=== PATIENT | male | born 1965 | race Caucasian/White ===

== ENCOUNTER 2024-06-17 08:25 | Emergency (ER) | payer BC, SELFPAY ==
[2024-06-17 08:47] VITALS: BP 138/74; PULSE 100; RESP 16; TEMP 36.9; O2SAT 96
--- NOTE | 2024-06-17 08:48 | ED.URI ---
HPI - URI/Sore Throat General Chief Complaint: Upper Respiratory Infection Stated Complaint: Chest and Head Cold Source: patient and RN notes reviewed Mode of arrival: ambulatory Limitations: no limitations History of Present Illness HPI Narrative: 59-year-old male presented for complaint of headache, body aches, sinus pressure/congestion, cough, fever/chills. Onset 2 days. Taking Mucinex and Sudafed. Denies sob, wheezing, n/v/d. Patient resides in [place] is traveling to [place] for hunting. elicited complaint: cough Related Data Allergies Allergy/AdvReac Type Severity Reaction Status Date / Time No Known Allergies Allergy Verified 06/17/24 08:49 Review of Systems Review of Systems: CONSTITUTIONAL: Endorses malaise, chills, sweats, fever EYES: Denies visual changes, redness, or discharge ENT: Reports rhinorrhea, congestion, sore throat CARDIOVASCULAR: Denies chest pain, palpitations, edema RESPIRATORY: Reports cough, post nasal drainage. Denies dyspnea GASTROINTESTINAL: Denies abdominal pain, nausea, vomiting, diarrhea MUSCULOSKELETAL: Endorses myalgia Exam Narrative: GENERAL: mildly Ill-appearing, nontoxic no acute distress. HEAD: Normocephalic EYES: PERRLA, conjunctivae clear ENT: Mucous membranes moist. Oropharynx not erythematous without lesions or exudate, no drooling, no hoarseness, no trismus, uvula midline. No tripod positioning, muffled voice, soft palate or pharyngeal wall bulging NECK: Supple. No lymphadenopathy CHEST: Clear to auscultation, breath sounds equal. No wheezing, rhonchi, rales, or stridor. No respiratory distress, speaks in full sentences. HEART: Regular rate and rhythm. No murmur heard. SKIN: Warm, dry, no rash. NEURO: Alert and oriented x3. PSYCH: Normal mood and affect Course Course Emergency Course: Patient is aware of diagnosis, understands and agrees to treatment plan. Anticipatory guidance given. Patient agrees to follow-up as directed and is aware of reasons to seek care at the emergency department. Portions of this record may have been created with voice recognition software Level of Care: Express Care Visit Vital Signs Vital signs: Vital Signs Temperature 98.5 F 06/17/24 08:47 Pulse Rate 100 06/17/24 08:47 Respiratory Rate 16 06/17/24 08:47 Blood Pressure 138/74 06/17/24 08:47 Pulse Oximetry 96 06/17/24 08:47 Temperature 98.5 F 06/17/24 08:47 Pulse Rate 100 06/17/24 08:47 Respiratory Rate 16 06/17/24 08:47 Blood Pressure 138/74 06/17/24 08:47 Pulse Oximetry 96 06/17/24 08:47 reviewed MDM - URI/Sore Throat MDM Narrative Medical decision making narrative: Discussed physical exam findings. POS flu, supportive measures and signs/symptoms to go to the ER. Pt is appropriate for outpt treatment and f/u. Differential Diagnosis Differential diagnosis: Likely upper respiratory infection, sinusitis and viral infection Lab Data Labs: Lab Results 06/17/24 06/17/24 06/17/24 Range/Units 08:50 08:51 08:52 POC Influenza A Ag Positive Positive (Negative) POC Influenza B Ag Negative Negative (Negative) POC SARS CoV-2 Ag Negative (Negative) Discharge Plan Discharge Clinical Impression: Influenza Patient Disposition: Home, Self-Care Condition: Stable Instructions: Influenza (ED) Additional Instructions: Influenza positive You should avoid crowds until you are fever free for 24 hours without the use of fever reducing medications, or the symptoms are improved Rest. Drink plenty of fluids. Tylenol 1000mg every 8 hours as needed for pain/fever Recommend Flonase spray and Zyrtec (or Claritin/Vale) for sinus pressure/congestion over the counter Cough syrup may cause drowsiness; avoid driving or take it at night time. Follow up with your primary care provider as needed in 3 days Go to the ER for worsening symptoms or concerns Patient Language: Bermudian Prescriptions: New prednisone 50 mg tablet 50 mg PO DAILY Qty: 5 0RF Follow-up/Referrals: UNKNOWN,DOCTOR [Primary Care Provider] - Time of Disposition: 09:02
[2024-06-17 08:53] LABS: EDINFLUASCREEN Positive (Negative); EDINFLUBSCREEN Negative (Negative)
[2024-06-17 08:53] LABS: EDINFLUASCREEN Positive (Negative); EDINFLUBSCREEN Negative (Negative)
[2024-06-17 08:54] LABS: EDCOVIDSCREEN Negative (Negative)
--- OUTSIDE RECORDS SUMMARY | 2024-06-24 04:34 | XMS_ITS | Encounter Summary ---
Author Organization [facility] Address [address] [place] [address] Care Team Providers Care Spark Plug Assembler Name Role Phone Juan Haddad MD Unavailable [phone] Trey Jennings MD Unavailable [phone] Txfr Provider Family [facility], Temporary Primary Care Provider Reason for Referral * Test/Procedure/Other (Routine) - Closed Specialty Diagnoses / Procedures Referred By Contac t Referred To Contact Diagnoses Thoracic spine pain Procedures MR THORACIC SPINE WO CONTRAST Andrew Staley PA-C [address] [place] [address] Phone: tel: fax: Group, Mri [address] [place] [address] Phone: tel: fax: Referral ID Status Reason Start Date Expiration Date Visits Re quested Visits Authorized [id number] Closed 01/27/2024 02/26/2024 1 1 * Test/Procedure/Other (Routine) - Closed Specialty Diagnoses / Procedures Referred By Contac t Referred To Contact Radiology Diagnoses Low back pain, unspecified back pain laterality, unspecified chronicity, unspecified whether sciatica present Procedures XR LUMBAR SPINE 2 OR 3 VW Andrew Staley PA-C [address] [place] [address] Phone: tel: fax: Referral ID Status Reason Start Date Expiration Date Visits Re quested Visits Authorized [id number] Closed 11/10/2023 11/09/2024 1 1 * Test/Procedure/Other (Routine) - Closed Specialty Diagnoses / Procedures Referred By Contcarlie t Referred To Contact Radiology Diagnoses Low back pain, unspecified back pain laterality, unspecified chronicity, unspecified whether sciatica present Procedures XR THORACIC SPINE 2 VW Andrew Staley PA-C [address] [place] [address] Phone: tel: fax: Referral ID Status Reason Start Date Expiration Date Visits Re quested Visits Authorized [id number] Closed 11/10/2023 11/09/2024 1 1 Reason for Visit * Reason Comments Back Pain Encounter Details Date Type Department Care Team (Latest Contact Info) Description 11/10/2023 11:30 AM EDT Office Visit [facility] [address] [place] [address] Andrew Staley PA-C [address] [place] [address] Chronic pain syndrome (Primary Dx); Low back pain, unspecified back pain laterality, unspecified chronicity, unspecified whether sciatica present; Thoracic spine pain Discharge Disposition: Home/Self Care Social History Tobacco Use Types Packs/Day Years Used Date Smoking Tobacco: Never Smokeless Tobacco: Current Chew Comments:chewing tobacco 2 c ans/week Alcohol Use Standard Drinks/Week Comments No 0 (1 standard drink = 0.6 oz pur e alcohol) Social Connection and Isolation Panel [NHANES] A nswer Date Recorded Frequency of Communication with Friends and Fami ly Not on file 09/30/2020 Frequency of Social Gatherings with Friends and Family Not on file 09/30/2020 Attends Cheondoism Services Not on file 09/30 Active Member of Clubs or Organizations Not on f ile 09/30/2020 Attends Club or Organization Meetings Not on brianna e 09/30/2020 Are you , , di vorced, , never , or living with a partner? 09/30/2020 AUDIT-C Answer Date Recorded Q1: How often do you have a drink containing alc ohol? Never 03/03/2021 Average Number of Drinks Not on file 021 Q3: How often do you have si x or more drinks on one occasion? Never 03/03/2021 PRAPARE - Transportation Answer Date Re corded In the past 12 months, has l ack of transportation kept you from medical appointments or from getting medications? No 05/20 In the past 12 months, has l ack of transportation kept you from meetings, work, or from getting things needed for daily living? No 06/07/2020 Intimate Partner Violence Answer Date R ecorded Within the last year, have y ou been afraid of your partner, ex-partner or family member? Not on file 10/02/2023 Within the last year, have y ou been humiliated or emotionally abused in other ways by your partner, ex-partner or family member? Not on file 10/02/2023 Within the last year, have y ou been kicked, hit, slapped, or otherwise physically hurt by your partner, ex-partner or family member? Not on file 10/02/2023 Within the last year, have y ou been raped or forced to have any kind of sexual activity by your partner, ex-partner or family member? Not on file 10/02/2023 Depression Answer Date Recorded PHQ-9 Total Score 5 06/07/2020 Sex and Gender Information Value Date Recorded Sex Assigned at Not on file Legal Sex Male 11:25 PM EST Gender Identity Male 11/21/2019 7:11 PM EDT Sexual Orientation Not on file documented as of this encounter Last Filed Vital Signs Vital Sign Reading Time Taken Comments Blood Pressure - - Pulse - - Temperature - - Respiratory Rate - - Oxygen Saturation - - Inhaled Oxygen Concentration - - Weight 92.1 kg (203 lb) 11/10/2023 11:39 AM EDT Height 182.9 cm (6') 11/10/2023 11:39 AM EDT Body Mass Index 27.53 11/10/2023 11:39 AM EDT documented in this encounter Progress Notes * Andrew Staley PA-C - 11/10/2023 11:38 AM EDT Subjective: ?? How long has the patient had pain: Chronic ?? Patient currently working: Yes : ?? Restrictions: Yes ?? Preferred Imaging Location:[facility] Site ?? Most Recent Imaging(Xray,MRI,CT, EMG): Location/Date: MRI T spine 09/22/21 MRI Gr[facility] ?? Urinary Incontinence No ?? Pacemaker Y/N: No ?? Metal Hardware/SCS/Implant/BRAND Y/N: No ?? Physical Therapy Dedicated to Spine: Chiropractic treatment at [facility] [address]i [place] ?? Injections Y/N, location/dates: No ?? NSAIDS: No Current prescriptions, [id number]-gyi-[id number] medications, herbal medications and vitamin/mineral/dietarysupplements have been documented during this encounter. A follow-up plan for the treatment of the patient's pain was documented. Interpretor services required? No HPI 58 year old patient who presents with a history of chronic thoracic back pain with associated bilateral lower ribcage pain and has known thoracic spondylotic disease from an MRI in 2021. The patient has been undergoing regular healthcare analyst at [facility] for over a year without significant relief. The patient denies any thoracic pain management treatments order thoracic spinal surgery. Past Medical History: Diagnosis Date ??? Adenoma of left adrenal gland ??? Asthma ??? Lyme disease ??? SI (sacroiliac) joint inflammation (CMS/HCC) 08/06/2021 Past Surgical History: Procedure Laterality Date ??? ENDOSCOPY, ESOPHAGUS 04/22/2016 ??? HX CARPAL TUNNEL RELEASE Right 03/02/2018 Procedure: DECOMPRESSION NERVE MEDIAN CARPAL TUNNEL RELEASE: Carpal Tunnel Release; Surgeon: Devante Portillo DO; Location: [facility]; Laterality: Right; ??? HX CARPAL TUNNEL RELEASE Left 03/23/2018 Procedure: DECOMPRESSION NERVE MEDIAN CARPAL TUNNEL RELEASE: Carpal Tunnel Release; Surgeon: Devante Portillo DO; Location: [facility]; Laterality: Left; ??? HX COLONOSCOPY 04/22/2016 ??? HX CYST REMOVAL approx 2016 beneath eye-done at MD office w/ local anesthesia ??? HX DECOMPRESSION NERVE CUBITAL TUNNEL RELEASE Left 03/23/2018 Procedure: DECOMPRESSION NERVE CUBITAL TUNNEL RELEASE: Cubital Tunnel Release; Surgeon: Devante Portillo DO; Location: [facility]; Laterality: Left; Family History Problem Relation Age of Onset ??? Cancer Mother 67 colon Review of Systems Constitutional: Negative for chills, diaphoresis and fever. HENT: Positive for tinnitus. Negative for congestion, ear discharge, ear pain, hearing loss, nosebleeds, sinus pain and sore throat. Eyes: Negative for photophobia, pain, discharge and redness. Respiratory: Negative for cough, shortness of breath, wheezing and stridor. Cardiovascular: Negative for chest pain, palpitations and leg swelling. Gastrointestinal: Positive for abdominal pain. Negative for blood in stool, constipation, diarrhea,nausea and vomiting. Genitourinary: Positive for flank pain. Negative for dysuria, frequency, hematuria and urgency. Musculoskeletal: Positive for back pain, myalgias and neck pain. Skin: Negative for rash. Neurological: Negative for dizziness, tremors, seizures, weakness and headaches. Endo/Heme/Allergies: Negative for environmental allergies and polydipsia. Does not bruise/bleed easily. Psychiatric/Behavioral: Negative for hallucinations and suicidal ideas. The patient is not nervous/anxious. Future appointments already scheduled: No future appointments. Objective: Objective Vitals: Visit Vitals Ht 1.829 m (6') Wt 92.1 kg (203 lb) BMI 27.53 kg/m?? Physical Exam Full strength throughout lower extremities bilaterally. Ambulating without any assistive devices. No clonus Diagnostic Data: MRI thoracic spine 09/22/2021: ???There are 12 thoracic segments. The thoracic vertebrae maintain their stature and have a normal T1 and T2 appearance. No compression fractures are seen. There is a mild thoracic scoliosis with the convexity towards the RIGHT. Thereare multilevel degenerative changes more so in the mid to lower dorsal spine. The thoracic cord has a normal T1 and T2 appearance. No cord compression or intrinsic thoracic cordabnormality is present. There are slight annular bulges at T2-T3 and T3-T4 and on the RIGHT side atT6-T7 and minimally at T7-T8. There are prominent annular bulges seen at T8-T9, T9-T10 and T10-T11.I do not see any paraspinal soft tissue masses. IMPRESSION: ?? Multilevel degenerative changes with mild scoliosis. No compression fractures are seen. There are extradural defects seen at multiple levels a little more so at T8-T9 through T10-T11. These representdisc bulges. Assessment & Plan: Will order an x-ray of the patient's thoracic spine and x-ray of the patient's lumbar spine as wellas an MRI of the patient's thoracic spine to further evaluate the patient's symptoms. Patient will follow-up at the next available appointment to review these imaging studies in detail and develop the plan of care. The patient stated understanding and agreement with this treatment plan. Psychometric testing was performed today using Spine Impact CAT in order to assess the contributions of psychogenic factors to the patient's pain complaints so as to guide medication management and other treatment modalities. Psychological factors can compound their pain interference and physical dy sfunction. Approximately 15 minutes was spent for psychometric testing/interpreting results. documented in this encounter Plan of Treatment Scheduled Orders Name Type Priority Associated Diagnoses Orde r Schedule ID PSYL/NRPSYCL TST PHYS/QHP 2+ TST 1ST 30 MIN Procedures Routine Chronic pain syndrome Ordered: 11/10/2023 documented as of this encounter Goals Goal Patient Goal Type Associated Problems Recent Progress Patient-Stated? Author Blood Pressure < 140/90 Blood Pressure 160/96( 024 8:13 AM EDT) Kilo Mora MD documented as of this encounter Results * MR THORACIC SPINE WO CONTRAST (02/15/2024 11:25 AM EDT) Workstation ID Dictating [facility] Anatomical Region Laterality Modality T-Spine Magnetic Resonan ce 02/15/2024 10:3 4 AM EDT Impressions 02/15/2024 1:08 PM EDT Mild dextroscoliosis. Mild endplate degeneration and edema at T8-T9 and T9-T10. Degenerative changes of the thoracic spine with multilevel disc bulging and facet hypertrophy. Several levels of mild spinal canal stenosis. Multilevel neural foraminal narrowing. This is exacerbated by the scoliotic curvature. Overall, findings are mildly progressed since 2021. Narrative 02/15/2024 1:08 PM EDT MRI OF THE THORACIC SPINE HISTORY: 58-year-old with mid thoracic back pain. No injury. COMPARISON: Thoracic radiograph 11/15/2023 MRI 09/22/2021. TECHNIQUE: Multiplanar multisequence MR imaging of the thoracic spine was performed without contrast. CONTRAST: None FINDINGS: There are 12 thoracic segments. Mild dextroscoliosis of the thoracic spine. No significant spondylolisthesis. Vertebral bodies are normal in height and signal intensity. No suspicious marrow lesions. Diffuse intervertebral disc height narrowing signal abnormality, greatest at T8- T9 and T9-T10 with mild endplate degeneration and edema ?? Multilevel degenerative changes of the thoracic spine with small multilevel disc bulges and mild facet hypertrophy. There are a few levels of mild spinal canal narrowing including T2-T3, T7-T8, and T8-T9. Several levels of neural foraminal narrowing, greater on the RIGHT at T2-T3 and T3-T4 and greater on the LEFT from T8-T9 through T10-T11. Overall, findings appear mildly progressed since 2021. Thoracic spinal cord is normal. ?? Procedure Note Juan Couch MD - 02/15/2024 MRI OF THE THORACIC SPINE HISTORY: 58-year-old with mid thoracic back pain. No injury. COMPARISON: Thoracic radiograph 11/15/2023 MRI 09/22/2021. TECHNIQUE: Multiplanar multisequence MR imaging of the thoracic spine wasperformed without contrast. CONTRAST: None FINDINGS: There are 12 thoracic segments. Mild dextroscoliosis of the thoracic spine. No significant spondylolisthesis. Vertebral bodies are normal in height and signal intensity. No suspicious marrow lesions. Diffuse intervertebral disc height narrowing signal abnormality, greatestat T8- T9 and T9-T10 with mild endplate degeneration and edema Multilevel degenerative changes of the thoracic spine with smallmultilevel disc bulges and mild facet hypertrophy. There are a few levelsof mild spinal canal narrowing including T2-T3, T7-T8, and T8-T9. Severallevels of neural foraminal narrowing, greater on the RIGHT at T2-T3 andT3-T4 and greater on the LEFT from T8-T9 through T10-T11. Overall, findings appear mildly progressed since 2021. Thoracic spinal cord is normal. Impression: Mild dextroscoliosis. Mild endplate degeneration and edema at T8-T9 and T9-T10. Degenerative changes of the thoracic spine with multilevel disc bulgingand facet hypertrophy. Several levels of mild spinal canal stenosis.Multilevel neural foraminal narrowing. This is exacerbated by thescoliotic curvature. Overall, findings are mildly progressed since 2021. us Andrew SIDDIQI-Taisha YAO RIS MR ORDERABLES Final Res ult * XR LUMBAR SPINE 2 OR 3 VW (11/15/2023 8:01 AM EDT) Workstation ID Dictating Workstation: [facility] Anatomical Region Laterality Modality L-Spine Computed Radiogr aphy 11/15/2023 7:52 AM EDT Impressions 11/15/2023 12:05 PM EDT Please refer to the report of thoracic spine radiographs 11/15/2023 Narrative Procedure Note Chato Shaw MD - 11/15/2023 Impression: Please refer to the report of thoracic spine radiographs11/15/2023 us Andrew SIDDIQI-Taisha LG RIS DIAG IMAGING ORDERABLES Final Result * XR THORACIC SPINE 2 VW (11/15/2023 8:01 AM EDT) Workstation ID Dictating Workstation: [facility] Anatomical Region Laterality Modality T-Spine Computed Radiogr aphy 11/15/2023 7:52 AM EDT Impressions 11/15/2023 12:04 PM EDT No acute radiographic findings. Degenerative changes throughout the lumbar spine, greatest at L5-S1. Mild to moderate coronal plane thoracolumbar curvature. Narrative 11/15/2023 12:04 PM EDT HISTORY: Back pain with turning/twisting. TECHNIQUE: Erect AP and lateral views of the thoracic and lumbar spine. COMPARISON: MRI thoracic spine 09/22/2021, thoracic spine radiographs 08/05/2021 FINDINGS: There are 12 thoracic and 5 lumbar vertebral segments. ALIGNMENT: Mild to moderate S-shaped coronal plane curvature. No sagittal plane listhesis. VERTEBRAL BODY HEIGHTS: Mild chronic loss of height of the superior endplate of L2. No findings of acute height loss. INTERVERTEBRAL DISC SPACES: Thoracic levels are relatively preserved. Narrowing throughout the lumbar levels which is most advanced at L5-S1, associated with large anterior endplate osteophytes. POSTERIOR ELEMENTS: Mid to lower lumbar facet arthrosis. Grossly intact. OTHER OSSEOUS STRUCTURES: Unremarkable. LUNG SUERO/MEDIASTINUM/ABDOMEN: Atherosclerotic calcifications. Procedure Note Chato Shaw MD - 11/15/2023 HISTORY: Back pain with turning/twisting. TECHNIQUE: Erect AP and lateral views of the thoracic and lumbar spine. COMPARISON: MRI thoracic spine 09/22/2021, thoracic spine radiographs08/05/2021 FINDINGS: There are 12 thoracic and 5 lumbar vertebral segments. ALIGNMENT: Mild to moderate S-shaped coronal plane curvature. No sagittalplane listhesis. VERTEBRAL BODY HEIGHTS: Mild chronic loss of height of the superiorendplate of L2. No findings of acute height loss. INTERVERTEBRAL DISC SPACES: Thoracic levels are relatively preserved.Narrowing throughout the lumbar levels which is most advanced at L5-S1,associated with large anterior endplate osteophytes. POSTERIOR ELEMENTS: Mid to lower lumbar facet arthrosis. Grossly intact. OTHER OSSEOUS STRUCTURES: Unremarkable. LUNG SUERO/MEDIASTINUM/ABDOMEN: Atherosclerotic calcifications. Impression: No acute radiographic findings. Degenerative changes throughout the lumbarspine, greatest at L5-S1. Mild to moderate coronal plane thoracolumbarcurvature. Andrew Staley PA-C RIS DIAG IMAGING ORDERABLES Final Result documented in this encounter Visit Diagnoses Diagnosis Chronic pain syndrome- Primary Low back pain, unspecified back pain laterality, unspecified chronicity, unspecified whether sciatica present Thoracic spine pain Pain in thoracic spine Low back pain, unspecified back pain laterality, unspecified chronicity, unspecified whether sciatica present Thoracic spine pain Pain in thoracic spine documented in this encounter Care Teams Spark Plug Assembler Relationship Specialty Start Date End Date Txfr Provider Family Medicine [place], Temporary [address] [place] [id number] PCP - General Family Practice 07/11/23 12/11/23 Juan Haddad MD [address] [facility] [place] [address] Otolaryngology 09/23/17 Trey Jennings MD [address] [facility] [address] [place] [address] [facility] Specialist Cardiothoracic Surgery 06/27/22 documented as of this encounter
--- OUTSIDE RECORDS SUMMARY | 2024-06-24 04:34 | XMS_ITS | Encounter Summary ---
Author Organization [facility] alth Address [address] [place] [address] Care Team Providers Care School Examiner Name Role Phone Juan Haddad MD Unavailable [phone] Trey Jennings MD Unavailable [phone] Matthew Del Toro MD Primary Care Provider [phone] Reason for Visit * Reason Comments Back Pain Recheck Encounter Details Date Type Department Care Team (Latest Contact Info) Description 03/05/2024 1:40 PM EDT Office Visit [facility] [address] [place] [address] Andrew Staley PA-C [address] [place] [address] Low back pain, unspecified back pain laterality, unspecified chronicity, unspecified whether sciatica present (Primary Dx); Thoracic spine pain Discharge Disposition: Home/Self Care Social History Tobacco Use Types Packs/Day Years Used Date Smoking Tobacco: Never Smokeless Tobacco: Current Chew Tobacco Cessation:Ready to Q uit: Not Asked; Counseling Given: Not Answered Comments:chewing tobacco 2 cans/week Alcohol Use Standard Drinks/Week Comments No 0 (1 standard drink = 0.6 oz pur e alcohol) Social Connection and Isolation Panel [NHANES] A nswer Date Recorded Frequency of Communication with Friends and Fami ly Not on file 09/30/2020 Frequency of Social Gatherings with Friends and Family Not on file 09/30/2020 Attends [employer] Services Not on file 09/30 Active Member [...] - Inhaled Oxygen Concentration - - Weight 91.6 kg (202 lb) 03/05/2024 1:46 PM EDT Height 182.9 cm (6') 03/05/2024 1:46 PM EDT Body Mass Index 27.4 03/05/2024 1:46 PM EDT documented in this encounter Progress Notes * Andrew Staley PA-C - 03/05/2024 1:48 PM EDT Subjective: Subjective HPI 58 year old patient presents for follow up regarding thoracic back pain and low back pain. The patient follows up to review a thoracic MRI from February 07, 2024, thoracic and lumbar x-rays from October of 2023 Patient states that they are thoracic back pain which is chronic with associated bilateral ribcage pain which is worse with certain movements the patient's trunk. The patient has been undergoing regular acute care physician but has not pain management treatments orspinal surgery for his thoracic and lumbar symptoms. The patient denies neurological deficits or symptoms of cervical myelopathy. MRI of the patient's thoracic spine from 02/15/2024 was reviewed with the patient and does not showany severe spinal canal stenosis but does show sclerotic/Mobic endplate changes at T8-9 and T9-10. There are several levels of neural foraminal narrowing greater on the right at T2-3 and T3-4 and greater on the left at T8-T9 through T10-T11. Please see below for the findings reading radiologist. Of note, the oil well service operator image on thoracic MRI did show disc desiccation and disc bulging in the cervicalspine without severe spinal canal stenosis at this point but no dedicated cervical imaging has beenobtained. The patient was advised to monitor for any symptoms of cervical myelopathy and inform ouroffice immediately if these develop. The patient underwent a x-ray of the lumbar spine on 11/07/2023 this showed significant scoliosis lumbar spine as well as advanced degenerative changes throughout the lumbar spine. At this point, the patient states that he is quite physically active and walks several miles at a time in his preparing for a [employer] for [employer] in [place] in the near future. The patient was advised tomodify his activity during this hunting trip.. Past Medical History: Diagnosis Date Adenoma of left adrenal gland Asthma Lyme disease SI (sacroiliac) joint inflammation (CMS/HCC) 08/06/2021 Past Surgical History: Procedure Laterality Date ENDOSCOPY, ESOPHAGUS 04/22/2016 HX CARPAL TUNNEL RELEASE Right 03/02/2018 Procedure: DECOMPRESSION NERVE MEDIAN CARPAL TUNNEL RELEASE: Carpal Tunnel Release; Surgeon: Devante Portillo DO; Location: [facility] OR; Laterality: Right; HX CARPAL TUNNEL RELEASE Left 03/23/2018 Procedure: DECOMPRESSION NERVE MEDIAN CARPAL TUNNEL RELEASE: Carpal Tunnel Release; Surgeon: Devante Portillo DO; Location: [facility] OR; Laterality: Left; HX COLONOSCOPY 04/22/2016 HX CYST REMOVAL approx 2016 beneath eye-done at MD office w/ local anesthesia HX DECOMPRESSION NERVE CUBITAL TUNNEL RELEASE Left 03/23/2018 Procedure: DECOMPRESSION NERVE CUBITAL TUNNEL RELEASE: Cubital Tunnel Release; Surgeon: Devante Portillo DO; Location: [facility] OR; Laterality: Left; Family History Problem Relation Age of Onset Cancer Mother 67 colon ROS Future appointments already scheduled: No future appointments. Objective: Objective Vitals: Visit Vitals Ht 1.829 m (6') Wt 91.6 kg (202 lb) BMI 27.40 kg/m?? Physical Exam Full strength throughout lower extremities bilaterally. Ambulating without any assistive devices. No abnormal gait. No clonus at the ankles. The patient is clear and fluent. Normal affect. Diagnostic Data: X-ray thoracic and lumbar spine 11/07/2023: ??? There are 12 thoracic and 5 lumbar [...] OSSEOUS STRUCTURES: Unremarkable. LUNG SUERO/MEDIASTINUM/ABDOMEN: Atherosclerotic calcifications. MRI thoracic spine without contrast 02/07/2024: ???Mild dextroscoliosis of the thoracic spine. No significant [...] 2021. Thoracic spinal cord is normal. ?? Assessment & Plan: 58 year old patient with advanced thoracic degenerative disc disease and with advanced lumbar spondylotic disease as well as lumbar scoliosis without neurological deficits or symptoms of cervical myelopathy. We discussed pain management modalities such as epidural steroid injections and radiofrequency ablations of the patient will review these options and call our office if he would like to pursue. Patient's plan of care is to be determined and we will see patient back on as needed basis. Patientstated understanding and agreement with this plan of care and was advised to contact our office with any worrisome symptoms or worsening symptoms. * Gautam Gr - 03/05/2024 1:45 PM EDT How long has the patient had pain: Chronic Patient currently working: Yes Restrictions: Yes Preferred Imaging Location:[facility] Site Most Recent Imaging(Xray,MRI,CT, EMG): Location/Date: 02/15/[address] [facility] 11/15/23 t & l xrS [facility] MRI T spine 09/22/21 MRI Grp Urinary Incontinence No Pacemaker Y/N: No Metal Hardware/SCS/Implant/BRAND Y/N: No Physical Therapy Dedicated to Spine: Chiropractic treatment at [facility] over a year Dr Gui Atwood Injections Y/N, location/dates: No NSAIDS: No Current prescriptions, [id number] medications, herbal medications and vitamin/mineral/dietarysupplements have been documented during this encounter. A follow-up plan for the treatment of the patient's pain was documented. Interpretor services required? No documented in this encounter Plan of Treatment Not on file documented as of this encounter Goals Goal Patient Goal Type Associated Problems Recent Progress Patient-Stated? Author Blood Pressure < 140/90 Blood Pressure 160/96( 024 8:13 AM EDT) Kilo Mora MD documented as of this encounter Visit Diagnoses Diagnosis Low back pain, unspecified back pain laterality, unspecified chronicity, unspecified whether sciatica present- Primary Thoracic spine pain Pain in thoracic spine documented in this encounter Care Teams School Examiner Relationship Specialty Start Date End Date Matthew Del Toro MD [address] [facility] [address] [place] [address] PCP - General Family Practice 12/12/23 Juan Haddad MD [address] [facility] [place] [address] Otolaryngology 09/23/17 Trey Jennings MD [address] [facility] [address] [place] [address] [facility] Specialist Cardiothoracic Surgery 06/27/22 documented as of this encounter
--- OUTSIDE RECORDS SUMMARY | 2024-06-24 04:34 | XMS_ITS | Encounter Summary ---
Author Organization [facility] alth Address [address] [place] [address] Care Team Providers Care Associate Business Analyst Name Role Phone Juan Haddad MD Unavailable [phone] Trey Jennings MD Unavailable [phone] Matthew Del Toro MD Primary Care Provider Reason for Referral * New Consult/Second Opinion (Routine) - Closed Specialty Diagnoses / Procedures Referred By Contac t Referred To Contact Plastic Surgery Diagnoses Skin mass Matthew Del Toro MD [address] [facility] [address] [place] [address] Phone: tel: fax: Plastic & Cosmetic Surgery [address] [place] [address] Phone: tel: fax: Referral ID Status Reason Start Date Expiration Date V isits Requested Visits Authorized [id number] Closed Co-managemen t Until Stable 12/12/2023 12/11/2024 1 1 Comments Clinical Question: 2cm cystic mass LEFT forearm Reason for Visit * Reason Comments Derm Problem Lump on L arm about 1.5 months Encounter Details Date Type Department Care Team ([facility] Contact Info) Description 12/12/2023 4:00 PM EDT Office Visit [facility] Line [address] [facility] [address] [place] [address] Matthew Del Toro MD [address] [facility] [address] [place] [address] Skin mass (Primary Dx) Discharge Disposition: Home/Self Care Social History Tobacco [...] and Family Not on file 09/30/2020 Attends [employer] Services Not on file 09/30 Active Member [...] Sign Reading Time Taken Comments Blood Pressure 138/74 12/12/2023 3:59 PM EDT Pulse 78 12/12/2023 3:59 PM EDT Temperature - - Respiratory Rate - - Oxygen Saturation 98% 12/12/2023 3:59 PM EDT Inhaled Oxygen Concentration - - Weight 91.2 kg (201 lb) 12/12/2023 3:59 PM EDT Height - - Body Mass Index 27.26 11/10/2023 11:39 AM EDT documented in this encounter Progress Notes * Matthew Del Toro MD - 12/12/2023 4:09 PM EDT Assessment and Plan 1. Skin mass - AMB REFERRAL TO [facility]LAST[facility] COSMETIC SURGERY I think it is a sebaceous cyst. We will refer to plastic surgery for excision. He would like to do so after his upcoming vacation. . Subjective Person Accompanying : No one Chief Complaint Patient presents with Derm Problem Lump on L arm about 1.5 months He has had least 6 weeks of a mass on his left forearm. No known trauma. Not particularly painful. No drainage. HPI Review of Systems . Social Determinants of Health: Tobacco Use Never Smokeless Tobacco: Current user of smokeless tobacco; Types: Chew. Comments: chewing tobacco 2 cans/week Vaping Use Never used Future appointments already scheduled: Future Appointments Date Time Provider Department Center 01/17/2024 11:40 AM Andrew Staley PA-C [facility] Objective Vitals: 12/12/23 1559 BP: 138/74 Pulse: 78 SpO2: 98% Weight: 91.2 kg (201 lb) Cuff Size: Regular Position: Sitting Body mass index is 27.26 kg/m??. Physical Exam . Subcutaneous mass left forearm, 2.5 cm. Does not appear to be attached to underlying 10 to use ormuscle. Does seem to be attached to the overlying skin.. There may be a small puncta eccentrically placed to the proximal end of the cyst. No warmth or erythema. Chart Review: Chart Sections reviewed by provider: Tobacco Allergies Meds Problems Med Hx Surg Hx Fam Hx documented in this encounter Plan of Treatment Scheduled Referrals Name Type Priority Associated Diagnoses Orde r Schedule AMB REFERRAL TO [facility] PLASTIC [facility] COSMETIC SURGERY Outpatient Referral Routine Skin mass Ordered: 12/12/2023 documented as of this encounter Goals Goal Patient Goal Type Associated Problems Recent Progress Patient-Stated? Author Blood Pressure < 140/90 Blood Pressure 160/96( 024 8:13 AM EDT) Kilo Mora MD documented as of this encounter Visit Diagnoses Diagnosis Skin mass- Primary Localized superficial swelling, mass, or lump documented in this encounter Care Teams Associate Business Analyst Relationship Specialty Start Date End Date Matthew Del Toro MD [address] [facility] [address] [place] [address] PCP - General Family Practice 12/12/23 [place] [address] [place] [address] [place] [address] Otolaryngology 09/23/17 Trey Jennings MD [address] [facility] [address] [place] [address] [facility] Specialist Cardiothoracic Surgery 06/27/22 documented as of this encounter
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
--- OUTSIDE RECORDS SUMMARY | 2024-06-24 04:34 | XMS_ITS | Encounter Summary ---
Author Organization [facility] Address [address] [facility] [address] Care Team Providers Care Library Assistant Name Role Phone Provider, Miki RICHARDS Primary Care Provider Un available Encounter Details Date Type Department Care Team (Latest Contact Info) Description 10/08/2013 7:03 PM EDT Hospital Encounter [facility] [address] [place] [address] Matt Carey MD Provider, MD Miki None Backache, unspecified; Other chest pain Discharge Disposition: Home or Self Care Social History Tobacco Use Types Packs/Day Years Used Date Smoking Tobacco: Never Assessed Sex and Gender Information Value Date Recorded Sex Assigned at Not on file Legal Sex Male 10:24 PM EDT Gender Identity Not on file Sexual Orientation Not on file documented as of this encounter Plan of Treatment Not on file documented as of this encounter Procedures Procedure Name Priority Date/Time Associated Diagnosis Comments XR CHEST 2 VIEWS Routine 10/08/2013 7:56 PM EDT documented in this encounter Results * XR CHEST 2 VIEWS (10/08/2013 7:56 PM EDT) Anatomical Region Laterality Modality Chest Computed Radiogr aphy 10/08/2013 7:56 PM EDT Narrative 10/09/2013 7:44 AM EDT ?? HISTORY: ?? Right lateral chest pain. ? TECHNIQUE: ?? Two views of the chest were obtained. ? COMPARISON: ?? None. ? FINDINGS: ?? The heart is normal in size and configuration. Lungs are clear. I do not see ?? infiltrate or effusion. I do not see congestive heart failure. ? IMPRESSION: ?? No active disease in the chest. ?? Procedure Note Provider, MD Miki / Steven Kinney MD - 10/30/2016 HISTORY: Right lateral chest pain. TECHNIQUE: Two views of the chest were obtained. COMPARISON: None. FINDINGS: The heart is normal in size and configuration. Lungs are clear. I do notsee infiltrate or effusion. I do not see congestive heart failure. IMPRESSION: No active disease in the chest. us Matt Carey MD IMG XR PROCEDURES Final Resu lt documented in this encounter Visit Diagnoses Diagnosis Backache, unspecified Other chest pain documented in this encounter Care Teams Library Assistant Relationship Specialty Start Date End Date Provider, Miki, None PCP - General 10/08/13 10/15/13 documented as of this encounter
--- OUTSIDE RECORDS SUMMARY | 2024-06-24 04:34 | XMS_ITS | Encounter Summary ---
Author Organization [facility] alth Address [address] [place] [address] Care Team Providers Care Healthcare Management Name Role Phone Juan Haddad MD Unavailable [phone] Trey Jennings MD Unavailable [phone] Matthew Del Toro MD Primary Care Provider [phone] Reason for Visit * Reason Comments New Patient Eval mass of left fo rearm * New Consult/Second Opinion (Routine) - Closed Specialty Diagnoses / Procedures Referred By Contac t Referred To Contact Plastic Surgery Diagnoses Skin mass Matthew Del Toro MD [address] [facility] [address] [place] [address] Phone: tel: fax: Plastic & Cosmetic Surgery [address] [place] [address] Phone: tel: fax: Referral ID Status Reason Start Date Expiration Date V isits Requested Visits Authorized [id number] Closed Co-managemen t Until Stable 12/12/2023 12/11/2024 1 1 Encounter Details Date Type Department Care Team ([facility] st Contact Info) Description 12/30/2023 8:30 AM EDT Office Visit Plastic & Cosmetic Surgery [address] [place] [address] Arturo Mark MD [address] [place] [address] Subcutaneous mass of left forearm (Primary Dx) Discharge Disposition: Home/Self Care Social [...] and Family Not on file 09/30/2020 Attends [employer] Services Not on file 09/30 Active Member [...] Sign Reading Time Taken Comments Blood Pressure 160/96 12/30/2023 8:13 AM EDT Pulse 64 12/30/2023 8:13 AM EDT Temperature - - Respiratory Rate - - Oxygen Saturation - - Inhaled Oxygen Concentration - - Weight 94.5 kg (208 lb 6.4 oz) 12/30/2023 8:13 A M EDT Height 182.9 cm (6') 12/30/2023 8:13 AM EDT Body Mass Index 28.26 12/30/2023 8:13 AM EDT documented in this encounter Progress Notes * Arturo Mark MD - 12/30/2023 8:30 AM EDT OFFICE OPERATIVE NOTE Patient's Name: Carter Alexis Jr. Date of Surgery: 12/30/2023 Preoperative diagnosis: Left forearm subfascial mass Operation: Excision of left forearm subfascial mass 1.5 cm x 1.5 cm with intermediate closure 3 cm Postoperative diagnosis: Same Surgeon: Arturo Mark MD, TERESITA, FACS Anesthesia: Local Lidocaine 1% with epinephrine 1:100,000 Estimated Blood Loss: minimal Drains: none Pathology: Pending, Indications for Procedure: The patient has a changing enlarging subcutaneous mass that possibly occurred after a fishing incident. Operative Procedure: The patient was properly identified along with the surgical site. The risks, benefits and alternatives were discussed with the patient. These include but are not limited to infection, bleeding, scarring, need for reoperation or reexcision of surgical margins. The consent was completed scanned chart. The patient was placed supine on the table and the margin for excision was marked and injected with local anesthetic after the skin was cleaned with an alcohol wipe. At this point chlorhexidine was used to clean the surgical site and sterile drapes were placed. 15 blade scalpel was used to make a longitudinal incision overlying the mass. Dissection was undertaken through the skin and subcutaneous tissue down to the mass. It was associated with the fascia and extended below it. We then used electrocautery and tenotomy scissors to remove the mass. We viewedthe underlying muscle with our dissection. We then started rolling it over and at that point a thorn was visible that we then removed. We finished removing the mass and sent the mass to pathology anddisposed of the thorn. We then stopped all bleeding with electrocautery. We then had the underminedslightly and closed the skin in a multilayer fashion with 5 0 Monocryl and 4-0 plain gut. We then placed Dermabond over the skin. The patient tolerated the procedure well, was given wound care instructions, and was discharged from the office in good condition. Arturo Mark MD, TERESITA, FACS * Arturo Mark MD - 12/30/2023 8:30 AM EDT Impression and Plan Impression: Subcutaneous mass that is stuck down not associated with the skin or subcutaneous tissue Plan: We will plan for excision and send it to pathology for evaluation. Talked to him in great detail about the risks benefits alternatives. This includes the fact that we may have to go back and take more if necessary. . Subjective Chief Complaint Patient presents with New Patient Eval mass of left forearm HPI Carter Alexis . is a 58 y.o. male who presents with subcutaneous mass. It has been present for 3months and slowly enlarging. No itching or pain, no bleeding. He thinks it while he was fishing he cut it or got something into it. It enlarged over that night into the next morning and stayed about the same size ever since Patient has a history of sun exposure and sun blackburn. No History of prior skin cancer. Patient Active Problem List Diagnosis Date Noted Thoracic aortic aneurysm without rupture (CMS/HCC) 03/10/2020 Priority: Medium Serrated polyp of colon 07/02/2019 Priority: Medium Colonoscopy in JUN 2022 Left carpal tunnel syndrome 03/21/2018 Priority: Medium Right carpal tunnel syndrome 03/02/2018 Priority: Medium Congenital absence of left kidney 02/13/2018 Priority: Medium Lyme disease 02/13/2018 Priority: Medium Cubital tunnel syndrome on left 01/26/2018 Priority: Medium Occipital neuralgia of right side 08/30/2016 Priority: Medium Bilateral carpal tunnel syndrome 08/30/2016 Priority: Medium Anxiety Priority: Medium Tubular adenoma of colon. Repeat colonoscopy in APR 2019 04/27/2016 Priority: Medium Essential hypertension 08/28/2012 Priority: Medium Asthma 08/28/2012 Priority: Medium Past Medical History: Diagnosis Date Adenoma of left adrenal gland Asthma Lyme disease SI (sacroiliac) joint inflammation (CMS/HCC) 08/06/2021 Past Surgical History: Procedure Laterality Date ENDOSCOPY, ESOPHAGUS 04/22/2016 HX CARPAL TUNNEL RELEASE Right 03/02/2018 Procedure: DECOMPRESSION NERVE MEDIAN CARPAL TUNNEL RELEASE: Carpal Tunnel Release; Surgeon: Devante Portillo DO; Location: [facility]; Laterality: Right; HX CARPAL TUNNEL RELEASE Left 03/23/2018 Procedure: DECOMPRESSION NERVE MEDIAN CARPAL TUNNEL RELEASE: Carpal Tunnel Release; Surgeon: Devante Portillo DO; Location: [facility]; Laterality: Left; HX COLONOSCOPY 04/22/2016 HX CYST REMOVAL approx 2015 beneath eye-done at MD office w/ local anesthesia HX DECOMPRESSION NERVE CUBITAL TUNNEL RELEASE Left 03/23/2018 Procedure: DECOMPRESSION NERVE CUBITAL TUNNEL RELEASE: Cubital Tunnel Release; Surgeon: Devante Portillo DO; Location: [facility]; Laterality: Left; No current outpatient medications on file prior to visit. No current facility-administered medications on file prior to visit. Social History Tobacco History Smoking Status Never Smokeless Tobacco Use Current Smokeless Tobacco Type Chew Tobacco Comments chewing tobacco 2 cans/week Alcohol History Alcohol Use Status No Drug Use Drug Use Status No Sexual Activity Sexually Active Not Asked Activities of Daily Living Not Asked A family history, past medical history, and review of systems form was completed by the patient andreviewed by me with the patient. . Review of Systems Constitutional: Negative for weight changes Eyes: Negative for dry eyes Respiratory: Negative for Chronic cough Cardiovascular: Negative for chest pain and palpitations. MSK: negative for swollen limbs Gastrointestinal: Negative for Chronic diarrhea Musculoskeletal: Negative for joint/muscle pain Endo: negative for swollen glands Heme: negative for abnormal bleeding, negative for abnormal bruising Skin: Negative for rash, negative for Jaundice. Neurological: Negative for seizures Psychiatry: negative for depression Future appointments already scheduled: Future Appointments Date Time Provider Department Center 12/30/2023 8:30 AM Arturo Mark MD PSG PSG 01/17/2024 11:40 AM Andrew Staley PA-C [facility] Objective Vitals: 12/30/23 0813 BP: (!) 160/96 Pulse: 64 Weight: 94.5 kg (208 lb 6.4 oz) Height: 1.829 m (6') Body mass index is 28.26 kg/m??. Physical Exam Pleasant, well-developed, well-nourished 58-year-old male who is alert and oriented in no apparent distress Sclera anicteric Skin: 15 mm x 15 mm lesion located on the left dorsal forearm mid shaft overlying the ulna, stuck down not associated with the skin or subcutaneous tissue. Does not pulse or have a thrill. It does not change shape or consistency with muscle extension or flexion No ulceration, no bleeding Neck is supple without adenopathy No axillary adenopathy Heart regular rate Lungs clear bilaterally Chart Reviewed by Arturo Mark * Eunice Zhu CMA - 12/30/2023 8:12 AM EDT Carter Alexis Jr. roomed by: Eunice Zhu. documented in this encounter Plan of Treatment Scheduled Orders Name Type Priority Associated Diagnoses Orde r Schedule NE EXCIS TUMOR,SOFT TISS FOREARM/WRIST,DEEP Procedures Routine Subcutaneous mass of left forearm Ordered: 12/30/2023 NE LAYR CLOS SCALP/TRUNK/EXTREM 2.6-7.5CM Procedures Routine Subcutaneous mass of left forearm Ordered: 12/30/2023 documented as of this encounter Goals Goal Patient Goal Type Associated Problems Recent Progress Patient-Stated? Author Blood Pressure < 140/90 Blood Pressure 160/96( 024 8:13 AM EDT) No Kilo Wang MD documented as of this encounter Procedures Procedure Name Priority Date/Time Associated Diagnosis Comments SURGICAL PATHOLOGY Routine 12/30/2023 8: 25 AM EDT Subcutaneous mass of left forearm documented in this encounter Results * SURGICAL PATHOLOGY (12/30/2023 8:25 AM EDT) Surgical Pathology Report [facility] Department of Pathology [address] [place] [address] Final Surgical Pathology Consultation Patient: MIREYA MOTT, ?Collected: 12/30/2023 ?? Submitting Clinician: CARTER Taveras ?Received: 12/30/2023 ?ARTURO MARK MD M, Age: 58 Y ?Reported: 01/02/2024 ?Location: [facility] : 1965 ?[facility], ?Billing Number: [id number] Final Diagnosis: Soft tissue, left forearm, excision: ??- Fibroadipose tissue with acute inflammation, giant cell reaction, ?and granulation tissue; consistent with foreign body reaction. ?<Sign Out Dr. Signature> ? JESSIE CORNELL MD ?Electronic Signature ?Signed: ??01/02/2024 ?Signed out at: ??[facility] ?[address] [place] [address] Surgical Procedure: Left forearm subcutaneous mass, foreign body reaction? Specimen(s) Submitted: 1.5 cm x 1.5 cm mass left forearm, thorn in middle of mass. Clinical Data and Pre-Operative Diagnosis: Not provided. Operative Findings and Post-Operative Diagnosis: Subcutaneous mass of left forearm (R22.32). Gross Description: Received in formalin, labelled with the patient's name, date of , and left forearm : ??Specimen consists of a 1.5 x 1 x 1 cm pink-sood to red, rough, rubbery nodule. Inked black. Sectioning shows a pink-sood to sood-yellow solid cut surface. Entirely submitted. 08/18. ??PJ/CXP [facility] 12/30/2023 8:25 AM EDT 12/30/2023 1:19 PM EDT us Arturo Mark MD PATHOLOGY/CYTOLOGY ORDERABLES Fi nal Result [facility] [address] [place] [address] documented in this encounter Visit Diagnoses Diagnosis Subcutaneous mass of left forearm- Primary documented in this encounter Care Teams Healthcare Management Relationship Specialty Start Date End Date Matthew Del Toro MD [address] [address] PCP - General Family Practice 12/12/23 Juan Haddad MD [address] [place] [address] Otolaryngology 09/23/17 Trey Jennings MD [address] [facility] [address] [place] [address] [facility] Specialist Cardiothoracic Surgery 06/27/22 documented as of this encounter
--- OUTSIDE RECORDS SUMMARY | 2024-06-24 04:34 | XMS_ITS | Encounter Summary ---
Author Organization [facility] alth Address [address] [place] [address] Care Team Providers Care Water Filterer Helper Name Role Phone Juan Haddad MD Unavailable [phone] Trey Jennings MD Unavailable [phone] Matthew Del Toro MD Primary Care Provider [phone] Encounter Details Date Type Department Care Team (Latest Contact Info) Description 12/30/2023 12:46 PM EDT - 12/30/2023 11:59 PM EDT Hospital Encounter [facility] [address] [place] [address] Localized swelling, mass and lump, left upper limb Discharge Disposition: Home/Self Care Social History Tobacco [...] and Family Not on file 09/30/2020 Attends [employer] Not on file 09/30 Active Member [...] on filedocumented in this encounter Care Teams Water Filterer Helper Relationship Specialty Start Date End Date Matthew Del Toro MD [address] [address] PCP - General Family Practice 12/12/23 Juan Haddad MD [address] [facility] [place] [address] Otolaryngology 09/23/17 Trey Jennings MD [address] [facility] [address] [place] [address] [facility] Specialist Cardiothoracic Surgery 06/27/22 documented as of this encounter
--- OUTSIDE RECORDS SUMMARY | 2024-06-24 04:34 | XMS_ITS | Encounter Summary ---
Author Organization [facility] Address [address] [facility] [address] Care Team Providers Care Terrazzo Tile Maker Name Role Phone Juan Haddad MD Unavailable [phone] Trey Jennings MD Unavailable [phone] Txfr Provider Family [facility], [facility] Primary Care Provider Guerita Elliott PA-C Unavailable Matthew Rushing MD Unavailable [phone] Matthew Rushing MD Unavailable [phone] Guerita Elliott PA-C Unavailable [phone] Matthew Del Toro MD Primary Care Provider [phone] Reason for Visit * Reason Onset Date Comments Prior Authorization 12/01/2023 Encounter Details Date Type Department Care Team (Late st Contact Info) Description 12/01/2023 Telephone [facility] [address] [facility] [address] [place] [address] Andrew Staley PA-C [address] [place] [address] Prior Authorization Social History Tobacco Use Types Packs/Day Years [...] encounter Miscellaneous Notes * Telephone Encounter - Kierra Rudd - 12/13/2023 11:28 AM EDT Patient returned call, he did reach out to his chiropractor about a week ago, they were sending records, he is going to call them again. He did request to reschedule his appt due to him being out of town next week, won't be able to get MRI done. Rescheduled patient for 01/17/2024 @ 11:40 am with Andrew Rebeka * Telephone Encounter - Sabiha Solorio LPN - 12/13/2023 9:59 AM EDT Left message for patient asking if he had contacted his chiropractor for notes that we could potentially use to obtain authorization for his MRI. Asked that he call back as he is still scheduled to see Andrew on 01/01 to review imaging results. * Telephone Encounter - Sabiha Solorio LPN - 12/05/2023 10:26 AM EDT Will await chiropractic OV notes * Telephone Encounter - Maria G Barboza - 12/05/2023 7:17 AM EDT If he went to see them within the last 6 months we can try to use them, if not then no. * Telephone Encounter - Sabiha Solorio LPN - 12/01/2023 2:33 PM EDT That's what I thought at first too, but under the HPI Andrew states that he has been going to a chiropractor regularly for over a year without significant relief. * Telephone Encounter - Maria G Barboza - 12/01/2023 2:16 PM EDT His note says that it was from over a year ago. * Telephone Encounter - Kierra Rudd - 12/01/2023 10:54 AM EDT Patient called back, and I informed him that it would be helpful if he could call and obtain his records from his Chiropractic. Patient will call and have them faxed to us, I provided him with our fax number. * Telephone Encounter - Sabiha Solorio LPN - 12/01/2023 10:34 AM EDT I left a message for patient to call back. Would it be helpful if we had records from his chiropractor? * Telephone Encounter - Maria G Barboza - 12/01/2023 9:28 AM EDT Thoracic MRI is being denied by insurance. They are requesting patient complete 6 weeks of physicaltherapy within the last 6 months. I have attached the reasoning below. documented in this encounter Plan of Treatment Not on file documented as of this encounter Goals Goal Patient Goal Type Associated Problems Recent Progress Patient-Stated? Author Blood Pressure < 140/90 Blood Pressure 160/96( 024 8:13 AM EDT) Kilo Mora MD documented as of this encounter Visit Diagnoses Not on filedocumented in this encounter Care Teams Terrazzo Tile Maker Relationship Specialty Start Date End Date Txfr Provider [facility], Temporary [address] [address] PCP - General Family Practice 07/11/23 12/11/23 Matthew Del Toro MD [address] [id number] PCP - General Family Practice 12/12/23 [place] [address] [place] [address] Otolaryngology 09/23/17 Trey Jennings MD [address] [address] [facility] Specialist Cardiothoracic Surgery 06/27/22 Guerita Elliott PA-C [address] [address] [facility] Specialist Cardiothoracic Surgery 12/04/23 4 Matthew Rushing MD [address] [place] [address] [facility] Specialist Cardiology - General 12/04/23 12/04/23 Matthew Rushing MD [address] [place] [address] [facility] Specialist Cardiology - General 12/11/23 12/11/23 Guerita Elliott PA-C [address] [address] [facility] Specialist Cardiothoracic Surgery 12/11/23 4 documented as of this encounter
--- OUTSIDE RECORDS SUMMARY | 2024-06-24 04:34 | XMS_ITS | Clinical Summary ---
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 Repeat colonoscopy in APR 2019 04/27/2016 Essential hypertension 08/28/2012 Asthma 08/28/2012 Anxiety Resolved Problems Problem Noted Date Diagnosed Date Resolved Date SI (sacroiliac) joint inflammation 08/06/2021 08/06/2021 Shortness of breath 07/31/2018 03/10/20 20 Nonspecific abnormal electro cardiogram (ECG) (EKG) 07/31/2018 03/10/2020 Vasovagal syncope 08/30/2016 07/31/2018 Nonintractable episodic headache 05/09/2016 05/10/2016 Syncope and collapse 05/08/2016 016 Family History Medical History Relation Comments Cancer Mother colon Relation Status Comments Father Alive Mother Alive Social History Tobacco Use Types Packs/Day Years [...] PM EDT Sexual Orientation Not on file Last Filed Vital Signs Vital Sign Reading Time Taken Comments Blood Pressure 160/96 12/30/2023 8:13 AM EDT Pulse 64 12/30/2023 8:13 AM EDT Temperature 36.4 ??C (97.6 ??F) 10/02/2023 4:22 PM ED T Respiratory Rate 16 10/02/2023 4:22 PM EDT Oxygen Saturation 98% 12/12/2023 3:59 PM EDT Inhaled Oxygen Concentration - - Weight 91.6 kg (202 lb) 03/05/2024 1:46 PM EDT Height 182.9 cm (6') 03/05/2024 1:46 PM EDT Body Mass Index 27.4 03/05/2024 1:46 PM EDT Plan of Treatment Health Maintenance Due Date Last Done Comments IMM: Pneumococcal High Risk (1 of 2 - PCV) 1973 IMM: TDAP 11+ [Primary Tetanus series ASSUMED if not documented] (1 - Tdap) 1978 IMM: TETANUS (AGE 7-15: TDAP ONLY) 1978 ID: ( A ) HIV SCREENING 1982 ID: ( B ) Hepatitis C Screening 1985 FIT-DNA 2012 FOB/FIT 2012 IMM: ZOSTER (1 of 2) 2017 CV: ( A ) LIPID PANEL (SCREENING) 04/20/2023 04/20/2018, 04/06/2016 IMM: INFLUENZA (#1) 2024 IMM: COVID-19 Vaccine ( season) 2024 ENDO (B): DM At Risk 03/04/2024 03/04/2021, 04/20/2018, 05/09/2016 Colonoscopy 06/25/2025 06/25/2022, 06/26/2019, 04/22/2016 ONC (A): Colorectal CA Screening 06/25/2025 IMM: HEPATITIS A VACCINES Aged Out No longer eligible based on patient's age to complete this topic Goals Goal Patient Goal Type Associated Problems Recent Progress Patient-Stated? Author Blood Pressure < 140/90 Blood Pressure 160/96( 024 8:13 AM EDT) No Kilo Wang MD Procedures Procedure Name Priority Date/Time Associated Diagnosis Comments COLONOSCOPY, SCREENING Routine 06/25/2022 1:59 PM EST Family history of colon cancer Hx of colonic polyps GLUCOSE, FASTING Routine 03/04/2021 4:46 PM EDT LIPID PANEL Routine 04/20/2018 6:49 AM EDT Familial hypercholesterolemia from Last 3 Months or Most Recently Relevant to Health Maintenance Results * COLONOSCOPY, SCREENING (06/25/2022 1:59 PM EST) PROCEDURE Procedure Name: Colonoscopy [facility] INDICATIONS Indications: High risk colon cancer surveillance: Personal history [facility] INDICATIONS of colonic polyps, Last colonoscopy: June 2019 [facility] PERFORMING PROVIDER Providers: Joe Srivastava (Doctor), Guerita Jon CRNA [facility] PERFORMING PROVIDER (Anesthesia Staff) [facility] MEDICATION Medicines: See the Anesthesia note for documentation of the [facility] MEDICATION administered medications [facility] COMPLICATION Complications: No immediate complications. [facility] WSCOPETIME Scope Withdrawal Time 0 hours 15 minutes 28 seconds [facility] 06/25/2022 1:59 PM EST Narrative [facility] - 06/25/2022 2:36 PM EST Impression: ?- Non-bleeding internal hemorrhoids. ? - Diverticulosis in the sigmoid colon and in the ? descending colon. ? - One 5 mm polyp in the sigmoid colon, removed with a ? cold snare. Resected and retrieved. ? - One 15 mm polyp in the ascending colon, removed ? piecemeal using a cold snare. Resected and retrieved. ? - Two 2 to 8 mm polyps in the cecum, removed with a ? cold snare. Resected and retrieved. ? - The examination was otherwise normal. Recommendation: ?- Patient has a contact number available for ? emergencies. The signs and symptoms of potential ? delayed complications were discussed with the patient. ? Return to normal activities tomorrow. Written ? discharge instructions were provided to the patient. ? - Resume previous diet. ? - Continue present medications. ? - Await pathology results. ? - Repeat colonoscopy in 3 - 5 years for surveillance ? based on pathology results. Procedure: ? Pre-Anesthesia Assessment: ? - Sedation was administered by an anesthesia ? professional. Deep sedation was attained. ? - Prior to the procedure, a History and Physical was ? performed, and patient medications and allergies were ? reviewed. The patient's tolerance of previous ? anesthesia was also reviewed. The risks and benefits ? of the procedure and the sedation options and risks ? were discussed with the patient. All questions were ? answered, and informed consent was obtained. Prior ? Anticoagulants: The patient has taken no anticoagulant ? or antiplatelet agents. ASA Grade Assessment: II - A ? patient with mild systemic disease. After reviewing ? the risks and benefits, the patient was deemed in ? satisfactory condition to undergo the procedure. ? - Patient identification and proposed procedure were ? verified prior to the procedure by the physician, the ? chemical test engineer and the master automotive technician. The procedure was ? verified in the procedure room. ? After I obtained informed consent, the scope was ? passed under direct vision. Throughout the procedure, ? the patient's blood pressure, pulse, and oxygen ? saturations were monitored continuously. The ? Colonoscope was introduced through the anus and ? advanced to the cecum, identified by appendiceal ? orifice and ileocecal valve. The colonoscopy was ? performed without difficulty. The patient tolerated ? the procedure well. The quality of the bowel ? preparation was good. The ileocecal valve, appendiceal ? orifice, and rectum were photographed. Findings: ? The perianal and digital rectal examinations were normal. ? Non-bleeding internal hemorrhoids were found during retroflexion. The ? hemorrhoids were medium-sized. ? Many small and large-mouthed diverticula were found in the sigmoid colon ? and descending colon. ? A 5 mm polyp was found in the sigmoid colon. The polyp was sessile. The ? polyp was removed with a cold snare. Resection and retrieval were ? complete. ? A 15 mm polyp was found in the ascending colon. The polyp was sessile. ? The polyp was removed with a piecemeal technique using a cold snare. ? Resection and retrieval were complete. ? Two sessile polyps were found in the cecum. The polyps were 2 to 8 mm in ? size. These polyps were removed with a cold snare. Resection and ? retrieval were complete. ? Retroflexion in the right colon was performed. ? The exam was otherwise without abnormality. Note Initiated On: 06/25/2022 1:59 PM Joe Srivastava MD GI PROCEDURE ORDERABLES Final R esult Performing Organization Address [facility] Co de Phone Number [facility] [address] [place] [address] * GLUCOSE, FASTING (03/04/2021 4:46 PM EDT) [facility] Glucose Fasting 78 65 - 99 mg/dL 03/04/2021 8:14 PM EDT [facility] 03/04/2021 4:46 PM EDT 03/04/2021 7:33 PM EDT Dasha Sheppard PA-C CHEMISTRY ORDERABLES Fi nal Result Performing Organization Address [facility] de Phone Number [facility] [address] [place] [address] * (ABNORMAL) LIPID PANEL CHOLESTEROL FRACTIONATION (LCF) (04/20/2018 6:49 AM EDT) [facility] Cholesterol 202(H) 125 - 200 mg/dL 04/20/2018 10:43 AM EDT [facility] Triglyceride 75 60 - 150 mg/dL 04/20/2018 10:43 AM EDT [facility] High Density Lipoprotein Chol 40 40 - 90 mg/dL 04/20/2018 10:43 AM EDT [facility] Non-HDL Cholesterol 162 mg/dL 04/20 10:43 AM EDT [facility] Low Density Lipoprot Chol Calc 147(A) <130 mg/dL 04/20/2018 10:43 AM EDT [facility] Comment: Ages 25 - 150 Years [NCEP ATP III GUIDELINES] TOTAL CHOLESTEROL ?? <200 ? Desirable ?? 200-239 ??Borderline High ?? >=240 ?High TRIGLYCERIDES ?? <150 ? Normal ?? 150-199 ??Borderline High ?? 200-499 ??High ?? >=500 ?Very High HDL CHOLESTEROL ?? <40 ? Low (Increased Risk) ?? >=60 ?High (Desirable) LDL CHOLESTEROL ?? <100 ? Optimal in the absence of Arteriosclerotic ? Cardiovascular Disease ?70-129 ??Mildly Elevated ?? 130-159 ??Moderately Elevated ?? 160-189 ??High ?? >=190 ?Extremely High and clinical correlation suggested VLDL Cholesterol 15 mg/dL 04/20/20 18 10:43 AM EDT [facility] Chol/HDL Ratio 5.05 Ratio 04/20/2018 10:43 AM EDT [facility] LDL/HDL Ratio 3.68 Ratio 04/20/2018 10:43 AM EDT [facility] 04/20/2018 6:49 AM EDT 04/20/2018 10:08 AM EDT us Dasha Sheppard PA-C CHEMISTRY ORDERABLES Fi nal Result [facility] [address] [facility] [place] [address] from Last 3 Months or Most Recently Relevant to Health Maintenance Insurance [employer] [facility] Apsalar [facility] Apsalar [facility] Aps[facility] [employer] [facility] [place] [address] [facility] [employer] [place] [address] Advance Directives * Full Code (Latest Code Status on File) Date Activated Date Inactivated Comments 03/23/2018 8:48 AM 03/23/2018 12:04 PM * Full Code Date Activated Date Inactivated Comments 03/02/2018 9:05 AM 03/02/2018 11:37 AM * Full Code Date Activated Date Inactivated Comments 05/08/2016 11:33 PM 05/10/2016 8:12 PM Care Teams Deli Manager Relationship Specialty Start Date End Date Matthew Del Toro MD [address] [facility] [address] [place] [address] PCP - General Family Practice 12/12/23 Juan Haddad MD [address] [facility] [place] [address] Otolaryngology 09/23/17 Trey Jennings MD [address] [facility] [address] [place] [address] [facility] Specialist Cardiothoracic Surgery 06/27/22
--- OUTSIDE RECORDS SUMMARY | 2024-06-24 04:34 | XMS_ITS | Encounter Summary ---
Author Organization [employer] Address [address] [place] [address] Care Team Providers Care Etcher Photoengraving Name Role Phone Provider, Miki RICHARDS Primary Care Provider Un available Encounter Details Date Type Department Care Team (Latest Contact Info) Description 10/16/2013 7:48 AM EDT Hospital Encounter [facility] Department Yadiel Mccloud MD Provider, MD Miki None Abdominal pain, right upper quadrant Discharge Disposition: Home or Self Care Social [...] Procedure Name Priority Date/Time Associated Diagnosis Comments US ABDOMEN COMPLETE Routine 10/16/2013 7 :53 AM EDT documented in this encounter Results * US ABDOMEN COMPLETE (10/16/2013 7:53 AM EDT) Anatomical Region Laterality Modality Abdomen Ultrasound 10/16/2013 7:49 AM EDT Narrative 10/16/2013 2:36 PM EDT ?? HISTORY: ? 789.01. Abdominal pain. Right upper quadrant pain. ? TECHNIQUE: ? Upper abdominal ultrasound was performed. ? COMPARISON: ? None. ? RESULTS: ? The study is degraded by the patient's body habitus. The liver and spleen are ?? normal in size and configuration. I do not see focal lesion. The gallbladder ?? demonstrates no wall thickening or calculi. I do not see intra or ?? extrahepatic biliary duct dilatation. The pancreas is not visualized due to ?? overlying bowel gas. The proximal aorta is mildly dilated at 3.1 cm. IVC is ?? intact. ? Survey films of the kidneys demonstrate nonvisualization of the left kidney. ?? A pelvic kidney is not identified. The right kidney is enlarged measuring ?? 13.8 cm. This may represent compensatory hypertrophy. I do not see ?? hydronephrosis. ? IMPRESSION: ? Study degraded by patient body habitus. Normal gallbladder. Left kidney not ?? visualized. Compensatory hypertrophy of right kidney. Mild dilatation of ?? aorta to 3.1 cm. Pancreas not visualized due to overlying bowel gas. ? Procedure Note ProviderMiki MD / Steven Kinney MD - 10/30/2016 HISTORY: 789.01. Abdominal pain. Right upper quadrant pain. TECHNIQUE: Upper abdominal ultrasound was performed. COMPARISON: None. RESULTS: The study is degraded by the patient's body habitus. The liver and spleenare normal in size and configuration. I do not see focal lesion. Thegallbladder demonstrates no wall thickening or calculi. I do not see intra or extrahepatic biliary duct dilatation. The pancreas is not visualized dueto overlying bowel gas. The proximal aorta is mildly dilated at 3.1 cm. IVCis intact. Survey films of the kidneys demonstrate nonvisualization of the leftkidney. A pelvic kidney is not identified. The right kidney is enlarged measuring 13.8 cm. This may represent compensatory hypertrophy. I do not see hydronephrosis. IMPRESSION: Study degraded by patient body habitus. Normal gallbladder. Left kidneynot visualized. Compensatory hypertrophy of right kidney. Mild dilatation of aorta to 3.1 cm. Pancreas not visualized due to overlying bowel gas. Yadiel Mccloud MD IM US PROCEDURES Final R esult documented in this encounter Visit Diagnoses Diagnosis Abdominal pain, right upper quadrant documented in this encounter Care Teams Etcher Photoengraving Relationship Specialty Start Date End Date Provider, MD Miki None PCP - General 10/16/13 documented as of this encounter
--- OUTSIDE RECORDS SUMMARY | 2024-06-24 04:34 | XMS_ITS | Referral Summary ---
Author Organization [facility] Address [address] [address] Care Team Providers Care Hospice Bereavement Coordinator Name Role Phone Provider, Miki RICHARDS Primary Care Provider Un available Social History Tobacco Use Types Packs/Day Years Used Date Smoking Tobacco: Never Assessed Sex and Gender Information Value Date Recorded Sex Assigned at Not on file Legal Sex Male 10:24 PM EDT Gender Identity Not on file Sexual Orientation Not on file Plan of Treatment Not on file Care Teams Hospice Bereavement Coordinator Relationship Specialty Start Date End Date Miki Alvarez MD None PCP - General 10/16/13
--- OUTSIDE RECORDS SUMMARY | 2024-06-24 04:34 | XMS_ITS | Encounter Summary ---
Author Organization [facility] Address [address] [place] [address] Care Team Providers Care Product Manager Medical Device Name Role Phone Juan Haddad MD Unavailable [phone] Trey Jennings MD Unavailable [phone] Matthew Del Toro MD Primary Care Provider [phone] Reason for Visit * Test/Procedure/Other (Routine) - Closed Specialty Diagnoses / Procedures Referred By Contac t Referred To Contact Diagnoses Thoracic spine pain Procedures MR THORACIC SPINE WO CONTRAST Andrew Staley, [facility] [address] [place] [address] Phone: tel: fax: Group, Mri [address] [place] [address] Phone: tel: fax: Referral ID Status Reason Start Date Expiration Date Visits Re quested Visits Authorized [id number] Closed 01/27/2024 02/26/2024 1 1 Encounter Details Date Type Department Care Team (Latest Contact Info) Description 02/15/2024 10:25 AM EDT Ancillary Procedure [address] [address] Thoracic spine pain Discharge Disposition: Home/Self Care [...] and Family Not on file 09/30/2020 Attends [employer] Not on file 09/30 Active Member [...] Procedure Name Priority Date/Time Associated Diagnosis Comments MR THORACIC SPINE WO CONTRAST Routine 02/15/2024 11:25 AM EDT Thoracic spine pain documented in this encounter Results * MR THORACIC SPINE WO CONTRAST (02/15/2024 11:25 AM EDT) Workstation ID Dictating [facility] [address] [facility]IOLOG[facility] Anatomical Region Laterality Modality T-Spine Magnetic [...] Overall, findings are mildly progressed since 2021. Andrew Staley PA-C RIS MR ORDERABLES Final Res ult documented in this encounter Visit Diagnoses Diagnosis Thoracic spine pain Pain in thoracic spine documented in this encounter Care Teams Product Manager Medical Device Relationship Specialty Start Date End Date Matthew Del Toro MD [address] [address] [place] [id number] PCP - General Family Practice 12/12/23 Juan Haddad MD [address] [facility] [place] [address] Otolaryngology 09/23/17 Trey Jennings MD [address] [place] [address] [address] [place] [address] [facility] Specialist Cardiothoracic Surgery 06/27/22 documented as of this encounter
--- OUTSIDE RECORDS SUMMARY | 2024-06-24 04:34 | XMS_ITS | Encounter Summary ---
Author Organization [facility] alth Address [address] [place] [address] Care Team Providers Care Library Circulation Clerk Name Role Phone Juan Haddad MD Unavailable [phone] Dasha Sheppard PA-C Primary Care Provider Trey Jennings MD Unavailable [phone] Reason for Visit * Reason Comments Sinus Problem Encounter Details Date Type Department Care Team (Late st Contact Info) Description 10/12/2022 5:00 PM EDT Office Visit [facility] [place] [address] [place] [address] Andrew Friend MD [address] [place] [id number] Nasal congestion (Primary Dx) Discharge Disposition: Home/Self Care Social [...] Sign Reading Time Taken Comments Blood Pressure 150/86 10/12/2022 5:09 PM EDT Pulse 95 10/12/2022 5:09 PM EDT Temperature 37.7 ??C (99.8 ??F) 10/12/2022 5:09 PM ED T Respiratory Rate - - Oxygen Saturation 99% 10/12/2022 5:09 PM EDT Inhaled Oxygen Concentration - - Weight 103 kg (227 lb 11.8 oz) 10/12/2022 5:09 P M EDT Height 182.9 cm (6') 10/12/2022 5:09 PM EDT Body Mass Index 30.89 10/12/2022 5:09 PM EDT documented in this encounter Patient Instructions * Patient Instructions* Andrew Friend MD - 10/12/2022 5:23 PM EDT Symptomatic therapy suggested: gargle for sore throat, use mist at bedside for congestion. Apply facial warm packs for sinus pain. May use Robitussin/mucinex prn. Saline spray to the nose frequently. Medications to be taken/used as directed. Please read all patient education handout regarding your diagnosis. Please read all Pharmacy information regarding adverse effects of medications prescribed. It is Strongly Recommended to follow up with your Primary care provider if your symptoms do not improve in 72 Hours or return to nearest [facility]. ER warnings provided: go to ER if symptoms worsen at any time or cause worry. Or call 911. You are strongly reminded, that if you are having any concerns with any recommended treatment at the time of your visit, that you should advocate for yourself to get a second opinion at another facility immediately and before beginning treatment. If you have been prescribed medication from any other physician/provider you should take those medications as directed. * Attachments The following attachments cannot be sent through Care Everywhere. * Sinus Rinse (SIERRA LEONEAN) documented in this encounter Progress Notes * Andrew Friend MD - 10/12/2022 5:08 PM EDT Patient ID: Robert Alexis Jr. is a 57 y.o. male who presents to Urgent Care today. Primary care provider is Dasha Sheppard PA-C. Reports the following: pt reports possible sinus infection d/t the following sx -sinus pain -congestion -burning when he blows his nose Tx sudafed x 2 days Onset of symptoms: 2-3 days Location of pain: sinuses Current pain level:#8 Work or school note needed:NO Patient is accompanied by No One Room Number: 4 Robert Alexis Jr. roomed by: Luana Earl LPN Chart Sections reviewed by provider: Subjective: Patient presents with: Sinus Problem Patient is here for evaluation for nasal congestion, has been taking pseudoephedrine/Sudafed for 2 days with no significant improvement. He has no sinus pain. No fever. Robert Alexis Jr. is a 57 y.o. male who presents with chief complaint of Sinus Problem. Chart Review: has Essential hypertension; Asthma; Tubular adenoma of colon. Repeat colonoscopy in APR 2019; Anxiety; Occipital neuralgia of right side; Bilateral carpal tunnel syndrome; Cubital tunnel syndrome on left; Congenital absence of left kidney; Lyme disease; Right carpal tunnel syndrome; Left carpal tunnel syndrome; Serrated polyp of colon; and Thoracic aortic aneurysm without rupture (CMS/HCC) on their problem list. Current Outpatient Medications Medication Sig Dispense Refill ??? amLODIPine (NORVASC) 5 MG tablet Take 1 tablet by mouth daily - Call [facility] for Md appt. (Patient not taking: No sig reported) 90 tablet 1 ??? predniSONE (DELTASONE) 10 MG tablet Take 1 tablet by mouth 2 times daily for 4 days. 8 tablet 0 No current facility-administered medications for this visit. He is allergic to quinolones and zoloft [sertraline]. Past medical, social, and family history noncontributory except as noted. Review of Systems Constitutional: Negative. HENT: Positive for congestion. Eyes: Negative. Respiratory: Negative. Cardiovascular: Negative. Gastrointestinal: Negative. Genitourinary: Negative. Musculoskeletal: Negative. Skin: Negative. Neurological: Negative. Endo/Heme/Allergies: Negative. Psychiatric/Behavioral: Negative. All other systems reviewed and are negative. Objective: Visit Vitals BP (!) 150/86 Pulse 95 Temp 99.8 ??F (37.7 ??C) (Tympanic) Ht 1.829 m (6') Wt 103 kg (227 lb 11.8 oz) SpO2 99% BMI 30.89 kg/m?? Physical Exam Vitals and nursing note reviewed. Constitutional: General: He is awake. He is not in acute distress. Appearance: Normal appearance. He is not ill-appearing, toxic-appearing or diaphoretic. HENT: Head: Normocephalic and atraumatic. Nose: Congestion present. Mouth/Throat: Mouth: Mucous membranes are moist. Pharynx: Oropharynx is clear. No oropharyngeal exudate or posterior oropharyngeal erythema. Eyes: General: Right eye: No discharge. Left eye: No discharge. Extraocular Movements: Extraocular movements intact. Conjunctiva/sclera: Conjunctivae normal. Pulmonary: Effort: Pulmonary effort is normal. No respiratory distress. Breath sounds: Normal breath sounds. No stridor. No wheezing, rhonchi or rales. Neurological: General: No focal deficit present. Mental Status: He is alert and oriented to person, place, and time. Psychiatric: Mood and Affect: Mood normal. Behavior: Behavior normal. Behavior is cooperative. Procedures: Procedures No results found. Assessment / Plan: 1. Nasal congestion Orders Placed This Encounter Medications ??? predniSONE (DELTASONE) 10 MG tablet Sig: Take 1 tablet by mouth 2 times daily for 4 days. Dispense: 8 tablet Refill: 0 Disposition: Home All questions were answered. The patient or guardian was given an after-visit summary. Symptomatic therapy suggested: gargle for sore throat, use mist at bedside for congestion. Apply facial warm packs for sinus pain. May use Robitussin/mucinex prn. Saline spray to the nose frequently. Medications to be taken/used as directed. Please read all patient education handout regarding your diagnosis. Please read all Pharmacy information regarding adverse effects of medications prescribed. It is Strongly Recommended to follow up with your Primary care provider if your symptoms do not improve in 72 Hours or return to nearest [facility]. ER warnings provided: go to ER if symptoms worsen at any time or cause worry. Or call 911. You are strongly reminded, that if you are having any concerns with any recommended treatment at the time of your visit, that you should advocate for yourself to get a second opinion at another facility immediately and before beginning treatment. If you have been prescribed medication from any other physician/provider you should take those medications as directed. Discontinue the pseudoephedrine. documented in this encounter Plan of Treatment Not on file documented as of this encounter Goals Goal Patient Goal Type Associated Problems Recent Progress Patient-Stated? Author Blood Pressure < 140/90 Blood Pressure 160/96( 024 8:13 AM EDT) No Kilo Wang MD documented as of this encounter Visit Diagnoses Diagnosis Nasal congestion- Primary Other diseases of nasal cavity and sinuses documented in this encounter Care Teams Library Circulation Clerk Relationship Specialty Start Date End Date Dasha Sheppard PA-C [address] [id number] PCP - General Family Practice 04/12/18 07/10/23 Juan Haddad MD [address] [address] Otolaryngology 09/23/17 Trey Jennings MD [address] [place] [address] [address] [address] [facility] Specialist Cardiothoracic Surgery 06/27/22 documented as of this encounter
--- OUTSIDE RECORDS SUMMARY | 2024-06-24 04:34 | XMS_ITS | Encounter Summary ---
Author Organization [facility] Address [address] [place] [address] Care Team Providers Care Bullard Machine Operator Name Role Phone Provider, Miki RCIHARDS Primary Care Provider Un available Encounter Details Date Type Department Care Team (Latest Contact Info) Description 03/26/2013 4:46 PM EDT Hospital Encounter [facility] [place] [address] [place] [address] Matt Carey MD Provider, MD Mary Livingston Sprain of ankle, unspecified site; Unspecified accident; Unspecified place of occurrence; Unspecified activity; Other external cause status Discharge Disposition: Home or Self Care Social [...] Name Priority Date/Time Associated Diagnosis Comments XR ANKLE 3 OR > LT Routine 03/26/2013 5: 19 PM EDT documented in this encounter Results * XR ANKLE 3 OR > LT (03/26/2013 5:19 PM EDT) Anatomical Region Laterality Modality Lower Extremities Radiographic I maging 03/26/2013 5:19 PM EDT Narrative 03/27/2013 11:16 AM EDT ?? HISTORY: ?? Twisting injury. ? TECHNIQUE: ?? Four view examination. ? COMPARISON: ?? None ? FINDINGS: ?? Soft tissue swelling is present about the lateral malleolus and to a lesser ?? extent medial malleolus. There is mild spurring of the anterior lip of the ?? tibia. No fracture is identified. The ankle mortise is anatomic. No talar ?? dome defect is observed. ? IMPRESSION: ?? Soft tissue swelling. No distinct fracture identified. ? Procedure Note Provider, MD Miki / Keenan Manzo MD - 10/30/2016 HISTORY: Twisting injury. TECHNIQUE: Four view examination. COMPARISON: None FINDINGS: Soft tissue swelling is present about the lateral malleolus and to alesser extent medial malleolus. There is mild spurring of the anterior lip of the tibia. No fracture is identified. The ankle mortise is anatomic. No talar dome defect is observed. IMPRESSION: Soft tissue swelling. No distinct fracture identified. Matt Carey MD IMG XR PROCEDURES Final Resu lt documented in this encounter Visit Diagnoses Diagnosis Sprain of ankle, unspecified site Unspecified accident Unspecified place of occurrence Unspecified activity Other external cause status documented in this encounter Care Teams Bullard Machine Operator Relationship Specialty Start Date End Date Provider, MD Miki None PCP - General 03/26/13 10/07/13 documented as of this encounter
--- OUTSIDE RECORDS SUMMARY | 2024-06-24 04:34 | XMS_ITS | Encounter Summary ---
Author Organization [facility] [address] [address] Care Team Providers Care Manager Of Planning Name Role Phone Juan Haddad MD Unavailable [phone] Trey Jennings MD Unavailable Txfr Provider Family [facility] Primary Care Provider Matthew Rushing MD Unavailable [phone] Guerita Elliott PA-C Unavailable [phone] Reason for Visit * Reason Comments Cold Like Symptoms Encounter Details Date Type Department Care Team (Late st Contact Info) Description 10/02/2023 3:55 PM EDT Office Visit [facility] [place] [address] [place] [address] Amy Zuleta PA-C [address] [place] [address] Acute non-recurrent sinusitis, unspecified location (Primary Dx) Discharge Disposition: Home/Self Care Social [...] and Family Not on file 09/30/2020 Attends [employer] Services Not on file 09/30 Active Member [...] Sign Reading Time Taken Comments Blood Pressure 142/78 10/02/2023 4:22 PM EDT Pulse 98 10/02/2023 4:22 PM EDT Temperature 36.4 ??C (97.6 ??F) 10/02/2023 4:22 PM ED T Respiratory Rate 16 10/02/2023 4:22 PM EDT Oxygen Saturation 96% 10/02/2023 4:22 PM EDT Inhaled Oxygen Concentration - - Weight 93.9 kg (207 lb) 10/02/2023 4:22 PM EDT Height 182.9 cm (6') 10/02/2023 4:22 PM EDT Body Mass Index 28.07 10/02/2023 4:22 PM EDT documented in this encounter Patient Instructions * Patient Instructions* Amy Zuleta PA-C - 10/02/2023 4:27 PM EDT - Take antibiotic as prescribed, in full. Take with food to avoid stomach upset. - Atrovent nasal spray twice daily as needed for congestion/runny nose. - Ibuprofen/Advil 600mg twice daily for the next few days to help with inflammation causing sinus pain and pressure. This also is commonly described as feeling as if you have to blow your nose, but nothing comes out. This may take a few doses to reduce inflammation and thus relieving symptoms. You may increase this to 4 times daily as needed. Be sure to confirm you are able to take this medication based off of your medical history. - Mucinex to help thin the mucus. Sudafed (such as Sudafed D behind the pharmacy counter), Afrin, or other decongestant as needed for sinus pain/pressure which works by reducing congestion. Afrin should only be taken for 5 consecutive days maximum. Decongestants should not be taken in patients withhigh blood pressure or extensive heart history. - Sinus rinses may be helpful. - Follow up with PCP if symptoms persist. Return to UC/ER with any new or worsening symptoms. documented in this encounter Progress Notes * Amy Zuleta PA-C - 10/02/2023 4:21 PM EDT Assessment / Plan: 58 y.o. male well appearing patient who presents with a chief complaint of Cold Like Symptoms x over a week. 1. Acute non-recurrent sinusitis, unspecified location - Suspect bacterial sinusitis due to duration of symptoms and physical exam. - Patient prescribed amoxicillin and atrovent for sinus infection. Patient instructed to take antibiotic, in full, with food. Patient instructed to continue symptomatic care with nasal spray, nasal rinses, and tylenol/ibuprofen as needed. - Follow-up if symptoms do not begin to improve within the next 3-4 days. Follow-up sooner for new/worsening symptoms. Aftercare and follow-up instructions as noted in After Visit summary. All questions answered. Patient understood and verbally agreed to plan. Orders Placed This Encounter Medications amoxicillin (AMOXIL) 875 MG tablet Sig: Take 1 tablet by mouth 2 times daily for 5 days. Dispense: 10 tablet Refill: 0 ipratropium (ATROVENT) 0.06 % SOLN Sig: Instill 2 sprays into each nostril 4 times daily for 4 days. Dispense: 15 mL Refill: 0 Disposition: Home All questions were answered. The patient or guardian was given an after-visit summary. Patient ID: Robert Alexis Jr. presents to Urgent Care today. Reports the following: congestion and headache x 1 week. Taking several OTC medication with no relief. Onset of symptoms: 1 week Location of pain: no pain Current pain level:#0 Work or school note needed:NO Patient is accompanied by No One Room Number: 2 Robert Alexis Jr. roomed by: Gillian Lantigua CMA Primary care provider is Azar Provider [facility]. Chart Sections reviewed by provider: Subjective: Robert Alexis Jr. is a 58 y.o. male who presents with chief complaint of Cold Like Symptoms. HPI I reviewed the note above. Patient states he has been dealing with sore throat, congestion and a headache for over a week now.Patient states his symptoms got significantly worse today. Patient states he is extremely congestedand stuffy. Patient admits to a lot of sinus pressure. Admits to ear pressure. Admits to intermittant sweats. Denies fever, cough, coughing up blood, shortness of breath, difficulty breathing or chest pain. Chart Review: Robert Alexis Jr. has Essential hypertension; Asthma; Tubular adenoma of colon. Repeat colonoscopyin APR 2019; Anxiety; Occipital neuralgia of right side; Bilateral carpal tunnel syndrome; Cubital tunnel syndrome on left; Congenital absence of left kidney; Lyme disease; Right carpal tunnel syndrome; Left carpal tunnel syndrome; Serrated polyp of colon; and Thoracic aortic aneurysm without rupture (CMS/HCC) on their problem list. Current Outpatient Medications Medication Sig Dispense Refill amoxicillin (AMOXIL) 875 MG tablet Take 1 tablet by mouth 2 times daily for 5 days. 10 tablet 0 ipratropium (ATROVENT) 0.06 % SOLN Instill 2 sprays into each nostril 4 times daily for 4 days. 15 mL 0 No current facility-administered medications for this visit. He is allergic to quinolones and zoloft [sertraline]. Past medical, social, and family history noncontributory except as noted. Review of Systems Reason unable to perform ROS: See HPI. Objective: Visit Vitals BP (!) 142/78 (BP Source: Right Arm, Position: Sitting, Cuff Size: Regular) Pulse 98 Temp 97.6 ??F (36.4 ??C) (Tympanic) Resp 16 Ht 1.829 m (6') Wt 93.9 kg (207 lb) SpO2 96% BMI 28.07 kg/m?? Physical Exam Vitals and nursing note reviewed. Constitutional: General: He is not in acute distress. Appearance: Normal appearance. He is not ill-appearing. HENT: Head: Normocephalic. Right Ear: Tympanic membrane, ear canal and external ear normal. Left Ear: Tympanic membrane, ear canal and external ear normal. Nose: Congestion and rhinorrhea present. Right Sinus: Maxillary sinus tenderness and frontal sinus tenderness present. Left Sinus: Maxillary sinus tenderness and frontal sinus tenderness present. Mouth/Throat: Mouth: Mucous membranes are moist. Pharynx: No oropharyngeal exudate or posterior oropharyngeal erythema. Eyes: Conjunctiva/sclera: Conjunctivae normal. Cardiovascular: Rate and Rhythm: Normal rate. Pulmonary: Effort: Pulmonary effort is normal. Breath sounds: Normal breath sounds. Musculoskeletal: General: Normal range of motion. Skin: General: Skin is warm. Neurological: General: No focal deficit present. Mental Status: He is alert. Psychiatric: Mood and Affect: Mood normal. Behavior: Behavior normal. Procedures: Procedures No results found. Cosigned by Wiliam Burgos MD at 10/02/2023 4:42 PM EDT Associated attestation - Wiliam Burgos MD - 10/02/2023 4:42 PM EDT Advanced Instrumentation Controls Engineer note reviewed. I agree with the impression and plan as described based on the documentation in the note. documented in this encounter Plan of Treatment Not on file documented as of this encounter Goals Goal Patient Goal Type Associated Problems Recent Progress Patient-Stated? Author Blood Pressure < 140/90 Blood Pressure 160/96( 024 8:13 AM EDT) Kilo Mora MD documented as of this encounter Visit Diagnoses Diagnosis Acute non-recurrent sinusitis, unspecified location- Primary documented in this encounter Care Teams Manager Of Planning Relationship Specialty Start Date End Date Txfr Provider Family Medicine Ai, Temporary [address] [place] [address] PCP - General Family Practice 07/11/23 12/11/23 Juan Haddad MD [address] [place] [address] [address] [address] Otolaryngology 09/23/17 Trey Jennings MD [address] [place] [address] [address] [facility] Specialist Cardiothoracic Surgery 06/27/22 Matthew Rushing MD [address] [place] [address] [place] [address] [facility] Specialist Cardiology - General 10/02/23 10/02/23 Guerita Elliott PA-C [address] [address] [facility] Specialist Cardiothoracic Surgery 10/02/23 4 documented as of this encounter
--- OUTSIDE RECORDS SUMMARY | 2024-06-24 04:34 | XMS_ITS ---
Author Organization [facility] Address [address] [place] [address] Care Team Providers Care Lead Systems Analyst Name Role Phone BobalexysGrahamflorentinlu Primary Care Provider Allergies Allergen (clinical drug ingredient) Drug/Non Drug Allergy documented on EMR Reaction Allergy Type Onset Date Status sertraline Zoloft Unknown Drug Allergy Active PCN (uncoded) Unknown Allergy Active Results Component Value Reference Range Notes Urinalysis with Microscopic* Reviewed date:04/12/2024 04:18:56 PM Interpretation: Performing Lab: Notes/Report: Color Yellow Yellow Appearance Clear Clear Glucose Negative NEGATIVE mg/dL Bilirubin Negative NEGATIVE Ketone Negative NEGATIVE mg/dL Specific [place] 1.02 1.01 - 1.03 Blood Negative NEGATIVE pH 6.0 5.0 - 7.5 Protein Negative NEGATIVE mg/dL Urobilinogen 0.2 0.0 - 2.0 E.U./Dl Nitrites Negative NEGATIVE Leukocytes Negative NEGATIVE REASON FOR VISIT DOT PE Immunizations Vaccine Route Administration Date Status Comme nts Fluzone, quadrivalent Unknown 04/03/2024 Refused Social History Tobacco Use: Social History Observation Description Date Details (start date - stop date) Never Smoker NA - NA Tobacco Use/Smoking Question Answer Notes Are you a nonsmoker AUDIT-C (Standard) Question Answer Notes Did you have a drink containing alcohol in the p ast year? 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 and Routine adult health maintenance w\o abnormal finding Z00.00 Assessments Encounter Date Diagnosis (ICD Code) Assessment Notes Treat ment Notes Treatment Clinical Notes 04/03/2024 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 ???Screening:? Pain level 0/10 BP systolic/diastolic; see vitals Medication list documented and reviewed by provider. * ROS:?General/Constitutional:?Denies?Change in appetite.?Denies?Chills.?Denies?Fever.?Denies?Weight gain.?Denies?Weight loss.?Ophthalmologic:?Denies?Blurred vision.?Denies?Diminished visual acuity.?Denies?Discharge.?Denies?Itching and redness.?Denies?Pain.?ENT:?Denies?Ear pain.?Denies?Sore throat.?Endocrine:?Denies?Cold intolerance.?Denies?Excessive thirst.?Denies?Frequent urination.?Denies?Heat intolerance.?Respiratory:?Denies?Cough.?Denies?Shortness of breath at rest.?Denies?Shortness of breath with exertion.?Denies?Wheezing.?Cardiovascular:?Denies?Chest pain at rest.?Denies?Chest pain with exertion.?Denies?Fluid accumulation in the legs.?Denies?Irregular heartbeat.?Gastrointestinal:?Denies?Abdominal pain.?Denies?Blood in stool.?Denies?Constipation.?Denies?Diarrhea.?Denies?Heartburn.?Denies?Nausea.?Hematology:?Denies?Easy bruising.?Denies?Prolonged bleeding.?Genitourinary:?Patient denies? Urinary incontinence.?Denies?Abdominal pain/swelling.?Denies?Blood in urine.?Denies?Frequent urination.?Denies?Painful urination.?Musculoskeletal:?Denies?Joint stiffness.?Denies?Leg cramps.?Denies?Muscle aches.?Denies?Painful joints.?Denies?Swollen joints.?Denies?Weakness.?Skin:?Denies?Itching.?Denies?Rash.?Neurologic:?Denies?Dizziness.?Denies?Headache.?Denies?Loss of strength.?Denies?Tingling/Numbness.?Psychiatric:?Denies?Anxiety.?Denies?Depressed mood.? * Medical History:? * Surgical History:?CTS Sx b/l * Hospitalization/Major Diagno stic Procedure:?see above * Family History:?Father: aliv e, family history unknown .?Mother: alive, family history unknown .? * Social History:?Tobacco Use:?Tobacco Use/Smoking?Are you a?nonsmoker ???Drug/Alcohol:?AUDIT-C (Standard)?Did you have a drink containing alcohol in the past year??No ?Points?0 ?Interpretation?Negative ???Marianela CAM ([place]). * Medications:?None * Allergies:?PCN: AllergyZolof tno[Allergies Verified] Objective: * Vitals:?HR:65/min, BP:136/72 mm Hg, Ht: 72.50 in, Wt:207lbs, BMI:27.69Index, Oxygen sat %:95%, Wt-k.89 kg. * Examination: ???General Examination: ?GENERAL APPEARANCE:?well developed, well nourished, in no acute distress.?EYES:?extraocular movement intact (EOMI), pupils equal, round, reactive to light and accommodation, sclera non-icteric.?EARS:?auditory canal clear, tympanic membrane intact, clear.?NOSE:?nares patent, no lesions.?normal.?NECK/THYROID:?neck supple, no cervical lymphadenopathy, no thyromegaly.?LYMPH NODES:?no palpable adenopathy.?SKIN:?no suspicious lesions.?HEART:?regular rate and rhythm, no murmurs, rubs, gallops.?LUNGS:?clear to auscultation and palpation bilaterally.?ABDOMEN:?bowel sounds present, soft, nontender, nondistended , no hepatosplenomegaly, no hernias present, no masses palpable.?BACK:?spine nontender to palpation.?MALE GENITOURINARY:?no hernia, no penile lesions or discharge, no testicular mass.?MUSCULOSKELETAL:?no swelling or deformity.?EXTREMITIES:?no clubbing, cyanosis, or edema.?PERIPHERAL PULSES:?2+ posterior tibial, 2+ radial, 2+ carotid.?NEUROLOGIC:?alert and oriented, cranial nerves 2-12 grossly intact, motor strength normal upper and lower extremities, deep tendon reflexes 2+ symmetrical, sensory exam intact.?PSYCH:?alert, oriented, cognitive function intact, normal affect.?Whispered hearing wnl B/L at 7 feet. Peripheral vision to confrontation 110 deg OD, OS. Finger to nose exam wnl on exam. 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 Plan: * Treatment: * Immunizations:? Fluzone, quadrivalent : 0.5 (Not administered - Refused: Patient decision) * Procedure Codes:?1159F MED L IST DOCD IN [id number] RVW MEDS BY RX/DR IN [facility] * Preventive Medicine:? ??Counseling:?Care goal follow-up plan:?Above Normal BMI Follow-up?Dietary management education, guidance, and counseling * Follow Up:?1-2 Year * * Sign off status: Completed true * Provider:?Rafael Howard DO Da te:?04/03/2024 Generated for Johnathan castillo/La/eTransmitting on:?06/24/2024 05:34 AM EST History and Physical Notes * Examination Category Sub-Category Detail Notes General Examination GENERAL APPEARANCE: well dev eloped, well nourished, in no acute distress EYES: extraocular movement intact (EOMI), pupils equal, round, reactive to light and accommodation, sclera non-icteric EARS: auditory canal clear , tympanic membrane intact, clear NOSE: nares patent, no les ions NECK/THYROID: neck supple, no cerv ical lymphadenopathy, no thyromegaly HEART: regular rate and rhy thm, no murmurs, rubs, gallops LUNGS: clear to auscultatio n and palpation bilaterally ABDOMEN: bowel sounds present , soft, nontender, nondistended , no hepatosplenomegaly, no hernias present, no masses palpable NEUROLOGIC: alert and oriented, cranial nerves 2-12 grossly intact, motor strength normal upper and lower extremities, deep tendon reflexes 2+ symmetrical, sensory exam intact SKIN: no suspicious lesion s EXTREMITIES: no clubbing, cyanosi s, or edema PERIPHERAL PULSES: 2+ posterior tibial, 2+ radial, 2+ carotid BACK: spine nontender to p alpation MUSCULOSKELETAL: no swelling or defor mity MALE GENITOURINARY: no hernia, no penile lesions or discharge, no testicular mass LYMPH NODES: no palpable adenopat hy PSYCH: alert, oriented, cog nitive function intact, normal affect normal
--- OUTSIDE RECORDS SUMMARY | 2024-06-24 04:34 | XMS_ITS | Encounter Summary ---
Author Organization [facility] alth Address [address] [place] [place] [address] Care Team Providers Care Agronomy Technician Name Role Phone Juan Haddad MD Unavailable [phone] Trye Jennings MD Unavailable [phone] [facility], [facility] Primary Care Provider Reason for Visit * Test/Procedure/Other (Routine) - Closed Specialty Diagnoses / Procedures Referred By Contac t Referred To Contact Radiology Diagnoses Low back pain, unspecified back pain laterality, unspecified chronicity, unspecified whether sciatica present Procedures XR LUMBAR SPINE 2 OR 3 VW Andrew Staley PA-C [address] [facility] [place] [address] Phone: tel: fax: Referral ID Status Reason Start Date Expiration Date Visits Re quested Visits Authorized [id number] Closed 11/10/2023 11/09/2024 1 1 Encounter Details Date Type Department Care Team (Latest Contact Info) Description 11/15/2023 8:00 AM EDT Ancillary Procedure [address] [place] [address] Low back pain, unspecified back pain laterality, unspecified chronicity, unspecified whether sciatica present Discharge Disposition: Home/Self Care Social History Tobacco [...] and Family Not on file 09/30/2020 Attends [employer] Not on file 09/30 Active Member [...] Name Priority Date/Time Associated Diagnosis Comments XR THORACIC SPINE 2 VW Routine 11/15/2023 8:01 AM EDT Low back pain, unspecified back pain laterality, unspecified chronicity, unspecified whether sciatica present XR LUMBAR SPINE 2 OR 3 VW Routine 11/15/2023 8:01 AM EDT Low back pain, unspecified back pain laterality, unspecified chronicity, unspecified whether sciatica present documented in this encounter Results * XR LUMBAR SPINE 2 OR 3 VW (11/15/2023 8:01 AM EDT) Workstation ID Dictating [facility] Anatomical Region Laterality Modality L-Spine Computed Radiogr aphy 11/15/2023 7:52 AM EDT Impressions 11/15/2023 12:05 PM EDT Please refer to the report of thoracic spine radiographs 11/15/2023 Narrative Procedure Note Chato Shaw MD - 11/15/2023 Impression: Please refer to the report of thoracic spine radiographs11/15/2023 us Andrew Staley PA-C LG RIS DIAG IMAGING ORDERABLES Final Result * XR THORACIC SPINE 2 VW (11/15/2023 8:01 AM EDT) Workstation ID Dictating [facility] RAD[facility] Anatomical Region Laterality Modality T-Spine Computed Radiogr [...] L5-S1. Mild to moderate coronal plane thoracolumbarcurvature. us Andrew Staley PA-C LG RIS DIAG IMAGING ORDERABLES Final Result documented in this encounter Visit Diagnoses Diagnosis Low back pain, unspecified back pain laterality, unspecified chronicity, unspecified whether sciatica present documented in this encounter Care Teams Agronomy Technician Relationship Specialty Start Date End Date Txfr Provider [facility], [facility] [address] [facility] [address] [place] [address] PCP - General Family Practice 07/11/23 12/11/23 Juan Haddad MD [address] [facility] [place] [address] Otolaryngology 09/23/17 Trey Jennings MD [address] [place] [address] [address] [place] [address] [facility] Specialist Cardiothoracic Surgery 06/27/22 documented as of this encounter
--- OUTSIDE RECORDS SUMMARY | 2024-06-24 04:34 | XMS_ITS | Clinical Summary ---
Author Organization [facility] [address] [address] Care Team Providers Care Cutter Machine Name Role Phone Provider, Miki RICHARDS Primary Care Provider Un available Social History Tobacco Use Types Packs/Day Years Used Date Smoking Tobacco: Never Assessed Sex and Gender Information Value Date Recorded Sex Assigned at Not on file Legal Sex Male 10:24 PM EDT Gender Identity Not on file Sexual Orientation Not on file Plan of Treatment Not on file Care Teams Cutter Machine Relationship Specialty Start Date End Date Miki Alvarez MD None PCP - General 10/16/13
--- OUTSIDE RECORDS SUMMARY | 2024-06-24 04:34 | XMS_ITS | Patient Health Record ---
Author Organization [facility] Address [address] [place] [address] Care Team Providers Care Etl Tester Name Role Phone Rafael Howard Primary Care Provider Allergies Allergen (clinical drug ingredient) Drug/Non Drug Allergy documented on EMR Reaction Allergy Type Onset Date Status sertraline Zoloft Unknown Drug Allergy Active PCN (uncoded) Unknown Allergy Active Results Component Value Reference Range Notes Urine Microscopic Reviewed date:04/12/2024 04:18:56 PM Interpretation: Performing Lab: Notes/Report: White Cells 0-2 NEGATIVE Red Blood Cells NEGATIVE NEGATIVE Squamous Epithelial NEGATIVE NEGATIVE Bacteria NEGATIVE NEGATIVE Urinalysis with Microscopic* Reviewed date:04/12/2024 04:18:56 PM Interpretation: Performing Lab: Notes/Report: Reason For Referral No Information Immunizations Vaccine Route Administration Date Status Comme nts Flu Shot, Quad - Adult Unknown 04/20/2022 Refused Fluzone, quadrivalent Unknown 04/03/2024 Refused Social History Tobacco Use: Social History Observation Description Date Details (start date - stop date) Never Smoker NA - NA Tobacco Use/Smoking Question Answer Notes Are you a nonsmoker AUDIT-C (Standard) Question Answer Notes Did you have a drink containing alcohol in the p ast year? No Points 0 Interpretation Negative Problems Problem Type SNOMED Code ICD Code Onset Dates Problem Status W/U Status Risk Notes Problem [id number] Essential hypertension (I10) Active confirmed Problem [id number] Encounter for well adult exam with abnormal findings (Z00.01) Active confirmed Problem [id number] Obesity (BMI 30.0-34.9) (E66.9) Active confirmed Vital Signs Heart Rate 65 /min 04/03/2024 Oximetry 95 % 04/03/2024 Blood pressure diastolic 72 mm Hg 04/03/2024 Height 72.50 in 04/03/2024 Blood pressure systolic 136 mm Hg 04/03/2024 Weight 207 lbs 04/03/2024 BMI 27.69 kg/m2 04/03/2024 Encounters Encounter Location Date Provider Diagnosis [facility] [address] [place] [address] 04/03/2024 Rafael Howard 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 and Routine adult health maintenance w\o abnormal finding Z00.00 Assessments Encounter Date Diagnosis (ICD Code) Assessment Notes Treat ment Notes Treatment Clinical Notes 04/03/2024 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 (ICD-10 - Z02.4) 04/03/2024 Routine adult health maintenance w\o abnormal finding (ICD-10 - Z00.00) Plan Of Treatment No Information Insurance Providers Payer Name Payer Address Payer Phone Subscriber Number Group Number Insured Name Patient Relationship to Insured Coverage Start Date Coverage End Date [facility] [id number] [place] [phone] [id number] Robert Alexis Self - patient is the insured 1 Medical (General) History Medical History History ICD Code Agenesis L Kidney Lyme Dz 2016 HTN Surgical History Surgery Date(Month/Year) CTS Sx b/l Hospitalization History Reason Date(Month/Year) see above
--- OUTSIDE RECORDS SUMMARY | 2024-06-24 04:35 | XMS_ITS | Encounter Summary ---
Author Organization [facility] alth Address [address] [place] [address] Care Team Providers Care Finance Vice President Name Role Phone Kilo Wang MD Unavailable [phone] Juan Haddad MD Unavailable [phone] Dasha Sheppard PA-C Primary Care Provider Trey Jennings MD Unavailable Reason for Visit * Reason Comments Constipation Encounter Details Date Type Department Care Team (Late st Contact Info) Description 09/25/2021 8:00 AM EDT Office Visit [facility] [address] [address] Delfino Aragon CRNP [address] [address] Irritable bowel syndrome with constipation (Primary Dx) Discharge Disposition: Home/Self Care Social [...] and Family Not on file 09/30/2020 Attends [employer] Services Not on file 09/30 Active Member [...] Sign Reading Time Taken Comments Blood Pressure 124/82 09/25/2021 7:54 AM EDT Pulse - - Temperature - - Respiratory Rate - - Oxygen Saturation - - Inhaled Oxygen Concentration - - Weight 105 kg (232 lb) 09/25/2021 7:54 AM EDT Height 182.9 cm (6') 09/25/2021 7:54 AM EDT Body Mass Index 31.46 09/25/2021 7:54 AM EDT documented in this encounter Patient Instructions * Patient Instructions* Yolette Singletary MA - 09/25/2021 8:11 AM EDT 1. Continue metamucil 2. Miralax 1 capful daily - adjust as needed to have soft stools that are easy to pass 3. F/up with SARAH in 3 months documented in this encounter Progress Notes * Yolette Singletary MA - 09/25/2021 8:10 AM EDT Carter Taveras Reuben Lucio. discharged by: Yolette Singletray MA. * Delfino Aragon CRNP - 09/25/2021 8:00 AM EDT Subjective: Carter Gomes Jr. is a 56 y.o. male who presents for follow-up office visit regarding intermittentabdominal pain and constipation. He was last seen in March regarding the same, as well as irregular bowel habits. As you may recall, he had an episode of diverticulitis in August of last year. He has previously been advised to use fiber and probiotics, with temporary improvement symptoms. After his last office visit, a CT showed diverticulosis without diverticulitis. He has had waxing and waningsymptoms. He sometimes has [place] 1 stools and feeling that he needs to defecate, but cannot, thenhas abdominal pain and bloating. His symptoms resolve with defecation. He was given information regarding Low FODMAP diet, and he has been playing around with that. He is taking Metamucil daily. His last colonoscopy was in June 2019 at a which time he had diverticular disease and two 6-12 mm sessile serrated adenomas. A three year recall was advised. He is alone for today's office visit Past Medical History: Diagnosis Date ??? Adenoma of left adrenal gland ??? Asthma ??? Lyme disease ??? SI (sacroiliac) joint inflammation (CMS/HCC) 08/06/2021 Past Surgical History: Procedure Laterality Date ??? ENDOSCOPY, ESOPHAGUS 04/22/2016 ??? HX CARPAL TUNNEL RELEASE Right 03/02/2018 Procedure: DECOMPRESSION NERVE MEDIAN CARPAL TUNNEL RELEASE: Carpal Tunnel Release; Surgeon: Devante Portillo DO; Location: [facility] OR; Laterality: Right; ??? HX CARPAL TUNNEL RELEASE Left 03/23/2018 Procedure: DECOMPRESSION NERVE MEDIAN CARPAL TUNNEL RELEASE: Carpal Tunnel Release; Surgeon: Devante Portillo DO; Location: [facility] OR; Laterality: Left; ??? HX COLONOSCOPY 04/22/2016 ??? HX CYST REMOVAL approx 2015 beneath eye-done at MD office w/ local anesthesia ??? HX DECOMPRESSION NERVE CUBITAL TUNNEL RELEASE Left 03/23/2018 Procedure: DECOMPRESSION NERVE CUBITAL TUNNEL RELEASE: Cubital Tunnel Release; Surgeon: Devante Portillo DO; Location: [facility] OR; Laterality: Left; Current prescriptions, [id number]-iae-[id number] medications, herbal medications and vitamin/mineral/dietarysupplements have been documented during this encounter. Review of Systems HENT: Positive for hearing loss and tinnitus. Eyes: Positive for blurred vision. Gastrointestinal: Positive for constipation. Musculoskeletal: Positive for back pain. Objective: Vitals: Visit Vitals BP 124/82 Ht 1.829 m (6') Wt 105 kg (232 lb) BMI 31.46 kg/m?? Physical Exam Vitals reviewed. Constitutional: General: He is not in acute distress. Appearance: Normal appearance. He is normal weight. He is not ill-appearing, toxic-appearing or diaphoretic. Eyes: General: No scleral icterus. Skin: General: Skin is warm and dry. Coloration: Skin is not jaundiced or pale. Neurological: General: No focal deficit present. Mental Status: He is alert and oriented to person, place, and time. Psychiatric: Mood and Affect: Mood normal. Behavior: Behavior normal. Thought Content: Thought content normal. Judgment: Judgment normal. Diagnostic Data: Results for CARTER GOMES JR. ( ) as of 09/25/2021 06:14 Ref. Range 08/19/2020 04:04 03/04/2021 16:46 04/09/2021 11:46 04/14/2021 10:22 Glucose (serum) Latest Ref Range: 65 - 100 mg/dL 109 (H) 91 88 Sodium Latest Ref Range: 135 - 145 mmol/L 139 136 138 138 Potassium Latest Ref Range: 3.4 - 5.3 mmol/L 4.1 3.7 4.1 4.1 Blood Urea Nitrogen Latest Ref Range: 8 - 22 mg/dL 12 14 16 9 Creatinine Latest Ref Range: 0.7 - 1.2 mg/dL 1.2 1.1 1.4 (H) 0.9 Bilirubin Total Latest Ref Range: 0.2 - 1.2 mg/dL 1.0 1.0 0.5 Alkaline Phosphatase Latest Ref Range: 34 - 104 U/L 68 66 62 AST (SGOT) Latest Ref Range: 13 - 40 U/L 15 19 18 ALT (SGPT) Latest Ref Range: 7 - 52 U/L 19 21 23 WBC Count Latest Ref Range: 4.8 - 10.8 10*3/uL 11.8 (H) 7.2 6.8 Hgb Latest Ref Range: 14.0 - 18.0 g/dL 15.9 15.3 15.0 MCV Latest Ref Range: 80.0 - 100.0 fL 86.4 86.9 87.3 MCH Latest Ref Range: 27.0 - 33.0 pg 29.6 29.1 29.4 Platelet Count Latest Ref Range: 150 - 450 10*3/uL 222 216 251 05/01/21 CT Ab/Pel: Extensive diverticulosis without evidence of diverticulitis. Solitary RIGHT kidney without hydronephrosis. 08/29/20 CT Ab/Pel: 1. There is a new area of diverticular inflammation involving the distal descending colon. 2. There is a stable area of diverticular inflammation involving the sigmoid colon. 3. There are additional incidental findings as described above. 06/26/19 Colonoscopy (Dr. Becerril): - Moderate diverticulosis in the sigmoid colon, in the ?descending colon and in the transverse colon. There was ?evidence of an impacted diverticulum. ?- Two 6 to 12 mm polyps in the sigmoid colon and in the ?ascending colon, removed with a cold snare. Resected ?and retrieved. ?- One 1 mm polyp in the ascending colon, removed with a ?cold biopsy forceps. Resected and retrieved. 1. Colon biopsy, sigmoid polyp: Hyperplastic polyp. 2. Colon biopsy, descending polyps:Sessile serrated polyp fragments. Negative for high-grade dysplasia or malignancy. 04/22/16 Colonoscopy (Dr. Becerril): - Five 4 to 18 mm polyps in the transverse colon, in ?the ascending colon and in the cecum. Resected and ?retrieved. Tubular adenoma and sessile serrated adenomas ?- Severe diverticulosis in the entire examined colon. ?There was narrowing of the colon in association with ?the diverticular opening. Day-diverticular erythema ?was seen. There was evidence of an impacted ?diverticulum. There was no evidence of diverticular ?bleeding. ?- Non-bleeding internal hemorrhoids. 04/22/16 EGD (Dr. Becerril): - Normal esophagus. ?- Normal examined duodenum. ?- A single gastric polyp. Resected and retrieved. Fundic gland polyp Impression/Plan: Impression: 1. Irritable bowel syndrome with constipation Dmitry is doing well today. His intermittent episodes of constipation and abdominal pain are most consistent with irritable bowel syndrome. I advised the addition of miralax to his fiber supplement, and he should titrate this for desired effect. If he would continue to have issues, then would consider switching to Linzess. Plan: 1. Continue metamucil 2. Miralax 1 capful daily - adjust as needed to have soft stools that are easy to pass 3. F/up with SARAH in 3 months Greater than 50% of the patient's 10 minute office visit was spent in ngud-gh-viod counseling. * Vilma Hightower - 09/25/2021 7:55 AM EDT Carter Gomes Jr. roomed by: Vilma Hightower. Dasha Sheppard PA-C Patient DOES NOT request a pediatric psychologist during any office visit exams that will be performed. documented in this encounter Plan of Treatment Not on file documented as of this encounter Goals Goal Patient Goal Type Associated Problems Recent Progress Patient-Stated? Author Blood Pressure < 140/90 Blood Pressure 160/96( 024 8:13 AM EDT) No Kilo Wang MD documented as of this encounter Visit Diagnoses Diagnosis Irritable bowel syndrome with constipation- Primary Irritable bowel syndrome documented in this encounter Care Teams Finance Vice President Relationship Specialty Start Date End Date Dasha Sheppard PA-C [address] [place] [address] [address] [address] PCP - General Family Practice 04/12/18 07/10/23 Kilo Wang MD Consulting Physician Neurology 08/30/16 12/01/21 Juan Haddad MD [address] [place] [address] [address] [address] Otolaryngology 09/23/17 Trey Jennings MD [address] [facility] [address] [address] Consulting Physician Cardiothoracic Surgery 07/13/21 documented as of this encounter
--- OUTSIDE RECORDS SUMMARY | 2024-06-24 04:35 | XMS_ITS | Encounter Summary ---
Author Organization [facility] alth Address [address] [place] [address] Care Team Providers Care Exterminator Helper Name Role Phone Juan Haddad MD Unavailable [phone] Dasha Sheppard PA-C Primary Care Provider Gureita Elliott PA-C Unavailable [phone] Matthew Rushing MD Unavailable [phone] Reason for Referral * Test/Procedure/Other (Routine) - Closed Specialty Diagnoses / Procedures Referred By Contac t Referred To Contact Diagnoses Thoracic aortic aneurysm without rupture (CMS/HCC) Procedures MR ANGIOGRAM CHEST W WO CONTRAST Trey Jennings MD [address] [place] [address] Phone: tel: fax: Referral ID Status Reason Start Date Expiration Date Visits Re quested Visits Authorized [id number] Closed 06/03/2022 11/30/2022 1 1 Reason for Visit * Test/Procedure/Other (Routine) - Closed Specialty Diagnoses / Procedures Referred By Contac t Referred To Contact Diagnoses Thoracic aortic aneurysm without rupture (CMS/HCC) Procedures MR ANGIOGRAM CHEST W WO CONTRAST Trey Jennings MD [address] [address] Phone: tel: fax: Referral ID Status Reason Start Date Expiration Date Visits Re quested Visits Authorized [id number] Closed 06/03/2022 11/30/2022 1 1 Encounter Details Date Type Department Care Team (Latest Contact Info) Description 06/06/2022 8:05 AM EST - 06/06/2022 11:59 PM EST Hospital Encounter [facility] [address] [place] [address] Trey Jennings MD [address] [place] [address] [address] [place] [address] Discharge Disposition: Home/Self Care Social History Tobacco [...] and Family Not on file 09/30/2020 Attends [employer] Services Not on file 09/30 Active Member [...] on file documented as of this encounter Medications at Time of Discharge amLODIPine (NORVASC) 5 MG tablet Take 1 tablet by mouth daily - Call TH for Md appt. 90 tablet 1 10/14/2021 10/02/2023 documented as of this encounter Plan of Treatment Not on file documented as of this encounter Goals Goal Patient Goal Type Associated Problems Recent Progress Patient-Stated? Author Blood Pressure < 140/90 Blood Pressure 160/96( 024 8:13 AM EDT) Kilo Mora MD documented as of this encounter Procedures Procedure Name Priority Date/Time Associated Diagnosis Comments MR ANGIOGRAM CHEST W WO CONTRAST Routine 06/06/2022 9:37 AM EST Thoracic aortic aneurysm without rupture documented in this encounter Results * MR ANGIOGRAM CHEST W WO CONTRAST (06/06/2022 9:37 AM EST) Workstation ID Dictating [facility] Anatomical Region Laterality Modality Chest Magnetic Resonan ce 06/06/2022 9:04 AM EST Impressions 06/07/2022 12:30 PM EST 1. Again seen is aneurysmal dilatation of the sinuses of Valsalva maximally measuring 4.7 cm when measured sinus to sinus. The appearance is unchanged when compared to the prior exam. There is no evidence for acute aortic pathology. 2. ??The aortic valve is trileaflet. ??There is no overt aortic stenosis or insufficiency. Narrative 06/07/2022 12:30 PM EST Cardiovascular MRA of the Chest without and with intravenous contrast Date: ??06/06/2022 History: ??Thoracic aortic aneurysm. ??This study is performed to assess aortic anatomy. Technique: ??Siemens 1.5 T Avanto MRI scanner. * Multiplanar Turbo spin echo and gradient echo imaging for anatomic definition. * Dynamic cine imaging (SSFP) * Contrast-enhanced volume sets acquired for three-dimensional MRA reconstructions after injection of gadolinium contrast (20 mL Dotarem). * For more optimal morphologic evaluation, off-line advanced post-processing of the 3-D data was performed (using multiplanar, [id number], and/or volume-rendered reconstructions). Comparison: ??Prior MR from June 18, 2021 Findings: The chest wall, mediastinum, pulmonary arteries, and pericardium are normal. ??No adenopathy is identified. ??Limited imaging through the lungs reveals no gross abnormalities. ??Limited evaluation of the upper abdomen is within normal limits. Again seen is an ascending thoracic aortic aneurysm maximally measuring 4.7 cm at the sinuses of Valsalva when measured sinus to sinus. Findings are unchanged when compared to the prior study. There is no evidence for acute aortic pathology, such as dissection, intramural hematoma, or contained rupture. ??The arch vessel branching pattern is normal three-vessel. ??All of the arch branch vessels appear widely patent in their proximal portions. Milk Treater dimensions of the thoracic aorta are as follows: ?? 2.7 x 2.6 ??cm at the aortic annulus 4.7 ??cm at the sinuses of Valsalva, measured sinus to sinus (the sinotubular junction is preserved) 3.4 ??cm in the mid ascending aorta 3.2 ??cm at the distal ascending aorta 2.9 ??cm at the mid transverse arch 2.6 ??cm at the proximal descending thoracic aorta 2.4 ??cm at the diaphragmatic hiatus. The ratio of the maximal cross sectional area of the aorta (9.0 sq cm) to the patient's height in meters is less than 10 cm2/m. Valves: The aortic valve is trileaflet. There is no aortic stenosis. There is no aortic insufficiency. Procedure Note Lin, Chato, MD - 06/07/2022 Cardiovascular MRA of the Chest without and with intravenous contrast Date: 06/06/2022 History: Thoracic aortic aneurysm. This study is performed to assessaortic anatomy. Technique: Siemens 1.5 T Avanto MRI scanner. * Multiplanar Turbo spin echo and gradient echo imaging for anatomicdefinition. * Dynamic cine imaging (SSFP) * Contrast-enhanced volume sets acquired for three-dimensional MRAreconstructions after injection of gadolinium contrast (20 mL Dotarem). * For more optimal morphologic evaluation, off-line advancedpost-processing of the 3-D data was performed (using multiplanar,[id number], and/or volume-rendered reconstructions). Comparison: Prior MR from June 18, 2021 Findings: The chest wall, mediastinum, pulmonary arteries, and pericardium arenormal. No adenopathy is identified. Limited imaging through the lungsreveals no gross abnormalities. Limited evaluation of the upper abdomenis within normal limits. Again seen is an ascending thoracic aortic aneurysm maximally measuring4.7 cm at the sinuses of Valsalva when measured sinus to sinus. Findingsare unchanged when compared to the prior study. There is no evidence foracute aortic pathology, such as dissection, intramural hematoma, orcontained rupture. The arch vessel branching pattern is normalthree-vessel. All of the arch branch vessels appear widely patent intheir proximal portions. Milk Treater dimensions of the thoracic aorta are as follows: 2.7 x 2.6 cm at the aortic annulus 4.7 cm at the sinuses of Valsalva, measured sinus to sinus (thesinotubular junction is preserved) 3.4 cm in the mid ascending aorta 3.2 cm at the distal ascending aorta 2.9 cm at the mid transverse arch 2.6 cm at the proximal descending thoracic aorta 2.4 cm at the diaphragmatic hiatus. The ratio of the maximal cross sectional area of the aorta (9.0 sq cm) tothe patient's height in meters is less than 10 cm2/m. Valves: The aortic valve is trileaflet. There is no aortic stenosis. There is noaortic insufficiency. Impression: 1. Again seen is aneurysmal dilatation of the sinuses of Valsalvamaximally measuring 4.7 cm when measured sinus to sinus. The appearance isunchanged when compared to the prior exam. There is no evidence for acuteaortic pathology. 2. The aortic valve is trileaflet. There is no overt aortic stenosis orinsufficiency. us Trey Jennings MD [facility] MR ORDERABLES Final Result documented in this encounter Visit Diagnoses Diagnosis Thoracic aortic aneurysm without rupture (CMS/HCC) Thoracic aneurysm without mention of rupture documented in this encounter Administered Medications Inactive Administered Medications - up to 3 most recent administrations Medication Order MAR Action Action Date Dose Rate Site gadoterate meglumine (DOTAREM) 0.5 mmol/mL VESICANT SOLN 20 mL 20 mL, Intravenous, IMG ONCE PRN, Other, Starting on 06/06/22 at 0937, For 1 dose, Monitor site closely as product is a VESICANT. Given 06/06/2022 9:37 AM EST 20 mLs left antecubital documented in this encounter Care Teams Exterminator Helper Relationship Specialty Start Date End Date Dasha Sheppard PA-C [address] [address] PCP - General Family Practice 04/12/18 07/10/23 Juan Haddad MD [address] [address] Otolaryngology 09/23/17 Guerita Elliott PA-C [address] [place] [address] [address] [address] [facility] Specialist Cardiothoracic Surgery 01/03/22 06/27/22 Matthew Rushing MD [address] [place] [address] [address] [address] [facility] Specialist Cardiology - General 06/06/22 06/06/22 documented as of this encounter
--- OUTSIDE RECORDS SUMMARY | 2024-06-24 04:35 | XMS_ITS | Encounter Summary ---
Author Organization [facility] alth Address [address] [address] Care Team Providers Care Forcer Maker Name Role Phone Juan Haddad MD Unavailable [phone] Dasha Sheppard PA-C Primary Care Provider Guerita Elliott PA-C Unavailable [phone] Matthew Rushing MD Unavailable Reason for Visit * Reason Comments Back Pain Encounter Details Date Type Department Care Team (Late st Contact Info) Description 03/07/2022 8:05 AM EDT [facility] [address] [place] [address] Andrew Friend MD [address] [place] [address] Acute right-sided low back pain, unspecified whether sciatica present (Primary Dx); Acute right-sided low back pain without sciatica Discharge Disposition: Home/Self Care Social History Tobacco [...] and Family Not on file 09/30/2020 Attends Worship Services Not on file 09/30 Active Member [...] Sign Reading Time Taken Comments Blood Pressure 136/72 03/07/2022 8:06 AM EDT Pulse 84 03/07/2022 8:06 AM EDT Temperature 36.2 ??C (97.2 ??F) 03/07/2022 8:06 AM ED T Respiratory Rate 16 03/07/2022 8:06 AM EDT Oxygen Saturation 97% 03/07/2022 8:06 AM EDT room air Inhaled Oxygen Concentration - - Weight 98.9 kg (218 lb) 03/07/2022 8:06 AM EDT Height 182.9 cm (6') 03/07/2022 8:06 AM EDT Body Mass Index 29.57 03/07/2022 8:06 AM EDT documented in this encounter Patient Instructions * Patient Instructions* Andrew Friend MD - 03/07/2022 8:27 AM EDT Images from the original note were not included. Tylenol 325 mg, take 1-2 tabs po q8h as needed for pain. Medications to be taken/used as directed. If you have been prescribed medications from other physicians, please take those medications as directed. Please read all patient education handout regarding your diagnosis. It is Strongly Recommended to follow up with your Primary care provider if your symptoms do not improve in 72 Hours or return to nearest [facility]. ER warnings provided: go to ER if symptoms worsen at any time or cause worry. Or call 911. Back Pain: Care Instructions Overview In most cases, there isn't a clear cause for back pain. It may be related to problems with muscles and ligaments of the back. It may also be related to problems with the nerves, discs, or bones of the back. Moving, lifting, standing, sitting, or sleeping in an awkward way can strain the back. Arthritis is another cause of back pain. Although it may hurt a lot, back pain usually improves on its own within several weeks. Most peoplerecover in 12 weeks or less. Using self-care, such as ice or heat and light activity (like walking)may help you feel better sooner. Follow-up care is a zelaya part of your treatment and safety. Be sure to make and go to all appointments, and call your doctor if you are having problems. It's also a good idea to know your test resultsand keep a list of the medicines you take. How can you care for yourself at home? Sit or lie in positions that are most comfortable and reduce your pain. Try one of these positions when you lie down: ? Lie on your back with your knees bent and supported by pillows. ? Lie on the floor with your legs on the seat of a sofa or chair. ? Lie on your side with your knees and hips bent and a pillow between your legs. ? Lie on your stomach if it does not make pain worse. ??? Do not sit up in bed, and avoid soft couches and twisted positions. Bed rest can help relieve pain at first, but it delays healing. Avoid bed rest after the first day of back pain. ??? Change positions every 30 minutes. If you must sit for long periods of time, take breaks from sitting. Get up and walk around, or lie in a comfortable position. ??? Try using a heating pad on a low or medium setting for 15 to 20 minutes every 2 or 3 hours. Trya warm shower in place of one session with the heating pad. ??? You can also try an ice pack for 10 to 15 minutes every 2 to 3 hours. Put a thin cloth between the ice pack and your skin. ??? Take pain medicines exactly as directed. ? If the doctor gave you a prescription medicine for pain, take it as prescribed. ? If you are not taking a prescription pain medicine, ask your doctor if you can take an gjle-put-dwspvqx medicine. ??? Take short walks several times a day. You can start with 5 to 10 minutes, 3 or 4 times a day, and work up to longer walks. Walk on level surfaces and avoid hills and stairs until your back is better. ??? Return to work and other activities as soon as you can. Continued rest without activity is usually not good for your back. ??? To prevent future back pain, do exercises to stretch and strengthen your back and stomach. Learn how to use good posture, safe lifting techniques, and proper body mechanics. When should you call for help? Call your doctor now or seek immediate medical care if: ? You have new or worsening numbness in your legs. ? You have new or worsening weakness in your legs. (This could make it hard to stand up.) ? You lose control of your bladder or bowels. Watch closely for changes in your health, and be sure to contact your doctor if: ? You have a fever, lose weight, or don't feel well. ? You do not get better as expected. Where can you learn more? Scan the QR code or Go to https://www.[email or web address]/[facility] Enter I594 in the search box to learn more about Back Pain: Care Instructions. Current as of: August 26, 2021?Content Version: 13.4 ?? [employer]. Care instructions adapted under license by your healthcare professional. If you have questions about a medical condition or this instruction, always ask your healthcare professional. [employer] disclaims any warranty or liability for your use of this information. Back Pain, Emergency or Urgent Symptoms: Care Instructions Overview Many people have back pain at one time or another. In most cases, pain gets better with self-care that includes amri-rfc-nruhelz pain medicine, ice, heat, and exercises. Unless you have symptoms of a severe injury or heart attack, you may be able to give yourself a fewdays before you call a doctor. But some back problems are very serious. Do not ignore symptoms thatneed to be checked right away. Follow-up care is a zelaya part of your treatment and safety. Be sure to make and go to all appointments, and call your doctor if you are having problems. It's also a good idea to know your test resultsand keep a list of the medicines you take. How can you care for yourself at home? Sit or lie in positions that are most comfortable and that reduce your pain. Try one of these positions when you lie down: ? Lie on your back with your knees bent and supported by pillows. ? Lie on the floor with your legs on the seat of a sofa or chair. ? Lie on your side with your knees and hips bent and a pillow between your legs. ? Lie on your stomach if it does not make pain worse. ??? Do not sit up in bed, and avoid soft couches and twisted positions. Bed rest can help relieve pain at first, but it delays healing. Avoid bed rest after the first day. ??? Change positions every 30 minutes. If you must sit for long periods of time, take breaks from sitting. Get up and walk around, or lie flat. ??? Try using a heating pad on a low or medium setting, for 15 to 20 minutes every 2 or 3 hours. Try a warm shower in place of one session with the heating pad. You can also buy single-use heat wrapsthat last up to 8 hours. You can also try ice or cold packs on your back for 10 to 20 minutes at a time, several times a day. (Put a thin cloth between the ice pack and your skin.) ??? Take pain medicines exactly as directed. ? If the doctor gave you a prescription medicine for pain, take it as prescribed. ? If you are not taking a prescription pain medicine, ask your doctor if you can take an jsnc-bdp-xaklevz medicine. When should you call for help? Call 911 anytime you think you may need emergency care. For example, call if: ? You are unable to move a leg at all. ? You have back pain with severe belly pain. ? You have symptoms of a heart attack. These may include: ? Chest pain or pressure, or a strange feeling in the chest. ? Sweating. ? Shortness of breath. ? Nausea or vomiting. ? Pain, pressure, or a strange feeling in the back, neck, jaw, or upper belly or in one or both shoulders or arms. ? Lightheadedness or sudden weakness. ? A fast or irregular heartbeat. After you call 911, the snow plow operator may tell you to chew 1 adult-strength or 2 to 4 low-dose aspirin. Wait for an ambulance. Do not try to drive yourself. Call your doctor now or seek immediate medical care if: ? You have new or worse symptoms in your arms, legs, chest, belly, or buttocks. Symptoms may include: ? Numbness or tingling. ? Weakness. ? Pain. ? You lose bladder or bowel control. ? You have back pain and: ? Your pain is severe after injuring your back during a fall or accident. ? You have had a back injury before that needed treatment. ? Your pain has lasted longer than 4 weeks. ? You have had weight loss you cannot explain. ? You have a fever. ? You have cancer now or have had it before. Watch closely for changes in your health, and be sure to contact your doctor if you are not gettingbetter as expected. Where can you learn more? Scan the QR code or Go to https://www.[email or web address]/[facility] Enter S904 in the search box to learn more about Back Pain, Emergency or Urgent Symptoms: Care Instructions. Current as of: August 26, 2021?Content Version: 13.4 ?? [employer]. Care instructions adapted under license by your healthcare professional. If you have questions about a medical condition or this instruction, always ask your healthcare professional. [employer] disclaims any warranty or liability for your use of this information. Back Stretches: Exercises Introduction Here are some examples of exercises for stretching your back. Start each exercise slowly. Ease off the exercise if you start to have pain. Your doctor or physical therapist will tell you when you can start these exercises and which ones will work best for you. How to do the exercises Overhead stretch 1. Stand comfortably with your feet shoulder-width apart. 2. Looking straight ahead, raise both arms over your head and reach toward the ceiling. Do not allow your head to tilt back. 3. Hold for 15 to 30 seconds, then lower your arms to your sides. 4. Repeat 2 to 4 times. Side stretch 1. Stand comfortably with your feet shoulder-width apart. 2. Raise one arm over your head, and then lean to the other side. 3. Slide your hand down your leg as you let the weight of your arm gently stretch your side muscles. Hold for 15 to 30 seconds. 4. Repeat 2 to 4 times on each side. Press-up 1. Lie on your stomach, supporting your body with your forearms. 2. Press your elbows down into the floor to raise your upper back. As you do this, relax your stomach muscles and allow your back to arch without using your back muscles. As your press up, do not letyour hips or pelvis come off the floor. 3. Hold for 15 to 30 seconds, then relax. 4. Repeat 2 to 4 times. Relax and rest 1. Lie on your back with a rolled towel under your neck and a pillow under your knees. Extend your arms comfortably to your sides. 2. Relax and breathe normally. 3. Remain in this position for about 10 minutes. 4. If you can, do this 2 or 3 times each day. Follow-up care is a zelaya part of your treatment and safety. Be sure to make and go to all appointments, and call your doctor if you are having problems. It's also a good idea to know your test resultsand keep a list of the medicines you take. Current as of: August 26, 2021?Content Version: 13.4 ?? [employer]. Care instructions adapted under license by your healthcare professional. If you have questions about a medical condition or this instruction, always ask your healthcare professional. [employer] disclaims any warranty or liability for your use of this information. The patient is advised to apply heat intermittently (avoid sleeping on heating pad). documented in this encounter Progress Notes * Andrew Friend MD - 03/07/2022 8:06 AM EDT Images from the original note were not included. Patient ID: Robert Alexis Jr. is a 56 y.o. male who presents to Urgent Care today. Primary care provider is Dasha Sheppard PA-C. Reports the following: pt presents with c/o right lower back pain for a few days. States that he has a throbbing sensation and that he only has one kidney. States that urine is a little darker than normal. Denies fever. States that pain is worse in the morning. States that he will be traveling to [place] soon. Tx: nothing Onset of symptoms: few days Location of pain: Lower right back Current pain level:#6-7 Work or school note needed:NO Patient is accompanied by No One Room Number: 4 Robert Alexis Jr. roomed by: Katie Elliott CMA Chart Sections reviewed by provider: Subjective: Patient presents with: Back Pain For about for 5 days of right-sided lower back pain. History of having only 1 kidney from . Avoid taking pain medication to avoid injury to the kidney. Pain is aggravated by movement. Does not recall what started it 4-5 days ago. His pain has not worsened. The pain does not radiate down to thegroin. He is producing urine. He has not noticed any blood in his urine. He has not had any fever, chills, nausea, vomiting or other abdominal symptoms. Robert Alexis Jr. is a 56 y.o. male who presents with chief complaint of Back Pain. Chart Review: has Essential hypertension; Asthma; Tubular [...] 1 tablet by mouth daily - Call [facility] for Md appt. (Patient not taking: Reported on 03/07/2022.) 90 tablet 1 ??? predniSONE (DELTASONE) 20 MG tablet Take 1 tablet by mouth 2 times daily for 3 days. 6 tablet 0 ??? tiZANidine (ZANAFLEX) 4 MG TABS Take 1 tablet by mouth every 8 hours as needed. 9 tablet 0 No current facility-administered medications for this visit. He is allergic to quinolones and zoloft [sertraline]. Past medical, social, and family history noncontributory except as noted. Review of Systems Constitutional: Negative. HENT: Negative. Genitourinary: Negative for dysuria, flank pain, frequency, hematuria and urgency. Musculoskeletal: Positive for back pain. Negative for falls, joint pain, myalgias and neck pain. Neurological: Negative. All other systems reviewed and are negative. Objective: Visit Vitals BP 136/72 (BP Source: Right Arm, Position: Sitting, Cuff Size: Large) Pulse 84 Temp 97.2 ??F (36.2 ??C) (Tympanic) Comment (Src): right ear Resp 16 Ht 1.829 m (6') Wt 98.9 kg (218 lb) SpO2 97% Comment: room air BMI 29.57 kg/m?? Physical Exam Vitals and nursing note reviewed. Constitutional: General: He is awake. He is not in acute distress. Appearance: Normal appearance. He is not ill-appearing, toxic-appearing or diaphoretic. HENT: Head: Normocephalic and atraumatic. Eyes: General: Right eye: No discharge. Left eye: No discharge. Extraocular Movements: Extraocular movements intact. Conjunctiva/sclera: Conjunctivae normal. Pulmonary: Effort: Pulmonary effort is normal. No respiratory distress. Musculoskeletal: Lumbar back: Normal. Back: Comments: Straight leg test: Negative Reverse straight leg: Negative Contralateral straight leg: Negative Able to heel walk and toe walk. Patient able to sit onto the exam table, stepping up onto the stool. Able to lay down with no difficulty. Was able to flip over from supine to prone with no difficulty. Was able to step off the exam table by sliding off table while prone and stand erect no difficulty. Neurological: General: No focal deficit present. Mental Status: He is alert and oriented to person, place, and time. Psychiatric: Mood and Affect: Mood normal. Behavior: Behavior normal. Behavior is cooperative. Procedures: Procedures Point Of Care Results Component Value Units UA POC [[id number]] Collected: 03/07/22817 Updated: 03/07/22819 Order Status: Completed Urine Color DILAN Urine Appearance CLEAR Urine Specific [place] 1.025 Urine Glucose Qual NEGATIVE mg/dL Urine Bilirubin NEGATIVE Urine Ketone NEGATIVE mg/dL Urine Blood NEGATIVE Urine pH 6.5 [pH] Urine Protein -Dipstick NEGATIVE mg/dL Urine Urobilinogen 0.2 mg/dL Urine Nitrite NEGATIVE Urine Leukocyte Esterase NEGATIVE Urine Source VOIDED Comment: [address] [place] [id number] No results found. Assessment / Plan: 1. Acute right-sided low back pain, unspecified whether sciatica present 2. Acute right-sided low back pain without sciatica Order Summary Normal Orders This Visit UA POC Future Labs/Procedures Expected by UA POC 03/07/2022 Orders Placed This Encounter Medications ??? tiZANidine (ZANAFLEX) 4 MG TABS Sig: Take 1 tablet by mouth every 8 hours as needed. Dispense: 9 tablet Refill: 0 ??? predniSONE (DELTASONE) 20 MG tablet Sig: Take 1 tablet by mouth 2 times daily for 3 days. Dispense: 6 tablet Refill: 0 Disposition: Home All questions were answered. The patient or guardian was given an after-visit summary. Tylenol 325 mg, take 1-2 tabs po q8h as needed for pain. The patient is advised to apply heat intermittently (avoid sleeping on heating pad). Medications to be taken/used as directed. If you have been prescribed medications from other physicians, please take those medications as directed. Please read all patient education handout regarding your diagnosis. It is Strongly Recommended to follow up with your Primary care provider if your symptoms do not improve in 72 Hours or return to nearest [facility]. ER warnings provided: go to ER if symptoms worsen at any time or cause worry. Or call 911. Patient is agreeable to this plan if his symptoms do not improve in 2 days on the steroid and the muscle relaxant he will go to the ER for evaluation for diagnostic imaging.. documented in this encounter Plan of Treatment Not on file documented as of this encounter Goals Goal Patient Goal Type Associated Problems Recent Progress Patient-Stated? Author Blood Pressure < 140/90 Blood Pressure 160/96( 024 8:13 AM EDT) No Kilo Wang MD documented as of this encounter Procedures Procedure Name Priority Date/Time Associated Diagnosis Comments UA POC STAT 03/07/2022 8:18 AM EDT Acute right-sided low back pain, unspecified whether sciatica present documented in this encounter Results * UA POC (03/07/2022 8:18 AM EDT) Urine Color DILAN YELLOW 03/07/2022 8:18 AM EDT [facility] Urine Appearance CLEAR Clear 03/07/20 8:18 AM EDT [facility] Urine Specific [place] 1.025 1.005 - 1.030 03/07/2022 8:18 AM EDT [facility] Urine Glucose Qual NEGATIVE Negative mg/dL 03/07/2022 8:18 AM EDT [facility] Urine Bilirubin NEGATIVE Negative 8:18 AM EDT [facility] Urine Ketone NEGATIVE Negative mg/dL 03/07/2022 8:18 AM EDT [facility] Urine Blood NEGATIVE Negative 03/07/2022 8:18 AM EDT [facility] Urine pH 6.5 5.0 - 8.0 [pH] 03/07/2022 8:18 AM EDT [facility] Urine Protein -Dipstick NEGATIVE Negative mg/dL 03/07/2022 8:18 AM EDT [facility] Urine Urobilinogen 0.2 0.2 - 1.0 mg/dL 03/07/2022 8:18 AM EDT [facility] Urine Nitrite NEGATIVE Negative 03/07/2022 8:18 AM EDT [facility] Urine Leukocyte Esterase NEGATIVE Negative 03/07/2022 8:18 AM EDT [facility] Urine Source VOIDED 03/07/2022 8:18 AM EDT [facility] Comment:[address] [facility] [address] 03/07/2022 8:18 AM EDT 03/07/2022 8:18 AM EDT us Andrew Friend MD URINALYSIS ORDERABLES Final Resu lt [facility] [address] [facility] [place] [id number] documented in this encounter Visit Diagnoses Diagnosis Acute right-sided low back pain, unspecified whether sciatica present- Primary documented in this encounter Care Teams Forcer Maker Relationship Specialty Start Date End Date Dasha Sheppard PA-C [address] [place] [address] [place] [address] PCP - General Family Practice 04/12/18 07/10/23 Juan Haddad MD [address] [place] [address] [address] [address] Otolaryngology 09/23/17 Guerita Elliott PA-C [address] [place] [address] [place] [address] [facility] Specialist Cardiothoracic Surgery 01/03/22 06/27/22 Matthew Rushing MD [address] [place] [address] [facility] Specialist Cardiology - General 03/07/22 03/28/22 documented as of this encounter
--- OUTSIDE RECORDS SUMMARY | 2024-06-24 04:35 | XMS_ITS | Encounter Summary ---
Author Organization [facility]th Address [address] [address] Care Team Providers Care Nurses Assistant Name Role Phone Kilo Wang MD Unavailable [phone] Juan Haddad MD Unavailable Dasha Sheppard PA-C Primary Care Provider Reason for Visit * Reason Onset Date Comments Results 05/01/2021 Encounter Details Date Type Department Care Team (Late st Contact Info) Description 05/01/2021 Telephone [facility] [address] [place] [address] Delfino Aragon CRNP [address] [place] [address] Results Social History Tobacco Use Types Packs/Day Years [...] and Family Not on file 09/30/2020 Attends [employer] Not on file 09/30 Active Member [...] encounter Miscellaneous Notes * Telephone Encounter - Mackenzie Draper LPN - 05/05/2021 4:08 PM EST Noted Thank you Kim Aragon * Telephone Encounter - Delfino Aragon CRNP - 05/05/2021 12:07 PM EST I called and spoke with the patient regarding his CT results. He is feeling better, and his pain isimproved. We will therefore hold off on any further workup at this point. He has follow-up office visit on 06/30/21. However, if he would have worsening symptoms, then would need to consider colonoscopy for further evaluation, and he knows to call if he has recurrent issues. He was in agreement with this plan, and was appreciative of the call * Telephone Encounter - Mackenzie Draper LPN - 05/04/2021 4:21 PM EST Tc from pt notified of results. He stated, he is still having same issues as before. Stated for Kim Aragon to call if he can Please advice Thanks * Telephone Encounter - Delfino Aragon CRNP - 05/01/2021 5:[address] shows diverticulosis, but no evidence of diverticulitis. I called to review this with the patient and to check on his symptoms, but there was no answer. LEFT message to call the office documented in this encounter Plan of Treatment Not on file documented as of this encounter Goals Goal Patient Goal Type Associated Problems Recent Progress Patient-Stated? Author Blood Pressure < 140/90 Blood Pressure 160/96( 024 8:13 AM EDT) No Kilo Wang MD documented as of this encounter Visit Diagnoses Not on filedocumented in this encounter Care Teams Nurses Assistant Relationship Specialty Start Date End Date Dasha Sheppard PA-C [address] [place] [address] PCP - General Family Practice 04/12/18 07/10/23 Kilo Wang MD Consulting Physician Neurology 08/30/16 12/01/21 Juan Hdadad MD [address] [place] [address] Otolaryngology 09/23/17 documented as of this encounter
--- OUTSIDE RECORDS SUMMARY | 2024-06-24 04:35 | XMS_ITS | Encounter Summary ---
Author Organization [facility] alth Address [address] [place] [address] Care Team Providers Care Wrapper Rewinder Name Role Phone Kilo Wang MD Unavailable Juan Haddad MD Unavailable [phone] Dasha Sheppard PA-C Primary Care Provider Trey Jennings MD Unavailable [phone] Reason for Visit * Test/Procedure/Other (Routine) - Closed Specialty Diagnoses / Procedures Referred By Contac t Referred To Contact Radiology Diagnoses Rib pain on left side Procedures XR RIBS LEFT W PA CHEST MIN 3 VW Dasha Sheppard, J[facility] [address] [facility] [address] Phone: tel: fax: Referral ID Status Reason Start Date Expiration Date Visits Re quested Visits Authorized [id number] Closed 08/04/2021 08/04/2022 1 1 Encounter Details Date Type Department Care Team (Latest Contact Info) Description 08/05/2021 4:00 PM EST Ancillary Procedure [address] [place] [address] Rib pain on left side; Chronic left-sided thoracic back pain Discharge Disposition: Home/Self Care Social History [...] and Family Not on file 09/30/2020 Attends [employer] Services Not on file 09/30 Active Member [...] Comments XR THORACIC SPINE 2 VW Routine 08/05/2021 4:04 PM EST Chronic left-sided thoracic back pain XR RIBS LEFT W PA CHEST MIN 3 VW Routine 08/05/2021 4:04 PM EST Rib pain on left side documented in this encounter Results * XR THORACIC SPINE 2 VW (08/05/2021 4:04 PM EST) Anatomical Region Laterality Modality T-Spine Computed Radiogr aphy 08/05/2021 3:50 PM EST Impressions 08/05/2021 4:57 PM EST No fracture or spondylolisthesis in the thoracic spine. Dictating Narrative 08/05/2021 4:57 PM EST PROCEDURE: XR THORACIC SPINE 2 VW HISTORY: Pain. Two views of the thoracic spine were obtained. There are 12 thoracic vertebral bodies. There is a thoracic scoliosis convex toward the RIGHT. Vertebral body heights are maintained. Marginal osteophytes are present. No evidence of a fracture or spondylolisthesis. Procedure Note Steven Anand MD - 08/05/2021 PROCEDURE: XR THORACIC SPINE 2 VW HISTORY: Pain. Two views of the thoracic spine were obtained. There are 12 thoracic vertebral bodies. There is a thoracic scoliosis convex toward the RIGHT. Vertebral body heights are maintained. Marginal osteophytes are present.No evidence of a fracture or spondylolisthesis. IMPRESSION: No fracture or spondylolisthesis in the thoracic spine. Dictating us Dasha Sheppard PA-C, LG [facility] DIAG IMAGING ORD ERABLES Final Result * XR RIBS LEFT W PA CHEST MIN 3 VW (08/05/2021 4:04 PM EST) Anatomical Region Laterality Modality Ribs Left Computed Radiogr aphy 08/05/2021 3:50 PM EST Impressions 08/05/2021 4:57 PM EST No active chest disease. No evidence of a displaced LEFT rib fracture. Scoliosis. Dictating Narrative 08/05/2021 4:57 PM EST PROCEDURE: XR RIBS LEFT W PA CHEST MIN 3 VW HISTORY: pain Erect PA view of the chest was obtained with 3 views of the LEFT ribs. The cardiomediastinal silhouette looks normal. Pulmonary vascularity is normal. Lungs are free of active infiltrates. No pneumothorax or pleural effusion. There is no evidence of a displaced LEFT rib fracture. There is a lumbar scoliosis convex toward the LEFT. Procedure Note Steven Anand MD - 08/05/2021 PROCEDURE: XR RIBS LEFT W PA CHEST MIN 3 VW HISTORY: pain Erect PA view of the chest was obtained with 3 views of the LEFT ribs. The cardiomediastinal silhouette looks normal. Pulmonary vascularity isnormal. Lungs are free of active infiltrates. No pneumothorax or pleuraleffusion. There is no evidence of a displaced LEFT rib fracture. There is a lumbar scoliosis convex toward the LEFT. IMPRESSION: No active chest disease. No evidence of a displaced LEFT rib fracture. Scoliosis. Dictating Dasha Sheppard PA-C [facility] DIAG IMAGING ORD ERABLES Final Result documented in this encounter Visit Diagnoses Diagnosis Rib pain on left side Chest pain, unspecified Chronic left-sided thoracic back pain documented in this encounter Care Teams Wrapper Rewinder Relationship Specialty Start Date End Date Dasha Sheppard PA-C [address] [address] PCP - General Family Practice 04/12/18 07/10/23 Kilo Wang MD Consulting Physician Neurology 08/30/16 12/01/21 Juan Haddad MD [address] [address] Otolaryngology 09/23/17 Trey Jennings MD [address] [place] [id number] Consulting Physician Cardiothoracic Surgery 07/13/21 documented as of this encounter
--- OUTSIDE RECORDS SUMMARY | 2024-06-24 04:35 | XMS_ITS | Encounter Summary ---
Author Organization [facility] alth Address [address] [facility] [place] [address] Care Team Providers Care Accounts Receivable Specialist Name Role Phone Kilo Wang MD Unavailable [phone] Juan Haddad MD Unavailable [phone] Dasha SheppardC Primary Care Provider Trey Jennings MD Unavailable [phone] Reason for Visit * Reason Comments Follow-up TAA follow up Encounter Details Date Type Department Care Team (Late st Contact Info) Description 07/15/2021 10:00 AM EST Office Visit Cardiothoracic Surgery [address] [facility] [address] [place] [address] Provider, Cardiac Surg Thoracic aortic aneurysm without rupture (CMS/HCC) (Primary Dx) Discharge Disposition: Home/Self Care Social [...] Sign Reading Time Taken Comments Blood Pressure 138/78 07/15/2021 9:55 AM EST Pulse 86 07/15/2021 9:55 AM EST Temperature - - Respiratory Rate - - Oxygen Saturation 99% 07/15/2021 9:55 AM EST Inhaled Oxygen Concentration - - Weight - - Height - - Body Mass Index - - documented in this encounter Progress Notes * Guerita Elliott PA-C - 07/13/2021 11:29 AM EST Images from the original note were not included. Robert Alexis Jr. Is a 55 y/o male with past medical history hypertension, hyperlipidemia, asthma,Lyme disease, chewing tobacco use, and adenoma of the L adrenal glad who is here for a 12 month follow up of a known thoracic aortic aneurysm. 04/02/19, initial appointment with Dr. Jennings: CTA chest 12/18/19 showed Sinus of Valsalva: 50.2mmmaximally, ascending aorta 34mm maximallly. Aortic size index is 2.17. Transthoracic echocardiogram11/22/19 showed an EF of 60-65%, no RWMA, no MS/MR, functionally tricuspid AV, no /AI, and no TR. 07/04/20, visit with Guerita Elliott PA-C: SoV 4.8cm, Ascending aorta 3.4cm. No /AI. Norvasc was increased to 10mg daily at that visit. Today, he states he has been feeling well. He has occasional heart palpitations and says he has noticed them more since his diagnosis of diverticulosis. Had Covid-19 infection in March and recovered well, is unvaccinated. He has no history of first degree relative with sudden . Current antihypertensives include: Norvasc 5mg once daily. Home BPs 120-130 systolic. Physical exam: Visit Vitals BP 138/78 (BP Source: Right Arm, Position: Sitting) Pulse 86 SpO2 99% Heart sounds are normal; HR is regular with a rare early beat Lungs are CTA bilaterally Generally well appearing Diagnostic data: MRI/MRA of the chest 06/18/21 has been personally reviewed. The aortic valve morphology is trileaflet with no appreciable stenosis and no appreciable regurgitation. Maximal aortic root dimension (sinus to sinus chord) is 47mm. There is no appreciable effacement ofthe sinotubular junction. Maximal ascending aortic dimension is 35mm. There is no evidence of dissection or rupture. The aortic arch and descending aortic appear normal branching. A/P: Based on these findings, the aneurysm appears stable. Interval follow-up is recommended in 12 months with repeat MRI/MRA Chest. Surgical triggers would include: -aortic aneurysm size of >5.5cm - Aneurysm growth rate greater than 3-5mm/year annualized - Aortic size index greater than 2.75 - Worsened aortic valve function - Dissection/rupture or other high risk features We have given the patient an educational sheet on thoracic aortic aneurysms and the recommended lifestyle changes. In summary, I have encouraged the patient to 1) avoid tobacco products, 2) avoid quinolone antibiotics, 3) avoid heavy (>40lb) exertional lifting, and 4) maintain systolic blood pressure less than 130mmHg. Electronically Signed by GUERITA ELLIOTT PA-C documented in this encounter Plan of Treatment Not on file documented as of this encounter Goals Goal Patient Goal Type Associated Problems Recent Progress Patient-Stated? Author Blood Pressure < 140/90 Blood Pressure 160/96( 024 8:13 AM EDT) No Kilo Wang MD documented as of this encounter Visit Diagnoses Diagnosis Thoracic aortic aneurysm without rupture (CMS/HCC)- Primary Thoracic aneurysm without mention of rupture documented in this encounter Care Teams Accounts Receivable Specialist Relationship Specialty Start Date End Date Dasha Sheppard PA-C [address] [address] PCP - General Family Practice 04/12/18 07/10/23 Kilo Wang MD Consulting Physician Neurology 08/30/16 12/01/21 Juan Haddad MD [address] [address] Otolaryngology 09/23/17 Trey Jennings MD [address] [facility] [address] [place] [address] Consulting Physician Cardiothoracic Surgery 07/13/21 documented as of this encounter
--- OUTSIDE RECORDS SUMMARY | 2024-06-24 04:35 | XMS_ITS | Encounter Summary ---
Author Organization [facility] [address] [facility] [address] Care Team Providers Care Manager Systems Name Role Phone Kilo Wang MD Unavailable [phone] Juan Haddad MD Unavailable [phone] Dasha Sheppard PA-C Primary Care Provider Reason for Visit * Reason Onset Date Comments Refill Request 05/19/2021 Encounter Details Date Type Department Care Team (Late st Contact Info) Description 05/19/2021 Telephone [facility] [address] [place] [address] Delfino Aragon CRNP [address] [place] [address] Refill Request Social History Tobacco Use Types Packs/Day Years [...] Telephone Encounter - Mackenzie Draper LPN - 05/25/2021 4:01 PM EST Tc to pt notified of results and recommendations He v/u and thanked for the call. Please sign for Magalie He will call with any changes. Stated, since last Tuesday he is feeling better Thinks it was just a flare up * Telephone Encounter - Delfino Aragon CRNP - 05/20/2021 12:29 PM EST I do not think he needs colonoscopy at this point. His recent CT (05/01/21) was negative for diverticulitis. He should use a fiber supplement, and he may try bentyl 10mg 4X/day as needed, if he wouldlike something for pain. He has f/up with me on 06/30/21 * Telephone Encounter - Maine Jenkins LPN - 05/19/2021 8:58 AM EST Received call from this pt- he said he was told to call if he started with symptoms of diverticulitis again. He wanted to schedule a CP but I explained he can not have one if he in fact has active diverticulitis. He V/u He is having lower left abdominal that sometimes radiates to his back. No rectal bleeding but lots of mucus noted. No fevers. Delfino- please further advise Sending to [facility] to follow up on and handle. documented in this encounter Plan of Treatment Not on file documented as of this encounter Goals Goal Patient Goal Type Associated Problems Recent Progress Patient-Stated? Author Blood Pressure < 140/90 Blood Pressure 160/96( 024 8:13 AM EDT) No Kilo Wang MD documented as of this encounter Visit Diagnoses Not on filedocumented in this encounter Care Teams Manager Systems Relationship Specialty Start Date End Date Dasha Sheppard PA-C [address] [address] PCP - General Family Practice 04/12/18 07/10/23 Kilo Wang MD Consulting Physician Neurology 08/30/16 12/01/21 Juan Haddad MD [address] [place] [address] Otolaryngology 09/23/17 documented as of this encounter
--- OUTSIDE RECORDS SUMMARY | 2024-06-24 04:35 | XMS_ITS | Encounter Summary ---
Author Organization [facility] alth Address [address] [place] [address] Care Team Providers Care Interpretive Naturalist Name Role Phone Kilo Wang MD Unavailable [phone] Juan Haddad MD Unavailable [phone] Dasha Sheppard-C Primary Care Provider Reason for Referral * Test/Procedure/Other (Routine) - Closed Specialty Diagnoses / Procedures Referred By Contac t Referred To Contact Diagnoses Thoracic aortic aneurysm without rupture (CMS/HCC) Procedures MR ANGIOGRAM CHEST W WO CONTRAST Trey Jennings MD [address] [place] [address] Phone: tel: fax: Referral ID Status Reason Start Date Expiration Date Visits Re quested Visits Authorized [id number] Closed 05/25/2021 06/24/2021 1 1 Reason for Visit * Test/Procedure/Other (Routine) - Closed Specialty Diagnoses / Procedures Referred By Contac t Referred To Contact Diagnoses Thoracic aortic aneurysm without rupture (CMS/HCC) Procedures MR ANGIOGRAM CHEST W WO CONTRAST Trey Jennings MD [address] [place] [address] Phone: tel: fax: Referral ID Status Reason Start Date Expiration Date Visits Re quested Visits Authorized [id number] Closed 05/25/2021 06/24/2021 1 1 Encounter Details Date Type Department Care Team (Latest Contact Info) Description 06/18/2021 6:30 AM EST - 06/18/2021 11:59 PM EST Hospital Encounter [facility] [address] [place] [address] Trey Jennings MD [address] [facility] [address] [place] [address] Discharge Disposition: Home/Self Care Social History Tobacco [...] and Family Not on file 09/30/2020 Attends [employer] Not on file 09/30 Active Member [...] this encounter Medications at Time of Discharge albuterol (PROVENTIL HFA) 108 (90 Base) MCG/ACT inhaler Inhale 2 puffs by mouth every 4 hours as needed for Wheezing. 1 each 1 04/04/2021 07/15/2021 amLODIPine (NORVASC) 5 MG tablet Take 1 tablet by mouth daily - Call [facility] for Md appt. 90 tablet 1 04/21/2021 10/14/2021 dicyclomine (BENTYL) 10 MG capsule Take 1 capsule by mouth 4 times daily as needed. 120 capsule 11 05/26/2021 07/15/2021 omeprazole (PRILOSEC) 20 MG capsuleIndication s:Hiatal hernia Take 1 capsule by mouth every morning. 60 capsule 2 04/09/2021 07/15/2021 documented as of this encounter Plan of Treatment Not on file documented as of this encounter Goals Goal Patient Goal Type Associated Problems Recent Progress Patient-Stated? Author Blood Pressure < 140/90 Blood Pressure 160/96( 024 8:13 AM EDT) Kilo Mora MD documented as of this encounter Procedures Procedure Name Priority Date/Time Associated Diagnosis Comments MR ANGIOGRAM CHEST W WO CONTRAST Routine 06/18/2021 7:37 AM EST Thoracic aortic aneurysm without rupture (CMS/HCC) documented in this encounter Results * MR ANGIOGRAM CHEST W WO CONTRAST (06/18/2021 7:37 AM EST) Anatomical Region Laterality Modality Chest Magnetic Resonan ce 06/18/2021 7:00 AM EST Impressions 06/18/2021 9:37 AM EST No recent change is seen. There is dilatation of the ascending thoracic aorta at the level of the sinuses of Valsalva. This measures 4.7 cm and using a similar measurement technique this is unchanged from the prior study dated 06/16/2020. The aortic valve is trileaflet with no stenosis or regurgitation. Dictating Narrative 06/18/2021 9:37 AM EST MRA of the Chest with intravenous contrast HISTORY: ??Follow-up of ascending thoracic aortic aneurysm. Technique: ??Siemens 1.5 T Avanto MRI scanner. * Multiplanar Turbo spin echo and gradient echo imaging for anatomic definition. * Contrast-enhanced volume sets acquired for three-dimensional MRA reconstructions after injection of Dotarem (20 ??mL). * For more optimal morphologic evaluation, off-line advanced post-processing of the 3-D data was performed (using multiplanar, [id number], and/or volume-rendered reconstructions). FINDINGS: The main pulmonary artery is of normal caliber. No pericardial pleural effusion is noted and no adenopathy is seen. The heart size is normal. Limited evaluation of the lungs and upper abdomen shows no abnormality. The thoracic aorta is normal in course and contour. ??There is no evidence for acute aortic pathology, such as dissection, intramural hematoma, or contained rupture. ??The arch vessel branching pattern is normal. ??All of the arch branch vessels appear widely patent in their proximal portions. The aortic valve is trileaflet with no stenosis or regurgitation. Delivery Lead dimensions of the thoracic aorta are as follows: ?? 2.8 x 2.5 ??cm at the aortic annulus 4.7 ??cm at the sinuses of Valsalva (the sinotubular junction is preserved) 3.5 ??cm in the mid ascending aorta 3.1 cm at the distal ascending aorta 4 7 ??cm at the mid transverse arch 2.6 ??cm at the proximal descending thoracic aorta, which then gradually narrows to 2.3 cm at the diaphragmatic hiatus. Procedure Note David Latham MD - 06/18/2021 MRA of the Chest with intravenous contrast HISTORY: Follow-up of ascending thoracic aortic aneurysm. Technique: Siemens 1.5 T Avanto MRI scanner. * Multiplanar Turbo spin echo and gradient echo imaging for anatomicdefinition. * Contrast-enhanced volume sets acquired for three-dimensional MRAreconstructions after injection of Dotarem (20 mL). * For more optimal morphologic evaluation, off-line advancedpost-processing of the 3-D data was performed (using multiplanar,[id number], and/or volume-rendered reconstructions). FINDINGS: The main pulmonary artery is of normal caliber. No pericardial pleuraleffusion is noted and no adenopathy is seen. The heart size is normal. Limited evaluation of the lungs and upper abdomen shows no abnormality. The thoracic aorta is normal in course and contour. There is no evidencefor acute aortic pathology, such as dissection, intramural hematoma, orcontained rupture. The arch vessel branching pattern is normal. All ofthe arch branch vessels appear widely patent in their proximal portions. The aortic valve is trileaflet with no stenosis or regurgitation. Delivery Lead dimensions of the thoracic aorta are as follows: 2.8 x 2.5 cm at the aortic annulus 4.7 cm at the sinuses of Valsalva (the sinotubular junction ispreserved) 3.5 cm in the mid ascending aorta 3.1 cm at the distal ascending aorta 4 7 cm at the mid transverse arch 2.6 cm at the proximal descending thoracic aorta, which then graduallynarrows to 2.3 cm at the diaphragmatic hiatus. IMPRESSION: No recent change is seen. There is dilatation of the ascending thoracicaorta at the level of the sinuses of Valsalva. This measures 4.7 cm andusing a similar measurement technique this is unchanged from the priorstudy dated 06/16/2020. The aortic valve is trileaflet with no stenosis or regurgitation. Dictating us Trey Jennings MD [facility] MR ORDERABLES Final Result documented in this [...] Intravenous, IMG ONCE PRN, Other, Starting on Lisa 06/18/21 at 0738, For 1 dose, Monitor site closely as product is a VESICANT. Given 06/18/2021 7:38 AM EST 20 mLs left antecubital documented in this encounter Care Teams Interpretive Naturalist Relationship Specialty Start Date End Date Dasha Sheppard PA-C [address] [address] PCP - General Family Practice 04/12/18 07/10/23 Kilo Wang MD Consulting Physician Neurology 08/30/16 12/01/21 Juan Haddad MD [address] [address] Otolaryngology 09/23/17 documented as of this encounter
--- OUTSIDE RECORDS SUMMARY | 2024-06-24 04:35 | XMS_ITS | Encounter Summary ---
Author Organization [facility] alth Address [address] [place] [address] Care Team Providers Care Aerospace Project Engineer Name Role Phone Juan Haddad MD Unavailable [phone] Dasha Sheppard PA-C Primary Care Provider Guerita Elliott PA-C Unavailable [phone] Matthew Rushing MD Unavailable [phone] Matthew Rushing MD Unavailable [phone] Matthew Rushing MD Unavailable [phone] Matthew Rushing MD Unavailable [phone] Matthew Rushing MD Unavailable [phone] Matthew Rushing MD Unavailable [phone] Matthew Rushing MD Unavailable [phone] Reason for Referral * Test/Procedure/Other (Routine) - Closed Specialty Diagnoses / Procedures Referred By Contac t Referred To Contact Diagnoses Family history of colon cancer Hx of colonic polyps Procedures COLONOSCOPY, SCREENING Joe Srivastava MD [facility] [facility] [address] [place] [address] Phone: tel: fax: Referral ID Status Reason Start Date Expiration Date Visits Re quested Visits Authorized [id number] Closed 06/16/2022 06/16/2023 1 1 Reason for Visit * Reason Onset Date Comments Procedure 04/26/2022 Encounter Details Date Type Department Care Team (Late st Contact Info) Description 04/26/2022 Telephone [facility] [address] [facility] [place] [id number] Alyssa Courtney LPN [address] [facility] [address] [place] [id number] Procedure Social History Tobacco Use Types Packs/Day Years [...] and Family Not on file 09/30/2020 Attends Church Services Not on file 09/30 Active Member [...] as of this encounter Miscellaneous Notes * Addendum Note - Neena Serrano LPN - 06/16/2022 10:28 AM ESTAddended by: NEENA SERRANO on: 06/16/2022 10:28 AM Modules accepted: Orders * Telephone Encounter - Neena Serrano LPN - 06/16/2022 10:20 AM EST Patient h/o thoracic aa imaging done 06/06/2022 TC from patient to r/s due to a conflict Patient wanted any doctor Patient r/s to 06/25/[address] Srivastava Packet updated to reflect the change Patient to last picker packet * Telephone Encounter - Paula Isaac LPN - 06/15/2022 2:10 PM EST Telephone call from patient for the repeat colonoscopy. Patient screened and cleared for the repeatColonoscopy on 06/23/[address] Becerril. Prep instructions discussed with patient verbalizing understanding. Prep instructions to be picked up at the front desk person. Patient notified to bring insurance cards and photo ID at the time of last picker. PCP notified. Last colonoscopy-06/26/2019 Dr Becerril- magic2- adequate prep- 3 year repeat ACCOUNTS MANAGER chart review due to new angiogram done on 06/06/22. * Telephone Encounter - Neena Serrano LPN - 04/26/2022 10:55 AM EST TC to patient to schedule hisrcp Due for imaging AAA Date of last one 06/18/2021 1 yr f/u Patient will call and get an appt Reminder set to follow up Magic/JDB/polyps/adequate 06/26/2019/3yrcp * Telephone Encounter - Kandice Shannon LPN - 04/26/2022 9:27 AM EST Phone call from patient to schedule fire assistant. Patient last seen for OV 09/2021. To Ishmael to contact patient. documented in this encounter Plan of Treatment Not on file documented as of this encounter Goals Goal Patient Goal Type Associated Problems Recent Progress Patient-Stated? Author Blood Pressure < 140/90 Blood Pressure 160/96( 024 8:13 AM EDT) Kilo Mora MD documented as of this encounter Results * COLONOSCOPY, SCREENING (06/25/2022 1:59 PM [...] CARDIOLOGY-E KG 06/25/2022 1:59 PM EST Narrative [facility] CARDIOLOGY-EKG - 06/25/2022 2:36 PM EST Impression: [...] the procedure by the physician, the ? occup ther and the recreation technician. The procedure was ? verified in [...] MD GI PROCEDURE ORDERABLES Final R esult [facility] CARDIOLOGY-EKG [address] [place] [place] [address] documented in this encounter Visit Diagnoses Diagnosis Hx of colonic polyps- Primary Personal history of colonic polyps Family history of colon cancer Family history of malignant neoplasm of gastrointestinal tract Family history of colon cancer Family history of malignant neoplasm of gastrointestinal tract Hx of colonic polyps Personal history of colonic polyps documented in this encounter Care Teams Aerospace Project Engineer Relationship Specialty Start Date End Date Dasha Sheppard PA-C [address] [place] [address] [place] [address] PCP - General Family Practice 04/12/18 07/10/23 Juan Haddad MD [address] [place] [id number] Otolaryngology 09/23/17 Guerita Elliott PA-C [address] [place] [id number] [facility] Specialist Cardiothoracic Surgery 01/03/22 06/27/22 Matthew Rushing MD [address] [place] [phone] [facility] Specialist Cardiology - General 05/02/22 05/02/22 Matthew Rushing MD [address] [place] [id number] [facility] Specialist Cardiology - General 05/09/22 05/09/22 Matthew Rushing MD [address] [place] [phone] [facility] Specialist Cardiology - General 05/16/22 05/16/22 Matthew Rushing MD [address] [place] [phone] [facility] Specialist Cardiology - General 05/23/22 05/23/22 Mathtew Rushing MD [address] [place] [phone] [facility] Specialist Cardiology - General 05/30/22 05/30/22 Matthew Rushing MD [address] [place] [phone] [facility] Specialist Cardiology - General 06/06/22 06/06/22 Matthew Rushing MD [address] [place] [address] [facility] Specialist Cardiology - General 06/13/22 06/13/22 documented as of this encounter
--- OUTSIDE RECORDS SUMMARY | 2024-06-24 04:35 | XMS_ITS | Encounter Summary ---
Author Organization [facility]th [facility] [address] [facility] [address] Care Team Providers Care Quantitative Associate Name Role Phone Juan Haddad MD Unavailable Dasha SheppardC Primary Care Provider Trey Jennings MD Unavailable [phone] Guerita Elliott PA-C Unavailable Matthew Rushing MD Unavailable [phone] Guerita Elliott PA-C Unavailable Matthew Rushing MD Unavailable +[phone] Matthew Rushing MD Unavailable +[phone] Guerita ElliottC Unavailable +[phone] Guerita Elliott PA-C Unavailable +[phone] Matthew Rushing MD Unavailable +[phone] Guerita Elliott PA-C Unavailable +[phone] Matthew Rushing MD Unavailable +[phone] Matthew Rushing MD Unavailable +[phone] Guerita ElliottC Unavailable +[phone] Matthew Rushing MD Unavailable +[phone] Guerita Elliott PA-C Unavailable +[phone] Matthew Rushing MD Unavailable +[phone] Lilli Elliotther Alvarez PA-C Unavailable + -[phone] Lilli Elliotther Alvarez PA-C Unavailable + -4994 Matthew Rushing MD Unavailable +[phone] Earl Guerita Alvarez PA-C Unavailable + -5 Matthew Rushing MD Unavailable +[phone] Earl Guerita Alvarez PA-C Unavailable +4 -5 Matthew Rushing MD Unavailable +[phone] Earl Gueirta Alvarez PA-C Unavailable +4 -5 Matthew Rushing MD Unavailable +[phone] Matthew Rushing MD Unavailable +[phone] EarlGuerita PA-C Unavailable + -5 Matthew Rushing MD Unavailable +[phone] Earl Guerita Alvarez PA-C Unavailable + -5 Earl Guerita Alvarez PA-C Unavailable +4 -5 Matthew Rushing MD Unavailable +[phone] Matthew Rushing MD Unavailable +[phone] Guerita Elliott PA-C Unavailable + -4994 Guerita Elliott PA-C Unavailable +4 -4995 Matthew Rushing MD Unavailable +[phone] Matthew Rushing MD Unavailable +[phone] Guerita Elliott PA-C Unavailable +4 -5 Guerita Elliott PA-C Unavailable +4 -4995 Matthew Rushing MD Unavailable +[phone] Matthew Rushing MD Unavailable +[phone] Guerita Elliott Kim PA-C Unavailable +4 -5 EarlLilli pinoher Alvarez PA-C Unavailable +4 -5 Matthew Rushing MD Unavailable +[phone] Matthew Rushing MD Unavailable Lilli Elliotther Alvarez PA-C Unavailable +4 -5 Earl Guerita Alvarez PA-C Unavailable +4 -5 Matthew Rushing MD Unavailable +[phone] Lilli Elliotther Alvarez PA-C Unavailable +4 -5 Matthew Rushing MD Unavailable +[phone] Matthew Rushing MD Unavailable +[phone] Earl Guerita Alvarez PA-C Unavailable +4 -5 Earl Guerita Alvarez PA-C Unavailable +4 -4995 Matthew Rushing MD Unavailable +[phone] Matthew Rushing MD Unavailable +[phone] Earl Guerita Alvarez PA-C Unavailable +4 -5 Earl Guerita Alvarez PA-C Unavailable +4 -4995 Matthew Rushing MD Unavailable +[phone] Matthew Rushing MD Unavailable +[phone] EarlLilli pinoher Alvarez PA-C Unavailable +4 -4995 Matthew Rushing MD Unavailable +[phone] Guerita Elliott PA-C Unavailable +4 -4995 Matthew Rushing MD Unavailable +[phone] Guerita Elliott PA-C Unavailable +[phone] Guerita Elliott PA-C Unavailable +4 -5 Matthew Rushing MD Unavailable +[phone] Matthew Rushing MD Unavailable +[phone] Guerita Elliott PA-C Unavailable + -4994 Guerita Elliott PA-C Unavailable + -4994 Matthew Rushing MD Unavailable +[phone] Matthew Rushing MD Unavailable +[phone] Guerita Elliott PA-C Unavailable + -5 Matthew Rushing MD Unavailable +[phone] Guerita Elliott PA-C Unavailable + -5 Matthew Rushing MD Unavailable +[phone] Guerita Elliott PA-C Unavailable +4 -5 Guerita Elliott PA-C Unavailable + -5 Matthew Rushing MD Unavailable +[phone] Matthew Rushing MD Unavailable +[phone] Guerita Elliott PA-C Unavailable + -5 Guerita Elliott PA-C Unavailable +4 -5 Matthew Rushing MD Unavailable +[phone] Guerita Elliott PA-C Unavailable + -4994 Matthew Rushing MD Unavailable +[phone] Matthew Rushing MD Unavailable +[phone] Guerita Elliott PA-C Unavailable +4 -5 Matthew Rushing MD Unavailable +[phone] Guerita Elliott PA-C Unavailable + -5 Matthew Rushing MD Unavailable +[phone] Guerita Elliott PA-C Unavailable +4 -4995 Guerita Elliott PA-C Unavailable + Matthew Rushing MD Unavailable Matthew Rushing MD Unavailable +-[phone] Guerita Elliott PA-C Unavailable + Matthew Rushing MD Unavailable +[phone] Guerita Elliott PA-C Unavailable + -4994 Matthew Rushing MD Unavailable +[phone] Guerita Elliott PA-C Unavailable + -5 Guerita Elliott PA-C Unavailable + -5 Matthew Rushing MD Unavailable +[phone] Guerita Elliott PA-C Unavailable +500 -5 Matthew Rushing MD Unavailable +[phone] Guerita Elliott PA-C Unavailable + -4994 Matthew Rushing MD Unavailable +[phone] Guerita Elliott-C Unavailable +[phone] Matthew Rushing MD Unavailable +[phone] Guerita lEliott PA-C Unavailable + -5 Matthew Rushing MD Unavailable +[phone] Guerita Elliott PA-C Unavailable +[phone] -[phone] Matthew Rushing MD Unavailable +[phone] Txfr Provider [facility], Temporary Primary Care Provider Matthew Rushing MD Unavailable +[phone] Guerita Elliott PA-C Unavailable +[phone] Matthew Rushing MD Unavailable +[phone] Guerita Elliott PA-C Unavailable +[phone] Matthew Rushing MD Unavailable +[phone] Guerita Elliott J PA-C Unavailable +4 -5 [place] PA-C Unavailable +4 -5 Matthew Rushing MD Unavailable +[phone] Guerita Elliott J PA-C Unavailable +4 -5 Matthew Rushing MD Unavailable +[phone] Matthew Rushing MD Unavailable +[phone] Lilli Elliotther Alvarez PA-C Unavailable +4 -5 Matthew Rushing MD Unavailable +[phone] Earl Guerita J PA-C Unavailable +4 -5 Earl Guerita J PA-C Unavailable +4 -5 Matthew Rushing MD Unavailable Matthew Rushing MD Unavailable +[phone] Lilli Elliotther Alvarez PA-C Unavailable +4 -5 Matthew Rushing MD Unavailable +[phone] Earl, Guerita Alvarez PA-C Unavailable +4 -5 Matthew Rushing MD Unavailable +[phone] Guerita Elliott PA-C Unavailable +4 -5 Matthew Rushing MD Unavailable +[phone] Earl Guerita J PA-C Unavailable +4 -4995 Earl Guerita J PA-C Unavailable +4 -4995 Matthew Rushing MD Unavailable +[phone] Matthew Rushing MD Unavailable +[phone] Guerita Elliott PA-C Unavailable +[phone] Matthew Rushing MD Unavailable +[phone] Guerita Elliott PA-C Unavailable Matthew Rushing MD Unavailable +[phone] Gueirta Elliott Kim PA-C Unavailable + -4994 Guerita Elliott Kim PA-C Unavailable + -499 Matthew Rushing MD Unavailable +[phone] Matthew Rushing MD Unavailable Lilli Elliotther Alvarez PA-C Unavailable +4 -499 Lilli Elliotther Alvarez PA-C Unavailable +4 -4995 Matthew Rushing MD Unavailable +[phone] Lilli Elliotther Alvarez PA-C Unavailable +4 -5 Matthew Rushing MD Unavailable +[phone] Lilli Elliotther Alvarez PA-C Unavailable + -4994 Matthew Rushing MD Unavailable +[phone] Matthew Rushing MD Unavailable +[phone] Lilli Elliotther Alvarez PA-C Unavailable +8 -5 Matthew Del Toro MD Primary Care Provider [phone] Lilli Elliotther Alvarez PA-C Unavailable +[phone] Matthew Rushing MD Unavailable +[phone] EarlGuerita PA-C Unavailable +[phone] Matthew Rushing MD Unavailable +[phone] EarlGuerita PA-C Unavailable +2 -499 Matthew Rushing MD Unavailable +[phone] EarlGuerita PA-C Unavailable +4 -4995 Matthew Rushing MD Unavailable +[phone] Guerita Elliott PA-C Unavailable +[phone] Matthew Rushing MD Unavailable +[phone] Matthew Rushing MD Unavailable +[phone] Guerita Elliott PA-C Unavailable +4 -5 Lilli Elliotther J PA-C Unavailable +4 -5 Matthew Rushing MD Unavailable +[phone] Matthew Rushing MD Unavailable +[phone] Guerita Elliott J PA-C Unavailable +4 -5 Matthew Rushing MD Unavailable +[phone] Guerita Elliott J PA-C Unavailable +4 -4995 Guerita Elliott J PA-C Unavailable +4 -4995 Matthew Rushing MD Unavailable +[phone] Matthew Rushing MD Unavailable +[phone] Guerita Elliott J PA-C Unavailable +4 -4995 Guerita Elliott J PA-C Unavailable +4 -4995 Matthew Rushing MD Unavailable +[phone] Guerita Elliott PA-C Unavailable +4 -4995 Matthew Rushing MD Unavailable Matthew Rushing MD Unavailable +[phone] Guerita Elliott PA-C Unavailable +4 -4995 Matthew Rushing MD Unavailable +[phone] Guerita Elliott PA-C Unavailable +4 -4995 Matthew Rushing MD Unavailable +[phone] Guerita Elliott J PA-C Unavailable +4 -4995 Guerita Elliott PA-C Unavailable +[phone] Matthew Rushing MD Unavailable Guerita Elliott PA-C Unavailable Matthew Rushing MD Unavailable +[phone] Guerita Elliott Kim PA-C Unavailable Matthew Rushing MD Unavailable +[phone] Matthew Rushing MD Unavailable +[phone] Guerita Elliott Kim PA-C Unavailable Matthew Rushing MD Unavailable Lilli Elliotther Alvarez PA-C Unavailable Matthew Rushing MD Unavailable +[phone] Guerita Elliott Kim PA-C Unavailable Lilli Elliotther Alvarez PA-C Unavailable Matthew Rushing MD Unavailable +[phone] Guerita Elliott Kim PA-C Unavailable Matthew Rushing MD Unavailable +[phone] Lilli Elliotther Alvarez PA-C Unavailable Matthew Rushing MD Unavailable +[phone] Lilli Elliotther Alvarez PA-C Unavailable Matthew Rushing MD Unavailable [phone] Earl Guerita Alvarez PA-C Unavailable Matthew Rushing MD Unavailable [phone] Encounter Details Date Type Department Care Team (Late st Contact Info) Description 07/02/2022 Orders Only [facility] [address] [facility] [place] [id number] Joe Srivastava MD [address] [place] [address] Social History Tobacco Use Types Packs/Day Years [...] on file documented as of this encounter Progress Notes * Joe Srivastava MD - 07/02/2022 3:10 PM EST Please send letter HIGH-RISK POLYP. [Since a first degree relative letter has been chosen, what age would you like the 1st degree relative to begin having colonoscopy screenings? 40 years of age.] Recall Colon in 3 Years. documented in this encounter Plan of Treatment Not on file documented as of this encounter Goals Goal Patient Goal Type Associated Problems Recent Progress Patient-Stated? Author Blood Pressure < 140/90 Blood Pressure 160/96( 024 8:13 AM EDT) No Kilo Wang MD documented as of this encounter Procedures Procedure Name Priority Date/Time Associated Diagnosis Comments SURGICAL PATHOLOGY REPORT Routine 06/28/2022 documented in this encounter Results * SURGICAL PATHOLOGY REPORT (06/28/2022) us Joe Srivastava MD PATHOLOGY/CYTOLOGY ORDERABLES F inal Result Performing Organization Address [facility]/State/ZIP Co de Phone Number [facility] [address] [facility] [address] [place] [address] documented in this encounter Visit Diagnoses Not on filedocumented in this encounter Care Teams Quantitative Associate Relationship Specialty Start Date End Date Dasha Sheppard PA-C [address] [place] [address] [place] [address] PCP - General Family Practice 04/12/18 07/10/23 Txfr Provider Family Medicine [place], Temporary [address] [facility] [address] [place] [address] PCP - General Family Practice 07/11/23 12/11/23 Matthew Del Toro MD [address] [facility] [address] [place] [address] PCP - General Family Practice 12/12/23 Juan Haddad MD [address] [place] [address] Otolaryngology 09/23/17 Trey Jennings MD [address] [address] [facility] Cardiothoracic Surgery 06/27/22 Guerita Elliott PA-C [address] [address] [facility] Cardiothoracic Surgery 07/04/22 3 Matthew Rushing MD [address] [place] [address] [facility] Cardiology - General 07/04/22 07/04/22 Guerita Elliott PA-C [address] [address] [facility] Cardiothoracic Surgery 07/11/22 3 Matthew Rushing MD [address] [place] [address] [facility] Cardiology - General 07/11/22 07/11/22 Matthew Rushing MD [address] [place] [address] [facility] Cardiology - General 07/18/22 07/18/22 Guerita Elliott PA-C [address] [place] [address] [facility] Cardiothoracic Surgery 07/18/22 3 Guerita Elliott PA-C [address] [place] [address] [facility] Cardiothoracic Surgery 07/25/22 07/25/22 Matthew Rushing MD [address] [place] [address] [facility] Cardiology - General 07/25/22 07/25/22 Guerita Elliott PA-C [address] [place] [address] [facility] Cardiothoracic Surgery 08/01/22 3 Matthew Rushing MD [address] [place] [address] [facility] Cardiology - General 08/01/22 08/01/22 Matthew Rushing MD [address] [place] [address] [facility] Cardiology - General 08/08/22 08/08/22 Guerita Elliott PA-C [address] [place] [address] [facility] Cardiothoracic Surgery 08/08/22 3 Matthew Rushing MD [address] [place] [address] [facility] Cardiology - General 08/15/22 08/15/22 Guerita Elliott PA-C [address] [address] [facility] Cardiothoracic Surgery 08/15/22 3 Matthew Rushing MD [address] [place] [address] [facility] Cardiology - General 08/22/22 08/22/22 Guerita Elliott PA-C [address] [place] [address] [facility] Cardiothoracic Surgery 08/22/22 08/22/22 Guerita Elliott PA-C [address] [place] [address] [facility] Cardiothoracic Surgery 08/29/22 3 Matthew Rushing MD [address] [place] [address] [facility] Cardiology - General 08/29/22 08/29/22 Guerita Elliott PA-C [address] [place] [address] [facility] Cardiothoracic Surgery 09/05/22 3 Matthew Rushing MD [address] [place] [address] [facility] Cardiology - General 09/05/22 09/05/22 Guerita Elliott PA-C [address] [place] [address] [facility] Cardiothoracic Surgery 09/12/22 Matthew Rushing MD [address] [place] [address] [facility] Cardiology - General 09/12/22 09/12/22 Guerita Elliott PA-C [address] [address] [facility] Cardiothoracic Surgery 09/19/22 09/19/22 Matthew Rushing MD [address] [place] [address] [facility] Cardiology - General 09/19/22 09/19/22 Matthew Rushing MD [address] [place] [address] [facility] Cardiology - General 09/26/22 09/26/22 Guerita Elliott PA-C [address] [address] [facility] Cardiothoracic Surgery 09/26/22 09/26/22 Matthew Rushing MD [address] [place] [address] [facility] Cardiology - General 10/03/22 10/03/22 Guerita Elliott PA-C [address] [address] [facility] Cardiothoracic Surgery 10/03/22 3 Guerita Elliott PA-C [address] [address] [facility] Cardiothoracic Surgery 10/10/22 3 Matthew Rushing MD [address] [place] [address] [facility] Cardiology - General 10/10/22 10/10/22 Matthew Rushing MD [address] [place] [address] [facility] Cardiology - General 10/17/22 10/17/22 Guerita Elliott PA-C [address] [address] [facility] Cardiothoracic Surgery 10/17/22 3 Guerita Elliott PA-C [address] [address] [facility] Cardiothoracic Surgery 10/24/22 10/24/22 Matthew Rushing MD [address] [place] [address] [facility] Cardiology - General 10/24/22 10/24/22 Matthew Rushing MD [address] [place] [address] [facility] Cardiology - General 10/31/22 10/31/22 Guerita Elliott PA-C [address] [address] [facility] Cardiothoracic Surgery 10/31/22 3 Guerita Elliott PA-C [address] [address] [facility] Cardiothoracic Surgery 11/07/22 3 Matthew Rushing MD [address] [place] [address] [facility] Cardiology - General 11/07/22 11/07/22 Matthew Rushing MD [address] [place] [address] [facility] Cardiology - General 11/14/22 11/14/22 Guerita Elliott PA-C [address] [address] [facility] Cardiothoracic Surgery 11/14/22 3 Guerita Elliott PA-C [address] [address] [facility] Cardiothoracic Surgery 11/21/22 11/21/22 Matthew Rushing MD [address] [place] [address] [facility] Cardiology - General 11/21/22 11/21/22 Matthew Rushing MD [address] [place] [address] [facility] Cardiology - General 11/28/22 11/28/22 Guerita Elliott PA-C [address] [address] [facility] Cardiothoracic Surgery 11/28/22 3 Guerita Elliott PA-C [address] [address] [facility] Cardiothoracic Surgery 12/05/22 3 Matthew Rushing MD [address] [place] [address] [facility] Cardiology - General 12/05/22 12/05/22 Guerita Elliott PA-C [address] [address] [facility] Cardiothoracic Surgery 12/12/22 3 Matthew Rushing MD [address] [place] [address] [facility] Cardiology - General 12/12/22 12/12/22 Matthew Rushing MD [address] [place] [address] [facility] Cardiology - General 12/19/22 12/19/22 Guerita Elliott PA-C [address] [address] [facility] Cardiothoracic Surgery 12/19/22 12/19/22 Guerita Elliott PA-C [address] [address] [facility] Cardiothoracic Surgery 12/26/22 12/26/22 Matthew Rushing MD [address] [place] [address] [facility] Cardiology - General 12/26/22 12/26/22 Matthew Rushing MD [address] [place] [address] [facility] Cardiology - General 01/02/23 01/02/23 Guerita Elliott PA-C [address] [address] [facility] Cardiothoracic Surgery 01/02/23 3 Guerita Elliott PA-C [address] [address] [facility] Cardiothoracic Surgery 01/09/23 3 Matthew Rushing MD [address] [place] [address] [facility] Cardiology - General 01/09/23 01/09/23 Matthew Rushing MD [address] [place] [address] [facility] Cardiology - General 01/16/23 01/16/23 Guerita Elliott PA-C [address] [address] [facility] Cardiothoracic Surgery 01/16/23 3 Matthew Rushing MD [address] [place] [address] [facility] Cardiology - General 01/23/23 01/23/23 Guerita Elliott PA-C [address] [address] [facility] Cardiothoracic Surgery 01/23/23 01/23/23 Matthew Rushing MD [address] [place] [address] [facility] Cardiology - General 01/30/23 01/30/23 Guerita Elliott PA-C [address] [address] [facility] Cardiothoracic Surgery 01/30/23 3 Guerita Elliott PA-C [address] [address] [facility] Cardiothoracic Surgery 02/06/23 3 Matthew Rushing MD [address] [place] [address] [facility] Cardiology - General 02/06/23 02/06/23 Matthew Rushing MD [address] [place] [address] [facility] Cardiology - General 02/13/23 02/13/23 Guerita Elliott PA-C [address] [address] [facility] Cardiothoracic Surgery 02/13/23 3 Guerita Elliott PA-C [address] [address] [facility] Cardiothoracic Surgery 02/20/23 02/20/23 Matthew Rushing MD [address] [place] [address] [facility] Cardiology - General 02/20/23 02/20/23 Matthew Rushing MD [address] [place] [address] [facility] Cardiology - General 02/27/23 02/27/23 Guerita Elliott PA-C [address] [address] [facility] Cardiothoracic Surgery 02/27/23 3 Matthew Rushing MD [address] [place] [address] [facility] Cardiology - General 03/06/23 03/06/23 Guerita Elliott PA-C [address] [address] [facility] Cardiothoracic Surgery 03/06/23 3 Matthew Rushing MD [address] [place] [address] [facility] Cardiology - General 03/13/23 03/13/23 Guerita Elliott PA-C [address] [address] [facility] Cardiothoracic Surgery 03/13/23 3 Guerita Elliott PA-C [address] [address] [facility] Cardiothoracic Surgery 03/20/23 3 Matthew Rushing MD [address] [place] [address] [facility] Cardiology - General 03/20/23 03/20/23 Matthew Rushing MD [address] [place] [address] [facility] Cardiology - General 03/27/23 03/27/23 Guerita Elliott PA-C [address] [address] [facility] Cardiothoracic Surgery 03/27/23 3 Guerita Elliott PA-C [address] [address] [facility] Cardiothoracic Surgery 04/03/23 Matthew Rushing MD [address] [place] [address] [facility] Cardiology - General 04/03/23 04/03/23 Guerita Elliott PA-C [address] [address] [facility] Cardiothoracic Surgery 04/10/23 Mattehw Rushing MD [address] [place] [address] [facility] Cardiology - General 04/10/23 04/10/23 Matthew Rushing MD [address] [place] [address] [facility] Cardiology - General 04/17/23 04/17/23 Guerita Elliott PA-C [address] [address] [facility] Cardiothoracic Surgery 04/17/23 Matthew Rushing MD [address] [place] [address] [facility] Cardiology - General 04/24/23 04/24/23 Guerita Elliott PA-C [address] [address] [facility] Cardiothoracic Surgery 04/24/23 3 Matthew Rushing MD [address] [place] [address] [facility] Cardiology - General 05/01/23 05/01/23 Guerita Elliott PA-C [address] [address] [facility] Cardiothoracic Surgery 05/01/23 Guerita Elliott PA-C [address] [address] [facility] Cardiothoracic Surgery 05/08/23 Matthew Rushing MD [address] [place] [address] [facility] Cardiology - General 05/08/23 05/08/23 Matthew Rushing MD [address] [place] [address] [facility] Cardiology - General 05/15/23 05/15/23 Guerita Elliott PA-C [address] [place] [address] [facility] Cardiothoracic Surgery 05/15/23 Matthew Rushing MD [address] [place] [address] [facility] Cardiology - General 05/22/23 05/22/23 Guerita Elliott PA-C [address] [place] [address] [facility] Cardiothoracic Surgery 05/22/23 3 Matthew Rushing MD [address] [place] [address] [facility] Cardiology - General 05/29/23 05/29/23 Guerita Elliott PA-C [address] [address] [facility] Cardiothoracic Surgery 05/29/23 Guerita Elliott PA-C [address] [address] [facility] Cardiothoracic Surgery 06/05/23 Matthew Rushing MD [address] [place] [address] [facility] Cardiology - General 06/05/23 06/05/23 Guerita Elliott PA-C [address] [address] [facility] Cardiothoracic Surgery 06/12/23 Matthew Rushing MD [address] [place] [address] [facility] Cardiology - General 06/12/23 06/12/23 Guerita Elliott PA-C [address] [address] [facility] Cardiothoracic Surgery 06/19/23 Matthew Rushing MD [address] [place] [address] [facility] Cardiology - General 06/19/23 06/19/23 Guerita Elliott PA-C [address] [address] [facility] Cardiothoracic Surgery 06/26/23 06/26/23 Matthew Rushing MD [address] [place] [address] [facility] Cardiology - General 06/26/23 06/26/23 Guerita Elliott PA-C [address] [address] [facility] Cardiothoracic Surgery 07/03/23 4 Matthew Rushing MD [address] [place] [address] [facility] Cardiology - General 07/03/23 07/03/23 Guerita Elliott PA-C [address] [address] [facility] Cardiothoracic Surgery 07/10/23 4 Matthew Rushing MD [address] [place] [address] [facility] Cardiology - General 07/10/23 07/10/23 Matthew Rushing MD [address] [place] [address] [facility] Cardiology - General 07/17/23 07/17/23 Guerita Elliott PA-C [address] [address] [facility] Cardiothoracic Surgery 07/17/23 4 Matthew Rushing MD [address] [place] [address] [facility] Cardiology - General 07/24/23 07/24/23 Guerita Elliott PA-C [address] [address] [facility] Cardiothoracic Surgery 07/24/23 07/24/23 Matthew Rushing MD [address] [place] [address] [facility] Cardiology - General 07/31/23 07/31/23 Guerita Elliott PA-C [address] [address] [facility] Cardiothoracic Surgery 07/31/23 4 Guerita Elliott PA-C [address] [address] [facility] Cardiothoracic Surgery 08/07/23 4 Matthew Rushing MD [address] [place] [address] [facility] Cardiology - General 08/07/23 08/07/23 Guerita Elliott PA-C [address] [address] [facility] Cardiothoracic Surgery 08/14/23 4 Matthew Rushing MD [address] [place] [address] [facility] Cardiology - General 08/14/23 08/14/23 Matthew Rushing MD [address] [place] [address] [facility] Cardiology - General 08/21/23 08/21/23 Guerita Elliott PA-C [address] [address] [facility] Cardiothoracic Surgery 08/21/23 08/21/23 Matthew Rushing MD [address] [place] [address] [facility] Cardiology - General 08/28/23 08/28/23 Guerita Elliott PA-C [address] [address] [facility] Cardiothoracic Surgery 08/28/23 4 Guerita Elliott PA-C [address] [address] [facility] Cardiothoracic Surgery 09/04/23 4 Matthew Rushing MD [address] [place] [address] [facility] Cardiology - General 09/04/23 09/04/23 Matthew Rushing MD [address] [place] [address] [facility] Cardiology - General 09/11/23 09/11/23 Guerita Elliott PA-C [address] [place] [address] [facility] Cardiothoracic Surgery 09/11/23 4 Matthew Rushing MD [address] [place] [address] [facility] Cardiology - General 09/18/23 09/18/23 Guerita Elliott PA-C [address] [address] [facility] Cardiothoracic Surgery 09/18/23 4 Matthew Rushing MD [address] [place] [address] [facility] Cardiology - General 09/25/23 09/25/23 Guerita Elliott PA-C [address] [place] [address] [facility] Cardiothoracic Surgery 09/25/23 09/25/23 Matthew Rushing MD [address] [place] [address]10 [facility] Cardiology - General 10/02/23 10/02/23 Guerita Elliott PA-C [address] [place] [address] [facility] Cardiothoracic Surgery 10/02/23 4 Guerita Elliott PA-C [address] [address] [facility] Cardiothoracic Surgery 10/09/23 4 Matthew Rushing MD [address] [place] [address] 8[address]46 [facility] Cardiology - General 10/09/23 10/09/23 Matthew Rushing MD [address] [place] [address] 612[address] [facility] Cardiology - General 10/16/23 10/16/23 Guerita Elliott PA-C [address] [address] [facility] Cardiothoracic Surgery 10/16/23 4 Matthew Rushing MD [address] [place] [address]286 [facility] Cardiology - General 10/23/23 10/23/23 Guerita Elliott PA-C [address] [place] [address] [facility] Cardiothoracic Surgery 10/23/23 10/23/23 Matthew Rushing MD [address] [place] [address]20 [facility] Cardiology - General 10/30/23 10/30/23 Guerita Elliott PA-C [address] [address] [facility] Cardiothoracic Surgery 10/30/23 4 Guerita Elliott PA-C [address] [address] [facility] Cardiothoracic Surgery 11/06/23 4 Matthew Rushing MD [address] [place] [address] [facility] Cardiology - General 11/06/23 11/06/23 Matthew Rushing MD [address] [place] [address] [facility] Cardiology - General 11/13/23 11/13/23 Guerita Elliott PA-C [address] [address] [facility] Cardiothoracic Surgery 11/13/23 4 Guerita Elliott PA-C [address] [address] [facility] Cardiothoracic Surgery 11/20/23 11/20/23 Matthew Rushing MD [address] [place] [address] 20414 [facility] Cardiology - General 11/20/23 11/20/23 Guerita Elliott PA-C [address] [address] [facility] Cardiothoracic Surgery 11/27/23 11/27/23 Matthew Rushing MD [address] [place] [address] 80[address] [facility] Cardiology - General 11/27/23 11/27/23 Guerita Elliott PA-C [address] [address] [facility] Cardiothoracic Surgery 12/04/23 4 Matthew Rushing MD [address] [place] [address] 7[address] [facility] Cardiology - General 12/04/23 12/04/23 Matthew Rushing MD [address] [place] [address] 49[address] [facility] Cardiology - General 12/11/23 12/11/23 Guerita Elliott PA-C [address] [address] [facility] Cardiothoracic Surgery 12/11/23 4 Guerita Elliott PA-C [address] [address] [facility] Cardiothoracic Surgery 12/18/23 4 Matthew Rushing MD [address] [place] [address] 76[address] [facility] Cardiology - General 12/18/23 12/18/23 Guerita Elliott PA-C [address] [address] [facility] Cardiothoracic Surgery 12/25/23 12/25/23 Matthew Rushing MD [address] [place] [address] 549[address] [facility] Cardiology - General 12/25/23 12/25/23 Guerita Elliott PA-C [address] [address] [facility] Cardiothoracic Surgery 01/01/24 4 Matthew Rushing MD [address] [place] [address] [facility] Cardiology - General 01/01/24 01/01/24 Guerita Elliott PA-C [address] [place] [address] [facility] Cardiothoracic Surgery 01/08/24 4 Matthew Rushing MD [address] [place] [address] [facility] Cardiology - General 01/08/24 01/08/24 Guerita Elliott PA-C [address] [place] [address] 11972 [facility] Cardiothoracic Surgery 01/15/24 4 Matthew Rushing MD [address] [place] [address] 49[address] [facility] Cardiology - General 01/15/24 01/15/24 Matthew Rushing MD [address] [place] [address] [facility] Cardiology - General 01/22/24 01/22/24 Guerita Elliott PA-C [address] [address] [facility] Cardiothoracic Surgery 01/22/24 01/22/24 Guerita Elliott PA-C [address] [address] [facility] Cardiothoracic Surgery 01/29/24 4 Matthew Rushing MD [address] [place] [address] 51326 [facility] Cardiology - General 01/29/24 01/29/24 Matthew Rushing MD [address] [place] [address] 07245 [facility] Cardiology - General 02/05/24 02/05/24 Guerita Elliott PA-C [address] [address] [facility] Cardiothoracic Surgery 02/05/24 4 Matthew Rushing MD [address] [place] [address] 08107 [facility] Cardiology - General 02/12/24 02/12/24 Guerita Elliott PA-C [address] [address] [facility] Cardiothoracic Surgery 02/12/24 4 Guerita Elliott PA-C [address] [address] [facility] Cardiothoracic Surgery 02/19/24 02/19/24 Matthew Rushing MD [address] [place] [address] 7[address]95 [facility] Cardiology - General 02/19/24 02/19/24 Matthew Rushing MD [address] [place] [address] 7[address]19 [facility] Cardiology - General 02/26/24 02/26/24 Guerita Elliott PA-C [address] [address] [facility] Cardiothoracic Surgery 02/26/24 02/26/24 Guerita Elliott PA-C [address] [address] [facility] Cardiothoracic Surgery 03/04/24 4 Matthew Rushing MD [address] [place] [address] 97865 [facility] Cardiology - General 03/04/24 03/04/24 Guerita Elliott PA-C [address] [address] [facility] Cardiothoracic Surgery 03/11/24 4 Matthew Rushing MD [address] [place] [address] 7[address]80 [facility] Cardiology - General 03/11/24 03/11/24 Matthew Rushing MD [address] [place] [address]90 [facility] Cardiology - General 03/18/24 03/18/24 Guerita Elliott PA-C [address] [address] [facility] Cardiothoracic Surgery 03/18/24 Matthew Rushing MD [address] [place] [address] 44392 [facility] Cardiology - General 03/25/24 03/25/24 Guerita Elliott PA-C [address] [place] [address] [facility] Cardiothoracic Surgery 03/25/24 Matthew Rushing MD [address] [place] [address] 18207 [facility] Special[facility] Cardiology - General 04/01/24 04/01/24 Guerita Elliott PA-C [address] [place] [address] 27024 [facility] Cardiothoracic Surgery 04/01/24 Guerita Elliott PA-C [address] [address] [facility] Cardiothoracic Surgery 04/08/24 Matthew Rushing MD [address] [place] [address] 6[address]26 [facility] Cardiology - General 04/08/24 04/08/24 Guerita Elliott PA-C [address] [address] [facility] Cardiothoracic Surgery 04/15/24 Matthew Rushing MD [address] [place] [address] 76[address] [facility] Cardiology - General 04/15/24 04/15/24 Guerita Elliott PA-C [address] [place] [address] 9[address]31 [facility] Cardiothoracic Surgery 04/22/24 4 Matthew Rushing MD [address] [place] [address] 27243 [facility] Cardiology - General 04/22/24 04/22/24 Matthew Rushing MD [address] [place] [address] 84742 [facility] Cardiology - General 04/29/24 04/29/24 Guerita Elliott PA-C [address] [place] [address] 85163 [facility] Cardiothoracic Surgery 04/29/24 Matthew Rushing MD [address] [place] [address] 63029 [facility] Cardiology - General 05/06/24 05/06/24 Guerita Elliott PA-C [address] [address] [facility] Cardiothoracic Surgery 05/06/24 Matthew Rushing MD [address] [place] [address] 60901 [facility] Cardiology - General 05/13/24 05/13/24 Guerita Elliott PA-C [address] [address] [facility] Cardiothoracic Surgery 05/13/24 Guerita Elliott PA-C [address] [address] [facility] Cardiothoracic Surgery 05/20/24 4 Matthew Rushing MD [address] [place] [address] 32455 [facility] Cardiology - General 05/20/24 05/20/24 Guerita Elliott PA-C [address] [address] [facility] Cardiothoracic Surgery 05/27/24 4 Matthew Rushing MD [address] [place] [address] 8[address]69 [facility] Cardiology - General 05/27/24 05/27/24 Guerita Elliott PA-C [address] [address] [facility] Cardiothoracic Surgery 06/03/24 Matthew Rushing MD [address] [place] [address] 05303 [facility] Cardiology - General 06/03/24 06/03/24 Guerita Elliott PA-C [address] [address] [facility] Cardiothoracic Surgery 06/10/24 Matthew Rushing MD [address] [place] [address] 99263 [facility] Cardiology - General 06/10/24 06/10/24 Guerita Elliott PA-C [address] [address] [facility] Cardiothoracic Surgery 06/17/24 Matthew Rushing MD [address] [place] [address] 38[address] [facility] Cardiology - General 06/17/24 06/17/24 documented as of this encounter
--- OUTSIDE RECORDS SUMMARY | 2024-06-24 04:35 | XMS_ITS | Encounter Summary ---
Author Organization [facility] alth Address [address] [facility] [place] [address] Care Team Providers Care Physician Intensivist Name Role Phone Kilo Wang MD Unavailable [phone] Juan Haddad MD Unavailable [phone] Dasha Sheppard PA-C Primary Care Provider Trey Jennings MD Unavailable [phone] Reason for Referral * Test/Procedure/Other (Routine) - Closed Specialty Diagnoses / Procedures Referred By Contac t Referred To Contact Radiology Diagnoses Chronic left-sided thoracic back pain Procedures XR THORACIC SPINE 2 VW Dasha Sheppard PA-C [address] [facility] [place] [address] Phone: tel: fax: Referral ID Status Reason Start Date Expiration Date Visits Re quested Visits Authorized [id number] Closed 08/04/2021 08/04/2022 1 1 * Test/Procedure/Other (Routine) - Closed Specialty Diagnoses / Procedures Referred By Contac t Referred To Contact Radiology Diagnoses Rib pain on left side Procedures XR RIBS LEFT W PA CHEST MIN 3 VW Dasha Sheppard PA-C [address] [place] [address] Phone: tel: fax: Referral ID Status Reason Start Date Expiration Date Visits Re quested Visits Authorized [id number] Closed 08/04/2021 08/04/2022 1 1 Reason for Visit * Reason Comments Pain Left flank Onset: 3- 4 weeks. Patient denies injury. Patient reports It's a constant pain. . Encounter Details Date Type Department Care Team (Late st Contact Info) Description 08/04/2021 4:20 PM EST Office Visit [facility] [address] [facility], [address] [place] [address] Dasha Sheppard PA-C [address] [facility] [place] [address] Chronic left-sided thoracic back pain (Primary Dx); Rib pain on left side; Vertigo Discharge Disposition: Home/Self Care Social History Tobacco [...] and Family Not on file 09/30/2020 Attends Spiritism Services Not on file 09/30 Active Member [...] Sign Reading Time Taken Comments Blood Pressure 134/84 08/04/2021 4:19 PM EST Pulse 74 08/04/2021 4:19 PM EST Temperature 36.2 ??C (97.1 ??F) 08/04/2021 4:19 PM ES T Respiratory Rate - - Oxygen Saturation 98% 08/04/2021 4:19 PM EST room air Inhaled Oxygen Concentration - - Weight 104 kg (230 lb) 08/04/2021 4:19 PM EST Height - - Body Mass Index 31.19 06/18/2021 6:32 AM EST documented in this encounter Progress Notes * Dasha Sheppard PA-C - 08/04/2021 4:50 PM EST Images from the original note were not included. Assessment and Plan 1. Chronic left-sided thoracic back pain - XR THORACIC SPINE 2 VW; Future 2. Rib pain on left side - XR RIBS LEFT W PA CHEST MIN 3 VW; Future 3. Vertigo 1,2. Discussed findings on CT A/P and XR regarding scoliosis of thoracic and lumbar spine. Plan to further evaluate with dedicated XR Orders placed - Will follow-up once results are received Discussed trial of PT to help with symptoms and to strengthen core 3. Discussed possible etiology of vertigo Provided handout for Lashay maneuver Follow-up if symptoms persist Robert verbalized understanding of above. Subjective Person Accompanying : No one Chief Complaint Patient presents with ??? Pain Left flank Onset: 3-4 weeks. Patient denies injury. Patient reports It's a constant pain. . PEG Pain Score PEG Score Average Average Pain in the last week Interference with Enjoyment of Life Interference with General Activity 08/04/2021 4.3 5 8 0 03/25/2020 5.0 7 7 1 HPI Here to discuss ongoing LEFT flank pain that has been present for months (>4 months). States that his pain (ache) is present constantly and worse with certain movements. Especially getting in and out of the truck and sleeping. History of diverticulitis and he states that this pain is different than his diverticulitis pain. Patient denies nausea, vomiting, heartburn, dysphagia, odynophagia, diarrhea, constipation, melena,iwona blood in stool, unexplained weight loss, change in bowel movements and abdominal pain. Patient admits to a normal appetite. Reviewed previous imaging which revealed 08/19/2020: There is levoscoliosis of the lumbar spine. 03/04/2021: Mild thoracic spine degenerative changes and lower thoracic dextrocurvature States that he has been taking Miralax and Probiotic Also c/o vertigo every morning when he gets out of bed. Described vertiginous sensation. States that it is present while he is getting ready for work and then resolved. Denies any episodes during theday. Denies any falls. New or unusual headaches, changes in vision Denies fever/chills, cough, N/V/D, constipation, neck pain, back pain, abdominal pain, headache, chest pain and shortness of breath. Review of Systems as above Social Determinants of Health: Future appointments already scheduled: Future Appointments Date Time Provider Department Center 09/25/2021 8:00 AM Delfino Aragon CRNP [facility] Objective Vitals: 08/04/21 1619 BP: 134/84 Pulse: 74 Temp: 97.1 ??F (36.2 ??C) TempSrc: Temporal SpO2: 98% Weight: 104 kg (230 lb) Cuff Size: Large Position: Sitting Body mass index is 31.19 kg/m??. Physical Exam Vitals and nursing note reviewed. Constitutional: Appearance: Normal appearance. HENT: Right Ear: Tympanic membrane, ear canal and external ear normal. Left Ear: Tympanic membrane, ear canal and external ear normal. Cardiovascular: Rate and Rhythm: Normal rate and regular rhythm. Pulses: Normal pulses. Heart sounds: Normal heart sounds. No murmur heard. Pulmonary: Effort: Pulmonary effort is normal. Breath sounds: Normal breath sounds. No wheezing. Musculoskeletal: Back: Skin: General: Skin is warm and dry. Neurological: Mental Status: He is alert and oriented to person, place, and time. Chart Review: Chart Sections reviewed by provider: documented in this encounter Plan of Treatment Not on file documented as of this encounter Goals Goal Patient Goal Type Associated Problems Recent Progress Patient-Stated? Author Blood Pressure < 140/90 Blood Pressure 160/96( 024 8:13 AM EDT) No Kilo Wang MD documented as of this encounter Results * XR THORACIC SPINE [...] or spondylolisthesis in the thoracic spine. Dictating Dasha Sheppard PA-C, [facility] [...] LEFT rib fracture. Scoliosis. Dictating Dasha Sheppard PA-C, [facility] ORD ERABLES Final Result documented in this encounter Visit Diagnoses Diagnosis Chronic left-sided thoracic back pain- Primary Rib pain on left side Chest pain, unspecified Vertigo Dizziness and giddiness Rib pain on left side Chest pain, unspecified Chronic left-sided thoracic back pain documented in this encounter Care Teams Physician Intensivist Relationship Specialty Start Date End Date Dasha Sheppard PA-C [address] [address] PCP - General Family Practice 04/12/18 07/10/23 Kilo Wang MD Consulting Physician Neurology 08/30/16 12/01/21 Juan Haddad MD [address] [address] Otolaryngology 09/23/17 Trey Jennings MD [address] [place] [address] [place] [address] Consulting Physician Cardiothoracic Surgery 07/13/21 documented as of this encounter
--- OUTSIDE RECORDS SUMMARY | 2024-06-24 04:35 | XMS_ITS | Encounter Summary ---
Author Organization [facility] Address [address] [facility] [address] Care Team Providers Care French Pastry Cook Name Role Phone Juan Haddad MD Unavailable [phone] Dasha Sheppard PA-C Primary Care Provider Guerita Elliott PA-C Unavailable [phone] Reason for Visit * Test/Procedure/Other (Routine) - Closed Specialty Diagnoses / Procedures Referred By Contcarlie t Referred To Contact Radiology Diagnoses Radiculopathy of thoracolumbar region Procedures XR PELVIS 1 OR 2 VW Rai De La Cruz, Gui [place], [place] [address] [place] [address] Phone: tel: fax: Referral ID Status Reason Start Date Expiration Date Visits Re quested Visits Authorized [id number] Closed 01/07/2022 01/07/2023 1 1 Encounter Details Date Type Department Care Team (Latest Contact Info) Description 01/07/2022 3:20 PM EDT Ancillary Procedure [facility] [address] [place] [id number] Radiculopathy of thoracolumbar region Discharge Disposition: Home/Self Care Social History Tobacco [...] and Family Not on file 09/30/2020 Attends Gnosticist Services Not on file 09/30 Active Member [...] Name Priority Date/Time Associated Diagnosis Comments XR PELVIS 1 OR 2 VW Routine 01/07/2022 3:29 PM EDT Radiculopathy of thoracolumbar region documented in this encounter Results * XR PELVIS 1 OR 2 VW (01/07/2022 3:29 PM EDT) Anatomical Region Laterality Modality Pelvis Computed Radiogr aphy 01/07/2022 3:23 PM EDT Impressions 01/07/2022 4:29 PM EDT No significant bony abnormalities in the pelvis. Subtle leg length discrepancies as described. Dictating Narrative 01/07/2022 4:29 PM EDT Pelvis, single view HISTORY: Mid back pain. Physician told patient one leg was shorter than the other. AP erect image of the pelvis were performed. Measurement iliac crest down to the lowest area on the image, demonstrates a 2 mm discrepancy, the RIGHT iliac crest higher than the LEFT. Similar findings when measured from the femoral heads. Sacroiliac joints symmetric. No significant bony abnormalities in the pelvis. Degenerative disc disease present in the lower lumbar spine. Procedure Note Husam Rose, - 01/07/2022 Pelvis, single view HISTORY: Mid back pain. Physician told patient one leg was shorter thanthe other. AP erect image of the pelvis were performed. Measurement iliac crest downto the lowest area on the image, demonstrates a 2 mm discrepancy, theRIGHT iliac crest higher than the LEFT. Similar findings when measuredfrom the femoral heads. Sacroiliac joints symmetric. No significant bonyabnormalities in the pelvis. Degenerative disc disease present in thelower lumbar spine. IMPRESSION: No significant bony abnormalities in the pelvis. Subtle leg lengthdiscrepancies as described. Dictating us Gui Atwood Jr., [place] [facility] ORDE RABMARIBEL Final Result documented in this encounter Visit Diagnoses Diagnosis Radiculopathy of thoracolumbar region Thoracic or lumbosacral neuritis or radiculitis, unspecified documented in this encounter Care Teams French Pastry Cook Relationship Specialty Start Date End Date Dasha Sheppard PA-C [address] [address] PCP - General Family Practice 04/12/18 07/10/23 Juan Haddad MD [address] [address] Otolaryngology 09/23/17 Guerita Elliott PA-C [address] [address] [place] [address] [facility] Specialist Cardiothoracic Surgery 01/03/22 06/27/22 documented as of this encounter
--- OUTSIDE RECORDS SUMMARY | 2024-06-24 04:35 | XMS_ITS | Encounter Summary ---
Author Organization [facility] alth Address [address] [place] [address] Care Team Providers Care Supervisor Histology Name Role Phone Kilo Wang MD Unavailable [phone] Juan Haddad MD Unavailable [phone] Dasha Sheppard PA-C Primary Care Provider Trey Jennings MD Unavailable [phone] Reason for Referral * Test/Procedure/Other (Routine) - Closed Specialty Diagnoses / Procedures Referred By Contac t Referred To Contact Diagnoses Thoracic spine pain Other forms of scoliosis, thoracolumbar region Procedures MR THORACIC SPINE WO CONTRAST Yadiel Henry DO [address] [place] [address] Phone: tel: fax: Referral ID Status Reason Start Date Expiration Date Visits Re quested Visits Authorized [id number] Closed 09/11/2021 03/10/2022 1 1 Reason for Visit * Reason Comments Back Pain * New Consult/Second Opinion (Routine) - Closed Specialty Diagnoses / Procedures Referred By Contac t Referred To Contact Orthopedic Surgery Diagnoses Chronic left-sided thoracic back pain Thoracogenic scoliosis of thoracolumbar region Dasha Sheppard PA-C [address] [facility] [place] [address] Phone: tel: fax: [facility] [address] [place] [address] Phone: tel: fax: Referral ID Status Reason Start Date Expiration Date V isits Requested Visits Authorized [id number] Closed Co-managemen t Until Stable 08/25/2021 08/25/2022 1 1 Encounter Details Date Type Department Care Team (Latest Contact Info) Description 09/04/2021 1:10 PM EDT Office Visit [facility] [address] [place] [address] Yadiel Henry, DO [address] [place] [address] Other forms of scoliosis, thoracolumbar region (Primary Dx); Thoracic spine pain Discharge Disposition: [...] and Family Not on file 09/30/2020 Attends [employer] Services Not on file 09/30 Active Member [...] Sign Reading Time Taken Comments Blood Pressure 127/76 09/04/2021 1:25 PM EDT Pulse 92 09/04/2021 1:25 PM EDT Temperature - - Respiratory Rate - - Oxygen Saturation - - Inhaled Oxygen Concentration - - Weight 104 kg (230 lb) 09/04/2021 1:25 PM EDT Height 182.9 cm (6') 09/04/2021 1:25 PM EDT Body Mass Index 31.19 09/04/2021 1:25 PM EDT documented in this encounter Patient Instructions * Patient Instructions* Guerita Vazquez LPN - 09/04/2021 1:46 PM EDT Our test scheduling department will be in contact with you in the next 5-7 business days once authoriaztion has been obtained. Please contact our office at [phone] if you have not been contacted. documented in this encounter Progress Notes * Yadiel Henry DO - 09/04/2021 1:10 PM EDT Assessment & Plan: Assessment: ?? Several month history of persistent thoracic back pain I had an extensive conversation with the patient regarding both the diagnosis and prognosis of thiscondition. All questions were answered prior to the end of the encounter. The patient was agreeable with the plan as listed. Plan: ?? I personally interpreted reviewed with the patient his thoracic radiographs which show hene-eu-vrkfbtpu multilevel spondylotic changes and mild thoracolumbar degenerative scoliosis. He has a several month history of persistent midline mid thoracic back pain despite attempted physical therapy, medications and activity modification. As result of his lack of improvement with conservative treatment I have recommended obtaining an MRI of the thoracic spine for further evaluation. ?? Follow-up: Patient will be contacted with MRI results and further treatment recommendations. ?? If there is a problem or concern before the scheduled followup appointment, the patient should not hesitate to call or come in sooner. All questions were answered. Current visit Dx include: 1. Thoracic spine pain Order Summary Future Labs/Procedures Expected by MR THORACIC SPINE WO CONTRAST 09/11/2021 Imaging Results: No results found. XR THORACIC SPINE 2 [facility] 08/05/21 independently reviewed/interpreted unless otherwise noted and compared with radiologist read if available ?? HISTORY: Pain. ?? Two views of the thoracic spine were obtained. ?? There are 12 thoracic vertebral bodies. ?? There is a thoracic scoliosis convex toward the RIGHT. ?? Vertebral body heights are maintained. Marginal osteophytes are present. No evidence of a fracture or spondylolisthesis. ?? Subjective: HPI Robert Alexis Jr. is a 56 y.o. male who presents for initial evaluation of several month history midthoracic back pain. Presentation at initial office evaluation (on 09/04/21): Ongoing for several months without a precipitating cause - denies specific inciting injury or traumatic event; described as dull and achy. Thepatient rates the pain 3 out of 10. He has been following with his family physician and initiated acourse of physical therapy without any improvement. Radiographs of the thoracic spine were obtainedas described above. Outside records reviewed: PCP office notes, radiographs thoracic spine -Located - midline mid thoracic spine with intermittent radiation to the left lateral thorax -Alleviating factors: Nothing -Exacerbating factors: Activity; -Associated with numbness/tingling/paresthesias - NO; Weakness - NO; bowel/bladder issues - NO. Recent fever, chills, night sweats, unintended weight loss - NO -Treatment history: patient is taking occasional hcnv-jlo-yhglozg medications for pain control. Attempted conservative therapies such as independent exercise, heat or ice modalities, iftp-fln-ylvqubrkzujaervsmh, non-steroidal anti- inflammatories and physical therapy. -Currently is not in a formal PT program; has completed a course in the past. 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 Objective: Vitals: Visit Vitals BP 127/76 (BP Source: Left Arm, Position: Sitting) Pulse 92 Ht 1.829 m (6') Wt 104 kg (230 lb) BMI 31.19 kg/m?? Review of Systems Constitutional: Negative for chills, diaphoresis and fever. HENT: Positive for tinnitus. Negative for congestion, ear discharge, ear pain, hearing loss, nosebleeds, sinus pain and sore throat. Eyes: Negative for photophobia, pain, discharge and redness. Respiratory: Negative for cough, shortness of breath, wheezing and stridor. Cardiovascular: Negative for chest pain, palpitations and leg swelling. Gastrointestinal: Positive for abdominal pain and constipation. Negative for blood in stool, diarrhea, nausea and vomiting. Genitourinary: Positive for flank pain. Negative for dysuria, frequency, hematuria and urgency. Musculoskeletal: Positive for back pain. Negative for myalgias and neck pain. Skin: Negative for rash. Neurological: Positive for weakness. Negative for dizziness, tremors, seizures and headaches. Endo/Heme/Allergies: Negative for environmental allergies and polydipsia. Does not bruise/bleed easily. Psychiatric/Behavioral: Negative for hallucinations and suicidal ideas. The patient is not nervous/anxious. Physical Exam Ortho Exam General: Alert, cooperative, no acute distress HEENT: Normocephalic, Conjunctivae clear. Neck: Supple Lungs: Regular rate without wheeze on room air Heart: Palpable peripheral pulses Abdomen: Soft, non-tender. Extremities: Upper and lower extremities are warm without tenderness and have palpable pulses bilaterally. Normal muscle bulk and tone bilaterally in upper and lower extremities. Musculoskeletal: Muscle strength is symmetric at 5/5 in UEs. Muscle strength is symmetric at 5/5 inlower extremities. Gait and station are normal without antalgia or ataxia. Thoracic and lumbar range of motion are unrestricted. Mild thoracolumbar scoliosis is noted with maintained sagittal alignment and coronal balance. Previous surgical incisions - NO No tenderness to palpation or percussion about the midline spinous processes. Negative for palpablestep-off or deformity. Neurologic: Sensory examination is normal to light touch, pinprick and proprioception. The plantar reflex is downgoing (Negative Babinski???s sign). Ankle clonus is Absent. Lower extremity reflexes: Patellar (L4) - 2 on right, 2 on left Achilles (S1) - 2 on right, 2 on left Allergies: He is allergic to quinolones and zoloft [sertraline]. Past Medical History: He has a past medical history of Adenoma of left adrenal gland, Asthma, Lyme disease, and SI (sacroiliac) joint inflammation (CMS/HCC) (08/06/2021). Past Surgical History: He has a past surgical history that includes ENDOSCOPY, ESOPHAGUS (04/22/2016); HX Colonoscopy (04/22/2016); hx cyst removal (approx 2015); hx carpal tunnel release (Right, 03/02/2018); hx carpal tunnel release (Left, 03/23/2018); and HX Decompression Nerve Cubital Tunnel Release (Left, 03/23/2018). Social History: He reports that he has never smoked. His smokeless tobacco use includes chew. He reports that he does not drink alcohol and does not use drugs. Family History: His family history includes Cancer (age of onset: 67) in his mother. Current Medications: amLODIPine (NORVASC) 5 MG tablet, Take 1 tablet by mouth daily - Call [facility] for Md appt. Active Problems: He has Essential hypertension; Asthma; Tubular adenoma of colon. 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 documented in this encounter Plan of Treatment Not on file documented as of this encounter Goals Goal Patient Goal Type Associated Problems Recent Progress Patient-Stated? Author Blood Pressure < 140/90 Blood Pressure 160/96( 024 8:13 AM EDT) Kilo Mora MD documented as of this encounter Results * MR THORACIC SPINE WO CONTRAST (09/22/2021 9:50 AM EDT) Anatomical Region Laterality Modality T-Spine Magnetic Resonan ce 09/22/2021 9:14 AM EDT Impressions 09/22/2021 12:10 PM EDT Multilevel degenerative changes with mild scoliosis. No compression fractures are seen. There are extradural defects seen at multiple levels a little more so at T8-T9 through T10-T11. These represent disc bulges. Dictating Narrative 09/22/2021 12:10 PM EDT MR thoracic spine without contrast HISTORY: Mid back pain for several months. T1, T2 and STIR sagittal as well as T1 and T2-weighted axial imaging of the thoracic spine was obtained. Correlation made with plain films of the thoracic spine dated 08/05/2021. There are 12 thoracic segments. The thoracic vertebrae maintain their stature and have a normal T1 and T2 appearance. No compression fractures are seen. There is a mild thoracic scoliosis with the convexity towards the RIGHT. There are multilevel degenerative changes more so in the mid to lower dorsal spine. The thoracic cord has a normal T1 and T2 appearance. No cord compression or intrinsic thoracic cord abnormality is present. There are slight annular bulges at T2-T3 and T3-T4 and on the RIGHT side at T6-T7 and minimally at T7-T8. There are prominent annular bulges seen at T8-T9, T9-T10 and T10-T11. I do not see any paraspinal soft tissue masses. Procedure Note Jay Delgado MD - 09/22/2021 MR thoracic spine without contrast HISTORY: Mid back pain for several months. T1, T2 and STIR sagittal as well as T1 and T2-weighted axial imaging ofthe thoracic spine was obtained. Correlation made with plain films of thethoracic spine dated 08/05/2021. There are 12 thoracic segments. The thoracic vertebrae maintain their stature and have a normal T1 and K7siywkvxmlo. No compression fractures are seen. There is a mild thoracicscoliosis with the convexity towards the RIGHT. There are multileveldegenerative changes more so in the mid to lower dorsal spine. The thoracic cord has a normal T1 and T2 appearance. No cord compressionor intrinsic thoracic cord abnormality is present. There are slightannular bulges at T2-T3 and T3-T4 and on the RIGHT side at T6-T7 andminimally at T7-T8. There are prominent annular bulges seen at T8-T9,T9-T10 and T10-T11. I do not see any paraspinal soft tissue masses. IMPRESSION: Multilevel degenerative changes with mild scoliosis. No compressionfractures are seen. There are extradural defects seen at multiple levels alittle more so at T8-T9 through T10-T11. These represent disc bulges. Dictating [facility] RIS MR ORDERABLES Final Result documented in this encounter Visit Diagnoses Diagnosis Other forms of scoliosis, thoracolumbar region- Primary Thoracic spine pain Pain in thoracic spine Thoracic spine pain Pain in thoracic spine Other forms of scoliosis, thoracolumbar region documented in this encounter Care Teams Supervisor Histology Relationship Specialty Start Date End Date Dasha Sheppard PA-C [address] [place] [address] PCP - General Family Practice 04/12/18 07/10/23 Kilo Wang MD Consulting Physician Neurology 08/30/16 12/01/21 Juan Haddad MD [address] [place] [address] Otolaryngology 09/23/17 Trey Jennings MD [address] [facility] [address] [place] [address] Consulting Physician Cardiothoracic Surgery 07/13/21 documented as of this encounter
--- OUTSIDE RECORDS SUMMARY | 2024-06-24 04:35 | XMS_ITS | Encounter Summary ---
Author Organization [facility] alth Address [address] [place] [address] Care Team Providers Care Layer Out Plate Glass Name Role Phone Juan Haddad MD Unavailable [phone] Dasha Sheppard PA-C Primary Care Provider Guerita Elliott PA-C Unavailable [phone] Reason for Visit * Reason Comments Colonoscopy * Test/Procedure/Other (Routine) - Closed Specialty Diagnoses / Procedures Referred By Contcarlie t Referred To Contact Diagnoses Family history of colon cancer Hx of colonic polyps Procedures COLONOSCOPY, SCREENING Joe Srivastava MD [address] [facility] [address] [place] [address] Phone: tel: fax: Referral ID Status Reason Start Date Expiration Date Visits Re quested Visits Authorized [id number] Closed 06/16/2022 06/16/2023 1 1 Encounter Details Date Type Department Care Team (Late st Contact Info) Description 06/25/2022 2:15 PM EST Procedure visit [facility] [address] [place] [address] Joe Srivastava MD [address] [facility] [address] [place] [address] Family history of colon cancer; Hx of colonic polyps Discharge Disposition: Home/Self Care Social History Tobacco [...] and Family Not on file 09/30/2020 Attends [employer] Services Not on file 09/30 Active Member [...] of colon cancer Hx of colonic polyps documented in this encounter Results * COLONOSCOPY, SCREENING (06/25/2022 [...] CARDIOLOGY-E KG 06/25/2022 1:59 PM EST Narrative [facility] - 06/25/2022 2:36 PM EST [...] the procedure by the physician, the ? software tester and the library media technician. The procedure was ? verified in [...] abnormality. Note Initiated On: 06/25/2022 1:59 PM us Joe Srivastava MD GI PROCEDURE ORDERABLES Final R esult [facility] CARDIOLOGY-EKG [address] [facility] [place] [address] documented in this encounter Visit Diagnoses Diagnosis Family history of colon cancer Family history of malignant neoplasm of gastrointestinal tract Hx of colonic polyps Personal history of colonic polyps documented in this encounter Care Teams Layer Out Plate Glass Relationship Specialty Start Date End Date Dasha Sheppard PA-C [address] [place] [address] PCP - General Family Practice 04/12/18 07/10/23 Juan Haddad MD [address] [place] [address] Otolaryngology 09/23/17 Guerita Elliott PA-C [address] [place] [address] [place] [address] [facility] Specialist Cardiothoracic Surgery 01/03/22 06/27/22 documented as of this encounter
--- OUTSIDE RECORDS SUMMARY | 2024-06-24 04:35 | XMS_ITS | Encounter Summary ---
Author Organization [facility] alth Address [address] [place] [address] Care Team Providers Care Black Jack Dealer Name Role Phone Kilo Wang MD Unavailable [phone] Juan Haddad MD Unavailable Dasha Sheppard PA-C Primary Care Provider Trey Jennings MD Unavailable [phone] Reason for Visit * Reason Comments Refill Request Amlodipine / Defer t o PCP Encounter Details Date Type Department Care Team (Late st Contact Info) Description 10/14/2021 Refill [facility] [address] [facility], [address] [place] [address] Matthew Rushing MD [address] [place] [id number] Refill Request (Amlodipine / Defer to PCP) Social History Tobacco Use Types Packs/Day Years [...] and Family Not on file 09/30/2020 Attends [employer] Not on file 09/30 Active Member [...] encounter Miscellaneous Notes * Telephone Encounter - Manuel Almonte CMA - 10/14/2021 3:37 PM EDT Electronic refill request received from [facility] for Norvasc. Medication is on patient's current medication list. Medication agreement on file?: N/A Lab Results Component Value Date SODIUM 138 04/14/2021 POTASSIUM 4.1 04/14/2021 CREATININE 0.9 04/14/2021 HGB 15.0 04/09/2021 PLATELETCT 251 04/09/2021 Lab Results Component Value Date GLUCOSE 88 04/14/2021 SODIUM 138 04/14/2021 POTASSIUM 4.1 04/14/2021 CHLORIDE 102 04/14/2021 BUN 9 04/14/2021 CREATININE 0.9 04/14/2021 CALCIUM 9.4 04/14/2021 GFR >60 04/14/2021 Lab Results Component Value Date CHOLTOTAL 202 (H) 04/20/2018 TG 75 04/20/2018 HDLCHOL 40 04/20/2018 LDLCHOL 147 (A) 04/20/2018 Last refilled: 04/21/21, #90 with 1 refills Last appointment: 08/04/2021 Last telemedicine visit: Visit date not found Next appointment: Visit date not found * Telephone Encounter - Sondra Phipps - 10/14/2021 3:00 PM EDT Last OV at [facility] 03/25/2020. Not scheduled for follow up at [facility] and NOT on recall for follow up. Defer refills to PCP for medication management documented in this encounter Plan of Treatment Not on file documented as of this encounter Goals Goal Patient Goal Type Associated Problems Recent Progress Patient-Stated? Author Blood Pressure < 140/90 Blood Pressure 160/96( 024 8:13 AM EDT) No Kilo Wang MD documented as of this encounter Visit Diagnoses Not on filedocumented in this encounter Care Teams Black Jack Dealer Relationship Specialty Start Date End Date Dasha Sheppard PA-C [address] [place] [address] PCP - General Family Practice 04/12/18 07/10/23 Kilo Wang MD Consulting Physician Neurology 08/30/16 12/01/21 Juan Haddad MD [address] [facility] [place] [address] Otolaryngology 09/23/17 Trey Jennings MD [address] [facility] [address] [place] [address] Consulting Physician Cardiothoracic Surgery 07/13/21 documented as of this encounter
--- OUTSIDE RECORDS SUMMARY | 2024-06-24 04:35 | XMS_ITS | Encounter Summary ---
Author Organization [facility] alth Address [address] [place] [address] Care Team Providers Care Electronics Mechanic Name Role Phone Juan Haddad MD Unavailable [phone] Dasha Sheppard PA-C Primary Care Provider Guerita Elliott PA-C Unavailable Matthew Rushing MD Unavailable [phone] Trey Jennings MD Unavailable [phone] Reason for Visit * Reason Comments Recheck Follow up TAA Encounter Details Date Type Department Care Team (Late st Contact Info) Description 06/23/2022 9:00 AM EST Office Visit Cardiothoracic Surgery [address] [phone] Trey Jennings MD [address] [facility] [address] [place] [address] Aneurysm of ascending aorta without rupture (Primary Dx) Discharge Disposition: Home/Self Care Social [...] and Family Not on file 09/30/2020 Attends [employer] Not on file 09/30 Active Member [...] Sign Reading Time Taken Comments Blood Pressure 142/80 06/23/2022 9:00 AM EST Pulse - - Temperature - - Respiratory Rate - - Oxygen Saturation - - Inhaled Oxygen Concentration - - Weight - - Height - - Body Mass Index - - documented in this encounter Progress Notes * Teresa Cazares PA-C - 06/21/2022 2:13 PM EST Robert Alexis Jr. is a 57 y/o male with past medical history of hypertension, hyperlipidemia, asthma, Lyme disease, chewing tobacco use (uses Zyn which has nicotine but no tobacco) and adenoma of the L adrenal glad [...] TR. 07/04/20, visit with Guerita Elliott PA-C: MRA chest: SoV 4.8cm, Ascending aorta 3.4cm. No /AI. Norvasc was increased to 10mg daily at that visit. 07/15/21, visit with Guerita Elliott PA-C: MRA chest: SoV 5.0cm, ascending aorta 3.4cm. Today, patient states that he took himself off his BP med in January and his BPs actually improved. He states the systolic was 108-120. He uses a wrist cuff. He is also using Nyz all day long which didier chewing nicotine product without tobacco. He states he has been constantly fatigued. He stopped Norvasc and felt better and no longer had leg swelling. He has no history of first degree relative with sudden . Current antihypertensives include: None Physical exam: Visit Vitals BP (!) 142/80 Heart sounds- regular rate and rhythm, no murmur Lungs: CTA B/L Diagnostic data: MRI/MRA of the chest 06/06/22 has been personally reviewed. The aortic valve morphology is trileaflet with no appreciable stenosis and no appreciable regurgitation. Maximal aortic root dimension (sinus to sinus chord) is 47mm. There is no appreciable effacement ofthe sinotubular junction. Maximal ascending aortic dimension is 34mm. There is no evidence of dissection or rupture. The aortic arch and descending aortic appear normal branching. A/P: Based on these findings, the aneurysm appears stable. Interval follow-up is recommended in 24 months with repeat MRI/MRA Chest and echocardiogram. Surgical triggers would include: -aortic aneurysm size of >5.5cm - Aneurysm growth rate greater than 3-5mm/year annualized - Aortic size index greater than 2.75 - Worsened aortic valve function - Dissection/rupture or other high risk features Discussed taking BP with arm cuff as these are more accurate and if his systolic are > 130 consistently he will need to trial a BB. He will follow-up with PCP if his BPs are high. We have again given the patient an educational sheet on thoracic aortic aneurysms and the recommended lifestyle changes. In summary, I have encouraged the patient to 1) avoid tobacco products, 2) avoid quinolone antibiotics, 3) avoid heavy (>40lb) exertional lifting, and 4) maintain systolic blood pressure less than 130mmHg. Associated attestation - Trey Jennings MD - 06/30/2022 9:14 AM EST Advanced Diamond Cleaner note reviewed. I agree with the impression and plan as described based on the documentation in the note. Stable aortic root dimensions (currently 47mm, previously 50mm). Otherwise patient in usual state of health and denies complaints. He is somewhat hypertensive in office today and removed himself from BP meds. Encouraged complianceand improved BP control. Given overall stability of his aorta and root for several years, we will begin to space imaging intervals. Plan for repeat MRA chest and TTE in 2 years. Trey Jennings M.D. Cardiovascular Surgery, [facility] Clinical Bogger Operator of Cardiac Surgery [facility] [employer] [facility] documented in this encounter Plan of Treatment Not on file documented as of this encounter Goals Goal Patient Goal Type Associated Problems Recent Progress Patient-Stated? Author Blood Pressure < 140/90 Blood Pressure 160/96( 024 8:13 AM EDT) No Salama, Kilo G, MD documented as of this encounter Visit Diagnoses Diagnosis Aneurysm of ascending aorta without rupture (CMS/HCC)- Primary documented in this encounter Care Teams Electronics Mechanic Relationship Specialty Start Date End Date Dasha Sheppard PA-C [address] [place] [address] PCP - General Family Practice 04/12/18 07/10/23 Juan Haddad MD [address] [address] Otolaryngology 09/23/17 Guerita Elliott PA-C [address] [address] [place] [address] [facility] Specialist Cardiothoracic Surgery 01/03/22 06/27/22 Matthew Rushing MD [address] [place] [address] [place] [address] [facility] Specialist Cardiology - General 06/27/22 06/27/22 Trey Jennings MD [address] [address] [facility] Specialist Cardiothoracic Surgery 06/27/22 documented as of this encounter
--- OUTSIDE RECORDS SUMMARY | 2024-06-24 04:35 | XMS_ITS | Encounter Summary ---
Author Organization [facility] alth Address [address] [facility] [place] [address] Care Team Providers Care Country Printer Apprentice Name Role Phone Kilo Wang MD Unavailable [phone] Juan Haddad MD Unavailable [phone] Dsaha Sheppard-C Primary Care Provider Trey Jennings MD Unavailable Reason for Visit * Reason Comments Recheck TS MRI [facility] Encounter Details Date Type Department Care Team (Late st Contact Info) Description 10/23/2021 8:30 AM EDT Office Visit [facility] [address] [place] [address] Yadiel Henry, [address] [place] [address] DDD (degenerative disc disease), thoracic (Primary Dx) Discharge Disposition: Home/Self Care Social [...] and Family Not on file 09/30/2020 Attends [employer] Not on file 09/30 Active Member [...] Sign Reading Time Taken Comments Blood Pressure 137/88 10/23/2021 8:39 AM EDT Pulse 80 10/23/2021 8:39 AM EDT Temperature - - Respiratory Rate - - Oxygen Saturation - - Inhaled Oxygen Concentration - - Weight 105 kg (232 lb) 10/23/2021 8:39 AM EDT Height 182.9 cm (6') 10/23/2021 8:39 AM EDT Body Mass Index 31.46 10/23/2021 8:39 AM EDT documented in this encounter Progress Notes * NaplesYadiel Keith Robert, DO - 10/23/2021 8:30 AM EDT Assessment & Plan: Assessment: ?? Several month history of thoracic back pain I had an extensive conversation with the patient regarding both the diagnosis and prognosis of thiscondition. All questions were answered prior to the end of the encounter. The patient was agreeable with the plan as listed. Plan: ?? I personally interpreted reviewed with the patient his thoracic MRI which reveals multilevel mild degenerative changes with several areas minor central disc protrusions. There is no evidence significant central spinal stenosis or cord compression. Additionally, there are no areas significant neural foraminal stenosis. We discussed that his back pain is likely secondary to these underlying degenerative changes. We reviewed additional treatment options with ongoing conservative management, home exercise program and anti-inflammatories. We also discussed the possibility pain management referral for cortisone injection. At this time, he feels as though his symptoms are manageable and will continue with home exercise program and anti-inflammatories as needed. I have asked him to contact theoffice if he would require interventional pain management referral in the future. ?? Follow-up: PRN ?? If there is a problem or concern before the scheduled followup appointment, the patient should not hesitate to call or come in sooner. All questions were answered. Current visit Dx include: 1. Thoracic spine pain Imaging Results: No results found. XR THORACIC SPINE 2 [facility] 08/05/21 independently reviewed/interpreted unless otherwise noted and compared with radiologist read if available ?? HISTORY: Pain. ?? Two views of the thoracic spine were obtained. ?? There are 12 thoracic vertebral bodies. ?? There is a thoracic scoliosis convex toward the RIGHT. ?? Vertebral body heights are maintained. Marginal osteophytes are present. No evidence of a fracture or spondylolisthesis. ?? MR thoracic spine without contrast [facility] 09/22/21 independently reviewed/interpreted unless otherwise noted and compared with radiologist read if available HISTORY: Mid back pain for several months. ?? T1, T2 and STIR sagittal as well as T1 and T2-weighted axial imaging of the thoracic spine was obtained. Correlation made with plain films of the thoracic spine dated 08/05/2021. ?? There are 12 thoracic segments. ?? The thoracic vertebrae maintain their stature and have a normal T1 and T2 appearance. No compression fractures are seen. There is a mild thoracic scoliosis with the convexity towards the RIGHT. Thereare multilevel degenerative changes more so in the mid to lower dorsal spine. ?? The thoracic cord has a normal T1 and T2 appearance. No cord compression or intrinsic thoracic cordabnormality is present. There are slight annular bulges at T2-T3 and T3-T4 and on the RIGHT side atT6-T7 and minimally at T7-T8. There are prominent annular bulges seen at T8-T9, T9-T10 and T10-T11.I do not see any paraspinal soft tissue masses. Subjective: CHENTE Alexis Jr. is a 56 y.o. male who presents for follow-up evaluation of intermittent lower thoracic back pain. Overall, his symptoms are unchanged. He reports achy bilateral paraspinal discomfort about the lower thoracic spine with bending and twisting activities. Symptoms are improved with rest. Denies any radiating symptomatology. He is utilizing mhqi-smr-ijtmoxq anti-inflammatories and continuing his home exercise program. He presents today to review recent MRI thoracic spine. Presentation at initial office evaluation (on 09/04/21): Ongoing for several months without a precipitating cause - denies specific inciting injury or traumatic event; described as dull and achy. The patient rates the pain 3 out of 10. He has been following with his family physician and initiated a course of physical therapy without any improvement. Radiographs of the thoracic spine were obtained as described above. Outside records reviewed: PCP office notes, radiographs thoracic spine -Located - midline mid thoracic spine with intermittent radiation to the left lateral thorax -Alleviating factors: Nothing -Exacerbating factors: Activity; -Associated with numbness/tingling/paresthesias - NO; Weakness - NO; bowel/bladder issues - NO. Recent fever, chills, night sweats, unintended weight loss - NO -Treatment history: patient is taking occasional wvnc-zya-oagouov medications for pain control. Attempted conservative therapies such as independent exercise, heat or ice modalities, dcwj-opd-xzhofngiauxaeybuip, non-steroidal anti- inflammatories and physical therapy. -Currently [...] and medications. Objective: Vitals: Visit Vitals BP 137/88 (BP Source: Right Arm, Position: Sitting) Pulse 80 Ht 1.829 m (6') Wt 105 kg (232 lb) BMI 31.46 kg/m?? Review of Systems Constitutional: Negative for [...] Exam General: Alert, cooperative, no acute distress Musculoskeletal: Muscle strength is symmetric at 5/5 [...] by mouth daily - Call [facility] for Md appt. Active Problems: He has [...] their problem list. documented in this encounter Miscellaneous Notes * Addendum Note - Jem Herzog - 10/26/2021 10:59 AM EDTAddended by: JEM HERZOG on: 10/26/2021 10:59 AM Modules accepted: Level of Service documented in this encounter Plan of Treatment Not on file documented as of this encounter Goals Goal Patient Goal Type Associated Problems Recent Progress Patient-Stated? Author Blood Pressure < 140/90 Blood Pressure 160/96( 024 8:13 AM EDT) Kilo Mora MD documented as of this encounter Visit Diagnoses Diagnosis DDD (degenerative disc disease), thoracic- Primary Degeneration of thoracic or thoracolumbar intervertebral disc documented in this encounter Care Teams Country Printer Apprentice Relationship Specialty Start Date End Date Dasha Sheppard PA-C [address] [address] PCP - General Family Practice 04/12/18 07/10/23 Kilo Wang MD Consulting Physician Neurology 08/30/16 12/01/21 Juan Haddad MD [address] [address] Otolaryngology 09/23/17 Trey Jennings MD [address] [place] [address] [place] [address] Consulting Physician Cardiothoracic Surgery 07/13/21 documented as of this encounter
--- OUTSIDE RECORDS SUMMARY | 2024-06-24 04:35 | XMS_ITS | Encounter Summary ---
Author Organization [facility] alth Address [address] [place] [address] Care Team Providers Care Renewable Energy Broker Name Role Phone Kilo Wang MD Unavailable [phone] Juan Haddad MD Unavailable [phone] Dasha Sheppard PA-C Primary Care Provider Reason for Visit * Test/Procedure/Other (Routine) - Closed Specialty Diagnoses / Procedures Referred By Contac t Referred To Contact Radiology Diagnoses Left sided abdominal pain Constipation, unspecified constipation type History of diverticulitis Procedures CT ABDOMEN PELVIS W IV AND PO CONTRAST Delfino Aragon CRNP [address] [address] Phone: tel: fax: [facility] [address] [place] [address] Phone: tel: fax: Referral ID Status Reason Start Date Expiration Date Visits Re quested Visits Authorized [id number] Closed 04/17/2021 05/17/2021 1 1 Encounter Details Date Type Department Care Team (Latest Contact Info) Description 05/01/2021 9:00 AM EST Ancillary Procedure [facility] [address] [place] [phone] Left sided abdominal pain; Constipation, unspecified constipation type; History of diverticulitis Discharge Disposition: Home/Self Care Social History Tobacco [...] Procedure Name Priority Date/Time Associated Diagnosis Comments CT ABDOMEN PELVIS W IV AND PO CONTRAST Routine 05/01/2021 9:06 AM EST Left sided abdominal pain Constipation, unspecified constipation type History of diverticulitis documented in this encounter Results * CT ABDOMEN PELVIS W IV AND PO CONTRAST (05/01/2021 9:06 AM EST) Anatomical Region Laterality Modality Abdomen Computed Tomogra phy 05/01/2021 8:48 AM EST Impressions 05/01/2021 12:18 PM EST Extensive diverticulosis without evidence of diverticulitis. Solitary RIGHT kidney without hydronephrosis. Dictating Narrative 05/01/2021 12:18 PM EST PROCEDURE: CT ABDOMEN PELVIS W IV AND PO CONTRAST HISTORY: LEFT-sided abdominal pain. TECHNIQUE: CT scanning was performed through the abdomen and pelvis following oral and IV, 80 mL of Isovue 370, contrast administration. All exams performed by [facility] utilize one or more of the following dose optimization techniques:automated exposure control, adjustment of the mA and/or kV according to patient size and/or the use of iterative reconstruction techniques. ??Audits are completed at the protocol, device and patient level to ensure compliance. ??All protocols (per device) are periodically reviewed by a team of medical physicists, technologists and radiologists. FINDINGS: The liver enhances normally without evidence of a mass. The gallbladder looks unremarkable. The spleen is not enlarged. No evidence of a pancreatic or an adrenal mass. The LEFT kidney is absent. There is compensatory hypertrophy of the RIGHT kidney. No RIGHT hydronephrosis. No retroperitoneal or pelvic adenopathy. No free air or free fluid. There is extensive colonic diverticulosis, greatest in the descending and sigmoid colon. No evidence of diverticulitis. No evidence of appendicitis. No anterior abdominal wall hernia. No evidence of a bowel obstruction. Procedure Note Steven Anand MD - 05/01/2021 PROCEDURE: CT ABDOMEN PELVIS W IV AND PO CONTRAST HISTORY: LEFT-sided abdominal pain. TECHNIQUE: CT scanning was performed through the abdomen and pelvisfollowing oral and IV, 80 mL of Isovue 370, contrast administration. All exams performed by [facility] utilize one or more of the following doseoptimization techniques:automated exposure control, adjustment of the mAand/or kV according to patient size and/or the use of iterativereconstruction techniques. Audits are completed at the protocol, deviceand patient level to ensure compliance. All protocols (per device) areperiodically reviewed by a team of medical physicists, technologists andradiologists. FINDINGS: The liver enhances normally without evidence of a mass. The gallbladderlooks unremarkable. The spleen is not enlarged. No evidence of a pancreatic or an adrenal mass. The LEFT kidney is absent.There is compensatory hypertrophy of the RIGHT kidney. No RIGHThydronephrosis. No retroperitoneal or pelvic adenopathy. No free air or free fluid. There is extensive colonic diverticulosis, greatest in the descending andsigmoid colon. No evidence of diverticulitis. No evidence ofappendicitis. No anterior abdominal wall hernia. No evidence of a bowel obstruction. IMPRESSION: Extensive diverticulosis without evidence of diverticulitis. Solitary RIGHT kidney without hydronephrosis. Dictating us Delfino [facility] CT ORDERABLES Final Re sult documented in this encounter Visit Diagnoses Diagnosis Left sided abdominal pain Abdominal pain, unspecified site Constipation, unspecified constipation type History of diverticulitis documented in this encounter Administered Medications Inactive Administered Medications - up to 3 most recent administrations Medication Order MAR Action Action Date Dose Rate Site iopamidol (ISOVUE 370) 76 % VESICANT 100 mL 100 mL, Intravenous, IMG ONCE PRN, Other, Starting on Tue05/01/21 at 0907, For 1 dose, Monitor site closely as product is a VESICANT. Given 05/01/2021 9:07 AM EST 100 mLs right antecubital documented in this encounter Care Teams Renewable Energy Broker Relationship Specialty Start Date End Date Dasha Sheppard PA-C [address] [address] PCP - General Family Practice 04/12/18 07/10/23 Kilo Wang MD Consulting Physician Neurology 08/30/16 12/01/21 Juan Haddad MD [address] [address] Otolaryngology 09/23/17 documented as of this encounter
--- OUTSIDE RECORDS SUMMARY | 2024-06-24 04:35 | XMS_ITS | Encounter Summary ---
Author Organization [facility] alth Address [address] [place] [address] Care Team Providers Care Oracle Specialist Name Role Phone Kilo Wang MD Unavailable [phone] Juan Haddad MD Unavailable [phone] Dasha Sheppard-C Primary Care Provider Trey Jennings MD Unavailable [phone] Reason for Visit * Test/Procedure/Other (Routine) - Closed Specialty Diagnoses / Procedures Referred By Contac t Referred To Contact Diagnoses Thoracic spine pain Other forms of scoliosis, thoracolumbar region Procedures MR THORACIC SPINE WO CONTRAST Yadiel Henry DO [address] [place] [address] Phone: tel: fax: Referral ID Status Reason Start Date Expiration Date Visits Re quested Visits Authorized [id number] Closed 09/11/2021 03/10/2022 1 1 Encounter Details Date Type Department Care Team (Latest Contact Info) Description 09/22/2021 9:20 AM EDT Ancillary Procedure [address] [place] [phone] Yadiel Henry DO [address] [place] [address] Thoracic spine pain; Other forms of scoliosis, thoracolumbar region Discharge Disposition: Home/Self Care Social [...] and Family Not on file 09/30/2020 Attends [employer] Not on file 09/30 Active Member [...] Comments MR THORACIC SPINE WO CONTRAST Routine 09/22/2021 9:50 AM EDT Thoracic spine pain Other forms of scoliosis, thoracolumbar region documented in this encounter Results * MR [...] stature and have a normal T1 and D5pleskteiwp. No compression fractures are seen. There is [...] through T10-T11. These represent disc bulges. Dictating [facility] ORDERABLES Final Result documented in this encounter Visit Diagnoses Diagnosis Thoracic spine pain Pain in thoracic spine Other forms of scoliosis, thoracolumbar region documented in this encounter Care Teams Oracle Specialist Relationship Specialty Start Date End Date Dasha Sheppard PA-C [address] [address] PCP - General Family Practice 04/12/18 07/10/23 Kilo Wang MD Consulting Physician Neurology 08/30/16 12/01/21 Juan Haddad MD [address] [address] Otolaryngology 09/23/17 Trey Jennings MD [address] [place] [address] [place] [address] Consulting Physician Cardiothoracic Surgery 07/13/21 documented as of this encounter
--- OUTSIDE RECORDS SUMMARY | 2024-06-24 04:36 | XMS_ITS | Encounter Summary ---
Author Organization [facility] alth Address [address] [place] [address] Care Team Providers Care Safety Administrator Name Role Phone Kilo Wang MD Unavailable [phone] Juan Haddad MD Unavailable [phone] Dasha Sheppard PA-C Primary Care Provider Reason for Visit * Reason Comments Abdominal Pain Encounter Details Date Type Department Care Team (Late st Contact Info) Description 08/19/2020 3:55 AM EST - 08/19/2020 6:05 AM EST Emergency [facility] Emergency Dept [address] [place] [address] Douglas Noland MD [address] [place] [address] Diverticulitis of intestine, part unspecified, without perforation or abscess without bleeding Discharge Disposition: Home/Self Care Social History Tobacco Use Types Packs/Day Years Used Date Smoking Tobacco: Never Smokeless Tobacco: Current Chew Comments:chewing tobacco 2 c ans/week Alcohol Use Standard Drinks/Week Comments No 0 (1 standard drink = 0.6 oz pur e alcohol) PRAPARE - Transportation Answer Date Re corded [...] ex-partner or family member? Not on file 05/08/2020 Within the last year, have y ou been humiliated or emotionally abused in other ways by your partner, ex-partner or family member? Not on file 05/08/2020 Within the last year, have y ou been kicked, hit, slapped, or otherwise physically hurt by your partner, ex-partner or family member? Not on file 05/08/2020 Within the last year, have y ou been raped or forced to have any kind of sexual activity by your partner, ex-partner or family member? Not on file 05/08/2020 Depression Answer Date Recorded PHQ-9 Total Score 5 06/07/2020 Sex and Gender Information Value Date Recorded Sex Assigned at Not on file Legal Sex Male 11:25 PM EST Gender Identity Male 11/21/2019 7:11 PM EDT Sexual Orientation Not on file documented as of this encounter Last Filed Vital Signs Vital Sign Reading Time Taken Comments Blood Pressure 107/68 08/19/2020 6:00 AM EST Pulse 82 08/19/2020 6:00 AM EST Temperature 37.7 ??C (99.8 ??F) 08/19/2020 3:29 AM ES T Respiratory Rate 18 08/19/2020 6:00 AM EST Oxygen Saturation 95% 08/19/2020 6:00 AM EST Inhaled Oxygen Concentration - - Weight - - Height - - Body Mass Index - - documented in this encounter Discharge Instructions * Discharge Instructions* Caron Alves CRNP - 08/19/2020 5:51 AM EST Images from the original note were not included. Diverticulitis: Care Instructions Overview Diverticulitis occurs when pouches form in the wall of the colon and become inflamed or infected. It can be very painful. Doctors aren't sure what causes diverticulitis. There is no proof that foods such as nuts, seeds, or berries cause it or make it worse. A low-fiber diet may cause the colon to work harder to push stool forward. Pouches may form because of this extra work. It may be hard to think about healthy eating while you're in pain. But as you recover, you might think about how you can use healthy eating for overall better health. Healthy eating may help you avoid future attacks. Follow-up care is a zelaya part of your treatment and safety. Be sure to make and go to all appointments, and call your doctor if you are having problems. It's also a good idea to know your test resultsand keep a list of the medicines you take. How can you care for yourself at home? ?? Drink plenty of fluids. If you have kidney, heart, or liver disease and have to limit fluids, talk with your doctor before you increase the amount of fluids you drink. ?? Stay with liquids or a bland diet (plain rice, bananas, dry toast or crackers, applesauce) untilyou are feeling better. Then you can return to regular foods and slowly increase the amount of fiber in your diet. ?? Use a heating pad set on low on your belly to relieve mild cramps and pain. ?? Get extra rest until you are feeling better. ?? Be safe with medicines. Read and follow all instructions on the label. ? If the doctor gave you a prescription medicine for pain, take it as prescribed. ? If you are not taking a prescription pain medicine, ask your doctor if you can take an [id number]-[id number]-[id number] medicine. ?? If your doctor prescribed antibiotics, take them as directed. Do not stop taking them just because you feel better. You need to take the full course of antibiotics. ?? Do not use laxatives or enemas unless your doctor tells you to use them. When should you call for help? Call your doctor now or seek immediate medical care if: ? You have a fever. ? You are vomiting. ? You have new or worse belly pain. ? You cannot pass stools or gas. Watch closely for changes in your health, and be sure to contact your doctor if you have any problems. Where can you learn more? Go to https://www.[email or web address].net/maximo Enter H901 in the search box to learn more about Diverticulitis: Care Instructions. Current as of: October 03, 2019?Content Version: 12.8 ?? 7814-2747 [employer]. Care instructions adapted under license by your healthcare professional. If you have questions about a medical condition or this instruction, always ask your healthcare professional. [employer] disclaims any warranty or liability for your use of this information. documented in this encounter Medications at Time of Discharge amoxicillin-clavulanat e (AUGMENTIN) 875-125 MG pertab Take 1 tablet by mouth 2 times daily for 10 days. 20 tablet 08/19/2020 1 HYDROcodone-acetaminop hen (NORCO) 5-325 MG TABS pertab Take 1 tablet by mouth every 6 hours as needed. Max Daily Amount: 4 tablets 10 tablet 08/19/2020 1 ondansetron (ZOFRAN-ODT) 4 MG disintegratingtab Take 1 tablet by mouth every 6 hours as needed for Nausea. 15 tablet 08/19/2020 1 amLODIPine (NORVASC) 5 MG tablet Take 1 tablet by mouth daily. 90 tablet 3 06/04/2020 1 atorvastatin (LIPITOR) 20 MG tablet Take 1 tablet by mouth daily. 90 tablet 3 03/25/2020 1 documented as of this encounter ED Notes * Natalie Raman RN - 08/19/2020 5:57 AM EST Pt agreeable to discharge. * Natalie Raman RN - 08/19/2020 5:55 AM EST Pt medicated per the MAR. * Douglas Noland MD - 08/19/2020 4:49 AM EST Images from the original note were not included. Acuity: 3M=Urgent-Main HISTORY: Chief Complaint Patient presents with ??? Abdominal Pain HPI Robert Alexis Jr. is a 55 y.o. male who presents with chief complaint of Abdominal Pain. Past medical history of congenital absence of left kidney. Patient reports 2 weeks of worsening left lower quadrant pain. He reports concern for constipation, he had a small bowel movement yesterday. He denies nausea, vomiting. He reports he noted dysuria this morning, no hematuria. Reports history of diverticulitis. No history of kidney stone. He has not been febrile, denies chest pain, shortness of breath. Past Medical History: Diagnosis Date ??? Adenoma of left adrenal gland ??? Asthma ??? Lyme disease Past Surgical History: Procedure Laterality Date ??? ENDOSCOPY, ESOPHAGUS 04/22/2016 ??? HX CARPAL TUNNEL RELEASE Right 03/02/2018 Procedure: DECOMPRESSION NERVE MEDIAN CARPAL TUNNEL RELEASE: Carpal Tunnel Release; Surgeon: Devante Portillo DO; Location: [facility] OR; Laterality: Right; ??? HX CARPAL TUNNEL RELEASE Left 03/23/2018 Procedure: DECOMPRESSION NERVE MEDIAN CARPAL TUNNEL RELEASE: Carpal Tunnel Release; Surgeon: Devante Portillo DO; Location: [facility] OR; Laterality: Left; ??? HX COLONOSCOPY 04/22/2016 ??? HX CYST REMOVAL approx 2015 beneath eye-done at MD office w/ local anesthesia ??? HX DECOMPRESSION NERVE CUBITAL TUNNEL RELEASE Left 03/23/2018 Procedure: DECOMPRESSION NERVE CUBITAL TUNNEL RELEASE: Cubital Tunnel Release; Surgeon: Devante Portillo DO; Location: [facility] OR; Laterality: Left; Family History Problem Relation Age of Onset ??? Cancer Mother 67 colon Social History Substance Use Topics ??? Smoking status: Never Smoker ??? Smokeless tobacco: Current User Types: Chew Comment: chewing tobacco 2 cans/week ??? Alcohol use No Problem List Diagnosis ??? Thoracic aortic aneurysm without rupture (CMS/HCC) ??? Serrated polyp of colon Colonoscopy in JUN 2022 ??? Left carpal tunnel syndrome ??? Right carpal tunnel syndrome ??? Congenital absence of left kidney ??? Lyme disease ??? Cubital tunnel syndrome on left ??? Occipital neuralgia of right side ??? Bilateral carpal tunnel syndrome ??? Anxiety ??? Tubular adenoma of colon. Repeat colonoscopy in APR 2019 ??? Essential hypertension ??? Asthma Review of Systems Review of Systems both pertinent positive and negative findings of the review of systems, has been thoroughly documented in the HPI (above in the chart) and all other systems are negative. The Past Medical/Surgical History and the Social History for this patient have also been documentedby me in the HPI (above in the chart). I have also reviewed the Nursing Notes PHYSICAL EXAM: Vital Signs Temperature 99.8 ??F (37.7 ??C) (08/19/20328) Pulse/Heart Rate 100 (08/19/20404) Respiration 18 (08/19/20404) BP 130/73 (08/19/20404) MAP 95 MM HG (08/19/20404) SpO2 99 % (08/19/20404) O2 Device room air (08/19/20404) O2 Therapy Flow Pain Rating 8 (08/19/20426) Physical Exam Physical Exam Nursing notes and vital signs reviewed by me. Constitutional: 55 y.o. male in no acute distress. Stable VS. Alert, oriented x4 Head: Normocephalic and atraumatic. ENT: Mucus membranes pink and moist. Eyes: Conjunctiva appear normal. Neck: Normal range of motion. Neck supple. Cardiovascular: Regular rate and rhtym. No murmur. Intact distal pulses. No peripheral edema. Pulmonary/Chest: No respiratory distress. Lungs CTA. Respirations even, unlabored Abdominal: Abdomen soft. Bilateral lower quadrant tenderness, + rebound and guarding. No CVA tenderness. Musculoskeletal: Normal range of motion. Extremities are warm and well perfused. Neurological: No obvious focal neurologic deficits. Skin: Skin is warm and dry. EKG RHYTHM: EKG INTERPRETATION: OXYGEN SATURATION INTERPRETATION: Oxygen saturation is normal at 99% on room air LAB INTERPRETATION: Lab Results Component Value Units Lipase, Serum [[id number]] Collected: 08/19/20403 Updated: 08/19/20436 Order Status: Completed Lipase 22 U/L Comprehensive Metabolic Panel (CMP) [[id number]] (Abnormal) Collected: 08/19/20403 Updated: 08/19/20436 Order Status: Completed Glucose (serum) 109 mg/dL Blood Urea Nitrogen 12 mg/dL Sodium 139 mmol/L Potassium 4.1 mmol/L Chloride 101 mmol/L CO2 Venous 30.5 mmol/L Anion Gap 8 mmol/L Creatinine 1.2 mg/dL BUN/Creatinine Ratio 10 Ratio Calcium 9.2 mg/dL Protein Total Serum 6.8 g/dL Albumin 4.2 g/dL Comment: Result reflects use of Bromocresol Green Methodology. Bilirubin Total 1.0 mg/dL Alkaline Phosphatase 68 U/L AST (SGOT) 15 U/L ALT (SGPT) 19 U/L A/G Ratio 1.6 Ratio Globulin 2.6 gm/dL GFR >60 mL/min/1.73 sqm Comment: Notes for GFR: 1. Multiply result by 1.21 if patient is black/. 2. Chronic kidney disease: <60 mL/min/1.73 sq.m. Renal Failure: <15 mL/min/1.73 sq.m. Calcium, Corrected(Adj/Calc)Total 9.0 mg/dL CBC with Differential [[id number]] (Abnormal) Collected: 08/19/20403 Updated: 08/19/20413 Order Status: Completed WBC Count 11.8 10*3/uL RBC Count 5.38 10*6/uL Hgb 15.9 g/dL Hct 46.5 % MCV 86.4 fL MCH 29.6 pg MCHC 34.2 g/dL Platelet Count 222 10*3/uL RDW 13.2 % Neutrophils 68.0 % Lymphocytes 17.7 % Monocytes 12.4 % Eosinophils 1.1 % Basophils 0.3 % Immature Granulocytes 0.5 % Neutrophils Absolute 8.00 10*3/uL Lymphocytes Absolute 2.08 10*3/uL Monocytes Absolute 1.46 10*3/uL Eosinophils Absolute 0.13 10*3/uL Basophils Absolute 0.04 10*3/uL Immature Granulocyte Absolute 0.06 10*3/uL Extra Blue Top Tube - Lab [[id number]] Collected: 08/19/20403 Updated: 08/19/204 Order Status: Completed Hold Blue Drawn UA (POCT-ED Use Only) [[id number]] Collected: 08/19/20402 Updated: 08/19/20405 Order Status: Completed Specimen Type: Urine Urine Color YELLOW Urine Appearance CLEAR Urine Specific [place] 1.020 Urine Glucose Qual NEGATIVE mg/dL Urine Bilirubin NEGATIVE Urine Ketone NEGATIVE mg/dL Urine Blood NEGATIVE Urine pH 7.0 [pH] Urine Protein -Dipstick NEGATIVE mg/dL Urine Urobilinogen 0.2 mg/dL Urine Nitrite NEGATIVE Urine Leukocyte Esterase NEGATIVE Urine Microscopic Not Indicated Urine Source [facility] INTERPRETATION: CT ABDOMEN PELVIS W IV CONT AND WO PO CONT Result Date: 08/19/2020 CT of the abdomen and pelvis with intravenous contrast performed on 08/19/2020 HISTORY: 2 weeks of LEFT lower quadrant abdominal pain which is intermittent, pain increases tonight and radiates to the back TECHNIQUE: Multiple contiguous axial CT images of the abdomen and pelvis were obtained after intravenous administration of 100 mL of Isovue 370 contrast. Oral contrast was not administered. Bone and soft tissue window algorithm images as well as coronal and sagittal reformat images were reviewed. This study was compared to a prior study performed on 04/27/2018. All exams performed by [facility] utilize one or more of the following dose optimization techniques: automated exposure control, adjustment of the mA and/or kV according to patient size and/or the use of iterative reconstruction techniques. Audits are completed at the protocol, device and patient level to ensure compliance. All protocols (per device) are periodically reviewed by a team of medical physicists, technologists and radio logists. FINDINGS: The liver, spleen, and adrenal glands are unremarkable with no evidence for masslesions. There is a calcification at the distal body of the pancreas. The pancreas is otherwise unremarkable. There is no CT evidence for gallstones. The LEFT kidney is congenitally absent. The RIGHTkidney shows a normal nephrogram with no evidence for a renal mass or hydronephrosis. There is no retroperitoneal lymphadenopathy. The appendix is well visualized and with no surrounding inflammation. There is diverticulosis involving the descending and sigmoid colon. There is haziness of the fat surrounding the sigmoid colon. No drainable fluid collections are identified. No acute osseous abnormalities are identified. There is levoscoliosis of the lumbar spine. Limited images of the lung basesare clear. Acute diverticulitis. PHOTOGRAPHS: ED COURSE: Procedures MDM 55-year-old gentleman arrives for evaluation of low abdominal pain. He is afebrile with otherwise stable vital signs. He was given a dose of Toradol. We will obtain imaging lab work to evaluate for possible diverticulitis versus further abnormality. CBC CMP are within acceptable limits, lipase is 22. Noted CMP is mildly bumped 1.2 Urine negative for obvious infection. CT imaging reviewed, this shows acute diverticulitis. On reassessment he does have improvement in symptoms, he is tolerating oral intake, he can be discharged on Augmentin with close follow-up precautions discussed. He was given script for pain medication to use p.r.n., antiemetic provided. He was encouraged to remain well hydrated, advance diet as tolerated recheck with PCP in 1-2 days, for tabs creatinine recheck. Return precautions are reviewed. He is stable for discharge at this time Electronically signed by: PHIL Young 08/19/2020 5:59 AM I have personally seen and examined this patient with the SARAH. I have fully participated in the care of this patient. I have reviewed all pertinent clinical information, including history, physical exam and plan. I agree with the above assessment and plan. Patient presents with low abdominal pain, his exam is fairly benign. CT scan does show diverticulitis without abscess or perforation. At this point we think he can be discharged on oral antibiotics with outpatient follow-up and strict return to ER precautions. Pain is well controlled The patients condition at the time of Disposition is Improved. Douglas Noland MD 08/19/20 0790 * Rhona Duffy RN - 08/19/2020 4:08 AM EST Pt to bed 22M via wheelchair w/ c/o RLQ & LLQ abd pain intermittently x2 weeks. Pt states that he noticed some burning w/ urination last PM. Pt also states that he has been having trouble having a BM for the last few days. * Rhea Shaikh RN - 08/19/2020 3:28 AM EST 2 weeks of LLQ abdominal intermittent, tonight pain increases with radiation to back. No N/V/D. Some burning upon urination. Born without L kidney documented in this encounter Plan of Treatment Not on file documented as of this encounter Goals Goal Patient Goal Type Associated Problems Recent Progress Patient-Stated? Author Blood Pressure < 140/90 Blood Pressure 160/96( 024 8:13 AM EDT) Kilo Mora MD documented as of this encounter Procedures Procedure Name Priority Date/Time Associated Diagnosis Comments CT ABDOMEN PELVIS W IV CONT AND WO PO CONT STAT 08/19/2020 5:00 AM EST EXTRA BLUE TOP TUBE STAT 08/19/2020 4 :04 AM EST CBC WITH DIFFERENTIAL - LAB STAT 08/19/2020 4:04 AM EST HC LIPASE SERUM STAT 08/19/2020 4:04 AM EST HC COMPREHENSIVE METABOLIC PANL STAT 08/19/2020 4:04 AM EST URINALYSIS POC STAT 08/19/2020 4:03 AM EST documented in this encounter Results * CT ABDOMEN PELVIS W IV CONT AND WO PO CONT (08/19/2020 5:00 AM EST) Anatomical Region Laterality Modality Abdomen Computed Tomogra phy 08/19/2020 4:52 AM EST Impressions 08/20/2020 3:18 AM EST Acute diverticulitis. Dictating Narrative 08/20/2020 3:[address] of the abdomen and pelvis with intravenous contrast performed on 08/19/2020 HISTORY: 2 weeks of LEFT lower quadrant abdominal pain which is intermittent, pain increases tonight and radiates to the back TECHNIQUE: Multiple contiguous axial CT images of the abdomen and pelvis were obtained after intravenous administration of 100 mL of Isovue 370 contrast. Oral contrast was not administered. Bone and soft tissue window algorithm images as well as coronal and sagittal reformat images were reviewed. This study was compared to a prior study performed on 04/27/2018. All exams performed by [facility] utilize one or more of the following dose optimization techniques: automated exposure control, adjustment of the mA and/or kV according to patient size and/or the use of iterative reconstruction techniques. ??Audits are completed at the protocol, device and patient level to ensure compliance. ??All protocols (per device) are periodically reviewed by a team of medical physicists, technologists and radiologists. FINDINGS: The liver, spleen, and adrenal glands are unremarkable with no evidence for mass lesions. There is a calcification at the distal body of the pancreas. The pancreas is otherwise unremarkable. There is no CT evidence for gallstones. The LEFT kidney is congenitally absent. The RIGHT kidney shows a normal nephrogram with no evidence for a renal mass or hydronephrosis. There is no retroperitoneal lymphadenopathy. The appendix is well visualized and with no surrounding inflammation. There is diverticulosis involving the descending and sigmoid colon. There is haziness of the fat surrounding the sigmoid colon. No drainable fluid collections are identified. No acute osseous abnormalities are identified. There is levoscoliosis of the lumbar spine. Limited images of the lung bases are clear. Procedure Note Jann Friend MD - 08/20/2020 CT of the abdomen and pelvis with intravenous contrast performed on08/19/2020 HISTORY: 2 weeks of LEFT lower quadrant abdominal pain which isintermittent, pain increases tonight and radiates to the back TECHNIQUE: Multiple contiguous axial CT images of the abdomen and pelvis wereobtained after intravenous administration of 100 mL of Isovue 370contrast. Oral contrast was not administered. Bone and soft tissue windowalgorithm images as well as coronal and sagittal reformat images werereviewed. This study was compared to a prior study performed on 04/27/2018. All exams performed by [facility] utilize one or more of the following doseoptimization techniques: automated exposure control, adjustment of the mAand/or kV according to patient size and/or the use of iterativereconstruction techniques. Audits are completed at the protocol, deviceand patient level to ensure compliance. All protocols (per device) areperiodically reviewed by a team of medical physicists, technologists andradiologists. FINDINGS: The liver, spleen, and adrenal glands are unremarkable with no evidencefor mass lesions. There is a calcification at the distal body of thepancreas. The pancreas is otherwise unremarkable. There is no CT evidencefor gallstones. The LEFT kidney is congenitally absent. The RIGHT kidney shows a normalnephrogram with no evidence for a renal mass or hydronephrosis. There isno retroperitoneal lymphadenopathy. The appendix is well visualized and with no surrounding inflammation.There is diverticulosis involving the descending and sigmoid colon. Thereis haziness of the fat surrounding the sigmoid colon. No drainable fluidcollections are identified. No acute osseous abnormalities are identified. There is levoscoliosis ofthe lumbar spine. Limited images of the lung bases are clear. IMPRESSION: Acute diverticulitis. Dictating Workstation: Varthana us Douglas Noland MD LG RIS CT ORDERABLES Fi nal Result * Extra Blue Top Tube - Lab (08/19/2020 4:04 AM EST) Hold Blue Drawn [facility] 08/19/2020 4:04 AM EST 08/19/2020 4:09 AM EST us Douglas Noland MD HEMATOLOGY ORDERABLES F inal Result [facility] [address] [place] [address] * Lipase, Serum (08/19/2020 4:04 AM EST) [facility] Lipase 22 11 - 82 U/L 08/19/2020 4:37 AM EST [facility] 08/19/2020 4:04 AM EST 08/19/2020 4:11 AM EST us Douglas Noland MD CHEMISTRY ORDERABLES Fi nal Result [facility] [address] [place] [id number] * (ABNORMAL) Comprehensive Metabolic Panel (CMP) (08/19/2020 4:04 AM EST) Pathologist [facility] Glucose (serum) 109(H) 65 - 100 mg/dL 08/19/2020 4:37 AM EST [facility] Blood Urea Nitrogen 12 8 - 22 mg/dL 08/19/2020 4:37 AM [facility] Sodium 139 135 - 145 mmol/L 08/19/2020 4:37 AM [facility] Potassium 4.1 3.4 - 5.3 mmol/L 08/19/2020 4:37 AM [facility] Chloride 101 98 - 107 mmol/L 08/19/2020 4:37 AM [facility] CO2 Venous 30.5 21.0 - 31.0 mmol/L 08/19/2020 4:37 AM [facility] Anion Gap 8 5 - 15 mmol/L 08/19/2020 4:37 AM [facility] Creatinine 1.2 0.7 - 1.2 mg/dL 08/19/2020 4:37 AM [facility] BUN/Creatinine Ratio 10 10 - 20 Ratio 08/19/2020 4:37 AM [facility] Calcium 9.2 8.6 - 10.3 mg/dL 08/19/2020 4:37 AM [facility] Protein Total Serum 6.8 5.6 - 7.9 g/dL 08/19/2020 4:37 AM [facility] Albumin 4.2 3.5 - 4.9 g/dL 08/19/2020 4:37 AM [facility] Comment:Result reflects use of Bromocresol Green Methodology. Bilirubin Total 1.0 0.2 - 1.2 mg/dL 08/19/2020 4:37 AM [facility] Alkaline Phosphatase 68 34 - 104 U/L 08/19/2020 4:37 AM [facility] AST (SGOT) 15 13 - 40 U/L 08/19/2020 4:37 AM [facility] ALT (SGPT) 19 7 - 52 U/L 08/19/2020 4:37 AM [facility] A/G Ratio 1.6 1.0 - 2.0 Ratio 08/19/2020 4:37 AM [facility] Globulin 2.6 gm/dL 08/19/2020 4:37 AM [facility] GFR >60 mL/min/1.7 3 sqm 08/19/2020 4:37 AM [facility] Comment: Notes for GFR: 1. ??Multiply result by 1.21 if patient is black/ ?[place]. 2. ??Chronic kidney disease: <60 mL/min/1.73 sq.m. ?Renal Failure: <15 mL/min/1.73 sq.m. Calcium, Corrected(Adj/Ca lc)Total 9.0 mg/dL 08/19/2020 4:37 AM EST [facility] 08/19/2020 4:04 AM EST 08/19/2020 4:11 AM EST us Douglas Noland MD CHEMISTRY ORDERABLES Fi nal Result [facility] [address] [address] * (ABNORMAL) CBC with Differential (08/19/2020 4:04 AM EST) WBC Count 11.8(H) 4.8 - 10.8 10*3/uL 08/19/2020 4:14 AM [facility] RBC Count 5.38 4.60 - 6.20 10*6/uL 08/19/2020 4:14 AM [facility] Hgb 15.9 14.0 - 18.0 g/dL 08/19/2020 4:14 AM [facility] Hct 46.5 42.0 - 52.0 % 08/19/2020 4:14 AM [facility] MCV 86.4 80.0 - 100.0 fL 08/19/2020 4:14 AM [facility] MCH 29.6 27.0 - 33.0 pg 08/19/2020 4:14 AM [facility] MCHC 34.2 32.0 - 36.0 g/dL 08/19/2020 4:14 AM [facility] Platelet Count 222 150 - 450 10*3/uL 08/19/2020 4:14 AM [facility] RDW 13.2 12.2 - 14.6 % 08/19/2020 4:14 AM [facility] Neutrophils 68.0 45.0 - 75.0 % 08/19/2020 4:14 AM [facility] Lymphocytes 17.7(L) 19.0 - 46.0 % 08/19/2020 4:14 AM [facility] Monocytes 12.4(H) 2.0 - 12.0 % 08/19/2020 4:14 AM [facility] Eosinophils 1.1 0.0 - 4.0 % 08/19/2020 4:14 AM [facility] Basophils 0.3 0.0 - 1.5 % 08/19/2020 4:14 AM [facility] Immature Granulocytes 0.5 0 - 2 % 08/19/2020 4:14 AM [facility] Neutrophils Absolute 8.00 2.20 - 8.00 10*3/uL 08/19/2020 4:14 AM [facility] Lymphocytes Absolute 2.08 0.90 - 5.00 10*3/uL 08/19/2020 4:14 AM [facility] Monocytes Absolute 1.46(H) 0.20 - 0.80 10*3/uL 08/19/2020 4:14 AM [facility] Eosinophils Absolute 0.13 0.00 - 0.40 10*3/uL 08/19/2020 4:14 AM [facility] Basophils Absolute 0.04 0.00 - 0.40 10*3/uL 08/19/2020 4:14 AM [facility] Immature Granulocyte Absolute 0.06 0.00 - 0.22 10*3/uL 08/19/2020 4:14 AM [facility] 08/19/2020 4:04 AM EST 08/19/2020 4:10 AM EST us Douglas Noland MD HEMATOLOGY ORDERABLES F inal Result [facility] [address] [id number] * UA (POCT-ED Use Only) (08/19/2020 4:03 AM EST) Urine Color YELLOW YELLOW 08/19/2020 4:12 AM EST [facility] Urine Appearance CLEAR Clear 08/19/2020 4:12 AM [facility] Urine Specific [place] 1.020 1.005 - 1.030 08/19/2020 4:12 AM [facility] Urine Glucose Qual NEGATIVE Negative mg/dL 08/19/2020 4:12 AM [facility] Urine Bilirubin NEGATIVE Negative 4:12 AM [facility] Urine Ketone NEGATIVE Negative mg/dL 08/19/2020 4:12 AM [facility] Urine Blood NEGATIVE Negative 08/19/2020 4:12 AM [facility] Urine pH 7.0 5.0 - 8.0 [pH] 08/19/2020 4:12 AM [facility] Urine Protein -Dipstick NEGATIVE Negative mg/dL 08/19/2020 4:12 AM [facility] Urine Urobilinogen 0.2 0.2 - 1.0 mg/dL 08/19/2020 4:12 AM [facility] Urine Nitrite NEGATIVE Negative 08/19/2020 4:12 AM [facility] Urine Leukocyte Esterase NEGATIVE Negative 08/19/2020 4:12 AM [facility] Urine Microscopic Not Indicated Not Indicated 08/19/2020 4:12 AM [facility] Urine Source MIDSTREAM 08/19/2020 4:12 AM [facility] Urine specimen (specimen) 08/19/2020 4:03 AM EST 08/19/2020 4:12 AM EST Douglas Noland MD URINE ORDERABLES Final Result Performing Organization Address City/State/[facility] Co de Phone Number [facility] [address] [place] [address] documented in this encounter Visit Diagnoses Diagnosis Diverticulitis- Primary Diverticulitis of colon (without mention of hemorrhage) documented in this encounter Administered Medications Inactive Administered Medications - up to 3 most recent administrations Medication Order MAR Action Action Date Dose Rate Site amoxicillin-clavulanate (AUGMENTIN) 875-125 MG per tablet 1 tablet 1 tablet, Oral, ONCE, On Tue08/19/20 at 0600, For 1 dose, Take with food to decrease incidence of diarrheaIndications:Int ra-Abdominal Infection Given 08/19/2020 5:51 AM EST 1 tablet iopamidol (ISOVUE 370) 76 % VESICANT 100 mL 100 mL, Intravenous, IMG ONCE PRN, Other, Starting on Tue08/19/20 at 0450, For 1 dose, Monitor site closely as product is a VESICANT. Given 08/19/2020 4:50 AM EST 100 mLs right antecubital ketorolac (TORADOL) injection 15 mg 15 mg, Intravenous, ONCE, On Tue08/19/20 at 0430, For 1 dose Given 08/19/2020 4:27 AM EST 15 mg right antecubital documented in this encounter Active and Recently Administered Medications Times are shown in EST. Scheduled Medication Order 08/17/2020 08/18/2020 08/19/2020 amoxicillin-clavulanate (AUGMENTIN) 875-125 MG per tablet 1 tablet (COMPLETED) 1 tablet, Oral, ONCE, On Tue08/19/20 at 0600, For 1 dose, Take with food to decrease incidence of diarrhea 0551 (Given - Provid er: Natalie Raman RN) ketorolac (TORADOL) injection 15 mg (COMPLETED) 15 mg, Intravenous, ONCE, On Tue08/19/20 at 0430, For 1 dose 0427 (Given - Provid er: Edu Isaac RN) PRN Medication Order 08/17/2020 08/18/2020 08/19/2020 iopamidol (ISOVUE 370) 76 % VESICANT 100 mL (COMPLETED) 100 mL, Intravenous, IMG ONCE PRN, Other, Starting on Tue08/19/20 at 0450, For 1 dose, Monitor site closely as product is a VESICANT. 0450 (Given - Provid er: PRESLEY Liriano) documented in this encounter Care Teams Safety Administrator Relationship Specialty Start Date End Date Dasha Sheppard PA-C [address] [place] [address] [address] [address] PCP - General Family Practice 04/12/18 07/10/23 Kilo Wang MD Consulting Physician Neurology 08/30/16 12/01/21 Juan Haddad MD [address] [address] Otolaryngology 09/23/17 documented as of this encounter
--- OUTSIDE RECORDS SUMMARY | 2024-06-24 04:36 | XMS_ITS | Encounter Summary ---
Author Organization [facility] [address] [address] Care Team Providers Care Edging Machine Setter Name Role Phone Kilo Wang MD Unavailable [phone] Juan Haddad MD Unavailable [phone] Dasha Sheppard PA-C Primary Care Provider Reason for Visit * Reason Onset Date Comments Covid-19 Screening And Care Coordination 021 Encounter Details Date Type Department Care Team (Late st Contact Info) Description 03/04/2021 5:10 PM EDT Office Visit [facility] [place] [address] [place] [address] Andrew Friend MD [address] [place] [address] Encounter for screening laboratory testing for COVID-19 virus in asymptomatic patient (Primary Dx) Discharge Disposition: Home/Self Care Social [...] and Family Not on file 09/30/2020 Attends [employer] Not on file 09/30 Active Member [...] Taken Comments Blood Pressure - - Pulse 98 03/04/2021 5:18 PM EDT Temperature 36.8 ??C (98.2 ??F) 03/04/2021 5:18 PM ED T Respiratory Rate - - Oxygen Saturation 97% 03/04/2021 5:18 PM EDT Inhaled Oxygen Concentration - - Weight - - Height - - Body Mass Index - - documented in this encounter Patient Instructions * Patient Instructions* Andrew Friend MD - 03/04/2021 5:21 PM EDT COVID-19 Viral Test: About This Test What is it? A COVID-19 viral test is a way to find out if you have COVID-19. The test looks for the virus in your breathing passages. There are different types of viral tests. One type looks for genetic material from the virus. This is usually called polymerase chain reaction (PCR). Another type looks for proteins on the virus. This is usually called an antigen test. It may not aria accurate as PCR. Some test results come back in a few minutes. Others may take a few days. Why is it done? This test is used to diagnose a current infection with SARS-CoV-2, the virus that causes COVID-19. Knowing that you have the virus means that you can take steps to protect others from getting infected. This can help limit the spread of the virus. Knowing who has COVID-19 is also important for experts who track the virus. How do you prepare for the test? You don't need to do anything to prepare for this test. But be sure to follow any instructions yourhealth care provider gives you. How is it done? The test is most often done on a sample from your nose or throat. It's sometimes done on a sample of saliva. One way a sample is collected is by putting a long swab into the back of your nose. Samples can be tested in different ways to look for an infection. What should you do while you wait for your test results? If you are being tested because you've been exposed to COVID-19 or have been sick from COVID-19, you will want to know what to do while you wait for your test results. While you wait for the results of your COVID-19 test, stay in the place where you live, and stay away from others. Do this even if you don't feel sick or have any symptoms. Don't leave unless you need medical care. If you can, try to stay in a separate room. This might help you avoid infecting family members or other people you live with. Follow your doctor's instructions about what to do when you get your results back. Be sure to wear a mask and follow social-distancing guidelines after you get your results, even if the test is negative. If you are fully vaccinated, you may not need to follow these instructions. Ask your doctor if you have questions. What do your results mean? The result is either positive or negative. A positive result means that the antigen or the genetic material of the virus was found in your sample. You have COVID-19 now. A negative result means that the antigen or the genetic material was not found. This may mean that you don't have COVID-19. But it's possible to get a false-negative result. This means that the test shows that you don't have COVID-19 when in fact you do. This may happen because you were tested too soon after you were infected, before the virus started to spread in your nose and throat. Or it could happen because the swab missed the infection. If you get a negative result for an antigen test, your doctor may recommend that you get another test, such as polymerase chain reaction (PCR), to make sure you don't have the virus. In general, PCR is more accurate than an antigen test. Some test results come back in a few minutes. Others may take a few days. If your test is negative, follow your doctor's advice for when you can go back to activities. If your test is positive, talk to your doctor or a public health official about what you need to do. Where can you learn more? Go to [email or web address]/[email or web address] Enter A129 in the search box to learn more about COVID-19 Viral Test: About This Test. Current as of: September 12, 2020?Content Version: 13.0 ?? [employer]. Care instructions adapted under license by your healthcare professional. If you have questions about a medical condition or this instruction, always ask your healthcare professional. [employer] disclaims any warranty or liability for your use of this information. documented in this encounter Progress Notes * Andrew Friend MD - 03/04/2021 5:13 PM EDT Patient presents for asymptomatic COVID testing for travel. Exposure: No Is the patient wearing a mask? Yes PPE worn by rooming staff: mask, gloves, goggle/face shield Rooming staff spent: < 15 mins minutes with the patient. Physical Exam: GEN: no acute distress, not anxious appearing, speaking comfortably HEENT: normocephalic, conjunctiva clear, lips not swollen, not cyanotic, no visible neck masses RESP: good inspiratory effort, no use of accessory muscles, no increased work of breathing SKIN: No rash on exposed areas NEURO: Alert and oriented x 3, interactive PSYCH: Pleasant, normal affect PPE worn by Provider: PPE WORN BY PROVIDER: mask, gloves, goggles/face shield and gown Provider spent < 15 minutes with the patient. Additional staff/PPE comments: Asymptomatic COVID-19 testing. documented in this encounter Plan of Treatment Scheduled Orders Name Type Priority Associated Diagnoses Orde r Schedule COVID TEST-SELF PAY Procedures Routine Encounter for screening laboratory testing for COVID-19 virus in asymptomatic patient Ordered: 03/04/2021 documented as of this encounter Goals Goal Patient Goal Type Associated Problems Recent Progress Patient-Stated? Author Blood Pressure < 140/90 Blood Pressure 160/96( 024 8:13 AM EDT) No Kilo Wang MD documented as of this encounter Procedures Procedure Name Priority Date/Time Associated Diagnosis Comments ASYMPTOMATIC COVID PCR LAB ORDER Routine 03/04/2021 6:35 PM EDT Encounter for screening laboratory testing for COVID-19 virus in asymptomatic patient documented in this encounter Results * ASYMPTOMATIC COVID PCR LAB ORDER (03/04/2021 6:35 PM EDT) SARS CoV-2 PCR Negative Not Detected [facility] [employer] LABORATORY TEST LOT# [id number] [facility] Specimen from nose (specimen) 03/04/2021 6:35 PM EDT us Andrew Friend MD IMMUNOLOGY ORDERABLES Final Resu lt [facility] [address] [facility] [address] [place] [phone] documented in this encounter Visit Diagnoses Diagnosis Encounter for screening laboratory testing for COVID-19 virus in asymptomatic patient- Primary documented in this encounter Care Teams Edging Machine Setter Relationship Specialty Start Date End Date Dasha Sheppard PA-C [address] [address] PCP - General Family Practice 04/12/18 07/10/23 Kilo Wang MD Consulting Physician Neurology 08/30/16 12/01/21 Juan Haddad MD [address] [address] Otolaryngology 09/23/17 documented as of this encounter
--- OUTSIDE RECORDS SUMMARY | 2024-06-24 04:36 | XMS_ITS | Encounter Summary ---
Author Organization [facility] alth Address [address] [facility] [place] [place] [address] Care Team Providers Care Power Tool Repair Technician Name Role Phone Kilo Wang MD Unavailable [phone] Juan Haddad MD Unavailable [phone] Dasha Sheppard PA-C Primary Care Provider Reason for Visit * Reason Comments Diverticulitis * New Consult/Second Opinion (Routine) - Closed Specialty Diagnoses / Procedures Referred By Contcarlie t Referred To Contact Gastroenterology Diagnoses Diverticulitis Bloating Dasha Sheppard, PAGorgeC [address] [facility] [address] [place] [address] Phone: tel: fax: [facility] [address] [facility] [place] [address] Phone: tel: fax: Referral ID Status Reason Start Date Expiration Date V isits Requested Visits Authorized [id number] Closed Co-managemen t Until Stable 11/04/2020 11/04/2021 1 1 Encounter Details Date Type Department Care Team (Late st Contact Info) Description 12/25/2020 2:00 PM EDT Office Visit [facility] [address] [facility] [address] [place] [phone] Lisette Russell CRNP [address] [place] [address] Diverticulitis large intestine w/o perforation or abscess w/o bleeding (Primary Dx) Discharge Disposition: Home/Self Care Social [...] , or living with a partner? 09/30/2020 PRAPARE - Transportation Answer Date Re corded [...] Sign Reading Time Taken Comments Blood Pressure 140/90 12/25/2020 1:49 PM EDT Pulse 85 12/25/2020 1:49 PM EDT Temperature - - Respiratory Rate - - Oxygen Saturation 100% 12/25/2020 1:49 PM EDT Inhaled Oxygen Concentration - - Weight 104 kg (229 lb 6.4 oz) 12/25/2020 1:49 PM EDT Height 182.9 cm (6') 12/25/2020 1:49 PM EDT Body Mass Index 31.11 12/25/2020 1:49 PM EDT documented in this encounter Patient Instructions * Patient Instructions* Angelica Dickinson - 12/25/2020 2:40 PM EDT Images from the original note were not included. - Can try probiotics such as Align or Flossonic Health (can be bought [id number]). - High-fiber diet indefinitely (except during a bout of diverticulitis). Provide handout. Recommendtaking an over the counter fiber supplement everyday, such as Metamucil or Benefiber. - Return in 4-8 weeks for follow-up, but call or message our office sooner with any questions or concerns. If symptoms have resolved, feel free to cancel the follow-up appointment. High-Fiber Diet: Care Instructions Your Care Instructions A high-fiber diet may help you relieve constipation and feel less bloated. Your doctor and dietitian will help you make a high-fiber eating plan based on your personal needs.The plan will include the things you like to eat. It will also make sure that you get 30 grams of fiber a day. Before you make changes to the way you eat, be sure to talk with your doctor or dietitian. Follow-up care is a zelaya part of your treatment and safety. Be sure to make and go to all appointments, and call your doctor if you are having problems. It's also a good idea to know your test resultsand keep a list of the medicines you take. How can you care for yourself at home? ?? You can increase how much fiber you get if you eat more of certain foods. These foods include: ? Whole-grain breads and cereals. ? Fruits, such as pears, apples, and peaches. Eat the skins, peels, and seeds, if you can. ? Vegetables, such as broccoli, cabbage, spinach, carrots, asparagus, and squash. ? Starchy vegetables. These include potatoes with skins, kidney beans, and whaley beans. ?? Take a fiber supplement every day if your doctor recommends it. Examples are Benefiber, Citrucel, FiberCon, and Metamucil. Ask your doctor how much to take. ?? Drink plenty of fluids. If you have kidney, heart, or liver disease and have to limit fluids, talk with your doctor before you increase the amount of fluids you drink. ?? Get some exercise every day. Exercise helps stool move through the colon. It also helps prevent constipation. ?? Keep a food diary. Try to notice and write down what foods cause gas, pain, or other symptoms. Then you can avoid these foods. Where can you learn more? Go to https://www.[employer] Enter U654 in the search box to learn more about High-Fiber Diet: Care Instructions. Current as of: June 05, 2020?Content Version: 12.9 ?? [employer]. Care instructions adapted under license by your healthcare professional. If you have questions about a medical condition or this instruction, always ask your healthcare professional. [employer] disclaims any warranty or liability for your use of this information. documented in this encounter Progress Notes * Angelica Dickinson - 12/25/2020 2:41 PM EDT Robert Alexis Jr. discharged by: Angelica Dickinson. * Levar Fleming - 12/25/2020 1:52 PM EDT Robert Alexis Jr. roomed by: Levar Fleming. Dasha Sheppard PA-C Patient DOES NOT request a fire captain during any office visit exams that will be performed. * Lisette Russell CRNP - 12/25/2020 6:08 AM EDT Subjective: Robert Alexis Jr. is a 55 y.o. male who presents today due to a recent history of uncomplicated sigmoid and distal descending colon diverticulitis. He was initially treated with a 10-day course of Augmentin after he had presented to [facility] ER on 08/19/20 with lower abdominal pain. A CT A/P at that time had demonstrated uncomplicated sigmoid diverticulitis. Given that his symptoms have persisted, he had a repeat CT A/P on 08/29/20, which had demonstrated the sigmoid and distal descending colon diverticulitis. He was then started on a 7-day course of Cipro and Flagyl. The pain has significantly improved since then, although he still has c/o an intermittent dull LEFT-sided abdominal discomfort. In addition, his stools are now soft , but not watery. No fever, chills, upper GI symptoms, constipation, hematochezia, melena, or unintentional weight loss. The patient had a fairly recent colonoscopy in June 2019, which had revealed moderate diverticulosis in the sigmoid colon, descending colon, and in the transverse colon, with evidence of an impacted diverticulum. He also had three polyps removed, some of which were sessile serrated polyps measuring between 1- 12 mm. Therefore, another colonoscopy was recommended in 3 years. Past Medical History: Diagnosis Date ??? Adenoma of left adrenal gland ??? Asthma ??? Lyme disease Past Surgical History: Procedure Laterality Date ??? ENDOSCOPY, ESOPHAGUS 04/22/2016 ??? HX CARPAL TUNNEL RELEASE Right 03/02/2018 Procedure: DECOMPRESSION NERVE MEDIAN CARPAL TUNNEL RELEASE: Carpal Tunnel Release; Surgeon: Devante Portillo DO; Location: [facility] OR; Laterality: Right; ??? HX CARPAL TUNNEL RELEASE Left 03/23/2018 Procedure: DECOMPRESSION NERVE MEDIAN CARPAL TUNNEL RELEASE: Carpal Tunnel Release; Surgeon: Devante Portillo DO; Location: [facility] OR; Laterality: Left; ??? HX COLONOSCOPY 04/22/2016 ??? HX CYST REMOVAL approx 2016 beneath eye-done at MD office w/ local anesthesia ??? HX DECOMPRESSION NERVE CUBITAL TUNNEL RELEASE Left 03/23/2018 Procedure: DECOMPRESSION NERVE CUBITAL TUNNEL RELEASE: Cubital Tunnel Release; Surgeon: Devante Portillo DO; Location: [facility] OR; Laterality: Left; Review of Systems Constitutional: Negative for chills, fever and weight loss. Gastrointestinal: Positive for abdominal pain. Negative for blood in stool, constipation, diarrhea,heartburn, melena, nausea and vomiting. Objective: Vitals: Visit Vitals BP (!) 140/90 Pulse 85 Ht 1.829 m (6') Wt 104 kg (229 lb 6.4 oz) SpO2 100% BMI 31.11 kg/m?? Physical Exam Constitutional: No distress. Abdominal: Soft. Bowel sounds are normal. He exhibits no distension and no mass. There is no abdominal tenderness. Diagnostic Data: Lab Results Component Value Date/Time GLUCOSE 109 (H) 08/19/2020 04:04 AM GLUCOSFAST 97 04/20/2018 06:49 AM SODIUM 139 08/19/2020 04:04 AM POTASSIUM 4.1 08/19/2020 04:04 AM CHLORIDE 101 08/19/2020 04:04 AM BUN 12 08/19/2020 04:04 AM CREATININE 1.2 08/19/2020 04:04 AM CALCIUM 9.2 08/19/2020 04:04 AM GFR >60 08/19/2020 04:04 AM Lab Results Component Value Date/Time PROTOTAL 6.8 08/19/2020 04:04 AM ALBUMIN 4.2 08/19/2020 04:04 AM BILITOTAL 1.0 08/19/2020 04:04 AM AP 68 08/19/2020 04:04 AM ASTSGOT 15 08/19/2020 04:04 AM ALTSGPT 19 08/19/2020 04:04 AM GAMMAGT 13 02/02/2019 10:23 AM Lab Results Component Value Date/Time WBC 11.8 (H) 08/19/2020 04:04 AM HGB 15.9 08/19/2020 04:04 AM HCT 46.5 08/19/2020 04:04 AM PLATELETCT 222 08/19/2020 04:04 AM Impression/Plan: Impression: 55 year old male with: Diverticulitis large intestine w/o perforation or abscess w/o bleeding (primary encounter diagnosis) - 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 - Another colonoscopy is not recommended at this time, as the patient had a recent colonoscopy in June 2019. - If the diverticulitis continues to reoccur, then the patient would benefit from a referral to Surgery to discuss a possible elective partial colectomy. The plan is as follows: Plan: - Can try probiotics such as Align or Flossonic Health (can be bought [id number]). Samples have been provided today. - High-fiber diet indefinitely (except during a bout of diverticulitis). Provide handout. Recommendalso taking an over the counter fiber supplement everyday, such as Metamucil or Benefiber. - Return in 4-8 weeks for follow-up, but call or message our office sooner with any questions or concerns. If symptoms have resolved, feel free to cancel the follow-up appointment. documented in this encounter Plan of Treatment Not on file documented as of this encounter Goals Goal Patient Goal Type Associated Problems Recent Progress Patient-Stated? Author Blood Pressure < 140/90 Blood Pressure 160/96( 024 8:13 AM EDT) No Kilo Wang MD documented as of this encounter Visit Diagnoses Diagnosis Diverticulitis large intestine w/o perforation or abscess w/o bleeding- Primary Diverticulitis of colon (without mention of hemorrhage) documented in this encounter Care Teams Power Tool Repair Technician Relationship Specialty Start Date End Date Dasha Sheppard PA-C [address] [address] PCP - General Family Practice 04/12/18 07/10/23 Kilo Wang MD Consulting Physician Neurology 08/30/16 12/01/21 Juan Haddad MD [address] [place] [address] Otolaryngology 09/23/17 documented as of this encounter
--- OUTSIDE RECORDS SUMMARY | 2024-06-24 04:36 | XMS_ITS | Encounter Summary ---
Author Organization [facility] alth Address [address] [facility] [place] [address] Care Team Providers Care Harvesting Manager Name Role Phone Kilo Wang MD Unavailable [phone] Juan Haddad MD Unavailable Dasha Sheppard PA-C Primary Care Provider Reason for Visit * Reason Onset Date Comments Cough 04/07/2021 LM 04/08 Encounter Details Date Type Department Care Team (Late st Contact Info) Description 04/07/2021 Nurse Triage [facility] Line [address] [facility], [address] [place] [id number] Dasha Sheppard, PASeverino [address] [facility] [place] [address] Cough (LM 04/08) Social History Tobacco Use Types Packs/Day Years [...] and Family Not on file 09/30/2020 Attends Rastaf[employer] Services Not on file 09/30 Active Member [...] encounter Miscellaneous Notes * Telephone Encounter - Margret Dunn RN - 04/08/2021 9:13 AM EDT Ov given with [facility] 04/09 -pt started with his covid sx 03/26 so 04/09 will be his 14 day rodger of quarantine-ok for in office visit? Pt said still with cough and gets winded * Telephone Encounter - Sabiha Michelle CMA - 04/08/2021 8:11 AM EDT Called patient. No answer. Left message on machine. * Telephone Encounter - Dasha Sheppard PA-C - 04/07/2021 3:19 PM EDT Ok for same day tomorrow * Telephone Encounter - Criss Alex LPN - 04/07/2021 3:01 PM EDT Pt calls about some cough and phlegm. Thinks he may have a flutter in his chest. No sob or sweat, no nausea. bp 120's, no over 130. This comes and goes the fluttering in his chest. I suggested er. Ok ofr sameday tomorrow? I told him if sxs change call 911. documented in this encounter Plan of Treatment Not on file documented as of this encounter Goals Goal Patient Goal Type Associated Problems Recent Progress Patient-Stated? Author Blood Pressure < 140/90 Blood Pressure 160/96( 024 8:13 AM EDT) No Kilo Wang MD documented as of this encounter Visit Diagnoses Not on filedocumented in this encounter Additional Health Concerns Infection Onset Date Last Indicated Resolved Time COVID-19 03/27/2021 03/27/2021 04/17/2021 8:34 PM EDT documented as of this encounter Care Teams Harvesting Manager Relationship Specialty Start Date End Date Dasah Sheppard PA-C [address] [place] [address] PCP - General Family Practice 04/12/18 07/10/23 Kilo Wang MD Consulting Physician Neurology 08/30/16 12/01/21 Juan Haddad MD [address] [place] [address] Otolaryngology 09/23/17 documented as of this encounter
--- OUTSIDE RECORDS SUMMARY | 2024-06-24 04:36 | XMS_ITS | Encounter Summary ---
Author Organization [facility] alth Address [address] [facility] [place] [address] Care Team Providers Care Er Manager Name Role Phone Kilo Wang MD Unavailable [phone] Juan Haddad MD Unavailable [phone] Dasha Sheppard PA-C Primary Care Provider Reason for Visit * Test/Procedure/Other (Routine) - Closed Specialty Diagnoses / Procedures Referred By Contac t Referred To Contact Radiology Diagnoses Dyspnea, unspecified type Procedures XR CHEST PA AND LATERAL Dasha Sheppard, PAGorgeC [address] [facility] [place] [address] Phone: tel: fax: Referral ID Status Reason Start Date Expiration Date Visits Re quested Visits Authorized [id number] Closed 03/04/2021 03/04/2022 1 1 Encounter Details Date Type Department Care Team (Latest Contact Info) Description 03/04/2021 4:45 PM EDT Ancillary Procedure [address] [place] [phone] Dyspnea, unspecified type Discharge Disposition: Home/Self Care Social History Tobacco [...] and Family Not on file 09/30/2020 Attends Scientologist Services Not on file 09/30 Active Member [...] Priority Date/Time Associated Diagnosis Comments XR CHEST PA AND LATERAL Routine 03/04/2021 4:56 PM EDT Dyspnea, unspecified type documented in this encounter Results * XR CHEST PA AND LATERAL (03/04/2021 4:56 PM EDT) Anatomical Region Laterality Modality Chest Computed Radiogr aphy 03/04/2021 4:51 PM EDT Impressions 03/04/2021 4:59 PM EDT No radiographic evidence for acute cardiopulmonary abnormality. Specifically, no radiographic evidence for recent aspiration event. Dictating Workstation: [employer] Narrative 03/04/2021 4:59 PM EDT HISTORY: Chest tightness, possible aspiration if unites ago. TECHNIQUE: PA and lateral radiographs of the chest. COMPARISON: CT chest 12/18/2019, chest radiographs 05/08/2016 FINDINGS: MEDIASTINUM: Normal heart size. ??Normal mediastinal contours. LUNGS: No focal pulmonary opacity. No pneumothorax. No pleural effusion. Pulmonary vessels are normally distributed. Eventration of the RIGHT hemidiaphragm. UPPER ABDOMEN: The included portions of the upper abdomen are unremarkable. OSSEOUS STRUCTURES: No acute osseous abnormality. Mild thoracic spine degenerative changes and lower thoracic dextrocurvature. Procedure Note Chato Shaw MD - 03/04/2021 HISTORY: Chest tightness, possible aspiration if unites ago. TECHNIQUE: PA and lateral radiographs of the chest. COMPARISON: CT chest 12/18/2019, chest radiographs 05/08/2016 FINDINGS: MEDIASTINUM: Normal heart size. Normal mediastinal contours. LUNGS: No focal pulmonary opacity. No pneumothorax. No pleural effusion.Pulmonary vessels are normally distributed. Eventration of the RIGHThemidiaphragm. UPPER ABDOMEN: The included portions of the upper abdomen areunremarkable. OSSEOUS STRUCTURES: No acute osseous abnormality. Mild thoracic spinedegenerative changes and lower thoracic dextrocurvature. IMPRESSION: No radiographic evidence for acute cardiopulmonary abnormality.Specifically, no radiographic evidence for recent aspiration event. Dictating Workstation: [employer] us Dasha Sheppard PA-C [facility] DIAG IMAGING ORD ERABLES Final Result documented in this encounter Visit Diagnoses Diagnosis Dyspnea, unspecified type documented in this encounter Care Teams Er Manager Relationship Specialty Start Date End Date Dasha Sheppard PA-C [address] [place] [address] [address] PCP - General Family Practice 04/12/18 07/10/23 Kilo Wang MD Consulting Physician Neurology 08/30/16 12/01/21 Juan Haddad MD [address] [place] [address] [address] Otolaryngology 09/23/17 documented as of this encounter
--- OUTSIDE RECORDS SUMMARY | 2024-06-24 04:36 | XMS_ITS | Encounter Summary ---
Author Organization [facility] alth Address [address] [place] [address] Care Team Providers Care Ampoule Inspector Name Role Phone Kilo Wang MD Unavailable Juan Haddad MD Unavailable [phone] Dasha SheppardC Primary Care Provider Encounter Details Date Type Department Care Team (Latest Contact Info) Description 06/07/2020 2:03 PM EST - 06/07/2020 11:59 PM EST Hospital Encounter [facility] [address] [place] [address] Shortness of breath Discharge Disposition: Home/Self Care Social History Tobacco [...] by mouth daily. 90 tablet 3 06/04/2020 04/21/2021 atorvastatin (LIPITOR) 20 MG tablet Take 1 tablet by mouth daily. 90 tablet 3 03/25/2020 09/30/2020 documented as of this encounter Plan of [...] Infection Onset Date Last Indicated Resolved Time Symptomatic COVID PUI 06/07/2020 06/07/20202019 5:59 AM EST Asymptomatic COVID PUI 06/07/2020 06/07/202006/10 5:59 AM EST documented as of this encounter Care Teams Ampoule Inspector Relationship Specialty Start Date End Date Dasha Sheppard PA-C [address] [place] [address] PCP - General Family Practice 04/12/18 07/10/23 Kilo Wang MD Consulting Physician Neurology 08/30/16 12/01/21 Juan Haddad MD [address] [place] [address] Otolaryngology 09/23/17 documented as of this encounter
--- OUTSIDE RECORDS SUMMARY | 2024-06-24 04:36 | XMS_ITS | Encounter Summary ---
Author Organization [facility] alth Address [address] [place] [address] Care Team Providers Care Fitting Room Associate Name Role Phone Kilo Wang MD Unavailable [phone] Juan Haddad MD Unavailable Dasha Sheppard PAGorgeC Primary Care Provider Reason for Visit * Reason Comments Recheck Encounter Details Date Type Department Care Team (Late st Contact Info) Description 07/04/2020 11:00 AM EST Office Visit Cardiothoracic Surgery [address] [phone] Guerita Elliott PASeverino [address] [facility] [address] [place] [address] Thoracic aortic aneurysm without rupture (CMS/HCC) (Primary [...] Sign Reading Time Taken Comments Blood Pressure 130/88 07/04/2020 1:04 PM EST Pulse 78 07/04/2020 1:04 PM EST Temperature - - Respiratory Rate - - Oxygen Saturation - - Inhaled Oxygen Concentration - - Weight - - Height - - Body Mass Index - - documented in this encounter Progress Notes * Guerita Elliott PA-C - 07/03/2020 2:33 PM EST Images from the original note were not included. Robert Alexis Jr. Is a 55 y/o male with past medical history hypertension, hyperlipidemia, asthma,Lyme disease, chewing tobacco use, and adenoma of the L adrenal glad who is here for a 6 month follow up of a known thoracic aortic aneurysm. He was last seen by Dr. Jennings on 04/02/20. Decision atthat visit was for a 6 month follow-up due to a newly diagnosed thoracic aortic aneurysm. 04/02/19, appointment with Dr. Trey Jennings: CTA chest 12/18/19 showed Sinus of Valsalva: 50.2mm maximally, ascending aorta 34mm maximallly. Aortic size index is 2.17. Transthoracic echocardiogram 11/22/19 showed an EF of 60-65%, no RWMA, no MS/MR, functionally tricuspid AV, no /AI, and no TR. Today he has no complaints. He continues to chew tobacco and has for many years. He understands he should quit but currently does not have the intention to do so now. Denies cigarette smoking and alcohol use. He has no history of first degree relative with sudden . Current antihypertensives include: Norvasc 5mg once daily. He does not log his BP at home. He does feel like he has high blood pressure at times, as his head throbs and he doesn't feel well. Physical exam: Visit Vitals BP 130/88 (BP Source: Left Arm, Position: Sitting) Pulse 78 Heart sounds are normal Lungs are clear Well-appearing, does have facial flushing Diagnostic data: MRI/MRA has been personally reviewed. Echocardiogram reviewed from 11/2019. The aortic valve morphology is trileaflet with no appreciable stenosis and no appreciable regurgitation. Maximal aortic root dimension (sinus to sinus chord) is 48mm (I personally get 46mm maximally). There is no appreciable effacement of the sinotubular junction. Maximal ascending aortic dimension is 34mm. There is no evidence of dissection or rupture. The aortic arch and descending aortic appear normal branching. A/P: Based on these findings, the aneurysm appears stable. Interval follow-up is recommended in 12 months with repeat MRI/MRA. Due to borderline hypertension today, will increase Norvasc to 10mg once daily. I have offered him prescription refill--he was unsure and was going to call if he needed more pills. He was happy to have his medication increased, as he feels as though his BP has been elevated recently. ?? Surgical triggers would include: -aortic aneurysm size [...] maintain systolic blood pressure less than 130mmHg. Guerita Elliott PA-C documented in this encounter Plan of [...] rupture documented in this encounter Care Teams Fitting Room Associate Relationship Specialty Start Date End Date Dasha Sheppard PA-C [address] [place] [address] PCP - General Family Practice 04/12/18 07/10/23 Kilo Wang MD Consulting Physician Neurology 08/30/16 12/01/21 Juan Haddad MD [address] [place] [address] Otolaryngology 09/23/17 documented as of this encounter
--- OUTSIDE RECORDS SUMMARY | 2024-06-24 04:36 | XMS_ITS | Encounter Summary ---
Author Organization [facility] alth Address [address] [facility] [place] [address] Care Team Providers Care Sql Engineer Name Role Phone Kilo Wang MD Unavailable [phone] Juan Haddad MD Unavailable [phone] Dasha Sheppard PA-C Primary Care Provider Reason for Referral * Test/Procedure/Other (Routine) - Closed Specialty Diagnoses / Procedures Referred By Contac t Referred To Contact Radiology Diagnoses Dyspnea, unspecified type Procedures XR CHEST PA AND LATERAL Dasha Sheppard PA-C [address] [place] [address] Phone: tel: fax: Referral ID Status Reason Start Date Expiration Date Visits Re quested Visits Authorized [id number] Closed 03/04/2021 03/04/2022 1 1 Reason for Visit * Reason Onset Date Comments Shortness Of Breath 03/04/2021 LM 03/04 Encounter Details Date Type Department Care Team ([facility] st Contact Info) Description 03/04/2021 Telephone [facility] Line [address] [facility], [address] [place] [address] Dasha Sheppard PA-C [address] [place] [address] Shortness Of Breath (LM 03/04) Social History Tobacco Use Types Packs/Day Years [...] and Family Not on file 09/30/2020 Attends Congregational Services Not on file 09/30 Active Member [...] encounter Miscellaneous Notes * Telephone Encounter - Sabiha Michelle CMA - 03/04/2021 4:15 PM EDT The patient has been notified of this information and all questions answered. * Telephone Encounter - Dasha Sheppard PA-C - 03/04/2021 3:49 PM EDT Orders placed for chest radiograph and blood work - Will follow-up once results are received * Telephone Encounter - Leonie Harrington RN - 03/04/2021 3:38 PM EDT Patient stated that his abd pain has subsided since started the abx. Patient would like to have blood work and CXR completed instead of being evaluated in ED. Patient stated that his shortness of breath is not bad . Patient has not started any medication for GERD. Please advise/order diagnostic tests for patient. * Telephone Encounter - Sabiha Michelle CMA - 03/04/2021 3:03 PM EDT Called patient. No answer. Left message on machine. * Telephone Encounter - Dasha Sheppard PA-C - 03/04/2021 2:29 PM EDT First question - is his LLQ pain improving since starting the antibiotics? If so, continue with antibiotics as prescribed,. If not, recommend that he proceed to the ED for further evaluation of his LLQ pain and shortness of breath Second Question: shortness of breath started on Niko? Has he been taking anything for GERD symptoms? Recommend proceeding with blood work and chest radiograph today to further evaluate shortness ofbreath unless he is proceeding to the ED Please advise * Telephone Encounter - Israel Zuniga LPN - 03/04/2021 1:43 PM EDT pc with pt. Pt was seen yesterday. Pt is taking cipro and is starting to get shortness of breath. Onset Tuesday03-01-2021. Pt forgot to tell Dasha Sheppard PA-C yesterday. Pt states he regurgitated something in his mouth a couple of days ago around 2 or 3 in the am and burnt like the dickens . Ever since that episode he has been sob. No chest pain. No fever, he can smell and taste. No congestion, no sore throat. It is when he is trying to take a breath. Is continuous. He checked his pulse oxand was 98%. Pt is leaving for [place] tomorrow am. documented in this encounter Plan of Treatment Not on file documented as of this encounter Goals Goal Patient Goal Type Associated Problems Recent Progress Patient-Stated? Author Blood Pressure < 140/90 Blood Pressure 160/96( 024 8:13 AM EDT) No Kilo Wang MD documented as of this encounter Results * XR CHEST PA AND LATERAL (03/04/2021 4:56 PM EDT) Anatomical Region Laterality Modality Chest Computed Radiogr aphy 03/04/2021 4:51 PM EDT Impressions 03/04/2021 4:59 PM EDT No radiographic evidence for acute cardiopulmonary abnormality. Specifically, no radiographic evidence for recent aspiration event. Dictating Narrative 03/04/2021 4:59 PM EDT HISTORY: Chest [...] evidence for recent aspiration event. Dictating Workstation: [employer] Dasha Sheppard PA-C [facility] DIAG IMAGING ORD ERABLES Final Result * D-DIMER, QUANT (03/04/2021 4:46 PM EDT) D-Dimer, Quantitative <0.19 <0.50 mg/L FEU 03/04/2021 7:50 PM EDT [facility] Comment: In the proper clinical scenario, a D-dimer value of less than 0.50 mg/L FEU, using this methodology, has a very high predictive value (approximately 100%) to rule out the presence of a PE/DVT. This value should not be used solely to rule out a thrombotic episode. ??If there is an intermediate to high clinical suspicion of a thrombotic episode, additional testing may be indicated. The positive cut-off value for D-Dimer is >= 0.50mg/L FEU. 03/04/2021 4:46 PM EDT 03/04/2021 7:13 PM EDT us Dasha Sheppard PA-C HEMATOLOGY ORDERABLES F inal Result [facility] [address] [facility] [place] [address] * CBC WITH DIFFERENTIAL - LAB (03/04/2021 4:46 PM EDT) WBC Count 7.2 4.8 - 10.8 10*3/uL 03/04/2021 7:43 PM EDT [facility] RBC Count 5.26 4.60 - 6.20 10*6/uL 03/04/2021 7:43 PM EDT [facility] Hgb 15.3 14.0 - 18.0 g/dL 03/04/2021 7:43 PM EDT [facility] Hct 45.7 42.0 - 52.0 % 03/04/2021 7:43 PM EDT [facility] MCV 86.9 80.0 - 100.0 fL 03/04/2021 7:43 PM EDT [facility] MCH 29.1 27.0 - 33.0 pg 03/04/2021 7:43 PM EDT [facility] MCHC 33.5 32.0 - 36.0 g/dL 03/04/2021 7:43 PM EDT [facility] Platelet Count 216 150 - 450 10*3/uL 03/04/2021 7:43 PM EDT [facility] RDW 13.2 12.2 - 14.6 % 03/04/2021 7:43 PM EDT [facility] Neutrophils 62.3 45.0 - 75.0 % 03/04/2021 7:43 PM EDT [facility] Lymphocytes 25.8 19.0 - 46.0 % 03/04/2021 7:43 PM EDT [facility] Monocytes 10.5 2.0 - 12.0 % 03/04/2021 7:43 PM EDT [facility] Eosinophils 1.0 0.0 - 4.0 % 03/04/2021 7:43 PM EDT [facility] Basophils 0.3 0.0 - 1.5 % 03/04/2021 7:43 PM EDT [facility] Immature Granulocytes 0.1 0 - 2 % 03/04/2021 7:43 PM EDT [facility] Neutrophils Absolute 4.51 2.20 - 8.00 10*3/uL 03/04/2021 7:43 PM EDT [facility] Lymphocytes Absolute 1.87 0.90 - 5.00 10*3/uL 03/04/2021 7:43 PM EDT [facility] Monocytes Absolute 0.76 0.20 - 0.80 10*3/uL 03/04/2021 7:43 PM EDT [facility] Eosinophils Absolute 0.07 0.00 - 0.40 10*3/uL 03/04/2021 7:43 PM EDT [facility] Basophils Absolute 0.02 0.00 - 0.40 10*3/uL 03/04/2021 7:43 PM EDT [facility] Immature Granulocyte Absolute 0.01 0.00 - 0.22 10*3/uL 03/04/2021 7:43 PM EDT [facility] 03/04/2021 4:46 PM EDT 03/04/2021 7:36 PM EDT us Dasha Sheppard PA-C HEMATOLOGY ORDERABLES F inal Result [facility] [address] [place] [address] * COMPREHENSIVE METABOLIC PANEL (03/04/2021 4:46 PM EDT) Blood Urea Nitrogen 14 8 - 22 mg/dL 03/04/2021 8:14 PM EDT [facility] Sodium 136 135 - 145 mmol/L 03/04/2021 8:14 PM EDT [facility] Potassium 3.7 3.4 - 5.3 mmol/L 03/04/2021 8:14 PM EDT [facility] Chloride 101 98 - 107 mmol/L 03/04/2021 8:14 PM EDT [facility] CO2 Venous 24.9 21.0 - 31.0 mmol/L 03/04/2021 8:14 PM EDT [facility] Anion Gap 10 5 - 15 mmol/L 03/04/2021 8:14 PM EDT [facility] Creatinine 1.1 0.7 - 1.2 mg/dL 03/04/2021 8:14 PM EDT [facility] BUN/Creatinine Ratio 13 10 - 20 Ratio 03/04/2021 8:14 PM EDT [facility] Calcium 9.6 8.6 - 10.3 mg/dL 03/04/2021 8:14 PM EDT [facility] Protein Total Serum 7.0 5.6 - 7.9 g/dL 03/04/2021 8:14 PM EDT [facility] Albumin 4.6 3.5 - 4.9 g/dL 03/04/2021 8:14 PM EDT [facility] Comment:Result reflects use of Bromocresol Green Methodology. Bilirubin Total 1.0 0.2 - 1.2 mg/dL 03/04/2021 8:14 PM EDT [facility] Alkaline Phosphatase 66 34 - 104 U/L 03/04/2021 8:14 PM EDT [facility] AST (SGOT) 19 13 - 40 U/L 03/04/2021 8:14 PM EDT [facility] ALT (SGPT) 21 7 - 52 U/L 03/04/2021 8:14 PM EDT [facility] A/G Ratio 1.9 1.0 - 2.0 Ratio 03/04/2021 8:14 PM EDT [facility] Globulin 2.4 gm/dL 03/04/2021 8:14 PM EDT [facility] GFR >60 mL/min/1.7 3 sqm 03/04/2021 8:14 PM EDT [facility] Comment: Notes for GFR: 1. ??Multiply result by 1.21 if patient is black/ ?[place]ian. 2. ??Chronic kidney disease: <60 mL/min/1.73 sq.m. ?Renal Failure: <15 mL/min/1.73 sq.m. Calcium, Corrected(Adj/Ca lc)Total 9.1 mg/dL 03/04/2021 8:14 PM EDT [facility] 03/04/2021 4:46 PM EDT 03/04/2021 7:33 PM EDT us Dasha Sheppard PA-C CHEMISTRY ORDERABLES Fi nal Result [facility] [address] [place] [id number] documented in this encounter Visit Diagnoses Diagnosis Dyspnea, unspecified type- Primary Diverticulitis Diverticulitis of colon (without mention of hemorrhage) Dyspnea, unspecified type documented in this encounter Care Teams Sql Engineer Relationship Specialty Start Date End Date Dasha Sheppard PA-C [address] [address] PCP - General Family Practice 04/12/18 07/10/23 Kilo Wang MD Consulting Physician Neurology 08/30/16 12/01/21 Juan Haddad MD [address] [address] Otolaryngology 09/23/17 documented as of this encounter
--- OUTSIDE RECORDS SUMMARY | 2024-06-24 04:36 | XMS_ITS | Encounter Summary ---
Author Organization [facility] alth Address [address] [place] [address] Care Team Providers Care Painting Contractor Name Role Phone Kilo Wang MD Unavailable [phone] Juan Haddad MD Unavailable [phone] Dasha Sheppard PA-C Primary Care Provider Reason for Referral * Test/Procedure/Other (Urgent) - Closed Specialty Diagnoses / Procedures Referred By Contcarlie t Referred To Contact Radiology Diagnoses Diverticulitis Procedures CT ABDOMEN PELVIS W IV AND PO CONTRAST Dasha Sheppard PA-C [address] [address] Phone: tel: fax: Referral ID Status Reason Start Date Expiration Date Visits Re quested Visits Authorized [id number] Closed 08/29/2020 02/25/2021 1 1 Reason for Visit * Reason Comments Diverticulitis Patient is having on going abdominal cramps, fecal urgency, constipation, and stool changes. Encounter Details Date Type Department Care Team ([facility] st Contact Info) Description 08/29/2020 9:00 AM EST Office Visit [facility] [address], [address] [place] [id number] Dasha Sheppard PA-C [address] [address] Diverticulitis (Primary Dx) Discharge Disposition: Home/Self Care Social [...] Sign Reading Time Taken Comments Blood Pressure 122/80 08/29/2020 9:02 AM EST Pulse 98 08/29/2020 9:02 AM EST Temperature 36.1 ??C (96.9 ??F) 08/29/2020 9:02 AM ES T Respiratory Rate - - Oxygen Saturation - - Inhaled Oxygen Concentration - - Weight 106 kg (234 lb) 08/29/2020 9:02 AM EST Height - - Body Mass Index 31.74 06/16/2020 7:09 AM EST documented in this encounter Progress Notes * Dasha Sheppard PA-C - 08/29/2020 9:00 AM EST Assessment and Plan 1. Diverticulitis - CT ABDOMEN PELVIS W IV AND PO CONTRAST; Future Discussed etiology of symptoms Plan to repeat CT scan to re-evaluate and rule out abscess Discussed signs and symptoms that warrant further evaluation in the ED Will follow-up once results are received Call the office with any new or worsening symptoms. Robert verbalized understanding of above. Subjective Person Accompanying : No one Chief Complaint Patient presents with ??? Diverticulitis Patient is having ongoing abdominal cramps, fecal urgency, constipation, and stool changes. HPI Symptoms as above that have been ongoing since Tuesday. Diagnosed 08/19/2020 at [facility] ED with diverticulitis and prescribed Augmentin x 10 days. States that his symptoms were improving but on Tuesday his symptoms returned: abdominal cramping, loose stools with mucus, fecal urgency and nausea. Denies fever/chills, cough, vomiting, neck pain, back pain, headache, chest pain and shortness of breath. Review of Systems as above Social Determinants of Health: Social History Tobacco Use Smoking Status Never Smoker Smokeless Tobacco Current User ??? Types: Chew Tobacco Comment chewing tobacco 2 cans/week Future appointments already scheduled: No future appointments. Objective Vitals: 08/29/20 0902 BP: 122/80 BP Source: Right Arm Position: Sitting Cuff Size: Large Pulse: 98 Temp: 96.9 ??F (36.1 ??C) TempSrc: Temporal Weight: 106 kg (234 lb) Body mass index is 31.74 kg/m??. Additional Vitals (.ambadditionalvitals) Is the patient wearing a mask?: Yes PPE WORN BY CLINICAL STAFF: Mask, Goggles/face shield, Gloves PPE WORN BY PROVIDER: mask and gloves Total time spent in face to face contact was 20-29 minutes. Physical Exam Vitals and nursing note reviewed. Constitutional: Appearance: He is well-developed. Eyes: Pupils: Pupils are equal, round, and reactive to light. Neck: Thyroid: No thyromegaly. Cardiovascular: Rate and Rhythm: Normal rate and regular rhythm. Heart sounds: Normal heart sounds. Pulmonary: Effort: Pulmonary effort is normal. Breath sounds: Normal breath sounds. Abdominal: General: Abdomen is flat. Bowel sounds are decreased. There is no distension. Palpations: Abdomen is soft. Tenderness: There is abdominal tenderness in the suprapubic area and left lower quadrant. There is guarding. There is no right CVA tenderness, left CVA tenderness or rebound. Negative signs include Mayorga's sign, Rovsing's sign and McBurney's sign. Musculoskeletal: General: Normal range of motion. Cervical back: Neck supple. Lymphadenopathy: Cervical: No cervical adenopathy. Skin: General: Skin is warm and dry. Neurological: Mental Status: He is alert and oriented to person, place, and time. Psychiatric: Behavior: Behavior normal. Thought Content: Thought content normal. Judgment: Judgment normal. Chart Review: Chart Sections reviewed by provider: documented in this encounter Plan of Treatment Not on file documented as of this encounter Goals Goal Patient Goal Type Associated Problems Recent Progress Patient-Stated? Author Blood Pressure < 140/90 Blood Pressure 160/96( 024 8:13 AM EDT) Kilo Mora MD documented as of this encounter Results * CT ABDOMEN PELVIS W IV AND PO CONTRAST (08/29/2020 8:05 PM EST) Anatomical Region Laterality Modality Abdomen Computed Tomogra phy 08/29/2020 8:04 PM EST Impressions 08/29/2020 8:12 PM EST 1. There is a new area of diverticular inflammation involving the distal descending colon. 2. There is a stable area of diverticular inflammation involving the sigmoid colon. 3. There are additional incidental findings as described above. All exams performed by [facility] utilize one or more of the following dose optimization techniques: automated exposure control, adjustment of the mA and/or kV according to patient size and/or the use of iterative reconstruction techniques. ??Audits are completed at the protocol, device and patient level to ensure compliance. ??All protocols (per device) are periodically reviewed by a team of medical physicists, technologists and radiologists. Dictating Narrative 08/29/2020 8:[address] ABDOMEN PELVIS W IV AND PO CONTRAST History: Known diverticulitis, no improvement with antibiotics Comparison: Multiple examinations Technique: A CT examination of the abdomen and pelvis was performed and reviewed in axial, sagittal and coronal reformatted imaging. Contrast: 100 cc of Isovue 370 IV. Oral contrast was also given. Comments: The lung bases are clear. The imaged portion of the heart is normal without evidence of a pericardial effusion. The enhanced liver, spleen, pancreas and RIGHT adrenal gland are unremarkable in appearance. There is no intra-or extrahepatic biliary duct dilation. The gallbladder is unremarkable. There is a stable 10 mm LEFT adrenal gland nodule which is not fully characterized on this study The LEFT kidney is absent. The RIGHT kidney is unremarkable in contour and enhancement. There is no hydronephrosis. Wall thickening with inflammatory changes are again seen involving the sigmoid colon. The changes are stable to minimally decreased. There is an area of inflammation involving the distal descending colon which was not present on the previous examination. There is extensive diverticulosis. The small bowel is normal in course and caliber without evidence of obstruction or wall thickening. There is no intraperitoneal free air or free fluid. ??There is no significant intra- abdominal adenopathy. Regional vasculature is unremarkable. Regional osseous and superficial soft tissue structures are stable. ?? Procedure Note Viraj Marrero MD - 08/29/2020 CT ABDOMEN PELVIS W IV AND PO CONTRAST History: Known diverticulitis, no improvement with antibiotics Comparison: Multiple examinations Technique: A CT examination of the abdomen and pelvis was performed andreviewed in axial, sagittal and coronal reformatted imaging. Contrast: 100 cc of Isovue 370 IV. Oral contrast was also given. Comments: The lung bases are clear. The imaged portion of the heart is normalwithout evidence of a pericardial effusion. The enhanced liver, spleen, pancreas and RIGHT adrenal gland areunremarkable in appearance. There is no intra-or extrahepatic biliary ductdilation. The gallbladder is unremarkable. There is a stable 10 mm LEFTadrenal gland nodule which is not fully characterized on this study The LEFT kidney is absent. The RIGHT kidney is unremarkable in contour andenhancement. There is no hydronephrosis. Wall thickening with inflammatory changes are again seen involving thesigmoid colon. The changes are stable to minimally decreased. There is anarea of inflammation involving the distal descending colon which was notpresent on the previous examination. There is extensive diverticulosis.The small bowel is normal in course and caliber without evidence ofobstruction or wall thickening. There is no intraperitoneal free air orfree fluid. There is no significant intra-abdominal adenopathy. Regionalvasculature is unremarkable. Regional osseous and superficial soft tissue structures are stable. IMPRESSION: 1. There is a new area of diverticular inflammation involving the distaldescending colon. 2. There is a stable area of diverticular inflammation involving thesigmoid colon. 3. There are additional incidental findings as described above. All exams performed by [facility] utilize one or more of the following doseoptimization techniques: automated exposure control, adjustment of the mAand/or kV according to patient size and/or the use of iterativereconstruction techniques. Audits are completed at the protocol, deviceand patient level to ensure compliance. All protocols (per device) areperiodically reviewed by a team of medical physicists, technologists andradiologists. Dictating Workstation: Super Vitamin D us Dasha Sheppard PA-C [facility] CT ORDERABLES Fi nal Result documented in this encounter Visit Diagnoses Diagnosis Diverticulitis- Primary Diverticulitis of colon (without mention of hemorrhage) Diverticulitis Diverticulitis of colon (without mention of hemorrhage) documented in this encounter Care Teams Painting Contractor Relationship Specialty Start Date End Date Dasha Sheppard PA-C [address] [address] PCP - General Family Practice 04/12/18 07/10/23 Kilo Wang MD Consulting Physician Neurology 08/30/16 12/01/21 Juan Haddad MD [address] [address] Otolaryngology 09/23/17 documented as of this encounter
--- OUTSIDE RECORDS SUMMARY | 2024-06-24 04:36 | XMS_ITS | Encounter Summary ---
Author Organization [facility] alth Address [address] [facility] [place] [address] Care Team Providers Care Aerodynamic Consultant Name Role Phone Kilo Wang MD Unavailable [phone] Juan Haddad MD Unavailable [phone] Dasha Sheppard PA-C Primary Care Provider Reason for Visit * Reason Comments Pain Patient with complai nts of right low back pain. Onset: It's been a while. . Encounter Details Date Type Department Care Team (Late st Contact Info) Description 09/30/2020 3:00 PM EDT Office Visit [facility] [address] [facility], [address] [place] [phone] Dasha Sheppard, [place] [address] [place] [address] [place] [address] Acute right-sided low back pain, unspecified whether sciatica present (Primary Dx) Discharge Disposition: Home/Self Care Social [...] Sign Reading Time Taken Comments Blood Pressure 130/78 09/30/2020 3:04 PM EDT Pulse 88 09/30/2020 3:04 PM EDT Temperature 36.6 ??C (97.8 ??F) 09/30/2020 3:04 PM ED T Respiratory Rate - - Oxygen Saturation - - Inhaled Oxygen Concentration - - Weight 106 kg (233 lb) 09/30/2020 3:04 PM EDT Height - - Body Mass Index 31.6 06/16/2020 7:09 AM EST documented in this encounter Progress Notes * Dasha Sheppard PA-C - 09/30/2020 3:18 PM EDT Assessment and Plan 1. Acute right-sided low back pain, unspecified whether sciatica present - UA POC; Future - UA POC - predniSONE (DELTASONE) 20 MG tablet; Take 3 tablets daily x 3 days, 2 tablets daily x 3 days, 1 tablet daily x 4 days. Dispense: 19 tablet; Refill: 0 Discussed medication instructions and precautions, including risks, benefits, and side effects of new medications Discontinue NSAIDS while taking steroids, can resume NSAIDS once steroids are completed. Recommend taking steroids with food. Can take Tylenol as needed. Has Flexeril at home from last flare-up - advised to use at bedtime and discussed sedation effects of medication Discussed proceeding with MRI of lumbar spine if flare-ups continue Return to office in 2 weeks if no better, sooner if worse. Robert verbalized understanding of above. Subjective Person Accompanying : No one Chief Complaint Patient presents with ??? Pain Patient with complaints of right low back pain. Onset: It's been a while. . HPI Symptoms as above - states that over the past 2 weeks his RIGHT low back has been bothering him. States that his symptoms are similar to his symptoms in 03/2020 except that he does not have the pain radiating to his buttock and thigh. 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 States that once he is moving around his symptoms improve but when he sits for long periods is when his symptoms return. Review of Systems as above Social Determinants of Health: Social History Tobacco Use Smoking Status Never Smoker Smokeless Tobacco Current User ??? Types: Chew Tobacco Comment chewing tobacco 2 cans/week Future appointments already scheduled: No future appointments. Objective Vitals: 09/30/20 1504 BP: 130/78 BP Source: Right Arm Position: Sitting Cuff Size: Large Pulse: 88 Temp: 97.8 ??F (36.6 ??C) TempSrc: Temporal Weight: 106 kg (233 lb) Body mass index is 31.6 kg/m??. Additional Vitals (.ambadditionalvitals) Is the patient wearing a mask?: Yes PPE WORN BY CLINICAL STAFF: Mask, Goggles/face shield, Gloves PPE WORN BY PROVIDER: mask,gloves Total time spent in face to face contact was > or = 15 minutes. Physical Exam Vitals and nursing note reviewed. Constitutional: Appearance: Normal appearance. Musculoskeletal: Comments: Back: + exquisite TTP of RIGHT SI joint and surrounding paraspinal muscles. Decreased ROMin all directions due to pain. NV intact and sensation grossly intact distally Skin: General: Skin is warm and dry. [...] Priority Date/Time Associated Diagnosis Comments UA POC Routine 09/30/2020 3:18 PM EDT Acute right-sided low back pain, unspecified whether sciatica present documented in this encounter Results * UA POC (09/30/2020 3:18 PM EDT) Urine Color YELLOW YELLOW 09/30/2020 3:18 PM EDT [facility] Urine Appearance CLEAR Clear 10/01/19 3:18 PM EDT [facility] Urine Specific [place] 1.020 1.005 - 1.030 09/30/2020 3:18 PM EDT [facility] Urine Glucose Qual NEGATIVE Negative mg/dL 09/30/2020 3:18 PM EDT [facility] Urine Bilirubin NEGATIVE Negative 3:18 PM EDT [facility] Urine Ketone NEGATIVE Negative mg/dL 09/30/2020 3:18 PM EDT [facility] Urine Blood NEGATIVE Negative 09/30/2020 3:18 PM EDT [facility] Urine pH 7.0 5.0 - 8.0 [pH] 09/30/2020 3:18 PM EDT [facility] Urine Protein -Dipstick NEGATIVE Negative mg/dL 09/30/2020 3:18 PM EDT [facility] Urine Urobilinogen 1.0 0.2 - 1.0 mg/dL 09/30/2020 3:18 PM EDT [facility] Urine Nitrite NEGATIVE Negative 09/30/2020 3:18 PM EDT [facility] Urine Leukocyte Esterase NEGATIVE Negative 09/30/2020 3:18 PM EDT [facility] Urine Source MIDSTREAM 09/30/2020 3:18 PM EDT [facility] 09/30/2020 3:18 PM EDT 09/30/2020 3:18 PM EDT Dasha Sheppard PA-C URINALYSIS ORDERABLES F inal Result [facility] [address] [place] [id number] documented in this encounter Visit Diagnoses Diagnosis Acute right-sided low back pain, unspecified whether sciatica present- Primary documented in this encounter Care Teams Aerodynamic Consultant Relationship Specialty Start Date End Date Dasha Sheppard PA-C [address] [address] PCP - General Family Practice 04/12/18 07/10/23 Kilo Wang MD Consulting Physician Neurology 08/30/16 12/01/21 Juan Haddad MD [address] [address] Otolaryngology 09/23/17 documented as of this encounter
--- OUTSIDE RECORDS SUMMARY | 2024-06-24 04:36 | XMS_ITS | Encounter Summary ---
Author Organization [facility]th [facility] [address] [address] Care Team Providers Care Sidewalk Inspector Name Role Phone Kilo Wang MD Unavailable [phone] Juan Haddad MD Unavailable [phone] Dasha Sheppard PA-C Primary Care Provider Trey Jennings MD Unavailable [phone] Guerita Elliott-C Unavailable +[phone] Matthew Rushing MD Unavailable [phone] Matthew Rushing MD Unavailable +[phone] Matthew Rushing MD Unavailable +[phone] Matthew Rushing MD Unavailable +[phone] Matthew Rushing MD Unavailable +[phone] Matthew Rushing MD Unavailable +[phone] Matthew Rushing MD Unavailable +[phone] Matthew Rushing MD Unavailable +[phone] Matthew Rushing MD Unavailable +[phone] Matthew Rushing MD Unavailable +[phone] Matthew Rushing MD Unavailable +[phone] Matthew Rushing MD Unavailable +[phone] Matthew Rushing MD Unavailable +[phone] Matthew Rushing MD Unavailable +[phone] Trey Jennings MD Unavailable +4 -5 Guerita Elliott PA-C Unavailable +4 -5 Matthew Rushing MD Unavailable +[phone] Guerita Elliott J PA-C Unavailable +4 -5 Matthew Rushing MD Unavailable +[phone] Matthew Rushing MD Unavailable +[phone] Guerita Elliott PA-C Unavailable +4 -5 Guerita Elliott PA-C Unavailable +[phone] Matthew Rushing MD Unavailable +[phone] Guerita Elliott PA-C Unavailable +4 -5 Matthew Rushing MD Unavailable +[phone] Matthew Rushing MD Unavailable +[phone] Guerita Elliott PA-C Unavailable +4 -5 Matthew Rushing MD Unavailable +[phone] Guerita Elliott PA-C Unavailable +4 [phone] Matthew Rushing MD Unavailable +[phone] Guerita Elliott PA-C Unavailable +4 -[phone] Guerita Elliott PA-C Unavailable +[phone] Matthew Rushing MD Unavailable +[phone] Guerita Elliott PA-C Unavailable +4 -[phone] Matthew Rushing MD Unavailable +[phone] Guerita Elliott PA-C Unavailable +[phone] Matthew Rushing MD Unavailable +[phone] Earl, Guerita J PA-C Unavailable +4 -5 Matthew Rushing MD Unavailable +[phone] Matthew Rushing MD Unavailable +[phone] Guerita Elliott PA-C Unavailable +4 [phone] Matthew Rushing MD Unavailable +[phone] Guerita Elliott J PA-C Unavailable +4 -[phone] Guerita Elliott J PA-C Unavailable +4 -[phone] Matthew Rushing MD Unavailable +[phone] Matthew Rushing MD Unavailable +[phone] Guerita Elliott J PA-C Unavailable +4 -[phone] Guerita Elliott Kim PA-C Unavailable +[phone] Matthew Rushing MD Unavailable Matthew Rushing MD Unavailable +[phone] Guerita Elliott Kim PA-C Unavailable +[phone] Guerita Elliott Kim PA-C Unavailable +4 -4995 Matthew Rushing MD Unavailable +[phone] Matthew Rushing MD Unavailable +[phone] Guerita Elliott Kim PA-C Unavailable +4 -[phone] KnoxLilli pinoher Alvarez PA-C Unavailable +[phone] Matthew Rushing MD Unavailable +[phone] Matthew Rushing MD Unavailable +[phone] Guerita Elliott J PA-C Unavailable +4 -[phone] EarlLilliGuerita J PA-C Unavailable +[phone] Matthew Rushing MD Unavailable +[phone] Guerita Elliott Kim PA-C Unavailable +[phone] Matthew Rushing MD Unavailable +[phone] Matthew Rushing MD Unavailable +[phone] Earl Guerita J PA-C Unavailable +4 -5 Lilli Elliotther J PA-C Unavailable +4 -4995 Matthew Rushing MD Unavailable +[phone] Matthew Rushing MD Unavailable +[phone] Earl Guerita J PA-C Unavailable +4 -[phone] Earl Guerita J PA-C Unavailable +4 -4995 Matthew Rushing MD Unavailable +[phone] Matthew Rushing MD Unavailable +[phone] Guerita Elliott PA-C Unavailable +4 -5 Matthew Rushing MD Unavailable +[phone] EarlGuerita J PA-C Unavailable +4 -[phone] Matthew Rushing MD Unavailable KnoxGuerita pino J PA-C Unavailable +4 -4995 Guerita Elliott J PA-C Unavailable +4 -[phone] Matthew Rushing MD Unavailable +[phone] Matthew Rushing MD Unavailable +[phone] Guerita Elliott J PA-C Unavailable +4 -[phone] KnoxGuerita pino J PA-C Unavailable +[phone] Matthew Rushing MD Unavailable +[phone] Matthew Rushing MD Unavailable Lilli Elliotther J PA-C Unavailable +[phone] Matthew Rushing MD Unavailable +[phone] Guerita Elliott PA-C Unavailable +4 -4995 Matthew Rushing MD Unavailable +[phone] Lilli Elliotther Alvarez PA-C Unavailable +4 -5 Earl Guerita J PA-C Unavailable +4 -5 Matthew Rushing MD Unavailable +[phone] Matthew Rushing MD Unavailable +[phone] Earl Guerita J PA-C Unavailable +4 -[phone] Earl Guerita J PA-C Unavailable +[phone] Matthew Rushing MD Unavailable +[phone] Earl Guerita Alvarez PA-C Unavailable +4 -5 Matthew Rushing MD Unavailable +[phone] Matthew Rushing MD Unavailable +[phone] Earl Guerita Alvarez PA-C Unavailable +4 -5 Matthew Rushing MD Unavailable +[phone] Earl Guerita Alvarez PA-C Unavailable +[phone] Matthew Rushing MD Unavailable +[phone] Guerita Elliott PA-C Unavailable +4 -4995 Guerita Elliott PA-C Unavailable +[phone] Matthew Rushing MD Unavailable +[phone] Matthew Rushing MD Unavailable +[phone] Guerita Elliott PA-C Unavailable +[phone] Matthew Rushing MD Unavailable +[phone] Guerita Elliott PA-C Unavailable +4 -4995 Matthew Rushing MD Unavailable +[phone] Guerita Elliott PA-C Unavailable +[phone] Guerita Elliott PA-C Unavailable +[phone] Matthew Rushing MD Unavailable +[phone] Guerita Elliott-C Unavailable +4 -4995 Matthew Rushing MD Unavailable Guerita Elliott PA-C Unavailable +4 -4995 Matthew Rushing MD Unavailable +[phone] Guerita Elliott PA-C Unavailable +4 -4995 Matthew Rushing MD Unavailable +[phone] Guerita Elliott-C Unavailable +[phone] Matthew Rushing MD Unavailable +[phone] Guerita Elliott PA-C Unavailable +[phone] Matthew Rushing MD Unavailable +[phone] Txfr Provider [facility], Temporary Primary Care Provider Matthew Rushing MD Unavailable +[phone] Guerita Elliott-C Unavailable +[phone] Matthew Rushing MD Unavailable +[phone] Guerita Elliott PA-C Unavailable +4 -[phone] Matthew Rushing MD Unavailable +[phone] Guerita Elliott-C Unavailable +4 -4995 Guerita Elliott PA-C Unavailable +[phone] Matthew Rushing MD Unavailable +[phone] Guerita Elliott-C Unavailable +[phone] Matthew Rushing MD Unavailable +[phone] Matthew Rushing MD Unavailable +[phone] Guerita Elliott-C Unavailable +[phone] Matthew Rushing MD Unavailable +[phone] Guerita Elliott PA-C Unavailable +4 -5 Guerita Elliott Kim PA-C Unavailable +4 -499 Matthew Rushing MD Unavailable +[phone] Matthew Rushing MD Unavailable +[phone] Guerita Elliott Kim PA-C Unavailable +4 -[phone] Matthew Rushing MD Unavailable +[phone] Guerita Elliott PA-C Unavailable +[phone] Matthew Rushing MD Unavailable +[phone] Guerita Elliott PA-C Unavailable +4 -[phone] Matthew Rushing MD Unavailable +[phone] Guerita Elliott PA-C Unavailable +4 -4995 Guerita Elliott J PA-C Unavailable +4 -4995 Matthew Rushing MD Unavailable +[phone] Matthew Rushing MD Unavailable +[phone] Guerita Elliott Kim PA-C Unavailable +4 -[phone] Matthew Rushing MD Unavailable Guerita Elliott Kim PA-C Unavailable +4 [phone] Matthew Rushing MD Unavailable +[phone] Guerita Elliott PA-C Unavailable +4 -4995 Guerita Elliott Kim PA-C Unavailable +[phone] Matthew Rushing MD Unavailable +[phone] Matthew Rushing MD Unavailable +[phone] Guerita Elliott J PA-C Unavailable +4 -4995 EarlGuerita Kim PA-C Unavailable +4 -4995 Matthew Rushing MD Unavailable +[phone] Guerita Elliott PA-C Unavailable +4 -4995 Matthew Rushing MD Unavailable +[phone] Guerita Elliott PA-C Unavailable +4 -[phone] Matthew Rushing MD Unavailable +[phone] Matthew Rushing MD Unavailable +[phone] Guerita Elliott PA-C Unavailable +[phone] Matthew Del Toro MD Primary Care Provider [phone] Guerita Elliott PA-C Unavailable +[phone] Matthew Rushing MD Unavailable +[phone] Guerita Elliott PA-C Unavailable +[phone] Matthew Rushing MD Unavailable +[phone] Guerita Elliott PA-C Unavailable +[phone] Matthew Rushing MD Unavailable +[phone] Guerita Elliott PA-C Unavailable +[phone] Matthew Rushing MD Unavailable +[phone] Guerita Elliott PA-C Unavailable +[phone] Matthew Rushing MD Unavailable +[phone] Matthew Rushing MD Unavailable +[phone] Guerita Elliott PA-C Unavailable +[phone] Guerita Elliott PA-C Unavailable +[phone] Matthwe Rushing MD Unavailable +[phone] Matthew Rushing MD Unavailable +[phone] Guerita Elliott PA-C Unavailable +[phone] Matthew Rushing MD Unavailable +[phone] Guerita Elliott PA-C Unavailable +[phone] Guerita Elliott PA-C Unavailable Matthew Rushing MD Unavailable Matthew Rushing MD Unavailable +[phone] Guerita Elliott PA-C Unavailable Guerita Elliott PA-C Unavailable +[phone] Matthew Rushing MD Unavailable +[phone] Guerita Elliott PA-C Unavailable +[phone] Matthew Rushing MD Unavailable Matthew Rushing MD Unavailable +[phone] Guerita Elliott PA-C Unavailable Matthew Rushing MD Unavailable +[phone] Guerita Elliott PA-C Unavailable Reason for Visit * Reason Onset Date Comments ER F/U 08/19/2020 fyi Encounter Details Date Type Department Care Team (Late st Contact Info) Description 08/19/2020 Telephone [facility] [place] Line [address] [facility], [address] [place] [address] Dasha Sheppard PA-C [address] [place] [id number] ER F/U (fyi) Social History Tobacco Use Types Packs/Day Years [...] and Family Not on file 09/30/2020 Attends [employer] Not on file 09/30 Active Member [...] on file documented as of this encounter Functional Status documented as of this encounter Miscellaneous Notes * Telephone Encounter - Dasha Sheppard PA-C - 08/19/2020 12:13 PM EST Note reviewed * Telephone Encounter - Margret Dunn RN - 08/19/2020 12:09 PM EST Pt ntfd and said he is feeling alittle better and he said he will wait a couple of days and if still not feeling well will call to make appt * Telephone Encounter - Margret Dunn RN - 08/19/2020 8:01 AM EST Called patient. No answer. Left message on machine. * Telephone Encounter - Margret uDnn RN - 08/19/2020 7:35 AM EST Top er abd algx-trzeinpshrwjix-o/u pcp 08/19 documented in this encounter Plan of Treatment [...] Last Indicated Resolved Time Symptomatic COVID PUI 03/26/2021 03/27/20212020 7:16 PM EDT COVID-19 03/27/2021 03/27/2021 04/17/2021 8:34 PM EDT documented as of this encounter Care Teams Sidewalk Inspector Relationship Specialty Start Date End Date Dasha Sheppard PA-C [address] [place] [address] [place] [address] PCP - General Family Practice 04/12/18 07/10/23 Txfr Provider [facility] [place], Temporary [address] [place] [address] [place] [id number] PCP - General Family Practice 07/11/23 12/11/23 Matthew Del Toro MD [address] [address] PCP - General Family Practice 12/12/23 Kilo Wang MD Consulting Physician Neurology 08/30/16 12/01/21 Juan Haddad MD [address] [place] [address] Otolaryngology 09/23/17 Trey Jennings MD [address] [address] Consulting Physician Cardiothoracic Surgery 07/13/21 Guerita Elliott PA-C [address] [address] [facility] Specialist Cardiothoracic Surgery 01/03/22 06/27/22 Matthew Rushing MD [address] [place] [address] [facility] Specialist Cardiology - General 03/07/22 03/28/22 Matthew Rushing MD [address] [place] [address] [facility] Specialist Cardiology - General 04/04/22 04/04/22 Matthew Rushing MD [address] [place] [address] [facility] Specialist Cardiology - General 04/11/22 04/11/22 Matthew Rushing MD [address] [place] [address] [facility] Specialist Cardiology - General 04/18/22 04/18/22 Matthew Rushing MD [address] [place] [address] [facility] Specialist Cardiology - General 04/25/22 04/25/22 Matthew Rushing MD [address] [place] [address] [facility] Specialist Cardiology - General 05/02/22 05/02/22 Matthew Rushing MD [address] [place] [address] [facility] Specialist Cardiology - General 05/09/22 05/09/22 Matthew Rushing MD [address] [place] [address] [facility] Specialist Cardiology - General 05/16/22 05/16/22 Matthew Rushing MD [address] [place] [address] [facility] Specialist Cardiology - General 05/23/22 05/23/22 Matthew Rushing MD [address] [place] [address] [facility] Specialist Cardiology - General 05/30/22 05/30/22 Matthew Rushing MD [address] [place] [address] [facility] Specialist Cardiology - General 06/06/22 06/06/22 Matthew Rushing MD [address] [place] [address] [facility] Specialist Cardiology - General 06/13/22 06/13/22 Matthew Rushing MD [address] [place] [address] [facility] Specialist Cardiology - General 06/20/22 06/20/22 Matthew Rushing MD [address] [place] [address] [facility] Specialist Cardiology - General 06/27/22 06/27/22 Trey Jennings MD [address] [place] [address] [facility] Specialist Cardiothoracic Surgery 06/27/22 Guerita Elliott PA-C [address] [place] [address] [facility] Specialist Cardiothoracic Surgery 07/04/22 3 Matthew Rushing MD [address] [place] [address] [facility] Specialist Cardiology - General 07/04/22 07/04/22 Guerita Elliott PA-C [address] [place] [address] [facility] Specialist Cardiothoracic Surgery 07/11/22 3 Matthew Rushing MD [address] [place] [address] [facility] Specialist Cardiology - General 07/11/22 07/11/22 Matthew Rushing MD [address] [place] [address] [facility] Specialist Cardiology - General 07/18/22 07/18/22 Guerita Elliott PA-C [address] [address] [facility] Specialist Cardiothoracic Surgery 07/18/22 3 Guerita Elliott PA-C [address] [address] [facility] Specialist Cardiothoracic Surgery 07/25/22 07/25/22 Matthew Rushing MD [address] [place] [address] [facility] Specialist Cardiology - General 07/25/22 07/25/22 Guerita Elliott PA-C [address] [address] [facility] Specialist Cardiothoracic Surgery 08/01/22 3 Matthew Rushing MD [address] [place] [address] [facility] Specialist Cardiology - General 08/01/22 08/01/22 Matthew Rushing MD [address] [place] [address] [facility] Specialist Cardiology - General 08/08/22 08/08/22 Guerita Elliott PA-C [address] [facility] Specialist Cardiothoracic Surgery 08/08/22 3 Matthew Rushing MD [address] [place] [address] [facility] Specialist Cardiology - General 08/15/22 08/15/22 Guerita Elliott PA-C [address] [address] [facility] Specialist Cardiothoracic Surgery 08/15/22 3 Matthew Rushing MD [address] [place] [address] [facility] Specialist Cardiology - General 08/22/22 08/22/22 Guerita Elliott PA-C [address] [facility] Specialist Cardiothoracic Surgery 08/22/22 08/22/22 Guerita Elliott PA-C [address] [address] [facility] Specialist Cardiothoracic Surgery 08/29/22 3 Matthew Rushing MD [address] [place] [address] [facility] Specialist Cardiology - General 08/29/22 08/29/22 Guerita Elliott PA-C [address] [facility] Specialist Cardiothoracic Surgery 09/05/22 3 Matthew Rushing MD [address] [place] [address] [facility] Specialist Cardiology - General 09/05/22 09/05/22 Guerita Elliott PA-C [address] [address] [facility] Specialist Cardiothoracic Surgery 09/12/22 3 Matthew Rushing MD [address] [place] [address] [facility] Specialist Cardiology - General 09/12/22 09/12/22 Guerita Elliott PA-C [address] [address] [facility] Specialist Cardiothoracic Surgery 09/19/22 09/19/22 Matthew Rushing MD [address] [place] [address] [facility] Specialist Cardiology - General 09/19/22 09/19/22 Matthew Rushing MD [address] [place] [address] [facility] Specialist Cardiology - General 09/26/22 09/26/22 Guerita Elliott PA-C [address] [address] [facility] Specialist Cardiothoracic Surgery 09/26/22 09/26/22 Matthew Rushing MD [address] [place] [address] [facility] Specialist Cardiology - General 10/03/22 10/03/22 Guerita Elliott PA-C [address] [facility] Specialist Cardiothoracic Surgery 10/03/22 3 Guerita Elliott PA-C [address] [facility] Specialist Cardiothoracic Surgery 10/10/22 3 Matthew Rushing MD [address] [place] [address] [facility] Specialist Cardiology - General 10/10/22 10/10/22 Matthew Rushing MD [address] [place] [address] [facility] Specialist Cardiology - General 10/17/22 10/17/22 Guerita Elliott PA-C [address] [place] [address] [facility] Specialist Cardiothoracic Surgery 10/17/22 3 Guerita Elliott PA-C [address] [place] [address] [facility] Specialist Cardiothoracic Surgery 10/24/22 10/24/22 Matthew Rushing MD [address] [place] [address] [facility] Specialist Cardiology - General 10/24/22 10/24/22 Matthew Rushing MD [address] [place] [address] [facility] Specialist Cardiology - General 10/31/22 10/31/22 Guerita Elliott PA-C [address] [address] [facility] Specialist Cardiothoracic Surgery 10/31/22 3 Guerita Elliott PA-C [address] [address] [facility] Specialist Cardiothoracic Surgery 11/07/22 3 Matthew Rushing MD [address] [place] [address] [facility] Specialist Cardiology - General 11/07/22 11/07/22 Matthew Rushing MD [address] [place] [address] [facility] Specialist Cardiology - General 11/14/22 11/14/22 Guerita Elliott PA-C [address] [address] [facility] Specialist Cardiothoracic Surgery 11/14/22 3 Guerita Elliott PA-C [address] [facility] Specialist Cardiothoracic Surgery 11/21/22 11/21/22 Matthew Rushing MD [address] [place] [address] [facility] Specialist Cardiology - General 11/21/22 11/21/22 Matthew Rushing MD [address] [place] [address] [facility] Specialist Cardiology - General 11/28/22 11/28/22 Guerita Elliott PA-C [address] [place] [address] [facility] Specialist Cardiothoracic Surgery 11/28/22 3 Guerita Elliott PA-C [address] [place] [address] [facility] Specialist Cardiothoracic Surgery 12/05/22 3 Matthew Rushing MD [address] [place] [address] [facility] Specialist Cardiology - General 12/05/22 12/05/22 Guerita Elliott PA-C [address] [place] [address] [facility] Specialist Cardiothoracic Surgery 12/12/22 3 Matthew Rushing MD [address] [place] [address] [facility] Specialist Cardiology - General 12/12/22 12/12/22 Matthew Rushing MD [address] [place] [address] [facility] Specialist Cardiology - General 12/19/22 12/19/22 Guerita Elliott PA-C [address] [address] [facility] Specialist Cardiothoracic Surgery 12/19/22 12/19/22 Guerita Elliott PA-C [address] [address] [facility] Specialist Cardiothoracic Surgery 12/26/22 12/26/22 Matthew Rushing MD [address] [place] [address] [facility] Specialist Cardiology - General 12/26/22 12/26/22 Matthew Rushing MD [address] [place] [address] [facility] Specialist Cardiology - General 01/02/23 01/02/23 Guerita Elliott PA-C [address] [address] [facility] Specialist Cardiothoracic Surgery 01/02/23 3 Guerita Elliott PA-C [address] [address] [facility] Specialist Cardiothoracic Surgery 01/09/23 3 Matthew Rushing MD [address] [place] [address] [facility] Specialist Cardiology - General 01/09/23 01/09/23 Matthew Rushing MD [address] [place] [address] [facility] Specialist Cardiology - General 01/16/23 01/16/23 Guerita Elliott PA-C [address] [place] [address] [facility] Specialist Cardiothoracic Surgery 01/16/23 3 Matthew Rushing MD [address] [place] [address] [facility] Specialist Cardiology - General 01/23/23 01/23/23 Guerita Elliott PA-C [address] [place] [address] [facility] Specialist Cardiothoracic Surgery 01/23/23 01/23/23 Matthew Rushing MD [address] [place] [address] [facility] Specialist Cardiology - General 01/30/23 01/30/23 Guerita Elliott PA-C [address] [place] [address] [facility] Specialist Cardiothoracic Surgery 01/30/23 3 Guerita Elliott PA-C [address] [place] [address] [facility] Specialist Cardiothoracic Surgery 02/06/23 3 Matthew Rushing MD [address] [place] [address] [facility] Specialist Cardiology - General 02/06/23 02/06/23 Matthew Rushing MD [address] [place] [address] [facility] Specialist Cardiology - General 02/13/23 02/13/23 Guerita Elliott PA-C [address] [address] [facility] Specialist Cardiothoracic Surgery 02/13/23 3 Guerita Elliott PA-C [address] [address] [facility] Specialist Cardiothoracic Surgery 02/20/23 02/20/23 Matthew Rushing MD [address] [place] [address] [facility] Specialist Cardiology - General 02/20/23 02/20/23 Matthew Rushing MD [address] [place] [address] [facility] Specialist Cardiology - General 02/27/23 02/27/23 Guerita Elliott PA-C [address] [address] [facility] Specialist Cardiothoracic Surgery 02/27/23 3 Matthew Rushing MD [address] [place] [address] [facility] Specialist Cardiology - General 03/06/23 03/06/23 Guerita Elliott PA-C [address] [address] [facility] Specialist Cardiothoracic Surgery 03/06/23 3 Matthew Rushing MD [address] [place] [address] [facility] Specialist Cardiology - General 03/13/23 03/13/23 Guerita Elliott PA-C [address] [facility] Specialist Cardiothoracic Surgery 03/13/23 3 Guerita Elliott PA-C [address] [address] [facility] Specialist Cardiothoracic Surgery 03/20/23 3 Matthew Rushing MD [address] [place] [address] [facility] Specialist Cardiology - General 03/20/23 03/20/23 Matthew Rushing MD [address] [place] [address] [facility] Specialist Cardiology - General 03/27/23 03/27/23 Guerita Elliott PA-C [address] [address] [facility] Specialist Cardiothoracic Surgery 03/27/23 3 Guerita Elliott PA-C [address] [address] [facility] Specialist Cardiothoracic Surgery 04/03/23 Matthew Rushing MD [address] [place], [place] [address] [facility] Specialist Cardiology - General 04/03/23 04/03/23 Guerita Elliott PA-C [address] [address] [facility] Specialist Cardiothoracic Surgery 04/10/23 Matthew Rushing MD [address] [place] [address] [facility] Specialist Cardiology - General 04/10/23 04/10/23 Matthew Rushing MD [address] [place] [address] [facility] Specialist Cardiology - General 04/17/23 04/17/23 Guerita Elliott PA-C [address] [facility] Specialist Cardiothoracic Surgery 04/17/23 Matthew Rushing MD [address] [place] [address] [facility] Specialist Cardiology - General 04/24/23 04/24/23 Guerita Elliott PA-C [address] [facility] Specialist Cardiothoracic Surgery 04/24/23 Matthew Rushing MD [address] [place] [address] [facility] Specialist Cardiology - General 05/01/23 05/01/23 Guerita Elliott PA-C [address] [address] [facility] Specialist Cardiothoracic Surgery 05/01/23 Guerita Elliott PA-C [address] [place] [address] [facility] Specialist Cardiothoracic Surgery 05/08/23 Matthew Rushing MD [address] [place] [address] [facility] Specialist Cardiology - General 05/08/23 05/08/23 Matthew Rushing MD [address] [place] [address] [facility] Specialist Cardiology - General 05/15/23 05/15/23 Guerita Elliott PA-C [address] [place] [address] [facility] Specialist Cardiothoracic Surgery 05/15/23 Matthew Rushing MD [address] [place] [address] [facility] Specialist Cardiology - General 05/22/23 05/22/23 Guerita Elliott PA-C [address] [address] [facility] Specialist Cardiothoracic Surgery 05/22/23 Matthew Rushing MD [address] [place] [address] [facility] Specialist Cardiology - General 05/29/23 05/29/23 Guerita Elliott PA-C [address] [facility] Specialist Cardiothoracic Surgery 05/29/23 Guerita Elliott PA-C [address] [address] [facility] Specialist Cardiothoracic Surgery 06/05/23 Matthew Rushing MD [address] [place] [address] [facility] Specialist Cardiology - General 06/05/23 06/05/23 Guerita Elliott PA-C [address] [facility] Specialist Cardiothoracic Surgery 06/12/23 Matthew Rushing MD [address] [place] [address] [facility] Specialist Cardiology - General 06/12/23 06/12/23 Guerita Elliott PA-C [address] [facility] Specialist Cardiothoracic Surgery 06/19/23 Matthew Rushing MD [address] [place] [address] [facility] Specialist Cardiology - General 06/19/23 06/19/23 Guerita Elliott PA-C [address] [place] [address] [facility] Specialist Cardiothoracic Surgery 06/26/23 06/26/23 Matthew Rushing MD [address] [place] [address] [facility] Specialist Cardiology - General 06/26/23 06/26/23 Guerita Elliott PA-C [address] [place] [address] [facility] Specialist Cardiothoracic Surgery 07/03/23 4 Matthew Rushing MD [address] [place] [address] [facility] Specialist Cardiology - General 07/03/23 07/03/23 Guerita Elliott PA-C [address] [place] [address] [facility] Specialist Cardiothoracic Surgery 07/10/23 4 Matthew Rushing MD [address] [place] [address] [facility] Specialist Cardiology - General 07/10/23 07/10/23 Matthew Rushing MD [address] [place] [address] [facility] Specialist Cardiology - General 07/17/23 07/17/23 Guerita Elliott PA-C [address] [facility] Specialist Cardiothoracic Surgery 07/17/23 Matthew Rushing MD [address] [place] [address] [facility] Specialist Cardiology - General 07/24/23 07/24/23 Guerita Elliott PA-C [address] [facility] Specialist Cardiothoracic Surgery 07/24/23 07/24/23 Matthew Rushing MD [address] [place] [address] [facility] Specialist Cardiology - General 07/31/23 07/31/23 Guerita Elliott PA-C [address] [address] [facility] Specialist Cardiothoracic Surgery 07/31/23 4 Guerita Elliott PA-C [address] [address] [facility] Specialist Cardiothoracic Surgery 08/07/23 4 Matthew Rushing MD [address] [place] [address] [facility] Specialist Cardiology - General 08/07/23 08/07/23 Guerita Elliott PA-C [address] [address] [facility] Specialist Cardiothoracic Surgery 08/14/23 4 Matthew Rushing MD [address] [place] [address] [facility] Specialist Cardiology - General 08/14/23 08/14/23 Matthew Rushing MD [address] [place] [address] [facility] Specialist Cardiology - General 08/21/23 08/21/23 Guerita Elliott PA-C [address] [place] [address] [facility] Specialist Cardiothoracic Surgery 08/21/23 08/21/23 Matthew Rushing MD [address] [place] [address] [facility] Specialist Cardiology - General 08/28/23 08/28/23 Guerita Elliott PA-C [address] [facility] Specialist Cardiothoracic Surgery 08/28/23 4 Guerita Elliott PA-C [address] [address] [facility] Specialist Cardiothoracic Surgery 09/04/23 4 Matthew Rushing MD [address] [place] [address] [facility] Specialist Cardiology - General 09/04/23 09/04/23 Matthew Rushing MD [address] [place] [address] [facility] Specialist Cardiology - General 09/11/23 09/11/23 Guerita Elliott PA-C [address] [address] [facility] Specialist Cardiothoracic Surgery 09/11/23 4 Matthew Rushing MD [address] [place] [address] [facility] Specialist Cardiology - General 09/18/23 09/18/23 Guerita Elliott PA-C [address] [place] [address] [facility] Specialist Cardiothoracic Surgery 09/18/23 4 Matthew Rushing MD [address] [place] [address] [facility] Specialist Cardiology - General 09/25/23 09/25/23 Guerita Elliott PA-C [address] [place] [address] [facility] Specialist Cardiothoracic Surgery 09/25/23 09/25/23 Matthew Rushing MD [address] [place] [address] [facility] Specialist Cardiology - General 10/02/23 10/02/23 Guerita Elliott PA-C [address] [facility] Specialist Cardiothoracic Surgery 10/02/23 4 Guerita Elliott PA-C [address] [facility] Specialist Cardiothoracic Surgery 10/09/23 4 Matthew Rushing MD [address] [place] [address] [facility] Specialist Cardiology - General 10/09/23 10/09/23 Matthew Rushing MD [address] [place] [address] [facility] Specialist Cardiology - General 10/16/23 10/16/23 Guerita Elliott PA-C [address] [address] [facility] Specialist Cardiothoracic Surgery 10/16/23 4 Matthew Rushing MD [address] [place] [address] [facility] Specialist Cardiology - General 10/23/23 10/23/23 Guerita Elliott PA-C [address] [facility] Specialist Cardiothoracic Surgery 10/23/23 10/23/23 Matthew Rushing MD [address] [place] [address] [facility] Specialist Cardiology - General 10/30/23 10/30/23 Guerita Elliott PA-C [address] [address] [facility] Specialist Cardiothoracic Surgery 10/30/23 4 Guerita Elliott PA-C [address] [facility] Specialist Cardiothoracic Surgery 11/06/23 4 Matthew Rushing MD [address] [place] [address] [facility] Specialist Cardiology - General 11/06/23 11/06/23 Matthew Rushing MD [address] [place] [address] [facility] Specialist Cardiology - General 11/13/23 11/13/23 Guerita Elliott PA-C [address] [address] [facility] Specialist Cardiothoracic Surgery 11/13/23 4 Guerita Elliott PA-C [address] [address] [facility] Specialist Cardiothoracic Surgery 11/20/23 11/20/23 Matthew Rushing MD [address] [place] [address] [facility] Specialist Cardiology - General 11/20/23 11/20/23 Guerita Elliott PA-C [address] [address] [facility] Specialist Cardiothoracic Surgery 11/27/23 11/27/23 Matthew Rushing MD [address] [place] [address] [facility] Specialist Cardiology - General 11/27/23 11/27/23 Guerita Elliott PA-C [address] [place] [address] [facility] Specialist Cardiothoracic Surgery 12/04/23 4 Matthew Rushing MD [address] [place] [address] [facility] Specialist Cardiology - General 12/04/23 12/04/23 Matthew Rushing MD [address] [place] [address] [facility] Specialist Cardiology - General 12/11/23 12/11/23 Guerita Elliott PA-C [address] [place] [address] [facility] Specialist Cardiothoracic Surgery 12/11/23 4 Guerita Elliott PA-C [address] [place] [address] [facility] Specialist Cardiothoracic Surgery 12/18/23 4 Matthew Rushing MD [address] [place] [address] [facility] Specialist Cardiology - General 12/18/23 12/18/23 Guerita Elliott PA-C [address] [address] [facility] Specialist Cardiothoracic Surgery 12/25/23 12/25/23 Matthew Rushing MD [address] [place] [address] [facility] Specialist Cardiology - General 12/25/23 12/25/23 Guerita Elliott PA-C [address] [place] [address] [facility] Specialist Cardiothoracic Surgery 01/01/24 4 Matthew Rushing MD [address] [place] [address] [facility] Specialist Cardiology - General 01/01/24 01/01/24 Guerita Elliott PA-C [address] [place] [address] [facility] Specialist Cardiothoracic Surgery 01/08/24 4 Matthew Rushing MD [address] [place] [address] [facility] Specialist Cardiology - General 01/08/24 01/08/24 Guerita Elliott PA-C [address] [place] [address] [facility] Specialist Cardiothoracic Surgery 01/15/24 4 Matthew Rushing MD [address] [place] [address] [facility] Specialist Cardiology - General 01/15/24 01/15/24 Matthew Rushing MD [address] [place] [address] [facility] Specialist Cardiology - General 01/22/24 01/22/24 Guerita Elliott PA-C [address] [address] [facility] Specialist Cardiothoracic Surgery 01/22/24 01/22/24 Guerita Elliott PA-C [address] [place] [address] [facility] Specialist Cardiothoracic Surgery 01/29/24 4 Matthew Rushing MD [address] [place] [address] [facility] Specialist Cardiology - General 01/29/24 01/29/24 Matthew Rushing MD [address] [place] [address] [facility] Specialist Cardiology - General 02/05/24 02/05/24 Guerita Elliott PA-C [address] [place] [address] [facility] Specialist Cardiothoracic Surgery 02/05/24 4 Matthew Rushing MD [address] [place] [address] [facility] Specialist Cardiology - General 02/12/24 02/12/24 Guerita Elliott PA-C [address] [address] [facility] Specialist Cardiothoracic Surgery 02/12/24 4 Guerita Elliott PA-C [address] [address] [facility] Specialist Cardiothoracic Surgery 02/19/24 02/19/24 Matthew Rushing MD [address] [place] [address] [facility] Specialist Cardiology - General 02/19/24 02/19/24 Matthew Rushing MD [address] [place] [address] [facility] Specialist Cardiology - General 02/26/24 02/26/24 Guerita Elliott PA-C [address] [address] [facility] Specialist Cardiothoracic Surgery 02/26/24 02/26/24 Guerita Elliott PA-C [address] [facility] Specialist Cardiothoracic Surgery 03/04/24 4 Matthew Rushing MD [address] [place] [address] [facility] Specialist Cardiology - General 03/04/24 03/04/24 Guerita Elliott PA-C [address] [address] [facility] Specialist Cardiothoracic Surgery 03/11/24 4 Matthew Rushing MD [address] [place] [address] [facility] Specialist Cardiology - General 03/11/24 03/11/24 Matthew Rushing MD [address] [place] [address] [facility] Specialist Cardiology - General 03/18/24 03/18/24 Guerita Elliott PA-C [address] [facility] Specialist Cardiothoracic Surgery 03/18/24 4 Matthew Rushing MD [address] [place] [address] [facility] Specialist Cardiology - General 03/25/24 03/25/24 Guerita Elliott PA-C [address] [address] [facility] Specialist Cardiothoracic Surgery 03/25/24 4 documented as of this encounter
--- OUTSIDE RECORDS SUMMARY | 2024-06-24 04:36 | XMS_ITS | Encounter Summary ---
Author Organization [facility] alth Address [address] [facility] [address] Care Team Providers Care Field Education Director Name Role Phone Kilo Wang MD Unavailable [phone] Juan Haddad MD Unavailable [phone] Dasha Sheppard PA-C Primary Care Provider Trey Jennings MD Unavailable [phone] Guerita Elliott-C Unavailable +[phone] Matthew Rushing MD Unavailable [phone] Matthew Rushing MD Unavailable +[phone] Matthew Rushing MD Unavailable +[phone] Matthew Rushing MD Unavailable +[phone] Matthew Rushing MD Unavailable +[phone] Mathtew Rushing MD Unavailable +[phone] Matthew Rushing MD Unavailable +[phone] Matthew Rushing MD Unavailable +[phone] Matthew Rushing MD Unavailable +[phone] Matthew Rushing MD Unavailable +[phone] Matthew Rushing MD Unavailable +[phone] Matthew Rushing MD Unavailable +[phone] Matthew Rushing MD Unavailable +[phone] Matthew Rushing MD Unavailable +[phone] Trey Jennings MD Unavailable +4 -5 Guerita Elliott PA-C Unavailable +4 -5 Matthew Rushing MD Unavailable +[phone] Guerita Elliott J PA-C Unavailable +4 -5 Matthew Rushing MD Unavailable +[phone] Matthew Rsuhing MD Unavailable +[phone] Guerita Elliott PA-C Unavailable +4 -5 Guerita Elliott PA-C Unavailable +4 [phone] Matthew Rushing MD Unavailable +[phone] Guerita Elliott PA-C Unavailable +4 -5 Matthew Rushing MD Unavailable Matthew Rushing MD Unavailable +[phone] Guerita Elliott PA-C Unavailable +4 -5 Matthew Rushing MD Unavailable +[phone] Guerita Elliott PA-C Unavailable +4 [phone] Matthew Rsuhing MD Unavailable +[phone] Guerita Elliott PA-C Unavailable +4 -[phone] Guerita Elliott PA-C Unavailable +[phone] Matthew Rushing MD Unavailable +[phone] Guerita Elliott PA-C Unavailable +4 -4995 Matthew Rushing MD Unavailable +[phone] Guerita Elliott PA-C Unavailable +[phone] Matthew Rushing MD Unavailable +[phone] Earl, Guerita J PA-C Unavailable +4 -5 Matthew Rushing MD Unavailable +[phone] Matthew Rushing MD Unavailable +[phone] Guerita Elliott PA-C Unavailable +4 [phone] Matthew Rushing MD Unavailable +[phone] Guerita Elliott J PA-C Unavailable +4 -4995 Guerita Elliott J PA-C Unavailable +4 -4995 Matthew Rushing MD Unavailable +[phone] Matthew Rushing MD Unavailable +[phone] Guerita Elliott J PA-C Unavailable +4 -[phone] Guerita Elliott Kim PA-C Unavailable +[phone] Matthew Rushing MD Unavailable +[phone] Matthew Rushing MD Unavailable +[phone] Guerita Elliott Kim PA-C Unavailable +[phone] Guerita Elliott Kim PA-C Unavailable +4 -4995 Matthew Rushing MD Unavailable +[phone] Matthew Rushing MD Unavailable +[phone] Guerita Elliott Kim PA-C Unavailable +4 -4995 FaunsdaleLilli pinoher Alvarez PA-C Unavailable +[phone] Matthew Rushing MD Unavailable +[phone] Matthew Rushing MD Unavailable Guerita Elliott J PA-C Unavailable +4 -4995 EarlLilliGuerita J PA-C Unavailable +[phone] Matthew Rushing MD Unavailable +[phone] Guerita Elliott Kim PA-C Unavailable +[phone] Matthew Rushing MD Unavailable Matthew Rushing MD Unavailable +[phone] Earl Guerita J PA-C Unavailable +4 -5 Lilli Elliotther J PA-C Unavailable +4 -4995 Matthew Rushing MD Unavailable +[phone] Matthew Rushing MD Unavailable +[phone] Earl Guerita J PA-C Unavailable +4 -4995 Earl Guerita J PA-C Unavailable +4 -4995 Matthew Rushing MD Unavailable Matthew Rushing MD Unavailable +[phone] Guerita Elliott PA-C Unavailable +4 -5 Matthew Rushing MD Unavailable +[phone] EarlGuerita J PA-C Unavailable +4 -4995 Matthew Rushing MD Unavailable +[phone] FaunsdaleGuerita pino J PA-C Unavailable +4 -4995 Guerita Elliott J PA-C Unavailable +4 -4995 Matthew Rushing MD Unavailable +[phone] Matthew Rushing MD Unavailable +[phone] Guerita Elliott J PA-C Unavailable +4 -4995 FaunsdaleGuerita pino J PA-C Unavailable +[phone] Matthew Rushing MD Unavailable +[phone] Matthew Rushing MD Unavailable +[phone] Lilli Elliotther J PA-C Unavailable +[phone] Matthew Rushing MD Unavailable +[phone] Guerita Elliott PA-C Unavailable +4 -4995 Matthew Rushing MD Unavailable +[phone] Lilli Elliotther Alvarez PA-C Unavailable +4 -5 Earl Guerita J PA-C Unavailable +4 -5 Matthew Rushing MD Unavailable +[phone] Matthew Rushing MD Unavailable +[phone] Earl Guerita J PA-C Unavailable +4 -4995 Earl Guerita J PA-C Unavailable +[phone] Matthew Rushing MD Unavailable +[phone] Earl Guerita Alvarez PA-C Unavailable +4 -5 Matthew Rushing MD Unavailable +[phone] Matthew Rushing MD Unavailable +[phone] Earl Guerita Alvarez PA-C Unavailable +4 -5 Matthew Rushing MD Unavailable +[phone] Earl Guerita Alvarez PA-C Unavailable +[phone] Matthew Rushing MD Unavailable +[phone] Guerita Elliott PA-C Unavailable +4 -4995 Guerita Elliott PA-C Unavailable +[phone] Matthew Rushing MD Unavailable +[phone] Matthew Rushing MD Unavailable +[phone] Guerita Elliott PA-C Unavailable +[phone] Matthew Rushing MD Unavailable +[phone] Guerita Elliott PA-C Unavailable +4 -4995 Matthew Rushing MD Unavailable +[phone] Guerita Elliott PA-C Unavailable +[phone] Guerita Elliott PA-C Unavailable +544 [phone] Matthew Rushing MD Unavailable +[phone] Guerita Elliott-C Unavailable +4 -4995 Matthew Rushing MD Unavailable +[phone] Guerita Elliott PA-C Unavailable +4 -4995 Matthew Rushing MD Unavailable +[phone] Guerita Elliott PA-C Unavailable +4 -4995 Matthew Rushing MD Unavailable +[phone] Guerita Elliott-C Unavailable +[phone] Matthew Rushing MD Unavailable +[phone] Guerita Elliott PA-C Unavailable +[phone] Matthew Rushing MD Unavailable +[phone] Txfr Provider [facility], Temporary Primary Care Provider Matthew Rushing MD Unavailable +[phone] Guerita Elliott-C Unavailable +[phone] Matthew Rushing MD Unavailable +[phone] Guerita Elliott PA-C Unavailable +4 -4995 Matthew Rushing MD Unavailable +[phone] Guerita Elliott-C Unavailable +4 -4995 Guerita Elliott PA-C Unavailable +[phone] Matthew Rushing MD Unavailable +[phone] Guerita Elliott-C Unavailable +[phone] Matthew Rushing MD Unavailable +[phone] Matthew Rushing MD Unavailable +[phone] Guerita Elliott-C Unavailable +[phone] Matthew Rushing MD Unavailable +[phone] Guerita Elliott PA-C Unavailable +4 -5 Guerita Elliott Kim PA-C Unavailable +4 -499 Matthew Rushing MD Unavailable +[phone] Matthew Rushing MD Unavailable +[phone] Guerita Elliott Kim PA-C Unavailable +4 -4995 Matthew Rushing MD Unavailable +[phone] Guerita Elliott PA-C Unavailable +[phone] Matthew Rushing MD Unavailable +[phone] Guerita Elliott PA-C Unavailable +4 -4995 Matthew Rushing MD Unavailable +[phone] Guerita Elliott PA-C Unavailable +4 -4995 Guerita Elliott J PA-C Unavailable +4 -4995 Matthew Rushing MD Unavailable +[phone] Matthew Rushing MD Unavailable Guerita Elliott Kim PA-C Unavailable +4 -4995 Matthew Rushing MD Unavailable +[phone] Guerita Elliott Kim PA-C Unavailable +4 -4995 Matthew Rushing MD Unavailable +[phone] Guerita Elliott PA-C Unavailable +4 -4995 Guerita Elliott Kim PA-C Unavailable +[phone] Matthew Rushing MD Unavailable +[phone] Matthew Rushing MD Unavailable +[phone] Guerita Elliott J PA-C Unavailable +4 -4995 EarlGuerita Kim PA-C Unavailable +4 -4995 Matthew Rushing MD Unavailable +[phone] Guerita Elliott PA-C Unavailable +4 -4995 Matthew Rushing MD Unavailable +[phone] Guerita Elliott PA-C Unavailable +4 -4995 Matthew Rushing MD Unavailable +[phone] Matthew Rushing MD Unavailable Guerita Elliott PA-C Unavailable +[phone] Matthew Del Toro MD Primary Care Provider [phone] Guerita Elliott PA-C Unavailable +[phone] Matthew Rushing MD Unavailable +[phone] Guerita Elliott PA-C Unavailable +[phone] Matthew Rushing MD Unavailable +[phone] Guerita Elliott PA-C Unavailable +[phone] Matthew Rushing MD Unavailable +[phone] Guerita Elliott PA-C Unavailable +[phone] Matthew Rushing MD Unavailable +[phone] Guerita Elliott PA-C Unavailable +[phone] Matthew Rushing MD Unavailable +[phone] Matthew Rushing MD Unavailable +[phone] Guerita Elliott PA-C Unavailable +[phone] Guerita Elliott PA-C Unavailable +[phone] Matthew Rushing MD Unavailable +[phone] Matthew Rushing MD Unavailable +[phone] Guerita Elliott PA-C Unavailable +[phone] Matthew Rushing MD Unavailable Guerita Elliott PA-C Unavailable +[phone] Guerita Elliott PA-C Unavailable Matthew Rushing MD Unavailable +[phone] Matthew Rushing MD Unavailable +[phone] Guerita Elliott PA-C Unavailable +[phone] Guerita Elliott PA-C Unavailable Matthew Rushing MD Unavailable +[phone] Guerita Elliott PA-C Unavailable Matthew Rushing MD Unavailable +[phone] Matthew Rushing MD Unavailable +[phone] Guerita Elliott PA-C Unavailable +[phone] Matthew Rushing MD Unavailable +[phone] Guerita Elliott PA-C Unavailable [phone] Reason for Visit * Reason Onset Date Comments Prior Authorization 08/29/2020 Encounter Details Date Type Department Care Team (Late st Contact Info) Description 08/29/2020 Telephone [facility] Line [address] [facility], [address] [place] [address] Dasha Sheppard PA-C [address] [place] [phone] Prior Authorization Social History Tobacco Use Types [...] and Family Not on file 09/30/2020 Attends Conf[employer]ianist Services Not on file 09/30 Active Member [...] Telephone Encounter - Dasha Sheppard PA-C - 08/29/2020 3:20 PM EST Thank you so much for your help * Telephone Encounter - Phi Gallegos - 08/29/2020 3:06 PM EST Received Auth. Patient is scheduled at 8 pm at the [facility]. 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 * Telephone Encounter - Phi Gallegos - 08/29/2020 2:36 PM EST Can be anywhere from a few hours up to 3 or 4 days. It really depends on how the insurance company looks at it. * Telephone Encounter - Dasha Sheppard PA-C - 08/29/2020 10:25 AM EST Patient can wait for now - what is the normal turnaround time for a response after faxing clinical * Telephone Encounter - Paula Cano - 08/29/2020 9:[address] Abdomen & Pelvis ordered did not automatically approve. Faxed clinical. Should patient wait or go to ER. documented in this encounter Plan of Treatment [...] documented as of this encounter Care Teams Field Education Director Relationship Specialty Start Date End Date Dasha Sheppard PA-C [address] [place] [address] PCP - General Family Practice 04/12/18 07/10/23 Txfr Provider Family Medicine [facility], Temporary [address] [facility] [address] [place] [address] PCP - General Family Practice 07/11/23 12/11/23 Matthew Del Toro MD [address] [facility] [address] [place] [address] PCP - General Family Practice 12/12/23 Kilo Wang MD Consulting Physician Neurology 08/30/16 12/01/21 Juan Haddad MD [address] [place] [address] Otolaryngology 09/23/17 Trey Jennings MD [address] [place] [address] [address] [place] [address] Consulting Physician Cardiothoracic Surgery 07/13/21 Guerita Elliott PA-C [address] [place] [address] [address] [place] [address] [facility] Specialist Cardiothoracic Surgery 01/03/22 06/27/22 Matthew Rushing MD [address] [place] [address] [facility] Specialist Cardiology - General 03/07/22 03/28/22 Matthew Rushing MD [address] [place] [address] [facility] Specialist Cardiology - General 04/04/22 04/04/22 Matthew Rushing MD [address] [place] [address] [facility] Specialist Cardiology - General 04/11/22 04/11/22 Matthew Rushing MD [address] [place] [address] [facility] Specialist Cardiology - General 04/18/22 04/18/22 Matthew Rushing MD [address] [place] [address] [facility] Specialist Cardiology - General 04/25/22 04/25/22 Matthew Rushing MD [address] [place] [address] [facility] Specialist Cardiology - General 05/02/22 05/02/22 Matthew Rushing MD [address] [place] [address] 51047 [facility] Specialist Cardiology - General 05/09/22 05/09/22 Matthew Rushing MD [address] [place] [address] [facility] Specialist Cardiology - General 05/16/22 05/16/22 Matthew Rushing MD [address] [place] [address] 324[address] [facility] Specialist Cardiology - General 05/23/22 05/23/22 Matthew Rushing MD [address] [place] [address] [facility] Specialist Cardiology - General 05/30/22 05/30/22 Matthew Rushing MD [address] [place] [address] 39450 [facility] Specialist Cardiology - General 06/06/22 06/06/22 Matthew Rushing MD [address] [place] [address] 8[address] [facility] Specialist Cardiology - General 06/13/22 06/13/22 Matthew Rushing MD [address] [place] [address] [facility] Specialist Cardiology - General 06/20/22 06/20/22 Matthew Rushing MD [address] [place] [address] [facility] Specialist Cardiology - General 06/27/22 06/27/22 Trey Jennings MD [address] [place] [address] [facility] Specialist Cardiothoracic Surgery 06/27/22 Guerita Elliott PA-C [address] [address] [facility] Specialist Cardiothoracic Surgery 07/04/22 3 Matthew Rushing MD [address] [place] [address] [facility] Specialist Cardiology - General 07/04/22 07/04/22 Guerita Elliott PA-C [address] [address] [facility] Specialist Cardiothoracic Surgery 07/11/22 3 Matthew Rushing MD [address] [place] [address] [facility] Specialist Cardiology - General 07/11/22 07/11/22 Matthew Rushing MD [address] [place] [address] [facility] Specialist Cardiology - General 07/18/22 07/18/22 Guerita Elliott PA-C [address] [address] [facility] Specialist Cardiothoracic Surgery 07/18/22 3 Guerita Elliott PA-C [address] [address] [facility] Specialist Cardiothoracic Surgery 07/25/22 07/25/22 Matthew Rushing MD [address] [place] [address]24[address] [facility] Specialist Cardiology - General 07/25/22 07/25/22 Guerita Elliott PA-C [address] [address] [facility] Specialist Cardiothoracic Surgery 08/01/22 3 Matthew Rushing MD [address] [place] [address] [facility] Specialist Cardiology - General 08/01/22 08/01/22 Matthew Rushing MD [address] [place] [address] 446[address] [facility] Specialist Cardiology - General 08/08/22 08/08/22 Guerita Elliott PA-C [address] [place] [address] [facility] Specialist Cardiothoracic Surgery 08/08/22 3 Matthew Rushing MD [address] [place] [address] [facility] Specialist Cardiology - General 08/15/22 08/15/22 Guerita Elliott PA-C [address] [place] [address] [facility] Specialist Cardiothoracic Surgery 08/15/22 3 Matthew Rushing MD [address] [place] [address] [facility] Specialist Cardiology - General 08/22/22 08/22/22 Guerita Elliott PA-C [address] [place] [address] [facility] Specialist Cardiothoracic Surgery 08/22/22 08/22/22 Guerita Elliott PA-C [address] [address] [facility] Specialist Cardiothoracic Surgery 08/29/22 3 Matthew Rushing MD [address] [place] [address] [facility] Specialist Cardiology - General 08/29/22 08/29/22 Guerita Elliott PA-C [address] [place] [address] [facility] Specialist Cardiothoracic Surgery 09/05/22 3 Matthew Rushing MD [address] [place] [address] [facility] Specialist Cardiology - General 09/05/22 09/05/22 Guerita Elliott PA-C [address] [place] [address] [facility] Specialist Cardiothoracic Surgery 09/12/22 3 Matthew Rushing MD [address] [place] [address] [facility] Specialist Cardiology - General 09/12/22 09/12/22 Guerita Elliott PA-C [address] [place] [address] [facility] Specialist Cardiothoracic Surgery 09/19/22 09/19/22 Matthew Rushing MD [address] [place] [address] 487[address] [facility] Specialist Cardiology - General 09/19/22 09/19/22 Matthew Rushing MD [address] [place] [address] [facility] Specialist Cardiology - General 09/26/22 09/26/22 Guerita Elliott PA-C [address] [place] [address] [facility] Specialist Cardiothoracic Surgery 09/26/22 09/26/22 Matthew Rushing MD [address] [place] [address] [facility] Specialist Cardiology - General 10/03/22 10/03/22 Guerita lEliott PA-C [address] [address] [facility] Specialist Cardiothoracic Surgery 10/03/22 3 Guerita Elliott PA-C [address] [address] [facility] Specialist Cardiothoracic Surgery 10/10/22 3 Matthew Ruhsing MD [address] [place] [address] [facility] Specialist Cardiology - General 10/10/22 10/10/22 Matthew Rushing MD [address] [place] [address] [facility] Specialist Cardiology - General 10/17/22 10/17/22 Guerita Elliott PA-C [address] [address] [facility] Specialist Cardiothoracic Surgery 10/17/22 3 Guerita Elliott PA-C [address] [address] [facility] Specialist Cardiothoracic Surgery 10/24/22 10/24/22 Matthew Rushing MD [address] [place] [address] [facility] Specialist Cardiology - General 10/24/22 10/24/22 Matthew Rushing MD [address] [place] [address] 164[address] [facility] Specialist Cardiology - General 10/31/22 10/31/22 Guerita Elliott PA-C [address] [address] [facility] Specialist Cardiothoracic Surgery 10/31/22 3 Guerita Elliott PA-C [address] [address] [facility] Specialist Cardiothoracic Surgery 11/07/22 3 Matthew Rushing MD [address] [place] [address] [facility] Specialist Cardiology - General 11/07/22 11/07/22 Matthew Rushing MD [address] [place] [address] [facility] Specialist Cardiology - General 11/14/22 11/14/22 Guerita Elliott PA-C [address] [place] [address] [facility] Specialist Cardiothoracic Surgery 11/14/22 3 Guerita Elliott PA-C [address] [place] [address] [facility] Specialist Cardiothoracic Surgery 11/21/22 11/21/22 Matthew Rushing MD [address] [place] [address], [place] [address] [facility] Specialist Cardiology - General 11/21/22 11/21/22 Matthew Rushing MD [address] [place] [address] [facility] Specialist Cardiology - General 11/28/22 11/28/22 Guerita Elliott PA-C [address] [place] [address] [facility] Specialist Cardiothoracic Surgery 11/28/22 3 Guerita Elliott PA-C [address] [place] [address] [facility] Specialist Cardiothoracic Surgery 12/05/22 3 Matthew Rushing MD [address] [place] [address] [facility] Specialist Cardiology - General 12/05/22 12/05/22 Guerita Elliott PA-C [address] [place] [address] [facility] Specialist Cardiothoracic Surgery 12/12/22 3 Matthew Rushing MD [address] [place] [address] [facility] Specialist Cardiology - General 12/12/22 12/12/22 Matthew Rushing MD [address] [place] [address] [facility] Specialist Cardiology - General 12/19/22 12/19/22 Guerita Elliott PA-C [address] [place] [address] [facility] Specialist Cardiothoracic Surgery 12/19/22 12/19/22 Guerita Elliott PA-C [address] [place] [address] [facility] Specialist Cardiothoracic Surgery 12/26/22 12/26/22 Matthew Rushing MD [address] [place] [address] [facility] Specialist Cardiology - General 12/26/22 12/26/22 Matthew Rushing MD [address] [place] [address] [facility] Specialist Cardiology - General 01/02/23 01/02/23 Guerita Elliott PA-C [address] [place] [address] [facility] Specialist Cardiothoracic Surgery 01/02/23 3 Guerita Elliott PA-C [address] [address] [facility] Specialist Cardiothoracic Surgery 01/09/23 3 Matthew Rushing MD [address] [place] [address] [facility] Specialist Cardiology - General 01/09/23 01/09/23 Matthew Rushing MD [address] [place] [address] 16[address] [facility] Specialist Cardiology - General 01/16/23 01/16/23 Guerita Elliott PA-C [address] [address] [facility] Specialist Cardiothoracic Surgery 01/16/23 3 Matthew Rushing MD [address] [place] [address] [facility] Specialist Cardiology - General 01/23/23 01/23/23 Guerita Elliott PA-C [address] [address] [facility] Specialist Cardiothoracic Surgery 01/23/23 01/23/23 Matthew Rushing MD [address] [place] [address] [facility] Specialist Cardiology - General 01/30/23 01/30/23 Guerita Elliott PA-C [address] [address] [facility] Specialist Cardiothoracic Surgery 01/30/23 3 Guerita Elliott PA-C [address] [address] [facility] Specialist Cardiothoracic Surgery 02/06/23 3 Matthew Rushing MD [address] [place] [address] [facility] Specialist Cardiology - General 02/06/23 02/06/23 Matthew Rushing MD [address] [place] [address] [facility] Specialist Cardiology - General 02/13/23 02/13/23 Guerita Elliott PA-C [address] [address] [facility] Specialist Cardiothoracic Surgery 02/13/23 3 Guerita Elliott PA-C [address] [address] [facility] Specialist Cardiothoracic Surgery 02/20/23 02/20/23 Matthew Rushing MD [address] [place] [address] [facility] Specialist Cardiology - General 02/20/23 02/20/23 Matthew Rushing MD [address] [place] [address] [facility] Specialist Cardiology - General 02/27/23 02/27/23 Guerita Elliott PA-C [address] [address] [facility] Specialist Cardiothoracic Surgery 02/27/23 3 Matthew Rushing MD [address] [place] [address] [facility] Specialist Cardiology - General 03/06/23 03/06/23 Guerita Elliott PA-C [address] [address] [facility] Specialist Cardiothoracic Surgery 03/06/23 3 Matthew Rushing MD [address] [place] [address] [facility] Specialist Cardiology - General 03/13/23 03/13/23 Guerita Elliott PA-C [address] [address] [facility] Specialist Cardiothoracic Surgery 03/13/23 3 Guerita Elliott PA-C [address] [address] [facility] Specialist Cardiothoracic Surgery 03/20/23 3 Matthew Rushing MD [address] [place] [address] [facility] Specialist Cardiology - General 03/20/23 03/20/23 Matthew Rushing MD [address] [place] [address] [facility] Specialist Cardiology - General 03/27/23 03/27/23 Guerita Elliott PA-C [address] [address] [facility] Specialist Cardiothoracic Surgery 03/27/23 3 Guerita Elliott PA-C [address] [address] [facility] Specialist Cardiothoracic Surgery 04/03/23 Matthew Rushing MD [address] [place] [address] 22893 [facility] Specialist Cardiology - General 04/03/23 04/03/23 Guerita Elliott PA-C [address] [place] [address] [facility] Specialist Cardiothoracic Surgery 04/10/23 Matthew Rushing MD [address] [place] [address] 78[address] [facility] Specialist Cardiology - General 04/10/23 04/10/23 Matthew Rushing MD [address] [place] [address] [facility] Specialist Cardiology - General 04/17/23 04/17/23 Guerita Elliott PA-C [address] [address] [facility] Specialist Cardiothoracic Surgery 04/17/23 Matthew Rushing MD [address] [place] [address] 45983 [facility] Specialist Cardiology - General 04/24/23 04/24/23 Guerita Elliott PA-C [address] [address] [facility] Specialist Cardiothoracic Surgery 04/24/23 3 Matthew Rushing MD [address] [place] [address] [facility] Specialist Cardiology - General 05/01/23 05/01/23 Guerita Elloitt PA-C [address] [address] [facility] Specialist Cardiothoracic Surgery 05/01/23 Guerita Elliott PA-C [address] [address] [facility] Specialist Cardiothoracic Surgery 05/08/23 Matthew Rushing MD [address] [place] [address] 77[address] [facility] Specialist Cardiology - General 05/08/23 05/08/23 Matthew Rushing MD [address] [place] [address] 9[address] [facility] Specialist Cardiology - General 05/15/23 05/15/23 Guerita Elliott PA-C [address] [address] [facility] Specialist Cardiothoracic Surgery 05/15/23 Matthew Rushing MD [address] [place] [address] [facility] Specialist Cardiology - General 05/22/23 05/22/23 Guerita Elliott PA-C [address] [address] [facility] Specialist Cardiothoracic Surgery 05/22/23 3 Matthew Rushing MD [address] [place] [address] [facility] Specialist Cardiology - General 05/29/23 05/29/23 Guerita Elliott PA-C [address] [address] [facility] Specialist Cardiothoracic Surgery 05/29/23 Guerita Elliott PA-C [address] [address] [facility] Specialist Cardiothoracic Surgery 06/05/23 Matthew Rushing MD [address] [place] [address] 49814 [facility] Specialist Cardiology - General 06/05/23 06/05/23 Guerita Elliott PA-C [address] [address] [facility] Specialist Cardiothoracic Surgery 06/12/23 Matthew Rushing MD [address] [place] [address] 41151 [facility] Specialist Cardiology - General 06/12/23 06/12/23 Guerita Elliott PA-C [address] [address] [facility] Specialist Cardiothoracic Surgery 06/19/23 Matthew Rushing MD [address] [place] [address] 133[address] [facility] Specialist Cardiology - General 06/19/23 06/19/23 Guerita Elliott PA-C [address] [place] [address] [facility] Specialist Cardiothoracic Surgery 06/26/23 06/26/23 Matthew Rushing MD [address] [place] [address] 28[address] [facility] Specialist Cardiology - General 06/26/23 06/26/23 Guerita Elliott PA-C [address] [place] [address] [facility] Specialist Cardiothoracic Surgery 07/03/23 4 Matthew Rushing MD [address] [place] [address] 30829 [facility] Specialist Cardiology - General 07/03/23 07/03/23 Guerita Elliott PA-C [address] [place] [address] 41807 [facility] Specialist Cardiothoracic Surgery 07/10/23 4 Matthew Rushing MD [address] [place] [address] 86[address] [facility] Specialist Cardiology - General 07/10/23 07/10/23 Matthew Rushing MD [address] [place] [address] 17084 [facility] Specialist Cardiology - General 07/17/23 07/17/23 Guerita Elliott PA-C [address] [address] [facility] Specialist Cardiothoracic Surgery 07/17/23 4 Matthew Rushing MD [address] [place] [address] 19[address] [facility] Specialist Cardiology - General 07/24/23 07/24/23 Guerita Elliott PA-C [address] [address] [facility] Specialist Cardiothoracic Surgery 07/24/23 07/24/23 Matthew Rushing MD [address] [place] [address] 99[address] [facility] Specialist Cardiology - General 07/31/23 07/31/23 Guerita Elliott PA-C [address] [address] [facility] Specialist Cardiothoracic Surgery 07/31/23 4 Guerita Elliott PA-C [address] [address] [facility] Specialist Cardiothoracic Surgery 08/07/23 4 Matthew Rushing MD [address] [place] [address] 50068 [facility] Specialist Cardiology - General 08/07/23 08/07/23 Guerita Elliott PA-C [address] [address] [facility] Specialist Cardiothoracic Surgery 08/14/23 4 Matthew Rushing MD [address] [place] [address] 16690 [facility] Specialist Cardiology - General 08/14/23 08/14/23 Matthew Rushing MD [address] [place] [address] 60[address] [facility] Specialist Cardiology - General 08/21/23 08/21/23 Guerita Elliott PA-C [address] [address] [facility] Specialist Cardiothoracic Surgery 08/21/23 08/21/23 Matthew Rushing MD [address] [place] [address] 63[address] [facility] Specialist Cardiology - General 08/28/23 08/28/23 Guerita Elliott PA-C [address] [address] [facility] Specialist Cardiothoracic Surgery 08/28/23 4 Guerita Elliott PA-C [address] [address] [facility] Specialist Cardiothoracic Surgery 09/04/23 4 Matthew Rushing MD [address] [place] [address] 19227 [facility] Specialist Cardiology - General 09/04/23 09/04/23 Matthew Rushing MD [address] [place] [address] 667[address] [facility] Specialist Cardiology - General 09/11/23 09/11/23 Guerita lEliott PA-C [address] [place] [address] 21583 [facility] Specialist Cardiothoracic Surgery 09/11/23 4 Matthew Rushing MD [address] [place] [address] 9[address]62 [facility] Specialist Cardiology - General 09/18/23 09/18/23 Guerita Elliott PA-C [address] [place] [address] 9[address]72 [facility] Specialist Cardiothoracic Surgery 09/18/23 4 Matthew Rushing MD [address] [place] [address] 17394 [facility] Specialist Cardiology - General 09/25/23 09/25/23 Guerita Elliott PA-C [address] [address] [facility] Specialist Cardiothoracic Surgery 09/25/23 09/25/23 Matthew Rushing MD [address] [place] [address] 01504 [facility] Specialist Cardiology - General 10/02/23 10/02/23 Guerita Elliott PA-C [address] [address] [facility] Specialist Cardiothoracic Surgery 10/02/23 4 Guerita Elliott PA-C [address] [address] [facility] Specialist Cardiothoracic Surgery 10/09/23 4 Matthew Rushing MD [address] [place] [address] 43949 [facility] Specialist Cardiology - General 10/09/23 10/09/23 Matthew Rushing MD [address] [place] [address] 66025 [facility] Specialist Cardiology - General 10/16/23 10/16/23 Guerita Elliott PA-C [address] [address] [facility] Specialist Cardiothoracic Surgery 10/16/23 4 Matthew Rushing MD [address] [place] [address] 61047 [facility] Specialist Cardiology - General 10/23/23 10/23/23 Guerita Elliott PA-C [address] [address] [facility] Specialist Cardiothoracic Surgery 10/23/23 10/23/23 Matthew Rushing MD [address] [place] [address] 41058 [facility] Specialist Cardiology - General 10/30/23 10/30/23 Guerita Elliott PA-C [address] [address] [facility] Specialist Cardiothoracic Surgery 10/30/23 4 Guerita Elliott PA-C [address] [address] [facility] Specialist Cardiothoracic Surgery 11/06/23 4 Matthew Rushing MD [address] [place] [address] 22559 [facility] Specialist Cardiology - General 11/06/23 11/06/23 Matthew Rushing MD [address] [place] [address] 18742 [facility] Specialist Cardiology - General 11/13/23 11/13/23 Guerita Elliott PA-C [address] [address] [facility] Specialist Cardiothoracic Surgery 11/13/23 4 Guerita Elliott PA-C [address] [address] [facility] Specialist Cardiothoracic Surgery 11/20/23 11/20/23 Matthew Rushing MD [address] [place] [address] 49458 [facility] Specialist Cardiology - General 11/20/23 11/20/23 Guerita Elliott PA-C [address] [address] [facility] Specialist Cardiothoracic Surgery 11/27/23 11/27/23 Matthew Rushing MD [address] [place] [address] 86781 [facility] Specialist Cardiology - General 11/27/23 11/27/23 Guerita Elliott PA-C [address] [place] [address] 17840 [facility] Specialist Cardiothoracic Surgery 12/04/23 4 Matthew Rushing MD [address] [place] [address] 79988 [facility] Specialist Cardiology - General 12/04/23 12/04/23 Matthew Rushing MD [address] [place] [address] 96223 [facility] Specialist Cardiology - General 12/11/23 12/11/23 Guerita Elliott PA-C [address] [address] [facility] Specialist Cardiothoracic Surgery 12/11/23 4 Guerita Elliott PA-C [address] [address] [facility] Specialist Cardiothoracic Surgery 12/18/23 4 Matthew Rushing MD [address] [place] [address] 02697 [facility] Specialist Cardiology - General 12/18/23 12/18/23 Geurita Elliott PA-C [address] [place] [address] 86765 [facility] Specialist Cardiothoracic Surgery 12/25/23 12/25/23 Matthew Rushing MD [address] [place] [address] 70510 [facility] Specialist Cardiology - General 12/25/23 12/25/23 Guerita Elliott PA-C [address] [place] [address]7929 [facility] Specialist Cardiothoracic Surgery 01/01/24 4 Matthew Rushing MD [address] [place] [address] 83992 [facility] Specialist Cardiology - General 01/01/24 01/01/24 Guerita Elliott PA-C [address] [address] [facility] Specialist Cardiothoracic Surgery 01/08/24 4 Matthew Rushing MD [address] [place] [address] 89488 [facility] Specialist Cardiology - General 01/08/24 01/08/24 Guerita Elliott PA-C [address] [address] [facility] Specialist Cardiothoracic Surgery 01/15/24 4 Matthew Rushing MD [address] [place] [address] 22225 [facility] Specialist Cardiology - General 01/15/24 01/15/24 Matthew Rushing MD [address] [place] [address] 37257 [facility] Specialist Cardiology - General 01/22/24 01/22/24 Guerita Elliott PA-C [address] [address] [facility] Specialist Cardiothoracic Surgery 01/22/24 01/22/24 Guerita Elliott PA-C [address] [address] [facility] Specialist Cardiothoracic Surgery 01/29/24 4 Matthew Rushing MD [address] [place] [address] 03977 [facility] Specialist Cardiology - General 01/29/24 01/29/24 Matthew Rushing MD [address] [place] [address] 61022 [facility] Specialist Cardiology - General 02/05/24 02/05/24 Guerita Elliott PA-C [address] [address] [facility] Specialist Cardiothoracic Surgery 02/05/24 4 Matthew Rushing MD [address] [place] [address] 84407 [facility] Specialist Cardiology - General 02/12/24 02/12/24 Guerita Elliott PA-C [address] [address] [facility] Specialist Cardiothoracic Surgery 02/12/24 4 Guerita Elliott PA-C [address] [address] [facility] Specialist Cardiothoracic Surgery 02/19/24 02/19/24 Matthew Rushing MD [address] [place] [address] 9[address]37 [facility] Specialist Cardiology - General 02/19/24 02/19/24 Matthew Rushing MD [address] [place] [address] 02169 [facility] Specialist Cardiology - General 02/26/24 02/26/24 Guerita Elliott PA-C [address] [address] [facility] Specialist Cardiothoracic Surgery 02/26/24 02/26/24 Guerita Elliott PA-C [address] [address] [facility] Specialist Cardiothoracic Surgery 03/04/24 4 Matthew Rushing MD [address] [place] [address] 96469 [facility] Specialist Cardiology - General 03/04/24 03/04/24 Guerita Elliott PA-C [address] [address] [facility] Specialist Cardiothoracic Surgery 03/11/24 4 Matthew Rushing MD [address] [place] [address] 71868 [facility] Specialist Cardiology - General 03/11/24 03/11/24 Matthew Rushing MD [address] [place] [address] 91044 [facility] Specialist Cardiology - General 03/18/24 03/18/24 Guerita Elliott PA-C [address] [address] [facility] Specialist Cardiothoracic Surgery 03/18/24 4 Matthew Rushing MD [address] [place] [address] 38051 [facility] Specialist Cardiology - General 03/25/24 03/25/24 Guerita Elliott PA-C [address] [address] [facility] Specialist Cardiothoracic Surgery 03/25/24 4 documented as of this encounter
--- OUTSIDE RECORDS SUMMARY | 2024-06-24 04:36 | XMS_ITS | Encounter Summary ---
Author Organization [facility] alth Address [address] [place] [address] Care Team Providers Care Tents Assembler Name Role Phone Kilo Wang MD Unavailable [phone] Juan Haddad MD Unavailable [phone] Dasha Sheppard PA-C Primary Care Provider Reason for Referral * Test/Procedure/Other (Routine) - Closed Specialty Diagnoses / Procedures Referred By Contac t Referred To Contact Radiology Diagnoses Left sided abdominal pain Constipation, unspecified constipation type History of diverticulitis Procedures CT ABDOMEN PELVIS W IV AND PO CONTRAST Delfino Aragon CRNP [address] [address] Phone: tel: fax: [facility] [address] [place] [address] Phone: tel: fax: Referral ID Status Reason Start Date Expiration Date Visits Re quested Visits Authorized [id number] Closed 04/17/2021 05/17/2021 1 1 Reason for Visit * Reason Comments Abdominal Pain Encounter Details Date Type Department Care Team (Late st Contact Info) Description 04/14/2021 4:30 PM EDT Office Visit [facility] [address] [address] Delfino Aragon CRNP [address] [facility] [address] [place] [address] Left sided abdominal pain (Primary Dx); Constipation, unspecified constipation type; History of diverticulitis [...] and Family Not on file 09/30/2020 Attends [employer] Not on file 09/30 Active Member [...] Sign Reading Time Taken Comments Blood Pressure 127/77 04/14/2021 4:25 PM EDT Pulse 91 04/14/2021 4:25 PM EDT Temperature - - Respiratory Rate - - Oxygen Saturation - - Inhaled Oxygen Concentration - - Weight 102 kg (225 lb 9.6 oz) 04/14/2021 4:25 PM EDT Height 180.3 cm (5' 11 ) 04/14/2021 4:25 PM EDT Body Mass Index 31.46 04/14/2021 4:25 PM EDT documented in this encounter Patient Instructions * Patient Instructions* Rupinder Murdock - 04/14/2021 4:[address] Ab/Pel re: LEFT sided abdominal pain, r/o recurrent/smoldering diverticulitis 2. Miralax 1 capful daily - adjust as needed to have soft stools that are easy to pass 3. F/up in 4-6 weeks, S. PHIL Russell or myself ?? documented in this encounter Progress Notes * Rupinder Murdock - 04/14/2021 4:48 PM EDT Carter Gomes Jr. discharged by: Rupinder Murdock MA. * Delfino Aragon CRNP - 04/14/2021 4:30 PM EDT Subjective: Carter Taveras Reuben De La Cruz is a 56 y.o. male who presents for office evaluation regarding left lower quadrant pain and change in bowel habits. He had an episode of diverticulitis in August of this year, and was seen by our group in December of this year. He was advised to use a fiber supplement and probiotics for presumed irritable bowel syndrome symptoms. He was doing well after his office visit, but then started having recurrent issues in February. He has near constant LEFT sided abdominal pain/burning. It seems worse when he defecates. He has irregular bowel habits. Stools are sometimes skinny, and sometimes he is unable to pass a stool, but he denies melena hematochezia, but has seen mucoid discharge on occasion. His pain seems to be worse with defecation. His last colonoscopy was in June 2019at a which time he had diverticular disease and two 6-12 mm sessile serrated adenomas. A three yearrecall was advised. He was also having issues with eructation and was prescribed omeprazole which has helped. He denies other proximal GI symptoms. He denies extraintestinal manifestations of IBD. He has lost about 15 pounds, but his weight is back up to 225. Family history is positive for colon cancer in his mother, diagnosed at age 65, and Crohn's disease in his niece. He is alone for today's office visit Past Medical History: Diagnosis Date ??? Adenoma of left adrenal gland ??? Asthma ??? Lyme disease Past Surgical History: Procedure Laterality Date ??? ENDOSCOPY, ESOPHAGUS 04/22/2016 ??? HX CARPAL TUNNEL RELEASE Right 03/02/2018 Procedure: DECOMPRESSION NERVE MEDIAN CARPAL TUNNEL RELEASE: Carpal Tunnel Release; Surgeon: Devante Portillo DO; Location: [facility]; Laterality: Right; ??? HX CARPAL TUNNEL RELEASE Left 03/23/2018 Procedure: DECOMPRESSION NERVE MEDIAN CARPAL TUNNEL RELEASE: Carpal Tunnel Release; Surgeon: Devante Portillo DO; Location: [facility]; Laterality: Left; ??? HX COLONOSCOPY 04/22/2016 ??? HX CYST REMOVAL approx 2016 beneath eye-done at MD office w/ local anesthesia ??? HX DECOMPRESSION NERVE CUBITAL TUNNEL RELEASE Left 03/23/2018 Procedure: DECOMPRESSION NERVE CUBITAL TUNNEL RELEASE: Cubital Tunnel Release; Surgeon: Devante Portillo DO; Location: [facility]; Laterality: Left; Current prescriptions, [id number] medications, herbal medications and vitamin/mineral/dietarysupplements have been documented during this encounter. Review of Systems HENT: Positive for hearing loss and tinnitus. Gastrointestinal: Positive for abdominal pain and constipation. Neurological: Positive for dizziness. Objective: Vitals: Visit Vitals BP 127/77 Pulse 91 Ht 1.803 m (5' 11 ) Wt 102 kg (225 lb 9.6 oz) BMI 31.46 kg/m?? Physical Exam Vitals reviewed. Constitutional: General: He is not in acute distress. Appearance: Normal appearance. He is not ill-appearing, toxic-appearing or diaphoretic. Eyes: General: No scleral icterus. Cardiovascular: Rate and Rhythm: Normal rate and regular rhythm. Heart sounds: No murmur heard. Pulmonary: Effort: Pulmonary effort is normal. No respiratory distress. Breath sounds: Normal breath sounds. No stridor. No wheezing or rhonchi. Abdominal: General: Abdomen is flat. Bowel sounds are normal. There is no distension. Palpations: Abdomen is soft. There is no mass. Tenderness: There is abdominal tenderness (Left sided). There is no guarding or rebound. Hernia: No hernia is present. Musculoskeletal: General: Normal range of motion. Right lower leg: No edema. Left lower leg: No edema. Skin: General: Skin is warm and dry. Coloration: Skin is not jaundiced or pale. Findings: No rash. Neurological: General: No focal deficit present. Mental Status: He is alert and oriented to person, place, and time. Psychiatric: Mood and Affect: Mood normal. Behavior: Behavior normal. Thought Content: Thought content normal. Judgment: Judgment normal. Diagnostic Data: Results for CARTER GOMES JR. DMITRY ( ) as of 04/14/2021 16:30 Ref. Range 02/02/2019 10:23 08/19/2020 04:04 03/04/2021 16:46 04/09/2021 11:46 04/14/2021 10:22 Glucose (serum) Latest Ref Range: 65 - 100 mg/dL 88 109 (H) 91 88 Sodium Latest Ref Range: 135 - 145 mmol/L 138 139 136 138 138 Potassium Latest Ref Range: 3.4 - 5.3 mmol/L 4.3 4.1 3.7 4.1 4.1 Blood Urea Nitrogen Latest Ref Range: 8 - 22 mg/dL 12 12 14 16 9 Creatinine Latest Ref Range: 0.7 - 1.2 mg/dL 0.9 1.2 1.1 1.4 (H) 0.9 Bilirubin Total Latest Ref Range: 0.2 - 1.2 mg/dL 1.0 1.0 1.0 0.5 Alkaline Phosphatase Latest Ref Range: 34 - 104 U/L 78 68 66 62 AST (SGOT) Latest Ref Range: 13 - 40 U/L 20 15 19 18 ALT (SGPT) Latest Ref Range: 7 - 52 U/L 21 19 21 23 Gamma GT Latest Ref Range: 9 - 64 U/L 13 WBC Count Latest Ref Range: 4.8 - 10.8 10*3/uL 5.8 11.8 (H) 7.2 6.8 Hgb Latest Ref Range: 14.0 - 18.0 g/dL 15.6 15.9 15.3 15.0 MCV Latest Ref Range: 80.0 - 100.0 fL 87.6 86.4 86.9 87.3 MCH Latest Ref Range: 27.0 - 33.0 pg 30.1 29.6 29.1 29.4 Platelet Count Latest Ref Range: 150 - 450 10*3/uL 192 222 216 251 08/29/20 CT Ab/Pel: 1. There is a [...] retrieved. Fundic gland polyp Impression/Plan: Impression: 1. LLQ abdominal pain 2. Irregular bowel habits 3. History of diverticulitis 4. History of adenomatous colon polyps Dmitry presents today with recurrent left sided abdominal pain and continues to have some irregularity with his bowel habits, now with more constipation. I am concerned he could have recurrent/smoldering diverticulitis, and we will therefore check a CT scan. He does have some tenderness on exam, but no peritoneal signs, and he does not look toxic, so I do not think it needs to be STAT, but if he would have worsening of his pain or developed fever/chills, he was advised to proceed to the emergency room. In the interim, he may use MiraLax to help with his constipation. If his CT is unrevealing and symptoms persist, then may need to consider endoscopic evaluation. Plan: 1. CT Ab/Pel re: LEFT sided abdominal pain, r/o recurrent/smoldering diverticulitis 2. Miralax 1 capful daily - adjust as needed to have soft stools that are easy to pass 3. F/up in 4-6 weeks, PHIL Butts or myself * Vicki Gr MA - 04/14/2021 4:25 PM EDT Carter Nitin Gomes Jr. roomed by: Vicki Gr. Patient does not request a scientific process operator during any office visit exams that will [...] 370, contrast administration. All exams performed by [facility] utilize one or more of the following [...] 370, contrast administration. All exams performed by [facility] utilize one or more of the following [...] diverticulitis. Solitary RIGHT kidney without hydronephrosis. Dictating Workstation: [employer] us Delfino VILLARREAL LG RIS CT ORDERABLES Final Re sult documented in this encounter Visit Diagnoses Diagnosis Left sided abdominal pain- Primary Abdominal pain, unspecified site Constipation, unspecified constipation type History of diverticulitis Left sided abdominal pain Abdominal pain, unspecified site Constipation, unspecified constipation type History of diverticulitis documented in this encounter Additional Health Concerns Infection Onset Date Last Indicated Resolved Time COVID-19 03/27/2021 03/27/2021 04/17/2021 8:34 PM EDT documented as of this encounter Care Teams Tents Assembler Relationship Specialty Start Date End Date Dasha Sheppard PA-C [address] [id number] PCP - General Family Practice 04/12/18 07/10/23 Kilo Wang MD Consulting Physician Neurology 08/30/16 12/01/21 Juan Haddad MD [address] [address] Otolaryngology 09/23/17 documented as of this encounter
--- OUTSIDE RECORDS SUMMARY | 2024-06-24 04:36 | XMS_ITS | Encounter Summary ---
Author Organization [facility] Address [address] [place] [address] Care Team Providers [employer] Name Role Phone Kilo Wang MD Unavailable [phone] Juan Haddad MD Unavailable [phone] Dasha Sheppard-C Primary Care Provider Reason for Referral * Test/Procedure/Other (Routine) - Closed Specialty Diagnoses / Procedures Referred By Contac t Referred To Contact Diagnoses Thoracic aortic aneurysm (CMS/HCC) Procedures MR ANGIOGRAM CHEST W WO CONTRAST Trey Jennings MD [address] [place] [address] Phone: tel: fax: Referral ID Status Reason Start Date Expiration Date Visits Re quested Visits Authorized [id number] Closed 06/04/2020 06/04/2021 1 1 Reason for Visit * Test/Procedure/Other (Routine) - Closed Specialty Diagnoses / Procedures Referred By Contac t Referred To Contact Diagnoses Thoracic aortic aneurysm (CMS/HCC) Procedures MR ANGIOGRAM CHEST W WO CONTRAST Trey Jennings MD [address] [place] [id number] Phone: tel: fax: Referral ID Status Reason Start Date Expiration Date Visits Re quested Visits Authorized [id number] Closed 06/04/2020 06/04/2021 1 1 Encounter Details Date Type Department Care Team (Latest Contact Info) Description 06/16/2020 7:07 AM EST - 06/16/2020 11:59 PM EST Hospital Encounter [facility] [address] [place] [address] Trey Jennings MD [address] [facility] [address] [place] [address] Discharge Disposition: Home/Self Care Social History Tobacco [...] MR ANGIOGRAM CHEST W WO CONTRAST Routine 06/16/2020 7:57 AM EST Thoracic aortic aneurysm (CMS/HCC) documented in this encounter Results * MR ANGIOGRAM CHEST W WO CONTRAST (06/16/2020 7:57 AM EST) Anatomical Region Laterality Modality Chest Magnetic Resonan ce 06/16/2020 7:56 AM EST Impressions 06/16/2020 4:58 PM EST Stable aneurysmal dilatation of the ascending thoracic aorta measuring up to 4.8 cm at the sinuses of Valsalva. There is no evidence for acute aortic pathology. Dictating Narrative 06/16/2020 4:58 PM EST Cardiovascular MRA of the Chest with and without intravenous contrast HISTORY: ??Ascending thoracic aortic aneurysm, 6 month follow-up. ??This study is performed to assess aortic anatomy. Technique: ??Siemens 1.5 T Avanto MRI scanner. * Multiplanar Turbo spin echo and gradient echo imaging for anatomic definition. * Dynamic cine imaging (SSFP) for cardiac chamber and wall-motion analysis, and valvular analysis. * Contrast-enhanced volume sets acquired for three-dimensional MRA reconstructions after injection of Dotarem gadolinium-chelate (20 ??mL). * For more optimal morphologic evaluation, off-line advanced post-processing of the 3-D data was performed (using multiplanar, [id number], and/or volume-rendered reconstructions). FINDINGS: The chest wall, mediastinum, pulmonary arteries, and pericardium are normal. ??No adenopathy is identified. ??Limited imaging through the lungs reveals no gross abnormalities. There is stable aneurysmal dilatation of the ascending thoracic aorta measuring up to 4.8 cm at the sinuses of Valsalva. There is no evidence for acute aortic pathology, such as dissection, intramural hematoma, or contained rupture. ??The arch vessel branching pattern is normal. ??All of the arch branch vessels appear widely patent in their proximal portions. [employer] dimensions of the thoracic aorta are as follows: ?? 2.5 x 2.4 ??cm at the aortic annulus 4.8 ??cm at the sinuses of Valsalva (the sinotubular junction is preserved) 3.4 ??cm in the mid ascending aorta 3.4 cm at the distal ascending aorta 2.8 ??cm at the mid transverse arch 2.6 ??cm at the proximal descending thoracic aorta, which then gradually narrows to 2.4 cm at the diaphragmatic hiatus. Chamber Size: The cardiac chambers demonstrate normal atrioventricular and ventriculoarterial concordance, and systemic and pulmonary venous return. ?? The atria are within normal limits in size. VENTRICLES: The LEFT and RIGHT ventricles are qualitatively normal in size and shape, as imaged. VALVES: The aortic valve is tricuspid. Qualitatively, there is no aortic valve dysfunction identified. Procedure Note Jann Friend MD - 06/16/2020 Cardiovascular MRA of the Chest with and without intravenous contrast HISTORY: Ascending thoracic aortic aneurysm, 6 month follow-up. Thisstudy is performed to assess aortic anatomy. Technique: Siemens 1.5 T Avanto MRI scanner. * Multiplanar Turbo spin echo and gradient echo imaging for anatomicdefinition. * Dynamic cine imaging (SSFP) for cardiac chamber and wall-motionanalysis, and valvular analysis. * Contrast-enhanced volume sets acquired for three-dimensional MRAreconstructions after injection of Dotarem gadolinium-chelate (20 mL). * For more optimal morphologic evaluation, off-line advancedpost-processing of the 3-D data was performed (using multiplanar,[id number], and/or volume-rendered reconstructions). FINDINGS: The chest wall, mediastinum, pulmonary arteries, and pericardium arenormal. No adenopathy is identified. Limited imaging through the lungsreveals no gross abnormalities. There is stable aneurysmal dilatation of the ascending thoracic aortameasuring up to 4.8 cm at the sinuses of Valsalva. There is no evidencefor acute aortic pathology, such as dissection, intramural hematoma, orcontained rupture. The arch vessel branching pattern is normal. All ofthe arch branch vessels appear widely patent in their proximal portions. [employer] dimensions of the thoracic aorta are as follows: 2.5 x 2.4 cm at the aortic annulus 4.8 cm at the sinuses of Valsalva (the sinotubular junction ispreserved) 3.4 cm in the mid ascending aorta 3.4 cm at the distal ascending aorta 2.8 cm at the mid transverse arch 2.6 cm at the proximal descending thoracic aorta, which then graduallynarrows to 2.4 cm at the diaphragmatic hiatus. Chamber Size: The cardiac chambers demonstrate normal atrioventricular andventriculoarterial concordance, and systemic and pulmonary venousreturn. The atria are within normal limits in size. VENTRICLES: The LEFT and RIGHT ventricles are qualitatively normal in size and shape,as imaged. VALVES: The aortic valve is tricuspid. Qualitatively, there is no aortic valvedysfunction identified. IMPRESSION: Stable aneurysmal dilatation of the ascending thoracic aorta measuring upto 4.8 cm at the sinuses of Valsalva. There is no evidence for acuteaortic pathology. Dictating Workstation: [employer] us Trey Jennings MD LG RIS MR ORDERABLES Final Result documented in this encounter Visit Diagnoses Diagnosis Thoracic aortic aneurysm (CMS/HCC) Thoracic aneurysm without mention of rupture documented in this encounter Administered Medications Inactive Administered Medications - up to 3 most recent administrations Medication Order MAR Action Action Date Dose Rate Site gadoterate meglumine (DOTAREM) 0.5 mmol/mL VESICANT SOLN 20 mL 20 mL, Intravenous, IMG ONCE PRN, Other, Starting on Tue06/16/20 at 0757, For 1 dose, Monitor site closely as product is a VESICANT. Given 06/16/2020 7:58 AM EST 20 mLs left antecubital documented in this encounter Care Teams [employer] Relationship Specialty Start Date End Date Dasha Sheppard PA-C [address] [address] PCP - General Family Practice 04/12/18 07/10/23 Kilo Wang MD Consulting Physician Neurology 08/30/16 12/01/21 Juan Haddad MD [address] [address] Otolaryngology 09/23/17 documented as of this encounter
--- OUTSIDE RECORDS SUMMARY | 2024-06-24 04:36 | XMS_ITS | Encounter Summary ---
Author Organization [facility]th [facility] [address] [facility] [address] Care Team Providers Care Route Delivery Supervisor Name Role Phone Kilo Wang MD Unavailable [phone] Juan Haddad MD Unavailable [phone] Dasha Sheppard PA-C Primary Care Provider Trey Jennings MD Unavailable +[phone] Guerita Elliott-C Unavailable +[phone] Matthew Rushing MD Unavailable Matthew Rushing MD Unavailable +[phone] Matthew Rushing MD Unavailable +[phone] Matthew Rushing MD Unavailable +[phone] Matthew Rushing MD Unavailable +[phone] Matthew Rushing MD Unavailable +[phone] Matthew Rushing MD Unavailable +[phone] Matthew Rushing MD Unavailable +[phone] Matthew Rushing MD Unavailable +[phone] Matthew Rushing MD Unavailable +[phone] Matthew Rushing MD Unavailable +[phone] Matthew Rushing MD Unavailable +[phone] Matthew Rushing MD Unavailable +[phone] Matthew Rushing MD Unavailable +[phone] Trey Jennings MD Unavailable +4 -5 Guerita Elliott PA-C Unavailable +4 -5 Matthew Rushing MD Unavailable +[phone] Guerita Elliott J PA-C Unavailable +4 -5 Matthew Rushing MD Unavailable +[phone] Matthew Rushing MD Unavailable +[phone] Guerita Elliott PA-C Unavailable +4 -5 Guerita Elliott PA-C Unavailable +4 [phone] Matthew Rushing MD Unavailable +[phone] Guerita Elliott PA-C Unavailable +4 -5 Matthew Rushing MD Unavailable Matthew Rushing MD Unavailable +[phone] Guerita Elliott PA-C Unavailable +4 -5 Matthew Rushing MD Unavailable +[phone] Guerita Elliott PA-C Unavailable +4 [phone] Matthew Rushing MD Unavailable +[phone] Guerita Elliott PA-C Unavailable +4 -4995 Guerita Elliott PA-C Unavailable +[phone] Matthew Rushing MD Unavailable +[phone] Guerita Elliott PA-C Unavailable +4 -4995 Matthew Rushing MD Unavailable +[phone] Guerita Elliott PA-C Unavailable +[phone] Matthew Rushing MD Unavailable +[phone] Earl, Guerita J PA-C Unavailable +4 -5 Matthew Rushing MD Unavailable +[phone] Matthew Rushing MD Unavailable +[phone] Guerita Elliott PA-C Unavailable +4 -4995 Matthew Rushing MD Unavailable +[phone] Guerita Elliott J PA-C Unavailable +4 -4995 Guerita Elliott J PA-C Unavailable +4 -4995 Matthew Rushing MD Unavailable +[phone] Matthew Rushing MD Unavailable +[phone] Guerita Elliott J PA-C Unavailable +4 -4995 Guerita Elliott Kim PA-C Unavailable +[phone] Matthew Rushing MD Unavailable +[phone] Matthew Rushing MD Unavailable +[phone] Guerita Elliott Kim PA-C Unavailable +[phone] Guerita Elliott Kim PA-C Unavailable +4 -4995 Matthew Rushing MD Unavailable +[phone] Matthew Rushing MD Unavailable +[phone] Guerita Elliott Kim PA-C Unavailable +4 -4995 DeltonLilli pinoher Alvarez PA-C Unavailable +[phone] Matthew Rushing MD Unavailable +[phone] Matthew Rushing MD Unavailable +[phone] Guerita Elliott J PA-C Unavailable +4 -[phone] EarlLilliGuerita J PA-C Unavailable +[phone] Matthew Rushing MD Unavailable +[phone] Guerita Elliott Kim PA-C Unavailable +[phone] Matthew Rushing MD Unavailable +[phone] Matthew Rushing MD Unavailable +[phone] Earl Guerita J PA-C Unavailable +4 -5 Lilli Elliotther J PA-C Unavailable +4 -4995 Matthew Rushing MD Unavailable Matthew Rushing MD Unavailable +[phone] Earl Guerita J PA-C Unavailable +4 -4995 Earl Guerita J PA-C Unavailable +4 -4995 Matthew Rushing MD Unavailable +[phone] Matthew Rushing MD Unavailable +[phone] Guerita Elliott PA-C Unavailable +4 -5 Matthew Rushing MD Unavailable +[phone] EarlGuerita J PA-C Unavailable +4 -4995 Matthew Rushing MD Unavailable +[phone] DeltonGuerita pino J PA-C Unavailable +4 -4995 Guerita Elliott J PA-C Unavailable +4 -4995 Matthew Rushing MD Unavailable +[phone] Matthew Rushing MD Unavailable +[phone] Guerita Elliott J PA-C Unavailable +4 -4995 DeltonGuerita pino J PA-C Unavailable +[phone] Matthew Rushing MD Unavailable +[phone] Matthew Rushing MD Unavailable +[phone] Lilli Elliotther J PA-C Unavailable +[phone] Matthew Rushing MD Unavailable +[phone] Guerita Elliott PA-C Unavailable +4 -4995 Matthew Rushing MD Unavailable +[phone] Lilli Elliotther Alvarez PA-C Unavailable +4 -5 Earl Guerita J PA-C Unavailable +4 -5 Matthew Rushing MD Unavailable +[phone] Matthew Rushing MD Unavailable +[phone] Earl Guerita J PA-C Unavailable +4 -[phone] Earl Guerita J PA-C Unavailable +[phone] Matthew Rushing MD Unavailable +[phone] Earl Guerita Alvarez PA-C Unavailable +4 -5 Matthew Rushing MD Unavailable +[phone] Matthew Rushing MD Unavailable Earl Guerita Alvarez PA-C Unavailable +4 -5 Matthew Rushing MD Unavailable +[phone] Earl Guerita Alvarez PA-C Unavailable +[phone] Matthew Rushing MD Unavailable +[phone] Guerita Elliott PA-C Unavailable +4 -4995 Guerita Elliott PA-C Unavailable +544 [phone] Matthew Rushing MD Unavailable +[phone] Matthew Rushing MD Unavailable +[phone] Guerita Elliott PA-C Unavailable +[phone] Matthew Rushing MD Unavailable +[phone] Guerita Elliott PA-C Unavailable +4 -4995 Matthew Rushing MD Unavailable +[phone] Guerita Elliott PA-C Unavailable +[phone] Guerita Elliott PA-C Unavailable +544 [phone] Matthew Rushing MD Unavailable +[phone] Guerita Elliott-C Unavailable +4 -4995 Matthew Rushing MD Unavailable +[phone] Guerita Elliott PA-C Unavailable +4 -4995 Matthew Rushing MD Unavailable +[phone] Guerita Elliott PA-C Unavailable +4 -4995 Matthew Rushing MD Unavailable +[phone] Gueirta Elliott-C Unavailable +[phone] Matthew Rushing MD Unavailable +[phone] Guerita Elliott PA-C Unavailable +[phone] Matthew Rushing MD Unavailable +[phone] Txfr Provider [facility], Temporary Primary Care Provider Matthew Rushing MD Unavailable +[phone] Guerita Elliott-C Unavailable +[phone] Matthew Rushing MD Unavailable +[phone] Guerita Elliott PA-C Unavailable +4 -4995 Matthew Rushing MD Unavailable +[phone] Guerita Elliott-C Unavailable +4 -4995 Guerita Elliott PA-C Unavailable +[phone] Matthew Rushing MD Unavailable +[phone] Guerita Elliott-C Unavailable +[phone] Matthew Rushing MD Unavailable +[phone] Matthew Rushing MD Unavailable +[phone] Guerita Elliott-C Unavailable +[phone] Matthew Rushing MD Unavailable +[phone] Guerita Elliott PA-C Unavailable +4 -5 Guerita Elliott Kim PA-C Unavailable +4 -499 Matthew Rushing MD Unavailable +[phone] Matthew Rushing MD Unavailable +[phone] Guerita Elliott Kim PA-C Unavailable +4 -4995 Matthew Rushing MD Unavailable +[phone] Guerita Elliott PA-C Unavailable +14 [phone] Matthew Rushing MD Unavailable +[phone] Guerita Elliott PA-C Unavailable +4 -4995 Matthew Rushing MD Unavailable +[phone] Guerita Elliott PA-C Unavailable +4 -4995 Guerita Elliott J PA-C Unavailable +4 -4995 Matthew Rushing MD Unavailable +[phone] Matthew Rushing MD Unavailable +[phone] Guerita Elliott Kim PA-C Unavailable +4 -4995 Matthew Rushing MD Unavailable +[phone] Guerita Elliott Kim PA-C Unavailable +4 -4995 Matthew Rushing MD Unavailable +[phone] Guerita Elliott PA-C Unavailable +4 -4995 Guerita Elliott Kim PA-C Unavailable +[phone] Matthew Rushing MD Unavailable +[phone] Matthew Rushing MD Unavailable +[phone] Guerita Elliott J PA-C Unavailable +4 -4995 EarlGuerita Kim PA-C Unavailable +4 -4995 Matthew Rushing MD Unavailable +[phone] Guerita Elliott PA-C Unavailable +4 -4995 Matthew Rushing MD Unavailable +[phone] Guerita Elliott PA-C Unavailable +4 -4995 Matthew Rushing MD Unavailable +[phone] Matthew Rushing MD Unavailable +[phone] Guerita Elliott PA-C Unavailable +[phone] Matthew Del Toro MD Primary Care Provider [phone] Guerita Elliott PA-C Unavailable +[phone] Matthew Rushing MD Unavailable +[phone] Guerita Elliott PA-C Unavailable +[phone] Matthew Rushing MD Unavailable +[phone] Guerita Elliott PA-C Unavailable +[phone] Matthew Rushing MD Unavailable +[phone] Guerita Elliott PA-C Unavailable +[phone] Matthew Rushing MD Unavailable +[phone] Guerita Elliott PA-C Unavailable +[phone] Matthew Rushing MD Unavailable +[phone] Matthew Rushing MD Unavailable +[phone] Guerita Elliott PA-C Unavailable +[phone] Guerita Elliott PA-C Unavailable +454 [phone] Matthew Rushing MD Unavailable +[phone] Matthew Rushing MD Unavailable +[phone] Guerita Elliott PA-C Unavailable +[phone] Matthew Rushing MD Unavailable +[phone] Guerita Elliott PA-C Unavailable +[phone] Guerita ElliottC Unavailable +[phone] Matthew Rushing MD Unavailable +[phone] Matthew Rushing MD Unavailable +[phone] Guerita ElliottC Unavailable Guerita Elliott PA-C Unavailable +[phone] Matthew Rushing MD Unavailable +[phone] Guerita ElliottC Unavailable Matthew Rushing MD Unavailable +[phone] Matthew Rushing MD Unavailable +[phone] Guerita ElliottC Unavailable +[phone] Matthew Rushing MD Unavailable +[phone] Guerita ElliottC Unavailable +[phone] Reason for Visit * Reason Onset Date Comments Results 08/29/2020 Encounter Details Date Type Department Care Team (Late st Contact Info) Description 08/29/[address] [facility] Line [address] [facility] [address] [address] Matthew Del Toro MD [address] [facility] [address] [place] [address] Results Social History Tobacco Use Types Packs/Day [...] and Family Not on file 09/30/2020 Attends [employer] Not on file 09/30 Active Member [...] Telephone Encounter - Dasha Sheppard PA-C - 08/31/2020 8:50 AM EDT Note reviewed * Telephone Encounter - Matthew Del Toro MD - 08/29/2020 8:48 PM EST Discussed slight worsening of diverticulitis without abscess Will try ciprofloxacin and flagyl Discussed chance of aortic root disease worsening on ciprofloxacin Call with status 09/01 documented in this encounter Plan of Treatment [...] documented as of this encounter Care Teams Route Delivery Supervisor Relationship Specialty Start Date End Date Dasha Sheppard PA-C [address] [address] PCP - General Family Practice 04/12/18 07/10/23 Txfr Provider Family Medicine [place], [facility] [address] [facility] [address] [place] [address] PCP - General Family Practice 07/11/23 12/11/23 Matthew Del Toro MD [address] [facility] [address] [place] [address] PCP - General Family Practice 12/12/23 Kilo Wang MD Consulting Physician Neurology 08/30/16 12/01/21 Juna Haddad MD [address] [address] Otolaryngology 09/23/17 Trey Jennings MD [address] [address] Consulting Physician Cardiothoracic Surgery 07/13/21 Guerita Elliott PA-C [address] [address] [facility] Specialist Cardiothoracic Surgery 01/03/22 06/27/22 Matthew Rushing MD [address] [place] [address] [facility] Specialist Cardiology - General 03/07/22 03/28/22 Matthew Rushing MD [address] [place] [address] [facility] Specialist Cardiology - General 04/04/22 04/04/22 Matthew Rushing MD [address] [place] [address] [facility] Specialist Cardiology - General 04/11/22 04/11/22 Matthew Rushing MD [address] [place] [address] [facility] Specialist Cardiology - General 04/18/22 04/18/22 Matthew Rushing MD [address] [place] [address] [facility] Specialist Cardiology - General 04/25/22 04/25/22 Matthew Rushing MD [address] [place] [address] [facility] Specialist Cardiology - General 05/02/22 05/02/22 Matthew Rushing MD [address] [place] [address] [facility] Specialist Cardiology - General 05/09/22 05/09/22 Matthew Rushing MD [address] [place] [address] [facility] Specialist Cardiology - General 05/16/22 05/16/22 Matthew Rushing MD [address] [place] [address] [facility] Specialist Cardiology - General 05/23/22 05/23/22 Matthew Rushing MD [address] [place] [address] [facility] Specialist Cardiology - General 05/30/22 05/30/22 Matthew Rushing MD [address] [place] [address] [facility] Specialist Cardiology - General 06/06/22 06/06/22 Matthew Rushing MD [address] [place] [address] [facility] Specialist Cardiology - General 06/13/22 06/13/22 Matthew Rushing MD [address] [place] [address] [facility] Specialist Cardiology - General 06/20/22 06/20/22 Matthew Rushing MD [address] [place] [address] [facility] Specialist Cardiology - General 06/27/22 06/27/22 Trey Jennings MD [address] [address] [facility] Specialist Cardiothoracic Surgery 06/27/22 Guerita Elliott PA-C [address] [address] [facility] Specialist Cardiothoracic Surgery 07/04/22 3 Matthew Rushing MD [address] [place] [address] [facility] Specialist Cardiology - General 07/04/22 07/04/22 Guerita Elliott PA-C [address] [place] [address] [facility] Specialist Cardiothoracic Surgery 07/11/22 3 Matthew Rushing MD [address] [place] [address] [facility] Specialist Cardiology - General 07/11/22 07/11/22 Matthew Rushing MD [address] [place] [address] [facility] Specialist Cardiology - General 07/18/22 07/18/22 Guerita Elliott PA-C [address] [address] [facility] Specialist Cardiothoracic Surgery 07/18/22 3 Guerita Elliott PA-C [address] [address] [facility] Specialist Cardiothoracic Surgery 07/25/22 07/25/22 Matthew Rushing MD [address] [place] [address] [facility] Specialist Cardiology - General 07/25/22 07/25/22 Guerita Elliott PA-C [address] [address] [facility] Specialist Cardiothoracic Surgery 08/01/22 3 Matthew Rushing MD [address] [place] [address] [facility] Specialist Cardiology - General 08/01/22 08/01/22 Matthew Rushing MD [address] [place] [address] [facility] Specialist Cardiology - General 08/08/22 08/08/22 Guerita Elliott PA-C [address] [place] [address] [facility] Specialist Cardiothoracic Surgery 08/08/22 3 Matthew Rushing MD [address] [place] [address] [facility] Specialist Cardiology - General 08/15/22 08/15/22 Guerita Elliott PA-C [address] [place] [address] [facility] Specialist Cardiothoracic Surgery 08/15/22 3 Matthew Rushing MD [address] [place] [address] [facility] Specialist Cardiology - General 08/22/22 08/22/22 Guerita Elliott PA-C [address] [place] [address] [facility] Specialist Cardiothoracic Surgery 08/22/22 08/22/22 Guerita Elliott PA-C [address] [place] [address] [facility] Specialist Cardiothoracic Surgery 08/29/22 3 Matthew Rushing MD [address] [place] [address] [facility] Specialist Cardiology - General 08/29/22 08/29/22 Guerita Elliott PA-C [address] [place] [address] [facility] Specialist Cardiothoracic Surgery 09/05/22 3 Matthew Rushing MD [address] [place] [address], [place] [address] [facility] Specialist Cardiology - General 09/05/22 09/05/22 Guerita Elliott PA-C [address] [place] [address] [facility] Specialist Cardiothoracic Surgery 09/12/22 3 Matthew Rushing MD [address] [place] [address] [facility] Specialist Cardiology - General 09/12/22 09/12/22 Guerita Elliott PA-C [address] [address] [facility] Specialist Cardiothoracic Surgery 09/19/22 09/19/22 Matthew Rushing MD [address] [place] [address] [facility] Specialist Cardiology - General 09/19/22 09/19/22 Matthew Rushing MD [address] [place] [address] [facility] Specialist Cardiology - General 09/26/22 09/26/22 Guerita Elliott PA-C [address] [place] [address] [facility] Specialist Cardiothoracic Surgery 09/26/22 09/26/22 Matthew Rushing MD [address] [place] [address] [facility] Specialist Cardiology - General 10/03/22 10/03/22 Guerita Elliott PA-C [address] [place] [address] [facility] Specialist Cardiothoracic Surgery 10/03/22 3 Guerita Elliott PA-C [address] [place] [address] [facility] Specialist Cardiothoracic Surgery 10/10/22 3 Matthew Rushing MD [address] [place] [address] [facility] Specialist Cardiology - General 10/10/22 10/10/22 Matthew Rushing MD [address] [place] [address] [facility] Specialist Cardiology - General 10/17/22 10/17/22 Guerita Elliott PA-C [address] [address] [facility] Specialist Cardiothoracic Surgery 10/17/22 3 Guerita Elliott PA-C [address] [address] [facility] Specialist Cardiothoracic Surgery 10/24/22 10/24/22 Matthew Rushing MD [address] [place] [address] [facility] Specialist Cardiology - General 10/24/22 10/24/22 Matthew Rushing MD [address] [place] [address] [facility] Specialist Cardiology - General 10/31/22 10/31/22 Guerita Elliott PA-C [address] [address] [facility] Specialist Cardiothoracic Surgery 10/31/22 3 Guerita Elliott PA-C [address] [address] [facility] Specialist Cardiothoracic Surgery 11/07/22 3 Matthew Rushing MD [address] [place] [address] [facility] Specialist Cardiology - General 11/07/22 11/07/22 Matthew Rushing MD [address] [place] [address] [facility] Specialist Cardiology - General 11/14/22 11/14/22 Guerita Elliott PA-C [address] [address] [facility] Specialist Cardiothoracic Surgery 11/14/22 3 Guerita Elliott PA-C [address] [address] [facility] Specialist Cardiothoracic Surgery 11/21/22 11/21/22 Matthew Rushing MD [address] [place] [address] [facility] Specialist Cardiology - General 11/21/22 11/21/22 Matthew Rushing MD [address] [place] [address] [facility] Specialist Cardiology - General 11/28/22 11/28/22 Guerita Elliott PA-C [address] [place] [address] [facility] Specialist Cardiothoracic Surgery 11/28/22 3 Guerita Elliott PA-C [address] [place] [address] [facility] Specialist Cardiothoracic Surgery 12/05/22 3 Matthew Rushing MD [address] [place] [address] [facility] Specialist Cardiology - General 12/05/22 12/05/22 Guerita Elliott PA-C [address] [place] [address] [facility] Specialist Cardiothoracic Surgery 12/12/22 3 Matthew Rushing MD [address] [place] [address] [facility] Specialist Cardiology - General 12/12/22 12/12/22 Matthew Rushing MD [address] [place] [address] [facility] Specialist Cardiology - General 12/19/22 12/19/22 Guerita Elliott PA-C [address] [place] [address] [facility] Specialist Cardiothoracic Surgery 12/19/22 12/19/22 Guerita Elliott PA-C [address] [place] [address] [facility] Specialist Cardiothoracic Surgery 12/26/22 12/26/22 Matthew Rushing MD [address] [place] [address] [facility] Specialist Cardiology - General 12/26/22 12/26/22 Matthew Rushing MD [address] [place] [address] [facility] Specialist Cardiology - General 01/02/23 01/02/23 Guerita Elliott PA-C [address] [address] [facility] Specialist Cardiothoracic Surgery 01/02/23 3 Guerita Elliott PA-C [address] [address] [facility] Specialist Cardiothoracic Surgery 01/09/23 3 Matthew Rushing MD [address] [place] [address] [facility] Specialist Cardiology - General 01/09/23 01/09/23 Matthew Rushing MD [address] [place] [address] [facility] Specialist Cardiology - General 01/16/23 01/16/23 Guerita Elliott PA-C [address] [place] [address] [facility] Specialist Cardiothoracic Surgery 01/16/23 3 Matthew Rushing MD [address] [place] [address] [facility] Specialist Cardiology - General 01/23/23 01/23/23 Guerita Elliott PA-C [address] [address] [facility] Specialist Cardiothoracic Surgery 01/23/23 01/23/23 Matthew Rushing MD [address] [place] [address] [facility] Specialist Cardiology - General 01/30/23 01/30/23 Guerita Elliott PA-C [address] [address] [facility] Specialist Cardiothoracic Surgery 01/30/23 3 Guerita Elliott PA-C [address] [address] [facility] Specialist Cardiothoracic Surgery 02/06/23 3 Matthew Rushing MD [address] [place] [address] [facility] Specialist Cardiology - General 02/06/23 02/06/23 Matthew Rushing MD [address] [place] [address] [facility] Specialist Cardiology - General 02/13/23 02/13/23 Guerita Elliott PA-C [address] [address] [facility] Specialist Cardiothoracic Surgery 02/13/23 3 Guerita Elliott PA-C [address] [address] [facility] Specialist Cardiothoracic Surgery 02/20/23 02/20/23 Matthew Rushing MD [address] [place] [address] [facility] Specialist Cardiology - General 02/20/23 02/20/23 Matthew Rushing MD [address] [place] [address] [facility] Specialist Cardiology - General 02/27/23 02/27/23 Guerita Elliott PA-C [address] [place] [address] [facility] Specialist Cardiothoracic Surgery 02/27/23 3 Matthew Rushing MD [address] [place] [address] [facility] Specialist Cardiology - General 03/06/23 03/06/23 Guerita Elliott PA-C [address] [place] [address] [facility] Specialist Cardiothoracic Surgery 03/06/23 3 Matthew Rushing MD [address] [place] [address] [facility] Specialist Cardiology - General 03/13/23 03/13/23 Guerita Elliott PA-C [address] [place] [address] [facility] Specialist Cardiothoracic Surgery 03/13/23 3 Guerita Elliott PA-C [address] [place] [address] [facility] Specialist Cardiothoracic Surgery 03/20/23 3 Matthew Rushing MD [address] [place] [address] [facility] Specialist Cardiology - General 03/20/23 03/20/23 Matthew Rushing MD [address] [place] [address] [facility] Specialist Cardiology - General 03/27/23 03/27/23 Guerita Elliott PA-C [address] [address] [facility] Specialist Cardiothoracic Surgery 03/27/23 3 Guerita Elliott PA-C [address] [place] [address] [facility] Specialist Cardiothoracic Surgery 04/03/23 Matthew Rushing MD [address] [place] [address] [facility] Specialist Cardiology - General 04/03/23 04/03/23 Guerita Elliott PA-C [address] [place] [address] [facility] Specialist Cardiothoracic Surgery 04/10/23 Matthew Rushing MD [address] [place] [address] [facility] Specialist Cardiology - General 04/10/23 04/10/23 Matthew Rushing MD [address] [place] [address] [facility] Specialist Cardiology - General 04/17/23 04/17/23 Guerita Elliott PA-C [address] [address] [facility] Specialist Cardiothoracic Surgery 04/17/23 Matthew Rushing MD [address] [place] [address] 13231 [facility] Specialist Cardiology - General 04/24/23 04/24/23 Guerita Elliott PA-C [address] [place] [address] 95371 [facility] Specialist Cardiothoracic Surgery 04/24/23 3 Matthew Rushing MD [address] [place] [address] 57617 [facility] Specialist Cardiology - General 05/01/23 05/01/23 Guerita Elliott PA-C [address] [address]187 [facility] Specialist Cardiothoracic Surgery 05/01/23 Guerita Elliott PA-C [address] [address] [facility] Specialist Cardiothoracic Surgery 05/08/23 Matthew Rushing MD [address] [place] [address] [id number] [facility] Specialist Cardiology - General 05/08/23 05/08/23 Matthew Rushing MD [address] [place] [address] 65369 [facility] Specialist Cardiology - General 05/15/23 05/15/23 Guerita Elliott PA-C [address] 33350 [facility] Specialist Cardiothoracic Surgery 05/15/23 Matthew Rushing MD [address] [place] [address] 12143 [facility] Specialist Cardiology - General 05/22/23 05/22/23 Guerita Elliott PA-C [address] 20613 [facility] Specialist Cardiothoracic Surgery 05/22/23 3 Matthew Rushing MD [address] [place] [address] 13553 [facility] Specialist Cardiology - General 05/29/23 05/29/23 Guerita Elliott PA-C [address] 14141 [facility] Specialist Cardiothoracic Surgery 05/29/23 Guerita Elliott PA-C [address] 10533 [facility] Specialist Cardiothoracic Surgery 06/05/23 Matthew Rushing MD [address] [place] [address] 93453 [facility] Specialist Cardiology - General 06/05/23 06/05/23 Guerita Elliott PA-C [address] 14026 [facility] Specialist Cardiothoracic Surgery 06/12/23 Matthew Rushing MD [address] [place] [address] 53213 [facility] Specialist Cardiology - General 06/12/23 06/12/23 Guerita Elliott PA-C [address] 11832 [facility] Specialist Cardiothoracic Surgery 06/19/23 Matthew Rushing MD [address] [place] [address] 84732 [facility] Specialist Cardiology - General 06/19/23 06/19/23 Guerita Elliott PA-C [address] [place] [address] 98119 [facility] Specialist Cardiothoracic Surgery 06/26/23 06/26/23 Matthew Rushing MD [address] [place] [address] 35042 [facility] Specialist Cardiology - General 06/26/23 06/26/23 Guerita Elliott PA-C [address] [address] [facility] Specialist Cardiothoracic Surgery 07/03/23 4 Matthew Rushing MD [address] [place] [address] 61877 [facility] Specialist Cardiology - General 07/03/23 07/03/23 Guerita Elliott PA-C [address] 61501 [facility] Specialist Cardiothoracic Surgery 07/10/23 4 Matthew Rushing MD [address] [place] [address] 88933 [facility] Specialist Cardiology - General 07/10/23 07/10/23 Matthew Rushing MD [address] [place] [address] 62960 [facility] Specialist Cardiology - General 07/17/23 07/17/23 Guerita Elliott PA-C [address] 10062 [facility] Specialist Cardiothoracic Surgery 07/17/23 4 Matthew Rushing MD [address] [place] [address] 96286 [facility] Specialist Cardiology - General 07/24/23 07/24/23 Guerita Elliott PA-C [address] 20826 [facility] Specialist Cardiothoracic Surgery 07/24/23 07/24/23 Matthew Rushing MD [address] [place] [address] 23916 [facility] Specialist Cardiology - General 07/31/23 07/31/23 Guerita Elliott PA-C [address] 40778 [facility] Specialist Cardiothoracic Surgery 07/31/23 4 Guerita Elliott PA-C [address] [place] [address] 74798 [facility] Specialist Cardiothoracic Surgery 08/07/23 4 Matthew Rushing MD [address] [place] [address] 21764 [facility] Specialist Cardiology - General 08/07/23 08/07/23 Guerita Elliott PA-C [address] [place] [address] 81857 [facility] Specialist Cardiothoracic Surgery 08/14/23 4 Matthew Rushing MD [address] [place] [address] 40824 [facility] Specialist Cardiology - General 08/14/23 08/14/23 Matthew Rushing MD [address] [place] [address] 19575 [facility] Specialist Cardiology - General 08/21/23 08/21/23 Guerita Elliott PA-C [address] 48017 [facility] Specialist Cardiothoracic Surgery 08/21/23 08/21/23 Matthew Rushing MD [address] [place] [address] 71930 [facility] Specialist Cardiology - General 08/28/23 08/28/23 Guerita Elliott PA-C [address] 35398 [facility] Specialist Cardiothoracic Surgery 08/28/23 4 Guerita Elliott PA-C [address] 83820 [facility] Specialist Cardiothoracic Surgery 09/04/23 4 Matthew Rushing MD [address] [place] [address] 50061 [facility] Specialist Cardiology - General 09/04/23 09/04/23 Matthew Rushing MD [address] [place] [address] 90722 [facility] Specialist Cardiology - General 09/11/23 09/11/23 Guerita Elliott PA-C [address] 03949 [facility] Specialist Cardiothoracic Surgery 09/11/23 4 Matthew Rushing MD [address] [place] [address] 18620 [facility] Specialist Cardiology - General 09/18/23 09/18/23 Guerita Elliott PA-C [address] 15211 [facility] Specialist Cardiothoracic Surgery 09/18/23 4 Matthew Rushing MD [address] [place] [address] 60200 [facility] Specialist Cardiology - General 09/25/23 09/25/23 Guerita Elliott PA-C [address] [place] [address] 35467 [facility] Specialist Cardiothoracic Surgery 09/25/23 09/25/23 Matthew Rushing MD [address] [place] [address] 24975 [facility] Specialist Cardiology - General 10/02/23 10/02/23 Guerita Elliott PA-C [address] [place] [address] 96801 [facility] Specialist Cardiothoracic Surgery 10/02/23 4 Guerita Elliott PA-C [address] 29940 [facility] Specialist Cardiothoracic Surgery 10/09/23 4 Matthew Rushing MD [address] [place] [address] 74332 [facility] Specialist Cardiology - General 10/09/23 10/09/23 Matthew Rushing MD [address] [place] [address] 74352 [facility] Specialist Cardiology - General 10/16/23 10/16/23 Guerita Elliott PA-C [address] 85729 [facility] Specialist Cardiothoracic Surgery 10/16/23 4 Matthew Rushing MD [address] [place] [address] 88317 [facility] Specialist Cardiology - General 10/23/23 10/23/23 Guerita Elliott PA-C [address] [place] [address] 10680 [facility] Specialist Cardiothoracic Surgery 10/23/23 10/23/23 Matthew Rushing MD [address] [place] [address] 04707 [facility] Specialist Cardiology - General 10/30/23 10/30/23 Guerita Elliott PA-C [address] [place] [address] 31619 [facility] Specialist Cardiothoracic Surgery 10/30/23 4 Gueriat Elliott PA-C [address] 94928 [facility] Specialist Cardiothoracic Surgery 11/06/23 4 Matthew Rushing MD [address] [place] [address] 18018 [facility] Specialist Cardiology - General 11/06/23 11/06/23 Matthew Rushing MD [address] [place] [address] 23242 [facility] Specialist Cardiology - General 11/13/23 11/13/23 Guerita Elliott PA-C [address] 90957 [facility] Specialist Cardiothoracic Surgery 11/13/23 4 Guerita Elliott PA-C [address] [place] [address] 58018 [facility] Specialist Cardiothoracic Surgery 11/20/23 11/20/23 Matthew Rushing MD [address] [place] [address] 57346 [facility] Specialist Cardiology - General 11/20/23 11/20/23 Guerita Elliott PA-C [address] 37664 [facility] Specialist Cardiothoracic Surgery 11/27/23 11/27/23 Matthew Rushing MD [address] [place] [address] 94816 [facility] Specialist Cardiology - General 11/27/23 11/27/23 Guerita Elliott PA-C [address] 48016 [facility] Specialist Cardiothoracic Surgery 12/04/23 4 Matthew Rushing MD [address] [place] [address] 59253 [facility] Specialist Cardiology - General 12/04/23 12/04/23 Matthew Rushing MD [address] [place] [address] 68216 [facility] Specialist Cardiology - General 12/11/23 12/11/23 Guerita Elliott PA-C [address] 52171 [facility] Specialist Cardiothoracic Surgery 12/11/23 4 Guerita Elliott PA-C [address] 40896 [facility] Specialist Cardiothoracic Surgery 12/18/23 4 Matthew Rushing MD [address] [place] [address] 78864 [facility] Specialist Cardiology - General 12/18/23 12/18/23 Guerita Elliott PA-C [address] 33933 [facility] Specialist Cardiothoracic Surgery 12/25/23 12/25/23 Matthew Rushing MD [address] [place] [address] 63462 [facility] Specialist Cardiology - General 12/25/23 12/25/23 Guerita Elliott PA-C [address] 58616 [facility] Specialist Cardiothoracic Surgery 01/01/24 4 Matthew Rushing MD [address] [place] [address] 11065 [facility] Specialist Cardiology - General 01/01/24 01/01/24 Guerita Elliott PA-C [address] 44190 [facility] Specialist Cardiothoracic Surgery 01/08/24 4 Matthew Rushing MD [address] [place] [address] 28711 [facility] Specialist Cardiology - General 01/08/24 01/08/24 Guerita Elliott PA-C [address] 19380 [facility] Specialist Cardiothoracic Surgery 01/15/24 4 Matthew Rushing MD [address] [place] [address] 29452 [facility] Specialist Cardiology - General 01/15/24 01/15/24 Matthew Rushing MD [address] [place] [address] 81650 [facility] Specialist Cardiology - General 01/22/24 01/22/24 Guerita Elliott PA-C [address] [place] [address] [facility] Specialist Cardiothoracic Surgery 01/22/24 01/22/24 Guerita Elliott PA-C [address] [place] [address] [facility] Specialist Cardiothoracic Surgery 01/29/24 4 Matthew Rushing MD [address] [place] [address] 36247 [facility] Specialist Cardiology - General 01/29/24 01/29/24 Matthew Rushing MD [address] [place] [address] 45829 [facility] Specialist Cardiology - General 02/05/24 02/05/24 Guerita Elliott PA-C [address] [place] [address] [facility] Specialist Cardiothoracic Surgery 02/05/24 4 Matthew Rushing MD [address] [place] [address] 72839 [facility] Specialist Cardiology - General 02/12/24 02/12/24 Guerita Elliott PA-C [address] [place] [address] [facility] Specialist Cardiothoracic Surgery 02/12/24 4 Guerita Elliott PA-C [address] 98260 [facility] Specialist Cardiothoracic Surgery 02/19/24 02/19/24 Matthew Rushing MD [address] [place] [address] 25496 [facility] Specialist Cardiology - General 02/19/24 02/19/24 Matthew Rushing MD [address] [place] [address] 21450 [facility] Specialist Cardiology - General 02/26/24 02/26/24 Guerita Elliott PA-C [address] 40173 [facility] Specialist Cardiothoracic Surgery 02/26/24 02/26/24 Guerita Elliott PA-C [address] 88584 [facility] Specialist Cardiothoracic Surgery 03/04/24 4 Matthew Rushing MD [address] [place] [address] 02201 [facility] Specialist Cardiology - General 03/04/24 03/04/24 Guerita Elliott PA-C [address] 37318 [facility] Specialist Cardiothoracic Surgery 03/11/24 4 Matthew Rushing MD [address] [place] [address] 42344 [facility] Specialist Cardiology - General 03/11/24 03/11/24 Matthew Rushing MD [address] [place] [address] 85291 [facility] Specialist Cardiology - General 03/18/24 03/18/24 Guerita Elliott PA-C [address] 45270 [facility] Specialist Cardiothoracic Surgery 03/18/24 4 Matthew Rushing MD [address] [place] [address] 18539 [facility] Specialist Cardiology - General 03/25/24 03/25/24 Guerita Elliott PA-C [address] [address]55 [facility] Specialist Cardiothoracic Surgery 03/25/24 4 documented as of this encounter
--- OUTSIDE RECORDS SUMMARY | 2024-06-24 04:36 | XMS_ITS | Encounter Summary ---
Author Organization [facility] alth Address [address] [place] [address] Care Team Providers Care Peanut Butter Maker Name Role Phone Kilo Wang MD Unavailable [phone] Juan Haddad MD Unavailable [phone] Dasha Sheppard PA-C Primary Care Provider Reason for Visit * Reason Comments Refill Request Amlodipine Encounter Details Date Type Department Care Team (Late st Contact Info) Description 04/19/2021 Refill [facility] [address] [phone] Matthew Rushing MD [address] [place] [address] [phone] Refill Request (Amlodipine) Social History Tobacco Use Types Packs/Day Years [...] and Family Not on file 09/30/2020 Attends [employer] Not on file 09/30 Active Member [...] encounter Miscellaneous Notes * Telephone Encounter - Sondra Phipps - 04/21/2021 9:40 AM EDT [facility] Refill Request Last [facility] provider office visit: 03/25/2020 - Unsure when patient is to follow up with Dr Rushing Last BMP: Lab Results Component Value Date/Time GLUCOSE 88 04/14/2021 10:22 AM SODIUM 138 04/14/2021 10:22 AM POTASSIUM 4.1 04/14/2021 10:22 AM CHLORIDE 102 04/14/2021 10:22 AM BUN 9 04/14/2021 10:22 AM CREATININE 0.9 04/14/2021 10:22 AM CALCIUM 9.4 04/14/2021 10:22 AM GFR >60 04/14/2021 10:22 AM documented in this encounter Plan of Treatment Not on file documented as of this encounter Goals Goal Patient Goal Type Associated Problems Recent Progress Patient-Stated? Author Blood Pressure < 140/90 Blood Pressure 160/96( 024 8:13 AM EDT) No Kilo Wang MD documented as of this encounter Visit Diagnoses Not on filedocumented in this encounter Care Teams Peanut Butter Maker Relationship Specialty Start Date End Date Dasha Sheppard PA-C [address] [address] PCP - General Family Practice 04/12/18 07/10/23 Kilo Wang MD Consulting Physician Neurology 08/30/16 12/01/21 Juan Haddad MD [address] [address] Otolaryngology 09/23/17 documented as of this encounter
--- OUTSIDE RECORDS SUMMARY | 2024-06-24 04:36 | XMS_ITS | Encounter Summary ---
Author Organization [facility] alth Address [address] [facility] [place] [address] Care Team Providers Care Director Diversity Name Role Phone Kilo Wang MD Unavailable [phone] Juan Haddad MD Unavailable [phone] Dasha Sheppard PA-C Primary Care Provider Reason for Visit * Reason Comments Lightheaded for the past week or more, mostly in the mornings. Abdominal Pain Pt says he feels so mething in his LUQ abd for the past couple of weeks. Pt says he has a burning feeling and belching frequently. Change In Bowel Habits ongoing Encounter Details Date Type Department Care Team (Late st Contact Info) Description 04/09/2021 11:00 AM EDT Office Visit [facility] [address] [facility] [address] [place] [address] Matthew Del Toro MD [address] [facility] [address] [place], [place] [id number] Hiatal hernia (Primary Dx); Left-sided chest pain; LUQ pain; Lightheaded Discharge Disposition: Home/Self Care Social History Tobacco [...] Sign Reading Time Taken Comments Blood Pressure 118/60 04/09/2021 10:57 AM EDT Pulse 88 04/09/2021 10:57 AM EDT Temperature 36.5 ??C (97.7 ??F) 04/09/2021 10:57 AM E DT Respiratory Rate - - Oxygen Saturation - - Inhaled Oxygen Concentration - - Weight 100 kg (221 lb) 04/09/2021 10:57 AM EDT Height - - Body Mass Index 29.97 12/25/2020 1:49 PM EDT documented in this encounter Progress Notes * Matthew Del Toro MD - 04/09/2021 11:01 AM EDT Assessment and Plan 1. Hiatal hernia - omeprazole (PRILOSEC) 20 MG capsule; Take 1 capsule by mouth every morning. Dispense: 60 capsule;Refill: 2 2. Left-sided chest pain - EKG-MUSE(INOFFICE TRACE/ PB CHARGE) 3. LUQ pain - COMPREHENSIVE METABOLIC PANEL; Future - CBC WITH DIFFERENTIAL - LAB; Future - AMYLASE, SERUM; Future - LIPASE, SERUM; Future 4. Lightheaded It sounds like he may have some hiatal hernia issues. We will start him on Prilosec 20 mg twice a day. We will check labs as above. Discussed post COVID-19 cardiac issues. EKG today looks normal. I do not think he needs further cardiac testing. He has an appointment next week with GI. Certainly upper endoscopy is an option. Discussed timing for COVID-19 vaccine after COVID-19 infection. There is not a clear answer to this. I suggested he do the vaccine 3 months after infection. Subjective Person Accompanying : No one Chief Complaint Patient presents with ??? Lightheaded for the past week or more, mostly in the mornings. ??? Abdominal Pain Pt says he feels something in his LUQ abd for the past couple of weeks. Pt says he has a burning feeling and belching frequently. ??? Change In Bowel Habits ongoing Here for a number of complaints. He tested positive for COVID-19 on March 27. He had a significant cough. Cough seems to be slowly going away. However over the last 2-3 weeks he has been bothered by a burning sensation in his left upper quadrant. Has not taking any kajp-gfw-yjxefep medicines. Hefeels like he is belching all the time. When he belches he feels better. He feels that his bowel movements are ???not right?? . He is currently taking a probiotic. Stools look somewhat thin and sometimes have an orange color. Also describes the lightheadedness. Sometimes it happens when he is just sitting. Does not seem to happen when he changes position. He does not feel like he can make it worse by looking up or down orturning his head quickly. It is hard for him to describe. HPI Review of Systems Active Problems: He has Essential hypertension; Asthma; Tubular adenoma of colon. 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 Current Medications: ??? albuterol (PROVENTIL HFA) 108 (90 Base) MCG/ACT inhaler Inhale 2 puffs by mouth every 4 hours as needed for Wheezing. ??? amLODIPine (NORVASC) 5 MG tablet Take 1 tablet by mouth daily. ??? omeprazole (PRILOSEC) 20 MG capsule Take 1 capsule by mouth every morning. Allergies: He is allergic to quinolones and zoloft [sertraline]. Past Medical History: He has a past medical history of Adenoma of left adrenal gland, Asthma, and Lyme disease. Past Surgical History: He has a past [...] (age of onset: 69) in his mother. Social Determinants of Health: Social History Tobacco Use Smoking Status Never Smoker Smokeless Tobacco Current User ??? Types: Chew Tobacco Comment chewing tobacco 2 cans/week Future appointments already scheduled: Future Appointments Date Time Provider Department Center 04/14/2021 4:30 PM Delfino Aragon CRNP [facility] Objective Vitals: 04/09/21 1057 BP: 118/60 BP Source: Right Arm Position: Sitting Cuff Size: Large Pulse: 88 Temp: 97.7 ??F (36.5 ??C) TempSrc: Temporal Weight: 100 kg (221 lb) Body mass index is 29.97 kg/m??. Additional Vitals (.ambadditionalvitals) Is the patient wearing a mask?: Yes PPE WORN BY CLINICAL STAFF: Mask, Goggles/face shield, Gloves PPE WORN BY PROVIDER: mask, gloves, goggles/face shield Total time spent in face to face contact was > or = 15 minutes. Physical Exam Vital signs as above. General appearance is normal. External ears and nose are normal. Conjunctiva are clear. Tympanic membranes are clear. Pharynx is unremarkable. Neck is supple without lymphadenopathy. Heart regular rate and rhythm without murmur. Lungs are clear. Extremities without cyanosis clubbing or edema. Mood is normal. Abdomen is soft. He has some mild left upper quadrant tenderness. Normoactive bowel sounds. No masses. No hepatosplenomegaly that I can palpate Chart Review: Chart Sections reviewed by provider: [...] Procedure Name Priority Date/Time Associated Diagnosis Comments EKG-MUSE(INOFFICE/P B CHARGE) Routine 04/09/2021 11:36 AM EDT Left-sided chest pain documented in this encounter Results * LIPASE, SERUM (04/09/2021 11:46 AM EDT) Lipase 48 11 - 82 U/L 04/09/2021 5:11 PM EDT [facility] 04/09/2021 11:4 6 AM EDT 04/09/2021 4:30 PM EDT Matthew Del Toro MD CHEMISTRY ORDERABLES Final Re sult [facility] [address] [place] [address] * AMYLASE, SERUM (04/09/2021 11:46 AM EDT) Amylase 47 29 - 103 U/L 04/09/2021 5:11 PM EDT [facility] 04/09/2021 11:4 6 AM EDT 04/09/2021 4:30 PM EDT Matthew Del Toro MD CHEMISTRY ORDERABLES Final Re sult Performing Organization Address [facility]/ZIP Co de Phone Number [facility] [address] [place] [address] * CBC WITH DIFFERENTIAL - LAB (04/09/2021 11:46 AM EDT) WBC Count 6.8 4.8 - 10.8 10*3/uL 04/09/2021 4:11 PM EDT [facility] RBC Count 5.11 4.60 - 6.20 10*6/uL 04/09/2021 4:11 PM EDT [facility] Hgb 15.0 14.0 - 18.0 g/dL 04/09/2021 4:11 PM EDT [facility] Hct 44.6 42.0 - 52.0 % 04/09/2021 4:11 PM EDT [facility] MCV 87.3 80.0 - 100.0 fL 04/09/2021 4:11 PM EDT [facility] MCH 29.4 27.0 - 33.0 pg 04/09/2021 4:11 PM EDT [facility] MCHC 33.6 32.0 - 36.0 g/dL 04/09/2021 4:11 PM EDT [facility] Platelet Count 251 150 - 450 10*3/uL 04/09/2021 4:11 PM EDT [facility] RDW 13.2 12.2 - 14.6 % 04/09/2021 4:11 PM EDT [facility] Neutrophils 62.5 45.0 - 75.0 % 04/09/2021 4:11 PM EDT [facility] Lymphocytes 24.5 19.0 - 46.0 % 04/09/2021 4:11 PM EDT [facility] Monocytes 10.7 2.0 - 12.0 % 04/09/2021 4:11 PM EDT [facility] Eosinophils 1.6 0.0 - 4.0 % 04/09/2021 4:11 PM EDT [facility] Basophils 0.3 0.0 - 1.5 % 04/09/2021 4:11 PM EDT [facility] Immature Granulocytes 0.4 0 - 2 % 04/09/2021 4:11 PM EDT [facility] Neutrophils Absolute 4.26 2.20 - 8.00 10*3/uL 04/09/2021 4:11 PM EDT [facility] Lymphocytes Absolute 1.67 0.90 - 5.00 10*3/uL 04/09/2021 4:11 PM EDT [facility] Monocytes Absolute 0.73 0.20 - 0.80 10*3/uL 04/09/2021 4:11 PM EDT [facility] Eosinophils Absolute 0.11 0.00 - 0.40 10*3/uL 04/09/2021 4:11 PM EDT [facility] Basophils Absolute 0.02 0.00 - 0.40 10*3/uL 04/09/2021 4:11 PM EDT [facility] Immature Granulocyte Absolute 0.03 0.00 - 0.22 10*3/uL 04/09/2021 4:11 PM EDT [facility] 04/09/2021 11:4 6 AM EDT 04/09/2021 4:05 PM EDT us Matthew Del Toro MD HEMATOLOGY ORDERABLES Final R esult [facility] [address] [place] [address] * (ABNORMAL) COMPREHENSIVE METABOLIC PANEL (04/09/2021 11:46 AM EDT) [facility] Glucose (serum) 91 65 - 100 mg/dL 04/09/2021 5:11 PM EDT [facility] Blood Urea Nitrogen 16 8 - 22 mg/dL 04/09/2021 5:11 PM EDT [facility] Sodium 138 135 - 145 mmol/L 04/09/2021 5:11 PM EDT [facility] Potassium 4.1 3.4 - 5.3 mmol/L 04/09/2021 5:11 PM EDT [facility] Chloride 104 98 - 107 mmol/L 04/09/2021 5:11 PM EDT [facility] CO2 Venous 27.1 21.0 - 31.0 mmol/L 04/09/2021 5:11 PM EDT [facility] Anion Gap 7 5 - 15 mmol/L 04/09/2021 5:11 PM EDT [facility] Creatinine 1.4(H) 0.7 - 1.2 mg/dL 04/09/2021 5:11 PM EDT [facility] BUN/Creatinine Ratio 11 10 - 20 Ratio 04/09/2021 5:11 PM EDT [facility] Calcium 9.2 8.6 - 10.3 mg/dL 04/09/2021 5:11 PM EDT [facility] Protein Total Serum 6.8 5.6 - 7.9 g/dL 04/09/2021 5:11 PM EDT [facility] Albumin 4.1 3.5 - 4.9 g/dL 04/09/2021 5:11 PM EDT [facility] Comment:Result reflects use of Bromocresol Green Methodology. Bilirubin Total 0.5 0.2 - 1.2 mg/dL 04/09/2021 5:11 PM EDT [facility] Alkaline Phosphatase 62 34 - 104 U/L 04/09/2021 5:11 PM EDT [facility] AST (SGOT) 18 13 - 40 U/L 04/09/2021 5:11 PM EDT [facility] ALT (SGPT) 23 7 - 52 U/L 04/09/2021 5:11 PM EDT [facility] A/G Ratio 1.5 1.0 - 2.0 Ratio 04/09/2021 5:11 PM EDT [facility] Globulin 2.7 gm/dL 04/09/2021 5:11 PM EDT [facility] GFR 53(A) mL/min/1.7 3 sqm 04/09/2021 5:11 PM EDT [facility] Comment: Notes for GFR: 1. ??Multiply result by 1.21 if patient is black/ ?[place]. 2. ??Chronic kidney disease: <60 mL/min/1.73 sq.m. ?Renal Failure: <15 mL/min/1.73 sq.m. Calcium, Corrected(Adj/Ca lc)Total 9.1 mg/dL 04/09/2021 5:11 PM EDT [facility] 04/09/2021 11:4 6 AM EDT 04/09/2021 4:30 PM EDT Matthew Del Toro MD CHEMISTRY ORDERABLES Final Re sult [facility] [address] [place] [address] * EKG-MUSE(INOFFICE TRACE/ PB CHARGE) (04/09/2021 11:36 AM EDT) Ventricular Rate 76 BPM [facility]-EKG Atrial Rate 76 BPM [facility] P-R Interval 184 ms [facility]-EKG QRS Duration 84 ms [facility] Q-T Interval 372 ms [facility] QTC Calculation 418 ms [facility] GENERAL CARDIOLOGY-EKG Calculated P [place] 33 degrees [facility] Calculated R [place] 63 degrees [facility]-E[facility] Calculated T [place] 21 degrees [facility]-EKG 04/09/2021 11:3 6 AM EDT 04/09/2021 12:20 PM EDT Narrative [facility]-EKG - 04/09/2021 12:20 PM EDT Normal sinus rhythm Normal ECG When compared with ECG of 02-FEB-2019 10:02, No significant change was found Confirmed by MD Hoang, Cory ([id number]) on 04/09/2021 12:20:30 PM us Matthew Del Toro MD ECG ORDERABLES Final Result [facility] [address] [facility] [place] [address] documented in this encounter Visit Diagnoses Diagnosis Hiatal hernia- Primary Diaphragmatic hernia without mention of obstruction or gangrene Left-sided chest pain LUQ pain Abdominal pain, left upper quadrant Lightheaded Dizziness and giddiness documented in this encounter Additional Health Concerns Infection Onset Date Last Indicated Resolved Time COVID-19 03/27/2021 03/27/2021 04/17/2021 8:34 PM EDT documented as of this encounter Care Teams Director Diversity Relationship Specialty Start Date End Date Dasha Sheppard PA-C [address] [place] [address] PCP - General Family Practice 04/12/18 07/10/23 Kilo Wang MD Consulting Physician Neurology 08/30/16 12/01/21 Juan Haddad MD [address] [address] Otolaryngology 09/23/17 documented as of this encounter
--- OUTSIDE RECORDS SUMMARY | 2024-06-24 04:36 | XMS_ITS | Encounter Summary ---
Author Organization [facility]th Address [address] [facility] [place] [address] Care Team Providers Care Patcher Name Role Phone Kilo Wang MD Unavailable [phone] Juan Haddad MD Unavailable [phone] Dsaha Sheppard PA-C Primary Care Provider Reason for Visit * Reason Onset Date Comments Covid-19 Screening And Care Coordination 021 1st call Encounter Details Date Type Department Care Team (Late st Contact Info) Description 03/30/2021 Patient Outreach [facility] Line [address] [facility] [place] [id number] Dasha Sheppard, [place] [address] [facility] [place] [address] Covid-19 Screening And Care Coordination (1st call) Social History Tobacco Use Types Packs/Day Years [...] and Family Not on file 09/30/2020 Attends Muslim Services Not on file 09/30 Active Member [...] as of this encounter Progress Notes * Criss Alex LPN - 03/30/2021 9:38 AM EDT covid positive letter sent COVID-19 Results Management Summary SARS CoV-2 PCR (no units) Date Value 03/27/2021 Detected (A) 03/04/2021 Negative 06/07/2020 Not detected Comments History (newest first) High Risk Medical Conditions Identified (Not Comprehensive - Please review chart for full risk assessment): Exposure/Risk Potential Conditions Identified (Not Comprehensive - Please review chart for full risk assessment): COVID-19 Testing Follow-Up: Date of Symptom Onset: 03/25/2021 Result: POS, MILD symptoms Test Positive, Mild Symptoms: Home isolation for min 10d from symptom onset AND 24 without fever AND symptoms improved. Call PCP for any new/worsening symptoms. Initial positive results reviewed with Robert . Home care recommendations reviewed and questions answered. Robert is having the following symptoms. sob. Robert denies any problems related to social determinants of health.. Rboert is agreeable to call back from clinical staff in 2 days. 02 was 98% fever broke and asking about BAM. This COVID19 event is closed. Select if no further contact is planned. documented in this encounter Plan of Treatment [...] documented as of this encounter Care Teams Patcher Relationship Specialty Start Date End Date Dasha Sheppard PA-C [address] [place] [address] [address] PCP - General Family Practice 04/12/18 07/10/23 Kilo Wang MD Consulting Physician Neurology 08/30/16 12/01/21 Juan Haddad MD [address] [place] [address] [address] Otolaryngology 09/23/17 documented as of this encounter
--- OUTSIDE RECORDS SUMMARY | 2024-06-24 04:36 | XMS_ITS | Encounter Summary ---
Author Organization [facility]th [facility] [address] [address] Care Team Providers Care Detention Worker Name Role Phone Kilo Wang MD Unavailable [phone] Juan Haddad MD Unavailable [phone] Dasha Sheppard PA-C Primary Care Provider Trey Jennings MD Unavailable +[phone] Guerita Elliott-C Unavailable +[phone] Matthew Rushing MD Unavailable +[phone] Matthew Rushing MD Unavailable +[phone] Matthew Rushing MD Unavailable +[phone] Matthew Rushing MD Unavailable +[phone] Matthew Rushing MD Unavailable +[phone] Matthew Rushing MD Unavailable +[phone] Matthew Rushing MD Unavailable +[phone] Matthew Rushing MD Unavailable Matthew Rushing MD Unavailable Matthew Rushing MD Unavailable +[phone] Matthew Rushing MD Unavailable +[phone] Matthew Rushing MD Unavailable +[phone] Matthew Rushing MD Unavailable +[phone] Matthew Rushing MD Unavailable +[phone] Trey Jennings MD Unavailable +4 -5 Guerita Elliott PA-C Unavailable +4 -5 Matthew Rushing MD Unavailable +[phone] Guerita Elliott J PA-C Unavailable +4 -5 Matthew Rushing MD Unavailable Matthew Rushing MD Unavailable +[phone] Guerita Elliott PA-C Unavailable +4 -5 Guerita Elliott PA-C Unavailable +4 [phone] Matthew Rushing MD Unavailable +[phone] Guerita Elliott PA-C Unavailable +4 -5 Matthew Rushing MD Unavailable +[phone] Matthew Rushing MD Unavailable +[phone] Guerita Elliott PA-C Unavailable +4 -5 Matthew Rushing MD Unavailable +[phone] Guerita Elliott PA-C Unavailable +4 -[phone] Matthew Rushing MD Unavailable +[phone] Guerita Elliott PA-C Unavailable +4 -4995 Guerita Elliott PA-C Unavailable +[phone] Matthew Rushing MD Unavailable +[phone] Guerita Elliott PA-C Unavailable +4 -4995 Matthew Rushing MD Unavailable +[phone] Guerita Elliott PA-C Unavailable +[phone] Matthew Rushing MD Unavailable +[phone] Earl, Guerita J PA-C Unavailable +4 -5 Matthew Rushing MD Unavailable +[phone] Matthew Rushing MD Unavailable +[phone] Guerita Elliott PA-C Unavailable +4 -[phone] Matthew Rushing MD Unavailable +[phone] Guerita Elliott J PA-C Unavailable +4 -4995 Guerita Elliott J PA-C Unavailable +4 -4995 Matthew Rushing MD Unavailable +[phone] Matthew Rushing MD Unavailable +[phone] Guerita Elliott J PA-C Unavailable +4 -4995 Guerita Elliott Kim PA-C Unavailable +[phone] Matthew Rushing MD Unavailable Matthew Rushing MD Unavailable +[phone] Guerita Elliott Kim PA-C Unavailable +[phone] Guerita Elliott Kim PA-C Unavailable +4 -4995 Matthew Rushing MD Unavailable +[phone] Matthew Rushing MD Unavailable +[phone] Guerita Elliott Kim PA-C Unavailable +4 -[phone] [place] Al[place] PA-C Unavailable +[phone] Matthew Rushing MD Unavailable +[phone] Matthew Rushing MD Unavailable +[phone] Guerita Elliott J PA-C Unavailable +4 -4995 EarlLilliGuerita J PA-C Unavailable +[phone] Matthew Rushing MD Unavailable +[phone] Guerita Elliott Kim PA-C Unavailable +[phone] Matthew Rushing MD Unavailable +[phone] Matthew Rushing MD Unavailable +[phone] Earl Guerita J PA-C Unavailable +4 -5 Lilli Elliotther J PA-C Unavailable +4 -4995 Matthew Rushing MD Unavailable +[phone] Matthew Rushing MD Unavailable +[phone] Earl Guerita J PA-C Unavailable +4 -4995 Earl Guerita J PA-C Unavailable +4 -4995 Matthew Rushing MD Unavailable +[phone] Matthew Rushing MD Unavailable +[phone] Guerita Elliott PA-C Unavailable +4 -5 Matthew Rushing MD Unavailable +[phone] EarlGuerita J PA-C Unavailable +4 -4995 Matthew Rushing MD Unavailable [place] J PA-C Unavailable +4 -4995 Guerita Elliott J PA-C Unavailable +4 -4995 Matthew Rushing MD Unavailable +[phone] Matthew Rushing MD Unavailable +[phone] Guerita Elliott J PA-C Unavailable +4 -4995 [place]ita pino J PA-C Unavailable +[phone] Matthew Rushing MD Unavailable +[phone] Matthew Rushing MD Unavailable +[phone] Lilli Elliotther J PA-C Unavailable +[phone] Matthew Rushing MD Unavailable +[phone] Guerita Elliott PA-C Unavailable +4 -4995 Matthew Rushing MD Unavailable +[phone] Lilli Elliotther Alvarez PA-C Unavailable +4 -5 Earl Guerita J PA-C Unavailable +4 -5 Matthew Rushing MD Unavailable +[phone] Matthew Rushing MD Unavailable +[phone] Earl Guerita J PA-C Unavailable +4 -[phone] Earl Guerita J PA-C Unavailable +[phone] Matthew Rushing MD Unavailable +[phone] Earl Guerita Alvarez PA-C Unavailable +4 -5 Matthew Rushing MD Unavailable Matthew Rushing MD Unavailable +[phone] Earl Guerita Alvarez PA-C Unavailable +4 -5 Matthew Rushing MD Unavailable +[phone] Earl Guerita Alvarez PA-C Unavailable +[phone] Matthew Rushing MD Unavailable +[phone] Guerita Elliott PA-C Unavailable +4 -4995 Guerita Elliott PA-C Unavailable +[phone] Matthew Rushing MD Unavailable +[phone] Matthew Rushing MD Unavailable +[phone] Guerita Elliott PA-C Unavailable +[phone] Matthew Rushing MD Unavailable +[phone] Guerita Elliott PA-C Unavailable +4 -4995 Matthew Rushing MD Unavailable +[phone] Guerita Elliott PA-C Unavailable +[phone] Guerita Elliott PA-C Unavailable +544 -[phone] Matthew Rushing MD Unavailable +[phone] Guerita Elliott-C Unavailable +4 -4995 Matthew Rushing MD Unavailable +[phone] Guerita Elliott PA-C Unavailable +4 -4995 Matthew Rushing MD Unavailable +[phone] Guerita Elliott PA-C Unavailable +4 -4995 Matthew Rushing MD Unavailable +[phone] Guerita Elliott-C Unavailable +[phone] Matthew Rushing MD Unavailable +[phone] Guerita Elliott PA-C Unavailable +[phone] Matthew Rushing MD Unavailable +[phone] Txfr Provider [facility], Temporary Primary Care Provider Matthew Rushing MD Unavailable +[phone] Guerita Elliott-C Unavailable +[phone] Matthew Rushing MD Unavailable +[phone] Guerita Elliott PA-C Unavailable +4 -4995 Matthew Rushing MD Unavailable +[phone] Guerita Elliott-C Unavailable +4 -4995 Guerita Elliott PA-C Unavailable +[phone] Matthew Rushing MD Unavailable +[phone] Guerita Elliott-C Unavailable +[phone] Matthew Rushing MD Unavailable +[phone] Matthew Rushing MD Unavailable +[phone] Guerita Elliott-C Unavailable +[phone] Matthew Rushing MD Unavailable +[phone] Guerita Elliott PA-C Unavailable +4 -5 Guerita Elliott Kim PA-C Unavailable +4 -499 Matthew Rushing MD Unavailable +[phone] Matthew Rushing MD Unavailable Guerita Elliott Kim PA-C Unavailable +4 -4995 Matthew Rushing MD Unavailable +[phone] Guerita Elliott PA-C Unavailable +[phone] Matthew Rushing MD Unavailable +[phone] Guerita Elliott PA-C Unavailable +4 -4995 Matthew Rushing MD Unavailable +[phone] Guerita Elliott PA-C Unavailable +4 -4995 Guerita Elliott J PA-C Unavailable +4 -4995 Matthew Rushing MD Unavailable +[phone] Matthew Rushing MD Unavailable +[phone] Guerita Elliott Kim PA-C Unavailable +4 -4995 Matthew Rushing MD Unavailable +[phone] Guerita Elliott Kim PA-C Unavailable +4 -4995 Matthew Rushing MD Unavailable +[phone] Guerita Elliott PA-C Unavailable +4 -4995 Guerita Elliott Kim PA-C Unavailable +[phone] Matthew Rushing MD Unavailable +[phone] Matthew Rushing MD Unavailable +[phone] Guerita Elliott J PA-C Unavailable +4 -4995 EarlGuerita Kim PA-C Unavailable +4 -4995 Matthew Rushing MD Unavailable +[phone] Guerita Elliott PA-C Unavailable +4 -4995 Matthew Rushing MD Unavailable +[phone] Guerita Elliott PA-C Unavailable +4 -4995 Matthew Rushing MD Unavailable Matthew Rushing MD Unavailable +[phone] Guerita Elliott PA-C Unavailable +[phone] Matthew Del Toro MD Primary Care Provider +[phone] Guerita Elliott PA-C Unavailable +[phone] Matthew Rushing MD Unavailable +[phone] Guerita Elliott PA-C Unavailable +[phone] Matthew Rushing MD Unavailable +[phone] Guerita Elliott PA-C Unavailable +[phone] Matthew Rushing MD Unavailable +[phone] Guerita Elliott PA-C Unavailable +[phone] Matthew Rushing MD Unavailable +[phone] Guerita Elliott PA-C Unavailable +[phone] Matthew Rushing MD Unavailable +[phone] Matthew Rushing MD Unavailable +[phone] Guerita Elliott PA-C Unavailable +[phone] Guerita Elliott PA-C Unavailable +[phone] Matthew Rushing MD Unavailable Matthew Rushing MD Unavailable +[phone] Guerita Elliott PA-C Unavailable +[phone] Matthew Rushing MD Unavailable +[phone] Guerita Elliott PA-C Unavailable +[phone] Guerita Elliott Kim PA-C Unavailable +4 -4994 Matthew Rushing MD Unavailable +[phone] Matthew Rushing MD Unavailable +[phone] Guerita Elliott PA-C Unavailable +4 -[phone] EarlGuerita pino Kim PA-C Unavailable +4 -4994 Matthew Rushing MD Unavailable +[phone] Guerita Elliott PA-C Unavailable +4 -5 Matthew Rushing MD Unavailable +[phone] Matthew Rushing MD Unavailable +[phone] Guerita Elliott Kim PA-C Unavailable +4 -5 Matthew Rushing MD Unavailable +[phone] Guerita Elliott Kim PA-C Unavailable + -5 Matthew Rushing MD Unavailable +[phone] Guerita Elliott Kim PA-C Unavailable +4 -5 Guerita Elliott Kim PA-C Unavailable + -5 Matthew Rushing MD Unavailable +[phone] Earl Guerita J PA-C Unavailable +4 -5 Matthew Rushing MD Unavailable +[phone] Earl Guerita Kim PA-C Unavailable + -[phone] Matthew Rushing MD Unavailable +[phone] Matthew Rushing MD Unavailable +[phone] Guerita Elliott PA-C Unavailable +4 -[phone] Matthew Rushing MD Unavailable +[phone] Earl Guerita J PA-C Unavailable +4 -4995 Matthew Rushing MD Unavailable +[phone] Guerita Elliott PA-C Unavailable +[phone] Guerita Elliott PA-C Unavailable +[phone] Matthew Rushing MD Unavailable +[phone] Guerita Elliott PA-C Unavailable +[phone] Matthew Rushing MD Unavailable +[phone] Guerita Elliott PA-C Unavailable +[phone] Matthew Rushing MD Unavailable +[phone] Guerita Elliott PA-C Unavailable +[phone] Matthew Rushing MD Unavailable +[phone] Guerita Elliott PA-C Unavailable +[phone] Matthew Rushing MD Unavailable [phone] Encounter Details Date Type Department Care Team (Late st Contact Info) Description 06/07/2020 Orders Only [facility] Line [address], [address] [place] [address] Israel Zuniga LPN SOB (shortness of breath); Cough Social History Tobacco Use Types Packs/Day Years [...] Procedure Name Priority Date/Time Associated Diagnosis Comments HC RT COVID-19 [facility] Routine 06/07/2020 1:00 PM EST SYMPTOMATIC COVID PCR ONLY Routine 06/07/2020 8:30 AM EST SOB (shortness of breath) Cough documented in this encounter Results * SYMPTOMATIC COVID ONLY PCR [facility] (06/07/2020 1:00 PM EST) SARS CoV-2 PCR Not detected Not Detected 06/10/2020 5:59 AM EST [facility] Comment: Test performed by: ??[facility], [facility] ?[address], [address], [address] ?[place] [address] ?Edu Montes De Oca MD, Braiding Machine Tender 06/07/2020 1:00 PM EST 06/07/2020 1:25 PM EST us Zen Dumont MD IMMUNOLOGY ORDERABLES Final Re sult [facility] [address] [id number] [facility] [address] [place] [address] * SYMPTOMATIC COVID PCR ONLY (06/07/2020 8:30 AM EST) Symptomatic COVID See Note 06/10/2020 5:59 AM EST [facility] Comment:See separate order f or results. 06/07/2020 8:30 AM EST 06/07/2020 8:30 AM EST us Zen Dumont MD IMMUNOLOGY ORDERABLES Final Re sult [facility] [address] [facility] [address] [place] [id number] documented in this encounter Visit Diagnoses Diagnosis SOB (shortness of breath) Shortness of breath Cough documented in this encounter Additional Health Concerns Infection Onset Date Last Indicated Resolved Time Symptomatic COVID PUI 06/07/2020 06/07/20202019 5:59 AM EST Asymptomatic COVID PUI 06/07/2020 06/07/202006/10 5:59 AM EST Symptomatic COVID PUI 03/26/2021 03/27/20212020 7:16 PM EDT COVID-19 03/27/2021 03/27/2021 04/17/2021 8:34 PM EDT documented as of this encounter Care Teams Detention Worker Relationship Specialty Start Date End Date Dasha Sheppard PA-C [address] [place] [address] PCP - General Family Practice 04/12/18 07/10/23 Txfr Provider Family Medicine [place], Temporary [address] [address] [place] [id number] PCP - General Family Practice 07/11/23 12/11/23 Matthew Del Toro MD [address] [address] PCP - General Family Practice 12/12/23 Kilo Wang MD Consulting Physician Neurology 08/30/16 12/01/21 Juan Haddad MD [address] [place] [address] Otolaryngology 09/23/17 Trey Jennings MD [address] [facility] [address] [place] [address] Consulting Physician Cardiothoracic Surgery 07/13/21 Guerita Elliott PA-C [address] [address] [facility] Specialist Cardiothoracic Surgery 01/03/22 06/27/22 Matthew Rushing MD [address] [place] [address] [facility] Specialist Cardiology - General 03/07/22 03/28/22 Matthew Rushing MD [address] [place] [address] [facility] Specialist Cardiology - General 04/04/22 04/04/22 Matthew Rushing MD [address] [place] [address] [facility] Specialist Cardiology - General 04/11/22 04/11/22 Matthew Rushing MD [address] [place] [address] [facility] Specialist Cardiology - General 04/18/22 04/18/22 Matthew Rushing MD [address] [place] [address] [facility] Specialist Cardiology - General 04/25/22 04/25/22 Matthew Rushing MD [address] [place] [address] [facility] Specialist Cardiology - General 05/02/22 05/02/22 Matthew Rushing MD [address] [place] [address] [facility] Specialist Cardiology - General 05/09/22 05/09/22 Matthew Rushing MD [address] [place] [address] [facility] Specialist Cardiology - General 05/16/22 05/16/22 Matthew Rushing MD [address] [place] [address] [facility] Specialist Cardiology - General 05/23/22 05/23/22 Matthew Rushing MD [address] [place] [address] [facility] Specialist Cardiology - General 05/30/22 05/30/22 Matthew Rushing MD [address] [place] [address] [facility] Specialist Cardiology - General 06/06/22 06/06/22 Matthew Rushing MD [address] [place] [address] [facility] Specialist Cardiology - General 06/13/22 06/13/22 Matthew Rushing MD [address] [place] [address] [facility] Specialist Cardiology - General 06/20/22 06/20/22 Matthew Rushing MD [address] [place] [address] [facility] Specialist Cardiology - General 06/27/22 06/27/22 Trey Jennings MD [address] [place] [address] [facility] Specialist Cardiothoracic Surgery 06/27/22 Guerita Elliott PA-C [address] [place] [address] [facility] Specialist Cardiothoracic Surgery 07/04/22 3 Matthew Rushing MD [address] [place] [address] [facility] Specialist Cardiology - General 07/04/22 07/04/22 Guerita Elliott PA-C [address] [place] [address] [facility] Specialist Cardiothoracic Surgery 07/11/22 3 Matthew Rushing MD [address] [place] [address] [facility] Specialist Cardiology - General 07/11/22 07/11/22 Matthew Rushing MD [address] [place] [address] [facility] Specialist Cardiology - General 07/18/22 07/18/22 Guerita Elliott PA-C [address] [address] [facility] Specialist Cardiothoracic Surgery 07/18/22 3 Guerita Elliott PA-C [address] [address] [facility] Specialist Cardiothoracic Surgery 07/25/22 07/25/22 Matthew Rushing MD [address] [place] [address] [facility] Specialist Cardiology - General 07/25/22 07/25/22 Guerita Elliott PA-C [address] [address] [facility] Specialist Cardiothoracic Surgery 08/01/22 3 Matthew Rushing MD [address] [place] [address] [facility] Specialist Cardiology - General 08/01/22 08/01/22 Matthew Rushing MD [address] [place] [address] [facility] Specialist Cardiology - General 08/08/22 08/08/22 Guerita Elliott PA-C [address] [address] [facility] Specialist Cardiothoracic Surgery 08/08/22 3 Matthew Rushing MD [address] [place] [address] [facility] Specialist Cardiology - General 08/15/22 08/15/22 Guerita Elliott PA-C [address] [address] [facility] Specialist Cardiothoracic Surgery 08/15/22 3 Matthew Rushing MD [address] [place] [address] [facility] Specialist Cardiology - General 08/22/22 08/22/22 Guerita Elliott PA-C [address] [address] [facility] Specialist Cardiothoracic Surgery 08/22/22 08/22/22 Guerita Elliott PA-C [address] [address] [facility] Specialist Cardiothoracic Surgery 08/29/22 3 Matthew Rushing MD [address] [place] [address] [facility] Specialist Cardiology - General 08/29/22 08/29/22 Guerita Elliott PA-C [address] [address] [facility] Specialist Cardiothoracic Surgery 09/05/22 3 Matthew Rushing MD [address] [place] [address] [facility] Specialist Cardiology - General 09/05/22 09/05/22 Guerita Elliott PA-C [address] [address] [facility] Specialist Cardiothoracic Surgery 09/12/22 3 Matthew Rushing MD [address] [place] [address] [facility] Specialist Cardiology - General 09/12/22 09/12/22 Guerita Elliott PA-C [address] [address] [facility] Specialist Cardiothoracic Surgery 09/19/22 09/19/22 Matthew Rushing MD [address] [place] [address] [facility] Specialist Cardiology - General 09/19/22 09/19/22 Matthew Rushing MD [address] [place] [address] [facility] Specialist Cardiology - General 09/26/22 09/26/22 Guerita Elliott PA-C [address] [address] [facility] Specialist Cardiothoracic Surgery 09/26/22 09/26/22 Matthew Rushing MD [address] [place] [address] [facility] Specialist Cardiology - General 10/03/22 10/03/22 Guerita Elliott PA-C [address] [address] [facility] Specialist Cardiothoracic Surgery 10/03/22 3 Guerita Elliott PA-C [address] [address] [facility] Specialist Cardiothoracic Surgery 10/10/22 3 Matthew Rushing MD [address] [place] [address] [facility] Specialist Cardiology - General 10/10/22 10/10/22 Matthew Rushing MD [address] [place] [address] [facility] Specialist Cardiology - General 10/17/22 10/17/22 Guerita Elliott PA-C [address] [address] [facility] Specialist Cardiothoracic Surgery 10/17/22 3 Guerita Elliott PA-C [address] [address] [facility] Specialist Cardiothoracic Surgery 10/24/22 10/24/22 Matthew Rushing MD [address] [place] [address] [facility] Specialist Cardiology - General 10/24/22 10/24/22 Matthew Rushing MD [address] [place] [address] [facility] Specialist Cardiology - General 10/31/22 10/31/22 Guerita Elliott PA-C [address] [address] [facility] Specialist Cardiothoracic Surgery 10/31/22 3 Guerita Elliott PA-C [address] [address] [facility] Specialist Cardiothoracic Surgery 11/07/22 3 Matthew Rushing MD [address] [place] [address] [facility] Specialist Cardiology - General 11/07/22 11/07/22 Matthew Rushing MD [address] [place] [address] [facility] Specialist Cardiology - General 11/14/22 11/14/22 Guerita Elliott PA-C [address] [address] [facility] Specialist Cardiothoracic Surgery 11/14/22 3 Guerita Elliott PA-C [address] [address] [facility] Specialist Cardiothoracic Surgery 11/21/22 11/21/22 Matthew Rushing MD [address] [place] [address] [facility] Specialist Cardiology - General 11/21/22 11/21/22 Matthew Rushing MD [address] [place] [address] [facility] Specialist Cardiology - General 11/28/22 11/28/22 Guerita Elliott PA-C [address] [address] [facility] Specialist Cardiothoracic Surgery 11/28/22 3 Guerita Elliott PA-C [address] [place] [address] [facility] Specialist Cardiothoracic Surgery 12/05/22 3 Matthew Rushing MD [address] [place] [address] [facility] Specialist Cardiology - General 12/05/22 12/05/22 Guerita Elliott PA-C [address] [place] [address] [facility] Specialist Cardiothoracic Surgery 12/12/22 3 Matthew Rushing MD [address] [place] [address] [facility] Specialist Cardiology - General 12/12/22 12/12/22 Matthew Rushing MD [address] [place] [address] [facility] Specialist Cardiology - General 12/19/22 12/19/22 Guerita Elliott PA-C [address] [address] [facility] Specialist Cardiothoracic Surgery 12/19/22 12/19/22 Guerita Elliott PA-C [address] [address] [facility] Specialist Cardiothoracic Surgery 12/26/22 12/26/22 Matthew Rushing MD [address] [place] [address] [facility] Specialist Cardiology - General 12/26/22 12/26/22 Matthew Rushing MD [address] [place] [address] [facility] Specialist Cardiology - General 01/02/23 01/02/23 Guerita Elliott PA-C [address] [address] [facility] Specialist Cardiothoracic Surgery 01/02/23 3 Guerita Elliott PA-C [address] [address] [facility] Specialist Cardiothoracic Surgery 01/09/23 3 Matthew Rushing MD [address] [place] [address] [facility] Specialist Cardiology - General 01/09/23 01/09/23 Matthew Rushing MD [address] [place] [address] [facility] Specialist Cardiology - General 01/16/23 01/16/23 Guerita Elliott PA-C [address] [place] [address] 37963 [facility] Specialist Cardiothoracic Surgery 01/16/23 3 Matthew Rushing MD [address] [place] [address] 42296 [facility] Specialist Cardiology - General 01/23/23 01/23/23 Guerita Elliott PA-C [address] [place] [address] 95619 [facility] Specialist Cardiothoracic Surgery 01/23/23 01/23/23 Matthew Rushing MD [address] [place] [address] 08128 [facility] Specialist Cardiology - General 01/30/23 01/30/23 Guerita Elliott PA-C [address] [place] [address] 33970 [facility] Specialist Cardiothoracic Surgery 01/30/23 3 Guerita Elliott PA-C [address] [place] [address] 28372 [facility] Specialist Cardiothoracic Surgery 02/06/23 3 Matthew Rushing MD [address] [place] [address] 93596 [facility] Specialist Cardiology - General 02/06/23 02/06/23 Matthew Rushing MD [address] [place] [address] 57239 [facility] Specialist Cardiology - General 02/13/23 02/13/23 Guerita Elliott PA-C [address] 75747 [facility] Specialist Cardiothoracic Surgery 02/13/23 Guerita Elliott PA-C [address] 30055 [facility] Specialist Cardiothoracic Surgery 02/20/23 02/20/23 Matthew Rushing MD [address] [place] [address] 50451 [facility] Specialist Cardiology - General 02/20/23 02/20/23 Matthew Rushing MD [address] [place] [address] 74643 [facility] Specialist Cardiology - General 02/27/23 02/27/23 Guerita Elliott PA-C [address] 73691 [facility] Specialist Cardiothoracic Surgery 02/27/23 3 Matthew Rushing MD [address] [place] [address] 33612 [facility] Specialist Cardiology - General 03/06/23 03/06/23 Guerita Elliott PA-C [address] 71319 [facility] Specialist Cardiothoracic Surgery 03/06/23 3 Matthew Rushing MD [address] [place] [address] 86918 [facility] Specialist Cardiology - General 03/13/23 03/13/23 Guerita Elliott PA-C [address] 49844 [facility] Specialist Cardiothoracic Surgery 03/13/23 3 Guerita Elliott PA-C [address] 30318 [facility] Specialist Cardiothoracic Surgery 03/20/23 3 Matthew Rushing MD [address] [place] [address] 39271 [facility] Specialist Cardiology - General 03/20/23 03/20/23 Matthew Rushing MD [address] [place] [address] 42940 [facility] Specialist Cardiology - General 03/27/23 03/27/23 Guerita Elliott PA-C [address] 69041 [facility] Specialist Cardiothoracic Surgery 03/27/23 3 Guerita Elliott PA-C [address] [place] [address] [facility] Specialist Cardiothoracic Surgery 04/03/23 Matthew Rushing MD [address] [place] [address] 27776 [facility] Specialist Cardiology - General 04/03/23 04/03/23 Guerita Elliott PA-C [address] 17571 [facility] Specialist Cardiothoracic Surgery 04/10/23 Matthew Rushing MD [address] [place] [address] 19759 [facility] Specialist Cardiology - General 04/10/23 04/10/23 Matthew Rushing MD [address] [place] [address] 62667 [facility] Specialist Cardiology - General 04/17/23 04/17/23 Guerita Elliott PA-C [address] 62039 [facility] Specialist Cardiothoracic Surgery 04/17/23 Matthew Rushing MD [address] [place] [address] 49282 [facility] Specialist Cardiology - General 04/24/23 04/24/23 Guerita Elliott PA-C [address] 82454 [facility] Specialist Cardiothoracic Surgery 04/24/23 Matthew Rushing MD [address] [place] [address] 39742 [facility] Specialist Cardiology - General 05/01/23 05/01/23 Guerita Elliott PA-C [address] 29710 [facility] Specialist Cardiothoracic Surgery 05/01/23 Guerita Elliott PA-C [address] 56583 [facility] Specialist Cardiothoracic Surgery 05/08/23 Matthew Rushing MD [address] [place] [address] 37401 [facility] Specialist Cardiology - General 05/08/23 05/08/23 Matthew Rushing MD [address] [place] [address] 40573 [facility] Specialist Cardiology - General 05/15/23 05/15/23 Guerita Elliott PA-C [address] 12632 [facility] Specialist Cardiothoracic Surgery 05/15/23 Matthew Rushing MD [address] [place] [address] 39620 [facility] Specialist Cardiology - General 05/22/23 05/22/23 Guerita Elliott PA-C [address] [place] [address] [facility] Specialist Cardiothoracic Surgery 05/22/23 3 Matthew Rushing MD [address] [place] [address] 12767 [facility] Specialist Cardiology - General 05/29/23 05/29/23 Guerita Elliott PA-C [address] 39885 [facility] Specialist Cardiothoracic Surgery 05/29/23 Guerita Elliott PA-C [address] 03878 [facility] Specialist Cardiothoracic Surgery 06/05/23 Matthew Rushing MD [address] [place] [address] 65139 [facility] Specialist Cardiology - General 06/05/23 06/05/23 Guerita Elliott PA-C [address] 83127 [facility] Specialist Cardiothoracic Surgery 06/12/23 Matthew Rushing MD [address] [place] [address] 33191 [facility] Specialist Cardiology - General 06/12/23 06/12/23 Guerita Elliott PA-C [address] 14193 [facility] Specialist Cardiothoracic Surgery 06/19/23 Matthew Rushing MD [address] [place] [address] 36486 [facility] Specialist Cardiology - General 06/19/23 06/19/23 Guerita Elliott PA-C [address] [place] [address] 21343 [facility] Specialist Cardiothoracic Surgery 06/26/23 06/26/23 Matthew Rushing MD [address] [place] [address] 62251 [facility] Specialist Cardiology - General 06/26/23 06/26/23 Guerita Elliott PA-C [address] [place] [address] 89534 [facility] Specialist Cardiothoracic Surgery 07/03/23 4 Matthew Rushing MD [address] [place] [address] 70902 [facility] Specialist Cardiology - General 07/03/23 07/03/23 Guerita Elliott PA-C [address] [place] [address] 55180 [facility] Specialist Cardiothoracic Surgery 07/10/23 4 Matthew Rushing MD [address] [place] [address] 85104 [facility] Specialist Cardiology - General 07/10/23 07/10/23 Matthew Rushing MD [address] [place] [address] 43201 [facility] Specialist Cardiology - General 07/17/23 07/17/23 Gureita Elliott PA-C [address] 58950 [facility] Specialist Cardiothoracic Surgery 07/17/23 4 Matthew Rushing MD [address] [place] [address] 95665 [facility] Specialist Cardiology - General 07/24/23 07/24/23 Guerita Elliott PA-C [address] 56662 [facility] Specialist Cardiothoracic Surgery 07/24/23 07/24/23 Matthew Rushing MD [address] [place] [address] 33924 [facility] Specialist Cardiology - General 07/31/23 07/31/23 Guerita Elliott PA-C [address] 01590 [facility] Specialist Cardiothoracic Surgery 07/31/23 4 Guerita Elliott PA-C [address] 38388 [facility] Specialist Cardiothoracic Surgery 08/07/23 4 aMtthew Rushing MD [address] [place] [address] 70568 [facility] Specialist Cardiology - General 08/07/23 08/07/23 Guerita Elliott PA-C [address] 99893 [facility] Specialist Cardiothoracic Surgery 08/14/23 4 Matthew Rushing MD [address] [place] [address] 67004 [facility] Specialist Cardiology - General 08/14/23 08/14/23 Matthew Rushing MD [address] [place] [address] 15220 [facility] Specialist Cardiology - General 08/21/23 08/21/23 Guerita Elliott PA-C [address] [place] [address] 66932 [facility] Specialist Cardiothoracic Surgery 08/21/23 08/21/23 Matthew Rushing MD [address] [place] [address] 23393 [facility] Specialist Cardiology - General 08/28/23 08/28/23 Guerita Elliott PA-C [address] [place] [address] 65431 [facility] Specialist Cardiothoracic Surgery 08/28/23 4 Guerita Elliott PA-C [address] 66322 [facility] Specialist Cardiothoracic Surgery 09/04/23 4 Matthew Rushing MD [address] [place] [address] 97829 [facility] Specialist Cardiology - General 09/04/23 09/04/23 Matthew Rushing MD [address] [place] [address] 64174 [facility] Specialist Cardiology - General 09/11/23 09/11/23 Guerita Elliott PA-C [address] 31959 [facility] Specialist Cardiothoracic Surgery 09/11/23 4 Matthew Rushing MD [address] [place] [address] 12400 [facility] Specialist Cardiology - General 09/18/23 09/18/23 Guerita Elliott PA-C [address] [place] [address] 75743 [facility] Specialist Cardiothoracic Surgery 09/18/23 4 Matthew Rushing MD [address] [place] [address] 57384 [facility] Specialist Cardiology - General 09/25/23 09/25/23 Guerita Elliott PA-C [address] [place] [address] 64480 [facility] Specialist Cardiothoracic Surgery 09/25/23 09/25/23 Matthew Rushing MD [address] [place] [address] 37378 [facility] Specialist Cardiology - General 10/02/23 10/02/23 Guerita Elliott PA-C [address] 48596 [facility] Specialist Cardiothoracic Surgery 10/02/23 4 Guerita Elliott PA-C [address] 81311 [facility] Specialist Cardiothoracic Surgery 10/09/23 4 Matthew Rushing MD [address] [place] [address] 82010 [facility] Specialist Cardiology - General 10/09/23 10/09/23 Matthew Rushing MD [address] [place] [address] 92249 [facility] Specialist Cardiology - General 10/16/23 10/16/23 Guerita Elliott PA-C [address] 62835 [facility] Specialist Cardiothoracic Surgery 10/16/23 4 Matthew Rushing MD [address] [place] [address] 68338 [facility] Specialist Cardiology - General 10/23/23 10/23/23 Guerita Elliott PA-C [address] 69513 [facility] Specialist Cardiothoracic Surgery 10/23/23 10/23/23 Matthew Rushing MD [address] [place] [address] 55413 [facility] Specialist Cardiology - General 10/30/23 10/30/23 Guerita Elliott PA-C [address] 16756 [facility] Specialist Cardiothoracic Surgery 10/30/23 4 Guerita Elliott PA-C [address] 26472 [facility] Specialist Cardiothoracic Surgery 11/06/23 4 Matthew Rushing MD [address] [place] [address] 55674 [facility] Specialist Cardiology - General 11/06/23 11/06/23 Matthew Rushing MD [address] [place] [address] 45708 [facility] Specialist Cardiology - General 11/13/23 11/13/23 Guerita Elliott PA-C [address] 82754 [facility] Specialist Cardiothoracic Surgery 11/13/23 4 Guerita Elliott PA-C [address] 07984 [facility] Specialist Cardiothoracic Surgery 11/20/23 11/20/23 Matthew Rushing MD [address] [place] [address] 20046 [facility] Specialist Cardiology - General 11/20/23 11/20/23 Guerita Elliott PA-C [address] 40581 [facility] Specialist Cardiothoracic Surgery 11/27/23 11/27/23 Matthew Rushing MD [address] [place] [address] 55042 [facility] Specialist Cardiology - General 11/27/23 11/27/23 Guerita Elliott PA-C [address] 26921 [facility] Specialist Cardiothoracic Surgery 12/04/23 4 Matthew Rushing MD [address] [place] [address] 88261 [facility] Specialist Cardiology - General 12/04/23 12/04/23 Matthew Rushing MD [address] [place] [address] 86778 [facility] Specialist Cardiology - General 12/11/23 12/11/23 Guerita Elliott PA-C [address] 84199 [facility] Specialist Cardiothoracic Surgery 12/11/23 4 Guerita Elliott PA-C [address] 47300 [facility] Specialist Cardiothoracic Surgery 12/18/23 4 Matthew Rushing MD [address] [place] [address] 99522 [facility] Specialist Cardiology - General 12/18/23 12/18/23 Guerita Elliott PA-C [address] 15025 [facility] Specialist Cardiothoracic Surgery 12/25/23 12/25/23 Matthew Rushing MD [address] [place] [address] 07637 [facility] Specialist Cardiology - General 12/25/23 12/25/23 Guerita Elliott PA-C [address] 32264 [facility] Specialist Cardiothoracic Surgery 01/01/24 4 Matthew Rushing MD [address] [place] [address] 90993 [facility] Specialist Cardiology - General 01/01/24 01/01/24 Guerita Elliott PA-C [address] [place] [address] 10975 [facility] Specialist Cardiothoracic Surgery 01/08/24 4 Matthew Rushing MD [address] [place] [address] 54773 [facility] Specialist Cardiology - General 01/08/24 01/08/24 Guerita Elliott PA-C [address] [place] [address] 78535 [facility] Specialist Cardiothoracic Surgery 01/15/24 4 Matthew Rushing MD [address] [place] [address] 36399 [facility] Specialist Cardiology - General 01/15/24 01/15/24 Matthew Rushing MD [address] [place] [address] 26753 [facility] Specialist Cardiology - General 01/22/24 01/22/24 Guerita Elliott PA-C [address] 25980 [facility] Specialist Cardiothoracic Surgery 01/22/24 01/22/24 Guerita Elliott PA-C [address] 68409 [facility] Specialist Cardiothoracic Surgery 01/29/24 4 Matthew Rushing MD [address] [place] [address] 16914 [facility] Specialist Cardiology - General 01/29/24 01/29/24 Matthew Rushing MD [address] [place] [address] 49823 [facility] Specialist Cardiology - General 02/05/24 02/05/24 Guerita Elliott PA-C [address] 53549 [facility] Specialist Cardiothoracic Surgery 02/05/24 4 Matthew Rushing MD [address] [place] [address] 10598 [facility] Specialist Cardiology - General 02/12/24 02/12/24 Guerita Elliott PA-C [address] 08300 [facility] Specialist Cardiothoracic Surgery 02/12/24 4 Guerita Elliott PA-C [address] 22158 [facility] Specialist Cardiothoracic Surgery 02/19/24 02/19/24 Matthew Rushing MD [address] [place] [address] 31098 [facility] Specialist Cardiology - General 02/19/24 02/19/24 Matthew Rushing MD [address] [place] [address] 64730 [facility] Specialist Cardiology - General 02/26/24 02/26/24 Guerita Elliott PA-C [address] 21416 [facility] Specialist Cardiothoracic Surgery 02/26/24 02/26/24 Guerita Elliott PA-C [address] 54648 [facility] Specialist Cardiothoracic Surgery 03/04/24 4 Matthew Rushing MD [address] [place] [address] 11024 [facility] Specialist Cardiology - General 03/04/24 03/04/24 Guerita Elliott PA-C [address] 85095 [facility] Specialist Cardiothoracic Surgery 03/11/24 4 Matthew Rushing MD [address] [place] [address] 25561 [facility] Specialist Cardiology - General 03/11/24 03/11/24 Matthew Rushing MD [address] [place] [address] 50675 [facility] Specialist Cardiology - General 03/18/24 03/18/24 Guerita Elliott PA-C [address] 07847 [facility] Specialist Cardiothoracic Surgery 03/18/24 4 Matthew Rushing MD [address] [place] [address] 49125 [facility] Specialist Cardiology - General 03/25/24 03/25/24 Guerita Elliott PA-C [address] 47909 [facility] Specialist Cardiothoracic Surgery 03/25/24 4 Matthew Rushing MD [address] [place] [address] 91373 [facility] Specialist Cardiology - General 04/01/24 04/01/24 Guerita Elliott PA-C [address] 02166 [facility] Specialist Cardiothoracic Surgery 04/01/24 Guerita Elliott PA-C [address] 79628 [facility] Specialist Cardiothoracic Surgery 04/08/24 Matthew Rushing MD [address] [place] [address] 70100 [facility] Specialist Cardiology - General 04/08/24 04/08/24 Guerita Elliott PA-C [address] 94751 [facility] Specialist Cardiothoracic Surgery 04/15/24 Matthew Rushing MD [address] [place] [address] 12078 [facility] Specialist Cardiology - General 04/15/24 04/15/24 Guerita Elliott PA-C [address] 49468 [facility] Specialist Cardiothoracic Surgery 04/22/24 4 Matthew Rushing MD [address] [place] [address] 02108 [facility] Specialist Cardiology - General 04/22/24 04/22/24 Matthew Rushing MD [address] [place] [address] 67950 [facility] Specialist Cardiology - General 04/29/24 04/29/24 Guerita Elliott PA-C [address] 64897 [facility] Specialist Cardiothoracic Surgery 04/29/24 Matthew Rushing MD [address] [place] [address] 07263 [facility] Specialist Cardiology - General 05/06/24 05/06/24 Guerita Elliott PA-C [address] 96266 [facility] Specialist Cardiothoracic Surgery 05/06/24 Matthew Rushing MD [address] [place] [address] 31222 [facility] Specialist Cardiology - General 05/13/24 05/13/24 Guerita Elliott PA-C [address] 68986 [facility] Specialist Cardiothoracic Surgery 05/13/24 Guerita Elliott PA-C [address] 55260 [facility] Specialist Cardiothoracic Surgery 05/20/24 4 Matthew Rushing MD [address] [place] [address] 95234 [facility] Specialist Cardiology - General 05/20/24 05/20/24 Guerita Elliott PA-C [address] 32431 [facility] Specialist Cardiothoracic Surgery 05/27/24 4 Matthew Rushing MD [address] [place] [address] 65173 [facility] Specialist Cardiology - General 05/27/24 05/27/24 Guerita Elliott PA-C [address] 57307 [facility] Specialist Cardiothoracic Surgery 06/03/24 Matthew Rushing MD [address] [place] [address] 32473 [facility] Specialist Cardiology - General 06/03/24 06/03/24 Guerita Elliott PA-C [address] 21415 [facility] Specialist Cardiothoracic Surgery 06/10/24 Matthew Rushing MD [address] [place] [address] 96482 [facility] Specialist Cardiology - General 06/10/24 06/10/24 Guerita Elliott PA-C [address] 61624 [facility] Specialist Cardiothoracic Surgery 06/17/24 Matthew Rushing MD [address] [place] [address] 62844 [facility] Specialist Cardiology - General 06/17/24 06/17/24 documented as of this encounter
--- OUTSIDE RECORDS SUMMARY | 2024-06-24 04:36 | XMS_ITS | Encounter Summary ---
Author Organization [facility] alth Address [address] [facility] [place] [address] Care Team Providers Care Director Of Emergency Nursing Name Role Phone Kilo Wang MD Unavailable [phone] Juan Haddad MD Unavailable Dasha Sheppard PA-C Primary Care Provider Reason for Visit * Reason Onset Date Comments Cough 06/07/2020 Shortness Of Breath 06/07/2020 Encounter Details Date Type Department Care Team (Late st Contact Info) Description 06/07/2020 Telephone [facility] [address], [address] [place] [id number] Dasha Sheppard, PASeverino [address] [facility] [place] [id number] Cough; Shortness Of Breath Social History Tobacco Use Types Packs/Day Years [...] encounter Miscellaneous Notes * Telephone Encounter - Israel Zuniga LPN - 06/07/2020 8:09 AM EST pc with pt. Pt has sob and cough (dry). No fever, no vomiting, no diarrhea. Pt can smell and taste.Some congestion. Onset last night. Pt was not around anyone with positive covid. televideo visit schedule. Nurse visit scheduled for covid test. documented in this encounter Plan of Treatment [...] as of this encounter Care Teams Director Of Emergency Nursing Relationship Specialty Start Date End Date Dasha Sheppard PA-C [address] [place] [address] PCP - General Family Practice 04/12/18 07/10/23 Kilo Wang MD Consulting Physician Neurology 08/30/16 12/01/21 Juan Haddad MD [address] [address] [address] Otolaryngology 09/23/17 documented as of this encounter
--- OUTSIDE RECORDS SUMMARY | 2024-06-24 04:36 | XMS_ITS | Encounter Summary ---
Author Organization [facility] alth Address [address] [place] [address] Care Team Providers Care Extension Associate Name Role Phone Kilo Wang MD Unavailable [phone] Juan Haddad MD Unavailable [phone] Dasha Sheppard PA-C Primary Care Provider Reason for Visit * Reason Onset Date Comments Refill Request 06/04/2020 Amlodipine [id number] Encounter Details Date Type Department Care Team (Late st Contact Info) Description 06/04/2020 Refill [facility] [address] [id number] Matthew Rushing MD [address] [place] [id number] Refill Request (Amlodipine [facility] #[id number]) Social History Tobacco Use Types Packs/Day Years Used Date Smoking Tobacco: Never Smokeless Tobacco: Current Chew Comments:chewing tobacco 2 c ans/week Alcohol Use Standard Drinks/Week Comments No 0 (1 standard drink = 0.6 oz pur e alcohol) Intimate Partner Violence Answer Date R ecorded [...] or family member? Not on file 05/08/2020 Sex and Gender Information Value Date Recorded Sex Assigned at Not on file Legal Sex Male 11:25 PM EST Gender Identity Male 11/21/2019 7:11 PM EDT Sexual Orientation Not on file documented as of this encounter Miscellaneous Notes * Telephone Encounter - Daphney Renteria - 06/04/2020 11:42 AM EST [facility] Refill Request Request for refill received from patient via [employer] for his prescription for Amlodipine 5 mg tablet to be sent to [facility]/Pharmacy #[id number]. Last G provider office visit: 03/25/2020 С[facility]гей Last BMP: Lab Results Component Value Date/Time GLUCOSE 88 02/02/2019 10:23 AM SODIUM 138 02/02/2019 10:23 AM POTASSIUM 4.3 02/02/2019 10:23 AM CHLORIDE 101 02/02/2019 10:23 AM BUN 12 02/02/2019 10:23 AM CREATININE 0.9 02/02/2019 10:23 AM CALCIUM 9.6 02/02/2019 10:23 AM GFR >60 02/02/2019 10:23 AM documented in this encounter Plan of Treatment Not on file documented as of this encounter Goals Goal Patient Goal Type Associated Problems Recent Progress Patient-Stated? Author Blood Pressure < 140/90 Blood Pressure 160/96( 024 8:13 AM EDT) No Kilo Wang MD documented as of this encounter Visit Diagnoses Not on filedocumented in this encounter Care Teams Extension Associate Relationship Specialty Start Date End Date Dasha Sheppard PA-C [address] [place] [address] [place] [id number] PCP - General Family Practice 04/12/18 07/10/23 Kilo Wang MD Consulting Physician Neurology 08/30/16 12/01/21 Juan Haddad MD [address] [place] [address] [address] Otolaryngology 09/23/17 documented as of this encounter
--- OUTSIDE RECORDS SUMMARY | 2024-06-24 04:36 | XMS_ITS | Encounter Summary ---
Author Organization [facility] alth Address [address] [address] Care Team Providers Care Live In Housekeeper Name Role Phone Kilo Wang MD Unavailable [phone] Juan Haddad MD Unavailable [phone] Dasha Sheppard PA-C Primary Care Provider Trey Jennings MD Unavailable +[phone] Guerita Elliott-C Unavailable +[phone] Matthew Rushing MD Unavailable +[phone] Matthew Rushing MD Unavailable +[phone] Matthew Rushing MD Unavailable +[phone] Matthew Rushing MD Unavailable +[phone] Matthew Rushing MD Unavailable +[phone] Matthew Rushing MD Unavailable +[phone] Matthew Rushing MD Unavailable +[phone] Matthew Rushing MD Unavailable +[phone] Matthew Rushing MD Unavailable +[phone] Matthew Rushing MD Unavailable +[phone] Matthew Rushing MD Unavailable +[phone] Matthew Rushing MD Unavailable +[phone] Matthew Rushing MD Unavailable +[phone] Matthew Rushing MD Unavailable +[phone] Trey Jennings MD Unavailable +4 -5 Guerita Elliott PA-C Unavailable +4 -5 Matthew Rushing MD Unavailable +[phone] Guerita Elliott J PA-C Unavailable +4 -5 Matthew Rushing MD Unavailable +[phone] Matthew Rushing MD Unavailable +[phone] Guerita Elliott PA-C Unavailable +4 -5 Guerita Elliott PA-C Unavailable +4 [phone] Matthew Rushing MD Unavailable +[phone] Guerita Elliott PA-C Unavailable +4 -5 Matthew Rushing MD Unavailable +[phone] Matthew Rushing MD Unavailable +[phone] Guerita Elliott PA-C Unavailable +4 -5 Matthew Rushing MD Unavailable +[phone] Guerita Elliott PA-C Unavailable +4 [phone] Matthew Rushing MD Unavailable +[phone] Guerita Elliott PA-C Unavailable +4 -4995 Guerita Elliott PA-C Unavailable +[phone] Matthew Rushing MD Unavailable +[phone] Guerita Elliott PA-C Unavailable +4 -[phone] Matthew Rushing MD Unavailable +[phone] Guerita Elliott PA-C Unavailable +[phone] Matthew Rushing MD Unavailable +[phone] [place], Guerita J PA-C Unavailable +4 -5 Matthew Rushing MD Unavailable +[phone] Matthew Rushing MD Unavailable +[phone] Guerita Elliott PA-C Unavailable +4 [phone] Matthew Rushing MD Unavailable +[phone] Guerita Elliott J PA-C Unavailable +4 -[phone] Guerita Elliott J PA-C Unavailable +4 -4995 Matthew Rushing MD Unavailable +[phone] Matthew Rushing MD Unavailable +[phone] Guerita Elliott J PA-C Unavailable +4 -4995 Guerita Elliott Kim PA-C Unavailable +[phone] Matthew Rushing MD Unavailable +[phone] Matthew Rushing MD Unavailable +[phone] Guerita Elliott Kim PA-C Unavailable +[phone] Guerita Elliott Kim PA-C Unavailable +4 -4995 Matthew Rushing MD Unavailable +[phone] Matthew Rushing MD Unavailable +[phone] Guerita Elliott Kim PA-C Unavailable +4 -4995 [place] Creek[place]illi pinoher Alvarez PA-C Unavailable +[phone] Matthew Rushing MD Unavailable +[phone] Matthew Rushing MD Unavailable +[phone] Guerita Elliott J PA-C Unavailable +4 -[phone] EarlLilliGuerita J PA-C Unavailable +[phone] Matthew Rushing MD Unavailable +[phone] Guerita Elliott Kim PA-C Unavailable +[phone] Matthew Rushing MD Unavailable +[phone] Matthew Rushing MD Unavailable +[phone] Earl Guerita J PA-C Unavailable +4 -5 Lilli Elliotther J PA-C Unavailable +4 -4995 Matthew Rushing MD Unavailable +[phone] Matthew Rushing MD Unavailable +[phone] Earl Guerita J PA-C Unavailable +4 -[phone] Earl Guerita J PA-C Unavailable +4 -4995 Matthew Rushing MD Unavailable Matthew Rushing MD Unavailable +[phone] Guerita Elliott PA-C Unavailable +4 -5 Matthew Rushing MD Unavailable +[phone] EarlGuerita J PA-C Unavailable +4 -4995 Matthew Rushing MD Unavailable +[phone] EarlGuerita pino J PA-C Unavailable +4 -4995 Guerita Elliott J PA-C Unavailable +4 -4995 Matthew Rushing MD Unavailable +[phone] Matthew Rushing MD Unavailable Guerita Elliott J PA-C Unavailable +4 -4995 EarlGuerita pino J PA-C Unavailable +[phone] Matthew Rushing MD Unavailable +[phone] Matthew Rushing MD Unavailable +[phone] Lilli Elliotther J PA-C Unavailable +[phone] Matthew Rushing MD Unavailable +[phone] Guerita Elliott PA-C Unavailable +4 -4995 Matthew Rushing MD Unavailable +[phone] Lilli Elliotther Alvarez PA-C Unavailable +4 -5 Earl Guerita J PA-C Unavailable +4 -5 Matthew Rushing MD Unavailable +[phone] Matthew Rushing MD Unavailable +[phone] Earl Guerita J PA-C Unavailable +4 -[phone] [place] Guerita J PA-C Unavailable +[phone] Matthew Rushing MD Unavailable +[phone] Earl Guerita Alvarez PA-C Unavailable +4 -5 Matthew Rushing MD Unavailable +[phone] Matthew Rushing MD Unavailable +[phone] Earl Guerita Alvarez PA-C Unavailable +4 -5 Matthew Rushing MD Unavailable +[phone] Earl Guerita Alvarez PA-C Unavailable +[phone] Matthew Rushing MD Unavailable +[phone] Guerita Elliott PA-C Unavailable +4 -4995 Guerita Elliott PA-C Unavailable +[phone] Matthew Rushing MD Unavailable +[phone] Matthew Rushing MD Unavailable +[phone] Guerita Elliott PA-C Unavailable +[phone] Matthew Rushing MD Unavailable +[phone] Guerita Elliott PA-C Unavailable +4 -4995 Matthew Rushing MD Unavailable +[phone] Guerita Elliott PA-C Unavailable +[phone] Guerita Elliott PA-C Unavailable +[phone] -[phone] Matthew Rushing MD Unavailable +[phone] Guerita Elliott-C Unavailable +4 -4995 Matthew Rushing MD Unavailable +[phone] Guerita Elliott PA-C Unavailable +4 -4995 Matthew Rushing MD Unavailable +[phone] Guerita Elliott PA-C Unavailable +4 -4995 Matthew Rushing MD Unavailable +[phone] Guerita Elliott-C Unavailable +[phone] Matthew Rushing MD Unavailable +[phone] Guerita Elliott PA-C Unavailable +[phone] Matthew Rushing MD Unavailable +[phone] Txfr Provider [facility], Temporary Primary Care Provider Matthew Rushing MD Unavailable +[phone] Guerita Elliott-C Unavailable +[phone] Matthew Rushing MD Unavailable +[phone] Guerita Elliott PA-C Unavailable +4 -4995 Matthew Rushing MD Unavailable +[phone] Guerita Elliott-C Unavailable +4 -4995 Guerita Elliott PA-C Unavailable +[phone] Matthew Rushing MD Unavailable +[phone] Guerita Elliott-C Unavailable +[phone] Matthew Rushing MD Unavailable +[phone] Matthew Rushing MD Unavailable +[phone] Guerita Elliott-C Unavailable +[phone] Matthew Rushing MD Unavailable +[phone] Guerita Elliott PA-C Unavailable +4 -5 Guerita Elliott Kim PA-C Unavailable +4 -499 Matthew Rushing MD Unavailable +[phone] Matthew Rushing MD Unavailable +[phone] Guerita Elliott Kim PA-C Unavailable +4 -4995 Matthew Rushing MD Unavailable +[phone] Guerita Elliott PA-C Unavailable +[phone] Matthew Rushing MD Unavailable Guerita Elliott PA-C Unavailable +4 -[phone] Matthew Rushing MD Unavailable +[phone] Guerita Elliott PA-C Unavailable +4 -4995 Guerita Elliott J PA-C Unavailable +4 -4995 Matthew Rushing MD Unavailable +[phone] Matthew Rushing MD Unavailable +[phone] Guerita Elliott Kim PA-C Unavailable +4 -4995 Matthew Rushing MD Unavailable +[phone] Guerita Elliott Kim PA-C Unavailable +4 -4995 Matthew Rushing MD Unavailable +[phone] Guerita Elliott PA-C Unavailable +4 -4995 Guerita Elliott Kim PA-C Unavailable +[phone] Matthew Rushing MD Unavailable +[phone] Matthew Rushing MD Unavailable Guerita Elliott J PA-C Unavailable +4 -[phone] EarlGuerita Kim PA-C Unavailable +4 -4995 Matthew Rushing MD Unavailable +[phone] Guerita Elliott PA-C Unavailable +4 -4995 Matthew Rushing MD Unavailable +[phone] Guerita Elliott PA-C Unavailable +4 -4995 Matthew Rushing MD Unavailable +[phone] Matthew Rushing MD Unavailable +[phone] Guerita Elliott PA-C Unavailable +[phone] Matthew Del Toro MD Primary Care Provider [phone] Guerita Elliott PA-C Unavailable +[phone] Matthew Rushing MD Unavailable +[phone] Guerita Elliott PA-C Unavailable +[phone] Matthew Rushing MD Unavailable +[phone] Guerita Elliott PA-C Unavailable +[phone] Matthew Rushing MD Unavailable +[phone] Guerita Elliott PA-C Unavailable +[phone] Matthew Rushing MD Unavailable +[phone] Guerita Elliott PA-C Unavailable +[phone] Matthew Rushing MD Unavailable +[phone] Matthew Rushing MD Unavailable +[phone] Guerita Elliott PA-C Unavailable +[phone] Guerita Elliott PA-C Unavailable +[phone] Matthew Rushing MD Unavailable +[phone] Matthew Rushing MD Unavailable +[phone] Guerita Elliott PA-C Unavailable +[phone] Matthew Rushing MD Unavailable +[phone] Guerita Elliott PA-C Unavailable +[phone] Guerita Elliott PA-C Unavailable Matthew Rushing MD Unavailable +[phone] Matthew Rushing MD Unavailable +[phone] Guerita ElliottC Unavailable Guerita Elliott PA-C Unavailable +[phone] Matthew Rushing MD Unavailable +[phone] Guerita ElliottC Unavailable Matthew Rushing MD Unavailable +[phone] Matthew Rushing MD Unavailable +[phone] Guerita Elliott PA-C Unavailable Matthew Rushing MD Unavailable +[phone] Guerita Elliott PA-C Unavailable Encounter Details Date Type Department Care Team (Late st Contact Info) Description 04/22/2021 Telephone [facility] [address] [place] [id number] Delfino Aragon CRNP [facility] [address] [place] [address] Social History Tobacco Use Types Packs/Day Years [...] encounter Miscellaneous Notes * Telephone Encounter - Julieta Macias - 04/22/2021 1:53 PM EDT Patient is scheduled for CT abd/pelvis at [place] on 05/01/2021 9:00 am. Patient is to be on clear liquids only 4 hrs prior to test and will need to pickup driver contrast. Patient v/u, prep instructions mailed. documented in this encounter Plan of Treatment Not on file documented as of this encounter Goals Goal Patient Goal Type Associated Problems Recent Progress Patient-Stated? Author Blood Pressure < 140/90 Blood Pressure 160/96( 024 8:13 AM EDT) No Kilo Wang MD documented as of this encounter Visit Diagnoses Not on filedocumented in this encounter Care Teams Live In Housekeeper Relationship Specialty Start Date End Date Dasha Sheppard PA-C [address] [place] [address] PCP - General Family Practice 04/12/18 07/10/23 Txfr Provider [facility], Temporary [address] [facility] [address] [place] [address] PCP - General Family Practice 07/11/23 12/11/23 Matthew Del Toro MD [address] [facility] [address] [place] [address] PCP - General Family Practice 12/12/23 Kilo Wang MD Consulting Physician Neurology 08/30/16 12/01/21 Juan Haddad MD [address] [place] [address] Otolaryngology 09/23/17 Trey Jennings MD [address] [facility] [address] [place] [address] Consulting Physician Cardiothoracic Surgery 07/13/21 Guerita Elliott PA-C [address] [facility] [place] [address] [place] [address] [facility] Specialist Cardiothoracic Surgery 01/03/22 06/27/22 Matthew Rushing MD [address] [place] [address] [facility] Specialist Cardiology - General 03/07/22 03/28/22 Matthew Rushing MD [address] [place] [address] [facility] Specialist Cardiology - General 04/04/22 04/04/22 Matthew Rushing MD [address] [place] [address] [facility] Specialist Cardiology - General 04/11/22 04/11/22 Matthew Rushing MD [address] [place] [address] [facility] Specialist Cardiology - General 04/18/22 04/18/22 Matthew Rushing MD [address] [place] [address] [facility] Specialist Cardiology - General 04/25/22 04/25/22 Matthew Rushing MD [address] [place] [address] [facility] Specialist Cardiology - General 05/02/22 05/02/22 Matthew Rushing MD [address] [place] [address] [facility] Specialist Cardiology - General 05/09/22 05/09/22 Matthew Rushing MD [address] [place] [address] [facility] Specialist Cardiology - General 05/16/22 05/16/22 Matthew Rushing MD [address] [place] [address] [facility] Specialist Cardiology - General 05/23/22 05/23/22 Matthew Rushing MD [address] [place] [address] [facility] Specialist Cardiology - General 05/30/22 05/30/22 Matthew Rushing MD [address] [place] [address] [facility] Specialist Cardiology - General 06/06/22 06/06/22 Matthew Rushing MD [address] [place] [address] [facility] Specialist Cardiology - General 06/13/22 06/13/22 Matthew Rushing MD [address] [place] [address] 165[address] [facility] Specialist Cardiology - General 06/20/22 06/20/22 Matthew Rushing MD [address] [place] [address] [facility] Specialist Cardiology - General 06/27/22 06/27/22 Trey Jennings MD [address] [place] [address] [address] [place] [address] [facility] Specialist Cardiothoracic Surgery 06/27/22 Guerita Elliott PA-C [address] [place] [address] [address] [facility] Specialist Cardiothoracic Surgery 07/04/22 3 Matthew Rushing MD [address] [place] [address] [facility] Specialist Cardiology - General 07/04/22 07/04/22 Guerita Elliott PA-C [address] [address] [facility] Specialist Cardiothoracic Surgery 07/11/22 3 Matthew Rushing MD [address] [place] [address] [facility] Specialist Cardiology - General 07/11/22 07/11/22 Matthew Rushing MD [address] [place] [address] [facility] Specialist Cardiology - General 07/18/22 07/18/22 Guerita Elliott PA-C [address] [address] [facility] Specialist Cardiothoracic Surgery 07/18/22 3 Guerita Elliott PA-C [address] [address] [facility] Specialist Cardiothoracic Surgery 07/25/22 07/25/22 Matthew Rushing MD [address] [place] [address] [facility] Specialist Cardiology - General 07/25/22 07/25/22 Guerita Elliott PA-C [address] [address] [facility] Specialist Cardiothoracic Surgery 08/01/22 3 Matthew Rushing MD [address] [place] [address] [facility] Specialist Cardiology - General 08/01/22 08/01/22 Matthew Rushing MD [address] [place] [address] [facility] Specialist Cardiology - General 08/08/22 08/08/22 Guerita Elliott PA-C [address] [place] [address] [facility] Specialist Cardiothoracic Surgery 08/08/22 3 Matthew Rushing MD [address] [place] [address] [facility] Specialist Cardiology - General 08/15/22 08/15/22 Guerita Elliott PA-C [address] [address] [facility] Specialist Cardiothoracic Surgery 08/15/22 3 Matthew Rushing MD [address] [place] [address] 137[address] [facility] Specialist Cardiology - General 08/22/22 08/22/22 Guerita Elliott PA-C [address] [address] [facility] Specialist Cardiothoracic Surgery 08/22/22 08/22/22 Guerita Elliott PA-C [address] [address] [facility] Specialist Cardiothoracic Surgery 08/29/22 3 Matthew Rushing MD [address] [place] [address] 160[address] [facility] Specialist Cardiology - General 08/29/22 08/29/22 Guerita Elliott PA-C [address] [address] [facility] Specialist Cardiothoracic Surgery 09/05/22 3 Matthew Rushing MD [address] [place] [address] [facility] Specialist Cardiology - General 09/05/22 09/05/22 Guerita Elliott PA-C [address] [address] [facility] Specialist Cardiothoracic Surgery 09/12/22 3 Matthew Rushing MD [address] [place] [address] [facility] Specialist Cardiology - General 09/12/22 09/12/22 Guerita Elliott PA-C [address] [address] [facility] Specialist Cardiothoracic Surgery 09/19/22 09/19/22 Matthew Rushing MD [address] [place] [address] [facility] Specialist Cardiology - General 09/19/22 09/19/22 Matthew Rushing MD [address] [place] [address] [facility] Specialist Cardiology - General 09/26/22 09/26/22 Guerita Elliott PA-C [address] [address] [facility] Specialist Cardiothoracic Surgery 09/26/22 09/26/22 Matthew Rushing MD [address] [place] [address] [facility] Specialist Cardiology - General 10/03/22 10/03/22 Guerita Elliott PA-C [address] [address] [facility] Specialist Cardiothoracic Surgery 10/03/22 3 Guerita Elliott PA-C [address] [address] [facility] Specialist Cardiothoracic Surgery 10/10/22 3 Matthew Rushing MD [address] [place] [address] [facility] Specialist Cardiology - General 10/10/22 10/10/22 Matthew Rushing MD [address] [place] [address] [facility] Specialist Cardiology - General 10/17/22 10/17/22 Guerita Elliott PA-C [address] [address] [facility] Specialist Cardiothoracic Surgery 10/17/22 3 Guerita Elliott PA-C [address] [address] [facility] Specialist Cardiothoracic Surgery 10/24/22 10/24/22 Matthew Rushing MD [address] [place] [address] [facility] Specialist Cardiology - General 10/24/22 10/24/22 Matthew Rushing MD [address] [place] [address] [facility] Specialist Cardiology - General 10/31/22 10/31/22 Guerita Elliott PA-C [address] [address] [facility] Specialist Cardiothoracic Surgery 10/31/22 3 Guerita Elliott PA-C [address] [address] [facility] Specialist Cardiothoracic Surgery 11/07/22 3 Matthew Rusihng MD [address] [place] [address] 160[address] [facility] Specialist Cardiology - General 11/07/22 11/07/22 Matthew Rushing MD [address] [place] [address] 209[address] [facility] Specialist Cardiology - General 11/14/22 11/14/22 Guerita Elliott PA-C [address] [address] [facility] Specialist Cardiothoracic Surgery 11/14/22 3 Guerita Elliott PA-C [address] [address] [facility] Specialist Cardiothoracic Surgery 11/21/22 11/21/22 Matthew Rushing MD [address] [place] [address] 900[address] [facility] Specialist Cardiology - General 11/21/22 11/21/22 Matthew Rushing MD [address] [place] [address] [facility] Specialist Cardiology - General 11/28/22 11/28/22 Guerita Elliott PA-C [address] [address] [facility] Specialist Cardiothoracic Surgery 11/28/22 3 Guerita Elliott PA-C [address] [address] [facility] Specialist Cardiothoracic Surgery 12/05/22 3 Matthew Rushing MD [address] [place] [address] [facility] Specialist Cardiology - General 12/05/22 12/05/22 Guerita Elliott PA-C [address] [address] [facility] Specialist Cardiothoracic Surgery 12/12/22 Matthew Rushing MD [address] [place] [address] 614[address] [facility] Specialist Cardiology - General 12/12/22 12/12/22 Matthew Rushing MD [address] [place] [address] [facility] Specialist Cardiology - General 12/19/22 12/19/22 Guerita Elliott PA-C [address] [address] [facility] Specialist Cardiothoracic Surgery 12/19/22 12/19/22 Gureita Elliott PA-C [address] [address] [facility] Specialist Cardiothoracic Surgery 12/26/22 12/26/22 Matthew Rushing MD [address] [place] [address] [facility] Specialist Cardiology - General 12/26/22 12/26/22 Matthew Rushing MD [address] [place] [address] [facility] Specialist Cardiology - General 01/02/23 01/02/23 Guerita Elliott PA-C [address] [address] [facility] Specialist Cardiothoracic Surgery 01/02/23 3 Guerita Elliott PA-C [address] [address] [facility] Specialist Cardiothoracic Surgery 01/09/23 3 Matthew Rushing MD [address] [place] [address] [facility] Specialist Cardiology - General 01/09/23 01/09/23 Matthew Rushing MD [address] [place] [address] [facility] Specialist Cardiology - General 01/16/23 01/16/23 Guerita Elliott PA-C [address] [address] [facility] Specialist Cardiothoracic Surgery 01/16/23 3 Matthew Rushing MD [address] [place] [address] 240[address] [facility] Specialist Cardiology - General 01/23/23 01/23/23 Guerita Elliott PA-C [address] [address] [facility] Specialist Cardiothoracic Surgery 01/23/23 01/23/23 Matthew uRshing MD [address] [place] [address] [facility] Specialist Cardiology - General 01/30/23 01/30/23 Guerita Elliott PA-C [address] [address] [facility] Specialist Cardiothoracic Surgery 01/30/23 3 Guerita Elliott PA-C [address] [address] [facility] Specialist Cardiothoracic Surgery 02/06/23 3 Matthew Rushing MD [address] [place] [address] [facility] Specialist Cardiology - General 02/06/23 02/06/23 Matthew Rushing MD [address] [place] [address] 0[address]14 [facility] Specialist Cardiology - General 02/13/23 02/13/23 Guerita Elliott PA-C [address] [address] [facility] Specialist Cardiothoracic Surgery 02/13/23 3 Guerita Elliott PA-C [address] [address] [facility] Specialist Cardiothoracic Surgery 02/20/23 02/20/23 Matthew Rushing MD [address] [place] [address] [facility] Specialist Cardiology - General 02/20/23 02/20/23 Matthew Rushing MD [address] [place] [address] [facility] Specialist Cardiology - General 02/27/23 02/27/23 Guerita Elliott PA-C [address] [place] [address] [facility] Specialist Cardiothoracic Surgery 02/27/23 3 Matthew Rushing MD [address] [place] [address] [facility] Specialist Cardiology - General 03/06/23 03/06/23 Guerita Elliott PA-C [address] [place] [address] [facility] Specialist Cardiothoracic Surgery 03/06/23 3 Matthew Rushing MD [address] [place] [address] [facility] Specialist Cardiology - General 03/13/23 03/13/23 Guerita Elliott PA-C [address] [place] [address] [facility] Specialist Cardiothoracic Surgery 03/13/23 3 Guerita Elliott PA-C [address] [place] [address] [facility] Specialist Cardiothoracic Surgery 03/20/23 3 Matthew Rushing MD [address] [place] [address] [facility] Specialist Cardiology - General 03/20/23 03/20/23 Matthew Rushing MD [address] [place] [address] 03320 [facility] Specialist Cardiology - General 03/27/23 03/27/23 Guerita Elliott PA-C [address] [address] [facility] Specialist Cardiothoracic Surgery 03/27/23 3 Guerita Elliott PA-C [address] [address] [facility] Specialist Cardiothoracic Surgery 04/03/23 Matthew Rushing MD [address] [place] [address] [facility] Specialist Cardiology - General 04/03/23 04/03/23 Guerita Elliott PA-C [address] [address] [facility] Specialist Cardiothoracic Surgery 04/10/23 Matthew Rushing MD [address] [place] [address] [facility] Specialist Cardiology - General 04/10/23 04/10/23 Matthew Rushing MD [address] [place] [address] 8[address]25 [facility] Specialist Cardiology - General 04/17/23 04/17/23 Guerita Elliott PA-C [address] [address] [facility] Specialist Cardiothoracic Surgery 04/17/23 Matthew Rushing MD [address] [place] [address] [facility] Specialist Cardiology - General 04/24/23 04/24/23 Guerita Elliott PA-C [address] [address] [facility] Specialist Cardiothoracic Surgery 04/24/23 3 Matthew Rushing MD [address] [place] [address] 194[address] [facility] Specialist Cardiology - General 05/01/23 05/01/23 Guerita Elliott PA-C [address] [address] [facility] Cardiothoracic Surgery 05/01/23 Guerita Elliott PA-C [address] [address] [facility] Cardiothoracic Surgery 05/08/23 Matthew Rushing MD [address] [place] [address] [facility] Cardiology - General 05/08/23 05/08/23 Matthew Rushing MD [address] [place] [address] 80169 [facility] Cardiology - General 05/15/23 05/15/23 Guerita Elliott PA-C [address] [address] [facility] Cardiothoracic Surgery 05/15/23 Matthew Rushing MD [address] [place] [address] [facility] Cardiology - General 05/22/23 05/22/23 Guerita Elliott PA-C [address] [address] [facility] Cardiothoracic Surgery 05/22/23 3 Matthew Rushing MD [address] [place] [address] [facility] Cardiology - General 05/29/23 05/29/23 Guerita Elliott PA-C [address] [address] [facility] Cardiothoracic Surgery 05/29/23 Guerita Elliott PA-C [address] [address] [facility] Cardiothoracic Surgery 06/05/23 Matthew Rushing MD [address] [place] [address] [facility] Cardiology - General 06/05/23 06/05/23 Guerita Elliott PA-C [address] [address] [facility] Cardiothoracic Surgery 06/12/23 Matthew Rushing MD [address] [place] [address] [facility] Cardiology - General 06/12/23 06/12/23 Guerita Elliott PA-C [address] [address] [facility] Cardiothoracic Surgery 06/19/23 Matthew Rushing MD [address] [place] [address] 32721 [facility] Cardiology - General 06/19/23 06/19/23 Guerita Elliott PA-C [address] [place] [address] [facility] Cardiothoracic Surgery 06/26/23 06/26/23 Matthew Rushing MD [address] [place] [address] [facility] Cardiology - General 06/26/23 06/26/23 Guerita Elliott PA-C [address] [place] [address] [facility] Cardiothoracic Surgery 07/03/23 4 Matthew Rushing MD [address] [place] [address] [facility] Cardiology - General 07/03/23 07/03/23 Guerita Elliott PA-C [address] [address] [facility] Cardiothoracic Surgery 07/10/23 4 Matthew Rushing MD [address] [place] [address] 31422 [facility] Cardiology - General 07/10/23 07/10/23 Matthew Rushing MD [address] [place] [address] 64780 [facility] Cardiology - General 07/17/23 07/17/23 Guerita Elliott PA-C [address] [address] [facility] Cardiothoracic Surgery 07/17/23 4 Matthew Rushing MD [address] [place] [address] [facility] Cardiology - General 07/24/23 07/24/23 Guerita Elliott PA-C [address] [address] [facility] Cardiothoracic Surgery 07/24/23 07/24/23 Matthew Rushing MD [address] [place] [address] [facility] Cardiology - General 07/31/23 07/31/23 Guerita Elliott PA-C [address] [address] [facility] Cardiothoracic Surgery 07/31/23 4 Guerita Elliott PA-C [address] [address] [facility] Cardiothoracic Surgery 08/07/23 4 Matthew Rushing MD [address] [place] [address] 26840 [facility] Cardiology - General 08/07/23 08/07/23 Guerita Elliott PA-C [address] [place] [address] [facility] Cardiothoracic Surgery 08/14/23 4 Matthew Rushing MD [address] [place] [address]239 [facility] Cardiology - General 08/14/23 08/14/23 Matthew Rushing MD [address] [place] [address] 527[address] [facility] Cardiology - General 08/21/23 08/21/23 Guerita Elliott PA-C [address] [address] [facility] Cardiothoracic Surgery 08/21/23 08/21/23 Matthew Rushing MD [address] [place] [address] [facility] Cardiology - General 08/28/23 08/28/23 Guerita Elliott PA-C [address] [address] [facility] Cardiothoracic Surgery 08/28/23 4 Guerita Elliott PA-C [address] [address] [facility] Cardiothoracic Surgery 09/04/23 4 Matthew Rushing MD [address] [place] [address] 28516 [facility] Cardiology - General 09/04/23 09/04/23 Matthew Rushing MD [address] [place] [address] 31758 [facility] Cardiology - General 09/11/23 09/11/23 Guerita Elliott PA-C [address] [address] [facility] Cardiothoracic Surgery 09/11/23 4 Matthew Rushing MD [address] [place] [address] 18532 [facility] Cardiology - General 09/18/23 09/18/23 Guerita Elliott PA-C [address] [address] [facility] Cardiothoracic Surgery 09/18/23 4 Matthew Rusihng MD [address] [place] [address] 12192 [facility] Cardiology - General 09/25/23 09/25/23 Guerita Elliott PA-C [address] [address] [facility] Cardiothoracic Surgery 09/25/23 09/25/23 Matthew Rushing MD [address] [place] [address] 8[address]83 [facility] Cardiology - General 10/02/23 10/02/23 Guerita Elliott PA-C [address] [address] [facility] Cardiothoracic Surgery 10/02/23 4 Guerita Elliott PA-C [address] [address] [facility] Cardiothoracic Surgery 10/09/23 4 Matthew Rushing MD [address] [place] [address] 112[address] [facility] Cardiology - General 10/09/23 10/09/23 Matthew Rushing MD [address] [place] [address] 24862 [facility] Cardiology - General 10/16/23 10/16/23 Guerita Elliott PA-C [address] [address] [facility] Cardiothoracic Surgery 10/16/23 4 Matthew Rushing MD [address] [place] [address] 61746 [facility] Special[facility] Cardiology - General 10/23/23 10/23/23 Guerita Elliott PA-C [address] [address] [facility] Cardiothoracic Surgery 10/23/23 10/23/23 Matthew Rushing MD [address] [place] [address]252 [facility] Cardiology - General 10/30/23 10/30/23 Guerita Elliott PA-C [address] [address] [facility] Cardiothoracic Surgery 10/30/23 4 Guerita Elliott PA-C [address] [address] [facility] Cardiothoracic Surgery 11/06/23 4 Matthew Rushing MD [address] [place] [address] 60132 [facility] Special[facility] Cardiology - General 11/06/23 11/06/23 Matthew Rushing MD [address] [place] [address] 526[address] [facility] Special[facility] Cardiology - General 11/13/23 11/13/23 Guerita Elliott PA-C [address] [address] [facility] Cardiothoracic Surgery 11/13/23 4 Guerita Elliott PA-C [address] [address] [facility] Cardiothoracic Surgery 11/20/23 11/20/23 Matthew Rushing MD [address] [place] [address] 12169 [facility] Specialist Cardiology - General 11/20/23 11/20/23 Guerita Elliott PA-C [address] [address] [facility] Cardiothoracic Surgery 11/27/23 11/27/23 Matthew Rushing MD [address] [place] [address] [facility] Special[facility] Cardiology - General 11/27/23 11/27/23 Guerita Elliott PA-C [address] [address] [facility] Cardiothoracic Surgery 12/04/23 4 Matthew Rushing MD [address] [place] [address] 56692 [facility] Special[facility] Cardiology - General 12/04/23 12/04/23 Matthew Rushing MD [address] [place] [address] 20488 [facility] Special[facility] Cardiology - General 12/11/23 12/11/23 Guerita Elliott PA-C [address] [address] [facility] Cardiothoracic Surgery 12/11/23 4 Guerita Elliott PA-C [address] [address] [facility] Cardiothoracic Surgery 12/18/23 4 Matthew Rushing MD [address] [place] [address] 27479 [facility] Cardiology - General 12/18/23 12/18/23 Guerita Elliott PA-C [address] [place] [address] [facility] Cardiothoracic Surgery 12/25/23 12/25/23 Matthew Rushing MD [address] [place] [address] 43931 [facility] Special[facility] Cardiology - General 12/25/23 12/25/23 Guerita Elliott PA-C [address] [place] [address] [facility] Cardiothoracic Surgery 01/01/24 4 Matthew Rushing MD [address] [place] [address]2005 [facility] Cardiology - General 01/01/24 01/01/24 Guerita Elliott PA-C [address] [address] [facility] Cardiothoracic Surgery 01/08/24 4 Matthew Rushing MD [address] [place] [address] 45[address] [facility] Special[facility] Cardiology - General 01/08/24 01/08/24 Guerita Elliott PA-C [address] [address] [facility] Cardiothoracic Surgery 01/15/24 4 Matthew Rushing MD [address] [place] [address] [facility] Special[facility] Cardiology - General 01/15/24 01/15/24 Matthew Rushing MD [address] [place] [address] 18427 [facility] Special[facility] Cardiology - General 01/22/24 01/22/24 Guerita Elliott PA-C [address] [address] [facility] Cardiothoracic Surgery 01/22/24 01/22/24 Guerita Elliott PA-C [address] [address] [facility] Cardiothoracic Surgery 01/29/24 4 Matthew Rushing MD [address] [place] [address] 46484 [facility] Special[facility] Cardiology - General 01/29/24 01/29/24 Matthew Rushing MD [address] [place] [address] 9[address]38 [facility] Special[facility] Cardiology - General 02/05/24 02/05/24 Guerita Elliott PA-C [address] [address] [facility] Cardiothoracic Surgery 02/05/24 4 Matthew Rushing MD [address] [place] [address]60 [facility] Cardiology - General 02/12/24 02/12/24 Guerita Elliott PA-C [address] [address] [facility] Cardiothoracic Surgery 02/12/24 4 Guerita Elliott PA-C [address] [address] [facility] Cardiothoracic Surgery 02/19/24 02/19/24 Matthew Rushing MD [address] [place] [address] 32750 [facility] Special[facility] Cardiology - General 02/19/24 02/19/24 Matthew Rushing MD [address] [place] [address] 93011 [facility] Cardiology - General 02/26/24 02/26/24 Guerita Elliott PA-C [address] [address] [facility] Cardiothoracic Surgery 02/26/24 02/26/24 Guerita Elliott PA-C [address] [address] [facility] Cardiothoracic Surgery 03/04/24 4 Matthew Rushing MD [address] [place] [address] 80257 [facility] Special[facility] Cardiology - General 03/04/24 03/04/24 Guerita Elliott PA-C [address] [address] [facility] Cardiothoracic Surgery 03/11/24 4 Matthew Rushing MD [address] [place] [address] 67504 [facility] Special[facility] Cardiology - General 03/11/24 03/11/24 Matthew Rushing MD [address] [place] [address] 50499 [facility] Special[facility] Cardiology - General 03/18/24 03/18/24 Guerita Elliott PA-C [address] [address] [facility] Specialist Cardiothoracic Surgery 03/18/24 4 Matthew Rushing MD [address] [place] [address] [place] [address] [facility] Specialist Cardiology - General 03/25/24 03/25/24 Guerita Elliott PA-C [address] [place] [address] [place] [address] [facility]ist Cardiothoracic Surgery 03/25/24 4 documented as of this encounter
--- OUTSIDE RECORDS SUMMARY | 2024-06-24 04:36 | XMS_ITS | Encounter Summary ---
Author Organization [facility] alth Address [address] [address] Care Team Providers Care Barrelhead Inspector Name Role Phone Kilo Wang MD Unavailable [phone] Juan Haddad MD Unavailable [phone] Mary Sheppard PA-C Primary Care Provider Reason for Visit * Reason Comments Shortness Of Breath x 1day-pt not aware of being around any one with covid Cough Fatigue Encounter Details Date Type Department Care Team (Late st Contact Info) Description 06/07/2020 11:00 AM [facility] Line [address], [address] [place] [address] Zen Dumont MD [address] [place] [address] Shortness of breath (Primary Dx); Cough; Other fatigue Discharge Disposition: Home/Self Care Social History Tobacco [...] Pressure - - Pulse - - Temperature 36.8 ??C (98.3 ??F) 06/07/2020 10:[address] Respiratory Rate - - Oxygen Saturation 97% 06/07/2020 10:15 AM EST Inhaled Oxygen Concentration - - Weight 107 kg (235 lb) 06/07/2020 10:15 AM EST p t reported Height - - Body Mass Index 31.87 03/25/2020 1:44 PM EDT documented in this encounter Progress Notes * Zen Dumont - 06/07/2020 11:26 AM EST This visit occurred via an interactive Audio/Video platform. Subjective . . Robert Alexis Jr. is a 55 y.o. male who presents with chief complaint of Shortness Of Breath (x 1day-pt not aware of being around any one with covid), Cough, and Fatigue who is here today for an office visit. Social Determinants of Health: PHQ-9; Over the last 2 weeks how often have you been bothered by any of the following problems? Little interest or pleasure in doing things?: Not at all Feeling down, depressed, or hopeless?: Not at all Trouble falling or staying asleep, or sleeping too much?: Most days Feeling tired or having little energy?: Several days Poor appetite or overeating?: Several days Feeling bad about yourself; that you are a failure or have let people down?: Not at all Trouble concentrating on things, such as reading the newspaper or watching television?: Not at all Moving and speaking unusually slowly, or being unusually fidgety or restless?: Not at all Thoughts that you would be better off , or of hurting yourself?: Not at all How difficult have these problems made it to do your normal activities or get along with people?: Not difficult at all PHQ-9 Total Score: 5 Social History Tobacco Use Smoking Status Never Smoker Smokeless Tobacco Current User ??? Types: Chew Tobacco Comment chewing tobacco 2 cans/week HPI shortness of breath is new; dry cough; no sore throat no fever or chills Temp 99.1 feels tired. symptoms all started last night; ROS; Active Problems: He has Essential hypertension; Asthma; Tubular adenoma of colon. 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 Current Medications: ??? amLODIPine (NORVASC) 5 MG tablet Take 1 tablet by mouth daily. ??? atorvastatin (LIPITOR) 20 MG tablet Take 1 tablet by mouth daily. (Patient not taking: Reportedon 06/07/2020.) Allergies: He is allergic to quinolones and [...] reports that he does not drink alcohol or use drugs. Family History: His family history includes Cancer (age of onset: 67) in his mother. Future appointments already scheduled: Future Appointments Date Time Provider Department Center 06/16/2020 7:20 AM [facility] 07/04/2020 11:00 AM Provider, Cardiac Surg [facility] Objective Vitals: 06/07/20 1015 Temp: 98.3 ??F (36.8 ??C) Weight: 107 kg (235 lb) SpO2: 97% TempSrc: Temporal Body mass index is 31.87 kg/m??. Physical Exam Eyes: Right eye exhibits no discharge. Left eye exhibits no discharge. Pulmonary/Chest: Effort normal. No respiratory distress. Musculoskeletal: Cervical back: Normal range of motion. Neurologic: He is alert and oriented to person, place, and time. Psychiatric: He has a normal mood and affect. His behavior is normal. Constitutional: He appears well-developed and well-nourished. No distress. Assessment and Plan 1. Shortness of breath 2. Cough 3. Other fatigue Covid was done today already; we discussed quarantine externally and in the home Chart Review: Medication List reviewed / reconciled 06/07/2020 10:17 AM by RICCARDO CARTER. Allergy List reviewed 06/07/2020 by RICCARDO CARTER. Problem List reviewed 04/16/2020 by MARY SHEPPARD. Immunization List reviewed 03/23/2018 6:18 AM by SARAHY HARVEY Chart Sections reviewed by provider: documented in this encounter Plan of Treatment Not on file documented as of this encounter Goals Goal Patient Goal Type Associated Problems Recent Progress Patient-Stated? Author Blood Pressure < 140/90 Blood Pressure 160/96( 024 8:13 AM EDT) Kilo Mora MD documented as of this encounter Visit Diagnoses Diagnosis Shortness of breath- Primary Cough Other fatigue documented in this encounter Additional Health Concerns Infection Onset Date Last Indicated Resolved Time Symptomatic COVID PUI 06/07/2020 06/07/20202019 5:59 AM EST Asymptomatic COVID PUI 06/07/2020 06/07/202006/10 5:59 AM EST documented as of this encounter Care Teams Barrelhead Inspector Relationship Specialty Start Date End Date Mary Sheppard PA-C [address] [place] [address] [address] PCP - General Family Practice 04/12/18 07/10/23 Kilo Wang MD Consulting Physician Neurology 08/30/16 12/01/21 Juan Haddad MD [address] [address] Otolaryngology 09/23/17 documented as of this encounter
--- OUTSIDE RECORDS SUMMARY | 2024-06-24 04:36 | XMS_ITS | Encounter Summary ---
Author Organization [facility] alth Address [address] [facility] [place] [address] Care Team Providers Care Apple Checker Name Role Phone Kilo Wang MD Unavailable [phone] Juan Haddad MD Unavailable Dasha Sheppard PA-C Primary Care Provider Reason for Visit * Reason Comments Back Pain right flank pain for couple of days, mucus in stool, thinks he has infection in bowels now on left side Encounter Details Date Type Department Care Team (Late st Contact Info) Description 03/03/2021 1:20 PM EDT Office Visit [facility] Line [address] [facility], [address] [place] [phone] Dasha Sheppard, [place] [address] [facility] [place] [id number] Diverticulitis (Primary Dx) Discharge Disposition: Home/Self Care [...] Sign Reading Time Taken Comments Blood Pressure 120/82 03/03/2021 1:14 PM EDT Pulse 84 03/03/2021 1:14 PM EDT Temperature 36.6 ??C (97.9 ??F) 03/03/2021 1:14 PM ED T Respiratory Rate - - Oxygen Saturation - - Inhaled Oxygen Concentration - - Weight 102 kg (224 lb) 03/03/2021 1:14 PM EDT Height - - Body Mass Index 30.38 12/25/2020 1:49 PM EDT documented in this encounter Functional Status documented as of this encounter Progress Notes * Dasha Sheppard PA-C - 03/03/2021 1:13 PM EDT Images from the original note were not included. Assessment and Plan 1. Diverticulitis - ciprofloxacin (CIPRO) 500 MG tablet; Take 1 tablet by mouth 2 times daily for 10 days. Dispense: 20 tablet; Refill: 0 - metroNIDAZOLE (FLAGYL) 500 MG tablet; Take 1 tablet by mouth 3 times daily for 10 days. Dispense:30 tablet; Refill: 0 Discussed etiology of symptoms - similar to his previous bout of diverticulitis Discussed treatment and CT scan - prefers to start treatment Discussed antibiotics and Cipro with his thoracic aneurysm - states that he had Cipro in August as well Discussed medication instructions and precautions, including risks, benefits, and side effects of new medications Discussed that if his symptoms do not improve in the next 48 hours he needs to go to the ED for further evaluation - provided strict precautions for ED evaluation Robert verbalized understanding of above. Subjective Person Accompanying : No one Chief Complaint Patient presents with ??? Back Pain right flank pain for couple of days, mucus in stool, thinks he has infection in bowels now on left side HPI Symptoms as above -states that he has been experiencing LEFT flank pain and left lower quadrant pain. +mucus in stool and bloating, soft loose stools - all symptoms are similar to his last bout of diverticulitis in August 2020 Decreased appetite but normal fluid intake Has been using Metamucil and probiotic since August and bowel movements have been regular States that he had some watermelon a couple of days ago Reviewed GI office visit from December 2020 States that he is leaving for [place] on for a hunting trip Review of Systems as above Social Determinants of Health: Social History Tobacco Use Smoking Status Never Smoker Smokeless Tobacco Current User ??? Types: Chew Tobacco Comment chewing tobacco 2 cans/week Future appointments already scheduled: No future appointments. Objective Vitals: 03/03/21 1314 BP: 120/82 BP Source: Right Arm Position: Sitting Cuff Size: Regular Pulse: 84 Temp: 97.9 ??F (36.6 ??C) TempSrc: Oral Weight: 102 kg (224 lb) Body mass index is 30.38 kg/m??. Additional Vitals (.ambadditionalvitals) Is the patient wearing a mask?: Yes PPE WORN BY CLINICAL STAFF: Mask, Goggles/face shield, Gloves PPE WORN BY PROVIDER: mask, goggles/face shield Total time spent in face to face contact was > or = 15 minutes. Physical Exam Vitals and nursing note reviewed. Constitutional: Appearance: Normal appearance. Cardiovascular: Rate and Rhythm: Regular rhythm. Heart sounds: Normal heart sounds. No murmur. Pulmonary: Effort: Pulmonary effort is normal. Breath sounds: Normal breath sounds. Abdominal: Tenderness: There is abdominal tenderness in the left lower quadrant. There is left CVA tenderness and guarding (mild). There is no rebound. Negative signs include Mayorga's sign, Rovsing's sign, McBurney's sign, psoas sign and obturator sign. Skin: General: Skin is warm and dry. [...] as of this encounter Visit Diagnoses Diagnosis Diverticulitis- Primary Diverticulitis of colon (without mention of hemorrhage) documented in this encounter Care Teams Apple Checker Relationship Specialty Start Date End Date Dasha Sheppard PA-C [address] [place] [address] PCP - General Family Practice 04/12/18 07/10/23 Kilo Wang MD Consulting Physician Neurology 08/30/16 12/01/21 Juan Haddad MD [address] [place] [address] Otolaryngology 09/23/17 documented as of this encounter
--- OUTSIDE RECORDS SUMMARY | 2024-06-24 04:37 | XMS_ITS | Encounter Summary ---
Author Organization [facility] alth Address [address] [facility] [place] [address] Care Team Providers Care Teletypesetter Monitor Name Role Phone Kilo Wang MD Unavailable [phone] Juan Haddad MD Unavailable Dasha Sheppard PA-C Primary Care Provider Reason for Visit * Reason Comments Refill Request Encounter Details Date Type Department Care Team (Late st Contact Info) Description 02/12/2020 Refill Family Medicine [place] [address] [facility], [address] [place] [phone] Dasha Sheppard, [place] [address] [place] [address] [place] [address] Refill Request Social History Tobacco Use Types Packs/Day Years Used Date Smoking Tobacco: Never Smokeless Tobacco: Current Chew Comments:chewing tobacco 2 c ans/week Alcohol Use Standard Drinks/Week Comments No 0 (1 standard drink = 0.6 oz pur e alcohol) Sex and Gender Information Value Date Recorded [...] as of this encounter Visit Diagnoses Diagnosis Anxiety Anxiety state, unspecified documented in this encounter Care Teams Teletypesetter Monitor Relationship Specialty Start Date End Date Dasha Sheppard PA-C [address] [address] [address] PCP - General Family Practice 04/12/18 07/10/23 Kilo Wang MD Consulting Physician Neurology 08/30/16 12/01/21 Juan Haddad MD [address] [address] Otolaryngology 09/23/17 documented as of this encounter
--- OUTSIDE RECORDS SUMMARY | 2024-06-24 04:37 | XMS_ITS | Encounter Summary ---
Author Organization [facility] alth Address [address] [facility] [address] [facility] [place] [address] Care Team Providers Care Infrastructure Security Architect Name Role Phone Kilo Wang MD Unavailable [phone] Juan Haddad MD Unavailable [phone] Mary Sheppard PA-C Primary Care Provider Reason for Visit * Reason Comments Back Pain Onset 2 weeks. Went to chiropractor twice with no relief. The pain is better when I'm up moving around, but once I stop it's painful. Encounter Details Date Type Department Care Team (Late st Contact Info) Description 03/25/2020 4:20 PM EDT Office Visit [facility] Line [address] [facility], [address] [place] [id number] Mary Sheppard, PA-C [address] [facility] [place] [address] Acute right-sided low back pain with right-sided sciatica (Primary Dx); SI (sacroiliac) joint inflammation (CMS/HCC); Spasm of back muscles Discharge Disposition: Home/Self Care Social History Tobacco [...] Sign Reading Time Taken Comments Blood Pressure 124/70 03/25/2020 4:30 PM EDT Pulse 88 03/25/2020 4:30 PM EDT Temperature 36.1 ??C (96.9 ??F) 03/25/2020 4:30 PM ED T Respiratory Rate - - Oxygen Saturation - - Inhaled Oxygen Concentration - - Weight 109 kg (240 lb) 03/25/2020 4:30 PM EDT Height - - Body Mass Index 32.55 03/25/2020 1:44 PM EDT documented in this encounter Progress Notes * Mary Sheppard PA-C - 03/25/2020 4:28 PM EDT Subjective Patient roomed and information gathered by May Michel LPN. Robert Alexis Jr. is a 54 y.o. male who presents with chief complaint of Back Pain (Onset 2 weeks.Went to chiropractor twice with no relief. The pain is better when I'm up moving around, but once I stop it's painful. ) who is here today for an office visit. Health Maintenance reviewed 03/25/2020 4:33 PM by May Michel LPN. Yes Since the last visit here, was the patient seen by a specialist? Yes ([employer] Stock Supervisor 03/25/2020) Barriers to care: Patient does not have a Living Will or Advance Directives Domestic Violence Screen: Negative Progress Note He is accompanied today by No one Medication compliance: Yes PEG Pain Score: Average Pain Score: 7 Impact on Enjoyment of Life: 7 Impact on General Activities: 1 PEG Average Score: 5 Symptoms as above x 3 weeks. States that he has bee having some stiffness/toghtness in his low backx 6 months, however, the past three weeks his symptoms have gotten worse. States that he had pain on the RIGHT lower back that radiates to his thigh. States that he has burning in his thigh. Statesthat has limited movement and it is difficult to get into his truck at work. States that he was seeing a chiropractor with some relief but the last session 3-4 days ago did nothelp and increased his symptoms. States that he has been trying to stretch and taking Adivl. States that once he is moving around his symptoms improve but when he sits for long periods is when his symptoms return. States that he hadan episode where he had a spasm in his low back that dropped him the floor and he could not move. 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 Started statin and advised to continue with Norvasc for hypertension States that he stopped taking Lexapro because he feels that he does not have anxiety Review of Systems Musculoskeletal: Positive for back pain. as above Future appointments already scheduled: Future Appointments Date Time Provider Department Center 04/02/2020 10:30 AM Trey Jennings MD [facility] Objective Vitals: 03/25/20 1630 BP: 124/70 BP Source: Right Arm Position: Sitting Cuff Size: Large Pulse: 88 Temp: 96.9 ??F (36.1 ??C) Weight: 109 kg (240 lb) TempSrc: Temporal Additional Vitals (.ambadditionalvitals) PPE WORN BY CLINICAL STAFF: Mask, Goggles/face shield, Gloves PPE WORN BY PROVIDER: mask, gloves and goggles TIME PROVIDER SPENT WITH PATIENT: 15+ MINS Body mass index is 32.55 kg/m??. Physical Exam Nursing note and vitals reviewed. Musculoskeletal: Comments: Back: + exquisite TTP of RIGHT SI joint and surrounding paraspinal muscles. Decreased ROMin all directions due to pain. NV intact and sensation grossly intact distally Neurologic: He is alert and oriented to person, place, and time. Skin: Skin is warm and dry. Constitutional: He appears well-developed and well-nourished. Assessment and Plan 1. Acute right-sided low back pain with right-sided sciatica - predniSONE (DELTASONE) 20 MG tablet; Take 3 tablets daily x 3 days, 2 tablets daily x 3 days, 1 tablet daily x 4 days. Dispense: 19 tablet; Refill: 0 - cyclobenzaprine (FLEXERIL) 10 MG tablet; Take 1 tablet by mouth at bedtime. Dispense: 30 tablet; Refill: 0 2. SI (sacroiliac) joint inflammation (CMS/HCC) - predniSONE (DELTASONE) 20 MG tablet; Take 3 tablets daily x 3 days, 2 tablets daily x 3 days, 1 tablet daily x 4 days. Dispense: 19 tablet; Refill: 0 - cyclobenzaprine (FLEXERIL) 10 MG tablet; Take 1 tablet by mouth at bedtime. Dispense: 30 tablet; Refill: 0 3. Spasm of back muscles - predniSONE (DELTASONE) 20 MG tablet; Take 3 tablets daily x 3 days, 2 tablets daily x 3 days, 1 tablet daily x 4 days. Dispense: 19 tablet; Refill: 0 - cyclobenzaprine (FLEXERIL) 10 MG tablet; Take 1 tablet by mouth at bedtime. Dispense: 30 tablet; Refill: 0 Discussed medication instructions and precautions, including risks, benefits, and side effects of new medications Discontinue NSAIDS while taking steroids, can resume NSAIDS once steroids are completed. Recommend taking steroids with food. Can take Tylenol as needed. Advised to take Flexeril at bedtime Discussed PT if symptoms do not improve Advised to call office in 2 weeks if no better, sooner if worse and will place order for PT Robert verbalized understanding of above. Chart Review: Medication List reviewed / reconciled 03/25/2020 4:29 PM by MAY MICHEL. Allergy List reviewed 03/25/2020 by MAY MICHEL. Problem List reviewed 12/20/2019 by MARY SHEPPARD. Immunization List reviewed 03/23/2018 [...] of this encounter Visit Diagnoses Diagnosis Acute right-sided low back pain with right-sided sciatica- Primary SI (sacroiliac) joint inflammation (CMS/HCC) Sacroiliitis, not elsewhere classified Spasm of back muscles Other symptoms referable to back documented in this encounter Care Teams Infrastructure Security Architect Relationship Specialty Start Date End Date Mary Sheppard PA-C [address] [facility] [place] [address] PCP - General Family Practice 04/12/18 07/10/23 Kilo Wang MD Consulting Physician Neurology 08/30/16 12/01/21 Juan Haddad MD [address] [place] [address] Otolaryngology 09/23/17 documented as of this encounter
--- OUTSIDE RECORDS SUMMARY | 2024-06-24 04:37 | XMS_ITS | Encounter Summary ---
Author Organization [facility] alth Address [address] [place] [place] [address] Care Team Providers Care Restaurant Hostess Name Role Phone Kilo Wang MD Unavailable [phone] Juan Haddad MD Unavailable [phone] Dasha Sheppard PA-C Primary Care Provider Reason for Visit * Reason Comments Derm Problem possible tick bite o n abdomin Encounter Details Date Type Department Care Team (Late st Contact Info) Description 04/11/2019 5:10 PM EDT Office Visit [facility] [place] [address] [place] [address] Casey Johnson PA-C [address] [place] [address] Tick bite of abdomen, initial encounter (Primary Dx) Discharge Disposition: Home/Self Care Social [...] Sign Reading Time Taken Comments Blood Pressure 124/78 04/11/2019 5:15 PM EDT Pulse 73 04/11/2019 5:15 PM EDT Temperature 36.7 ??C (98 ??F) 04/11/2019 5:15 PM EDT Respiratory Rate 14 04/11/2019 5:15 PM EDT Oxygen Saturation 97% 04/11/2019 5:15 PM EDT Inhaled Oxygen Concentration - - Weight 102 kg (224 lb 13.9 oz) 04/11/2019 5:15 P M EDT Height 182.9 cm (6') 04/11/2019 5:15 PM EDT Body Mass Index 30.5 04/11/2019 5:15 PM EDT documented in this encounter Patient Instructions * Patient Instructions* Casey Johnson, JIA - 04/11/2019 5:22 PM EDT Images from the original note were not included. Tick Bite: Care Instructions Your Care Instructions Ticks are small spiderlike animals. They bite to fasten themselves onto your skin and feed on your blood. Ticks can carry diseases. But most ticks do not carry diseases, and most tick bites do not cause serious health problems. Some people may have an allergic reaction to a tick bite. This reaction may be mild, with symptoms like itching and swelling. In rare cases, a severe allergic reaction may occur. Most of the time, all you need to do for a tick bite is relieve any symptoms you may have. Follow-up care is a zelaya part of your treatment and safety. Be sure to make and go to all appointments, and call your doctor if you are having problems. It's also a good idea to know your test resultsand keep a list of the medicines you take. How can you care for yourself at home? ?? Put ice or a cold pack on the bite for 15 to 20 minutes once an hour. Put a thin cloth between the ice and your skin. ?? Try an [id number] medicine to relieve itching, redness, swelling, and pain. Be safe with medicines. Read and follow all instructions on the label. ? Take an antihistamine medicine, such as a nondrowsy one like loratadine (Claritin) or one that might make you sleepy like diphenhydramine (Benadryl). These medicines may help relieve itching, redness, and swelling. ? Use a spray of local anesthetic that contains benzocaine, such as Solarcaine. It may help relievepain. If your skin reacts to the spray, stop using it. ? Put calamine lotion on the skin. It may help relieve itching. To avoid tick bites ?? Avoid ticks: ? Learn where ticks are found in your community, and stay away from those areas if possible. ? Cover as much of your body as possible when you work or play in grassy or wooded areas. ? Use insect repellents, such as products containing DEET. You can spray them on your skin. ? Take steps to control ticks on your property if you live in an area where Lyme disease occurs. Clear leaves, brush, tall grasses, woodpiles, and stone fences from around your house and the edges ofyour yard or garden. This may help get rid of ticks. ?? When you come in from outdoors, check your body for ticks, including your groin, head, and underarms. The ticks may be about the size of a sesame seed. If no one else can help you check for ticks on your scalp, comb your hair with a fine-tooth comb. ?? If you find a tick, remove it quickly. Use tweezers to grasp the tick as close to its mouth (thepart in your skin) as possible. Slowly pull the tick straight out--do not twist or yank--until its mouth releases from your skin. If part of the tick stays in the skin, leave it alone. It will likelycome out on its own in a few days. ?? Ticks can come into your house on clothing, outdoor gear, and pets. These ticks can fall off andattach to you. ? Check your clothing and outdoor gear. Remove any ticks you find. Then put your clothing in a clothes dryer on high heat for 1 hour to kill any ticks that might remain. ? Check your pets for ticks after they have been outdoors. When should you call for help? Call 911 anytime you think you may need emergency care. For example, call if: ? You have symptoms of a severe allergic reaction. These may include: ? Sudden raised, red areas (hives) all over your body. ? Swelling of the throat, mouth, lips, or tongue. ? Trouble breathing. ? Passing out (losing consciousness). Or you may feel very lightheaded or suddenly feel weak, confused, or restless. ??Call your doctor now or seek immediate medical care if: ? You have signs of infection, such as: ? Increased pain, swelling, warmth, or redness around the bite. ? Red streaks leading from the bite. ? Pus draining from the bite. ? A fever. ??Watch closely for changes in your health, and be sure to contact your doctor if: ? You develop a new rash. ? You have joint pain. ? You are very tired. ? You have flu-like symptoms. ? You have symptoms for more than 1 week. Where can you learn more? Go to www.Guide[employer].net/lgh. Enter L087 in the search box to learn more about Tick Bite: Care Instructions. Current as of: December 13, 2018 Content Version: 12.2 ?? [id number] [employer]. Care instructions adapted under license by your healthcare professional. If you have questions about a medical condition or this instruction, always ask your healthcare professional. [employer] disclaims any warranty or liability for your use of this information. documented in this encounter Progress Notes * Casey Johnson PA-C - 04/11/2019 5:10 PM EDT Patient ID: Robert Alexis Jr. is a 54 y.o. male who presents to Urgent Care today. Primary care provider is Dasha Sheppard PA-C. Patient is accompanied by no one Work or school note needed:NO Location of pain: none Current pain level:#0 Onset of symptoms: Today Reports the following: Pt presents with c/o tick bite on his left side/rib area that he discovered last evening. Pt states his attempted to remove the tick and a piece of the tick is still imbedded. Pt denies pain or fevers. Reports a Hx of Lyme disease. Robert Alexis Jr. roomed by: Dione Mtz CMA Chart Sections reviewed by provider: Tobacco Allergies Meds Problems Med Hx Surg Hx Fam Hx Subjective: Patient presents with: Derm Problem: possible tick bite on abdomin HPI Robert Alexis Jr. is a 54 y.o. male who presents with chief complaint of Derm Problem (possible tick bite on abdomin). Reviewed and agree with above, in addition: Tick bite [place] tick, per patient Was hunting last evening Seeking antibiotics History of Lyme Denies chest pain, joint pain, photophobia, fever/chills, etc. Chart Review: has Essential hypertension; Asthma; Tubular adenoma of colon. Repeat colonoscopy in APR 2019; Anxiety; Occipital neuralgia of right side; Bilateral carpal tunnel syndrome; Cubital tunnel syndrome on left; Congenital absence of left kidney; Lyme disease; Right carpal tunnel syndrome; Left carpal tunnel syndrome; Shortness of breath; and Nonspecific abnormal electrocardiogram (ECG) (EKG) on their problem list. Current Outpatient Medications Medication Sig Dispense Refill ??? amLODIPine (NORVASC) 5 MG tablet Take 1 tablet by mouth daily. 90 tablet 3 ??? doxycycline hyclate (VIBRAMYCIN) 100 MG capsule Take 1 capsule by mouth 2 times daily (with meals) for 14 days. 28 capsule 0 ??? sertraline (ZOLOFT) 100 MG tablet Take 1 tablet by mouth daily. 30 tablet 3 No current facility-administered medications for this visit. He has No Known Allergies. Past medical, social, and family history noncontributory except as noted. Review of Systems Constitutional: Negative for chills, fever and malaise/fatigue. Eyes: Negative for photophobia. Cardiovascular: Negative for palpitations. Musculoskeletal: Negative for myalgias and neck pain. Skin: Positive for rash. Tick bite Neurological: Negative for headaches. Objective: Visit Vitals BP 124/78 (BP Source: RA, Position: Sitting, Cuff Size: Reg) Pulse 73 Temp 98 ??F (36.7 ??C) (Tympanic) Resp 14 Ht 1.829 m (6') Wt 102 kg (224 lb 13.9 oz) SpO2 97% BMI 30.50 kg/m?? Physical Exam Nursing note and vitals reviewed. HENT: Head: Normocephalic and atraumatic. Right Ear: External ear normal. Left Ear: External ear normal. Nose: Nose normal. Mouth/Throat: Oropharynx is clear and moist. Eyes: Conjunctivae and EOM are normal. Cardiovascular: Normal rate and regular rhythm. Pulmonary/Chest: Effort normal and breath sounds normal. Neurologic: He is alert and oriented to person, place, and time. No cranial nerve deficit. He exhibits normal muscle tone. Skin: Skin is warm and dry. There is erythema. 0.5 cm diameter erythematous spot lateral LEFT abdomen Constitutional: He appears well-developed and well-nourished. Procedures: Procedures No results found. Assessment / Plan: 1. Tick bite of abdomen, initial encounter Orders Placed This Encounter Medications ??? doxycycline hyclate (VIBRAMYCIN) 100 MG capsule Sig: Take 1 capsule by mouth 2 times daily (with meals) for 14 days. Dispense: 28 capsule Refill: 0 May substitute salt Follow up with primary care provider All questions were answered. The patient or guardian was given an after-visit summary with additional care instructions. documented in this encounter Plan of Treatment Not on file documented as of this encounter Goals Goal Patient Goal Type Associated Problems Recent Progress Patient-Stated? Author Blood Pressure < 140/90 Blood Pressure 160/96( 024 8:13 AM EDT) No Kilo Wang MD documented as of this encounter Visit Diagnoses Diagnosis Tick bite of abdomen, initial encounter- Primary documented in this encounter Care Teams Restaurant Hostess Relationship Specialty Start Date End Date Dasha Sheppard PA-C [address] [place] [address] PCP - General Family Practice 04/12/18 07/10/23 Kilo Wang MD Consulting Physician Neurology 08/30/16 12/01/21 Juan Haddad MD [address] [place] [address] Otolaryngology 09/23/17 documented as of this encounter
--- OUTSIDE RECORDS SUMMARY | 2024-06-24 04:37 | XMS_ITS | Encounter Summary ---
Author Organization [facility] [address] [facility] [address] Care Team Providers Care Physician Office Clin Asst Name Role Phone Kilo Wang MD Unavailable [phone] Juan Haddad MD Unavailable [phone] Dasha Sheppard PA-C Primary Care Provider Trey Jennings MD Unavailable +[phone] Guerita Elliott-C Unavailable +[phone] Matthew Rushing MD Unavailable +[phone] Matthew Rushing MD Unavailable +[phone] Matthew Rushing MD Unavailable +[phone] Matthew Rushing MD Unavailable +[phone] Matthew Rushing MD Unavailable +[phone] Matthew Rushing MD Unavailable +[phone] Matthew Rushing MD Unavailable +[phone] Matthew Rushing MD Unavailable +[phone] Matthew Rushing MD Unavailable +[phone] Matthew Rushing MD Unavailable +[phone] Matthew Rushing MD Unavailable +[phone] Matthew Rushing MD Unavailable +[phone] Matthew Rushing MD Unavailable +[phone] Matthew Rushing MD Unavailable +[phone] Trey Jennings MD Unavailable +4 -5 Guerita Elliott PA-C Unavailable +4 -5 Matthew Rushing MD Unavailable +[phone] Guerita Elliott J PA-C Unavailable +4 -5 Matthew Rushing MD Unavailable +[phone] Matthew Rushing MD Unavailable +[phone] Guerita Elliott PA-C Unavailable +4 -5 Guerita Elliott PA-C Unavailable +4 -[phone] Matthew Rushing MD Unavailable +[phone] Guerita Elliott PA-C Unavailable +4 -5 Matthew Rushing MD Unavailable +[phone] Matthew Rushing MD Unavailable +[phone] Guerita Elliott PA-C Unavailable +4 -5 Matthew Rushing MD Unavailable +[phone] Guerita Elliott PA-C Unavailable +4 -4995 Matthew Rushing MD Unavailable +[phone] Guerita Elliott PA-C Unavailable +4 -4995 Guerita Elliott PA-C Unavailable +[phone] Matthew Rushing MD Unavailable +[phone] Guerita Elliott PA-C Unavailable +4 -4995 Matthew Rushing MD Unavailable +[phone] Guerita Elliott PA-C Unavailable +[phone] Matthew Rushing MD Unavailable +[phone] Earl, Guerita J PA-C Unavailable +4 -5 Matthew Rushing MD Unavailable +[phone] Matthew Rushing MD Unavailable +[phone] Guerita Elliott PA-C Unavailable +4 -4995 Matthew Rushing MD Unavailable +[phone] Guerita Elliott J PA-C Unavailable +4 -4995 Guerita Elliott J PA-C Unavailable +4 -4995 Matthew Rushing MD Unavailable Matthew Rushing MD Unavailable +[phone] Guerita Elliott J PA-C Unavailable +4 -4995 Guerita Elliott Kim PA-C Unavailable +[phone] Matthew Rushing MD Unavailable +[phone] Matthew Rushing MD Unavailable +[phone] Guerita Elliott Kim PA-C Unavailable +[phone] Guerita Elliott Kim PA-C Unavailable +4 -4995 Matthew Rushing MD Unavailable +[phone] Matthew Rushing MD Unavailable Guerita Elliott Kim PA-C Unavailable +4 -4995 HarlanLilli pinoher Alvarez PA-C Unavailable +[phone] Matthew Rushing MD Unavailable +[phone] Matthew Rushing MD Unavailable +[phone] Guerita Elliott J PA-C Unavailable +4 -4995 EarlLilliGuerita J PA-C Unavailable +[phone] Matthew Rushing MD Unavailable +[phone] Guerita Elliott Kim PA-C Unavailable +544 -[phone] Matthew Rushing MD Unavailable +[phone] Matthew Rushing MD Unavailable +[phone] Earl Guerita J PA-C Unavailable +4 -5 Lilli Elliotther J PA-C Unavailable +4 -4995 Matthew Rushing MD Unavailable Matthew Rushing MD Unavailable +[phone] Earl Guerita J PA-C Unavailable +4 -4995 Earl Guerita J PA-C Unavailable +4 -4995 Matthew Rushing MD Unavailable +[phone] Matthew Rushing MD Unavailable +[phone] Guerita Elliott PA-C Unavailable +4 -5 Matthew Rushing MD Unavailable +[phone] EarlGuerita J PA-C Unavailable +4 -4995 Matthew Rushing MD Unavailable +[phone] HarlanGuerita pino J PA-C Unavailable +4 -4995 Guerita Elliott J PA-C Unavailable +4 -4995 Matthew Rushing MD Unavailable +[phone] Matthew Rushing MD Unavailable +[phone] Guerita Elliott J PA-C Unavailable +4 -4995 HarlanGuerita pino J PA-C Unavailable +[phone] Matthew Rushing MD Unavailable +[phone] Matthew Rushing MD Unavailable +[phone] Lilli Elliotther J PA-C Unavailable +[phone] -[phone] Matthew Rushing MD Unavailable +[phone] Guerita Elliott PA-C Unavailable +4 -4995 Matthew Rushing MD Unavailable Lilli Elliotther Alvarez PA-C Unavailable +4 -5 Earl Guerita J PA-C Unavailable +4 -5 Matthew Rushing MD Unavailable +[phone] Matthew Rushing MD Unavailable +[phone] Earl Guerita J PA-C Unavailable +4 -4995 Earl Guerita J PA-C Unavailable +14 [phone] Matthew Rushing MD Unavailable +[phone] Earl Guerita Alvarez PA-C Unavailable +4 -5 Matthew Rushing MD Unavailable +[phone] Matthew Rushing MD Unavailable +[phone] Earl Guerita Alvarez PA-C Unavailable +4 -5 Matthew Rushing MD Unavailable +[phone] Earl Guerita Alvarez PA-C Unavailable +[phone] Matthew Rushing MD Unavailable +[phone] Guerita Elliott PA-C Unavailable +4 -4995 Guerita Elliott PA-C Unavailable +544 -[phone] Matthew Rushing MD Unavailable +[phone] Matthew Rushing MD Unavailable +[phone] Guerita Elliott PA-C Unavailable +544 -4995 Matthew Rushing MD Unavailable +[phone] Guerita Elliott PA-C Unavailable +4 -4995 Matthew Rushing MD Unavailable +[phone] Guerita Elliott PA-C Unavailable +544 -[phone] Guerita Elliott PA-C Unavailable +544 -4995 Matthew Rushing MD Unavailable +[phone] Guerita Elliott-C Unavailable +4 -4995 Matthew Rushing MD Unavailable +[phone] Guerita Elliott PA-C Unavailable +4 -4995 Matthew Rushing MD Unavailable +[phone] Guerita Elliott PA-C Unavailable +4 -4995 Matthew Rushing MD Unavailable +[phone] Guerita Elliott-C Unavailable +[phone] Matthew Rushing MD Unavailable +[phone] Guerita Elliott PA-C Unavailable +[phone] -[phone] Matthew Rushing MD Unavailable +[phone] Txfr Provider [facility], [place], Temporary Primary Care Provider Matthew Rushing MD Unavailable +[phone] Guerita Elliott-C Unavailable +[phone] Matthew Rushing MD Unavailable +[phone] Guerita Elliott PA-C Unavailable +4 -4995 Matthew Rushing MD Unavailable +[phone] Guerita Elliott-C Unavailable +4 -4995 Guerita Elliott PA-C Unavailable +[phone] Matthew Rushing MD Unavailable +[phone] Guerita Elliott-C Unavailable +[phone] Matthew Rushing MD Unavailable +[phone] Matthew Rushing MD Unavailable +[phone] Guerita Elliott-C Unavailable +[phone] Matthew Rushing MD Unavailable Guerita Elliott PA-C Unavailable +4 -5 Guerita Elliott Kim PA-C Unavailable +4 -499 Matthew Rushing MD Unavailable +[phone] Matthew Rushing MD Unavailable +[phone] Guerita Elliott Kim PA-C Unavailable +4 -4995 Matthew Rushing MD Unavailable +[phone] Guerita Elliott PA-C Unavailable +14 [phone] Matthew Rushing MD Unavailable +[phone] Guerita Elliott PA-C Unavailable +4 -4995 Matthew Rushing MD Unavailable +[phone] Guerita Elliott PA-C Unavailable +4 -4995 Guerita Elliott J PA-C Unavailable +4 -4995 Matthew Rushing MD Unavailable +[phone] Matthew Rushing MD Unavailable +[phone] Guerita Elliott Kim PA-C Unavailable +4 -4995 Matthew Rushing MD Unavailable +[phone] Guerita Elliott Kim PA-C Unavailable +4 -4995 Matthew Rushing MD Unavailable +[phone] Guerita Elliott PA-C Unavailable +4 -4995 Guerita Elliott Kim PA-C Unavailable +[phone] -[phone] Matthew Rushing MD Unavailable +[phone] Matthew Rushing MD Unavailable +[phone] Guerita Elliott J PA-C Unavailable +4 -4995 EarlGuerita Kim PA-C Unavailable +4 -4995 Matthew Rushing MD Unavailable +[phone] Guerita Elliott PA-C Unavailable +4 -4995 Matthew Rushing MD Unavailable +[phone] Guerita Elliott PA-C Unavailable +4 -4995 Matthew Rushing MD Unavailable +[phone] Matthew Rushing MD Unavailable +[phone] Guerita Elliott PA-C Unavailable +[phone] Matthew Del Toro MD Primary Care Provider [phone] Guerita Elliott PA-C Unavailable +[phone] Matthew Rushing MD Unavailable +[phone] Guerita Elliott PA-C Unavailable +[phone] Matthew Rushing MD Unavailable +[phone] Guerita Elliott PA-C Unavailable +[phone] Matthew Rushing MD Unavailable +[phone] Guerita Elliott PA-C Unavailable +[phone] Matthew Rushing MD Unavailable Guerita Elliott PA-C Unavailable +[phone] Matthew Rushing MD Unavailable +[phone] Matthew Rushing MD Unavailable +[phone] Guerita Elliott PA-C Unavailable +[phone] Guerita Elliott PA-C Unavailable +024 -[phone] Matthew Rushing MD Unavailable +[phone] Matthew Rushing MD Unavailable +[phone] Guerita Elliott PA-C Unavailable +[phone] Matthew Rushing MD Unavailable +[phone] Guerita Elliott PA-C Unavailable +[phone] Guerita Elliott Kim PA-C Unavailable +4 -4994 Matthew Rushing MD Unavailable +[phone] Matthew Rushing MD Unavailable +[phone] Guerita Elliott PA-C Unavailable +4 -4995 EarlGuerita pino Kim PA-C Unavailable +4 -4994 Matthew Rushing MD Unavailable +[phone] Guerita Elliott PA-C Unavailable +4 -5 Matthew Rushing MD Unavailable +[phone] Matthew Rushing MD Unavailable +[phone] Guerita Elliott Kim PA-C Unavailable +4 -5 Matthew Rushing MD Unavailable +[phone] Guerita Elliott Kim PA-C Unavailable + -5 Matthew Rushing MD Unavailable +[phone] Guerita Elliott Kim PA-C Unavailable +4 -5 Guerita Elliott Kim PA-C Unavailable + -5 Matthew Rushing MD Unavailable Earl Guerita J PA-C Unavailable +4 -5 Matthew Rushing MD Unavailable +[phone] Earl Guerita Kim PA-C Unavailable + -[phone] Matthew Rushing MD Unavailable +[phone] Matthew Rushing MD Unavailable +[phone] Guerita Elliott PA-C Unavailable +4 -4995 Matthew Rushing MD Unavailable +[phone] Earl Guerita J PA-C Unavailable +4 -4995 Matthew Rushing MD Unavailable Guerita Elliott [place]-C Unavailable Guerita Elliott CARLOC Unavailable +[phone] Matthew Rushing MD Unavailable +[phone] Guerita Elliott CARLOC Unavailable +[phone] Matthew Rushing MD Unavailable Guerita Elliott Kim MATOSC Unavailable Matthew Rushing MD Unavailable +[phone] Guerita Elliott Kim SIDDIQI-C Unavailable +[phone] Matthew Rushing MD Unavailable +[phone] Guerita Elliott Kim SIDDIQI-C Unavailable +[phone] Matthew Rushing MD Unavailable [phone] Encounter Details Date Type Department Care Team (Late st Contact Info) Description 06/28/2019 Orders Only [facility] [address] [place] [address] Delfino Becerril MD [address] [place] [address] Social History Tobacco Use Types Packs/Day Years [...] Associated Diagnosis Comments SURGICAL PATHOLOGY REPORT Routine 06/26/2019 documented in this encounter Results * SURGICAL PATHOLOGY REPORT (06/26/2019) us Delfino Becerril MD PATHOLOGY/CYTOLOGY ORDERABL ES Edited Result - Final [facility] [address] [facility] [address] [place] [address] documented in this encounter Visit Diagnoses Not on filedocumented in this encounter Additional Health Concerns Infection Onset Date Last Indicated Resolved Time Symptomatic COVID PUI 06/07/2020 06/07/20202019 5:59 AM EST Asymptomatic COVID PUI 06/07/2020 06/07/202006/10 5:59 AM EST Symptomatic COVID PUI 03/26/2021 03/27/20212020 7:16 PM EDT COVID-19 03/27/2021 03/27/2021 04/17/2021 8:34 PM EDT documented as of this encounter Care Teams Physician Office Clin Asst Relationship Specialty Start Date End Date Dasha Sheppard PA-C [address] [address] PCP - General Family Practice 04/12/18 07/10/23 Txfr Provider Family Medicine [address], [facility] [address] [facility] [address] [place] [address] PCP - General Family Practice 07/11/23 12/11/23 Matthew Del Toro MD [address] [facility] [address] [place] [address] PCP - General Family Practice 12/12/23 Kilo Wang MD Consulting Physician Neurology 08/30/16 12/01/21 Juan Haddad MD [address] [address] Otolaryngology 09/23/17 Trey Jennings MD [address] [place] [address] Consulting Physician Cardiothoracic Surgery 07/13/21 Guerita Elliott PA-C [address] [address] [facility] Specialist Cardiothoracic Surgery 01/03/22 06/27/22 Matthew Rushing MD [address] [place] [address] [facility] Specialist Cardiology - General 03/07/22 03/28/22 Matthew Rushing MD [address] [place] [address] [facility] Specialist Cardiology - General 04/04/22 04/04/22 Matthew Rushing MD [address] [place] [address] [facility] Specialist Cardiology - General 04/11/22 04/11/22 Matthew Rushing MD [address] [place] [address] [facility] Specialist Cardiology - General 04/18/22 04/18/22 Matthew Rushing MD [address] [place] [address] [facility] Specialist Cardiology - General 04/25/22 04/25/22 Matthew Rushing MD [address] [place] [address] [facility] Specialist Cardiology - General 05/02/22 05/02/22 Matthew Rushing MD [address] [place] [address] [facility] Specialist Cardiology - General 05/09/22 05/09/22 Matthew Rushing MD [address] [place] [address] [facility] Specialist Cardiology - General 05/16/22 05/16/22 Matthew Rushing MD [address] [place] [address] [facility] Specialist Cardiology - General 05/23/22 05/23/22 Matthew Rushing MD [address] [place] [address] [facility] Specialist Cardiology - General 05/30/22 05/30/22 Matthew Rushing MD [address] [place] [address] [facility] Specialist Cardiology - General 06/06/22 06/06/22 Matthew Rushing MD [address] [place] [address] [facility] Specialist Cardiology - General 06/13/22 06/13/22 Matthew Rushing MD [address] [place] [address] [facility] Specialist Cardiology - General 06/20/22 06/20/22 Matthew Rushing MD [address] [place] [address] [facility] Specialist Cardiology - General 06/27/22 06/27/22 Trey Jennings MD [address] [address] [facility] Specialist Cardiothoracic Surgery 06/27/22 Guerita Elliott PA-C [address] [address] [facility] Specialist Cardiothoracic Surgery 07/04/22 3 Matthew Rushing MD [address] [place] [address] [facility] Specialist Cardiology - General 07/04/22 07/04/22 Guerita Elliott PA-C [address] [place] [address] [facility] Specialist Cardiothoracic Surgery 07/11/22 3 Matthew Rushing MD [address] [place] [address] [facility] Specialist Cardiology - General 07/11/22 07/11/22 Matthew Rushing MD [address] [place] [address] [facility] Specialist Cardiology - General 07/18/22 07/18/22 Guerita Elliott PA-C [address] [address] [facility] Specialist Cardiothoracic Surgery 07/18/22 3 Guerita Elliott PA-C [address] [address] [facility] Specialist Cardiothoracic Surgery 07/25/22 07/25/22 Matthew Rushing MD [address] [place] [address] [facility] Specialist Cardiology - General 07/25/22 07/25/22 Guerita Elliott PA-C [address] [place] [address] [facility] Specialist Cardiothoracic Surgery 08/01/22 3 Matthew Rushing MD [address] [place] [address] [facility] Specialist Cardiology - General 08/01/22 08/01/22 Matthew Rushing MD [address] [place] [address] [facility] Specialist Cardiology - General 08/08/22 08/08/22 Guerita Elliott PA-C [address] [place] [address] [facility] Specialist Cardiothoracic Surgery 08/08/22 3 Matthew Rushing MD [address] [place] [address] [facility] Specialist Cardiology - General 08/15/22 08/15/22 Guerita Elliott PA-C [address] [address] [facility] Specialist Cardiothoracic Surgery 08/15/22 3 Matthew Rushing MD [address] [place] [address] [facility] Specialist Cardiology - General 08/22/22 08/22/22 Guerita Elliott PA-C [address] [address] [facility] Specialist Cardiothoracic Surgery 08/22/22 08/22/22 Guerita Elliott PA-C [address] [address] [facility] Specialist Cardiothoracic Surgery 08/29/22 3 Matthew Rushing MD [address] [place] [address] [facility] Specialist Cardiology - General 08/29/22 08/29/22 Gueirta Elliott PA-C [address] [address] [facility] Specialist Cardiothoracic Surgery 09/05/22 3 Matthew Rushing MD [address] [place] [address] [facility] Specialist Cardiology - General 09/05/22 09/05/22 Guerita Elliott PA-C [address] [address] [facility] Specialist Cardiothoracic Surgery 09/12/22 Matthew Rushing MD [address] [place] [address] [facility] Specialist Cardiology - General 09/12/22 09/12/22 Guerita Elliott PA-C [address] [address] [facility] Specialist Cardiothoracic Surgery 09/19/22 09/19/22 Matthew Rushing MD [address] [place] [address] [facility] Specialist Cardiology - General 09/19/22 09/19/22 Matthew Rushing MD [address] [place] [address] [facility] Specialist Cardiology - General 09/26/22 09/26/22 Guerita Elliott PA-C [address] [place] [address] [facility] Specialist Cardiothoracic Surgery 09/26/22 09/26/22 Matthew Rushing MD [address] [place] [address] [facility] Specialist Cardiology - General 10/03/22 10/03/22 Guerita Elliott PA-C [address] [place] [address] [facility] Specialist Cardiothoracic Surgery 10/03/22 3 Guerita Elliott PA-C [address] [address] [facility] Specialist Cardiothoracic Surgery 10/10/22 3 Matthew Rushing MD [address] [place] [address] [facility] Specialist Cardiology - General 10/10/22 10/10/22 Matthew Rushing MD [address] [place] [address] [facility] Specialist Cardiology - General 10/17/22 10/17/22 Guerita Elliott PA-C [address] [address] [facility] Specialist Cardiothoracic Surgery 10/17/22 3 Guerita Elliott PA-C [address] [address] [facility] Specialist Cardiothoracic Surgery 10/24/22 10/24/22 Matthew Rushing MD [address] [place] [address] [facility] Specialist Cardiology - General 10/24/22 10/24/22 Matthew Rushing MD [address] [place] [address] [facility] Specialist Cardiology - General 10/31/22 10/31/22 Guerita Elliott PA-C [address] [address] [facility] Specialist Cardiothoracic Surgery 10/31/22 3 Guerita Elliott PA-C [address] [address] [facility] Specialist Cardiothoracic Surgery 11/07/22 3 Matthew Rushing MD [address] [place] [address] [facility] Specialist Cardiology - General 11/07/22 11/07/22 Matthew Rushing MD [address] [place] [address] [facility] Specialist Cardiology - General 11/14/22 11/14/22 Guerita Elliott PA-C [address] [address] [facility] Specialist Cardiothoracic Surgery 11/14/22 3 Guerita Elliott PA-C [address] [address] [facility] Specialist Cardiothoracic Surgery 11/21/22 11/21/22 Matthew Rushing MD [address] [place] [address] [facility] Specialist Cardiology - General 11/21/22 11/21/22 Matthew Rushing MD [address] [place] [address] [facility] Specialist Cardiology - General 11/28/22 11/28/22 Guerita Elliott PA-C [address] [address] [facility] Specialist Cardiothoracic Surgery 11/28/22 3 Guerita Elliott PA-C [address] [place] [address] [facility] Specialist Cardiothoracic Surgery 12/05/22 3 Matthew Rushing MD [address] [place] [address] [facility] Specialist Cardiology - General 12/05/22 12/05/22 Guerita Elliott PA-C [address] [address] [facility] Specialist Cardiothoracic Surgery 12/12/22 3 Matthew Rushing MD [address] [place] [address] [facility] Specialist Cardiology - General 12/12/22 12/12/22 Matthew Rushing MD [address] [place] [address] [facility] Specialist Cardiology - General 12/19/22 12/19/22 Guerita Elliott PA-C [address] [address] [facility] Specialist Cardiothoracic Surgery 12/19/22 12/19/22 Guerita Elliott PA-C [address] [address] [facility] Specialist Cardiothoracic Surgery 12/26/22 12/26/22 Matthew Rushing MD [address] [place] [address] [facility] Specialist Cardiology - General 12/26/22 12/26/22 Matthew Rushing MD [address] [place] [address] [facility] Specialist Cardiology - General 01/02/23 01/02/23 Guerita Elliott PA-C [address] [address] [facility] Specialist Cardiothoracic Surgery 01/02/23 3 Guerita Elliott PA-C [address] [address] [facility] Specialist Cardiothoracic Surgery 01/09/23 3 Matthew Rushing MD [address] [place] [address] [facility] Specialist Cardiology - General 01/09/23 01/09/23 Matthew Rushing MD [address] [place] [address] [facility] Specialist Cardiology - General 01/16/23 01/16/23 Guerita Elliott PA-C [address] [address] [facility] Specialist Cardiothoracic Surgery 01/16/23 3 Matthew Rushing MD [address] [place] [address] [facility] Specialist Cardiology - General 01/23/23 01/23/23 Guerita Elliott PA-C [address] [address] [facility] Specialist Cardiothoracic Surgery 01/23/23 01/23/23 Matthew Rushing MD [address] [place] [address] [facility] Specialist Cardiology - General 01/30/23 01/30/23 Guerita Elliott PA-C [address] [address] [facility] Specialist Cardiothoracic Surgery 01/30/23 3 Guerita Elliott PA-C [address] [address] [facility] Specialist Cardiothoracic Surgery 02/06/23 3 Matthew Rushing MD [address] [place] [address] [facility] Specialist Cardiology - General 02/06/23 02/06/23 Matthew Rushing MD [address] [place] [address] [facility] Specialist Cardiology - General 02/13/23 02/13/23 Guerita Elliott PA-C [address] [address] [facility] Specialist Cardiothoracic Surgery 02/13/23 3 Guerita Elliott PA-C [address] [address] [facility] Specialist Cardiothoracic Surgery 02/20/23 02/20/23 Matthew Rushing MD [address] [place] [address] [facility] Specialist Cardiology - General 02/20/23 02/20/23 Matthew Rushing MD [address] [place] [address] [facility] Specialist Cardiology - General 02/27/23 02/27/23 Guerita Elliott PA-C [address] [address] [facility] Specialist Cardiothoracic Surgery 02/27/23 3 Matthew Rushing MD [address] [place] [address] 22437 [facility] Specialist Cardiology - General 03/06/23 03/06/23 Guerita Elliott PA-C [address] [address] [facility] Specialist Cardiothoracic Surgery 03/06/23 3 Matthew Rushing MD [address] [place] [address] 36739 [facility] Specialist Cardiology - General 03/13/23 03/13/23 Guerita Elliott PA-C [address] [address] [facility] Specialist Cardiothoracic Surgery 03/13/23 3 Guerita Elliott PA-C [address] 59362 [facility] Specialist Cardiothoracic Surgery 03/20/23 3 Matthew Rushing MD [address] [place] [address] 86273 [facility] Specialist Cardiology - General 03/20/23 03/20/23 Matthew Rushing MD [address] [place] [address] 34854 [facility] Specialist Cardiology - General 03/27/23 03/27/23 Guerita Elliott PA-C [address] [address] [facility] Specialist Cardiothoracic Surgery 03/27/23 3 Guerita Elliott PA-C [address] [address] [facility] Specialist Cardiothoracic Surgery 04/03/23 Matthew Rushing MD [address] [place] [address] 64288 [facility] Specialist Cardiology - General 04/03/23 04/03/23 Guerita Elliott PA-C [address] 61709 [facility] Specialist Cardiothoracic Surgery 04/10/23 Matthew Rushing MD [address] [place] [address] 07876 [facility] Specialist Cardiology - General 04/10/23 04/10/23 Matthew Rushing MD [address] [place] [address] 96539 [facility] Specialist Cardiology - General 04/17/23 04/17/23 Guerita Elliott PA-C [address] 0[address] [facility] Specialist Cardiothoracic Surgery 04/17/23 Matthew Rushing MD [address] [place] [address] 24012 [facility] Specialist Cardiology - General 04/24/23 04/24/23 Guerita Elliott PA-C [address] [address]20 [facility] Specialist Cardiothoracic Surgery 04/24/23 3 Matthew Rushing MD [address] [place] [address] 38542 [facility] Specialist Cardiology - General 05/01/23 05/01/23 Guerita Elliott PA-C [address] 18295 [facility] Specialist Cardiothoracic Surgery 05/01/23 Guerita Elliott PA-C [address] 58342 [facility] Specialist Cardiothoracic Surgery 05/08/23 Matthew Rushing MD [address] [place] [address] 29782 [facility] Specialist Cardiology - General 05/08/23 05/08/23 Matthew Rushing MD [address] [place] [address] 66273 [facility] Specialist Cardiology - General 05/15/23 05/15/23 Guerita Elliott PA-C [address] [place] [address] 66642 [facility] Specialist Cardiothoracic Surgery 05/15/23 Matthew Rushing MD [address] [place] [address] 96548 [facility] Specialist Cardiology - General 05/22/23 05/22/23 Guerita Elliott PA-C [address] [address] [facility] Specialist Cardiothoracic Surgery 05/22/23 3 Matthew Rushing MD [address] [place] [address] 80840 [facility] Specialist Cardiology - General 05/29/23 05/29/23 Guerita Elliott PA-C [address] [place] [address] [facility] Specialist Cardiothoracic Surgery 05/29/23 Guerita Elliott PA-C [address] 17[address] [facility] Specialist Cardiothoracic Surgery 06/05/23 Matthew Rushing MD [address] [place] [address] 53007 [facility] Specialist Cardiology - General 06/05/23 06/05/23 Guerita Elliott PA-C [address] 79193 [facility] Specialist Cardiothoracic Surgery 06/12/23 Matthew Rushing MD [address] [place] [address] 23050 [facility] Specialist Cardiology - General 06/12/23 06/12/23 Guerita Elliott PA-C [address] [place] [address] [facility] Specialist Cardiothoracic Surgery 06/19/23 Matthew Rushing MD [address] [place] [address] 22070 [facility] Specialist Cardiology - General 06/19/23 06/19/23 Guerita Elliott PA-C [address] 19971 [facility] Specialist Cardiothoracic Surgery 06/26/23 06/26/23 Matthew Rushing MD [address] [place] [address] 01944 [facility] Specialist Cardiology - General 06/26/23 06/26/23 Guerita Elliott PA-C [address] [address] [facility] Specialist Cardiothoracic Surgery 07/03/23 4 Matthew Rushing MD [address] [place] [address] 79937 [facility] Specialist Cardiology - General 07/03/23 07/03/23 Guerita Elliott PA-C [address] [place] [address] 8[address]76 [facility] Specialist Cardiothoracic Surgery 07/10/23 4 Matthew Rushing MD [address] [place] [address] 50200 [facility] Specialist Cardiology - General 07/10/23 07/10/23 Matthew Rushing MD [address] [place] [address] 88644 [facility] Specialist Cardiology - General 07/17/23 07/17/23 Guerita Elliott PA-C [address] 17147 [facility] Specialist Cardiothoracic Surgery 07/17/23 4 Matthew Rushing MD [address] [place] [address] 68985 [facility] Specialist Cardiology - General 07/24/23 07/24/23 Guerita Elliott PA-C [address] 13277 [facility] Specialist Cardiothoracic Surgery 07/24/23 07/24/23 Matthew Rushing MD [address] [place] [address] 28835 [facility] Specialist Cardiology - General 07/31/23 07/31/23 Guerita Elliott PA-C [address] [address]181 [facility] Specialist Cardiothoracic Surgery 07/31/23 4 Guerita Elliott PA-C [address] 21546 [facility] Specialist Cardiothoracic Surgery 08/07/23 4 Matthew Rushing MD [address] [place] [address] 60992 [facility] Specialist Cardiology - General 08/07/23 08/07/23 Guerita Elliott PA-C [address] 66283 [facility] Specialist Cardiothoracic Surgery 08/14/23 4 Matthew Rushing MD [address] [place] [address] 97214 [facility] Specialist Cardiology - General 08/14/23 08/14/23 Matthew Rushing MD [address] [place] [address] 16877 [facility] Specialist Cardiology - General 08/21/23 08/21/23 Guerita Elliott PA-C [address] 23984 [facility] Specialist Cardiothoracic Surgery 08/21/23 08/21/23 Matthew Rushing MD [address] [place] [address] 20198 [facility] Specialist Cardiology - General 08/28/23 08/28/23 Guerita Elliott PA-C [address] [place] [address] 57033 [facility] Specialist Cardiothoracic Surgery 08/28/23 4 Guerita Elliott PA-C [address] [place] [address] 06953 [facility] Specialist Cardiothoracic Surgery 09/04/23 4 Matthew Rushing MD [address] [place] [address] 75483 [facility] Specialist Cardiology - General 09/04/23 09/04/23 Matthew Rushing MD [address] [place] [address] 82101 [facility] Specialist Cardiology - General 09/11/23 09/11/23 Guerita Elliott PA-C [address] [place] [address] [facility] Specialist Cardiothoracic Surgery 09/11/23 4 Matthew Rushing MD [address] [place] [address] 21370 [facility] Specialist Cardiology - General 09/18/23 09/18/23 Guerita Elliott PA-C [address] [place] [address] [facility] Specialist Cardiothoracic Surgery 09/18/23 4 Matthew Rushing MD [address] [place] [address] 27028 [facility] Specialist Cardiology - General 09/25/23 09/25/23 Guerita Elliott PA-C [address] [place] [address] [facility] Specialist Cardiothoracic Surgery 09/25/23 09/25/23 Matthew Rushing MD [address] [place] [address], [place] [address] [facility] Specialist Cardiology - General 10/02/23 10/02/23 Guerita Elliott PA-C [address] [place] [address] [facility] Specialist Cardiothoracic Surgery 10/02/23 4 Guerita Elliott PA-C [address] [place] [address] [facility] Specialist Cardiothoracic Surgery 10/09/23 4 Matthew Rushing MD [address] [place] [address] 97979 [facility] Specialist Cardiology - General 10/09/23 10/09/23 Matthew Rushing MD [address] [place] [address] 64447 [facility] Specialist Cardiology - General 10/16/23 10/16/23 Guerita Elliott PA-C [address] 279[address] [facility] Specialist Cardiothoracic Surgery 10/16/23 4 Matthew Rushing MD [address] [place] [address] 86037 [facility] Specialist Cardiology - General 10/23/23 10/23/23 Guerita Elliott PA-C [address] [place] [address] 96552 [facility] Specialist Cardiothoracic Surgery 10/23/23 10/23/23 Matthew Rushing MD [address] [place] [address] 47837 [facility] Specialist Cardiology - General 10/30/23 10/30/23 Guerita Elliott PA-C [address] [place] [address] 41422 [facility] Specialist Cardiothoracic Surgery 10/30/23 4 Guerita Elliott PA-C [address] [address] [facility] Specialist Cardiothoracic Surgery 11/06/23 4 Matthwe Rushing MD [address] [place] [address] 98022 [facility] Specialist Cardiology - General 11/06/23 11/06/23 Matthew Rushing MD [address] [place] [address] 01330 [facility] Specialist Cardiology - General 11/13/23 11/13/23 Guerita Elliott PA-C [address] [address]183 [facility] Specialist Cardiothoracic Surgery 11/13/23 4 Guerita Elliott PA-C [address] 95606 [facility] Specialist Cardiothoracic Surgery 11/20/23 11/20/23 Matthew Rushing MD [address] [place] [address] 20519 [facility] Specialist Cardiology - General 11/20/23 11/20/23 Guerita Elliott PA-C [address] 94676 [facility] Specialist Cardiothoracic Surgery 11/27/23 11/27/23 Matthew Rushing MD [address] [place] [address] 48421 [facility] Specialist Cardiology - General 11/27/23 11/27/23 Guerita Elliott PA-C [address] 76720 [facility] Specialist Cardiothoracic Surgery 12/04/23 4 Matthew Rushing MD [address] [place] [address] 65667 [facility] Specialist Cardiology - General 12/04/23 12/04/23 Matthew Rushing MD [address] [place] [address] 06631 [facility] Specialist Cardiology - General 12/11/23 12/11/23 Guerita Elliott PA-C [address] [address]203 [facility] Specialist Cardiothoracic Surgery 12/11/23 4 Guerita Elliott PA-C [address] 98931 [facility] Specialist Cardiothoracic Surgery 12/18/23 4 Matthew Rushing MD [address] [place] [address] 73276 [facility] Specialist Cardiology - General 12/18/23 12/18/23 Guerita Elliott PA-C [address] 60587 [facility] Specialist Cardiothoracic Surgery 12/25/23 12/25/23 Matthew Rushing MD [address] [place] [address] 14997 [facility] Specialist Cardiology - General 12/25/23 12/25/23 Guerita Elliott PA-C [address] 49735 [facility] Specialist Cardiothoracic Surgery 01/01/24 4 Matthew Rushing MD [address] [place] [address] 77048 [facility] Specialist Cardiology - General 01/01/24 01/01/24 Guerita Elliott PA-C [address] 95643 [facility] Specialist Cardiothoracic Surgery 01/08/24 4 Matthew Rushing MD [address] [place] [address] 66509 [facility] Specialist Cardiology - General 01/08/24 01/08/24 Guerita Elliott PA-C [address] 53054 [facility] Specialist Cardiothoracic Surgery 01/15/24 4 Matthew Rushing MD [address] [place] [address] 04753 [facility] Specialist Cardiology - General 01/15/24 01/15/24 Matthew Rushing MD [address] [place] [address] 95962 [facility] Specialist Cardiology - General 01/22/24 01/22/24 Guerita Elliott PA-C [address] 14984 [facility] Specialist Cardiothoracic Surgery 01/22/24 01/22/24 Guerita Elliott PA-C [address] 82247 [facility] Specialist Cardiothoracic Surgery 01/29/24 4 Matthew Rushing MD [address] [place] [address] 87871 [facility] Specialist Cardiology - General 01/29/24 01/29/24 Matthew Rushing MD [address] [place] [address] 40887 [facility] Specialist Cardiology - General 02/05/24 02/05/24 Guerita Elliott PA-C [address] 80020 [facility] Specialist Cardiothoracic Surgery 02/05/24 4 Matthew Rushing MD [address] [place] [address] 38344 [facility] Specialist Cardiology - General 02/12/24 02/12/24 Guerita Elliott PA-C [address] 23448 [facility] Specialist Cardiothoracic Surgery 02/12/24 4 Guerita Elliott PA-C [address] 52270 [facility] Specialist Cardiothoracic Surgery 02/19/24 02/19/24 Matthew Rushing MD [address] [place] [address] 70842 [facility] Specialist Cardiology - General 02/19/24 02/19/24 Matthew Rushing MD [address] [place] [address] 89809 [facility] Specialist Cardiology - General 02/26/24 02/26/24 Guerita Elliott PA-C [address] 23611 [facility] Specialist Cardiothoracic Surgery 02/26/24 02/26/24 Guerita Elliott PA-C [address] 16768 [facility] Specialist Cardiothoracic Surgery 03/04/24 4 Matthew Rushing MD [address] [place] [address] 27781 [facility] Specialist Cardiology - General 03/04/24 03/04/24 Guerita Elliott PA-C [address] 25158 [facility] Specialist Cardiothoracic Surgery 03/11/24 4 Matthew Rushing MD [address] [place] [address] 30030 [facility] Specialist Cardiology - General 03/11/24 03/11/24 Matthew Rushing MD [address] [place] [address] 31289 [facility] Specialist Cardiology - General 03/18/24 03/18/24 Guerita Elliott PA-C [address] [place] [address] 57350 [facility] Specialist Cardiothoracic Surgery 03/18/24 Matthew Rushing MD [address] [place] [address] 24207 [facility] Specialist Cardiology - General 03/25/24 03/25/24 Guerita Elliott PA-C [address] [place] [address] 24312 [facility] Specialist Cardiothoracic Surgery 03/25/24 Matthew Rushing MD [address] [place] [address] 31252 [facility] Specialist Cardiology - General 04/01/24 04/01/24 Guerita Elliott PA-C [address] [place] [address] 94457 [facility] Specialist Cardiothoracic Surgery 04/01/24 Guerita Elliott PA-C [address] [place] [address] 98117 [facility] Specialist Cardiothoracic Surgery 04/08/24 Matthew Rushing MD [address] [place] [address] 54615 [facility] Specialist Cardiology - General 04/08/24 04/08/24 Guerita Elliott PA-C [address] 50292 [facility] Specialist Cardiothoracic Surgery 04/15/24 Matthew Rushing MD [address] [place] [address] 72773 [facility] Specialist Cardiology - General 04/15/24 04/15/24 Guerita Elliott PA-C [address] 80102 [facility] Specialist Cardiothoracic Surgery 04/22/24 4 Matthew Rushing MD [address] [place] [address] 93269 [facility] Specialist Cardiology - General 04/22/24 04/22/24 Matthew Rushing MD [address] [place] [address] 86874 [facility] Specialist Cardiology - General 04/29/24 04/29/24 Guerita Elliott PA-C [address] [place] [address] 70388 [facility] Specialist Cardiothoracic Surgery 04/29/24 Matthew Rushing MD [address] [place] [address] 34366 [facility] Specialist Cardiology - General 05/06/24 05/06/24 Guerita Elliott PA-C [address] 31257 [facility] Specialist Cardiothoracic Surgery 05/06/24 Matthew Rushing MD [address] [place] [address] 71940 [facility] Specialist Cardiology - General 05/13/24 05/13/24 Guerita Elliott PA-C [address] 90497 [facility] Specialist Cardiothoracic Surgery 05/13/24 Guerita Elliott PA-C [address] [place] [address] 58230 [facility] Specialist Cardiothoracic Surgery 05/20/24 4 Matthew Rushing MD [address] [place] [address] 00211 [facility] Specialist Cardiology - General 05/20/24 05/20/24 Guerita Elliott PA-C [address] 30600 [facility] Specialist Cardiothoracic Surgery 05/27/24 4 Matthew Rushing MD [address] [place] [address] 03760 [facility] Specialist Cardiology - General 05/27/24 05/27/24 Guerita Elliott PA-C [address] 79334 [facility] Specialist Cardiothoracic Surgery 06/03/24 Matthew Rushing MD [address] [place] [address] 37133 [facility] Specialist Cardiology - General 06/03/24 06/03/24 Guerita Elliott PA-C [address] 84309 [facility] Specialist Cardiothoracic Surgery 06/10/24 Matthew Rushing MD [address] [place] [address] 62394 [facility] Specialist Cardiology - General 06/10/24 06/10/24 Guerita Elliott PA-C [address] 32689 [facility] Specialist Cardiothoracic Surgery 06/17/24 Matthew Rushing MD [address] [place] [address] 46411 [facility] Specialist Cardiology - General 06/17/24 06/17/24 documented as of this encounter
--- OUTSIDE RECORDS SUMMARY | 2024-06-24 04:37 | XMS_ITS | Encounter Summary ---
Author Organization [facility] alth Address [address] [place] [address] Care Team Providers Care Gelatin Powder Mixer Name Role Phone Kilo Wang MD Unavailable [phone] Juan Haddad MD Unavailable [phone] Dasha Sheppard PA-C Primary Care Provider Reason for Visit * Reason Onset Date Comments Order Request 12/31/2019 Encounter Details Date Type Department Care Team (Late st Contact Info) Description 12/31/2019 Telephone [facility] [address] [phone] Matthew Rushing MD [address] [place] [address] Order Request Social History Tobacco Use Types Packs/Day [...] encounter Miscellaneous Notes * Telephone Encounter - Tarah Solorio - 12/31/2019 10:52 AM EDT Noted in referral - due June 2020 * Telephone Encounter - Maine Cardozo RN - 12/31/2019 9:06 AM EDT Pt notified of Dr. Rushing's recommendations. CTA chest order entered to be completed in 6 months. * Telephone Encounter - Maine Cardozo RN - 12/31/2019 9:05 AM EDT ----- Message from Matthew Rushing MD sent at 12/30/2019 9:44 AM EDT ----- Recommend repeat CT angiogram of the chest to re-evaluate aorta in 6 months. documented in this encounter Plan of Treatment Not on file documented as of this encounter Goals Goal Patient Goal Type Associated Problems Recent Progress Patient-Stated? Author Blood Pressure < 140/90 Blood Pressure 160/96( 024 8:13 AM EDT) No Kilo Wang MD documented as of this encounter Visit Diagnoses Diagnosis Thoracic aortic aneurysm without rupture (CMS/[facility]) Thoracic aneurysm without mention of rupture documented in this encounter Care Teams Gelatin Powder Mixer Relationship Specialty Start Date End Date Dasha Sheppard PA-C [address] [address] PCP - General Family Practice 04/12/18 07/10/23 Kilo Wang MD Consulting Physician Neurology 08/30/16 12/01/21 Juan Haddad MD [address] [address] Otolaryngology 09/23/17 documented as of this encounter
--- OUTSIDE RECORDS SUMMARY | 2024-06-24 04:37 | XMS_ITS | Encounter Summary ---
Author Organization [facility] alth Address [address] [place] [address] Care Team Providers Care Heating Technician Name Role Phone Kilo Wang MD Unavailable [phone] Juan Haddad MD Unavailable [phone] Dasha Sheppard PA-C Primary Care Provider Reason for Visit * Reason Comments Refill Request Amlodipine / [facility] Encounter Details Date Type Department Care Team (Late st Contact Info) Description 03/06/2020 Refill [facility] [address] [phone] Matthew Rushing MD [address] [place] [address] Refill Request (Amlodipine / [facility]) Social History Tobacco Use Types Packs/Day Years [...] encounter Miscellaneous Notes * Telephone Encounter - Jocelyn Brooks - 03/06/2020 3:31 PM EDT [facility] Refill Request Amlodipine Last G provider office visit: 07/31/18 Next OV: Due for f/u - pt [facility] Last BMP: Lab Results Component Value Date/Time [...] on filedocumented in this encounter Care Teams Heating Technician Relationship Specialty Start Date End Date Dasha Sheppard PA-C [address] [address] PCP - General Family Practice 04/12/18 07/10/23 Kilo Wang MD Consulting Physician Neurology 08/30/16 12/01/21 Juan Haddad MD [address] [address] Otolaryngology 09/23/17 documented as of this encounter
--- OUTSIDE RECORDS SUMMARY | 2024-06-24 04:37 | XMS_ITS | Encounter Summary ---
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 Phone Kilo Wang MD Unavailable [phone] Juan Haddad MD Unavailable [phone] Dasha Sheppard PA-C Primary Care Provider Trey Jennings MD Unavailable +[phone] Guerita Elliott-C Unavailable +[phone] Matthew Rushing MD Unavailable Matthew Rushing MD Unavailable +[phone] Matthew Rushing MD Unavailable +[phone] Matthew Rushing MD Unavailable +[phone] Matthew Rushing MD Unavailable +[phone] Matthew Rushing MD Unavailable +[phone] Matthew Rushing MD Unavailable +[phone] Matthew Rushing MD Unavailable +[phone] Matthew Rushing MD Unavailable +[phone] Matthew Rushing MD Unavailable +[phone] Matthew Rushing MD Unavailable +[phone] Matthew Rushing MD Unavailable +[phone] Matthew Rushing MD Unavailable +[phone] Matthew Rushing MD Unavailable +[phone] Trey Jennings MD Unavailable +4 -5 Guerita Elliott PA-C Unavailable +4 -5 Matthew Rushing MD Unavailable +[phone] Guerita Elliott J PA-C Unavailable +4 -5 Matthew Rushing MD Unavailable +[phone] Matthew Rushing MD Unavailable +[phone] Guerita Elliott PA-C Unavailable +4 -5 Guerita Elliott PA-C Unavailable +4 [phone] Matthew Rushing MD Unavailable +[phone] Guerita Elliott PA-C Unavailable +4 -5 Matthew Rushing MD Unavailable +[phone] Matthew Rushing MD Unavailable +[phone] Guerita Elliott PA-C Unavailable +4 -5 Matthew Rushing MD Unavailable +[phone] Guerita Elliott PA-C Unavailable +4 -[phone] Matthew Rushing MD Unavailable +[phone] Guerita Elliott PA-C Unavailable +4 -4995 Guerita Elliott PA-C Unavailable +[phone] Matthew Rushing MD Unavailable +[phone] Guerita Elliott PA-C Unavailable +4 -4995 Matthew Rushing MD Unavailable +[phone] Guerita Elliott PA-C Unavailable +[phone] Matthew Rushing MD Unavailable +[phone] Wallace, Guerita J PA-C Unavailable +4 -5 Matthew Rushing MD Unavailable +[phone] Matthew Rushing MD Unavailable +[phone] Guerita Elliott PA-C Unavailable +4 -4995 Matthew Rushing MD Unavailable +[phone] Guerita Elliott J PA-C Unavailable +4 -[phone] Guerita Elliott J PA-C Unavailable +4 -4995 Matthew Rushing MD Unavailable Matthew Rushing MD Unavailable +[phone] Guerita Elliott J PA-C Unavailable +4 -4995 Guerita Elliott Kim PA-C Unavailable +[phone] Matthew Rushing MD Unavailable +[phone] Matthew Rushing MD Unavailable +[phone] Guerita Elliott Kim PA-C Unavailable +[phone] Guerita Elliott Kim PA-C Unavailable +4 -4995 Matthew Rushing MD Unavailable +[phone] Matthew Rushing MD Unavailable +[phone] Guerita Elliott Kim PA-C Unavailable +4 -[phone] WallaceLilli pinoher Alvarez PA-C Unavailable +[phone] Matthew Rushing MD Unavailable +[phone] Matthew Rushing MD Unavailable +[phone] Guerita Elliott J PA-C Unavailable +4 -[phone] EarlLilliGuerita J PA-C Unavailable +[phone] Matthew Rushing MD Unavailable +[phone] Guerita Elliott Kim PA-C Unavailable +[phone] Matthew Rushing MD Unavailable +[phone] Matthew Rushign MD Unavailable +[phone] Earl Guerita J PA-C Unavailable +4 -5 Lilli Elliotther J PA-C Unavailable +4 -4995 Matthew Rushing MD Unavailable +[phone] Matthew Rushing MD Unavailable +[phone] Earl Guerita J PA-C Unavailable +4 -4995 Earl Guerita J PA-C Unavailable +4 -4995 Matthew Rushing MD Unavailable +[phone] Matthew Rushing MD Unavailable +[phone] Guerita Elliott PA-C Unavailable +4 -5 Matthew Rushing MD Unavailable +[phone] EarlGuerita J PA-C Unavailable +4 -4995 Matthew Rushing MD Unavailable +[phone] EarlGuerita pino J PA-C Unavailable +4 -4995 Guerita Elliott J PA-C Unavailable +4 -4995 Matthew Rushing MD Unavailable +[phone] Matthew Rushing MD Unavailable +[phone] Guerita Elliott J PA-C Unavailable +4 -4995 EarlGuerita pino J PA-C Unavailable +[phone] Matthew Rushing MD Unavailable +[phone] Matthew Rushing MD Unavailable +[phone] Lilli Elliotther J PA-C Unavailable +[phone] Matthew Rushing MD Unavailable +[phone] Guerita Elliott PA-C Unavailable +4 -4995 Matthew Rushing MD Unavailable +[phone] Lilli Elliotther Alvarez PA-C Unavailable +4 -5 Earl Guerita J PA-C Unavailable +4 -5 Matthew Rushing MD Unavailable +[phone] Matthew Rushing MD Unavailable +[phone] Earl Guerita J PA-C Unavailable +4 -[phone] Earl Guerita J PA-C Unavailable +[phone] Matthew Rushing MD Unavailable +[phone] Earl Guerita Alvarez PA-C Unavailable +4 -5 Matthew Rushing MD Unavailable +[phone] Matthew Rushing MD Unavailable +[phone] Earl Guerita Alvarez PA-C Unavailable +4 -5 Matthew Rushing MD Unavailable +[phone] Earl Guerita Alvarez PA-C Unavailable +[phone] Matthew Rushing MD Unavailable +[phone] Guerita Elliott PA-C Unavailable +4 -4995 Guerita Elliott PA-C Unavailable +[phone] Matthew Rushing MD Unavailable +[phone] Matthew Rushing MD Unavailable +[phone] Guerita Elliott PA-C Unavailable +[phone] Matthew Rushing MD Unavailable +[phone] Guertia Elliott PA-C Unavailable +4 -4995 Matthew Rushing MD Unavailable +[phone] Guerita Elliott PA-C Unavailable +[phone] Guerita Elliott PA-C Unavailable +544 [phone] Matthew Rushing MD Unavailable +[phone] Guerita Elliott-C Unavailable +4 -4995 Matthew Rushing MD Unavailable +[phone] Guerita Elliott PA-C Unavailable +4 -4995 Matthew Rushing MD Unavailable +[phone] Guerita Elliott PA-C Unavailable +4 -4995 Matthew Rushing MD Unavailable +[phone] Guerita Elliott-C Unavailable +[phone] Matthew Rushing MD Unavailable +[phone] Guerita Elliott PA-C Unavailable +[phone] Matthew Rushing MD Unavailable +[phone] Txfr Provider [facility], Temporary Primary Care Provider Matthew Rushing MD Unavailable +[phone] Guerita Elliott-C Unavailable +[phone] Matthew Rushing MD Unavailable +[phone] Guerita Elliott PA-C Unavailable +4 -4995 Matthew Rushing MD Unavailable +[phone] Guerita Elliott-C Unavailable +4 -4995 Guerita Elliott PA-C Unavailable +[phone] Matthew Rushing MD Unavailable +[phone] Guerita Elliott-C Unavailable +[phone] Matthew Rushing MD Unavailable +[phone] Matthew Rushing MD Unavailable +[phone] Guerita Elliott-C Unavailable +[phone] Matthew Rushing MD Unavailable +[phone] Guerita Elliott PA-C Unavailable +4 -5 Guerita Elliott Kim PA-C Unavailable +4 -[phone] Matthew Rushing MD Unavailable Matthew Rushing MD Unavailable +[phone] Guerita Elliott Kim PA-C Unavailable +4 -4995 Matthew Rushing MD Unavailable +[phone] Guerita Elliott PA-C Unavailable +[phone] Matthew Rushing MD Unavailable +[phone] Guerita Elliott PA-C Unavailable +4 -4995 Matthew Rushing MD Unavailable +[phone] Guerita Elliott PA-C Unavailable +4 -4995 Guerita Elliott J PA-C Unavailable +4 -4995 Matthew Rushing MD Unavailable +[phone] Matthew Rushing MD Unavailable +[phone] Guerita Elliott Kim PA-C Unavailable +4 -4995 Matthew Rushing MD Unavailable Guerita Elliott Kim PA-C Unavailable +4 -4995 Matthew Rushing MD Unavailable +[phone] Guerita Elliott PA-C Unavailable +4 -4995 Guerita Elliott Kim PA-C Unavailable +[phone] Matthew Rushing MD Unavailable +[phone] Matthew Rushing MD Unavailable Guerita Elliott J PA-C Unavailable +4 -[phone] EarlGuerita Kim PA-C Unavailable +4 -4995 Matthew Rushing MD Unavailable +[phone] Guerita Elliott PA-C Unavailable +4 -4995 Matthew Rushing MD Unavailable +[phone] Guerita Elliott PA-C Unavailable +4 -4995 Matthew Rushing MD Unavailable +[phone] Matthew Rushing MD Unavailable +[phone] Guerita Elliott PA-C Unavailable +[phone] Matthew Del Toro MD Primary Care Provider [phone] Guerita Elliott PA-C Unavailable +[phone] Matthew Rushing MD Unavailable +[phone] Guerita Elliott PA-C Unavailable +[phone] Matthew Rushing MD Unavailable +[phone] Guerita Elliott PA-C Unavailable +[phone] Matthew Rushing MD Unavailable +[phone] Guerita Elliott PA-C Unavailable +[phone] Matthew Rushing MD Unavailable +[phone] Guerita Elliott PA-C Unavailable +[phone] Matthew Rushing MD Unavailable +[phone] Matthew Rushing MD Unavailable +[phone] Guerita Elliott PA-C Unavailable +[phone] Guerita Elliott PA-C Unavailable +[phone] Matthew Rushing MD Unavailable +[phone] Matthew Rushing MD Unavailable +[phone] Guerita Elliott PA-C Unavailable +[phone] Matthew Rushing MD Unavailable +[phone] Guerita Elliott PA-C Unavailable +[phone] Guerita Elliott PA-C Unavailable +[phone] Matthew Rushing MD Unavailable +[phone] Matthew Rushing MD Unavailable +[phone] Guerita Elliott PA-C Unavailable +[phone] Guerita Elliott PA-C Unavailable +[phone] Matthew Rushing MD Unavailable +[phone] Guerita Elliott PA-C Unavailable +[phone] Matthew Rushing MD Unavailable +[phone] Matthew Rushing MD Unavailable +[phone] Guerita Elliott PA-C Unavailable +[phone] Matthew Rushing MD Unavailable +[phone] Guerita Elliott PA-C Unavailable [phone] Encounter Details Date Type Department Care Team (Late st Contact Info) Description 03/25/2020 Telephone [facility] [address] [place] [address] Documentation, Only Social History Tobacco Use Types Packs/Day Years [...] and Family Not on file 09/30/2020 Attends [employer] Not on file 09/30 Active Member [...] encounter Miscellaneous Notes * Telephone Encounter - Paula Whatley - 03/25/2020 3:07 PM EDT Telephone encounter created in error. 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 [address] [place] [address] [address] PCP - General Family Practice 12/12/23 Kilo Wang MD Consulting Physician Neurology 08/30/16 12/01/21 Juan Haddad MD [address] [place] [address] [place] [address] Otolaryngology 09/23/17 Trey Jennings MD [address] [facility] [address] [place] [address] Consulting Physician Cardiothoracic Surgery 07/13/21 Guerita Elliott PA-C [address] [place] [address] [facility] Specialist Cardiothoracic Surgery 01/03/22 06/27/22 Matthew Rushing MD [address] [place] [address] [facility] Specialist Cardiology - General 03/07/22 03/28/22 Matthew Rushing MD [address] [place] [address] [facility] Specialist Cardiology - General 04/04/22 04/04/22 Matthew Rushing MD [address] [place] [address] [facility] Specialist Cardiology - General 04/11/22 04/11/22 Matthew Rushing MD [address] [place] [address] [facility] Specialist Cardiology - General 04/18/22 04/18/22 Matthew Rushing MD [address] [place] [address] [facility] Specialist Cardiology - General 04/25/22 04/25/22 Matthew Rushing MD [address] [place] [address] 489[address] [facility] Specialist Cardiology - General 05/02/22 05/02/22 Matthew Rushing MD [address] [place] [address] [facility] Specialist Cardiology - General 05/09/22 05/09/22 Matthew Rushing MD [address] [place] [address]67 [facility] Specialist Cardiology - General 05/16/22 05/16/22 Matthew Rushing MD [address] [place] [address] [facility] Specialist Cardiology - General 05/23/22 05/23/22 Matthew Rushing MD [address] [place] [address] [facility] Specialist Cardiology - General 05/30/22 05/30/22 Matthew Rushing MD [address] [place] [address] 269[address] [facility] Specialist Cardiology - General 06/06/22 06/06/22 Matthew Rushing MD [address] [place] [address] [facility] Specialist Cardiology - General 06/13/22 06/13/22 Matthew Rushing MD [address] [place] [address] [facility] Specialist Cardiology - General 06/20/22 06/20/22 Matthew Rushing MD [address] [place] [address] [facility] Specialist Cardiology - General 06/27/22 06/27/22 Trey Jennings MD [address] [place] [address] [facility] Specialist Cardiothoracic Surgery 06/27/22 Guerita Elliott PA-C [address] [address] [facility] Specialist Cardiothoracic Surgery 07/04/22 3 Matthew Rushing MD [address] [place] [address] [facility] Specialist Cardiology - General 07/04/22 07/04/22 Guerita Elliott PA-C [address] [address] [facility] Specialist Cardiothoracic Surgery 07/11/22 3 Matthew Rushing MD [address] [place] [address] [facility] Specialist Cardiology - General 07/11/22 07/11/22 Matthew Rushing MD [address] [place] [address] [facility] Specialist Cardiology - General 07/18/22 07/18/22 Guerita Elliott PA-C [address] [address] [facility] Specialist Cardiothoracic Surgery 07/18/22 3 Guerita Elliott PA-C [address] [address] [facility] Specialist Cardiothoracic Surgery 07/25/22 07/25/22 Matthew Rushing MD [address] [place] [address] [facility] Specialist Cardiology - General 07/25/22 07/25/22 Guerita Elliott PA-C [address] [address] [facility] Specialist Cardiothoracic Surgery 08/01/22 3 Matthew Rushing MD [address] [place] [address] 78[address] [facility] Specialist Cardiology - General 08/01/22 08/01/22 Matthew Rushing MD [address] [place] [address] [facility] Specialist Cardiology - General 08/08/22 08/08/22 Guerita Elliott PA-C [address] [place] [address] [facility] Specialist Cardiothoracic Surgery 08/08/22 3 Matthew Rushing MD [address] [place] [address] [facility] Specialist Cardiology - General 08/15/22 08/15/22 Guerita Elliott PA-C [address] [place] [address] [facility] Specialist Cardiothoracic Surgery 08/15/22 3 Matthew Rushing MD [address] [place] [address] [facility] Specialist Cardiology - General 08/22/22 08/22/22 Guerita Elliott PA-C [address] [address] [facility] Specialist Cardiothoracic Surgery 08/22/22 08/22/22 Guerita Elliott PA-C [address] [address] [facility] Specialist Cardiothoracic Surgery 08/29/22 3 Matthew Rushing MD [address] [place] [address] [facility] Specialist Cardiology - General 08/29/22 08/29/22 Guerita Elliott PA-C [address] [place] [address] [facility] Specialist Cardiothoracic Surgery 09/05/22 3 Matthew Rushing MD [address] [place] [address] [facility] Specialist Cardiology - General 09/05/22 09/05/22 Guerita Elliott PA-C [address] [place] [address] [facility] Specialist Cardiothoracic Surgery 09/12/22 3 Matthew Rushing MD [address] [place] [address] [facility] Specialist Cardiology - General 09/12/22 09/12/22 Guerita Elliott PA-C [address] [place] [address] [facility] Specialist Cardiothoracic Surgery 09/19/22 09/19/22 Matthew Rushing MD [address] [place] [address] [facility] Specialist Cardiology - General 09/19/22 09/19/22 Matthew Rushing MD [address] [place] [address] 15644 [facility] Specialist Cardiology - General 09/26/22 09/26/22 Guerita Elliott PA-C [address] [address] [facility] Specialist Cardiothoracic Surgery 09/26/22 09/26/22 Matthew Rushing MD [address] [place] [address] [facility] Specialist Cardiology - General 10/03/22 10/03/22 Guerita Elliott PA-C [address] [address] [facility] Specialist Cardiothoracic Surgery 10/03/22 3 Guerita Elliott PA-C [address] [address] [facility] Specialist Cardiothoracic Surgery 10/10/22 3 Matthew Rsuhing MD [address] [place] [address] 289[address] [facility] Specialist Cardiology - General 10/10/22 10/10/22 Matthew Rushing MD [address] [place] [address] 136[address] [facility] Specialist Cardiology - General 10/17/22 10/17/22 Guerita Elliott PA-C [address] [address] [facility] Specialist Cardiothoracic Surgery 10/17/22 3 Guerita Elliott PA-C [address] [place] [address] [facility] Specialist Cardiothoracic Surgery 10/24/22 10/24/22 Matthew Rushing MD [address] [place] [address] [facility] Specialist Cardiology - General 10/24/22 10/24/22 Matthew Rushing MD [address] [place] [address] 376[address] [facility] Specialist Cardiology - General 10/31/22 10/31/22 Guerita Elliott PA-C [address] [place] [address] [facility] Specialist Cardiothoracic Surgery 10/31/22 3 Guerita Elliott PA-C [address] [place] [address] [facility] Specialist Cardiothoracic Surgery 11/07/22 3 Matthew Rushing MD [address] [place] [address] [facility] Specialist Cardiology - General 11/07/22 11/07/22 Matthew Rushing MD [address] [place] [address] 495[address] [facility] Specialist Cardiology - General 11/14/22 11/14/22 Guerita Elliott PA-C [address] [address] [facility] Specialist Cardiothoracic Surgery 11/14/22 3 Guerita Elliott PA-C [address] [address] [facility] Specialist Cardiothoracic Surgery 11/21/22 11/21/22 Matthew Rushing MD [address] [place] [address] 225[address] [facility] Specialist Cardiology - General 11/21/22 11/21/22 Matthew Rushing MD [address] [place] [address] 42542 [facility] Specialist Cardiology - General 11/28/22 11/28/22 Guerita Elliott PA-C [address] [address] [facility] Specialist Cardiothoracic Surgery 11/28/22 3 Guerita Elliott PA-C [address] [address] [facility] Specialist Cardiothoracic Surgery 12/05/22 3 Matthew Rushing MD [address] [place] [address] 25985 [facility] Specialist Cardiology - General 12/05/22 12/05/22 Guerita Elliott PA-C [address] [address] [facility] Specialist Cardiothoracic Surgery 12/12/22 3 Matthew Rushing MD [address] [place] [address] [facility] Specialist Cardiology - General 12/12/22 12/12/22 Matthew Rushing MD [address] [place] [address] [facility] Specialist Cardiology - General 12/19/22 12/19/22 Guerita Elliott PA-C [address] [place] [address] [facility] Specialist Cardiothoracic Surgery 12/19/22 12/19/22 Guerita Elliott PA-C [address] [place] [address] [facility] Specialist Cardiothoracic Surgery 12/26/22 12/26/22 Matthew Rushing MD [address] [place] [address] [facility] Specialist Cardiology - General 12/26/22 12/26/22 Matthew Rushing MD [address] [place] [address] [facility] Specialist Cardiology - General 01/02/23 01/02/23 Guerita Elliott PA-C [address] [address] [facility] Specialist Cardiothoracic Surgery 01/02/23 3 Guerita Elliott PA-C [address] [address] [facility] Specialist Cardiothoracic Surgery 01/09/23 3 Matthew Rushing MD [address] [place] [address] [facility] Specialist Cardiology - General 01/09/23 01/09/23 Matthew Rushing MD [address] [place] [address] [facility] Specialist Cardiology - General 01/16/23 01/16/23 Guerita Elliott PA-C [address] [address] [facility] Specialist Cardiothoracic Surgery 01/16/23 3 Matthew Rushing MD [address] [place] [address] 220[address] [facility] Specialist Cardiology - General 01/23/23 01/23/23 Guerita Elliott PA-C [address] [address] [facility] Specialist Cardiothoracic Surgery 01/23/23 01/23/23 Matthew Rushing MD [address] [place] [address] 94[address] [facility] Specialist Cardiology - General 01/30/23 01/30/23 Guerita Elliott PA-C [address] [address] [facility] Specialist Cardiothoracic Surgery 01/30/23 3 Guerita Elliott PA-C [address] [address] [facility] Specialist Cardiothoracic Surgery 02/06/23 3 Matthew Rushing MD [address] [place] [address] 68[address] [facility] Specialist Cardiology - General 02/06/23 02/06/23 Matthew Rushing MD [address] [place] [address] 54[address] [facility] Specialist Cardiology - General 02/13/23 02/13/23 Guerita Elliott PA-C [address] [place] [address] [facility] Specialist Cardiothoracic Surgery 02/13/23 3 Guerita Elliott PA-C [address] [place] [address] 423[address] [facility] Specialist Cardiothoracic Surgery 02/20/23 02/20/23 Matthew Rushing MD [address] [place] [address] 301[address] [facility] Specialist Cardiology - General 02/20/23 02/20/23 Matthew Rushing MD [address] [place] [address] 52431 [facility] Specialist Cardiology - General 02/27/23 02/27/23 Guerita Elliott PA-C [address] [address] [facility] Specialist Cardiothoracic Surgery 02/27/23 3 Matthew Rushing MD [address] [place] [address] [facility] Specialist Cardiology - General 03/06/23 03/06/23 Guerita Elliott PA-C [address] [address] [facility] Specialist Cardiothoracic Surgery 03/06/23 3 Matthew Rushing MD [address] [place] [address] [facility] Specialist Cardiology - General 03/13/23 03/13/23 Guerita Elliott PA-C [address] [address] [facility] Specialist Cardiothoracic Surgery 03/13/23 3 Guerita Elliott PA-C [address] [address] [facility] Specialist Cardiothoracic Surgery 03/20/23 3 Matthew Rushing MD [address] [place] [address] [facility] Specialist Cardiology - General 03/20/23 03/20/23 Matthew Rushing MD [address] [place] [address]14 [facility] Specialist Cardiology - General 03/27/23 03/27/23 Guerita Elliott PA-C [address] [address] [facility] Specialist Cardiothoracic Surgery 03/27/23 3 Guerita Elliott PA-C [address] [address] [facility] Specialist Cardiothoracic Surgery 04/03/23 Matthew Rushing MD [address] [place] [address] [facility] Specialist Cardiology - General 04/03/23 04/03/23 Guerita Elliott PA-C [address] [address] [facility] Specialist Cardiothoracic Surgery 04/10/23 Matthew Rushing MD [address] [place] [address] [facility] Specialist Cardiology - General 04/10/23 04/10/23 Matthew Rushing MD [address] [place] [address] [facility] Specialist Cardiology - General 04/17/23 04/17/23 Guerita Elliott PA-C [address] [address] [facility] Specialist Cardiothoracic Surgery 04/17/23 Matthew Rushing MD [address] [place] [address] [facility] Specialist Cardiology - General 04/24/23 04/24/23 Guerita Elliott PA-C [address] [address] [facility] Specialist Cardiothoracic Surgery 04/24/23 3 Matthew Rushing MD [address] [place] [address] [facility] Specialist Cardiology - General 05/01/23 05/01/23 Guerita Elliott PA-C [address] [address] [facility] Specialist Cardiothoracic Surgery 05/01/23 Guerita Elliott PA-C [address] [address] [facility] Specialist Cardiothoracic Surgery 05/08/23 Matthew Rushing MD [address] [place] [address] [facility] Specialist Cardiology - General 05/08/23 05/08/23 Matthew Rushing MD [address] [place] [address] [facility] Specialist Cardiology - General 05/15/23 05/15/23 Guerita Elliott PA-C [address] [place] [address]00 [facility] Cardiothoracic Surgery 05/15/23 Matthew Rushing MD [address] [place] [address] 28027 [facility] Cardiology - General 05/22/23 05/22/23 Guerita Elliott PA-C [address] [place] [address]59 [facility] Cardiothoracic Surgery 05/22/23 3 Matthew Rushing MD [address] [place] [address] 09102 [facility] Cardiology - General 05/29/23 05/29/23 Guerita Elliott PA-C [address] [place] [address] 91051 [facility] Cardiothoracic Surgery 05/29/23 Guerita Elliott PA-C [address] [place] [address] 21175 [facility] Cardiothoracic Surgery 06/05/23 Matthew Rusihng MD [address] [place] [address] 31401 [facility] Cardiology - General 06/05/23 06/05/23 Guerita Elliott PA-C [address] [address] [facility] Cardiothoracic Surgery 06/12/23 Matthew Rushing MD [address] [place] [address] 89887 [facility] Cardiology - General 06/12/23 06/12/23 Guerita Elliott PA-C [address] [place] [address] 66264 [facility] Cardiothoracic Surgery 06/19/23 Matthew Rushing MD [address] [place] [address] 39992 [facility] Cardiology - General 06/19/23 06/19/23 Guerita Elliott PA-C [address] [place] [address] 45205 [facility] Cardiothoracic Surgery 06/26/23 06/26/23 Matthew Rushing MD [address] [place] [address] 17890 [facility] Cardiology - General 06/26/23 06/26/23 Guerita Elliott PA-C [address] [place] [address] 08114 [facility] Cardiothoracic Surgery 07/03/23 4 Matthew Rushing MD [address] [place] [address] 18836 [facility] Cardiology - General 07/03/23 07/03/23 Guerita Elliott PA-C [address] [address] [facility] Cardiothoracic Surgery 07/10/23 4 Matthew Rushing MD [address] [place] [address] 47656 [facility] Cardiology - General 07/10/23 07/10/23 Matthew Rushing MD [address] [place] [address] 68979 [facility] Cardiology - General 07/17/23 07/17/23 Guerita Elliott PA-C [address] [address] [facility] Cardiothoracic Surgery 07/17/23 4 Matthew Rushing MD [address] [place] [address] 95220 [facility] Cardiology - General 07/24/23 07/24/23 Guerita Elliott PA-C [address] [address] [facility] Cardiothoracic Surgery 07/24/23 07/24/23 Matthew Rushing MD [address] [place] [address] 01235 [facility] Cardiology - General 07/31/23 07/31/23 Guerita Elliott PA-C [address] [place] [address] [facility] Cardiothoracic Surgery 07/31/23 4 Guerita Elliott PA-C [address] [address] [facility] Cardiothoracic Surgery 08/07/23 4 Matthew Rushing MD [address] [place] [address] 29944 [facility] Cardiology - General 08/07/23 08/07/23 Guerita Elliott PA-C [address] [address] [facility] Cardiothoracic Surgery 08/14/23 4 Matthew Rushing MD [address] [place] [address] 80100 [facility] Cardiology - General 08/14/23 08/14/23 Matthew Rushing MD [address] [place] [address] 59627 [facility] Cardiology - General 08/21/23 08/21/23 Guerita Elliott PA-C [address] [address] [facility] Cardiothoracic Surgery 08/21/23 08/21/23 Matthew Rushnig MD [address] [place] [address] 21022 [facility] Cardiology - General 08/28/23 08/28/23 Guerita Elliott PA-C [address] [address] [facility] Cardiothoracic Surgery 08/28/23 4 Guerita Elliott PA-C [address] [address] [facility] Cardiothoracic Surgery 09/04/23 4 Matthew Rushing MD [address] [place] [address] 00429 [facility] Cardiology - General 09/04/23 09/04/23 Matthew Rushing MD [address] [place] [address] 45111 [facility] Cardiology - General 09/11/23 09/11/23 Guerita Elliott PA-C [address] [address] [facility] Cardiothoracic Surgery 09/11/23 4 Matthew Rushing MD [address] [place] [address] 60940 [facility] Cardiology - General 09/18/23 09/18/23 Guerita Elliott PA-C [address] [address] [facility] Cardiothoracic Surgery 09/18/23 4 Matthew Rushing MD [address] [place] [address] 40030 [facility] Cardiology - General 09/25/23 09/25/23 Guerita Elliott PA-C [address] [address] [facility] Cardiothoracic Surgery 09/25/23 09/25/23 Matthew Rushing MD [address] [place] [address] 11357 [facility] Cardiology - General 10/02/23 10/02/23 Guerita Elliott PA-C [address] [address] [facility] Cardiothoracic Surgery 10/02/23 4 Guerita Elliott PA-C [address] [address] [facility] Cardiothoracic Surgery 10/09/23 4 Matthew Rushing MD [address] [place] [address] 10302 [facility] Cardiology - General 10/09/23 10/09/23 Matthew Rushing MD [address] [place] [address] 78794 [facility] Cardiology - General 10/16/23 10/16/23 Guerita Elliott PA-C [address] [address] [facility] Cardiothoracic Surgery 10/16/23 4 Matthew Rushing MD [address] [place] [address] 94890 [facility] Cardiology - General 10/23/23 10/23/23 Guerita Elliott PA-C [address] [address] [facility] Cardiothoracic Surgery 10/23/23 10/23/23 Matthew Rushing MD [address] [place] [address] 72936 [facility] Cardiology - General 10/30/23 10/30/23 Guerita Elliott PA-C [address] [address] [facility] Cardiothoracic Surgery 10/30/23 4 Guerita Elliott PA-C [address] [address] [facility] Cardiothoracic Surgery 11/06/23 4 Matthew Rushing MD [address] [place] [address] 63458 [facility] Cardiology - General 11/06/23 11/06/23 Matthew Rushing MD [address] [place] [address] 36807 [facility] Cardiology - General 11/13/23 11/13/23 Guerita Elliott PA-C [address] [address] [facility] Cardiothoracic Surgery 11/13/23 Guerita Elliott PA-C [address] [address] [facility] Cardiothoracic Surgery 11/20/23 11/20/23 Matthew Rushing MD [address] [place] [address] 91622 [facility] Cardiology - General 11/20/23 11/20/23 Guerita Elliott PA-C [address] [address] [facility] Cardiothoracic Surgery 11/27/23 11/27/23 Matthew Rushing MD [address] [place] [address] 36068 [facility] Cardiology - General 11/27/23 11/27/23 Guerita Elliott PA-C [address] [place] [address] 65869 [facility] Cardiothoracic Surgery 12/04/23 Matthew Rushing MD [address] [place] [address] 52862 [facility] Cardiology - General 12/04/23 12/04/23 Matthew Rushing MD [address] [place] [address] 85432 [facility] Cardiology - General 12/11/23 12/11/23 Guerita Elliott PA-C [address] [address] [facility] Cardiothoracic Surgery 12/11/23 4 Guerita Elliott PA-C [address] [place] [address] 06640 [facility] Cardiothoracic Surgery 12/18/23 4 Matthew Rushing MD [address] [place] [address] 07586 [facility] Cardiology - General 12/18/23 12/18/23 Guerita Elliott PA-C [address] [place] [address] 50068 [facility] Cardiothoracic Surgery 12/25/23 12/25/23 Matthew Rushing MD [address] [place] [address] 66079 [facility] Cardiology - General 12/25/23 12/25/23 Guerita Elliott PA-C [address] [place] [address] 39233 [facility] Cardiothoracic Surgery 01/01/24 4 Matthew Rushing MD [address] [place] [address] 99311 [facility] Cardiology - General 01/01/24 01/01/24 Guerita Elliott PA-C [address] [address] [facility] Cardiothoracic Surgery 01/08/24 4 Matthew Rushing MD [address] [place] [address] 25921 [facility] Cardiology - General 01/08/24 01/08/24 Guerita Elliott PA-C [address] [place] [address] 97706 [facility] Cardiothoracic Surgery 01/15/24 4 Matthew Rushing MD [address] [place] [address] 04280 [facility] Cardiology - General 01/15/24 01/15/24 Matthew Rushing MD [address] [place] [address] 56931 [facility] Cardiology - General 01/22/24 01/22/24 Guerita Elliott PA-C [address] [address] [facility] Cardiothoracic Surgery 01/22/24 01/22/24 Guerita Elliott PA-C [address] [place] [address] 67850 [facility] Cardiothoracic Surgery 01/29/24 4 Matthew Rushing MD [address] [place] [address] 29939 [facility] Cardiology - General 01/29/24 01/29/24 Matthew Rushing MD [address] [place] [address] 47225 [facility] Cardiology - General 02/05/24 02/05/24 Guerita Elliott PA-C [address] [address] [facility] Cardiothoracic Surgery 02/05/24 4 Matthew Rushing MD [address] [place] [address] 24382 [facility] Cardiology - General 02/12/24 02/12/24 Guerita Elliott PA-C [address] [address] [facility] Cardiothoracic Surgery 02/12/24 4 Guerita Elliott PA-C [address] [address] [facility] Cardiothoracic Surgery 02/19/24 02/19/24 Matthew Rushing MD [address] [place] [address] 47306 [facility] Cardiology - General 02/19/24 02/19/24 Matthew Rushing MD [address] [place] [address] 74810 [facility] Cardiology - General 02/26/24 02/26/24 Guerita Elliott PA-C [address] [address] [facility] Cardiothoracic Surgery 02/26/24 02/26/24 Guerita Elliott PA-C [address] [address] [facility] Cardiothoracic Surgery 03/04/24 4 Matthew Rushing MD [address] [place] [address] 00957 [facility] Cardiology - General 03/04/24 03/04/24 Guerita Elliott PA-C [address] [address] [facility] Cardiothoracic Surgery 03/11/24 4 Matthew Rushing MD [address] [place] [address] 98975 [facility] Cardiology - General 03/11/24 03/11/24 Matthew Rushing MD [address] [place] [address] 75325 [facility] Cardiology - General 03/18/24 03/18/24 Guerita Elliott PA-C [address] [address] [facility] Cardiothoracic Surgery 03/18/24 4 Matthew Rushing MD [address] [place] [address] [place] [address] [facility] Cardiology - General 03/25/24 03/25/24 Guerita Elliott PA-C [address] [place] [address] [address] [place] [address] [facility] Cardiothoracic Surgery 03/25/24 4 documented as of this encounter
--- OUTSIDE RECORDS SUMMARY | 2024-06-24 04:37 | XMS_ITS | Encounter Summary ---
Author Organization [facility] alth Address [address] [address] Care Team Providers Care Web Producer Name Role Phone Kilo Wang MD Unavailable [phone] Juan Haddad MD Unavailable [phone] Dasha Sheppard PA-C Primary Care Provider Trey Jennings MD Unavailable +[phone] Guerita Elliott-C Unavailable +[phone] Matthew Rushing MD Unavailable [phone] Matthew Rushing MD Unavailable +[phone] Matthew Rushing MD Unavailable +[phone] Matthew Rushing MD Unavailable +[phone] Matthew Rushing MD Unavailable +[phone] Matthew Rushing MD Unavailable +[phone] Matthew Rushing MD Unavailable +[phone] Matthew Rushing MD Unavailable +[phone] Matthew Rushing MD Unavailable +[phone] Matthew Rushing MD Unavailable +[phone] Matthew Rushing MD Unavailable +[phone] Matthew Rushing MD Unavailable +[phone] Matthew Rushing MD Unavailable +[phone] Matthew Rushing MD Unavailable +[phone] Trey Jennings MD Unavailable +4 -5 Guerita Elliott PA-C Unavailable +4 -5 Matthew Rushing MD Unavailable +[phone] Guerita Elliott J PA-C Unavailable +4 -5 Matthew Rushing MD Unavailable +[phone] Matthew Rushing MD Unavailable +[phone] Guerita Elliott PA-C Unavailable +4 -5 Guerita Elliott PA-C Unavailable +[phone] Matthew Rushing MD Unavailable +[phone] Guerita Elliott PA-C Unavailable +4 -5 Matthew Rushing MD Unavailable +[phone] Matthew Rushing MD Unavailable +[phone] Guerita Elliott PA-C Unavailable +4 -5 Matthew Rushing MD Unavailable +[phone] Guerita Elliott PA-C Unavailable +[phone] Matthew Rushing MD Unavailable Guerita Elliott PA-C Unavailable +[phone] Guerita Elliott PA-C Unavailable +[phone] Matthew Rushing MD Unavailable +[phone] Guerita Elliott PA-C Unavailable +4 [phone] Matthew Rushing MD Unavailable +[phone] Guerita Elliott PA-C Unavailable +[phone] Matthew Rushing MD Unavailable +[phone] Earl, Guerita J PA-C Unavailable +4 -5 Matthew Rushing MD Unavailable +[phone] Matthew Rushing MD Unavailable +[phone] Guerita Elliott PA-C Unavailable +4 [phone] Matthew Rushing MD Unavailable +[phone] Guerita Elliott J PA-C Unavailable +[phone] Guerita Elliott J PA-C Unavailable +4 [phone] Matthew Rushing MD Unavailable +[phone] Matthew Rushing MD Unavailable +[phone] Guerita Elliott J PA-C Unavailable +4 [phone] Guerita Elliott Kim PA-C Unavailable +[phone] Matthew Rushing MD Unavailable +[phone] Matthew Rushing MD Unavailable +[phone] Guerita Elliott Kim PA-C Unavailable +[phone] Guerita Elliott Kim PA-C Unavailable +4 [phone] Matthew Rushing MD Unavailable +[phone] Matthew Rushing MD Unavailable +[phone] Guerita Elliott Kim PA-C Unavailable +4 -[phone] [place] HeightsLilli pinoher Alvarez PA-C Unavailable +[phone] Matthew Rushing MD Unavailable +[phone] Matthew Rushing MD Unavailable Guerita Elliott J PA-C Unavailable +[phone] EarlLilliGuerita J PA-C Unavailable +[phone] Matthew Rushing MD Unavailable +[phone] Guerita Elliott Kim PA-C Unavailable +[phone] Matthew Rushing MD Unavailable +[phone] Matthew Rushing MD Unavailable +[phone] Earl Guerita J PA-C Unavailable +4 -5 Lilli Elliotther J PA-C Unavailable +4 [phone] Matthew Rushing MD Unavailable +[phone] Matthew Rushing MD Unavailable +[phone] Earl Guerita J PA-C Unavailable +4 -[phone] Earl Guerita J PA-C Unavailable +4 [phone] Matthew Rushing MD Unavailable +[phone] Matthew Rushing MD Unavailable +[phone] Guerita Elliott PA-C Unavailable +4 -5 Matthew Rushing MD Unavailable +[phone] EarlGuerita J PA-C Unavailable +4 [phone] Matthew Rushing MD Unavailable +[phone] [place] HeightsGuerita pino J PA-C Unavailable +4 -[phone] Guerita Elliott J PA-C Unavailable +4 [phone] Matthew Rushing MD Unavailable +[phone] Matthew Rushing MD Unavailable +[phone] Guerita Elliott J PA-C Unavailable +4 -[phone] [place] HeightsGuerita pino J PA-C Unavailable +[phone] Matthew Rushing MD Unavailable +[phone] Matthew Rushing MD Unavailable +[phone] Lilli Elliotther J PA-C Unavailable +[phone] Matthew Rushing MD Unavailable +[phone] Guerita Elliott PA-C Unavailable +4 [phone] Matthew Rushing MD Unavailable +[phone] Lilli Elliotther Alvarez PA-C Unavailable +4 -5 Earl Guerita J PA-C Unavailable +4 -5 Matthew Rushing MD Unavailable +[phone] Matthew Rushing MD Unavailable +[phone] Earl Guerita J PA-C Unavailable +4 [phone] Earl Guerita J PA-C Unavailable +[phone] Matthew Rushing MD Unavailable +[phone] Earl Guerita Alvarez PA-C Unavailable +4 -5 Matthew Rushing MD Unavailable +[phone] Matthew Rushing MD Unavailable +[phone] Earl Guerita Alvarez PA-C Unavailable +4 -5 Matthew Rushing MD Unavailable +[phone] Earl Guerita Alvarez PA-C Unavailable +[phone] Matthew Rushing MD Unavailable +[phone] Guerita Elliott PA-C Unavailable +4 -4995 Guerita Elliott PA-C Unavailable +[phone] Matthew Rushing MD Unavailable +[phone] Matthew Rushing MD Unavailable +[phone] Guerita Elliott PA-C Unavailable +[phone] Matthew Rushing MD Unavailable +[phone] Guerita Elliott PA-C Unavailable +4 -4995 Matthew Rushing MD Unavailable +[phone] Guerita Elliott PA-C Unavailable +[phone] Guerita Elliott PA-C Unavailable +[phone] Matthew Rushing MD Unavailable Guerita Elliott-C Unavailable +4 -[phone] Matthew Rushing MD Unavailable +[phone] Guerita Elliott PA-C Unavailable +4 -4995 Matthew Rushing MD Unavailable +[phone] Guerita Elliott PA-C Unavailable +4 -[phone] Matthew Rushing MD Unavailable +[phone] Guerita Elliott-C Unavailable +[phone] Matthew Rushing MD Unavailable +[phone] Guerita Elliott PA-C Unavailable +[phone] Matthew Rushing MD Unavailable +[phone] Txfr Provider [facility], Temporary Primary Care Provider Matthew Rushing MD Unavailable [phone] Guerita Elliott-C Unavailable +[phone] Matthew Rushing MD Unavailable +[phone] Guerita Elliott PA-C Unavailable +4 [phone] Matthew Rushing MD Unavailable +[phone] Guerita Elliott-C Unavailable +4 -[phone] Guerita Elliott PA-C Unavailable +[phone] Matthew Rushing MD Unavailable +[phone] Guerita Elliott-C Unavailable +[phone] Matthew Rushing MD Unavailable +[phone] Matthew Rushing MD Unavailable +[phone] Guerita Elliott-C Unavailable +[phone] Matthew Rushing MD Unavailable Guerita Elliott PA-C Unavailable +4 -5 Guerita Elliott Kim PA-C Unavailable +4 [phone] Matthew Rushing MD Unavailable +[phone] Matthew Rushing MD Unavailable Guerita Elliott Kim PA-C Unavailable +4 [phone] Matthew Rushing MD Unavailable +[phone] Guerita Elliott PA-C Unavailable +[phone] Matthew Rushing MD Unavailable +[phone] Guerita Elliott PA-C Unavailable +4 [phone] Matthew Rushing MD Unavailable +[phone] Guerita Elliott PA-C Unavailable +4 [phone] Guerita Elliott J PA-C Unavailable +4 [phone] Matthew Rushing MD Unavailable +[phone] Matthew Rushing MD Unavailable +[phone] Guerita Elliott Kim PA-C Unavailable +4 -[phone] Matthew Rushing MD Unavailable +[phone] Guerita Elliott Kim PA-C Unavailable +4 [phone] Mattehw Rushing MD Unavailable +[phone] Guerita Elliott PA-C Unavailable +4 -[phone] Guerita Elliott Kim PA-C Unavailable +[phone] Matthew Rushing MD Unavailable +[phone] Matthew Rushing MD Unavailable +[phone] Guerita Elliott J PA-C Unavailable +4 -[phone] EarlGuerita Kim PA-C Unavailable +4 -4995 Matthew Rushing MD Unavailable +[phone] Guerita Elliott PA-C Unavailable +4 -[phone] Matthew Rushing MD Unavailable +[phone] Guerita Elliott PA-C Unavailable +4 -4995 Matthew Rushing MD Unavailable +[phone] Matthew Rushing MD Unavailable +[phone] Guerita Elliott PA-C Unavailable +[phone] Matthew Del Toro MD Primary Care Provider [phone] Guerita Elliott PA-C Unavailable +[phone] Matthew Rushing MD Unavailable [phone] Guerita Elliott PA-C Unavailable +[phone] Matthew Rushing MD Unavailable +[phone] Guerita Elliott PA-C Unavailable +[phone] Matthew Rushing MD Unavailable +[phone] Guerita Elliott PA-C Unavailable +[phone] Matthew Rushing MD Unavailable +[phone] Guerita Elliott PA-C Unavailable +[phone] Matthew Rushing MD Unavailable +[phone] Matthew Rushing MD Unavailable +[phone] Guerita Ellitot PA-C Unavailable +[phone] Guerita Elliott PA-C Unavailable +[phone] Matthew Rushing MD Unavailable [phone] Matthew Rushing MD Unavailable +[phone] Guerita Elliott PA-C Unavailable +[phone] Matthew Rushing MD Unavailable +[phone] Guerita Elliott PA-C Unavailable +[phone] Guerita Elliott Kim PA-C Unavailable +[phone] Matthew Rushing MD Unavailable +[phone] Matthew Rushing MD Unavailable +[phone] Guerita Elliott PA-C Unavailable +[phone] EarlGuerita pino Kim PA-C Unavailable +[phone] Matthew Rushing MD Unavailable [phone] Guerita Elliott PA-C Unavailable +4 -5 Matthew Rushing MD Unavailable +[phone] Matthew Rushing MD Unavailable +[phone] Guerita Elliott Kim PA-C Unavailable +4 -5 Matthew Rushing MD Unavailable +[phone] Guerita Elliott Kim PA-C Unavailable + -5 Matthew Rushing MD Unavailable +[phone] Guerita Elliott Kim PA-C Unavailable +4 -5 Guerita Elliott Kim PA-C Unavailable + -5 Matthew Rushing MD Unavailable +[phone] Earl Guerita J PA-C Unavailable +4 -5 Matthew Rushing MD Unavailable +[phone] Earl Guerita Kim PA-C Unavailable + [phone] Matthew Rushing MD Unavailable +[phone] Matthew Rushing MD Unavailable [phone] Guerita Elliott PA-C Unavailable +4 [phone] Matthew Rushing MD Unavailable +[phone] Earl Guerita J PA-C Unavailable +4 [phone] Matthew Rushing MD Unavailable +[phone] Guerita Elliott NEERU-C Unavailable +[phone] Guerita Elliott NEERU-C Unavailable +[phone] Matthew Rushing MD Unavailable +[phone] Guerita Elliott PA-C Unavailable +[phone] Matthew Rushing MD Unavailable +[phone] Guerita Elliott NEERU-C Unavailable +[phone] Matthew Rushign MD Unavailable +[phone] Guerita Elliott NEERU-C Unavailable +[phone] Matthew Rushing MD Unavailable [phone] Guerita Elliott PA-C Unavailable +[phone] Matthew Rushing MD Unavailable [phone] Reason for Referral * Test/Procedure/Other (Routine) - Closed Specialty Diagnoses / Procedures Referred By Contcarlie t Referred To Contact Radiology Diagnoses Thoracic aortic aneurysm without rupture (CMS/HCC) Procedures CT ANGIOGRAM CHEST Matthew Rushing MD [address] [place] [address] Phone: tel: fax: Referral ID Status Reason Start Date Expiration Date Visits Re quested Visits Authorized [id number] Closed 11/29/2019 05/27/2020 1 1 Encounter Details Date Type Department Care Team (Late st Contact Info) Description 11/26/2019 Orders Only [facility] [address] [address] Matthew Rushing MD [address] [place] [address] Thoracic aortic aneurysm without rupture (CMS/HCC) Social History Tobacco Use Types Packs/Day Years [...] as of this encounter Results * CT ANGIOGRAM CHEST (12/18/2019 9:44 AM EDT) Anatomical Region Laterality Modality Chest Computed Tomogra phy 12/18/2019 9:19 AM EDT Impressions 12/18/2019 3:22 PM EDT Mild aneurysmal dilatation at the aortic root up to 50 mm at the level of the sinuses of Valsalva. This does appear slightly increased since prior imaging given motion at this level. Other findings as described. Dictating Narrative 12/18/2019 3:22 PM EDT Procedure: CT ANGIOGRAM CHEST Indication: Thoracic aortic aneurysm without rupture, follow-up Comparison: CT chest 07/03/2018, reference to the echocardiogram report 11/22/2019 Technique: CT examination of the chest was performed as a CTA chest. Study was performed from the thoracic inlet through the adrenal glands following administration of 100 cc Isovue 370 IV contrast. MIP reformatted images were obtained from the axial data. 3-D postprocessing was performed by the radiologist on an independent workstation and interpreted using volume rendering, MIP and MPR reconstructions. All exams performed by [facility] utilize one or more of the following dose optimization techniques: automated exposure control, adjustment of the mA and/or kV according to patient size and/or the use of iterative reconstruction techniques. Audits are completed at the protocol, device and patient level to ensure compliance. All protocols (per device) are periodically reviewed by a team of medical physicists, technologists and radiologists. FINDINGS: Lymph nodes: No enlarged axillary, mediastinal or hilar nodes. Thoracic aortic measurements: Annulus:30.3 x 24.4 mm with an average bdipirns81.2 mm. Sinus of Valsalva: 50.2 x 45.2 x 44.5 mm. Ascending aorta: 31.2 x 34.4 mm with an average diameter 33.1 mm. Proximal arch: 31.2 x 32.7 mm with an average diameter 31.9 mm. Mid arch: 28.2 x 30.5 mm with an average diameter 29.5 mm. Distal arch: 25.7 x27.6 mm with an average diameter 26.7 mm. Descending aorta: 25.0 x 26.1 mm with an average diameter 25.6 mm. Level of diaphragm: 22.5 x 24.3 mm with an average diameter 23.4 mm. Heart and mediastinum: No findings of thoracic aortic dissection or ulceration. Thoracic aortic measurements as above. The branch vessels of the aortic arch are patent. There is a mild degree of motion artifact at the level of the aortic root both on the current study and on prior imaging which limits comparison for change. This overall appears subjectively slightly increased since prior study. Heart size is normal with no pericardial effusion. The main pulmonary artery measures 2.6 cm. There are coronary artery calcifications. Hilum: No enlarged lymph nodes. No hilar mass. Chest wall: No suspicious abnormality. Lungs: No dense consolidation or pleural effusion. Mild degree of motion artifact. Upper abdomen: Stable nodule LEFT adrenal gland which has been described as an adenoma on prior imaging. Bones: Degenerative changes in thoracic spine. Procedure Note Mynor Mejia MD - 12/18/2019 Procedure: CT ANGIOGRAM CHEST Indication: Thoracic aortic aneurysm without rupture, follow-up Comparison: CT chest 07/03/2018, reference to the echocardiogram report11/22/2019 Technique: CT examination of the chest was performed as a CTA chest. Study wasperformed from the thoracic inlet through the adrenal glands followingadministration of 100 cc Isovue 370 IV contrast. MIP reformatted imageswere obtained from the axial data. 3-D postprocessing was performed by theradiologist on an independent workstation and interpreted using volumerendering, MIP and MPR reconstructions. All exams performed by [facility] utilize one or more of the following doseoptimization techniques: automated exposure control, adjustment of the mAand/or kV according to patient size and/or the use of iterativereconstruction techniques. Audits are completed at the protocol, deviceand patient level to ensure compliance. All protocols (per device) areperiodically reviewed by a team of medical physicists, technologists andradiologists. FINDINGS: Lymph nodes: No enlarged axillary, mediastinal or hilar nodes. Thoracic aortic measurements: Annulus:30.3 x 24.4 mm with an average iaodxsff45.2 mm. Sinus of Valsalva: 50.2 x 45.2 x 44.5 mm. Ascending aorta: 31.2 x 34.4 mm with an average diameter 33.1 mm. Proximal arch: 31.2 x 32.7 mm with an average diameter 31.9 mm. Mid arch: 28.2 x 30.5 mm with an average diameter 29.5 mm. Distal arch: 25.7 x27.6 mm with an average diameter 26.7 mm. Descending aorta: 25.0 x 26.1 mm with an average diameter 25.6 mm. Level of diaphragm: 22.5 x 24.3 mm with an average diameter 23.4 mm. Heart and mediastinum: No findings of thoracic aortic dissection orulceration. Thoracic aortic measurements as above. The branch vessels ofthe aortic arch are patent. There is a mild degree of motion artifact atthe level of the aortic root both on the current study and on priorimaging which limits comparison for change. This overall appearssubjectively slightly increased since prior study. Heart size is normalwith no pericardial effusion. The main pulmonary artery measures 2.6 cm.There are coronary artery calcifications. Hilum: No enlarged lymph nodes. No hilar mass. Chest wall: No suspicious abnormality. Lungs: No dense consolidation or pleural effusion. Mild degree of motionartifact. Upper abdomen: Stable nodule LEFT adrenal gland which has been describedas an adenoma on prior imaging. Bones: Degenerative changes in thoracic spine. IMPRESSION: Mild aneurysmal dilatation at the aortic root up to 50 mm at the level ofthe sinuses of Valsalva. This does appear slightly increased since priorimaging given motion at this level. Other findings as described. Dictating us Matthew Rushing MD LG RIS CT ORDERABLES Final Resu lt documented in this encounter Visit Diagnoses Diagnosis Thoracic aortic aneurysm without rupture (CMS/HCC) Thoracic aneurysm without mention of rupture Thoracic aortic aneurysm without rupture (CMS/HCC) Thoracic aneurysm without mention of rupture documented in this encounter Additional Health Concerns Infection Onset Date Last Indicated Resolved Time Symptomatic COVID PUI 06/07/2020 06/07/20202019 5:59 AM EST Asymptomatic COVID PUI 06/07/2020 06/07/202006/10 5:59 AM EST Symptomatic COVID PUI 03/26/2021 03/27/20212020 7:16 PM EDT COVID-19 03/27/2021 03/27/2021 04/17/2021 8:34 PM EDT documented as of this encounter Care Teams Web Producer Relationship Specialty Start Date End Date Dasha Sheppard PA-C [address] [address] PCP - General Family Practice 04/12/18 07/10/23 Txfr Provider Family Medicine [place], Temporary [address] [facility] [address] [address] PCP - General Family Practice 07/11/23 12/11/23 Matthew Del Toro MD [address] [facility] [address] [address] PCP - General Family Practice 12/12/23 Kilo Wang MD Consulting Physician Neurology 08/30/16 12/01/21 Juan Haddad MD [address] [address] Otolaryngology 09/23/17 Trey Jennings MD [address] [place] [address] [address] [address] Consulting Physician Cardiothoracic Surgery 07/13/21 Guerita Elliott PA-C [address] [place] [address] [facility] Specialist Cardiothoracic Surgery 01/03/22 06/27/22 Matthew Rushing MD [address] [place] [address] [facility] Specialist Cardiology - General 03/07/22 03/28/22 Matthew Rushing MD [address] [place] [address] [facility] Specialist Cardiology - General 04/04/22 04/04/22 Matthew Rushing MD [address] [place] [address] [facility] Specialist Cardiology - General 04/11/22 04/11/22 Matthew Rushing MD [address] [place] [address] [facility] Specialist Cardiology - General 04/18/22 04/18/22 Matthew Rushing MD [address] [place] [address] [facility] Specialist Cardiology - General 04/25/22 04/25/22 Matthew Rushing MD [address] [place] [address] [facility] Specialist Cardiology - General 05/02/22 05/02/22 Matthew Rushing MD [address] [place] [address] [facility] Specialist Cardiology - General 05/09/22 05/09/22 Matthew Rushing MD [address] [place] [address] [facility] Specialist Cardiology - General 05/16/22 05/16/22 Matthew Rushing MD [address] [place] [address] [facility] Specialist Cardiology - General 05/23/22 05/23/22 Matthew Rushing MD [address] [place] [address] [facility] Specialist Cardiology - General 05/30/22 05/30/22 Matthew Rushing MD [address] [place] [address] [facility] Specialist Cardiology - General 06/06/22 06/06/22 Matthew Rushing MD [address] [place] [address] [facility] Specialist Cardiology - General 06/13/22 06/13/22 Matthew Rushing MD [address] [place] [address] [facility] Specialist Cardiology - General 06/20/22 06/20/22 Matthew Rushing MD [address] [place] [address] [facility] Specialist Cardiology - General 06/27/22 06/27/22 Trey Jennings MD [address] [place] [address] [facility] Specialist Cardiothoracic Surgery 06/27/22 Guerita Elliott PA-C [address] [address] [facility] Specialist Cardiothoracic Surgery 07/04/22 3 Matthew Rushing MD [address] [place] [address] [facility] Specialist Cardiology - General 07/04/22 07/04/22 Guerita Elliott PA-C [address] [address] [facility] Specialist Cardiothoracic Surgery 07/11/22 3 Matthew Rushing MD [address] [place] [address] [facility] Specialist Cardiology - General 07/11/22 07/11/22 Matthew Rushing MD [address] [place] [address] [facility] Specialist Cardiology - General 07/18/22 07/18/22 Guerita Elliott PA-C [address] [address] [facility] Specialist Cardiothoracic Surgery 07/18/22 3 Guerita Elliott PA-C [address] [address] [facility] Specialist Cardiothoracic Surgery 07/25/22 07/25/22 Matthew Rushing MD [address] [place] [address] [facility] Specialist Cardiology - General 07/25/22 07/25/22 Guerita Elliott PA-C [address] [address] [facility] Specialist Cardiothoracic Surgery 08/01/22 3 Matthew Rushing MD [address] [place] [address] [facility] Specialist Cardiology - General 08/01/22 08/01/22 Matthew Rushing MD [address] [place] [address] [facility] Specialist Cardiology - General 08/08/22 08/08/22 Guerita Elliott PA-C [address] [place] [address] [facility] Specialist Cardiothoracic Surgery 08/08/22 3 Matthew Rushing MD [address] [place] [address] [facility] Specialist Cardiology - General 08/15/22 08/15/22 Guerita Elliott PA-C [address] [place] [address] [facility] Specialist Cardiothoracic Surgery 08/15/22 3 Matthew Rushing MD [address] [place] [address] [facility] Specialist Cardiology - General 08/22/22 08/22/22 Guerita Elliott PA-C [address] [address] [facility] Specialist Cardiothoracic Surgery 08/22/22 08/22/22 Guerita Elliott PA-C [address] [address] [facility] Specialist Cardiothoracic Surgery 08/29/22 3 Matthew Rushing MD [address] [place] [address] [facility] Specialist Cardiology - General 08/29/22 08/29/22 Guerita Elliott PA-C [address] [address] [facility] Specialist Cardiothoracic Surgery 09/05/22 3 Matthew Rushing MD [address] [place] [address] [facility] Specialist Cardiology - General 09/05/22 09/05/22 Guerita Elliott PA-C [address] [place] [address] [facility] Specialist Cardiothoracic Surgery 09/12/22 3 Matthew Rushing MD [address] [place] [address] [facility] Specialist Cardiology - General 09/12/22 09/12/22 Guerita Elliott PA-C [address] [address] [facility] Specialist Cardiothoracic Surgery 09/19/22 09/19/22 Matthew Rushing MD [address] [place] [address] [facility] Specialist Cardiology - General 09/19/22 09/19/22 Matthew Rushing MD [address] [place] [address] [facility] [facility] - General 09/26/22 09/26/22 Guerita Elliott PA-C [address] [address] [facility] Specialist Cardiothoracic Surgery 09/26/22 09/26/22 Matthew Rushing MD [address] [place] [address] 61852 [facility] Specialist Cardiology - General 10/03/22 10/03/22 Guerita Elliott PA-C [address] [address] [facility] Specialist Cardiothoracic Surgery 10/03/22 3 Guerita Elliott PA-C [address] [address] [facility] Specialist Cardiothoracic Surgery 10/10/22 3 Matthew Rushing MD [address] [place] [address] 81774 [facility] Specialist Cardiology - General 10/10/22 10/10/22 Matthew Rushing MD [address] [place] [address] 26304 [facility] Specialist Cardiology - General 10/17/22 10/17/22 Guerita Elliott PA-C [address] [address] [facility] Specialist Cardiothoracic Surgery 10/17/22 3 Guerita Elliott PA-C [address] [address] [facility] Specialist Cardiothoracic Surgery 10/24/22 10/24/22 Matthew Rushing MD [address] [place] [address] 54040 [facility] Specialist Cardiology - General 10/24/22 10/24/22 Matthew Rushing MD [address] [place] [address] 77783 [facility] Specialist Cardiology - General 10/31/22 10/31/22 Guerita Elliott PA-C [address] [address] [facility] Specialist Cardiothoracic Surgery 10/31/22 3 Guerita Elliott PA-C [address] [address] [facility] Specialist Cardiothoracic Surgery 11/07/22 3 Matthew Rushing MD [address] [place] [address] 78546 [facility] Specialist Cardiology - General 11/07/22 11/07/22 Matthew Rushing MD [address] [place] [address] 76954 [facility] Specialist Cardiology - General 11/14/22 11/14/22 Guerita Elliott PA-C [address] [address] [facility] Specialist Cardiothoracic Surgery 11/14/22 3 Guerita Elliott PA-C [address] 6[address] [facility] Specialist Cardiothoracic Surgery 11/21/22 11/21/22 Matthew Rushing MD [address] [place] [address] 18055 [facility] Specialist Cardiology - General 11/21/22 11/21/22 Matthew Rushing MD [address] [place] [address] 07864 [facility] Specialist Cardiology - General 11/28/22 11/28/22 Guerita Elliott PA-C [address] 25934 [facility] Specialist Cardiothoracic Surgery 11/28/22 3 Guerita Elliott PA-C [address] 8[address]28 [facility] Specialist Cardiothoracic Surgery 12/05/22 3 Matthew Rushing MD [address] [place] [address] 48222 [facility] Specialist Cardiology - General 12/05/22 12/05/22 Guerita Elliott PA-C [address] [address] [facility] Specialist Cardiothoracic Surgery 12/12/22 3 Matthew Rushing MD [address] [place] [address] 19990 [facility] Specialist Cardiology - General 12/12/22 12/12/22 Matthew Rushing MD [address] [place] [address] 15959 [facility] Specialist Cardiology - General 12/19/22 12/19/22 Guerita Elliott PA-C [address] [place] [address] 36406 [facility] Specialist Cardiothoracic Surgery 12/19/22 12/19/22 Guerita Elliott PA-C [address] [place] [address] 65692 [facility] Specialist Cardiothoracic Surgery 12/26/22 12/26/22 Matthew Rushing MD [address] [place] [address] 36002 [facility] Specialist Cardiology - General 12/26/22 12/26/22 Matthew Rushing MD [address] [place] [address] 17091 [facility] Specialist Cardiology - General 01/02/23 01/02/23 Guerita Elliott PA-C [address] [address] [facility] Specialist Cardiothoracic Surgery 01/02/23 3 Guerita Elliott PA-C [address] [address] [facility] Specialist Cardiothoracic Surgery 01/09/23 3 Matthew Rushing MD [address] [place] [address] 45860 [facility] Specialist Cardiology - General 01/09/23 01/09/23 Matthew Rushing MD [address] [place] [address] 03590 [facility] Specialist Cardiology - General 01/16/23 01/16/23 Guerita Elliott PA-C [address] [address] [facility] Specialist Cardiothoracic Surgery 01/16/23 3 Matthew Rushing MD [address] [place] [address] 00072 [facility] Specialist Cardiology - General 01/23/23 01/23/23 Guerita Elliott PA-C [address] [address] [facility] Specialist Cardiothoracic Surgery 01/23/23 01/23/23 Matthew Rushing MD [address] [place] [address] 45489 [facility] Specialist Cardiology - General 01/30/23 01/30/23 Guerita Elliott PA-C [address] 15[address] [facility] Specialist Cardiothoracic Surgery 01/30/23 3 Guerita Elliott PA-C [address] [address] [facility] Specialist Cardiothoracic Surgery 02/06/23 3 Matthew Rushing MD [address] [place] [address] 56132 [facility] Specialist Cardiology - General 02/06/23 02/06/23 Matthew Rushing MD [address] [place] [address] 25505 [facility] Specialist Cardiology - General 02/13/23 02/13/23 Guerita Elliott PA-C [address] [address]248 [facility] Specialist Cardiothoracic Surgery 02/13/23 3 Guerita Elliott PA-C [address] 26558 [facility] Specialist Cardiothoracic Surgery 02/20/23 02/20/23 Matthew Rushing MD [address] [place] [address] 65125 [facility] Specialist Cardiology - General 02/20/23 02/20/23 Matthew Rushing MD [address] [place] [address] 87754 [facility] Specialist Cardiology - General 02/27/23 02/27/23 Guerita Elliott PA-C [address] [address] [facility] Specialist Cardiothoracic Surgery 02/27/23 3 Matthew Rushing MD [address] [place] [address] 89025 [facility] Specialist Cardiology - General 03/06/23 03/06/23 Guerita Elliott PA-C [address] [address] [facility] Specialist Cardiothoracic Surgery 03/06/23 3 Matthew Rushing MD [address] [place] [address] 53793 [facility] Specialist Cardiology - General 03/13/23 03/13/23 Guerita Elliott PA-C [address] 8[address] [facility] Specialist Cardiothoracic Surgery 03/13/23 3 Guerita Elliott PA-C [address] [address] [facility] Specialist Cardiothoracic Surgery 03/20/23 3 Matthew Rushing MD [address] [place] [address] 43807 [facility] Specialist Cardiology - General 03/20/23 03/20/23 Matthew Rushing MD [address] [place] [address] 95878 [facility] Specialist Cardiology - General 03/27/23 03/27/23 Guerita Elliott PA-C [address] [address] [facility] Specialist Cardiothoracic Surgery 03/27/23 3 Guerita Elliott PA-C [address] [address] [facility] Specialist Cardiothoracic Surgery 04/03/23 Matthew Rushing MD [address] [place] [address] 00595 [facility] Specialist Cardiology - General 04/03/23 04/03/23 Guerita Elliott PA-C [address] [address] [facility] Specialist Cardiothoracic Surgery 04/10/23 Matthew Rushing MD [address] [place] [address] 86164 [facility] Specialist Cardiology - General 04/10/23 04/10/23 Mtathew Rushing MD [address] [place] [address] 95873 [facility] Specialist Cardiology - General 04/17/23 04/17/23 Guerita Elliott PA-C [address] [address] [facility] Specialist Cardiothoracic Surgery 04/17/23 Matthew Rushing MD [address] [place] [address] 30247 [facility] Specialist Cardiology - General 04/24/23 04/24/23 Guerita Elliott PA-C [address] [place] [address] 43512 [facility] Specialist Cardiothoracic Surgery 04/24/23 3 Matthew Rushing MD [address] [place] [address] 02451 [facility] Specialist Cardiology - General 05/01/23 05/01/23 Guerita Elliott PA-C [address] [place] [address] 57067 [facility] Specialist Cardiothoracic Surgery 05/01/23 Guerita Elliott PA-C [address] [place] [address] 47564 [facility] Specialist Cardiothoracic Surgery 05/08/23 Matthew Rushing MD [address] [place] [address] 84250 [facility] Specialist Cardiology - General 05/08/23 05/08/23 Matthew Rushing MD [address] [place] [address] 89784 [facility] Specialist Cardiology - General 05/15/23 05/15/23 Guerita Elliott PA-C [address] [place] [address] 41819 [facility] Specialist Cardiothoracic Surgery 05/15/23 Matthew Rushing MD [address] [place] [address] 51114 [facility] Specialist Cardiology - General 05/22/23 05/22/23 Guerita Elliott PA-C [address] [place] [address] 97226 [facility] Specialist Cardiothoracic Surgery 05/22/23 3 Matthew Rushing MD [address] [place] [address] 54781 [facility] Specialist Cardiology - General 05/29/23 05/29/23 Guerita Elliott PA-C [address] [place] [address] 24516 [facility] Specialist Cardiothoracic Surgery 05/29/23 Guerita Elliott PA-C [address] [address] [facility] Specialist Cardiothoracic Surgery 06/05/23 Matthew Rushing MD [address] [place] [address] 34847 [facility] Specialist Cardiology - General 06/05/23 06/05/23 Guerita Elliott PA-C [address] [address] [facility] Specialist Cardiothoracic Surgery 06/12/23 Matthew Rushing MD [address] [place] [address] 6[address]16 [facility] Specialist Cardiology - General 06/12/23 06/12/23 Guerita Elliott PA-C [address] [place] [address] 56669 [facility] Specialist Cardiothoracic Surgery 06/19/23 Matthew Rushing MD [address] [place] [address] 92932 [facility] Specialist Cardiology - General 06/19/23 06/19/23 Guerita Elliott PA-C [address] [place] [address] 72453 [facility] Specialist Cardiothoracic Surgery 06/26/23 06/26/23 Matthew Rushing MD [address] [place] [address] 00235 [facility] Specialist Cardiology - General 06/26/23 06/26/23 Guerita Elliott PA-C [address] [place] [address] 40790 [facility] Specialist Cardiothoracic Surgery 07/03/23 4 Matthew Rushing MD [address] [place] [address] 04803 [facility] Specialist Cardiology - General 07/03/23 07/03/23 Guerita Elliott PA-C [address] [address] [facility] Specialist Cardiothoracic Surgery 07/10/23 4 Matthew Rushing MD [address] [place] [address] 62352 [facility] Specialist Cardiology - General 07/10/23 07/10/23 Matthew Rushing MD [address] [place] [address] 03991 [facility] Specialist Cardiology - General 07/17/23 07/17/23 Guerita Elliott PA-C [address] [address] [facility] Specialist Cardiothoracic Surgery 07/17/23 4 Matthew Rushing MD [address] [place] [address] 49584 [facility] Specialist Cardiology - General 07/24/23 07/24/23 Guerita Elliott PA-C [address] 99351 [facility] Specialist Cardiothoracic Surgery 07/24/23 07/24/23 Matthew Rushing MD [address] [place] [address] 88351 [facility] Specialist Cardiology - General 07/31/23 07/31/23 Guerita Elliott PA-C [address] [address]471 [facility] Specialist Cardiothoracic Surgery 07/31/23 4 Guerita Elliott PA-C [address] 8[address]94 [facility] Specialist Cardiothoracic Surgery 08/07/23 4 Matthew Rushing MD [address] [place] [address] 25492 [facility] Specialist Cardiology - General 08/07/23 08/07/23 Guerita Elliott PA-C [address] [address] [facility] Specialist Cardiothoracic Surgery 08/14/23 4 Matthew Rushing MD [address] [place] [address] 41048 [facility] Specialist Cardiology - General 08/14/23 08/14/23 Matthew Rushing MD [address] [place] [address] 48458 [facility] Specialist Cardiology - General 08/21/23 08/21/23 Guerita Elliott PA-C [address] [address] [facility] Specialist Cardiothoracic Surgery 08/21/23 08/21/23 Matthew Rushing MD [address] [place] [address] 81042 [facility] Specialist Cardiology - General 08/28/23 08/28/23 Guerita Elliott PA-C [address] [address] [facility] Specialist Cardiothoracic Surgery 08/28/23 4 Guerita Elliott PA-C [address] [address] [facility] Specialist Cardiothoracic Surgery 09/04/23 4 Matthew Rushing MD [address] [place] [address] 93949 [facility] Specialist Cardiology - General 09/04/23 09/04/23 Matthew Rushing MD [address] [place] [address] 27913 [facility] Specialist Cardiology - General 09/11/23 09/11/23 Guerita Elliott PA-C [address] [address]357 [facility] Specialist Cardiothoracic Surgery 09/11/23 4 Matthew Rushing MD [address] [place] [address] 89279 [facility] Specialist Cardiology - General 09/18/23 09/18/23 Guerita Elliott PA-C [address] [address]991 [facility] Specialist Cardiothoracic Surgery 09/18/23 4 Matthew Rushing MD [address] [place] [address] 44923 [facility] Specialist Cardiology - General 09/25/23 09/25/23 Guerita Elliott PA-C [address] [address] [facility] Specialist Cardiothoracic Surgery 09/25/23 09/25/23 Matthew Rushing MD [address] [place] [address] 27202 [facility] Specialist Cardiology - General 10/02/23 10/02/23 Guerita Elliott PA-C [address] [address] [facility] Specialist Cardiothoracic Surgery 10/02/23 4 Guerita Elliott PA-C [address] 50101 [facility] Specialist Cardiothoracic Surgery 10/09/23 4 Matthew Rushing MD [address] [place] [address] 44013 [facility] Specialist Cardiology - General 10/09/23 10/09/23 Matthew Rushing MD [address] [place] [address] 40277 [facility] Specialist Cardiology - General 10/16/23 10/16/23 Guerita Elliott PA-C [address] [address]382 [facility] Specialist Cardiothoracic Surgery 10/16/23 4 Matthew Rushing MD [address] [place] [address] 73425 [facility] Specialist Cardiology - General 10/23/23 10/23/23 Guerita Elliott PA-C [address] 17244 [facility] Specialist Cardiothoracic Surgery 10/23/23 10/23/23 Matthew Rushing MD [address] [place] [address] 41984 [facility] Specialist Cardiology - General 10/30/23 10/30/23 Guerita Elliott PA-C [address] 20809 [facility] Specialist Cardiothoracic Surgery 10/30/23 4 Guerita Elliott PA-C [address] 52061 [facility] Specialist Cardiothoracic Surgery 11/06/23 4 Matthew Rushing MD [address] [place] [address] 38951 [facility] Specialist Cardiology - General 11/06/23 11/06/23 Matthew Rushing MD [address] [place] [address] 28963 [facility] Specialist Cardiology - General 11/13/23 11/13/23 Guerita Elliott PA-C [address] 29308 [facility] Specialist Cardiothoracic Surgery 11/13/23 4 Guerita Elliott PA-C [address] 43285 [facility] Specialist Cardiothoracic Surgery 11/20/23 11/20/23 Matthew Rushing MD [address] [place] [address] 73941 [facility] Specialist Cardiology - General 11/20/23 11/20/23 Guerita Elliott PA-C [address] [place] [address] 09173 [facility] Specialist Cardiothoracic Surgery 11/27/23 11/27/23 Matthew Rushing MD [address] [place] [address] 46236 [facility] Specialist Cardiology - General 11/27/23 11/27/23 Guerita Elliott PA-C [address] [place] [address] 53442 [facility] Specialist Cardiothoracic Surgery 12/04/23 4 Matthew Rushing MD [address] [place] [address] 68281 [facility] Specialist Cardiology - General 12/04/23 12/04/23 Matthew Rushing MD [address] [place] [address] 17188 [facility] Specialist Cardiology - General 12/11/23 12/11/23 Guerita Elliott PA-C [address] [place] [address] [facility] Specialist Cardiothoracic Surgery 12/11/23 4 Guerita Elliott PA-C [address] [address]160 [facility] Specialist Cardiothoracic Surgery 12/18/23 4 Matthew Rushing MD [address] [place] [address] 93706 [facility] Specialist Cardiology - General 12/18/23 12/18/23 Guerita Elliott PA-C [address] [address]389 [facility] Specialist Cardiothoracic Surgery 12/25/23 12/25/23 Matthew Rushing MD [address] [place] [address] 74996 [facility] Specialist Cardiology - General 12/25/23 12/25/23 Guerita Elliott PA-C [address] [address] [facility] Specialist Cardiothoracic Surgery 01/01/24 4 Matthew Rushing MD [address] [place] [address] 46337 [facility] Specialist Cardiology - General 01/01/24 01/01/24 Guerita Elliott PA-C [address] [address] [facility] Specialist Cardiothoracic Surgery 01/08/24 4 Matthew Rushing MD [address] [place] [address] 57737 [facility] Specialist Cardiology - General 01/08/24 01/08/24 Guerita Elliott PA-C [address] 6[address] [facility] Specialist Cardiothoracic Surgery 01/15/24 4 Matthew Rushing MD [address] [place] [address] 35710 [facility] Specialist Cardiology - General 01/15/24 01/15/24 Matthew Rushing MD [address] [place] [address] 96005 [facility] Specialist Cardiology - General 01/22/24 01/22/24 Guerita Elliott PA-C [address] 20145 [facility] Specialist Cardiothoracic Surgery 01/22/24 01/22/24 Guerita Elliott PA-C [address] [place] [address] [facility] Specialist Cardiothoracic Surgery 01/29/24 4 Matthew Rushing MD [address] [place] [address] 77320 [facility] Specialist Cardiology - General 01/29/24 01/29/24 Matthew Rushing MD [address] [place] [address] 56530 [facility] Specialist Cardiology - General 02/05/24 02/05/24 Guerita Elliott PA-C [address] 8[address]56 [facility] Specialist Cardiothoracic Surgery 02/05/24 4 Matthew Rushing MD [address] [place] [address] 64617 [facility] Specialist Cardiology - General 02/12/24 02/12/24 Guerita Elliott PA-C [address] 98902 [facility] Specialist Cardiothoracic Surgery 02/12/24 4 Guerita Elliott PA-C [address] [address]236 [facility] Specialist Cardiothoracic Surgery 02/19/24 02/19/24 Matthew Rushing MD [address] [place] [address] 09552 [facility] Specialist Cardiology - General 02/19/24 02/19/24 Matthew Rushing MD [address] [place] [address] 08604 [facility] Specialist Cardiology - General 02/26/24 02/26/24 Guerita Elliott PA-C [address] 65003 [facility] Specialist Cardiothoracic Surgery 02/26/24 02/26/24 Guerita Elliott PA-C [address] [address]604 [facility] Specialist Cardiothoracic Surgery 03/04/24 4 Matthew Rushing MD [address] [place] [address] 72138 [facility] Specialist Cardiology - General 03/04/24 03/04/24 Guerita Elliott PA-C [address] 8[address]98 [facility] Specialist Cardiothoracic Surgery 03/11/24 4 Matthew Rushing MD [address] [place] [address] 90110 [facility] Specialist Cardiology - General 03/11/24 03/11/24 Matthew Rushing MD [address] [place] [address] 66770 [facility] Specialist Cardiology - General 03/18/24 03/18/24 Guerita Elliott PA-C [address] [place] [address] [facility] Specialist Cardiothoracic Surgery 03/18/24 Matthew Rushing MD [address] [place] [address] 88492 [facility] Specialist Cardiology - General 03/25/24 03/25/24 Guerita Elliott PA-C [address] [place] [address] [facility] Specialist Cardiothoracic Surgery 03/25/24 Matthew Rushing MD [address] [place] [address] 26744 [facility] Specialist Cardiology - General 04/01/24 04/01/24 Guerita Elliott PA-C [address] [address]11 [facility] Specialist Cardiothoracic Surgery 04/01/24 Guerita Elliott PA-C [address] [place] [address] [facility] Specialist Cardiothoracic Surgery 04/08/24 Matthew Rushing MD [address] [place] [address] 74589 [facility] Specialist Cardiology - General 04/08/24 04/08/24 Guerita Elliott PA-C [address] [place] [address] [facility] Specialist Cardiothoracic Surgery 04/15/24 Matthew Rushing MD [address] [place] [address] 87285 [facility] Specialist Cardiology - General 04/15/24 04/15/24 Guerita Elliott PA-C [address] 9[address]49 [facility] Specialist Cardiothoracic Surgery 04/22/24 4 Matthwe Rushing MD [address] [place] [address] 88899 [facility] Specialist Cardiology - General 04/22/24 04/22/24 Matthew Rushing MD [address] [place] [address] 36212 [facility] Specialist Cardiology - General 04/29/24 04/29/24 Guerita Elliott PA-C [address] [place] [address] 37532 [facility] Specialist Cardiothoracic Surgery 04/29/24 Matthew Rushing MD [address] [place] [address] 92474 [facility] Specialist Cardiology - General 05/06/24 05/06/24 Guerita Elliott PA-C [address] [place] [address] 63627 [facility] Specialist Cardiothoracic Surgery 05/06/24 Matthew Rushing MD [address] [place] [address] 00484 [facility] Specialist Cardiology - General 05/13/24 05/13/24 Guerita Elliott PA-C [address] 7[address]99 [facility] Specialist Cardiothoracic Surgery 05/13/24 Guerita Elliott PA-C [address] 23409 [facility] Specialist Cardiothoracic Surgery 05/20/24 4 Matthew Rushing MD [address] [place] [address] 91536 [facility] Specialist Cardiology - General 05/20/24 05/20/24 Guerita Elliott PA-C [address] [place] [address] 35036 [facility] Specialist Cardiothoracic Surgery 05/27/24 4 Matthew Rushing MD [address] [place] [address] 71243 [facility] Specialist Cardiology - General 05/27/24 05/27/24 Guerita Elliott PA-C [address] 20214 [facility] Specialist Cardiothoracic Surgery 06/03/24 Matthew Rushing MD [address] [place] [address] 12233 [facility] Specialist Cardiology - General 06/03/24 06/03/24 Guerita Elliott PA-C [address] 81614 [facility] Specialist Cardiothoracic Surgery 06/10/24 Matthew Rushing MD [address] [place] [address] 92382 [facility] Specialist Cardiology - General 06/10/24 06/10/24 Guerita Elliott PA-C [address] 95256 [facility] Specialist Cardiothoracic Surgery 06/17/24 Matthew Rushing MD [address] [place] [address] 42978 [facility] Specialist Cardiology - General 06/17/24 06/17/24 documented as of this encounter
--- OUTSIDE RECORDS SUMMARY | 2024-06-24 04:37 | XMS_ITS | Encounter Summary ---
Author Organization [facility] alth Address [address] [facility] [place] [address] Care Team Providers Care Php Software Engineer Name Role Phone Kilo Wang MD Unavailable [phone] Juan Haddad MD Unavailable [phone] Dasha Sheppard PA-C Primary Care Provider Trey Jennings MD Unavailable [phone] Guerita Elliott-C Unavailable +[phone] Matthew Rushing MD Unavailable +[phone] Matthew Rushing MD Unavailable +[phone] Matthew Rushing MD Unavailable +[phone] Matthew Rushing MD Unavailable +[phone] Matthew Rushing MD Unavailable +[phone] Matthew Rushing MD Unavailable +[phone] Matthew Rushing MD Unavailable +[phone] Matthew Rushing MD Unavailable +[phone] Matthew Rushing MD Unavailable +[phone] Matthew Rushing MD Unavailable Matthew Rsuhing MD Unavailable +[phone] Matthew Rushing MD Unavailable +[phone] Matthew Rushing MD Unavailable +[phone] Matthew Rushing MD Unavailable +[phone] Trey Jennings MD Unavailable +4 -5 Guerita Elliott PA-C Unavailable +4 -5 Matthew Rushing MD Unavailable +[phone] Guerita Elliott J PA-C Unavailable +4 -5 Matthew Rushing MD Unavailable +[phone] Matthew Rushing MD Unavailable +[phone] Guerita Elliott PA-C Unavailable +4 -5 Guerita Elliott PA-C Unavailable +[phone] Matthew Rushing MD Unavailable +[phone] Guerita Elliott PA-C Unavailable +4 -5 Matthew Rushing MD Unavailable +[phone] Matthew Rushing MD Unavailable +[phone] Guerita Elliott PA-C Unavailable +4 -5 Matthew Rushing MD Unavailable +[phone] Guerita Elliott PA-C Unavailable +4 -[phone] Matthew Rushing MD Unavailable +[phone] Guerita Elliott PA-C Unavailable +4 -4995 Guerita Elliott PA-C Unavailable +[phone] Matthew Rushing MD Unavailable +[phone] Guerita Elliott PA-C Unavailable +4 -4995 Matthew Rushing MD Unavailable +[phone] Guerita Elliott PA-C Unavailable +[phone] Matthew Rushing MD Unavailable +[phone] [place], Guerita J PA-C Unavailable +4 -5 Matthew Rushing MD Unavailable Matthew Rushing MD Unavailable Guerita Elliott PA-C Unavailable +4 [phone] Matthew Rushing MD Unavailable +[phone] Guerita Elliott J PA-C Unavailable +4 -4995 Guerita Elliott J PA-C Unavailable +4 -4995 Matthew Rushing MD Unavailable +[phone] Matthew Rushign MD Unavailable +[phone] Guerita Elliott J PA-C Unavailable +4 -4995 Guerita Elliott Kim PA-C Unavailable +[phone] Matthew Rushing MD Unavailable +[phone] Matthew Rushing MD Unavailable +[phone] Guerita Elliott Kim PA-C Unavailable +[phone] Guerita Elliott Kim PA-C Unavailable +4 -4995 Matthew Rushing MD Unavailable +[phone] Matthew Rushing MD Unavailable +[phone] Guerita Elliott Kim PA-C Unavailable +4 -[phone] [place] pinoher Alvarez PA-C Unavailable +[phone] Matthew Rushing MD Unavailable +[phone] Matthew Rushing MD Unavailable +[phone] Guerita Elliott J PA-C Unavailable +4 -[phone] EarlLilliGuerita J PA-C Unavailable +[phone] Matthew Rushing MD Unavailable +[phone] Guerita Elliott Kim PA-C Unavailable +[phone] Matthew Rushing MD Unavailable +[phone] Matthew Rushing MD Unavailable +[phone] Earl Guerita J PA-C Unavailable +4 -5 Lilli Elliotther J PA-C Unavailable +4 -4995 Matthew Rushing MD Unavailable +[phone] Matthew Rushing MD Unavailable +[phone] Earl Guerita J PA-C Unavailable +4 -4995 Earl Guerita J PA-C Unavailable +4 -4995 Matthew Rushing MD Unavailable +[phone] Matthew Rushing MD Unavailable +[phone] Guerita Elliott PA-C Unavailable +4 -5 Matthew Rushing MD Unavailable +[phone] EarlGuerita J PA-C Unavailable +4 -4995 Matthew Rushing MD Unavailable +[phone] EarlGuerita pino J PA-C Unavailable +4 -4995 Guerita Elliott J PA-C Unavailable +4 -4995 Matthew Rushing MD Unavailable +[phone] Matthew Rushing MD Unavailable +[phone] Guerita Elliott J PA-C Unavailable +4 -4995 EarlGuerita pino J PA-C Unavailable +[phone] Matthew Rushing MD Unavailable +[phone] Matthew Rushing MD Unavailable +[phone] Lilli Elliotther J PA-C Unavailable +[phone] -[phone] Matthew Rushnig MD Unavailable +[phone] Guerita Elliott PA-C Unavailable +4 -4995 Matthew Rushing MD Unavailable +[phone] Lilli Elliotther Alvarez PA-C Unavailable +4 -5 Earl Gureita J PA-C Unavailable +4 -5 Matthew Rushing MD Unavailable +[phone] Matthew Rushing MD Unavailable +[phone] Earl Guerita J PA-C Unavailable +4 -[phone] Earl Guerita J PA-C Unavailable +[phone] Matthew Rushing MD Unavailable +[phone] Earl Guerita Alvarez PA-C Unavailable +4 -5 Matthew Rushing MD Unavailable +[phone] aMtthew Rushing MD Unavailable +[phone] Earl Guerita Alvarez PA-C Unavailable +4 -5 Matthew Rushing MD Unavailable +[phone] Earl Guerita Alvarez PA-C Unavailable +[phone] Matthew Rushing MD Unavailable +[phone] Guerita Elliott PA-C Unavailable +4 -4995 Guerita Elliott PA-C Unavailable +544 [phone] Matthew Rushing MD Unavailable +[phone] Matthew Rushing MD Unavailable +[phone] Guerita Elliott PA-C Unavailable +544 [phone] Matthew Rushing MD Unavailable +[phone] Guerita Elliott PA-C Unavailable +4 -4995 Matthew Rushing MD Unavailable +[phone] Guerita Elliott PA-C Unavailable +544 [phone] Guerita Elliott PA-C Unavailable +544 -[phone] Matthew Rushing MD Unavailable +[phone] Guerita Elliott-C Unavailable +4 -4995 Matthew Rushing MD Unavailable Guerita Elliott PA-C Unavailable +4 -4995 Matthew Rushing MD Unavailable +[phone] Guerita Elliott PA-C Unavailable +4 -4995 Matthew Rushing MD Unavailable Guerita Elliott-C Unavailable +[phone] Matthew Rushing MD Unavailable +[phone] Guerita Elliott PA-C Unavailable +454 [phone] Matthew Rushing MD Unavailable +[phone] Txfr Provider [facility], Temporary Primary Care Provider Matthew Rushing MD Unavailable +[phone] Guerita Elliott-C Unavailable +[phone] Mathtew Rushing MD Unavailable +[phone] Guerita Elliott PA-C Unavailable +4 -4995 Matthew Rushing MD Unavailable +[phone] Guerita Elliott-C Unavailable +4 -4995 Guerita Elliott PA-C Unavailable +[phone] Matthew Rushing MD Unavailable +[phone] Guerita Elliott-C Unavailable +164 [phone] Matthew Rushing MD Unavailable +[phone] Matthew Rushing MD Unavailable +[phone] Guerita Elliott-C Unavailable +[phone] Matthew Rushing MD Unavailable +[phone] Guerita Elliott PA-C Unavailable +4 -5 Guerita Elliott Kim PA-C Unavailable +4 -499 Matthew Rushing MD Unavailable +[phone] Matthew Rushing MD Unavailable +[phone] Guerita Elliott Kim PA-C Unavailable +4 -4995 Matthew Rushing MD Unavailable +[phone] Guerita Elliott PA-C Unavailable +14 [phone] Matthew Rushing MD Unavailable +[phone] Guerita Elliott PA-C Unavailable +4 -4995 Matthew Rushing MD Unavailable +[phone] Guerita Elliott PA-C Unavailable +4 -4995 Guerita Elliott J PA-C Unavailable +4 -4995 Matthew Rushing MD Unavailable +[phone] Matthew Rushing MD Unavailable +[phone] Guerita Elliott Kim PA-C Unavailable +4 -4995 Matthew Rushing MD Unavailable +[phone] Guerita Elliott Kim PA-C Unavailable +4 -4995 Matthew Rushing MD Unavailable +[phone] Guerita Elliott PA-C Unavailable +4 -4995 Guerita Elliott Kim PA-C Unavailable +[phone] Matthew Rushing MD Unavailable +[phone] Matthew Rushing MD Unavailable +[phone] Guerita Elliott J PA-C Unavailable +4 -4995 EarlGuerita Kim PA-C Unavailable +4 -4995 Matthew Rushing MD Unavailable +[phone] Guerita Elliott PA-C Unavailable +4 -4995 Matthew Rushing MD Unavailable +[phone] Guerita Elliott PA-C Unavailable +4 -4995 Matthew Rushing MD Unavailable +[phone] Matthew Rushing MD Unavailable +[phone] Guerita Elliott PA-C Unavailable +[phone] Matthew Del Toro MD Primary Care Provider +[phone] Guerita Elliott PA-C Unavailable +[phone] Matthew Rushing MD Unavailable +[phone] Guerita Elliott PA-C Unavailable +[phone] Matthew Rushing MD Unavailable +[phone] Guerita Elliott PA-C Unavailable +[phone] Matthew Rushing MD Unavailable +[phone] Guerita Elliott PA-C Unavailable +[phone] Matthew Rushing MD Unavailable +[phone] Guerita Elliott PA-C Unavailable +004 [phone] Matthew Rushing MD Unavailable +[phone] Matthew Rushing MD Unavailable +[phone] Guerita Elliott PA-C Unavailable +[phone] Guerita Elliott PA-C Unavailable +174 [phone] Matthew Rushing MD Unavailable +[phone] Matthew Rushing MD Unavailable +[phone] Guerita Elliott PA-C Unavailable +4 -4995 Matthew Rushing MD Unavailable +[phone] Guerita Elliott PA-C Unavailable +[phone] Guerita Elliott PA-C Unavailable Matthew Rushing MD Unavailable +[phone] Matthew Rushing MD Unavailable +[phone] Guerita Elliott PA-C Unavailable Guerita Elliott PA-C Unavailable Matthew Rushing MD Unavailable +[phone] Guerita Elliott PA-C Unavailable +[phone] Matthew Rushing MD Unavailable Matthew Rushing MD Unavailable +[phone] Guerita Elliott PA-C Unavailable Matthew Rushing MD Unavailable +[phone] Guerita Elliott PA-C Unavailable [phone] Reason for Visit * Reason Comments Refill Request Encounter Details Date Type Department Care Team (Late st Contact Info) Description 12/28/2019 Refill Family [facility] Line [address] [facility], [address] [place] [address] Dasha Sheppard PA-C [address] [place] [address] [place] [phone] Refill Request Social History Tobacco Use Types [...] Telephone Encounter - Margret Dunn RN - 12/28/2019 11:00 AM EDT Filled 12/18 with 1 refill documented in this encounter Plan of Treatment [...] documented as of this encounter Care Teams Php Software Engineer Relationship Specialty Start Date End Date Dasha Sheppard PA-C [address] [address] PCP - General Family Practice 04/12/18 07/10/23 Txfr Provider Family Medicine [place], [facility] [address] [facility] [address] [place] [id number] PCP - General Family Practice 07/11/23 12/11/23 Matthew Del Toro MD [address] [facility] [address] [place] [id number] PCP - General Family Practice 12/12/23 Kilo Wang MD Consulting Physician Neurology 08/30/16 12/01/21 Juan Haddad MD [address] [address] Otolaryngology 09/23/17 Trey Jennings MD [address] [address] Consulting Physician Cardiothoracic Surgery 07/13/21 Guerita Elliott PA-C [address] [place] [address] [address] [place] [address] [facility] Specialist Cardiothoracic Surgery 01/03/22 06/27/22 Matthew Rushing MD [address] [place] [address] [facility] Specialist Cardiology - General 03/07/22 03/28/22 Matthew Rushing MD [address] [place] [address] [facility] Specialist Cardiology - General 04/04/22 04/04/22 Matthew Rushing MD [address] [place] [address] [facility] Specialist Cardiology - General 04/11/22 04/11/22 Matthew Rushing MD [address] [place] [address] [facility] Specialist Cardiology - General 04/18/22 04/18/22 Matthew Rushing MD [address] [place] [address] [facility] Specialist Cardiology - General 04/25/22 04/25/22 Matthew Rushing MD [address] [place] [address] [facility] Specialist Cardiology - General 05/02/22 05/02/22 Matthew Rushing MD [address] [place] [address] [facility] Specialist Cardiology - General 05/09/22 05/09/22 Matthew Rushing MD [address] [place] [address] [facility] Specialist Cardiology - General 05/16/22 05/16/22 Matthew Rushing MD [address] [place] [address] [facility] Specialist Cardiology - General 05/23/22 05/23/22 Matthew Rushing MD [address] [place] [address] [facility] Specialist Cardiology - General 05/30/22 05/30/22 Matthew Rushing MD [address] [place] [address] [facility] Specialist Cardiology - General 06/06/22 06/06/22 Matthew Rushing MD [address] [place] [address] 418[address] [facility] Specialist Cardiology - General 06/13/22 06/13/22 Matthew Rushing MD [address] [place] [address] [facility] Specialist Cardiology - General 06/20/22 06/20/22 Matthew Rushing MD [address] [place] [address] [facility] Specialist Cardiology - General 06/27/22 06/27/22 Trey Jennings MD [address] [address] [facility] Specialist Cardiothoracic Surgery 06/27/22 Guerita Elliott PA-C [address] [address] [facility] Specialist Cardiothoracic Surgery 07/04/22 3 Matthew Rushing MD [address] [place] [address] [facility] Specialist Cardiology - General 07/04/22 07/04/22 Guerita Elliott PA-C [address] [place] [address] [facility] Specialist Cardiothoracic Surgery 07/11/22 3 Matthew Rushing MD [address] [place] [address] [facility] Specialist Cardiology - General 07/11/22 07/11/22 Matthew Rushing MD [address] [place] [address] [facility] Specialist Cardiology - General 07/18/22 07/18/22 Guerita Elliott PA-C [address] [address] [facility] Specialist Cardiothoracic Surgery 07/18/22 3 Guerita Elliott PA-C [address] [place] [address] [facility] Specialist Cardiothoracic Surgery 07/25/22 07/25/22 Matthew Rushing MD [address] [place] [address] [facility] Specialist Cardiology - General 07/25/22 07/25/22 Guerita Elliott PA-C [address] [address] [facility] Specialist Cardiothoracic Surgery 08/01/22 3 Matthew Rushing MD [address] [place] [address] [facility] Specialist Cardiology - General 08/01/22 08/01/22 Matthew Rushing MD [address] [place] [address] [facility] Specialist Cardiology - General 08/08/22 08/08/22 Guerita Elliott PA-C [address] [address] [facility] Specialist Cardiothoracic Surgery 08/08/22 3 Matthew Rushing MD [address] [place] [address] [facility] Specialist Cardiology - General 08/15/22 08/15/22 Guerita Elliott PA-C [address] [address] [facility] Specialist Cardiothoracic Surgery 08/15/22 3 Matthew Rushing MD [address] [place] [address] [facility] Specialist Cardiology - General 08/22/22 08/22/22 Guerita Elliott PA-C [address] [address] [facility] Specialist Cardiothoracic Surgery 08/22/22 08/22/22 Guerita Elliott PA-C [address] [address] [facility] Specialist Cardiothoracic Surgery 08/29/22 3 Matthew Rushing MD [address] [place] [address] [facility] Specialist Cardiology - General 08/29/22 08/29/22 Guerita Elliott PA-C [address] [address] [facility] Specialist Cardiothoracic Surgery 09/05/22 3 Matthew Rushing MD [address] [place] [address] [facility] Specialist Cardiology - General 09/05/22 09/05/22 Guerita Elliott PA-C [address] [address] [facility] Specialist Cardiothoracic Surgery 09/12/22 3 Matthew Rushing MD [address] [place] [address] [facility] Specialist Cardiology - General 09/12/22 09/12/22 Guerita Elliott PA-C [address] [address] [facility] Specialist Cardiothoracic Surgery 09/19/22 09/19/22 Matthew Rushing MD [address] [place] [address] [facility] Specialist Cardiology - General 09/19/22 09/19/22 Matthew Rushing MD [address] [place] [address] [facility] Specialist Cardiology - General 09/26/22 09/26/22 Guerita Elliott PA-C [address] [place] [address] [facility] Specialist Cardiothoracic Surgery 09/26/22 09/26/22 Matthew Rushing MD [address] [place] [address] [facility] Specialist Cardiology - General 10/03/22 10/03/22 Guerita Elliott PA-C [address] [address] [facility] Specialist Cardiothoracic Surgery 10/03/22 Guerita Elliott PA-C [address] [address] [facility] Specialist Cardiothoracic Surgery 10/10/22 3 Matthew Rushing MD [address] [place] [address] [facility] Specialist Cardiology - General 10/10/22 10/10/22 Matthew Rushing MD [address] [place] [address] [facility] Specialist Cardiology - General 10/17/22 10/17/22 Guerita Elliott PA-C [address] [address] [facility] Specialist Cardiothoracic Surgery 10/17/22 3 Guerita Elliott PA-C [address] [address] [facility] Specialist Cardiothoracic Surgery 10/24/22 10/24/22 Matthew Rushing MD [address] [place] [address] [facility] Specialist Cardiology - General 10/24/22 10/24/22 Matthew Rushing MD [address] [place] [address] [facility] Specialist Cardiology - General 10/31/22 10/31/22 Guerita Elliott PA-C [address] [address] [facility] Specialist Cardiothoracic Surgery 10/31/22 3 Geurita Elliott PA-C [address] [address] [facility] Specialist Cardiothoracic Surgery 11/07/22 3 Matthew Rushing MD [address] [place] [address] [facility] Specialist Cardiology - General 11/07/22 11/07/22 Matthew Rushing MD [address] [place] [address] [facility] Specialist Cardiology - General 11/14/22 11/14/22 Guerita Elliott PA-C [address] [address] [facility] Specialist Cardiothoracic Surgery 11/14/22 3 Guerita Elliott PA-C [address] [address] [facility] Specialist Cardiothoracic Surgery 11/21/22 11/21/22 Matthew Rushing MD [address] [place] [address] [facility] Specialist Cardiology - General 11/21/22 11/21/22 Matthew Rushing MD [address] [place] [address] [facility] Specialist Cardiology - General 11/28/22 11/28/22 Guerita Elliott PA-C [address] [address] [facility] Specialist Cardiothoracic Surgery 11/28/22 3 Guerita Elliott PA-C [address] [address] [facility] Specialist Cardiothoracic Surgery 12/05/22 3 Matthew Rushing MD [address] [place] [address] [facility] Specialist Cardiology - General 12/05/22 12/05/22 Guerita Elliott PA-C [address] [address] [facility] Specialist Cardiothoracic Surgery 12/12/22 3 Matthew Rushing MD [address] [place] [address] [facility] Specialist Cardiology - General 12/12/22 12/12/22 Matthew Rushing MD [address] [place] [address] [facility] Specialist Cardiology - General 12/19/22 12/19/22 Guerita Elliott PA-C [address] [address] [facility] Specialist Cardiothoracic Surgery 12/19/22 12/19/22 Guerita Elliott PA-C [address] [address] [facility] Specialist Cardiothoracic Surgery 12/26/22 12/26/22 Matthew Rushing MD [address] [place] [address] [facility] Specialist Cardiology - General 12/26/22 12/26/22 Matthew Rushing MD [address] [place] [address] [facility] Specialist Cardiology - General 01/02/23 01/02/23 Guerita Elliott PA-C [address] [address] [facility] Specialist Cardiothoracic Surgery 01/02/23 3 Guerita Elliott PA-C [address] [address] [facility] Specialist Cardiothoracic Surgery 01/09/23 3 Matthew Rushing MD [address] [place] [address] [facility] Specialist Cardiology - General 01/09/23 01/09/23 Matthew Rushing MD [address] [place] [address] [facility] Specialist Cardiology - General 01/16/23 01/16/23 Guerita Elliott PA-C [address] [address] [facility] Specialist Cardiothoracic Surgery 01/16/23 3 Matthew Rushing MD [address] [place] [address] [facility] Specialist Cardiology - General 01/23/23 01/23/23 Guerita Elliott PA-C [address] [address] [facility] Specialist Cardiothoracic Surgery 01/23/23 01/23/23 Matthew Rushing MD [address] [place] [address] [facility] Specialist Cardiology - General 01/30/23 01/30/23 Guerita Elliott PA-C [address] [address] [facility] Specialist Cardiothoracic Surgery 01/30/23 3 Guerita Elliott PA-C [address] [address] [facility] Specialist Cardiothoracic Surgery 02/06/23 3 Matthew Rushing MD [address] [place] [address] [facility] Specialist Cardiology - General 02/06/23 02/06/23 Matthew Rushing MD [address] [place] [address] [facility] Specialist Cardiology - General 02/13/23 02/13/23 Guerita Elliott PA-C [address] [address] [facility] Specialist Cardiothoracic Surgery 02/13/23 3 Guerita Elliott PA-C [address] [address] [facility] Specialist Cardiothoracic Surgery 02/20/23 02/20/23 Matthew Rushing MD [address] [place] [address] [facility] Specialist Cardiology - General 02/20/23 02/20/23 Matthew Rushing MD [address] [place] [address] [facility] Specialist Cardiology - General 02/27/23 02/27/23 Guerita Elliott PA-C [address] [address] [facility] Specialist Cardiothoracic Surgery 02/27/23 Matthew Rushing MD [address] [place] [address] [facility] Specialist Cardiology - General 03/06/23 03/06/23 Guerita Elliott PA-C [address] [address] [facility] Specialist Cardiothoracic Surgery 03/06/23 3 Matthew Rushing MD [address] [place] [address] [facility] Specialist Cardiology - General 03/13/23 03/13/23 Guerita Elliott PA-C [address] [address] [facility] Specialist Cardiothoracic Surgery 03/13/23 3 Guerita Elliott PA-C [address] [address] [facility] Specialist Cardiothoracic Surgery 03/20/23 3 Matthew Rushing MD [address] [place] [address] [facility] Specialist Cardiology - General 03/20/23 03/20/23 Matthew Rushing MD [address] [place] [address] [facility] Specialist Cardiology - General 03/27/23 03/27/23 Guerita Elliott PA-C [address] [address] [facility] Specialist Cardiothoracic Surgery 03/27/23 3 Guerita Elliott PA-C [address] [address] [facility] Specialist Cardiothoracic Surgery 04/03/23 Matthew Rushing MD [address] [place] [address] [facility] Specialist Cardiology - General 04/03/23 04/03/23 Guerita Elliott PA-C [address] [address] [facility] Specialist Cardiothoracic Surgery 04/10/23 Matthew Rushing MD [address] [place] [address] [facility] Specialist Cardiology - General 04/10/23 04/10/23 Matthew Rushing MD [address] [place] [address] 13919 [facility] Specialist Cardiology - General 04/17/23 04/17/23 Guerita Elliott PA-C [address] [address] [facility] Specialist Cardiothoracic Surgery 04/17/23 Matthew Rushing MD [address] [place] [address] 301[address] [facility] Specialist Cardiology - General 04/24/23 04/24/23 Guerita Elliott PA-C [address] [address] [facility] Specialist Cardiothoracic Surgery 04/24/23 3 Matthew Rushing MD [address] [place] [address] [facility] Specialist Cardiology - General 05/01/23 05/01/23 Guerita Elliott PA-C [address] [address] [facility] Specialist Cardiothoracic Surgery 05/01/23 Guerita Elliott PA-C [address] [address] [facility] Specialist Cardiothoracic Surgery 05/08/23 Matthew Rushing MD [address] [place] [address] [facility] Specialist Cardiology - General 05/08/23 05/08/23 Matthew Rushing MD [address] [place] [address] 42903 [facility] Specialist Cardiology - General 05/15/23 05/15/23 Guerita Elliott PA-C [address] [place] [address] [facility] Specialist Cardiothoracic Surgery 05/15/23 Matthew Rushing MD [address] [place] [address] 223[address] [facility] Specialist Cardiology - General 05/22/23 05/22/23 Guerita Elliott PA-C [address] [place] [address] 27286 [facility] Specialist Cardiothoracic Surgery 05/22/23 3 Matthew Rushing MD [address] [place] [address] [facility] Specialist Cardiology - General 05/29/23 05/29/23 Guerita Elliott PA-C [address] [place] [address] [facility] Specialist Cardiothoracic Surgery 05/29/23 Guerita Elliott PA-C [address] [address] [facility] Specialist Cardiothoracic Surgery 06/05/23 Matthew Rushing MD [address] [place] [address] [facility] Specialist Cardiology - General 06/05/23 06/05/23 Guerita Elliott PA-C [address] [address] [facility] Specialist Cardiothoracic Surgery 06/12/23 Matthew Rushing MD [address] [place] [address] [facility] Specialist Cardiology - General 06/12/23 06/12/23 Guerita Elliott PA-C [address] [address] [facility] Specialist Cardiothoracic Surgery 06/19/23 Matthew Rushing MD [address] [place] [address] [facility] Specialist Cardiology - General 06/19/23 06/19/23 Guerita Elliott PA-C [address] [address] [facility] Specialist Cardiothoracic Surgery 06/26/23 06/26/23 Matthew Rushing MD [address] [place] [address] [facility] Specialist Cardiology - General 06/26/23 06/26/23 Guerita Elliott PA-C [address] [address] [facility] Specialist Cardiothoracic Surgery 07/03/23 4 Matthew Rushing MD [address] [place] [address] [facility] Specialist Cardiology - General 07/03/23 07/03/23 Guerita Elliott PA-C [address] [address] [facility] Specialist Cardiothoracic Surgery 07/10/23 4 Matthew Rushing MD [address] [place] [address] [facility] Specialist Cardiology - General 07/10/23 07/10/23 Matthew Rushing MD [address] [place] [address] [facility] Specialist Cardiology - General 07/17/23 07/17/23 Guerita Elliott PA-C [address] [address] [facility] Specialist Cardiothoracic Surgery 07/17/23 4 Matthew Rushing MD [address] [place] [address] [facility] Specialist Cardiology - General 07/24/23 07/24/23 Guerita Elliott PA-C [address] [place] [address] [facility] Specialist Cardiothoracic Surgery 07/24/23 07/24/23 Matthew Rushing MD [address] [place] [address] [facility] Specialist Cardiology - General 07/31/23 07/31/23 Guerita Elliott PA-C [address] [place] [address] [facility] Specialist Cardiothoracic Surgery 07/31/23 4 Guerita Elliott PA-C [address] [address] [facility] Specialist Cardiothoracic Surgery 08/07/23 4 Matthew Rushing MD [address] [place] [address] [facility] Specialist Cardiology - General 08/07/23 08/07/23 Guerita Elliott PA-C [address] [address] [facility] Specialist Cardiothoracic Surgery 08/14/23 4 Matthew Rushing MD [address] [place] [address] [facility] Specialist Cardiology - General 08/14/23 08/14/23 Matthew Rushing MD [address] [place] [address] [facility] Specialist Cardiology - General 08/21/23 08/21/23 Guerita Elliott PA-C [address] [address] [facility] Specialist Cardiothoracic Surgery 08/21/23 08/21/23 Matthew Rushing MD [address] [place] [address] [facility] Specialist Cardiology - General 08/28/23 08/28/23 Guerita Elliott PA-C [address] [place] [address] [facility] Specialist Cardiothoracic Surgery 08/28/23 4 Guerita Elliott PA-C [address] [place] [address] [facility] Specialist Cardiothoracic Surgery 09/04/23 4 Matthew Rushing MD [address] [place] [address] 115[address] [facility] Specialist Cardiology - General 09/04/23 09/04/23 Matthew Rushing MD [address] [place] [address] [facility] Specialist Cardiology - General 09/11/23 09/11/23 Guerita Elliott PA-C [address] [place] [address] [facility] Specialist Cardiothoracic Surgery 09/11/23 4 Matthew Rushing MD [address] [place] [address] 978[address] [facility] Specialist Cardiology - General 09/18/23 09/18/23 Guerita Elliott PA-C [address] [address] [facility] Specialist Cardiothoracic Surgery 09/18/23 4 Matthew Rushing MD [address] [place] [address] [facility] Specialist Cardiology - General 09/25/23 09/25/23 Guerita Elliott PA-C [address] [address] [facility] Specialist Cardiothoracic Surgery 09/25/23 09/25/23 Matthew Rushing MD [address] [place] [address] [facility] Specialist Cardiology - General 10/02/23 10/02/23 Guerita Elliott PA-C [address] [address] [facility] Specialist Cardiothoracic Surgery 10/02/23 4 Guerita Elliott PA-C [address] [address] [facility] Specialist Cardiothoracic Surgery 10/09/23 4 Matthew Rushing MD [address] [place] [address] [facility] Specialist Cardiology - General 10/09/23 10/09/23 Matthew Rushing MD [address] [place] [address] [facility] Specialist Cardiology - General 10/16/23 10/16/23 Guerita Elliott PA-C [address] [place] [address] 28964 [facility] Specialist Cardiothoracic Surgery 10/16/23 4 Matthew Rushing MD [address] [place] [address] 75[address] [facility] Specialist Cardiology - General 10/23/23 10/23/23 Guerita Elliott PA-C [address] [place] [address] [facility] Specialist Cardiothoracic Surgery 10/23/23 10/23/23 Matthew Rushing MD [address] [place] [address] [facility] Specialist Cardiology - General 10/30/23 10/30/23 Guerita Elliott PA-C [address] [place] [address] [facility] Specialist Cardiothoracic Surgery 10/30/23 4 Guerita Elliott PA-C [address] [place] [address] [facility] Specialist Cardiothoracic Surgery 11/06/23 4 Matthew Rushing MD [address] [place] [address] [facility] Specialist Cardiology - General 11/06/23 11/06/23 Matthew Rushing MD [address] [place] [address] [facility] Specialist Cardiology - General 11/13/23 11/13/23 Guerita Elliott PA-C [address] [address] [facility] Specialist Cardiothoracic Surgery 11/13/23 4 Guerita Elliott PA-C [address] [address] [facility] Specialist Cardiothoracic Surgery 11/20/23 11/20/23 Matthew Rushing MD [address] [place] [address] [facility] Specialist Cardiology - General 11/20/23 11/20/23 Guerita Elliott PA-C [address] [address] [facility] Specialist Cardiothoracic Surgery 11/27/23 11/27/23 Matthew Rushing MD [address] [place] [address] [facility] Specialist Cardiology - General 11/27/23 11/27/23 Guerita Elliott PA-C [address] [address] [facility] Specialist Cardiothoracic Surgery 12/04/23 4 Matthew Rushing MD [address] [place] [address] [facility] Specialist Cardiology - General 12/04/23 12/04/23 Matthew Rushing MD [address] [place] [address] 03214 [facility] Specialist Cardiology - General 12/11/23 12/11/23 Guerita Elliott PA-C [address] [address] [facility] Specialist Cardiothoracic Surgery 12/11/23 4 Guerita Elliott PA-C [address] [place] [address] 09784 [facility] Specialist Cardiothoracic Surgery 12/18/23 4 Matthew Rushing MD [address] [place] [address] [facility] Specialist Cardiology - General 12/18/23 12/18/23 Guerita Elliott PA-C [address] [place] [address] 88470 [facility] Specialist Cardiothoracic Surgery 12/25/23 12/25/23 Matthew Rushing MD [address] [place] [address] [facility] Specialist Cardiology - General 12/25/23 12/25/23 Guerita Elliott PA-C [address] [address] [facility] Specialist Cardiothoracic Surgery 01/01/24 4 Matthew Rushing MD [address] [place] [address]175 [facility] Specialist Cardiology - General 01/01/24 01/01/24 Guerita Elliott PA-C [address] [address] [facility] Specialist Cardiothoracic Surgery 01/08/24 4 Matthew Rushing MD [address] [place] [address] 922[address] [facility] Specialist Cardiology - General 01/08/24 01/08/24 Guerita Elliott PA-C [address] [place] [address] 24[address] [facility] Specialist Cardiothoracic Surgery 01/15/24 4 Matthew Rushing MD [address] [place] [address] 75866 [facility] Specialist Cardiology - General 01/15/24 01/15/24 Matthew Rushing MD [address] [place] [address] 79[address] [facility] Specialist Cardiology - General 01/22/24 01/22/24 Guerita Elliott PA-C [address] [address] [facility] Specialist Cardiothoracic Surgery 01/22/24 01/22/24 Guerita Elliott PA-C [address] [address] [facility] Specialist Cardiothoracic Surgery 01/29/24 4 Matthew Rushing MD [address] [place] [address] 29161 [facility] Specialist Cardiology - General 01/29/24 01/29/24 Matthew Rushing MD [address] [place] [address] 86894 [facility] Specialist Cardiology - General 02/05/24 02/05/24 Guerita Elliott PA-C [address] [address] [facility] Specialist Cardiothoracic Surgery 02/05/24 4 Matthew Rushing MD [address] [place] [address] 22644 [facility] Specialist Cardiology - General 02/12/24 02/12/24 Guerita Elliott PA-C [address] [address] [facility] Specialist Cardiothoracic Surgery 02/12/24 4 Guerita Elliott PA-C [address] [address] [facility] Specialist Cardiothoracic Surgery 02/19/24 02/19/24 Matthew Rushing MD [address] [place] [address] [facility] Specialist Cardiology - General 02/19/24 02/19/24 Matthew Rushing MD [address] [place] [address] 42651 [facility] Specialist Cardiology - General 02/26/24 02/26/24 Guerita Elliott PA-C [address] [address] [facility] Specialist Cardiothoracic Surgery 02/26/24 02/26/24 Guerita Elliott PA-C [address] [address] [facility] Specialist Cardiothoracic Surgery 03/04/24 4 Matthew Rushing MD [address] [place] [address] 22766 [facility] Specialist Cardiology - General 03/04/24 03/04/24 Guerita Elliott PA-C [address] [address] [facility] Specialist Cardiothoracic Surgery 03/11/24 4 Matthew Rushing MD [address] [place] [address] 69965 [facility] Specialist Cardiology - General 03/11/24 03/11/24 Matthew Rushing MD [address] [place] [address] 25680 [facility] Specialist Cardiology - General 03/18/24 03/18/24 Guerita Elliott PA-C [address] [address] [facility] Specialist Cardiothoracic Surgery 03/18/24 4 Matthew Rushing MD [address] [place] [address] 11849 [facility] Specialist Cardiology - General 03/25/24 03/25/24 Guerita Elliott PA-C [address] [address] [facility] Specialist Cardiothoracic Surgery 03/25/24 4 documented as of this encounter
--- OUTSIDE RECORDS SUMMARY | 2024-06-24 04:37 | XMS_ITS | Encounter Summary ---
Author Organization [facility] alth Address [address] [address] Care Team Providers Care Plumbing Designer Name Role Phone Kilo Wang MD Unavailable [phone] Juan Haddad MD Unavailable [phone] Dasha Sheppard PA-C Primary Care Provider Reason for Referral * Test/Procedure/Other (Routine) - Closed Specialty Diagnoses / Procedures Referred By Contac t Referred To Contact Diagnoses Personal history of colonic polyps Family history of malignant neoplasm of gastrointestinal tract Procedures COLONOSCOPY, SCREENING Delfino Becerril MD [address] [facility] [place] [address] Phone: tel: fax: Referral ID Status Reason Start Date Expiration Date Visits Re quested Visits Authorized [id number] Closed 06/07/2019 06/06/2020 1 1 Reason for Visit * Reason Onset Date Comments Procedure 06/07/2019 Encounter Details Date Type Department Care Team ([facility] Contact Info) Description 06/07/[address] [facility] [address] [email or web address] [facility] [place] [address] Delfino Becerril MD [address] [facility] [place] [address] Procedure Social History Tobacco Use Types Packs/Day [...] encounter Miscellaneous Notes * Telephone Encounter - Neena Serrano LPN - 06/07/2019 4:45 PM EST Return telephone call to patient to set up colonoscopy. Patient screened and cleared for screening colonoscopy on 06/26/[address] Becerril Prep instructions discussed with patient verbalizing understanding. Prep instructions to be picked up at the medical front desk specialist. 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 PCP notified. * Telephone Encounter - Mindi Franklin - 06/07/2019 4:08 PM EST Pt would like to schedule CP documented in this encounter Plan of Treatment Not on file documented as of this encounter Goals Goal Patient Goal Type Associated Problems Recent Progress Patient-Stated? Author Blood Pressure < 140/90 Blood Pressure 160/96( 024 8:13 AM EDT) No Kilo Wang MD documented as of this encounter Results * COLONOSCOPY, SCREENING (06/26/2019 8:45 AM EST) PROCEDURE Procedure Name: Colonoscopy [facility] INDICATIONS Indications: Surveillance: Personal history of adenomatous polyps on [facility] INDICATIONS last colonoscopy 3 years ago [facility] PERFORMING PROVIDER Providers: Delfino Becerril (Doctor), Matthew Tidwell (Anesthesia [facility] PERFORMING PROVIDER Staff) [facility] MEDICATION Medicines: Monitored Anesthesia Care [facility] COMPLICATION Complications: No immediate complications. [facility] WSCOPETIME Scope Withdrawal Time 0 hours 12 minutes 23 seconds [facility] 06/26/2019 8:45 AM EST Narrative [facility] C[facility]IOLOG[facility] - 06/26/2019 9:17 AM EST Impression: ? - Moderate diverticulosis in the sigmoid colon, [...] a ?cold biopsy forceps. Resected and retrieved. Recommendation: ? - Patient has a contact number available for ?emergencies. The signs and symptoms of potential ?delayed complications were discussed with the patient. ?Return to normal activities tomorrow. Written discharge ?instructions were provided to the patient. ?- High fiber diet. ?- Continue present medications. ?- Await pathology results. ?- Repeat colonoscopy in 3 years for surveillance based ?on pathology results. ?- Return to primary care physician as previously ?scheduled. Procedure: ?Pre-Anesthesia Assessment: ?- Sedation was administered by an anesthesia ?professional. Deep sedation was attained. ?- Prior to the procedure, a History and Physical was ?performed, and patient medications and allergies were ?reviewed. The patient's tolerance of previous ?anesthesia was also reviewed. The risks and benefits of ?the procedure and the sedation options and risks were ?discussed with the patient. All questions were ?answered, and informed consent was obtained. Prior ?Anticoagulants: The patient has taken no previous ?anticoagulant or antiplatelet agents. ASA Grade ?Assessment: II - A patient with mild systemic disease. ?After reviewing the risks and benefits, the patient was ?deemed in satisfactory condition to undergo the ?procedure. ?- Patient identification and proposed procedure were ?verified prior to the procedure by the physician, the ?paper gluing operator and the technician support association. The procedure was ?verified in the procedure room. ?After I obtained informed consent, the scope was passed ?under direct vision. Throughout the procedure, the ?patient's blood pressure, pulse, and oxygen saturations ?were monitored continuously. The Colonoscope was ?introduced through the anus and advanced to the cecum, ?identified by appendiceal orifice and ileocecal valve. ?The colonoscopy was performed without difficulty. The ?patient tolerated the procedure well. The quality of ?the bowel preparation was adequate. The ileocecal ?valve, appendiceal orifice, and rectum were ?photographed. Findings: ? The perianal and digital rectal examinations were normal. ? Many small and large-mouthed diverticula were found in the sigmoid ? colon, descending colon and transverse colon. There was evidence of an ? impacted diverticulum. ? Two sessile polyps were found in the sigmoid colon and ascending colon. ? The polyps were 6 to 12 mm in size. These polyps were removed with a ? cold snare. Resection and retrieval were complete. ? A 1 mm polyp was found in the ascending colon. The polyp was flat. The ? polyp was removed with a cold biopsy forceps. Resection and retrieval ? were complete. Note Initiated On: 06/26/2019 8:45 AM us Delfino Becerril MD GI PROCEDURE ORDERABLES Fin al Result [facility] [address] [place] [address] documented in this encounter Visit Diagnoses Diagnosis Personal history of colonic polyps- Primary Family history of malignant neoplasm of gastrointestinal tract Personal history of colonic polyps Family history of malignant neoplasm of gastrointestinal tract documented in this encounter Care Teams Plumbing Designer Relationship Specialty Start Date End Date Dasha Sheppard PA-C [address] [address] PCP - General Family Practice 04/12/18 07/10/23 Kilo Wang MD Consulting Physician Neurology 08/30/16 12/01/21 Juan Haddad MD [address] [address] Otolaryngology 09/23/17 documented as of this encounter
--- OUTSIDE RECORDS SUMMARY | 2024-06-24 04:37 | XMS_ITS | Encounter Summary ---
Author Organization [facility] alth Address [address] [place] [address] Care Team Providers Care Forest Manager Name Role Phone Kilo Wang MD Unavailable [phone] Juan Haddad MD Unavailable [phone] Dasha Sheppard PA-C Primary Care Provider Reason for Visit * Reason Comments Preop Exam * New Consult/Second Opinion (Within 2 Weeks) - Closed Specialty Diagnoses / Procedures Referred By Contac t Referred To Contact Cardiothoracic Surgery Diagnoses Thoracic aortic aneurysm without rupture (CMS/HCC) Matthew Rushing MD [address] [place] [address] Phone: tel: fax: Cardiothoracic Surgery [address] [address] Phone: tel: fax: Referral ID Status Reason Start Date Expiration Date V isits Requested Visits Authorized [id number] Closed Co-managemen t Until Stable 03/25/2020 03/25/2021 1 1 Encounter Details Date Type Department Care Team ([facility] st Contact Info) Description 04/02/2020 10:30 AM EDT Office Visit Cardiothoracic Surgery [address] [address] Trey Jennings MD [address] [address] Thoracic aortic aneurysm without rupture (CMS/HCC) (Primary [...] Sign Reading Time Taken Comments Blood Pressure 140/80 04/02/2020 10:41 AM EDT Pulse 96 04/02/2020 10:41 AM EDT Temperature - - Respiratory Rate - - Oxygen Saturation - - Inhaled Oxygen Concentration - - Weight - - Height - - Body Mass Index - - documented in this encounter Progress Notes * Trey Jennings MD - 04/09/2020 11:19 AM EDT Images from the original note were not included. I had the pleasure of seeing Mr. Robert Alexis Jr. in the Cardiothoracic Surgery office at [facility] for evaluation of his thoracic aortic aneurysm. As you know, he is a pleasant 55y.o. with a history of lyme disease, hypertension, hyperlipidemia, and adrenal adenoma. He does notnote any significant familial aneurysm history. He is an active user of chewing tobacco. Mr. Reuben De La Cruz's TTE and CTA chest has been personally reviewed. The aortic valve morphology is trileaflet with no appreciable stenosis and no appreciable regurgitation. Maximal aortic root dimension (sinus to sinus chord) is 49mm (my measurement, 50.2mm radiology measurement). There is no appreciable effacement of the sinotubular junction. Maximal ascending aortic dimension is 33mm. There is no evidence of dissection or rupture. The aortic arch and descending aortic appear normal branching. Based on these findings, the aneurysm appears well below current thresholds for intervention, particularly when considering indexed size. Interval follow-up is recommended in 6 months with repeat MRI/MRA. Surgical triggers would include: - Aneurysm growth rate greater than 3-5mm/year [...] maintain systolic blood pressure less than 130mmHg. Please feel free to contact our office with any additional questions or concerns. Trey Stone M.D. Cardiovascular Surgery, [facility] Clinical Staining Machine Operator of Cardiac Surgery [facility] E-mail: [email or web address] documented in this encounter H&P Notes * Ofelia Cruz PA-C - 03/27/2020 9:59 AM EDT Name: Robert Alexis JrNikolas : 1965 MR#: [id number] Date: 03/27/2020 Robert Alexis JrNikolas is a 54 y.o. male with a past medical history of hypertension, hyperlipidemia, asthma, Lyme's disease, and adenoma of the left adrenal gland, uses chewing tobacco, and has no significant family history. He is known to Dr. Rushing who has been following him for hypertension and known thoracic aortic aneurysm. Of not he was having mild chest pain in [address] Rushing sent him for stress echo which was low risk for ischemic disease. On routine follow up of CTA chest the aneurysm showed growth at the level of the sinuses Dr. Rushing is referring the patient to our services for surveillance/management. CTA chest 12/18/19 showed the following measurements: Annulus: 30.3 x 24.4 mm with an average diameter 27.2 mm. Sinus of Valsalva: 50.2 x 45.2 [...] mm with an average diameter 23.4 mm. Aortic size index of 2.17 Transthoracic echocardiogram 11/22/19 showed an EF of 60-65%, no RWMA, no MS/MR, functionally tricuspid AV, no /AI, and no TR. No significant carotid disease on CUS in 2019. Pt has had no invasive coronary evaluation, he had a stress echocardiogram in 2019 which showed lowprobability for stress induced myocardial ischemia. Patient recently placed on Prednisone taper for sciatica/sacroiliac joint inflammation by his PCP. Today, he has not complaints. History: Past Medical History: Diagnosis Date ??? Adenoma of left adrenal gland ??? Asthma ??? Lyme disease Family History Problem Relation Age of Onset ??? Cancer Mother 67 colon Social History Socioeconomic History ??? Marital status: Spouse name: Not on file ??? Number of children: Not on file ??? Years of education: Not on file ??? Highest education level: Not on file Occupational History ??? Not on file Social Needs ??? Financial resource strain: Not on file ??? Food insecurity Worry: Not on file Inability: Not on file ??? Transportation needs Medical: Not on file Non-medical: Not on file Tobacco Use ??? Smoking status: Never Smoker ??? Smokeless tobacco: Current User Types: Chew ??? Tobacco comment: chewing tobacco 2 cans/week Substance and Sexual Activity ??? Alcohol use: No ??? Drug use: No ??? Sexual activity: Not on file Lifestyle ??? Physical activity Days per week: Not on file Minutes per session: Not on file ??? Stress: Not on file Relationships ??? Social connections Talks on phone: Not on file Gets together: Not on file Attends restoration service: Not on file Active member of club or organization: Not on file Attends meetings of clubs or organizations: Not on file Relationship status: Not on file ??? Intimate partner violence Fear of current or ex partner: Not on file Emotionally abused: Not on file Physically abused: Not on file Forced sexual activity: Not on file Other Topics Concern ??? Not on file Social History Narrative ??? Not on file Past Surgical History: Procedure Laterality Date ??? ENDOSCOPY, ESOPHAGUS 04/22/2016 ??? HX CARPAL TUNNEL RELEASE Right 03/02/2018 Procedure: DECOMPRESSION NERVE MEDIAN CARPAL TUNNEL RELEASE: Carpal Tunnel Release; Surgeon: Devante Portillo DO; Location: [facility]; Laterality: Right; ??? HX CARPAL TUNNEL RELEASE Left 03/23/2018 Procedure: DECOMPRESSION NERVE MEDIAN CARPAL TUNNEL RELEASE: Carpal Tunnel Release; Surgeon: Devante Portillo DO; Location: [facility] OR; Laterality: Left; ??? HX COLONOSCOPY 04/22/2016 ??? HX CYST REMOVAL approx 2015 beneath eye-done at MD office w/ local anesthesia ??? HX DECOMPRESSION NERVE CUBITAL TUNNEL RELEASE Left 03/23/2018 Procedure: DECOMPRESSION NERVE CUBITAL TUNNEL RELEASE: Cubital Tunnel Release; Surgeon: Devante Portillo DO; Location: [facility]; Laterality: Left; Medications: Current Outpatient Medications Medication Sig Dispense Refill ??? amLODIPine (NORVASC) 5 MG tablet Take 1 tablet by mouth daily. 90 tablet 0 ??? atorvastatin (LIPITOR) 20 MG tablet Take 1 tablet by mouth daily. 90 tablet 3 ??? cyclobenzaprine (FLEXERIL) 10 MG tablet Take 1 tablet by mouth at bedtime. 30 tablet 0 ??? predniSONE (DELTASONE) 20 MG tablet Take 3 tablets daily x 3 days, 2 tablets daily x 3 days, 1 tablet daily x 4 days. 19 tablet 0 No current facility-administered medications for this visit. Allergies: Allergies Allergen Reactions ??? Zoloft [Sertraline] Indigestion/GI Upset ROS Physical Exam Assessment Diagnosis: 1. Thoracic aortic aneurysm without rupture (CMS/HCC) Orders/Review of Data: No orders of the defined types were placed in this encounter. Plan: Patient seen by Dr. Jennings and it was decided that we will monitor his aortic root aneurysmwith repeat MRA in 6 months. Robert Nitin Alexis Jr.'s TTE and CTA chest has been personally reviewed. The aortic valve morphology is trileaflet with no appreciable stenosis and no appreciable regurgitation. Maximal aortic root dimension (sinus to sinus chord) is 5.0mm. There is no appreciable effacement of the sinotubular junction. Maximal ascending aortic dimension is 3.4mm. There is no evidence of dissection or rupture. The aortic arch and descending aortic appear normal branching. Based on these findings, the aneurysm appears stable. Interval follow-up is recommended in 6 monthswith repeat MRI/MRA. Surgical triggers would include: - Aneurysm size greater than or equal to 5.5mm - Aneurysm growth rate greater than 5mm/year annualized - Aortic size index greater than 2.75 - Height/area ratio greater than 10 - Worsened aortic valve function - Dissection/rupture or other high risk features We have given the patient an educational sheet on thoracic aortic aneurysms and the recommended lifestyle changes. In summary, I have encouraged the patient to 1) avoid tobacco products, 2) avoid quinolone antibiotics, 3) avoid heavy (>40lb) exertional lifting, and 4) maintain systolic blood pressure less than 130mmHg. Attending Physician Signature: Dr. Jennings documented in this encounter Plan of Treatment [...] rupture documented in this encounter Care Teams Forest Manager Relationship Specialty Start Date End Date Dasha Sheppard PA-C [address] [address] PCP - General Family Practice 04/12/18 07/10/23 Kilo Wang MD Consulting Physician Neurology 08/30/16 12/01/21 Juan Haddad MD [address] [address] Otolaryngology 09/23/17 documented as of this encounter
--- OUTSIDE RECORDS SUMMARY | 2024-06-24 04:37 | XMS_ITS | Encounter Summary ---
Author Organization [facility] alth Address [address] [facility] [place] [address] Care Team Providers Care Sequins Spooler Name Role Phone Kilo Wang MD Unavailable [phone] Juan Haddad MD Unavailable Dasha Sheppard PA-C Primary Care Provider Reason for Visit * Reason Comments Recheck 03/27/19- anxiety- in creased zoloft 100mg- patient states same symptoms Flu Vaccine declined Encounter Details Date Type Department Care Team (Late st Contact Info) Description 05/08/2019 4:20 PM EST Office Visit [facility] [address] [facility], [address] [place] [id number] Dasha Sheppard, [place] [address] [place] [address] [place] [address] Essential hypertension (Primary Dx); Anxiety Discharge Disposition: Home/Self Care Social History Tobacco [...] Sign Reading Time Taken Comments Blood Pressure 122/78 05/08/2019 4:18 PM EST Pulse 80 05/08/2019 4:18 PM EST Temperature - - Respiratory Rate - - Oxygen Saturation - - Inhaled Oxygen Concentration - - Weight 106 kg (234 lb 3.2 oz) 05/08/2019 4:18 PM EST Height - - Body Mass Index 31.76 04/11/2019 5:15 PM EDT documented in this encounter Progress Notes * Matthew Del Toro MD - 05/20/2019 9:01 AM EST Note reviewed; agree with plan * Dasha Sheppard PA-C - 05/08/2019 4:16 PM EST Subjective Patient roomed and information gathered by Catherine Phillips LPN. Chart Review: Medication List reviewed / reconciled 05/08/2019 4:18 PM by CATHERINE PHILLIPS. Allergy List reviewed 05/08/2019 by CATHERINE PHILLIPS. Problem List reviewed 04/11/2019 by RACHEAL RO, NANCY Taveras. Immunization List reviewed 03/23/2018 6:18 AM by SARAHY HARVEY. Chart Sections reviewed by provider: Health Maintenance reviewed 05/08/2019 4:22 PM by Catherine Phillips LPN. Yes Barriers to care: Hard to pay for housing: No Hard to pay for utilities: No Hard to pay for medication: No Hard to pay for food: No Hard to pay for medical care: No Hard to get transportation: No Patient does not have a Living Will or Advance Directives Depression screening done. Little interest or pleasure in doing things: 0 Feeling down, depressed or hopeless: 0 Trouble falling or staying asleep, or sleeping too much: 1 Feeling tired or having little energy: 1 Poor appetite or overeatin Feeling bad about yourself, that you are a failure or have let people down: 0 Trouble concentrating on things, like newspaper or TV: 0 Moving and speaking unusually slowly, or being unusually fidgety and restless: 0 Thoughts that you would be better off or hurting yourself: 0 How difficult have these problems made it to do your normal activities or get along with people: Not Progress Note He is accompanied today by No one Medication compliance: Yes Robert Alexis Jr. is a 54 y.o. male who presents with chief complaint of Recheck (03/27/19- anxiety- increased zoloft 100mg- patient states same symptoms) and Flu Vaccine (declined) who is here todayfor an office visit. Here for medication check regarding anxiety and hypertension. Compliant with medications and tolerating well. Anxiety: states that he feels better and he is sleeping better. Feels that the increase in dose helped with his symptoms. Hypertension: has been monitoring his blood pressure at home, good readings. Would like to try cutting the Norvasc in half. Tick bites x 2 - states that he had an imbedded tick in his RIGHT side/ribs and LEFT posterior thigh. States that his successfully removed the tick on his posterior thigh but when she removed the one at the RIGHT ribs the head was still imbedded. Was evaluated at , tick head removed and prescribed doxycycline x 14 days. No further issues Back Pain - c/o LEFT low back pain, states that it is stiff at the time and it feels like it needs to crack. Denies any radiating pain down left lower extremity. Pain has been present since March, denies any injury or incident that may have contributed to his pain. Does not want any work-up, will return if symptoms worsen or change Did not return to Neurology for follow-up regarding occipital pain/neuralgia Still c/o intermittent tinnitus Reviewed HM in depth Routine blood work: up to date Colonoscopy: Due 04/2019. Needs to schedule, plans to call this week - h/o tubular adenoma Prostate/ZEHRA: due, not completed today Prostate/PSA: N/A Hep C ([id number]): N/A Immunizations: not interested in flu vaccine Reviewed PHQ9 score - negative The 10-year ASCVD risk score (Benniealexa GUARDADO Jr., et al., 2013) is: 5.7% Values used to calculate the score: Age: 54 years Sex: Male Is Non- : No Diabetic: No Tobacco smoker: No Systolic Blood Pressure: 122 mmHg Is BP treated: Yes HDL Cholesterol: 40 mg/dL Total Cholesterol: 202 mg/dL Review of Systems Psychiatric: Negative for depression. as above Active Problems: He has Essential hypertension; Asthma; Tubular adenoma of colon. 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 Current Medications: ??? amLODIPine (NORVASC) 5 MG tablet Take 1 tablet by mouth daily. ??? sertraline (ZOLOFT) 100 MG tablet Take 1 tablet by mouth daily. Allergies: He has No Known Allergies. Past Medical History: He has a past [...] in his mother. Future appointments already scheduled: No future appointments. Objective Vitals: 05/08/19 1618 BP: 122/78 Pulse: 80 Weight: 106 kg (234 lb 3.2 oz) Body mass index is 31.76 kg/m??. Physical Exam Nursing note and vitals reviewed. Eyes: Pupils are equal, round, and reactive to light. EOM are normal. Neck: Neck supple. No thyromegaly present. No carotid bruits Cardiovascular: Normal rate, regular rhythm and normal heart sounds. Pulmonary/Chest: Effort normal and breath sounds normal. No pedal edema Musculoskeletal: Normal range of motion. Back: +TTP of LEFT low paraspinal muscles, no midline tenderness. No active spasm. +TTP LEFT SI joint. Lymphadenopathy: He has no cervical adenopathy. Neurologic: He is alert and oriented to person, place, and time. Skin: Skin is warm and dry. +circular erythematous lesion with central scabbing of RIGHT rib and LEFT posterior thigh. No surrounding erythema or evidence of cellulitis. Psychiatric: He has a normal mood and affect. His behavior is normal. Judgment and thought content normal. Constitutional: He appears well-developed and well-nourished. Assessment and Plan 1. Essential hypertension 2. Anxiety Office visit for medication check Reviewed HM in depth Routine blood work: up to date Colonoscopy: Due 04/2019. Needs to schedule, plans to call this week - h/o tubular adenoma Prostate/ZEHRA: due, not completed today Prostate/PSA: N/A Hep C ([id number]): N/A Immunizations: not interested in flu vaccine Reviewed PHQ9 score - negative 1. Plan to try Norvasc 5 mg - 1/2 tablet daily Will monitor BP at home, follow-up via email with readings Discussed if blood pressure readings start to increase will resume one tablet daily. 2. Stable - continue current medication regimen, refills not needed today Return to office in 6 months for medication check, sooner if needed Robert verbalized understanding of above. documented in this encounter Plan of Treatment Not on file documented as of this encounter Goals Goal Patient Goal Type Associated Problems Recent Progress Patient-Stated? Author Blood Pressure < 140/90 Blood Pressure 160/96( 024 8:13 AM EDT) No Kilo Wang MD documented as of this encounter Visit Diagnoses Diagnosis Essential hypertension- Primary Unspecified essential hypertension Anxiety Anxiety state, unspecified documented in this encounter Care Teams Sequins Spooler Relationship Specialty Start Date End Date Dasha Sheppard PA-C [address] [address] PCP - General Family Practice 04/12/18 07/10/23 Kilo Wang MD Consulting Physician Neurology 08/30/16 12/01/21 Juan Haddad MD [address] [address] Otolaryngology 09/23/17 documented as of this encounter
--- OUTSIDE RECORDS SUMMARY | 2024-06-24 04:37 | XMS_ITS | Encounter Summary ---
Author Organization [facility] Address [address] [facility] [address] Care Team Providers Care Foreign Exchange Position Clerk Name Role Phone Kilo Wang MD Unavailable [phone] Juan Haddad MD Unavailable [phone] Dasha Sheppard PA-C Primary Care Provider Reason for Visit * Reason Comments Colonoscopy * Test/Procedure/Other (Routine) - Closed Specialty Diagnoses / Procedures Referred By Contac t Referred To Contact Diagnoses Personal history of colonic polyps Family history of malignant neoplasm of gastrointestinal tract Procedures COLONOSCOPY, SCREENING Delfino Becerril MD [address] [facility] [place] [address] Phone: tel: fax: Referral ID Status Reason Start Date Expiration Date Visits Re quested Visits Authorized [id number] Closed 06/07/2019 06/06/2020 1 1 Encounter Details Date Type Department Care Team (Late st Contact Info) Description 06/26/2019 8:30 AM EST Procedure visit [facility] [address] [facility] [address] [place] [address] Delfino Becerril MD [address] [facility] [place] [address] Personal history of colonic polyps; Family history of malignant neoplasm of gastrointestinal tract Discharge Disposition: Home/Self Care Social History Tobacco [...] Date/Time Associated Diagnosis Comments COLONOSCOPY, SCREENING Routine 06/26/2019 8:45 AM EST Personal history of colonic polyps Family history of malignant neoplasm of gastrointestinal tract documented in this encounter Results * COLONOSCOPY, SCREENING (06/26/2019 8:45 AM EST) PROCEDURE Procedure Name: Colonoscopy [place] [facility] INDICATIONS Indications: Surveillance: Personal history of adenomatous polyps on [facility] INDICATIONS last colonoscopy 3 years ago [place] [facility] PERFORMING PROVIDER Providers: Delfino Becerril (Doctor), Matthew Tidwell (Anesthesia [place] [facility] PERFORMING PROVIDER Staff) [place] [facility] MEDICATION Medicines: Monitored Anesthesia Care [place] [facility] COMPLICATION Complications: No immediate complications. [facility] WSCOPETIME Scope Withdrawal Time 0 hours 12 minutes 23 seconds [facility] 06/26/2019 8:45 AM EST Narrative [facility] - 06/26/2019 9:17 AM EST Impression: [...] to the procedure by the physician, the ?registered veterinary technician and the prosthetics technician. The procedure was ?verified in the procedure [...] MD GI PROCEDURE ORDERABLES Fin al Result [facility] [address] [place] [address] documented in this encounter Visit Diagnoses Diagnosis Personal history of colonic polyps Family history of malignant neoplasm of gastrointestinal tract documented in this encounter Care Teams Foreign Exchange Position Clerk Relationship Specialty Start Date End Date Dasha Sheppard PA-C [address] [address] PCP - General Family Practice 04/12/18 07/10/23 Kilo Wang MD Consulting Physician Neurology 08/30/16 12/01/21 Juan Haddad MD [address] [address] Otolaryngology 09/23/17 documented as of this encounter
--- OUTSIDE RECORDS SUMMARY | 2024-06-24 04:37 | XMS_ITS | Encounter Summary ---
Author Organization [facility] alth Address [address] [place] [address] Care Team Providers Care Surface Supervisor Name Role Phone Kilo Wang MD Unavailable [phone] Juan Haddad MD Unavailable Dasha Sheppard PA-C Primary Care Provider Reason for Visit * Reason Comments Anxiety patient would like t o talk about zoloft and seeing if changing it would be better for him. Hypertension Encounter Details Date Type Department Care Team (Late st Contact Info) Description 12/19/2019 5:00 PM EDT Office Visit [facility] [address], [address] [place] [id number] D[place]pp[place], [place] [address] [place] [address] [place] [id number] Anxiety (Primary Dx) Discharge Disposition: Home/Self Care Social History Tobacco Use Types Packs/Day Years Used Date Smoking Tobacco: Never Smokeless Tobacco: Current Chew Tobacco Cessation:Ready to Q uit: No; Counseling Given: Yes Comments:chewing tobacco 2 cans/week Alcohol Use Standard [...] Sign Reading Time Taken Comments Blood Pressure 130/80 12/19/2019 4:57 PM EDT Pulse 74 12/19/2019 4:57 PM EDT Temperature 37 ??C (98.6 ??F) 12/19/2019 4:57 PM EDT Respiratory Rate - - Oxygen Saturation - - Inhaled Oxygen Concentration - - Weight 108 kg (237 lb 12.8 oz) 12/19/2019 4:57 P M EDT Height - - Body Mass Index 32.25 04/11/2019 5:15 PM EDT documented in this encounter Progress Notes * Dasha Sheppard PA-C - 12/19/2019 4:56 PM EDT Subjective Patient roomed and information gathered by Markell Marquez CMA. Robert Alexis Jr. is a 54 y.o. male who presents with chief complaint of Anxiety (patient would like to talk about zoloft and seeing if changing it would be better for him. ) and Hypertension who ishere today for an office visit. Health Maintenance reviewed 12/19/2019 4:59 PM by Markell Marquez CMA. Yes Barriers to care: Hard to pay [...] today by No one Medication compliance: Yes Here to discuss anxiety and side effects of Zoloft. States that the first time he took Zoloft he had no issues and felt it worked well. Resumed Zoloft approximately one month ago and started to notice his heart pounding shortness of breath, upset stomach and thinks it is related to the medication. Advise him earlier in the week to stop the medication and he states that since he stopped taking the medication all of the above symptoms resolved. States that his anxiety is worse in the mornings and the evenings, during the day at work he is busy enough that he does not notice any anxiety. States that in the mornings when he is waiting to go to work his anxiety is off the charts ROS As above Future appointments already scheduled: Future Appointments Date Time Provider Department Center 12/19/2019 5:00 PM Dasha Sheppard PA-C [facility] Objective Vitals: 12/19/19 1657 BP: 130/80 BP Source: Right Arm Position: Sitting Cuff Size: Regular Pulse: 74 Temp: 98.6 ??F (37 ??C) Weight: 108 kg (237 lb 12.8 oz) TempSrc: Temporal Body mass index is 32.25 kg/m??. Physical Exam Nursing note and vitals reviewed. Eyes: Pupils are equal, round, and reactive to light. EOM are normal. Neck: Neck supple. No thyromegaly present. No carotid bruits Cardiovascular: Normal rate, regular rhythm and normal heart sounds. Pulmonary/Chest: Effort normal and breath sounds normal. No pedal edema Musculoskeletal: Normal range of motion. Lymphadenopathy: He has no cervical adenopathy. Neurologic: He is alert and oriented to person, place, and time. Skin: Skin is warm and dry. Psychiatric: He has a normal mood and affect. His behavior is normal. Judgment and thought content normal. Constitutional: He appears well-developed and well-nourished. Assessment and Plan 1. Anxiety - escitalopram (LEXAPRO) 10 MG tablet; Take 1 tablet by mouth daily. Dispense: 30 tablet; Refill: 1 Discontinued Zoloft Plan to try Lexapro 10 mg daily Return in 4-6 weeks for recheck, sooner if needed Robert verbalized understanding of above. Chart Review: Medication List reviewed / reconciled 12/19/2019 4:59 PM by MARKELL MARQUEZ. Allergy List reviewed 12/19/2019 by MARKELL MARQUEZ. Problem List reviewed 06/07/2019 by PETAR ZIMMER. Immunization List reviewed 03/23/2018 6:18 AM by SARAHY HARVEY Chart Sections reviewed by provider: documented in this encounter Plan of Treatment Not on file documented as of this encounter Goals Goal Patient Goal Type Associated Problems Recent Progress Patient-Stated? Author Blood Pressure < 140/90 Blood Pressure 160/96( 024 8:13 AM EDT) No Kilo Wang MD documented as of this encounter Visit Diagnoses Diagnosis Anxiety- Primary Anxiety state, unspecified documented in this encounter Care Teams Surface Supervisor Relationship Specialty Start Date End Date Dasha Sheppard PA-C [address] [place] [id number] PCP - General Family Practice 04/12/18 07/10/23 Kilo Wang MD Consulting Physician Neurology 08/30/16 12/01/21 Juan Haddad MD [address] [place] [address] Otolaryngology 09/23/17 documented as of this encounter
--- OUTSIDE RECORDS SUMMARY | 2024-06-24 04:37 | XMS_ITS | Encounter Summary ---
Author Organization [facility]th Address [address] [address] Care Team Providers Care Director Cardiology Name Role Phone Kilo Wang MD Unavailable [phone] Juan Haddad MD Unavailable [phone] Dasha Sheppard PA-C Primary Care Provider Reason for Visit * Test/Procedure/Other (Routine) - Closed Specialty Diagnoses / Procedures Referred By Contac t Referred To Contact Radiology Diagnoses Acute pain of left shoulder Arthralgia of left acromioclavicular joint Procedures XR ACROMIOCLAVICULAR JOINTS BILATERAL W WO WEIGHTS Dasha Sheppard, JIA [address] [facility] [place] [address] Phone: tel: fax: Referral ID Status Reason Start Date Expiration Date Visits Re quested Visits Authorized [id number] Closed 04/15/2020 04/15/2021 1 1 Encounter Details Date Type Department Care Team (Latest Contact Info) Description 04/15/2020 12:30 PM EDT Ancillary Procedure [address] [place] [id number] Acute pain of left shoulder; Arthralgia of left acromioclavicular joint Discharge Disposition: Home/Self Care Social History Tobacco [...] Name Priority Date/Time Associated Diagnosis Comments XR ACROMIOCLAVICULAR JOINTS BILATERAL W WO WEIGHTS Routine 04/15/2020 12:43 PM EDT Acute pain of left shoulder Arthralgia of left acromioclavicular joint documented in this encounter Results * XR ACROMIOCLAVICULAR JOINTS BILATERAL W WO WEIGHTS (04/15/2020 12:43 PM EDT) Anatomical Region Laterality Modality AC Joints Bilateral Computed Radiogr aphy 04/15/2020 12:3 4 PM EDT Impressions 04/15/2020 4:15 PM EDT No radiographic findings to suggest acromioclavicular sprain. Dictating Narrative 04/15/2020 4:15 PM EDT HISTORY: LEFT shoulder pain and decreased range of motion TECHNIQUE: AP views of the acromioclavicular joints without and with weights. COMPARISON: None FINDINGS: The acromioclavicular joints are congruent with and without weights. At most mild degenerative changes are present. The upper lung zones are clear. No abnormality of the glenohumeral joint on limited assessment. Procedure Note Chato Shaw MD - 04/15/2020 HISTORY: LEFT shoulder pain and decreased range of motion TECHNIQUE: AP views of the acromioclavicular joints without and withweights. COMPARISON: None FINDINGS: The acromioclavicular joints are congruent with and without weights. Atmost mild degenerative changes are present. The upper lung zones areclear. No abnormality of the glenohumeral joint on limited assessment. IMPRESSION: No radiographic findings to suggest acromioclavicular sprain. Dictating us Dasha Sheppard PA-C [facility] DIAG IMAGING ORD ERABLES Final Result documented in this encounter Visit Diagnoses Diagnosis Acute pain of left shoulder Arthralgia of left acromioclavicular joint Pain in joint, shoulder region documented in this encounter Care Teams Director Cardiology Relationship Specialty Start Date End Date Dasha Sheppard PA-C [address] [place] [id number] PCP - General Family Practice 04/12/18 07/10/23 Kilo Wang MD Consulting Physician Neurology 08/30/16 12/01/21 Juan Haddad MD [address] [place] [address] Otolaryngology 09/23/17 documented as of this encounter
--- OUTSIDE RECORDS SUMMARY | 2024-06-24 04:37 | XMS_ITS | Encounter Summary ---
Author Organization [facility] alth Address [address] [address] Care Team Providers Care Clerk Stenographer Name Role Phone Kilo Wang MD Unavailable [phone] Juan Haddad MD Unavailable [phone] Dasha Sheppard PA-C Primary Care Provider Trey Jennings MD Unavailable [phone] Guerita Elliott-C Unavailable +[phone] Matthew Rushing MD Unavailable [phone] Matthew Rushing MD Unavailable +[phone] Matthew Rushing MD Unavailable +[phone] Matthew Rushing MD Unavailable Matthew Rushing MD Unavailable +[phone] Matthew Rushing MD Unavailable +[phone] Matthew Rushing MD Unavailable +[phone] Matthew Rushing MD Unavailable +[phone] Matthew Rushing MD Unavailable +[phone] Matthew Rushing MD Unavailable +[phone] Matthew Rushing MD Unavailable +[phone] Matthew Rushing MD Unavailable Matthew Rushing MD Unavailable +[phone] Matthew Rushing MD Unavailable +[phone] Trey Jennings MD Unavailable +4 -5 Guerita Elliott PA-C Unavailable +4 -5 Matthew Rushing MD Unavailable +[phone] Guerita Elliott J PA-C Unavailable +4 -5 Matthew Rushing MD Unavailable +[phone] Matthew Rushing MD Unavailable +[phone] Guerita Elliott PA-C Unavailable +4 -5 Guerita Elliott PA-C Unavailable +4 [phone] Matthew Rushing MD Unavailable +[phone] Guerita Elliott PA-C Unavailable +4 -5 Matthew Rushing MD Unavailable +[phone] Matthew Rushing MD Unavailable Guerita Elliott PA-C Unavailable +4 -5 Matthew Rushing MD Unavailable +[phone] Guerita Elliott PA-C Unavailable +4 [phone] Matthew Rushing MD Unavailable +[phone] Guerita Elliott PA-C Unavailable +4 -[phone] Guerita Elliott PA-C Unavailable +[phone] Matthew Rushing MD Unavailable Guerita Elliott PA-C Unavailable +4 -4995 Matthew Rushing MD Unavailable +[phone] Guerita Elliott PA-C Unavailable +[phone] Matthew Rushing MD Unavailable +[phone] [place], Guerita J PA-C Unavailable +4 -5 Matthew Rushing MD Unavailable +[phone] Matthew Rushing MD Unavailable +[phone] Guerita Elliott PA-C Unavailable +4 [phone] Matthew Rushing MD Unavailable +[phone] Guerita Elliott J PA-C Unavailable +4 -4995 Guerita Elliott J PA-C Unavailable +4 -4995 Matthew Rushing MD Unavailable +[phone] Matthew Rushing MD Unavailable +[phone] Guerita Elliott J PA-C Unavailable +4 -4995 Guerita Elliott Kim PA-C Unavailable +[phone] Matthew Rushing MD Unavailable +[phone] Matthew Rushing MD Unavailable +[phone] Guerita Elliott Kim PA-C Unavailable +[phone] Guerita Elliott Kim PA-C Unavailable +4 -4995 Matthew Rushing MD Unavailable +[phone] Matthew Rushing MD Unavailable +[phone] Guerita Elliott Kim PA-C Unavailable +4 -[phone] GeorgetownLilli pinoher Alvarez PA-C Unavailable +[phone] Matthew Rushing MD Unavailable +[phone] Matthew Rushing MD Unavailable +[phone] Guerita Elliott J PA-C Unavailable +4 -[phone] aErlLilliGuerita J PA-C Unavailable +[phone] Matthew Rushing MD Unavailable +[phone] Guerita Elliott Kim PA-C Unavailable +[phone] Matthew Rushing MD Unavailable +[phone] Matthew Rushing MD Unavailable +[phone] Earl Guerita J PA-C Unavailable +4 -5 Lilli Elliotther J PA-C Unavailable +4 -4995 Matthew Rushing MD Unavailable +[phone] Matthew Rushing MD Unavailable +[phone] Earl Guerita J PA-C Unavailable +4 -[phone] Earl Guerita J PA-C Unavailable +4 -4995 Matthew Rushing MD Unavailable Matthew Rushing MD Unavailable +[phone] Guerita Elliott PA-C Unavailable +4 -5 Matthew Rushing MD Unavailable +[phone] EarlGuerita J PA-C Unavailable +4 -4995 Matthew Rushing MD Unavailable +[phone] EarlGuerita pino J PA-C Unavailable +4 -4995 Guerita Elliott J PA-C Unavailable +4 -4995 Matthew Rushing MD Unavailable +[phone] Matthew Rushing MD Unavailable +[phone] Guerita Elliott J PA-C Unavailable +4 -4995 EarlGuerita pino J PA-C Unavailable +[phone] Matthew Rushing MD Unavailable +[phone] Matthew Rushing MD Unavailable +[phone] Lilli Elliotther J PA-C Unavailable +[phone] Matthew Rushing MD Unavailable +[phone] Guerita Elliott PA-C Unavailable +4 -4995 Matthew Rushing MD Unavailable +[phone] Lilli Elliotther Alvarez PA-C Unavailable +4 -5 Earl Guerita J PA-C Unavailable +4 -5 Matthew Rushing MD Unavailable +[phone] Matthew Rushing MD Unavailable +[phone] Earl Guerita J PA-C Unavailable +4 -[phone] Earl Guerita J PA-C Unavailable +[phone] Matthew Rushing MD Unavailable +[phone] Earl Guerita Alvarez PA-C Unavailable +4 -5 Matthew Rushing MD Unavailable +[phone] Matthew Rushing MD Unavailable +[phone] Earl Guerita Alvarez PA-C Unavailable +4 -5 Matthew Rushing MD Unavailable +[phone] Earl Guerita Alvarez PA-C Unavailable +[phone] Matthew Rushing MD Unavailable +[phone] Guerita Elliott PA-C Unavailable +4 -4995 Guerita Elliott PA-C Unavailable +[phone] Matthew Rushing MD Unavailable +[phone] Matthew Rushing MD Unavailable +[phone] Guerita Elliott PA-C Unavailable +[phone] Matthew Rushing MD Unavailable Guerita Elliott PA-C Unavailable +4 -4995 Matthew Rushing MD Unavailable +[phone] Guerita Elliott PA-C Unavailable +[phone] Guerita Elliott PA-C Unavailable +544 [phone] Matthew Rushing MD Unavailable +[phone] Guerita Elliott-C Unavailable +4 -4995 Matthew Rushing MD Unavailable +[phone] Guerita Elliott PA-C Unavailable +4 -4995 Matthew Rushing MD Unavailable +[phone] Guerita Elliott PA-C Unavailable +4 -4995 Matthew Rushing MD Unavailable +[phone] Guerita Elliott-C Unavailable +[phone] Matthew Rushing MD Unavailable +[phone] Guerita Elliott PA-C Unavailable +[phone] Matthew Rushing MD Unavailable +[phone] Txfr Provider [facility], Temporary Primary Care Provider Matthew Rushing MD Unavailable +[phone] Guerita Elliott-C Unavailable +[phone] Matthew Rushing MD Unavailable +[phone] Guerita Elliott PA-C Unavailable +4 -4995 Matthew Rushing MD Unavailable +[phone] Guerita Elliott-C Unavailable +4 -4995 Guerita Elliott PA-C Unavailable +[phone] Mattehw Rushing MD Unavailable +[phone] Guerita Elliott-C Unavailable +[phone] Matthew Rushing MD Unavailable +[phone] Matthew Rushing MD Unavailable +[phone] Guerita Elliott-C Unavailable +[phone] Matthew Rushing MD Unavailable +[phone] Guerita Elliott PA-C Unavailable +4 -5 Guerita Elliott Kim PA-C Unavailable +4 -499 Matthew Rushing MD Unavailable +[phone] Matthew Rushing MD Unavailable +[phone] Guerita Elliott Kim PA-C Unavailable +4 -4995 Matthew Rushing MD Unavailable +[phone] Guerita Elliott PA-C Unavailable +14 [phone] Matthew Rushing MD Unavailable +[phone] Guerita Elliott PA-C Unavailable +4 -4995 Matthew Rushing MD Unavailable +[phone] Guerita Elliott PA-C Unavailable +4 -4995 Guerita Elliott J PA-C Unavailable +4 -4995 Matthew Rushing MD Unavailable +[phone] Matthew Rushing MD Unavailable +[phone] Guerita Elliott Kim PA-C Unavailable +4 -4995 Matthew Rushing MD Unavailable +[phone] Guerita Elliott Kim PA-C Unavailable +4 -4995 Matthew Rushing MD Unavailable +[phone] Guerita Elliott PA-C Unavailable +4 -4995 Guerita Elliott Kim PA-C Unavailable +[phone] Matthew Rushing MD Unavailable +[phone] Matthew Rushing MD Unavailable +[phone] Guerita Elliott J PA-C Unavailable +4 -4995 EarlGuerita Kim PA-C Unavailable +4 -4995 Matthew Rushing MD Unavailable +[phone] Guerita Elliott PA-C Unavailable +4 -4995 Matthew Rushing MD Unavailable +[phone] Guerita Elliott PA-C Unavailable +4 -4995 Matthew Rushing MD Unavailable +[phone] Matthew Rushing MD Unavailable +[phone] Guerita Elliott PA-C Unavailable +[phone] Matthew Del Toro MD Primary Care Provider [phone] Guerita Elliott PA-C Unavailable +[phone] Matthew Rushing MD Unavailable +[phone] Guerita Elliott PA-C Unavailable +[phone] Matthew Rushing MD Unavailable +[phone] Guerita Elliott PA-C Unavailable +[phone] Matthew Rushing MD Unavailable +[phone] Guerita Elliott PA-C Unavailable +[phone] Matthew Rushing MD Unavailable +[phone] Guerita Elliott PA-C Unavailable +[phone] Matthew Rushing MD Unavailable +[phone] Matthew Rushing MD Unavailable +[phone] Guerita Elliott PA-C Unavailable +[phone] Guerita Elliott PA-C Unavailable +[phone] Matthew Rushing MD Unavailable +[phone] Matthew Rushing MD Unavailable Guerita Elliott PA-C Unavailable +[phone] Matthew Rushing MD Unavailable +[phone] Guerita Elliott PA-C Unavailable +[phone] Guerita Elliott PA-C Unavailable Matthew Rushing MD Unavailable +[phone] Matthew Rushing MD Unavailable +[phone] Guerita ElliottC Unavailable Guerita Elliott PA-C Unavailable +[phone] Matthew Rushing MD Unavailable +[phone] Guerita ElliottC Unavailable +[phone] Matthew Rushing MD Unavailable +[phone] Matthew Rushing MD Unavailable +[phone] Guerita ElliottC Unavailable +[phone] Matthew Rushing MD Unavailable [phone] Guerita Elliott-C Unavailable +[phone] Reason for Visit * Reason Comments Refill Request [facility]ipine [id number] Encounter Details Date Type Department Care Team (Late st Contact Info) Description 11/21/2019 Refill [facility] [address] [address] Matthew Rushing MD [address] [place] [address] Refill Request (A[facility]odipine [id number]) Social History Tobacco Use Types Packs/Day Years [...] and Family Not on file 09/30/2020 Attends [employer] Not on file 09/30 Active Member [...] * Telephone Encounter - Daphney Renteria - 11/21/2019 10:53 AM EDT [facility] Refill Request Request for refill received via eRx from [facility]/Pharmacy #[id number] for patient's prescription for Amlodipine 5 mg tablet. Last [facility] provider office visit: 07/31/2018 Сергей Last BMP: Lab Results Component Value [...] documented as of this encounter Care Teams Clerk Stenographer Relationship Specialty Start Date End Date Dasha Sheppard PA-C [facility] [place] [address] PCP - General Family Practice 04/12/18 07/10/23 Txfr Provider Family Medicine [place], Temporary [address] [facility] [address] [place] [address] PCP - General Family Practice 07/11/23 12/11/23 Matthew Del Toro MD [address] [facility] [address] [place] [address] PCP - General Family Practice 12/12/23 Kilo Wang MD Consulting Physician Neurology 08/30/16 12/01/21 Juan Haddad MD [address] [place] [address] Otolaryngology 09/23/17 Trey Jennings MD [address] [facility] [address] [place] [address] Consulting Physician Cardiothoracic Surgery 07/13/21 Guerita Elliott PA-C [address] [address] [facility] Specialist Cardiothoracic Surgery 01/03/22 06/27/22 Matthew Rushing MD [address] [place] [address] [facility] Specialist Cardiology - General 03/07/22 03/28/22 Matthew Rushing MD [address] [place] [address] [facility] Specialist Cardiology - General 04/04/22 04/04/22 Matthew Rushing MD [address] [place] [address] [facility] Specialist Cardiology - General 04/11/22 04/11/22 Matthew Rushing MD [address] [place] [address] [facility] Specialist Cardiology - General 04/18/22 04/18/22 Matthew Rusihng MD [address] [place] [address] [facility] Specialist Cardiology - General 04/25/22 04/25/22 Matthew Rushing MD [address] [place] [address] [facility] Specialist Cardiology - General 05/02/22 05/02/22 Matthew Rushing MD [address] [place] [address] 50836 [facility] Specialist Cardiology - General 05/09/22 05/09/22 Matthew Rushing MD [address] [place] [address] [facility] Specialist Cardiology - General 05/16/22 05/16/22 Matthew Rushing MD [address] [place] [address] [facility] Specialist Cardiology - General 05/23/22 05/23/22 Matthew Rushing MD [address] [place] [address] 03139 [facility] Specialist Cardiology - General 05/30/22 05/30/22 Matthew Rushing MD [address] [place] [address]14 [facility] Specialist Cardiology - General 06/06/22 06/06/22 Matthew Rushing MD [address] [place] [address] 27263 [facility] Specialist Cardiology - General 06/13/22 06/13/22 Matthew Rushing MD [address] [place] [address] 42842 [facility] Specialist Cardiology - General 06/20/22 06/20/22 Matthew Rushing MD [address] [place] [address]2520 [facility] Specialist Cardiology - General 06/27/22 06/27/22 Trey Jennings MD [address] [place] [address] [facility] Specialist Cardiothoracic Surgery 06/27/22 Guerita Elliott PA-C [address] [place] [address] [facility] Specialist Cardiothoracic Surgery 07/04/22 3 Matthew Rushing MD [address] [place] [address]221 [facility] Specialist Cardiology - General 07/04/22 07/04/22 Guerita Elliott PA-C [address] [place] [address] [facility] Specialist Cardiothoracic Surgery 07/11/22 3 Matthew Rushing MD [address] [place] [address] [facility] Specialist Cardiology - General 07/11/22 07/11/22 Matthew Rushing MD [address] [place] [address] 23863 [facility] Specialist Cardiology - General 07/18/22 07/18/22 Guerita Elliott PA-C [address] [place] [address] [facility] Specialist Cardiothoracic Surgery 07/18/22 3 Guerita Elliott PA-C [address] [address] [facility] Specialist Cardiothoracic Surgery 07/25/22 07/25/22 Matthew Rushing MD [address] [place] [address] [facility] Specialist Cardiology - General 07/25/22 07/25/22 Guerita Elliott PA-C [address] [address] [facility] Specialist Cardiothoracic Surgery 08/01/22 3 Matthew Rushing MD [address] [place] [address] 96[address] [facility] Specialist Cardiology - General 08/01/22 08/01/22 Matthew Rushing MD [address] [place] [address] 45[address] [facility] Specialist Cardiology - General 08/08/22 08/08/22 Guerita Elliott PA-C [address] [address] [facility] Specialist Cardiothoracic Surgery 08/08/22 3 Matthew Rushing MD [address] [place] [address] 03816 [facility] Specialist Cardiology - General 08/15/22 08/15/22 Guerita Elliott PA-C [address] [address] [facility] Specialist Cardiothoracic Surgery 08/15/22 3 Matthew Rushing MD [address] [place] [address] 9[address]48 [facility] Specialist Cardiology - General 08/22/22 08/22/22 Guerita Elliott PA-C [address] [address] [facility] Specialist Cardiothoracic Surgery 08/22/22 08/22/22 Guerita Elliott PA-C [address] [address] [facility] Specialist Cardiothoracic Surgery 08/29/22 3 Matthew Rushing MD [address] [place] [address] 30[address] [facility] Specialist Cardiology - General 08/29/22 08/29/22 Guerita Elliott PA-C [address] [address] [facility] Specialist Cardiothoracic Surgery 09/05/22 3 Matthew Rushing MD [address] [place] [address] 13[address] [facility] Specialist Cardiology - General 09/05/22 09/05/22 Guerita Elliott PA-C [address] [address] [facility] Specialist Cardiothoracic Surgery 09/12/22 Matthew Rushing MD [address] [place] [address] [facility] Specialist Cardiology - General 09/12/22 09/12/22 Guerita Elliott PA-C [address] [address] [facility] Specialist Cardiothoracic Surgery 09/19/22 09/19/22 Matthew Rushing MD [address] [place] [address] [facility] Specialist Cardiology - General 09/19/22 09/19/22 Matthew Rushing MD [address] [place] [address] 23499 [facility] Specialist Cardiology - General 09/26/22 09/26/22 Guerita Elliott PA-C [address] [address] [facility] Specialist Cardiothoracic Surgery 09/26/22 09/26/22 Matthew Rushing MD [address] [place] [address] [facility] Specialist Cardiology - General 10/03/22 10/03/22 Guerita Elliott PA-C [address] [address] [facility] Specialist Cardiothoracic Surgery 10/03/22 3 Guerita Elliott PA-C [address] [address] [facility] Specialist Cardiothoracic Surgery 10/10/22 3 Matthew Rushing MD [address] [place] [address] [facility] Specialist Cardiology - General 10/10/22 10/10/22 Matthew Rushing MD [address] [place] [address] 8[address] [facility] Specialist Cardiology - General 10/17/22 10/17/22 Guerita Elliott PA-C [address] [address] [facility] Specialist Cardiothoracic Surgery 10/17/22 3 Guerita Elliott PA-C [address] [address] [facility] Specialist Cardiothoracic Surgery 10/24/22 10/24/22 Matthew Rushing MD [address] [place] [address] 336[address] [facility] Specialist Cardiology - General 10/24/22 10/24/22 Matthew Rushing MD [address] [place] [address] 13944 [facility] Specialist Cardiology - General 10/31/22 10/31/22 Guerita Elliott PA-C [address] [address] [facility] Specialist Cardiothoracic Surgery 10/31/22 3 Guerita Elliott PA-C [address] [address] [facility] Specialist Cardiothoracic Surgery 11/07/22 3 Matthew Rushing MD [address] [place] [address] 13687 [facility] Specialist Cardiology - General 11/07/22 11/07/22 Matthew Rushing MD [address] [place] [address] 95673 [facility] Specialist Cardiology - General 11/14/22 11/14/22 Guerita Elliott PA-C [address] [address] [facility] Specialist Cardiothoracic Surgery 11/14/22 3 Guerita Elliott PA-C [address] [address] [facility] Specialist Cardiothoracic Surgery 11/21/22 11/21/22 Matthew Rushing MD [address] [place] [address] 9[address] [facility] Specialist Cardiology - General 11/21/22 11/21/22 Matthew Rushing MD [address] [place] [address] 41474 [facility] Specialist Cardiology - General 11/28/22 11/28/22 Guerita Elliott PA-C [address] [address] [facility] Specialist Cardiothoracic Surgery 11/28/22 3 Guerita Elliott PA-C [address] [address] [facility] Specialist Cardiothoracic Surgery 12/05/22 3 Matthew Rushing MD [address] [place] [address] [facility] Specialist Cardiology - General 12/05/22 12/05/22 Guerita Elliott PA-C [address] [address] [facility] Specialist Cardiothoracic Surgery 12/12/22 3 Matthew Rushing MD [address] [place] [address] [facility] Specialist Cardiology - General 12/12/22 12/12/22 Matthew Rushing MD [address] [place] [address] 9[address]44 [facility] Specialist Cardiology - General 12/19/22 12/19/22 Guerita Elliott PA-C [address] [address] [facility] Specialist Cardiothoracic Surgery 12/19/22 12/19/22 Guerita Elliott PA-C [address] [address] [facility] Specialist Cardiothoracic Surgery 12/26/22 12/26/22 Matthew Rushing MD [address] [place] [address] 54722 [facility] Specialist Cardiology - General 12/26/22 12/26/22 Matthew Rushing MD [address] [place] [address] 58535 [facility] Specialist Cardiology - General 01/02/23 01/02/23 Guerita Elliott PA-C [address] [address] [facility] Specialist Cardiothoracic Surgery 01/02/23 3 Guerita Elliott PA-C [address] [address] [facility] Specialist Cardiothoracic Surgery 01/09/23 3 Matthew Rushing MD [address] [place] [address] 07882 [facility] Specialist Cardiology - General 01/09/23 01/09/23 Matthew Rushing MD [address] [place] [address] 52367 [facility] Specialist Cardiology - General 01/16/23 01/16/23 Guerita Elliott PA-C [address] [address] [facility] Specialist Cardiothoracic Surgery 01/16/23 3 Matthew Rushing MD [address] [place] [address] 46990 [facility] Specialist Cardiology - General 01/23/23 01/23/23 Guerita Elliott PA-C [address] [address] [facility] Specialist Cardiothoracic Surgery 01/23/23 01/23/23 Matthew Rushing MD [address] [place] [address] 43498 [facility] Specialist Cardiology - General 01/30/23 01/30/23 Guerita Elliott PA-C [address] [address] [facility] Specialist Cardiothoracic Surgery 01/30/23 3 Guerita Elliott PA-C [address] [address] [facility] Specialist Cardiothoracic Surgery 02/06/23 3 Matthew Rushing MD [address] [place] [address] 09001 [facility] Specialist Cardiology - General 02/06/23 02/06/23 Matthew Rushing MD [address] [place] [address] 10741 [facility] Specialist Cardiology - General 02/13/23 02/13/23 Guerita Elliott PA-C [address] [address] [facility] Specialist Cardiothoracic Surgery 02/13/23 Guerita Elliott PA-C [address] [address] [facility] Specialist Cardiothoracic Surgery 02/20/23 02/20/23 Matthew Rushing MD [address] [place] [address] 101[address] [facility] Specialist Cardiology - General 02/20/23 02/20/23 Matthew Rushing MD [address] [place] [address] 06810 [facility] Specialist Cardiology - General 02/27/23 02/27/23 Guerita Elliott PA-C [address] [address] [facility] Specialist Cardiothoracic Surgery 02/27/23 3 Matthew Rushing MD [address] [place] [address] 35579 [facility] Specialist Cardiology - General 03/06/23 03/06/23 Guerita Elliott PA-C [address] [address] [facility] Specialist Cardiothoracic Surgery 03/06/23 3 Matthew Rushing MD [address] [place] [address] 33006 [facility] Specialist Cardiology - General 03/13/23 03/13/23 Guerita Elliott PA-C [address] [address] [facility] Specialist Cardiothoracic Surgery 03/13/23 3 Guerita Elliott PA-C [address] [address] [facility] Specialist Cardiothoracic Surgery 03/20/23 3 Matthew Rushing MD [address] [place] [address] 54873 [facility] Specialist Cardiology - General 03/20/23 03/20/23 Matthew Rushing MD [address] [place] [address] 01678 [facility] Specialist Cardiology - General 03/27/23 03/27/23 Guerita Elliott PA-C [address] [address] [facility] Specialist Cardiothoracic Surgery 03/27/23 3 Guerita Elliott PA-C [address] [address] [facility] Specialist Cardiothoracic Surgery 04/03/23 Matthew Rushing MD [address] [place] [address] [facility] Specialist Cardiology - General 04/03/23 04/03/23 Guerita Elliott PA-C [address] [address] [facility] Specialist Cardiothoracic Surgery 04/10/23 Matthew Rushing MD [address] [place] [address] 69177 [facility] Specialist Cardiology - General 04/10/23 04/10/23 Matthew Rushing MD [address] [place] [address] 69834 [facility] Specialist Cardiology - General 04/17/23 04/17/23 Guerita Elliott PA-C [address] [place] [address] 18215 [facility] Specialist Cardiothoracic Surgery 04/17/23 Matthew Rushing MD [address] [place] [address] 45578 [facility] Specialist Cardiology - General 04/24/23 04/24/23 Guerita Elliott PA-C [address] [place] [address] 64584 [facility] Specialist Cardiothoracic Surgery 04/24/23 3 Matthew Rushing MD [address] [place] [address] 02441 [facility] Specialist Cardiology - General 05/01/23 05/01/23 Guerita Elliott PA-C [address] [address] [facility] Specialist Cardiothoracic Surgery 05/01/23 Guerita Elliott PA-C [address] [address]65 [facility] Specialist Cardiothoracic Surgery 05/08/23 Matthew Rushing MD [address] [place] [address] 52047 [facility] Specialist Cardiology - General 05/08/23 05/08/23 Matthew Rushing MD [address] [place] [address] 44962 [facility] Specialist Cardiology - General 05/15/23 05/15/23 Guerita Elliott PA-C [address] [address] [facility] Specialist Cardiothoracic Surgery 05/15/23 Matthew Rushing MD [address] [place] [address] 49719 [facility] Specialist Cardiology - General 05/22/23 05/22/23 Guerita Elliott PA-C [address] [address] [facility] Specialist Cardiothoracic Surgery 05/22/23 3 Matthew Rushing MD [address] [place] [address] 28579 [facility] Specialist Cardiology - General 05/29/23 05/29/23 Guerita Elliott PA-C [address] [address] [facility] Specialist Cardiothoracic Surgery 05/29/23 Guerita Elliott PA-C [address] [address] [facility] Specialist Cardiothoracic Surgery 06/05/23 Matthew Rushing MD [address] [place] [address] 48152 [facility] Specialist Cardiology - General 06/05/23 06/05/23 Guerita Elliott PA-C [address] [address] [facility] Specialist Cardiothoracic Surgery 06/12/23 Matthew Rushing MD [address] [place] [address] 88587 [facility] Specialist Cardiology - General 06/12/23 06/12/23 Guerita Elliott PA-C [address] [place] [address] 50991 [facility] Specialist Cardiothoracic Surgery 06/19/23 Matthew Rushing MD [address] [place] [address] 12055 [facility] Specialist Cardiology - General 06/19/23 06/19/23 Guerita Elliott PA-C [address] 39897 [facility] Specialist Cardiothoracic Surgery 06/26/23 06/26/23 Matthew Rushing MD [address] [place] [address] 53609 [facility] Specialist Cardiology - General 06/26/23 06/26/23 Guerita Elliott PA-C [address] 15480 [facility] Specialist Cardiothoracic Surgery 07/03/23 4 Matthew Rushing MD [address] [place] [address] [phone] [facility] Specialist Cardiology - General 07/03/23 07/03/23 Guerita Elliott PA-C [address] [place] [address] 41602 [facility] Specialist Cardiothoracic Surgery 07/10/23 4 Matthew Rushing MD [address] [place] [address] 80299 [facility] Specialist Cardiology - General 07/10/23 07/10/23 Matthew Rushing MD [address] [place] [address] 65836 [facility] Specialist Cardiology - General 07/17/23 07/17/23 Guerita Elliott PA-C [address] 12121 [facility] Specialist Cardiothoracic Surgery 07/17/23 4 Matthew Rushing MD [address] [place] [address] 17441 [facility] Specialist Cardiology - General 07/24/23 07/24/23 Guerita Elliott PA-C [address] 05843 [facility] Specialist Cardiothoracic Surgery 07/24/23 07/24/23 Matthew Rushing MD [address] [place] [address] 76374 [facility] Specialist Cardiology - General 07/31/23 07/31/23 Guerita Elliott PA-C [address] 05047 [facility] Specialist Cardiothoracic Surgery 07/31/23 4 Guerita Elliott PA-C [address] 70653 [facility] Specialist Cardiothoracic Surgery 08/07/23 4 Matthew Rushing MD [address] [place] [address] 72762 [facility] Specialist Cardiology - General 08/07/23 08/07/23 Guerita Elliott PA-C [address] 31998 [facility] Specialist Cardiothoracic Surgery 08/14/23 4 Matthew Rushing MD [address] [place] [address] 22155 [facility] Specialist Cardiology - General 08/14/23 08/14/23 Matthew Rushing MD [address] [place] [address] 61912 [facility] Specialist Cardiology - General 08/21/23 08/21/23 Guerita Elliott PA-C [address] 05769 [facility] Specialist Cardiothoracic Surgery 08/21/23 08/21/23 Matthew Rushing MD [address] [place] [address] 75397 [facility] Specialist Cardiology - General 08/28/23 08/28/23 Guerita Elliott PA-C [address] 51188 [facility] Specialist Cardiothoracic Surgery 08/28/23 4 Guerita Elliott PA-C [address] 07373 [facility] Specialist Cardiothoracic Surgery 09/04/23 4 Matthew Rushing MD [address] [place] [address] 55046 [facility] Specialist Cardiology - General 09/04/23 09/04/23 Matthew Rushing MD [address] [place] [address] 29137 [facility] Specialist Cardiology - General 09/11/23 09/11/23 Guerita Elliott PA-C [address] 23289 [facility] Specialist Cardiothoracic Surgery 09/11/23 4 Matthew Rushing MD [address] [place] [address] 61013 [facility] Specialist Cardiology - General 09/18/23 09/18/23 Guerita Elliott PA-C [address] [place] [address] 45832 [facility] Specialist Cardiothoracic Surgery 09/18/23 4 Matthew Rushing MD [address] [place] [address] 13203 [facility] Specialist Cardiology - General 09/25/23 09/25/23 Guerita Elliott PA-C [address] [place] [address] 75756 [facility] Specialist Cardiothoracic Surgery 09/25/23 09/25/23 Matthew Rushing MD [address] [place] [address] 25121 [facility] Specialist Cardiology - General 10/02/23 10/02/23 Guerita Elliott PA-C [address] [place] [address] 40453 [facility] Specialist Cardiothoracic Surgery 10/02/23 4 Guerita Elliott PA-C [address] 46062 [facility] Specialist Cardiothoracic Surgery 10/09/23 4 Matthew Rushing MD [address] [place] [address] 64590 [facility] Specialist Cardiology - General 10/09/23 10/09/23 Matthew Rushing MD [address] [place] [address] 81217 [facility] Specialist Cardiology - General 10/16/23 10/16/23 Guerita Elliott PA-C [address] 40397 [facility] Specialist Cardiothoracic Surgery 10/16/23 4 Matthew Rushing MD [address] [place] [address] 08441 [facility] Specialist Cardiology - General 10/23/23 10/23/23 Guerita Elliott PA-C [address] 60220 [facility] Specialist Cardiothoracic Surgery 10/23/23 10/23/23 Matthew Rushing MD [address] [place] [address] 18529 [facility] Specialist Cardiology - General 10/30/23 10/30/23 Guerita Elliott PA-C [address] 11559 [facility] Specialist Cardiothoracic Surgery 10/30/23 4 Guerita Elliott PA-C [address] 82124 [facility] Specialist Cardiothoracic Surgery 11/06/23 4 Matthew Rushing MD [address] [place] [address] 05951 [facility] Specialist Cardiology - General 11/06/23 11/06/23 Matthew Rushing MD [address] [place] [address] 71671 [facility] Specialist Cardiology - General 11/13/23 11/13/23 Guerita Elliott PA-C [address] 04981 [facility] Specialist Cardiothoracic Surgery 11/13/23 4 Guerita Elliott PA-C [address] 35278 [facility] Specialist Cardiothoracic Surgery 11/20/23 11/20/23 Matthew Rushing MD [address] [place] [address] 64123 [facility] Specialist Cardiology - General 11/20/23 11/20/23 Guerita lEliott PA-C [address] 71829 [facility] Specialist Cardiothoracic Surgery 11/27/23 11/27/23 Matthew Rushing MD [address] [place] [address] 72277 [facility] Specialist Cardiology - General 11/27/23 11/27/23 Guerita Elliott PA-C [address] 31474 [facility] Specialist Cardiothoracic Surgery 12/04/23 4 Matthew Rushing MD [address] [place] [address] 56260 [facility] Specialist Cardiology - General 12/04/23 12/04/23 Matthew Rushing MD [address] [place] [address] 55745 [facility] Specialist Cardiology - General 12/11/23 12/11/23 Guerita Elliott PA-C [address] 92042 [facility] Specialist Cardiothoracic Surgery 12/11/23 4 Guerita Elliott PA-C [address] 62267 [facility] Specialist Cardiothoracic Surgery 12/18/23 4 Matthew Rushing MD [address] [place] [address] 23401 [facility] Specialist Cardiology - General 12/18/23 12/18/23 Guerita Elliott PA-C [address] 30878 [facility] Specialist Cardiothoracic Surgery 12/25/23 12/25/23 Matthew Rushing MD [address] [place] [address] 83604 [facility] Specialist Cardiology - General 12/25/23 12/25/23 Guerita Elliott PA-C [address] 12852 [facility] Specialist Cardiothoracic Surgery 01/01/24 4 Matthew Rushing MD [address] [place] [address] 32472 [facility] Specialist Cardiology - General 01/01/24 01/01/24 Guerita Elliott PA-C [address] [place] [address] 00884 [facility] Specialist Cardiothoracic Surgery 01/08/24 4 Matthew Rushing MD [address] [place] [address] 55333 [facility] Specialist Cardiology - General 01/08/24 01/08/24 Guerita Elliott PA-C [address] [place] [address] 29316 [facility] Specialist Cardiothoracic Surgery 01/15/24 4 Matthew Rushing MD [address] [place] [address] 47976 [facility] Specialist Cardiology - General 01/15/24 01/15/24 Matthew Rushing MD [address] [place] [address] 18640 [facility] Specialist Cardiology - General 01/22/24 01/22/24 Guerita Elliott PA-C [address] 10635 [facility] Specialist Cardiothoracic Surgery 01/22/24 01/22/24 Guerita Elliott PA-C [address] 89383 [facility] Specialist Cardiothoracic Surgery 01/29/24 Matthew Rushing MD [address] [place] [address] 17055 [facility] Specialist Cardiology - General 01/29/24 01/29/24 Matthew Rushing MD [address] [place] [address] 22945 [facility] Specialist Cardiology - General 02/05/24 02/05/24 Guerita Elliott PA-C [address] 64854 [facility] Specialist Cardiothoracic Surgery 02/05/24 4 Matthew Rushing MD [address] [place] [address] 98702 [facility] Specialist Cardiology - General 02/12/24 02/12/24 Guerita Elliott PA-C [address] 42099 [facility] Specialist Cardiothoracic Surgery 02/12/24 4 Guerita Elliott PA-C [address] 62789 [facility] Specialist Cardiothoracic Surgery 02/19/24 02/19/24 Matthew Rushing MD [address] [place] [address] 35700 [facility] Specialist Cardiology - General 02/19/24 02/19/24 Matthew Rushing MD [address] [place] [address] 95098 [facility] Specialist Cardiology - General 02/26/24 02/26/24 Guerita Elliott PA-C [address] 31420 [facility] Specialist Cardiothoracic Surgery 02/26/24 02/26/24 Guerita Elliott PA-C [address] 81095 [facility] Specialist Cardiothoracic Surgery 03/04/24 4 Matthew Rushing MD [address] [place] [address] 63964 [facility] Specialist Cardiology - General 03/04/24 03/04/24 Guerita Elliott PA-C [address] 00828 [facility] Specialist Cardiothoracic Surgery 03/11/24 4 Matthew Rushing MD [address] [place] [address] 95531 [facility] Specialist Cardiology - General 03/11/24 03/11/24 Matthew Rushing MD [address] [place] [address] 21043 [facility] Specialist Cardiology - General 03/18/24 03/18/24 Guerita Elliott PA-C [address] 25514 [facility] Specialist Cardiothoracic Surgery 03/18/24 4 Matthew Rushing MD [address] [place] [address] 59110 [facility] Specialist Cardiology - General 03/25/24 03/25/24 Guerita Elliott PA-C [address] [address]14 [facility] Specialist Cardiothoracic Surgery 03/25/24 4 documented as of this encounter
--- OUTSIDE RECORDS SUMMARY | 2024-06-24 04:37 | XMS_ITS | Encounter Summary ---
Author Organization [facility] alth Address [address] [place] [address] Care Team Providers Care Drop Wire Operator Name Role Phone Kilo Wang MD Unavailable [phone] Juan Haddad MD Unavailable [phone] Dasha Sheppard-C Primary Care Provider Reason for Referral * New Consult/Second Opinion (Within 2 Weeks) - Closed Specialty Diagnoses / Procedures Referred By Contac t Referred To Contact Cardiothoracic Surgery Diagnoses Thoracic aortic aneurysm without rupture ([facility]/HCC) Matthew Rushing MD [address] [place] [address] Phone: tel: fax: Cardiothoracic Surgery [address] [address] Phone: tel: fax: Referral ID Status Reason Start Date Expiration Date V isits Requested Visits Authorized [id number] Closed Co-managemen t Until Stable 03/25/2020 03/25/2021 1 1 Question Answer Reason for Referral: Ascending Aortic Aneurysm Has patient had Chest CT/MRI in past 6 months? Yes Has patient had Transthoracic Echo in the past 6 months? 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 Reason for Visit * Reason Comments Hypertension Pt denies CP or SOB. Encounter Details Date Type Department Care Team (Late st Contact Info) Description 03/25/2020 1:40 PM EDT [facility] Visit [facility] [address] [address] Matthew Rushing MD [address] [place] [address] 17603 Essential hypertension (Primary Dx); Thoracic aortic aneurysm without rupture (CMS/HCC) Discharge Disposition: Home/Self Care Social History Tobacco [...] Sign Reading Time Taken Comments Blood Pressure 123/78 03/25/2020 1:44 PM EDT Pulse 88 03/25/2020 1:44 PM EDT Temperature - - Respiratory Rate - - Oxygen Saturation - - Inhaled Oxygen Concentration - - Weight 108 kg (238 lb) 03/25/2020 1:44 PM EDT Height 182.9 cm (6') 03/25/2020 1:44 PM EDT Body Mass Index 32.28 03/25/2020 1:44 PM EDT documented in this encounter Patient Instructions * Patient Instructions* Maine Cardozo RN - 03/25/2020 1:54 PM EDT Referral to [facility] [address], [address] [place] [address] Medications: START Atorvastatin (Lipitor) 20mg daily. - Follow up with your family doctor for ongoing cholesterol management. Additional Instructions: If you have any questions, problems, or concerns, please do not hesitate to call andchoose option #2 to Speak with a nurse, and then press #3 for General Cardiology. documented in this encounter Progress Notes * Debbie Connell - 03/25/2020 1:43 PM EDT Review of Systems All other systems reviewed and are negative. * Matthew Rushing MD - 03/25/2020 1:40 PM EDT Impression 1. History of chest pain and shortness of breath: Patient has had resolution of the symptoms. Low risk stress echocardiogram last year. 3. Hypertension: Blood pressure at target 4. Oral tobacco use: Patient still chewing tobacco and finds it extremely difficult to stop. We didhave a discussion about this. 5. 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 Will refer to Cardio Thoracic Surgery for evaluation and long-term follow-up at this point. 6. Hyperlipidemia: Will start on statin because of aorta. Will have him follow- up with PCP for this. Patient's target is an LDL less than 100 and non-HDL less than 130. Plan 1. Refer to Cardio Thoracic Surgery 2. Start atorvastatin 20 mg daily. Follow-up with PCP for hypercholesterolemia. History of Present Illness Robert Alexis Jr. is a 54 y.o. male who presents for follow-up of thoracic aortic aneurysm and hypertension. The patient was last seen in July, at which time the patient had a Lexiscan stress test and CT angiogram of the aorta for complaints of shortness of breath and chest pain. Cardiovascular risk factors include hypertension, hypercholesterolemia, and tobacco abuse. Echocardiogram 11/22/2019: Est. LV Ejection Fraction is 60-65%. Functionally tricuspid aortic valve without stenosis or insufficiency. The aortic root dimension is increased. The ascending aorta dimension is increased CT angiogram of the chest 12/18/2019: Mild aneurysmal dilatation at the aortic root up to 50 mm at the level of the sinuses of Valsalva. This does appear slightly increased since prior imaging given motion at this level. Stress echocardiogram 08/02/2018: Pretest Probability Score = 9 pts. (Intermediate Risk) Target heart rate was achieved. There was no new ST segment depression with stress. Baseline LV systolic function is within normal limits. No evidence for regional wall motion abnormality on the baseline echo. Estimated Ejection Fraction = 60-65%. Immediate post exercise LV systolic function increased normally. There were no obvious regional wall motion abnormalities observed immediately post exercise. Noninvasive Risk Stratification: Low Risk (< 1% annual mortality rate) Findings suggest a low probability for stress induced myocardial ischemia. Echocardiogram 07/18/18: Global systolic LV function is normal. There is no evidence for LV regional wall motion abnormality. Est. LV Ejection Fraction is 60-65%. Normal diastolic function. There is no evidence for significant valvular pathology. The aortic root dimension is increased. The ascending aorta dimension is increased. Since last echo ascending aorta is larger-consider alternative imaging. Active Problems Patient Active Problem List Diagnosis Date Noted ??? Thoracic aortic aneurysm without rupture (CMS/HCC) 03/10/2020 Priority: Medium ??? Serrated polyp of colon 07/02/2019 Priority: Medium ??? Left carpal tunnel syndrome 03/21/2018 Priority: Medium ??? Right carpal tunnel syndrome 03/02/2018 Priority: Medium ??? Congenital absence of left kidney 02/13/2018 Priority: Medium ??? Lyme disease 02/13/2018 Priority: Medium ??? Cubital tunnel syndrome on left 01/26/2018 Priority: Medium ??? Occipital neuralgia of right side 08/30/2016 Priority: Medium ??? Bilateral carpal tunnel syndrome 08/30/2016 Priority: Medium ??? Anxiety Priority: Medium ??? Tubular adenoma of colon. Repeat colonoscopy in APR 2019 04/27/2016 Priority: Medium ??? Essential hypertension 08/28/2012 Priority: Medium ??? Asthma 08/28/2012 Priority: Medium family history includes Cancer (age of onset: 67) in his mother. Allergies Allergies Allergen Reactions ??? Zoloft [Sertraline] Indigestion/GI Upset Medications Outpatient Encounter Medications as of 03/25/2020 Medication Sig Dispense Refill ??? amLODIPine (NORVASC) 5 MG tablet Take 1 tablet by mouth daily. 90 tablet 0 ??? [DISCONTINUED] escitalopram (LEXAPRO) 10 MG tablet Take 1 tablet by mouth daily. 30 tablet 1 No facility-administered encounter medications on file as of 03/25/2020. Review of Systems Constitutional Symptoms: Negative for unexplained weight loss, night sweats Eyes: Negative for visual changes ENT:Negative for nose bleeds, ringing in ears pain with swallowing Cardiovascular: See HPI Pulmonary: Asthma Gastrointestinal: History of colon polyp Genitourinary: Congenital absence of left kidney Musculoskeletal: Negative for arthritis, muscle cramps, back pain Neurological: Negative for movement disorder, numbness,seizures, weakness Psychiatric: Anxiety Endocrine: Negative for cold/heat intolerance, polydypsia Hematologic/Lymphatic: Negative for anemia, easy bruisability Allergic/Immunologic: See current allergies on file I reviewed the med list, past medical, surgical, social and family history within [facility]. Physical Exam Vitals: Visit Vitals BP 123/78 Pulse 88 Ht 1.829 m (6') Wt 108 kg (238 lb) BMI 32.28 kg/m?? General: 54 y.o. male in no acute distress Skin: warm and dry. Head: normocephalic atraumatic. Neck: There is no jugular venous distention Carotid arteries: There were no carotid bruits. Heart: Regular rhythm without murmur Chest: Clear to auscultation Musculoskeletal: There is no kyphoscoliosis. . Abdomen: Not examined Genitalia: Not examined Extremities: No peripheral edema Neuro: Patient is alert and oriented X3 Psychiatric: Affect appropriate. documented in this encounter Plan of Treatment Scheduled Referrals Name Type Priority Associated Diagnoses Orde r Schedule AMB REFERRAL TO [facility] CARDIAC SURGERY [facility] Outpatient Referral Routine Thoracic aortic aneurysm without rupture (CMS/HCC) Ordered: 03/25/2020 documented as of this encounter Goals Goal Patient Goal Type Associated Problems Recent Progress Patient-Stated? Author Blood Pressure < 140/90 Blood Pressure 160/96( 024 8:13 AM EDT) No Kilo Wang MD documented as of this encounter Visit Diagnoses Diagnosis Essential hypertension- Primary Unspecified essential hypertension Thoracic aortic aneurysm without rupture (CMS/HCC) Thoracic aneurysm without mention of rupture documented in this encounter Care Teams Drop Wire Operator Relationship Specialty Start Date End Date Dasha Sheppard PA-C [address] [address] PCP - General Family Practice 04/12/18 07/10/23 Kilo Wang MD Consulting Physician Neurology 08/30/16 12/01/21 Juan Haddad MD [address] [address] Otolaryngology 09/23/17 documented as of this encounter
--- OUTSIDE RECORDS SUMMARY | 2024-06-24 04:37 | XMS_ITS | Encounter Summary ---
Author Organization [facility] alth Address [address] [place] [address] Care Team Providers Care Oncologist Name Role Phone Kilo Wang MD Unavailable [phone] Juan Haddad MD Unavailable [phone] Dasha Sheppard PA-C Primary Care Provider Reason for Visit * Reason Comments Refill Request Amlodipine / Refill denied Encounter Details Date Type Department Care Team (Late st Contact Info) Description 02/15/2020 [address] [facility] [address] [place] [address] Nicole Diez CRNP [address] [place] [address] Refill Request (Amlodipine / Refill denied) Social History Tobacco Use Types Packs/Day Years [...] * Telephone Encounter - Jocelyn Brooks - 02/15/2020 10:49 AM EDT [facility] Refill Request Amlodipine Last G provider office visit: 07/31/18 Pt due for f/u - refill denied Defer to PCP documented in this encounter Plan of Treatment Not on file documented as of this encounter Goals Goal Patient Goal Type Associated Problems Recent Progress Patient-Stated? Author Blood Pressure < 140/90 Blood Pressure 160/96( 024 8:13 AM EDT) No Kilo Wang MD documented as of this encounter Visit Diagnoses Not on filedocumented in this encounter Care Teams Oncologist Relationship Specialty Start Date End Date Dasha Sheppard PA-C [address] [address] PCP - General Family Practice 04/12/18 07/10/23 Kilo Wang MD Consulting Physician Neurology 08/30/16 12/01/21 Juan Haddad MD [address] [address] Otolaryngology 09/23/17 documented as of this encounter
--- OUTSIDE RECORDS SUMMARY | 2024-06-24 04:37 | XMS_ITS | Encounter Summary ---
Author Organization [facility] alth Address [address] [place] [address] Care Team Providers Care Call Center Trainer Name Role Phone Kilo Wang MD Unavailable [phone] Juan Haddad MD Unavailable [phone] Dasha Sheppard PA-C Primary Care Provider Reason for Visit * Reason Comments Refill Request Amlodipine Refused - Duplicate Encounter Details Date Type Department Care Team (Late st Contact Info) Description 06/04/2020 Refill [facility] [address] [address] Matthew Rushing MD [address] [place] [address] Refill Request (Amlodipine Refused - Duplicate) Social History Tobacco Use Types Packs/Day Years [...] 160/96( 024 8:13 AM EDT) No Kilo Wnag MD documented as of this encounter Visit Diagnoses Not on filedocumented in this encounter Care Teams Call Center Trainer Relationship Specialty Start Date End Date Dasha Sheppard PA-C [address] [address] PCP - General Family Practice 04/12/18 07/10/23 Kilo Wang MD Consulting Physician Neurology 08/30/16 12/01/21 Juan Haddad MD [address] [address] Otolaryngology 09/23/17 documented as of this encounter
--- OUTSIDE RECORDS SUMMARY | 2024-06-24 04:37 | XMS_ITS | Encounter Summary ---
Author Organization [facility] alth Address [address] [place] [address] Care Team Providers Care Outsewer Name Role Phone Kilo Wang MD Unavailable [phone] Juan Haddad MD Unavailable [phone] Mary Sheppard PA-C Primary Care Provider Reason for Referral * Test/Procedure/Other (Routine) - Closed Specialty Diagnoses / Procedures Referred By Contcarlie t Referred To Contact Radiology Diagnoses Acute pain of left shoulder Arthralgia of left acromioclavicular joint Procedures XR ACROMIOCLAVICULAR JOINTS BILATERAL W WO WEIGHTS Mary Sheppard PA-C [address] [address] Phone: tel: fax: Referral ID Status Reason Start Date Expiration Date Visits Re quested Visits Authorized [id number] Closed 04/15/2020 04/15/2021 1 1 Reason for Visit * Reason Comments Musculoskeletal Problem Left shoulder pa in. Onset:04/12/2020 Encounter Details Date Type Department Care Team (Latest Contact Info) Description 04/15/2020 11:40 AM EDT Office Visit [facility] Line [address] [facility], [address] [place] [address] Mary Sheppard PA-C [address] [address] Acute pain of left shoulder (Primary Dx); Arthralgia of left acromioclavicular joint Discharge Disposition: [...] Sign Reading Time Taken Comments Blood Pressure 128/80 04/15/2020 11:43 AM EDT Pulse 88 04/15/2020 11:43 AM EDT Temperature 36.6 ??C (97.9 ??F) 04/15/2020 11:43 AM E DT Respiratory Rate - - Oxygen Saturation - - Inhaled Oxygen Concentration - - Weight 108 kg (237 lb) 04/15/2020 11:43 AM EDT Height - - Body Mass Index 32.14 03/25/2020 1:44 PM EDT documented in this encounter Progress Notes * Mary Sheppard PA-C - 04/15/2020 11:39 AM EDT Subjective Patient roomed and information gathered by May Michel LPN. Robert Alexis Jr. is a 55 y.o. male who presents with chief complaint of Musculoskeletal Problem (Left shoulder pain. Onset:04/12/2020) who is here today for an office visit. Health Maintenance reviewed 04/15/2020 11:47 AM by May Michel LPN. 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 States that it is difficult to lift his arm and the area is tender to touch. C/o of associated numbness/tingling down LEFT arm. Denies any injury or incident that may have contributed to his symptoms. 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 States that he has also been hunting and climbing into his tree stand (ladder). Denies any pain in neck. Previous lowback pain has since resolved with treatment States that he took one dose of Advil and tried ice with minimal relief. ROS As above Future appointments already scheduled: No future appointments. Objective Vitals: 04/15/20 1143 BP: 128/80 BP Source: Right Arm Position: Sitting Cuff Size: Large Pulse: 88 Temp: 97.9 ??F (36.6 ??C) Weight: 108 kg (237 lb) TempSrc: Temporal Additional Vitals (.ambadditionalvitals) PPE WORN BY CLINICAL STAFF: Mask, Goggles/face shield, Gloves PPE WORN BY PROVIDER: mask, gloves and goggles TIME PROVIDER SPENT WITH PATIENT: 15+ MINS Body mass index is 32.14 kg/m??. Physical Exam Nursing note and vitals reviewed. Musculoskeletal: Comments: LEFT Upper Extremity: +exquisite tenderness of AC joint. Decreased ROM in all directions due to pain. No TTP of anterior shoulder joint, deltoid, bicep or triceps. FROM of elbow. NV intact and sensation grossly intact distally. Neurologic: He is alert and oriented to person, place, and time. Skin: Skin is warm and dry. Constitutional: He appears well-developed and well-nourished. Assessment and Plan 1. Acute pain of left shoulder - XR ACROMIOCLAVICULAR JOINTS BILATERAL W WO WEIGHTS; Future - predniSONE (DELTASONE) 20 MG tablet; Take 3 tablets daily x 3 days, 2 tablets daily x 3 days, 1 tablet daily x 4 days. Dispense: 19 tablet; Refill: 0 2. Arthralgia of left acromioclavicular joint - XR ACROMIOCLAVICULAR JOINTS BILATERAL W WO WEIGHTS; Future - predniSONE (DELTASONE) 20 MG tablet; Take [...] with food. Can take Tylenol as needed. Recommend applying ice 20-30 minutes 3-4 times per day Order placed for XR of AC joint with and without weights Discussed trial of PT if symptoms do not improve Will follow-up once results are received Return to office in 2 weeks if no better, sooner if worse. Robert verbalized understanding of above. Chart Review: Medication List reviewed / reconciled 04/15/2020 11:41 AM by MAY MICHEL. Allergy List reviewed 04/15/2020 by MAY MICHEL. Problem List reviewed 03/26/2020 by MARY SHEPPARD. Immunization List reviewed 03/23/2018 [...] as of this encounter Results * XR ACROMIOCLAVICULAR JOINTS [...] radiographic findings to suggest acromioclavicular sprain. Dictating Workstation: [address] us Mary Sheppard PA-C RIS DIAG IMAGING ORD ERABLES Final Result documented in this encounter Visit Diagnoses Diagnosis Acute pain of left shoulder- Primary Arthralgia of left acromioclavicular joint Pain in joint, shoulder region Acute pain of left shoulder Arthralgia of left acromioclavicular joint Pain in joint, shoulder region documented in this encounter Care Teams Outsewer Relationship Specialty Start Date End Date Mary Sheppard PA-C [address] [address] PCP - General Family Practice 04/12/18 07/10/23 Kilo Wang MD Consulting Physician Neurology 08/30/16 12/01/21 Juan Haddad MD [address] [address] Otolaryngology 09/23/17 documented as of this encounter
--- OUTSIDE RECORDS SUMMARY | 2024-06-24 04:37 | XMS_ITS | Encounter Summary ---
Author Organization [facility] alth Address [address] [place] [address] Care Team Providers Care Physical Therapy Assistant Name Role Phone Kilo Wang MD Unavailable [phone] Juan Haddad MD Unavailable [phone] Dasha Sheppard PA-C Primary Care Provider Reason for Referral * Test/Procedure/Other (Routine) - Closed Specialty Diagnoses / Procedures Referred By Contac t Referred To Contact Diagnoses Ascending aorta enlargement (CMS/HCC) Procedures ECHOCARDIOGRAM Avery Mcmillan MD [address] [place] [address] Phone: tel: fax: Referral ID Status Reason Start Date Expiration Date Visits Re quested Visits Authorized [id number] Closed 09/03/2019 01/01/2020 1 1 Reason for Visit * Test/Procedure/Other (Routine) - Closed Specialty Diagnoses / Procedures Referred By Contac t Referred To Contact Diagnoses Ascending aorta enlargement (CMS/HCC) Procedures ECHOCARDIOGRAM Avery Mcmillan MD [address] [place] [address] Phone: tel: fax: Referral ID Status Reason Start Date Expiration Date Visits Re quested Visits Authorized [id number] Closed 09/03/2019 01/01/2020 1 1 Encounter Details Date Type Department Care Team ([facility] Contact Info) Description 11/22/2019 2:30 PM EDT - 11/22/2019 11:59 PM EDT Hospital Encounter [address] [address] Avery Mcmillan MD [address] [place] [address] 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 90 tablet 11/21/2019 03/06/2020 sertraline (ZOLOFT) 100 MG tabletIndications :Anxiety Take 1 tablet by mouth daily. 30 tablet 3 03/27/2019 11/30/2019 documented as of this encounter Plan of Treatment Not on file documented as of this encounter Goals Goal Patient Goal Type Associated Problems Recent Progress Patient-Stated? Author Blood Pressure < 140/90 Blood Pressure 160/96( 024 8:13 AM EDT) No Kilo Wang MD documented as of this encounter Procedures Procedure Name Priority Date/Time Associated Diagnosis Comments ECHOCARDIOGRAM Routine 11/22/2019 3:18 PM EDT Ascending aorta enlargement (CMS/HCC) documented in this encounter Results * ECHOCARDIOGRAM (11/22/2019 3:18 PM EDT) EJECTION FRACTION (%) 60 % [facility] Anatomical Region Laterality Modality Chest ECHO 11/22/2019 2:43 PM EDT Narrative 11/22/2019 10:08 PM EDT ? Non-invasive Cardiology [address] [facility], [place] [address] ? Echocardiography Services ?Adult Echo Report Name: CARTER GOMES JR. ?Study Date: 11/22/2019 02:43 PM ? BP: 122/78 mmHg ?Patient Location: [facility] ? HR: 85 : 1965 ? Gender: Male ?Height: 72 in Age: 54 yrs ? Weight: 234 lb ?Ordering Physician: AVERY MCMILLAN ?Assembler Carbon Brushes: Ollie Grace RCS Reason For Study: reassess asc aorta and aortic root ?BSA: 2.3 m2 History: HTN, ASTHMA, OBESITY INTERPRETATION SUMMARY Est. LV Ejection Fraction is 60-65%. The aortic root dimension is increased. The ascending aorta dimension is increased. STUDY DETAILS: ?? Complete Echocardiogram ([id number]). FINDINGS: LEFT VENTRICLE: ?? Left ventricular size is normal. LV wall thickness is mildly increased. Global systolic LV function is normal. There is no evidence for LV regional wall motion abnormality. Est. LV Ejection Fraction is 60-65%. There is no obvious thrombus seen in the left ventricle. Normal diastolic function. LEFT ATRIUM: ?? Left atrial size is normal. MITRAL VALVE: ?? Mild mitral valve thickening. No mitral stenosis. No mitral regurgitation. AORTIC VALVE: ?? The aortic valve appears functionally tricuspid. No aortic stenosis. No aortic insufficiency. RIGHT VENTRICLE: ?? Right ventricular size is normal. RV function is normal. TAPSE = 2.1 cm (Norm 1.7-3.1). RIGHT ATRIUM: ?? Right atrial size is normal. TRICUSPID VALVE: ?? The tricuspid valve appears structurally normal. There is no evidence for tricuspid valve stenosis. No evidence for tricuspid regurgitation. The estimated RVSP could not be accurately assessed. PULMONIC VALVE: ?? The pulmonic valve is not well visualized. There is no evidence for pulmonic stenosis. There is evidence for trace pulmonic insufficiency. GREAT VESSELS: ?? The aortic root dimension is increased. Aortic Root dimension = 4.4 cm (Norm 3.1 - 3.7). The ascending aorta dimension is increased. Ascending Aorta dimension = 3.5 cm (Norm 2.6 - 3.4). IVC size is normal. IVC Dimension: 1.4 cm (Norm </= 2.1). IVC collapses > 50%. Estimated RAP = 3 mmHg. PERICARDIUM: ?? No evidence of pericardial effusion. MMode/2D Measurements & Calculations IVSd: 1.3 cm ? LVIDd: 4.4 cm ? Ao Root: 4.4 cm ?Asc Ao: 3.5 cm ? LVIDs: 3.1 cm ? LVPWd: 1.3 cm ? Ao Root Index: 1.9 ? Asc Ao Index: 1.5 ? IVC: 1.4 cm ?LA Vol Index: 20.6 ml/m2 ? LVIDd Index.: 1.9 ?RVDd (A4c base): 2.1 cm ?TAPSE: 2.1 cm ? RA Vol. Index: 7.1 ml/m2 Time Measurements MV dec time: 0.18 sec Doppler Measurements & Calculations MV E: 97.2 cm/sec ?MV E': 7.5 cm/sec ? MV E/E': 13.0 MV A: 73.1 cm/sec MV E/A: 1.3 __ Procedure Note Mynor Webster DO - 11/22/2019 Non-invasiveCardiology [address] [place] [address] [facility] Adult Echo Report Name: KAM GOMESBRANDIE Taveras JR. Study Date: 11/22/2019 02:43 PMBP: 122/78 mmHg Patient Location: [facility]: : 1965 Gender: MaleHeight: 72 in Age: 54 yrsWeight: 234 lb Ordering Physician: Betsey MCMILLANographer: Ollie Grace RCS Reason For Study: reassess asc aorta and aortic rootBSA: 2.3 m2 History: HTN, ASTHMA, OBESITY INTERPRETATION SUMMARY Est. LV Ejection Fraction is 60-65%. The aortic root dimension is increased. The ascending aorta dimension is increased. STUDY DETAILS: Complete Echocardiogram ([id number]). FINDINGS: LEFT VENTRICLE: Left ventricular size is normal. LV wall thickness ismildly increased. Global systolic LV function is normal. There is no evidence for LV regional wall motion abnormality. Est.LV Ejection Fraction is 60-65%. There is no obvious thrombus seen in the left ventricle. Normal diastolic function. LEFT ATRIUM: Left atrial size is normal. MITRAL VALVE: Mild mitral valve thickening. No mitral stenosis. Nomitral regurgitation. AORTIC VALVE: The aortic valve appears functionally tricuspid. No aorticstenosis. No aortic insufficiency. RIGHT VENTRICLE: Right ventricular size is normal. RV function isnormal. TAPSE = 2.1 cm (Norm 1.7-3.1). RIGHT ATRIUM: Right atrial size is normal. TRICUSPID VALVE: The tricuspid valve appears structurally normal. Thereis no evidence for tricuspid valve stenosis. No evidence for tricuspid regurgitation. The estimated RVSP could not beaccurately assessed. PULMONIC VALVE: The pulmonic valve is not well visualized. There is noevidence for pulmonic stenosis. There is evidence for trace pulmonic insufficiency. GREAT VESSELS: The aortic root dimension is increased. Aortic Rootdimension = 4.4 cm (Norm 3.1 - 3.7). The ascending aorta dimension is increased. Ascending Aorta dimension = 3.5 cm (Norm 2.6- 3.4). IVC size is normal. IVC Dimension: 1.4 cm (Norm </= 2.1). IVC collapses > 50%. Estimated RAP = 3 mmHg. PERICARDIUM: No evidence of pericardial effusion. MMode/2D Measurements & Calculations IVSd: 1.3 cm LVIDd: 4.4 cm Ao Root: 4.4 cmAsc Ao: 3.5 cm LVIDs: 3.1 cm LVPWd: 1.3 cm Ao Root Index: 1.9 Asc Ao Index: 1.5 IVC: 1.4 cmLA Vol Index: 20.6 ml/m2 LVIDd Index.: 1.9 RVDd (A4c base):2.1 cm TAPSE: 2.1 cm RA Vol. Index: 7.1 ml/m2 Time Measurements MV dec time: 0.18 sec Doppler Measurements & Calculations MV E: 97.2 cm/sec MV E': 7.5 cm/secMV E/E': 13.0 MV A: 73.1 cm/sec MV E/A: 1.3 __ us Avery Mcmillan MD LG RIS ECHO ORDERABLES Final Re sult documented in this encounter Visit Diagnoses Diagnosis Ascending aorta enlargement (CMS/HCC) Other specified disorders of arteries and arterioles documented in this encounter Care Teams Physical Therapy Assistant Relationship Specialty Start Date End Date Dasha Sheppard PA-C [address] [address] PCP - General Family Practice 04/12/18 07/10/23 Kilo Wang MD Consulting Physician Neurology 08/30/16 12/01/21 Juan Haddad MD [address] [address] Otolaryngology 09/23/17 documented as of this encounter
--- OUTSIDE RECORDS SUMMARY | 2024-06-24 04:37 | XMS_ITS | Encounter Summary ---
Author Organization [facility] alth Address [address] [facility] [place] [address] Care Team Providers Care Package Maker Name Role Phone Kilo Wang MD Unavailable [phone] Juan Haddad MD Unavailable Dasha Sheppard PA-C Primary Care Provider Reason for Visit * Reason Onset Date Comments Refill Request 03/06/2020 Encounter Details Date Type Department Care Team (Late st Contact Info) Description 03/06/2020 Refill Family [facility] [address] [facility], [address] [place] [phone] Dasha Sheppard PA-C [address] [place] [address] [place] [address] Refill Request Social History Tobacco Use Types [...] on filedocumented in this encounter Care Teams Package Maker Relationship Specialty Start Date End Date Dasha Sheppard PA-C [address] [address] PCP - General Family Practice 04/12/18 07/10/23 Kilo Wnag MD Consulting Physician Neurology 08/30/16 12/01/21 Juan Haddad MD [address] [address] Otolaryngology 09/23/17 documented as of this encounter
--- OUTSIDE RECORDS SUMMARY | 2024-06-24 04:37 | XMS_ITS | Encounter Summary ---
Author Organization [facility] alth Address [address] [facility] [place] [address] Care Team Providers Care Medical Program Specialist Name Role Phone Kilo Wang MD Unavailable [phone] Juan Haddad MD Unavailable [phone] Dasha Sheppard PA-C Primary Care Provider Reason for Visit * Reason Onset Date Comments Tick Removal 04/11/2019 fyi Encounter Details Date Type Department Care Team (Late st Contact Info) Description 04/11/2019 Nurse Triage Family Medicine [place] [address] [facility], [address] [place] [phone] Dasha Sheppard PA-C [address] [place] [address] [place] [address] Tick Removal (fyi) Social History Tobacco Use Types Packs/Day [...] Telephone Encounter - Dasha Sheppard PA-C - 04/11/2019 4:20 PM EDT Note reviewed * Telephone Encounter - Catherine Phillips LPN - 04/11/2019 4:07 PM EDT Patient phoned stating he has a tick on the left side of abdomin under arm. Patient states tried toremove tick but couldn't get head. Patient states area is swollen and he's had lyme disease in the past. Unfortunately, we don't have any available appointments this evening. Patient will go to urgent care. Reason for Disposition ??? Can't remove tick's head that was broken off in the skin (after using Care Advice) Additional Information ??? Negative: Not a tick bite ??? Negative: Patient sounds very sick or weak to the triager Protocols used: TICK BITE-A-OH documented in this encounter Plan of Treatment Not on file documented as of this encounter Goals Goal Patient Goal Type Associated Problems Recent Progress Patient-Stated? Author Blood Pressure < 140/90 Blood Pressure 160/96( 024 8:13 AM EDT) No Kilo Wang MD documented as of this encounter Visit Diagnoses Not on filedocumented in this encounter Care Teams Medical Program Specialist Relationship Specialty Start Date End Date Dasha Sheppard PA-C [address] [address] PCP - General Family Practice 04/12/18 07/10/23 Kilo Wang MD Consulting Physician Neurology 08/30/16 12/01/21 Juan Haddad MD [address] [address] Otolaryngology 09/23/17 documented as of this encounter
--- OUTSIDE RECORDS SUMMARY | 2024-06-24 04:37 | XMS_ITS | Encounter Summary ---
Author Organization [facility] alth Address [address] [place] [address] Care Team Providers Care Cigarette Making Machine Hopper Feeder Name Role Phone Kilo Wang MD Unavailable [phone] Juan Haddad MD Unavailable [phone] Dasha Sheppard-C Primary Care Provider Reason for Visit * Test/Procedure/Other (Routine) - Closed Specialty Diagnoses / Procedures Referred By Contac t Referred To Contact Radiology Diagnoses Thoracic aortic aneurysm without rupture (CMS/HCC) Procedures CT ANGIOGRAM CHEST Matthew Rushing MD [address] [place] [address] Phone: tel: fax: Referral ID Status Reason Start Date Expiration Date Visits Re quested Visits Authorized [id number] Closed 11/29/2019 05/27/2020 1 1 Encounter Details Date Type Department Care Team (Late st Contact Info) Description 12/18/2019 9:30 AM EDT Ancillary Procedure [facility] [address] [place] [address] Matthew Rushing MD [address] [place] [address] Thoracic aortic aneurysm without rupture (CMS/HCC) Discharge [...] Name Priority Date/Time Associated Diagnosis Comments CT ANGIOGRAM CHEST Routine 12/18/2019 9: 44 AM EDT Thoracic aortic aneurysm without rupture (CMS/HCC) documented in this encounter Results * CT ANGIOGRAM CHEST [...] and MPR reconstructions. All exams performed by [facility] utilize one or more of the [...] Annulus:30.3 x 24.4 mm with an average rhhyfjvp93.2 mm. Sinus of Valsalva: 50.2 x 45.2 [...] and MPR reconstructions. All exams performed by [facility] utilize one or more of the [...] Annulus:30.3 x 24.4 mm with an average wcltpmyk25.2 mm. Sinus of Valsalva: 50.2 x 45.2 [...] Intravenous, IMG ONCE PRN, Other, Starting on Tue12/18/19 at 0921, For 1 dose, Monitor site closely as product is a VESICANT. Given 12/18/2019 9:21 AM EDT 100 mLs right antecubital documented in this encounter Care Teams Cigarette Making Machine Hopper Feeder Relationship Specialty Start Date End Date Dasha Sheppard PA-C [address] [address] PCP - General Family Practice 04/12/18 07/10/23 Kilo Wang MD Consulting Physician Neurology 08/30/16 12/01/21 Juan Haddad MD [address] [address] Otolaryngology 09/23/17 documented as of this encounter
--- OUTSIDE RECORDS SUMMARY | 2024-06-24 04:37 | XMS_ITS | Encounter Summary ---
Author Organization [facility] alth Address [address] [facility] [address] Care Team Providers Care Technical Supervisor Name Role Phone Kilo Wang MD Unavailable [phone] Juan Haddad MD Unavailable [phone] Dasha Sheppard PA-C Primary Care Provider Trey Jennings MD Unavailable +[phone] Guerita Elliott-C Unavailable +[phone] Matthew Rushing MD Unavailable [phone] Matthew Rushing MD Unavailable +[phone] Matthew Rushing MD Unavailable Matthew Rushing MD Unavailable +[phone] Matthew Rushing MD Unavailable +[phone] Matthew Rushing MD Unavailable +[phone] Matthew Rushing MD Unavailable +[phone] Matthew Rushing MD Unavailable +[phone] Matthew Rushing MD Unavailable +[phone] Matthew Rushing MD Unavailable +[phone] Matthew Rushing MD Unavailable +[phone] Matthew Rushing MD Unavailable +[phone] Matthew Rushing MD Unavailable +[phone] Matthew Rushing MD Unavailable +[phone] Trey Jennings MD Unavailable +4 -5 Guerita Elliott PA-C Unavailable +4 -5 Matthew Rushing MD Unavailable +[phone] Guerita Elliott J PA-C Unavailable +4 -5 Matthew Rushing MD Unavailable +[phone] Matthew Rushing MD Unavailable +[phone] Guerita Elliott PA-C Unavailable +4 -5 Guerita Elliott PA-C Unavailable +4 -[phone] Matthew Rushing MD Unavailable +[phone] Guerita Elliott PA-C Unavailable +4 -5 Matthew Rushing MD Unavailable +[phone] Matthew Rushing MD Unavailable +[phone] Guerita Elliott PA-C Unavailable +4 -5 Matthew Rushing MD Unavailable +[phone] Guerita Elliott PA-C Unavailable +4 -4995 Matthew Rushing MD Unavailable +[phone] Guerita Elliott PA-C Unavailable +4 -4995 Guerita Elliott PA-C Unavailable +[phone] Matthew Rushing MD Unavailable +[phone] Guerita Elliott PA-C Unavailable +4 -4995 Matthew Rushing MD Unavailable +[phone] Guerita Elliott PA-C Unavailable +[phone] Matthew Rushing MD Unavailable +[phone] [place], Guerita J PA-C Unavailable +4 -5 Matthew Rushing MD Unavailable +[phone] Matthew Rushing MD Unavailable +[phone] Guerita Elliott PA-C Unavailable +4 -4995 Matthew Rushing MD Unavailable +[phone] Guerita Elliott J PA-C Unavailable +4 -4995 Guerita Elliott J PA-C Unavailable +4 -4995 Matthew Rushing MD Unavailable +[phone] Matthew Rushing MD Unavailable +[phone] Guerita Elliott J PA-C Unavailable +4 -4995 Guerita Elliott Kim PA-C Unavailable +[phone] Matthew Rushing MD Unavailable +[phone] Matthew Rushing MD Unavailable +[phone] Guerita Elloitt Kim PA-C Unavailable +[phone] Guerita Elliott Kim PA-C Unavailable +4 -4995 Matthew Rushing MD Unavailable +[phone] Matthew Rushing MD Unavailable +[phone] Guerita Elliott Kim PA-C Unavailable +4 -4995 [place] Alvarez PA-C Unavailable +[phone] Matthew Rushing MD Unavailable +[phone] Matthew Rushing MD Unavailable Guerita Elliott J PA-C Unavailable +4 -4995 EarlLilliGuerita J PA-C Unavailable +[phone] Matthew Rushing MD Unavailable +[phone] Guerita Elliott Kim PA-C Unavailable +[phone] Matthew Rushing MD Unavailable +[phone] Matthew Rushing MD Unavailable +[phone] [place] Guerita J PA-C Unavailable +4 -5 Lilli Elliotther J PA-C Unavailable +4 -4995 Matthew Rushing MD Unavailable +[phone] Matthew Rushing MD Unavailable Earl Guerita J PA-C Unavailable +4 -4995 [place] Guerita J PA-C Unavailable +4 -4995 Matthew Rushing MD Unavailable +[phone] Matthew Rushing MD Unavailable +[phone] Guerita Elliott PA-C Unavailable +4 -5 Matthew Rushing MD Unavailable +[phone] EarlGuerita J PA-C Unavailable +4 -4995 Matthew Rushing MD Unavailable +[phone] EarlGuerita pino J PA-C Unavailable +4 -4995 Guerita Elliott J PA-C Unavailable +4 -4995 Matthew Rushing MD Unavailable +[phone] Matthew Rushing MD Unavailable +[phone] Guerita Elliott J PA-C Unavailable +4 -4995 EarlGuerita pino J PA-C Unavailable +[phone] Matthew Rushing MD Unavailable +[phone] Matthew Rushing MD Unavailable +[phone] Lilli Elliotther J PA-C Unavailable +[phone] Matthew Rushing MD Unavailable +[phone] Guerita Elliott PA-C Unavailable +4 -4995 Matthew Rushing MD Unavailable +[phone] Lilli Elliotther Alvarez PA-C Unavailable +4 -5 Earl Guerita J PA-C Unavailable +4 -5 Matthew Rushing MD Unavailable +[phone] Matthew Rushing MD Unavailable +[phone] Earl Guerita J PA-C Unavailable +4 -4995 [place] Guerita J PA-C Unavailable +[phone] Matthew Rushing MD Unavailable +[phone] Earl Guerita Alvarez PA-C Unavailable +4 -5 Matthew Rushing MD Unavailable +[phone] Matthew Rushing MD Unavailable +[phone] Earl Guerita Alvarez PA-C Unavailable +4 -5 Matthew Rushing MD Unavailable Earl Guerita Alvarez PA-C Unavailable +[phone] Matthew Rushing MD Unavailable +[phone] Guerita Elliott PA-C Unavailable +4 -4995 Guerita Elliott PA-C Unavailable +544 [phone] Matthew Rushing MD Unavailable +[phone] Matthew Rushing MD Unavailable +[phone] Guerita Elliott PA-C Unavailable +544 [phone] Matthew Rushing MD Unavailable +[phone] Guerita Elliott PA-C Unavailable +4 -4995 Matthew Rushing MD Unavailable +[phone] Guerita Elliott PA-C Unavailable +544 [phone] Guerita Elliott PA-C Unavailable +544 -[phone] Matthew Rushing MD Unavailable +[phone] Guerita Elliott-C Unavailable +4 -4995 Matthew Rushing MD Unavailable +[phone] Guerita Elliott PA-C Unavailable +4 -4995 Matthew Rushing MD Unavailable +[phone] Guerita Elliott PA-C Unavailable +4 -4995 Matthew Rushing MD Unavailable +[phone] Guerita Elliott-C Unavailable +[phone] Matthew Rushing MD Unavailable +[phone] Guerita Elliott PA-C Unavailable +[phone] Matthew Rushing MD Unavailable +[phone] Txfr Provider [facility], Temporary Primary Care Provider Matthew Rushing MD Unavailable +[phone] Guerita Elliott-C Unavailable +[phone] Matthew Rushing MD Unavailable +[phone] Guerita Elliott PA-C Unavailable +4 -4995 Matthew Rushing MD Unavailable +[phone] Guerita Elliott-C Unavailable +4 -4995 Guerita Elliott PA-C Unavailable +[phone] Matthew Rushing MD Unavailable Guerita Elliott-C Unavailable +[phone] Matthew Rushing MD Unavailable +[phone] Matthew Rushing MD Unavailable +[phone] Guerita Elliott-C Unavailable +[phone] Matthew Rushing MD Unavailable +[phone] Guerita Elliott PA-C Unavailable +4 -5 Guerita Elliott Kim PA-C Unavailable +4 -499 Matthew Rushing MD Unavailable +[phone] Matthew Rushing MD Unavailable +[phone] Guerita Elliott Kim PA-C Unavailable +4 -4995 Matthew Rushing MD Unavailable +[phone] Guerita Elliott PA-C Unavailable +[phone] Matthew Rushing MD Unavailable +[phone] Guerita Elliott PA-C Unavailable +4 -4995 Matthew Rushing MD Unavailable +[phone] Guerita Elliott PA-C Unavailable +4 -4995 Guerita Elliott J PA-C Unavailable +4 -4995 Matthew Rushing MD Unavailable Matthew Rushing MD Unavailable +[phone] Guerita Elliott Kim PA-C Unavailable +4 -4995 Matthew Rushing MD Unavailable +[phone] Guerita Elliott Kim PA-C Unavailable +4 -4995 Matthew Rushing MD Unavailable +[phone] Guerita Elliott PA-C Unavailable +4 -4995 Guerita Elliott Kim PA-C Unavailable +[phone] Matthew Rushing MD Unavailable +[phone] Matthew Rushing MD Unavailable +[phone] Guerita Elliott J PA-C Unavailable +4 -4995 EarlGuerita Kim PA-C Unavailable +4 -4995 Matthew Rushing MD Unavailable +[phone] Guerita Elliott PA-C Unavailable +4 -4995 Matthew Rushing MD Unavailable +[phone] Guerita Elliott PA-C Unavailable +4 -4995 Matthew Rushing MD Unavailable +[phone] Matthew Rushing MD Unavailable +[phone] Guerita Elliott PA-C Unavailable +[phone] Matthew Del Toro MD Primary Care Provider [phone] Guerita Elliott PA-C Unavailable +[phone] Matthew Rushing MD Unavailable +[phone] Guerita Elliott PA-C Unavailable +[phone] Matthew Rushing MD Unavailable +[phone] Guerita Elliott PA-C Unavailable +[phone] Matthew Rushing MD Unavailable +[phone] Guerita Elliott PA-C Unavailable +[phone] Matthew Rushing MD Unavailable +[phone] Guerita Elliott PA-C Unavailable +[phone] Matthew Rushing MD Unavailable +[phone] Matthew Rushing MD Unavailable Guerita Elliott PA-C Unavailable +[phone] Guerita Elliott PA-C Unavailable +124 [phone] Matthew Rushing MD Unavailable +[phone] Matthew Rushing MD Unavailable +[phone] Guerita Elliott PA-C Unavailable +[phone] Matthew Rushing MD Unavailable +[phone] Guerita Elliott PA-C Unavailable +[phone] Guerita Elliott PA-C Unavailable +[phone] Matthew Rushing MD Unavailable +[phone] Matthew Rushing MD Unavailable +[phone] Guerita Elliott PA-C Unavailable Guerita Elliott PA-C Unavailable Matthew Rushing MD Unavailable +[phone] Guerita Elliott PA-C Unavailable Matthew Rushing MD Unavailable +[phone] Matthew Rushing MD Unavailable +[phone] Guerita Elliott PA-C Unavailable Matthew Rushing MD Unavailable +[phone] Guerita Elliott PA-C Unavailable Reason for Visit * Reason Comments Refill Request Encounter Details Date Type Department Care Team (Late st Contact Info) Description 01/11/2020 Refill Family [facility] Line [address] [facility], [address] [place] [address] Dasha Sheppard PA-C [address] [place] [id number] Refill Request Social History Tobacco Use Types [...] Functional Status documented as of this encounter Plan of Treatment Not on file documented as of this encounter Goals Goal Patient Goal Type Associated Problems Recent Progress Patient-Stated? Author Blood Pressure < 140/90 Blood Pressure 160/96( 024 8:13 AM EDT) Kilo Mora MD documented as of this encounter Visit Diagnoses Diagnosis Anxiety Anxiety state, unspecified documented in this encounter Additional Health Concerns Infection Onset Date Last Indicated Resolved Time Symptomatic COVID PUI 06/07/2020 06/07/20202019 5:59 AM EST Asymptomatic COVID PUI 06/07/2020 06/07/202006/10 5:59 AM EST Symptomatic COVID PUI 03/26/2021 03/27/20212020 7:16 PM EDT COVID-19 03/27/2021 03/27/2021 04/17/2021 8:34 PM EDT documented as of this encounter Care Teams Technical Supervisor Relationship Specialty Start Date End Date Dasha Sheppard PA-C [address] [place] [address] PCP - General Family Practice 04/12/18 07/10/23 Txfr Provider Family Medicine [facility] [address] [facility] [address] [place] [address] PCP - General Family Practice 07/11/23 12/11/23 Matthew Del Toro MD [address] [facility] [address] [place] [address] PCP - General Family Practice 12/12/23 Kilo Wang MD Consulting Physician Neurology 08/30/16 12/01/21 [place] [address] [place] [address] [place] [address] Otolaryngology 09/23/17 Trey Jennings MD [address] [facility] [address] [place] [address] Consulting Physician Cardiothoracic Surgery 07/13/21 Guerita Elliott PA-C 540 [facility] [address] [place] [address] [facility] Specialist Cardiothoracic Surgery 01/03/22 06/27/22 Matthew Rushing MD [address] [place] [address] [facility] Specialist Cardiology - General 03/07/22 03/28/22 Matthew Rushing MD [address] [place] [address] [facility] Specialist Cardiology - General 04/04/22 04/04/22 Matthew Rushing MD [address] [place] [address] [facility] Specialist Cardiology - General 04/11/22 04/11/22 Matthew Rushing MD [address] [place] [address] [facility] Specialist Cardiology - General 04/18/22 04/18/22 Matthew Rushing MD [address] [place] [address] [facility] Specialist Cardiology - General 04/25/22 04/25/22 Matthew Rushing MD [address] [place] [address] [facility] Specialist Cardiology - General 05/02/22 05/02/22 Matthew Rushing MD [address] [place] [address] [facility] Specialist Cardiology - General 05/09/22 05/09/22 Matthew Rushing MD [address] [place] [address] [facility] Specialist Cardiology - General 05/16/22 05/16/22 Matthew Rushing MD [address] [place] [address] [facility] Specialist Cardiology - General 05/23/22 05/23/22 Matthew Rushing MD [address] [place] [address] [facility] Specialist Cardiology - General 05/30/22 05/30/22 Matthew Rushing MD [address] [place] [address] [facility] Specialist Cardiology - General 06/06/22 06/06/22 Matthew Rushing MD [address] [place] [address] [facility] Specialist Cardiology - General 06/13/22 06/13/22 Matthew Rushing MD [address] [place] [address] [facility] Specialist Cardiology - General 06/20/22 06/20/22 Matthew Rushing MD [address] [place] [address] [facility] Specialist Cardiology - General 06/27/22 06/27/22 Trey Jennings MD [address] [place] [address] [facility] Specialist Cardiothoracic Surgery 06/27/22 Guerita Elliott PA-C [address] [address] [facility] Specialist Cardiothoracic Surgery 07/04/22 3 Matthew Rushing MD [address] [place] [address] [facility] Specialist Cardiology - General 07/04/22 07/04/22 Guerita Elliott PA-C [address] [address] [facility] Specialist Cardiothoracic Surgery 07/11/22 3 Matthew Rushing MD [address] [place] [address] [facility] Specialist Cardiology - General 07/11/22 07/11/22 Matthew Rushing MD [address] [place] [address] [facility] Specialist Cardiology - General 07/18/22 07/18/22 Guerita Elliott PA-C [address] [address] [facility] Specialist Cardiothoracic Surgery 07/18/22 3 Guerita Elliott PA-C [address] [address] [facility] Specialist Cardiothoracic Surgery 07/25/22 07/25/22 Matthew Rushing MD [address] [place] [address] [facility] Specialist Cardiology - General 07/25/22 07/25/22 Guerita Elliott PA-C [address] [address] [facility] Specialist Cardiothoracic Surgery 08/01/22 3 Matthew Rushing MD [address] [place] [address] [facility] Specialist Cardiology - General 08/01/22 08/01/22 Matthew Rushing MD [address] [place] [address] [facility] Specialist Cardiology - General 08/08/22 08/08/22 Guerita Elliott PA-C [address] [address] [facility] Specialist Cardiothoracic Surgery 08/08/22 3 Matthew Rushing MD [address] [place] [address] [facility] Specialist Cardiology - General 08/15/22 08/15/22 Guerita Elliott PA-C [address] [address] [facility] Specialist Cardiothoracic Surgery 08/15/22 3 Matthew Rushing MD [address] [place] [address] [facility] Specialist Cardiology - General 08/22/22 08/22/22 Guerita Elliott PA-C [address] [place] [address] [facility] Specialist Cardiothoracic Surgery 08/22/22 08/22/22 Guerita Elliott PA-C [address] [address] [facility] Specialist Cardiothoracic Surgery 08/29/22 3 Matthew Rushing MD [address] [place] [address] [facility] Specialist Cardiology - General 08/29/22 08/29/22 Guerita Elliott PA-C [address] [address] [facility] Specialist Cardiothoracic Surgery 09/05/22 3 Matthew Rushing MD [address] [place] [address] [facility] Specialist Cardiology - General 09/05/22 09/05/22 Guerita Elliott PA-C [address] [place] [address] [facility] Specialist Cardiothoracic Surgery 09/12/22 3 Matthew Rushing MD [address] [place] [address] [facility] Specialist Cardiology - General 09/12/22 09/12/22 Guerita Elliott PA-C [address] [address] [facility] Specialist Cardiothoracic Surgery 09/19/22 09/19/22 Matthew Rushing MD [address] [place] [address] [facility] Specialist Cardiology - General 09/19/22 09/19/22 Matthew Rushing MD [address] [place] [address] [facility] Specialist Cardiology - General 09/26/22 09/26/22 Guerita Elliott PA-C [address] [address] [facility] Specialist Cardiothoracic Surgery 09/26/22 09/26/22 Matthew Rushing MD [address] [place] [address] [facility] Specialist Cardiology - General 10/03/22 10/03/22 Guerita Elliott PA-C [address] [address] [facility] Specialist Cardiothoracic Surgery 10/03/22 3 Guerita Elliott PA-C [address] [address] [facility] Specialist Cardiothoracic Surgery 10/10/22 3 Matthew Rushing MD [address] [place] [address] [facility] Specialist Cardiology - General 10/10/22 10/10/22 Matthew Rushing MD [address] [place] [address] [facility] Specialist Cardiology - General 10/17/22 10/17/22 Guerita Elliott PA-C [address] [address] [facility] Specialist Cardiothoracic Surgery 10/17/22 3 Guerita Elliott PA-C [address] [address] [facility] Specialist Cardiothoracic Surgery 10/24/22 10/24/22 Matthew Rushing MD [address] [place] [address] [facility] Specialist Cardiology - General 10/24/22 10/24/22 Matthew Rushing MD [address] [place] [address] [facility] Specialist Cardiology - General 10/31/22 10/31/22 Guerita Elliott PA-C [address] [address] [facility] Specialist Cardiothoracic Surgery 10/31/22 3 Guerita Elliott PA-C [address] [address] [facility] Specialist Cardiothoracic Surgery 11/07/22 3 Matthew Rushing MD [address] [place] [address] [facility] Specialist Cardiology - General 11/07/22 11/07/22 Matthew Rushing MD [address] [place] [address] [facility] Specialist Cardiology - General 11/14/22 11/14/22 Guerita Elliott PA-C [address] [address] [facility] Specialist Cardiothoracic Surgery 11/14/22 3 Guerita Elliott PA-C [address] [address] [facility] Specialist Cardiothoracic Surgery 11/21/22 11/21/22 Matthew Rushing MD [address] [place] [address] [facility] Specialist Cardiology - General 11/21/22 11/21/22 Matthew Rushing MD [address] [place] [address] [facility] Specialist Cardiology - General 11/28/22 11/28/22 Guerita Elliott PA-C [address] [address] [facility] Specialist Cardiothoracic Surgery 11/28/22 3 Guerita Elliott PA-C [address] [address] [facility] Specialist Cardiothoracic Surgery 12/05/22 3 Matthew Rushing MD [address] [place] [address] [facility] Specialist Cardiology - General 12/05/22 12/05/22 Guerita Elliott PA-C [address] [address] [facility] Specialist Cardiothoracic Surgery 12/12/22 3 Matthew Rushing MD [address] [place] [address] [facility] Specialist Cardiology - General 12/12/22 12/12/22 Matthew Rushing MD [address] [place] [address] [facility] Specialist Cardiology - General 12/19/22 12/19/22 Guerita Elliott PA-C [address] [address] [facility] Specialist Cardiothoracic Surgery 12/19/22 12/19/22 Guerita Elliott PA-C [address] [address] [facility] Specialist Cardiothoracic Surgery 12/26/22 12/26/22 Matthew Rushing MD [address] [place] [address] [facility] Specialist Cardiology - General 12/26/22 12/26/22 Matthew Rushing MD [address] [place] [address] [facility] Specialist Cardiology - General 01/02/23 01/02/23 Guerita Elliott PA-C [address] [address] [facility] Specialist Cardiothoracic Surgery 01/02/23 3 Guerita Elliott PA-C [address] [address] [facility] Specialist Cardiothoracic Surgery 01/09/23 3 Matthew Rushing MD [address] [place] [address] [facility] Specialist Cardiology - General 01/09/23 01/09/23 Matthew Rushing MD [address] [place] [address] [facility] Specialist Cardiology - General 01/16/23 01/16/23 Guerita Elliott PA-C [address] [address] [facility] Specialist Cardiothoracic Surgery 01/16/23 3 Matthew Rushing MD [address] [place] [address] [facility] Specialist Cardiology - General 01/23/23 01/23/23 Guerita Elliott PA-C [address] [address] [facility] Specialist Cardiothoracic Surgery 01/23/23 01/23/23 Matthew Rushing MD [address] [place] [address] [facility] Specialist Cardiology - General 01/30/23 01/30/23 Guerita Elliott PA-C [address] [address] [facility] Specialist Cardiothoracic Surgery 01/30/23 3 Guerita Elliott PA-C [address] [address] [facility] Specialist Cardiothoracic Surgery 02/06/23 3 Matthew Rushing MD [address] [place] [address] [facility] Specialist Cardiology - General 02/06/23 02/06/23 Matthew Rushing MD [address] [place] [address] [facility] Specialist Cardiology - General 02/13/23 02/13/23 Guerita Elliott PA-C [address] [address] [facility] Specialist Cardiothoracic Surgery 02/13/23 3 Guerita Elliott PA-C [address] [address] [facility] Specialist Cardiothoracic Surgery 02/20/23 02/20/23 Matthew Rushing MD [address] [place] [address] [facility] Specialist Cardiology - General 02/20/23 02/20/23 Matthew Rushing MD [address] [place] [address] [facility] Specialist Cardiology - General 02/27/23 02/27/23 Guerita Elliott PA-C [address] [address] [facility] Specialist Cardiothoracic Surgery 02/27/23 3 Matthew Rushing MD [address] [place] [address] [facility] Specialist Cardiology - General 03/06/23 03/06/23 Guerita Elliott PA-C [address] [place] [address] [facility] Specialist Cardiothoracic Surgery 03/06/23 3 Matthew Rushing MD [address] [place] [address] [facility] Specialist Cardiology - General 03/13/23 03/13/23 Guerita Elliott PA-C [address] [place] [address] [facility] Specialist Cardiothoracic Surgery 03/13/23 3 Guerita Elliott PA-C [address] [address] [facility] Specialist Cardiothoracic Surgery 03/20/23 3 Matthew Rushing MD [address] [place] [address] 33956 [facility] Specialist Cardiology - General 03/20/23 03/20/23 Matthew Rushing MD [address] [place] [address] 15649 [facility] Specialist Cardiology - General 03/27/23 03/27/23 Guerita Elliott PA-C [address] [address] [facility] Specialist Cardiothoracic Surgery 03/27/23 3 Guerita Elliott PA-C [address] [place] [address] 91336 [facility] Specialist Cardiothoracic Surgery 04/03/23 Matthew Rushing MD [address] [place] [address] 63231 [facility] Specialist Cardiology - General 04/03/23 04/03/23 Guerita Elliott PA-C [address] [place] [address] 86140 [facility] Specialist Cardiothoracic Surgery 04/10/23 Matthew Rushing MD [address] [place] [address] [phone] [facility] Specialist Cardiology - General 04/10/23 04/10/23 Matthew Rushing MD [address] [place] [address] 86316 [facility] Specialist Cardiology - General 04/17/23 04/17/23 Guerita Elliott PA-C [address] [address] [facility] Specialist Cardiothoracic Surgery 04/17/23 Matthew Rushing MD [address] [place] [address] 77022 [facility] Specialist Cardiology - General 04/24/23 04/24/23 Guerita Elliott PA-C [address] [address]68 [facility] Specialist Cardiothoracic Surgery 04/24/23 3 Matthew Rushing MD [address] [place] [address] 28331 [facility] Specialist Cardiology - General 05/01/23 05/01/23 Guerita Elliott PA-C [address] [address]2673 [facility] Specialist Cardiothoracic Surgery 05/01/23 Guerita Elliott PA-C [address] [address]60 [facility] Specialist Cardiothoracic Surgery 05/08/23 Matthew Rushing MD [address] [place] [address] 97598 [facility] Specialist Cardiology - General 05/08/23 05/08/23 Matthew Rushing MD [address] [place] [address] 01434 [facility] Specialist Cardiology - General 05/15/23 05/15/23 Guerita Elliott PA-C [address] [address] [facility] Specialist Cardiothoracic Surgery 05/15/23 Matthew Rushing MD [address] [place] [address] 88942 [facility] Specialist Cardiology - General 05/22/23 05/22/23 Guerita Elliott PA-C [address] [place] [address] 84687 [facility] Specialist Cardiothoracic Surgery 05/22/23 3 Matthew Rushing MD [address] [place] [address] [id number] [facility] Specialist Cardiology - General 05/29/23 05/29/23 Guerita Elliott PA-C [address] [place] [address] 25439 [facility] Specialist Cardiothoracic Surgery 05/29/23 Guerita Elliott PA-C [address] [place] [address] 93982 [facility] Specialist Cardiothoracic Surgery 06/05/23 Matthew Rushing MD [address] [place] [address] 24345 [facility] Specialist Cardiology - General 06/05/23 06/05/23 Guerita Elliott PA-C [address] 6[address]60 [facility] Specialist Cardiothoracic Surgery 06/12/23 Matthew Rushing MD [address] [place] [address] 12973 [facility] Specialist Cardiology - General 06/12/23 06/12/23 Guerita Elliott PA-C [address] 05897 [facility] Specialist Cardiothoracic Surgery 06/19/23 Matthew Rushing MD [address] [place] [address] 54898 [facility] Specialist Cardiology - General 06/19/23 06/19/23 Guerita Elliott PA-C [address] [address]182 [facility] Specialist Cardiothoracic Surgery 06/26/23 06/26/23 Matthew Rushing MD [address] [place] [address] 16777 [facility] Specialist Cardiology - General 06/26/23 06/26/23 Guerita Elliott PA-C [address] 48362 [facility] Specialist Cardiothoracic Surgery 07/03/23 4 Matthew Rushing MD [address] [place] [address] 30953 [facility] Specialist Cardiology - General 07/03/23 07/03/23 Guerita Elliott PA-C [address] 44819 [facility] Specialist Cardiothoracic Surgery 07/10/23 4 Matthew Rushing MD [address] [place] [address] 56237 [facility] Specialist Cardiology - General 07/10/23 07/10/23 Matthew Rushing MD [address] [place] [address] 94189 [facility] Specialist Cardiology - General 07/17/23 07/17/23 Guerita Elliott PA-C [address] [address]0123 [facility] Specialist Cardiothoracic Surgery 07/17/23 4 Matthew Rushing MD [address] [place] [address] 41576 [facility] Specialist Cardiology - General 07/24/23 07/24/23 Guerita Elliott PA-C [address] [place] [address] 81959 [facility] Specialist Cardiothoracic Surgery 07/24/23 07/24/23 Matthew Rushing MD [address] [place] [address] 02263 [facility] Specialist Cardiology - General 07/31/23 07/31/23 Guerita Elliott PA-C [address] 0[address]15 [facility] Specialist Cardiothoracic Surgery 07/31/23 4 Guerita Elliott PA-C [address] [place] [address] [facility] Specialist Cardiothoracic Surgery 08/07/23 4 Matthew Rushing MD [address] [place] [address] 77170 [facility] Specialist Cardiology - General 08/07/23 08/07/23 Guerita Elliott PA-C [address] [place] [address] 70946 [facility] Specialist Cardiothoracic Surgery 08/14/23 4 Matthew Rushing MD [address] [place] [address] 33146 [facility] Specialist Cardiology - General 08/14/23 08/14/23 Matthew Rushing MD [address] [place] [address] 66442 [facility] Specialist Cardiology - General 08/21/23 08/21/23 Guerita Elliott PA-C [address] 26176 [facility] Specialist Cardiothoracic Surgery 08/21/23 08/21/23 Matthew Rushing MD [address] [place] [address] 29723 [facility] Specialist Cardiology - General 08/28/23 08/28/23 Guerita Elliott PA-C [address] 00067 [facility] Specialist Cardiothoracic Surgery 08/28/23 4 Guerita Elliott PA-C [address] 88210 [facility] Specialist Cardiothoracic Surgery 09/04/23 4 Matthew Rushing MD [address] [place] [address] 20677 [facility] Specialist Cardiology - General 09/04/23 09/04/23 Matthew Rushing MD [address] [place] [address] 06079 [facility] Specialist Cardiology - General 09/11/23 09/11/23 Guerita Elliott PA-C [address] [place] [address] 28915 [facility] Specialist Cardiothoracic Surgery 09/11/23 4 Matthew Rushing MD [address] [place] [address] 75224 [facility] Specialist Cardiology - General 09/18/23 09/18/23 Guerita Elliott PA-C [address] 94244 [facility] Specialist Cardiothoracic Surgery 09/18/23 4 Matthew Rushing MD [address] [place] [address] 04580 [facility] Specialist Cardiology - General 09/25/23 09/25/23 Guerita Elliott PA-C [address] [place] [address] [facility] Specialist Cardiothoracic Surgery 09/25/23 09/25/23 Matthew Rushing MD [address] [place] [address] 62345 [facility] Specialist Cardiology - General 10/02/23 10/02/23 Guerita Elliott PA-C [address] 34167 [facility] Specialist Cardiothoracic Surgery 10/02/23 4 Guerita Elliott PA-C [address] 90055 [facility] Specialist Cardiothoracic Surgery 10/09/23 4 Matthew Rushing MD [address] [place] [address] 86282 [facility] Specialist Cardiology - General 10/09/23 10/09/23 Matthwe Rushing MD [address] [place] [address] 02280 [facility] Specialist Cardiology - General 10/16/23 10/16/23 Guerita Elliott PA-C [address] 86775 [facility] Specialist Cardiothoracic Surgery 10/16/23 4 Matthew Rushing MD [address] [place] [address] 53406 [facility] Specialist Cardiology - General 10/23/23 10/23/23 Guerita Elliott PA-C [address] 90956 [facility] Specialist Cardiothoracic Surgery 10/23/23 10/23/23 Matthew Rushing MD [address] [place] [address] 18079 [facility] Specialist Cardiology - General 10/30/23 10/30/23 Guerita Elliott PA-C [address] 60546 [facility] Specialist Cardiothoracic Surgery 10/30/23 4 Guerita Elliott PA-C [address] 10496 [facility] Specialist Cardiothoracic Surgery 11/06/23 4 Matthew Rushing MD [address] [place] [address] 06975 [facility] Specialist Cardiology - General 11/06/23 11/06/23 Matthew Rushing MD [address] [place] [address] 35082 [facility] Specialist Cardiology - General 11/13/23 11/13/23 Guerita Elliott PA-C [address] 81255 [facility] Specialist Cardiothoracic Surgery 11/13/23 Guerita Elliott PA-C [address] 14670 [facility] Specialist Cardiothoracic Surgery 11/20/23 11/20/23 Matthew Rushing MD [address] [place] [address] 27941 [facility] Specialist Cardiology - General 11/20/23 11/20/23 Guerita Elliott PA-C [address] 34946 [facility] Specialist Cardiothoracic Surgery 11/27/23 11/27/23 Matthew Rushing MD [address] [place] [address] 26655 [facility] Specialist Cardiology - General 11/27/23 11/27/23 Guerita Elliott PA-C [address] 81037 [facility] Specialist Cardiothoracic Surgery 12/04/23 Matthew Rushing MD [address] [place] [address] 16169 [facility] Specialist Cardiology - General 12/04/23 12/04/23 Matthew Rushing MD [address] [place] [address] 93229 [facility] Specialist Cardiology - General 12/11/23 12/11/23 Guerita Elliott PA-C [address] 61393 [facility] Specialist Cardiothoracic Surgery 12/11/23 4 Guerita Elliott PA-C [address] [place] [address] 36630 [facility] Specialist Cardiothoracic Surgery 12/18/23 4 Matthew Rushing MD [address] [place] [address] 57413 [facility] Specialist Cardiology - General 12/18/23 12/18/23 Guerita Elliott PA-C [address] [place] [address] 32069 [facility] Specialist Cardiothoracic Surgery 12/25/23 12/25/23 Matthew Rushing MD [address] [place] [address] 50770 [facility] Specialist Cardiology - General 12/25/23 12/25/23 Guerita Elliott PA-C [address] [place] [address] 35164 [facility] Specialist Cardiothoracic Surgery 01/01/24 4 Matthew Rushing MD [address] [place] [address] 26127 [facility] Specialist Cardiology - General 01/01/24 01/01/24 Guerita Elliott PA-C [address] [address]136 [facility] Specialist Cardiothoracic Surgery 01/08/24 4 Matthew Rushing MD [address] [place] [address] 19191 [facility] Specialist Cardiology - General 01/08/24 01/08/24 Guerita Elliott PA-C [address] 21510 [facility] Specialist Cardiothoracic Surgery 01/15/24 4 Matthew Rushing MD [address] [place] [address] 09933 [facility] Specialist Cardiology - General 01/15/24 01/15/24 Matthew Rushing MD [address] [place] [address] [id number] [facility] Specialist Cardiology - General 01/22/24 01/22/24 Guerita Elliott PA-C [address] 11477 [facility] Specialist Cardiothoracic Surgery 01/22/24 01/22/24 Guerita Elliott PA-C [address] 10951 [facility] Specialist Cardiothoracic Surgery 01/29/24 4 Matthew Rushing MD [address] [place] [address] 43839 [facility] Specialist Cardiology - General 01/29/24 01/29/24 Matthew Rushing MD [address] [place] [address] 32942 [facility] Specialist Cardiology - General 02/05/24 02/05/24 Guerita Elliott PA-C [address] 11881 [facility] Specialist Cardiothoracic Surgery 02/05/24 4 Matthew Rushing MD [address] [place] [address] 97114 [facility] Specialist Cardiology - General 02/12/24 02/12/24 Guerita Elliott PA-C [address] 32786 [facility] Specialist Cardiothoracic Surgery 02/12/24 4 Guerita Elliott PA-C [address] 21029 [facility] Specialist Cardiothoracic Surgery 02/19/24 02/19/24 Matthew Rushing MD [address] [place] [address] 40640 [facility] Specialist Cardiology - General 02/19/24 02/19/24 Matthew Rushing MD [address] [place] [address] 56188 [facility] Specialist Cardiology - General 02/26/24 02/26/24 Guerita Elliott PA-C [address] 02198 [facility] Specialist Cardiothoracic Surgery 02/26/24 02/26/24 Guerita Elliott PA-C [address] 32661 [facility] Specialist Cardiothoracic Surgery 03/04/24 4 Matthew Rushing MD [address] [place] [address] 42848 [facility] Specialist Cardiology - General 03/04/24 03/04/24 Guerita Elliott PA-C [address] 14772 [facility] Specialist Cardiothoracic Surgery 03/11/24 4 Matthew Rushing MD [address] [place] [address] 67745 [facility] Specialist Cardiology - General 03/11/24 03/11/24 Matthew Rushing MD [address] [place] [address] 67032 [facility] Specialist Cardiology - General 03/18/24 03/18/24 Guerita Elliott PA-C [address] 29367 [facility] Specialist Cardiothoracic Surgery 03/18/24 4 Matthew Rushing MD [address] [place] [address] [place] Jacob [address] [facility] Specialist Cardiology - General 03/25/24 03/25/24 Guerita Elliott PA-C [address] [place] [address] [place] [address] [facility] Specialist Cardiothoracic Surgery 03/25/24 4 documented as of this encounter
--- OUTSIDE RECORDS SUMMARY | 2024-06-24 04:38 | XMS_ITS | Encounter Summary ---
Author Organization [facility] alth Address [address] [place] [address] Care Team Providers Care Marriage And Family Counselor Name Role Phone Kilo Wang MD Unavailable [phone] Juan Haddad MD Unavailable [phone] Dasha Sheppard PA-C Primary Care Provider Reason for Visit * Reason Comments Chest Pain Pt c/o SOB and burni ng sensation in his chest - worse in the morning and evening. * New Consult/Second Opinion (Routine) - Closed Specialty Diagnoses / Procedures Referred By Contac t Referred To Contact Cardiology - General / Cardiology Diagnoses Burning in the chest SOB (shortness of breath) on exertion Dasha Sheppard, PASeverino [address] [place] [address] Phone: tel: fax: [facility] [address] [place] [address] Phone: tel: fax: Referral ID Status Reason Start Date Expiration Date V isits Requested Visits Authorized [id number] Closed Co-managemen t Until Stable 07/26/2018 07/26/2019 1 1 Encounter Details Date Type Department Care Team (Late st Contact Info) Description 07/31/2018 11:20 AM EST Office Visit [facility] [address] [place] [address] Matthew Rushing MD [address] [place] [address] Essential hypertension (Primary Dx); Chest discomfort; Shortness of breath; Nonspecific abnormal electrocardiogram (ECG) (EKG); Ascending aorta enlargement (CMS/HCC) Discharge Disposition: Home/Self Care Social History [...] Sign Reading Time Taken Comments Blood Pressure 143/79 07/31/2018 11:12 AM EST Pulse 91 07/31/2018 11:12 AM EST Temperature - - Respiratory Rate - - Oxygen Saturation - - Inhaled Oxygen Concentration - - Weight 111 kg (245 lb) 07/31/2018 11:45 AM EST Height 182.9 cm (6') 07/31/2018 11:12 AM EST Body Mass Index 33.23 07/31/2018 11:12 AM EST documented in this encounter Patient Instructions * Patient Instructions* Maine Cardozo, FIDENCIO - 07/31/2018 11:48 AM EST Welcome [facility]! If you have any questions, problems, or concerns before your next appointment, please do not hesitate to call and choose option #2 to Speak with a nurse, and then press #3 for General Cardiology. Thank you! Medications: START Amlodipine 2.5mg 1 tablet daily. Please check your blood pressure at home twice a day until your return visit. Keep track of your blood pressure on the chart provided and return the chart to our office. Follow-up: Follow up with [facility] after stress testing is completed. Tests & Procedures: - CTA (Angiogram) of the Chest - Lexiscan Cardiolite Stress Test Arrival Time: Please arrive 15 minutes before the scheduled test time. Day of Procedure: If you are a female between the ages of 12-55 and you have not had a hysterectomy(uterus removed) or tubal ligation (???tubes tied?? ) you may have a urine test done before the test. Pre-procedure Medicine Instructions: Some medications may cause a problem with the test results. DO NOT take the medicines listed below.If you do not follow these instructions your test will be cancelled and need to be rescheduled. ??? DO NOT use any NTG (Nitroglycerine) under your tongue for at least 1hour before the test. ??? DO NOT take these medicines for 12 hours before the test: Betablockers: Acebutolol, Atenolol, Betaxolol, Bisoprolol, Carvedilol, Labetalol, Metoprolol tartrate, Metoprolol succinate, Nadolol, Nebivolol, Pindolol, Propranolol Nitrates:Nitroglycerin, isosorbide mononitrate, Isosorbide dinitrate. ?? DO NOT take these medications for 24 hours before the test: Theophylline Persantine/Dipyridamole/Aggrenox ??? DO NOT take these medicines for 72 hours before the test: Erectile Dysfunction medications: Cialis, Levitra, Viagra, Vardenafil, Tadalafil, Revalto, Sildenafil, Adcirca, Avanafil. ??? If you are diabetic, your doctor will tell you how much insulin you should take the day of the test. ??? Use your inhalers as usual and bring them to the hospital with you General Instructions: ??? You may drink water before your test. ??? Do not eat or drink anything except water for at least 4 hours before the test. If you do not follow these instructions your test will be cancelled and need to be rescheduled. ??? Do not eat or drink anything containing caffeine (including decaffeinated coffee, tea, cola, and chocolate) for 12 hours before test. ??? Please wear comfortable pants or shorts and shoes that you can walk in (no sandals or flip-flops). ??? Family members may wait in the waiting room; they cannot be with you during test Common Questions: What is a Lexiscan Cardiolite Stress Test? A Lexiscan stress test is used to check for blockages inthe blood vessels that supply your heart muscle with blood and oxygen. A small amount of a radioactive material will be injected into an IV in your arm so that we can take pictures of your heart. Jorgito also receive a medicine called Lexiscan, which affects your heart arteries in such a way that i t makes it look like you have exercised. Your heart rhythm and the pictures of your heart will be checked before, during and after the test. What is its purpose of this test? There are many reasons why this test is ordered, but the main reason is to check for changes that could mean you have a blockage in one or more of the arteries that supply your heart with blood and oxygen. Who will be involved in the test? You will be cared for by a nuclear medicine specialist, hybrid technologist and a nurse. The doctor may or may not be in the room with you, but there is always a doctor nearby. Is the test safe? The dose of radiation you will receive is very small and is not harmful to you. It will be out of your body in a few days. How long will the test take? The entire test will take about 2-3 hours. When will the test results be available? The doctor will read the test the same day. Please allow 2-3 week days for results. Your doctor may call you with the results or review them with you during afollow up visit. Additional Instructions: Healthy Eating: How to Eat a Heart-Healthy Diet A heart-healthy dietary pattern emphasizes intake of lots of vegetables, fruits and whole grains; includes low-fat dairy products, poultry, fish, legumes, nontropical vegetable oils and nuts; and limits intake of sodium, sweets, sugar- sweetened beverages and red meats. How can you start eating a more heart-healthy diet? Start by making a few of these changes at a time. ??? Learn what a serving size is. See the Food Groups section of www.ChooseMyPlate.gov. Make sure that you are not eating larger portions than are recommended. For example; a 3-ounce serving is aboutthe size of a deck of cards. Foods that are high in saturated fat include meats, cheeses, and fried foods. Saturated fat is also found in coconut oil, palm oil, and cocoa butter. Saturated fat can raise your cholesterol. ??? Measure serving sizes until you are good at ???eyeballing them. Keep in mind that restaurants often serve portions that are 2 to 3 times the size of a single serving. Eat more fruits and vegetables ??? Fruits and vegetables have lots of nutrients that help protect against heart disease, and they have little--if any--fat. Dark green, deep orange, or yellow fruits and vegetables are especially healthy. ??? Keep carrots, celery, and other veggies handy for snacks. Buy fruit that is in season, and store it where you can see it so that you will be tempted to eat it. ??? Cook dishes that have a lot of veggies in them, such as stir-fries and soups. Limit saturated and trans fats ??? Read food labels, and try to avoid saturated and trans fats. They increase your risk of heart disease. Trans fat and saturated fat are listed on a food label. They are often found in cookies, crackers, and other snacks. These may also be listed as partially hydrogenated oils ??? No more than 5-6% of calories/day (12 grams in a 2,000 calorie diet) should come from saturatedfat ??? Use healthy fats (mono-unsaturated fats) such as olive, or canola oil when you cook. ??? Substitute butter with a spread that lowers cholesterol, such as Smart Balance, Benecol or TakeControl. ??? Avoid using tropical oils such as coconut oil or palm oil and poly- unsaturated fats (corn oil, safflower oil, sunflower oil and soybean oil) ??? Bake, broil, grill, or steam foods instead of frying them. ??? Eat fish at least 2 times each week to get omega-3 fats. All fish contain omega-3 fats, but certain fish, such as salmon, mackerel, bluefish, sablefish, anchovies, escobar, senior trout, sardines, and tuna, contain a lot of omega-3 fatty acids, which may help reduce your risk of heart attack. Larger fish (tilefish, swordfish, martha mackerel, marlin, and shark) havehigh levels of mercury, a chemical that can be harmful if eaten in large amounts. women, nursing mothers, women who may become , and young children should not eat these larger fish. ??? Eat fish, skinless poultry, pork chops (after trimming off all visible fat) and beans, egg whites or soy products such as tofu instead of high-fat meats as a source of protein ??? Avoid egg yolks which contain 200mg of cholesterol and 2 grams of saturated fat per egg. Substitute egg whites, which contain mostly protein, or egg beaters. ??? Limit the amount of high-fat meats you eat, including hot dogs and sausages. Cut off all visible fat when you prepare meat. Avoid red meat as much as possible ??? Choose non-fat or low-fat dairy products. Eat foods high in fiber ??? Foods high in soluble fiber may reduce your cholesterol and provide important vitamins and minerals. Xuar-kfzzopo-atsna foods include barley, oatmeal, rye, dried beans, seeds, vegetables, citrus fruits, pears, and apples. ??? Eat a variety of grain products every day. Buy whole-grain breads and cereals, instead of white bread or pastries. Look for foods that have at least 2 grams of fiber in each serving and list whole wheat flour or other whole-grain flour as the first ingredient. Limit salt and sodium to no more than 1500-1900mg per day ??? Limit how much salt and sodium you eat. Too much sodium can cause problems, such as high blood pressure or heart failure, or make these problems worse. ??? Taste food before you salt it. Add only a little salt when you think you need it. With time, you will adjust to less salt. ??? Eat fewer snack items, fast foods, and other high-salt, processed foods. Check food labels for the amount of sodium in packaged foods. ??? Avoid packaged and pre-prepared foods. If you are eating packaged foods, use low sodium choices. These should have no more than 200mg sodium per serving. ??? Do not cook with salt. Use herbs for seasoning instead. ??? Compare sodium in foods like soup, bread, and frozen meals--and choose the foods with lower numbers. Limit alcohol ??? Limit alcohol to no more than 2 drinks a day for men and 1 drink a day for women. Too much alcohol can cause a variety of health problems. Exercise ??? Engage in physical activities to reduce blood pressure and risk of heart attack and stroke. 3-4sessions per week, lasting 40 minutes per session. Should involve moderate to vigorous intensity physical activity. ??[id number] [employer] disclaims any liability for use of this information, which does not replace medical advice. [id number] documented in this encounter Progress Notes * Matthew Rushing MD - 07/31/2018 11:20 AM EST Impression 1. Chest pain: The patient's chest pain is described as burning substernal without radiation and associated with shortness of breath. It has occurred at rest. The resting 12-lead ECG reveals sinus rhythm with poor R-wave progression across the precordium and a nonspecific ST-T wave abnormality. Because of the ST segment abnormality and the baseline, I am recommending that he undergo a stress testwith imaging, namely a Lexiscan stress test. The patient is agreeable to this. 2. Shortness of breath: The patient shortness of breath is episodic and predominantly at rest, sometimes associated with chest burning. I am concerned that this may be related to myocardial ischemia for which he is going to have the pharmacologic nuclear stress test. 3. Hypertension: Patient's blood pressure is mildly elevated today. The echocardiogram demonstrateda dilated ascending aorta. This tells me he likely has chronic hypertension. Multiple readings of high blood pressure were noted in the patient's chart. 4. Oral tobacco use: I discussed with the patient the negative cardiovascular effects of this including hypertension. He is going to make a concerted effort to cut down on this. 5. Dilated ascending aorta on echocardiogram: Will evaluate with CT angiogram of the aorta. The patient did have a CT of the chest with contrast but it did not include the proximal aorta. I called radiology and they could not visualize this portion of the aorta. 6. Hyperlipidemia: The patient's LDL cholesterol significantly elevated at 147. I discussed with him the importance of decreasing his cholesterol and we discussed what constitutes a low-cholesterol diet. Will repeat lipids in 3 months. Plan 1. The patient is going to obtain an automated blood pressure cuff and monitor his blood pressure twice daily and return the log when he is seen in follow-up. 2. Start amlodipine 2.5 mg daily 3. The patient was furnished with a low-cholesterol diet guidelines 4. Lexiscan stress test 5. CT angiogram of the aorta 6. Follow-up after above tests History of Present Illness Robert Alexis Jr. is a 53 y.o. male who presents for cardiovascular evaluation with a chief complaint of shortness of breath and chest pain. Cardiovascular risk factors include hypertension, hypercholesterolemia, and tobacco abuse. Echocardiogram 07/18/18: Global systolic LV function is [...] Active Problem List Diagnosis Date Noted ??? Left carpal tunnel syndrome 03/21/2018 Priority: Medium ??? Right carpal tunnel syndrome 03/02/2018 Priority: Medium ??? Congenital absence of left kidney 02/13/2018 Priority: Medium ??? Lyme disease 02/13/2018 Priority: Medium ??? Cubital tunnel syndrome on left 01/26/2018 Priority: Medium ??? Occipital neuralgia of right side 08/30/2016 Priority: Medium ??? Bilateral carpal tunnel syndrome 08/30/2016 Priority: Medium ??? Vasovagal syncope 08/30/2016 Priority: Medium ??? Anxiety Priority: Medium ??? Tubular adenoma of colon. Repeat colonoscopy in APR 2019 04/27/2016 Priority: Medium ??? Essential hypertension 08/28/2012 Priority: Medium ??? Asthma 08/28/2012 Priority: Medium family history includes Cancer (age of onset: 67) in his mother. Allergies No Known Allergies Medications Outpatient Encounter Medications as of 07/31/2018 Medication Sig Dispense Refill ??? Dexamethasone 1 MG TABS Take one tablet once at midnight. 1 tablet 0 ??? gabapentin (NEURONTIN) 300 MG capsule Take 1 capsule by mouth at bedtime. 30 capsule 1 ??? Wheatley Weimar Extract 500 MG CAPS Take by mouth. No facility-administered encounter medications on file as of 07/31/2018. Review of Systems Constitutional Symptoms: Negative for [...] medical, surgical, social and family history within [facility]. Physical Exam Vitals: Visit Vitals BP (!) 143/79 Pulse 91 Ht 1.829 m (6') Wt 111 kg (245 lb) BMI 33.23 kg/m?? General: 53 y.o. male in no acute distress Skin: warm and dry. Head: normocephalic atraumatic. Neck: There is no jugular venous distention Carotid arteries: pulses are normal in upstroke contour and duration. There were no carotid bruits. Heart: The point of maximal intensity of the heart is not displaced. The rhythm is regular. First and second heart sounds are normally split and present. There are no murmurs, rubs, gallops, clicks, or opening snaps. Chest: Clear to auscultation ithout rhonchi wheezes or rales Musculoskeletal: There is no kyphoscoliosis. . Abdomen: Not examined Genitalia: Not examined Extremities: No peripheral edema and peripheral pulses are present. Neuro: Patient is alert and oriented X3, no focal motor or sensory deficit. Psychiatric: Affect appropriate. * Debbie Connell - 07/31/2018 11:09 AM EST Review of Systems Eyes: Positive for blurred vision. Respiratory: Positive for shortness of breath. Cardiovascular: Positive for chest pain. All other systems reviewed and are negative. documented in this encounter Plan of Treatment Not on file documented as of this encounter Procedures Procedure Name Priority Date/Time Associated Diagnosis Comments EKG - (MUSE:IN OFFICE TRACE & READ USING MUSE) Routine 07/31/2018 11:17 AM EST Chest discomfort documented in this encounter Results * EKG - (MUSE:IN OFFICE TRACE & READ USING MUSE) (07/31/2018 11:17 AM EST) Ventricular Rate 97 BPM [facility] Atrial Rate 97 BPM [facility] P-R Interval 172 ms [facility] QRS Duration 86 ms [facility] Q-T Interval 340 ms [facility] QTC Calculation 431 ms [facility]-E[facility] Calculated P [place] 32 degrees [facility] Calculated R [place] 64 degrees [facility] Calculated T [place] 1 degrees [facility] 07/31/2018 11:1 7 AM EST 07/31/2018 3:13 PM EST Narrative [facility] - 07/31/2018 3:13 PM EST Normal sinus rhythm Borderline ECG When compared with ECG of 17-FEB-2018 06:50, Questionable change in initial forces of Septal leads Confirmed by Ricardo Waite MD, Sondra ([id number]) on 07/31/2018 3:13:13 PM Matthew Rushing MD ECG ORDERABLES Final Result [facility] [address] [facility] [place] [address] documented in this encounter Visit Diagnoses Diagnosis Essential hypertension- Primary Unspecified essential hypertension Chest discomfort Other chest pain Shortness of breath Nonspecific abnormal electrocardiogram (ECG) (EKG) Ascending aorta enlargement (CMS/HCC) Other specified disorders of arteries and arterioles documented in this encounter Care Teams Marriage And Family Counselor Relationship Specialty Start Date End Date Dasha Sheppard PA-C [address] [place] [address] PCP - General Family Practice 04/12/18 07/10/23 Kilo Wang MD Consulting Physician Neurology 08/30/16 12/01/21 Juan Haddad MD [address] [place] [address] Otolaryngology 09/23/17 documented as of this encounter
--- OUTSIDE RECORDS SUMMARY | 2024-06-24 04:38 | XMS_ITS | Encounter Summary ---
Author Organization [facility]th [facility] [address] [address] Care Team Providers Care Lathe Machine Operator Name Role Phone Kilo aWng MD Unavailable [phone] Juan Haddad MD Unavailable [phone] Dasha Sheppard PA-C Primary Care Provider Reason for Referral * Test/Procedure/Other (Routine) - Closed Specialty Diagnoses / Procedures Referred By Contac t Referred To Contact Diagnoses Pain of upper abdomen Procedures FL BARIUM SWALLOW/ESOPHAGRAM Dasha Sheppard PA-C [address] [place] [place] [address] Phone: tel: fax: Referral ID Status Reason Start Date Expiration Date Visits Re quested Visits Authorized [id number] Closed 02/02/2019 02/02/2020 1 1 Reason for Visit * Test/Procedure/Other (Routine) - Closed Specialty Diagnoses / Procedures Referred By Contcarlie carvajal Referred To Contact Diagnoses Pain of upper abdomen Procedures FL BARIUM SWALLOW/ESOPHAGRAM Dasha Sheppard PA-C [address] [facility] [place] [address] Phone: tel: fax: Referral ID Status Reason Start Date Expiration Date Visits Re quested Visits Authorized [id number] Closed 02/02/2019 02/02/2020 1 1 Encounter Details Date Type Department Care Team (Latest Contact Info) Description 02/13/2019 2:16 PM EDT - 02/13/2019 11:59 PM EDT Hospital Encounter [facility] [address] [place] [address] Dasha Sheppard PA-C [address] [place] [address] Upper abdominal pain, unspecified Discharge Disposition: Home/Self Care Social History Tobacco [...] tablet by mouth daily. 90 tablet 3 10/10/2018 11/21/2019 sertraline (ZOLOFT) 50 MG tablet Take 1/2 tablet x 6 days then increase to one full tablet daily. 30 tablet 1 02/07/2019 02/22/2019 documented as of this encounter Plan of Treatment Not on file documented as of this encounter Goals Goal Patient Goal Type Associated Problems Recent Progress Patient-Stated? Author Blood Pressure < 140/90 Blood Pressure 160/96( 024 8:13 AM EDT) Kilo Mora MD documented as of this encounter Procedures Procedure Name Priority Date/Time Associated Diagnosis Comments FL BARIUM SWALLOW/ESOPHAGRAM Routine 02/13/2019 2:47 PM EDT Pain of upper abdomen documented in this encounter Results * FL BARIUM SWALLOW/ESOPHAGRAM (02/13/2019 2:47 PM EDT) Anatomical Region Laterality Modality Neck Radio Fluoroscop y 02/13/2019 2:22 PM EDT Impressions 02/13/2019 3:57 PM EDT Unremarkable barium swallow study. No findings to explain patient's symptoms. Dictating Narrative 02/13/2019 3:57 PM EDT Barium Swallow 02/13/2019 Reason for Exam (from ordering provider): ??epigastric pain Clinical History: ??Epigastric and left upper quadrant abdominal pain x3 months. Comparison: ??None. Technique: Single and double contrast images were obtained utilizing dense and thin barium and effervescent crystals. ?? This procedure was performed by PHIL Howell under the supervision of Jay Delgado MD. This is in accordance with the [facility] Practice Provider scope of practice and hospital privileges. Final interpretation was made by the supervising Radiologist. Fluoro time: 1.7 minutes Image series: 14 FINDINGS: Motility: There was normal esophageal motility. ??There was no evidence of aspiration or penetration during the course of the exam. Mucosa: ??The mucosal folds are normal without focal or diffuse thickening. Mass/Stricture: ??There is no evidence of mass lesion or focal stricture. EG junction: ??There is no evidence of hiatal hernia. ??There was no evidence of reflux during the course of the exam. Barium tablet: ??A 13 mm barium tablet passed into the stomach without difficulty. Additional Findings: ??None. Procedure Note Jay Delgado MD - 02/13/2019 Barium Swallow 02/13/2019 Reason for Exam (from ordering provider): epigastric pain Clinical History: Epigastric and left upper quadrant abdominal pain [id number]. Comparison: None. Technique: Single and double contrast images were obtained utilizing denseand thin barium and effervescent crystals. This procedure was performed by PHIL Howell under thesupervision of Jay Delgado MD. This is [facility] scope of practice and hospital privileges.Final interpretation was made by the supervising Radiologist. Fluoro time: 1.7 minutes Image series: 14 FINDINGS: Motility: There was normal esophageal motility. There was no evidence ofaspiration or penetration during the course of the exam. Mucosa: The mucosal folds are normal without focal or diffusethickening. Mass/Stricture: There is no evidence of mass lesion or focal stricture. EG junction: There is no evidence of hiatal hernia. There was noevidence of reflux during the course of the exam. Barium tablet: A 13 mm barium tablet passed into the stomach withoutdifficulty. Additional Findings: None. IMPRESSION: Unremarkable barium swallow study. No findings to explain patient'ssymptoms. Dictating Workstation: [employer] us Dasha Sheppard PA-C LG RIS FLUOROSCOPY CARLI EATON Final Result documented in this encounter Visit Diagnoses Diagnosis Pain of upper abdomen Abdominal pain, other specified site documented in this encounter Administered Medications Inactive Administered Medications - up to 3 most recent administrations Medication Order MAR Action Action Date Dose Rate Site Barium Sulfate 40 % SUSR 96 g 96 g (240 mL), Oral, IMG ONCE PRN, Other, Starting on Tue02/13/19 at 1447, For 1 dose Given 02/13/2019 2:47 PM EDT 96 g Barium Sulfate TABS 700 mg 700 mg (1 tablet), Oral, IMG ONCE PRN, Other, Starting on Tue02/13/19 at 1447, For 1 dose Given 02/13/2019 2:47 PM EDT 700 mg documented in this encounter Care Teams Lathe Machine Operator Relationship Specialty Start Date End Date Dasha Sheppard PA-C [address] [address] PCP - General Family Practice 04/12/18 07/10/23 Kilo Wang MD Consulting Physician Neurology 08/30/16 12/01/21 Juan Haddad MD [address] [address] Otolaryngology 09/23/17 documented as of this encounter
--- OUTSIDE RECORDS SUMMARY | 2024-06-24 04:38 | XMS_ITS | Encounter Summary ---
Author Organization [facility] alth Address [address] [place] [address] Care Team Providers Care Ob Gyn Physician Assistant Name Role Phone Kilo Wang MD Unavailable [phone] Juan Haddad MD Unavailable [phone] Dasha Sheppard PA-C Primary Care Provider Reason for Referral * Test/Procedure/Other (Routine) - Closed Specialty Diagnoses / Procedures Referred By Donald carvajal Referred To Contact Radiology Diagnoses Neck pain Procedures NM BONE SPECT CT (TOMOGRAM) [facility] [address] [place] [address] Phone: tel: fax: [facility] [address] [place] [address] Phone: tel: fax: Referral ID Status Reason Start Date Expiration Date Visits Re quested Visits Authorized [id number] Closed 06/08/2018 07/08/2018 1 1 Reason for Visit * Reason Comments Neck Pain throbbing in the nec k radiates up into rt side of head Results XRAY Numbness numbness and tinglin g in left arm * New Consult/Second Opinion (Routine) - Closed Specialty Diagnoses / Procedures Referred By Donald carvajal Referred To Contact Neurosurgery Diagnoses Cervical radiculopathy Neck pain Occipital neuralgia of right side Dasha Sheppard PA-C [address] [facility] [place] [address] Phone: tel: fax: Luigi Valdivia MD Phone: tel: fax: Referral ID Status Reason Start Date Expiration Date V isits Requested Visits Authorized [id number] Closed Co-managemen t Until Stable 05/29/2018 05/29/2019 1 1 Encounter Details Date Type Department Care Team (Latest Contact Info) Description 06/07/2018 3:30 PM EST Office Visit [facility] [address] [facility] [place] [phone] Luigi Valdivia MD [address] [facility] [address] Neck pain Discharge Disposition: Home/Self Care Social History [...] Sign Reading Time Taken Comments Blood Pressure 147/95 06/07/2018 3:20 PM EST Pulse - - Temperature - - Respiratory Rate - - Oxygen Saturation - - Inhaled Oxygen Concentration - - Weight 107 kg (235 lb) 06/07/2018 3:20 PM EST Height 182.9 cm (6') 06/07/2018 3:20 PM EST Body Mass Index 31.87 06/07/2018 3:20 PM EST documented in this encounter Progress Notes * Luigi Valdivia MD - 06/07/2018 3:41 PM EST CHIEF COMPLAINT: Chief Complaint Patient presents with ??? Neck Pain throbbing in the neck radiates up into rt side of head ??? Results XRAY ??? Numbness numbness and tingling in left arm HISTORY OF PRESENT ILLNESS: Mr. Alexis presents for evaluation of right-sided neck pain. He notes this started insidiously several months ago. He notes no specific precipitating event. He describes itas a throbbing type pain in the right portion of the neck which is better with activity and worse with rest. He does note some radiation in the upper extremities into the shoulder and upper arms. He has no numbness. He has no weakness. He has no change in dexterity. He has had no formal treatment with respect to physical therapy or interventional pain treatment. He is on a tapered course of prednisone with significant benefit. He notes no previous trauma to the cervical spine. He underwent plain film imaging and presents for evaluation. Review of Systems HENT: Positive for hearing loss and tinnitus. Musculoskeletal: Positive for neck pain. Neurological: Positive for tingling. All other systems reviewed and are negative. PAST MEDICAL HISTORY: Past Medical History: Diagnosis Date ??? Asthma ??? Lyme disease PAST SURGICAL HISTORY: Past Surgical History: Procedure Laterality Date ??? ENDOSCOPY, ESOPHAGUS 04/22/2016 ??? HX CARPAL TUNNEL RELEASE Right 03/02/2018 Procedure: DECOMPRESSION NERVE MEDIAN CARPAL TUNNEL RELEASE: Carpal Tunnel Release; Surgeon: Devante Portillo DO; Location: [facility]; Laterality: Right; ??? HX CARPAL TUNNEL RELEASE Left 03/23/2018 Procedure: DECOMPRESSION NERVE MEDIAN CARPAL TUNNEL RELEASE: Carpal Tunnel Release; Surgeon: Devante Portillo DO; Location: [facility]; Laterality: Left; ??? HX COLONOSCOPY 04/22/2016 ??? HX CYST REMOVAL approx 2015 beneath eye-done at MD office w/ local anesthesia ??? HX DECOMPRESSION NERVE CUBITAL TUNNEL RELEASE Left 03/23/2018 Procedure: DECOMPRESSION NERVE CUBITAL TUNNEL RELEASE: Cubital Tunnel Release; Surgeon: Devante Portillo DO; Location: [facility]; Laterality: Left; CURRENT MEDICATIONS: Current Outpatient Medications: ??? predniSONE (DELTASONE) 20 MG tablet, Take 3 tablets by mouth x 3 days, 2 tablets by mouth x 3 days, 1 tablet by mouth x 4 days., Disp: 19 tablet, Rfl: 0 ALLERGIES: No Known Allergies Family History Problem Relation Age of Onset ??? Cancer Mother 67 colon SOCIAL HISTORY: Social History Socioeconomic History ??? Marital status: Spouse name: Not on file ??? Number of children: Not on file ??? Years of education: Not on file ??? Highest education level: Not on file Social Needs ??? Financial resource strain: Not on file ??? Food insecurity - worry: Not on file ??? Food insecurity - inability: Not on file ??? Transportation needs - medical: Not on file ??? Transportation needs - non-medical: Not on file Occupational History ??? Not on file Tobacco Use ??? Smoking status: Never Smoker ??? Smokeless tobacco: Current User Types: Chew ??? Tobacco comment: chewing tobacco 2 cans/week Substance and Sexual Activity ??? Alcohol use: No ??? Drug use: No ??? Sexual activity: Not on file Other Topics Concern ??? Not on file Social History Narrative ??? Not on file PHYSICAL EXAMINATION: GENERAL: Well-developed well-nourished individual in no acute distress. VITAL SIGNS: Vitals: 06/07/18 1520 BP: (!) 147/95 Weight: 107 kg (235 lb) Height: 1.829 m (6') POSTURE: Upright without antalgia. HEAD: Normocephalic without tenderness. Atraumatic. GI, , & RECTAL: Deferred. MUSCULOSKELETAL: The patient has normal range of motion of the cervical and lumbar spine, to include flexion, extension, rotation and lateral bending. The patient has a negative straight leg raise onthe left and right sides. NEUROLOGICAL EXAMINATION: Mental Status Examination: The patient is awake, alert, and oriented to person, place, and time. There is no evidence of short or long-term memory loss. Attention and concentration span are normal. Language function is normal. Fund of knowledge is within normal limits. Speech is clear and fluent. CRANIAL NERVES: II: Visual garcia and acuity within normal limits. III, IV, & : Pupils equal, round, and reactive to light and accommodation. Extraocular movements intact. V: V1 through V3 intact bilaterally to pinprick and light touch. VII: Facial expressions symmetric with normal facial strength. VIII: Hearing grossly intact to finger rub bilaterally. IX & X: Gag reflex intact. XI: Normal strength to shoulder shrug. XII: Tongue midline. Sensory examination is normal to light touch, pinprick, and proprioception in the upper and lower extremities. No tenderness noted upon palpation of posterior sacroiliac joints, spinous processes, orparaspinous muscles. No Tinel???s over the ulnar or median nerves. Motor examination is normal. There is normal muscle tone in the upper and lower extremities withoutatrophy. No tremors are evident. Strength is 5/5 bilaterally in the upper and lower extremities. Reflexes are 2/2 in the upper and lower extremities. No clonus, Babinski, or Mally bilaterally. Gait is sturdy and symmetric, without antalgia or ataxia. The patient is able to perform [id number] gait. RADIOGRAPHIC FINDINGS: Cervical radiographs of April 2018 were reviewed. These demonstrate: Moderate disc degeneration at C5-6, C6-7 and C3-4. LEFT foraminal stenosis at C3-4 C4-5, C5-6 and C6-7. No fracture or destructive lesion. No subluxation. Prevertebral soft tissues are normal. IMPRESSION/PLAN: Mr. Alexis has cervical pain that is right sided. I suspect this is facet related. He does have upper extremity symptoms which may be consistent with radiculopathy. He is neurologically intact. We will obtain imaging in the form of SPECT. We will also obtain MRI imaging. He will seeme back following the studies for discussion of findings and treatment recommendations. * Anamaria Pérez - 06/07/2018 3:19 PM EST Subjective: HPI Review of Systems HENT: Positive for hearing loss and tinnitus. Musculoskeletal: Positive for neck pain. Neurological: Positive for tingling. All other systems reviewed and are negative. Future appointments already scheduled: Future Appointments Date Time Provider Department Center 06/07/2018 3:30 PM Luigi Valdivia MD [facility] Objective: Vitals: There were no vitals taken for this visit. Physical Exam Diagnostic Data: Assessment & Plan: documented in this encounter Plan of Treatment Not on file documented as of this encounter Results * NM BONE SPECT CT (TOMOGRAM) (06/21/2018 10:57 AM EST) Anatomical Region Laterality Modality Nuclear Medicine 06/21/2018 7:28 AM EST Impressions 06/21/2018 11:30 AM EST Degenerative changes with uptake as discussed. All exams performed by [facility] utilize one or more of the following dose optimization techniques: automated exposure control, adjustment of the mA and/or kV according to patient size and/or the use of iterative reconstruction techniques. ??Audits are completed at the protocol, device and patient level to ensure compliance. ??All protocols (per device) are periodically reviewed by a team of medical physicists, technologists and radiologists Dictating Narrative 06/21/2018 11:30 AM EST Nuclear medicine SPECT bone scan examination cervical spine History: Neck pain, M54.2. COMPARISON: Prior bone scan. Correlation: Cervical spine radiographs 04/20/2018. The patient was injected intravenously with 27.4 millicuries of technetium MDP and planar and SPECT CT imaging of the cervical spinal was performed. ??In addition, planar images of the cervical spine. Findings: Seven cervical vertebral segments. C1-C2: No abnormal uptake. C2-C3: No abnormal uptake. C3-C4: Mild endplate uptake with no abnormal facet uptake. C4-C5: No abnormal uptake. C5-C6: Moderate endplate uptake on the RIGHT with no abnormal facet uptake. C6-C7: Minimal endplate uptake with no abnormal facet uptake. C7-T1: No abnormal uptake. There is mild endplate uptake incidentally noted at T8-T9. Mild uptake at the sternoclavicular junction bilaterally. Nonspecific groundglass densities. Mild interstitial changes bilaterally. There are coronary artery calcifications. The heart is borderline in size. Procedure Note Mynor Mejia MD - 06/21/2018 Nuclear medicine SPECT bone scan examination cervical spine History: Neck pain, M54.2. COMPARISON: Prior bone scan. Correlation: Cervical spine radiographs 04/20/2018. The patient was injected intravenously with 27.4 millicuries of technetiumMDP and planar and SPECT CT imaging of the cervical spinal was performed.In addition, planar images of the cervical spine. Findings: Seven cervical vertebral segments. C1-C2: No abnormal uptake. C2-C3: No abnormal uptake. C3-C4: Mild endplate uptake with no abnormal facet uptake. C4-C5: No abnormal uptake. C5-C6: Moderate endplate uptake on the RIGHT with no abnormal facetuptake. C6-C7: Minimal endplate uptake with no abnormal facet uptake. C7-T1: No abnormal uptake. There is mild endplate uptake incidentally noted at T8-T9. Mild uptake at the sternoclavicular junction bilaterally. Nonspecific groundglass densities. Mild interstitial changesbilaterally. There are coronary artery calcifications. The heart is borderline insize. IMPRESSION: Degenerative changes with uptake as discussed. All exams performed by [facility] utilize one or more of the following doseoptimization techniques: automated exposure control, adjustment of the mAand/or kV according to patient size and/or the use of iterativereconstruction techniques. Audits are completed at the protocol, deviceand patient level to ensure compliance. All protocols (per device) areperiodically reviewed by a team of medical physicists, technologists andradiologists Dictating Luigi Valdivia MD RIS NM ORDERABLES Final Result documented in this encounter Visit Diagnoses Diagnosis Neck pain Cervicalgia Neck pain Cervicalgia documented in this encounter Care Teams Ob Gyn Physician Assistant Relationship Specialty Start Date End Date Dasha Sheppard PA-C [address] [address] PCP - General Family Practice 04/12/18 07/10/23 Kilo Wang MD Consulting Physician Neurology 08/30/16 12/01/21 Juan Haddad MD [address] [address] Otolaryngology 09/23/17 documented as of this encounter
--- OUTSIDE RECORDS SUMMARY | 2024-06-24 04:38 | XMS_ITS | Encounter Summary ---
Author Organization [facility] alth Address [address] [place] [address] Care Team Providers Care Rn Cardiovascular Icu Name Role Phone Sal Wright DO Primary Care Provider [phone] Kilo Wang MD Unavailable [phone] Juan Haddad MD Unavailable [phone] Reason for Visit * Auth/Cert Specialty Diagnoses / Procedures Referred By Donald carvajal Referred To Contact Diagnoses Left carpal tunnel syndrome Cubital tunnel syndrome, left Left carpal tunnel syndrome Cubital tunnel syndrome, left Procedures OR WRIST ARTHROSCOP,RELEASE XVERS LIG OR REVISE ULNAR NERVE AT WRIST DECOMPRESSION NERVE MEDIAN CARPAL TUNNEL RELEASE: Carpal Tunnel Release DECOMPRESSION NERVE CUBITAL TUNNEL RELEASE: Cubital Tunnel Release Referral ID Status Reason Start Date Expiration Date Visits Re quested Visits Authorized [id number] 1 1 Encounter Details Date Type Department Care Team (Latest Contact Info) Description 03/23/2018 6:07 AM EDT - 03/23/2018 9:56 AM EDT Hospital Encounter [facility] [address] [facility] [place] [address] Devante Portillo, DO [address] [place] [address] Left carpal tunnel syndrome Discharge Disposition: Home/Self Care Social History Tobacco [...] Sign Reading Time Taken Comments Blood Pressure 132/92 03/23/2018 9:54 AM EDT Pulse 82 03/23/2018 9:36 AM EDT Temperature 36.2 ??C (97.1 ??F) 03/23/2018 8:58 AM ED T Respiratory Rate 23 03/23/2018 9:36 AM EDT Oxygen Saturation 95% 03/23/2018 9:36 AM EDT Inhaled Oxygen Concentration - - Weight 105 kg (231 lb) 03/16/2018 2:02 PM EDT Height 175.3 cm (5' 9 ) 03/16/2018 2:02 PM EDT Body Mass Index 34.11 03/16/2018 2:02 PM EDT documented in this encounter Discharge Instructions * Discharge Instructions* Dione Evangelista RN - 03/23/2018 9:19 AM EDT POST ANESTHESIA DISCHARGE INSTRUCTIONS Do not drive or operate machinery or power tools for 24 hours Do not drink alcoholic beverages for 24 hours. Alcohol enhances the effects of anesthesia and sedation. Do not make any important decisions or sign any important papers for 24 hours. You may experience light-headedness, dizziness, and sleepiness following surgery. Please DO NOT STAY ALONE. A responsible adult should be with you for this 24 hour period. Rest at home with moderate activity as tolerated. It may not be necessary to go to bed; however, itis important to rest for 24 hours following general anesthesia. Progress slowly to a regular diet. Start with liquids, then light foods (soup, crackers, jello, etc.) as you can tolerate, gradually progressing to solid foods. Avoid wearing flip flops or loose fitting shoes for the first 24 hours. CARING FOR YOUR INCISION AT HOME Do not remove dressing unless instructed to do so by your physician. It is normal for your incision to be a little red and swollen. Call your physician is you have any signs of infection including: - Bad smell or drainage - More redness or swelling - Fever with temperature greater than 101 degrees - Red streaks on skin around incision Shower daily if OK with your doctor. Do not take tub baths. Be sure your bed linens are clean. Do not touch or pick at incision or scabs. Do not allow pets on your bed. Do not allow pets to touch your incision. Do not use hot tubs, or swim in a pool, pond, or ocean until OK with your doctor and your incision is healed. CLEANING YOUR INCISION First, clean your hands before caring for the incision. Wash hands for at least 20 seconds with soap and warm water. Use a mild, liquid soap. Use a clean wash cloth each time and wash gently. Do Not scrub. Rinse off soap and gently pat dry with a clean towel. Wash your hands after caring for your incision. Do not apply anything to your incision including alcohol, lotion, oil or powder, unless instructed by your physician. REPORT THE FOLLOWING SIGNS AND SYMPTOMS TO THE SURGEON IMMEDIATELY Excessive swelling of or around the incision area. Excessive pain that is not relieved by pain medicine. Persistent nausea and vomiting Excessive bleeding (slow oozing that saturates the dressing completely or bright red bleeding). A small amount of bright red bleeding is normal. - if you have excessive bleeding- place another bandage over your current bandage. Do not remove the original bandage and call your surgeon for further instructions. In case of emergency or any questions related to your surgery please call your surgeon at [phone] If any questions or concerns about your hospital visit and care, please call the Ortho Center at [phone] M-F 8am until 6:30pm IF TAKING PRESCRIPTION PAIN MEDICATIONS Avoid alcoholic beverages while taking pain medication. Take with food to avoid stomach upset May cause constipation. Alter your diet and increase your fluid intake as needed. Do not drive, operate machinery or appliances while taking pain medication. Keep the operative extremity elevated. This will reduce swelling which will help decrease pain. Use ice 20 minutes every hour (while awake) for the first 2 days. TIME OF LAST PAIN MEDICATION_No oral pain meds in PACU. You can take your next pain pill as directed_. DO NOT BEND LEFT ELBOW TO 90 DEGREES, - KEEP LESS THAN 90 DEGREES * Discharge Instr - Wound Instructions* Elizabeth Hernandez, Kiarra Taveras - 03/21/2018 4:[address] Portillo's Hand/Wrist Surgery Post-Op Instructions ?? Ice your hand/wrist. You may apply ice packs over the bandages. Keep a wash cloth between the bandages and the ice. If you have a thick bandage, splint or cast, ice should be used nearly continuously for the first 3 days. If you have a small or thin bandage, use the ice for 20 minutes, then remove it for 20 minutes. Continue this schedule for 3 days. ?? Elevate your hand continuously above your heart levels for 3 days. At night, lie on your back with your arm supported on pillows beside you or on your chest. If you are unable to sleep on your back, you may sleep on the opposite side as your surgery. Place a stack of pillows in front of you and rest your forearm on these pillows. In both sleeping positions, keep the hand above elbow and shoulde r height to reduce swelling. ?? Move your fingers and thumb unless they are wrapped in the bandages. For the first 2-3 days, move your fingers and thumb very gently. Gradually make a full fist and completely straighten your fingers/thumb. This will get easier as the days go by. Do not use your hand vigorously. Remember to moveyour shoulder so that it does not get stiff from disuse. Move it, Don't use it. ?? Do not remove your bandages. Keep them dry until your follow up appointment in our office. You may shower if you cover the bandage with a plastic bag. To catch leakage, wrap a washcloth around your arm, but inside the bag. Seal the bag with tape or an elastic band. In the shower, hold the arm upin the air and keep it away from the water. ?? If you had a minor procedure (ie, trigger finger, cyst excision, carpal tunnel release), you maytake huja-vlt-epufkdk acetaminophen (Tylenol) on a regular basis: acetaminophen (Tylenol) 1000mg every 8 hours In addition to acetaminophen, if it is safe for you to take antiinflammatories (no history of GI ulcers/bleeding, no use of blood thinners), you may also add an rduf-xzr-pfnzhaq anti-inflammatory. Please choose one of the following: ibuprofen, Advil, Motrin- 400-600mg every 6 hours naproxen sodium, Aleve- 220mg 1-2 tabs every 12 hours If this is effective, you may not need the prescribed narcotic medicine. This was provided in case you feel that the acetaminophen or anti-inflammatory medicines are not strong enough. If your narcotic prescription contains acetaminophen, please do not take the additional acetaminophen (Tylenol) as written above. Anti-inflammatories may still be used. ?? If you had a more extensive procedure, then it is best to take the narcotic medication around the clock for 24-48 hours, then as needed thereafter. ?? Hand therapy may be started when you are seen at the office for your follow- up appointment. Adhering to the recommended postoperative instructions will increase the chance of success and decrease the risk of complications with your surgery. We are here to help you. If you have any concerns, please call us before your scheduled appointment. [address] * [place] [address] * * fax [phone] * [place] [address] * * fax [phone] [facility] * [address] * [place] [address] * * fax [phone] [facility] * [place] [address] * * fax [phone] Dr. Portillo's Elbow Surgery Post-Op Instructions ?? Ice your elbow in the area of the incision. You may apply ice packs over the bandages. Keep a wash cloth between the bandages and the ice. Ice should be used nearly continuously for the first 3 days and as needed thereafter. ?? Elevate your hand continuously above your heart levels for 3 days. At night, lie on your back with your arm supported on pillows beside you or on your chest. Keep the hand above elbow and shoulderheight to reduce swelling. ?? Move your fingers and shoulder gently. Gradually make a full fist and completely straighten yourfingers/thumb. This will get easier as the days go by. Do not use your hand vigorously. Do not try to lift, grasp, push, pull, etc. ?? Do not remove your bandages. Keep them dry until your follow up appointment in our office. You may shower if you cover the bandage with a plastic bag. To catch leakage, wrap a washcloth around your arm, but inside the bag. Seal the bag with tape or an elastic band. In the shower, hold the arm upin the air and keep it away from the water. ?? If you had a minor procedure (ie, trigger finger, cyst excision, carpal tunnel release), you maytake kldb-xwh-mwjscnj acetaminophen (Tylenol) on a regular basis: acetaminophen (Tylenol) 1000mg every 8 hours In addition to acetaminophen, if it is safe for you to take antiinflammatories (no history of GI ulcers/bleeding, no use of blood thinners), you may also add an akeg-lzi-egabvsp anti-inflammatory. Please choose one of the following: ibuprofen, Advil, Motrin: 400-600mg every 6 hours naproxen sodium, Aleve: 220mg 1-2 tabs every 12 hours If this is effective, you may not need the prescribed narcotic medicine. This was provided in case you feel that the acetaminophen or anti-inflammatory medicines are not strong enough. If your narcotic prescription contains acetaminophen, please do not take the additional acetaminophen (Tylenol) as written above. Anti-inflammatories may still be used. ?? If you had a more extensive procedure, then it is best to take the narcotic medication around the clock for 24-48 hours, then as needed thereafter. ?? Physical therapy may be started when you are seen at the office for your follow-up appointment. Adhering to the recommended postoperative instructions will increase the chance of success and decrease the risk of complications with your surgery. We are here to help you. If you have any concerns,please call us before your scheduled appointment. [address] * [place] [address] * * fax [phone] * [place] [address] * * fax [phone] * [place] [address] * * fax [phone] [facility] * [place] [address] * * fax [phone] Dr. Portillo's Post-Op Medication Instructions ?? After orthopedic surgery, a limited number of narcotic pain medications are sometimes prescribed. This depends on the procedure and the individual. It is important to keep your pain under reasonable control in the early postoperative period as this can improve your results later. Often this can be achieved with acetaminophen and an anti-inflammatory, however, sometimes a narcotic is necessary.Narcotics are potentially addictive and misuse can lead to , therefore, these must be used only as prescribed. We generally only use narcotics for just a short period of time after surgery and typically do not prescribe long-term narcotics, minimizing the risk of drug dependence. It is important to understand that narcotics may not completely alleviate your pain. You may still experience varying degrees of discomfort especially in the first several days after surgery. ?? Narcotic pain medications such as oxycodone, [place]/Vicodin (hydrocodone/acetaminophen) and codeine are all narcotics. You should not drive a vehicle, operate machinery or attempt difficult mental tasks while taking narcotic pain medications. ?? Side effects are common, including itching, constipation, nausea/vomiting, fatigue, confusion, gait disturbance, etc. ?? Itching- can be treated with over- the-counter Benadryl, but this may increase fatigue. ?? Nausea/vomiting- can be treated with anti-nausea medications. We would need to prescribe these. ?? Constipation- can be treated with various over-the counter medications and remedies (ie; prune juice, Milk of Magnesia, Day-colace, Fleets enema). You may speak with your pharmacist about these options. ?? Some narcotics are combined with Tylenol (acetaminophen). The maximum daily recommended dose of Tylenol (acetaminophen) is 3000mg for a healthy adult. You may take additional acetaminophen with your narcotics. Your narcotic may also contain acetaminophen, so when combining these medications, it is important that you do not exceed the recommended daily dose. You may also take Tylenol (acetaminophen) alone if you no longer need the narcotics. ?? Tylenol is the recommended ihip-ruq-diqhpwg medication after orthopedic surgery. However, if this is not effective, anti-inflammatory medications such as Advil/Motrin (ibuprofen) and Aleve/Naproxen (naprosyn) can also be used. In general, anti-inflammatory medications should be avoided if you are taking blood thinners. ?? Blood thinners, also known as anticoagulants, are sometimes used to reduce the risk of blood clots, particularly after major hip and knee surgery. We may prescribe Xarelto, Coumadin (warfarin), aspirin or injectable blood thinners (ie; Arixtra, Lovenox). There are risks of excessive bleeding with these drugs. Coumadin needs to be monitored with periodic blood tests (PT/INR). Avoid using thgi-dxj-fnmwhpy anti-inflammatories while taking blood thinners. ?? If you have any questions about your medications, please contact us. If we cannot answer your questions, we may refer you to your primary care physician or a pharmacist. [address] * [place] [address] * * fax [phone] * [place] [address] * * fax [phone] * [facility] [address] * [place] [address] * * fax [phone] [facility] * [place] [address] * * fax [phone] documented in this encounter Medications at Time of Discharge HYDROcodone-aceta minophen (NORCO) 5-325 MG TABS pertab Take 1-2 tablets by mouth every 4 hours as needed. Max Daily Amount: 12 tablets 10 tablet 03/02/2018 8 aspirin 81 MG chewabletab Take 81 mg by mouth daily. 8 Doxycycline Monohydrate (VIBRAMYCIN ORAL) Take by mouth once a week (pt states unknown dose weekly for Lyme Disease in gradually increasing dose for total 20 weeks as prescribed by Michelle [place]). 8 oxyCODONE (ROXICODONE) 5 MG immediate releasetab Take 1-2 tablets by mouth every 4 hours as needed for Pain. Max Daily Amount: 60 mg 30 tablet 03/23/2018 8 documented as of this encounter H&P Notes * Devante Portillo, DO - 03/23/2018 7:13 AM EDT The H&P was reviewed, the patient was examined, and no changes have occurred since the H&P was completed. Disclaimer: The Prior to Admission Medication (BORDER INSPECTOR) list in the attached History and Physical may have been updated since the H&P was done. For the most current data refer to the BORDER INSPECTOR medication section in e-Health for this encounter. Source Note - Adriana Sal Salinas, - 02/23/2018 10:44 AM EDT documented in this encounter Miscellaneous Notes * Plan of Care - Dione Evangelista RN - 03/23/2018 9:54 AM EDT Patient had a snack and id not want pain medicine. Said he's not having pain and he will start it when he starts to feel it. Discharge instructions given to patient and , verbalized understanding. RX for Oxycodone given to . IV dc'd with catheter intact. * Op Note - Devante Portillo DO - 03/23/2018 9:09 AM EDT Record of Operation Date of Procedure: 03/23/2018 Preoperative Diagnosis: left Carpal Tunnel Syndrome, left Cubital Tunnel Syndrome Postoperative Diagnosis: left Carpal Tunnel Syndrome, left Cubital Tunnel Syndrome Procedure: left Carpal Tunnel Release, Decompression left Ulnar Nerve at the Elbow Surgeon: Devante Portillo DO [employer] Helper: Kiarra Johnson PA-C Anesthesia: General Blood Loss: Minimal Description of Operation: The patient was taken to the operating room and placed in the supine position. A median nerve block was administered with 1% Xylocaine. The arm was then prepped and draped appropriately. A timeout was performed. The arm was exsanguinated with an Esmarch. A tourniquet was inflated to 250 mmHg. A longitudinal incision was made in line with the 3rd web space. This was carried through the skin and the subcutaneous tissue was bluntly dissected, exposing the palmar fascia. The palmar fascia wasincised and carried carefully through the transverse carpal ligament until the carpal canal was entered. The median nerve and motor branch were identified and protected. A complete release of the ligament was achieved under direct visualization. The wound was thoroughly irrigated with saline and the skin was closed with 4-0 nylon. Next, attention was turned to the elbow. A curvilinear incision was made through the skin of the medial elbow and then the subcutaneous tissue was bluntly dissected. Branches of the antebrachial cutaneous nerve were identified and protected throughout the procedure. The ulnar nerve was identified posterior to the medial intermuscular septum. The nerve was decompressed from the epicondyle, well proximal to the tourniquet. The septum was excised and the nerve was dissected behind the epicondyle and distally, well beyond the flexor carpi ulnaris fascia. The ulnar nerve was decompressed and the motor branches were protected. The nerve was stable during elbow range of motion. The tourniquet was released and satisfactory hemostasis was achieved with bipolar cautery. The wound was thoroughly irrigated with saline. The subcutaneous tissue was closed with 3-0 Vicryl and the skin was closed with 4-0 nylon. Marcaine and epinephrine were introduced into the medial elbow incision. Sterile dressings and a sling were applied. Sponge and needle counts were correct. The patient tolerated the procedure well and was moved to the PACU in satisfactory condition. The tourniquet was released. Circulation returned promptly. Hemostasis was satisfactory. Sterile dressings were applied. Sponge and needle counts were correct. The patient tolerated the procedure well and was moved to the PACU in satisfactory condition. Intraoperative Findings: The median nerve in the carpal tunnel was noted to have Severe constriction. 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 * Anesthesia PS - Margy Juarez MD - 03/17/2018 10:48 AM EDT Chart reviewed. OK to proceed. No further workup indicated at this time. documented in this encounter Plan of Treatment Not on file documented as of this encounter Procedures Procedure Name Priority Date/Time Associated Diagnosis Comments DECOMPRESSION NERVE CUBITAL TUNNEL RELEASE 03/23/2018 7:37 AM EDT Left carpal tunnel syndrome Cubital tunnel syndrome, left DECOMPRESSION NERVE MEDIAN CARPAL TUNNEL RELEASE 03/23/2018 7:37 AM EDT Left carpal tunnel syndrome Cubital tunnel syndrome, left documented in this encounter Visit Diagnoses Diagnosis Left carpal tunnel syndrome- Primary Carpal tunnel syndrome Left carpal tunnel syndrome Carpal tunnel syndrome Cubital tunnel syndrome on left Lesion of ulnar nerve Bilateral carpal tunnel syndrome Carpal tunnel syndrome Cubital tunnel syndrome on left Lesion of ulnar nerve documented in this encounter Admitting Diagnoses Diagnosis Left carpal tunnel syndrome Carpal tunnel syndrome documented in this encounter Administered Medications Inactive Administered Medications - up to 3 most recent administrations Medication Order MAR Action Action Date Dose Rate Site acetaminophen (TYLENOL) tablet 975 mg 975 mg, Oral, ONCE, On Lisa 03/23/18 at 0630, For 1 dose, C) Pre-Op/Pre-Procedure Given 03/23/2018 6:46 AM EDT 975 mg fentaNYL injection 25 mcg 25 mcg, Intravenous, EVERY 5 MIN PRN, Moderate Pain (4-7), Starting on Lisa 03/23/18 at 0847, For 10 doses, OPTION #1 Give first. Hold for respiratory rate less than 12. Maximum dose 250 mcg. Fall Risk Medication, E) PACU fentaNYL injection 50 mcg 50 mcg, Intravenous, EVERY 5 MIN PRN, Severe Pain (8-10), Starting on Lisa 03/23/18 at 0847, For 10 doses, OPTION #1 Give first. Hold for respiratory rate less than 12. Maximum dose 250 mcg. Fall Risk Medication, E) PACU HYDROmorphone (DILAUDID) injection 0.25 mg 0.25 mg, Intravenous, Administer over 2 Minutes, EVERY 8 MIN PRN, Moderate Pain (4-7), Starting on Lisa 03/23/18 at 0847, For 10 doses, OPTION #2 Give if option #1 ineffective. Hold for respiratory rate less than 12. Maximum dose 1 mg for outpatient, 2 mg for inpatient. Fall Risk Medication, E) PACU HYDROmorphone (DILAUDID) injection 0.5 mg 0.5 mg, Intravenous, Administer over 2 Minutes, EVERY 8 MIN PRN, Severe Pain (8-10), Starting on Lisa 03/23/18 at 0847, For 10 doses, OPTION #2 Give if option #1 ineffective. Hold for respiratory rate less than 12. Maximum dose 1 mg for outpatient, 2 mg for inpatient. Fall Risk Medication, E) PACU lactated ringers (LR) infusion 1,000 mL at 100 mL/hr, Intravenous, CONTINUOUS, Starting on Lisa 03/23/18 at 0630, Fluid Replacement, C) Pre-Op/Pre-Procedure New Bag 03/23/2018 6:56 AM EDT 1,000 mLs 100 mL/hr right hand lactated ringers (LR) infusion 500 mL at 100 mL/hr, Intravenous, ONCE PRN, Other, other, Starting on Lisa 03/23/18 at 0847, For 1 dose, Fluid Replacement, E) PACU NaCl 0.9 % flush 10 mL 10 mL, Intravenous, at 0-250 mL/hr, PRN, Line Care, Starting on Lisa 03/23/18 at 0623, C) Pre-Op/Pre-Procedure NaCl 0.9 % flush 3-10 mL 3-10 mL, Intravenous, PRN, Line Care, Starting on Lisa 03/23/18 at 0623, C) Pre-Op/Pre-Procedure NaCl 0.9% flush bag 20 mL 20 mL, Intravenous, at 0-250 mL/hr, PRN, Line Care, Starting on Lisa 03/23/18 at 0623, Run at rate of intermittent infusion for a volume of 20 mL to ensure all drug is out of IV tubing and administered to patient., C) Pre-Op/Pre-Procedure NaCl 0.9% KVO flush bag 10 mL/hr, Intravenous, PRN, Other, Starting on Lisa 03/23/18 at 0623, C) Pre-Op/Pre-Procedure ondansetron (ZOFRAN) injection 4 mg 4 mg, Intravenous, ONCE PRN, Nausea, Vomiting, Starting on Lisa 03/23/18 at 0847, For 1 dose, Administer only if patient is NPO or active emesis., E) PACU ondansetron (ZOFRAN-ODT) disintegrating tablet 4 mg 4 mg, Oral, ONCE PRN, Nausea, Vomiting, Starting on Lisa 18 at 0847, For 1 dose, E) PACU oxyCODONE (ROXICODONE) immediate release tablet 5-10 mg 5-10 mg, Oral, EVERY 4 HOURS PRN, Moderate Pain (4-7), Severe Pain (8-10), Starting on Lisa 18 at 0848, Fall Risk Medication, F) Post-Op/Post-Procedure promethazine (PHENERGAN) suppository 25 mg 25 mg, Rectal, ONCE PRN, Nausea, for nausea and vomiting, Starting on Lisa 18 at 0847, For 1 dose, Give if option #1 ineffective. No less than 4 hours after any previous dose. Fall Risk Medication, E) PACU documented in this encounter Active and Recently Administered Medications Times are shown in EDT. Scheduled Medication Order 03/21/2018 03/22/2018 03/23/2018 acetaminophen (TYLENOL) tablet 975 mg (COMPLETED) 975 mg, Oral, ONCE, On Lisa 03/23/18 at 0630, For 1 dose, C) Pre-Op/Pre-Procedure 0646 (Given - Provid er: Marbella Bush RN) Continuous Medication Order 03/21/2018 03/22/2018 03/23/2018 lactated ringers (LR) infusion 1,000 mL at 100 mL/hr, Intravenous, CONTINUOUS, Starting on Lisa 03/23/18 at 0630, Fluid Replacement, C) Pre-Op/Pre-Procedure 0656 (New Bag - Prov ider: Marbella Bush RN)0849 (Stopped - Provider: Rhea High CRNA) PRN Medication Order 03/21/2018 03/22/2018 03/23/2018 Bupivacaine (PF) (MARCAINE) 0.5 % (CANCELED) onestep once prn, Starting on Lisa 03/23/18 at 0842, D) Intra-Op/Intra-Procedure 0842 (Given - Provid er: Devante Portillo DO)0843 (Given - Provider: Devante Portillo DO) ceFAZolin (ANCEF) 2 g/100 mL IVPB (COMPLETED) 2 g, Intravenous, Administer over 30 Minutes, IN PREP OR OR AREA, Other, Starting on Lisa 03/23/18 at 0623, For 1 dose, 1 hour prior to surgery, C) Pre-Op/Pre-Procedure 0755 (Given - Provid er: Rhea High CRNA) fentaNYL injection 25 mcg(Linked Group 1) 25 mcg, Intravenous, EVERY 5 MIN PRN, Moderate Pain (4-7), Starting on Lisa 10/18 at 0847, For 10 doses, OPTION #1 Give first. Hold for respiratory rate less than 12. Maximum dose 250 mcg. Fall Risk Medication, E) PACU fentaNYL injection 50 mcg(Linked Group 1) 50 mcg, Intravenous, EVERY 5 MIN PRN, Severe Pain (8-10), Starting on Lisa 10/18 at 0847, For 10 doses, OPTION #1 Give first. Hold for respiratory rate less than 12. Maximum dose 250 mcg. Fall Risk Medication, E) PACU HYDROmorphone (DILAUDID) injection 0.25 mg(Linked Group 2) 0.25 mg, Intravenous, Administer over 2 Minutes, EVERY 8 MIN PRN, Moderate Pain (4-7), Starting on Lisa 1018 at 0847, For 10 doses, OPTION #2 Give if option #1 ineffective. Hold for respiratory rate less than 12. Maximum dose 1 mg for outpatient, 2 mg for inpatient. Fall Risk Medication, E) PACU HYDROmorphone (DILAUDID) injection 0.5 mg(Linked Group 2) 0.5 mg, Intravenous, Administer over 2 Minutes, EVERY 8 MIN PRN, Severe Pain (8-10), Starting on Lisa 1018 at 0847, For 10 doses, OPTION #2 Give if option #1 ineffective. Hold for respiratory rate less than 12. Maximum dose 1 mg for outpatient, 2 mg for inpatient. Fall Risk Medication, E) PACU lactated ringers (LR) infusion 500 mL at 100 mL/hr, Intravenous, ONCE PRN, Other, other, Starting on Lisa 1018 at 0847, For 1 dose, Fluid Replacement, E) PACU lidocaine (PF) (XYLOCAINE) 1 % injection 0-1 mL 0-1 mL, Intradermal, PRN, IV insertion, Starting on Lisa 18 at 0623, For Lidocaine Wheal, C) Pre-Op/Pre-Procedure NaCl 0.9 % flush 10 mL 10 mL, Intravenous, at 0-250 mL/hr, PRN, Line Care, Starting on Lisa 03/23/18 at 0623, C) Pre-Op/Pre-Procedure NaCl 0.9 % flush 3-10 mL 3-10 mL, Intravenous, PRN, Line Care, Starting on Lisa 18 at 0623, C) Pre-Op/Pre-Procedure NaCl 0.9 % irrigation (CANCELED) onestep once prn, Starting on Lisa 03/23/18 at 0820, Until Lisa 03/23/18 at 0851, D) Intra-Op/Intra-Procedure 0820 (Given - Provid er: Devante Portillo, DO) NaCl 0.9% flush bag 20 mL 20 mL, Intravenous, at 0-250 mL/hr, PRN, Line Care, Starting on Lisa 03/23/18 at 0623, Run at rate of intermittent infusion for a volume of 20 mL to ensure all drug is out of IV tubing and administered to patient., C) Pre-Op/Pre-Procedure NaCl 0.9% KVO flush bag 10 mL/hr, Intravenous, PRN, Other, Starting on Lisa 03/23/18 at 0623, C) Pre-Op/Pre-Procedure ondansetron (ZOFRAN) injection 4 mg(Linked Group 3) 4 mg, Intravenous, ONCE PRN, Nausea, Vomiting, Starting on Lisa 03/23/18 at 0847, For 1 dose, Administer only if patient is NPO or active emesis., E) PACU ondansetron (ZOFRAN-ODT) disintegrating tablet 4 mg(Linked Group 3) 4 mg, Oral, ONCE PRN, Nausea, Vomiting, Starting on Lisa 03/23/18 at 0847, For 1 dose, E) PACU oxyCODONE (ROXICODONE) immediate release tablet 5-10 mg 5-10 mg, Oral, EVERY 4 HOURS PRN, Moderate Pain (4-7), Severe Pain (8-10), Starting on Lisa 03/23/18 at 0848, Fall Risk Medication, F) Post-Op/Post-Procedure promethazine (PHENERGAN) suppository 25 mg 25 mg, Rectal, ONCE PRN, Nausea, for nausea and vomiting, Starting on Lisa 03/23/18 at 0847, For 1 dose, Give if option #1 ineffective. No less than 4 hours after any previous dose. Fall Risk Medication, E) PACU Linked Groups Order Group 1: fentaNYL injection 25 mcgJump to med 25 mcg, Intravenous, EVERY 5 MIN PRN, Moderate Pain (4-7), Starting on Lisa 03/23/18 at 0847, For 10 doses, OPTION #1 Give first. Hold for respiratory rate less than 12. Maximum dose 250 mcg. Fall Risk Medication, E) PACU Or fentaNYL injection 50 mcgJump to med 50 mcg, Intravenous, EVERY 5 MIN PRN, Severe Pain (8-10), Starting on Lisa 03/23/18 at 0847, For 10 doses, OPTION #1 Give first. Hold for respiratory rate less than 12. Maximum dose 250 mcg. Fall Risk Medication, E) PACU Group 2: HYDROmorphone (DILAUDID) injection 0.25 mgJump to med 0.25 mg, Intravenous, Administer over 2 Minutes, EVERY 8 MIN PRN, Moderate Pain (4-7), Starting on Lisa 03/23/18 at 0847, For 10 doses, OPTION #2 Give if option #1 ineffective. Hold for respiratory rate less than 12. Maximum dose 1 mg for outpatient, 2 mg for inpatient. Fall Risk Medication, E) PACU Or HYDROmorphone (DILAUDID) injection 0.5 mgJump to med 0.5 mg, Intravenous, Administer over 2 Minutes, EVERY 8 MIN PRN, Severe Pain (8- 10), Starting on Lisa 03/23/18 at 0847, For 10 doses, OPTION #2 Give if option #1 ineffective. Hold for respiratory rate less than 12. Maximum dose 1 mg for outpatient, 2 mg for inpatient. Fall Risk Medication, E) PACU Group 3: ondansetron (ZOFRAN-ODT) disintegrating tablet 4 mgJump to med 4 mg, Oral, ONCE PRN, Nausea, Vomiting, Starting on Lisa 03/23/18 at 0847, For 1 dose, E) PACU Or ondansetron (ZOFRAN) injection 4 mgJump to med 4 mg, Intravenous, ONCE PRN, Nausea, Vomiting, Starting on Lisa 03/23/18 at 0847, For 1 dose, Administer only if patient is NPO or active emesis., E) PACU documented in this encounter Care Teams Rn Cardiovascular Icu Relationship Specialty Start Date End Date Sal Wright DO PCP - General 08/28/12 04/11/18 Kilo Wang MD Consulting Physician Neurology 08/30/16 12/01/21 Juan Haddad MD [address] [address] Otolaryngology 09/23/17 documented as of this encounter
--- OUTSIDE RECORDS SUMMARY | 2024-06-24 04:38 | XMS_ITS | Encounter Summary ---
Author Organization [facility] alth Address [address] [place] [address] Care Team Providers Care Stuffing Machine Operator Name Role Phone Kilo Wang MD Unavailable [phone] Juan Haddad MD Unavailable [phone] Dasha Sheppard PA-C Primary Care Provider Reason for Visit * Reason Onset Date Comments Error 07/25/2018 duplicate reques t Encounter Details Date Type Department Care Team (Late st Contact Info) Description 07/25/2018 Telephone Diabetes & Endocrinology [address] [place] [address] Chato Mosquera MD [address] [place] [address] Error (duplicate request) Social History Tobacco Use Types Packs/Day Years [...] encounter Miscellaneous Notes * Telephone Encounter - María Claire CMA - 07/25/2018 12:47 PM EST A user error has taken place: encounter opened in error, closed for administrative reasons. documented in this encounter Plan of Treatment Not on file documented as of this encounter Visit Diagnoses Not on filedocumented in this encounter Care Teams Stuffing Machine Operator Relationship Specialty Start Date End Date Dasha Sheppard PA-C [address] [address] PCP - General Family Practice 04/12/18 07/10/23 Kilo Wang MD Consulting Physician Neurology 08/30/16 12/01/21 Juan Haddad MD [address] [address] Otolaryngology 09/23/17 documented as of this encounter
--- OUTSIDE RECORDS SUMMARY | 2024-06-24 04:38 | XMS_ITS | Encounter Summary ---
Author Organization [facility] alth Address [address] [facility] [place] [place] [address] Care Team Providers Care Mechanical Development Engineer Name Role Phone Efrain Marmolejo MD Unavailable [phone] Juan Haddad MD Unavailable [phone] Dasha Sheppard PA-C Primary Care Provider Reason for Visit * Test/Procedure/Other (Routine) - Closed Specialty Diagnoses / Procedures Referred By Contac t Referred To Contact Radiology Diagnoses Dizziness and giddiness TIA (transient ischemic attack) Procedures US CAROTID BILATERAL Efrain Marmolejo MD [address] [place] [address] Phone: tel: fax: [address] [address] Phone: tel: fax: Referral ID Status Reason Start Date Expiration Date Visits Re quested Visits Authorized [id number] Closed 02/02/2019 02/02/2020 1 1 Encounter Details Date Type Department Care Team (Late st Contact Info) Description 02/06/2019 8:00 AM EDT Ancillary Procedure [address] [address] Efrain Marmolejo MD [address] [place], [place] [id number] Dizziness and giddiness; TIA (transient ischemic attack) Discharge Disposition: Home/Self Care Social History Tobacco [...] Pressure 160/96( 024 8:13 AM EDT) No Efrain Marmolejo MD documented as of this encounter Procedures Procedure Name Priority Date/Time Associated Diagnosis Comments US CAROTID BILATERAL Routine 02/06/2019 8:18 AM EDT Dizziness and giddiness TIA (transient ischemic attack) documented in this encounter Results * US CAROTID BILATERAL (02/06/2019 8:18 AM EDT) Anatomical Region Laterality Modality Vascular Ultrasound 02/06/2019 8:32 AM EDT Narrative 02/06/2019 8:29 AM EDT ?Department of Radiology and Diagnostic Imaging ? [place] [id number] ? US Carotid Bilateral Pat.Name: ??MIREYACARTER Nitin MOTT. ? Pat.ID: ?[id number] ? St.Date: ?? 02/06/2019 ? Refer.MD: ??EFRAIN MARMOLEJO ? Exam Time: 7:54:00 AM ?Study Type:US Carotid Bilateral ?Age: ??1965,53Y ?Sex: ? MALE ? Sonogrphr: MW1 ? Reason for Study:Dizziness ? FINDINGS: Bilat: ?Antegrade vertebral flow and triphasic flow in the ?subclavian ??arteries. Rt Bulb: ??Noncalcified plaque in the bulb. Rt ICA: ?? Noncalcified plaque in the proximal ICA Lt Bulb: ??Noncalcified plaque in the bulb. Carotid Findings: ?Right ?Left ? Verteb.Flw ? Antegrade ?Antegrade ? Subclavian ? Triphasic ?Triphasic ? MEASUREMENTS: ?DOPPLER Right CCA Prox ?? CCA Prox PSV ?87.7 cm/s ?CCA Prox EDV ?17.4 cm/s Right CCA Dist ?? CCA Dist PSV ?74.7 cm/s ?CCA Dist EDV ?17.7 cm/s Right Bulb ?? Bulb PSV ?58.4 cm/s ?Bulb EDV ?17 cm/s Right ICA Prox ?? ICA Prox PSV ?62.5 cm/s ?ICA Prox EDV ?23.1 cm/s Right ICA Mid ?? ICA Mid PSV ? 76.8 cm/s ?ICA Mid EDV ? 31.3 cm/s Right ICA Dist ?? ICA Dist PSV ?67.3 cm/s ?ICA Dist EDV ?27.9 cm/s Right ECA ?? ECA PSV ? 61.6 cm/s ?ECA EDV ? 9.76 cm/s Right Vertebral ?? Vertebral PSV ?? 39.5 cm/s ? Right SCA Prox ?? SCA Prox PSV ? 105 cm/s ? Right ICA/CCA ?? ICA/CCA PSV ? 1.03 ? Left CCA Prox ?? CCA Prox PSV ?97.6 cm/s ?CCA Prox EDV ?20.8 cm/s Left CCA Dist ?? CCA Dist PSV ?90 cm/s ?CCA Dist EDV ?23.7 cm/s Left Bulb ?? Bulb PSV ?69.2 cm/s ?Bulb EDV ?21.8 cm/s Left ICA Prox ?? ICA Prox PSV ?74.2 cm/s ?ICA Prox EDV ?20.4 cm/s Left ICA Mid ?? ICA Mid PSV ? 74.1 cm/s ?ICA Mid EDV ? 25.6 cm/s Left ICA Dist ?? ICA Dist PSV ?52.1 cm/s ?ICA Dist EDV ?19.2 cm/s Left ECA ?? ECA PSV ?113 cm/s ?ECA EDV ? 17.2 cm/s Left Vertebral ?? Vertebral PSV ?? 41.2 cm/s ? Left SCA Prox ?? SCA Prox PSV ? 103 cm/s ? Left ICA/CCA ?? ICA/CCA PSV ? 0.82 ?DIMENSION Right ICA Dist ?? ICA Dist Dim ? 0.5 cm ? Left ICA Dist ?? ICA Dist Dim ?0.61 cm ? SUMMARY: Procedure: Bilateral carotid duplex sonogram. Technique: 2 D olson scale, color, and spectral Doppler were performed. Right: There is mild, noncalcified plaque located in the bulb. ??There is no hemodynamically significant ICA stenosis. . Left: There is mild, noncalcified plaque located in the bulb, proximal ICA. ??There is no hemodynamically significant ICA stenosis. . . Please see hyperlink: ? Order Level PDF imaging report? in EPIC for detailed numerical Doppler/Measurement data . Dictating Workstation: [facility], Department of Diagnostic Imaging and [facility] Criteria: 50-69% Stenosis. ICA PSV 125-230 cm/sec, ICA EDV 40-100 cm/sec, ICA/CCA ratio 2.0-4.0 ? 70% Stenosis but less than near occlusion. ICA PSV >230 cm/sec, ICA EDV > 100 cm/sec, ICA/CCA ratio > 4.0 Signed 02/06/2019 08:28 AM Steven Anand MD Procedure Note Steven Anand MD - 02/06/2019 Department of Radiology [place] [address] US Carotid Bilateral Pat.Name: CARTER GOMES Pat.ID: [id number] .Date: 02/06/2019 Refer.MD: EFRAIN MARMOLEJO Exam Time: 7:54:00 AM Study Type:US Carotid Bilateral Age: 12 1965,53Y Sex: MALE Sonogrphr: MW1 Reason for Study:Dizziness FINDINGS: Bilat: Antegrade vertebral flow and triphasic flow in the subclavian arteries. Rt Bulb: Noncalcified plaque in the bulb. Rt ICA: Noncalcified plaque in the proximal ICA Lt Bulb: Noncalcified plaque in the bulb. Carotid Findings: Right Left Verteb.Flw Antegrade Antegrade Subclavian Triphasic Triphasic MEASUREMENTS: DOPPLER Right CCA Prox CCA Prox PSV 87.7 cm/s CCA Prox EDV 17.4 cm/s Right CCA Dist CCA Dist PSV 74.7 cm/s CCA Dist EDV 17.7 cm/s Right Bulb Bulb PSV 58.4 cm/s Bulb EDV 17 cm/s Right ICA Prox ICA Prox PSV 62.5 cm/s ICA Prox EDV 23.1 cm/s Right ICA Mid ICA Mid PSV 76.8 cm/s ICA Mid EDV 31.3 cm/s Right ICA Dist ICA Dist PSV 67.3 cm/s ICA Dist EDV 27.9 cm/s Right ECA ECA PSV 61.6 cm/s ECA EDV 9.76 cm/s Right Vertebral Vertebral PSV 39.5 cm/s Right SCA Prox SCA Prox PSV 105 cm/s Right ICA/CCA ICA/CCA PSV 1.03 Left CCA Prox CCA Prox PSV 97.6 cm/s CCA Prox EDV 20.8 cm/s Left CCA Dist CCA Dist PSV 90 cm/s CCA Dist EDV 23.7 cm/s Left Bulb Bulb PSV 69.2 cm/s Bulb EDV 21.8 cm/s Left ICA Prox ICA Prox PSV 74.2 cm/s ICA Prox EDV 20.4 cm/s Left ICA Mid ICA Mid PSV 74.1 cm/s ICA Mid EDV 25.6 cm/s Left ICA Dist ICA Dist PSV 52.1 cm/s ICA Dist EDV 19.2 cm/s Left ECA ECA PSV 113 cm/s ECA EDV 17.2 cm/s Left Vertebral Vertebral PSV 41.2 cm/s Left SCA Prox SCA Prox PSV 103 cm/s Left ICA/CCA ICA/CCA PSV 0.82 DIMENSION Right ICA Dist ICA Dist Dim 0.5 cm Left ICA Dist ICA Dist Dim 0.61 cm SUMMARY: Procedure: Bilateral carotid duplex sonogram. Technique: 2 D olson scale, color, and spectral Doppler were performed. Right: There is mild, noncalcified plaque located in the bulb. There is no hemodynamically significant ICA stenosis. . Left: There is mild, noncalcified plaque located in the bulb, proximal ICA. There is no hemodynamically significant ICA stenosis. . . Please see hyperlink: ? Order Level PDF imaging report? in [facility] for detailed numerical Doppler/Measurement data . Dictating Workstation: [facility], Department of Diagnostic Imaging and [facility] Criteria: 50-69% Stenosis. ICA PSV 125-230 cm/sec, ICA EDV 40-100 cm/sec, ICA/CCA ratio 2.0-4.0 ? 70% Stenosis but less than near occlusion. ICA PSV >230 cm/sec, ICA EDV > 100 cm/sec, ICA/CCA ratio > 4.0 Signed 02/06/2019 08:28 AM Steven Anand MD us Efrain Marmolejo MD [facility] US ORDERABLES Final Resu lt documented in this encounter Visit Diagnoses Diagnosis Dizziness and giddiness TIA (transient ischemic attack) Unspecified transient cerebral ischemia documented in this encounter Care Teams Mechanical Development Engineer Relationship Specialty Start Date End Date Dasha Sheppard PA-C [address] [address] PCP - General Family Practice 04/12/18 07/10/23 Efrain Marmolejo MD Consulting Physician Neurology 08/30/16 12/01/21 Juan Haddad MD [address] [address] Otolaryngology 09/23/17 documented as of this encounter
--- OUTSIDE RECORDS SUMMARY | 2024-06-24 04:38 | XMS_ITS | Encounter Summary ---
Author Organization [facility] alth Address [address] [address] Care Team Providers Care Production Line Assembler Name Role Phone Kilo Wang MD Unavailable [phone] Juan Haddad MD Unavailable Mary Sheppard PA-C Primary Care Provider Reason for Visit * Reason Comments Eye Problem pt said pressure is in the back of his head feels like a thumping pain worst when he lays down . worst pain was last night, his legs are feeling weak Weakness pt believe it could be a med he is currently taken (Gabapentin) Tremors feels sick when this happens. Encounter Details Date Type Department Care Team (Late st Contact Info) Description 01/12/2019 3:00 PM EDT Office Visit [facility] Line [address], [address] [place] [id number] Mary Sheppard PA-C [address] [place] [address] [place] [address] Atypical migraine (Primary Dx); Vision disturbance Discharge Disposition: Home/Self Care Social History Tobacco Use Types Packs/Day Years Used Date Smoking Tobacco: Never Smokeless Tobacco: Current Chew Tobacco Cessation:Ready to Q uit: No; Counseling Given: No Comments:chewing tobacco 2 cans/week Alcohol Use Standard [...] Sign Reading Time Taken Comments Blood Pressure 118/74 01/12/2019 3:01 PM EDT Pulse 88 01/12/2019 3:01 PM EDT Temperature - - Respiratory Rate - - Oxygen Saturation 98% 01/12/2019 3:01 PM EDT Inhaled Oxygen Concentration - - Weight 107 kg (235 lb 6.4 oz) 01/12/2019 3:01 PM EDT Height - - Body Mass Index 33.06 12/07/2018 3:25 PM EDT documented in this encounter Patient Instructions * Patient Instructions* Mary Sheppard PA-C - 01/12/2019 3:23 PM EDT Topamax 100 mg - Take 1/2 tablet at bedtime x 1 week then increase to one tablet at bedtime Gabapentin 300 mg - take 1 tablet every other day x 1 week. Do not take tonight (Friday 01/12) and then stop after Friday 01/19 documented in this encounter Progress Notes * Mary Sheppard PA-C - 01/12/2019 2:57 PM EDT Subjective Patient roomed and information gathered by Anahi Rojas CMA. Chart Review: Medication List reviewed / reconciled 01/12/2019 3:01 PM by ANAHI ROJAS. Allergy List reviewed 01/12/2019 by ANAHI ROJAS. Problem List reviewed 12/15/2018 by MARY SHEPPARD. Immunization List reviewed 03/23/2018 6:18 AM by SARAHY HARVEY Chart Sections reviewed by provider: Health Maintenance reviewed 01/12/2019 3:07 PM by Anahi Rojas CMA. Yes Barriers to care: Patient does not have a Living Will or Advance Directives Progress Note He is accompanied today by no one Medication compliance: Yes Robert Alexis Jr. is a 53 y.o. male who presents with chief complaint of Eye Problem (pt said pressure is in the back of his head feels like a thumping pain worst when he lays down . worst pain was last night, his legs are feeling weak ); Weakness (pt believe it could be a med he is currently taken (Gabapentin)); and Tremors (feels sick when this happens. ) who is here today for an office visit. Symptoms as above - started Gabapentin to see if would change/improve his symptoms. Has been takingfor approximately one month. States that it worked well for the first couple of days but he has notnoticed any changes since. Feels like his symptoms are getting worse. Feels shaky and weakness in his legs at times. Continues to c/o throbbing in his head - denies any pain but states that he feels pressure in the back of his head as well. States that he has been experiencing intermittent blurriness in his vision. States that the pain and discomfort in his LEFT chest/rib area is gone - has not bothered him for 2-3 weeks now Denies fever/chills, N/V/D, neck pain, abdominal pain, headache, chest pain, shortness of breath. Denies any new symptoms except for the vision issue (blurriness) States that he has lost the hair on the top of his feet ROS As above Future appointments already scheduled: Future Appointments Date Time Provider Department Center 01/23/2019 8:30 AM Kilo Wang MD [facility] Objective Vitals: 01/12/19 1501 BP: 118/74 BP Source: Right Arm Position: Sitting Cuff Size: Large Pulse: 88 Weight: 107 kg (235 lb 6.4 oz) SpO2: 98% Body mass index is 33.06 kg/m??. Physical Exam Nursing note and vitals reviewed. Eyes: Pupils are equal, round, and reactive to light. Conjunctivae and EOM are normal. No nystagmus Neurologic: He is alert and oriented to person, place, and time. Skin: Skin is warm and dry. Psychiatric: He has a normal mood and affect. His behavior is normal. Judgment and thought content normal. Constitutional: He appears well-developed and well-nourished. Assessment and Plan 1. Atypical migraine - topiramate (TOPAMAX) 100 MG tablet; Take 1/2 tablet at bedtime x 1 week then increase to one tablet at bedtime. Dispense: 30 tablet; Refill: 1 2. Vision disturbance Discussed ongoing symptoms and possible etiologies - atypical migraines versus cluster headaches Has had extensive workup - blood work, imaging and referrals Plan to wean off Gabapentin since he has not noticed any change in his symptoms - will take Gabapentin every other day x 1 week then discontinue Plan to try Topamax 100 mg - 1/2 tablet at bedtime x 1 week then increase to one tablet at bedtime Discussed repeat MRI of brain - will hold for now since seeing Neurology Has appointment with Neurology 01/23/19 Discussed signs and symptoms that warrant further evaluation Return to office with any new or worsening symptoms. Robert verbalized understanding of above. documented in this encounter Plan of Treatment Not on file documented as of this encounter Visit Diagnoses Diagnosis Atypical migraine- Primary Other forms of migraine, without mention of intractable migraine without mention of status migrainosus Vision disturbance Unspecified visual disturbance documented in this encounter Care Teams Production Line Assembler Relationship Specialty Start Date End Date Mary Sheppard PA-C [address] [address] PCP - General Family Practice 04/12/18 07/10/23 Kilo Wang MD Consulting Physician Neurology 08/30/16 12/01/21 Juan Haddad MD [address] [address] Otolaryngology 09/23/17 documented as of this encounter
--- OUTSIDE RECORDS SUMMARY | 2024-06-24 04:38 | XMS_ITS | Encounter Summary ---
Author Organization [facility] alth Address [address] [place] [address] Care Team Providers Care Supply Chain Program Manager Name Role Phone Kilo Wang MD Unavailable [phone] Juan Haddad MD Unavailable [phone] Dasha Sheppard PA-C Primary Care Provider Reason for Visit * Reason Onset Date Comments Medication Check 01/12/2019 gabapentin - he ad feels like it's going to explode Head Problem 01/12/2019 throbbing getti ng worse in the past 4-5 days Eye Pain 01/12/2019 eyes hurting so mething awful started after taking gabapentin Encounter Details Date Type Department Care Team (Late st Contact Info) Description 01/12/2019 Nurse Triage [facility] Line [address], [address] [place] [id number] Dasha Sheppard, PAGorgeC [address] [facility] [place] [address] Medication Check (gabapentin - head feels like it's going to explode); Head Problem ( throbbing getting worse in the past 4-5 days ); Eye Pain ( eyes hurting something awful started after taking gabapentin) Social History Tobacco Use Types Packs/Day Years [...] Telephone Encounter - Dasha Sheppard PA-C - 01/12/2019 12:10 PM EDT Note reviewed * Telephone Encounter - Radha Brooke LPN - 01/12/2019 11:36 AM EDT Patient feels his symptoms have gotten worse since he started gabapentin - head throbbing and eye pain. Patient would like to stop gabapentin - has neurology visit on 01/23/19. Patient scheduled in same day 1500 today. Reason for Disposition ??? Blurred vision and new or worsening Not new but is worse - legs feel week Additional Information ??? Negative: Followed an eye injury ??? Negative: Eye pain from chemical in the eye ??? Negative: Eye pain from foreign body in eye ??? Negative: Has sinus pain or pressure ??? Negative: Severe eye pain ??? Negative: Complete loss of vision in one or both eyes ??? Negative: Eyelids are very swollen (shut or almost) and fever ??? Negative: Eyelid (outer) is very red and fever ??? Negative: Foreign body sensation ('feels like something is in there') and irrigation didn't help ??? Negative: Vomiting ??? Negative: Ulcer or sore seen on the cornea (clear center part of the eye) ??? Negative: Recent eye surgery and increasing eye pain Protocols used: EYE PAIN-A-OH documented in this encounter Plan of Treatment Not on file documented as of this encounter Visit Diagnoses Not on filedocumented in this encounter Care Teams Supply Chain Program Manager Relationship Specialty Start Date End Date Dasha Sheppard PA-C [address] [facility] [place] [address] PCP - General Family Practice 04/12/18 07/10/23 Kilo Wang MD Consulting Physician Neurology 08/30/16 12/01/21 Juan Haddad MD [address] [place] [address] Otolaryngology 09/23/17 documented as of this encounter
--- OUTSIDE RECORDS SUMMARY | 2024-06-24 04:38 | XMS_ITS | Encounter Summary ---
Author Organization [facility] [address] [address] Care Team Providers Care Rnfa Name Role Phone Kilo Wang MD Unavailable Juan Haddad MD Unavailable [phone] Dasha Sheppard PA-C Primary Care Provider Reason for Visit * Test/Procedure/Other (Routine) - Closed Specialty Diagnoses / Procedures Referred By Contac t Referred To Contact Radiology Diagnoses Adrenal mass, left (CMS/HCC) Procedures CT ABDOMEN PELVIS W WO IV AND WO PO CONTRAST CT ABDOMEN PELVIS W IV AND PO CONTRAST Dasha Sheppard, JIA [address] [facility] [place] [address] Phone: tel: fax: [address] [address] Phone: tel: fax: Referral ID Status Reason Start Date Expiration Date Visits Re quested Visits Authorized [id number] Closed 04/25/2018 05/25/2018 1 1 Encounter Details Date Type Department Care Team (Latest Contact Info) Description 04/27/2018 3:00 PM EST Ancillary Procedure [facility] [address] [place] [address] Adrenal mass, left (CMS/HCC) Discharge Disposition: Home/Self Care Social History [...] Associated Diagnosis Comments CT ABDOMEN PELVIS W WO IV AND WO PO CONTRAST Routine 04/27/2018 3:36 PM EST Adrenal mass, left (CMS/HCC) documented in this encounter Results * CT ABDOMEN PELVIS W WO IV AND WO PO CONTRAST (04/27/2018 3:36 PM EST) Anatomical Region Laterality Modality Abdomen Computed Tomogra phy 04/27/2018 3:01 PM EST Impressions 04/27/2018 5:49 PM EST There is a less than 1 cm nodule in the LEFT adrenal gland which is stable dating back to a CT from 2016. In addition, washout characteristics after administration of contrast are also consistent with a benign adenoma. If there are clinical signs or symptoms of adrenal hyperfunction, biochemical evaluation may be appropriate. 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 Extensive diverticulosis of the sigmoid colon without CT evidence for diverticulitis. All exams performed by [facility] utilize one or more of the following dose optimization techniques:automated exposure control, adjustment of the mA and/or kV according to patient size and/or the use of iterative reconstruction techniques. ??Audits are completed at the protocol, device and patient level to ensure compliance. ??All protocols (per device) are periodically reviewed by a team of medical physicists, technologists and radiologists. Dictating Narrative 04/27/2018 5:[address] abdomen and pelvis with and without contrast: History: Less than 1 cm adrenal lesion identified in 2016. This is a follow-up examination. Patient with chronic LEFT upper quadrant abdominal pain. Congenital absence of the LEFT kidney. Technique: Axial scans were performed through the abdomen before and after administration of intravenous contrast and after a 15 minute delay. Contrast: 80 mL Omnipaque 350 intravenously. Comparison: CT for 10/11/2017 and 03/14/2016. Findings: A tiny, 8mm hypodense nodule is identified in the LEFT adrenal gland. The abnormality is stable in size dating back to 2015. Noncontrast density: 18 Hounsfield unit Venous phase density: 39Hounsfield unit Delayed phase density: 19 Hounsfield unit Absolute washout: 95% Relative washout: 51% Analysis: Measurements are challenging due to the lesion's small size. Precontrast density is nondiagnostic. Absolute washout and relative washout are consistent with adenoma. REMAINDER OF ABDOMEN AND PELVIS: There is no right-sided urinary obstruction. On contrast-enhanced images, the liver, spleen, and pancreas all enhance normally. There are no calcified gallstones. There is no biliary dilatation. RIGHT adrenal gland is normal. RIGHT kidney enhances normally without evidence for cortical mass. There is congenital absence of the LEFT kidney. There is no adenopathy by CT size criteria. No bowel dilatation or bowel obstruction. There is extensive diverticulosis of the sigmoid colon. There is no CT evidence for diverticulitis. There is no free fluid within the abdomen or the pelvis. Within the pelvis, the bladder appears normal. Prostate gland is unremarkable. The RIGHT seminal vesicle is normal. The LEFT seminal vesicle is absent. Lung bases are clear. There is scoliosis and degenerative change in the lumbar spine. Procedure Note Matthew Gill MD - 04/27/2018 CT abdomen and pelvis with and without contrast: History: Less than 1 cm adrenal lesion identified in 2016. This is afollow-up examination. Patient with chronic LEFT upper quadrant abdominalpain. Congenital absence of the LEFT kidney. Technique: Axial scans were performed through the abdomen before and afteradministration of intravenous contrast and after a 15 minute delay. Contrast: 80 mL Omnipaque 350 intravenously. Comparison: CT for 10/11/2017 and 03/14/2016. Findings: A tiny, 8mm hypodense nodule is identified in the LEFT adrenal gland. Theabnormality is stable in size dating back to 2015. Noncontrast density: 18 Hounsfield unit Venous phase density: 39Hounsfield unit Delayed phase density: 19 Hounsfield unit Absolute washout: 95% Relative washout: 51% Analysis: Measurements are challenging due to the lesion's small size.Precontrast density is nondiagnostic. Absolute washout and relativewashout are consistent with adenoma. REMAINDER OF ABDOMEN AND PELVIS: There is no right-sided urinary obstruction. On contrast-enhanced images, the liver, spleen, and pancreas all enhancenormally. There are no calcified gallstones. There is no biliarydilatation. RIGHT adrenal gland is normal. RIGHT kidney enhances normally withoutevidence for cortical mass. There is congenital absence of the LEFTkidney. There is no adenopathy by CT size criteria. No bowel dilatation or bowel obstruction. There is extensivediverticulosis of the sigmoid colon. There is no CT evidence fordiverticulitis. There is no free fluid within the abdomen or the pelvis. Within the pelvis, the bladder appears normal. Prostate gland isunremarkable. The RIGHT seminal vesicle is normal. The LEFT seminalvesicle is absent. Lung bases are clear. There is scoliosis and degenerative change in thelumbar spine. IMPRESSION: There is a less than 1 cm nodule in the LEFT adrenal gland which is stabledating back to a CT from 2016. In addition, washout characteristics afteradministration of contrast are also consistent with a benign adenoma. Ifthere are clinical signs or symptoms of adrenal hyperfunction, biochemicalevaluation may be appropriate. 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 Extensive diverticulosis of the sigmoid colon without CT evidence fordiverticulitis. All exams performed by [facility] utilize one or more of the following doseoptimization techniques:automated exposure control, adjustment of the mAand/or kV according to patient size and/or the use of iterativereconstruction techniques. Audits are completed at the protocol, deviceand patient level to ensure compliance. All protocols (per device) areperiodically reviewed by a team of medical physicists, technologists andradiologists. Dictating us Dasha Sheppard PA-C [facility] CT ORDERABLES Fi nal Result documented in this encounter Visit Diagnoses Diagnosis Adrenal mass, left (CMS/HCC) Unspecified disorder of adrenal glands documented in this encounter Administered Medications Inactive Administered Medications - up to 3 most recent administrations Medication Order MAR Action Action Date Dose Rate Site iohexol 350 MG/ML injection- VESICANT 80 mL 80 mL, Intravenous, IMG ONCE PRN, Other, Starting on Lisa 04/27/18 at 1540, For 1 dose, Monitor site closely as product is a VESICANT. Given 04/27/2018 3:41 PM EST 80 mLs right antecubital documented in this encounter Care Teams Rnfa Relationship Specialty Start Date End Date Dasha Sheppard PA-C [address] [place] [id number] PCP - General Family Practice 04/12/18 07/10/23 Kilo Wang MD Consulting Physician Neurology 08/30/16 12/01/21 Juan Haddad MD [address] [place] [address] Otolaryngology 09/23/17 documented as of this encounter
--- OUTSIDE RECORDS SUMMARY | 2024-06-24 04:38 | XMS_ITS | Encounter Summary ---
Author Organization [facility] alth Address [address] [place] [address] Care Team Providers Care Ivf Embryologist Name Role Phone Sal Wright DO Primary Care Provider Kilo Wang MD Unavailable [phone] Juan Haddad MD Unavailable [phone] Reason for Visit * Auth/Cert Specialty Diagnoses / Procedures Referred By Donald carvajal Referred To Contact Diagnoses Left carpal tunnel syndrome Cubital tunnel syndrome, left Left carpal tunnel syndrome Cubital tunnel syndrome, left Procedures LA WRIST ARTHROSCOP,RELEASE XVERS LIG LA REVISE ULNAR NERVE AT WRIST DECOMPRESSION NERVE MEDIAN CARPAL TUNNEL RELEASE: Carpal Tunnel Release DECOMPRESSION NERVE CUBITAL TUNNEL RELEASE: Cubital Tunnel Release Referral ID Status Reason Start Date Expiration Date Visits Re quested Visits Authorized [id number] 1 1 Encounter Details Date Type Department Care Team (Late st Contact Info) Description 03/23/2018 7:47 AM EDT Anesthesia Event [facility] [address] [place] [address] Maynor Lala DO [address] [place] [address] Anesthesia Record Procedure Summary Procedure Name Responsible Anesthesiologist Anesthesia Start Time Anesthesia Stop Time DECOMPRESSION NERVE MEDIAN CARPAL TUNNEL RELEASE: Carpal Tunnel Release (Left: Hand) Maynor Lala DO 03/23/18 0747 03/23/18 0859 Events Date Time Event Comment 03/23/2018 0648 0747 An Start 0747 Anesthesia Time Out 0748 An Start Data 0750 Pre-Anesthetic Assessment 0750 Pre-Oxygenation 0752 An Induction 0754 LMA Insertion 0755 Anesthesia Ready 0813 An Tourn Inflated 0831 An Tourn Deflated 0844 Supraglottic Device D/C'd 0849 PACU w/ Supplemental O2 0849 an stop data 0857 PACU Report I completed my SBAR handoff to the receiving PACU nurse utilizing the Post Anesthesia Checklist report. 0859 An Stop Meds Name Total propofol (DIPRIVAN) 200 mg lidocaine 100 mg/5 mL 100 mg midazolam (VERSED) injection 1 mg/mL 2 m g fentanyl citrate 100 mcg/2 mL vial 100 m cg ondansetron 4 mg dexamethasone (DECADRON) injection 4 mg/ mL 4 mg ceFAZolin (ANCEF) 2 g/100 mL IVPB 2 g lactated ringers (LR) infusion 1,000 mL 850 mL * Agents Name Sevoflurane O2 N2O * Blood No blood administrations on file. Lines, Drains, and Airways Type Details Placement Removal Incision/Puncture 03/02/18; 0853; Incision; Right; hand 03/02/18 0853 by Daphney Isaac RN Incision/Puncture 03/23/18; Incision; Left; wrist 03/23/18 0000 by Nataliia Duffy RN Incision/Puncture 03/23/18; Incision; Left; elbow 03/23/18 0000 by Nataliia Duffy RN PIV 03/23/18; 0657; Nurs e; Right; Hand; [id number] catheter system; 20 gauge; 03/23/18; 0954 03/23/18 0657 by Marbella Bush RN 03/23/18 0954 by Dione Evangelista RN Airway Management 03/23/18; 0754 (rachid moon via procedure documentation); RETAIL AIDE; 5; laryngeal mask airway; 03/23/18; 0844 03/23/18 0754 by Ramon Dobson CRNA 03/23/18 0844 by Ramon Dobson CRNA documented in this encounter Social History Tobacco Use Types Packs/Day Years [...] on file documented as of this encounter OR Notes * Anesthesia Procedure Notes - Ramon Dobson CRNA - 03/23/2018 8:01 AM EDT Associated Order(s): LG AN LMA LMA Date/Time: 03/23/2018 7:54 AM Performed by: RAMON DOBSON Authorized by: MAYNOR LALA Placed By: Provider: BALDEMAR LMA Insertion Details: Preoxygenation: Anesthesia Circuit Induction: Intravenous Mask Airway: Easy Mask Airway Adjuncts: None LMA Size: 5.0 LMA Type: Disposable LMA LMA Insertion: Easy, Atraumatic and Good Seal LMA Placement: LMA Placement Verified, ETCO2 Detected and Good Airway Movement LMA Securement/Safety: Adhesive Tape LMA Post-Insertion Assessment: Airway Complications: None and Dentition Unchanged from Pre-op LMA Removal Criteria: Awake, Alert & Follows Commands, Spontaneous Respirations, Head Lift and Adequate Tidal Volume LMA Removal: 03/23/2018 8:44 AM * Anesthesia Preprocedure Evaluation - Maynor Lala DO - 03/23/2018 6:47 AM EDT PRE-ANESTHETIC EVALUATION Patient Name: Robert Alexis Jr. Procedure: DECOMPRESSION NERVE MEDIAN CARPAL TUNNEL RELEASE: Carpal Tunnel Release (Left Hand)DECOMPRESSION NERVE CUBITAL TUNNEL RELEASE: Cubital Tunnel Release (Left Arm Lower) ASA: 2 NPO STATUS: > 8 hours ASSESSMENT / PLAN: Anesthesia Type: general Induction: Intravenous Airway: LMA Post-op Analgesia: Routine Analgesic Measures Plan Discussed With: RETAIL AIDE Reviewed Items: Correct chart was verified Allergies reviewed Medical History, Notes, and Problem List have been reviewed Pertinent Testing Reviewed ALERTS: PHYSICAL EXAMINATION: Temp: 36.5 ??C HR: 88 BP: (!) 141/91 Resp: 18 SpO2: 98 % Weight: 105 kg (231 lb) Height: 175.3 cm (5' 9 ) BMI: 34.11 AIRWAY EXAM: Mallampati Score: II TM Distance: 4 FB Mouth Opening: Normal Neck ROM: Full DENTAL EXAM: Maxillary Dentition: Normal Mandibular Dentition: Normal CARDIOVASCULAR EXAM: Cardiac Rhythm: Regular Cardiac Rate: Normal Murmur: None PULMONARY EXAM: Breath sounds clear to auscultation CONSENTS: The Anesthesia Plan as well as the associated risks, benefits, and alternatives were discussed withand consented to by: Patient. When possible, the patient, designated agent, and/or telephone services sales representative was given the opportunity to read and sign a written consent form, ask questions, and otherwise participate in the Anesthesia Plan. No Known Allergies Relevant Problems (+) Asthma (+) Essential hypertension Problem List Diagnosis ??? Left carpal tunnel syndrome ??? Right carpal tunnel syndrome ??? Congenital absence of left kidney ??? Lyme disease ??? Cubital tunnel syndrome on left ??? Occipital neuralgia of right side ??? Bilateral carpal tunnel syndrome ??? Vasovagal syncope ??? Anxiety ??? Tubular adenoma of colon. Repeat colonoscopy in APR 2019 ??? Essential hypertension ??? Asthma Past Medical History: Diagnosis Date ??? Asthma ??? Lyme disease Past Surgical History: Procedure Laterality Date ??? ENDOSCOPY, ESOPHAGUS 04/22/2016 ??? HX CARPAL TUNNEL RELEASE Right 03/02/2018 Procedure: DECOMPRESSION NERVE MEDIAN CARPAL TUNNEL RELEASE: Carpal Tunnel Release; Surgeon: Devante Portillo DO; Location: [facility]; Laterality: Right; ??? HX COLONOSCOPY 04/22/2016 ??? HX CYST REMOVAL approx 2015 beneath eye-done at MD office w/ local anesthesia Social History Substance Use Topics ??? Smoking status: Never Smoker ??? Smokeless tobacco: Current User Types: Chew Comment: chewing tobacco 2 cans/week ??? Alcohol use No Prescriptions Prior to Admission Medication Sig Dispense Refill Last Dose ??? aspirin 81 MG chewabletab Take 81 mg by mouth daily. Past Month at Unknown time ??? Doxycycline Monohydrate (VIBRAMYCIN ORAL) Take by mouth once a week (pt states unknown dose weekly for Lyme Disease in gradually increasing dose for total 20 weeks as prescribed by Michelle VILLARREAL [place]). 03/20/2018 ??? HYDROcodone-acetaminophen (NORCO) 5-325 MG TABS pertab Take 1-2 tablets by mouth every 4 hours as needed. Max Daily Amount: 12 tablets 10 tablet 0 Unknown at Unknown time ??? [DISCONTINUED] Cefuroxime Axetil (CEFTIN ORAL) Take by mouth. Not Taking at Unknown time Current Facility-Administered Medications Medication Dose Route Frequency Provider Last Rate Last Dose ??? ceFAZolin (ANCEF) 2 g/100 mL IVPB 2 g Intravenous PREPROC Kiarra Johnson PA-C ??? lactated ringers (LR) infusion 1,000 mL 1,000 mL Intravenous Continuous Margy Juarez MD ??? lidocaine (PF) (XYLOCAINE) 1 % injection 0-1 mL 0-1 mL Intradermal PRN Margy Juarez MD ??? NaCl 0.9 % flush 10 mL 10 mL Intravenous PRN Kiarra Johnson PA-C ??? NaCl 0.9 % flush 3-10 mL 3-10 mL Intravenous PRN Kortright, Kiarra, PA-C ??? NaCl 0.9% flush bag 20 mL 20 mL Intravenous PRN Kortright Kiarra, PA-C ??? NaCl 0.9% KVO flush bag 10 mL/hr Intravenous PRN Kortright, Kiarra, PA-C Recent Lab Values 02/17/2018 12/31/2017 6:46 AM 11:09 AM WBC 5.9 5.9 Hct 45.5 44.9 Hgb 15.9 15.8 Platelet count 180 184 Sodium 140 137 Potassium 4.1 4.1 BUN 12 14 Creatinine 0.9 0.9 BUN/CR 13 16 Glucose 91 105 (H) GFR >60 >60 Comment for GFR at 6:46 AM on 02/17/2018: Notes for GFR: 1. Multiply result by 1.21 if patient is black/. 2. Chronic kidney disease: <60 mL/min/1.73 sq.m. Renal Failure: <15 mL/min/1.73 sq.m. Comment for GFR at 11:09 AM on 12/31/2017: Notes for GFR: 1. Multiply result by 1.21 if patient is black/. 2. Chronic kidney disease: <60 mL/min/1.73 sq.m. Renal Failure: <15 mL/min/1.73 sq.m. Anti-Coag Meds (24h ago through future) None No results found. documented in this encounter Miscellaneous Notes * Anesthesia Progress Note - Kevin Benoit MD - 03/23/2018 9:32 AM EDT Post Anesthesia Note ASSESSMENT AND PLAN: Complications None SUBJECTIVE: Pain Pain control satisfactory, analgesics as per physician orders. Nausea Nausea and vomiting control satisfactory, anti-emetics as per physician orders. OBJECTIVE: Vital Signs Temp: 36.2 ??C (03/23/18 08) Vital signs in acceptable range for patient PHYSICAL EXAM: Respiratory Resp: 18 (03/23/18900) SpO2: 95 % (03/23/18900) Airway patent. Cardiovascular BP: 120/70 (03/23/18900) Pulse: 86 (03/23/18900) Cardiovascular function and hydration status stable. Mental Status Mental status recovered, patient participates in evaluation. BLOCK INFORMATION: * BALDEMAR PB - Ramon Dobson CRNA - 03/23/2018 8:03 AM EDT I personally administered anesthesia for this patient under the medical direction of an anesthesiologist (when applicable). I have filed BALDEMAR professional charges accordingly documented in this encounter Plan of Treatment Not on file documented as of this encounter Procedures Procedure Name Priority Date/Time Associated Diagnosis Comments LG AN LMA Routine 03/23/2018 8:01 AM EDT documented in this encounter Results * LG AN LMA (03/23/2018 8:01 AM EDT) Narrative Ramon Dobson CRNA - 03/23/2018 8:01 AM EDT Ramon Dobson CRNA ? 03/23/2018 ??8:45 AM LMA Date/Time: 03/23/2018 7:54 AM Performed by: RAMON DOBSON Authorized by: MAYNOR LALA Placed By: ??Provider: ??BALDEMAR LMA Insertion ??Details: ??Preoxygenation: ??Anesthesia Circuit ??Induction: ??Intravenous ??Mask Airway: ??Easy ??Mask Airway Adjuncts: ??None ??LMA Size: ??5.0 ??LMA Type: ??Disposable LMA ??LMA Insertion: ??Easy, Atraumatic and Good Seal ??LMA Placement: ??LMA Placement Verified, ETCO2 Detected and Good Airway Movement ??LMA Securement/Safety: ??Adhesive Tape LMA Post-Insertion Assessment: ??Airway Complications: ??None and Dentition Unchanged from Pre-op ??LMA Removal Criteria: ??Awake, Alert & Follows Commands, Spontaneous Respirations, Head Lift and Adequate Tidal Volume ??LMA Removal: ??03/23/2018 8:44 AM Procedure Note Ramon Dobson, BALDEMAR - 03/23/2018 8:01 AM EDT LMA Date/Time: 03/23/2018 7:54 AM Performed by: RAMON DOBSON Authorized by: MAYNOR LALA Placed By: Provider: BALDEMAR LMA Insertion Details: Preoxygenation: Anesthesia Circuit Induction: Intravenous Mask Airway: Easy Mask Airway Adjuncts: None LMA Size: 5.0 LMA Type: Disposable LMA LMA Insertion: Easy, Atraumatic and Good Seal LMA Placement: LMA Placement Verified, ETCO2 Detected and Good AirwayMovement LMA Securement/Safety: Adhesive Tape LMA Post-Insertion Assessment: Airway Complications: None and Dentition Unchanged from Pre-op LMA Removal Criteria: Awake, Alert & Follows Commands, SpontaneousRespirations, Head Lift and Adequate Tidal Volume LMA Removal: 03/23/2018 8:44 AM Maynor Lala DO IP PERFORMABLES Edited documented in this encounter Visit Diagnoses Not on filedocumented in this encounter Administered Medications Inactive Administered Medications - up to 3 most recent administrations Medication Order MAR Action Action Date Dose Rate Site ceFAZolin (ANCEF) 2 g/100 mL IVPB 2 g, Intravenous, Administer over 30 Minutes, IN PREP OR OR AREA, Other, Starting on Lisa 03/23/18 at 0623, For 1 dose, 1 hour prior to surgery, C) Pre-Op/Pre-ProcedureIndications:Per ioperative Pharmacoprophylaxis Given 03/23/2018 7:55 AM EDT 2 g dexamethasone (DECADRON) injection onestep once prn, Starting on Lisa 03/23/18 at 0752, D) Intra-Op/Intra-Procedure Given 03/23/2018 7:52 AM EDT 4 mg fentaNYL injection onestep once prn, Severe Pain (8-10), Starting on Lisa 03/23/18 at 0750, D) Intra-Op/Intra-Procedure Given 03/23/2018 8:13 AM EDT 50 mcg Given 03/23/2018 7:50 AM EDT 50 mcg lidocaine (cardiac) (XYLOCAINE) injection onestep once prn, Starting on Lisa 03/23/18 at 0752, D) Intra-Op/Intra-Procedure Given 03/23/2018 7:52 AM EDT 100 mg midazolam (VERSED) injection onestep once prn, Starting on Lisa 03/23/18 at 0747, D) Intra-Op/Intra-Procedure Given 03/23/2018 7:47 AM EDT 2 mg ondansetron (ZOFRAN) injection onestep once prn, Nausea, Starting on Lisa 03/23/18 at 0838, D) Intra-Op/Intra-Procedure Given 03/23/2018 8:38 AM EDT 4 mg propofol (DIPRIVAN) injection onestep once prn, Starting on Lisa 03/23/18 at 0752, D) Intra-Op/Intra-Procedure Given 03/23/2018 7:52 AM EDT 200 mg documented in this encounter Care Teams Ivf Embryologist Relationship Specialty Start Date End Date Sal Wright DO PCP - General 08/28/12 04/11/18 Kilo Wang MD Consulting Physician Neurology 08/30/16 12/01/21 Juan Haddad MD [address] [place] [address] Otolaryngology 09/23/17 documented as of this encounter
--- OUTSIDE RECORDS SUMMARY | 2024-06-24 04:38 | XMS_ITS | Encounter Summary ---
Author Organization [facility] alth Address [address] [place] [address] Care Team Providers Care Metal Burrer Name Role Phone Kilo Wang MD Unavailable [phone] Juan Haddad MD Unavailable [phone] Dasha Sheppard-C Primary Care Provider Jason Mosquera MD Unavailable [phone] Reason for Referral * New Consult/Second Opinion (Within 2 Weeks) - Closed Specialty Diagnoses / Procedures Referred By Contact Referred To Contact Endocrinology, Diabetes & Metabolism / Endocrinology Diagnoses Adenoma of left adrenal gland Jason Morrison CRNP [address] [facility] [address] [place] [address] Phone: tel: fax: Diabetes & Endocrinology [address] [facility] [address] [place] [address] Phone: tel: fax: Referral ID Status Reason Start Date Expiration Date V isits Requested Visits Authorized [id number] Closed Co-managemen t Until Stable 11/30/2018 11/30/2019 1 1 Comments Known non activated adrenal adenoma. Has had e-consult in the past. Would like to be seen in office for ongoing issues. * New Consult/Second Opinion (Within 2 Weeks) - Canceled Specialty Diagnoses / Procedures Referred By Contac t Referred To Contact Diagnoses Bilateral occipital neuralgia Jason Morrison CRNP [address] [facility] [address] [place] [address] Phone: tel: fax: Referral ID Status Reason Start Date Expiration Date V isits Requested Visits Authorized [id number] Canceled Co-manageme nt Until Stable 11/30/2018 11/30/2019 1 1 Comments Clinical Question: Has seen Dr. Wang in the past. For occipital neuralgia and tremors in upper and lower extremeties. Advised to return for EMG/NCS is symptoms return/worsen Reason for Visit * Reason Comments Numbness on right side of hea d on and off for years, now pressure on both sides of heads Rib Pain spot on left side of chest in rib area on going, had ultra sound Encounter Details Date Type Department Care Team (Late st Contact Info) Description 11/30/2018 8:20 AM EDT Office Visit Family Medicine [place] [address] [facility] [place] [id number] Jason Morrison CRNP [address] [facility] [address] [place] [id number] Bilateral occipital neuralgia (Primary Dx); Adenoma of left adrenal gland Discharge Disposition: Home/Self Care Social History Tobacco [...] Reading Time Taken Comments Blood Pressure 122/78 11/30/2018 8:23 AM EDT Pulse 84 11/30/2018 8:23 AM EDT Temperature - - Respiratory Rate - - Oxygen Saturation - - Inhaled Oxygen Concentration - - Weight 108 kg (237 lb) 11/30/2018 8:23 AM EDT Height - - Body Mass Index 32.14 07/31/2018 11:12 AM EST documented in this encounter Progress Notes * Sierra Delcid MD - 12/27/2018 2:55 PM EDT Note reviewed. I agree with it in its entirety including the assessment and plan. Electronically Signed by Sierra Delcid MD I'm confused what the picture of his chest/abdomen is showing. If you are referring to the prominence of his lower LEFT anterior ribs, I would not refer to that as a palpable/visible mass. * Jason Morrison CRNP - 11/30/2018 8:23 AM EDT Images from the original note were not included. Subjective Patient roomed and information gathered by Criss Alex LPN. Chart Review: Medication List reviewed / reconciled 12/02/2018 4:46 PM by JASON MORRISON. Allergy List reviewed 12/02/2018 by JASON MORRISON. Problem List reviewed 12/02/2018 by JASON MORRISON. Immunization List reviewed 03/23/2018 6:18 AM by SARAHY HARVEY. Chart Sections reviewed by provider: Tobacco Allergies Meds Problems Med Hx Surg Hx Fam Hx Active Problems: He has Essential hypertension; Asthma; [...] Take 1 tablet by mouth daily. ??? gabapentin (NEURONTIN) 300 MG capsule Take 1 capsule by mouth at bedtime. (Patient not taking: Reported on 11/30/2018.) ??? [place] Extract 500 MG CAPS Take 1 capsule by mouth 2 times daily . Allergies: He has No Known Allergies. Past Medical History: He has a past medical history of Asthma and Lyme disease. Past Surgical History: He [...] (age of onset: 69) in his mother. There is no immunization history for the selected administration types on file for this patient. Past medical, surgical, and family history reviewed with significant findings. Health Maintenance reviewed 11/30/2018 8:27 AM by Criss Alex LPN. Yes Since the last visit here, was the patient seen by a specialist? Yes Barriers to care: Patient does not have a Living Will or Advance Directives Progress Note He is accompanied today by no one Medication compliance: Yes Robert Alexis Jr. is a 53 y.o. male who presents with chief complaint of Numbness (on right side of head on and off for years, now pressure on both sides of heads) and Rib Pain (spot on left side ofchest in rib area on going, had ultra sound) who is here today for an office visit. RIGHT sided head numbness for years. Now feeling throbbing pressure on both sides of head. Not a headache , just feels sick( not nauseous, just sick ) blurry vision when it is at its worst. Has alsoexperienced shaking of arms and legs. Per Neurology if these symptoms reoccur he should be seen again in their office for EMG/NCS testing. Feels pressure under LEFT ribs over site of known adrenal adenoma. Known adenoma LEFT upper quadrant that he can feel. Has been addressed in the past with e-consult to endo and tests that determined adenoma was inactive. Pt would like to see endocrinology at this time to Address further. Review of Systems Constitutional: Negative for chills and fever. Respiratory: Negative for shortness of breath. Cardiovascular: Negative for chest pain. Neurological: Negative for headaches and dizziness. see history of present illness Future appointments already scheduled: Future Appointments Date Time Provider Department Center 12/07/2018 3:30 PM Jason Mosquera MD [facility] 12/13/2018 5:00 PM Dasha Sheppard PA-C [facility] Line Objective Vitals: 11/30/18 0823 BP: 122/78 BP Source: Right Arm Position: Sitting Cuff Size: Large Pulse: 84 Weight: 108 kg (237 lb) Body mass index is 32.14 kg/m??. Physical Exam Eyes: Pupils are equal, round, and reactive to light. Conjunctivae and EOM are normal. Cardiovascular: Normal rate and regular rhythm. Pulmonary/Chest: Effort normal and breath sounds normal. Abdominal: Mass: left lower rib prominence, no pain with palpation, no erythema, increased warmth, or tenderness to palpation. pictured below. Neurologic: He is alert. He has normal strength. A sensory deficit (touch feels the same on both sides of head, but pt describes as dulled sensation ) is present. No cranial nerve deficit (except numb sensation in head.). Coordination and gait normal. Skin: Skin is warm and dry. Psychiatric: He has a normal mood and affect. His behavior is normal. Assessment and Plan 1. Bilateral occipital neuralgia - AMB REFERRAL TO NEUROLOGY 2. Adenoma of left adrenal gland - AMB REFERRAL TO [facility] 1. Per Neurology last note, if symptoms continue/ worsen they would want to see back for EMG/NCS testing. 2. Pt becoming more anxious about known adenoma and would like to see endocrinology. Referral placed. Follow up with PCP, NEER[place] in 2 weeks for further work up. Reviewed plan of care with Dr. Delcid. E4 documented in this encounter Plan of Treatment Scheduled Referrals Name Type Priority Associated Diagnoses Order Schedule AMB REFERRAL TO NEUROLOGY Outpatient Referral Routine Bilateral occipital neuralgia Ordered: 11/30/2018 AMB REFERRAL TO [facility] Outpatient Referral Routine Adenoma of left adrenal gland Ordered: 11/30/2018 documented as of this encounter Visit Diagnoses Diagnosis Bilateral occipital neuralgia- Primary Other syndromes affecting cervical region Adenoma of left adrenal gland Benign neoplasm of adrenal gland documented in this encounter Care Teams Metal Burrer Relationship Specialty Start Date End Date Dasha Sheppard PA-C [address] [address] PCP - General Family Practice 04/12/18 07/10/23 Kilo Wang MD Consulting Physician Neurology 08/30/16 12/01/21 Juan Haddad MD [address] [address] Otolaryngology 09/23/17 Jason Mosquera MD [address], [place] [address] [place] [address] Internal Sales Engineer Endocrinology, Diabetes & Metabolism 12/07/18 12/10/18 documented as of this encounter
--- OUTSIDE RECORDS SUMMARY | 2024-06-24 04:38 | XMS_ITS | Encounter Summary ---
Author Organization [facility] alth Address [address] [facility] [place] [address] Care Team Providers Care Lumber Buyer Name Role Phone Kilo Wang MD Unavailable [phone] Juan Haddad MD Unavailable [phone] Dasha Sheppard PA-C Primary Care Provider Reason for Visit * Reason Onset Date Comments Appointment 07/27/2018 Encounter Details Date Type Department Care Team (Late st Contact Info) Description 07/27/2018 Telephone [facility] [address] [place] [address] Documentation, Only Appointment Social History Tobacco Use Types Packs/Day Years [...] encounter Miscellaneous Notes * Telephone Encounter - Molly Farr - 07/27/2018 11:18 AM EST PCP records including CT Chest (07/03/18) and Labs (07/03/18) available in Epic. * Telephone Encounter - Brianne Charles - 07/27/2018 10:59 AM EST [facility] 07/27/2018 Name of person you spoke with: Patient Phone # Robert Alexis Jr. 1965 Referring physician: Dasha Sheppard PA-C Practice Name: [facility] Practice Number: [phone] Practice Fax: Reason for appointment: Burning in chest, sob Previous Utilization Manager: Previous PCP(if not established with current PCP): Recently Hospitalized: If so, Hospital name: Recent cardiac testing at a non-[facility] facility: Recent Labs: no If Yes, Where did patient have them completed: No If this appointment is for preop evaluation, What type of anesthesia will be used for the procedure? Please note if the patient needs a CXR please let the caller know the CXR will have to be completedelsewhere Records: Pt is going to sign a release prior to appt no Pt is bringing their records to the appt no Release already signed at other office no Notes: 07/31/18 @ [address] Rushing at [place] Brianne Charles documented in this encounter Plan of Treatment Not on file documented as of this encounter Visit Diagnoses Not on filedocumented in this encounter Care Teams Lumber Buyer Relationship Specialty Start Date End Date Dasha Sheppard PA-C [address] [address] PCP - General Family Practice 04/12/18 07/10/23 Kilo Wang MD Consulting Physician Neurology 08/30/16 12/01/21 Juan Haddad MD [address] [address] Otolaryngology 09/23/17 documented as of this encounter
--- OUTSIDE RECORDS SUMMARY | 2024-06-24 04:38 | XMS_ITS | Encounter Summary ---
Author Organization [facility] [address] [address] Care Team Providers Care Clinical Nursing Manager Name Role Phone Kilo Wang MD Unavailable [phone] Juan Haddad MD Unavailable [phone] Dasha Sheppard PAGorgeC Primary Care Provider Reason for Visit * Reason Comments Neck Pain throbbing it comes a nd goes Results bone spect Recheck Encounter Details Date Type Department Care Team (Late st Contact Info) Description 07/04/2018 9:00 AM EST Office Visit [facility] [address] [place] [address] Chato Isaac PAGorgeC [address] [place] [address] Neck pain (Primary Dx) Discharge Disposition: Home/Self Care Social [...] Sign Reading Time Taken Comments Blood Pressure 128/92 07/04/2018 9:03 AM EST Pulse 82 07/04/2018 9:03 AM EST Temperature - - Respiratory Rate - - Oxygen Saturation - - Inhaled Oxygen Concentration - - Weight 107 kg (235 lb) 07/04/2018 9:03 AM EST Height 182.9 cm (6') 07/04/2018 9:03 AM EST Body Mass Index 31.87 07/04/2018 9:03 AM EST documented in this encounter Progress Notes * Chato Isaac PA-C - 07/04/2018 9:19 AM EST Mr. Alexis returns for follow-up after a more recent evaluation of right-sided neck pain. He notes this started insidiously several months ago. He notes no specific precipitating event. He describes it as a throbbing type pain in the right portion of the neck which is better with activity and worse with rest. It comes and goes. There is no upper extremity involvement by his statement. He characterizes it lessens the pain and more of an irritation. He has no numbness. He has no weakness. He has no change in dexterity. He has had no formal treatment with respect to physical therapy or interventional pain treatment. The patient did complete a recommended SPECT scan which is discussed below. PHYSICAL EXAMINATION: MUSCULOSKELETAL: The patient has normal range of [...] normal limits. Speech is clear and fluent. Sensory examination is normal to light touch, [...] ataxia. The patient is able to perform [id number] gait. RADIOGRAPHIC FINDINGS: Nuclear medicine SPECT bone scan examination cervical spine ?? History: Neck pain, M54.2. ?? COMPARISON: Prior bone scan. ?? Correlation: Cervical spine radiographs 04/20/2018. ?? The patient was injected intravenously with 27.4 millicuries of technetium MDP and planar and SPECTCT imaging of the cervical spinal was performed. ??In addition, planar images of the cervical spine. ?? Findings: ?? Seven cervical vertebral segments. ?? C1-C2: No abnormal uptake. ?? C2-C3: No abnormal uptake. ?? C3-C4: Mild endplate uptake with no abnormal facet uptake. ?? C4-C5: No abnormal uptake. ?? C5-C6: Moderate endplate uptake on the RIGHT with no abnormal facet uptake. ?? C6-C7: Minimal endplate uptake with no abnormal facet uptake. ?? C7-T1: No abnormal uptake. ?? There is mild endplate uptake incidentally noted at T8-T9. ?? Mild uptake at the sternoclavicular junction bilaterally. ?? Nonspecific groundglass densities. Mild interstitial changes bilaterally. ?? There are coronary artery calcifications. The heart is borderline in size. IMPRESSION/PLAN: Mr. Alexis has cervical discomfort that is right sided. SPECT imaging reveals several levels of advancing degenerative disc change. He has some other diffuse joint-related issues but not of this clearly explains this perception of discomfort he is experiencing. He was clear in down playing the perception of discomfort as being anything close to pain. It's really more of an irritation by his statement. He just wanted to make sure there was nothing serious going on. I've reassuredhim in this regard. 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 Imaging reflex the sort of degenerative changes that I would expect. Evident groundglass characterizations were addressed by the PCP with follow-up CT scan that was read as normal. Given that he's had no treatment, I recommended some physical therapy in an attempt to treat this is a mechanical issue. However, he's interested in speaking to his PCP as to whether there are possible sources of this perception, outside of origin on the spine. I counseled him that I'm really unable to speculate as to what additional testing would be appropriate. He is being worked up for some sort of a growth on the adrenal gland. He's not been evaluated through endocrinology but is interestedin this and we'll plan to speak to his PCP. There is nothing indicated from a neurosurgical standpoint at this point. All questions were answered to his satisfaction. * Angelica Kimble - 07/04/2018 9:03 AM EST Review of Systems HENT: Positive for tinnitus. Eyes: Positive for blurred vision. Respiratory: Positive for shortness of breath. Musculoskeletal: Positive for neck pain. Neurological: Positive for tremors and weakness. All other systems reviewed and are negative. documented in this encounter Plan of Treatment Not on file documented as of this encounter Visit Diagnoses Diagnosis Neck pain- Primary Cervicalgia documented in this encounter Care Teams Clinical Nursing Manager Relationship Specialty Start Date End Date Dasha Sheppard PA-C [address] [address] PCP - General Family Practice 04/12/18 07/10/23 Kilo Wang MD Consulting Physician Neurology 08/30/16 12/01/21 Juan Haddad MD [address] [address] Otolaryngology 09/23/17 documented as of this encounter
--- OUTSIDE RECORDS SUMMARY | 2024-06-24 04:38 | XMS_ITS | Encounter Summary ---
Author Organization [facility] Address [address] [facility] [address] Care Team Providers Care Thread Laster Name Role Phone Sal Wright DO Primary Care Provider [phone] Kilo Wang MD Unavailable [phone] Juan Haddad MD Unavailable [phone] Reason for Visit * Reason Comments Surgical Followup Encounter Details Date Type Department Care Team (Late st Contact Info) Description 03/14/2018 9:10 AM EDT Office Visit [facility] [address] [facility] [place] [address] Kiarra Johnson PA-C [address] [place] [address] [place] [address] Orthopedic aftercare (Primary Dx); S/P carpal tunnel release Discharge Disposition: Home/Self Care Social History Tobacco [...] as of this encounter Progress Notes * Kiarra Johnson Pa-C - 03/14/2018 8:58 AM EDT Assessment & Plan: Status post right carpal tunnel release I have recommended that the patient avoid heavy lifting, pushing and pulling for 3 additional weeks. The hand may be used lightly. He may shower and bathe and perform desensitization massage. After 3weeks, I recommend that he begin to gradually increase use of the hand. He will follow up now on anas-needed basis. If there are any questions or concerns, he will contact me. He is scheduled for left carpal tunnel release and ulnar nerve decompression on 03/23. We plan to proceed as scheduled. Current visit Dx include: 1. Orthopedic aftercare 2. S/P carpal tunnel release Imaging Results: No results found. Subjective: HPI Robert Alexis Jr. is a 52 y.o. male who presents for a postoperative visit status post right carpal tunnel release. He is doing quite well. He no longer has any numbness or tingling in the hand. He removed his bandage approximately 4-5 days postoperative because it got dirty at work. He applied a bandage over his hand, but no wrap. Objective: Vitals: There were no vitals taken for this visit. Review of Systems Constitutional: Negative for chills, diaphoresis and fever. Respiratory: Negative for shortness of breath. Cardiovascular: Negative for chest pain. Gastrointestinal: Negative for nausea and vomiting. Physical Exam Ortho Exam The incision is nicely healed. There is no erythema or drainage. The sutures were removed without any difficulty and the patient tolerated this well. Range of motion is somewhat limited. A Mild amount of edema is noted. Allergies: He has no active allergies. Past Medical History: He has a past medical history of Asthma and Lyme disease. Past Surgical History: He has a past surgical history that includes ENDOSCOPY, ESOPHAGUS (04/22/2016); HX Colonoscopy (04/22/2016); hx cyst removal (approx 2015); and hx carpal tunnel release (Right,03/02/2018). Social History: He reports that he has never smoked. His smokeless tobacco use includes Chew. He reports that he does not drink alcohol or use drugs. Family History: His family history is not on file. Current Medications: aspirin 81 MG chewabletab Take 81 mg by mouth daily. Doxycycline Monohydrate (VIBRAMYCIN ORAL) Take by mouth once a week (pt states unknown dose weekly for Lyme Disease in gradually increasing dose for total 20 weeks as prescribed by Michelle VILLARREAL [place]). HYDROcodone-acetaminophen (NORCO) 5-325 MG TABS pertab Take 1-2 tablets by mouth every 4 hours as needed. Max Daily Amount: 12 tablets (Patient not taking: Reported on 03/14/2018.) Active Problems: He has Essential hypertension; Asthma; Tubular adenoma of colon. Repeat colonoscopy in APR 2019; Anxiety; Occipital neuralgia of right side; Bilateral carpal tunnel syndrome; Vasovagal syncope; Cubital tunnel syndrome on left; Congenital absence of left kidney; Lyme disease; and Right carpal tunnel syndrome on his problem list. documented in this encounter Plan of Treatment Not on file documented as of this encounter Visit Diagnoses Diagnosis Orthopedic aftercare- Primary Unspecified orthopedic aftercare S/P carpal tunnel release Other postprocedural status documented in this encounter Care Teams Thread Laster Relationship Specialty Start Date End Date Sal Wright DO PCP - General 08/28/12 04/11/18 Kilo Wang MD Consulting Physician Neurology 08/30/16 12/01/21 Juan Haddad MD [address] [place] [address] Otolaryngology 09/23/17 documented as of this encounter
--- OUTSIDE RECORDS SUMMARY | 2024-06-24 04:38 | XMS_ITS | Encounter Summary ---
Author Organization [facility] alth Address [address] [place] [address] Care Team Providers Care Electronic Systems Security Assessment Name Role Phone Kilo Wang MD Unavailable [phone] Juan Haddad MD Unavailable [phone] Mary Sheppard PA-C Primary Care Provider Reason for Referral * New Consult/Second Opinion (Routine) - Closed Specialty Diagnoses / Procedures Referred By Donald carvajal Referred To Contact Neurosurgery Diagnoses Cervical radiculopathy Neck pain Occipital neuralgia of right side Mary Sheppard PA-C [address] [facility] [place] [address] Phone: tel: fax: Luigi Valdivia MD Phone: tel: fax: Referral ID Status Reason Start Date Expiration Date V isits Requested Visits Authorized [id number] Closed Co-managemen t Until Stable 05/29/2018 05/29/2019 1 1 Comments Clinical Question: Reason for Visit * Reason Comments Neck Problem patient has throbbin g in the right side, ongoing for 2 years, last seen 04/08/18 for issue Encounter Details Date Type Department Care Team (Late st Contact Info) Description 05/29/2018 2:00 PM EST Office Visit [facility] [address] [facility] [place] [address] Mary Sheppard PA-C [address] [facility] [place] [address] Cervical radiculopathy (Primary Dx); Neck pain; Occipital neuralgia of right side; Essential hypertension Discharge Disposition: Home/Self Care Social History Tobacco [...] Sign Reading Time Taken Comments Blood Pressure 138/86 05/29/2018 2:04 PM EST Pulse 100 05/29/2018 2:04 PM EST Temperature - - Respiratory Rate - - Oxygen Saturation - - Inhaled Oxygen Concentration - - Weight 110 kg (243 lb 3.2 oz) 05/29/2018 2:04 PM EST Height - - Body Mass Index 32.98 05/02/2018 10:42 AM EST documented in this encounter Progress Notes * Mary Sheppard PA-C - 05/29/2018 2:00 PM EST Subjective: Patient roomed and information gathered by Michael Garcia RN. Chart Review: Medication List reviewed / reconciled 05/29/2018 2:07 PM by MICHAEL GARCIA. Allergy List reviewed 05/29/2018 by MICHAEL GARCIA. Problem List reviewed 04/16/2018 by MARY SHEPPARD. Immunization List reviewed 03/23/2018 6:18 AM by SARAHY HARVEY Chart Sections reviewed by provider: Health Maintenance reviewed 05/29/2018 2:07 PM by Michael Garcia, FIDENCIO. Yes Barriers to care: Patient does not have a Living Will or Advance Directives Progress Note Robert Alexis Jr. is a 53 y.o. male who presents with chief complaint of Neck Problem (patient hasthrobbing in the right side, ongoing for 2 years, last seen 04/08/18 for issue) who is here today for an office visit. He is accompanied today by no one Medication compliance: No medications Symptoms as above that have been ongoing for 2 years. 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 Insurance would not approve cervical MRI until PT was attempted. Referred to PT but he did not proceed - states that he looked up exercises on the computer and tried them at home with no relief. States that last evening his neck and RIGHT side of head pain was severe - states that he could feel throbbing down B/L arms. Symptoms were significant that he did not sleep. Denies numbness/tingling down upper extremities. Reviewed MRA in 2016 which was normal Reviewed most recent cervical XR and abdominal/pelvis CT scan Denies any vision changes, N/V, lightheadedness/dizziness, chest pain, shortness of breath Tried Aleve with no relief so he stopped taking. States that the throbbing is still present today. States that his symptoms seem to wax and wane and there are times that the throbbing is tolerable. Denies any trial of steroids in the past for his symptoms ROS As above Future appointments already scheduled: No future appointments. Objective: Vitals: Vitals: 05/29/18 1404 BP: 138/86 BP Source: Right Arm Position: Sitting Cuff Size: Large Pulse: 100 Weight: 110 kg (243 lb 3.2 oz) Body mass index is 32.98 kg/m??. Physical Exam Nursing note and vitals reviewed. Eyes: Pupils are equal, round, and reactive to light. EOM are normal. No nystagmus Neck: No carotid bruits Cardiovascular: Normal rate, regular rhythm and normal heart sounds. Pulmonary/Chest: Effort normal and breath sounds normal. Musculoskeletal: Cervical back: He exhibits decreased range of motion (increased discomfort at end ranges in all directions), tenderness (C3-7 - decreased sensation, states it feels numb ) and bony tenderness (C3-7). He exhibits no spasm. No TTP of B/L trapezius, levator scapulae muscles or B/L SCM's Neurologic: He is alert and oriented to person, place, and time. No cranial nerve deficit. Coordination normal. Skin: Skin is warm and dry. Psychiatric: He has a normal mood and affect. His behavior is normal. Judgment and thought content normal. Constitutional: He appears well-developed and well-nourished. Assessment & Plan: 1. Cervical radiculopathy - predniSONE (DELTASONE) 20 MG tablet; Take 3 tablets by mouth x 3 days, 2 tablets by mouth x 3 days, 1 tablet by mouth x 4 days. Dispense: 19 tablet; Refill: 0 - AMB REFERRAL TO [facility] 2. Neck pain - AMB REFERRAL TO [facility] 3. Occipital neuralgia of right side - predniSONE (DELTASONE) 20 MG tablet; Take 3 tablets by mouth x 3 days, 2 tablets by mouth x 3 days, 1 tablet by mouth x 4 days. Dispense: 19 tablet; Refill: 0 - AMB REFERRAL TO [facility] 4. Essential hypertension 1,2,3: Discussed medication instructions and precautions, including risks, benefits, and side effects of new medications Discontinue NSAIDS while taking steroids, can resume NSAIDS once steroids are completed. Recommend taking with food Order placed for Neurosurgery/Spine referral 4. Discussed to monitor blood pressure at home if able Discussed if numbers continue to be elevated will need to initiate medication therapy Return to office with any new or worsening symptoms. Robert verbalized understanding of above. documented in this encounter Plan of Treatment Scheduled Referrals Name Type Priority Associated Diagnoses Order Schedule AMB REFERRAL TO [facility] Outpatient Referral Routine Cervical radiculopathy Neck pain Occipital neuralgia of right side Ordered: 05/29/2018 documented as of this encounter Visit Diagnoses Diagnosis Cervical radiculopathy- Primary Brachial neuritis or radiculitis nos Neck pain Cervicalgia Occipital neuralgia of right side Essential hypertension Unspecified essential hypertension documented in this encounter Care Teams Electronic Systems Security Assessment Relationship Specialty Start Date End Date Mary Sheppard PA-C [address] [place] [address] PCP - General Family Practice 04/12/18 07/10/23 Kilo Wang MD Consulting Physician Neurology 08/30/16 12/01/21 Juan Haddad MD [address] [place] [address] Otolaryngology 09/23/17 documented as of this encounter
--- OUTSIDE RECORDS SUMMARY | 2024-06-24 04:38 | XMS_ITS | Encounter Summary ---
Author Organization [facility] alth Address [address] [place] [address] Care Team Providers Care Monkey Breeder Name Role Phone Kilo Wang MD Unavailable [phone] Juan Haddad MD Unavailable Dasha Sheppard PA-C Primary Care Provider Reason for Visit * Reason Onset Date Comments Other 02/24/2019 med question Encounter Details Date Type Department Care Team (Late st Contact Info) Description 02/24/2019 Telephone [facility] Line [address] [facility], [address] [place] [id number] Dasha Sheppard, JIA [address] [place] [address] [place] [address] Other (med question) Social History Tobacco Use Types Packs/Day Years [...] Telephone Encounter - Israel Zuniga LPN - 02/24/2019 11:27 AM EDT Pt ntfd. * Telephone Encounter - [place] Dumonty Nitin - 02/24/2019 11:23 AM EDT Same time is fine. Thanks for asking. * Telephone Encounter - Negrita Melo - 02/24/2019 10:36 AM EDT Pt wants to know if he can take zoloft and norvasc at the same time or an hour apart in the morning. Pt is in [place]. Please leave message if he doesn't answer. documented in this encounter Plan of Treatment Not on file documented as of this encounter Goals Goal Patient Goal Type Associated Problems Recent Progress Patient-Stated? Author Blood Pressure < 140/90 Blood Pressure 160/96( 024 8:13 AM EDT) No Kilo Wang MD documented as of this encounter Visit Diagnoses Not on filedocumented in this encounter Care Teams Monkey Breeder Relationship Specialty Start Date End Date Dasha Sheppard PA-C [address] [address] [address] PCP - General Family Practice 04/12/18 07/10/23 Kilo Wang MD Consulting Physician Neurology 08/30/16 12/01/21 Juan Haddad MD [address] [address] Otolaryngology 09/23/17 documented as of this encounter
--- OUTSIDE RECORDS SUMMARY | 2024-06-24 04:38 | XMS_ITS | Encounter Summary ---
Author Organization [facility] al[facility] Address [address] [facility] [place] [address] Care Team Providers Care Gyn Name Role Phone Kilo Wang MD Unavailable [phone] Juan Haddad MD Unavailable Mary Sheppard PA-C Primary Care Provider Reason for Visit * Reason Onset Date Comments Other 04/21/2018 LM 11-6 Encounter Details Date Type Department Care Team (Late st Contact Info) Description 04/21/2018 Telephone [facility] [address] [facility], [address] [place] [id number] Mary Sheppard, PASeverino [address] [place] [address] [place] [address] Other (LM 11-6) Social History Tobacco Use Types Packs/Day Years [...] encounter Miscellaneous Notes * Telephone Encounter - Jill Mcgraw - 04/25/2018 1:04 PM EST Insurance approved [facility] for [facility] * Telephone Encounter - Mary Sheppard PA-C - 04/25/2018 12:46 PM EST Discussed this with the patient during his office visit - he is insistent that there is something wrong and would like it evaluated again. If insurance denies the CT scan because of discrepancy of CTscans then will notify patient that it was denied * Telephone Encounter - Jill Mcgraw - 04/25/2018 12:40 PM EST Images from the original note were not included. Per note this is a follow up of CT done in 2015. Patient had CT abdomen/pelvis in September 2017 in theemergency dept. Per results note from September 2017 CT I am just clarifying this? * Addendum Note - Mary Sheppard PA-C - 04/25/2018 11:59 AM ESTAddended by: MARY SHEPPARD on: 04/25/2018 11:59 AM Modules accepted: Orders * Telephone Encounter - Mary Sheppard PA-C - 04/25/2018 11:58 AM EST Order placed for CT scan of abdomen/pelvis - surveillance of adrenal mass evident on CT scan in 2015. * Telephone Encounter - Criss Alex LPN - 04/25/2018 10:26 AM EST The patient has been notified of this information and all questions answered. Will discuss PT with first and let us now, please order the CT * Telephone Encounter - Israel Zuniga LPN - 04/25/2018 8:48 AM EST Called patient. No answer. Left message on machine. * Telephone Encounter - Mary Sheppard PA-C - 04/25/2018 7:36 AM EST Please contact Robert regarding his cervical MRI - his insurance company has denied the MRI, requiring PT first prior to approving MRI. Can place an order for a trial of PT and if no improvement in 2-3 weeks can re-order MRI. Also, regarding adrenal adenoma. CT scan of abdomen and pelvis is recommended for follow-up and surveillance of adrenal mass. Please advise if he wishes to proceed with PT for his neck and CT scan of abdomen/pelvis * Telephone Encounter - Jill Mcgarw - 04/24/2018 8:14 AM EST MRI Cervical Spine has been denied by his insurance company. Denial letter scanned into chart. Per insurance needs PT * Telephone Encounter - Israel Zuniga LPN - 04/22/2018 9:09 AM EDT Pt ntfd. Would like CT scan of abdomen/ pelvis. ( if MRI is being approved for the neck could he just get an MRI of the abdomen and pelvis? ) Would rather have MRI instead of ct. fyi * Telephone Encounter - Israel Zuniga LPN - 04/22/2018 8:20 AM EDT Called patient. No answer. Left message on machine. SEE RESULT NOTE. * Telephone Encounter - Susan Landaverde CMA - 04/21/2018 5:18 PM EDT Called patient. No answer. Left message on machine. * Telephone Encounter - Mary Sheppard PA-C - 04/21/2018 5:12 PM EDT Please advise Eliseo that his adrenal mass that was found incidentally in 2016 should be re-evaluated.Recommend repeat CT scan of abdomen/pelvis. As we discussed during his office visit, we were going to re-visit that once his neck imaging was complete. Please advise if he would like to proceed with CT scan. Regarding his bowel issues - would like him to increase his fluid intake (at least 64-80 ounces of water daily) and recommend taking Miralax daily for the next 3-4 days to see if his bowel issues improve * Telephone Encounter - Jill Mcgraw - 04/21/2018 4:20 PM EDT MRI authorization has not be completed yet. Patients insurance asks for x-ray results. Patient justhad x-ray completed so authorization will be started * Telephone Encounter - Hanna Lee - 04/21/2018 3:14 PM EDT Patient called back. He state years ago they found an abnormality on his adrenal gland. Patient does not know exactly what the abnormality is and questioned if that would help get the MRI approved quicker. * Telephone Encounter - Margret Dunn RN - 04/21/2018 10:37 AM EDT Pt wanted you to know that he has had some changes in his bowel movement-he is not going as much asusual and he will have the urge to go and then cannot go documented in this encounter Plan of Treatment Not on file documented as of this encounter Visit Diagnoses Diagnosis Adrenal mass, left (CMS/HCC)- Primary Unspecified disorder of adrenal glands documented in this encounter Care Teams Gyn Relationship Specialty Start Date End Date Mary Sheppard PA-C [address] [place] [address] [address] PCP - General Family Practice 04/12/18 07/10/23 Kilo Wang MD Consulting Physician Neurology 08/30/16 12/01/21 Juan Haddad MD [address] [place] [address] [address] Otolaryngology 09/23/17 documented as of this encounter
--- OUTSIDE RECORDS SUMMARY | 2024-06-24 04:38 | XMS_ITS | Encounter Summary ---
Author Organization [facility] alth Address [address] [facility] [place] [address] Care Team Providers Care Toggle Press Operator Name Role Phone Kilo Wang MD Unavailable [phone] Juan Haddad MD Unavailable [phone] Mary Shell PA-C Primary Care Provider Reason for Referral * New Consult/Second Opinion (Routine) - Canceled Specialty Diagnoses / Procedures Referred By Contcarlie t Referred To Contact Diagnoses Occipital neuralgia of right side Atypical migraine Mary Shell PA-C [address] [place] [address] Phone: tel: fax: Referral ID Status Reason Start Date Expiration Date V isits Requested Visits Authorized [id number] Canceled Co-manageme nt Until Stable 07/26/2018 07/26/2019 1 1 Comments Clinical Question: Needs to see Dr. Ellie Simpson * New Consult/Second Opinion (Routine) - Closed Specialty Diagnoses / Procedures Referred By Contac alena Referred To Contact Cardiology - General / Cardiology Diagnoses Burning in the chest SOB (shortness of breath) on exertion Mary Shell PA-C [address] [place] [address] Phone: tel: fax: [facility] [address] [place] [address] Phone: tel: fax: Referral ID Status Reason Start Date Expiration Date V isits Requested Visits Authorized [id number] Closed Co-managemen t Until Stable 07/26/2018 07/26/2019 1 1 Comments Clinical Question: Reason for Visit * Reason Comments Recheck from 06-27-18 Encounter Details Date Type Department Care Team (Late st Contact Info) Description 07/26/2018 12:00 PM EST Office Visit [facility] Line [address] [facility], [address] [place] [address] Mary Shell PA-C [address] [place] [address] [place] [address] Adrenal mass, left (CMS/HCC) (Primary Dx); Occipital neuralgia of right side; Atypical migraine; Burning in the chest; SOB (shortness of breath) on exertion Discharge Disposition: Home/Self Care Social History Tobacco [...] Sign Reading Time Taken Comments Blood Pressure 128/78 07/26/2018 11:56 AM EST Pulse 86 07/26/2018 11:56 AM EST Temperature - - Respiratory Rate - - Oxygen Saturation - - Inhaled Oxygen Concentration - - Weight 110 kg (243 lb 6.4 oz) 07/26/2018 11:56 A M EST Height - - Body Mass Index 33.01 07/04/2018 9:03 AM EST documented in this encounter Progress Notes * Mary Shell PA-C - 07/26/2018 11:58 AM EST Subjective: Patient roomed and information gathered by Israel Zuniga LPN. Chart Review: Medication List reviewed / reconciled 07/30/2018 6:53 PM by MARY SHELL. Allergy List reviewed 07/30/2018 by MARY SHELL. Problem List reviewed 07/30/2018 by MARY SHELL. Immunization List reviewed 03/23/2018 6:18 AM by SARAHY HARVEY Chart Sections reviewed by provider: Tobacco Allergies Meds Problems Med Hx Surg Hx Fam Hx Health Maintenance reviewed 07/26/2018 11:58 AM by Israel Zuniga LPN. Yes Barriers to care: Patient does not have a Living Will or Advance Directives Progress Note Robert Alexis Jr. is a 53 y.o. male who presents with chief complaint of Recheck (from 1-8-19 ov )who is here today for an office visit. He is accompanied today by no one Medication compliance: Yes Here for follow-up of ongoing chronic issues RIGHT head pain/throbbing: States that the throbbing is present every morning and evening - wakes him up and worse at night. States that he was pacing last night due to the pain and throbbing, unableto sleep. Reports that he did get some relief from the pain while taking steroids. Saw custom framing specialist (Shea RICHARDS / [place] [facility]) and they feel his head pain/throbbing is not from his neck issue. Chests pain: States that for the past 1-2 weeks he has been experiencing intermittent burning pain in LEFT chest and shortness of breath when he lays down and during exertion. 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 Had recent echocardiogram, normal LV function with EF of 60-65%. Denies any chest burning or shortness of breath presently during office visit. States that the burning does not seem to be related to food Saw combination presser again for the rash on his chest - states that the Tile Sorter thinks the cream (unsure name of cream) she prescribed made his rash worse - prescribed Doxycycline for 30 days (Folliculitis) but he states that he is not taking 30 days of Doxycycline. States that when he was taking three different antibiotics, including Doxycycline, he rash was present and did not change. States that for a year and half he took antibiotics and he is not taking anything he doesn't need. Reviewed econsult from Endocrine regarding adrenal adenoma. Endocrine recommended testing to ascertain if the adenoma is active. Offered to do the testing or place order for referral. Prefers to do recommended testing first then referral to Endo if needed ROS Future appointments already scheduled: Future Appointments Date Time Provider Department Center 07/31/2018 11:20 AM Matthew Rushing MD [facility] Objective: Vitals: Vitals: 07/26/18 1156 BP: 128/78 BP Source: Right Arm Position: Sitting Cuff Size: Large Pulse: 86 Weight: 110 kg (243 lb 6.4 oz) Body mass index is 33.01 kg/m??. Physical Exam Nursing note and vitals [...] normal. Constitutional: He appears well-developed and well-nourished. Procedures: Procedures Assessment & Plan: 1. Adrenal mass, left (CMS/HCC) 2. Occipital neuralgia of right side - gabapentin (NEURONTIN) 300 MG capsule; Take 1 capsule by mouth at bedtime. Dispense: 30 capsule; Refill: 1 - AMB REFERRAL TO [facility] 3. Atypical migraine - gabapentin (NEURONTIN) 300 MG capsule; Take 1 capsule by mouth at bedtime. Dispense: 30 capsule; Refill: 1 - AMB REFERRAL TO [facility] 4. Burning in the chest - [facility]B [facility] 5. SOB (shortness of breath) on exertion - AMB RE[facility]ERRAL [facility] Other orders - [place] Extract 500 MG CAPS; Take by mouth. Spent greater than half of this 30 minute visit in face to face counseling with the patient and/or care coordination. 1. Prefers to having testing done first as recommended by Endocrine (Natasha) Discussed that I will clarify the specialized testing and advise when orders are in the system 2,3. Discussed in depth his ongoing RIGHT occipital pain/throbbing Plan to initiate a trial of gabapentin. Discussed medication instructions and precautions, including risks, benefits, and side effects of new medications. Plan to start at bedtime for now then increase to BID Placed order to consult with Neurology - discussed if symptoms could be a type of atypical migraine. 4,5. Had recent echocardiogram Order placed for Cardiology referral - discussed possible nuclear stress test to further evaluate symptoms Discussed signs and symptoms that warrant further evaluation in the ED Clinical staff updated medication list as above Will follow-up regarding Endocrine/adrenal adenoma testing Return to office with any new or worsening symptoms. Robert verbalized understanding of above. * Israel Zuniga LPN - 07/26/2018 11:55 AM EST Subjective: Patient roomed and information gathered by Israel Zuniga LPN. Chart Review: Medication List reviewed / reconciled 07/26/2018 11:58 AM by ISRAEL ZUNIGA. Allergy List reviewed 07/26/2018 by ISRAEL ZUNIGA. Problem List reviewed 06/28/2018 by MARY SHELL. Immunization List reviewed 03/23/2018 6:18 AM by SARAHY HARVEY Chart Sections reviewed by provider: CHENTE OWENS Future appointments already scheduled: Future Appointments Date Time Provider Department Center 07/26/2018 12:00 PM Mary Shell PA-C [facility] Objective: Vitals: Vitals: 07/26/18 1156 BP: 128/78 BP Source: Right Arm Position: Sitting Cuff Size: Large Pulse: 86 Weight: 110 kg (243 lb 6.4 oz) Body mass index is 33.01 kg/m??. Physical Exam Procedures: Procedures Assessment & Plan: documented in this encounter Plan of Treatment Scheduled Referrals Name Type Priority Associated Diagnoses Orde r Schedule [facility]B [facility]ERRAL [facility] Outpatient Referral Routine Burning in the chest SOB (shortness of breath) on exertion Ordered: 07/26/2018 AMB REFERRAL TO [facility] Outpatient Referral Routine Occipital neuralgia of right side Atypical migraine Ordered: 07/26/2018 documented as of this encounter Visit Diagnoses Diagnosis Adrenal mass, left (CMS/HCC)- Primary Unspecified disorder of adrenal glands Occipital neuralgia of right side Atypical migraine Other forms of migraine, without mention of intractable migraine without mention of status migrainosus Burning in the chest Other chest pain SOB (shortness of breath) on exertion Shortness of breath documented in this encounter Care Teams Toggle Press Operator Relationship Specialty Start Date End Date Mary Shell PA-C [address] [place] [address] PCP - General Family Practice 04/12/18 07/10/23 Kilo Wang MD Consulting Physician Neurology 08/30/16 12/01/21 Juan Haddad MD [address] [place] [address] Otolaryngology 09/23/17 documented as of this encounter
--- OUTSIDE RECORDS SUMMARY | 2024-06-24 04:38 | XMS_ITS | Encounter Summary ---
Author Organization [facility] [address] Address 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 Operator Name Role Phone Kilo Wang MD Unavailable [phone] Juan Haddad MD Unavailable [phone] Dasha Sheppard SC-C Primary Care Provider Encounter Details Date Type Department Care Team (Late st Contact Info) Description 07/25/2018 E-Consult Diabetes & Endocrinology [address] [facility] [address] [place] [address] Chato Mosquera MD [address] [facility] [address] [place] [address] Social History Tobacco Use Types Packs/Day Years [...] as of this encounter Progress Notes * Chato Mosquera MD - 07/25/2018 2:01 PM EST I agree that those reports are a bit difficult to correlate but I think the bottom-line is that theimaging shows benign characteristics which are reassuring that this is not a cancer. The size is a separate issue. I would check to see if this lesion is functioning. --I would check a 1mg overnight dexamethasone suppression test --I would check plasma metanephrines to look for pheochromocytoma. If these are normal, I would repeat a CT scan in 2 years to make sure the size is stable. We are willing to see in the office if this would be helpful. Take care, Mark Mosquera documented in this encounter Plan of Treatment Not on file documented as of this encounter Visit Diagnoses Not on filedocumented in this encounter Care Teams Steam Shovel Operator Relationship Specialty Start Date End Date Dasha Sheppard PA-C [address] [place] [address] PCP - General Family Practice 04/12/18 07/10/23 Kilo Wang MD Consulting Physician Neurology 08/30/16 12/01/21 Juan Haddad MD [address] [place] [address] Otolaryngology 09/23/17 documented as of this encounter
--- OUTSIDE RECORDS SUMMARY | 2024-06-24 04:38 | XMS_ITS | Encounter Summary ---
Author Organization [facility] [address] [address] Care Team Providers Care Credit Collection Associate Name Role Phone Kilo Wang MD Unavailable [phone] Juan Haddad MD Unavailable [phone] Dasha Sheppard PA-C Primary Care Provider Trey Jennings MD Unavailable +[phone] Guerita Elliott-C Unavailable +[phone] Matthew Rushing MD Unavailable +[phone] Matthew Rushing MD Unavailable +[phone] Matthew Rushing MD Unavailable +[phone] Matthew Rushing MD Unavailable +[phone] Matthew Rushing MD Unavailable +[phone] Matthew Rushing MD Unavailable +[phone] Matthew Rushing MD Unavailable +[phone] Matthew Rushing MD Unavailable +[phone] Matthew Rushing MD Unavailable +[phone] Matthew Rushing MD Unavailable +[phone] Matthew Rushing MD Unavailable +[phone] Matthew Rushing MD Unavailable +[phone] Matthew Rushing MD Unavailable +[phone] Matthew Rushing MD Unavailable +[phone] Trey Jennings MD Unavailable +4 -5 Guerita Elliott PA-C Unavailable +4 -5 Matthew Rushing MD Unavailable +[phone] Guerita Elliott J PA-C Unavailable +4 -5 Matthew Rushing MD Unavailable +[phone] Matthew Rushing MD Unavailable +[phone] Guerita Elliott PA-C Unavailable +4 -5 Guerita Elliott PA-C Unavailable +4 -[phone] Matthew Rushing MD Unavailable +[phone] Guerita Elliott PA-C Unavailable +4 -5 Matthew Rushing MD Unavailable Matthew Rushing MD Unavailable +[phone] Guerita Elliott PA-C Unavailable +4 -5 Matthew Rushing MD Unavailable +[phone] Guerita Elliott PA-C Unavailable +4 -[phone] Matthew Rushing MD Unavailable +[phone] Guerita Elliott PA-C Unavailable +4 -4995 Guerita Elliott PA-C Unavailable +[phone] Matthew Rushing MD Unavailable +[phone] Guerita Elliott PA-C Unavailable +4 -4995 Matthew Rushing MD Unavailable +[phone] Guerita Elliott PA-C Unavailable +[phone] Matthew Rushing MD Unavailable +[phone] Earl, Guerita J PA-C Unavailable +4 -5 Matthew Rushing MD Unavailable +[phone] Matthew Rushing MD Unavailable +[phone] Guerita Elliott PA-C Unavailable +4 -4995 Matthew Rushing MD Unavailable +[phone] Guerita Elliott J PA-C Unavailable +4 -4995 Guerita Elliott J PA-C Unavailable +4 -4995 Matthew Rushing MD Unavailable +[phone] Matthew Rushing MD Unavailable +[phone] Guerita Elliott J PA-C Unavailable +4 -4995 Guerita Elliott Kim PA-C Unavailable +[phone] Matthew Rushing MD Unavailable +[phone] Matthew Rushing MD Unavailable +[phone] Guerita Elliott Kim PA-C Unavailable +[phone] Guerita Elliott Kim PA-C Unavailable +4 -4995 Matthew Rushing MD Unavailable +[phone] Matthew Rushing MD Unavailable +[phone] Guerita Elliott Kim PA-C Unavailable +4 -4995 NorthbridgeLilli pinoher Alvarez PA-C Unavailable +[phone] Matthew Rushing MD Unavailable +[phone] Matthew Rushing MD Unavailable +[phone] Guerita Elliott J PA-C Unavailable +4 -4995 EarlLilliGuerita J PA-C Unavailable +[phone] Matthew Rushing MD Unavailable +[phone] Guerita Elliott Kim PA-C Unavailable +[phone] Matthew Rushing MD Unavailable +[phone] Matthew Rushing MD Unavailable +[phone] Earl Guerita J PA-C Unavailable +4 -5 Lilli Elliotther J PA-C Unavailable +4 -4995 Matthew Rushing MD Unavailable +[phone] Matthew Rushing MD Unavailable +[phone] Earl Guerita J PA-C Unavailable +4 -4995 Earl Guerita J PA-C Unavailable +4 -4995 Matthew Rushing MD Unavailable +[phone] Matthew Rushing MD Unavailable +[phone] Guerita Elliott PA-C Unavailable +4 -5 Matthew Rushing MD Unavailable +[phone] EarlGuerita J PA-C Unavailable +4 -4995 Matthew Rushing MD Unavailable +[phone] NorthbridgeGuerita pino J PA-C Unavailable +4 -4995 Guerita Elliott J PA-C Unavailable +4 -4995 Matthew Rushing MD Unavailable +[phone] Matthew Rushing MD Unavailable +[phone] Guerita Elliott J PA-C Unavailable +4 -4995 NorthbridgeGuerita pino J PA-C Unavailable +[phone] Matthew Rushing MD Unavailable +[phone] Matthew Rushing MD Unavailable +[phone] Lilli Elliotther J PA-C Unavailable +[phone] Matthew Rushing MD Unavailable +[phone] Guerita Elliott PA-C Unavailable +4 -4995 Matthew Rushing MD Unavailable +[phone] Lilli Elliotther Alvarez PA-C Unavailable +4 -5 Earl Guerita J PA-C Unavailable +4 -5 Matthew Rushing MD Unavailable +[phone] Matthew Rushing MD Unavailable +[phone] Earl Guerita J PA-C Unavailable +4 -4995 Earl Guerita J PA-C Unavailable +[phone] Matthew Rushing MD Unavailable +[phone] Earl Guerita Alvarez PA-C Unavailable +4 -5 Matthew Rushing MD Unavailable +[phone] Matthew Rushing MD Unavailable +[phone] Earl Guerita Alvarez PA-C Unavailable +4 -5 Matthew Rushing MD Unavailable +[phone] Earl Guerita Alvarez PA-C Unavailable +[phone] Matthew Rushing MD Unavailable +[phone] Guerita Elliott PA-C Unavailable +4 -4995 Guerita Elliott PA-C Unavailable +[phone] Matthew Rushing MD Unavailable +[phone] Matthew Rushing MD Unavailable +[phone] Guerita Elliott PA-C Unavailable +[phone] -[phone] Matthew Rushing MD Unavailable +[phone] Guerita Elliott PA-C Unavailable +4 -4995 Matthew Rushing MD Unavailable +[phone] Guerita Elliott PA-C Unavailable +544 -[phone] Guerita Elliott PA-C Unavailable +544 -[phone] Matthew Rushing MD Unavailable +[phone] Guerita Elliott-C Unavailable +4 -4995 Matthew Rushing MD Unavailable +[phone] Guerita Elliott PA-C Unavailable +4 -4995 Matthew Rushing MD Unavailable Guerita Elliott PA-C Unavailable +4 -4995 Matthew Rushing MD Unavailable +[phone] Guerita Elliott-C Unavailable +[phone] Matthew Rushing MD Unavailable +[phone] Guerita Elliott PA-C Unavailable +[phone] Matthew Rushing MD Unavailable +[phone] Txfr Provider [facility], Temporary Primary Care Provider Matthew Rushing MD Unavailable Guerita Elliott-C Unavailable +[phone] Matthew Rushing MD Unavailable +[phone] Guerita Elliott PA-C Unavailable +4 -4995 Matthew Rushing MD Unavailable +[phone] Guerita Elliott-C Unavailable +4 -4995 Guerita Elliott PA-C Unavailable +[phone] Matthew Rushing MD Unavailable +[phone] Guerita Elliott-C Unavailable +[phone] Matthew Rushing MD Unavailable +[phone] Matthew Rushing MD Unavailable +[phone] Guerita Elliott-C Unavailable +[phone] Matthew Rushing MD Unavailable +[phone] Guerita Elliott PA-C Unavailable +4 -5 Guerita Elliott Kim PA-C Unavailable +4 -499 Matthew Rushing MD Unavailable +[phone] Matthew Rushing MD Unavailable +[phone] Guerita Elliott Kim PA-C Unavailable +4 -4995 Matthwe Rushing MD Unavailable +[phone] Guerita Elliott PA-C Unavailable +14 [phone] Matthew Rushing MD Unavailable +[phone] Guerita Elliott PA-C Unavailable +4 -4995 Matthew Rushing MD Unavailable +[phone] Guerita Elliott PA-C Unavailable +4 -4995 Guerita Elliott J PA-C Unavailable +4 -4995 Matthew Rushing MD Unavailable +[phone] Matthew Rushing MD Unavailable +[phone] Guerita Elliott Kim PA-C Unavailable +4 -4995 Matthew Rushing MD Unavailable +[phone] Guerita Elliott Kim PA-C Unavailable +4 -4995 Matthew Rushing MD Unavailable +[phone] Guerita Elliott PA-C Unavailable +4 -4995 Guerita Elliott Kim PA-C Unavailable +[phone] Matthew Rushing MD Unavailable +[phone] Matthew Rushing MD Unavailable +[phone] Guerita Elliott J PA-C Unavailable +4 -4995 EarlGuerita Kim PA-C Unavailable +4 -4995 Matthew Rushing MD Unavailable +[phone] Guerita Elliott PA-C Unavailable +4 -4995 Matthew Rushing MD Unavailable +[phone] Guerita Elliott PA-C Unavailable +4 -4995 Matthew Rushing MD Unavailable +[phone] Matthew Rushing MD Unavailable +[phone] Guerita Elliott PA-C Unavailable +[phone] Matthew Del Toro MD Primary Care Provider +[phone] Guerita Elliott PA-C Unavailable +[phone] Matthew Rushing MD Unavailable +[phone] Guerita Elliott PA-C Unavailable +[phone] Matthew Rushing MD Unavailable +[phone] Guerita Elliott PA-C Unavailable +[phone] Matthew Rushing MD Unavailable +[phone] Guerita Elliott PA-C Unavailable +[phone] Matthew Rushing MD Unavailable +[phone] Guerita Elliott PA-C Unavailable +[phone] Matthew Rushing MD Unavailable +[phone] Matthew Rushing MD Unavailable +[phone] Guerita Elliott PA-C Unavailable +[phone] Guerita Elliott PA-C Unavailable +214 [phone] Matthew Rushing MD Unavailable +[phone] Matthew Rushing MD Unavailable +[phone] Guerita Elliott PA-C Unavailable +[phone] Matthew Rushing MD Unavailable +[phone] Guerita Elliott PA-C Unavailable +[phone] Guerita Elliott Kim PA-C Unavailable +4 -4994 Matthew Rushing MD Unavailable +[phone] Matthew Rushing MD Unavailable +[phone] Guerita Elliott PA-C Unavailable +4 -[phone] EarlGuerita pino Kim PA-C Unavailable +4 -4994 Matthew Rushing MD Unavailable +[phone] Guerita Elliott PA-C Unavailable +4 -5 Matthew Rushing MD Unavailable +[phone] Matthew Rushing MD Unavailable +[phone] Guerita Elliott Kim PA-C Unavailable +4 -5 Matthew Rushing MD Unavailable +[phone] Guerita Elliott Kim PA-C Unavailable + -5 Matthew Rushing MD Unavailable +[phone] Guerita Elliott Kim PA-C Unavailable +4 -5 Guerita Elliott Kim PA-C Unavailable + -5 Matthew Rushing MD Unavailable +[phone] Earl Guerita J PA-C Unavailable +4 -5 Matthew Rushing MD Unavailable +[phone] Earl Guerita Kim PA-C Unavailable + -[phone] Matthew Rushing MD Unavailable +[phone] Matthew Rushing MD Unavailable +[phone] Guerita Elliott PA-C Unavailable +4 -4995 Matthew Rushing MD Unavailable +[phone] Earl Guerita J PA-C Unavailable +4 -4995 Matthew Rushing MD Unavailable +[phone] Guerita Elliott NEERU-C Unavailable +[phone] Guerita Elliott NEERU-C Unavailable Matthew Rushing MD Unavailable +[phone] Guerita Elliott CARLOC Unavailable Matthew Rushing MD Unavailable +[phone] Guerita Elliott CARLOC Unavailable Matthew Rushing MD Unavailable +[phone] Guerita Elliott NEERU-C Unavailable +[phone] Matthew Rushing MD Unavailable +[phone] Guerita Elliott NEERU-C Unavailable +[phone] Matthew Rushing MD Unavailable [phone] Encounter Details Date Type Department Care Team (Late st Contact Info) Description 02/02/2019 Orders Only [facility] [place] [address] [facility] [address] [place] [address] Kilo Wang MD [address] [place] [address] Social History Tobacco Use Types Packs/Day Years [...] Procedure Name Priority Date/Time Associated Diagnosis Comments NERVE CONDUCTION TEST Routine 01/31/2019 documented in this encounter Results * NERVE CONDUCTION TEST (01/31/2019) us Kilo Wang MD NEUROLOGY ORDERABLES Final Resu lt documented in this encounter Visit Diagnoses Not on filedocumented in this encounter Additional Health Concerns Infection Onset Date Last Indicated Resolved Time Symptomatic COVID PUI 06/07/2020 06/07/20202019 5:59 AM EST Asymptomatic COVID PUI 06/07/2020 06/07/202006/10 5:59 AM EST Symptomatic COVID PUI 03/26/2021 03/27/20212020 7:16 PM EDT COVID-19 03/27/2021 03/27/2021 04/17/2021 8:34 PM EDT documented as of this encounter Care Teams Credit Collection Associate Relationship Specialty Start Date End Date Dasha Sheppard PA-C [address] [address] PCP - General Family Practice 04/12/18 07/10/23 Txfr Provider [facility] [place], Temporary [address] [facility] [address] [place] [address] PCP - General Family Practice 07/11/23 12/11/23 Matthew Del Toro MD [address] [facility] [address] [place] [address] PCP - General Family Practice 12/12/23 Kilo Wang MD Consulting Physician Neurology 08/30/16 12/01/21 Juan Haddad MD [address] [address] Otolaryngology 09/23/17 Trey Jennings MD [address] [facility] [address] [place] [address] Consulting Physician Cardiothoracic Surgery 07/13/21 Guerita Elliott PA-C [address] [facility] [address] [place] [address] [facility] Specialist Cardiothoracic Surgery 01/03/22 06/27/22 Matthew Rushing MD [address] [place] [address] [facility] Specialist Cardiology - General 03/07/22 03/28/22 Matthew Rushing MD [address] [place] [address] [facility] Specialist Cardiology - General 04/04/22 04/04/22 Matthew Rushing MD [address] [place] [address] [facility] Specialist Cardiology - General 04/11/22 04/11/22 Matthew Rushing MD [address] [place] [address] [facility] Specialist Cardiology - General 04/18/22 04/18/22 Matthew Rushing MD [address] [place] [address] [facility] Specialist Cardiology - General 04/25/22 04/25/22 Matthew Rushing MD [address] [place] [address] [facility] Specialist Cardiology - General 05/02/22 05/02/22 Matthew Rushing MD [address] [place] [address] [facility] Specialist Cardiology - General 05/09/22 05/09/22 Matthew Rushing MD [address] [place] [address] [facility] Specialist Cardiology - General 05/16/22 05/16/22 Matthew Rushing MD [address] [place] [address] [facility] Specialist Cardiology - General 05/23/22 05/23/22 Matthew Rushing MD [address] [place] [address] [facility] Specialist Cardiology - General 05/30/22 05/30/22 Matthew Rushing MD [address] [place] [address] [facility] Specialist Cardiology - General 06/06/22 06/06/22 Matthew Rushing MD [address] [place] [address] [facility] Specialist Cardiology - General 06/13/22 06/13/22 Matthew Rushing MD [address] [place] [address] [facility] Specialist Cardiology - General 06/20/22 06/20/22 Matthew Rushing MD [address] [place] [address] [facility] Specialist Cardiology - General 06/27/22 06/27/22 Trey Jennings MD [address] [address] [facility] Specialist Cardiothoracic Surgery 06/27/22 Guerita Elliott PA-C [address] [address] [facility] Specialist Cardiothoracic Surgery 07/04/22 3 Matthew Rushing MD [address] [place] [address] [facility] Specialist Cardiology - General 07/04/22 07/04/22 Guerita Elliott PA-C [address] [address] [facility] Specialist Cardiothoracic Surgery 07/11/22 3 Matthew Rushing MD [address] [place] [address] [facility] Specialist Cardiology - General 07/11/22 07/11/22 Matthew Rushing MD [address] [place] [address] [facility] Specialist Cardiology - General 07/18/22 07/18/22 Guerita Elliott PA-C [address] [address] [facility] Specialist Cardiothoracic Surgery 07/18/22 3 Guerita Elliott PA-C [address] [address] [facility] Specialist Cardiothoracic Surgery 07/25/22 07/25/22 Matthew Rushing MD [address] [place] [address] [facility] Specialist Cardiology - General 07/25/22 07/25/22 Guerita Elliott PA-C [address] [address] [facility] Specialist Cardiothoracic Surgery 08/01/22 3 Matthew Rushing MD [address] [place] [address] [facility] Specialist Cardiology - General 08/01/22 08/01/22 Matthew Rushing MD [address] [place] [address] [facility] Specialist Cardiology - General 08/08/22 08/08/22 Guerita Elliott PA-C [address] [address] [facility] Specialist Cardiothoracic Surgery 08/08/22 3 Matthew Rushing MD [address] [place] [address] [facility] Specialist Cardiology - General 08/15/22 08/15/22 Guerita Elliott PA-C [address] [address] [facility] Specialist Cardiothoracic Surgery 08/15/22 3 Matthew Rushing MD [address] [place] [address] [facility] Specialist Cardiology - General 08/22/22 08/22/22 Guerita Elliott PA-C [address] [address] [facility] Specialist Cardiothoracic Surgery 08/22/22 08/22/22 Guerita Elliott PA-C [address] [address] [facility] Specialist Cardiothoracic Surgery 08/29/22 3 Matthew Rushing MD [address] [place] [address] [facility] Specialist Cardiology - General 08/29/22 08/29/22 Guerita Elliott PA-C [address] [address] [facility] Specialist Cardiothoracic Surgery 09/05/22 3 Matthew Rushing MD [address] [place] [address] [facility] Specialist Cardiology - General 09/05/22 09/05/22 Guerita Elliott PA-C [address] [address] [facility] Specialist Cardiothoracic Surgery 09/12/22 Matthew Rushing MD [address] [place] [address] [facility] Specialist Cardiology - General 09/12/22 09/12/22 Guerita Elliott PA-C [address] [address] [facility] Specialist Cardiothoracic Surgery 09/19/22 09/19/22 Matthew Rushing MD [address] [place] [address] [facility] Specialist Cardiology - General 09/19/22 09/19/22 Matthew Rushing MD [address] [place] [address] [facility] Specialist Cardiology - General 09/26/22 09/26/22 Guerita Elliott PA-C [address] [address] [facility] Specialist Cardiothoracic Surgery 09/26/22 09/26/22 Matthew Rushing MD [address] [place] [address] [facility] Specialist Cardiology - General 10/03/22 10/03/22 Guerita Elliott PA-C [address] [address] [facility] Specialist Cardiothoracic Surgery 10/03/22 3 Guerita Elliott PA-C [address] [address] [facility] Specialist Cardiothoracic Surgery 10/10/22 3 Matthew Rushing MD [address] [place] [address] [facility] Specialist Cardiology - General 10/10/22 10/10/22 Matthew Rushing MD [address] [place] [address] [facility] Specialist Cardiology - General 10/17/22 10/17/22 Guerita Elliott PA-C [address] [address] [facility] Specialist Cardiothoracic Surgery 10/17/22 3 Guerita Elliott PA-C [address] [address] [facility] Specialist Cardiothoracic Surgery 10/24/22 10/24/22 Matthew Rushing MD [address] [place] [address] [facility] Specialist Cardiology - General 10/24/22 10/24/22 Matthew Rushing MD [address] [place] [address] [facility] Specialist Cardiology - General 10/31/22 10/31/22 Guerita Elliott PA-C [address] [address] [facility] Specialist Cardiothoracic Surgery 10/31/22 3 Guerita Elliott PA-C [address] [address] [facility] Specialist Cardiothoracic Surgery 11/07/22 3 Matthew Rushing MD [address] [place] [address] [facility] Specialist Cardiology - General 11/07/22 11/07/22 Matthew Rushing MD [address] [place] [address] [facility] Specialist Cardiology - General 11/14/22 11/14/22 Guerita Elliott PA-C [address] [address] [facility] Specialist Cardiothoracic Surgery 11/14/22 3 Guerita Elliott PA-C [address] [address] [facility] Specialist Cardiothoracic Surgery 11/21/22 11/21/22 Matthew Rushing MD [address] [place] [address] [facility] Specialist Cardiology - General 11/21/22 11/21/22 Matthew Rushing MD [address] [place] [address] [facility] Specialist Cardiology - General 11/28/22 11/28/22 Guerita Elliott PA-C [address] [address] [facility] Specialist Cardiothoracic Surgery 11/28/22 3 Guerita Elliott PA-C [address] [address] [facility] Specialist Cardiothoracic Surgery 12/05/22 3 Matthew Rushing MD [address] [place] [address] [facility] Specialist Cardiology - General 12/05/22 12/05/22 Guerita Elliott PA-C [address] [address] [facility] Specialist Cardiothoracic Surgery 12/12/22 3 Matthew Rushing MD [address] [place] [address] [facility] Specialist Cardiology - General 12/12/22 12/12/22 Matthew Rushing MD [address] [place] [address] [facility] Specialist Cardiology - General 12/19/22 12/19/22 Guerita Elliott PA-C [address] [address] [facility] Specialist Cardiothoracic Surgery 12/19/22 12/19/22 Guerita Elliott PA-C [address] [address] [facility] Specialist Cardiothoracic Surgery 12/26/22 12/26/22 Matthew Rushing MD [address] [place] [address] [facility] Specialist Cardiology - General 12/26/22 12/26/22 Matthew Rushing MD [address] [place] [address] [facility] Specialist Cardiology - General 01/02/23 01/02/23 Guerita Elliott PA-C [address] [address] [facility] Specialist Cardiothoracic Surgery 01/02/23 3 Guerita Elliott PA-C [address] [address] [facility] Specialist Cardiothoracic Surgery 01/09/23 3 Matthew Rushing MD [address] [place] [address] [facility] Specialist Cardiology - General 01/09/23 01/09/23 Matthew Rushing MD [address] [place] [address] [facility] Specialist Cardiology - General 01/16/23 01/16/23 Guerita Elliott PA-C [address] [address] [facility] Specialist Cardiothoracic Surgery 01/16/23 3 Matthew Rushing MD [address] [place] [address] [facility] Specialist Cardiology - General 01/23/23 01/23/23 Guerita Elliott PA-C [address] [address] [facility] Specialist Cardiothoracic Surgery 01/23/23 01/23/23 Matthew Rushing MD [address] [place] [address]71 [facility] Specialist Cardiology - General 01/30/23 01/30/23 Guerita Elliott PA-C [address] [address] [facility] Specialist Cardiothoracic Surgery 01/30/23 3 Guerita Elliott PA-C [address] [address] [facility] Specialist Cardiothoracic Surgery 02/06/23 3 Matthew Rushing MD [address] [place] [address] 07169 [facility] Specialist Cardiology - General 02/06/23 02/06/23 Matthew Rushing MD [address] [place] [address]88 [facility] Specialist Cardiology - General 02/13/23 02/13/23 Guerita Elliott PA-C [address] [address] [facility] Specialist Cardiothoracic Surgery 02/13/23 3 Guerita Elliott PA-C [address] [address] [facility] Specialist Cardiothoracic Surgery 02/20/23 02/20/23 Matthew Rushing MD [address] [place] [address] 79659 [facility] Specialist Cardiology - General 02/20/23 02/20/23 Matthew Rushing MD [address] [place] [address] 62518 [facility] Specialist Cardiology - General 02/27/23 02/27/23 Guerita Elliott PA-C [address] [place] [address]846 [facility] Specialist Cardiothoracic Surgery 02/27/23 3 Matthew Rushing MD [address] [place] [address]993 [facility] Specialist Cardiology - General 03/06/23 03/06/23 Guerita Elliott PA-C [address] [address] [facility] Specialist Cardiothoracic Surgery 03/06/23 3 Matthew Rushing MD [address] [place] [address] 73162 [facility] Specialist Cardiology - General 03/13/23 03/13/23 Guerita Elliott PA-C [address] [place] [address] 43882 [facility] Specialist Cardiothoracic Surgery 03/13/23 3 Guerita Elliott PA-C [address] [place] [address] [facility] Specialist Cardiothoracic Surgery 03/20/23 3 Matthew Rushing MD [address] [place] [address] 82060 [facility] Specialist Cardiology - General 03/20/23 03/20/23 Matthew Rushing MD [address] [place] [address] 9[address]50 [facility] Specialist Cardiology - General 03/27/23 03/27/23 Guerita Elliott PA-C [address] [place] [address] [facility] Specialist Cardiothoracic Surgery 03/27/23 3 Guerita Elliott PA-C [address] [place] [address] [facility] Specialist Cardiothoracic Surgery 04/03/23 Matthew Rushing MD [address] [place] [address]91 [facility] Specialist Cardiology - General 04/03/23 04/03/23 Guerita Elliott PA-C [address] [place] [address] [facility] Specialist Cardiothoracic Surgery 04/10/23 Matthew uRshing MD [address] [place] [address] 42939 [facility] Specialist Cardiology - General 04/10/23 04/10/23 Matthew Rushing MD [address] [place] [address] 8[address]17 [facility] Specialist Cardiology - General 04/17/23 04/17/23 Guerita Elliott PA-C [address] [address] [facility] Specialist Cardiothoracic Surgery 04/17/23 Matthew Rushing MD [address] [place] [address] 0[address]67 [facility] Specialist Cardiology - General 04/24/23 04/24/23 Guerita Elliott PA-C [address] [place] [address] 11794 [facility] Specialist Cardiothoracic Surgery 04/24/23 3 Matthew Rushing MD [address] [place] [address] 15612 [facility] Specialist Cardiology - General 05/01/23 05/01/23 Guerita Elliott PA-C [address] [address] [facility] Specialist Cardiothoracic Surgery 05/01/23 Guerita Elliott PA-C [address] [address] [facility] Specialist Cardiothoracic Surgery 05/08/23 Matthew Rushing MD [address] [place] [address] 72729 [facility] Specialist Cardiology - General 05/08/23 05/08/23 Matthew Ruhsing MD [address] [place] [address] [facility] Specialist Cardiology - General 05/15/23 05/15/23 Guerita Elliott PA-C [address] [address] [facility] Specialist Cardiothoracic Surgery 05/15/23 Matthew Rushing MD [address] [place] [address] 94385 [facility] Specialist Cardiology - General 05/22/23 05/22/23 Guerita Elliott PA-C [address] [address] [facility] Specialist Cardiothoracic Surgery 05/22/23 3 Matthew Rushing MD [address] [place] [address] 25413 [facility] Specialist Cardiology - General 05/29/23 05/29/23 Guerita Elliott PA-C [address] [address] [facility] Specialist Cardiothoracic Surgery 05/29/23 Guerita Elliott PA-C [address] [address] [facility] Specialist Cardiothoracic Surgery 06/05/23 Matthew Rushing MD [address] [place] [address] 29304 [facility] Specialist Cardiology - General 06/05/23 06/05/23 Guerita Elliott PA-C [address] [address] [facility] Specialist Cardiothoracic Surgery 06/12/23 Matthew Rushing MD [address] [place] [address] 08676 [facility] Specialist Cardiology - General 06/12/23 06/12/23 Guerita Elliott PA-C [address] [address] [facility] Specialist Cardiothoracic Surgery 06/19/23 Matthew Rushing MD [address] [place] [address]77 [facility] Specialist Cardiology - General 06/19/23 06/19/23 Guerita Elliott PA-C [address] [address] [facility] Specialist Cardiothoracic Surgery 06/26/23 06/26/23 Matthew Rushing MD [address] [place] [address]26 [facility] Specialist Cardiology - General 06/26/23 06/26/23 Guerita Elliott PA-C [address] [address] [facility] Specialist Cardiothoracic Surgery 07/03/23 4 Matthew Rushing MD [address] [place] [address] 08102 [facility] Specialist Cardiology - General 07/03/23 07/03/23 Guerita Elliott PA-C [address] [address] [facility] Specialist Cardiothoracic Surgery 07/10/23 4 Matthew Rushing MD [address] [place] [address]78 [facility] Specialist Cardiology - General 07/10/23 07/10/23 Matthew Rushing MD [address] [place] [address] 14841 [facility] Specialist Cardiology - General 07/17/23 07/17/23 Guerita Elliott PA-C [address] [address] [facility] Specialist Cardiothoracic Surgery 07/17/23 4 Matthew Rushing MD [address] [place] [address] 51065 [facility] Specialist Cardiology - General 07/24/23 07/24/23 Guerita Elliott PA-C [address] [address] [facility] Specialist Cardiothoracic Surgery 07/24/23 07/24/23 Matthew Rushing MD [address] [place] [address]16 [facility] Specialist Cardiology - General 07/31/23 07/31/23 Guerita Elliott PA-C [address] [address] [facility] Specialist Cardiothoracic Surgery 07/31/23 4 Guerita Elliott PA-C [address] [address] [facility] Specialist Cardiothoracic Surgery 08/07/23 4 Matthew Rushing MD [address] [place] [address]24 [facility] Specialist Cardiology - General 08/07/23 08/07/23 Guerita Elliott PA-C [address] [address] [facility] Specialist Cardiothoracic Surgery 08/14/23 4 Matthew Rushing MD [address] [place] [address] 27827 [facility] Specialist Cardiology - General 08/14/23 08/14/23 Matthew Rushing MD [address] [place] [address]63 [facility] Specialist Cardiology - General 08/21/23 08/21/23 Guerita Elliott PA-C [address] [address] [facility] Specialist Cardiothoracic Surgery 08/21/23 08/21/23 Matthew Rushing MD [address] [place] [address] 7[address]43 [facility] Specialist Cardiology - General 08/28/23 08/28/23 Guerita Elliott PA-C [address] [address] [facility] Specialist Cardiothoracic Surgery 08/28/23 4 Guerita Elliott PA-C [address] [address] [facility] Specialist Cardiothoracic Surgery 09/04/23 4 Matthew Rushing MD [address] [place] [address] 59000 [facility] Specialist Cardiology - General 09/04/23 09/04/23 Matthew Rushing MD [address] [place] [address]15 [facility] Specialist Cardiology - General 09/11/23 09/11/23 Gureita Elliott PA-C [address] [address] [facility] Specialist Cardiothoracic Surgery 09/11/23 4 Matthew Rushing MD [address] [place] [address] 54489 [facility] Specialist Cardiology - General 09/18/23 09/18/23 Guerita lEliott PA-C [address] [place] [address] [facility] Specialist Cardiothoracic Surgery 09/18/23 4 Matthew Rushing MD [address] [place] [address] 17468 [facility] Specialist Cardiology - General 09/25/23 09/25/23 Guerita Elliott PA-C [address] [place] [address] 42042 [facility] Specialist Cardiothoracic Surgery 09/25/23 09/25/23 Matthew Rushing MD [address] [place] [address] 29256 [facility] Specialist Cardiology - General 10/02/23 10/02/23 Guerita Elliott PA-C [address] [place] [address] 92476 [facility] Specialist Cardiothoracic Surgery 10/02/23 4 Guerita Elliott PA-C [address] [place] [address] 14537 [facility] Specialist Cardiothoracic Surgery 10/09/23 4 Matthew Rushing MD [address] [place] [address] 46695 [facility] Specialist Cardiology - General 10/09/23 10/09/23 Matthew Rushing MD [address] [place] [address] 36659 [facility] Specialist Cardiology - General 10/16/23 10/16/23 Guerita Elliott PA-C [address] [address] [facility] Specialist Cardiothoracic Surgery 10/16/23 4 Matthew Rushing MD [address] [place] [address] 26468 [facility] Specialist Cardiology - General 10/23/23 10/23/23 Guerita Elliott PA-C [address] [address] [facility] Specialist Cardiothoracic Surgery 10/23/23 10/23/23 Matthew Rushing MD [address] [place] [address] 32870 [facility] Specialist Cardiology - General 10/30/23 10/30/23 Guerita Elliott PA-C [address] [address] [facility] Specialist Cardiothoracic Surgery 10/30/23 4 Guerita Elliott PA-C [address] [address] [facility] Specialist Cardiothoracic Surgery 11/06/23 4 Matthew Rushing MD [address] [place] [address] 34755 [facility] Specialist Cardiology - General 11/06/23 11/06/23 Matthew Rushing MD [address] [place] [address] 06273 [facility] Specialist Cardiology - General 11/13/23 11/13/23 Guerita Elliott PA-C [address] [address] [facility] Specialist Cardiothoracic Surgery 11/13/23 4 Guerita Elliott PA-C [address] [place] [address] 89976 [facility] Specialist Cardiothoracic Surgery 11/20/23 11/20/23 Matthew Rushing MD [address] [place] [address] 62395 [facility] Specialist Cardiology - General 11/20/23 11/20/23 Guerita Elliott PA-C [address] [address] [facility] Specialist Cardiothoracic Surgery 11/27/23 11/27/23 Matthew Rushing MD [address] [place] [address] 91308 [facility] Specialist Cardiology - General 11/27/23 11/27/23 Guerita Elliott PA-C [address] [address] [facility] Specialist Cardiothoracic Surgery 12/04/23 4 Matthew Rushing MD [address] [place] [address] 51934 [facility] Specialist Cardiology - General 12/04/23 12/04/23 Matthew Rushing MD [address] [place] [address] 66131 [facility] Specialist Cardiology - General 12/11/23 12/11/23 Guerita Elliott PA-C [address] [address] [facility] Specialist Cardiothoracic Surgery 12/11/23 4 Guerita Elliott PA-C [address] [address]150 [facility] Specialist Cardiothoracic Surgery 12/18/23 4 Matthew Rushing MD [address] [place] [address] 53685 [facility] Specialist Cardiology - General 12/18/23 12/18/23 Guerita Elliott PA-C [address] [address] [facility] Specialist Cardiothoracic Surgery 12/25/23 12/25/23 Matthew Rushing MD [address] [place] [address] 24085 [facility] Specialist Cardiology - General 12/25/23 12/25/23 Guerita Elliott PA-C [address] [address] [facility] Specialist Cardiothoracic Surgery 01/01/24 4 Matthew Rushing MD [address] [place] [address] 05616 [facility] Specialist Cardiology - General 01/01/24 01/01/24 Guerita Elliott PA-C [address] [place] [address] 34762 [facility] Specialist Cardiothoracic Surgery 01/08/24 4 Matthew Rushing MD [address] [place] [address] 27591 [facility] Specialist Cardiology - General 01/08/24 01/08/24 Guerita Elliott PA-C [address] [place] [address] 34319 [facility] Specialist Cardiothoracic Surgery 01/15/24 4 Matthew Rushing MD [address] [place] [address] 17636 [facility] Specialist Cardiology - General 01/15/24 01/15/24 Matthew Rushing MD [address] [place] [address] 06585 [facility] Specialist Cardiology - General 01/22/24 01/22/24 Guerita Elliott PA-C [address] [place] [address] [facility] Specialist Cardiothoracic Surgery 01/22/24 01/22/24 Guerita Elliott PA-C [address] [place] [address] [facility] Specialist Cardiothoracic Surgery 01/29/24 4 Matthew Rushing MD [address] [place] [address] 11981 [facility] Specialist Cardiology - General 01/29/24 01/29/24 Matthew Rushing MD [address] [place] [address] 66768 [facility] Specialist Cardiology - General 02/05/24 02/05/24 Guerita Elliott PA-C [address] [place] [address] [facility] Specialist Cardiothoracic Surgery 02/05/24 4 Matthew Rushing MD [address] [place] [address] 44280 [facility] Specialist Cardiology - General 02/12/24 02/12/24 Guerita Elliott PA-C [address] [place] [address] [facility] Specialist Cardiothoracic Surgery 02/12/24 4 Guerita Elliott PA-C [address] [place] [address] [facility] Specialist Cardiothoracic Surgery 02/19/24 02/19/24 aMtthew Rushing MD [address] [place] [address] 31556 [facility] Specialist Cardiology - General 02/19/24 02/19/24 Matthew Rushing MD [address] [place] [address] 34297 [facility] Specialist Cardiology - General 02/26/24 02/26/24 Guerita Elliott PA-C [address] [address] [facility] Specialist Cardiothoracic Surgery 02/26/24 02/26/24 Guerita Elliott PA-C [address] [place] [address] 9[address]87 [facility] Specialist Cardiothoracic Surgery 03/04/24 4 Matthew Rushing MD [address] [place] [address] 31124 [facility] Specialist Cardiology - General 03/04/24 03/04/24 Guerita Elliott PA-C [address] [place] [address] 29394 [facility] Specialist Cardiothoracic Surgery 03/11/24 4 Matthew Rushing MD [address] [place] [address] 11919 [facility] Specialist Cardiology - General 03/11/24 03/11/24 Matthew Rushing MD [address] [place] [address] 45656 [facility] Specialist Cardiology - General 03/18/24 03/18/24 Guerita Elliott PA-C [address] [address] [facility] Specialist Cardiothoracic Surgery 03/18/24 4 Matthew Rushing MD [address] [place] [address] 26564 [facility] Specialist Cardiology - General 03/25/24 03/25/24 Guerita Elliott PA-C [address] [address] [facility] Specialist Cardiothoracic Surgery 03/25/24 4 Matthew Rushing MD [address] [place] [address] 83644 [facility] Specialist Cardiology - General 04/01/24 04/01/24 Guerita Elliott PA-C [address] [address]68 [facility] Specialist Cardiothoracic Surgery 04/01/24 Guerita Elliott PA-C [address] [address] [facility] Specialist Cardiothoracic Surgery 04/08/24 Matthew Rushing MD [address] [place] [address] 74708 [facility] Specialist Cardiology - General 04/08/24 04/08/24 Guerita Elliott PA-C [address] [address]72 [facility] Specialist Cardiothoracic Surgery 04/15/24 Matthew Rushing MD [address] [place] [address] 59693 [facility] Specialist Cardiology - General 04/15/24 04/15/24 Guerita Elliott PA-C [address] 08196 [facility] Specialist Cardiothoracic Surgery 04/22/24 4 Matthew Rushing MD [address] [place] [address] 70299 [facility] Specialist Cardiology - General 04/22/24 04/22/24 Matthew Rushing MD [address] [place] [address] 88493 [facility] Specialist Cardiology - General 04/29/24 04/29/24 Guerita Elliott PA-C [address] [address] [facility] Specialist Cardiothoracic Surgery 04/29/24 Matthew Rushing MD [address] [place] [address] 81658 [facility] Specialist Cardiology - General 05/06/24 05/06/24 Guerita Elliott PA-C [address] [address]90 [facility] Specialist Cardiothoracic Surgery 05/06/24 Matthew Rushing MD [address] [place] [address] 01707 [facility] Specialist Cardiology - General 05/13/24 05/13/24 Guerita Elliott PA-C [address] [address]39 [facility] Specialist Cardiothoracic Surgery 05/13/24 Guerita Elliott PA-C [address] 04649 [facility] Specialist Cardiothoracic Surgery 05/20/24 4 Matthew Rushing MD [address] [place] [address] 10005 [facility] Specialist Cardiology - General 05/20/24 05/20/24 Guerita Elliott PA-C [address] 19572 [facility] Specialist Cardiothoracic Surgery 05/27/24 4 Matthew Rushing MD [address] [place] [address] 03602 [facility] Specialist Cardiology - General 05/27/24 05/27/24 Guerita Elliott PA-C [address] [address]99 [facility] Specialist Cardiothoracic Surgery 06/03/24 Matthew Rushing MD [address] [place] [address] 13370 [facility] Specialist Cardiology - General 06/03/24 06/03/24 Guerita Elliott PA-C [address] [place] [address] 41536 [facility] Specialist Cardiothoracic Surgery 06/10/24 Matthew Rushing MD [address] [place] [address] 88407 [facility] Specialist Cardiology - General 06/10/24 06/10/24 Guerita Elliott PA-C [address] [place] [address] 50113 [facility] Specialist Cardiothoracic Surgery 06/17/24 Matthew Rushing MD [address] [place] [address] 87281 [facility] Specialist Cardiology - General 06/17/24 06/17/24 documented as of this encounter
--- OUTSIDE RECORDS SUMMARY | 2024-06-24 04:38 | XMS_ITS | Encounter Summary ---
Author Organization [facility] alth Address [address] [facility] [place] [address] Care Team Providers Care Weigher Alloy Name Role Phone Kilo Wang MD Unavailable [phone] Juan Haddad MD Unavailable Dasha Sheppard PA-C Primary Care Provider Reason for Visit * Reason Onset Date Comments Shortness Of Breath 01/31/2019 fyi Encounter Details Date Type Department Care Team (Late st Contact Info) Description 01/31/2019 Nurse Triage [facility] Line [address] [facility], [address] [place] [id number] Dasha Sheppard PA-C [address] [facility] [place] [address] Shortness Of Breath (fyi) Social History Tobacco Use Types Packs/Day [...] Telephone Encounter - Dasha Sheppard PA-C - 01/31/2019 7:37 PM EDT Note reviewed * Telephone Encounter - Criss Alex LPN - 01/31/2019 7:12 PM EDT Short of breath for couple of days, bp up and down, 140, 130, headache throbbing for months which he sees neuro for. I suggested er or urgent care tonight but since this has been ongoing only wants to see her when she is available. Gave him ov for 02/02. documented in this encounter Plan of Treatment Not on file documented as of this encounter Goals Goal Patient Goal Type Associated Problems Recent Progress Patient-Stated? Author Blood Pressure < 140/90 Blood Pressure 160/96( 024 8:13 AM EDT) No Kilo Wang MD documented as of this encounter Visit Diagnoses Not on filedocumented in this encounter Care Teams Weigher Alloy Relationship Specialty Start Date End Date Dasha Sheppard PA-C [address] [place] [address] PCP - General Family Practice 04/12/18 07/10/23 Kilo Wang MD Consulting Physician Neurology 08/30/16 12/01/21 Juan Haddad MD [address] [place] [address] Otolaryngology 09/23/17 documented as of this encounter
--- OUTSIDE RECORDS SUMMARY | 2024-06-24 04:38 | XMS_ITS | Encounter Summary ---
Author Organization [facility] alth Address [address] [place] [address] Care Team Providers Care Tobacco Dipper Name Role Phone Kilo Wang MD Unavailable [phone] Juan Haddad MD Unavailable [phone] Dasha Sheppard PA-C Primary Care Provider Reason for Referral * Test/Procedure/Other (Routine) - Closed Specialty Diagnoses / Procedures Referred By Contac t Referred To Contact Diagnoses SOB (shortness of breath) Procedures STRESS ECHOCARDIOGRAM Avery Mcmillan MD [address] [place] [address] Phone: tel: fax: Referral ID Status Reason Start Date Expiration Date Visits Re quested Visits Authorized [id number] Closed 08/01/2018 08/01/2019 1 1 Reason for Visit * Test/Procedure/Other (Routine) - Closed Specialty Diagnoses / Procedures Referred By Contac t Referred To Contact Diagnoses SOB (shortness of breath) Procedures STRESS ECHOCARDIOGRAM Avery Mcmillan MD [address] [place] [address] Phone: tel: fax: Referral ID Status Reason Start Date Expiration Date Visits Re quested Visits Authorized [id number] Closed 08/01/2018 08/01/2019 1 1 Encounter Details Date Type Department Care Team ([facility] st Contact Info) Description 08/02/2018 1:59 PM EST - 08/02/2018 11:59 PM EST Hospital Encounter [address] [address] Avery Mcmillan MD [address] [place] [address] [place] [address] Shortness of breath Discharge Disposition: Home/Self Care [...] Medications at Time of Discharge amLODIPine (NORVASC) 2.5 MG tablet Take 1 tablet by mouth daily. 30 tablet 11 07/31/2018 08/16/2018 gabapentin (NEURONTIN) 300 MG capsuleIndication s:Occipital neuralgia of right side,Atypical migraine Take 1 capsule by mouth at bedtime. 30 capsule 1 07/26/2018 12/07/2018 [place] Du[place] Extract 500 MG CAPS Take 1 capsule by mouth 2 times daily . 12/07/2018 documented as of this encounter Plan of Treatment Not on file documented as of this encounter Procedures Procedure Name Priority Date/Time Associated Diagnosis Comments STRESS ECHOCARDIOGRAM Routine 08/02/2018 3:42 PM EST SOB (shortness of breath) documented in this encounter Results * STRESS ECHOCARDIOGRAM (08/02/2018 3:42 PM EST) Anatomical Region Laterality Modality Chest ECHO 08/02/2018 2:46 PM EST 08/02/2018 2:46 PM EST Narrative 08/02/2018 4:35 PM EST ?Non-invasive Cardiology [address] [place] [address] [place] [address] ?Echocardiography Services ?Exercise Stress Echo Report Name: MIREYA CARTER Taveras, JR. ?Study Date: 08/02/2018 02:48 PM ? BP: 130/79 mmHg ?Patient Location: [facility] ?HR: 92 : 1965 ? Gender: Male ?Height: 72 in Age: 53 yrs ? Weight: 245 lb ?Ordering Physician: AVERY MCMILLAN ?Polisher Apprentice: Debbie Knox RDCS Reason For Study: chest pain ?BSA: 2.3 m2 History: HTN, ASTHMA, OBESITY INTERPRETATION SUMMARY Pretest Probability Score = 9 pts. (Intermediate [...] low probability for stress induced myocardial ischemia. STUDY DETAILS: ?? Supervising physican: Rafael Rojo DO. Stress Echocardiogram w/contrast ([id number]). Definity Contrast ([id number]). Echo contrast was used to provide better visualization of ventricular endocardial wall definition. A complete echocardiogram was performed 07/18/2018. FINDINGS: STUDY OVERVIEW: ?? Pretest Probability Score = 9 pts. (Intermediate Risk). No baseline symptoms were noted. Exercise Duration (Gio Protocol) = 8:34 (m:s) . Workload achieved = 10.10 METS. Resting heart rate = 92 bpm. Peak heart rate achieved = 160 bpm. Predicted maximal HR achieved = 94%. Target heart rate was achieved. Resting blood pressure = 130/79 mmHg. Peak blood pressure = 183/74 mmHg. No symptoms were noted during stress. No chest pain during stress. Stress was terminated due to fatigue and achieval of THR. BASELINE ECG: ?? The baseline electrocardiogram was normal. STRESS ECG: ?? There was no new ST segment depression with stress. BASELINE ECHO: ?? Echo contrast was used to provide better visualization of ventricular endocardial wall definition. Baseline LV systolic function is within normal limits. Estimated Ejection Fraction = 60-65%. No evidence for regional wall motion abnormality on the baseline echo. IMPOST ECHO: ?? Immediate post exercise LV systolic function increased normally. There were no obvious regional wall motion abnormalities observed immediately post exercise. SUMMARY: ?? Noninvasive Risk Stratification: Low Risk (< 1% annual mortality rate). Findings suggest a low probability for stress induced myocardial ischemia. Procedure Note Cory Bolton MD - 08/02/2018 Non-invasiveCardiology [address] [place] [address] EchocardiographyServices Exercise Stress EchoReport Name: CARTER GOMESJR. Study Date: 08/02/2018 02:48 PMBP: 130/79 mmHg [facility]: : 1965 Gender: MaleHeight: 72 in Age: 53 yrsWeight: 245 lb Ordering Physician: Betsey MCMILLANographer: Debbie Knox RDCS Reason For Study: chest pain BSA: 2.3 m2 History: HTN, ASTHMA, OBESITY INTERPRETATION SUMMARY Pretest Probability Score = 9 pts. (Intermediate Risk) Target heart rate was achieved. There was no new ST segment depression with stress. Baseline LV systolic function is within normal limits. No evidence for regional wall motion abnormality on the baseline echo. Estimated Ejection Fraction = 60-65%. Immediate post exercise LV systolic function increased normally. There were no obvious regional wall motion abnormalities observedimmediately post exercise. Noninvasive Risk Stratification: Low Risk (< 1% annual mortality rate) Findings suggest a low probability for stress induced myocardialischemia. STUDY DETAILS: Supervising physican: Rafael Rojo DO. StressEchocardiogram w/contrast ([id number]). Definity Contrast ([id number]). Echo contrast was used to provide better visualizationof ventricular endocardial wall definition. A complete echocardiogram was performed 07/18/2018. FINDINGS: STUDY OVERVIEW: Pretest Probability Score = 9 pts. (Intermediate Risk).No baseline symptoms were noted. Exercise Duration (Gio Protocol) = 8:34 (m:s) . Workload achieved = 10.10 METS.Resting heart rate = 92 bpm. Peak heart rate achieved = 160 bpm. Predicted maximal HR achieved = 94%. Target heart ratewas achieved. Resting blood pressure = 130/79 mmHg. Peak blood pressure = 183/74 mmHg. No symptoms were notedduring stress. No chest pain during stress. Stress was terminated due to fatigue and achieval of THR. BASELINE ECG: The baseline electrocardiogram was normal. STRESS ECG: There was no new ST segment depression with stress. BASELINE ECHO: Echo contrast was used to provide better visualization ofventricular endocardial wall definition. Baseline LV systolic function is within normal limits. Estimated EjectionFraction = 60-65%. No evidence for regional wall motion abnormality on the baseline echo. IMPOST ECHO: Immediate post exercise LV systolic function increasednormally. There were no obvious regional wall motion abnormalities observed immediately post exercise. SUMMARY: Noninvasive Risk Stratification: Low Risk (< 1% annualmortality rate). Findings suggest a low probability for stress induced myocardial ischemia. Avery Mcmillan MD LG RIS ECHO ORDERABLES Final Re sult documented in this encounter Visit Diagnoses Diagnosis SOB (shortness of breath) Shortness of breath documented in this encounter Administered Medications Inactive Administered Medications - up to 3 most recent administrations Medication Order MAR Action Action Date Dose Rate Site perflutren lipid microsphere (DEFINITY) injection 1 each 1 each, Intravenous, ONCE, On Tue08/02/18 at 1545, For 1 dose, Do not use echo contrast on patients who are receiving ECMO therapy. Given 08/02/2018 3:41 PM EST 1 each left antecubital documented in this encounter Care Teams Tobacco Dipper Relationship Specialty Start Date End Date Dasha Sheppard PA-C [address] [place] [address] PCP - General Family Practice 04/12/18 07/10/23 Kilo Wang MD Consulting Physician Neurology 08/30/16 12/01/21 Juan Haddad MD [address] [place] [address] Otolaryngology 09/23/17 documented as of this encounter
--- OUTSIDE RECORDS SUMMARY | 2024-06-24 04:38 | XMS_ITS | Encounter Summary ---
Author Organization [facility] alth Address [address] [facility] [place] [address] Care Team Providers Care Pulley Man Name Role Phone Kilo Wang MD Unavailable [phone] Juan Haddad MD Unavailable Dasha Sheppard PA-C Primary Care Provider Reason for Visit * Reason Onset Date Comments Other 06/30/2018 Encounter Details Date Type Department Care Team (Late st Contact Info) Description 06/30/2018 Telephone [facility] Line [address] [facility], [address] [place] [phone] Dasha Sheppard PA-C [address] [facility] [place] [address] Other Social History Tobacco Use Types Packs/Day Years [...] Telephone Encounter - Israel Zuniga LPN - 06/30/2018 5:20 PM EST Pt ntfd. * Telephone Encounter - Dasha Sheppard PA-C - 06/30/2018 5:17 PM EST Please advise Eliseo that I have placed an order for a Western Blot to determine if he is positive forLyme. Will follow-up once blood work results are received * Telephone Encounter - Jlil Mcgraw - 06/30/2018 9:17 AM EST Spoke with patient states he wants to know if he can have a lyme test. States symptoms he is havingare the same he had previously. States he has rash, legs are burning and his knees are achey. States SOB but he thinks that is something else. Is having his CT Chest on 07/03/2018 documented in this encounter Plan of Treatment Not on file documented as of this encounter Results * LYME WESTERN BLOT IGG IGM (07/01/2018 8:10 AM EST) Lyme Antibodies IgM WB NEG Negative 07/03/2018 11:19 AM [facility] Comment: Lyme Disease Ab (IgM), Western blot Bands Reported: (Bands reference range: Nonreactive) 23 kD (IgM): Nonreactive 39 kD (IgM): Nonreactive 41 kD (IgM): Nonreactive A Lyme disease IgM Western blot requires reactivity to 2 of 3 specific B. burgdorferi proteins to be considered positive. Lyme Antibodies IgG WB NEG Negative 07/03/2018 11:19 AM [facility] Comment: Lyme Disease Ab (IgG), Western blot Bands Reported: (Bands reference range: Nonreactive) 18 kD (IgG): Nonreactive 23 kD (IgG): Nonreactive 28 kD (IgG): Nonreactive 30 kD (IgG): Nonreactive 39 kD (IgG): Nonreactive 41 kD (IgG): Reactive 45 kD (IgG): Nonreactive 58 kD (IgG): Nonreactive 66 kD (IgG): Nonreactive 93 kD (IgG): Nonreactive A Lyme disease IgG Western blot must show reactivity to at least 5 of 10 specific B. burgdorferi proteins to be considered positive. * Note: Lyme line blots should only be used in conjunction with positive or equivocal lyme screen results from symptomatic patients, not as a screening method. Band Interpretation (Note: Band development depends upon the stage of disease): *Positive IgG test result indicates presumptive evidence of probable past exposure and does not necessarily indicate a current infection with B. burgdorferi. * Negative IgG test result does not exclude the possibility of lyme disease. ??Additional specimens should be submitted in 2 to 3 weeks if B. burgdorferi exposure has not been ruled out. The sample may have been taken before the appearance of IgG antibodies or the antibody titer exists below the detection limit of the test. *Positive IgM test result indicates supplementary evidence of a recent or past exposure and does not necessarily indicate a current infection with B. burgdorferi. * Negative IgM test result does not exclude the possibility of lyme disease. ??Additional specimens should be submitted in 2 to 3 weeks if B. burgdorferi exposure has not been ruled out. The sample may have been taken before the appearance of IgM antibodies or the antibody titer exists below the detection limit of the test. *Although considered negative, if there is IgG reactivity to fewer specific B. burgdorferi proteins or IgM reactivity to only 1 protein and the lyme antibody screen is positive or equivocal, this may indicate recent B. burgdorferi infection and warrant testing of a later sample. According to the Centers for Disease Control, ? the diagnosis of Lyme disease is based primarily on clinical findings, and it is often appropriate to treat patients with early disease solely on the basis of objective signs and known exposure.? The diagnosis of Lyme Disease must include careful clinical evaluation and should not be based solely on detection of antibodies to B. burgdorferi. The CDC recommends testing for Lyme antibodies to consist of an FDA cleared enzyme immunoassay screen that, if positive or equivocal, is followed by an FDA cleared immunoblot test. ??The Lyme blot must be interpreted in light of ??a positive or equivocal screen result. Antibodies against Lyme disease bacteria may take about 4 to 6 weeks to develop. ??The development and detection of antibodies may be affected by early antibiotic therapy. In the patient with numerous nonspecific symptoms that may or may not be compatible with Lyme disease, if the pretest probability of Lyme disease is low, a positive serologic test result is more likely to be a false positive than it is to be true positive. Such conditions include Ehrlichiosis, Tick borne Relapsing Fever, Rickettsial Diseases and Babesiosis. CDC Notice to readers: Caution Regarding Testing for Lyme disease. MMWR 2005;54:125. CDC Concerns Regarding a New Culture Method for Borrelia burgdorferi Not Approved for the Diagnosis of Lyme Disease. MMWR 2014:63(15);333-333 07/01/2018 8:10 AM EST 07/01/2018 11:33 AM EST us Dasha Sheppard PA-C IMMUNOLOGY ORDERABLES F inal Result [facility] [address] [facility] [address] [place] [address] documented in this encounter Visit Diagnoses Diagnosis Arthralgia of both knees- Primary documented in this encounter Care Teams Pulley Man Relationship Specialty Start Date End Date Dasha Sheppard PA-C [address] [place] [address] PCP - General Family Practice 04/12/18 07/10/23 Kilo Wang MD Consulting Physician Neurology 08/30/16 12/01/21 Juan Haddad MD [address] [place] [address] Otolaryngology 09/23/17 documented as of this encounter
--- OUTSIDE RECORDS SUMMARY | 2024-06-24 04:38 | XMS_ITS | Encounter Summary ---
Author Organization [facility] alth Address [address] [facility] [place] [address] Care Team Providers Care Varnish Mixer Name Role Phone Kilo Wang MD Unavailable [phone] Juan Haddad MD Unavailable Mary Sheppard PA-C Primary Care Provider Reason for Visit * Reason Comments Rib Pain area on left side of chest, took one neurontin. worse this week Encounter Details Date Type Department Care Team (Late st Contact Info) Description 12/13/2018 5:00 PM EDT Office Visit [facility] Line [address] [facility], [address] [place] [phone] Mary Sheppard PA-C [address] [facility] [place] [address] Occipital neuralgia of right side (Primary Dx) Discharge Disposition: Home/Self Care Social [...] Sign Reading Time Taken Comments Blood Pressure 120/80 12/13/2018 4:48 PM EDT Pulse 88 12/13/2018 4:48 PM EDT Temperature - - Respiratory Rate - - Oxygen Saturation - - Inhaled Oxygen Concentration - - Weight 107 kg (235 lb) 12/13/2018 4:48 PM EDT Height - - Body Mass Index 33.01 12/07/2018 3:25 PM EDT documented in this encounter Progress Notes * Mary Sheppard PA-C - 12/13/2018 4:47 PM EDT Subjective Patient roomed and information gathered by Criss Alex LPN. Chart Review: Medication List reviewed / reconciled 12/15/2018 5:08 PM by MARY SHEPPARD. Allergy List reviewed 12/15/2018 by MARY SHEPPARD. Problem List reviewed 12/15/2018 by MARY SHEPPARD. Immunization List reviewed 03/23/2018 6:18 AM by SARAHY HARVEY Chart Sections reviewed by provider: Tobacco Allergies Meds Problems Med Hx Surg Hx Fam Hx Health Maintenance reviewed 12/13/2018 4:51 PM by Criss Alex LPN. Yes Since the last visit here, was the patient seen by a specialist? Yes Barriers to care: Patient does not have a Living Will or Advance Directives Progress Note He is accompanied today by no one Medication compliance: Yes Robert Alexis Jr. is a 53 y.o. male who presents with chief complaint of Rib Pain (area on left side of chest, took one neurontin. worse this week) who is here today for an office visit. Symptoms as above that have been ongoing. Saw Endocrine last week regarding adrenal adenoma - bloodwork was ordered to rule out aldosteronism. Endocrine reassured Eliseo that the adrenal adenoma was not causing his LEFT chest discomfort/sensation Continues to complain about pain in LEFT chest/abdomen - states that he can feel a mass and that the area protrudes more. Continues to have thumping in RIGHT posterior head and ringing in ears, blurry vision, posterior head pain. States that the muscles in his neck are tight Denies fever/chills, N/V/D, neck pain, abdominal pain, chest pain, shortness of breath. States that his symptoms were so bad Tuesday evening he almost went to the ED. States that he was up pacing all night due to the throbbing. States that his symptoms are worse at night, does not notice them during the day I prescribed gabapentin in the past and he did not take the medication - states that Tuesday eveninghe started the medication and plans to try x 1 month to see if his symptoms change Neurology - order was placed for referral ROS As above Future appointments already scheduled: No future appointments. Objective Vitals: 12/13/18 1648 BP: 120/80 BP Source: Right Arm Position: Sitting Cuff Size: Regular Pulse: 88 Weight: 107 kg (235 lb) Body mass index is 33.01 kg/m??. Physical Exam Nursing note and vitals reviewed. HENT: Mouth/Throat: Oropharynx is clear and moist. Eyes: Pupils are equal, round, and reactive to light. Conjunctivae are normal. Neck: Neck supple. +tightness of B/L trapezius muscles, no active spasm Cardiovascular: Normal rate, regular rhythm and normal heart sounds. Pulmonary/Chest: Effort normal and breath sounds normal. No respiratory distress. He exhibits tenderness (left sided at 9th rib, mild ecchymosis). Skin: Skin is warm and dry. Psychiatric: He has a normal mood and affect. His behavior is normal. Judgment and thought content normal. Constitutional: He appears well-developed and well-nourished. Assessment and Plan 1. Occipital neuralgia of right side - gabapentin (NEURONTIN) 300 MG capsule; Take 1 capsule by mouth at bedtime. Dispense: 30 capsule; Refill: 0 Continue with referral to Neurology Offered repeat US of LEFT rib/chest - declined Recommend continuing with Gabapentin at bedtime and monitor symptoms Discussed signs and symptoms that warrant further evaluation Return to office with any new or worsening symptoms. Robert verbalized understanding of above. documented in this encounter Plan of Treatment Not on file documented as of this encounter Visit Diagnoses Diagnosis Occipital neuralgia of right side- Primary documented in this encounter Care Teams Varnish Mixer Relationship Specialty Start Date End Date Mary Sheppard PA-C [address] [place] [address] [place] [address] PCP - General Family Practice 04/12/18 07/10/23 Kilo Wang MD Consulting Physician Neurology 08/30/16 12/01/21 Juan Haddad MD [address] [place] [address] Otolaryngology 09/23/17 documented as of this encounter
--- OUTSIDE RECORDS SUMMARY | 2024-06-24 04:38 | XMS_ITS | Encounter Summary ---
Author Organization [facility] alth Address [address] [place] [address] Care Team Providers Care Piper Helper Name Role Phone Kilo Wang MD Unavailable [phone] Juan Haddad MD Unavailable Dasha Sheppard PA-C Primary Care Provider Reason for Visit * Reason Onset Date Comments Refill Request 10/10/2018 Amlodipine Encounter Details Date Type Department Care Team (Late st Contact Info) Description 10/10/2018 Refill [facility] [address] [phone] Matthew Rushing MD [address] [place] [address] Refill Request (Amlodipine) Social History Tobacco Use [...] encounter Miscellaneous Notes * Telephone Encounter - DexterGaurangDaphney A - 10/10/2018 10:15 AM EDT [facility] Refill Request Request for refill received via fax from [facility]/Pharmacy #[id number] for patient's prescription for Amlodipine 5 mg tablet. Last G provider office visit: 07/31/2018 Сергей Last BMP: Lab Results Component Value Date/Time GLUCOSE 91 02/17/2018 06:46 AM SODIUM 139 04/20/2018 06:49 AM POTASSIUM 4.0 04/20/2018 06:49 AM CHLORIDE 102 04/20/2018 06:49 AM BUN 20 04/20/2018 06:49 AM CREATININE 1.1 04/20/2018 06:49 AM CALCIUM 9.4 04/20/2018 06:49 AM GFR >60 04/20/2018 06:49 AM documented in this encounter Plan of Treatment Not on file documented as of this encounter Visit Diagnoses Not on filedocumented in this encounter Care Teams Piper Helper Relationship Specialty Start Date End Date Dasha Sheppard PA-C [address] [address] PCP - General Family Practice 04/12/18 07/10/23 Kilo Wang MD Consulting Physician Neurology 08/30/16 12/01/21 Juan Haddad MD [address] [address] Otolaryngology 09/23/17 documented as of this encounter
--- OUTSIDE RECORDS SUMMARY | 2024-06-24 04:38 | XMS_ITS | Encounter Summary ---
Author Organization [facility] [address] alth Address [address] [place] [facility] [place] [address] Care Team Providers Care Assistant Hvac Mechanic Name Role Phone Kilo Wang MD Unavailable [phone] Juan Haddad MD Unavailable [phone] Dasha Sheppard PASeverino Primary Care Provider Reason for Visit * Reason Comments Recheck Bilateral hands Encounter Details Date Type Department Care Team (Late st Contact Info) Description 05/02/2018 10:30 AM EST Office Visit [facility] [address] [place] [address] Kiarra Johnson PA-C [address] [facility] [place] [address] Encounter for other orthopedic aftercare (Primary Dx) Discharge Disposition: Home/Self Care Social [...] Sign Reading Time Taken Comments Blood Pressure 143/102 05/02/2018 10:42 AM EST Pulse 82 05/02/2018 10:42 AM EST Temperature - - Respiratory Rate - - Oxygen Saturation - - Inhaled Oxygen Concentration - - Weight 107 kg (235 lb) 05/02/2018 10:42 AM EST Height 182.9 cm (6') 05/02/2018 10:42 AM EST Body Mass Index 31.87 05/02/2018 10:42 AM EST documented in this encounter Progress Notes * Elizabeth HernandezKiarra - 05/02/2018 10:44 AM EST Assessment & Plan: Status post right carpal tunnel release, left carpal tunnel release and cubital tunnel decompression He can gradually resume regular activities and follow-up as needed. Current visit Dx include: 1. S/P carpal tunnel release 2. S/P decompression of ulnar nerve at elbow Imaging Results: No results found. Subjective: HPI Robert Alexis Jr. is a 53 y.o. male who presents for recheck of bilateral hands after right carpaltunnel release, left carpal tunnel release and left cubital tunnel decompression. He indicates thathe's been very active with his hands. He has no residual numbness or tingling. He has some minor sensitivity at the incision sites on the palms, otherwise has absolutely no complaints. Objective: Vitals: Visit Vitals BP (!) 143/102 Pulse 82 Ht 1.829 m (6') Wt 107 kg (235 lb) BMI 31.87 kg/m?? Review of Systems Constitutional: Negative for chills, fever and malaise/fatigue. HENT: Positive for hearing loss. Negative for nosebleeds. Eyes: Negative for blurred vision and double vision. Respiratory: Negative for shortness of breath. Cardiovascular: Negative for chest pain. Gastrointestinal: Negative for heartburn, nausea and vomiting. Genitourinary: Negative for frequency and urgency. Musculoskeletal: Positive for joint pain (Bilateral hands). Negative for back pain, falls, myalgiasand neck pain. Skin: Negative for itching and rash. Neurological: Positive for headaches. Negative for dizziness and tremors. Endo/Heme/Allergies: Does not bruise/bleed easily. Physical Exam Ortho Exam His incisions are well-healed. He demonstrates excellent range of motion of bilateral upper extremities and has good strength with thumb opposition and finger abduction. Allergies: He has No Known Allergies. Past Medical History: He has a past medical history of Asthma and Lyme disease. Past Surgical History: He has a past surgical history that includes ENDOSCOPY, ESOPHAGUS (04/22/2016); HX Colonoscopy (04/22/2016); hx cyst removal (2015); hx carpal tunnel release (Right, 03/02/2018); hx carpal tunnel release (Left, 03/23/2018); and HX Decompression Nerve Cubital Tunnel Release (Left, 03/23/2018). Social History: He reports that he has never smoked. His smokeless tobacco use includes Chew. He reports that he does not drink alcohol or use drugs. Family History: His family history includes Cancer (age of onset: 67) in his mother. Current Medications: Active Problems: He has Essential hypertension; Asthma; Tubular adenoma of colon. Repeat colonoscopy in APR 2019; Anxiety; Occipital neuralgia of right side; Bilateral carpal tunnel syndrome; Vasovagal syncope; Cubital tunnel syndrome on left; Congenital absence of left kidney; Lyme disease; Right carpal tunnel syndrome; and Left carpal tunnel syndrome on his problem list. documented in this encounter Plan of Treatment Not on file documented as of this encounter Visit Diagnoses Diagnosis Encounter for other orthopedic aftercare- Primary documented in this encounter Care Teams Assistant Hvac Mechanic Relationship Specialty Start Date End Date Dasha Sheppard PA-C [address] [address] PCP - General Family Practice 04/12/18 07/10/23 Kilo Wang MD Consulting Physician Neurology 08/30/16 12/01/21 Juan Haddad MD [address] [address] Otolaryngology 09/23/17 documented as of this encounter
--- OUTSIDE RECORDS SUMMARY | 2024-06-24 04:38 | XMS_ITS | Encounter Summary ---
Author Organization [facility] alth Address [address] [facility] [place] [address] Care Team Providers Care Textile Knitter Name Role Phone Sal Wright DO Primary Care Provider Kilo Wang MD Unavailable [phone] Juan Haddad MD Unavailable [phone] Reason for Visit * Auth/Cert Specialty Diagnoses / Procedures Referred By Donald carvajal Referred To Contact Diagnoses Left carpal tunnel syndrome Cubital tunnel syndrome, left Left carpal tunnel syndrome Cubital tunnel syndrome, left Procedures NC WRIST ARTHROSCOP,RELEASE XVERS LIG NC REVISE ULNAR NERVE AT WRIST DECOMPRESSION NERVE MEDIAN CARPAL TUNNEL RELEASE: Carpal Tunnel Release DECOMPRESSION NERVE CUBITAL TUNNEL RELEASE: Cubital Tunnel Release Referral ID Status Reason Start Date Expiration Date Visits Re quested Visits Authorized [id number] 1 1 Encounter Details Date Type Department Care Team (Late st Contact Info) Description 03/23/2018 7:40 AM EDT - 03/23/2018 8:55 AM EDT Surgery [facility] [address] [facility] [place] [address] Devante Portillo, DO [address] [place] [address] DECOMPRESSION NERVE MEDIAN CARPAL TUNNEL RELEASE: Carpal Tunnel Release Surgery Details Date/Time Status Location OR Service Patient Class Case Class Case Type Trauma Case? 03/23/2018 7:40 AM Posted [facility] ORTHO OR Ortho 07 Orthopedics Day Surgery Scheduled Panel 1 Procedure LRB Anes Op Region Wound Class Comments DECOMPRESSION NERVE MEDIAN C ARPAL TUNNEL RELEASE: Carpal Tunnel Release Left General Hand Cla ss I/Clean DECOMPRESSION NERVE CUBITAL TUNNEL RELEASE: Cubital Tunnel Release Left General Arm Lower Class I/C lean Surgeon Surgeon Role Service Panel Devante Portillo, DO Primary Orthopedics 1 documented in this encounter Social History Tobacco [...] Sign Reading Time Taken Comments Blood Pressure 123/77 03/23/2018 8:55 AM EDT Pulse 79 03/23/2018 8:55 AM EDT Temperature 36.5 ??C (97.7 ??F) 03/23/2018 6:28 AM ED T Respiratory Rate 13 03/23/2018 8:55 AM EDT Oxygen Saturation 99% 03/23/2018 8:55 AM EDT Inhaled Oxygen Concentration - - [...] your surgery please call your surgeon at [phone] If any questions or concerns about your hospital visit and care, please call the [facility] at [phone] M-F 8am until 6:30pm IF TAKING PRESCRIPTION [...] cyst excision, carpal tunnel release), you maytake tcgq-bng-qtvvfiq acetaminophen (Tylenol) on a regular basis: acetaminophen (Tylenol) 1000mg every 8 hours In addition to acetaminophen, if it is safe for you to take antiinflammatories (no history of GI ulcers/bleeding, no use of blood thinners), you may also add an asoi-qyk-esgqvtx anti-inflammatory. Please choose one of the following: [...] call us before your scheduled appointment. [address] * [place] [address] * * fax [phone] * [place] [address] * * fax [phone] [facility] * [address] * [place] [address] * * fax [phone] [facility] * [place] [address] * * fax [phone] Dr. Portillo's Elbow Surgery Post-Op Instructions ?? [...] cyst excision, carpal tunnel release), you maytake bjah-mls-uhxxggk acetaminophen (Tylenol) on a regular basis: acetaminophen (Tylenol) 1000mg every 8 hours In addition to acetaminophen, if it is safe for you to take antiinflammatories (no history of GI ulcers/bleeding, no use of blood thinners), you may also add an uzzn-gqo-jeazvml anti-inflammatory. Please choose one of the following: [...] call us before your scheduled appointment. [address] * [place] [address] * * fax [phone] * [place] [address] * * fax [phone] * [place] [address] * * fax [phone] [facility] * [place] [address] * * fax [phone] Dr. Portillo's Post-Op Medication Instructions ?? After [...] ?? Narcotic pain medications such as oxycodone, [place]/Vicodin (hydrocodone/acetaminophen) and codeine are all narcotics. You [...] the narcotics. ?? Tylenol is the recommended rhim-bxc-gvzekqp medication after orthopedic surgery. However, if this [...] with periodic blood tests (PT/INR). Avoid using wctx-ppy-lzpviow anti-inflammatories while taking blood thinners. ?? If you have any questions about your medications, please contact us. If we cannot answer your questions, we may refer you to your primary care physician or a pharmacist. [address] * [place] [address] * * fax [phone] * [place] [address] * * fax [phone] [facility] * [address] * [place] [address] * * fax [phone] [facility] * [place] [address] * * fax [phone] documented in this encounter Medications at Time [...] total 20 weeks as prescribed by Michelle Multani). 8 oxyCODONE (ROXICODONE) 5 MG immediate releasetab Take 1-2 tablets by mouth every 4 hours as needed for Pain. Max Daily Amount: 60 mg 30 tablet 03/23/2018 8 documented as of this encounter H&P Notes * Devante Portillo DO - 03/23/2018 7:13 AM EDT The H&P was reviewed, the patient was examined, and no changes have occurred since the H&P was completed. Disclaimer: The Prior to Admission Medication (TRIM MOUNTER) list in the attached History and Physical may have been updated since the H&P was done. For the most current data refer to the TRIM MOUNTER medication section in e-Health for this encounter. Source Note - Sal Wright DO - 02/23/2018 10:44 AM EDT documented in [...] at the Elbow Surgeon: Devante Portillo DO Residential Roofer Helper: Kiarra Johnson PA-C Anesthesia: General Blood [...] the level of the epicondyle The physician intellectual property legal assistant provided assistance in patient positioning, draping, retraction, wound closure and application of dressings. * Anesthesia PSH - Margy Juarez MD - 03/17/2018 10:48 [...] syndrome on left Lesion of ulnar nerve Left carpal tunnel syndrome Carpal tunnel syndrome Cubital tunnel syndrome, left documented in this encounter Admitting Diagnoses Diagnosis Left carpal tunnel syndrome Carpal tunnel syndrome documented in this encounter Administered Medications Inactive Administered Medications - up to 3 most recent administrations Medication Order MAR Action Action Date Dose Rate Site acetaminophen (TYLENOL) tablet 975 mg 975 mg, Oral, ONCE, On Lsia 03/23/18 at 0630, For 1 dose, C) Pre-Op/Pre-Procedure Given 03/23/2018 6:46 AM EDT 975 mg Bupivacaine (PF) (MARCAINE) 0.5 % onestep once prn, Starting on Lisa 03/23/18 at 0842, D) Intra-Op/Intra-Procedure Given 03/23/2018 8:43 AM EDT 20 mLs elbow left Given 03/23/2018 8:42 AM EDT 10 mLs le ft wrist fentaNYL injection 25 mcg 25 mcg, Intravenous, [...] 0623, C) Pre-Op/Pre-Procedure NaCl 0.9 % irrigation onestep once prn, Starting on Lisa 03/23/18 at 0820, Until Lisa 03/23/18 at 0851, D) Intra-Op/Intra-Procedure Given 03/23/2018 8:20 AM EDT 500 mLs Left Arm NaCl 0.9% flush bag 20 mL 20 [...] Pre-Op/Pre-Procedure 0656 (New Bag - Prov ider: Mabrella Bush RN)0849 (Stopped - Provider: Rhea High [...] PRN, Severe Pain (8-10), Starting on Lisa 18 at 0847, For 10 doses, OPTION #1 Give first. Hold for respiratory rate less than 12. Maximum dose 250 mcg. Fall Risk Medication, E) PACU HYDROmorphone (DILAUDID) injection 0.25 mg(Linked Group 2) 0.25 mg, Intravenous, Administer over 2 Minutes, EVERY 8 MIN PRN, Moderate Pain (4-7), Starting on Lisa 18 at 0847, For 10 doses, OPTION #2 Give if option #1 ineffective. Hold for respiratory rate less than 12. Maximum dose 1 mg for outpatient, 2 mg for inpatient. Fall Risk Medication, E) PACU HYDROmorphone (DILAUDID) injection 0.5 mg(Linked Group 2) 0.5 mg, Intravenous, Administer over 2 Minutes, EVERY 8 MIN PRN, Severe Pain (8-10), Starting on Lisa 18 at 0847, For 10 doses, OPTION #2 Give if option #1 ineffective. Hold for respiratory rate less than 12. Maximum dose 1 mg for outpatient, 2 mg for inpatient. Fall Risk Medication, E) PACU lactated ringers (LR) infusion 500 mL at 100 mL/hr, Intravenous, ONCE PRN, Other, other, Starting on Lisa 18 at 0847, For 1 dose, Fluid Replacement, E) PACU lidocaine (PF) (XYLOCAINE) 1 % injection 0-1 mL 0-1 mL, Intradermal, PRN, IV insertion, Starting on Lisa 03/23/18 at 0623, For Lidocaine Wheal, C) Pre-Op/Pre-Procedure [...] mL/hr, PRN, Line Care, Starting on Lisa 18 at 0623, Run at rate of intermittent [...] PACU documented in this encounter Care Teams Textile Knitter Relationship Specialty Start Date End Date Sal Wright DO PCP - General 08/28/12 04/11/18 Kilo Wang MD Consulting Physician Neurology 08/30/16 12/01/21 [place] [address] [place] [address] [place] [address] Otolaryngology 09/23/17 documented as of this encounter
--- OUTSIDE RECORDS SUMMARY | 2024-06-24 04:38 | XMS_ITS | Encounter Summary ---
Author Organization [facility] alth Address [address] [facility] [place] [address] Care Team Providers Care Unemployment Specialist Name Role Phone Kilo Wang MD Unavailable [phone] Juan Haddad MD Unavailable Dasha Sheppard PA-C Primary Care Provider Reason for Visit * Test/Procedure/Other (Routine) - Closed Specialty Diagnoses / Procedures Referred By Contac t Referred To Contact Radiology Diagnoses Dyspnea, unspecified type Exposure to silica Procedures CT CHEST W CONTRAST CT CHEST W WO CONTRAST Dasha Sheppard, JIA [address] [facility] [place] [address] Phone: tel: fax: Referral ID Status Reason Start Date Expiration Date Visits Re quested Visits Authorized [id number] Closed 06/28/2018 07/28/2018 1 1 Encounter Details Date Type Department Care Team (Latest Contact Info) Description 07/03/2018 9:00 AM EST Ancillary Procedure [address] [id number] Dyspnea, unspecified type; Exposure to silica Discharge Disposition: Home/Self Care Social History Tobacco [...] Name Priority Date/Time Associated Diagnosis Comments CT CHEST W CONTRAST Routine 07/03/2018 1 1:11 AM EST Dyspnea, unspecified type Exposure to silica ISTAT GFR Routine 07/03/2018 9:22 AM EST ISTAT (POC) CREATININE Routine 07/03/2018 9:22 AM EST documented in this encounter Results * CT CHEST W CONTRAST (07/03/2018 11:11 AM EST) Anatomical Region Laterality Modality Chest Computed Tomogra phy 07/03/2018 9:35 AM EST Impressions 07/03/2018 1:03 PM EST No dense consolidation or pleural effusion. Previous groundglass and interstitial changes have resolved since prior imaging. See discussion. Dictating Narrative 07/03/2018 1:03 PM EST Procedure: CT CHEST W CONTRAST Indication: Dyspnea, exposure to silica. Comparison: CT abdomen and pelvis 10/11/2017, CT bone SPECT cervical spine 06/21/2018. Technique: CT examination of the chest from the thoracic inlet to the mid kidneys. ??Contrast: 80 mL of Omnipaque 350 All exams performed by [facility] utilize one or more of the following dose optimization techniques: automated exposure control, adjustment of the mA and/or kV according to patient size and/or the use of iterative reconstruction techniques. ??Audits are completed at the protocol, device and patient level to ensure compliance. ??All protocols (per device) are periodically reviewed by a team of medical physicists, technologists and radiologists. Comment: Axilla: No enlarged lymph nodes. Heart and mediastinum: ??Heart is not enlarged. No pericardial effusion. The thoracic aorta is normal in caliber. There are coronary artery calcifications present. Tracheobronchial Tree: Unremarkable. Lungs: There is no dense consolidation or pleural effusion. Previously described interstitial changes and groundglass densities no longer identified and were likely related to atelectasis and/or hypoventilatory changes. Lymph nodes in the chest: No enlarged. Libia: Unremarkable. Chest Wall: Unremarkable. Upper abdomen: Solitary RIGHT kidney. 1.3 cm nodule in the LEFT adrenal gland has Hounsfield units consistent with an adenoma based on the prior unenhanced images from CT 04/27/2018 and is stable as far back as 03/14/2016. Bones: No suspicious abnormality. Mild curvature of the thoracic spine convex to the RIGHT. Degenerative changes. Procedure Note Mynor Mejia MD - 07/03/2018 Procedure: CT CHEST W CONTRAST Indication: Dyspnea, exposure to silica. Comparison: CT abdomen and pelvis 10/11/2017, CT bone SPECT cervical spine06/21/2018. Technique: CT examination of the chest from the thoracic inlet to the midkidneys. Contrast: 80 mL of Omnipaque 350 All exams performed by [facility] utilize one or more of the following doseoptimization techniques: automated exposure control, adjustment of the mAand/or kV according to patient size and/or the use of iterativereconstruction techniques. Audits are completed at the protocol, deviceand patient level to ensure compliance. All protocols (per device) areperiodically reviewed by a team of medical physicists, technologists andradiologists. Comment: Axilla: No enlarged lymph nodes. Heart and mediastinum: Heart is not enlarged. No pericardial effusion.The thoracic aorta is normal in caliber. There are coronary arterycalcifications present. Tracheobronchial Tree: Unremarkable. Lungs: There is no dense consolidation or pleural effusion. Previouslydescribed interstitial changes and groundglass densities no longeridentified and were likely related to atelectasis and/or hypoventilatorychanges. Lymph nodes in the chest: No enlarged. Libia: Unremarkable. Chest Wall: Unremarkable. Upper abdomen: Solitary RIGHT kidney. 1.3 cm nodule in the LEFT adrenalgland has Hounsfield units consistent with an adenoma based on the priorunenhanced images from CT 04/27/2018 and is stable as far back as03/14/2016. Bones: No suspicious abnormality. Mild curvature of the thoracic spineconvex to the RIGHT. Degenerative changes. IMPRESSION: No dense consolidation or pleural effusion. Previous groundglass andinterstitial changes have resolved since prior imaging. See discussion. Dictating Dasha Sheppard PA-C LG RIS CT ORDERABLES Fi nal Result * ISTAT GFR (07/03/2018 9:22 AM EST) iStat GFR >60 mL/min/1.7 3 sqm 07/03/2018 9:22 AM EST [facility] Comment: Notes for GFR: 1. ??Multiply result by 1.21 if patient is black/ ?Gabonese. 2. ??Chronic kidney disease: <60 mL/min/1.73 sq.m. ?Renal Failure: <15 mL/min/1.73 sq.m. 07/03/2018 9:22 AM EST 07/03/2018 9:23 AM EST Dasha Sheppard PA-C CHEMISTRY ORDERABLES Fi nal Result Performing Organization Address [facility] Co de Phone Number [facility] [address] [place] [address] * ISTAT (POC) CREATININE (07/03/2018 9:22 AM EST) iStat Creatinine 0.9 0.7 - 1.2 mg/dL 07/03/2018 9:22 AM EST [facility] Comment:PLEASE NOTE: GFR ord er was reflexed and will be resulted separately. 07/03/2018 9:22 AM EST 07/03/2018 9:23 AM EST Dasha Sheppard PA-C CHEMISTRY ORDERABLES Fi nal Result Performing Organization Address [facility] Co de Phone Number [facility] [address] [place] [address] documented in this encounter Visit Diagnoses Diagnosis Dyspnea, unspecified type Exposure to silica documented in this encounter Administered Medications Inactive Administered Medications - up to 3 most recent administrations Medication Order MAR Action Action Date Dose Rate Site iohexol 350 MG/ML injection- VESICANT 80 mL 80 mL, Intravenous, IMG ONCE PRN, Other, Starting on 07/03/18 at 1114, For 1 dose, Monitor site closely as product is a VESICANT. Given 07/03/2018 11:14 AM EST 80 mLs right antecubital documented in this encounter Care Teams Unemployment Specialist Relationship Specialty Start Date End Date Dasha Sheppard PA-C [address] [address] PCP - General Family Practice 04/12/18 07/10/23 Kilo Wang MD Consulting Physician Neurology 08/30/16 12/01/21 Juan Haddad MD [address] [address] Otolaryngology 09/23/17 documented as of this encounter
--- OUTSIDE RECORDS SUMMARY | 2024-06-24 04:38 | XMS_ITS | Encounter Summary ---
Author Organization [facility] alth Address [address] [address] [place] [address] Care Team Providers Care Process Area Supervisor Name Role Phone Kilo Wang MD Unavailable [phone] Juan Haddad MD Unavailable [phone] Mary Shell PA-C Primary Care Provider Reason for Referral * Test/Procedure/Other (Routine) - Closed Specialty Diagnoses / Procedures Referred By Contac t Referred To Contact Diagnoses Pain of upper abdomen Procedures FL BARIUM SWALLOW/ESOPHAGRAM Mary Shell PA-C [address] [facility] [place] [address] Phone: tel: fax: Referral ID Status Reason Start Date Expiration Date Visits Re quested Visits Authorized [id number] Closed 02/02/2019 02/02/2020 1 1 Reason for Visit * Reason Comments Shortness Of Breath Patient is having ch est tightness and air hunger . Patient states that he has throbbing all over his body. Ringing In Ear bilateral Constipation Patient states that he feels like he has to have a bowel movement, has the bowel movement, and feels like he still needs to have a bowel movement. Rib Pain pain over ribs in b ack Blurred Vision bilateral and interm ittent Knee Pain Fatigue at times Foot Problem lost hair on feet . Encounter Details Date Type Department Care Team ([facility] st Contact Info) Description 02/02/2019 9:20 AM EDT Office Visit [facility] [address], [address] [place] [address] Mary Shell PA-C [address] [place] [address] Chest discomfort (Primary Dx); Pain of upper abdomen; SOB (shortness of breath) on exertion; Fatigue, unspecified type; Occipital neuralgia of right side; Essential hypertension Discharge Disposition: Home/Self Care Social History Tobacco Use Types Packs/Day Years Used Date Smoking Tobacco: Never Smokeless Tobacco: Current Chew Tobacco Cessation:Ready to Q uit: Yes; Counseling Given: Yes Comments:chewing tobacco 2 cans/week [...] Sign Reading Time Taken Comments Blood Pressure 124/76 02/02/2019 9:19 AM EDT Pulse 88 02/02/2019 9:19 AM EDT Temperature 36.7 ??C (98.1 ??F) 02/02/2019 9:19 AM ED T Respiratory Rate - - Oxygen Saturation 98% 02/02/2019 9:19 AM EDT Inhaled Oxygen Concentration - - Weight 104 kg (228 lb 9.6 oz) 02/02/2019 9:19 AM EDT Height - - Body Mass Index 32.8 01/23/2019 8:48 AM EDT documented in this encounter Patient Instructions * Patient Instructions* Sabiha Michelle CMA - 02/02/2019 9:24 AM EDT You Can Quit Tobacco! We offer FREE programs to help make a quit plan that works for you! To register or for more information (physician referral not necessary to participate in programs): Call 7-[employer] ([phone]) or visit www.[email or web address]/classes Group Classes FREE [place] from Smoking?? 7-week program where adults are given the tools and support to become tobacco free. FREE Nicotine Replacement Therapy (NRT) as bhupinder funding allows. Meets weekly for 1.5 hours. Locations and times vary. Individual Counseling FREE one-on-one 30 minute weekly meetings with a counselor, by appointment only. Sessions are held at the [facility]. FREE Nicotine Replacement Therapy (NRT) available as bhupinder funding allows. Web-Based Video Chat FREE individual counseling from the comfort of your home through a web-based program. FREE NicotineReplacement Therapy (NRT) as bhupinder funding allows. For more information, call . You CAN do this! People who use medication (NRT, Chantix, Wellbutrin) and have support are more likely to quit. [employer] - [place] toll-free Quit Line - [place] Dept. of Health www.[employer] - www.[email or web address]/Mobiibaccofreelanc - SmokeFreeTXT[place] [address] Ready to make a change but not sure where to start? Try these tips: - Take a deep breath instead of using tobacco - Think about where, when and why you use tobacco - Remove tobacco products from your home and car - Think of what you can buy instead of tobacco - Set a quit date - Talk to your doctor about medication that can help you quit Programs are offered free of charge through [facility] Tobacco Control Project (SEPATCP); a program of the [employer] [place] and funded through a bhupinder from the [facility], [facility] [address] Phone www.[facility].org Stopping Smokeless Tobacco Use: Care Instructions Your Care Instructions Smokeless tobacco comes in many forms, such as snuff and chewing tobacco: ?? Snuff is finely ground tobacco sold in cans or pouches. Most of the time, snuff is used by putting a pinch or dip between the lower lip or cheek and the gum. ?? Chewing tobacco is sold as loose leaves, plugs, or twists. It is chewed or placed between the cheek and the gum or teeth. There are plenty of reasons to stop using smokeless tobacco. These products are harmful. They are not risk-free alternatives to smoking. Smokeless tobacco contains nicotine, which is addicting. Though using smokeless tobacco is less harmful than smoking cigarettes, it can cause serious health problems, such as: ?? White patches or red sores in your mouth that can turn into mouth cancer involving the lip, tongue, or cheek. ?? Tooth loss and other dental problems. ?? Gum disease. Your gums may pull away from your teeth and not grow back. People who use smokeless tobacco crave the nicotine in it. Giving up smokeless tobacco is much harder than simply changing a habit. Your body has to stop craving the nicotine. It is hard to quit, butyou can do it. Many tools are available for people who want to quit using smokeless tobacco. You may find that combining tools works best for you. There are several steps to quitting. First you get ready to quit. Then you get support to help you.After that, you learn new skills and behaviors to quit. For many people, a necessary step is getting and using medicine. Your doctor will help you set up the plan that best meets your needs. You may want to attend a tobacco cessation program. When you choose a program, look for one that has proven success. Ask your doctor for ideas. You will greatly increase your chances of success if you take medicine as well as getcounseling or join a cessation program. Some of the changes you feel when you first quit smokeless tobacco are uncomfortable. Your body will miss the nicotine at first, and you may feel short-tempered and grumpy. You may have trouble sleeping or concentrating. Medicine can help you deal with these symptoms. You may struggle with changing your habits and rituals. The last step is the tricky one: Be prepared for the urge to use smokelesstobacco to continue for a time. This is a lot to deal with, but keep at it. You will feel better. Follow-up care is a zelaya part of your treatment and safety. Be sure to make and go to all appointments, and call your doctor if you are having problems. It's also a good idea to know your test resultsand keep a list of the medicines you take. How can you care for yourself at home? ?? Ask your family, friends, and coworkers for support. You have a better chance of quitting if youhave help and support. ?? Join a support group for people who are trying to quit using smokeless tobacco. ?? Set a quit date. Pick your date carefully so that it is not right in the middle of a big deadline or stressful time. After you quit, do not use smokeless tobacco even once. Get rid of all spit cups, cans, and pouches after your last use. Clean your house and your clothes so that they do not smell of tobacco. ?? Learn how to be a non-user. Think about ways you can avoid those things that make you reach for tobacco. ? Learn some ways to deal with cravings, like calling a friend or going for a walk. Cravings often pass. ? Avoid situations that put you at greatest risk for using smokeless tobacco. For some people, it is hard to spend time with friends without dipping or chewing. For others, they might skip a coffee break with coworkers who smoke or use smokeless tobacco. ? Change your daily routine. Take a different route to work, or eat a meal in a different place. ?? Cut down on stress. Calm yourself or release tension by doing an activity you enjoy, such as reading a book, taking a hot bath, or gardening. ?? Talk to your doctor or pharmacist about nicotine replacement therapy. You still get nicotine, but you do not use tobacco. Nicotine replacement products help you slowly reduce the amount of nicotine you need. Many of these products are available over the counter. They include nicotine patches, gum, lozenges, and inhalers. ?? Ask your doctor about bupropion (Wellbutrin) or varenicline (Chantix), which are prescription medicines. They do not contain nicotine. They help you by reducing withdrawal symptoms, such as stressand anxiety. ?? Get regular exercise. Having healthy habits will help your body move past its craving for nicotine. ?? Be prepared to keep trying. Most people are not successful the first few times they try to quit.Do not get mad at yourself if you use tobacco again. Make a list of things you learned, and think about when you want to try again, such as next week, next month, or next year. Where can you learn more? Go to www.healthwise.net/[facility]. Enter U368 in the search box to learn more about Stopping Smokeless Tobacco Use: Care Instructions. Current as of: March 15, 2018 Content Version: 12.1 ?? 6795-9375 [employer]. Care instructions adapted under license by your healthcare professional. If you have questions about a medical condition or this instruction, always ask your healthcare professional. [employer] disclaims any warranty or liability for your use of this information. documented in this encounter Progress Notes * Mary Shell PA-C - 02/02/2019 9:09 AM EDT Subjective Patient roomed and information gathered by Sabiha Michelle CMA, CMA. Chart Review: Medication List reviewed / reconciled 02/02/2019 9:32 AM by MARY SHELL. Allergy List reviewed 02/02/2019 by MARY SHELL. Problem List reviewed 02/02/2019 by MARY SHELL. Immunization List reviewed 03/23/2018 6:18 AM by SARAHY HARVEY Chart Sections reviewed by provider: Tobacco Allergies Meds Problems Med Hx Surg Hx Fam Hx Vision- OD 20/50, OS 20/50, OU 20/50 uncorrected Health Maintenance reviewed 02/02/2019 9:24 AM by Sabiha Michelle CMA, CMA. Yes Since the last visit here, was the patient seen by a specialist? Yes Barriers to care: Patient does not have a Living Will or Advance Directives Progress Note He is accompanied today by no one Medication compliance: Yes Shortness Of Breath Constipation Robert Alexis Jr. is a 53 y.o. male who presents with chief complaint of Shortness Of Breath (Patient is having chest tightness and air hunger . Patient states that he has throbbing all over his body. ); Ringing In Ear (bilateral); Constipation (Patient states that he feels like he has to have a bowel movement, has the bowel movement, and feels like he still needs to have a bowel movement. );Rib Pain ( pain over ribs in back ); Blurred Vision (bilateral and intermittent); Knee Pain; Fatigue (at times); and Foot Problem ( lost hair on feet .) who is here today for an office visit. Symptoms as above - some new, some ongoing Shortness of breath/ chest tightness: started 4-5 days ago, states that the symptoms are constant. Chest pain is located under LEFT breast. Feels thumping in chest which make him feel lightheaded, dizzy and shortness of breath. Has been checking blood pressure at home and has been getting high readings at home. Denies radiating pain. States that he feels like he can't get air - feels tight. Denies any shortness of breath when exercising - states that he walked over one mile with a weighted backpack last night and Tuesday he walked 3.5 miles with no issues - felt good after exercise. States that last night was the best night of sleep he has had in a long time Throbbing: still has throbbing in RIGHT posterior head but is also feeling the thumping when he is exerting himself and is now feeling it in his chest as well Gastrointestinal Issue: belching, bloated, having normal bowel movements but after he is done he still feels he has to have a Bowel movement. Denies fecal urgency or incontinence. Denies any urinary symptoms. Symptoms are worse after eating. States that he has no appetite but he continues to eat when it is time for meals. Reviewed last three weights Wt Readings from Last 3 Encounters: 02/02/19 104 kg (228 lb 9.6 oz) 01/23/19 107 kg (235 lb) 01/12/19 107 kg (235 lb 6.4 oz) Vision Issues: same on going blurry vision - intermittently. Trying to figure pattern of vision issues but he states that it seems worse when he is having the other symptoms Fatigue: ongoing Has tapered off gabapentin, only taking hypertension medication Has had office visit with neurology - MRA of c-spine has been ordered as well as EMG (reviewed results - normal) Due for colonoscopy April 2019 SaO2: 98-99% Review of Systems Respiratory: Positive for shortness of breath. Gastrointestinal: Positive for constipation. as above Active Problems: He has Essential [...] Future Appointments Date Time Provider Department Center 04/25/2019 9:00 AM Kilo Wang MD NEURO NI Objective Vitals: 02/02/19 0919 BP: 124/76 BP Source: Right Arm Position: Sitting Cuff Size: Large Pulse: 88 Temp: 98.1 ??F (36.7 ??C) Weight: 104 kg (228 lb 9.6 oz) TempSrc: Oral Body mass index is 32.8 kg/m??. Physical Exam Nursing note and vitals [...] well-developed and well-nourished. Assessment and Plan 1. Chest discomfort - EKG-MUSE(INOFFICE TRACE/ PB CHARGE) - D-DIMER, QUANT; Future 2. Pain of upper abdomen - AMYLASE, SERUM; Future - LIPASE, SERUM; Future - COMPREHENSIVE METABOLIC PANEL; Future - CBC WITH DIFFERENTIAL - LAB; Future - GGTP-GAMMA GLUTAMYLTRANSP; Future - FL BARIUM SWALLOW/ESOPHAGRAM; Future 3. SOB (shortness of breath) on exertion - D-DIMER, QUANT; Future 4. Fatigue, unspecified type - TSH-THYROID STIM HORMONE; Future 5. Occipital neuralgia of right side 6. Essential hypertension - COMPREHENSIVE METABOLIC PANEL; Future - TSH-THYROID STIM HORMONE; Future - CBC WITH DIFFERENTIAL - LAB; Future I spent 40 minutes of a 45 minute visit counseling and coordinating care. 1,2,3,4. EKG performed in office - NSR, normal EKG Blood work per orders Discussed signs and symptoms that warrant further evaluation in the ED Order placed for barium swallow 5. Continue to follow-up with Neurology 6. Stable - continue current medication regimen, refills not needed today Blood work per orders Discussed that all of his testing is returning as normal. Discussed that possibly anxiety is contributing to his symptoms due to the frustration of not having a diagnosis. States that he is anxious because he wants to know what is wrong with him Discussed signs and symptoms that warrant further evaluation in the ED Will follow-up once blood work and barium swallow results are received Robert verbalized understanding of above. documented in this encounter Plan of Treatment Not on file documented as of this encounter Goals Goal Patient Goal Type Associated Problems Recent Progress Patient-Stated? Author Blood Pressure < 140/90 Blood Pressure 160/96( 024 8:13 AM EDT) No Kilo Wang MD documented as of this encounter Procedures Procedure Name Priority Date/Time Associated Diagnosis Comments EKG-MUSE(INOFFICE/P B CHARGE) Routine 02/02/2019 10:02 AM EDT Chest discomfort documented in this encounter Results * FL [...] ?? This procedure was performed by PHIL Hoewll under the supervision of Jay Delgado MD. This is in accordance with the [facility] Practice Provider scope of practice and [...] Epigastric and left upper quadrant abdominal pain [id number]. Comparison: None. Technique: Single and double contrast images were obtained utilizing denseand thin barium and effervescent crystals. This procedure was performed by PHIL Howell under thesupervision of Jay Delgado MD. This is in [facility] with [facility] scope of practice and [...] study. No findings to explain patient'ssymptoms. Dictating Mary Shell PA-C LG CORIN EATON Final Result * D-DIMER, QUANT (02/02/2019 10:23 AM EDT) Pathologist [facility] D-Dimer, Quantitative 0.25 <0.50 mg/L FEU 02/02/2019 12:48 PM EDT [facility] Comment: In the proper clinical scenario, [...] value for D-Dimer is >= 0.50mg/L FEU. 02/02/2019 10:2 3 AM EDT 02/02/2019 12:14 PM EDT Mary Shell PA-C HEMATOLOGY ORDERABLES F inal Result Performing Organization Address City/[facility]/ZIP Co de Phone Number [facility] [address] [place] [address] * GGTP-GAMMA GLUTAMYLTRANSP (02/02/2019 10:23 AM EDT) [facility] Gamma GT 13 9 - 64 U/L 02/02/2019 1:22 PM EDT [facility] 02/02/2019 10:2 3 AM EDT 02/02/2019 12:43 PM EDT Mary Shell PA-C CHEMISTRY ORDERABLES Fi nal Result [facility] [address] [facility] [place] [phone] * CBC WITH DIFFERENTIAL - LAB (02/02/2019 10:23 AM EDT) WBC Count 5.8 4.8 - 10.8 10*3/uL 02/02/2019 12:46 PM EDT [facility] RBC Count 5.18 4.60 - 6.20 10*6/uL 02/02/2019 12:46 PM EDT [facility] Hgb 15.6 14.0 - 18.0 g/dL 02/02/2019 12:46 PM EDT [facility] Hct 45.4 42.0 - 52.0 % 02/02/2019 12:46 PM EDT [facility] MCV 87.6 80.0 - 100.0 fL 02/02/2019 12:46 PM EDT [facility] MCH 30.1 27.0 - 33.0 pg 02/02/2019 12:46 PM EDT [facility] MCHC 34.4 32.0 - 36.0 g/dL 02/02/2019 12:46 PM EDT [facility] Platelet Count 192 150 - 450 10*3/uL 02/02/2019 12:46 PM EDT [facility] RDW 13.6 12.2 - 14.6 % 02/02/2019 12:46 PM EDT [facility] Neutrophils 63.6 45.0 - 75.0 % 02/02/2019 12:46 PM EDT [facility] Lymphocytes 23.3 19.0 - 46.0 % 02/02/2019 12:46 PM EDT [facility] Monocytes 10.7 2.0 - 12.0 % 02/02/2019 12:46 PM EDT [facility] Eosinophils 2.2 0.0 - 4.0 % 02/02/2019 12:46 PM EDT [facility] Basophils 0.2 0.0 - 1.5 % 02/02/2019 12:46 PM EDT [facility] Immature Granulocytes 0.2 0 - 2 % 02/02/2019 12:46 PM EDT [facility] Neutrophils Absolute 3.68 2.20 - 8.00 10*3/uL 02/02/2019 12:46 PM EDT [facility] Lymphocytes Absolute 1.35 0.90 - 5.00 10*3/uL 02/02/2019 12:46 PM EDT [facility] Monocytes Absolute 0.62 0.20 - 0.80 10*3/uL 02/02/2019 12:46 PM EDT [facility] Eosinophils Absolute 0.13 0.00 - 0.40 10*3/uL 02/02/2019 12:46 PM EDT [facility] Basophils Absolute 0.01 0.00 - 0.40 10*3/uL 02/02/2019 12:46 PM EDT [facility] Immature Granulocyte Absolute 0.01 10*3/uL 02/02/2019 12:46 PM EDT [facility] 02/02/2019 10:2 3 AM EDT 02/02/2019 12:37 PM EDT us Mary Shell PA-C HEMATOLOGY ORDERABLES F inal Result Performing Organization Address City/[facility]/ZIP Co de Phone Number [facility] [address] [facility] [place] [phone] * TSH-THYROID STIM HORMONE (02/02/2019 10:23 AM EDT) Thyroid Stimulating Hormone 1.30 0.45 - 5.33 u[IU]/mL 02/02/2019 1:27 PM EDT [facility] 02/02/2019 10:2 3 AM EDT 02/02/2019 12:43 PM EDT us Mary Shell PA-C CHEMISTRY ORDERABLES Fi nal Result Performing Organization Address City/[facility]/ZIP Co de Phone Number [facility] [address] [facility] [place] [address] * COMPREHENSIVE METABOLIC PANEL (02/02/2019 10:23 AM EDT) Glucose (serum) 88 65 - 100 mg/dL 02/02/2019 1:22 PM EDT [facility] Blood Urea Nitrogen 12 8 - 22 mg/dL 02/02/2019 1:22 PM EDT [facility] Sodium 138 135 - 145 mmol/L 02/02/2019 1:22 PM EDT [facility] Potassium 4.3 3.4 - 5.3 mmol/L 02/02/2019 1:22 PM EDT [facility] Chloride 101 98 - 107 mmol/L 02/02/2019 1:22 PM EDT [facility] CO2 Venous 29.6 21.0 - 31.0 mmol/L 02/02/2019 1:22 PM EDT [facility] Anion Gap 7 5 - 15 mmol/L 02/02/2019 1:22 PM EDT [facility] Creatinine 0.9 0.7 - 1.2 mg/dL 02/02/2019 1:22 PM EDT [facility] BUN/Creatinine Ratio 13 10 - 20 Ratio 02/02/2019 1:22 PM EDT [facility] Osmolality Calculation (serum) 275 275 - 300 mosm/kg H2O 02/02/2019 1:22 PM EDT [facility] Calcium 9.6 8.6 - 10.3 mg/dL 02/02/2019 1:22 PM EDT [facility] Protein Total Serum 7.3 5.6 - 7.9 g/dL 02/02/2019 1:22 PM EDT [facility] Albumin 4.5 3.5 - 4.9 g/dL 02/02/2019 1:22 PM EDT [facility] Comment:Result reflects use of Bromocresol Green Methodology. Bilirubin Total 1.0 0.2 - 1.2 mg/dL 02/02/2019 1:22 PM EDT [facility] Alkaline Phosphatase 78 34 - 104 U/L 02/02/2019 1:22 PM EDT [facility] AST (SGOT) 20 13 - 40 U/L 02/02/2019 1:22 PM EDT [facility] ALT (SGPT) 21 7 - 52 U/L 02/02/2019 1:22 PM EDT [facility] A/G Ratio 1.6 1.0 - 2.0 Ratio 02/02/2019 1:22 PM EDT [facility] Globulin 2.8 gm/dL 02/02/2019 1:22 PM EDT [facility] GFR >60 mL/min/1.7 3 sqm 02/02/2019 1:22 PM EDT [facility] Comment: Notes for GFR: 1. ??Multiply result by 1.21 if patient is black/ ?[place]. 2. ??Chronic kidney disease: <60 mL/min/1.73 sq.m. ?Renal Failure: <15 mL/min/1.73 sq.m. Calcium, Corrected(Adj/Ca lc)Total 9.2 mg/dL 02/02/2019 1:22 PM EDT [facility] 02/02/2019 10:2 3 AM EDT 02/02/2019 12:43 PM EDT us Mary Shell PA-C CHEMISTRY ORDERABLES Fi nal Result [facility] [address] [place] [address] * LIPASE, SERUM (02/02/2019 10:23 AM EDT) Lipase 30 11 - 82 U/L 02/02/2019 1:22 PM EDT [facility] 02/02/2019 10:2 3 AM EDT 02/02/2019 12:43 PM EDT us Mary Shell PA-C CHEMISTRY ORDERABLES Fi nal Result Performing Organization Address City/[facility] Co de Phone Number [facility] [address] [place] [facility] [place] [address] * AMYLASE, SERUM (02/02/2019 10:23 AM EDT) Amylase 34 29 - 103 U/L 02/02/2019 1:22 PM EDT [facility] 02/02/2019 10:2 3 AM EDT 02/02/2019 12:43 PM EDT us Mary Shell PA-C CHEMISTRY ORDERABLES Fi nal Result Performing Organization Address City/[facility] Co de Phone Number [facility] [address] [place] [facility] [place] [address] * EKG-MUSE(INOFFICE TRACE/ PB CHARGE) (02/02/2019 10:02 AM EDT) Ventricular Rate 83 BPM [facility] Atrial Rate 83 BPM [facility] P-R Interval 176 ms [facility] QRS Duration 84 ms [facility] Q-T Interval 368 ms [facility]-EKG QTC Calculation 432 ms [facility]-EKG Calculated P [place] 20 degrees [facility]-E[facility] Calculated R [place] 48 degrees [facility]-E[facility] Calculated T [place] 5 degrees [facility]KG 02/02/2019 10:0 2 AM EDT 02/02/2019 12:51 PM EDT Narrative [facility] - 02/02/2019 12:51 PM EDT Normal sinus rhythm Normal ECG When compared with ECG of 31-JUL-2018 11:17, No significant change was found Confirmed by Gillian Alejandra ([id number]) on 02/02/2019 12:51:52 PM Mary Shell PA-C ECG ORDERABLES Final R esult [facility] [address] [place] [address] documented in this encounter Visit Diagnoses Diagnosis Chest discomfort- Primary Other chest pain Pain of upper abdomen Abdominal pain, other specified site SOB (shortness of breath) on exertion Shortness of breath Fatigue, unspecified type Occipital neuralgia of right side Essential hypertension Unspecified essential hypertension Pain of upper abdomen Abdominal pain, other specified site documented in this encounter Care Teams Process Area Supervisor Relationship Specialty Start Date End Date Mary Shell PA-C [address] [address] PCP - General Family Practice 04/12/18 07/10/23 Kilo Wang MD Consulting Physician Neurology 08/30/16 12/01/21 Juan Haddad MD [address] [address] Otolaryngology 09/23/17 documented as of this encounter
--- OUTSIDE RECORDS SUMMARY | 2024-06-24 04:38 | XMS_ITS | Encounter Summary ---
Author Organization [facility]th Address [address] [address] Care Team Providers Care Ground Source Heat Pump Technician Name Role Phone aSl Wright DO Primary Care Provider Kilo Wang MD Unavailable [phone] Juan Haddad MD Unavailable [phone] Reason for Visit * Reason Comments Surgical Followup Lt.CTR, Cubital tunn el release Encounter Details Date Type Department Care Team (Late st Contact Info) Description 04/04/2018 9:00 AM EDT Office Visit [facility] [address] [place] [address] Kiarra Johnson PA-C [address] [facility] [place] [address] Encounter for other orthopedic aftercare (Primary Dx) [...] Sign Reading Time Taken Comments Blood Pressure 149/107 04/04/2018 8:35 AM EDT Pulse 77 04/04/2018 8:35 AM EDT Temperature - - Respiratory Rate - - Oxygen Saturation - - Inhaled Oxygen Concentration - - Weight 104 kg (230 lb) 04/04/2018 8:35 AM EDT Height 180.3 cm (5' 11 ) 04/04/2018 8:35 AM EDT Body Mass Index 32.08 04/04/2018 8:35 AM EDT documented in this encounter Progress Notes * Elizabeth Hernandez, Kiarra Taveras - 04/04/2018 8:37 AM EDT Assessment & Plan: Status post left carpal tunnel release and decompression ulnar nerve at the elbow I have recommended that the patient avoid heavy lifting, pushing and pulling for 3 additional weeks. The hand may be used lightly. He may shower and bathe and perform desensitization massage. He should avoid flexion of the elbow greater than 90 degrees until I see him back. After 3 weeks, I recommend that he begin to gradually increase use of the hand. He will follow up in 3 weeks. If there are any questions or concerns, he will contact me. Current visit Dx include: 1. Orthopedic aftercare 2. S/P carpal tunnel release 3. S/P decompression of ulnar nerve at elbow Imaging Results: No results found. Subjective: HPI Robert Alexis Jr. is a 53 y.o. male who presents for postoperative visit status post left carpal tunnel release and decompression ulnar nerve at the elbow 12 days ago. He indicates that he no longerhas pain in his hands at night. He has no complaints of numbness or tingling during the day. Objective: Vitals: Visit Vitals BP (!) 149/107 Pulse 77 Ht 1.803 m (5' 11 ) Wt 104 kg (230 lb) BMI 32.08 kg/m?? Review of Systems Constitutional: Negative for chills, diaphoresis and fever. Respiratory: Negative for shortness of breath. Cardiovascular: Negative for chest pain. Gastrointestinal: Negative for nausea and vomiting. Physical Exam Ortho Exam The incisions are well-healed. There is no erythema or drainage. Sutures were removed without any difficulty and the patient tolerated this well. Range of motion of the hand, wrist and elbow are fulland intact. Allergies: He has No Known Allergies. Past [...] history is not on file. Current Medications: Active Problems: He has Essential [...] Primary documented in this encounter Care Teams Ground Source Heat Pump Technician Relationship Specialty Start Date End Date Sal Wright DO PCP - General 08/28/12 04/11/18 Kilo Wang MD Consulting Physician Neurology 08/30/16 12/01/21 Juan Haddad MD [facility] [place] [address] Otolaryngology 09/23/17 documented as of this encounter
--- OUTSIDE RECORDS SUMMARY | 2024-06-24 04:38 | XMS_ITS | Encounter Summary ---
Author Organization [facility] alth Address [address] [place] [address] Care Team Providers Care Purchase Order Checker Name Role Phone Kilo Wang MD Unavailable [phone] Juan Haddad MD Unavailable [phone] Dasha Sheppard PA-C Primary Care Provider Chato Mosquera MD Unavailable [phone] Reason for Referral * Test/Procedure/Other (Routine) - Closed Specialty Diagnoses / Procedures Referred By Contac t Referred To Contact Diagnoses Ascending aorta enlargement (CMS/HCC) Procedures ECHOCARDIOGRAM Avery Rushing MD [address] [place] [address] Phone: tel: fax: Referral ID Status Reason Start Date Expiration Date Visits Re quested Visits Authorized [id number] Closed 09/03/2019 01/01/2020 1 1 Encounter Details Date Type Department Care Team (Late st Contact Info) Description 08/01/2018 Telephone [facility] [address] [address] Avery Rushing MD [address] [place] [address] Social History Tobacco Use Types Packs/Day Years [...] encounter Miscellaneous Notes * Addendum Note - Estrella Hook RN - 08/22/2019 1:09 PM ESTAddended by: ESTRELLA HOOK on: 08/22/2019 01:09 PM Modules accepted: Orders * Telephone Encounter - Tarah Solorio - 08/01/2018 3:50 PM EST Pt scheduled 08/01 for [facility]; echo referral edited to reflect that it is due in jul 2019 * Telephone Encounter - Jill Pereira RN - 08/01/2018 3:27 PM EST Pt notified and accepts. Instructions given and all questions answered. IP doc created and routed for signature. Instructions sent via [employer] for Pt reference. Routing to scheduling to arrange. Stress Echocardiogram (Stress Test) Arrival Time: Please arrive 15 minutes before the scheduled test time. Pre-procedure Medicine Instructions: Some medications may cause [...] tartrate, Metoprolol succinate, Nadolol, Nebivolol, Pindolol, Propranolol Nitrates: Nitroglycerin, isosorbide mononitrate, Isosorbide dinitrate. ??? DO NOT take these medicines for 72 hours before the test: Erectile Dysfunction medications: Cialis, Levitra, Viagra, Vardenafil, Tadalafil, Revalto, Sildenafil, Adcirca, Avanafil. ??? If you are diabetic, your doctor will tell you how much insulin you should take the day of the test. ??? Use your inhalers as usual and bring them to the hospital with you. General Instructions: ??? You may drink water [...] room; they cannot be with you during test. Common Questions: What is a Stress Echocardiogram? A Stress Echocardiogram is a stress test that looks at your heart rhythm and heart function while you walk on a treadmill. The test uses sound waves to look at how well the heart muscle squeezes. Your heart rhythm and function will be checked before, during, and after exercise. What is its purpose of this test? There are many reasons why this test is ordered, but the main reason is to check for changes that could mean you have a blockage in one or more of the arteries that supply your heart with blood and oxygen. Who will be involved in the test? A nuclear medical technologist or nurse and a cardiac histotechnologist will perform the test. A doctor may or may not be in the room with you, but there is always a doctor nearby. How hard is the exercise? You will start walking at a slow speed with the treadmill level and the speed and steepness of the treadmill will gradually increase every 2 or 3 minutes. It will likely be harder to exercise as the speed and steepness increase, however there is a handrail on the treadmillthat you can use to keep your balance. It is important to exercise for as long as possible. The staff will work with you to decide when to stop the test. Is an IV needed? Some patients may need to have an IV placed, so that we can provide a high qualitytest for the Supervisor Unloading to read. How long will the test take? The entire test lasts about one hour. When will the results be available? The doctor will read the test the same day. Please allow 2-3 week days for results. Your doctor may call you with the results or review them with you during a follow up visit. * Telephone Encounter - Avery Rushing MD - 08/01/2018 1:[address] angiogram of the chest and change Lexiscan stress test a stress echocardiogram. Repeat echocardiogram in 1 year to reevaluate aortic root. * Telephone Encounter - Milvia Mccallum - 08/01/2018 12:51 PM EST Hi Mike Man [facility], authorization for CT ANGIOGRAM CHEST 80323 & NUC CARDIAC SPEC W/ ADENOSINE/MAGDA/PER 57158 are denied. Please review the reasons for each denial and determine if you would like to complete the [id number], order alternative testing, or withdrawal the request? Below list the reason foreach test/denial and further down is the P2P info. CT ANGIOGRAM CHEST Testing Denial Reason: + Your doctor asked for coverage for you to have a(n) Chest CT Angiography to treat the following problem that you have: enlarged aortic root on a heart sound wave picture through the chest wall (TTE) with normal size aorta on Chest CT scan. + The following notes were requested but have not been sent: document the need for another measurement of aortic size. MYOCARDIAL PERFUSION IMAGING Alternative testing suggested: STRESS ECHOCARDIOGRAM [id number] information: , Option 3, 4 TRACKIN Your Thank you, Milvia ELIZABETH Precert [id number] documented in this encounter Plan of Treatment Not on file documented as of this encounter Goals Goal Patient Goal Type Associated Problems Recent Progress Patient-Stated? Author Blood Pressure < 140/90 Blood Pressure 160/96( 024 8:13 AM EDT) No Kilo Wang MD documented as of this encounter Results * ECHOCARDIOGRAM (11/22/2019 3:18 PM EDT) EJECTION FRACTION (%) 60 % [facility] Anatomical Region Laterality Modality Chest ECHO 11/22/2019 2:43 PM EDT Narrative 11/22/2019 10:08 PM EDT ? Non-invasive Cardiology [address] [place] [address], [place] [address] ? Echocardiography Services ?Adult Echo Report Name: CARTER GOMES, JR. ?Study Date: 11/22/2019 02:43 PM ? BP: 122/78 mmHg ?Patient Location: [facility] ? HR: 85 : 1965 ? Gender: Male ?Height: 72 in Age: 54 yrs ? Weight: 234 lb ?Ordering Physician: AVERY RUSHING ?Vending Mechanic: Ollie Grace RCS Reason For Study: reassess asc aorta and aortic root ?BSA: 2.3 m2 History: HTN, ASTHMA, OBESITY INTERPRETATION SUMMARY Est. LV Ejection Fraction is 60-65%. The aortic root dimension is increased. The ascending aorta dimension is increased. STUDY DETAILS: ?? Complete Echocardiogram ([id number]). FINDINGS: LEFT VENTRICLE: ?? Left ventricular size [...] Mynor Webster DO - 11/22/2019 Non-invasiveCardiology [address] [place] [address] EchocardiographyServic Adult Echo Report Name: KAM GOMESBRANDIE Taveras JR. Study Date: 11/22/2019 02:43 PMBP: 122/78 mmHg Patient Location: [facility]: : 1965 Gender: MaleHeight: 72 in Age: 54 yrsWeight: 234 lb Ordering Physician: Betsey RUSHINGographer: Ollie Grace RCS Reason For Study: reassess asc aorta and aortic rootBSA: 2.3 m2 History: HTN, ASTHMA, OBESITY INTERPRETATION SUMMARY Est. LV Ejection Fraction is 60-65%. The aortic root dimension is increased. The ascending aorta dimension is increased. STUDY DETAILS: Complete Echocardiogram ([id number]). FINDINGS: LEFT VENTRICLE: Left ventricular size is [...] cm/sec MV E/A: 1.3 __ us Avery Rushing MD LG RIS ECHO ORDERABLES Final Re sult documented in this encounter Visit Diagnoses Diagnosis Ascending aorta enlargement (CMS/HCC)- Primary Other specified disorders of arteries and arterioles Ascending aorta enlargement (CMS/HCC) Other specified disorders of arteries and arterioles documented in this encounter Care Teams Purchase Order Checker Relationship Specialty Start Date End Date Dasha Sheppard PA-C [address] [place] [address] PCP - General Family Practice 04/12/18 07/10/23 Kilo Wang MD Consulting Physician Neurology 08/30/16 12/01/21 Juan Haddad MD [address] [address] Otolaryngology 09/23/17 Chato Mosquera MD [address], [facility] [address] [address] Theatrical Variety Agent Endocrinology, Diabetes & Metabolism 12/07/18 12/10/18 documented as of this encounter
--- OUTSIDE RECORDS SUMMARY | 2024-06-24 04:38 | XMS_ITS | Encounter Summary ---
Author Organization [facility] alth Address [address] [facility] [place] [address] Care Team Providers Care Elastic Attacher Zigzag Name Role Phone Kilo Wang MD Unavailable [phone] Juan Haddad MD Unavailable [phone] Dasha Sheppard PA-C Primary Care Provider Reason for Visit * Reason Onset Date Comments Error 07/31/2018 Encounter Details Date Type Department Care Team (Late st Contact Info) Description 07/31/2018 Telephone [facility] [place] [address] [facility], [address] [place] [id number] Dasha Sheppard PA-C [address] [facility] [place] [address] Error Social History Tobacco Use Types Packs/Day Years [...] encounter Miscellaneous Notes * Telephone Encounter - Criss Alex LPN - 08/01/2018 8:56 AM EST error documented in this encounter Plan of Treatment Not on file documented as of this encounter Visit Diagnoses Not on filedocumented in this encounter Care Teams Elastic Attacher Zigzag Relationship Specialty Start Date End Date Dasha Sheppard PA-C [address] [address] PCP - General Family Practice 04/12/18 07/10/23 Kilo Wang MD Consulting Physician Neurology 08/30/16 12/01/21 Juan Haddad MD [address] [address] Otolaryngology 09/23/17 documented as of this encounter
--- OUTSIDE RECORDS SUMMARY | 2024-06-24 04:38 | XMS_ITS | Encounter Summary ---
Author Organization [facility] alth Address [address] [place] [address] Care Team Providers Care Delivery Driver Assistant Name Role Phone Kilo Wang MD Unavailable [phone] Juan Haddad MD Unavailable [phone] Dasha Sheppard PA-C Primary Care Provider Reason for Visit * Test/Procedure/Other (Routine) - Closed Specialty Diagnoses / Procedures Referred By Contac t Referred To Contact Radiology Diagnoses Neck pain Cervical radiculopathy Procedures XR CERVICAL SPINE 4-5 VIEWS Dasha Sheppard, JIA [address] [facility] [place] [address] Phone: tel: fax: Referral ID Status Reason Start Date Expiration Date Visits Re quested Visits Authorized [id number] Closed 04/12/2018 04/12/2019 1 1 Encounter Details Date Type Department Care Team (Latest Contact Info) Description 04/20/2018 5:00 PM EDT Ancillary [place] [address] [place] [id number] Neck pain; Cervical radiculopathy Discharge Disposition: Home/Self Care Social History Tobacco [...] Name Priority Date/Time Associated Diagnosis Comments XR CERVICAL SPINE 4-5 VIEWS Routine 04/20/2018 4:51 PM EDT Neck pain Cervical radiculopathy documented in this encounter Results * XR CERVICAL SPINE 4-5 VIEWS (04/20/2018 4:51 PM EDT) Anatomical Region Laterality Modality C-Spine Computed Radiogr aphy 04/20/2018 4:51 PM EDT Impressions 04/20/2018 5:24 PM EDT Degenerative changes Dictating Narrative 04/20/2018 5:24 PM EDT 4 view cervical spine HISTORY: Right-sided neck pain for 3 months COMPARISON: None TECHNIQUE: AP, lateral and bilateral oblique views obtained FINDINGS: Moderate disc degeneration at C5-6, C6-7 and C3-4. LEFT foraminal stenosis at C3-4 C4-5, C5-6 and C6-7. No fracture or destructive lesion. No subluxation. Prevertebral soft tissues are normal Procedure Note Dariel Lai MD - 04/20/2018 4 view cervical spine HISTORY: Right-sided neck pain for 3 months COMPARISON: None TECHNIQUE: AP, lateral and bilateral oblique views obtained FINDINGS: Moderate disc degeneration at C5-6, C6-7 and C3-4. LEFT foraminal stenosisat C3- 4 C4-5, C5-6 and C6-7. No fracture or destructive lesion. Nosubluxation. Prevertebral soft tissues are normal IMPRESSION: Degenerative changes Dictating Dasha Sheppard PA-C LG RIS DIAG IMAGING ORD ERABLES Final Result documented in this encounter Visit Diagnoses Diagnosis Neck pain Cervicalgia Cervical radiculopathy Brachial neuritis or radiculitis nos documented in this encounter Care Teams Delivery Driver Assistant Relationship Specialty Start Date End Date Dasha Sheppard PA-C [facility] [place] [address] PCP - General Family Practice 04/12/18 07/10/23 Kilo Wang MD Consulting Physician Neurology 08/30/16 12/01/21 Juan Haddad MD [address] [place] [address] Otolaryngology 09/23/17 documented as of this encounter
--- OUTSIDE RECORDS SUMMARY | 2024-06-24 04:38 | XMS_ITS | Encounter Summary ---
Author Organization [facility] [address] [facility] [address] Care Team Providers Care [employer] Farmer Name Role Phone Kilo Wang MD Unavailable [phone] Juan Haddad MD Unavailable Dasha Sheppard PA-C Primary Care Provider Reason for Visit * Reason Comments Numbness Headache Weakness Encounter Details Date Type Department Care Team (Late st Contact Info) Description 01/23/2019 8:30 AM EDT Office Visit NEUROLOGY [address] [place] [address] Kilo Wang MD [address] [facility] [address] [place] [address] Occipital neuralgia of right side (Primary Dx); Polyneuropathy in other diseases classified elsewhere (CMS/HCC); Essential hypertension; Nonspecific abnormal electrocardiogram (ECG) (EKG); Anxiety; Bilateral carpal tunnel syndrome; Cubital tunnel syndrome on left; Lyme disease; Congenital absence of left kidney; Intractable episodic headache, unspecified headache type Discharge Disposition: Home/Self Care Social History [...] Reading Time Taken Comments Blood Pressure 130/80 01/23/2019 8:48 AM EDT Pulse 80 01/23/2019 8:48 AM EDT Temperature - - Respiratory Rate - - Oxygen Saturation - - Inhaled Oxygen Concentration - - Weight 107 kg (235 lb) 01/23/2019 8:48 AM EDT Height 177.8 cm (5' 10 ) 01/23/2019 8:48 AM EDT Body Mass Index 33.72 01/23/2019 8:48 AM EDT documented in this encounter Progress Notes * Kilo Wang MD - 01/23/2019 8:48 AM EDT Images from the original note were not included. Assessment/Plan Robert Alexis Jr. is a 53 y.o. right handed male who presents with chief complaint of Numbness; Headache; and Weakness Current visit Dx include: 1. Occipital neuralgia of right side 2. Polyneuropathy in other diseases classified elsewhere (CMS/[facility]) 3. Essential hypertension 4. Nonspecific abnormal electrocardiogram (ECG) (EKG) 5. Anxiety 6. Bilateral carpal tunnel syndrome 7. Cubital tunnel syndrome on left 8. Lyme disease 9. Congenital absence of left kidney 10. Intractable episodic headache, unspecified headache type Impression Right occipital throbbing pain associated with tenderness, dizziness, blurring of the vision that seems to be atypical vascular headache versus occipital neuralgia we need to rule out large vessel stenosis versus occlusion. MRI and MRA of the brain were done in April 2016 and we reviewed them [facility] and there is no need to repeat the procedures. MRA of theneck is warranted at this point of time. The description of tremors, shakiness, and paresthesia of the feet extending to the calves of the legs are of different etiology and could be related to neuropathic symptoms of the lower extremities. He is probably experiencing tremors due to the use of gabapentin and to be tapered down to stop by his primary care physician. He did not start topiramate as prescribed by his primary care PA-C. If his workup is inconclusive, we will need to refer him to pain management for occipital nerve block and we will discuss this in the coming visit Plan: 1) MRA of the neck rule out any large vessel stenosis or occlusion leading to recurrent spells of dizziness, occipital vascular headache, or visual changes 2) MRI of the brain and MRA of the brain were reviewed from 2016 and they showed no significant abnormalities 3) EMG/NCS of the lower extremities to further define the nature of his sensory loss and sensory symptoms 4) is doing well as regards his bilateral carpal tunnel syndrome and left cubital tunnel syndrome status post surgical release by Dr. Portillo in 2018. 5) continue to taper down gabapentin and there is no need to start topiramate at this point of time. 6) ESR, CRP, B12, folate, TSH, and serum protein electrophoresis 7) follow-up in 3 months to discuss the test results Order Summary Normal Orders This Visit EMG Future Labs/Procedures Expected by SEDIMENTATION RATE (ESR) 01/23/2019 (Approximate) C-REACTIVE PROTEIN 02/13/2019 (Approximate) SERUM PROTEIN ELECTROPHORESIS, PROGRESSIVE 02/13/2019 (Approximate) VITAMIN B12 + FOLATE, RED CELL 02/13/2019 (Approximate) MR ANGIOGRAM NECK WO CONTRAST 02/20/2019 >50% of our 30 minute??visit was spent in counseling and coordination of care Subjective: HPI I had the pleasure meeting Eliseo accompanied by his for neurology follow-up visit. He was last seen in the office January 23, 2018 and was referred to Dr. Portillo and for carpal tunnel release surgery of both hands. He did very well after the procedures and he had no recurrence of his symptoms since the procedure. He is currently complaining of a different multiple issues including right occipital throbbing pain that usually exacerbated by stress, dehydration, working in the heat/humidity, or end of day and relieved by rest. He describes these pain associated with blurring of the vision and sense of shakiness and paresthesia in his upper and lower extremities. He had MRI of the brain and MRA of the brain in 2016 that were benign and we were able to review with him in PACS system of [facility]. He did not have MRI a of the neck and we need to take a look at his largeanterior and posterior circulation vessels make sure that he does not have any large vessel stenosis or occlusion. He was started on a trial of gabapentin by his primary care physician however because of the shakiness feeling which could be side effect to gabapentin he was advised to taper down to stop the medicine. He was given a trial of topiramate however he did not try this medicine as well since he was coming to see me. Subjective Follow Up: Return in about 3 months (around 04/25/2019) for Follow up. Active Problems: He has Essential hypertension; Asthma; Tubular adenoma of colon. 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 Current Medications: amLODIPine (NORVASC) 5 MG tablet Take 1 tablet by mouth daily. topiramate (TOPAMAX) 100 MG tablet Take 1/2 tablet at bedtime x 1 week then increase to one tablet at bedtime. Allergies: He has No Known Allergies. I reviewed the med list, past medical, surgical, social and family history. Review of Systems Musculoskeletal: Positive for myalgias and neck pain. Neurological: Positive for dizziness, tingling, tremors, sensory change, weakness and headaches. Negative for speech change, focal weakness, seizures and loss of consciousness. Psychiatric/Behavioral: The patient is nervous/anxious. All other systems reviewed and are negative. Diagnostic Data: WBC Count Date/Time Value Ref Range Status 04/20/2018 06:49 AM 5.5 4.8 - 10.8 10*3/uL Final Hgb Date/Time Value Ref Range Status 04/20/2018 06:49 AM 16.0 14.0 - 18.0 g/dL Final Hct Date/Time Value Ref Range Status 04/20/2018 06:49 AM 45.6 42.0 - 52.0 % Final Platelet Count Date/Time Value Ref Range Status 04/20/2018 06:49 AM 198 150 - 450 10*3/uL Final Glucose (serum) Date/Time Value Ref Range Status 02/17/2018 06:46 AM 91 65 - 100 mg/dL Final Sodium Date/Time Value Ref Range Status 04/20/2018 06:49 AM 139 135 - 145 mmol/L Final Potassium Date/Time Value Ref Range Status 04/20/2018 06:49 AM 4.0 3.4 - 5.3 mmol/L Final Chloride Date/Time Value Ref Range Status 04/20/2018 06:49 AM 102 98 - 107 mmol/L Final CO2 Venous Date/Time Value Ref Range Status 04/20/2018 06:49 AM 28.1 21.0 - 31.0 mmol/L Final Blood Urea Nitrogen Date/Time Value Ref Range Status 04/20/2018 06:49 AM 20 8 - 22 mg/dL Final Creatinine Date/Time Value Ref Range Status 04/20/2018 06:49 AM 1.1 0.7 - 1.2 mg/dL Final Calcium Date/Time Value Ref Range Status 04/20/2018 06:49 AM 9.4 8.6 - 10.3 mg/dL Final GFR Date/Time Value Ref Range Status 04/20/2018 06:49 AM >60 mL/min/1.73 sqm Final Comment: Notes for GFR: 1. Multiply result by 1.21 if patient is black/. 2. Chronic kidney disease: <60 mL/min/1.73 sq.m. Renal Failure: <15 mL/min/1.73 sq.m. Albumin Date/Time Value Ref Range Status 04/20/2018 06:49 AM 4.2 3.5 - 4.9 g/dL Final Comment: Result reflects use of Bromocresol Green Methodology. Bilirubin Total Date/Time Value Ref Range Status 04/20/2018 06:49 AM 1.3 (H) 0.2 - 1.2 mg/dL Final Alkaline Phosphatase Date/Time Value Ref Range Status 04/20/2018 06:49 AM 55 34 - 104 U/L Final AST (SGOT) Date/Time Value Ref Range Status 04/20/2018 06:49 AM 14 13 - 40 U/L Final ALT (SGPT) Date/Time Value Ref Range Status 04/20/2018 06:49 AM 16 7 - 52 U/L Final Cholesterol Date/Time Value Ref Range Status 04/20/2018 06:49 AM 202 (H) 125 - 200 mg/dL Final Triglyceride Date/Time Value Ref Range Status 04/20/2018 06:49 AM 75 60 - 150 mg/dL Final High Density Lipoprotein Chol Date/Time Value Ref Range Status 04/20/2018 06:49 AM 40 40 - 90 mg/dL Final Low Density Lipoprot Chol Calc Date/Time Value Ref Range Status 04/20/2018 06:49 AM 147 (A) <130 mg/dL Final Comment: Ages 25 - 150 Years [NCEP ATP III GUIDELINES] TOTAL CHOLESTEROL <200 Desirable 200-239 Borderline High >=240 High TRIGLYCERIDES <150 Normal 150-199 Borderline High 200-499 High >=500 Very High HDL CHOLESTEROL <40 Low (Increased Risk) >=60 High (Desirable) LDL CHOLESTEROL <100 Optimal in the absence of Arteriosclerotic Cardiovascular Disease 70-129 Mildly Elevated 130-159 Moderately Elevated 160-189 High >=190 Extremely High and clinical correlation suggested VLDL Cholesterol Date/Time Value Ref Range Status 04/20/2018 06:49 AM 15 mg/dL Final Chol/HDL Ratio Date/Time Value Ref Range Status 04/20/2018 06:49 AM 5.05 Ratio Final LDL/HDL Ratio Date/Time Value Ref Range Status 04/20/2018 06:49 AM 3.68 Ratio Final Non-HDL Cholesterol Date/Time Value Ref Range Status 04/20/2018 06:49 AM 162 mg/dL Final No results found for: VITB12 Objective: Objective Vitals: Visit Vitals BP 130/80 Pulse 80 Ht 1.778 m (5' 10 ) Wt 107 kg (235 lb) BMI 33.72 kg/m?? Physical Exam Constitutional: Alert, awake, and oriented to person, place, and time. Appears well-developed and well-nourished. No distress. HEENT: Head: Normocephalic and atraumatic. Right Ear: External ear normal. Left Ear: External ear normal. Nose: Nose normal. Mouth/Throat: Oropharynx is clear and moist. Eyes: Conjunctivae and EOM are normal. Pupils are equal, round, and reactive to light. No scleral icterus. Neck: Normal range of motion. Neck supple. No JVD present. No tracheal deviation present. No thyromegaly present. Cardiovascular: Normal rate, regular rhythm, normal heart sounds and intact distal pulses. Exam reveals no gallop. No murmur heard. Pulmonary/Chest: Effort normal and breath sounds normal. No wheezes. No rales. No tenderness. Abdominal: Soft. Bowel sounds are normal. No mass. There is no tenderness. There is no rebound. Musculoskeletal: Normal range of motion. No edema and no tenderness. Lymphadenopathy: There is no cervical adenopathy. Skin: warm and dry. No ecchymosis or rash. Tender right occipital ridge to palpation. Neurologic Exam Mental status: Alert, awake and oriented to person, place, and time. Memory and cognitive function:grossly intact Language: speech is fluent with no language difficulty. CN II-XII Visual field intact by confrontation testing, PERRL, extraocular movements intact, no nystagmus or gaze preference, facial sensation to light touch, pinprick, and sense of temperature are equal in , VII, VIII distribution bilaterally. Facial muscles of expression are equal bilateral, hearing is intact to conversation, shoulder shrugging and lateral head turning intact, tongue and uvula are mid-line Motor: good bulk and tone in UE and LE without focal weakness or pronator drift. Sensory: decrease fine touch, temperature, pin prick, sense of position, and vibration in the lowerextremities up to the level of the ankles bilateral. DTR: 2+ in upper and trace at lower extremities, plantars down going bilateral Cerebellar: intact finger nose finger and heel knee gomez testing bilateral. No ataxia or tremors. Gait: normal, able to walk tandem without difficulty. Kilo Wang MD documented in this encounter Plan of Treatment Not on file documented as of this encounter Results * SERUM PROTEIN ELECTROPHORESIS, PROGRESSIVE (01/23/2019 1:26 PM EDT) Protein Total 6.6 6.1 - 8.1 g/dL 01/28/2019 8:39 AM EDT [facility] Comment: Test Performed by [facility], [address] [place] [address] Tab Bryan M.D., Ph.D., Director of Laboratories [phone], CLIA [id number] Albumin (detail for AML) 4.0 3.8 - 4.8 g/dL 01/28/2019 8:39 AM EDT [facility] Alpha-1 Globulin 0.3 0.2 - 0.3 g/dL 01/28/2019 8:39 AM EDT [facility] Alpha-2 Globulin 0.7 0.5 - 0.9 g/dL 01/28/2019 8:39 AM EDT [facility] Beta-1 Globulin 0.4 0.4 - 0.6 g/dL 01/28/2019 8:39 AM EDT [facility] Beta-2 Globulin 0.3 0.2 - 0.5 g/dL 01/28/2019 8:39 AM EDT [facility] Gamma Globulin 0.9 0.8 - 1.7 g/dL 01/28/2019 8:39 AM EDT [facility] Monoclonal spike - serum SEE BELOW 01/28/2019 8:39 AM EDT [facility] Comment: No M Duran detected. ? Reference Range: None Detected PE Interpretation for IEP Group SEE BELOW 01/28/2019 8:39 AM EDT [facility] Comment: Normal Electrophoretic Pattern Test Performed by [facility], [address] [place], [place] Tab Bryan M.D., Ph.D., Director of Laboratories [phone], CLIA [id number] Immunofixation Electrophoresis Not indicated 01/28/2019 8:39 AM EDT [facility] 01/23/2019 1:26 PM EDT 01/23/2019 3:18 PM EDT us Kilo Wang MD CHEMISTRY ORDERABLES Final Resu lt [facility] [address] [place] [address] Dr [place], [place] * VITAMIN B12 + FOLATE, RED CELL (01/23/2019 1:26 PM EDT) Vitamin B12 288 180 - 914 pg/mL 01/23/2019 6:36 PM EDT [facility] Comment: Indeterminate 145-180 pg/mL Deficiency <145 pg/mL Some patients with low serum B12 (cobalamin) levels do not appear to be deficient in cobalamin. ??Serum B12 is low normal in a small number of patients with cobalamin deficiency. ??In complex or borderline cases, evalutaion of serum methylmalonic acid and serum total homocysteine may be of value, along with serum intrinsic factor antibody. Folate RBC 374 >280 ng/mL 01/27/2019 5:11 AM EDT [facility] Comment: Test Performed by [facility], [address] [place], [place] Tab Bryan M.D., Ph.D., Director of Laboratories [phone], [place] [id number] 01/23/2019 1:26 PM EDT 01/23/2019 3:44 PM EDT Kilo Wang MD CHEMISTRY ORDERABLES Final Resu lt Performing Organization Address [facility] Co de Phone Number [facility] [address] [place] [address] [facility] [address] [place] [address] [place], [place] * C-REACTIVE PROTEIN (01/23/2019 1:26 PM EDT) CRP C-Reactive Protein 4.0 0.0 - 8.0 mg/L 01/23/2019 6:03 PM EDT [facility] 01/23/2019 1:26 PM EDT 01/23/2019 3:18 PM EDT Kilo Wang MD CHEMISTRY ORDERABLES Final Resu lt Performing Organization Address [facility] de Phone Number [facility] [address] [place] [address] * SEDIMENTATION RATE (ESR) (01/23/2019 1:26 PM EDT) Sedimentation Rate 13 0 - 19 mm/Hr 01/23/2019 3:35 PM EDT [facility] Comment: FOR OUTPATIENT SPECIMENS: Results may be falsely decreased due to delay in testing time. ??Optimal specimen is tested within six hours of collection. ??CRP is a more stable analyte and is the recommended alternative test. 01/23/2019 1:26 PM EDT 01/23/2019 3:16 PM EDT us Kilo Wang MD HEMATOLOGY ORDERABLES Final Res ult Performing Organization Address [facility] de Phone Number [facility] [address] [place] [address] documented in this encounter Visit Diagnoses Diagnosis Occipital neuralgia of right side- Primary Polyneuropathy in other diseases classified elsewhere (CMS/[facility]) Polyneuropathy in other diseases classified elsewhere Essential hypertension Unspecified essential hypertension Nonspecific abnormal electrocardiogram (ECG) (EKG) Anxiety Anxiety state, unspecified Bilateral carpal tunnel syndrome Carpal tunnel syndrome Cubital tunnel syndrome on left Lesion of ulnar nerve Lyme disease Congenital absence of left kidney Congenital renal agenesis and dysgenesis Intractable episodic headache, unspecified headache type documented in this encounter Care Teams [employer] Farmer Relationship Specialty Start Date End Date Dasha Sheppard PA-C [address] [address] PCP - General Family Practice 04/12/18 07/10/23 Kilo Wang MD Consulting Physician Neurology 08/30/16 12/01/21 Juan Haddad MD [address] [address] Otolaryngology 09/23/17 documented as of this encounter
--- OUTSIDE RECORDS SUMMARY | 2024-06-24 04:38 | XMS_ITS | Encounter Summary ---
Author Organization [facility]th Address [address] [facility] [place] [address] Care Team Providers Care Talent Acquisition Consultant Name Role Phone Kilo Wang MD Unavailable [phone] Juan Haddad MD Unavailable [phone] Dasha Sheppard-C Primary Care Provider Reason for Visit * Test/Procedure/Other (Routine) - Closed Specialty Diagnoses / Procedures Referred By Donald carvajal Referred To Contact Radiology Diagnoses Neck pain Procedures NM BONE SPECT CT (TOMOGRAM) [facility] [address] [place] [id number] Phone: tel: fax: [facility] [address] [facility] [facility] [place] [address] Phone: tel: fax: Referral ID Status Reason Start Date Expiration Date Visits Re quested Visits Authorized [id number] Closed 06/08/2018 07/08/2018 1 1 Encounter Details Date Type Department Care Team (Latest Contact Info) Description 06/21/2018 10:15 AM EST Ancillary Procedure [facility] [address] [facility] [place] [address] Luigi Valdivia MD [address] [place] [address] Discharge Disposition: Home/Self Care Social History Tobacco [...] Procedure Name Priority Date/Time Associated Diagnosis Comments NM BONE SPECT CT SINGLE AREA Routine 06/21/2018 10:57 AM EST Neck pain documented in this encounter Results * NM BONE SPECT CT (TOMOGRAM) (06/21/2018 10:57 AM EST) Anatomical Region Laterality Modality Nuclear Medicine 06/21/2018 7:28 AM EST Impressions 06/21/2018 11:30 AM EST Degenerative changes with uptake as discussed. All exams performed by [facility] utilize one or more of the [...] uptake as discussed. All exams performed by [facility] utilize one or more of the following doseoptimization techniques: automated exposure control, adjustment of the mAand/or kV according to patient size and/or the use of iterativereconstruction techniques. Audits are completed at the protocol, deviceand patient level to ensure compliance. All protocols (per device) areperiodically reviewed by a team of medical physicists, technologists andradiologists Dictating us Luigi Valdivia MD [facility] NM ORDERABLES Final Result documented in this encounter Visit Diagnoses Not on filedocumented in this encounter Care Teams Talent Acquisition Consultant Relationship Specialty Start Date End Date Dasha Sheppard PA-C [address] [place] [address] PCP - General Family Practice 10/24/18 1/21/24 Kilo Wang MD Consulting Physician Neurology 08/30/16 12/01/21 Juan Haddad MD [address] [place] [address] Otolaryngology 09/23/17 documented as of this encounter
--- OUTSIDE RECORDS SUMMARY | 2024-06-24 04:38 | XMS_ITS | Encounter Summary ---
Author Organization [facility] alth Address [address] [facility] [facility] [place] [address] Care Team Providers Care Criminal Psychologist Name Role Phone Kilo Wang MD Unavailable [phone] Juan Haddad MD Unavailable Mary Shell PA-C Primary Care Provider Reason for Referral * Test/Procedure/Other (Routine) - Closed Specialty Diagnoses / Procedures Referred By Contac t Referred To Contact Cardiology Diagnoses Dyspnea, unspecified type Procedures ECHOCARDIOGRAM Mary Shell PA-C [address] [facility] [place] [address] Phone: tel: fax: [address] [address] Phone: tel: fax: Referral ID Status Reason Start Date Expiration Date Visits Re quested Visits Authorized [id number] Closed 06/27/2018 06/27/2019 1 1 Reason for Visit * Reason Comments Rash Patient is c/o a maría h on his upper abdomen that's been there for about 1 year. Patient states that he was seen at the manager store and was presribed a cream but that did not help. Neck Problem Patient is also c/o a throbbing feeling on the right side of his neck. Ear Problem Patient is also c/o bilateral ear ringing, also started years ago. Encounter Details Date Type Department Care Team (Late st Contact Info) Description 06/27/2018 10:40 AM EST Office Visit [facility] Line [address] [facility], [address] [place] [address] Mary Shell PA-C [address] [place] [address] Occipital neuralgia of right side (Primary Dx); Cervical radiculopathy; Rash and nonspecific skin eruption; Mass of chest wall, left; Dyspnea, unspecified type; Exposure to silica Discharge [...] Reading Time Taken Comments Blood Pressure 130/78 06/27/2018 10:46 AM EST Pulse 82 06/27/2018 10:46 AM EST Temperature 37 ??C (98.6 ??F) 06/27/2018 10:46 AM EST Respiratory Rate - - Oxygen Saturation - - Inhaled Oxygen Concentration - - Weight 112 kg (247 lb) 06/27/2018 10:46 AM EST Height - - Body Mass Index 33.5 06/07/2018 3:20 PM EST documented in this encounter Progress Notes * Mary Shell PA-C - 06/27/2018 10:41 AM EST Subjective: Patient roomed and information gathered by Anisa Lee CMA. Chart Review: Medication List reviewed / reconciled 06/27/2018 10:48 AM by ANISA LEE. Allergy List reviewed 06/27/2018 by ANISA LEE. Problem List reviewed 05/29/2018 by MARY SHELL. Immunization List reviewed 03/23/2018 6:18 AM by SARAHY HARVEY Chart Sections reviewed by provider: Health Maintenance reviewed 06/27/2018 10:49 AM by Anisa Lee CMA. Yes Since the last visit here, was the patient seen by a specialist? Yes (Neurologist) Barriers to care: Patient does not have a Living Will or Advance Directives Depression screening done. PHQ-9 score 6. Interpretation: Minimal Symptoms. Support, educate, ask patient to call if worsening Little interest or pleasure in doing things: 1 Feeling down, depressed or hopeless: 0 Trouble falling or staying asleep, or sleeping too much: 3 Feeling tired or having little energy: 0 Poor appetite or overeatin Feeling bad about yourself, that you are a failure or have let people down: 0 Trouble concentrating on things, like newspaper or TV: 1 Moving and speaking unusually slowly, or being unusually fidgety and restless: 1 Thoughts that you would be better off or hurting yourself: 0 How difficult have these problems made it to do your normal activities or get along with people: Somewhat Progress Note Carter Gomes Jr. is a 53 y.o. male who presents with chief complaint of Rash (Patient is c/o a rash on his upper abdomen that's been there for about 1 year. Patient states that he was seen at the manager store and was presribed a cream but that did not help. ); Neck Problem (Patient is also c/o athrobbing feeling on the right side of his neck. ); and Ear Problem (Patient is also c/o bilateral ear ringing, also started years ago. ) who is here today for an office visit. He is accompanied today by no one Medication compliance: Yes Here to discuss ongoing multiple medical issues - neck pain, tinnitus, vision changes, rash on chest, dyspnea Rash - rash has been present for 2 years, saw Dermatology approximately 7-8 months ago. Given cream(unknown) which did not help the rash. Rash is not pruritic Neck pain/throbbing: States that has ongoing pain in his neck was radicular symptoms. Symptoms improved when he was taking prednisone. Ears ringing, vision blurry when neck throbs. Saw specialist and SPECT performed - has follow-up office visit to discuss scan and further treatment. Continues to c/o mass of LEFT anterior chest under LEFT ribs - can feel that there is something there. 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 Discussed that tinnitus has no definite treatment. States that tinnitus worsens when his neck and RIGHT side of head symptoms are present Review of Systems Skin: Positive for rash. as above Active Problems: He has Essential hypertension; Asthma; Tubular adenoma of colon. Repeat colonoscopy in APR 2019; Anxiety; Occipital neuralgia of right side; Bilateral carpal tunnel syndrome; Vasovagal syncope; Cubital tunnel syndrome on left; Congenital absence of left kidney; Lyme disease; Right carpal tunnel syndrome; and Left carpal tunnel syndrome on their problem list. Current Medications: ??? predniSONE (DELTASONE) 20 MG tablet Take 3 tablets by mouth x 3 days, 2 tablets by mouth x 3 days, 1 tablet by mouth x 4 days. (Patient not taking: Reported on 06/27/2018.) Allergies: He has No Known Allergies. Past Medical History: He has a past medical history of Asthma and Lyme disease. Past Surgical History: He has a past surgical history that includes ENDOSCOPY, ESOPHAGUS (04/22/2016); HX Colonoscopy (04/22/2016); hx cyst removal (approx 2015); DECOMPRESSION NERVE MEDIAN CARPAL TUNNEL RELEASE: Carpal Tunnel Release (Left, 03/23/2018); DECOMPRESSION NERVE CUBITAL TUNNEL RELEASE: Cubital Tunnel Release (Left, 03/23/2018); and DECOMPRESSION NERVE MEDIAN CARPAL TUNNEL RELEASE: Carpal Tunnel Release (Right, 03/02/2018). Social History: He reports that he has never smoked. His smokeless tobacco use includes chew. He reports that he does not drink alcohol or use drugs. Family History: His family history includes Cancer (age of onset: 67) in his mother. Future appointments already scheduled: Future Appointments Date Time Provider Department Center 07/04/2018 9:00 AM Chato Isaac PA-C [facility] NeuroSc Objective: Vitals: Vitals: 06/27/18 1046 BP: 130/78 BP Source: Right Arm Position: Sitting Cuff Size: Large Pulse: 82 Temp: 98.6 ??F (37 ??C) Weight: 112 kg (247 lb) TempSrc: Oral Body mass index is 33.5 kg/m??. Physical Exam Nursing note and vitals [...] oriented to person, place, and time. Skin: +maculopapules over anterior chest, several with scabbing. No surrounding erythema or evidence of cellulitis. No drainage +palpable soft mobile mass under LEFT ribs of anterior chest in the mid- clavicular line. No TTP Psychiatric: He has a normal mood and affect. His behavior is normal. Judgment and thought content normal. Constitutional: He appears well-developed and well-nourished. Procedures: Procedures Assessment & Plan: 1. Occipital neuralgia of right side 2. Cervical radiculopathy 3. Rash and nonspecific skin eruption 4. Mass of chest wall, left 5. Dyspnea, unspecified type - CT CHEST W WO CONTRAST; Future - ECHOCARDIOGRAM; Future 6. Exposure to silica - CT CHEST W WO CONTRAST; Future Spent greater than half of this 35 minute visit in face to face counseling with the patient and/or care coordination. 1,2: Symptoms continue/persist - improved with steroids. Recommend NSAIDS for now Follow-up with specialist regarding SPECT results and further treatment 3. Recommend follow-up with Dermatology for possible scrap or punch biopsy of rash since it has been present for 2 years. Will call for appointment 4. Palpable mass - US was inconclusive 5,6. Orders placed for CT of chest and echocardiogram to further evaluate dyspnea as well as incidental findings on SPECT scan and history of significant exposure to silica Will follow-up once results are received Return to office with any new or worsening symptoms. Carter verbalized understanding of above. documented in this encounter Plan of Treatment Not on file documented as of this encounter Results * ECHOCARDIOGRAM (07/18/2018 9:06 AM EST) EJECTION FRACTION (%) 60 % [facility] Anatomical Region Laterality Modality Chest ECHO 07/18/2018 8:13 AM EST Narrative 07/18/2018 4:30 PM EST ?Non-invasive Cardiology [address] [place] [address], [place] [address] ?Echocardiography Services ? Adult Echo Report Name: MIREYA CARTER Taveras, JR. ?Study Date: 07/18/2018 08:13 AM ? BP: 132/89 mmHg ?Patient Location: *[facility] ?HR: 83 : 1965 ? Gender: Male ?Height: 72 in Age: 53 yrs ? Weight: 235 lb ?Ordering Physician: MARY SHELL ?Recordak Operator: Mark Rubalcava RDCS Reason For Study: dyspnea, followup of previous echo ?BSA: 2.3 m2 History: Asthma, HTN, Anxiety INTERPRETATION SUMMARY Global systolic LV function is normal. There is no evidence for LV regional wall motion abnormality. Est. LV Ejection Fraction is 60-65%. Normal diastolic function. There is no evidence for significant valvular pathology. The aortic root dimension is increased. The ascending aorta dimension is increased. Since last echo ascending aorta is larger-consider alternative imaging. STUDY DETAILS: ?? Complete Echocardiogram ([id number]). FINDINGS: LEFT VENTRICLE: ?? Left ventricular size is normal. LV wall thickness is normal. Global systolic LV function is normal. There is no evidence for LV regional wall motion abnormality. Est. LV Ejection Fraction is 60-65%. LV Ejection Fraction (MODbp): 63.4 %. Normal diastolic function. LEFT ATRIUM: ?? Left atrial size is normal. The interatrial septum (IAS) is not well visualized. MITRAL VALVE: ?? Mild mitral annular calcification. Mild mitral valve thickening. No mitral stenosis. Trace mitral regurgitation. AORTIC VALVE: ?? AV not well visualized. No aortic stenosis. No aortic insufficiency. RIGHT VENTRICLE: ?? Right ventricular size is normal. RV function is normal. RIGHT ATRIUM: ?? Right atrial size is normal. TRICUSPID VALVE: ?? Tricuspid valve not well visualized. There is no evidence for tricuspid valve stenosis. Trace tricuspid regurgitation. TV Doppler was technically limited. The estimated RVSP could not be accurately assessed. PULMONIC VALVE: ?? The pulmonic valve is not well visualized. There is no evidence for pulmonic stenosis. There is evidence for mild pulmonic insufficiency. GREAT VESSELS: ?? The aortic root dimension is increased. Aortic Root dimension = 4.3 cm (Norm 3.1 - 3.7). The ascending aorta dimension is increased. Ascending Aorta dimension = 3.5 cm (Norm 2.6 - 3.4). IVC not well visualized. PERICARDIUM: ?? No evidence of pericardial effusion. SUMMARY: ?? There is no evidence for significant valvular pathology. Since last echo ascending aorta is larger-consider alternative imaging. MMode/2D Measurements & Calculations IVSd: 0.96 cm ?LVIDd: 4.6 cm ?Ao Root: 4.3 cm ? Asc Ao: 3.5 cm ? LVIDs: 3.1 cm ? LVPWd: 1.0 cm ? Ao Root Index: 1.9 ? Asc Ao Index: 1.5 LV EF (MOD-bp): 63.4 % ?LA Vol Index: 26.7 ml/m2 ?LVIDd Index.: 2.0 LVEDV Index: 34.6 ml/m2 ?LVESV Index: 12.7 ml/m2 ?RA Vol. Index: 8.5 ml/m2 ? RVDd (A4c base): 3.6 cm ?TAPSE: 2.6 cm Time Measurements MV dec time: 0.25 sec Doppler Measurements & Calculations MV E: 75.0 cm/sec ? MV peak P.7 mmHg ?MV E': 8.5 cm/sec ? MV E/E': 8.8 MV A: 90.3 cm/sec ? MV mean P.7 mmHg MV E/A: 0.83 Procedure Note Dominguez Casas MD - 07/18/2018 Non-invasiveCardiology [address] [place] [id number] E[facility]ocardiographyServices Adult Echo Report Name: CARTER GOMES JR. Nitin Study Date: 07/18/2018 08:13 AMBP: 132/89 mmHg [facility] OPHR: 83 : 1965 Gender: MaleHeight: 72 in Age: 53 yrsWeight: 235 lb Ordering Physician: MARY SHELL Recordak Operator: Mark Rubalcava RDCS Reason For Study: dyspnea, followup of previous echo BSA: 2.3 m2 History: Asthma, HTN, Anxiety INTERPRETATION SUMMARY Global systolic LV function is normal. There is no evidence for LV regional wall motion abnormality. Est. LV Ejection Fraction is 60-65%. Normal diastolic function. There is no evidence for significant valvular pathology. The aortic root dimension is increased. The ascending aorta dimension is increased. Since last echo ascending aorta is larger-consider alternative imaging. STUDY DETAILS: Complete Echocardiogram ([id number]). FINDINGS: LEFT VENTRICLE: Left ventricular size is normal. LV wall thickness isnormal. Global systolic LV function is normal. There is no evidence for LV regional wall motion abnormality. Est. LVEjection Fraction is 60-65%. LV Ejection Fraction (MODbp): 63.4 %. Normal diastolic function. LEFT ATRIUM: Left atrial size is normal. The interatrial septum (IAS) isnot well visualized. MITRAL VALVE: Mild mitral annular calcification. Mild mitral valvethickening. No mitral stenosis. Trace mitral regurgitation. AORTIC VALVE: AV not well visualized. No aortic stenosis. No aorticinsufficiency. RIGHT VENTRICLE: Right ventricular size is normal. RV function isnormal. RIGHT ATRIUM: Right atrial size is normal. TRICUSPID VALVE: Tricuspid valve not well visualized. There is noevidence for tricuspid valve stenosis. Trace tricuspid regurgitation. TV Doppler was technically limited. The estimatedRVSP could not be accurately assessed. PULMONIC VALVE: The pulmonic valve is not well visualized. There is noevidence for pulmonic stenosis. There is evidence for mild pulmonic insufficiency. GREAT VESSELS: The aortic root dimension is increased. Aortic Rootdimension = 4.3 cm (Norm 3.1 - 3.7). The ascending aorta dimension is increased. Ascending Aorta dimension = 3.5 cm (Norm 2.6- 3.4). IVC not well visualized. PERICARDIUM: No evidence of pericardial effusion. SUMMARY: There is no evidence for significant valvular pathology. Sincelast echo ascending aorta is larger-consider alternative imaging. MMode/2D Measurements & Calculations IVSd: 0.96 cm LVIDd: 4.6 cm Ao Root: 4.3cm Asc Ao: 3.5 cm LVIDs: 3.1 cm LVPWd: 1.0 cm Ao Root Index: 1.9 Asc AoIndex: 1.5 LV EF (MOD-bp): 63.4 %LA Vol Index: 26.7 ml/m2 LVIDdIndex.: 2.0 LVEDV Index: 34.6 ml/m2 LVESV Index: 12.7 ml/m2RA Vol. Index: 8.5 ml/m2 RVDd (A4c base): 3.6 cm TAPSE: 2.6 cm Time Measurements MV dec time: 0.25 sec Doppler Measurements & Calculations MV E: 75.0 cm/sec MV peak P.7 mmHg MV E':8.5 cm/sec MV E/E': 8.8 MV A: 90.3 cm/sec MV mean P.7 mmHg MV E/A: 0.83 us Mary Shell PA-C LG RIS ECHO ORDERABLES Final Result documented in this encounter Visit Diagnoses Diagnosis Occipital neuralgia of right side- Primary Cervical radiculopathy Brachial neuritis or radiculitis nos Rash and nonspecific skin eruption Rash and other nonspecific skin eruption Mass of chest wall, left Dyspnea, unspecified type Exposure to silica Dyspnea, unspecified type documented in this encounter Care Teams Criminal Psychologist Relationship Specialty Start Date End Date Mary Shell PA-C [address] [place] [address] PCP - General Family Practice 04/12/18 07/10/23 Kilo Wang MD Consulting Physician Neurology 08/30/16 12/01/21 Juan Haddad MD [address] [place] [address] Otolaryngology 09/23/17 documented as of this encounter
--- OUTSIDE RECORDS SUMMARY | 2024-06-24 04:38 | XMS_ITS | Encounter Summary ---
Author Organization [facility] alth Address [address] [facility] [place] [address] Care Team Providers Care Speech Language Specialist Name Role Phone Kilo Wang MD Unavailable [phone] Juan Haddad MD Unavailable [phone] Dasha Sheppard PA-C Primary Care Provider Reason for Visit * Reason Onset Date Comments Other 07/31/2018 Adrenal mass carl ting / orders Encounter Details Date Type Department Care Team (Late st Contact Info) Description 07/31/2018 Telephone [facility] Line [address] [facility] [facility], [address] [place] [id number] Dasha Sheppard, PASeverino [address] [facility] [place] [address] Other (Adrenal mass testing / orders) Social History Tobacco Use Types Packs/Day Years [...] Telephone Encounter - Israel Zuniga LPN - 07/31/2018 8:33 AM EST Pt ntfd. He will get bw drawn at [facility]. * Telephone Encounter - Dasha Sheppard PA-C - 07/31/2018 8:18 AM EST Please contact Eliseo regarding his testing for the adrenal mass. Please advise that a prescription for Dexamethasone 1 mg will be sent to the pharmacy ([facility]). There will be one tablet - he will take the tablet at midnight and then the following morning will have a cortisol level drawn at 8 AM[address] I [address] also place orders for other blood work that was recommended by Endocrine (plasma metanephrines) to be drawn at the same time. Will follow-up once blood work results are received documented in this encounter Plan of Treatment Not on file documented as of this encounter Results * METANEPHRINES, PLASMA (08/03/2018 7:18 AM EST) [facility] Metanephrines, [facility], Plasma 32 <=57 pg/mL 08/07/2018 1:11 PM EST [employer] Comment: This test was developed and its analytical performance characteristics have been determined by [employer] [place], [place]. It has not been cleared or approved by the U.S. Food and Drug Administration. This assay has been validated pursuant to the CLIA regulations and is used for clinical purposes. Normetanephrine (Fract Plasma) 54 <=148 pg/mL 08/07/2018 1:11 PM EST [employer] Comment: This test was developed and its analytical performance characteristics have been determined by [employer] [place], [place]. It has not been cleared or approved by the U.S. Food and Drug Administration. This assay has been validated pursuant to the CLIA regulations and is used for clinical purposes. Total Metanephrine(FractP lasma) 86 <=205 pg/mL 08/07/2018 1:11 PM EST [employer] Comment: For additional information, please refer to http://education.[employer].Undo Software/faq/MetFractFree [This link is being provided for informational/educatio informational/educational purposes only.] Elevations >4-fold upper reference range: strongly suggestive of a pheochromocytoma[1]. Elevations >1- 4-fold upper reference range: significant but not diagnostic, may be due to medications or stress. Suggest running 24 hr urine fractionated metanephrines and/or serum Chromagranin A for confirmation. Reference: [1]Magdaleno Rivera et al, Plasma Chromogranin A or Urine Fractionated Metanephrines Follow-Up Testing Improves the Diagnostic Accuracy of Plasma Fractionated Metanephrines for Pheochromocytoma. The Journal of Clinical Endocrinology # Metabolism 93[1], 91-95, 2008. This test was developed and its analytical performance characteristics have been determined by [facility] [place]. It has not been cleared or approved by the U.S. Food and Drug Administration. This assay has been validated pursuant to the CLIA regulations and is used for clinical purposes. Test Performed by [employer], [employer] [facility], [address] [place] [address] Tab Bryan M.D., Ph.D., Director of Laboratories [phone], CLIA [id number] 08/03/2018 7:18 AM EST 08/03/2018 11:06 AM EST Dasha Sheppard PA-C CHEMISTRY ORDERABLES Fi nal Result [employer] [address] [facility] [place], [place] * (ABNORMAL) CORTISOL, AM SPECIMEN (5-9 AM) (08/03/2018 7:18 AM EST) [facility] cortisol AM (5-9 AM) 0.81(L) 6.70 - 23.00 ug/dL 08/03/2018 12:59 PM EST [facility] Comment: The above reference range is for ADULTS. For Cord Blood, the reference range is 5.0-17.0 ug/dL. For 8 AM serum cortisol in infants and children at selected ages, the reference ranges (ug/dL) are: 5 days ? 0.6-19.8 ??(median 3.3) 2-12 months ?2.4-22.9 ??(median 6.4) 2-15 years ??(male) ? 2.5-22.9 ??(median 8.8) 2-13 years ??(female) ?? 2.5-22.9 ??(median 8.8) 16-18 years (male) ? 2.4-28.6 ??(median 10.8) 14-18 years (female) ?? 2.4-28.6 ??(median 10.8) Reference: Celia and Ana Hein 08/03/2018 7:18 AM EST 08/03/2018 12:07 PM EST us Dasha Sheppard PA-C CHEMISTRY ORDERABLES Fi nal Result Performing Organization Address City/State/[facility] de Phone Number [facility] [address] [facility] [place] [phone] documented in this encounter Visit Diagnoses Diagnosis Adrenal mass (CMS/HCC)- Primary Unspecified disorder of adrenal glands documented in this encounter Care Teams Speech Language Specialist Relationship Specialty Start Date End Date Dasha Sheppard PA-C [address] [place] [address] PCP - General Family Practice 04/12/18 07/10/23 Kilo Wang MD Consulting Physician Neurology 08/30/16 12/01/21 Juan Haddad MD [address] [place] [address] Otolaryngology 09/23/17 documented as of this encounter
--- OUTSIDE RECORDS SUMMARY | 2024-06-24 04:38 | XMS_ITS | Encounter Summary ---
Author Organization [facility] alth Address [address] [facility] [place] [address] Care Team Providers Care Core Stripper Name Role Phone Kilo Wang MD Unavailable [phone] Juan Haddad MD Unavailable Dasha Sheppard PA-C Primary Care Provider Reason for Visit * Reason Onset Date Comments Results 08/11/2018 Encounter Details Date Type Department Care Team (Late st Contact Info) Description 08/11/2018 Telephone [facility] Line [address] [facility], [address] [place] [phone] Dasha Sheppard, JIA [address] [facility] [place] [address] Results Social History Tobacco Use Types Packs/Day [...] Telephone Encounter - Israel Zuniga LPN - 08/11/2018 10:04 AM EST pc with pt about lab results. Pt last had prednisone in April 2018, read him the cortisol resultfrom 08-03-18. documented in this encounter Plan of Treatment Not on file documented as of this encounter Visit Diagnoses Not on filedocumented in this encounter Care Teams Core Stripper Relationship Specialty Start Date End Date Dasha Sheppard PA-C [address] [place] [address] PCP - General Family Practice 04/12/18 07/10/23 Kilo Wang MD Consulting Physician Neurology 08/30/16 12/01/21 Juan Haddad MD [address] [place] [address] [address] Otolaryngology 09/23/17 documented as of this encounter
--- OUTSIDE RECORDS SUMMARY | 2024-06-24 04:38 | XMS_ITS | Encounter Summary ---
Author Organization [facility] alth Address [address] [facility] [address] Care Team Providers Care University Extension Specialist Name Role Phone Kilo Wang MD Unavailable [phone] Juan Haddad MD Unavailable [phone] Dasha Sheppard-C Primary Care Provider Reason for Visit * Test/Procedure/Other (Routine) - Closed Specialty Diagnoses / Procedures Referred By Donald carvajal Referred To Contact Radiology Diagnoses Neck pain Procedures NM BONE SPECT CT (TOMOGRAM) [facility] [address] [place] [phone] Phone: tel: fax: [facility] [address] [facility] [place] [address] Phone: tel: fax: Referral ID Status Reason Start Date Expiration Date Visits Re quested Visits Authorized [id number] Closed 06/08/2018 07/08/2018 1 1 Encounter Details Date Type Department Care Team (Latest Contact Info) Description 06/21/2018 7:15 AM EST Ancillary Procedure [facility] [address] [facility] [place] [address] Luigi Valdivia MD [address] [place] [address] Neck pain Discharge Disposition: Home/Self Care Social [...] uptake as discussed. All exams performed by [facility] utilize one or more of the following [...] uptake as discussed. All exams performed by [facility] utilize one or more of the following doseoptimization techniques: automated exposure control, adjustment of the mAand/or kV according to patient size and/or the use of iterativereconstruction techniques. Audits are completed at the protocol, deviceand patient level to ensure compliance. All protocols (per device) areperiodically reviewed by a team of medical physicists, technologists andradiologists Dictating us Luigi Valdivia MD [facility] NM ORDERABLES Final Result documented in this encounter Visit Diagnoses Diagnosis Neck pain Cervicalgia documented in this encounter Administered Medications Inactive Administered Medications - up to 3 most recent administrations Medication Order MAR Action Action Date Dose Rate Site 99m Technetium Medronate (MDP) IV 27.4 millicurie, Intravenous, IMG ONCE PRN, Other, Starting on Tue06/21/18 at 0728, For 1 dose Given 06/21/2018 7:15 AM EST 27.4 millicuries right antecubital documented in this encounter Care Teams University Extension Specialist Relationship Specialty Start Date End Date Dasha Sheppard PA-C [address] [place] [address] PCP - General Family Practice 04/12/18 07/10/23 Kilo Wang MD Consulting Physician Neurology 08/30/16 12/01/21 Juan Haddad MD [address] [address] Otolaryngology 09/23/17 documented as of this encounter
--- OUTSIDE RECORDS SUMMARY | 2024-06-24 04:38 | XMS_ITS | Encounter Summary ---
Author Organization [facility] alth Address [address] [place] [address] Care Team Providers Care Pie Maker Name Role Phone Kilo Wang MD Unavailable [phone] Juan Haddad MD Unavailable [phone] Mary Sheppard PA-C Primary Care Provider Reason for Visit * Test/Procedure/Other (Routine) - Closed Specialty Diagnoses / Procedures Referred By Contac t Referred To Contact Diagnoses Mass of chest wall, left Procedures US EXTREMITY NON-JOINT LT Mary Sheppard, PAGorgeC [address] [facility] [place] [address] Phone: tel: fax: Referral ID Status Reason Start Date Expiration Date Visits Re quested Visits Authorized [id number] Closed 04/12/2018 04/12/2019 1 1 Encounter Details Date Type Department Care Team (Latest Contact Info) Description 04/20/2018 4:45 PM EDT Ancillary Procedure [address] [place] [id number] Mass of chest wall, left Discharge Disposition: Home/Self Care Social History Tobacco [...] Name Priority Date/Time Associated Diagnosis Comments US EXTREMITY NON-JOINT LT Routine 04/20/2018 4:54 PM EDT Mass of chest wall, left documented in this encounter Results * US EXTREMITY NON-JOINT LT (04/20/2018 4:54 PM EDT) Anatomical Region Laterality Modality Ultrasound 04/20/2018 5:01 PM EDT Narrative 04/20/2018 4:58 PM EDT ?Department of Radiology and Diagnostic Imaging ? [place] [address] ?US Extremity Non-Joint Left Pat.Name: ??CARTER GOMES JR. ? Pat.ID: ?[id number] ? St.Date: ?? 04/20/2018 ? Refer.MD: ??MARY SHEPPARD ? Exam Time: 4:36:00 PM ? Study Type:US Extremity Non-Joint Lt ??Age: ??1965,53Y ?Sex: ? MALE ? Sonogrphr: MW1 ? Reason for Study:Mass of left chest wall FINDINGS: Sft Tissue: Ultrasound evaluation of the palpable area appears ?unremarkable. ??No focal abnormality noted. SUMMARY: Procedure: Sonographic evaluation of soft tissue left anterior chest wall. Technique: 2D images were obtained. Normal exam Dictating Workstation: [facility] Signed 04/20/2018 04:58 PM Dariel Lai MD Procedure Note Dariel Lai MD - 04/20/2018 Department of Radiology [place] [address] US Extremity Non-Joint Left Pat.Name: CARTER GOMES Nitin THOMAS Pat.ID: [id number] .Date: 04/20/2018 Refer.MD: MARY SHEPPARD Exam Time: 4:36:00 PM Study Type:US Extremity Non-Joint Lt Age: 12 1965,53Y Sex: MALE Sonogrphr: MW1 Reason for Study:Mass of left chest wall FINDINGS: Sft Tissue: Ultrasound evaluation of the palpable area appears unremarkable. No focal abnormality noted. SUMMARY: Procedure: Sonographic evaluation of soft tissue left anterior chest wall. Technique: 2D images were obtained. Normal exam Dictating Workstation: [facility] Signed 04/20/2018 04:58 PM Dariel Lai MD us Mary Sheppard PA-C RIS US ORDERABLES Fi nal Result documented in this encounter Visit Diagnoses Diagnosis Mass of chest wall, left documented in this encounter Care Teams Pie Maker Relationship Specialty Start Date End Date Mary Sheppard PA-C [address] [address] PCP - General Family Practice 04/12/18 07/10/23 Kilo Wang MD Consulting Physician Neurology 08/30/16 12/01/21 Juan Haddad MD [address] [address] Otolaryngology 09/23/17 documented as of this encounter
--- OUTSIDE RECORDS SUMMARY | 2024-06-24 04:38 | XMS_ITS | Encounter Summary ---
Author Organization [facility] alth Address [address] [address] Care Team Providers Care Subeditor Name Role Phone Efrain Marmolejo MD Unavailable [phone] Juan Haddad MD Unavailable [phone] Dasha Sheppard PA-C Primary Care Provider Reason for Referral * Test/Procedure/Other (Routine) - Closed Specialty Diagnoses / Procedures Referred By Contac t Referred To Contact Radiology Diagnoses Dizziness and giddiness TIA (transient ischemic attack) Procedures US CAROTID BILATERAL Efrain Marmolejo MD [address] [place] [address] Phone: tel: fax: [address] [address] Phone: tel: fax: Referral ID Status Reason Start Date Expiration Date Visits Re quested Visits Authorized [id number] Closed 02/02/2019 02/02/2020 1 1 Encounter Details Date Type Department Care Team (Late st Contact Info) Description 02/02/2019 Orders Only NEUROLOGY [address] [place] [address] Efrain Marmolejo MD [address] [place] [address] (work) Dizziness and giddiness (Primary Dx); TIA (transient ischemic attack) Social History Tobacco Use Types Packs/Day Years [...] Marmolejo MD documented as of this encounter Results * US CAROTID BILATERAL (02/06/2019 8:18 AM EDT) Anatomical Region Laterality Modality Vascular Ultrasound 02/06/2019 8:32 AM EDT Narrative 02/06/2019 8:29 AM EDT ?Department of Radiology and Diagnostic Imaging ? [place] [address] ? US Carotid Bilateral Pat.Name: ??KAM GOMESBRANDIE Taveras JR. ? Pat.ID: ?[id number] ? St.Date: ?? 02/06/2019 ? Refer.MD: ??EFRAIN [...] detailed numerical Doppler/Measurement data . Dictating Workstation: [facility], Department of Diagnostic Imaging and LHVI Criteria: 50-69% Stenosis. ICA PSV 125-230 cm/sec, ICA EDV 40-100 cm/sec, ICA/CCA ratio 2.0-4.0 ? 70% Stenosis but less than near occlusion. ICA PSV >230 cm/sec, ICA EDV > 100 cm/sec, ICA/CCA ratio > 4.0 Signed 02/06/2019 08:28 AM Steven Anand MD Procedure Note Steven Anand MD - 02/06/2019 Department of Radiology [place] [address] US Carotid Bilateral Pat.Name: MIREYA CARTERBRANDIE Taveras JR. Pat.ID: [id number] .Date: 02/06/2019 Refer.: EFRAIN MARMOLEJO Exam Time: 7:54:00 AM Study [...] ? Order Level PDF imaging report? in [facility] for detailed numerical Doppler/Measurement data . Dictating Workstation: [facility], Department of Diagnostic Imaging and LHVI Criteria: 50-69% Stenosis. ICA PSV 125-230 cm/sec, ICA EDV 40-100 cm/sec, ICA/CCA ratio 2.0-4.0 ? 70% Stenosis but less than near occlusion. ICA PSV >230 cm/sec, ICA EDV > 100 cm/sec, ICA/CCA ratio > 4.0 Signed 02/06/2019 08:28 AM Steven Anand MD Efrain Marmolejo MD [facility] ORDERABLES Final Resu lt documented in this encounter Visit Diagnoses Diagnosis Dizziness and giddiness- Primary TIA (transient ischemic attack) Unspecified transient cerebral ischemia Dizziness and giddiness TIA (transient ischemic attack) Unspecified transient cerebral ischemia documented in this encounter Care Teams Subeditor Relationship Specialty Start Date End Date Dasha Sheppard PA-C [address] [place] [address] [place] [address] PCP - General Family Practice 04/12/18 07/10/23 Efrain Marmolejo MD Consulting Physician Neurology 08/30/16 12/01/21 Juan Haddad MD [address] [place] [address] Otolaryngology 09/23/17 documented as of this encounter
--- OUTSIDE RECORDS SUMMARY | 2024-06-24 04:38 | XMS_ITS | Encounter Summary ---
Author Organization [facility] alth Address [address] [facility] [place] [address] Care Team Providers Care Ship Runner Name Role Phone Kilo Wang MD Unavailable [phone] Juan Haddad MD Unavailable Dasha Sheppard PA-C Primary Care Provider Reason for Visit * Reason Onset Date Comments Other 04/14/2018 Encounter Details Date Type Department Care Team (Late st Contact Info) Description 04/14/2018 Telephone [facility] Line [address] [facility], [address] [place] [id number] Dasha Sheppard PA-C [address] [place] [address] [place] [address] Other Social History Tobacco Use Types Packs/Day [...] Telephone Encounter - Israel Zuniga LPN - 04/14/2018 10:50 AM EDT [facility] [place] 2[place] [facility]fd. * Telephone Encounter - Dasha Sheppard PA-C - 04/14/2018 9:37 AM EDT The mass is not in breast tissue, it is LEFT sided abdomen under ribs * Telephone Encounter - Catherine Phillips LPN - 04/14/2018 9:14 AM EDT [facility] with [facility] ultrasound phoned questioning where lump it- questioning the ultrasound extremity non-joint? Francis states if lump in in breast tissue or anywhere close to breast tissue patient wouldneed to see breast center. Please advise. documented in this encounter Plan of Treatment Not on file documented as of this encounter Visit Diagnoses Not on filedocumented in this encounter Care Teams Ship Runner Relationship Specialty Start Date End Date Dasha Sheppard PA-C [address] [address] PCP - General Family Practice 04/12/18 07/10/23 Kilo Wang MD Consulting Physician Neurology 08/30/16 12/01/21 Juan Haddad MD [address] [address] Otolaryngology 09/23/17 documented as of this encounter
--- OUTSIDE RECORDS SUMMARY | 2024-06-24 04:38 | XMS_ITS | Encounter Summary ---
Author Organization [facility] alth Address [address] [facility] [place] [address] Care Team Providers Care Citrix Architect Name Role Phone Kilo Wang MD Unavailable [phone] Juan Haddad MD Unavailable [phone] Mary Sheppard PA-C Primary Care Provider Reason for Visit * Reason Comments Anxiety Encounter Details Date Type Department Care Team (Late st Contact Info) Description 03/27/2019 11:40 AM EDT Office Visit [facility] Line [address] [facility], [address] [place] [phone] Mary Sheppard PA-C [address] [place] [address] [place] [address] Anxiety (Primary Dx) Discharge Disposition: Home/Self Care [...] Sign Reading Time Taken Comments Blood Pressure 128/82 03/27/2019 11:35 AM EDT Pulse 84 03/27/2019 11:35 AM EDT Temperature - - Respiratory Rate - - Oxygen Saturation - - Inhaled Oxygen Concentration - - Weight 102 kg (225 lb 3.2 oz) 03/27/2019 11:35 A M EDT Height - - Body Mass Index 32.31 01/23/2019 8:48 AM EDT documented in this encounter Progress Notes * Israel Zuniga LPN - 03/27/2019 11:42 AM EDT GAD7 Over the last 2 weeks, how often have you been bothered by any of the following problems? Feeling nervous, anxious or on edge?: 3 - nearly every day Not being able to stop or control worrying?: 2 - more than half the days Worrying too much about different things?: 2 - more than half the days Trouble relaxing?: 2 - more than half the days Being so restless that it is hard to sit still?: 1 - several days Becoming easily annoyed or irritable?: 1 - several days Feeling afraid as if something awful might happen?: 1 - several days If you checked off any problems, how difficult Have these problems made it for you to do your work,take care of things at home, or get along with other people?: somewhat difficult Total Score (out of 21 points): 12 Interpretation: Moderate Anxiety * Mary Sheppard PA-C - 03/27/2019 11:35 AM EDT Subjective Patient roomed and information gathered by Israel Zuniga LPN. Chart Review: Medication List reviewed / reconciled 03/27/2019 11:39 AM by MARY SHEPPARD. Allergy List reviewed 03/27/2019 by MARY SHEPPARD. Problem List reviewed 03/27/2019 by MARY SHEPPARD. Immunization List reviewed 03/23/2018 6:18 AM by SARAHY HARVEY Chart Sections reviewed by provider: Tobacco Allergies Meds Problems Med Hx Surg Hx Fam Hx GAD7 Over the last 2 weeks, how often have you been bothered by any of the following problems? Feeling nervous, anxious or on edge?: 3 - nearly every day Not being able to stop or control worrying?: 2 - more than half the days Worrying too much about different things?: 2 - more than half the days Trouble relaxing?: 2 - more than half the days Being so restless that it is hard to sit still?: 1 - several days Becoming easily annoyed or irritable?: 1 - several days Feeling afraid as if something awful might happen?: 1 - several days If you checked off any problems, how difficult Have these problems made it for you to do your work,take care of things at home, or get along with other people?: somewhat difficult Total Score (out of 21 points): 12 Interpretation: Moderate Anxiety Health Maintenance reviewed 03/27/2019 11:38 AM by Israel Zuniga LPN. Yes Barriers to care: Patient does not have a Living Will or Advance Directives Progress Note He is accompanied today by No one Medication compliance: Yes Robert Alexis Jr. is a 53 y.o. male who presents with chief complaint of Anxiety who is here todayfor an office visit. Here for follow-up of anxiety -states that he feels that his anxiety has improved since starting Zoloft. States that his anxiety is worse in the mornings. States that he has some mild side effects inthe beginning (fatigue and loose stools) but that has since resolved. States that his sleep has improved overall since starting the medication States that he went on vacation in [facility] and he felt great while on vacation. Reviewed GAD7 score - moderate anxiety Also c/o low back pain for the past week - states that he has burning pain at the RIGHT low back, states that it feels stiff - has not been taking anything for the pain. Pain worse at night when trying to sleep ROS As above Future appointments already scheduled: Future Appointments Date Time Provider Department Center 04/25/2019 9:00 AM Kilo Wang MD NEURO NI Objective Vitals: 03/27/19 1135 BP: 128/82 BP Source: Right Arm Position: Sitting Cuff Size: Large Pulse: 84 Weight: 102 kg (225 lb 3.2 oz) Body mass index is 32.31 kg/m??. Physical Exam Nursing note and vitals reviewed. Musculoskeletal: Back: +slight TTP of RIGHT low back, no TTP of SI joint or midline. No active spasm. Neurologic: He is alert and oriented to person, place, and time. Psychiatric: He has a normal mood and affect. His behavior is normal. Judgment and thought content normal. Constitutional: He appears well-developed and well-nourished. Assessment and Plan 1. Anxiety - sertraline (ZOLOFT) 100 MG tablet; Take 1 tablet by mouth daily. Dispense: 30 tablet; Refill: 3 Plan to increase Zoloft dose to 100 mg daily Offered topical diclofenac (did not want oral medications) for low back issue - declined at this time Return in 6 weeks for recheck / med check, sooner if needed Robert verbalized understanding [...] unspecified documented in this encounter Care Teams Citrix Architect Relationship Specialty Start Date End Date Mary Sheppard PA-C [address] [address] PCP - General Family Practice 04/12/18 07/10/23 Kilo Wang MD Consulting Physician Neurology 08/30/16 12/01/21 Juan Haddad MD [address] [address] Otolaryngology 09/23/17 documented as of this encounter
--- OUTSIDE RECORDS SUMMARY | 2024-06-24 04:38 | XMS_ITS | Encounter Summary ---
Author Organization [facility] alth Address [address] [place] [address] Care Team Providers Care Telehealth Case Manager Name Role Phone Kilo Wang MD Unavailable [phone] Juan Haddad MD Unavailable [phone] Mary Shell PA-C Primary Care Provider Reason for Referral * Test/Procedure/Other (Routine) - Closed Specialty Diagnoses / Procedures Referred By Contac t Referred To Contact Diagnoses Mass of chest wall, left Procedures US EXTREMITY NON-JOINT LT Mary Shell PA-C [address] [place] [address] Phone: tel: fax: Referral ID Status Reason Start Date Expiration Date Visits Re quested Visits Authorized [id number] Closed 04/12/2018 04/12/2019 1 1 * Test/Procedure/Other (Routine) - Closed Specialty Diagnoses / Procedures Referred By Contac t Referred To Contact Radiology Diagnoses Neck pain Cervical radiculopathy Procedures XR CERVICAL SPINE 4-5 VIEWS Mary Shell PA-C [address] [place] [address] Phone: tel: fax: Referral ID Status Reason Start Date Expiration Date Visits Re quested Visits Authorized [id number] Closed 04/12/2018 04/12/2019 1 1 Reason for Visit * Reason Comments New Patient pt is most concerned with lymes disease, carpal tunnel surgery recently, would like to stop chewing tobacco Encounter Details Date Type Department Care Team (Late st Contact Info) Description 04/12/2018 5:00 PM EDT Office Visit [facility] [address], [address] [place] [address] Mary Shell PA-C [address] [place] [address] [place] [address] Fatigue, unspecified type (Primary Dx); Neck pain; Cervical radiculopathy; Mass of chest wall, left; Familial hypercholesterolemia ; Polyarthralgia; Myalgia; Rash and nonspecific skin eruption Discharge Disposition: Home/Self Care Social History Tobacco [...] Reading Time Taken Comments Blood Pressure 130/78 04/12/2018 4:59 PM EDT Pulse 82 04/12/2018 4:59 PM EDT Temperature - - Respiratory Rate - - Oxygen Saturation - - Inhaled Oxygen Concentration - - Weight 109 kg (241 lb) 04/12/2018 4:59 PM EDT Height - - Body Mass Index 33.61 04/04/2018 8:35 AM EDT documented in this encounter Patient Instructions * Patient Instructions* Varsha Lovett CMA - 04/12/2018 5:01 PM EDT You Can Quit Tobacco! We offer FREE programs to help make a quit plan that works for you! To register or for more information (physician referral not necessary to participate in programs): Call 0-670-JVG-INFO ([phone]) or visit www.[facility].org/classes Group Classes FREE [place] from Smoking?? 7-week program where adults are given the tools and support to become tobacco free. FREE Nicotine Replacement Therapy (NRT) as bhupinder funding allows. Meets weekly for 1.5 hours. Locations and times vary. Individual Counseling FREE one-on-one 30 minute weekly meetings with a counselor, by appointment only. Sessions are held at the [facility]. FREE Nicotine Replacement Therapy (NRT) available as bhupinder funding allows. Web-Based Video Chat FREE individual counseling from the comfort of your home through a web-based program. FREE NicotineReplacement Therapy (NRT) as bhupinder funding allows. For more information, call . You CAN do this! People who use medication (NRT, Chantix, Wellbutrin) and have support are more likely to quit. [employer] - [place] toll-free Quit Line - [place] Dept. of Health www.ContentWatch - www.ChannelMeter.Bill Me Later/Garden Matebaccofreelanc - SmokeFreeTXT[place] [address] Ready to make a change but not [...] Programs are offered free of charge through [facility] Tobacco Control Project (SEPATCP); a program of the [employer] [place] and funded through a bhupinder from the [facility], [facility] [address] Phone www.[facility].org Align Probiotic - daily probiotic to help restore bowel normal cain documented in this encounter Progress Notes * Matthew Del Toro MD - 04/19/2018 7:00 AM EDT Note reviewed; agree with plan * Mary Shell PA-C - 04/12/2018 5:10 PM EDT Subjective: Patient roomed and information gathered by Varsha Lovett CMA. Chart Review: Medication List reviewed / reconciled 04/16/2018 9:18 PM by MARY SHELL. Allergy List reviewed 04/16/2018 by MARY SHELL. Problem List reviewed 04/16/2018 by MARY SHELL. Immunization List reviewed 03/23/2018 6:18 AM by SARAHY HARVEY Chart Sections reviewed by provider: Allergies Meds Problems Health Maintenance reviewed 04/12/2018 5:10 PM by Varsha Lovett CMA. Yes Since the last visit here, was the patient seen by a specialist? Yes (carpal tunnel surgery) Barriers to care: Patient does not have a Living Will or Advance Directives Progress Note Carter Gomes Jr. is a 53 y.o. male who presents with chief complaint of New Patient (pt is most concerned with lymes disease, carpal tunnel surgery recently, would like to stop chewing tobacco) whois here today for an office visit. He is accompanied today by no one Medication compliance: No medications Here as a new patient and to discuss his multiple symptoms and extensive history with Lyme Disease diagnosis: States that he was diagnosed with Lyme Disease, however, only one Western blot was ever positive. Saw several specialists (ID x 2, Neurology) and started seeing [facility] Dr. Lane in [place] (Lyme Disease Specialist) - erythromycin 100 mg daily [facility] intergr[facility] medicine - he has stopped all medications/abx 3-4 weeks ago. Has spent $70,000 out of pocket with [facility] to treat his lyme Infectious disease at [facility] (Dr. Guzmán) Was taking several antibiotics - Rifampin, doxycycline, ceftin (3-4 antibiotics for 1.5 years) Also was taking ivermycin (dewormer) Dr. Mccloud sent him to [place] (infectious disease) - had blood work. Was positive once for Lyme (Western Blot) - has not heard from their office since having blood work in February Has discomfort in LEFT chest under ribs - states he can feel a lump. States that no one will listento him about the lump. States that he also has a rash on his chest - saw Dermatology and given cream, rash has improved with cream Lost 35 pounds - but has since put weight back on States that he still has fatigue States that he is presently not taking any medications or supplements C/o a throbbing and numbness on the RIGHT posterior/lateral aspect of his head/neck. Had EMG - B/L carpal tunnel was diagnosed. Had surgery to repair, doing well. Was also told he had neuropathy of nerves - saw Neurologist and was told he does not have neuropathy and to proceed with CTS repair Due to his abdominal discomfort in the past he had CT scan of abdomen/pelvis - incidentally found out he has one kidney (right). Congenital absent LEFT kidney. Also 8mm adrenal adenoma was found - no further workup was done with the adenoma by previous PCP (Adriana) He has seen GI specialist for his abdominal pain (LUQ) - had colonoscopy and EGD, all normal Still c/o numb area between shoulder blades and numb spot on head - states that it will just throb.Has occasional headache and vision issues when throbbing is significant. Has seen metallurgical specialist and ENT[facility] Field Coordinator - has B/L hearing devices. Will occasionally have pain/burning down arms (R>L) Has had screening colonoscopy - diverticulosis present, otherwise normal Review of Systems Constitutional: Positive for malaise/fatigue. Negative for chills and fever. HENT: Negative for congestion and sore throat. Eyes: Negative for blurred vision, double vision, pain and discharge. Respiratory: Negative for cough, shortness of breath and wheezing. Cardiovascular: Negative for chest pain, palpitations and leg swelling. Gastrointestinal: Positive for abdominal pain (LUQ). Negative for diarrhea, nausea and vomiting. Genitourinary: Negative for dysuria, frequency and urgency. Musculoskeletal: Positive for back pain (numbness bewteen shoulder blades) and neck pain. Negative for myalgias. Neurological: Positive for tingling (right side of head/neck). Negative for headaches and dizziness. Psychiatric: The patient is not nervous/anxious and does not have insomnia. Active Problems: He has Essential hypertension; Asthma; Tubular adenoma of colon. Repeat colonoscopy in APR 2019; Anxiety; Occipital neuralgia of right side; Bilateral carpal tunnel syndrome; Vasovagal syncope; Cubital tunnel syndrome on left; Congenital absence of left kidney; Lyme disease; Right carpal tunnel syndrome; and Left carpal tunnel syndrome on his problem list. Current Medications: No current outpatient prescriptions on file. Allergies: He has No Known Allergies. Past [...] Future Appointments Date Time Provider Department Center 04/21/2018 9:30 AM SP ULTRASOUND 1 SP US SUBURBAN OUT 04/21/2018 10:15 AM SP DIAG 1 SP Diag Img SUBURBAN OUT 05/02/2018 10:30 AM Kiarra Johnson PA-C [facility] [place] Objective: Vitals: Vitals: 04/12/18 1659 BP: 130/78 Pulse: 82 Weight: 109 kg (241 lb) Body mass index is 33.61 kg/m??. Physical Exam Nursing note and vitals reviewed. HENT: Head: Normocephalic and atraumatic. Nose: Nose normal. Mouth/Throat: Oropharynx is clear and moist. Ears: tympanic membranes normal Eyes: Pupils are equal, round, and reactive to light. EOM are normal. Neck: Normal range of motion. Neck supple. No thyromegaly present. No carotid bruits Cardiovascular: Normal rate, regular rhythm and normal heart sounds. Exam reveals no gallop and no friction rub. No murmur heard. Pulmonary/Chest: Effort normal and breath sounds normal. No pedal edema Abdominal: Soft. Bowel sounds are normal. He exhibits no distension. There is no splenomegaly or hepatomegaly. There is tenderness in the left upper quadrant. There is no rigidity, no rebound, no guarding, no CVA tenderness, no tenderness at McBurney's point and negative Mayorga's sign. +palpable mass (approx 2-3 cm), soft, mobile in left upper quadrant in mid- clavicular line under ribs Musculoskeletal: Cervical back: He exhibits decreased range of motion (discomfort at end ranges in all directions), tenderness (of B/L paraspinal muscles at level of C2-7 R>L, +TTP of B/L levator scapulae muscles)and bony tenderness (midline at level of C2-7). He exhibits no spasm. Lymphadenopathy: He has no cervical adenopathy. Neurologic: He is alert and oriented to person, place, and time. No cranial nerve deficit. Coordination normal. Skin: Skin is warm and dry. Psychiatric: He has a normal mood and affect. His behavior is normal. Judgment and thought content normal. Constitutional: He appears well-developed and well-nourished. Assessment & Plan: 1. Fatigue, unspecified type - COMPREHENSIVE METABOLIC PANEL; Future - CBC WITH DIFFERENTIAL - LAB; Future - FOREST (ANTI-NUCLEAR ANTIBODY); Future - ANTI-CCP; Future - C-REACTIVE PROTEIN; Future - RHEUMATOID FACTOR (RF), SERUM; Future - SEDIMENTATION RATE (ESR); Future - TSH-THYROID STIM HORMONE; Future 2. Neck pain - XR CERVICAL SPINE 4-5 VIEWS; Future - MR CERVICAL SPINE WO CONTRAST; Future 3. Cervical radiculopathy - XR CERVICAL SPINE 4-5 VIEWS; Future - MR CERVICAL SPINE WO CONTRAST; Future 4. Mass of chest wall, left - US EXTREMITY NON-JOINT LT; Future 5. Familial hypercholesterolemia - LIPID PANEL CHOLESTEROL FRACTIONATION (LCF); Future 6. Polyarthralgia - COMPREHENSIVE METABOLIC PANEL; Future - CBC WITH DIFFERENTIAL - LAB; Future - FOREST (ANTI-NUCLEAR ANTIBODY); Future - ANTI-CCP; Future - C-REACTIVE PROTEIN; Future - RHEUMATOID FACTOR (RF), SERUM; Future - SEDIMENTATION RATE (ESR); Future 7. Myalgia - COMPREHENSIVE METABOLIC PANEL; Future - CBC WITH DIFFERENTIAL - LAB; Future - FOREST (ANTI-NUCLEAR ANTIBODY); Future - ANTI-CCP; Future - C-REACTIVE PROTEIN; Future - RHEUMATOID FACTOR (RF), SERUM; Future - SEDIMENTATION RATE (ESR); Future 8. Rash and nonspecific skin eruption - FOREST (ANTI-NUCLEAR ANTIBODY); Future - ANTI-CCP; Future - C-REACTIVE PROTEIN; Future - RHEUMATOID FACTOR (RF), SERUM; Future - SEDIMENTATION RATE (ESR); Future Spent greater than half of this 50 minute visit in face to face counseling with the patient and/or care coordination. Discussed in depth that the Lyme disease diagnosis is off the table and other things need to be evaluated. Discussed that the providers in the office do not practice the chronic Lyme disease theory- Eliseo was agreeable and wants to explore other possible causes for his symptoms 1. Blood work per orders 2,3: Orders placed for XR and MRI of cervical spine 4. Discussed mass may be lipoma - order placed for US to further evaluate 5. Blood work per orders 6,7: Blood work per orders 8. Blood work per orders Will continue with cream from [employer] since it seems to be improving Will follow-up once blood work, US, XR and MRI results are received Discussed signs and symptoms that warrant further evaluation Follow-up will depend on results Carter verbalized understanding of above. Return for depends on testing. documented in this encounter Plan of Treatment Not on file documented as of this encounter Results * US EXTREMITY NON-JOINT LT (04/20/2018 4:54 PM EDT) Anatomical Region Laterality Modality Ultrasound 04/20/2018 5:01 PM EDT Narrative 04/20/2018 4:58 PM EDT ?Department of Radiology and Diagnostic Imaging ? [place] [address] ?US Extremity Non-Joint Left Pat.Name: ??MIREYA CARTER L JR. ? Pat.ID: ?[id number] ? St.Date: ?? 04/20/2018 ? Refer.: ??MARY SHELL ? Exam Time: 4:36:00 PM ? Study Type:US Extremity Non-Joint Lt ??Age: ??1965,53Y ?Sex: ? MALE ? Sonogrphr: MW1 ? Reason for Study:Mass of left chest wall FINDINGS: Sft Tissue: Ultrasound evaluation of the palpable area appears ?unremarkable. ??No focal abnormality noted. SUMMARY: Procedure: Sonographic evaluation of soft tissue left anterior chest wall. Technique: 2D images were obtained. Normal exam Dictating Workstation: [facility] Signed 04/20/2018 04:58 PM Dariel Lai MD Procedure Note Dariel Lai MD - 04/20/2018 Department of Radiology and [place] [address] US Extremity Non-Joint Left Pat.Name: CARTER GOMES JR. Pat.ID: [id number] .Date: 04/20/2018 Refer.MD: MARY SHELL Exam Time: 4:36:00 PM Study Type:US Extremity Non-Joint Lt Age: 12 1965,53Y Sex: MALE Sonogrphr: MW1 Reason for Study:Mass of left chest wall FINDINGS: Sft Tissue: Ultrasound evaluation of the palpable area appears unremarkable. No focal abnormality noted. SUMMARY: Procedure: Sonographic evaluation of soft tissue left anterior chest wall. Technique: 2D images were obtained. Normal exam Dictating Workstation: [facility] Signed 04/20/2018 04:58 PM Dariel Lai MD us Mary Shell PA-C [facility] US ORDERABLES Fi nal Result * XR CERVICAL SPINE 4-5 VIEWS (04/20/2018 [...] tissues are normal IMPRESSION: Degenerative changes Dictating Mary Shell PA-C [facility] DIAG IMAGING ORD ERABLES Final Result * TSH-THYROID STIM HORMONE (04/20/2018 6:49 AM EDT) Thyroid Stimulating Hormone 1.44 0.45 - 5.33 u[IU]/mL 04/20/2018 10:52 AM EDT [facility] 04/20/2018 6:49 AM EDT 04/20/2018 10:08 AM EDT Mary Shell PA-C CHEMISTRY ORDERABLES Fi nal Result [place] [address] [place] [address] * SEDIMENTATION RATE (ESR) (04/20/2018 6:49 AM EDT) Sedimentation Rate 10 0 - 19 mm/Hr 04/20/2018 10:40 AM EDT [facility] Comment: FOR OUTPATIENT SPECIMENS: Results may be falsely decreased due to delay in testing time. ??Optimal specimen is tested within six hours of collection. ??CRP is a more stable analyte and is the recommended alternative test. 04/20/2018 6:49 AM EDT 04/20/2018 10:06 AM EDT Mary Shell PA-C HEMATOLOGY ORDERABLES F inal Result Performing Organization Address [facility] Co de Phone Number [facility] [address] [place] [phone] * RHEUMATOID FACTOR (RF), SERUM (04/20/2018 6:49 AM EDT) RF Rheumatoid Fact <20 IU/mL 04/21/2018 11:54 AM EDT [facility] Comment: Reference range: <20 IU/mL Method: Nephelometry Published upper limits of normal vary widely among different sources. ??The presence of RF in patient serum should be considered as one criterion of rheumatoid disease, and not as a definitive diagnosis. Test performed by: ??[facility] ?[address], [address] ?[place] ??[address] ?Phone: ??[phone] ?[phone] ?Marquez Vance MD, Network Architect 04/20/2018 6:49 AM EDT 04/20/2018 10:08 AM EDT Mary Shell PA-C IMMUNOLOGY ORDERABLES F inal Result Performing Organization Address City/[facility]/ZIP Co de Phone Number [facility] [address] [place] [address] * C-REACTIVE PROTEIN (04/20/2018 6:49 AM EDT) Pathologist [facility] CRP C-Reactive Protein 1.3 0.0 - 8.0 mg/L 04/20/2018 10:43 AM EDT [facility] 04/20/2018 6:49 AM EDT 04/20/2018 10:08 AM EDT us Mary Shell PA-C CHEMISTRY ORDERABLES Fi nal Result [facility] [address] [place] [address] * ANTI-CCP (04/20/2018 6:49 AM EDT) Pathologist [facility] Anti-CCP NEG Negative 04/21/2018 1:00 PM EDT [facility] Comment: A definitive clinical diagnosis should not be based on the result of a single diagnostic method, but should only be made by the physician after all clinical and laboratory findings have been evaluated. ??Not all individuals with RA have detectable anti-CCP antibodies and elevated anti-CCP antibodies may be seen in individuals with no evidence of clinical disease. ??The use of anti-CCP antibody levels for monitoring the progression and/or remission of RA has not been established. ??The diagnostic value of anti-CCP antibodies has not been determined for juvenile arthritis. Heterophilic (anti animal) antibodies in human serum can interfere with immunoassays. ??This result should be interpreted taking the entire clinical setting into account. ??Should unexpected results be obtained for this test, please contact the laboratory within seven days of specimen collection for further testing to rule out heterophilic antibody interference. Test performed by: ??[facility] ?[address], [address] ?[place] ??[address] ?Phone: ??[phone] ?[phone] ?Marquez Vance MD, Network Architect 04/20/2018 6:49 AM EDT 04/20/2018 10:38 AM EDT Mary Shell PA-C IMMUNOLOGY ORDERABLES F inal Result Performing Organization Address [facility]/ZIP Co de Phone Number [facility] [address] [place] [address] * FOREST (ANTI-NUCLEAR ANTIBODY) (04/20/2018 6:49 AM EDT) FOREST Anti-Nuclear Antibody NEG Negative 04/21/2018 3:07 PM EDT [facility] Comment: Test performed by: ??[facility] ?[address], [address] ?[place] ??[address] ?Phone: ??[phone] ?[phone] ?Marquez Vance MD, Network Architect 04/20/2018 6:49 AM EDT 04/20/2018 10:08 AM EDT us Mary Shell PA-C IMMUNOLOGY ORDERABLES F inal Result [facility] [address] [place] [address] * CBC WITH DIFFERENTIAL - LAB (04/20/2018 6:49 AM EDT) WBC Count 5.5 4.8 - 10.8 10*3/uL 04/20/2018 10:15 AM EDT [facility] RBC Count 5.22 4.60 - 6.20 10*6/uL 04/20/2018 10:15 AM EDT [facility] Hgb 16.0 14.0 - 18.0 g/dL 04/20/2018 10:15 AM EDT [facility] Hct 45.6 42.0 - 52.0 % 04/20/2018 10:15 AM EDT [facility] MCV 87.4 80.0 - 100.0 fL 04/20/2018 10:15 AM EDT [facility] MCH 30.7 27.0 - 33.0 pg 04/20/2018 10:15 AM EDT [facility] MCHC 35.1 32.0 - 36.0 g/dL 04/20/2018 10:15 AM EDT [facility] Platelet Count 198 150 - 450 10*3/uL 04/20/2018 10:15 AM EDT [facility] RDW 13.1 12.2 - 14.6 % 04/20/2018 10:15 AM EDT [facility] Neutrophils 51.7 45.0 - 75.0 % 04/20/2018 10:15 AM EDT [facility] Lymphocytes 34.4 19.0 - 46.0 % 04/20/2018 10:15 AM EDT [facility] Monocytes 10.6 2.0 - 12.0 % 04/20/2018 10:15 AM EDT [facility] Eosinophils 3.1 0.0 - 4.0 % 04/20/2018 10:15 AM EDT [facility] Basophils 0.2 0.0 - 1.5 % 04/20/2018 10:15 AM EDT [facility] Immature Granulocytes 0.2 0 - 2 % 04/20/2018 10:15 AM EDT [facility] Neutrophils Absolute 2.83 2.20 - 8.00 10*3/uL 04/20/2018 10:15 AM EDT [facility] Lymphocytes Absolute 1.88 0.90 - 5.00 10*3/uL 04/20/2018 10:15 AM EDT [facility] Monocytes Absolute 0.58 0.20 - 0.80 10*3/uL 04/20/2018 10:15 AM EDT [facility] Eosinophils Absolute 0.17 0.00 - 0.40 10*3/uL 04/20/2018 10:15 AM EDT [facility] Basophils Absolute 0.01 0.00 - 0.40 10*3/uL 04/20/2018 10:15 AM EDT [facility] Immature Granulocyte Absolute 0.01 10*3/uL 04/20/2018 10:15 AM EDT [facility] 04/20/2018 6:49 AM EDT 04/20/2018 10:06 AM EDT us Mary Shell PA-C HEMATOLOGY ORDERABLES F inal Result [facility] [address] [place] [address] * (ABNORMAL) LIPID PANEL CHOLESTEROL FRACTIONATION (LCF) (04/20/2018 6:49 AM EDT) Cholesterol 202(H) 125 - 200 mg/dL 04/20/2018 10:43 AM EDT [facility] Triglyceride 75 60 - 150 mg/dL 04/20/2018 10:43 AM EDT [facility] High Density Lipoprotein Chol 40 40 - 90 mg/dL 04/20/2018 10:43 AM EDT [facility] Non-HDL Cholesterol 162 mg/dL 04/20 10:43 AM EDT [facility] Low Density Lipoprot Chol Calc 147(A) <130 mg/dL 04/20/2018 10:43 AM EDT [facility] Comment: Ages 25 - 150 Years [...] 15 mg/dL 04/20/20 18 10:43 AM EDT [facility] Chol/HDL Ratio 5.05 Ratio 04/20/2018 10:43 AM EDT [facility] LDL/HDL Ratio 3.68 Ratio 04/20/2018 10:43 AM EDT [facility] 04/20/2018 6:49 AM EDT 04/20/2018 10:08 AM EDT us Mary Shell PA-C CHEMISTRY ORDERABLES Fi nal Result [facility] [address] [place] [address] * (ABNORMAL) COMPREHENSIVE METABOLIC PANEL (04/20/2018 6:49 AM EDT) Blood Urea Nitrogen 20 8 - 22 mg/dL 04/20/2018 10:43 AM EDT [facility] Sodium 139 135 - 145 mmol/L 04/20/2018 10:[facility] Potassium 4.0 3.4 - 5.3 mmol/L 04/20/2018 10:43 AM T [facility] Chloride 102 98 - 107 mmol/L 04/20/2018 10:43 AM EDT [facility] CO2 Venous 28.1 21.0 - 31.0 mmol/L 04/20/2018 10:43 AM EDT [facility] Anion Gap 9 5 - 15 mmol/L 04/20/2018 10:43 AM EDT [facility] Creatinine 1.1 0.7 - 1.2 mg/dL 04/20/2018 10:[facility] Ratio 18 10 - 20 Ratio 04/20/2018 10:43 AM EDT [facility] Osmolality Calculation (serum) 280 275 - 300 mosm/kg H2O 04/20/2018 10:43 AM EDT [facility] Calcium 9.4 8.6 - 10.3 mg/dL 04/20/2018 10:43 AM EDT [facility] LABORATORY Protein Total Serum 6.6 5.6 - 7.9 g/dL 04/20/2018 10:43 AM EDT [facility] Albumin 4.2 3.5 - 4.9 g/dL 04/20/2018 10:43 AM EDT [facility] Comment:Result reflects use of Bromocresol Green Methodology. Bilirubin Total 1.3(H) 0.2 - 1.2 mg/dL 04/20/2018 10:43 AM EDT [facility] Alkaline Phosphatase 55 34 - 104 U/L 04/20/2018 10:43 AM EDT [facility] AST (SGOT) 14 13 - 40 U/L 04/20/2018 10:43 AM EDT [facility] ALT (SGPT) 16 7 - 52 U/L 04/20/2018 10:43 AM EDT [facility] A/G Ratio 1.8 1.0 - 2.0 Ratio 04/20/2018 10:43 AM EDT [facility] Globulin 2.4 gm/dL 04/20/2018 10:43 AM EDT [facility] GFR >60 mL/min/1.7 3 sqm 04/20/2018 10:43 AM EDT [facility] Comment: Notes for GFR: 1. ??Multiply result by 1.21 if patient is black/ ?Panamanian. 2. ??Chronic kidney disease: <60 mL/min/1.73 sq.m. ?Renal Failure: <15 mL/min/1.73 sq.m. Calcium, Corrected(Adj/Ca lc)Total 9.2 mg/dL 04/20/2018 10:43 AM EDT [facility] 04/20/2018 6:49 AM EDT 04/20/2018 10:08 AM EDT us Mary Shell PA-C CHEMISTRY ORDERABLES Fi nal Result [facility] [address] [address] documented in this encounter Visit Diagnoses Diagnosis Fatigue, unspecified type- Primary Neck pain Cervicalgia Cervical radiculopathy Brachial neuritis or radiculitis nos Mass of chest wall, left Familial hypercholesterolemia Pure hypercholesterolemia Polyarthralgia Pain in joint, multiple sites Myalgia Mylagia and myositis, unspecified Rash and nonspecific skin eruption Rash and other nonspecific skin eruption Mass of chest wall, left Neck pain Cervicalgia Cervical radiculopathy Brachial neuritis or radiculitis nos documented in this encounter Care Teams Telehealth Case Manager Relationship Specialty Start Date End Date Mary Shell PA-C [address] [address] PCP - General Family Practice 04/12/18 07/10/23 Kilo Wang MD Consulting Physician Neurology 08/30/16 12/01/21 Juan Haddad MD [address] [address] Otolaryngology 09/23/17 documented as of this encounter
--- OUTSIDE RECORDS SUMMARY | 2024-06-24 04:38 | XMS_ITS | Encounter Summary ---
Author Organization [facility] al[facility] Address [address] [place] [address] Care Team Providers Care Production Control Clerk Name Role Phone Sal Wright DO Primary Care Provider [phone] Kilo Wang MD Unavailable [phone] Juan aHddad MD Unavailable [phone] Encounter Details Date Type Department Care Team (Latest Contact Info) Description 03/16/2018 2:00 PM EDT - 03/16/2018 11:59 PM [place] [address] [place] [address] Discharge Disposition: Home/Self Care Social History Tobacco [...] Take 81 mg by mouth daily. 8 Cefuroxime Axetil (CEFTIN ORAL) Take by mouth. 01 8 Doxycycline Monohydrate (VIBRAMYCIN ORAL) Take by [...] 03/23/2018 8 documented as of this encounter Plan of Treatment Not on file documented as of this encounter Visit Diagnoses Not on filedocumented in this encounter Care Teams Production Control Clerk Relationship Specialty Start Date End Date Sal Wright DO PCP - General 08/28/12 04/11/18 Kilo Wang MD Consulting Physician Neurology 08/30/16 12/01/21 Juan Haddad MD [address] [place] [address] [address] Otolaryngology 09/23/17 documented as of this encounter
--- OUTSIDE RECORDS SUMMARY | 2024-06-24 04:38 | XMS_ITS | Encounter Summary ---
Author Organization [facility] alth Address [address] [facility] [place] [address] Care Team Providers Care Quality Tester Name Role Phone Kilo Wang MD Unavailable [phone] Juan Haddad MD Unavailable Mary Sheppard PA-C Primary Care Provider Reason for Visit * Reason Comments Medication Problem having issues with a ntidepressants, tremors Encounter Details Date Type Department Care Team (Late st Contact Info) Description 02/23/2019 10:00 AM EDT Office Visit [facility] [address] [facility], [address] [place] [id number] Mary Sheppard, [place] [address] [place] [address] [place] [address] Anxiety (Primary Dx) Discharge Disposition: Home/Self Care [...] Reading Time Taken Comments Blood Pressure 130/78 02/23/2019 9:50 AM EDT Pulse 88 02/23/2019 9:50 AM EDT Temperature - - Respiratory Rate - - Oxygen Saturation - - Inhaled Oxygen Concentration - - Weight 101 kg (223 lb) 02/23/2019 9:50 AM EDT Height - - Body Mass Index 32 01/23/2019 8:48 AM EDT documented in this encounter Progress Notes * Mary Sheppard PA-C - 02/23/2019 9:48 AM EDT Subjective Patient roomed and information gathered by Criss Alex LPN. Chart Review: Medication List reviewed / reconciled 02/23/2019 10:18 AM by MARY SHEPPARD. Allergy List reviewed 02/23/2019 by MARY SHEPPARD. Problem List reviewed 02/23/2019 by MARY SHEPPARD. Immunization List reviewed 03/23/2018 6:18 AM by SARAHY HARVEY Chart Sections reviewed by provider: Tobacco Allergies Meds Problems Med Hx Surg Hx Fam Hx Health Maintenance reviewed 02/23/2019 9:52 AM by Criss Alex LPN. Yes Barriers to care: Patient does not have a Living Will or Advance Directives Progress Note He is accompanied today by No one Medication compliance: Yes Robert Alexis Jr. is a 53 y.o. male who presents with chief complaint of Medication Problem (having issues with antidepressants, tremors) who is here today for an office visit. Here to discuss anxiety medication. Was started on Zoloft approximately 1.5 weeks ago - states thathe was taking the medication at bedtime and it really helped with his sleep andhe was noticing improvement in his anxiety. States that he felt pressure in his head during the day and thinks it is dueto the Zoloft. Earlier this week we switched to Lexapro - states that he took his first dose last night and he had tremors and had increased anxiety to the point of a panic attack. States that he wants to go back to the Zoloft. Denies fever/chills, N/V/D, neck pain, abdominal pain, headache, chest pain, shortness of breath. Continues to c/o the pain at his LEFT lower rib under his LEFT breast - states that the pain/discomfort was not present for awhile but returned within the past two days. Also states that he has noticed changes in his bowels, more loose stools. Decreased appetite and weight loss. Due for colonoscopyin April but states that when he returns from his trip he plans to call and schedule earlier. Denies any blood or mucus in his stool. Wt Readings from Last 3 Encounters: 02/23/19 101 kg (223 lb) 02/02/19 104 kg (228 lb 9.6 oz) 01/23/19 107 kg (235 lb) Leaving this evening to fly to [place] on a hunting trip x 10 days. Denies any issues with flying. ROS As above Future appointments already scheduled: Future Appointments Date Time Provider Department Center 04/25/2019 9:00 AM Kilo Wang MD NEURO NI Objective Vitals: 02/23/19 0950 BP: 130/78 BP Source: Right Arm Position: Sitting Cuff Size: Large Pulse: 88 Weight: 101 kg (223 lb) Body mass index is 32 kg/m??. Physical Exam Nursing note and vitals reviewed. Neurologic: He is alert and oriented to person, place, and time. Skin: Skin is warm and dry. Psychiatric: He has a normal mood and affect. His behavior is normal. Judgment and thought content normal. Constitutional: He appears well-developed and well-nourished. Assessment and Plan 1. Anxiety - sertraline (ZOLOFT) 50 MG tablet; Take 1 tablet by mouth daily. Dispense: 30 tablet; Refill: 0 Discontinue Lexapro Resume Zoloft Offered short prescription of Ativan to use as needed for panic attacks - declined at this time Return in 3-4 weeks for medication check, sooner if needed Robert [...] unspecified documented in this encounter Care Teams Quality Tester Relationship Specialty Start Date End Date Mary Sheppard PA-C [address] [place] [address] [place] [address] PCP - General Family Practice 04/12/18 07/10/23 Kilo Wang MD Consulting Physician Neurology 08/30/16 12/01/21 Juan Haddad MD [address] [place] [address] [place] [address] Otolaryngology 09/23/17 documented as of this encounter
--- OUTSIDE RECORDS SUMMARY | 2024-06-24 04:38 | XMS_ITS | Encounter Summary ---
Author Organization [facility] alth Address [address] [place] [address] Care Team Providers Care Appeals Coordinator Name Role Phone Kilo Wang MD Unavailable [phone] Juan Haddad MD Unavailable [phone] Dasha Sheppard-C Primary Care Provider Jason Mosquera MD Unavailable [phone] Reason for Visit * Reason Comments Adrenal Adenoma * New Consult/Second Opinion (Within 2 Weeks) - Closed Specialty Diagnoses / Procedures Referred By Contact Referred To Contact Endocrinology, Diabetes & Metabolism / Endocrinology Diagnoses Adenoma of left adrenal gland Jason Morrison CRNP [address] [facility] [address] [place] [address] Phone: tel: fax: Diabetes & Endocrinology [address] [place] [address] Phone: tel: fax: Referral ID Status Reason Start Date Expiration Date V isits Requested Visits Authorized [id number] Closed Co-managemen t Until Stable 11/30/2018 11/30/2019 1 1 Encounter Details Date Type Department Care Team (Late st Contact Info) Description 12/07/2018 3:30 PM EDT Office Visit Diabetes & Endocrinology [address] [place] [address] Jason Mosquera MD [address], [facility] [address] [place] [address] Adrenal adenoma, left (Primary Dx); Elevated DHEA (CMS/HCC) Discharge Disposition: Home/Self Care Social History [...] Sign Reading Time Taken Comments Blood Pressure 128/88 12/07/2018 3:25 PM EDT Pulse 100 12/07/2018 3:25 PM EDT Temperature - - Respiratory Rate - - Oxygen Saturation - - Inhaled Oxygen Concentration - - Weight 106 kg (234 lb 0.6 oz) 12/07/2018 3:25 PM EDT Height 179.7 cm (5' 10.75 ) 12/07/2018 3:25 PM E DT Body Mass Index 32.87 12/07/2018 3:25 PM EDT documented in this encounter Progress Notes * Jason Mosquera MD - 12/07/2018 3:43 PM EDT Jason Morrison, Thank you for asking me to see Robert Alexis JrNikolas in consultation regarding an adrenal adenoma. HISTORY OF PRESENT ILLNESS Robert Alexis Jr. is a 53 y.o. white male with a known adrenal adenoma initially found in 2016. Workup for pheo and subclinical Maria Eugenia's was negative. Over the last year, he has been having discomfort at the bottom of his LEFT rib cage. It causes discomfort. An ultrasound did not reveal a mass but it feels uncomfortable to him.There was a question if the adenoma was causing this. He also has some pulsating in his neck. He has been treated for high blood pressure with Amlodipine. The sensation in his LEFT abdomen is uncomfortable but not dramatically painful. He says he can feel a mass. Past Medical History: Diagnosis Date ??? Adenoma of left adrenal gland ??? Asthma ??? Lyme disease Past Surgical History: Procedure Laterality Date ??? ENDOSCOPY, ESOPHAGUS 04/22/2016 ??? HX CARPAL TUNNEL RELEASE Right 03/02/2018 Procedure: DECOMPRESSION NERVE MEDIAN CARPAL TUNNEL RELEASE: Carpal Tunnel Release; Surgeon: Devante Portillo DO; [facility]: [facility]; Laterality: Right; ??? HX CARPAL TUNNEL RELEASE Left 03/23/2018 Procedure: DECOMPRESSION NERVE MEDIAN CARPAL TUNNEL RELEASE: Carpal Tunnel Release; Surgeon: Devante Portillo DO; Location: [facility]; Laterality: Left; ??? HX COLONOSCOPY 04/22/2016 ??? HX CYST REMOVAL approx 2015 beneath eye-done at MD office w/ local anesthesia ??? HX DECOMPRESSION NERVE CUBITAL TUNNEL RELEASE Left 03/23/2018 Procedure: DECOMPRESSION NERVE CUBITAL TUNNEL RELEASE: Cubital Tunnel Release; Surgeon: Devante Portillo DO; Location: [facility]; Laterality: Left; Family History Problem Relation Age of Onset ??? Cancer Mother 67 colon No Known Allergies Current Outpatient Medications Medication Sig Dispense Refill ??? amLODIPine (NORVASC) 5 MG tablet Take 1 tablet by mouth daily. 90 tablet 3 No current facility-administered medications for this visit. Social History Tobacco Use ??? Smoking status: Never Smoker ??? Smokeless tobacco: Current User Types: Chew ??? Tobacco comment: chewing tobacco 2 cans/week Substance Use Topics ??? Alcohol use: No ??? Drug use: No PMH, PSH, FH, allergies, medications, and social history were reviewed in the EMR and updated as necessary. REVIEW OF SYSTEMS As above. Review of Systems Constitutional: Negative for fever and malaise/fatigue. Eyes: Positive for blurred vision. Negative for photophobia, pain and discharge. Swelling around the eyes. Respiratory: Negative for cough and shortness of breath. Cardiovascular: Negative for chest pain and palpitations. Gastrointestinal: Negative for abdominal pain, nausea and vomiting. Genitourinary: Positive for frequency and urgency. Musculoskeletal: Positive for joint pain. Negative for back pain and myalgias. Neurological: Negative for dizziness and headaches. Burning of the feet. Endo/Heme/Allergies: Does not bruise/bleed easily. Psychiatric/Behavioral: Negative for depression. PHYSICAL EXAM Vitals: 12/07/18 1525 BP: 128/88 Pulse: 100 Weight: 106 kg (234 lb 0.6 oz) Height: 1.797 m (5' 10.75 ) Body mass index is 32.87 kg/m??. I have reviewed the vitals and the nursing notes. Wt Readings from Last 4 Encounters: 12/07/18 106 kg (234 lb 0.6 oz) 11/30/18 108 kg (237 lb) 07/31/18 111 kg (245 lb) 07/26/18 110 kg (243 lb 6.4 oz) Physical Exam Constitutional: He is oriented to person, place, and time and well-developed, well-nourished, and in no distress. HENT: Head: Normocephalic and atraumatic. Eyes: Pupils are equal, round, and reactive to light. Neck: Neck supple. No thyroid mass present. Cardiovascular: Normal rate and regular rhythm. No murmur heard. Pulmonary/Chest: Effort normal. Abdominal: Soft. He exhibits no distension. There is no tenderness. Musculoskeletal: Normal range of motion. He exhibits no edema. I do not feel a mass in his LEFT rib cage although it is slightly prominent Neurological: He is alert and oriented to person, place, and time. He has normal reflexes. Skin: Skin is warm and dry. Psychiatric: Mood and affect normal. No visits with results within 3 Week(s) from this visit. Latest known visit with results is: Appointment on 08/03/2018 Component Date Value ??? Metanephrines, Frac, Fox* 08/03/2018 32 ??? Normetanephrine (Fract P* 08/03/2018 54 ??? Total Metanephrine(Fract* 08/03/2018 86 ??? cortisol AM (5-9 AM) 08/03/2018 0.81* CT Abdomen 04/27/18 A tiny, 8mm hypodense nodule is identified in the LEFT adrenal gland. The abnormality is stable in size dating back to 2015. ?? CT Chest 07/03/18 Upper abdomen: Solitary RIGHT kidney. 1.3 cm nodule in the LEFT adrenal gland has Hounsfield units consistent with an adenoma based on the prior unenhanced images from CT 04/27/2018 and is stable as far back as 03/14/2016. I reviewed the labs personally and with the patient. ASSESSMENT AND PLAN 1. Adrenal adenoma: I think this is a benign lesion based on imaging and the negative workup. Now that he has hypertension, I will also add an aldosterone level and plasma renin activity to rule out hyperaldosteronism. 2. Rib cage protrusion: I do not think this is being caused by the adrenal adenoma. I am not sure exactly what is causing this at this time. The ultrasound was reassuring. It has been stable and he should have routine surveillance for this. Follow-up pending the results of the above lab work. Note routed to Dasha Sheppard and Jason Morrison * Rafael Graham CMA - 12/07/2018 3:24 PM EDT Robert Taveras Reuben De La Cruz roomed by: Rfaael Graham. Robert Alexis JrNikolas is a 53 y.o. male who presents with Chief Complaint Patient presents with ??? Adrenal Adenoma Accompanied by no one. Medication reconciliation completed (RX and OTC): 12/07/2018 3:33 PM by RAFAEL GRAHAM Allergies reviewed: 12/07/2018 by RAFAEL GRAHAM Patient/family understand reason for medications: Yes Medication adherence and barriers: taking as prescribed Health Maintenance Topics/Immunizations Reviewed: NO Problem List last reviewed: 12/02/2018 by JASON MORRISON documented in this encounter Plan of Treatment Not on file documented as of this encounter Results * RENIN ACTIVITY, PLASMA (12/08/2018 7:28 AM EDT) [facility] Signature Renin Activity 0.62 0.25 - 5.82 ng/mL/h 12/11/2018 1:58 PM EDT [facility] Comment: This test was developed and its analytical performance characteristics have been determined by [facility] [place]. It has not been cleared or approved by the U.S. Food and Drug Administration. This assay has been validated pursuant to the CLIA regulations and is used for clinical purposes. Test Performed by [facility], [place] [facility], [address] [place], [place] Tab Bryan M.D., Ph.D., Director of Laboratories [phone], CLIA [id number] 12/08/2018 7:28 AM EDT 12/08/2018 10:58 AM EDT Jason Mosquera MD CHEMISTRY ORDERABLES Final R esult Performing Organization Address [facility] de Phone Number [facility] [address] [place] [address] * ALDOSTERONE (12/08/2018 7:28 AM EDT) Aldosterone 5 ng/dL 12/11/2018 2:05 PM EDT [facility] Comment: Unable to flag abnormal result[s], please refer ?to reference range[s] below: Adult Reference Ranges for Aldosterone, LC/MS/MS: ?Upright ??8:00 - 10:00 am ?< or = 28 ng/dL ?Upright ??4:00 - ??6:00 pm ?< or = 21 ng/dL ?Supine ?? 8:00 - 10:00 am ? 3 - 16 ng/dL This test was developed and its analytical performance characteristics have been determined by [place], [place]. It has not been cleared or approved by the U.S. Food and Drug Administration. This assay has been validated pursuant to the CLIA regulations and is used for clinical purposes. Test Performed by [facility], [place] [facility], [address] [place] [address] Tab Bryan M.D., Ph.D., Director of Laboratories [phone], CLIA [id number] 12/08/2018 7:28 AM EDT 12/08/2018 10:24 AM EDT Jason Mosquera MD CHEMISTRY ORDERABLES Final R esult Performing Organization Address [facility] de Phone Number [facility] [address] [facility] [address] [place] documented in this encounter Visit Diagnoses Diagnosis Adrenal adenoma, left- Primary Elevated DHEA Other specified disorders of adrenal glands documented in this encounter Care Teams Appeals Coordinator Relationship Specialty Start Date End Date Dasha Sheppard PA-C [address] [address] PCP - General Family Practice 04/12/18 07/10/23 Kilo Wang MD Consulting Physician Neurology 08/30/16 12/01/21 Juan Haddad MD [address] [address] Otolaryngology 09/23/17 Jason Mosquera MD [address], [place] [address] [place] [address] [employer] Endocrinology, Diabetes & Metabolism 12/07/18 12/10/18 documented as of this encounter
--- OUTSIDE RECORDS SUMMARY | 2024-06-24 04:38 | XMS_ITS | Encounter Summary ---
Author Organization [facility] alth Address [address] [facility] [place] [address] Care Team Providers Care Maintenance Person Name Role Phone Kilo Wang MD Unavailable [phone] Juan Haddad MD Unavailable Dasha Sheppard-C Primary Care Provider Encounter Details Date Type Department Care Team (Late st Contact Info) Description 01/31/2019 9:30 AM EDT Procedure visit NEUROLOGY [address] [place] [address] Kilo Wang MD [address] [place] [address] Polyneuropathy in other diseases classified elsewhere (CMS/HCC) (Primary Dx); Bilateral carpal tunnel syndrome Discharge Disposition: Home/Self Care [...] Procedure Name Priority Date/Time Associated Diagnosis Comments EMG Routine 01/31/2019 Polyneuropathy in other diseases classified elsewhere ([facility]) documented in this encounter Results * EMG (01/31/2019) Kilo Wang MD NEUROLOGY ORDERABLES Final Resu lt [facility] EEG/LAB DICTAPHONE documented in this encounter Visit Diagnoses Diagnosis Polyneuropathy in other diseases classified elsewhere (CMS/[facility])- Primary Polyneuropathy in other diseases classified elsewhere Bilateral carpal tunnel syndrome Carpal tunnel syndrome documented in this encounter Care Teams Maintenance Person Relationship Specialty Start Date End Date Dasha Sheppard PA-C [address] [address] PCP - General Family Practice 04/12/18 07/10/23 Kilo Wang MD Consulting Physician Neurology 08/30/16 12/01/21 Juan Haddad MD [address] [address] Otolaryngology 09/23/17 documented as of this encounter
--- OUTSIDE RECORDS SUMMARY | 2024-06-24 04:38 | XMS_ITS | Encounter Summary ---
Author Organization [facility] alth Address [address] [facility] [place] [address] Care Team Providers Care Winder Fixer Name Role Phone Kilo Wang MD Unavailable [phone] Juan Haddad MD Unavailable [phone] Mary Sheppard PA-C Primary Care Provider Reason for Referral * Test/Procedure/Other (Routine) - Closed Specialty Diagnoses / Procedures Referred By Contac t Referred To Contact Cardiology Diagnoses Dyspnea, unspecified type Procedures ECHOCARDIOGRAM Mary Sheppard PA-C [address] [place] [address] Phone: tel: fax: [address] [address] Phone: tel: fax: Referral ID Status Reason Start Date Expiration Date Visits Re quested Visits Authorized [id number] Closed 06/27/2018 06/27/2019 1 1 Reason for Visit * Test/Procedure/Other (Routine) - Closed Specialty Diagnoses / Procedures Referred By Contac t Referred To Contact Cardiology Diagnoses Dyspnea, unspecified type Procedures ECHOCARDIOGRAM Mary Sheppard PA-C [address] [facility] [place] [address] Phone: tel: fax: [place] [address] [place] [address] Phone: tel: fax: Referral ID Status Reason Start Date Expiration Date Visits Re quested Visits Authorized [id number] Closed 06/27/2018 06/27/2019 1 1 Encounter Details Date Type Department Care Team (Latest Contact Info) Description 07/18/2018 7:41 AM EST - 07/18/2018 11:59 PM EST Hospital Encounter [facility] [address] [place] [id number] Mary Sheppard PA-C [address] [place] [address] Dyspnea, unspecified Discharge Disposition: Home/Self Care Social History [...] this encounter Medications at Time of Discharge predniSONE (DELTASONE) 20 MG tabletIndications :Cervical radiculopathy,Occ ipital neuralgia of right side Take 3 tablets by mouth x 3 days, 2 tablets by mouth x 3 days, 1 tablet by mouth x 4 days. 19 tablet 05/29/2018 07/30/2018 documented as of this encounter Plan of Treatment Not on file documented as of this encounter Procedures Procedure Name Priority Date/Time Associated Diagnosis Comments ECHOCARDIOGRAM Routine 07/18/2018 9:06 AM EST Dyspnea, unspecified type documented in this encounter Results * ECHOCARDIOGRAM (07/18/2018 9:06 AM EST) EJECTION FRACTION (%) 60 % [facility] Anatomical Region Laterality Modality Chest ECHO 07/18/2018 8:13 AM EST Narrative 07/18/2018 4:30 PM EST ?Non-invasive Cardiology [address] [facility], [place] [address] ?Echocardiography Services ? Adult Echo Report Name: CARTER GOMES JR. ?Study Date: 07/18/2018 08:13 AM ? BP: 132/89 mmHg ?Patient Location: *[facility] ?HR: 83 : 1965 ? Gender: Male ?Height: 72 in Age: 53 yrs ? Weight: 235 lb ?Ordering Physician: MARY SHEPPARD ?Head Char Filter Tank Tender: Mark Rubalcava RDCS Reason For Study: dyspnea, [...] alternative imaging. STUDY DETAILS: ?? Complete Echocardiogram ([id number]). FINDINGS: LEFT VENTRICLE: ?? Left ventricular size [...] Note Dominguez Casas MD - 07/18/2018 Non-invasiveCardiology [address] [place] [address], [place] [address] EchocardiographyServices Adult Echo Report Name: CARTER GOMES JR. Nitin Study Date: 07/18/2018 08:13 AMBP: 132/89 mmHg Patient [facility] OPHR: 83 : 1965 Gender: MaleHeight: 72 in Age: 53 yrsWeight: 235 lb Ordering Physician: MARY SHEPPARD Head Char Filter Tank Tender: Mark Rubalcava RDCS Reason For Study: dyspnea, [...] larger-consider alternative imaging. STUDY DETAILS: Complete Echocardiogram ([id number]). FINDINGS: LEFT VENTRICLE: Left ventricular size is [...] P.7 mmHg MV E/A: 0.83 us Mary Sheppard PA-C RIS ECHO ORDERABLES Final Result documented in this encounter Visit Diagnoses Diagnosis Dyspnea, unspecified type documented in this encounter Care Teams Winder Fixer Relationship Specialty Start Date End Date Mary Sheppard PA-C [address] [place] [address] [place] [address] PCP - General Family Practice 04/12/18 07/10/23 Kilo Wang MD Consulting Physician Neurology 08/30/16 12/01/21 Juan Haddad MD [address] [place] [address] Otolaryngology 09/23/17 documented as of this encounter
--- OUTSIDE RECORDS SUMMARY | 2024-06-24 04:39 | XMS_ITS | Encounter Summary ---
Author Organization [facility] Address [address] [place] [address] Care Team Providers Care Supervisor Wheel Shop Name Role Phone Sal Wright DO Primary Care Provider [phone] Reason for Visit * Reason Onset Date Comments Prior Authorization 03/14/2016 Encounter Details Date Type Department Care Team (Late st Contact Info) Description 03/14/2016 Telephone [facility] [address] [phone] Yadiel Brunner PA-Taisha [address] [place] [phone] Prior Authorization Social History Tobacco Use Types Packs/Day Years Used Date Smoking Tobacco: Never Smokeless Tobacco: Current Chew Comments:chew tobacco 1 can a week Alcohol Use Standard Drinks/Week Comments No 0 (1 standard drink = 0.6 oz pur e alcohol) Sex and Gender Information Value Date Recorded Sex Assigned at Not on file Legal Sex Male 11:25 PM EST Gender Identity Male 11/21/2019 7:11 PM EDT Sexual Orientation Not on file documented as of this encounter Miscellaneous Notes * Telephone Encounter - Skylar Faria CMA - 03/15/2016 10:43 AM EDT Authorization was approved #[id number] effective until 05/13/2016.called paige from [facility] and left a message with authorization #. * Telephone Encounter - Paula [place] CMA - 03/14/2016 1:38 PM EDT UC please process prior auth for CT scan done on 03/14/16. documented in this encounter Plan of Treatment Not on file documented as of this encounter Visit Diagnoses Not on filedocumented in this encounter Care Teams Supervisor Wheel Shop Relationship Specialty Start Date End Date Sal Wright DO PCP - General 08/28/12 04/11/18 documented as of this encounter
--- OUTSIDE RECORDS SUMMARY | 2024-06-24 04:39 | XMS_ITS | Encounter Summary ---
Author Organization [facility] alth Address [address] [place] [address] Care Team Providers Care Plant Protection Superintendent Name Role Phone Sal Wright DO Primary Care Provider [phone] Reason for Visit * Reason Comments Colonoscopy Screening EGD * Test/Procedure/Other (Routine) - Closed Specialty Diagnoses / Procedures Referred By Donald t Referred To Contact Gastroenterology Diagnoses Generalized abdominal pain Weight loss Change in bowel habit Family history of colon cancer Procedures COLONOSCOPY, DIAGNOSTIC EGD Delfino Becerril MD Phone: tel: fax: Referral ID Status Reason Start Date Expiration Date Visits Re quested Visits Authorized [id number] Closed 04/22/2016 06/19/2016 1 1 Encounter Details Date Type Department Care Team ([facility] st Contact Info) Description 04/22/2016 2:00 PM EDT Procedure visit [facility] [address] [facility] [address] [place] [id number] Delfino Becerril MD [address] [facility] [address] [place] [address] Generalized abdominal pain; Weight loss; Change in bowel habit; Family history of colon cancer Discharge Disposition: Home/Self Care Social History Tobacco [...] Name Priority Date/Time Associated Diagnosis Comments COLONOSCOPY, DIAGNOSTIC Routine 04/22/2016 4:40 PM EDT Generalized abdominal pain Weight loss Change in bowel habit Family history of colon cancer EGD Routine 04/22/2016 4:40 PM EDT Generalized abdominal pain Weight loss documented in this encounter Results * EGD (04/22/2016 4:40 PM EDT) PROCEDURE Procedure: Upper GI endoscopy [facility] INDICATIONS Indications: Epigastric abdominal pain, Abdominal pain in the right [facility] INDICATIONS lower quadrant, Abdominal pain in the left lower [facility] INDICATIONS quadrant [facility] PERFORMING PROVIDER Providers: Delfino Becerril [facility] MEDICATION Medicines: Monitored Anesthesia Care [facility] COMPLICATION Complications: No immediate complications. [facility] WSCOPETIME Scope Withdrawal Time [facility] 04/22/2016 4:40 PM EDT Narrative [facility] - 04/22/2016 4:40 PM EDT Impression: ? - Normal esophagus. ?- Normal examined duodenum. ?- A single gastric polyp. Resected and retrieved. Recommendation: ? - Patient has a contact number available for ?emergencies. The signs and symptoms of potential ?delayed complications were discussed with the patient. ?Return to normal activities tomorrow. Written discharge ?instructions were provided to the patient. ?- Low fat diet. ?- Continue present medications. ?- Await pathology results. ?- Repeat the upper endoscopy PRN for surveillance based ?on pathology results. ?- Return to GI office in 2 months. ?- No cause of abdominal pain seen with this exam. A ?possible cause is irritability/dyspepsia after ?infectious illness. I would recommend no further ?tasting at this time, diet changes with avoiding fatty ?foods, high sugar foods and carbonated beverages. Procedure: ?Pre-Anesthesia Assessment: ?- Sedation was administered [...] in satisfactory condition to undergo the ?procedure. ?After obtaining informed consent, the endoscope was ?passed under direct vision. Throughout the procedure, ?the patient's blood pressure, pulse, and oxygen ?saturations were monitored continuously. The ?Colonoscope was introduced through the mouth, and ?advanced to the fourth part of duodenum. The upper GI ?endoscopy was accomplished without difficulty. The ?patient tolerated the procedure well. Findings: ? The esophagus was normal. ? The examined duodenum was normal. ? A single 7 mm pedunculated polyp with no bleeding and no stigmata of ? recent bleeding was found in the gastric fundus. The polyp was removed ? with a cold snare. Resection and retrieval were complete. Note Initiated On: 04/22/2016 2:21 PM us Delfino Becerril MD GI PROCEDURE ORDERABLES Fin al Result Performing Organization Address City/State/[facility] Co de Phone Number [facility] [address] [place] [address] * COLONOSCOPY, DIAGNOSTIC (04/22/2016 4:40 PM EDT) PROCEDURE Procedure: Colonoscopy [facility] INDICATIONS Indications: Screening for colorectal malignant neoplasm, Incidental [facility] INDICATIONS constipation noted [facility] PERFORMING PROVIDER Providers: Delfino Becerril [facility] MEDICATION Medicines: Monitored Anesthesia Care [facility] COMPLICATION Complications: No immediate complications. [facility] WSCOPETIME Scope Withdrawal Time 0 hours 17 minutes 51 seconds [facility] 04/22/2016 4:40 PM EDT Narrative [facility] - 04/22/2016 4:40 PM EDT Impression: ? - Five 4 to 18 mm polyps in the transverse colon, in ?the ascending colon and in the cecum. Resected and ?retrieved. ?- Severe diverticulosis in the entire examined colon. ?There was narrowing of the colon in association with ?the diverticular opening. Day-diverticular erythema ?was seen. There was evidence of an impacted ?diverticulum. There was no evidence of diverticular ?bleeding. ?- Non-bleeding internal hemorrhoids. Recommendation: ? - No cause of abdominal pain seen on this exam. See EGD ?report. It is possible that divertuicular disease ?contributes to pain but no diverticulitis seen today or ?on recent CT, ?- Patient has a contact number available for ?emergencies. The signs and symptoms of potential ?delayed complications were discussed with the patient. ?Return to normal activities tomorrow. Written discharge ?instructions were provided to the patient. ?- High fiber diet. ?- Continue present medications. ?- Await pathology results. ?- Repeat colonoscopy in 3 years for surveillance based ?on pathology results. ?- Return to GI office in 2 months. ?- Return to primary care physician as [...] in satisfactory condition to undergo the ?procedure. ?After I obtained informed consent, the scope was passed ?under direct vision. Throughout the procedure, the ?patient's blood pressure, pulse, and oxygen saturations ?were monitored continuously. The Colonoscope was ?introduced through the anus and advanced to the ?terminal ileum, with identification of the appendiceal ?orifice and IC valve. The colonoscopy was performed ?without difficulty. The patient tolerated the procedure ?well. The quality of the bowel preparation was ?adequate. The ileocecal valve, appendiceal orifice, and ?rectum were photographed. Findings: ? The perianal and digital rectal examinations were normal. ? Five flat, pedunculated, and sessile polyps were found in the transverse ? colon, in the ascending colon and in the cecum. The polyps were 4 to 18 ? mm in size. The 4 largest polyps were removed with a saline ? injection-lift on one polyp in cecum technique and all using a hot ? snare. Resection and retrieval were complete. The smaller transverse ? polyp was removed with a cold snare. Resection and retrieval were ? complete. ? Many small and large-mouthed diverticula were found in the entire colon. ? In the sigmoid colon there was narrowing of the colon in association ? with the diverticular opening and day-diverticular erythema. There was ? evidence of an impacted diverticulum. There was no evidence of ? diverticular bleeding. ? Non-bleeding internal hemorrhoids were found during retroflexion. The ? hemorrhoids were mild. Note Initiated On: 04/22/2016 2:20 PM us Delfino Becerril MD GI PROCEDURE ORDERABLES Fin al Result Performing Organization Address City/State/[facility] Co de Phone Number [facility] [address] [place] [address] documented in this encounter Visit Diagnoses Diagnosis Generalized abdominal pain Abdominal pain, generalized Weight loss Loss of weight Change in bowel habit Family history of colon cancer Family history of malignant neoplasm of gastrointestinal tract documented in this encounter Care Teams Plant Protection Superintendent Relationship Specialty Start Date End Date Sal Wright DO PCP - General 08/28/12 04/11/18 documented as of this encounter
--- OUTSIDE RECORDS SUMMARY | 2024-06-24 04:39 | XMS_ITS | Encounter Summary ---
Author Organization [facility] alth Address [address] [place] [address] Care Team Providers Care Permit Specialist Name Role Phone Sal Wright DO Primary Care Provider [phone] Reason for Visit * Reason Comments Abdominal Pain Encounter Details Date Type Department Care Team ([facility] st Contact Info) Description 04/07/2016 11:26 PM EDT - 04/08/2016 1:42 AM EDT Emergency [facility] Emergency Dept [address] [facility] [place] [phone] Mac Chandra MD [address] [facility] [address] [place] [address] Acute gastritis without bleeding Discharge Disposition: Home/Self Care Social [...] Sign Reading Time Taken Comments Blood Pressure 120/63 04/08/2016 1:00 AM EDT Pulse 65 04/08/2016 1:00 AM EDT Temperature 36.6 ??C (97.8 ??F) 04/07/2016 9:20 PM ED T Respiratory Rate 18 04/08/2016 1:00 AM EDT Oxygen Saturation 95% 04/08/2016 1:00 AM EDT Inhaled Oxygen Concentration - - Weight - - Height - - Body Mass Index - - documented in this encounter Discharge Instructions * Discharge Instructions* Mac Chandra MD - 04/08/2016 1:13 AM EDT Images from the original note were not included. Abdominal Pain: Care Instructions Your Care Instructions Abdominal pain has many possible causes. Some aren't serious and get better on their own in a few days. Others need more testing and treatment. If your pain continues or gets worse, you need to be rechecked and may need more tests to find out what is wrong. You may need surgery to correct the problem. Don't ignore new symptoms, such as fever, nausea and vomiting, urination problems, pain that gets worse, and dizziness. These may be signs of a more serious problem. Your doctor may have recommended a follow-up visit in the next 8 to 12 hours. If you are not getting better, you may need more tests or treatment. The doctor has checked you carefully, but problems can develop later. If you notice any problems ornew symptoms, get medical treatment right away. Follow-up care is a zelaya part of your treatment and safety. Be sure to make and go to all appointments, and call your doctor if you are having problems. It's also a good idea to know your test resultsand keep a list of the medicines you take. How can you care for yourself at home? ?? Rest until you feel better. ?? To prevent dehydration, drink plenty of fluids, enough so that your urine is light yellow or clear like water. Choose water and other caffeine-free clear liquids until you feel better. If you havekidney, heart, or liver disease and have to limit fluids, talk with your doctor before you increasethe amount of fluids you drink. ?? If your stomach is upset, eat mild foods, such as rice, dry toast or crackers, bananas, and applesauce. Try eating several small meals instead of two or three large ones. ?? Wait until 48 hours after all symptoms have gone away before you have spicy foods, alcohol, and drinks that contain caffeine. ?? Do not eat foods that are high in fat. ?? Avoid anti-inflammatory medicines such as aspirin, ibuprofen (Advil, Motrin), and naproxen (Aleve). These can cause stomach upset. Talk to your doctor if you take daily aspirin for another health problem. When should you call for help? Call 911 anytime you think you may need emergency care. For example, call if: ?? You passed out (lost consciousness). ?? You pass maroon or very bloody stools. ?? You vomit blood or what looks like coffee grounds. ?? You have new, severe belly pain. Call your doctor now or seek immediate medical care if: ?? Your pain gets worse, especially if it becomes focused in one area of your belly. ?? You have a new or higher fever. ?? Your stools are black and look like tar, or they have streaks of blood. ?? You have unexpected vaginal bleeding. ?? You have symptoms of a urinary tract infection. These may include: ?? Pain when you urinate. ?? Urinating more often than usual. ?? Blood in your urine. ?? You are dizzy or lightheaded, or you feel like you may faint. Watch closely for changes in your health, and be sure to contact your doctor if: ?? You are not getting better after 1 day (24 hours). Where can you learn more? Go to www.[employer].BetKlub/lgh. Enter E907 in the search box to learn more about Abdominal Pain: Care Instructions. Current as of: November 14, 2015 Content Version: 11.0 ?? 7202-6709 [employer]. Care instructions adapted under license by your healthcare professional. If you have questions about a medical condition or this instruction, always ask your healthcare professional. [employer] disclaims any warranty or liability for your use of this information. Gastritis: Care Instructions Your Care Instructions Gastritis is a sore and upset stomach. It happens when something irritates the stomach lining. Manythings can cause it. These include an infection such as the flu or something you ate or drank. Medicines or a sore on the lining of the stomach (ulcer) also can cause it. Your belly may bloat and ache. You may belch, vomit, and feel sick to your stomach. You should be able to relieve the problem by taking medicine. And it may help to change your diet. If gastritis lasts, your doctor may prescribe medicine. Follow-up care is a zelaya part of your treatment and safety. Be sure to make and go to all appointments, and call your doctor if you are having problems. It's also a good idea to know your test resultsand keep a list of the medicines you take. How can you care for yourself at home? ?? If your doctor prescribed antibiotics, take them as directed. Do not stop taking them just because you feel better. You need to take the full course of antibiotics. ?? Be safe with medicines. If your doctor prescribed medicine to decrease stomach acid, take it as directed. Call your doctor if you think you are having a problem with your medicine. ?? Do not take any other medicine, including [id number] pain relievers, without talking to your doctor first. ?? If your doctor recommends ilzr-baj-ulxvtim medicine to reduce stomach acid, such as Pepcid AC, Prilosec, Tagamet HB, or Zantac 75, follow the directions on the label. ?? Drink plenty of fluids (enough so that your urine is light yellow or clear like water) to prevent dehydration. Choose water and other caffeine-free clear liquids. If you have kidney, heart, or liver disease and have to limit fluids, talk with your doctor before you increase the amount of fluids you drink. ?? Limit how much alcohol you drink. ?? Avoid coffee, tea, cola drinks, chocolate, and other foods with caffeine. They increase stomach acid. When should you call for help? Call 911 anytime you think you may need emergency care. For example, call if: ?? You vomit blood or what looks like coffee grounds. ?? You pass maroon or very bloody stools. Call your doctor now or seek immediate medical care if: ?? You start breathing fast and have not produced urine in the last 8 hours. ?? You cannot keep fluids down. Watch closely for changes in your health, and be sure to contact your doctor if: ?? You do not get better as expected. Where can you learn more? Go to www.[employer].net/lgh. Enter Z536 in the search box to learn more about Gastritis: Care Instructions. Current as of: May 09, 2015 Content Version: 11.0 ?? [id number] [employer]. Care instructions adapted under license by your healthcare professional. If you have questions about a medical condition or this instruction, always ask your healthcare professional. [employer] disclaims any warranty or liability for your use of this information. documented in this encounter ED Notes * Mac Chandra MD - 04/08/2016 1:42 AM EDT HISTORY: Chief Complaint Patient presents with ??? Abdominal Pain HPI 51-year-old gentleman presents to the emergency department with approximately 1 month of abdominal pain. He describes a pain that initially seemed to be periumbilical but over the past few weeks has been in the epigastrium and left upper quadrant area. He describes the discomfort as more of a bloating sensation associated with a lot of belching and sometimes passing flatus. The pain does not radiate. He denies nausea or vomiting or diarrhea. Sometimes the discomfort and reduces his appetite. Hewas started on omeprazole by his family doctor 2 days ago without notable improvement. He had a CATscan done when this first started a few weeks ago. He denies UTI symptoms, leg pain or swelling, chest pain or shortness of breath or anginal symptoms. History reviewed. No pertinent past medical history. History reviewed. No pertinent past surgical history. History reviewed. No pertinent family history. Social History Substance Use Topics ??? Smoking status: Never Smoker ??? Smokeless tobacco: Current User Types: Chew Comment: chew tobacco 1 can a week ??? Alcohol use No Problem List Diagnosis ??? Asthma ??? BMI 35-39.9 ??? HTN (hypertension) Review of Systems PHYSICAL EXAM: Vital Signs Temperature 97.8 ??F (36.6 ??C) (04/07/160) Pulse/Heart Rate 65 (04/08/1699) Respiration 18 (04/08/1699) BP 120/63 (04/08/1699) MAP 86 MM HG (04/08/1699) SpO2 95 % (04/08/1699) O2 Device room air (04/08/1699) O2 Therapy Flow Physical Exam Available past medical, past social, family history have been reviewed Review of systems: All other systems negative PHYSICAL EXAM CONSTITUTIONAL: This is an awake, alert, age-appropriate person in no distress. HEAD: There is no acute abnormality identified on exam. ENT: Mucous membranes are moist. External ear exam is unremarkable. External nose exam is normal. EYES: Conjunctivae and sclera are unremarkable with no appreciable abnormalities otherwise. NECK: Trachea is midline, no obvious masses are present. CARDIOVASCULAR: Normal rate, regular rhythm, normal heart sounds and intact distal pulses. PULMONARY/CHEST: There is a non-labored respiratory pattern. The lungs are clear and normal to auscultation. ABDOMINAL: Abdomen is non-distended. There is minimal epigastric tenderness elicited on palpation. Otherwise benign abdominal exam. GENITOURINARY: Exam deferred. MUSCULOSKELETAL: The extremities are adequately perfused with normal range of motion and no swelling or palpable abnormality. BACK: There are no obvious abnormalities on gross inspection. There is no CVA tenderness. NEUROLOGICAL: The patient is awake and moving all extremities with no difficulty. Cranial nerves are grossly normal as tested. Strength and sensation are intact. SKIN: Skin is warm and dry. PSYCHIATRIC: The patient is awake and appropriate with a normal affect. EKG RHYTHM: Sinus rhythm EKG INTERPRETATION: No acute abnormalities noted OXYGEN SATURATION INTERPRETATION: 95% on room air, normal LAB INTERPRETATION: Laboratory studies have been reviewed and acted upon as needed RADIOLOGY INTERPRETATION: ED COURSE: Procedures MDM Considering the patient's symptoms, physical exam findings, test results and recent CAT scan my clinical impression is that the patient is probably suffering from gastritis. However, given the duration of his symptoms I think it would be reasonable for him to follow up with his family doctor to consider GI referral for endoscopy. There is no indication of a surgical or inflammatory process. Thereis no indication of cardiopulmonary disease. I recommended a short course of Zantac or Pepcid giving the PPI time to take clinical effect. The patients condition at the time of Disposition is {Discharge Condition: Improved. Mac Chandra MD 04/08/167 Mac Chandra MD 04/08/16 0337 * Elisabeth Tafoya RN - 04/08/2016 1:00 AM EDT Pt resting in bed. Side rails up X2, call longoria in reach. Pt updated on plan of care. * Elisabeth Tafoya RN - 04/07/2016 11:26 PM EDT Agree with triage note. Pt ambulated to room without difficulty. Pt reports intermittent pain on the upper left quadrant, and lower right quadrant. Pt denies nausea and vomiting. Pt reports increasedbelching, and decreased bowel movements. Pt placed on all monitors. Side rails up X2, call longoria in reach. Pt's at bedside. * Ebony Robins RN - 04/07/2016 9:19 PM EDT Pt states left sided abdominal pain. Pt states he is only urinating a little bit and can not move his bowels. Pt states he had similar issues three weeks ago and has had f/u but no results yet. documented in this encounter Plan of Treatment Not on file documented as of this encounter Procedures Procedure Name Priority Date/Time Associated Diagnosis Comments EKG 12-LEAD STAT 04/08/2016 12:10 AM EDT CBC WITH DIFFERENTIAL - LAB STAT 04/07/2016 9:51 PM EDT LIPASE, SERUM STAT 04/07/2016 9:51 PM EDT COMPREHENSIVE METABOLIC PANEL STAT 04/07/2016 9:51 PM EDT URINALYSIS POC STAT 04/07/2016 9:24 PM EDT documented in this encounter Results * EKG 12-Lead (04/08/2016 12:10 AM EDT) Ventricular Rate 87 BPM [facility] Atrial Rate 87 BPM [facility] P-R Interval 176 ms [facility] QRS Duration 80 ms [facility] Q-T Interval 382 ms [facility]-EKG QTC Calculation 459 ms [facility]-EKG Calculated P [place] 32 degrees [facility] Calculated R [place] 41 degrees [facility]-EKG Calculated T [place] 0 degrees [facility]-EKG 04/08/2016 12:1 0 AM EDT 04/08/2016 8:53 PM EDT Narrative [facility] - 04/08/2016 8:53 PM EDT Normal sinus rhythm with sinus arrhythmia Possible Left atrial enlargement Borderline ECG No previous ECGs available Confirmed by William Alejandra DO ([id number]) on 04/08/2016 8:53:05 PM Mac Chandra MD ECG ORDERABLES Final Result Performing Organization Address [facility] de Phone Number [facility]-EKG [address] [place] [address] * Lipase, Serum (04/07/2016 9:51 PM EDT) Pathologist [facility] Lipase 22 11 - 82 U/L 04/07/2016 11:11 PM EDT [facility] 04/07/2016 9:51 PM EDT 04/07/2016 10:23 PM EDT us Mac Chandra MD CHEMISTRY ORDERABLES Final Resul t Performing Organization Address [facility] de Phone Number [facility] [address] [place] [phone] * (ABNORMAL) Comprehensive Metabolic Panel (CMP) (04/07/2016 9:51 PM EDT) Pathologist [facility] Glucose (serum) 100 65 - 100 mg/dL 04/07/2016 10:55 PM EDT [facility] Blood Urea Nitrogen 16 8 - 22 mg/dL 04/07/2016 10:55 PM EDT [facility] Sodium 135 135 - 145 mmol/L 04/07/2016 10:55 PM EDT [facility] Potassium 3.7 3.4 - 5.3 mmol/L 04/07/2016 10:55 PM EDT [facility] Chloride 102 98 - 107 mmol/L 04/07/2016 10:55 PM EDT [facility] CO2 Venous 27.0 21.0 - 31.0 mmol/L 04/07/2016 10:55 PM EDT [facility] Anion Gap 6 5 - 15 mmol/L 04/07/2016 10:55 PM EDT [facility] Creatinine 1.1 0.7 - 1.2 mg/dL 04/07/2016 10:55 PM EDT [facility] BUN/Creatinine Ratio 15 10 - 20 Ratio 04/07/2016 10:55 PM EDT [facility] Osmolality Calculation (serum) 271(L) 275 - 300 mosm/kg H2O 04/07/2016 10:55 PM EDT [facility] Calcium 9.4 8.6 - 10.3 mg/dL 04/07/2016 10:55 PM EDT [facility] Protein Total Serum 6.9 5.6 - 7.9 g/dL 04/07/2016 10:55 PM EDT [facility] Albumin 4.5 3.5 - 4.9 g/dL 04/07/2016 10:55 PM EDT [facility] Comment:Result reflects use of Bromocresol Green Methodology. Bilirubin Total 1.3(H) 0.2 - 1.2 mg/dL 04/07/2016 10:55 PM EDT [facility] Alkaline Phosphatase 52 34 - 104 U/L 04/07/2016 10:55 PM EDT [facility] AST (SGOT) 24 13 - 40 U/L 04/07/2016 10:55 PM EDT [facility] ALT (SGPT) 28 7 - 52 U/L 04/07/2016 10:55 PM EDT [facility] A/G Ratio 1.9 1.0 - 2.0 Ratio 04/07/2016 10:55 PM EDT [facility] Globulin 2.4 gm/dL 04/07/2016 10:55 PM EDT [facility] GFR >60 mL/min/1.7 3 sqm 04/07/2016 10:55 PM EDT [facility] Comment: Notes for GFR: 1. ??Multiply result by 1.21 if patient is black/ ?[place]. 2. ??Chronic kidney disease: <60 mL/min/1.73 sq.m. ?Renal Failure: <15 mL/min/1.73 sq.m. Calcium, Corrected(Adj/Ca lc)Total 9.0 mg/dL 04/07/2016 10:55 PM EDT [facility] 04/07/2016 9:51 PM EDT 04/07/2016 10:23 PM EDT us Mac Chandra MD CHEMISTRY ORDERABLES Final Resul t [facility] [address] [place] [address] * (ABNORMAL) CBC with Differential (04/07/2016 9:51 PM EDT) WBC Count 7.0 4.8 - 10.8 10*3/uL 04/07/2016 10:40 PM EDT [facility] RBC Count 4.98 4.60 - 6.20 10*6/uL 04/07/2016 10:40 PM EDT [facility] Hgb 15.0 14.0 - 18.0 g/dL 04/07/2016 10:40 PM EDT [facility] Hct 42.6 42.0 - 52.0 % 04/07/2016 10:40 PM EDT [facility] MCV 85.5 80.0 - 100.0 fL 04/07/2016 10:40 PM EDT [facility] MCH 30.1 27.0 - 33.0 pg 04/07/2016 10:40 PM EDT [facility] MCHC 35.2 32.0 - 36.0 g/dL 04/07/2016 10:40 PM EDT [facility] Platelet Count 182 150 - 450 10*3/uL 04/07/2016 10:40 PM EDT [facility] RDW 13.2 12.2 - 14.6 % 04/07/2016 10:40 PM EDT [facility] Neutrophils 49.2 45.0 - 75.0 % 04/07/2016 10:40 PM EDT [facility] Lymphocytes 36.7 19.0 - 46.0 % 04/07/2016 10:40 PM EDT [facility] Monocytes 11.8 2.0 - 12.0 % 04/07/2016 10:40 PM EDT [facility] Eosinophils 2.0 0.0 - 4.0 % 04/07/2016 10:40 PM EDT [facility] Basophils 0.3 0.0 - 1.5 % 04/07/2016 10:40 PM EDT [facility] Immature Granulocytes 0.1 0 - 2 % 04/07/2016 10:40 PM EDT [facility] Comment: The IG% includes immature cells indicative of a myeloid left shift. NOT included in the IG% are bands and blasts. The IG% has a strong negative predictive value in that if the IG% is less than 2.0, you can be assured that there is not a significant myeloid left shift. If the IG% is greater than 2.0, a manual differential will be performed in which bands and immature myeloid cells will be separately enumerated. Neutrophils Absolute 3.43 2.20 - 8.00 10*3/uL 04/07/2016 10:40 PM EDT [facility] Lymphocytes Absolute 2.56 0.90 - 5.00 10*3/uL 04/07/2016 10:40 PM EDT [facility] Monocytes Absolute 0.82(H) 0.20 - 0.80 10*3/uL 04/07/2016 10:40 PM EDT [facility] Eosinophils Absolute 0.14 0.00 - 0.40 10*3/uL 04/07/2016 10:40 PM EDT [facility] Basophils Absolute 0.02 0.00 - 0.40 10*3/uL 04/07/2016 10:40 PM EDT [facility] Immature Granulocyte Absolute 0.01 10*3/uL 04/07/2016 10:40 PM EDT [facility] 04/07/2016 9:51 PM EDT 04/07/2016 10:21 PM EDT us Mac Chandra MD HEMATOLOGY ORDERABLES Final Resu lt [facility] [address] [place] [address] * (ABNORMAL) Urinalysis POCT (04/07/2016 9:24 PM EDT) Color, UA YELLOW YELLOW 04/07/2016 9:49 PM EDT [facility] Clarity, UA CLEAR Clear 04/07/2016 9:49 PM EDT [facility] Spec Grav, UA 1.010 1.005 - 1.030 04/07/2016 9:49 PM EDT [facility] Glucose, UA NEGATIVE Negative mg/dL 04/07/2016 9:49 PM EDT [facility] Bilicheck NEGATIVE Negative 04/07/2016 9:49 PM EDT [facility] Ketones, UA TRACE(A) Negative mg/dL 04/07/2016 9:49 PM EDT [facility] Blood, UA NEGATIVE Negative 04/07/2016 9:49 PM EDT [facility] pH, UA 5.5 [pH] 04/07/2016 9:49 PM EDT [facility] Protein, UA NEGATIVE Negative mg/dL 04/07/2016 9:49 PM EDT [facility] Urobilinogen, UA 0.2 0.2 mg/dL 04/07/2016 9:49 PM EDT [facility] Nitrite, UA NEGATIVE Negative 04/07/2016 9:49 PM EDT [facility] Leukocytes, UA NEGATIVE Negative 04/07/2016 9:49 PM EDT [facility] Urine Microscopic Not Indicated Not Indicated 04/07/2016 9:49 PM EDT [facility] Urine Source VOIDED 04/07/2016 9:49 PM EDT [facility] 04/07/2016 9:24 PM EDT 04/07/2016 9:24 PM EDT us Mac Chandra MD URINE ORDERABLES Final Result [facility] [address] [facility] [place] [address] documented in this encounter Visit Diagnoses Diagnosis Epigastric pain- Primary Abdominal pain, epigastric Acute gastritis without hemorrhage, unspecified gastritis type documented in this encounter Administered Medications Inactive Administered Medications - up to 3 most recent administrations Medication Order MAR Action Action Date Dose Rate Site alum & mag hydroxide-simeth (MAALOX) suspension 30 mL 30 mL, Oral, ONCE, On Lisa 04/08/16 at 0015, For 1 dose, Give with Viscous Lidocaine = GI Cocktail Given 04/08/2016 12:13 AM EDT 30 mLs famotidine (PEPCID) tablet 40 mg 40 mg, Oral, ONCE, On Lisa 04/08/16 at 0115, For 1 dose Given 04/08/2016 1:29 AM EDT 40 mg lidocaine (XYLOCAINE) 2 % mouth solution 15 mL 15 mL, Oral, ONCE, On Lisa 04/08/16 at 0015, For 1 dose, Give with Maalox = GI Cocktail Given 04/08/2016 12:13 AM EDT 15 mLs ondansetron (ZOFRAN-ODT) disintegrating tablet 4 mg 4 mg, Oral, ONCE, On Lisa 04/08/16 at 0015, For 1 dose, May repeat Q. 20 minutes x2. Do not exceed 3 doses. Given 04/08/2016 12:11 AM EDT 4 mg documented in this encounter Active and Recently Administered Medications Times are shown in EDT. Scheduled Medication Order 04/06/2016 04/07/2016 04/08/2016 alum & mag hydroxide-simeth (MAALOX) suspension 30 mL (COMPLETED) 30 mL, Oral, ONCE, On Lisa 04/08/16 at 0015, For 1 dose, Give with Viscous Lidocaine = GI Cocktail 0013 (Given - Provid er: Elisabeth Tafoya RN) famotidine (PEPCID) tablet 40 mg (COMPLETED) 40 mg, Oral, ONCE, On Lisa 04/08/16 at 0115, For 1 dose 0129 (Given - Provid er: Elisabeth Tafoya RN) lidocaine (XYLOCAINE) 2 % mouth solution 15 mL (COMPLETED) 15 mL, Oral, ONCE, On Lisa 04/08/16 at 0015, For 1 dose, Give with Maalox = GI Cocktail 0013 (Given - Provid er: Elisabeth Tafoya RN) ondansetron (ZOFRAN-ODT) disintegrating tablet 4 mg (COMPLETED) 4 mg, Oral, ONCE, On Lisa 04/08/16 at 0015, For 1 dose, May repeat Q. 20 minutes x2. Do not exceed 3 doses. 0011 (Given - Provid er: Elisabeth Tafoya RN) documented in this encounter Care Teams Permit Specialist Relationship Specialty Start Date End Date Sal Wright DO PCP - General 08/28/12 04/11/18 documented as of this encounter
--- OUTSIDE RECORDS SUMMARY | 2024-06-24 04:39 | XMS_ITS | Encounter Summary ---
Author Organization [facility] alth Address [address] [place] [address] Care Team Providers Care Yard Worker Name Role Phone Adriana Sal Salinas DO Primary Care Provider [phone] Reason for Visit * Reason Comments Derm Problem X Two days, Pt c/o o f lump on the bottom of R eye, Pt doesnt recall injury. Pt c/o of redness, sore and warmth to the touch. Pt denies discharge. Pt denies blurry vision. Tx; None Encounter Details Date Type Department Care Team (Late st Contact Info) Description 12/04/2015 5:15 PM EDT Office Visit [facility] [address] [address] Paula Stockton PAGorgeC [address] [place] [address] Skin infection (Primary Dx) Discharge Disposition: Home/Self Care Social History Tobacco Use Types Packs/Day Years Used Date Smoking Tobacco: Never Smokeless Tobacco: Current Comments:chew tobacco 1 can a week Alcohol [...] Sign Reading Time Taken Comments Blood Pressure 156/94 12/04/2015 5:26 PM EDT Pulse 88 12/04/2015 5:26 PM EDT Temperature 37.1 ??C (98.7 ??F) 12/04/2015 5:26 PM ED T Respiratory Rate - - Oxygen Saturation 96% 12/04/2015 5:26 PM EDT Inhaled Oxygen Concentration - - Weight 115 kg (253 lb) 12/04/2015 5:26 PM EDT Height 179 cm (5' 10.47 ) 12/04/2015 5:26 PM EDT Body Mass Index 35.82 12/04/2015 5:26 PM EDT documented in this encounter Patient Instructions * Patient Instructions* Paula Stockton PA-C - 12/04/2015 5:53 PM EDT Images from the original note were not included. Skin Abscess: Care Instructions Your Care Instructions A skin abscess is a bacterial infection that forms a pocket of pus. A boil is a kind of skin abscess. The doctor may have cut an opening in the abscess so that the pus can drain out. You may have gauze in the cut so that the abscess will stay open and keep draining. You may need antibiotics. You will need to follow up with your doctor to make sure the infection has gone away. The doctor has checked you carefully, but [...] you care for yourself at home? ?? Apply warm and dry compresses, a heating pad set on low, or a hot water bottle 3 or 4 times a day for pain. Keep a cloth between the heat source and your skin. ?? If your doctor prescribed antibiotics, take them as directed. Do not stop taking them just because you feel better. You need to take the full course of antibiotics. ?? Take pain medicines exactly as directed. ?? If the doctor gave you a prescription medicine for pain, take it as prescribed. ?? If you are not taking a prescription pain medicine, ask your doctor if you can take an nqxt-yru-dunjjly medicine. ?? Keep your bandage clean and dry. Change the bandage whenever it gets wet or dirty, or at least one time a day. ?? If the abscess was packed with gauze: ?? Keep follow-up appointments to have the gauze changed or removed. If the doctor instructed you to remove the gauze, gently pull out all of the gauze when your doctor tells you to. ?? After the gauze is removed, soak the area in warm water for 15 to 20 minutes 2 times a day, until the wound closes. When should you call for help? Call your doctor now or seek immediate medical care if: ?? You have signs of worsening infection, such as: ?? Increased pain, swelling, warmth, or redness. ?? Red streaks leading from the infected skin. ?? Pus draining from the wound. ?? A fever. Watch closely for changes in your health, and be sure to contact your doctor if: ?? You do not get better as expected. Where can you learn more? Go to www.[email or web address].net/[employer]restigosh. Enter D633 in the search box to learn more about Skin Abscess: Care Instructions. Current as of: August 09, 2014 Content Version: 108 ?? [id number] [employer]. Care instructions adapted under license by your healthcare professional. If you have questions about a medical condition or this instruction, always ask your healthcare professional. [employer] disclaims any warranty or liability for your use of this information. documented in this encounter Progress Notes * Paula Stockton PA-C - 12/04/2015 5:33 PM EDT Images from the original note were not included. Patient ID: Robert Alexis is a 50 y.o. male who presents to Urgent Care today. Primary care provideris Sal Wright DO. Subjective: Patient presents with: Derm Problem: X Two days, Pt c/o of lump on the bottom of R eye, Pt doesnt recall injury. Pt c/o ofredness, sore and warmth to the touch. Pt denies discharge. Pt denies blurry vision. Tx; None HPI Robert Alexis is a 50 y.o. male who presents with chief complaint of Derm Problem (X Two days, Pt c/o of lump on the bottom of R eye, Pt doesnt recall injury. Pt c/o of redness, sore and warmth tothe touch. Pt denies discharge. Pt denies blurry vision. Tx; None ). Patient presents for evaluation of bump on the upper right side of face. Onset was 2 days ago. Denies fever. States it is below his right eye, but does not affect his vision. Denies any injury to thearea. Feels the area has been getting bigger, and it is sore to the touch. Denies drainage. Has nottried anything. Chart Review: has HTN (hypertension) and Asthma on his problem list. No current outpatient prescriptions on file prior to visit. No current facility-administered medications on file prior to visit. He is allergic to penicillins. Past medical, social, and family history noncontributory except as noted. Review of Systems Constitutional: Negative for fever. Eyes: Negative for blurred vision, double vision, photophobia, pain, discharge and redness. Skin: Bump on right side of face Objective: Visit Vitals ??? BP (!) 156/94 (BP Source: RA, Position: Sitting, Cuff Size: Lg) ??? Pulse 88 ??? Temp 98.7 ??F (37.1 ??C) (Oral) ??? Ht 1.79 m (5' 10.47 ) ??? Wt 115 kg (253 lb) ??? SpO2 96% ??? BMI 35.82 kg/m2 Physical Exam Nursing note and vitals reviewed. HENT: Head: Eyes: Conjunctivae, EOM and lids are normal. No preseptal cellulitis Pulmonary/Chest: Effort normal. Neurologic: He is alert and oriented to person, place, and time. Skin: Skin is warm. Constitutional: He appears well-developed and well-nourished. No distress. No results found. Assessment / Plan: 1. Skin infection - doxycycline (VIBRAMYCIN) 100 MG capsule; Take 1 capsule by mouth 2 times daily (with meals) for 10 days Dispense: 20 capsule; Refill: 0 Advised importance of warm compresses. Explained that if he is not seeing significant improvement in the next 48 hours needs to have follow up with primary care provider. If in the meantime he develops fever, increasing pain, or increasing size of abscess needs to proceed to the emergency department. All questions were answered. The patient or guardian was given an after-visit summary. documented in this encounter Plan of Treatment Not on file documented as of this encounter Visit Diagnoses Diagnosis Skin infection- Primary Unspecified local infection of skin and subcutaneous tissue documented in this encounter Care Teams Yard Worker Relationship Specialty Start Date End Date Sal Wright DO PCP - General 08/28/12 04/11/18 documented as of this encounter
--- OUTSIDE RECORDS SUMMARY | 2024-06-24 04:39 | XMS_ITS | Encounter Summary ---
Author Organization [facility] alth Address [address] [facility] [place] [address] Care Team Providers Care Equipment Tester Name Role Phone Sal Wright DO Primary Care Provider [phone] Reason for Visit * Reason Comments Headache pt presents with wif e with c/o headache with right sided head numbness x 1-2 weeks. Pt has had eyes checked but get tired, bouts of insomnia and sleeping alot, loss of appetite, both arms tingling, knees throb and feel wirey when walking and has had labs and endoscopy which were normal. Pt states that he just doesn't feel right Encounter Details Date Type Department Care Team (Late st Contact Info) Description 05/04/2016 2:40 PM EST Office Visit [facility] [place] [address] [place] [address] Adeline Bhandari CRNP [address] [place] [address] Fatigue, unspecified type (Primary Dx); Other headache syndrome; Lyme disease Discharge Disposition: Home/Self Care Social History Tobacco Use Types Packs/Day Years Used Date Smoking Tobacco: Never Smokeless Tobacco: Current Chew Tobacco Cessation:Ready to Q uit: Yes Comments:chew tobacco 1 can a week Alcohol [...] Sign Reading Time Taken Comments Blood Pressure 138/84 05/04/2016 2:58 PM EST Pulse 100 05/04/2016 2:58 PM EST Temperature 36.9 ??C (98.5 ??F) 05/04/2016 2:58 PM ES T Respiratory Rate - - Oxygen Saturation - - Inhaled Oxygen Concentration - - Weight 104 kg (228 lb 9.6 oz) 05/04/2016 2:58 PM EST Height 179.1 cm (5' 10.5 ) 05/04/2016 2:58 PM ES T Body Mass Index 32.34 05/04/2016 2:58 PM EST documented in this encounter Patient Instructions * Patient Instructions* Adeline Bhandari CRNP - 05/04/2016 3:22 PM EST Images from the original note were not included. Your symptoms probably lyme, take the medication, follow up with your Doctor - may need stress testor echocardiogram, may need other diagnostic test or repeat of lyme test again. If symptoms worsen go to emergency room. But think about symptoms of stroke just FYI in the future- F-face numbness, droop, A-arms or legs weakness, S-speech abnormality, T-time is essence call 911 Fatigue: Care Instructions Your Care Instructions Fatigue is a feeling of tiredness, exhaustion, or lack of energy. You may feel fatigue because of too much or not enough activity. It can also come from stress, lack of sleep, boredom, and poor diet.Many medical problems, such as viral infections, can cause fatigue. Emotional problems, especially depression, are often the cause of fatigue. Fatigue is most often a symptom of another problem. Treatment for fatigue depends on the cause. Forexample, if you have fatigue because you have a certain health problem, treating this problem also treats your fatigue. If depression or anxiety is the cause, treatment may help. Follow-up care is a zelaya part of your treatment and safety. Be sure to make and go to all appointments, and call your doctor if you are having problems. It's also a good idea to know your test resultsand keep a list of the medicines you take. How can you care for yourself at home? ?? Get regular exercise. But don't overdo it. Go back and forth between rest and exercise. ?? Get plenty of rest. ?? Eat a healthy diet. Do not skip meals, especially breakfast. ?? Reduce your use of caffeine, tobacco, and alcohol. Caffeine is most often found in coffee, tea, cola drinks, and chocolate. ?? Limit medicines that can cause fatigue. This includes tranquilizers and cold and allergy medicines. When should you call for help? Watch closely for changes in your health, and be sure to contact your doctor if: ?? You have new symptoms such as fever or a rash. ?? Your fatigue gets worse. ?? You have been feeling down, depressed, or hopeless. Or you may have lost interest in things thatyou usually enjoy. ?? You are not getting better as expected. Where can you learn more? Go to www.[employer]Ready.[employer]/lgh. Enter W864 in the search box to learn more about Fatigue: Care Instructions. Current as of: November 14, 2015 Content Version: 11.0 ?? 5391-7886 [employer]. Care instructions adapted under license by your healthcare professional. If you have questions about a medical condition or this instruction, always ask your healthcare professional. [employer] disclaims any warranty or liability for your use of this information. Lyme Disease: Care Instructions Your Care Instructions Lyme disease is a bacterial infection spread by ticks. Antibiotics can treat Lyme disease. If you do not treat Lyme disease, it can lead to problems with your skin, joints, heart, and nervous system. These problems can develop weeks, months, or even years after you get the infection. Your doctor may prescribe antibiotics even if it is not yet certain that you have Lyme disease. Follow-up care is a zelaya part of your treatment and safety. Be sure to make and go to all appointments, and call your doctor if you are having problems. It's also a good idea to know your test resultsand keep a list of the medicines you take. How can you care for yourself at home? ?? Take your antibiotics as directed. Do not stop taking them just because you feel better. You need to take the full course of antibiotics. ?? Take an zrdj-wdf-dpqvvmf pain medicine if needed, such as acetaminophen (Tylenol), ibuprofen (Advil, Motrin), or naproxen (Aleve). Read and follow all instructions on the label. To prevent Lyme disease in the future ?? Avoid ticks: ?? Learn where ticks are found in your community, and stay away from those areas if possible. ?? Cover as much of your body as possible when you work or play in grassy or wooded areas. ?? Use insect repellents, such as products containing DEET. You can spray them on your skin. ?? Take steps to control ticks on your property if you live in an area where Lyme disease occurs. Clear leaves, brush, tall grasses, woodpiles, and stone fences from around your house and the edges of your yard or garden. This may help get rid of ticks. ?? When you come in from outdoors, check your body for ticks, including your groin, head, and underarms. The ticks may be about the size of a poppy seed. If no one else can help you check for ticks on your scalp, comb your hair with a fine-tooth comb. ?? If you find a tick, remove it quickly. If you can't remove it with your fingers, use tweezers tograsp the tick as close to its mouth (the part in your skin) as possible. Slowly pull the tick straight out--do not twist or yank--until its mouth releases from your skin. ?? Ticks can come into your house on clothing, outdoor gear, and pets. These ticks can fall off andattach to you. ?? Check your clothing and outdoor gear. Remove any ticks you find. Then put your clothing in a clothes dryer on high heat for 1 hour to kill any ticks that might remain. ?? Check your pets for ticks after they have been outdoors. ?? When hiking in the [place], carry a small dry jar or ziplock bag. If you find a tick on your body,remove the tick and put it in the jar or bag. Store the container in the freezer so you can give itto your doctor if symptoms develop. The tick can be tested to learn whether it is carrying the bacteria that cause Lyme disease. When should you call for help? Call your doctor now or seek immediate medical care if: ?? You have skipping or pounding heartbeats, a severe headache, or neck pain. Watch closely for changes in your health, and be sure to contact your doctor if: ?? You develop a new rash. ?? You are very tired. ?? You have joint pain (especially with redness and swelling). ?? You do not get better as expected. Where can you learn more? Go to www.AdReady.net/lgh. Enter Y599 in the search box to learn more about Lyme Disease: Care Instructions. Current as of: November 11, 2015 Content Version: 11.0 ?? 5252-7961 [employer]. Care instructions adapted under license by your healthcare professional. If you have questions about a medical condition or this instruction, always ask your healthcare professional. [employer] disclaims any warranty or liability for your use of this information. documented in this encounter Progress Notes * Adeline Bhandari CRNP - 05/04/2016 3:06 PM EST Images from the original note were not included. Patient ID: Robert Alexis is a 51 y.o. male who presents to Urgent Care today. Primary care provideris Sal Wright DO. Subjective: Patient presents with: Headache: pt presents with with c/o headache with right sided head numbness x 1-2 weeks. Pt has had eyes checked but get tired, bouts of insomnia and sleeping alot, loss of appetite, both arms tingling, knees throb and feel wirey when walking and has had labs and endoscopy which were normal. Pt states that he just doesn't feel right HPI Robert Alexis is a 51 y.o. male who presents with chief complaint of Headache (pt presents with with c/o headache with right sided head numbness x 1-2 weeks. Pt has had eyes checked but get tired, bouts of insomnia and sleeping alot, loss of appetite, both arms tingling, knees throb and feel wirey when walking and has had labs and endoscopy which were normal. Pt states that he just doesn't feel right). Here with , patient reports feels tired, achey, joint pain both knees, RIGHT side of the head feels numb and tingling, sleeping more than usual. Symptoms over a month has rash on abdomen, was seen by his PCP after the rash and he said it is ok with lyme test negative for lyme, was ordered EKG, CBC, CMP all normal but said the lyme test was after two days that he got rash. Chart Review: has HTN (hypertension); Asthma; BMI 35-39.9; and Tubular adenoma of colon. Repeat colonoscopy in APR 2019 on his problem list. Current Outpatient Prescriptions on File Prior to Visit Medication Sig Dispense Refill ??? dicyclomine (BENTYL) 20 MG tablet Take 20 mg by mouth 3 times daily. ??? omeprazole (PRILOSEC) 20 MG capsule Take 20 mg by mouth every morning. ??? polyethylene glycol (MIRALAX) powder Miralax prep with Dulcolax tablets. 238 g 0 No current facility-administered medications on file prior to visit. He is allergic to penicillins. Past medical, social, and family history noncontributory except as noted. Review of Systems Constitutional: Positive for malaise/fatigue and weight loss. Negative for fever. HENT: Negative for congestion. Eyes: Positive for blurred vision. Respiratory: Negative for cough and shortness of breath. Cardiovascular: Negative for chest pain. Musculoskeletal: Positive for joint pain. Negative for falls. Skin: Positive for rash. Neurological: Positive for tingling and headaches. Negative for dizziness. All other systems reviewed and are negative. Objective: Visit Vitals ??? BP 138/84 (BP Source: RA, Position: Sitting, Cuff Size: Lg) ??? Pulse 100 ??? Temp 98.5 ??F (36.9 ??C) (Tympanic) ??? Ht 1.791 m (5' 10.5 ) ??? Wt 104 kg (228 lb 9.6 oz) ??? BMI 32.34 kg/m2 Physical Exam Nursing note and vitals reviewed. HENT: Right Ear: External ear normal. Left Ear: External ear normal. Nose: Nose normal. Mouth/Throat: Oropharynx is clear and moist. Eyes: Conjunctivae and EOM are normal. Pupils are equal, round, and reactive to light. Neck: Normal range of motion. Neck supple. Cardiovascular: Normal rate. EKG normal Pulmonary/Chest: Effort normal and breath sounds normal. No respiratory distress. He has no wheezes. Abdominal: Soft. Bowel sounds are normal. Musculoskeletal: Normal range of motion. Lymphadenopathy: He has no cervical adenopathy. Neurologic: He is alert and oriented to person, place, and time. Coordination normal. Neurological intact Steady gait, able to puff face, smile lips symmetrical, tongue midline, strength 5/5 upper and lower extremities Skin: Rash is noted. LEFT lower abdomen- has dried scab black spot- one only- non palpable, non tender Constitutional: He appears well-developed. No results found. Assessment / Plan: 1. Fatigue, unspecified type - AR COMPLETE TRACE & READ IN OFFICE All questions were answered. The patient or guardian was given an after-visit summary. 1. Fatigue, unspecified type EKG-MUSE(INOFFICE TRACE/ PB CHARGE)- normal- no change since last month doxycycline (VIBRAMYCIN) 100 MG capsule 2. Other headache syndrome doxycycline (VIBRAMYCIN) 100 MG capsule 3. Lyme disease doxycycline (VIBRAMYCIN) 100 MG capsule LYME WESTERN BLOT IGG IGM LYME ANTIBODY (SCREENING) Patient Instructions Your symptoms probably lyme, take the medication, follow up with your Doctor - may need stress testor echocardiogram, may need other diagnostic test or repeat of lyme test again. If symptoms worsen go to emergency room. But think about symptoms of stroke just FYI in the future- F-face numbness, droop, A-arms or legs weakness, S-speech abnormality, T-time is essence call 911 Fatigue: Care Instructions Your Care Instructions Fatigue is a feeling of tiredness, exhaustion, or lack of energy. You may feel fatigue because of too much or not enough activity. It can also come from stress, lack of sleep, boredom, and poor diet.Many medical problems, such as viral infections, can cause fatigue. Emotional problems, especially depression, are often the cause of fatigue. Fatigue is most often a symptom of another problem. Treatment for fatigue depends on the cause. Forexample, if you have fatigue because you have a certain health problem, treating this problem also treats your fatigue. If depression or anxiety is the cause, treatment may help. Follow-up care is a zelaya part of your treatment and safety. Be sure to make and go to all appointments, and call your doctor if you are having problems. It's also a good idea to know your test resultsand keep a list of the medicines you take. How can you care for yourself at home? ?? Get regular exercise. But don't overdo it. Go back and forth between rest and exercise. ?? Get plenty of rest. ?? Eat a healthy diet. Do not skip meals, especially breakfast. ?? Reduce your use of caffeine, tobacco, and alcohol. Caffeine is most often found in coffee, tea, cola drinks, and chocolate. ?? Limit medicines that can cause fatigue. This includes tranquilizers and cold and allergy medicines. When should you call for help? Watch closely for changes in your health, and be sure to contact your doctor if: ?? You have new symptoms such as fever or a rash. ?? Your fatigue gets worse. ?? You have been feeling down, depressed, or hopeless. Or you may have lost interest in things thatyou usually enjoy. ?? You are not getting better as expected. Where can you learn more? Go to www.[employer]Ready.[employer]lete[employer]/lgh. Enter W864 in the search box to learn more about Fatigue: Care Instructions. Current as of: November 14, 2015 Content Version: 11.0 ?? [id number] [employer]. Care instructions adapted under license by your healthcare professional. If you have questions about a medical condition or this instruction, always ask your healthcare professional. [employer] disclaims any warranty or liability for your use of this information. Lyme Disease: Care Instructions Your Care Instructions Lyme disease is a bacterial infection spread by ticks. Antibiotics can treat Lyme disease. If you do not treat Lyme disease, it can lead to problems with your skin, joints, heart, and nervous system. These problems can develop weeks, months, or even years after you get the infection. Your doctor may prescribe antibiotics even if it is not yet certain that you have Lyme disease. Follow-up care is a zelaya part of your treatment and safety. Be sure to make and go to all appointments, and call your doctor if you are having problems. It's also a good idea to know your test resultsand keep a list of the medicines you take. How can you care for yourself at home? ?? Take your antibiotics as directed. Do not stop taking them just because you feel better. You need to take the full course of antibiotics. ?? Take an wpdq-pfj-hjayfgp pain medicine if needed, such as acetaminophen (Tylenol), ibuprofen (Advil, Motrin), or naproxen (Aleve). Read and follow all instructions on the label. To prevent Lyme disease in the future ?? Avoid ticks: ?? Learn where ticks are found in your community, and stay away from those areas if possible. ?? Cover as much of your body as possible when you work or play in grassy or wooded areas. ?? Use insect repellents, such as products containing DEET. You can spray them on your skin. ?? Take steps to control ticks on your property if you live in an area where Lyme disease occurs. Clear leaves, brush, tall grasses, woodpiles, and stone fences from around your house and the edges of your yard or garden. This may help get rid of ticks. ?? When you come in from outdoors, check your body for ticks, including your groin, head, and underarms. The ticks may be about the size of a poppy seed. If no one else can help you check for ticks on your scalp, comb your hair with a fine-tooth comb. ?? If you find a tick, remove it quickly. If you can't remove it with your fingers, use tweezers tograsp the tick as close to its mouth (the part in your skin) as possible. Slowly pull the tick straight out--do not twist or yank--until its mouth releases from your skin. ?? Ticks can come into your house on clothing, outdoor gear, and pets. These ticks can fall off andattach to you. ?? Check your clothing and outdoor gear. Remove any ticks you find. Then put your clothing in a clothes dryer on high heat for 1 hour to kill any ticks that might remain. ?? Check your pets for ticks after they have been outdoors. ?? When hiking in the [place], carry a small dry jar or ziplock bag. If you find a tick on your body,remove the tick and put it in the jar or bag. Store the container in the freezer so you can give itto your doctor if symptoms develop. The tick can be tested to learn whether it is carrying the bacteria that cause Lyme disease. When should you call for help? Call your doctor now or seek immediate medical care if: ?? You have skipping or pounding heartbeats, a severe headache, or neck pain. Watch closely for changes in your health, and be sure to contact your doctor if: ?? You develop a new rash. ?? You are very tired. ?? You have joint pain (especially with redness and swelling). ?? You do not get better as expected. Where can you learn more? Go to www.AdReady.net/lg. Enter Y599 in the search box to learn more about Lyme Disease: Care Instructions. Current as of: November 11, 2015 Content Version: 11.0 ?? [id number] [employer]. Care instructions adapted under license by your healthcare professional. If you have questions about a medical condition or this instruction, always ask your healthcare professional. [employer] disclaims any warranty or liability for your use of this information. documented in this encounter Plan of Treatment Not on file documented as of this encounter Procedures Procedure Name Priority Date/Time Associated Diagnosis Comments EKG-MUSE(INOFFICE/P B CHARGE) Routine 05/04/2016 3:15 PM EST Fatigue, unspecified type documented in this encounter Results * LYME ANTIBODY (SCREENING) (05/04/2016 3:37 PM EST) Lyme Disease Ab Screen NEG Negative 05/05/2016 9:50 AM EST [facility] Lyme Interpretation NEG Negative 05/05/2016 9:50 AM EST [facility] Comment: When a Lyme Antibody screen is positive or equivocal, a Lyme IgG/IgM blot is added. A negative result does not exclude B. burgdorferi infection. Lyme serology (IgG and IgM) may remain negative during the first two weeks of illness and may remain negative if antibiotic treatment is started promptly. ??By 4 to 6 weeks, 70 to 80% of infected patients will seroconvert. Heterophilic (anti animal) antibodies in human serum can interfere with immunoassays. ??This result should be interpreted taking the entire clinical setting into account. ??(12/31/2015) Test performed by: ??[facility] ?[address], [address] ?[place] ??[address] ?Phone: ??[phone] ?[phone] ?Marquez Vance MD, Radio Assembler 05/04/2016 3:37 PM EST 05/04/2016 6:44 PM EST us Adeline VILLARREAL IMMUNOLOGY ORDERABLES Fin al Result [facility] [address] [place] [address] * LYME WESTERN BLOT IGG IGM (05/04/2016 3:37 PM EST) Pathologist [facility] Lyme Antibodies IgG WB NEG Negative 05/05/2016 12:48 PM EST [facility] Comment: Lyme Disease Ab (IgG), Western blot Bands Reported: (Bands reference range: Nonreactive) 18 kD (IgG): Nonreactive 23 kD (IgG): Nonreactive 28 kD (IgG): Nonreactive 30 kD (IgG): Nonreactive 39 kD (IgG): Nonreactive 41 kD (IgG): Nonreactive 45 kD (IgG): Nonreactive 58 kD (IgG): [...] the Diagnosis of Lyme Disease. MMWR 2014:63(15);333-333 Lyme Antibodies IgM WB NEG Negative 05/05/2016 12:48 PM [facility] Comment: Lyme Disease Ab (IgM), Western blot Bands Reported: (Bands reference range: Nonreactive) 23 kD (IgM): Nonreactive 39 kD (IgM): Nonreactive 41 kD (IgM): Nonreactive A Lyme disease IgM Western blot requires reactivity to 2 of 3 specific B. burgdorferi proteins to be considered positive. 05/04/2016 3:37 PM EST 05/04/2016 6:44 PM EST Adeline VILLARREAL IMMUNOLOGY ORDERABLES Fin al Result Performing Organization Address City/[facility]/ZIP Co de Phone Number [facility] [address] [place] [address] * EKG-MUSE(INOFFICE TRACE/ PB CHARGE) (05/04/2016 3:15 PM EST) Ventricular Rate 93 BPM [facility] Atrial Rate 93 BPM [facility] P-R Interval 172 ms [facility] QRS Duration 86 ms [facility] Q-T Interval 334 ms [facility]-EKG QTC Calculation 415 ms [facility]-EKG Calculated P [place] 21 degrees [facility]-EKG Calculated R [place] 39 degrees [facility] Calculated T [place] -2 degrees [facility] 05/04/2016 3:15 PM EST 05/05/2016 8:04 AM EST Narrative [facility] - 05/05/2016 8:04 AM EST Normal sinus rhythm Possible Anterior infarct , age undetermined Abnormal ECG When compared with ECG of 08-APR-2016 00:10, QT has shortened Confirmed by Matthew Rushing ([id number]) on 05/05/2016 8:04:50 AM Adeline VILLARREAL ECG ORDERABLES Final Res ult Performing Organization Address City/[facility] Co de Phone Number [facility] [address] [place] [address] documented in this encounter Visit Diagnoses Diagnosis Fatigue, unspecified type- Primary Other headache syndrome Lyme disease documented in this encounter Care Teams Equipment Tester Relationship Specialty Start Date End Date Sal Wright DO PCP - General 08/28/12 04/11/18 documented as of this encounter
--- OUTSIDE RECORDS SUMMARY | 2024-06-24 04:39 | XMS_ITS | Encounter Summary ---
Author Organization [facility] alth Address [address] [place] [address] Care Team Providers Care Senior Search Marketing Analyst Name Role Phone Sal Wright DO Primary Care Provider [phone] Reason for Visit * Reason Comments Syncope Encounter Details Date Type Department Care Team ([facility] Contact Info) Description 05/06/2016 5:17 PM EST - 05/06/2016 7:29 PM EST Emergency [facility] Emergency Dept [address] [phone] Mac Chandra MD [address] [place] [phone] Paresthesia of skin Discharge Disposition: Home/Self Care Social History Tobacco [...] Sign Reading Time Taken Comments Blood Pressure 137/80 05/06/2016 7:00 PM EST Pulse 90 05/06/2016 7:00 PM EST Temperature 36.6 ??C (97.8 ??F) 05/06/2016 3:09 PM ES T Respiratory Rate 18 05/06/2016 7:00 PM EST Oxygen Saturation 99% 05/06/2016 7:00 PM EST Inhaled Oxygen Concentration - - Weight - - Height - - Body Mass Index - - documented in this encounter Discharge Instructions * Discharge Instructions* Mac Chandra MD - 05/06/2016 7:13 PM EST the [facility] Lightheadedness or Faintness: Care Instructions Your Care Instructions Lightheadedness is a feeling that you are about to faint or pass out. You do not feel as if you or your surroundings are moving. It is different from vertigo, which is the feeling that you or things around you are spinning or tilting. Lightheadedness usually goes away or gets better when you lie down. If lightheadedness gets worse, it can lead to a fainting spell. It is common to feel lightheaded from time to time. Lightheadedness usually is not caused by a serious problem. It often is caused by a short-lasting drop in blood pressure and blood flow to your head that occurs when you get up too quickly from a seated or lying position. Follow-up care is a zelaya part of your treatment and safety. Be sure to make and go to all appointments, and call your doctor if you are having problems. It's also a good idea to know your test resultsand keep a list of the medicines you take. How can you care for yourself at home? ?? Lie down for 1 or 2 minutes when you feel lightheaded. After lying down, sit up slowly and remain sitting for 1 to 2 minutes before slowly standing up. ?? Avoid movements, positions, or activities that have made you lightheaded in the past. ?? Get plenty of rest, especially if you have a cold or flu, which can cause lightheadedness. ?? Make sure you drink plenty of fluids, especially if you have a fever or have been sweating. ?? Do not drive or put yourself and others in danger while you feel lightheaded. When should you call for help? Call 911 anytime you think you may need emergency care. For example, call if: ?? You have symptoms of a stroke. These may include: ?? Sudden numbness, tingling, weakness, or loss of movement in your face, arm, or leg, especially on only one side of your body. ?? Sudden vision changes. ?? Sudden trouble speaking. ?? Sudden confusion or trouble understanding simple statements. ?? Sudden problems with walking or balance. ?? A sudden, severe headache that is different from past headaches. ?? You have symptoms of a heart attack. These may include: ?? Chest pain or pressure, or a strange feeling in the chest. ?? Sweating. ?? Shortness of breath. ?? Nausea or vomiting. ?? Pain, pressure, or a strange feeling in the back, neck, jaw, or upper belly or in one or both shoulders or arms. ?? Lightheadedness or sudden weakness. ?? A fast or irregular heartbeat. After you call 911, the exposure machine operator may tell you to chew 1 adult-strength or 2 to 4 low-dose aspirin. Wait for an ambulance. Do not try to drive yourself. Watch closely for changes in your health, and be sure to contact your doctor if: ?? Your lightheadedness gets worse or does not get better with home care. Where can you learn more? Go to www.[employer].Medisse/lgh. Enter X578 in the search box to learn more about Lightheadedness or Faintness: Care Instructions. Current as of: November 14, 2015 Content Version: 11.0 ?? 8216-2113 [employer]. Care instructions adapted under license by your healthcare professional. If you have questions about a medical condition or this instruction, always ask your healthcare professional. [employer] disclaims any warranty or liability for your use of this information. Numbness and Tingling: Care Instructions Your Care Instructions Many things can cause numbness or tingling. Swelling may put pressure on a nerve. This could cause you to lose feeling or have a [id number] sensation on part of your body. Nerves may be damagedfrom trauma, toxins, or diseases, such as diabetes or multiple sclerosis (MS). Sometimes, though, the cause is not clear. If there is no clear reason for your symptoms, and you are not having any other symptoms, your doctor may suggest watching and waiting for a while to see if the numbness or tingling goes away on its own. Your doctor may want you to have blood or nerve tests to find the cause of your symptoms. Follow-up care is a zelaya part of your treatment and safety. Be sure to make and go to all appointments, and call your doctor if you are having problems. It's also a good idea to know your test resultsand keep a list of the medicines you take. How can you care for yourself at home? ?? If your doctor prescribes medicine, take it exactly as directed. Call your doctor if you think you are having a problem with your medicine. ?? If you have any swelling, put ice or a cold pack on the area for 10 to 20 minutes at a time. Puta thin cloth between the ice and your skin. When should you call for help? Call 911 anytime you think you may need emergency care. For example, call if: ?? You have weakness, numbness, or tingling in both legs. ?? You lose bowel or bladder control. ?? You have symptoms of a stroke. These may include: ?? Sudden numbness, tingling, weakness, or loss of movement in your face, arm, or leg, especially on only one side of your body. ?? Sudden vision changes. ?? Sudden trouble speaking. ?? Sudden confusion or trouble understanding simple statements. ?? Sudden problems with walking or balance. ?? A sudden, severe headache that is different from past headaches. Watch closely for changes in your health, and be sure to contact your doctor if you have any problems, or if: ?? You do not get better as expected. Where can you learn more? Go to www.[employer].net/lgh. Enter U128 in the search box to learn more about Numbness and Tingling: Care Instructions. Current as of: August 08, 2015 Content Version: 11.0 ?? [id number] [employer]. Care instructions adapted under license by your healthcare professional. If you have questions about a medical condition or this instruction, always ask your healthcare professional. [employer] disclaims any warranty or liability for your use of this information. documented in this encounter Medications at Time of Discharge dicyclomine (BENTYL) 20 MG tablet Take 20 mg by mouth 3 times daily as needed . 6 doxycycline (VIBRAMYCIN) 100 MG capsuleIndication s:Fatigue, unspecified type,Other headache syndrome,Lyme disease Take 1 capsule by mouth 2 times daily (with meals) for 21 days. 42 capsule 05/04/2016 6 omeprazole (PRILOSEC) 20 MG capsule Take 20 mg by mouth every morning. 6 polyethylene glycol (MIRALAX) powder Miralax prep with Dulcolax tablets. 238 g 04/16/2016 6 documented as of this encounter ED Notes * Mac Chandra MD - 05/06/2016 7:29 PM EST HISTORY: Chief Complaint Patient presents with ??? Syncope HPI 51-year-old gentleman presents to the emergency department with numbness to the right side of his head. The patient tells me that he had a colonoscopy and EGD done a couple weeks ago. He thinks when he woke up he noted some numbness to the right side of his head and has had some persistent numbness. This is over the year over the temporal region and sometimes radiates around to the occipital region and sometimes his eyes feel heavy. He denies pain other than very mild discomfort from time to time. He does not have neck stiffness and he denies fevers. His tells me this has since extremelyupset because he is unsure what is going on with him and he has been tearful at times. He also was treated for possible Lyme disease although he had 2 negative Lyme titers. He had some achiness in his knees. Earlier today he was leaning over to pet his dog when he became lightheaded and almost passed out. He denies chest pain or shortness of breath. He denies pleurisy. He was seen by his eye doctor as well with a normal exam. History reviewed. No pertinent past medical history. Past Surgical History Procedure Laterality Date ??? Endoscopy, esophagus ??? Hx colonoscopy History reviewed. No pertinent family history. Social History Substance Use Topics ??? Smoking status: Never Smoker ??? Smokeless tobacco: Current User Types: Chew Comment: chew tobacco 1 can a week ??? Alcohol use No Problem List Diagnosis ??? Asthma ??? Tubular adenoma of colon. Repeat colonoscopy in APR 2019 ??? BMI 35-39.9 ??? HTN (hypertension) Review of Systems PHYSICAL EXAM: Vital Signs Temperature 97.8 ??F (36.6 ??C) (05/06/16 1509) Pulse/Heart Rate 90 (05/06/161899) Respiration 18 (05/06/161899) BP 137/80 (05/06/161899) MAP 99 MM HG (05/06/161899) SpO2 99 % (05/06/161899) O2 Device room air (05/06/161899) O2 Therapy Flow Physical Exam Available past [...] is midline, no obvious masses are present. Supple, normal range of motion, no bruits. CARDIOVASCULAR: Normal rate, regular rhythm, normal heart sounds and intact distal pulses. PULMONARY/CHEST: There is a non-labored respiratory pattern. The lungs are clear and normal to auscultation. ABDOMINAL: Abdomen is non-distended. There is no tenderness elicited on palpation. GENITOURINARY: Exam deferred. MUSCULOSKELETAL: The extremities are adequately perfused with normal range of motion and no swelling or palpable abnormality. BACK: There are no obvious abnormalities on gross inspection. There is no CVA tenderness. NEUROLOGICAL: The patient is awake and moving all extremities with no difficulty. Cranial nerves are grossly normal as tested. Strength and sensation are intact. He reports some tingling over the ear on the right. SKIN: Skin is warm and dry. PSYCHIATRIC: The patient is awake and appropriate with a normal affect. EKG RHYTHM: Normal sinus rhythm EKG INTERPRETATION: No acute ischemic changes or change from prior OXYGEN SATURATION INTERPRETATION: 99% on room air, normal LAB INTERPRETATION: Laboratory studies have been reviewed and acted upon as needed RADIOLOGY INTERPRETATION: Radiology studies have been reviewed and acted upon as needed ED COURSE: Procedures MDM Overall the patient is moderately anxious but looks well. Regarding his head numbness it is unclearas to the cause but there is no indication here clinically or radiographically of a stroke. This may have been related to his positioning for the procedure which corresponds to the onset of symptoms.I do not see any evidence of an acute compensated cardiopulmonary condition. There is no evidence of PE, ischemia. He is neurologically normal otherwise. At this time I believe he can be safely discharged home. Follow-up with the family doctor in the office, return for any worsening symptoms or concerns. There is no definitive cause for his near syncopal episode found. The patients condition at the time of Disposition is {Discharge Condition: Improved. Mac Chandra MD 05/06/16 2315 * Tonia Murphy RN - 05/06/2016 7:10 PM EST Assumed care of patient. Patient resting comfortably in bed, AAOx4 and in NAD. * Namrata Alvarez I - 05/06/2016 6:26 PM EST Patient transported to: CT. Patient was not found to be on O2 therapy.. Patient disconnected from monitor, BP cuff, pulse ox and call longoria. * Negrita Mcintyre RN - 05/06/2016 5:28 PM EST Agree with triage note. Pt states he was seen at Urgent Care on Tuesday with complaints of intermittent right sided facial numbness, intermittent hand numbness and tingling, headaches and knee pain. Was started on Doxycycline for possible Lyme but that test came back negative. Syncopal episode but he got right back up on his feet. No associated injuries, did not strike head and no AC's. PCP advised pt to come to ED for further eval. Only complaint at this time is right sided facial numbness. No weakness, slurred speech or headache. Ambulated from waiting room without difficulty. at bedside and call longoria within reach. * Paula Aceves - 05/06/2016 3:08 PM EST Pt reports to emd with c/o syncopal episode this am. Reports numbness in his head for 2-3 weeks. Reports he passed out in the driveway. Denies any injury. Denies neck pain. Reports he was seen by PCPtokasandra and sent to emd. documented in this encounter Plan of Treatment Not on file documented as of this encounter Procedures Procedure Name Priority Date/Time Associated Diagnosis Comments XR CHEST PA AND LATERAL STAT 05/06/2016 6:[address] HEAD WO CONTRAST STAT 05/06/2016 6 :37 PM EST EKG 12-LEAD STAT 05/06/2016 6:21 PM EST D-DIMER, QUANT STAT 05/06/2016 6:21 PM EST CBC WITH DIFFERENTIAL - LAB STAT 05/06/2016 6:21 PM EST CARDIAC PROFILE-TROPONIN ONLY STAT 05/06/2016 6:21 PM EST COMPREHENSIVE METABOLIC PANEL STAT 05/06/2016 6:21 PM EST documented in this encounter Results * XR CHEST PA AND LATERAL (05/06/2016 6:44 PM EST) Anatomical Region Laterality Modality Chest Computed Radiogr aphy 05/06/2016 6:35 PM EST Impressions 05/06/2016 8:41 PM EST No focal consolidations are identified. Dictating Narrative 05/06/2016 8:41 PM EST Two-view chest x-ray performed on 05/06/2016 HISTORY: Intermittent right-sided facial numbness, headache, possible syncopal episode today. AP erect and lateral views of the chest were obtained. This study was compared to a prior study performed on 03/14/2016. There are no focal consolidations, pleural effusions, or pneumothorax. The cardiomediastinal silhouette is unremarkable. The osseous structures show no bony abnormality. Procedure Note Jann Friend MD - 05/06/2016 Two-view chest x-ray performed on 05/06/2016 HISTORY: Intermittent right-sided facial numbness, headache, possiblesyncopal episode today. AP erect and lateral views of the chest were obtained. This study wascompared to a prior study performed on 03/14/2016. There are no focal consolidations, pleural effusions, or pneumothorax. The cardiomediastinal silhouette is unremarkable. The osseous structures show no bony abnormality. IMPRESSION: No focal consolidations are identified. Dictating us Mac Chandra MD [facility] DIAG IMAGING ORDERABLES F inal Result * CT HEAD WO CONTRAST (05/06/2016 6:37 PM EST) Anatomical Region Laterality Modality Head Computed Tomogra phy 05/06/2016 6:35 PM EST Impressions 05/06/2016 8:40 PM EST No acute intracranial hemorrhage or mass effect is identified. All exams performed by [facility] utilize one or more of the following dose optimization techniques: automated exposure control, adjustment of the mA and/or kV according to patient size and/or the use of iterative reconstruction techniques. ??Audits are completed at the protocol, device and patient level to ensure compliance. ??All protocols (per device) are periodically reviewed by a team of medical physicists, technologists and radiologists. Dictating Narrative 05/06/2016 8:[address] of the head without intravenous contrast performed on 05/06/2016 History: ??Post syncopal episode this a.m., numbness to the head for 2 to 3 weeks, intermittent right-sided facial numbness and hand numbness/tingling, headache, knee pain. Comparison: ?? No prior studies are available for comparison. Technique: Multiple axial CT images of the head were obtained without intravenous contrast. Coronal reformatted images were created and reviewed. Findings: The ventricles, sulci, and cisterns are unremarkable. There is no evidence for an extra-axial fluid collection, hydrocephalus, acute intracranial hemorrhage, or mass effect. There is no CT evidence for an acute territorial infarct. The posterior fossa is unremarkable. The calvarium is intact. The visualized mastoid air cells and paranasal sinuses are unremarkable. Procedure Note Jann Friend MD - 05/06/2016 CT of the head without intravenous contrast performed on 05/06/2016 History: Post syncopal episode this a.m., numbness to the head for 2 to 3weeks, intermittent right-sided facial numbness and handnumbness/tingling, headache, knee pain. Comparison: No prior studies are available for comparison. Technique: Multiple axial CT images of the head were obtained without intravenouscontrast. Coronal reformatted images were created and reviewed. Findings: The ventricles, sulci, and cisterns are unremarkable. There is no evidencefor an extra-axial fluid collection, hydrocephalus, acute intracranialhemorrhage, or mass effect. There is no CT evidence for an acuteterritorial infarct. The posterior fossa is unremarkable. The calvarium is intact. The visualized mastoid air cells and paranasalsinuses are unremarkable. IMPRESSION: No acute intracranial hemorrhage or mass effect is identified. All exams performed by [facility] utilize one or more of the following doseoptimization techniques: automated exposure control, adjustment of the mAand/or kV according to patient size and/or the use of iterativereconstruction techniques. Audits are completed at the protocol, deviceand patient level to ensure compliance. All protocols (per device) areperiodically reviewed by a team of medical physicists, technologists andradiologists. Dictating us Mac Chandra MD [facility] CT ORDERABLES Final Resul t * 12 Lead EKG (05/06/2016 6:21 PM EST) Ventricular Rate 96 BPM [facility] Atrial Rate 96 BPM [facility] P-R Interval 170 ms [facility] QRS Duration 80 ms [facility] Q-T Interval 342 ms [facility]EKG QTC Calculation 432 ms [facility]-E[facility] Calculated P [address] 21 degrees [facility]-E[facility] Calculated R [address] 44 degrees [facility] Calculated T [address] -7 degrees [facility] C[facility]IOLOG[facility]-EKG 05/06/2016 6:21 PM EST 05/07/2016 8:08 AM EST Narrative [facility]-EKG - 05/07/2016 8:09 AM EST Normal sinus rhythm with sinus arrhythmia Confirmed by Tomás RICHARDS, Sage ([id number]) on 05/07/2016 8:08:56 AM Mac Chandra MD ECG ORDERABLES Final Result Performing Organization Address [facility] de Phone Number [facility] CARDIOLOGY-EKG [address] [place] [address] * D-Dimer Quantitative (05/06/2016 6:21 PM EST) Pathologist [facility] D-Dimer, Quantitative 0.29 <0.50 mg/L FEU 05/06/2016 6:51 PM EST [facility] Comment: In the proper clinical scenario, a [...] value for D-Dimer is >= 0.50mg/L FEU. 05/06/2016 6:21 PM EST 05/06/2016 6:29 PM EST Mac Chandra MD HEMATOLOGY ORDERABLES Final Resu lt Performing Organization Address [facility] Co de Phone Number [facility] [address] [place] [phone] * CBC with Differential (05/06/2016 6:21 PM EST) Pathologist [facility] WBC Count 7.3 4.8 - 10.8 10*3/uL 05/06/2016 6:36 PM EST [facility] RBC Count 5.35 4.60 - 6.20 10*6/uL 05/06/2016 6:36 PM EST [facility] Hgb 16.0 14.0 - 18.0 g/dL 05/06/2016 6:36 PM [facility] Hct 45.3 42.0 - 52.0 % 05/06/2016 6:36 PM [facility] MCV 84.7 80.0 - 100.0 fL 05/06/2016 6:36 PM [facility] MCH 29.9 27.0 - 33.0 pg 05/06/2016 6:36 PM [facility] MCHC 35.3 32.0 - 36.0 g/dL 05/06/2016 6:36 PM [facility] Platelet Count 219 150 - 450 10*3/uL 05/06/2016 6:36 PM [facility] RDW 13.2 12.2 - 14.6 % 05/06/2016 6:36 PM [facility] Neutrophils 63.2 45.0 - 75.0 % 05/06/2016 6:36 PM [facility] Lymphocytes 26.4 19.0 - 46.0 % 05/06/2016 6:36 PM [facility] Monocytes 9.5 2.0 - 12.0 % 05/06/2016 6:36 PM [facility] Eosinophils 0.8 0.0 - 4.0 % 05/06/2016 6:36 PM [facility] Basophils 0.1 0.0 - 1.5 % 05/06/2016 6:36 PM [facility] Immature Granulocytes 0.1 0 - 2 % 05/06/2016 6:36 PM [facility] Comment: The IG% includes immature cells indicative [...] cells will be separately enumerated. Neutrophils Absolute 4.61 2.20 - 8.00 10*3/uL 05/06/2016 6:36 PM [facility] Lymphocytes Absolute 1.93 0.90 - 5.00 10*3/uL 05/06/2016 6:36 PM [facility] Monocytes Absolute 0.69 0.20 - 0.80 10*3/uL 05/06/2016 6:36 PM EST [facility] Eosinophils Absolute 0.06 0.00 - 0.40 10*3/uL 05/06/2016 6:36 PM EST [facility] Basophils Absolute 0.01 0.00 - 0.40 10*3/uL 05/06/2016 6:36 PM EST [facility] Immature Granulocyte Absolute 0.01 10*3/uL 05/06/2016 6:36 PM EST [facility] 05/06/2016 6:21 PM EST 05/06/2016 6:29 PM EST us Mac Chandra MD HEMATOLOGY ORDERABLES Final Resu lt [facility] [address] [place] [phone] * (ABNORMAL) Comprehensive Metabolic Panel (CMP) (05/06/2016 6:21 PM EST) Glucose (serum) 97 65 - 100 mg/dL 05/06/2016 7:00 PM [facility] Blood Urea Nitrogen 8 8 - 22 mg/dL 05/06/2016 7:00 PM [facility] Sodium 136 135 - 145 mmol/L 05/06/2016 7:00 PM [facility] Potassium 3.9 3.4 - 5.3 mmol/L 05/06/2016 7:00 PM [facility] Chloride 101 98 - 107 mmol/L 05/06/2016 7:00 PM [facility] CO2 Venous 28.0 21.0 - 31.0 mmol/L 05/06/2016 7:00 PM [facility] Anion Gap 7 5 - 15 mmol/L 05/06/2016 7:00 PM [facility] Creatinine 0.9 0.7 - 1.2 mg/dL 05/06/2016 7:00 PM [facility] BUN/Creatinine Ratio 9(L) 10 - 20 Ratio 05/06/2016 7:00 PM [facility] Osmolality Calculation (serum) 270(L) 275 - 300 mosm/kg H2O 05/06/2016 7:00 PM EST [facility] Calcium 9.4 8.6 - 10.3 mg/dL 05/06/2016 7:00 PM EST [facility] Protein Total Serum 6.9 5.6 - 7.9 g/dL 05/06/2016 7:00 PM EST [facility] Albumin 4.3 3.5 - 4.9 g/dL 05/06/2016 7:00 PM EST [facility] Comment:Result reflects use of Bromocresol Green Methodology. Bilirubin Total 1.1 0.2 - 1.2 mg/dL 05/06/2016 7:00 PM EST [facility] Alkaline Phosphatase 63 34 - 104 U/L 05/06/2016 7:00 PM [facility] AST (SGOT) 23 13 - 40 U/L 05/06/2016 7:00 PM [facility] ALT (SGPT) 34 7 - 52 U/L 05/06/2016 7:00 PM [facility] A/G Ratio 1.7 1.0 - 2.0 Ratio 05/06/2016 7:00 PM [facility] Globulin 2.6 gm/dL 05/06/2016 7:00 PM [facility] GFR >60 mL/min/1.7 3 sqm 05/06/2016 7:00 PM [facility] Comment: Notes for GFR: 1. ??Multiply result by 1.21 if patient is black/ ?[place]. 2. ??Chronic kidney disease: <60 mL/min/1.73 sq.m. ?Renal Failure: <15 mL/min/1.73 sq.m. Calcium, Corrected(Adj/Ca lc)Total 9.2 mg/dL 05/06/2016 7:00 PM EST [facility] 05/06/2016 6:21 PM EST 05/06/2016 6:30 PM EST us Mac Chandra MD CHEMISTRY ORDERABLES Final Resul t [facility] [address] [phone] * Cardiac Profile (CK, CKMB & Trop) (05/06/2016 6:21 PM EST) Troponin I <0.01 0.00 - 0.04 ng/mL 05/06/2016 6:56 PM EST [facility] 05/06/2016 6:21 PM EST 05/06/2016 6:29 PM EST us Mac Chandra MD CHEMISTRY ORDERABLES Final Resul t Performing Organization Address City/State/[facility] Co de Phone Number [facility] [address] [place] [address] documented in this encounter Visit Diagnoses Diagnosis Paresthesias- Primary Disturbance of skin sensation Syncope, unspecified syncope type documented in this encounter Care Teams Senior Search Marketing Analyst Relationship Specialty Start Date End Date Sal Wright DO PCP - General 08/28/12 04/11/18 documented as of this encounter
--- OUTSIDE RECORDS SUMMARY | 2024-06-24 04:39 | XMS_ITS | Encounter Summary ---
Author Organization [facility] alth Address [address] [facility] [address] Care Team Providers Care Cotton Header Name Role Phone Sal Wright DO Primary Care Provider [phone] Reason for Visit * Reason Onset Date Comments Refill Request 04/16/2016 Encounter Details Date Type Department Care Team (Late st Contact Info) Description 04/16/2016 Refill [facility] [address] [facility] [address] [place] [phone] Delfino Becerril MD [address] [facility] [address] [place] [address] Refill Request Social History Tobacco Use Types [...] on filedocumented in this encounter Care Teams Cotton Header Relationship Specialty Start Date End Date Sal Wright DO PCP - General 08/28/12 04/11/18 documented as of this encounter
--- OUTSIDE RECORDS SUMMARY | 2024-06-24 04:39 | XMS_ITS | Encounter Summary ---
Author Organization [facility]th Address [address] [place] [address] Care Team Providers Care Crisis Intervention Specialist Name Role Phone Sal Wright DO Primary Care Provider [phone] Reason for Visit * Reason Comments Other see HPI * New Consult/Second Opinion (Routine) - Closed Specialty Diagnoses / Procedures Referred By Contac t Referred To Contact Gastroenterology Diagnoses Epigastric pain Sal Wright DO Phone: tel: fax: [facility] [address] [facility] [place] [address] Phone: tel: fax: Referral ID Status Reason Start Date Expiration Date Visits Re quested Visits Authorized [id number] Closed 04/14/2016 06/19/2016 20 20 Encounter Details Date Type Department Care Team ([facility] Contact Info) Description 05/25/2016 8:15 AM EST Office Visit [facility] [address] [facility] [place] [phone] Bev Loaiza CRNP [address] [facility] [place] [address] Unexplained weight loss (Primary Dx); Colon adenoma Discharge Disposition: Home/Self Care Social History Tobacco [...] Sign Reading Time Taken Comments Blood Pressure 126/94 05/25/2016 8:12 AM EST Pulse 96 05/25/2016 8:12 AM EST Temperature - - Respiratory Rate - - Oxygen Saturation - - Inhaled Oxygen Concentration - - Weight 103 kg (226 lb) 05/25/2016 8:12 AM EST Height 179.1 cm (5' 10.5 ) 05/25/2016 8:12 AM ES T Body Mass Index 31.97 05/25/2016 8:12 AM EST documented in this encounter Patient Instructions * Patient Instructions* Guerita Mendoza MA - 05/25/2016 9:22 AM EST 1. All first degree relatives should be screened for colon cancer by age 40 2. If the abdominal pain recurs, the patient is to call back, will consider a mesenteric workup documented in this encounter Progress Notes * Guerita Mendoza MA - 05/25/2016 9:22 AM EST Robert Baileyaleax Lucio. discharged by: Guerita Mendoza MA. * Ofelia Mccrary MA - 05/25/2016 8:08 AM EST Robert Baileyalexa Lucio. roomed by: Ofelia Mccrary CMA. Sal Wright, DO Recent testing in EPIC * Bev Loaiza CRNP - 05/24/2016 4:56 PM EST Subjective: Robert Alexis Jr. is a 51 y.o. male who presents in follow up of his abdominal pain. He is accompanied by his , Patience. The patient had intermittent abdominal pain of varying degrees for several months that was occasionally improved with eating or bowel movements. He also was on Dicyclomine with Omeprazole with some improvement. His abdominal pain has since resolved and now he notes pain underthe left lower rib of which she is currently undergoing a workup, also seeing a Lyme specialist, Dr. Michael Lane of [place], [place], and is on treatment with amoxicillin until his testing is completed. He has a follow-up with him on Tuesday. He continues with loss of appetite and is down another 11 poundssince he was evaluated in March. His bowels are irregular, going 1-2 times a day. He continues with a lot of belching. He denies rectal bleeding, diarrhea, melena, heartburn, dysphagia, nausea or vomiting. The patient underwent a colonoscopy with EGD, April 2016, for intermittent varying degrees of abdominal pain, for several weeks, occasionally improved with eating or bowel movements. He is on Omeprazole 20mg daily and Dicyclomine 20mg TID with marked improvement. His EGD was normal except for a fundic gland polyp. His colonoscopy showed 4 colon polyps, tubular and sessile serrated adenomas. He had hemorrhoids and severe diverticulosis. His diverticulosis may be contributing to his pain as well. His CT scan showed a possible right adrenal adenoma with the recommendation to consider an MR exam. PMH: HTN, Childhood Asthma, Obesity, Congenital absence of left kidney Denies CAD, COPD, Asthma, CVA, TIA, MARY, DM, Seizures PSH: EGD 05/05 (epigastric pain) fundic gland polyp, Colonoscopy 05/05 (pain) severe diverticulosis, hemorrhoids, four 4-18mm colon polyps- tubular and sessile serrated adenomas P/S Hx: , positive tobacco (chews), denies alcohol Allergies: PCN Medications: Current prescriptions, [id number] medications, herbal medications and vitamin/mineral/dietarysupplements have been documented during this encounter and the patient denies taking any other medications not listed above. FH: Positive colon cancer (mother) Review of Systems Constitutional: Positive for weight loss (see HPI). Musculoskeletal: Positive for myalgias. Neurological: Recent syncopal episode, negative MRI and MRA of the brain Objective: Vitals: Visit Vitals ??? BP (!) 126/94 ??? Pulse 96 ??? Ht 1.791 m (5' 10.5 ) ??? Wt 103 kg (226 lb) ??? BMI 31.97 kg/m2 Physical Exam Constitutional: He is oriented to person, place, and time. He appears well- developed and well-nourished. HENT: Head: Normocephalic and atraumatic. Eyes: Conjunctivae are normal. No scleral icterus. Neck: Neck supple. No JVD present. Cardiovascular: Normal rate and regular rhythm. Pulmonary/Chest: Effort normal and breath sounds normal. No respiratory distress. Abdominal: Soft. Bowel sounds are normal. He exhibits no distension, no abdominal bruit, no ascitesand no mass. There is no hepatosplenomegaly. There is no tenderness. There is no guarding. Neurological: He is alert and oriented to person, place, and time. Skin: Skin is warm and dry. Psychiatric: He has a normal mood and affect. His behavior is normal. Vitals reviewed. Diagnostic Data: 04/07/16 CMP normal except TB 1.3, Lipase 22, CBC normal, U/A negative glucose, blood, routine 05/05 MRI Brain (syncope) MRI of the brain without contrast 05/10/2016 ?? History: 3 syncopal episodes with lightheadedness. ?? Technique: Axial FLAIR, T2, T1, SWI, DWI, ADC and sagittal T1 and coronal T2 sequences were performed. ?? Comparison: None ?? Findings: The cerebral ventricles and cortical sulci are within normal limits. There is no restricted diffusion in the brain to suggest infarct. There is no evidence of intracranial hemorrhage. Thereis no mass effect or midline shift. ?? Vascular flow voids appear normal. Orbits and paranasal sinuses are unremarkable. No abnormalities are seen in the calvarium. ?? Impression ?Negative MRI of the brain. 05/05 MRA Brain (syncope) MRA 05/10/2016 ?? HISTORY: Multiple syncopal episodes. ?? TECHNIQUE: Oysz-kz-hqwaso axial images were acquired through the intracranial vasculature with MIP reconstruction. ?? FINDINGS: Vertebrobasilar: The LEFT vertebral artery is dominant. There is no definite vertebral stenosis. Cerebellar arteries appear normal. Basilar artery is widely patent. ?? Internal carotids: No hemodynamically significant stenosis in intracranial segments. ?? Cerebral arteries: The LEFT posterior cerebral artery is tortuous arising from the anterior aspect of the basilar. Posterior cerebral arteries are patent. Left-sided posterior communicating artery isnoted. There is no P-comm artery seen on the RIGHT. Middle cerebral arteries appear widely patent. Anterior cerebral arteries are normal. Anterior communicating artery is normal. ?? There is no evidence of an aneurysm. ?? Impression ?Unremarkable MRA of the brain. 03/14/16 CT scan A&P with contrast (RLQ pain) CT abdomen and pelvis ?? Clinical history: 50-year-old with fullness and discomfort in the RIGHT lower quadrant for 3 days. ?? Technique: Routine enhanced CT of the abdomen and pelvis was performed. 80 cc of Omnipaque 350 was given by IV injection. ??900 cc of barium sulfate was given orally. ?? Comparisons: None ?? Findings: Abdomen: Lung bases: ??Clear. Abdominal solid organs: The LEFT kidney is congenitally absent. The RIGHT kidney appears unremarkable. There is a tiny low-density LEFT adrenal nodule measuring 8 mm. This may represent a small adenoma.This would be better evaluated by MR exam. The RIGHT adrenal gland, pancreas, spleen and liver are unremarkable. Gallbladder: Unremarkable. Bowel: Demonstrates no evidence of obstruction. Additional findings: There is no significant adenopathy and there is no free fluid. ? Pelvis: Pelvic organs: There is absence of the seminal vesicle on the LEFT, again likely congenital. The pelvic organs are otherwise unremarkable. There is diverticulosis without evidence of diverticulitis. There is a normal appendix. Additional findings: There is no significant adenopathy or free fluid. ? Impression ? No acute abnormality is seen. There is a normal appendix noted. 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 ?? There is a probable LEFT adrenal adenoma. If clinically indicated, this would be better evaluated by MR exam. ? All exams performed by [facility] utilize one or more of the following dose optimization techniques:Automated exposure control, adjustment of the mA and/or kV according to patient size and/or the useof iterative reconstruction techniques. ??Audits are completed at the protocol, device and patient level to ensure compliance. ??All protocols (per device) are periodically reviewed by a team of medical physicists, technologists and radiologists. ?? 03/14/16 Obstructive series (RLQ pain) Abdominal obstruction series and PA erect view of the chest performed on 03/14/2016 ?? HISTORY: RIGHT lower quadrant abdominal fullness and discomfort, belching ?? Supine and erect views of the abdomen and pelvis were obtained as well as a PA erect view of the chest. ?? There are no focal consolidations. There is no evidence for free air. There is no evidence for dilated air-filled bowel or air-fluid levels. ?? There is levoscoliosis of the lumbar spine. There is stool at the rectosigmoid colon. ?? Impression ? No bowel obstruction or free air is identified. Stool at the rectosigmoid Impression/Plan: Impression: 1. Generalized abdominal pain with unexplained weight loss, his pain has resolved though he continues to lose weight with loss of appetite, negative EGD and colonoscopy, negative CT scan of abdomen and pelvis, negative MRI and MRA of the brain, if his abdominal pain recurs, will consider a mesenteric workup otherwise will defer any further workup for his weight loss to the PCP 2. Four 4-18mm colon polyps- tubular and sessile serrated adenomas April 2016, family history colon cancer, due for a repeat colonoscopy April 2019 3. There is a probable left adrenal adenoma. If clinically indicated, this would be better evaluated by MR exam, will defer to PCP 4. Possible Lyme disease, undergoing a workup and currently on antibiotics 5. Childhood Asthma, asymptomatic Plan: 1. All first degree relatives should be screened for colon cancer by age 40 2. If the abdominal pain recurs, the patient is to call back, will consider a mesenteric workup The endoscopic evaluations and pathology reports were reviewed with the patient and his today,including the need to have a repeat colonoscopy in 3 years given his precancerous colon polyps. Discussed with Dr. Becerril. No follow up has been given to Robert Alexis Jr., however we would be happy to see him should the need arise. Should you have any questions, please do not hesitate to contact our office. documented in this encounter Plan of Treatment Not on file documented as of this encounter Visit Diagnoses Diagnosis Unexplained weight loss- Primary Loss of weight Colon adenoma Benign neoplasm of colon documented in this encounter Care Teams Crisis Intervention Specialist Relationship Specialty Start Date End Date Sal Wright DO PCP - General 08/28/12 04/11/18 documented as of this encounter
--- OUTSIDE RECORDS SUMMARY | 2024-06-24 04:39 | XMS_ITS | Encounter Summary ---
Author Organization [facility] alth Address [address] [facility] [place] [address] Care Team Providers Care Cafe Lead Name Role Phone Sal Wright DO Primary Care Provider Kilo Wang MD Unavailable [phone] Juan Haddad MD Unavailable Reason for Visit * Reason Comments Ear Problem Hearing Loss Ringing In Ear Encounter Details Date Type Department Care Team (Late st Contact Info) Description 09/23/2017 3:10 PM EDT Office Visit [facility] [address] [place] [address] [place] [phone] Juan Haddad MD [address] [place] [address] [place] [address] Subjective tinnitus of both ears (Primary Dx) Discharge Disposition: Home/Self Care Social [...] - - Weight 104 kg (230 lb) 09/23/2017 3:04 PM EDT Height 182.9 cm (6') 09/23/2017 3:04 PM EDT Body Mass Index 31.19 09/23/2017 3:04 PM EDT documented in this encounter Progress Notes * Juan Haddad MD - 09/23/2017 3:15 PM EDT Robert Alexis Jr. is a 52 y.o. male who presents with Ear Problem; Hearing Loss; and Ringing In Ear HPI: The patient presents for evaluation regarding ringing in his ears. This is in both ears and has been going on for about 6 months area he does say that he has hearing loss and his says his hearing is awful. The hearing loss has been gradual. He does have some significant noise exposure. He denies any vertigo area is never had ear surgery area he denies significant head trauma or chemotherapy exposure. He's been on a lot of antibiotics recently because of Lyme disease. ROS Lyme disease, hypertension, asthma, anxiety, nonsmoker Past Medical History, Past Surgical History, Pertinent Family History, Medications, Allergies and Social History were documented in the record and reviewed with the patient and updated any changes. 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 Speech audiometry shows an SRT of 25 dB and a 92% discrimination score for each ear. Tympanograms are normal. Assessment and Plan: has bilateral tinnitus secondary to his hearing loss. I've talked to him about masking techniques and protecting his ears from further noise. He is a good candidate for amplification and he will consider this. He will return as needed. documented in this encounter Plan of Treatment Scheduled Orders Name Type Priority Associated Diagnoses Orde r Schedule OK COMPREHENSIVE HEARING TEST Procedures Routine Subjective tinnitus of both ears Ordered: 09/23/2017 OK TYMPANOMETRY Procedures Routine Subjective tinnitus of both ears Ordered: 09/23/2017 documented as of this encounter Visit Diagnoses Diagnosis Subjective tinnitus of both ears- Primary documented in this encounter Care Teams Cafe Lead Relationship Specialty Start Date End Date Adriana Sal DO Brad PCP - General 08/28/12 04/11/18 Kilo Wang MD Consulting Physician Neurology 08/30/16 12/01/21 Juan Haddad MD [facility] [place] [id number] Otolaryngology 09/23/17 documented as of this encounter
--- OUTSIDE RECORDS SUMMARY | 2024-06-24 04:39 | XMS_ITS | Encounter Summary ---
Author Organization [facility]th [facility] [address] [facility] [address] Care Team Providers Care Printing Table Hand Name Role Phone Sal Wright DO Primary Care Provider [phone] Kilo Wang MD Unavailable [phone] Juan Haddad MD Unavailable [phone] Dasha Sheppard PA-C Primary Care Provider Chato Mosquera MD Unavailable Trey Jennings MD Unavailable +[phone] Guerita Elliott-C Unavailable +[phone] Matthew Rushing MD Unavailable +[phone] Matthew Rushing MD Unavailable +[phone] Matthew Rushing MD Unavailable +[phone] Matthew Rushing MD Unavailable +[phone] Matthew Rushing MD Unavailable +[phone] Matthew Rushing MD Unavailable +[phone] Matthew Rushing MD Unavailable +[phone] Matthew Rushing MD Unavailable +[phone] Matthew Rushing MD Unavailable +[phone] Matthew Rushing MD Unavailable +[phone] Matthew Rushing MD Unavailable +[phone] Matthew Rushing MD Unavailable +[phone] Matthew Rushing MD Unavailable +[phone] Matthew Rushing MD Unavailable +[phone] Trey Jennings MD Unavailable +4 -5 Guerita Elliott PA-C Unavailable + -5 Matthew Rushing MD Unavailable +[phone] Guerita Elliott J PA-C Unavailable +4 -5 Matthew Rushing MD Unavailable +[phone] Matthew Rushing MD Unavailable +[phone] Guerita Elliott PA-C Unavailable +4 -5 Guerita Elliott PA-C Unavailable + -5 Matthew Rushing MD Unavailable +[phone] Guerita Elliott J PA-C Unavailable +4 -5 Matthew Rushing MD Unavailable +[phone] Matthew Rushing MD Unavailable +[phone] Guerita Elliott PA-C Unavailable +4 -5 Matthew Rushing MD Unavailable +[phone] Guerita Elliott PA-C Unavailable + -5 Matthew Rushing MD Unavailable +[phone] Guerita Elliott PA-C Unavailable +4 -5 Guerita Elliott PA-C Unavailable +4 -5 Matthew Rushing MD Unavailable +[phone] Guerita Elliott PA-C Unavailable +[phone] Matthew Rushing MD Unavailable +[phone] Guerita Elliott PA-C Unavailable +4 -5 Matthew Rushing MD Unavailable +[phone] Lilli Elliotther Alvarez PA-C Unavailable +4 -5 Matthew Rushing MD Unavailable +[phone] Matthew Rushing MD Unavailable +[phone] Lilli Elliotther Alvarez PA-C Unavailable +4 -5 Matthew Rushing MD Unavailable +[phone] Lilli Elliotther Alvarez PA-C Unavailable +4 [phone] Lilli Elliotther J PA-C Unavailable +4 -5 Matthew Rushing MD Unavailable +[phone] Matthew Rushing MD Unavailable +[phone] Earl Guerita Alvarez PA-C Unavailable +4 -5 Earl Guerita Alvarez PA-C Unavailable +4 -4995 Matthew Rushing MD Unavailable +[phone] Matthew Rushing MD Unavailable +[phone] Earl Guerita Alvarez PA-C Unavailable +4 -5 Prospect Guerita Alvarez PA-C Unavailable +4 -4995 Matthew Rushing MD Unavailable +[phone] Matthew Rushing MD Unavailable +[phone] Lilli Elliotther Alvarez PA-C Unavailable +4 -4995 Guerita Elliott PA-C Unavailable +4 -4995 Matthew Rushing MD Unavailable +[phone] Matthew Rushing MD Unavailable +[phone] Guerita Elliott PA-C Unavailable +[phone] Guerita Elliott PA-C Unavailable +4 -5 Matthew Rushing MD Unavailable +[phone] Guerita Elliott PA-C Unavailable +4 [phone] Matthew Rushing MD Unavailable +[phone] Matthew Rushing MD Unavailable +[phone] Earl Guerita Alvarez PA-C Unavailable +4 -5 ProspectGuerita pino J PA-C Unavailable + -5 Matthew Rushing MD Unavailable +[phone] Matthew Rushing MD Unavailable +[phone] Guerita Elliott J PA-C Unavailable +4 -5 Guerita Elliott PA-C Unavailable +4 -5 Matthew Rushing MD Unavailable +[phone] Matthew Rushing MD Unavailable +[phone] Guerita Elliott PA-C Unavailable + -5 Matthew Rushing MD Unavailable +[phone] Guerita Elliott PA-C Unavailable +4 -5 Matthew Rushing MD Unavailable +[phone] Guerita Elliott PA-C Unavailable +4 -5 Guerita Elliott PA-C Unavailable +4 -5 Matthew Rushing MD Unavailable Matthew Rushing MD Unavailable +[phone] Guerita Elliott PA-C Unavailable +4 -5 Guerita Elliott PA-C Unavailable +4 -4995 Matthew Rushing MD Unavailable +[phone] Matthew Rushing MD Unavailable +[phone] Guerita Elliott PA-C Unavailable +4 -5 Matthew Rushing MD Unavailable +[phone] Earl Guerita Alvarez PA-C Unavailable +4 -5 Matthew Rushing MD Unavailable +[phone] Lilli Elliotther J PA-C Unavailable +4 -5 Lilli Elliotther J PA-C Unavailable +4 -5 Matthew Rushing MD Unavailable +[phone] Matthew Rushing MD Unavailable +[phone] Earl Guerita Alvarez PA-C Unavailable +4 -[phone] Earl Guerita J PA-C Unavailable +4 -5 Matthew Rushing MD Unavailable +[phone] Guerita Elliott PA-C Unavailable +4 -5 Matthew Rushing MD Unavailable +[phone] Matthew Rushing MD Unavailable +[phone] Earl Guerita Alvarez PA-C Unavailable +4 -5 Matthew Rushing MD Unavailable +[phone] Earl Guerita Alvarez PA-C Unavailable +4 -5 Matthew Rushing MD Unavailable +[phone] Guerita Elliott PA-C Unavailable +4 -5 Guerita Elliott PA-C Unavailable +4 -5 Matthew Rushing MD Unavailable +[phone] Matthew Rushing MD Unavailable Guerita Elliott J PA-C Unavailable +4 -5 Matthew Rushing MD Unavailable +[phone] Guerita Elliott PA-C Unavailable +[phone] Matthew Rushing MD Unavailable +[phone] Guerita Elliott PA-C Unavailable +[phone] Guerita Elliott PA-C Unavailable +4 -4994 Matthew Rushing MD Unavailable +[phone] Guerita Elliott PA-C Unavailable + -[phone] Matthew Rushing MD Unavailable +[phone] Guerita Elliott PA-C Unavailable + -[phone] Matthew Rushing MD Unavailable +[phone] Guerita Elliott PA-C Unavailable +[phone] Matthew Rushing MD Unavailable +[phone] Guerita Elliott PA-C Unavailable +[phone] Matthew Rushing MD Unavailable +[phone] Guerita Elliott PA-C Unavailable +[phone] Matthew Rushing MD Unavailable +[phone] Txfr Provider Family [facility], Temporary Primary Care Provider Matthew Rushing MD Unavailable Guerita Elliott-C Unavailable +[phone] Matthew Rushing MD Unavailable +[phone] Guerita Elliott-C Unavailable +[phone] Matthew Rushing MD Unavailable +[phone] Guerita Elliott PA-C Unavailable +[phone] Guerita Elliott-C Unavailable +[phone] Matthew Rushing MD Unavailable +[phone] Guerita Elliott PA-C Unavailable +[phone] Matthew Rushing MD Unavailable +[phone] Matthew Rushing MD Unavailable +[phone] Guerita Elliott-C Unavailable +4 -5 Matthew Rushing MD Unavailable +[phone] Guerita Elliott Kim PA-C Unavailable + -5 Guerita Elliott J PA-C Unavailable +4 -5 Matthew Rushing MD Unavailable Matthew Rushing MD Unavailable +[phone] Guerita Elliott J PA-C Unavailable +14 -5 Matthew Rushing MD Unavailable +[phone] Guerita Elliott Kim PA-C Unavailable +4 -5 Matthew Rushing MD Unavailable +[phone] ProspectLilli pinoher Alvarez PA-C Unavailable +4 -5 Matthew Rushing MD Unavailable +[phone] Guerita Elliott J PA-C Unavailable +4 -4995 Guerita Elliott Kim PA-C Unavailable +4 -4995 Matthew Rushing MD Unavailable +[phone] Matthew Rushing MD Unavailable +[phone] Earl Guerita J PA-C Unavailable +4 -5 Matthew Rushing MD Unavailable +[phone] Guerita Elliott Kim PA-C Unavailable +4 -4995 Matthew Rushing MD Unavailable +[phone] Guerita Elliott Kim PA-C Unavailable +4 -4995 Earl Guerita J PA-C Unavailable +4 -4995 Matthew Rushing MD Unavailable +[phone] Matthew Rushing MD Unavailable +[phone] Guerita Elliott PA-C Unavailable +4 -4995 Guerita Elliott PA-C Unavailable +4 -4995 Matthew Rushing MD Unavailable +[phone] Lilli Elliotther Alvarez PA-C Unavailable +4 -4995 Matthew Rushing MD Unavailable +[phone] Lilli Elliotther Alvarez PA-C Unavailable +4 -4995 Matthew Rushing MD Unavailable +[phone] Matthew Rushing MD Unavailable Lilli Elliotther Alvarez PA-C Unavailable +[phone] Matthew Del Toro MD Primary Care Provider [phone] Lilli Elliotther Alvarez PA-C Unavailable +[phone] Matthew Rushing MD Unavailable [phone] Earl Guerita Alvarez PA-C Unavailable +4 -4995 Matthew Rushing MD Unavailable +[phone] Earl Guerita Alvarez PA-C Unavailable +[phone] Matthew Rushing MD Unavailable +[phone] Earl, Guerita Alvarez PA-C Unavailable +4 -4995 Matthew Rushing MD Unavailable Earl, Guerita Alvarez PA-C Unavailable +4 -4995 Matthew Rushing MD Unavailable +[phone] Matthew Rushing MD Unavailable +[phone] Earl, Guerita Alvarez PA-C Unavailable +[phone] Guerita Elliott PA-C Unavailable +4 -4995 Matthew Rushing MD Unavailable [phone] Matthew Rushing MD Unavailable +[phone] Guerita Elliott PA-C Unavailable +[phone] Matthew Rushing MD Unavailable +[phone] Guerita Elliott Kim PA-C Unavailable +[phone] Lilli Elliotther J PA-C Unavailable +4 -4995 Matthew Rushing MD Unavailable [phone] Matthew Rushing MD Unavailable +[phone] Guerita Elliott J PA-C Unavailable +[phone] Lilli Elliotther J PA-C Unavailable +14 [phone] Matthew Rushing MD Unavailable +[phone] Lilli Elliotther J PA-C Unavailable +4 -4995 Matthew Rushing MD Unavailable +[phone] Matthew Rushing MD Unavailable [phone] Lilli Elliotther Alvarez PA-C Unavailable +4 -4995 Matthew Rushing MD Unavailable +[phone] Guerita Elliott Kim PA-C Unavailable +4 -4995 Matthew Rushing MD Unavailable +[phone] Lilli Elliotther Alvarez PA-C Unavailable +[phone] Earl Guerita Alvarez PA-C Unavailable +[phone] Matthew Rushing MD Unavailable +[phone] ProspectGuerita PA-C Unavailable +4 -4995 Matthew Rushing MD Unavailable +[phone] Earl, Guerita Alvarez PA-C Unavailable +[phone] Matthew Rushing MD Unavailable +[phone] Matthew Rushing MD Unavailable +[phone] Guerita Elliott PA-C Unavailable +[phone] Matthew Rushing MD Unavailable +[phone] Guerita Elliott PA-C Unavailable Matthew Rushing MD Unavailable +[phone] Guerita Elliott Kim MATOSC Unavailable Guerita Elliott Kim SIDDIQI-C Unavailable +[phone] Matthew Rushing MD Unavailable +[phone] Lilli Elliotther Kim MATOSC Unavailable Matthew Rushing MD Unavailable +[phone] Earl, Guerita MATOSC Unavailable Matthew Rushing MD Unavailable Lilli Elliotther Kim MATOSC Unavailable +[phone] Matthew Rushing MD Unavailable [phone] Earl Guerita MATOSC Unavailable +[phone] Matthew Rushing MD Unavailable [phone] Encounter Details Date Type Department Care Team (Late st Contact Info) Description 04/27/2016 Orders Only [facility] [address] [facility] [address] [place] [address] Delfino Becerril MD [address] [facility] [address] [place] [address] Social History Tobacco Use Types Packs/Day Years [...] Associated Diagnosis Comments SURGICAL PATHOLOGY REPORT Routine 04/22/2016 documented in this encounter Results * SURGICAL PATHOLOGY REPORT (04/22/2016) 04/22/2016 Narrative Arlin Waite - 04/22/2016 This result was scanned into the electronic health record.?? Scanned results are not yet available for viewing [facility] Please contact your provider for more information. Delfino Becerril MD PATHOLOGY/CYTOLOGY ORDERABL ES Final Result documented in this encounter Visit Diagnoses Not on filedocumented in this encounter Additional Health Concerns Infection Onset Date Last Indicated Resolved Time Symptomatic COVID PUI 06/07/2020 06/07/20202019 5:59 AM EST Asymptomatic COVID PUI 06/07/2020 06/07/202006/10 5:59 AM EST Symptomatic COVID PUI 03/26/2021 03/27/20212020 7:16 PM EDT COVID-19 03/27/2021 03/27/2021 04/17/2021 8:34 PM EDT documented as of this encounter Care Teams Printing Table Hand Relationship Specialty Start Date End Date Sal Wright DO PCP - General 08/28/12 04/11/18 Dasha Sheppard PA-C [address] [place] [address] PCP - General Family Practice 04/12/18 07/10/23 Txfr Provider Family Medicine [place] [address] [facility] [address] [place] [address] PCP - General Family Practice 07/11/23 12/11/23 Matthew Del Toro MD [address] [facility] [address] [place] [phone] PCP - General Family Practice 12/12/23 Kilo Wang MD Consulting Physician Neurology 08/30/16 12/01/21 Juan Haddad MD [address] [place] [address] Otolaryngology 09/23/17 Chato Mosquera MD [address] [place] [address] [address] [place] [address] Manager Product Support Endocrinology, Diabetes & Metabolism 12/07/18 12/10/18 Trey Jennings MD [address] [facility] [address] [place] [address] Consulting Physician Cardiothoracic Surgery 07/13/21 Guerita Elliott PA-C [address] [address] [facility] Specialist Cardiothoracic Surgery 01/03/22 06/27/22 Matthew Rushing MD [address] [place] [address] [facility] Specialist Cardiology - General 03/07/22 03/28/22 Matthew Rushing MD [address] [place] [address] [facility] Specialist Cardiology - General 04/04/22 04/04/22 Matthew Rushing MD [address] [place] [address] 599[address] [facility] Specialist Cardiology - General 04/11/22 04/11/22 Matthew Rushing MD [address] [place] [address] [facility] Specialist Cardiology - General 04/18/22 04/18/22 Matthew Rushing MD [address] [place] [address]10[address] [facility] Specialist Cardiology - General 04/25/22 04/25/22 Matthew Rushing MD [address] [place] [address] [facility] Specialist Cardiology - General 05/02/22 05/02/22 Matthew Rushing MD [address] [place] [address]3233 [facility] Specialist Cardiology - General 05/09/22 05/09/22 Matthew Rushing MD [address] [place] [address] [facility] Specialist Cardiology - General 05/16/22 05/16/22 Matthew Rushing MD [address] [place] [address] 58565 [facility] Specialist Cardiology - General 05/23/22 05/23/22 Matthew Rushing MD [address] [place] [address] 50[address] [facility] Specialist Cardiology - General 05/30/22 05/30/22 Matthew Rushing MD [address] [place] [address] [facility] Specialist Cardiology - General 06/06/22 06/06/22 Matthew Rushing MD [address] [place] [address] 539[address] [facility] Specialist Cardiology - General 06/13/22 06/13/22 Matthew Rushing MD [address] [place] [address] 16960 [facility] Specialist Cardiology - General 06/20/22 06/20/22 Matthew Rushing MD [address] [place] [address] [facility] Specialist Cardiology - General 06/27/22 06/27/22 Trey Jennings MD [address] [place] [address] [facility] Specialist Cardiothoracic Surgery 06/27/22 Guerita Elliott PA-C [address] [place] [address] [facility] Specialist Cardiothoracic Surgery 07/04/22 3 Matthew Rushing MD [address] [place] [address] [facility] Specialist Cardiology - General 07/04/22 07/04/22 Guerita Elliott PA-C [address] [place] [address] 09794 [facility] Specialist Cardiothoracic Surgery 07/11/22 3 Matthew Rushing MD [address] [place] [address] 39663 [facility] Specialist Cardiology - General 07/11/22 07/11/22 Matthew Rushing MD [address] [place] [address] 12522 [facility] Specialist Cardiology - General 07/18/22 07/18/22 Guerita Elliott PA-C [address] [address] [facility] Specialist Cardiothoracic Surgery 07/18/22 3 Guerita Elliott PA-C [address] [address] [facility] Specialist Cardiothoracic Surgery 07/25/22 07/25/22 Matthew Rushing MD [address] [place] [address] [facility] Specialist Cardiology - General 07/25/22 07/25/22 Guerita Elliott PA-C [address] [address] [facility] Specialist Cardiothoracic Surgery 08/01/22 3 Matthew Rushing MD [address] [place] [address] 233[address] [facility] Specialist Cardiology - General 08/01/22 08/01/22 Matthew Rushing MD [address] [place] [address] [facility] Specialist Cardiology - General 08/08/22 08/08/22 Guerita Elliott PA-C [address] [address] [facility] Specialist Cardiothoracic Surgery 08/08/22 3 Matthew Rushing MD [address] [place] [address] 512[address] [facility] Specialist Cardiology - General 08/15/22 08/15/22 Guerita Elliott PA-C [address] [address] [facility] Specialist Cardiothoracic Surgery 08/15/22 3 Matthew Rushing MD [address] [place] [address] 419[address] [facility] Specialist Cardiology - General 08/22/22 08/22/22 Guerita Elliott PA-C [address] [address] [facility] Specialist Cardiothoracic Surgery 08/22/22 08/22/22 Guerita Elliott PA-C [address] [address] [facility] Specialist Cardiothoracic Surgery 08/29/22 3 Matthew Rushing MD [address] [place] [address] [facility] Specialist Cardiology - General 08/29/22 08/29/22 Guerita Elliott PA-C [address] [address] [facility] Specialist Cardiothoracic Surgery 09/05/22 3 Matthew Rushing MD [address] [place] [address] [facility] Specialist Cardiology - General 09/05/22 09/05/22 Guerita Elliott PA-C [address] [address] [facility] Specialist Cardiothoracic Surgery 09/12/22 3 Matthew Rushing MD [address] [place] [address] [facility] Specialist Cardiology - General 09/12/22 09/12/22 Guerita Elliott PA-C [address] [address] [facility] Specialist Cardiothoracic Surgery 09/19/22 09/19/22 Matthew Rushing MD [address] [place] [address] 426[address] [facility] Specialist Cardiology - General 09/19/22 09/19/22 Matthew Rushing MD [address] [place] [address] 025[address] [facility] Specialist Cardiology - General 09/26/22 09/26/22 Guerita Elliott PA-C [address] [address] [facility] Specialist Cardiothoracic Surgery 09/26/22 09/26/22 Matthew Rushing MD [address] [place] [address] [facility] Specialist Cardiology - General 10/03/22 10/03/22 Guerita Elliott PA-C [address] [address] [facility] Specialist Cardiothoracic Surgery 10/03/22 3 Guerita Elliott PA-C [address] [address] [facility] Specialist Cardiothoracic Surgery 10/10/22 3 Matthew Rushing MD [address] [place] [address] [facility] Specialist Cardiology - General 10/10/22 10/10/22 Matthew Rushing MD [address] [place] [address] [facility] Specialist Cardiology - General 10/17/22 10/17/22 Guerita Elliott PA-C [address] [address] [facility] Specialist Cardiothoracic Surgery 10/17/22 3 Guerita Elliott PA-C [address] [address] [facility] Specialist Cardiothoracic Surgery 10/24/22 10/24/22 Matthew Rushing MD [address] [place] [address] [facility] Specialist Cardiology - General 10/24/22 10/24/22 Matthew Rushing MD [address] [place] [address] [facility] Specialist Cardiology - General 10/31/22 10/31/22 Guerita Elliott PA-C [address] [address] [facility] Specialist Cardiothoracic Surgery 10/31/22 3 Guerita Elliott PA-C [address] [address] [facility] Specialist Cardiothoracic Surgery 11/07/22 3 Matthew Rushing MD [address] [place] [address] [facility] Specialist Cardiology - General 11/07/22 11/07/22 Matthew Rushing MD [address] [place] [address] 411[address] [facility] Specialist Cardiology - General 11/14/22 11/14/22 Guerita Elliott PA-C [address] [address] [facility] Specialist Cardiothoracic Surgery 11/14/22 3 Guerita Elliott PA-C [address] [address] [facility] Specialist Cardiothoracic Surgery 11/21/22 11/21/22 Matthew Rushing MD [address] [place] [address] [facility] Specialist Cardiology - General 11/21/22 11/21/22 Matthew Rushing MD [address] [place] [address] [facility] Specialist Cardiology - General 11/28/22 11/28/22 Guerita Elliott PA-C [address] [address] [facility] Specialist Cardiothoracic Surgery 11/28/22 3 Guerita Elliott PA-C [address] [place] [address] [facility] Specialist Cardiothoracic Surgery 12/05/22 3 Matthew Rushing MD [address] [place] [address] 483[address] [facility] Specialist Cardiology - General 12/05/22 12/05/22 Guerita Elliott PA-C [address] [place] [address] [facility] Specialist Cardiothoracic Surgery 12/12/22 3 Matthew Rushing MD [address] [place] [address] 229[address] [facility] Specialist Cardiology - General 12/12/22 12/12/22 Matthew Rushing MD [address] [place] [address] [facility] Specialist Cardiology - General 12/19/22 12/19/22 Guerita Elliott PA-C [address] [address] [facility] Specialist Cardiothoracic Surgery 12/19/22 12/19/22 Guerita Elliott PA-C [address] [address] [facility] Specialist Cardiothoracic Surgery 12/26/22 12/26/22 Matthew Rushing MD [address] [place] [address] 140[address] [facility] Specialist Cardiology - General 12/26/22 12/26/22 Matthew Rushing MD [address] [place] [address] [facility] Specialist Cardiology - General 01/02/23 01/02/23 Guerita Elliott PA-C [address] [address] [facility] Specialist Cardiothoracic Surgery 01/02/23 3 Guerita Elliott PA-C [address] [address] [facility] Specialist Cardiothoracic Surgery 01/09/23 3 Matthew Rushing MD [address] [place] [address] [facility] Specialist Cardiology - General 01/09/23 01/09/23 Matthew Rushing MD [address] [place] [address] 611[address] [facility] Specialist Cardiology - General 01/16/23 01/16/23 Guerita Elliott PA-C [address] [place] [address] 07[address] [facility] Specialist Cardiothoracic Surgery 01/16/23 3 Matthew Rushing MD [address] [place] [address] 454[address] [facility] Specialist Cardiology - General 01/23/23 01/23/23 Guerita Elliott PA-C [address] [place] [address] 406[address] [facility] Specialist Cardiothoracic Surgery 01/23/23 01/23/23 Matthew Rushing MD [address] [place] [address] 09[address] [facility] Specialist Cardiology - General 01/30/23 01/30/23 Guerita Elliott PA-C [address] [place] [address] [facility] Specialist Cardiothoracic Surgery 01/30/23 3 Guerita Elliott PA-C [address] [place] [address] 259[address] [facility] Specialist Cardiothoracic Surgery 02/06/23 3 Matthew Rushing MD [address] [place] [address] [facility] Specialist Cardiology - General 02/06/23 02/06/23 Matthew Rushing MD [address] [place] [address] [facility] Specialist Cardiology - General 02/13/23 02/13/23 Guerita Elliott PA-C [address] [address] [facility] Specialist Cardiothoracic Surgery 02/13/23 Guerita Elliott PA-C [address] [address] [facility] Specialist Cardiothoracic Surgery 02/20/23 02/20/23 Matthew Rushing MD [address] [place] [address] 800[address] [facility] Specialist Cardiology - General 02/20/23 02/20/23 Matthew Rushing MD [address] [place] [address] 58[address] [facility] Specialist Cardiology - General 02/27/23 02/27/23 Guerita Elliott PA-C [address] [address] [facility] Specialist Cardiothoracic Surgery 02/27/23 3 Matthew Rushing MD [address] [place] [address] [facility] Specialist Cardiology - General 03/06/23 03/06/23 Guerita Elliott PA-C [address] [address] [address] [facility] Specialist Cardiothoracic Surgery 03/06/23 3 Matthew Rushing MD [address] [place] [address]180 [facility] Specialist Cardiology - General 03/13/23 03/13/23 Guerita Elliott PA-C [address] [address] [facility] Specialist Cardiothoracic Surgery 03/13/23 3 Guerita Elliott PA-C [address] [address] [facility] Specialist Cardiothoracic Surgery 03/20/23 3 Matthew Rushing MD [address] [place] [address] 7[address]88 [facility] Specialist Cardiology - General 03/20/23 03/20/23 Matthew Rushing MD [address] [place] [address] 98501 [facility] Specialist Cardiology - General 03/27/23 03/27/23 Guerita Elliott PA-C [address] [address] [facility] Specialist Cardiothoracic Surgery 03/27/23 3 Guerita Elliott PA-C [address] [place] [address] [facility] Specialist Cardiothoracic Surgery 04/03/23 Matthew Rushing MD [address] [place] [address] 19390 [facility] Specialist Cardiology - General 04/03/23 04/03/23 Guerita Elliott PA-C [address] [address] [facility] Specialist Cardiothoracic Surgery 04/10/23 Matthew Rushing MD [address] [place] [address] 24690 [facility] Specialist Cardiology - General 04/10/23 04/10/23 Matthew Rushing MD [address] [place] [address] 64173 [facility] Specialist Cardiology - General 04/17/23 04/17/23 Guerita Elliott PA-C [address] [address]85 [facility] Specialist Cardiothoracic Surgery 04/17/23 Matthew Rushing MD [address] [place] [address] 52913 [facility] Specialist Cardiology - General 04/24/23 04/24/23 Guerita Elliott PA-C [address] [address] [facility] Specialist Cardiothoracic Surgery 04/24/23 Matthew Rushing MD [address] [place] [address] 87475 [facility] Specialist Cardiology - General 05/01/23 05/01/23 Guerita Elliott PA-C [address] [address] [facility] Specialist Cardiothoracic Surgery 05/01/23 Guerita Elliott PA-C [address] 8[address] [facility] Specialist Cardiothoracic Surgery 05/08/23 Matthew Rushing MD [address] [place] [address] 24335 [facility] Specialist Cardiology - General 05/08/23 05/08/23 Matthew Rushing MD [address] [place] [address] 57825 [facility] Specialist Cardiology - General 05/15/23 05/15/23 Guerita Elliott PA-C [address] 31768 [facility] Specialist Cardiothoracic Surgery 05/15/23 Matthew Rushing MD [address] [place] [address] 04707 [facility] Specialist Cardiology - General 05/22/23 05/22/23 Guerita Elliott PA-C [address] [place] [address] [facility] Specialist Cardiothoracic Surgery 05/22/23 3 Matthew Rushing MD [address] [place] [address] 13560 [facility] Specialist Cardiology - General 05/29/23 05/29/23 Guerita Elliott PA-C [address] [address] [facility] Specialist Cardiothoracic Surgery 05/29/23 Guerita Elliott PA-C [address] [address] [facility] Specialist Cardiothoracic Surgery 06/05/23 Matthew Rushing MD [address] [place] [address] 08183 [facility] Specialist Cardiology - General 06/05/23 06/05/23 Guerita Elliott PA-C [address] [address] [facility] Specialist Cardiothoracic Surgery 06/12/23 Matthew Rushing MD [address] [place] [address] 77899 [facility] Specialist Cardiology - General 06/12/23 06/12/23 Guerita Elliott PA-C [address] [address] [facility] Specialist Cardiothoracic Surgery 06/19/23 Matthew Rushing MD [address] [place] [address] 24307 [facility] Specialist Cardiology - General 06/19/23 06/19/23 Guerita Elliott PA-C [address] [place] [address] 96578 [facility] Specialist Cardiothoracic Surgery 06/26/23 06/26/23 Matthew Rushing MD [address] [place] [address] 96226 [facility] Specialist Cardiology - General 06/26/23 06/26/23 Guerita Elliott PA-C [address] [place] [address] 01524 [facility] Specialist Cardiothoracic Surgery 07/03/23 4 Matthew Rushing MD [address] [place] [address] 27975 [facility] Specialist Cardiology - General 07/03/23 07/03/23 Guerita Elliott PA-C [address] [place] [address] 68115 [facility] Specialist Cardiothoracic Surgery 07/10/23 4 Matthew Rushing MD [address] [place] [address] 98057 [facility] Specialist Cardiology - General 07/10/23 07/10/23 Matthew Rushing MD [address] [place] [address] 29323 [facility] Specialist Cardiology - General 07/17/23 07/17/23 Guerita Elliott PA-C [address] 9[address]27 [facility] Specialist Cardiothoracic Surgery 07/17/23 4 Matthew Rushing MD [address] [place] [address] 96986 [facility] Specialist Cardiology - General 07/24/23 07/24/23 Guerita Elliott PA-C [address] 7[address] [facility] Specialist Cardiothoracic Surgery 07/24/23 07/24/23 Matthew Rushing MD [address] [place] [address] 84129 [facility] Specialist Cardiology - General 07/31/23 07/31/23 Guerita Elliott PA-C [address] [address] [facility] Specialist Cardiothoracic Surgery 07/31/23 4 Guerita Elliott PA-C [address] [address]75 [facility] Specialist Cardiothoracic Surgery 08/07/23 4 Matthew Rushing MD [address] [place] [address] 10487 [facility] Specialist Cardiology - General 08/07/23 08/07/23 Guerita Elliott PA-C [address] [address] [facility] Specialist Cardiothoracic Surgery 08/14/23 4 Matthew Rushing MD [address] [place] [address] 19675 [facility] Specialist Cardiology - General 08/14/23 08/14/23 Matthew Rushing MD [address] [place] [address] 33750 [facility] Specialist Cardiology - General 08/21/23 08/21/23 Guerita Elliott PA-C [address] [place] [address] 52980 [facility] Specialist Cardiothoracic Surgery 08/21/23 08/21/23 Matthew Rushing MD [address] [place] [address] 69066 [facility] Specialist Cardiology - General 08/28/23 08/28/23 Guerita Elliott PA-C [address] [place] [address] 72543 [facility] Specialist Cardiothoracic Surgery 08/28/23 4 Guerita Elliott PA-C [address] [address] [facility] Specialist Cardiothoracic Surgery 09/04/23 4 Matthew Rushing MD [address] [place] [address] 44072 [facility] Specialist Cardiology - General 09/04/23 09/04/23 Matthew Rushing MD [address] [place] [address] 13437 [facility] Specialist Cardiology - General 09/11/23 09/11/23 Guerita Elliott PA-C [address] [address] [facility] Specialist Cardiothoracic Surgery 09/11/23 4 Matthew Rushing MD [address] [place] [address] 41061 [facility] Specialist Cardiology - General 09/18/23 09/18/23 Guerita Elliott PA-C [address] [place] [address] 75952 [facility] Specialist Cardiothoracic Surgery 09/18/23 4 Matthew Rushing MD [address] [place] [address] 89276 [facility] Specialist Cardiology - General 09/25/23 09/25/23 Guerita Elliott PA-C [address] [place] [address] 06958 [facility] Specialist Cardiothoracic Surgery 09/25/23 09/25/23 Matthew Rushing MD [address] [place] [address] 39967 [facility] Specialist Cardiology - General 10/02/23 10/02/23 Guerita Elliott PA-C [address] [address]894 [facility] Specialist Cardiothoracic Surgery 10/02/23 4 Guerita Elliott PA-C [address] [address]97 [facility] Specialist Cardiothoracic Surgery 10/09/23 4 Matthew Rushing MD [address] [place] [address] 40010 [facility] Specialist Cardiology - General 10/09/23 10/09/23 Matthew Rushing MD [address] [place] [address] 45469 [facility] Specialist Cardiology - General 10/16/23 10/16/23 Guerita Elliott PA-C [address] [address] [facility] Specialist Cardiothoracic Surgery 10/16/23 4 Matthew Rushing MD [address] [place] [address] 36212 [facility] Specialist Cardiology - General 10/23/23 10/23/23 Guerita Elliott PA-C [address] 7[address]88 [facility] Specialist Cardiothoracic Surgery 10/23/23 10/23/23 Matthew Rushing MD [address] [place] [address] 38207 [facility] Specialist Cardiology - General 10/30/23 10/30/23 Guerita Elliott PA-C [address] [address]16 [facility] Specialist Cardiothoracic Surgery 10/30/23 4 Guerita Elliott PA-C [address] [address] [facility] Specialist Cardiothoracic Surgery 11/06/23 4 Matthew Rushing MD [address] [place] [address] 12599 [facility] Specialist Cardiology - General 11/06/23 11/06/23 Matthew Rushing MD [address] [place] [address] 73314 [facility] Specialist Cardiology - General 11/13/23 11/13/23 Guerita Elliott PA-C [address] [address] [facility] Specialist Cardiothoracic Surgery 11/13/23 4 Guerita Elliott PA-C [address] [address]67 [facility] Specialist Cardiothoracic Surgery 11/20/23 11/20/23 Matthew Rushing MD [address] [place] [address] 04134 [facility] Specialist Cardiology - General 11/20/23 11/20/23 Guerita Elliott PA-C [address] [address]271 [facility] Specialist Cardiothoracic Surgery 11/27/23 11/27/23 Matthew Rushing MD [address] [place] [address] 71431 [facility] Specialist Cardiology - General 11/27/23 11/27/23 Guerita Elliott PA-C [address] 6[address]98 [facility] Specialist Cardiothoracic Surgery 12/04/23 4 Matthew Rushing MD [address] [place] [address] 59625 [facility] Specialist Cardiology - General 12/04/23 12/04/23 Matthew Rushing MD [address] [place] [address] 12594 [facility] Specialist Cardiology - General 12/11/23 12/11/23 Guerita Elliott PA-C [address] 7[address]83 [facility] Specialist Cardiothoracic Surgery 12/11/23 4 Guerita Elliott PA-C [address] [address] [facility] Specialist Cardiothoracic Surgery 12/18/23 4 Matthew Rushing MD [address] [place] [address] 60723 [facility] Specialist Cardiology - General 12/18/23 12/18/23 Guerita Elliott PA-C [address] 29932 [facility] Specialist Cardiothoracic Surgery 12/25/23 12/25/23 Matthew Rushing MD [address] [place] [address] 14015 [facility] Specialist Cardiology - General 12/25/23 12/25/23 Guerita Elliott PA-C [address] 95791 [facility] Specialist Cardiothoracic Surgery 01/01/24 4 Matthew Rushing MD [address] [place] [address] 44275 [facility] Specialist Cardiology - General 01/01/24 01/01/24 Guerita Elliott PA-C [address] [place] [address] 12579 [facility] Specialist Cardiothoracic Surgery 01/08/24 4 Matthew Rushing MD [address] [place] [address] 34894 [facility] Specialist Cardiology - General 01/08/24 01/08/24 Guerita Elliott PA-C [address] [place] [address] 89715 [facility] Specialist Cardiothoracic Surgery 01/15/24 4 Matthew Rushing MD [address] [place] [address] 58832 [facility] Specialist Cardiology - General 01/15/24 01/15/24 Matthew Rushing MD [address] [place] [address] 82972 [facility] Specialist Cardiology - General 01/22/24 01/22/24 Guerita Elliott PA-C [address] [address] [facility] Specialist Cardiothoracic Surgery 01/22/24 01/22/24 Guerita Elliott PA-C [address] 22092 [facility] Specialist Cardiothoracic Surgery 01/29/24 4 Matthew Rushing MD [address] [place] [address] 17439 [facility] Specialist Cardiology - General 01/29/24 01/29/24 Matthew Rushing MD [address] [place] [address] 77372 [facility] Specialist Cardiology - General 02/05/24 02/05/24 Guerita Elliott PA-C [address] [address] [facility] Specialist Cardiothoracic Surgery 02/05/24 4 Matthew Rushing MD [address] [place] [address] 43960 [facility] Specialist Cardiology - General 02/12/24 02/12/24 Guerita Elliott PA-C [address] 70745 [facility] Specialist Cardiothoracic Surgery 02/12/24 4 Guerita Elliott PA-C [address] [address]01 [facility] Specialist Cardiothoracic Surgery 02/19/24 02/19/24 Matthew Ruhsing MD [address] [place] [address] 54988 [facility] Specialist Cardiology - General 02/19/24 02/19/24 Matthew Rushing MD [address] [place] [address] 52253 [facility] Specialist Cardiology - General 02/26/24 02/26/24 Guerita Elliott PA-C [address] 39489 [facility] Specialist Cardiothoracic Surgery 02/26/24 02/26/24 Guerita Elliott PA-C [address] 46610 [facility] Specialist Cardiothoracic Surgery 03/04/24 4 Matthew Rushing MD [address] [place] [address] 91016 [facility] Specialist Cardiology - General 03/04/24 03/04/24 Guerita Elliott PA-C [address] 36390 [facility] Specialist Cardiothoracic Surgery 03/11/24 4 Matthew Rushing MD [address] [place] [address] 70441 [facility] Specialist Cardiology - General 03/11/24 03/11/24 Matthew Rushing MD [address] [place] [address] 86940 [facility] Specialist Cardiology - General 03/18/24 03/18/24 Guerita Elliott PA-C [address] 10609 [facility] Specialist Cardiothoracic Surgery 03/18/24 4 Matthew Rushing MD [address] [place] [address] 63753 [facility] Specialist Cardiology - General 03/25/24 03/25/24 Guerita Elliott PA-C [address] 29167 [facility] Specialist Cardiothoracic Surgery 03/25/24 4 Matthew Rushing MD [address] [place] [address] 40106 [facility] Specialist Cardiology - General 04/01/24 04/01/24 Guerita Elliott PA-C [address] 91127 [facility] Specialist Cardiothoracic Surgery 04/01/24 Guerita Elliott PA-C [address] 6[address]32 [facility] Specialist Cardiothoracic Surgery 04/08/24 Matthew Rushing MD [address] [place] [address] 43028 [facility] Specialist Cardiology - General 04/08/24 04/08/24 Guerita Elliott PA-C [address] 97661 [facility] Specialist Cardiothoracic Surgery 04/15/24 Matthew Rushing MD [address] [place] [address] 58624 [facility] Specialist Cardiology - General 04/15/24 04/15/24 Guerita Elliott PA-C [address] [address]227 [facility] Specialist Cardiothoracic Surgery 04/22/24 4 Matthew Rushing MD [address] [place] [address] 58617 [facility] Specialist Cardiology - General 04/22/24 04/22/24 Matthew Rushing MD [address] [place] [address] 30652 [facility] Specialist Cardiology - General 04/29/24 04/29/24 Guerita Elliott PA-C [address] 50094 [facility] Specialist Cardiothoracic Surgery 04/29/24 Matthew Rushing MD [address] [place] [address] 60409 [facility] Specialist Cardiology - General 05/06/24 05/06/24 Guerita Elliott PA-C [address] 57298 [facility] Specialist Cardiothoracic Surgery 05/06/24 Matthew Rushing MD [address] [place] [address] 19514 [facility] Specialist Cardiology - General 05/13/24 05/13/24 Guerita Elliott PA-C [address] 70417 [facility] Specialist Cardiothoracic Surgery 05/13/24 Guerita Elliott PA-C [address] 99818 [facility] Specialist Cardiothoracic Surgery 05/20/24 4 Matthew Rushing MD [address] [place] [address] 32505 [facility] Specialist Cardiology - General 05/20/24 05/20/24 Guerita Elliott PA-C [address] 92741 [facility] Specialist Cardiothoracic Surgery 05/27/24 4 Matthew Rushing MD [address] [place] [address] 31231 [facility] Specialist Cardiology - General 05/27/24 05/27/24 Guerita Elliott PA-C [address] 82673 [facility] Specialist Cardiothoracic Surgery 06/03/24 Matthew Rushing MD [address] [place] [address] 09851 [facility] Specialist Cardiology - General 06/03/24 06/03/24 Guerita Elliott PA-C [address] [address] [facility] Specialist Cardiothoracic Surgery 06/10/24 Matthew Rushing MD [address] [place] [address] 60048 [facility] Specialist Cardiology - General 06/10/24 06/10/24 Guerita Elliott PA-C [address] 40785 [facility] Specialist Cardiothoracic Surgery 06/17/24 Matthew Rushing MD [address] [place] [address] 77315 [facility] Specialist Cardiology - General 06/17/24 06/17/24 documented as of this encounter
--- OUTSIDE RECORDS SUMMARY | 2024-06-24 04:39 | XMS_ITS | Encounter Summary ---
Author Organization [facility]th Address [address] [place] [place] [address] Care Team Providers Care Combination Operator Name Role Phone Sal Wright DO Primary Care Provider [phone] Reason for Referral * Test/Procedure/Other (Urgent) - Closed Specialty Diagnoses / Procedures Referred By Contac t Referred To Contact Radiology Diagnoses Abdominal pain, unspecified abdominal location Procedures CT ABDOMEN PELVIS W IV AND PO CONTRAST Yadiel Brunner PA-C Phone: tel: fax: Referral ID Status Reason Start Date Expiration Date Visits Re quested Visits Authorized [id number] Closed 03/14/2016 03/14/2017 1 1 Reason for Visit * Reason Comments Abdominal Pain pt c/o lower right a bdominal pain with belching x couple of days . Pt denies vomit/diarrhea/fever Encounter Details Date Type Department Care Team (Late st Contact Info) Description 03/14/2016 12:25 PM EDT Office Visit [facility] [address] [address] Yadiel Brunner PA-C [address] [address] Abdominal pain, unspecified abdominal location (Primary Dx) Discharge Disposition: Home/Self Care [...] Sign Reading Time Taken Comments Blood Pressure 132/84 03/14/2016 12:28 PM EDT Pulse 96 03/14/2016 12:28 PM EDT Temperature 36.1 ??C (97 ??F) 03/14/2016 12: 28 PM EDT Respiratory Rate - - Oxygen Saturation 98% 03/14/2016 12: 28 PM EDT room air at rest Inhaled Oxygen Concentration - - Weight 112 kg (248 lb) 03/14/2016 12:28 PM EDT Height 177.8 cm (5' 10 ) 03/14/2016 12: 28 PM EDT Body Mass Index 35.58 03/14/2016 12:28 PM EDT documented in this encounter Patient Instructions * Patient Instructions* Yadiel Brunner PA-C - 03/14/2016 5:02 PM EDT Images from the original note were not included. Reviewed results of CT Scan. Recommend treating it as a pulled muscle. F/U with PCP. May need further testing (MRI). Abdominal Pain: Care Instructions Your Care Instructions [...] Where can you learn more? Go to [email or web address]. Enter E907 in the search box to learn more about Abdominal Pain: Care Instructions. Current as of: November 14, 2015 Content Version: 11.0 ?? [id number] [email or web address]. Care instructions adapted under license by your healthcare professional. If you have questions about a medical condition or this instruction, always ask your healthcare professional. [employer] disclaims any warranty or liability for your use of this information. documented in this encounter Progress Notes * Yadiel Brunner PA-C - 03/14/2016 12:31 PM EDT Images from the original note were not included. Patient ID: Robert Alexis is a 50 y.o. male who presents to Urgent Care today. Primary care provideris Sal Wright DO. Subjective: Patient presents with: Abdominal Pain: pt c/o lower right abdominal pain with belching x couple of days . Pt denies vomit/diarrhea/fever HPI Robert Alexis is a 50 y.o. male who presents with chief complaint of Abdominal Pain (pt c/o lower right abdominal pain with belching x couple of days . Pt denies vomit/diarrhea/fever). Chart Review: has HTN (hypertension); Asthma; and BMI 35-39.9 on his problem list. No current outpatient prescriptions on file prior to visit. No current facility-administered medications on file prior to visit. He is allergic to penicillins. Past medical, social, and family history noncontributory except as noted. Review of Systems Constitutional: Negative for fever. Gastrointestinal: Positive for abdominal pain. Negative for blood in stool, constipation, diarrhea,heartburn, nausea and vomiting. All other systems reviewed and are negative. Objective: Visit Vitals ??? BP 132/84 (BP Source: RA, Position: Sitting, Cuff Size: Lg) ??? Pulse 96 ??? Temp 97 ??F (36.1 ??C) (Tympanic) Comment (Src): right ear ??? Ht 1.778 m (5' 10 ) ??? Wt 112 kg (248 lb) ??? SpO2 98% Comment: room air at rest ??? BMI 35.58 kg/m2 Physical Exam Nursing note and vitals reviewed. Cardiovascular: Normal rate and regular rhythm. Pulmonary/Chest: Effort normal and breath sounds normal. Abdominal: Soft. Bowel sounds are normal. He exhibits no distension and no mass. There is no rigidity, no rebound, no guarding, no tenderness at McBurney's point and negative Mayorga's sign. Tender over RIGHT mid abdomen. Skin: Skin is warm and dry. Constitutional: He appears well-developed and well-nourished. See CT Scan results. Assessment / Plan: 1. Abdominal pain, unspecified abdominal location XR OBSTRUCTION SERIES CT ABDOMEN PELVIS W IV AND PO CONTRAST All questions were answered. The patient or guardian was given an after-visit summary. Patient Instructions Reviewed results of CT Scan. Recommend treating it as a pulled muscle. F/U with PCP. May need further testing (MRI). Abdominal Pain: Care Instructions Your Care Instructions [...] Where can you learn more? Go to [email or web address] Communicator.net/h. Enter E907 in the search box to learn more about Abdominal Pain: Care Instructions. Current as of: November 14, 2015 Content Version: 11.0 ?? [id number] [email or web address]. Care instructions adapted under license by your healthcare professional. If you have questions about a medical condition or this instruction, always ask your healthcare professional. [employer] disclaims any warranty or liability for your use of this information. documented in this encounter Plan of Treatment Not on file documented as of this encounter Results * CT ABDOMEN PELVIS W IV AND PO CONTRAST (03/14/2016 4:41 PM EDT) Anatomical Region Laterality Modality Abdomen Computed Tomogra phy 03/14/2016 4:38 PM EDT Impressions 03/14/2016 4:58 PM EDT No acute abnormality is seen. There is a normal appendix noted. 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 There is a probable LEFT adrenal adenoma. If clinically indicated, this would be better evaluated by MR exam. All exams performed by [facility] utilize one or more of the following dose optimization techniques: Automated exposure control, adjustment of the mA and/or kV according to patient size and/or the use of iterative reconstruction techniques. ??Audits are completed at the protocol, device and patient level to ensure compliance. ??All protocols (per device) are periodically reviewed by a team of medical physicists, technologists and radiologists. Dictating Narrative 03/14/2016 4:[address] abdomen and pelvis Clinical history: 50-year-old with fullness and discomfort in the RIGHT lower quadrant for 3 days. Technique: Routine enhanced CT of the abdomen and pelvis was performed. 80 cc of Omnipaque 350 was given by IV injection. ??900 cc of barium sulfate was given orally. Comparisons: None Findings: Abdomen: Lung bases: ??Clear. Abdominal solid organs: The LEFT kidney is congenitally absent. The RIGHT kidney appears unremarkable. There is a tiny low-density LEFT adrenal nodule measuring 8 mm. This may represent a small adenoma. This would be better evaluated by MR exam. [...] no significant adenopathy or free fluid. ? Procedure Note Juan Yates MD - 03/14/2016 CT abdomen and pelvis Clinical history: 50-year-old with fullness and discomfort in the RIGHTlower quadrant for 3 days. Technique: Routine enhanced CT of the abdomen and pelvis was performed. 80cc of Omnipaque 350 was given by IV injection. 900 cc of barium sulfatewas given orally. Comparisons: None Findings: Abdomen: Lung bases: Clear. Abdominal solid organs: The LEFT kidney is congenitally absent. The RIGHTkidney appears unremarkable. There is a tiny low-density LEFT adrenal nodule measuring 8 mm. This mayrepresent a small adenoma. This would be better evaluated by MR exam. The RIGHT adrenal gland, pancreas, spleen and liver are unremarkable. Gallbladder: Unremarkable. Bowel: Demonstrates no evidence of obstruction. Additional findings: There is no significant adenopathy and there is nofree fluid. Pelvis: Pelvic organs: There is absence of the seminal vesicle on the LEFT, againlikely congenital. The pelvic organs are otherwise unremarkable. There isdiverticulosis without evidence of diverticulitis. There is a normalappendix. Additional findings: There is no significant adenopathy or free fluid. IMPRESSION: No acute abnormality is seen. There is a normal appendix noted. 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 There is a probable LEFT adrenal adenoma. If clinically indicated, thiswould be better evaluated by MR exam. All exams performed by [facility] utilize one or more of the following doseoptimization techniques: Automated exposure control, adjustment of the mAand/or kV according to patient size and/or the use of iterativereconstruction techniques. Audits are completed at the protocol, deviceand patient level to ensure compliance. All protocols (per device) areperiodically reviewed by a team of medical physicists, technologists andradiologists. Dictating us Yadiel Brunner PA-C RIS CT ORDERABLES Fi nal Result * XR OBSTRUCTION SERIES (03/14/2016 12:59 PM EDT) Anatomical Region Laterality Modality Pelvis Computed Radiogr aphy 03/14/2016 12:4 3 PM EDT Impressions 03/14/2016 2:17 PM EDT No bowel obstruction or free air is identified. Stool at the rectosigmoid colon. Dictating Narrative 03/14/2016 2:17 PM EDT Abdominal obstruction series and PA erect view of the chest performed on 03/14/2016 HISTORY: RIGHT lower quadrant abdominal fullness and discomfort, belching Supine and erect views of the abdomen and pelvis were obtained as well as a PA erect view of the chest. There are no focal consolidations. There is no evidence for free air. There is no evidence for dilated air-filled bowel or air-fluid levels. There is levoscoliosis of the lumbar spine. There is stool at the rectosigmoid colon. Procedure Note Jann Friend MD - 03/14/2016 Abdominal obstruction series and PA erect view of the chest performed on03/14/2016 HISTORY: RIGHT lower quadrant abdominal fullness and discomfort,belching Supine and erect views of the abdomen and pelvis were obtained as well asa PA erect view of the chest. There are no focal consolidations. There is no evidence for free air.There is no evidence for dilated air-filled bowel or air-fluid levels. There is levoscoliosis of the lumbar spine. There is stool at therectosigmoid colon. IMPRESSION: No bowel obstruction or free air is identified. Stool at the rectosigmoidcolon. Dictating Yadiel COOMBS DIAG IMAGING ORD ERABLES Final Result documented in this encounter Visit Diagnoses Diagnosis Abdominal pain, unspecified abdominal location- Primary documented in this encounter Care Teams Combination Operator Relationship Specialty Start Date End Date Sal Wright DO PCP - General 08/28/12 04/11/18 documented as of this encounter
--- OUTSIDE RECORDS SUMMARY | 2024-06-24 04:39 | XMS_ITS | Encounter Summary ---
Author Organization [facility] alth Address [address] [place] [address] Care Team Providers Care Window Glazier Name Role Phone Sla Wright DO Primary Care Provider [phone] Reason for Visit * Reason Comments Abdominal Pain Pt c/o LUQ pain x mo nths. Pt reports he has had LUQ since 02/2016. Pt states LUQ pain comes and goes but when its there its constant. Pt reports pain is 6/10 and when he stands up he can move the pain around. Pt states he has had a full work up but is unable to get relief. Pt states he feels drained. Pt reports he rarely nauseous with the pain but today he is having nausea. Encounter Details Date Type Department Care Team (Late st Contact Info) Description 06/10/2016 12:10 PM EST Office Visit [facility] [place] [address] [place] [address] Adeline Bhandari CRNP [address] [place] [address] Abdominal discomfort in left upper quadrant (Primary Dx) Discharge Disposition: Home/Self Care Social [...] Reading Time Taken Comments Blood Pressure 118/74 06/10/2016 12:35 PM EST Pulse 82 06/10/2016 12:35 PM EST Temperature 36.2 ??C (97.1 ??F) 06/10/2016 12:[address] Respiratory Rate 16 06/10/2016 12:35 PM EST Oxygen Saturation 97% 06/10/2016 12:35 PM EST Inhaled Oxygen Concentration - - Weight 102 kg (224 lb) 06/10/2016 12:35 PM EST Height 179.1 cm (5' 10.5 ) 06/10/2016 12:[address] Body Mass Index 31.69 06/10/2016 12:35 PM EST documented in this encounter Patient Instructions * Patient Instructions* Adeline Bhandari CRNP - 06/10/2016 1:13 PM EST Images from the original note were not included. You have to go back to follow up with Prn Physical Therapist for further evaluation. If symptoms worsengo to emergency room. Abdominal Pain: Care Instructions Your Care Instructions [...] Where can you learn more? Go to [email or web address]/lgh. Enter E907 in the search box to learn more about Abdominal Pain: Care Instructions. Current as of: November 14, 2015 Content Version: 11.1 ?? 2981-1871 [employer]. Care instructions adapted under license by your healthcare professional. If you have questions about a medical condition or this instruction, always ask your healthcare professional. [employer], [facility] disclaims any warranty or liability for your use of this information. Diverticulitis: Care Instructions Your Care Instructions Diverticulitis occurs when pouches form in the [...] yourself at home? ?? Drink plenty of fluids, enough so that your urine is light yellow or clear like water. If you have kidney, heart, or liver disease and have to limit fluids, talk with your doctor before you increase the amount of fluids you drink. ?? Stick to liquids or a bland diet (plain rice, bananas, dry toast or crackers, applesauce) until you are feeling better. Then you can return to regular foods and gradually increase the amount of fiber in your diet. ?? Use a heating pad set on low on your belly to relieve mild cramps and pain. ?? Get extra rest until you are feeling better. ?? Be safe with medicines. Read and follow all instructions on the label. ?? If the doctor gave you a prescription medicine for pain, take it as prescribed. ?? If you are not taking a prescription pain medicine, ask your doctor if you can take an qlfs-cka-urdfoau medicine. ?? If your doctor prescribed antibiotics, take them as directed. Do not stop taking them just because you feel better. You need to take the full course of antibiotics. To prevent future attacks of diverticulitis ?? Avoid constipation: ?? Include fruits, vegetables, beans, and whole grains in your diet each day. These foods are high in fiber. ?? Drink plenty of fluids, enough so that your urine is light yellow or clear like water. If you have kidney, heart, or liver disease and have to limit fluids, talk with your doctor before you increase the amount of fluids you drink. ?? Get some exercise every day. Build up slowly to 30 to 60 minutes a day on 5 or more days of the week. ?? Take a fiber supplement, such as Citrucel or Metamucil, every day if needed. Read and follow allinstructions on the label. ?? Schedule time each day for a bowel movement. Having a daily routine may help. Take your time anddo not strain when having a bowel movement. When should you call for help? Call 911 anytime you think you may need emergency care. For example, call if: ?? You passed out (lost consciousness). ?? You vomit blood or what looks like coffee grounds. ?? You pass maroon or very bloody stools. Call your doctor now or seek immediate medical care if: ?? You have severe pain or swelling in your belly. ?? You have a new or higher fever. ?? You cannot keep down fluids or medicines. ?? You have new pain that gets worse when you move or cough. Watch closely for changes in your health, and be sure to contact your doctor if: ?? The symptoms you had when you first started feeling sick come back. ?? You do not get better as expected. Where can you learn more? Go to [email or web address]/h. Enter H901 in the search box to learn more about Diverticulitis: Care Instructions. Current as of: January 27, 2016 Content Version: 11.1 ?? [id number] [employer]. Care instructions adapted under license by your healthcare professional. If you have questions about a medical condition or this instruction, always ask your healthcare professional. [employer] disclaims any warranty or liability for your use of this information. documented in this encounter Progress Notes * Adeline Bhandari CRNP - 06/10/2016 12:44 PM EST Images from the original note were not included. Patient ID: Robert Alexis Jr. is a 51 y.o. male who presents to Urgent Care today. Primary care provider is Sal Wright DO. Subjective: Patient presents with: Abdominal Pain: Pt c/o LUQ pain x months. Pt reports he has had LUQ since 02/2016. Pt states LUQ pain comes and goes but when its there its constant. Pt reports pain is 6/10 and when he stands up he can move the pain around. Pt states he has had a full work up but is unable to get relief. Pt states he feels drained. Pt reports he rarely nauseous with the pain but today he is having nausea. HPI Robert Alexis Jr. is a 51 y.o. male who presents with chief complaint of Abdominal Pain (Pt c/o LUQ pain x months. Pt reports he has had LUQ since 02/2016. Pt states LUQ pain comes and goes but when its there its constant. Pt reports pain is 6/10 and when he stands up he can move the pain around. Pt states he has had a full work up but is unable to get relief. Pt states he feels drained. Pt reports he rarely nauseous with the pain but today he is having nausea. ). Mr. Jones is 51 years old male accompanied by his . Michel said that this been having left upper quadrant since February 2016. Patient said that he started with a right lower quadrant, beginning of February and then later on it went up to the left upper quadrant of the abdomen. He said he has been having good bowel movements,soft regular daily bowel movements. Was seen on March 14, 2016 urgent care by Mr. 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 Hisall blood work did not come for any abnormality. Patient was seen at the emergency room on 04/07/2016 for the same problem acute abdominal pain all test negative so he was sent home, he was told to follow up with GI specialist. [facility] The GI Specialitst sent him for colonoscopy and also upper GI told him they cannot find anything wrong with him. The patient continues to havethe same problem and is losing weight decreased appetite fatigue and he does not know what is goingon. Patient said he continues to have fatigue and muscle aches everything hurts and is so weak, so have seen this patient in May 04, 2016 I gave him doxycycline thinking because if all things are normal and nobody checked for Lyme so will explore the possibility of lyme, he took 2 days of doxycycline, with negative lyme test, he said he passed out and went to the emergency room. He was admitted to the hospital at [facility] for a week. He was told by emergency room doc that possible side effectof doxycycline. So the GI specialist told him to stop the doxycycline and take the erythromycin. Hetook erythromycin but no relief, continue to have symptoms of LEFT abdominal pain. Chart Review: has HTN (hypertension); Asthma; BMI 35-39.9; Tubular adenoma of colon. Repeat colonoscopy in APR 2019; and Anxiety on his problem list. Current Outpatient Prescriptions on File Prior to Visit Medication Sig Dispense Refill ??? azithromycin (ZITHROMAX) 250 MG tablet Take 500 mg by mouth at bedtime. No current facility-administered medications on file prior to visit. He has No Known Allergies. Past medical, social, and family history noncontributory except as noted. Review of Systems Constitutional: Positive for malaise/fatigue. Negative for fever. Respiratory: Negative for cough, shortness of breath and wheezing. Cardiovascular: Negative for chest pain. Gastrointestinal: Positive for abdominal pain. Negative for diarrhea, nausea and vomiting. Genitourinary: Negative for dysuria. Musculoskeletal: Negative for falls. Skin: Negative for rash. All other systems reviewed and are negative. Objective: Visit Vitals ??? BP 118/74 ??? Pulse 82 ??? Temp 97.1 ??F (36.2 ??C) (Tympanic) ??? Resp 16 ??? Ht 1.791 m (5' 10.5 ) ??? Wt 102 kg (224 lb) ??? SpO2 97% ??? BMI 31.69 kg/m2 Physical Exam Nursing note and vitals reviewed. HENT: Right Ear: External ear normal. Left Ear: External ear normal. Nose: Nose normal. Mouth/Throat: Oropharynx is clear and moist. No oropharyngeal exudate. Eyes: Conjunctivae and EOM are normal. Pupils are equal, round, and reactive to light. Neck: Normal range of motion. Neck supple. Cardiovascular: Normal rate, regular rhythm and normal heart sounds. Pulmonary/Chest: Effort normal and breath sounds normal. No respiratory distress. He has no wheezes. He has no rales. He exhibits no tenderness. Abdominal: Soft. Bowel sounds are normal. He exhibits no distension and no mass. There is no tenderness. There is no rebound and no guarding. Musculoskeletal: Normal range of motion. He exhibits no edema or tenderness. Ambulatory without assist Lymphadenopathy: He has no cervical adenopathy. Neurologic: He is alert and oriented to person, place, and time. Coordination normal. Skin: Skin is warm. No rash is noted. Psychiatric: Anxious, as he doesn't want to sit down, he said he is nervous and abdomen hurts when sitting down Constitutional: He appears well-developed. No results found. Assessment / Plan: There are no diagnoses linked to this encounter. 1. Abdominal discomfort in left upper quadrant amoxicillin-clavulanate (AUGMENTIN)- 875-125 MG pertab- stop erythromycin and take amoxicillin- if he has bacteria in abdomen- this will help while waiting for GI appointment Patient and want to get EKG to make sure nothing wrong with his heart. EKG- MUSE(INOFFICE TRACE/ PB CHARGE)- normal NOTE* I discussed above with Dr. Sosa Patient Instructions You have to go back to follow up with Prn Physical Therapist for further evaluation. If symptoms worsengo to emergency room. Abdominal Pain: Care Instructions Your Care Instructions [...] Where can you learn more? Go to [email or web address]/h. Enter E907 in the search box to learn more about Abdominal Pain: Care Instructions. Current as of: November 14, 2015 Content Version: 11.1 ?? [id number] [employer]. Care instructions adapted under license by your healthcare professional. If you have questions about a medical condition or this instruction, always ask your healthcare professional. [employer] disclaims any warranty or liability for your use of this information. Diverticulitis: Care Instructions Your Care Instructions Diverticulitis occurs when pouches form in the [...] yourself at home? ?? Drink plenty of fluids, enough so that your urine is light yellow or clear like water. If you have kidney, heart, or liver disease and have to limit fluids, talk with your doctor before you increase the amount of fluids you drink. ?? Stick to liquids or a bland diet (plain rice, bananas, dry toast or crackers, applesauce) until you are feeling better. Then you can return to regular foods and gradually increase the amount of fiber in your diet. ?? Use a heating pad set on low on your belly to relieve mild cramps and pain. ?? Get extra rest until you are feeling better. ?? Be safe with medicines. Read and follow all instructions on the label. ?? If the doctor gave you a prescription medicine for pain, take it as prescribed. ?? If you are not taking a prescription pain medicine, ask your doctor if you can take an [id number]-ohaadmg medicine. ?? If your doctor prescribed antibiotics, take them as directed. Do not stop taking them just because you feel better. You need to take the full course of antibiotics. To prevent future attacks of diverticulitis ?? Avoid constipation: ?? Include fruits, vegetables, beans, and whole grains in your diet each day. These foods are high in fiber. ?? Drink plenty of fluids, enough so that your urine is light yellow or clear like water. If you have kidney, heart, or liver disease and have to limit fluids, talk with your doctor before you increase the amount of fluids you drink. ?? Get some exercise every day. Build up slowly to 30 to 60 minutes a day on 5 or more days of the week. ?? Take a fiber supplement, such as Citrucel or Metamucil, every day if needed. Read and follow allinstructions on the label. ?? Schedule time each day for a bowel movement. Having a daily routine may help. Take your time anddo not strain when having a bowel movement. When should you call for help? Call 911 anytime you think you may need emergency care. For example, call if: ?? You passed out (lost consciousness). ?? You vomit blood or what looks like coffee grounds. ?? You pass maroon or very bloody stools. Call your doctor now or seek immediate medical care if: ?? You have severe pain or swelling in your belly. ?? You have a new or higher fever. ?? You cannot keep down fluids or medicines. ?? You have new pain that gets worse when you move or cough. Watch closely for changes in your health, and be sure to contact your doctor if: ?? The symptoms you had when you first started feeling sick come back. ?? You do not get better as expected. Where can you learn more? Go to [email or web address]/lgh. Enter H901 in the search box to learn more about Diverticulitis: Care Instructions. Current as of: January 27, 2016 Content Version: 11.1 ?? [id number] [employer]. Care instructions adapted under license by your healthcare professional. If you have questions about a medical condition or this instruction, always ask your healthcare professional. [employer] disclaims any warranty or liability for your use of this information. All questions were answered. The patient or guardian was given an after-visit summary. documented in this encounter Plan of Treatment Not on file documented as of this encounter Procedures Procedure Name Priority Date/Time Associated Diagnosis Comments EKG-MUSE(INOFFICE/P B CHARGE) Routine 06/10/2016 1:29 PM EST Abdominal discomfort in left upper quadrant documented in this encounter Results * EKG-MUSE(INOFFICE TRACE/ PB CHARGE) (06/10/2016 1:29 PM EST) Ventricular Rate 86 BPM [facility] Atrial Rate 86 BPM [facility] P-R Interval 166 ms [facility]KG QRS Duration 96 ms [facility] Q-T Interval 364 ms [facility] QTC Calculation 435 ms [facility]-EKG Calculated P [place] 39 degrees [facility]-E[facility] Calculated R [place] 63 degrees [facility] Calculated T [place] 6 degrees [facility]-EKG 06/10/2016 1:29 PM EST 06/10/2016 3:25 PM EST Narrative [facility] - 06/10/2016 3:25 PM EST Normal sinus rhythm Possible Left atrial enlargement Borderline ECG When compared with ECG of 09-MAY-2016 02:02, T wave inversion now evident in Inferior leads Confirmed by Matthew Rushing ([id number]) on 06/10/2016 3:25:12 PM us Adeline VILLARREAL ECG ORDERABLES Final Res ult [facility]-EKG [address] [place] [address] documented in this encounter Visit Diagnoses Diagnosis Abdominal discomfort in left upper quadrant- Primary Abdominal pain, left upper quadrant documented in this encounter Care Teams Window Glazier Relationship Specialty Start Date End Date Sal Wright DO PCP - General 08/28/12 04/11/18 documented as of this encounter
--- OUTSIDE RECORDS SUMMARY | 2024-06-24 04:39 | XMS_ITS | Encounter Summary ---
Author Organization [facility] alth Address [address] [place] [address] Care Team Providers Care Top Collar Maker Name Role Phone Sal Wright DO Primary Care Provider Kilo Wang MD Unavailable [phone] Reason for Visit * Reason Comments Altered Mental Status Migraine Encounter Details Date Type Department Care Team ([facility] st Contact Info) Description 08/30/2016 9:00 AM EDT Office Visit NEUROLOGY [address] [place] [address] Kilo Wang MD [address] [place] [address] Bilateral carpal tunnel syndrome (Primary Dx); Cervico-occipital neuralgia of the right side; Anxiety; Essential hypertension; Vasovagal syncope Discharge Disposition: Home/Self Care Social History Tobacco [...] Sign Reading Time Taken Comments Blood Pressure 125/80 08/30/2016 9:02 AM EDT Pulse 80 08/30/2016 9:02 AM EDT Temperature - - Respiratory Rate - - Oxygen Saturation - - Inhaled Oxygen Concentration - - Weight 104 kg (229 lb) 08/30/2016 9:02 AM EDT Height 180.3 cm (5' 11 ) 08/30/2016 9:02 AM EDT Body Mass Index 31.94 08/30/2016 9:02 AM EDT documented in this encounter Progress Notes * Kilo Wang MD - 08/30/2016 9:19 AM EDT Images from the original note were not included. Assessment/Plan Robert Alexis Jr. is a 51 y.o. right handed male who presents with chief complaint of Altered Mental Status and Migraine Current visit Dx include: 1. Bilateral carpal tunnel syndrome 2. Cervico-occipital neuralgia of the right side 3. Anxiety 4. Essential hypertension 5. Vasovagal syncope Impression Recurrent spells of syncope and paresthesia of the upper and lower extremities associated with tingling and numbness/pain right occipital region refer to the right ear and right retro-orbital. Possible history of Lyme disease currently being managed by a Lyme disease specialist with antibiotics. Bilateral upper extremities paresthesia and numbness probably due to carpal tunnel syndrome. Stable paresthesia of the right occiput most probably due to greater occipital neuralgia that usually accompanies vascular headaches. He has no significant daily migraine to warrant the start of migraine prophylactic medications and he had no recent spells of syncope. Plan: 1- Recurrent syncopal spells with postictal confusion and possible TIA rule out vertebrobasilar insufficiency versus seizure 2- right greater occipital neuralgia with vascular headache 3- bilateral carpal tunnel syndrome of mild severity 4- bronchial asthma and tobacco abuse Plan - MRI of the brain results reviewed on PACS system and discussed with the patient and his - MRA of the brain results reviewed on PACS system and discussed with the patient and his - EEG was normal showing no evidence of epileptogenic activity - No need to endeavor further neurodiagnostic studies however if his neuropathic symptoms of the right occipital region or bilateral hands are getting worse interfering with his daily activities he will call me back to schedule EMG/NCS of bilateral upper extremities to further define the severity of CTS. - Referral to Dr. Aron Aguilar for his expertise in nerve block if warranted Discussed with the patient and his >50% of our 30 minute??visit was spent in counseling and coordination of care Subjective: HPI Robert Alexis Jr. is a 51 y.o. male who presents with history of recurrent syncopal spells prior to admission to the hospital started 05/06 with 4 spells throughout the day that was witnessed by hiswife who describes feeling significantly dizzy and falling down to the floor and being confused after woke up for few minutes before return to his normal mental status. MRI of the brain with and without contrast showed no evidence of any abnormality to maintain his recurrent spells and paresthesia/headache. EEG showed no epileptogenic activity. He describes pain in the right occipital region thatseems to be referred frontal associated with numbness in distribution of the greater occipital nerve and retro-orbital throbbing pain however it is not persistent and he was not offered greater motornerve block in the past. He has no history of TIA, stroke, or seizure in the past. He had been treated for Lyme disease withdoxycycline that he developed GI symptoms as a side effect. He declines abuse of alcohol or illicitdrugs and he smokes. The patient describes feeling lightheaded before the spells however he had no headache, visual field changes, abnormal taste or smell, or recent head trauma. He was seen in the emergency room after his aspirin and 05-[address] of the head was done that showed no significant evidence of abnormalities and he was advised to see a neurologist as an outpatient. Follow Up: Return if symptoms worsen or fail to improve, for Follow up. Active Problems: He has HTN (hypertension); Asthma; BMI 35-39.9; Tubular adenoma of colon. Repeat colonoscopy in APR 2019; Anxiety; Cervico-occipital neuralgia of the right side; Bilateral carpal tunnel syndrome; and Vasovagal syncope on his problem list. Current Medications: azithromycin (ZITHROMAX) 250 MG tablet Take 500 mg by mouth at bedtime. Allergies: He has No Known Allergies. I reviewed the med list, past medical, surgical, social and family history. ROS Constitutional: Negative. HENT: Negative. Eyes: Negative. Respiratory: Negative. Cardiovascular: Negative. Gastrointestinal: Negative. Endocrine: Negative. Genitourinary: Negative. Musculoskeletal: Negative. Allergic/Immunologic: Negative. Neurological: Positive for syncope. Negative for dizziness, tremors, seizures, facial asymmetry, speech difficulty, weakness, light-headedness, numbness and headaches. Hematological: Negative. Psychiatric/Behavioral: Negative for agitation, behavioral problems, confusion, decreased concentration, dysphoric mood, hallucinations, self-injury, sleep disturbance and suicidal ideas. The patientis nervous/anxious. The patient is not hyperactive. Diagnostic Data: WBC Count Date/Time Value Ref Range Status 05/09/2016 05:20 AM 6.5 4.8 - 10.8 10*3/uL Final Hgb Date/Time Value Ref Range Status 05/09/2016 05:20 AM 14.5 14.0 - 18.0 g/dL Final Hct Date/Time Value Ref Range Status 05/09/2016 05:20 AM 41.8 (L) 42.0 - 52.0 % Final Platelet Count Date/Time Value Ref Range Status 05/09/2016 05:20 AM 218 150 - 450 10*3/uL Final Glucose (serum) Date/Time Value Ref Range Status 05/09/2016 12:38 PM 110 (H) 65 - 100 mg/dL Final Sodium Date/Time Value Ref Range Status 05/09/2016 12:38 PM 140 135 - 145 mmol/L Final Potassium Date/Time Value Ref Range Status 05/09/2016 12:38 PM 4.2 3.4 - 5.3 mmol/L Final Chloride Date/Time Value Ref Range Status 05/09/2016 12:38 PM 104 98 - 107 mmol/L Final CO2 Venous Date/Time Value Ref Range Status 05/09/2016 12:38 PM 29.0 21.0 - 31.0 mmol/L Final Blood Urea Nitrogen Date/Time Value Ref Range Status 05/09/2016 12:38 PM 9 8 - 22 mg/dL Final Creatinine Date/Time Value Ref Range Status 05/09/2016 12:38 PM 1.1 0.7 - 1.2 mg/dL Final Calcium Date/Time Value Ref Range Status 05/09/2016 12:38 PM 9.1 8.6 - 10.3 mg/dL Final GFR Date/Time Value Ref Range Status 05/09/2016 12:38 PM >60 mL/min/1.73 sqm Final Comment: Notes for GFR: 1. Multiply result by 1.21 if patient is black/. 2. Chronic kidney disease: <60 mL/min/1.73 sq.m. Renal Failure: <15 mL/min/1.73 sq.m. Albumin Date/Time Value Ref Range Status 05/09/2016 12:38 PM 3.9 3.5 - 4.9 g/dL Final Comment: Result reflects use of Bromocresol Green Methodology. Bilirubin Total Date/Time Value Ref Range Status 05/09/2016 12:38 PM 0.7 0.2 - 1.2 mg/dL Final Alkaline Phosphatase Date/Time Value Ref Range Status 05/09/2016 12:38 PM 58 34 - 104 U/L Final AST (SGOT) Date/Time Value Ref Range Status 05/09/2016 12:38 PM 17 13 - 40 U/L Final ALT (SGPT) Date/Time Value Ref Range Status 05/09/2016 12:38 PM 27 7 - 52 U/L Final Cholesterol Date/Time Value Ref Range Status 04/06/2016 07:10 AM 189 125 - 200 mg/dL Final Triglyceride Date/Time Value Ref Range Status 04/06/2016 07:10 AM 81 56 - 150 mg/dL Final High Density Lipoprotein Chol Date/Time Value Ref Range Status 04/06/2016 07:10 AM 35 (L) 40 - 90 mg/dL Final Low Density Lipoprot Chol Calc Date/Time Value Ref Range Status 04/06/2016 07:10 AM 138 (A) <130 mg/dL Final Comment: Ages 25 [...] VLDL Cholesterol Date/Time Value Ref Range Status 04/06/2016 07:10 AM 16 mg/dL Final Chol/HDL Ratio Date/Time Value Ref Range Status 04/06/2016 07:10 AM 5.40 Ratio Final LDL/HDL Ratio Date/Time Value Ref Range Status 04/06/2016 07:10 AM 3.94 Ratio Final Non-HDL Cholesterol Date/Time Value Ref Range Status 04/06/2016 07:10 AM 154 mg/dL Final No results found for: VITB12 No results found for: TSH No results found for: FOLATERBC No results found for: VITD Objective: Vitals: Visit Vitals ??? BP 125/80 ??? Pulse 80 ??? Ht 1.803 m (5' 11 ) ??? Wt 104 kg (229 lb) ??? BMI 31.94 kg/m2 Physical Exam Head: Normocephalic and atraumatic. Mouth/Throat: No oropharyngeal exudate. Eyes: Conjunctivae and EOM are normal. Pupils are equal, round, and reactive to light. No scleral icterus. Neck: Normal range of motion. Neck supple. No JVD present. No tracheal deviation present. No thyromegaly present. Cardiovascular: Normal rate, regular rhythm, normal heart sounds and intact distal pulses. Exam reveals no gallop and no friction rub. No murmur heard. Pulmonary/Chest: No stridor. Abdominal: Soft. Bowel sounds are normal. He exhibits no distension and no mass. There is no tenderness. There is no rebound and no guarding. Musculoskeletal: He exhibits no edema, tenderness or deformity. Lymphadenopathy: He has no cervical adenopathy. Neurologic Exam Mental status: Alert, awake and oriented to person, place, and time. Memory and cognitive function:grossly intact Language: speech is fluent with no language difficulty. CN II-XII Visual field intact by confrontation testing, PERRL, extraocular movements intact, no nystagmus or gaze preference, facial sensation to light touch, pinprick, and sense of temperature are equal in , VII, VII distribution bilaterally. Facial muscles of expression are equal bilateral, hearing is intact to conversation, shoulder shrugging and lateral head turning intact, tongue and uvula are mid-line Motor: good bulk and tone in UE and LE without focal weakness or pronator drift. Sensory: grossly intact to fine touch, temperature, pin prick, sense of position, and vibration in upper and lower extremities. DTR: 2+ in upper and lower extremities, plantars down going bilateral Cerebellar: intact finger nose finger and heel knee gomez testing bilateral. No ataxia or tremors. Gait: normal, able to walk tandem without difficulty Skin: Skin is warm and dry. No rash is noted.He is not diaphoretic. No erythema. No pallor. Psychiatric: He has a normal mood and affect. His behavior is normal. Judgment and thought content normal. Constitutional: He appears well-developed and well-nourished. No distress. Kilo Wang MD ?? documented in this encounter Plan of Treatment Not on file documented as of this encounter Visit Diagnoses Diagnosis Bilateral carpal tunnel syndrome- Primary Carpal tunnel syndrome Cervico-occipital neuralgia of the right side Other syndromes affecting cervical region Anxiety Anxiety state, unspecified Essential hypertension Unspecified essential hypertension Vasovagal syncope Syncope and collapse documented in this encounter Care Teams Top Collar Maker Relationship Specialty Start Date End Date Sal Wright DO PCP - General 08/28/12 04/11/18 Kilo Wang MD Consulting Physician Neurology 08/30/16 12/01/21 documented as of this encounter
--- OUTSIDE RECORDS SUMMARY | 2024-06-24 04:39 | XMS_ITS | Encounter Summary ---
Author Organization [facility] Address [address] [place] [address] Care Team Providers Care Field Technical Support Consultant Name Role Phone Sal Wright DO Primary Care Provider [phone] Kilo Wang MD Unavailable [phone] Juan Haddad MD Unavailable [phone] Reason for Visit * Auth/Cert Specialty Diagnoses / Procedures Referred By Donald carvajal Referred To Contact Diagnoses Right carpal tunnel syndrome Right carpal tunnel syndrome Procedures DE WRIST ARTHROSCOP,RELEASE XVERS LIG DECOMPRESSION NERVE MEDIAN CARPAL TUNNEL RELEASE: Carpal Tunnel Release Referral ID Status Reason Start Date Expiration Date Visits Re quested Visits Authorized [id number] 1 1 Encounter Details Date Type Department Care Team (Late st Contact Info) Description 03/02/2018 8:40 AM EDT - 03/02/2018 9:25 AM EDT Surgery [facility] [address] [place] [address] Devante Portillo DO [address] [place] [address] DECOMPRESSION NERVE MEDIAN CARPAL TUNNEL RELEASE: Carpal Tunnel Release Surgery Details Date/Time Status Location OR Service Patient Class Case Class Case Type Trauma Case? 03/02/2018 8:40 AM Posted [facility] ORTHO OR Ortho 07 Orthopedics Day Surgery Scheduled Panel 1 Procedure LRB Anes Op Region Wound Class Comments DECOMPRESSION NERVE MEDIAN C ARPAL TUNNEL RELEASE: Carpal Tunnel Release Right Local Hand Class I/Cl joy Surgeon Surgeon Role Service Panel Dragann, Devante D, DO Primary Orthopedics 1 documented in this [...] Sign Reading Time Taken Comments Blood Pressure 126/86 03/02/2018 9:20 AM EDT Pulse 82 03/02/2018 9:07 AM EDT Temperature 37 ??C (98.6 ??F) 03/02/2018 6:39 AM EDT Respiratory Rate 18 03/02/2018 6:39 AM EDT Oxygen Saturation 97% 03/02/2018 9:07 AM EDT Inhaled Oxygen Concentration - - Weight 105 kg (231 lb 0.7 oz) 03/02/2018 6:39 AM EDT Height 175.3 cm (5' 9 ) 03/02/2018 6:39 AM EDT Body Mass Index 34.12 03/02/2018 6:39 AM EDT documented in this encounter Discharge Instructions * Discharge Instructions* Marbella Bush RN - 03/02/2018 9:22 AM EDT POST ANESTHESIA DISCHARGE INSTRUCTIONS Do [...] your surgery please call your surgeon at [phone] If any questions or concerns about your hospital visit and care, please call the [facility] at [phone] M-F 8am until 6:30pm IF TAKING PRESCRIPTION [...] first 2 days. TIME OF LAST PAIN MEDICATION -TYLENOL 1000MG AT 0715. You can take your next pain pill at as neededfor pain, please keep track of tylenol, do not exceed 4000mg in a 24hr period. * Discharge Instr - Other Orders* Elizabeth Hernandez Kiarra L - 03/01/2018 8:[address] Portillo's Hand/Wrist Surgery Post-Op [...] cyst excision, carpal tunnel release), you maytake ptrz-yvo-jrztwhp acetaminophen (Tylenol) on a regular basis: acetaminophen (Tylenol) 1000mg every 8 hours In addition to acetaminophen, if it is safe for you to take antiinflammatories (no history of GI ulcers/bleeding, no use of blood thinners), you may also add an wcao-ynl-zwohlqt anti-inflammatory. Please choose one of the following: [...] call us before your scheduled appointment. [address] * [place] [address] * * fax [phone] * [place] [address] * * fax [phone] [facility] * [facility] [address] * [place] [address] * * fax [phone] [facility] * [place] [address] * * fax [phone] Dr. Portillo's Post-Op Medication Instructions ?? After [...] ?? Narcotic pain medications such as oxycodone, [place]/Vicodin (hydrocodone/acetaminophen) and codeine are all narcotics. You [...] the narcotics. ?? Tylenol is the recommended mxcf-aye-jepptfl medication after orthopedic surgery. However, if this [...] with periodic blood tests (PT/INR). Avoid using ltip-ctc-bxczlor anti-inflammatories while taking blood thinners. ?? If you have any questions about your medications, please contact us. If we cannot answer your questions, we may refer you to your primary care physician or a pharmacist. [address] * [place] [address] * * fax [phone] * [place] [address] * * fax [phone] * [address] * [place] [address] * * fax [phone] [facility] * [place] [address] * * fax [phone] documented in this encounter Medications at Time [...] 20 weeks as prescribed by Michelle VILLARREAL [place]). 8 oxyCODONE (ROXICODONE) 5 MG immediate releasetab Take 1-2 tablets by mouth every 4 hours as needed for Pain. Max Daily Amount: 60 mg 30 tablet 03/23/2018 8 documented as of this encounter Miscellaneous Notes * Op Note - Devante Portillo DO - 03/02/2018 9:15 AM EDT Record of Operation Date of Procedure: 03/02/2018 Preoperative Diagnosis: right Carpal Tunnel Syndrome Postoperative Diagnosis: right Carpal Tunnel Syndrome Procedure: right Carpal Tunnel Release Surgeon: Devante Portillo DO Gunner'S Mate: none Anesthesia: Local (WALANT) Blood Loss: Minimal Description of Operation: The patient was seen in the preop holding area. Local anesthesia was administered using 1.5% Xylocaine with epinephrine . The patient was taken to the operating room and placed in the supine position.The arm was then prepped and draped appropriately and a timeout was performed. A longitudinal incision was made in line with the 3rd web space. This was carried through the skin and the subcutaneous tissue was bluntly dissected, exposing the palmar fascia. The palmar fascia was incised and carried carefully through the transverse carpal ligament until the carpal canal was entered. The median nerve and motor branch were identified and protected. A complete release of the ligament was achieved under direct visualization. The wound was thoroughly irrigated with saline and the skin was closed with 4-0 nylon. Hemostasis was satisfactory. Sterile dressings were applied. Sponge and needle counts were correct. The patient tolerated the procedure well and was moved to [facility] in satisfactory condition. Intraoperative Findings: The median nerve was noted to have Severe constriction. * Plan of Care - Marbella Bush RN - 03/02/2018 9:14 AM EDT at bedside. * Pre-Procedure Documentation - Devante Portillo DO - 03/02/2018 7:28 AM EDT Pt. Seen pre op. H+P from 02/23/18 reviewed. No changes. * Anesthesia PSH - Francis Farrell CRNP - 02/24/2018 10:08 AM EDT Proceed with procedure- LOCAL- NO ORDERS. I have reviewed the patients medical history, labs and pertinent information. documented in this encounter Plan of Treatment Not on file documented as of this encounter Procedures Procedure Name Priority Date/Time Associated Diagnosis Comments DECOMPRESSION NERVE MEDIAN CARPAL TUNNEL RELEASE 03/02/2018 8:30 AM EDT Right carpal tunnel syndrome documented in this encounter Visit Diagnoses Diagnosis Right carpal tunnel syndrome- Primary Carpal tunnel syndrome Right carpal tunnel syndrome Carpal tunnel syndrome Bilateral carpal tunnel syndrome Carpal tunnel syndrome Right carpal tunnel syndrome Carpal tunnel syndrome documented in this encounter Admitting Diagnoses Diagnosis Right carpal tunnel syndrome Carpal tunnel syndrome documented in this encounter Administered Medications Inactive Administered Medications - up to 3 most recent administrations Medication Order MAR Action Action Date Dose Rate Site acetaminophen (TYLENOL) tablet 975 mg 975 mg, Oral, ONCE, On Lisa 03/02/18 at 0700, For 1 dose, C) Pre-Op/Pre-Procedure Given 03/02/2018 7:15 AM EDT 975 mg ceFAZolin (ANCEF) 2 g/100 mL IVPB 2 g, Intravenous, Administer over 30 Minutes, IN PREP OR OR AREA, Other, Starting on Lisa 03/02/18 at 0652, For 1 dose, 1 hour prior to surgery, C) Pre-Op/Pre-ProcedureIndication s:Perioperative Pharmacoprophylaxis New Bag 03/02/2018 8:37 AM EDT 2 g 200 mL/hr left hand HYDROcodone-acetaminophen (NORCO) 5-325 MG per tablet 1-2 tablet 1-2 tablet, Oral, EVERY 4 HOURS PRN, Moderate Pain (4-7), Severe Pain (8-10), Starting on Lisa 03/02/18 at 0905, F) Post-Op/Post-Procedure Lidocaine-EPINEPHrine 1.5 %-1:[id number] injection onestep once prn, Starting on Lisa 03/02/18 at 0723, Until Lisa 03/02/18 at 0904 Given 03/02/2018 7:23 AM EDT 10 mLs NaCl 0.9 % flush 10 mL 10 mL, Intravenous, at 0-250 mL/hr, PRN, Line Care, Starting on Lisa 03/02/18 at 0652, C) Pre-Op/Pre-Procedure NaCl 0.9 % flush 3-10 mL 3-10 mL, Intravenous, PRN, Line Care, Starting on Lisa 03/02/18 at 0652, C) Pre-Op/Pre-Procedure NaCl 0.9% flush bag 20 mL 20 mL, Intravenous, at 0-250 mL/hr, PRN, Line Care, Starting on Lisa 03/02/18 at 0652, Run at rate of intermittent infusion for a volume of 20 mL to ensure all drug is out of IV tubing and administered to patient., C) Pre-Op/Pre-Procedure NaCl 0.9% KVO flush bag 10 mL/hr, Intravenous, PRN, Other, Starting on Lisa 03/02/18 at 0652, C) Pre-Op/Pre-Procedure documented in this encounter Active and Recently Administered Medications Times are shown in EDT. Scheduled Medication Order 02/28/2018 03/01/2018 03/02/2018 acetaminophen (TYLENOL) tablet 975 mg (COMPLETED) 975 mg, Oral, ONCE, On Lisa 03/02/18 at 0700, For 1 dose, C) Pre-Op/Pre-Procedure 0715 (Given - Provid er: Megan Youssef RN) PRN Medication Order 02/28/2018 03/01/2018 03/02/2018 ceFAZolin (ANCEF) 2 g/100 mL IVPB (COMPLETED) 2 g, Intravenous, Administer over 30 Minutes, IN PREP OR OR AREA, Other, Starting on Lisa 03/02/18 at 0652, For 1 dose, 1 hour prior to surgery, C) Pre-Op/Pre-Procedure 0837 (New Bag - Prov ider: Daphney Isaac, FIDENCIO) HYDROcodone-acetaminophen (NORCO) 5-325 MG per tablet 1-2 tablet 1-2 tablet, Oral, EVERY 4 HOURS PRN, Moderate Pain (4-7), Severe Pain (8-10), Starting on Lisa 03/02/18 at 0905, F) Post-Op/Post-Procedure Lidocaine-EPINEPHrine 1.5 %-1:[id number] injection (CANCELED) onestep once prn, Starting on Lisa 03/02/18 at 0723, Until Lisa 03/02/18 at 0904 0723 (Given - Provid er: Devante Portillo, DO - Comment: in pre-op) NaCl 0.9 % flush 10 mL 10 mL, Intravenous, at 0-250 mL/hr, PRN, Line Care, Starting on Lisa 03/02/18 at 0652, C) Pre-Op/Pre-Procedure NaCl 0.9 % flush 3-10 mL 3-10 mL, Intravenous, PRN, Line Care, Starting on Lisa 03/02/18 at 0652, C) Pre-Op/Pre-Procedure NaCl 0.9% flush bag 20 mL 20 mL, Intravenous, at 0-250 mL/hr, PRN, Line Care, Starting on Lisa 03/02/18 at 0652, Run at rate of intermittent infusion for a volume of 20 mL to ensure all drug is out of IV tubing and administered to patient., C) Pre-Op/Pre-Procedure NaCl 0.9% KVO flush bag 10 mL/hr, Intravenous, PRN, Other, Starting on Lisa 03/02/18 at 0652, C) Pre-Op/Pre-Procedure documented in this encounter Care Teams Field Technical Support Consultant Relationship Specialty Start Date End Date Sal Wright DO PCP - General 08/28/12 04/11/18 Kilo Wang MD Consulting Physician Neurology 08/30/16 12/01/21 Juan Haddad MD [address] [place] [address] Otolaryngology 09/23/17 documented as of this encounter
--- OUTSIDE RECORDS SUMMARY | 2024-06-24 04:39 | XMS_ITS | Encounter Summary ---
Author Organization [facility] alth Address [address] [facility] [place] [address] Care Team Providers Care Floor Person Name Role Phone Sal Wright DO Primary Care Provider Kilo Wang MD Unavailable [phone] Juan Haddad MD Unavailable Reason for Visit * Reason Comments Numbness Weakness Tremors Encounter Details Date Type Department Care Team (Late st Contact Info) Description 01/23/2018 2:30 PM EDT Office Visit NEUROLOGY [address] [place] [address] Kilo Wang MD [address] [place] [address] Bilateral carpal tunnel syndrome (Primary Dx); Occipital neuralgia of right side; Tubular adenoma of colon. Repeat colonoscopy in APR 2019; Vasovagal syncope; Essential hypertension; BMI 35-39.9; Anxiety Discharge Disposition: Home/Self Care Social History [...] Reading Time Taken Comments Blood Pressure 120/80 01/23/2018 3:16 PM EDT Pulse 70 01/23/2018 3:16 PM EDT Temperature - - Respiratory Rate - - Oxygen Saturation - - Inhaled Oxygen Concentration - - Weight 105 kg (231 lb) 01/23/2018 3:16 PM EDT Height 175.3 cm (5' 9 ) 01/23/2018 3:16 PM EDT Body Mass Index 34.11 01/23/2018 3:16 PM EDT documented in this encounter Progress Notes * Kilo Wang MD - 01/23/2018 3:17 PM EDT Assessment/Plan Robert Alexis Jr. is a 52 y.o. right handed male who presents with chief complaint of Numbness; Weakness; and Tremors PCP: Sal Wright, [facility] Current visit Dx include: 1. Bilateral carpal tunnel syndrome 2. Occipital neuralgia of right side 3. Tubular adenoma of colon. Repeat colonoscopy in APR 2019 4. Vasovagal syncope 5. Essential hypertension 6. BMI 35-39.9 7. Anxiety Impression Paresthesia of the hands associated with exercise or after falling asleep that might wake him up feeling like shaking his hands was initiated with inside feeling of tremors in his upper extremities. 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 He had multiple issues with vague symptoms that was diagnosed as Lyme disease although his immunologic testing were negative and he had been on multiple antibiotics by different Lyme specialist that not really help. He had musculoskeletal symptoms of the lower extremities however not the clear ones that would raise the suspicion for peripheral polyneuropathy. His deep tendon reflexes are brisk 2+ in the lower extremities with no significant sensory loss or motor weakness. He did not have EMG/NCS of the lower extremities and I do not think he needs to do one unless his symptoms gets worse. Plan: 1) EMG/NCS was done by Dr. Fabiano goodwin in [facility] carpal tunnel syndrome n in [facility] and some of bilateral 2) clinical neurologic exam he does not have evidence of peripheral polyneuropathy in the lower extremities 3) I do not think he will need neuropathic pain treatment Lyrica or gabapentin 4) referral to Dr. Devante Mejía of [facility] for management of carpal tunnel syndrome 5) I advised the use of stretching exercises of the wrist and CTS splint 6) if his neuropathic symptoms of the lower extremity gets worse I would recommend that he comes back for EMG/NCS of the lower extremities >50% of our 30 minute??visit was spent in counseling and coordination of care Subjective: HPI Mr. Avery is a pleasant 52 years old right-handed male with history of occipital neuralgia, bilateral carpal tunnel syndrome that seems to be getting worse, anxiety, essential hypertension, and vasovagal syncope who had extensive workup done in August 2016 with negative MRI of the brain, MRA of the neck and brain, and EEG. He did not visit. Management for occipital nerve block as advised in the previous visit. He was busy due to issues with generalized musculoskeletal symptoms that werethought to be secondary to Lyme disease and he visited multiple specialist in the area and he took multiple antibiotics to get rid of the symptoms which was not successful. In the process of his evaluation between Lyme disease specialist, DANY, and his primary care physician he was told that he had peripheral polyneuropathy of the lower extremities though he does not have the cardinal signs for that disease. He declines having weakness, paresthesia, muscle cramps, restless leg symptoms, or radiculopathy like symptoms of the lower extremities. His EMG/NCS done recently in [place] of the upper extremities shows evidence of moderate severity bilateral carpal tunnel syndrome without evidence of cervical radiculopathy or brachial plexopathy. He did not have EMG/NCS of the lower extremities. He was advised to use Lyrica 50 mg twice a however his insurance denied the medication and he was knocked over a number neuropathic medications and I do not think he needs to. Follow Up: Return if symptoms worsen or fail to improve, for Follow up. Active Problems: He has Essential hypertension; Asthma; BMI 35-39.9; Tubular adenoma of colon. Repeat colonoscopy in APR 2019; Anxiety; Occipital neuralgia of right side; Bilateral carpal tunnel syndrome; and Vasovagal syncope on his problem list. Current Medications: amoxicillin (AMOXIL) 250 MG CAPS Take 250 mg by mouth every 8 hours. azithromycin (ZITHROMAX) 250 MG tablet Take 500 mg by mouth at bedtime. cefUROXime (CEFTIN) 250 MG/5ML SUSR clarithromycin (BIAXIN) 250 MG TABS 500 mg every 12 hours . doxycycline hyclate (VIBRAMYCIN) 100 MG capsule nystatin (MYCOSTATIN) cream rifAMPin (RIFADIN) 300 MG CAPS Allergies: He has No Known Allergies. I [...] The patientis nervous/anxious. The patient is not hyperactive Diagnostic Data: WBC Count Date/Time Value Ref Range Status 12/31/2017 11:09 AM 5.9 4.8 - 10.8 10*3/uL Final Hgb Date/Time Value Ref Range Status 12/31/2017 11:09 AM 15.8 14.0 - 18.0 g/dL Final Hct Date/Time Value Ref Range Status 12/31/2017 11:09 AM 44.9 42.0 - 52.0 % Final Platelet Count Date/Time Value Ref Range Status 12/31/2017 11:09 AM 184 150 - 450 10*3/uL Final Glucose (serum) Date/Time Value Ref Range Status 12/31/2017 11:09 AM 105 (H) 65 - 100 mg/dL Final Sodium Date/Time Value Ref Range Status 12/31/2017 11:09 AM 137 135 - 145 mmol/L Final Potassium Date/Time Value Ref Range Status 12/31/2017 11:09 AM 4.1 3.4 - 5.3 mmol/L Final Chloride Date/Time Value Ref Range Status 12/31/2017 11:09 AM 102 98 - 107 mmol/L Final CO2 Venous Date/Time Value Ref Range Status 12/31/2017 11:09 AM 28.8 21.0 - 31.0 mmol/L Final Blood Urea Nitrogen Date/Time Value Ref Range Status 12/31/2017 11:09 AM 14 8 - 22 mg/dL Final Creatinine Date/Time Value Ref Range Status 12/31/2017 11:09 AM 0.9 0.7 - 1.2 mg/dL Final Calcium Date/Time Value Ref Range Status 12/31/2017 11:09 AM 9.6 8.6 - 10.3 mg/dL Final GFR Date/Time Value Ref Range Status 12/31/2017 11:09 AM >60 mL/min/1.73 sqm Final Comment: Notes for GFR: 1. Multiply result by 1.21 if patient is black/. 2. Chronic kidney disease: <60 mL/min/1.73 sq.m. Renal Failure: <15 mL/min/1.73 sq.m. Albumin Date/Time Value Ref Range Status 12/31/2017 11:09 AM 4.5 3.5 - 4.9 g/dL Final Comment: Result reflects use of Bromocresol Green Methodology. Bilirubin Total Date/Time Value Ref Range Status 12/31/2017 11:09 AM 0.8 0.2 - 1.2 mg/dL Final Alkaline Phosphatase Date/Time Value Ref Range Status 12/31/2017 11:09 AM 51 34 - 104 U/L Final AST (SGOT) Date/Time Value Ref Range Status 12/31/2017 11:09 AM 14 13 - 40 U/L Final ALT (SGPT) Date/Time Value Ref Range Status 12/31/2017 11:09 AM 19 7 - 52 U/L Final Objective: Vitals: Visit Vitals BP 120/80 Pulse 70 Ht 1.753 m (5' 9 ) Wt 105 kg (231 lb) BMI 34.11 kg/m?? Physical Exam Constitutional: He appears well-developed and well-nourished. No distress. Head: Normocephalic and atraumatic. Mouth/Throat: No oropharyngeal [...] deformity. Lymphadenopathy: He has no cervical adenopathy. Skin: Warm and dry. No ecchymosis or rash. Skin: Skin is warm and dry. No rash is noted.He is not diaphoretic. No erythema. No pallor. Neurologic Exam Mental status: Alert, awake and [...] prick, sense of position, and vibration in lower extremities. Decreased light touch, pinprick, and sense of temperature in median nerve distribution bilaterally. Tinel sign is positive bilaterally. Phalen sign is negative DTR: 2+ in upper and lower extremities, plantars down going bilateral Cerebellar: intact finger nose finger and heel knee gomez testing bilateral. No ataxia or tremors. Gait: normal, able to walk tandem without difficulty Psychiatric: He has a normal mood and affect. His behavior is normal. Judgment and thought content normal. documented in this encounter Plan of Treatment Not on file documented as of this encounter Visit Diagnoses Diagnosis Bilateral carpal tunnel syndrome- Primary Carpal tunnel syndrome Occipital neuralgia of right side Tubular adenoma of colon. Repeat colonoscopy in APR 2019 Benign neoplasm of colon Vasovagal syncope Syncope and collapse Essential hypertension Unspecified essential hypertension BMI 35-39.9 Obesity, unspecified Anxiety Anxiety state, unspecified documented in this encounter Care Teams Floor Person Relationship Specialty Start Date End Date Sal Wright DO PCP - General 08/28/12 04/11/18 Kilo Wang MD Consulting Physician Neurology 08/30/16 12/01/21 Juan Haddad MD [address] [place] [address] Otolaryngology 09/23/17 documented as of this encounter
--- OUTSIDE RECORDS SUMMARY | 2024-06-24 04:39 | XMS_ITS | Encounter Summary ---
Author Organization [facility] alth Address [address] [place] [address] Care Team Providers Care Design And Sales Consultant Name Role Phone Sal Wright DO Primary Care Provider [phone] Kilo Wang MD Unavailable [phone] Juan Haddad MD Unavailable [phone] Reason for Referral * Test/Procedure/Other (Routine) - Authorized Specialty Diagnoses / Procedures Referred By Donald carvajal Referred To Contact Orthopedic Surgery Diagnoses Bilateral carpal tunnel syndrome Pre-operative exam Procedures [id number], [id number] Devante Portillo DO [address] [place] [address] Phone: tel: fax: Devante Portillo DO [address] [place] [address] Phone: tel: fax: Referral ID Status Reason Start Date Expiration Date Visits Requested Visits Authorized [id number] Authorized Co-manageme nt Until Stable 01/26/2018 01/26/2019 2 2 Question Answer Operation to be Scheduled Right carpal tunnel release under local anesthesia. Left carpal tunnel release and left cubital tunnel release with possible anterior transfer proximally 3 weeks later Procedure Urgency Elective Length of Procedure Procedure Type Day Surgery Surgery Location [facility] Reason for Visit * Reason Comments Carpal Tunnel bilateral hands * New Consult/Second Opinion (Routine) - Closed Specialty Diagnoses / Procedures Referred By Contac t Referred To Contact Diagnoses carpal tunnel Procedures CONSULT [facility] Kilo Wang MD [address] [place] [address] Phone: tel: fax: Devante Portillo, DO [address] [place] [address] Phone: tel: fax: Referral ID Status Reason Start Date Expiration Date Visits Re quested Visits Authorized [id number] Closed 01/23/2018 01/23/2019 1 1 Encounter Details Date Type Department Care Team (Late st Contact Info) Description 01/26/2018 3:00 PM EDT Office Visit [facility] [address] [facility] [place] [address] Devante Portillo, DO [address] [place] [address] Bilateral carpal tunnel syndrome (Primary Dx); Cubital tunnel syndrome on left; Pre-operative exam Discharge Disposition: Home/Self Care Social History Tobacco [...] - - Weight 104 kg (230 lb) 01/26/2018 3:05 PM EDT Height 182.9 cm (6') 01/26/2018 3:05 PM EDT Body Mass Index 31.19 01/26/2018 3:05 PM EDT documented in this encounter Progress Notes * Devante Portillo, DO - 01/26/2018 3:06 PM EDT Assessment & Plan: Bilateral carpal tunnel syndrome, right is severe. Left cubital tunnel syndrome. We discussed options of treatment. I recommended surgery for both carpal tunnels and left cubital tunnel. Surgeries, the postop course, usual recovery, chance of success, potential complications of infection, neurovascular injury, stiffness, persistent or recurrent symptoms, instability of the ulnar nerve, etc. Right carpal tunnel is severe. He atrophy will not resolve. Hopefully the numbness will improve but probably will not return to normal. He understands all this and wishes to proceed. We will make arrangements for a right carpal tunnel release under local anesthesia followed by a left carpal tunnel release and decompression of the left ulnar nerve with possible anterior transfer. This will be performed 3 weeks later under general anesthesia. All questions were answered. Current visit Dx include: 1. Bilateral carpal tunnel syndrome 2. BMI 35-39.9 3. Pre-operative exam 4. Cubital tunnel syndrome on left Order Summary Normal Orders This Visit [facility] PERFORMED PROCEDURE Imaging Results: No results found. Subjective: HPI Robert Alexis Jr. is a 52 y.o. male who presents with pain and numbness in both hands. Since his been present for 30 years. He used to work a [employer] male years ago. He indicates that he was having symptoms at that time. He tried braces but cannot tolerate them. He was actually scheduled for aleft carpal tunnel release many years ago but canceled the surgery and has been putting up with pain ever since then. It awakens him at night and also bothersome during the day.. He notes weakness inthe hand. All the fingers are involved with numbness. He is right-hand dominant. 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 Objective: Vitals: Visit Vitals Ht 1.829 m (6') Wt 104 kg (230 lb) BMI 31.19 kg/m?? Review of Systems Constitutional: Negative for chills, diaphoresis and fever. Respiratory: Negative for shortness of breath. Cardiovascular: Negative for chest pain. Gastrointestinal: Negative for nausea and vomiting. Physical Exam Ortho Exam Skin is intact. On the right side there is significant atrophy of the thenar muscles. He has severeweakness of abduction of the thumb. He can barely appose but also has significant weakness with this. He is able to abduct the fingers and has good extension strength. Other muscle groups in the right upper extremity are strong. Sensation is significantly diminished in all fingers but less diminished in the fifth. Circulation is intact. On the left side thenar atrophy is less pronounced. But he still has at least moderate weakness of abduction and opposition. He also has significant weakness ofabduction of the fingers and also flexion of the fourth and fifth DIP joints. He is very tender over the ulnar nerve at cubital tunnel with positive Tinel's. EMGs indicate bilateral carpal tunnel syndrome and left cubital tunnel syndrome. Allergies: He has No Known Allergies. Past Medical History: He has no past medical history on file. Past Surgical History: He has a past surgical history that includes ENDOSCOPY, ESOPHAGUS; HX Colonoscopy; and hx cyst removal. Social History: He reports that he has never smoked. His smokeless tobacco use includes Chew. He reports that he does not drink alcohol or use drugs. Family History: His family history is not on file. Current Medications: amoxicillin (AMOXIL) 250 MG CAPS Take 250 mg by mouth every 8 hours. azithromycin (ZITHROMAX) 250 MG tablet Take 500 mg by mouth at bedtime. cefUROXime (CEFTIN) 250 MG/5ML SUSR clarithromycin (BIAXIN) 250 MG TABS 500 mg every 12 hours . doxycycline hyclate (VIBRAMYCIN) 100 MG capsule nystatin (MYCOSTATIN) cream rifAMPin (RIFADIN) 300 MG CAPS Active Problems: He has Essential hypertension; Asthma; BMI 35-39.9; Tubular adenoma of colon. Repeat colonoscopy in APR 2019; Anxiety; Occipital neuralgia of right side; Bilateral carpal tunnel syndrome; Vasovagal syncope; and Cubital tunnel syndrome on left on his problem list. documented in this encounter Miscellaneous Notes * Addendum Note - Sudha Quintanilla - 01/31/2018 12:59 PM EDTAddended by: SUDHA QUINTANILLA on: 01/31/2018 12:59 PM Modules accepted: Level of Service documented in this encounter Plan of Treatment Scheduled Referrals Name Type Priority Associated Diagnoses Order Schedule [facility] Outpatient Referral Routine Bilateral carpal tunnel syndrome Pre-operative exam Ordered: 01/26/2018 documented as of this encounter Visit Diagnoses Diagnosis Bilateral carpal tunnel syndrome- Primary Carpal tunnel syndrome Cubital tunnel syndrome on left Lesion of ulnar nerve Pre-operative exam Preoperative examination, unspecified documented in this encounter Care Teams Design And Sales Consultant Relationship Specialty Start Date End Date Sal Wright DO PCP - General 08/28/12 04/11/18 Kilo Wang MD Consulting Physician Neurology 08/30/16 12/01/21 Juan Haddad MD [address] [place] [address] Otolaryngology 09/23/17 documented as of this encounter
--- OUTSIDE RECORDS SUMMARY | 2024-06-24 04:39 | XMS_ITS | Encounter Summary ---
Author Organization [facility] alth Address [address] [facility] [place] [address] Care Team Providers Care Feeder Associate Name Role Phone Sal Wright DO Primary Care Provider [phone] Reason for Visit * Reason Comments Other see HPI * New Consult/Second Opinion (Routine) - Closed Specialty Diagnoses / Procedures Referred By Contac t Referred To Contact Gastroenterology Diagnoses Epigastric pain Sal Wright DO Phone: tel: fax: [facility] [address] [facility] [place] [address] Phone: tel: fax: Referral ID Status Reason Start Date Expiration Date Visits Re quested Visits Authorized [id number] Closed 04/14/2016 06/19/2016 20 20 Encounter Details Date Type Department Care Team ([facility] Contact Info) Description 04/15/2016 8:45 AM EDT Office Visit [facility] [address] [facility] [place] [id number] Bev Loaiza CRNP [address] [facility] [place] [place] [address] Generalized abdominal pain (Primary Dx); Weight loss, unintentional; Change in bowel habits; FH: colon cancer Discharge Disposition: Home/Self Care Social [...] Sign Reading Time Taken Comments Blood Pressure 150/88 04/15/2016 8:20 AM EDT Pulse 70 04/15/2016 8:20 AM EDT Temperature - - Respiratory Rate - - Oxygen Saturation - - Inhaled Oxygen Concentration - - Weight 108 kg (237 lb) 04/15/2016 8:20 AM EDT Height 182.9 cm (6') 04/15/2016 8:20 AM EDT Body Mass Index 32.14 04/15/2016 8:20 AM EDT documented in this encounter Patient Instructions * Patient Instructions* Shannon Morris MA - 04/15/2016 9:20 AM EDT Images from the original note were not included. 1. Antireflux diet instructions 2. Continue Omeprazole 20mg every day, Take one tablet twice a day, 30 minutes before breakfast and30 minutes before dinner 3. Continue Dicyclomine 20mg, 2 or 3 times a day before meals as needed for abdominal pain 4. Colonoscopy with EGD and small bowel biopsy, with anyone within 1-2 weeks, [facility] 5. The patient is to follow up with his family physician within a few weeks for the possible left adrenal adenoma 6. Office visit after above Gastroesophageal Reflux Disease (GERD): Care Instructions Your Care Instructions Gastroesophageal reflux disease (GERD) is the backward flow of stomach acid into the esophagus. Theesophagus is the tube that leads from your throat to your stomach. A one-way valve prevents the stomach acid from moving up into this tube. When you have GERD, this valve does not close tightly enough. If you have mild GERD symptoms including heartburn, you may be able to control the problem with antacids or ujbq-xyh-unwtldu medicine. Changing your diet, losing weight, and making other lifestyle changes can also help reduce symptoms. Follow-up care is a zelaya part of your treatment and safety. Be sure to make and go to all appointments, and call your doctor if you are having problems. It???s also a good idea to know your test results and keep a list of the medicines you take. How can you care for yourself at home? ?? Take your medicines exactly as prescribed. Call your doctor if you think you are having a problem with your medicine. ?? Your doctor may recommend cjxr-zzh-xlhkgla medicine. For mild or occasional indigestion, antacids, such as Tums, Gaviscon, Mylanta, or Maalox, may help. Your doctor also may recommend vfdy-gvf-nppsqnq acid reducers, such as Pepcid AC, Tagamet HB, Zantac 75, or Prilosec. Read and follow all instructions on the label. If you use these medicines often, talk with your doctor. ?? Change your eating habits. ?? It???s best to eat several small meals instead of two or three large meals. ?? After you eat, wait 2 to 3 hours before you lie down. ?? Chocolate, mint, and alcohol can make GERD worse. ?? Spicy foods, foods that have a lot of acid (like tomatoes and oranges), and coffee can make GERDsymptoms worse in some people. If your symptoms are worse after you eat a certain food, you may want to stop eating that food to see if your symptoms get better. ?? Do not smoke or chew tobacco. Smoking can make GERD worse. If you need help quitting, talk to your doctor about stop-smoking programs and medicines. These can increase your chances of quitting forgood. ?? If you have GERD symptoms at night, raise the head of your bed 6 to 8 inches by putting the frame on blocks or placing a foam wedge under the head of your mattress. (Adding extra pillows does not work.) ?? Do not wear tight clothing around your middle. ?? Lose weight if you need to. Losing just 5 to 10 pounds can help. When should you call for help? Call your doctor now or seek immediate medical care if: ?? You have new or different belly pain. ?? Your stools are black and tarlike or have streaks of blood. Watch closely for changes in your health, and be sure to contact your doctor if: ?? Your symptoms have not improved after 2 days. ?? Food seems to catch in your throat or chest. Where can you learn more? Go to www.[employer].net/lgh. Enter T927 in the search box to learn more about Gastroesophageal Reflux Disease (GERD): Care Instructions. Current as of: May 09, 2015 Content Version: 11.0 ?? [id number] [employer]. Care instructions adapted under license by your healthcare professional. If you have questions about a medical condition or this instruction, always ask your healthcare professional. [employer] disclaims any warranty or liability for your use of this information. documented in this encounter Progress Notes * Shannon Morris MA - 04/15/2016 8:17 AM EDT Robert Alexis roomed by: Shannon Morris. Sal Wright DO Robert Alexis discharged by: Shannon Morris MA. * Bev Loaiza CRNP - 04/14/2016 1:45 PM EDT Subjective: Robert Alexis is a 51 y.o. male who presents for an urgent evaluation of abdominal pain. Thank you for the kind referral. The patient is accompanied by his , Patience. The patient indicates he has hadintermittent abdominal pain of varying degrees over the past several weeks, occasionally improved with eating, bowel movements or movement. He started Omeprazole 20mg daily, a week ago without improvement, he was added Dicyclomine 20mg TID on Tuesday. Since this regimen, his pain is markedly improved. He does note that the pain was exacerbated by eating 3 helpings of spaghetti one night. He notes a lot of belching. He has also had a change in his bowel habits over the past several weeks from having bowel movements twice a day, with diarrhea a few times a month, to developing sensation wherehe has to have a bowel movement but doesn't. He has had an unexplained weight loss of 10-15 pounds during this time. He denies nocturnal bowel movements, rectal bleeding, nausea, vomiting, heartburn o r dysphagia. His mother was diagnosed with colon cancer at age 66. The patient denies ever having acolonoscopy. His CT scan showed a possible right adrenal adenoma with the recommendation to consider an MR exam. PMH: HTN, Childhood Asthma, Obesity, Congenital absence of left kidney Denies CAD, COPD, Asthma, CVA, TIA, MARY, DM, Seizures PSH: Denies P/S Hx: , positive tobacco (chews), denies alcohol Allergies: PCN Medications: Omeprazole 20mg every day, Dicyclomine 20mg TID Current prescriptions, araa-weu-wndejoy medications, herbal medications and vitamin/mineral/dietarysupplements have been documented during this encounter and the patient denies taking any other medications not listed above. FH: Positive colon cancer (mother) Review of Systems All other systems reviewed and are negative. Objective: Vitals: Visit Vitals ??? BP 150/88 ??? Pulse 70 ??? Ht 1.829 m (6') ??? Wt 108 kg (237 lb) ??? BMI 32.14 kg/m2 Physical Exam Constitutional: He is oriented to person, place, and time. He appears well- developed and well-nourished. HENT: Head: Normocephalic and atraumatic. Mouth/Throat: No oropharyngeal exudate. Eyes: Conjunctivae are normal. No scleral icterus. Neck: Neck supple. No JVD present. No tracheal deviation present. Cardiovascular: Normal rate and regular rhythm. Pulmonary/Chest: Effort normal and breath sounds normal. No respiratory distress. Abdominal: Soft. Bowel sounds are normal. He exhibits no distension, no abdominal bruit, no ascitesand no mass. There is no hepatosplenomegaly. There is no tenderness. There is no guarding. Musculoskeletal: He exhibits no edema or tenderness. Lymphadenopathy: He has no cervical adenopathy. Neurological: He is alert and oriented to person, place, and time. Skin: Skin is warm and dry. Psychiatric: He has a normal mood and affect. His behavior is normal. Vitals reviewed. Diagnostic Data: 04/07/16 CMP normal except TB 1.3, Lipase 22, CBC normal, U/A negative glucose, blood, routine 03/14/16 CT scan A&P with contrast (RLQ [...] MR exam. ? [facility] exams performed by [facility] [...] 1. Generalized abdominal pain with unexplained weight loss and change in bowel movements with a family history of colon cancer. His pain is less with Omeprazole and Dicyclomine. Differentials includePUD versus versus biliary versus IBS, though that should not cause weight loss, less likely inflammatory bowel disease, malabsorption or neoplasm 2. There is a probable left adrenal adenoma. If clinically indicated, this would be better evaluated by MR exam. 3. Childhood Asthma, asymptomatic Plan: 1. Antireflux diet instructions 2. Continue Omeprazole 20mg every day, Take one tablet twice a day, 30 minutes before breakfast and30 minutes before dinner 3. Continue Dicyclomine 20mg, 2 or 3 times a day before meals as needed for abdominal pain 4. Colonoscopy with EGD and small bowel biopsy, with anyone within 1-2 weeks, [facility] 5. The patient is to follow up with his family physician within a few weeks for the possible left adrenal adenoma 6. Office visit after above The patient was counseled on the above listed differentials. The patient was counseled on the potential side effects of the anticholinergics including dry mouth, constipation, dizziness and glaucoma changes, in addition to a contraindication with glaucoma. The patient was counseled on the potentialrisks of the procedures to include bleeding, infection, perforation (resulting in urgent surgery and possible ) and missed cancer/polyps. The patient was also counseled on the potential risks ofanesthesia including cardiopulmonary complications. Thank you for allowing [facility] to participate in the care of Robert Alexis and we will keep you informed of our findings. documented in this encounter Plan of Treatment Not on file documented as of this encounter Visit Diagnoses Diagnosis Generalized abdominal pain- Primary Abdominal pain, generalized Weight loss, unintentional Loss of weight Change in bowel habits Other symptoms involving digestive system FH: colon cancer Family history of malignant neoplasm of gastrointestinal tract documented in this encounter Care Teams Feeder Associate Relationship Specialty Start Date End Date Sal Wright DO PCP - General 08/28/12 04/11/18 documented as of this encounter
--- OUTSIDE RECORDS SUMMARY | 2024-06-24 04:39 | XMS_ITS | Encounter Summary ---
Author Organization [facility] alth Address [address] [place] [address] Care Team Providers Care Medical Detailist Name Role Phone Sal Wright DO Primary Care Provider [phone] Kilo Wang MD Unavailable [phone] Juan Haddad MD Unavailable [phone] Encounter Details Date Type Department Care Team (Latest Contact Info) Description 02/13/2018 3:30 PM EDT - 02/13/2018 11:59 PM [place] [address] [place] [address] Discharge Disposition: Home/Self Care Social History Tobacco [...] filedocumented in this encounter Care Teams Medical Detailist Relationship Specialty Start Date End Date Sal Wright DO PCP - General 08/28/12 04/11/18 Kilo Wang MD Consulting Physician Neurology 08/30/16 12/01/21 Juan Haddad MD [address] [place] [place] [address] Otolaryngology 09/23/17 documented as of this encounter
--- OUTSIDE RECORDS SUMMARY | 2024-06-24 04:39 | XMS_ITS | Encounter Summary ---
Author Organization [facility] Address [address] [place] [address] Care Team Providers Care Mortarman Name Role Phone Sal Wright DO Primary Care Provider [phone] Reason for Visit * Reason Comments Syncope * Auth/Cert Specialty Diagnoses / Procedures Referred By Contac t Referred To Contact Hosp-Obsv Diagnoses syncope [facility] [address] [address] Phone: tel: fax: Referral ID Status Reason Start Date Expiration Date Visits Re quested Visits Authorized [id number] Encounter Details Date Type Department Care Team ([facility] Contact Info) Description 05/08/2016 6:49 PM EST - 05/10/2016 6:12 PM EST Emergency [facility] [address] [address] Matthew Avery DO [address] [place] [address] [address] [place] [address] Nito Van MD [address] [address] Mynor Mcpherson MD [address] [address] Husam Richard MD [address] [address] Syncope and collapse Discharge Disposition: Home/Self Care Social History Tobacco Use Types Packs/Day Years Used Date Smoking Tobacco: Never Smokeless Tobacco: Current Chew Tobacco Cessation:Ready to Q uit: Yes; Counseling Given: No Comments:chewing tobacco 2 cans/week [...] Reading Time Taken Comments Blood Pressure 132/84 05/10/2016 12:00 PM EST Pulse 106 05/10/2016 12:00 PM EST Temperature 36.6 ??C (97.9 ??F) 05/10/2016 11:[address] Respiratory Rate 18 05/10/2016 12:00 PM EST Oxygen Saturation 95% 05/10/2016 12:00 PM EST Inhaled Oxygen Concentration - - Weight 101 kg (222 lb) 05/08/2016 10:35 PM EST Height 180.3 cm (5' 11 ) 05/08/2016 10:35 PM EST Body Mass Index 30.96 05/08/2016 10:35 PM EST documented in this encounter Discharge Summaries * Marek Jenniffer, CRNP - 05/09/2016 2:58 PM EST PATIENT SPECIFIC INFORMATION ENCOUNTER SPECIFIC INFORMATION NAME: Carter Gomes Jr. ADMIT DATE AND TIME: 05/08/2016 6:49 PM DISCHARGE DATE: 05/10/2016 AGE:51 y.o. HOSPITAL STAY: 2 days GENDER: male ATTENDING PROVIDER: Husam Richard MD PCP: Sal Wright DO ADMITTING PROVIDER: Nito Van MD ADMITTING DIAGNOSES: Syncope and collapse [R55] Secondary Diagnoses: DISCHARGE DIAGNOSES: Active Hospital Problems Diagnosis ??? Tubular adenoma of colon. Repeat colonoscopy in APR 2019 ??? BMI 35-39.9 ??? HTN (hypertension) ??? Asthma Resolved Hospital Problems Diagnosis ??? *Syncope and collapse ??? Nonintractable episodic headache HOSPITAL COURSE (Care, treatment, medication changes, services provided, & complications): 05/08 Lurdes Hussein: Carter Gomes Jr. is a 51 y.o. male who presents with 3 syncopal episodes today in which he feels lightheaded and then falls to the ground losing consciousness and then gains consciousness within seconds. Pt not sure if he hit his head. Pt denies any SOB, CP, n/v, diaphoresis with the episode Pt reports also right occipital numbness that started 3 weeks ago and b/l knee numbness that started 1 week ago. Pt had a colonoscopy 3 weeks ago, did not feel well, saw PCP, and then went to Urgent Care 1 week later for complaints of his occipital numbness and fatigue, was started on Doxy for suspected Lyme. Since then, lyme titers have come negative and pt stopped the Doxy yesterday for fear that it may exaggerate his symptoms. Pt was then seen in ER 05/06 for syncopal event and head numbness where his head CT was negative and discharged home with recommendation to see a neurologist outpatient. (He has not seen neurologist yet.) 1. Syncope: ACS ruled out, considering dehydration vs. Viral illness, EEG neg, telemetry unrevealing, f/u PCP 2. Right sided headache/numbness: no loss of sensation. MRI brain neg. NAL c/s appreciated, f/u 2 weeks if symptoms not resolved.?? 3. B/l knee discomfort: likely msk, no signs of deformity/injury. Prn tylenol. F/u with PCP. 4. Hand numbness: chronic intermittent issue d/t carpal tunnel. F/u as outpatient w/ PCP. 5. HTN;BP stable. No meds. 6. Asthma: no wheezes noted. 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 7. Anxiety: contributes to symptoms 8. Hx tubular adenoma of colon: Pt does not take Prilosec or Bentyl. followed by [facility]. F/U scheduledfor 05/2016. 9. Obesity: impacts all aspects of care. Pt does report 25 pound weight loss though in past 3 months due to stressors. 05/09: patient reports he is feeling better, just notes general stress. He describes a numb feelingto right side of head and both knees but has no loss of sensation, both come intermittently, but not necessarily with any specific provoking factors. No vision loss, just some farsightedness and recently had normal ophtho exam. No scalp pain or pain with mastication. Sometimes the numb feeling in the head feels like it goes to his eyes. No dental pain. He denies knee injury, no redness to area. Also c/o intermittent numbness to both hands, ongoing, from his carpal tunnel. 05/10: 05/10/2016 JESSIE VILLARREAL The patient is seen lying in bed this morning in the presence of his spouse. POC has been discussedwith the bedside RN/Elisabeth Called to bedside urgently by nursing at the request of the pts as she felt the patient was beginning to experience an episode . The patient describes a variety of symptoms. He first notes onset of left occipital numbness which at times radiates superiorly though only rarely extends beyond midline. This numbness then extends to his hands/arms. This is followed by an aching in his knees bilaterally with subsequent mild shortness of breath, myalgias and extreme fatigue with subsequent I feel like i'm going to crawl out of my skin with energy like I have to get up and move . The patient notes improvement in symptoms with mobility. He denies any facial pain. He states he also noted improved symptoms with administration of IVF. 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 This could possibly be a variant of viral presentation in the setting of recent abdominal pain and a negative GI evaluation. EEG returned wnl as reviewed by Dr. Greene. Late day,the patient noted improvement in his symptoms of right lateral occipital numbness if he put his glasses on or was wearing a hat. No significant findings were noted on quite an extensive workup. The patient had stable VS, was tolerating diet and independently ambulating. He was discharged to home with close follow up as noted above. PROCEDURES (Operations, Cath/Ep, Endo, IVU, etc): none MAJOR DIAGNOSTIC TESTS (MRI, CT, ECHO, etc): 05/10/2016 Echo = INTERPRETATION SUMMARY The estimated Ejection Fraction is 70-75%. Findings indicate normal LV diastolic function Left atrial size is normal. There is no evidence for aortic stenosis. There is no evidence of aortic insufficiency There is no evidence for pericardial effusion. 05/06 CT Head - no acute abnormalities 05/10/2016 MR brain - no acute abnormalities 05/10/2016 EEG - wnl PROVISIONS FOR FOLLOW-UP CARE: Follow Up Instructions/Referrals Patient Follow Up: Complete by: As directed Follow Up With: Dr. Wang Reason For Follow Up: hospital follow up When to Follow Up: 2 weeks How to Schedule Follow Up: Patient to Schedule Patient Follow Up: PCP Complete by: As directed Follow Up With: Primary Care Provider Reason For Follow Up: hospital follow up When to Follow Up: 1-2 days How to Schedule Follow Up: Patient to Schedule DISCHARGE INSTRUCTIONS & INFORMATION TO PATIENT & FAMILY: Diet Continue Current Diet CURRENT DIET DIET REGULAR: Number of Occurrences: Until Specified Activity Instructions Activity as Tolerated May resume normal activity level as tolerated. May Resume Driving (See Comments) May resume driving once cleared by PCP. See after visit summary for additional information provided to patient and family. CONDITION AT DISCHARGE AND DISPOSITION: Stable condition and discharged to home Readmission Risk Score Medium Risk 1 L 3 A 2 C 3 E Hospital Code Status Date Active Code Status Order ID Comments User Context 05/08/2016 11:33 PM Full Code [id number] Michelle Hussein CRNP ED TOTAL TIME SPENT IN PATIENT CARE DURING DISCHARGE: 45 min DISCHARGE MEDICATIONS: See attached medication list or after visit summary (if list is not attached) for discharge medications. documented in this encounter Discharge Instructions * Discharge Instructions* Jenniffer Jara CRNP - 05/10/2016 5:45 PM EST Images from the original note were not included. Fainting: Care Instructions Your Care Instructions When you faint, or pass out, you lose consciousness for a short time. A brief drop in blood flow tothe brain often causes it. When you fall or lie down, more blood flows to your brain and you regainconsciousness. Emotional stress, pain, or overheating--especially if you have been standing--can make you faint. In these cases, fainting is usually not serious. But fainting can be a sign of a more serious problem. Your doctor may want you to have more tests to rule out other causes. The treatment you need depends on the reason why you fainted. The doctor has checked you carefully, but [...] yourself at home? ?? Drink plenty of fluids to prevent dehydration. If you have kidney, heart, or liver disease and have to limit fluids, talk with your doctor before you increase your fluid intake. When should you call for help? Call 911 anytime you think you may need emergency care. For example, call if: ?? You have symptoms of a heart problem. These may include: ?? Chest pain or pressure. ?? Severe trouble breathing. ?? A fast or irregular heartbeat. ?? Lightheadedness or sudden weakness. ?? Coughing up pink, foamy mucus. ?? Passing out. After you call 911, the pierce and shave press operator may tell you to chew 1 adult-strength or 2 to 4 low-dose aspirin. Wait for an ambulance. Do not try to drive yourself. ?? You have symptoms of a stroke. [...] is different from past headaches. ?? You passed out (lost consciousness) again. Watch closely for changes in your health, and be sure to contact your doctor if: ?? You do not get better as expected. Where can you learn more? Go to www.[employer].net/lgh. Enter A848 in the search box to learn more about Fainting: Care Instructions. Current as of: November 14, 2015 Content Version: 11.0 ?? [id number] [employer]. Care instructions adapted under license by your healthcare professional. If you have questions about a medical condition or this instruction, always ask your healthcare professional. [employer] disclaims any warranty or liability for your [...] 04/16/2016 6 documented as of this encounter Progress Notes * Jenniffer Jara CRNP - 05/10/2016 5:[address] Greene reports that EEG is normal. Discussed results with patient. Planning discharge this evening. * Jenniffer Jara CRNP - 05/10/2016 3:15 PM EST Met with patient and spouse. Still waiting for EEG result/Neuro follow up. Patient notes mild improvement in his symptoms but seems most concerned with the numbness he continues to experience on the left lateral side of his head. Will continue IVF and pend timing of discharge on EEG findings. * Jenniffer Jara CRNP - 05/10/2016 9:39 AM EST Impression/ Plan 1. Syncope: ACS ruled out, considering dehydration vs. TIA vs. Viral illness. Ortho BP's slightly positive by HR; bolus ordered this a.m followed by 125 /hr x1 liter. Neuro following, EEG pending 2. Right sided headache/numbness: no loss of sensation. MRI brain neg. NAL c/s appreciated. 3. B/l knee discomfort: likely msk, no signs of deformity/injury. Prn tylenol. F/u with PCP. 4. Hand numbness: chronic intermittent issue d/t carpal tunnel. F/u as outpatient w/ PCP. 5. HTN;BP stable. No meds. 6. Asthma: no wheezes noted. 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 7. Anxiety: contributes to symptoms 8. Hx tubular adenoma of colon: Pt does not take Prilosec or Bentyl. followed by [facility]. F/U scheduledfor 05/2016. 9. Obesity: impacts all aspects of care. Pt does report 25 pound weight loss though in past 3 months due to stressors. 10. VTE Prophylaxis: Observation status. Low risk. Ambulatory. 11. Nutrition: Cardiac Diet. 12. Code Status: Full Code. 13. Disposition: Prior residence at discharge. 14. PCP: Sal Wright DO History of Present Illness 05/08 Lurdes Hussein: Carter Gomes Jr. is a 51 y.o. male who presents with 3 syncopal episodes today in which he feels lightheaded and then falls to the ground losing consciousness and then gains consciousness within seconds. Pt not sure if he hit his head. Pt denies any SOB, CP, n/v, diaphoresis with the episode Pt reports also right occipital numbness that started 3 weeks ago and b/l knee numbness that started 1 week ago. Pt had a colonoscopy 3 weeks ago, did not feel well, saw PCP, and then went to Urgent Care 1 week later for complaints of his occipital numbness and fatigue, was started on Doxy for suspected Lyme. Since then, lyme titers have come negative and pt stopped the Doxy yesterday for fear that it may exaggerate his symptoms. Pt was then seen in ER 05/06 for syncopal event and head numbness where his head CT was negative and discharged home with recommendation to see a neurologist outpatient. (He has not seen neurologist yet.) 05/09: patient reports he is feeling better, just notes general stress. He describes a numb feelingto right side of head and both knees but has no loss of sensation, both come intermittently, but not necessarily with any specific provoking factors. No vision loss, just some farsightedness and recently had normal ophtho exam. No scalp pain or pain with mastication. Sometimes the numb feeling in the head feels like it goes to his eyes. No dental pain. He denies knee injury, no redness to area. Also c/o intermittent numbness to both hands, ongoing, from his carpal tunnel. 05/10/2016 JESSIE VILLARREAL The patient is seen lying in bed this morning in the presence of his spouse. POC has been discussedwith the bedside RN/Elisabeth Called to bedside urgently by nursing at the request of the pts as she felt the patient was beginning to experience an episode . The patient describes a variety of symptoms. He first notes onset of left occipital numbness which at times radiates superiorly though only rarely extends beyond midline. This numbness then extends to his hands/arms. This is followed by an aching in his knees bilaterally with subsequent mild shortness of breath, myalgias and extreme fatigue with subsequent I feel like i'm going to crawl out of my skin with energy like I have to get up and move . The patient notes improvement in symptoms with mobility. He denies any facial pain. He states he also noted improved symptoms with administration of IVF. 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 This could possibly be a variant of viral presentation in the setting of recent abdominal pain and a negative GI evaluation. EEG result is pending at this time. Will resume IVF and continue to monitor. The patient and his had their questions answered to their stated satisfaction and they are in agreement with the plan as noted above. Physical Exam Last Filed Vital Signs Temp: 97.5 ??F (36.4 ??C) (05/10/16 0745) Temp Min: 97.5 ??F (36.4 ??C) Max: 98.9 ??F (37.2 ??C) Pulse/Heart Rate: 108 (05/10/16 0750) Pulse Min: 81 Max: 108 BP: (!) 127/93 (05/10/16 0750) BP Min: 119/90 Max: 148/86 Resp: 18 (05/09/16 2314) Resp Min: 18 Max: 18 SpO2: 93 % (05/10/16 0750) SpO2 Min: 93 % Max: 97 % ??? General appearance: Pleasant, cooperative, appears anxious ??? HEENT: no acute findings ??? Neck: supple without bruit, no appreciable JVD ??? Lymph nodes: no palpable adenopathy ??? CV: normal S1/S2 without murmur or rub; regular rhythm ??? Respiratory: clear throughout all bilat garcia ??? Abdomen: soft, nontender, nondistended, normoactive BS x4 quads ??? Musculoskeletal: no evident limitations ??? Extremity: no pitting edema ??? Neuro: no new acute focal findings, though motor responses are delayed x4 extrem, strength and sensation 5/5 x4 extrem. ??? Skin: warm and dry Lines/ Drains/ Airway LDA's PIV Line Peripheral IV - Single Lumen 05/08/162135 Left Forearm [id number] catheter system 20 gauge 1 day Nutrition Status Degree of Malnutrition: BMI: 31.03 Usual Body Weight: % Usual Body Weight: % of Weight Change: Intentional Weight Change: Time Period Related to Weight Change: % Usual Intake: Additional Comments: Diagnostic Data Personally reviewed in [employer]. Electronically signed by: PHIL Coffey 05/10/2016 9:39 AM * Namrata Souza CRNP - 05/09/2016 9:38 AM EST IMPRESSION/PLAN: 1. Syncope: likely d/t dehydration, has had poor oral intake recently but even more so while on doxy. EKG/troponin negative x2. Ortho BP's slightly positive by HR; increase IVF. Likely d/c later today if HR improves. 2. Right sided headache/numbness: ?trigeminal neuralgia; no loss of sensation. MRI brain pending. NAL c/s. 3. B/l knee discomfort: likely msk, no signs of deformity/injury. Prn tylenol. F/u with PCP. 4. Hand numbness: chronic intermittent issue d/t carpal tunnel. F/u as outpatient w/ PCP. 5. HTN;BP stable. No meds. 6. Asthma: no wheezes noted. 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 7. Anxiety: contributes to symptoms 8. Hx tubular adenoma of colon: Pt does not take Prilosec or Bentyl. followed by [facility]. F/U scheduledfor 05/2016. 9. Obesity: impacts all aspects of care. Pt does report 25 pound weight loss though in past 3 months due to stressors. 10. VTE Prophylaxis: Observation status. Low risk. Ambulatory. 11. Nutrition: Cardiac Diet. 12. Code Status: Full Code. 13. Disposition: Prior residence at discharge. 14. PCP: Sal Wright DO POC discussed with RN HISTORY OF PRESENT ILLNESS: 05/08 Lurdes uHssein: Carter Gomes Jr. is a 51 y.o. male who presents with 3 syncopal episodes today in which he feels lightheaded and then falls to the ground losing consciousness and then gains consciousness within seconds. Pt not sure if he hit his head. Pt denies any SOB, CP, n/v, diaphoresis with the episode Pt reports also right occipital numbness that started 3 weeks ago and b/l knee numbness that started 1 week ago. Pt had a colonoscopy 3 weeks ago, did not feel well, saw PCP, and then went to Urgent Care 1 week later for complaints of his occipital numbness and fatigue, was started on Doxy for suspected Lyme. Since then, lyme titers have come negative and pt stopped the Doxy yesterday for fear that it may exaggerate his symptoms. Pt was then seen in ER 05/06 for syncopal event and head numbness where his head CT was negative and discharged home with recommendation to see a neurologist outpatient. (He has not seen neurologist yet.) 05/09: patient reports he is feeling better, just notes general stress. He describes a numb feelingto right side of head and both knees but has no loss of sensation, both come intermittently, but not necessarily with any specific provoking factors. No vision loss, just some farsightedness and recently had normal ophtho exam. No scalp pain or pain with mastication. Sometimes the numb feeling in the head feels like it goes to his eyes. No dental pain. He denies knee injury, no redness to area. Also c/o intermittent numbness to both hands, ongoing, from his carpal tunnel. ACTIVE PROBLEMS: Active Hospital Problems Diagnosis ??? Syncope and collapse ??? Tubular adenoma of colon. Repeat colonoscopy in APR 2019 ??? BMI 35-39.9 ??? HTN (hypertension) ??? Asthma Physical Exam: Last Filed Vital Signs Temperature 98.4 ??F (36.9 ??C) (05/09/16 0805) Pulse/Heart Rate 108 (05/09/16 0809) Respiration 18 (05/09/16806) BP 122/86 (05/09/16 08) MAP 98 MM HG (05/09/16808) SpO2 94 % (05/09/16806) O2 Device room air (05/09/16806) O2 Therapy Flow Weight 101 kg (222 lb) (05/08/162234) BMI 31.03 (05/08/162234) General: No acute distress. ENMT: Ororpharynx clear, moist. Airway patent. No scalp tenderness. Eyes: PERRL. Conjunctiva clear. Neck: No JVD. Resp: Full excursion. Lungs CTA b/l. No accessory muscle use. CV: Regular rate and rhythm. +S1/S2. No murmurs, gallops or rubs. +2 radial and DP pulses. No edema. GI: Abdomen soft, non-tender, non-distended. Normoactive bowel sounds. Skin: Skin warm, dry and intact. Msk: Full ROM to all extremities. Strength 5/5 to all extremities. Neuro: Alert, oriented x3. Sensation intact to all extremities. Psych: Anxious DATA: Personally reviewed in [employer]. documented in this encounter H&P Notes * Michelle Hussein CRNP - 05/08/2016 11:11 PM EST IMPRESSION /PLAN: 1. Syncope: unknown etiology. Recent colonoscopy by I. Lyme titers negative. 05/06/2016 CT head Negative. Troponin negative. EKG NSR. WBC 6.4. Hgb 15.6. TELE. Cycle T/E. NAL consult. Neuro checks. Ortho BPs. UAM. Magnesium. Check A1c. MRI brain. OOB with assistance. 2. HTN;BP stable. No meds. 3. Asthma: no wheezes noted. 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 4. Hx tubular adenoma of colon: Pt does not take Prilosec or Bentyl. followed by [facility]. F/U scheduledfor 05/2016. 5. Obesity: impacts all aspects of care. Pt does report 25 pound weight loss though in past 3 months due to stressors. 6. VTE Prophylaxis: Observation status. Low risk. Ambulatory. 7. Nutrition: Cardiac Diet. 8. Code Status: Full Code. 9. Disposition: Prior residence at discharge. 10. PCP: Sal Wright, DO This patient requires hospital observation services and cannot be safely treated outside the hospital setting due to the following reason(s): syncopal events CHIEF COMPLAINT: I past out 3 times today. HISTORY OF PRESENT ILLNESS: Carter Gomes Jr. is a 51 y.o. male who presents with 3 syncopal episodes today in which he feels lightheaded and then falls to the ground losing consciousness and then gains consciousness within seconds. Pt not sure if he hit his head. Pt denies any SOB, CP, n/v, diaphoresis with the episode Pt reports also right occipital numbness that started 3 weeks ago and b/l knee numbness that started 1 week ago. Pt had a colonoscopy 3 weeks ago, did not feel well, saw PCP, and then went to Urgent Care 1 week later for complaints of his occipital numbness and fatigue, was started on Doxy for suspected Lyme. Since then, lyme titers have come negative and pt stopped the Doxy yesterday for fear that it may exaggerate his symptoms. Pt was then seen in ER 05/06 for syncopal event and head numbness where his head CT was negative and discharged home with recommendation to see a neurologist outpatient. (He has not seen neurologist yet.) ACTIVE PROBLEMS: Diagnosis ??? Syncope ??? Tubular adenoma of colon. Repeat colonoscopy in APR 2019 ??? BMI 35-39.9 ??? HTN (hypertension) ??? Asthma PAST MEDICAL/SURGICAL HISTORY: History reviewed. No pertinent past medical history. Past Surgical History Procedure Laterality Date ??? Endoscopy, esophagus ??? Hx colonoscopy ??? Hx cyst removal ALLERGIES: Allergen Reactions ??? Penicillins Rash/Dermatitis PRIOR TO ADMISSION MEDICATIONS: Prescriptions Last Dose Informant Patient Reported? Taking? Diphenhydramine-APAP, sleep, (TYLENOL PM EXTRA STRENGTH) 25-500 MG TABS 05/08/2016 at 110 Spouse/Significant Other Yes Yes Sig: Take 2 capsules by mouth every 6 hours as needed. dicyclomine (BENTYL) 20 MG tablet Not Taking at Unknown time Spouse/Significant Other Yes No Sig: Take 20 mg by mouth 3 times daily as needed . doxycycline (VIBRAMYCIN) 100 MG capsule 05/07/2016 Spouse/Significant Other No No Sig: Take 1 capsule by mouth 2 times daily (with meals) for 21 days. omeprazole (PRILOSEC) 20 MG capsule Not Taking at Unknown time Spouse/Significant Other Yes No Sig: Take 20 mg by mouth every morning. polyethylene glycol (MIRALAX) powder Spouse/Significant Other No No Sig: Miralax prep with Dulcolax tablets. Facility-Administered Medications: None FAMILY HISTORY: His family history is not on file. No family history on file. SOCIAL HISTORY: He reports that he has never smoked. His smokeless tobacco use includes Chew. He reports that he does not drink alcohol or use illicit drugs. REVIEW OF SYSTEMS: Review of Systems Constitutional: Positive for fatigue. HENT: Negative. Eyes: Negative. Respiratory: Negative. Cardiovascular: Negative. Gastrointestinal: Negative. Endocrine: Negative. Genitourinary: Negative. Musculoskeletal: Negative for gait problem. Skin: Negative. Allergic/Immunologic: Negative. Neurological: Positive for numbness (right occipital and b/l knees). Negative for seizures, facial asymmetry, speech difficulty and headaches. Hematological: Negative. Psychiatric/Behavioral: Negative. PHYSICAL EXAM: Last Filed Vital Signs Temperature 97.7 ??F (36.5 ??C) (05/08/16 184) Pulse/Heart Rate 73 (05/08/162099) Respiration 18 (05/08/162099) BP 135/85 (05/08/162099) MAP 101.67 MM HG (05/08/162099) SpO2 96 % (05/08/162099) O2 Device room air (05/08/162099) O2 Therapy Flow Weight 101 kg (222 lb) (05/08/162234) Height 180.3 cm (5' 11 ) (05/08/162234) BMI 31.03 (05/08/162234) Physical Exam Vitals reviewed. HENT: Head: Normocephalic. Eyes: Pupils are equal, round, and reactive to light. Neck: Normal range of motion. Cardiovascular: Normal rate and regular rhythm. Pulses: Radial pulses are 2+ on the right side, and 2+ on the left side. Dorsalis pedis pulses are 2+ on the right side, and 2+ on the left side. Posterior tibial pulses are 2+ on the right side, and 2+ on the left side. Pulmonary/Chest: Effort normal and breath sounds normal. Abdominal: Soft. Normal appearance and bowel sounds are normal. Musculoskeletal: Normal range of motion. Neurologic: He is alert and oriented to person, place, and time. He has normal strength. No cranialnerve deficit and sensory deficit. GCS eye subscore is 4. GCS verbal subscore is 5. GCS motor subscore is 6. Skin: Skin is warm, dry and intact. No rashes noted on head or abdomen. Psychiatric: He has a normal mood and affect. His speech is normal and behavior is normal. Judgmentand thought content normal. Cognition and memory are normal. Constitutional: Vital signs are normal. He appears well-developed and well-nourished. DIAGNOSTIC DATA: Lab Results: Lab Results Component Value Date GLUCOSE 99 05/08/2016 SODIUM 137 05/08/2016 POTASSIUM 4.2 05/08/2016 CHLORIDE 103 05/08/2016 [id number] 28.0 05/08/2016 BUN 9 05/08/2016 CREATININE 0.9 05/08/2016 CALCIUM 9.3 05/08/2016 GFR >60 05/08/2016 Radiology Results: Xr Chest Pa And Lateral Result Date: 05/08/2016 Radiographs chest PA and lateral 2 views History: Chest pain. Discussion: The lungs and pleural spaces are clear. The heart is not enlarged. A scoliosis of the thoracolumbar junction is noted. No acute abnormality. Dictating Workstation: [facility] Results: Results for orders placed or performed during the hospital encounter of 05/08/16 12 Lead EKG Result Value Ref Range Ventricular Rate 86 BPM Atrial Rate 86 BPM P-R Interval 174 ms QRS Duration 82 ms Q-T Interval 362 ms QTC Calculation 433 ms Calculated P [place] 29 degrees Calculated R [place] 34 degrees Calculated T [place] 2 degrees Narrative Normal sinus rhythm Cannot rule out Anterior infarct , age undetermined Abnormal ECG When compared with ECG of 06-MAY-2016 18:21, No significant change was found Cosigned by Nito Van MD at 05/09/2016 3:15 AM EST Associated attestation - Nito Van MD - 05/09/2016 3:15 AM EST Syncope observation protocol patient, not seen/examined by me as per [facility] Hospitalists policy. Case d/w the Observation Unit DOUPER. Agree with assessment and plan as ordered. documented in this encounter Procedure Notes * Kilo Wang MD - 05/10/2016 6:12 PM ESTAssociated Order(s): EEG AWAKE AND ASLEEP [facility] [address] CARTER GOMES JR. : 1965AGE: 51 CSN: [id number] Admission Date: 05/08/2016 Room Number: [id number] 7812-D1 Order #: [id number] Performed: 05/10/2016 10:49:00 Discharge Date: Ordering Physician: Kilo Wang MD EEG AWAKE AND ASLEEP INTERNATIONAL SYSTEM--21 ELECTRODES--MONOPOLAR AND BIPOLAR HISTORY A 51-year-old, right-handed, male with history of syncopal spell and numbness of the right side of the head. This EEG is ordered for evaluation and rule out epileptogenic activity. CURRENT MEDICATIONS None mentioned on the referral. EEG DESCRIPTION This is a routine 21-channel adult digital XL PRAKASH system EEG recording with 1 channel devoted to limited EKG recording. XL PRAKASH spike detection software analyzer and continuous video monitoring were applied during the recording. The patient was in a state of awake and drowsy during this recording. Upon maximal arousal, the posterior dominant waking rhythm has a frequency of 12 Hz and amplitude of 25 microvolts. This activity was symmetrical over the posterior hemispheres and was attenuated by eye opening. Photic stimulation did produce good driving response. There was no clear sleep architecture seen during this recording. There is no focal abnormality, marked asymmetry, or epileptiform discharge noted during this recording. EEG interpretation normal awake and drowsy adult digital EEG. Kilo Wang MD Department of Medicine/Div of Neurology DICTATED: 05/31/2016 15:11:47 TRANSCRIBED: 05/31/2016 15:39:58 modl Job ID #: [id number] CC: documented in this encounter ED Notes * Matthew Avery - 05/08/2016 9:46 PM EST HISTORY: Chief Complaint Patient presents with ??? Syncope HPI Very pleasant 51-year-old gentleman presents the emergency department after having 3 episodes of syncope today the patient states he has not been feeling well over the last couple of weeks but today seemed to get worse patient was in here recently with some head numbness that was worked up and there is no great reason for this found. The patient states is been taking his medications he denies anychest pain he denies nausea vomiting diarrhea he denies any back pain he denies any testicle pain no urinary symptoms he denies any fevers or chills No past medical history on file. Past Surgical History Procedure Laterality Date ??? Endoscopy, esophagus ??? Hx colonoscopy No family history on file. Social History Substance Use Topics ??? Smoking status: Never Smoker ??? Smokeless tobacco: Current User Types: Chew Comment: chew tobacco 1 can a week ??? Alcohol use No Problem List Diagnosis ??? Asthma ??? Tubular adenoma of colon. Repeat colonoscopy in APR 2019 ??? BMI 35-39.9 ??? HTN (hypertension) Review of Systems PHYSICAL EXAM: Vital Signs Temperature 97.7 ??F (36.5 ??C) (05/08/16 1841) Pulse/Heart Rate 73 (05/08/162099) Respiration 18 (05/08/162099) BP 135/85 (05/08/162099) MAP 101.67 MM HG (05/08/162099) SpO2 96 % (05/08/162099) O2 Device room air (05/08/162099) O2 Therapy Flow Physical Exam Social History Lives independently Family History noncontributory Radiology Studies were ordered and read by Radiologist. Studies that were available at time of disposition were reviewed and acted upon accordingly Oxygen Saturation Oxygen saturation was 96%. Laboratory Interpretation Laboratory results available at time of disposition were reviewed and acted upon accordingly. Physical Exam Constitutional Vital signs reviewed Head Atraumatic Eyes Sclera were normal. ENT Mucous membranes were pink, moist, and normal in color Neck No bruit Respiratory / Chest Breath sounds normal. Heart RRR, no murmur. Abdomen Abdomen is nontender, bowel sounds are positive, no mass no guarding Back No CVA discomfort Upper Extremity Normal inspection Lower Extremity No edema. Neurologic Exam GCS is 15, no focal weakness, cranial nerves are grossly intact Psychiatric Awake and alert very pleasant, Oriented x 3 Review of Systems All other systems are negative except as documented in the history of present illness. Hose Tubing Backer Normal sinus rhythm normal rate EKG interpretation Sinus rhythm normal rate normal axis no gross evidence of ischemia ED COURSE: Procedures MDM Patient has remained stable in the emergency department. The patient's lab work is within acceptable limits the patient's radiograph shows no acute process patient's lab work and EKG were within acceptable limits. Given the fact the patient has had 3 episodes of syncope today he will be brought into the hospital for further evaluation and treatment patient is agreeable with this plan and stable at time of care transfer. The patients condition at the time of Disposition is Improved. Mathtew Avery DO 05/08/16 2206 * Ena Tomas RN - 05/08/2016 7:09 PM EST Pt reports intermittent numbness to right side of head since mid March. Numbness more constant today. Pt had syncopal episode 05/06 and was evaluated in ED and dc home. Had 3 syncopal episodes today. Denies injuries. No AC's. Reporting numbness to hands. LUQ abd pain. Treated for lyme dx recently. * Juan Anderson - 05/08/2016 6:39 PM EST Pt states he has been experiencing numbness to his head and arms for the past few weeks. He had a syncopal episode on 05/06 and was seen in the ED. Pt states he had three syncopal episodes today. Pt reports he has lost 25lbs in the past two months. Pt reports mild abdominal pain. documented in this encounter Miscellaneous Notes * Plan of Care - Irene Davis RN - 05/10/2016 4:18 PM EST Reason For Admission: Syncope and collapse [R55] Estimated Date of Discharge: No date filed Readmission Risk: Readmission Risk: High Case Management Assessment: Information obtained from?: Other Living Arrangement: Home (With spouse) Functional Assessment: Patient Independent Transportation Need Assessment: [employer] Control Clerk Authorization required for post discharge services?: Auth Required for post DC services Prescription/Drug Coverage?: Yes PCP Validated?: Correct Admit following syncope. From home with spouse. Is independent and driving. Has has been having various symptoms over the last several weeks with a few pre- syncopal events. Patient reports a lot of stressors in his life currently. EEG pending. Possible discharge. Barriers to Transition: Delay type: Non SNF delay Delay details: Not medically ready Benefit Plan: Payor: Yoono / Plan: [employer] / Product Type: Quip / Patients Preferred Pharmacy: [id number] [place], [place] - [address] Referrals: Support Center Referrals: Not Applicable Post Discharge Referrals: No post transition referrals made. Barriers to Care: Hard to pay for housing: No Hard to pay for utilities: No Hard to pay for medication: No Hard to pay for food: No Hard to pay for medical care: No Hard to get transportation: No Hard to get to a phone to call the doctor's office: No Patient does not have a Living Will. * Consults (Notewriter) - Kilo Wang MD - 05/09/2016 12:14 PM EST IMPRESSION / PLAN: 1- Recurrent syncopal spells with postictal confusion and possible TIA rule out vertebrobasilar insufficiency versus seizure 2- bronchial asthma and tobacco abuse Plan - MRI of the brain - MRA of the brain - EEG - DVT prophylaxis Discussed with the patient and his CONSULT INFORMATION: Reason for Consult: Recurrent syncopal spells with postictal confusion Requested by: Michelle Hussein CRNP HISTORY OF PRESENT ILLNESS: Carter Gomes Jr. is a 51 y.o. male who presents with history of recurrent syncopal spells prior to admission to the hospital started 05/06 with one spell and then yesterday he had 4 spells throughout the day that was witnessed by his who describes feeling significantly dizzy and falling downto the floor and being confused after woke up for few minutes before return to his normal mental status. He has no history of TIA, stroke, or seizure in the past. He had been treated for Lyme diseasewith doxycycline that he developed GI symptoms as a side effect. He declines abuse of alcohol or illicit drugs and he smokes. The patient describes feeling [...] to see a neurologist as an outpatient. ACTIVE PROBLEMS: Diagnosis ??? Nonintractable episodic headache ??? Syncope and collapse ??? Tubular adenoma of colon. Repeat colonoscopy in APR 2019 ??? BMI 35-39.9 ??? HTN (hypertension) ??? Asthma PAST MEDICAL/ SURGICAL HISTORY: History reviewed. No pertinent past medical history. Past Surgical History Procedure Laterality Date ??? Endoscopy, esophagus ??? Hx colonoscopy ??? Hx cyst removal ALLERGIES: Allergen Reactions ??? Penicillins Rash/Dermatitis MEDICATIONS: Prior to Admission Medications Prescriptions Last Dose Informant Patient Reported? Taking? Diphenhydramine-APAP, sleep, (TYLENOL PM EXTRA STRENGTH) 25-500 MG TABS 05/08/2016 at 110 Spouse/Significant Other Yes Yes Sig: Take 2 capsules by mouth every 6 hours as needed. dicyclomine (BENTYL) 20 MG tablet Not Taking at Unknown time Spouse/Significant Other Yes No Sig: Take 20 mg by mouth 3 times daily as needed . doxycycline (VIBRAMYCIN) 100 MG capsule 05/07/2016 Spouse/Significant Other No No Sig: Take 1 capsule by mouth 2 times daily (with meals) for 21 days. omeprazole (PRILOSEC) 20 MG capsule Not Taking at Unknown time Spouse/Significant Other Yes No Sig: Take 20 mg by mouth every morning. polyethylene glycol (MIRALAX) powder Spouse/Significant Other No No Sig: Miralax prep with Dulcolax tablets. Facility-Administered Medications: None Current Facility-Administered Medications Medication Dose Route Frequency Current Facility-Administered Medications Medication Dose Route Frequency ??? NaCl Intravenous Continuous ??? NaCl 0.9% 10 mL/hr Intravenous PRN Current Facility-Administered Medications Medication Dose Route Frequency Last Dose ??? acetaminophen 650 mg Oral Q6H PRN ??? influenza vaccine orderable 0.5 mL Intramuscular When Medically Stable ??? NaCl 0.9 % 3-10 mL Intravenous PRN ??? NaCl 0.9% 10 mL/hr Intravenous PRN FAMILY HISTORY: His family history is not on file. noncontributory for TIA stroke or seizure SOCIAL HISTORY: He reports that he has never smoked. His smokeless tobacco use includes Chew. He reports that he does not drink alcohol or use illicit drugs. REVIEW OF SYSTEMS: Review of Systems Constitutional: Negative. HENT: Negative. Eyes: Negative. Respiratory: [...] patientis nervous/anxious. The patient is not hyperactive. PHYSICAL EXAM: Last Filed Vital Signs Temperature 97.8 ??F (36.6 ??C) (05/09/16 1045) Pulse/Heart Rate 98 (05/09/16 1045) Respiration 18 (05/09/16 1045) BP 137/82 (05/09/16 1045) MAP 100 MM HG (05/09/16 1045) SpO2 94 % (05/09/16 1045) O2 Device room air (05/09/16 104) O2 Therapy Flow Weight 101 kg (222 lb) (05/08/162234) BMI 31.03 (05/08/162234) Physical Exam HENT: Head: Normocephalic and atraumatic. Mouth/Throat: No [...] deformity. Lymphadenopathy: He has no cervical adenopathy. Neurologic: Mental status: Alert, awake and oriented to [...] He appears well-developed and well-nourished. No distress. DIAGNOSTIC DATA: Lab Results: Lab Results Component Value Date GLYCOHGB 5.1 05/09/2016 Lab Results Component Value Date GLUCOSE 99 05/08/2016 SODIUM 137 05/08/2016 POTASSIUM 4.2 05/08/2016 CHLORIDE 103 05/08/2016 [id number] 28.0 05/08/2016 BUN 9 05/08/2016 CREATININE 0.9 05/08/2016 CALCIUM 9.3 05/08/2016 GFR >60 05/08/2016 No results found for: BTYPENTPPT Lab Results Component Value Date TROPONINI <0.01 05/09/2016 Lab Results Component Value Date WBC 6.5 05/09/2016 HGB 14.5 05/09/2016 HCT 41.8 (L) 05/09/2016 PLATELETCT 218 05/09/2016 Lab Results Component Value Date GLUCOSE 99 05/08/2016 SODIUM 137 05/08/2016 POTASSIUM 4.2 05/08/2016 CHLORIDE 103 05/08/2016 [id number] 28.0 05/08/2016 BUN 9 05/08/2016 CREATININE 0.9 05/08/2016 CALCIUM 9.3 05/08/2016 GFR >60 05/08/2016 ALBUMIN 4.0 05/08/2016 BILITOTAL 0.8 05/08/2016 AP 57 05/08/2016 ASTSGOT 18 05/08/2016 ALTSGPT 29 05/08/2016 Radiology Results: Xr Chest Pa And Lateral Result Date: 05/08/2016 No acute abnormality. Dictating Workstation: [facility] Results: Results for orders placed or performed during the hospital encounter of 05/08/16 EKG 12-Lead Result Value Ref Range Ventricular Rate 76 BPM Atrial Rate 76 BPM P-R Interval 164 ms QRS Duration 84 ms Q-T Interval 376 ms QTC Calculation 423 ms Calculated P [place] 27 degrees Calculated R [place] 19 degrees Calculated T [place] 50 degrees Narrative Normal sinus rhythm Normal ECG When compared with ECG of 08-MAY-2016 19:59, (Unconfirmed) T wave inversion no longer evident in Inferior leads documented in this encounter Plan of Treatment Not on file documented as of this encounter Procedures Procedure Name Priority Date/Time Associated Diagnosis Comments EEG AWAKE AND ASLEEP Routine 05/31/2016 6:17 PM EST MR BRAIN WO CONTRAST Routine 05/10/2016 4:22 AM EST MR ANGIOGRAM HEAD WO CONTRAST Routine 05/10/2016 3:46 AM EST MAGNESIUM, SERUM Timed 05/09/2016 12:3 8 PM EST COMPREHENSIVE METABOLIC PANEL Routine 05/09/2016 12:38 PM EST ECHOCARDIOGRAM Routine 05/09/2016 10:40 AM EST GLYCOHEMOGLOBIN (HGB A1C) Routine 05/09/2016 5:20 AM EST CBC Routine 05/09/2016 5:20 AM EST CARDIAC PROFILE-TROPONIN ONLY Routine 05/09/2016 2:05 AM EST EKG 12-LEAD Routine 05/09/2016 2:02 AM EST UA MICROSCOPIC W CULTURE IF INDICATED Routine 05/09/2016 12:23 AM EST XR CHEST PA AND LATERAL STAT 05/08/20 16 8:11 PM EST EKG 12-LEAD STAT 05/08/2016 7:59 PM EST PROTIME (WITH INR) AND PTT STAT 05/08/2016 7:49 PM EST CBC WITH DIFFERENTIAL - LAB STAT 05/08/2016 7:49 PM EST CARDIAC PROFILE-TROPONIN ONLY STAT 05/08/2016 7:49 PM EST COMPREHENSIVE METABOLIC PANEL STAT 05/08/2016 7:49 PM EST documented in this encounter Results * EEG Awake And Asleep (05/31/2016 6:17 PM EST) Narrative Procedure Note Kilo Wang MD - 05/10/2016 6:12 PM EST [facility] [address] MIREYA THOMAS CARTER L : 1965AGE: 51 CSN: [id number] Admission Date: 05/08/2016 Room Number: [id number] 7812-D1 Order #: [id number] Performed: 05/10/2016 10:49:00 Discharge Date: Ordering Physician: Kilo Wang MD EEG AWAKE AND ASLEEP INTERNATIONAL SYSTEM--21 ELECTRODES--MONOPOLAR AND BIPOLAR HISTORY A 51-year-old, right-handed, male with history of syncopal spelland numbness of the right side of the head. This EEG is ordered forevaluation and rule out epileptogenic activity. CURRENT MEDICATIONS None mentioned on the referral. EEG DESCRIPTION This is a routine 21-channel adult digital XL PRAKASH system EEG recordingwith 1 channel devoted to limited EKG recording. XL PRAKASH spike detectionsoftware analyzer and continuous video monitoring were applied during therecording. The patient was in a state of awake and drowsy during thisrecording. Upon maximal arousal, the posterior dominant waking rhythm has a frequencyof 12 Hz and amplitude of 25 microvolts. This activity was symmetricalover the posterior hemispheres and was attenuated by eye opening. Photicstimulation did produce good driving response. There was no clear sleeparchitecture seen during this recording. There is no focal abnormality, marked asymmetry, or epileptiform dischargenoted during this recording. EEG interpretation normal awake and drowsy adult digital EEG. Kilo Wang MD Department of Medicine/Div of Neurology DICTATED: 05/31/2016 15:11:47 TRANSCRIBED: 05/31/2016 15:39:58 modl Job ID #: [id number] CC: us Kilo Wang MD NEUROLOGY ORDERABLES Final Resu [facility] EEG/LAB DICTAPHONE * MR BRAIN WO CONTRAST (05/10/2016 4:22 AM EST) Anatomical Region Laterality Modality Head Magnetic Resonan ce 05/10/2016 3:29 AM EST Impressions 05/10/2016 4:59 AM EST ??Negative MRI of the brain. Dictating Narrative 05/10/2016 4:59 AM EST MRI of the brain without contrast 05/10/2016 History: 3 syncopal episodes with lightheadedness. Technique: Axial FLAIR, T2, T1, SWI, DWI, ADC and sagittal T1 and coronal T2 sequences were performed. Comparison: None Findings: The cerebral ventricles and cortical sulci are within normal limits. There is no restricted diffusion in the brain to suggest infarct. There is no evidence of intracranial hemorrhage. There is no mass effect or midline shift. Vascular flow voids appear normal. Orbits and paranasal sinuses are unremarkable. No abnormalities are seen in the calvarium. Procedure Note Dariel Ocasio MD - 05/10/2016 MRI of the brain without contrast 05/10/2016 History: 3 syncopal episodes with lightheadedness. Technique: Axial FLAIR, T2, T1, SWI, DWI, ADC and sagittal T1 and coronalT2 sequences were performed. Comparison: None Findings: The cerebral ventricles and cortical sulci are within normallimits. There is no restricted diffusion in the brain to suggest infarct.There is no evidence of intracranial hemorrhage. There is no mass effector midline shift. Vascular flow voids appear normal. Orbits and paranasal sinuses areunremarkable. No abnormalities are seen in the calvarium. IMPRESSION: Negative MRI of the brain. Dictating us Kilo Wang MD RIS MR ORDERABLES Final Resu lt * MR ANGIOGRAM HEAD WO CONTRAST (05/10/2016 3:46 AM EST) Anatomical Region Laterality Modality Head Magnetic Resonan ce 05/10/2016 3:20 AM EST Impressions 05/10/2016 3:57 AM EST ??Unremarkable MRA of the brain. Dictating Narrative 05/10/2016 3:57 AM EST MRA 05/10/2016 HISTORY: Multiple syncopal episodes. TECHNIQUE: [id number] axial images were acquired through the intracranial vasculature with MIP reconstruction. FINDINGS: Vertebrobasilar: The LEFT vertebral artery is dominant. There is no definite vertebral stenosis. Cerebellar arteries appear normal. Basilar artery is widely patent. Internal carotids: No hemodynamically significant stenosis in intracranial segments. Cerebral arteries: The LEFT posterior cerebral artery is tortuous arising from the anterior aspect of the basilar. Posterior cerebral arteries are patent. Left- sided posterior communicating artery is noted. There is no P-comm artery seen on the RIGHT. Middle cerebral arteries appear widely patent. Anterior cerebral arteries are normal. Anterior communicating artery is normal. There is no evidence of an aneurysm. Procedure Note Dariel Ocasio MD - 05/10/2016 MRA 05/10/2016 HISTORY: Multiple syncopal episodes. TECHNIQUE: Fxri-[id number] axial images were acquired through theintracranial vasculature with MIP reconstruction. FINDINGS: Vertebrobasilar: The LEFT vertebral artery is dominant. There isno definite vertebral stenosis. Cerebellar arteries appear normal. Basilarartery is widely patent. Internal carotids: No hemodynamically significant stenosis in intracranialsegments. Cerebral arteries: The LEFT posterior cerebral artery is tortuous arisingfrom the anterior aspect of the basilar. Posterior cerebral arteries arepatent. Left- sided posterior communicating artery is noted. There is noP-comm artery seen on the RIGHT. Middle cerebral arteries appear widelypatent. Anterior cerebral arteries are normal. Anterior communicatingartery is normal. There is no evidence of an aneurysm. IMPRESSION: Unremarkable MRA of the brain. Dictating Workstation: [employer] Kilo Wang MD RIS MR ORDERABLES Final Resu lt * Magnesium, Serum (05/09/2016 12:38 PM EST) Magnesium 1.8 1.8 - 2.7 mg/dL 05/09/2016 1:[address] [facility] 05/09/2016 12:3 8 PM EST 05/09/2016 12:45 PM EST Namrata LOPEZNP CHEMISTRY ORDERABLES F inal Result [facility] [address] [place] [address] * (ABNORMAL) Comprehensive Metabolic Panel (CMP) (05/09/2016 12:38 PM EST) Glucose (serum) 110(H) 65 - 100 mg/dL 05/09/2016 1:[address] [facility] Blood Urea Nitrogen 9 8 - 22 mg/dL 05/09/2016 1:12 PM EST [facility] Sodium 140 135 - 145 mmol/L 05/09/2016 1:[address] [facility] Potassium 4.2 3.4 - 5.3 mmol/L 05/09/2016 1:12 PM [facility] Chloride 104 98 - 107 mmol/L 05/09/2016 1:12 PM [facility] CO2 Venous 29.0 21.0 - 31.0 mmol/L 05/09/2016 1:12 PM [facility] Anion Gap 7 5 - 15 mmol/L 05/09/2016 1:12 PM [facility] Creatinine 1.1 0.7 - 1.2 mg/dL 05/09/2016 1:12 PM [facility] BUN/Creatinine Ratio 8(L) 10 - 20 Ratio 05/09/2016 1:12 PM [facility] Osmolality Calculation (serum) 279 275 - 300 mosm/kg H2O 05/09/2016 1:12 PM [facility] Calcium 9.1 8.6 - 10.3 mg/dL 05/09/2016 1:12 PM [facility] Protein Total Serum 6.4 5.6 - 7.9 g/dL 05/09/2016 1:12 PM [facility] Albumin 3.9 3.5 - 4.9 g/dL 05/09/2016 1:12 PM [facility] Comment:Result reflects use of Bromocresol Green Methodology. Bilirubin Total 0.7 0.2 - 1.2 mg/dL 05/09/2016 1:12 PM [facility] Alkaline Phosphatase 58 34 - 104 U/L 05/09/2016 1:12 PM [facility] AST (SGOT) 17 13 - 40 U/L 05/09/2016 1:12 PM [facility] ALT (SGPT) 27 7 - 52 U/L 05/09/2016 1:12 PM [facility] A/G Ratio 1.6 1.0 - 2.0 Ratio 05/09/2016 1:12 PM [facility] Globulin 2.5 gm/dL 05/09/2016 1:12 PM [facility] GFR >60 mL/min/1.7 3 sqm 05/09/2016 1:12 PM [facility] Comment: Notes for GFR: 1. ??Multiply result by 1.21 if patient is black/ ?[place]. 2. ??Chronic kidney disease: <60 mL/min/1.73 sq.m. ?Renal Failure: <15 mL/min/1.73 sq.m. Calcium, Corrected(Adj/Ca lc)Total 9.2 mg/dL 05/09/2016 1:12 PM EST [facility] 05/09/2016 12:3 8 PM EST 05/09/2016 12:45 PM EST Namrata VILLARREAL CHEMISTRY ORDERABLES F inal Result [facility] [address] [place] [address] * ECHOCARDIOGRAM (05/09/2016 10:40 AM EST) EJECTION FRACTION (%) 70 % [facility] Anatomical Region Laterality Modality Chest ECHO 05/09/2016 9:04 AM EST Narrative 05/09/2016 1:26 PM EST ?Non-invasive Cardiology [address] [place] [id number] ?Echocardiography Services ? Adult Echo Report Name: CARTER GOMES JR. ?Study Date: 05/09/2016 09:04 AM ?BP: 129/89 mmHg ?Patient Location: 12 ? HR: 110 : 1965 ? Gender: Male ? Height: 71 in Age: 51 yrs ?Weight: 222 lb ?Ordering Physician: NAMRATA SOUZA ?Cane Flume Watchman: Davy Bear RDCS Reason For Study: SYNCOPE X3 ? BSA: 2.2 m2 History: HTN, ASTHMA A CHILD INTERPRETATION SUMMARY The estimated Ejection Fraction is 70-75%. Findings indicate normal LV diastolic function Left atrial size is normal. There is no evidence for aortic stenosis. There is no evidence of aortic insufficiency There is no evidence for pericardial effusion. STUDY DETAILS: ?? Study components: Complete Echocardiogram ([id number]). FINDINGS: LEFT VENTRICLE: ?? Left ventricular dimension is normal. There is mild concentric left ventricular hypertrophy (LVH). Global LV systolic function is hyperdynamic. The estimated Ejection Fraction is 70-75%. [LV Ejection Fraction (MODbp) = 73.1 %]. There is no obvious regional wall motion abnormality. There is no obvious thrombus seen in the left ventricle. Findings indicate normal LV diastolic function. LEFT ATRIUM: ?? Left atrial size is normal. LA Volume Index measures 31.9 ml/m^2 (Normal 16 - 34). The atrial septum appears intact. MITRAL VALVE: ?? There is mild thickening of the mitral valve leaflets. There is no evidence for mitral stenosis. There is trace mitral regurgitation. AORTIC VALVE: ?? The aortic valve appears structurally normal. The aortic valve appears tricuspid. There is no evidence for aortic stenosis. There is no evidence of aortic insufficiency. RIGHT VENTRICLE: ?? Right ventricular size is within normal limits. RV Dimension measures 2.6 cm (Normal 2.5 - 4.1). Right ventricular function is within normal limits. TAPSE (tricuspid annular plane systolic excursion) is 3.1 cm (Normal Range 1.7-3.1). RIGHT ATRIUM: ?? Right atrial size is within normal limits. RA Volume Index measures 10.9 ml/m^2 (Normal 18-32). The estimated right atrial pressure (RAP) is 3 mmHg. TRICUSPID VALVE: ?? The tricuspid valve is not well visualized. There is no evidence for tricuspid valve stenosis. There is trace tricuspid valve regurgitation. The estimated RVSP is 8.4 mmHg. PULMONIC VALVE: ?? The pulmonic valve appears to be structurally normal. There is no evidence for pulmonic stenosis. There is trace pulmonic valve regurgitation. GREAT VESSELS: ?? Aortic root dimension is normal. [Aortic Root Dimension = 3.4 cm]. Ascending aorta dimension is normal. [Ascending Aorta Dimension = 3.5 cm]. The inferior vena cava dimension is within normal limits. [IVC = 1.3 cm]. IVC collapsibility is > 50%. The pulmonary artery is not well visualized. Pulmonary veins are not well seen individually. Appear to have normal connection to the LA. PERICARDIUM: ?? There is no evidence for pericardial effusion. MMode/2D Measurements & Calculations IVSd: 1.0 cm ?LVIDd: 4.8 cm ? Ao Root: 3.4 cm ? Asc Ao: 3.5 cm ?LVIDs: 3.1 cm ? LA dimen: 3.8 cm ?LVPWd: 1.2 cm ?Ao Root Index: 1.5 ?Asc Ao Index: 1.6 ? IVC: 1.3 cm LV EF (MOD-bp): 73.1 % ?LVIDd Index.: 2.2 LA Vol Index: 31.9 ml/m2 ?LVEDV Index: 43.3 ml/m2 ? RA Vol. Index: 10.9 ml/m2 ? RAP syst: 3.0 mmHg ?RVDd (base): 2.6 cm ? TAPSE: 3.1 cm Doppler Measurements & Calculations MV A: 107.8 cm/sec ?TR peak zulay: 116.3 cm/sec ?MV E': 7.0 cm/sec ?RVSP: 8.4 mmHg Procedure Note Daria Waite MD - 05/09/2016 Non-invasiveCardiology [address] [place] [address], [place] [address] EchocardiographyServices Adult Echo Report Name: CARTER GOMES JR. Study Date: 05/09/2016 09:04 AMBP: 129/89 mmHg Patient Location: 7812HR: 110 : 1965 Gender: MaleHeight: 71 in Age: 51 yrsWeight: 222 lb Ordering Physician: NAMRATA SOUZA Cane Flume Watchman: Davy Bear RDCS Reason For Study: SYNCOPE X3 BSA: 2.2 m2 History: HTN, ASTHMA A CHILD INTERPRETATION SUMMARY The estimated Ejection Fraction is 70-75%. Findings indicate normal LV diastolic function Left atrial size is normal. There is no evidence for aortic stenosis. There is no evidence of aortic insufficiency There is no evidence for pericardial effusion. STUDY DETAILS: Study components: Complete Echocardiogram ([id number]). FINDINGS: LEFT VENTRICLE: Left ventricular dimension is normal. There is mildconcentric left ventricular hypertrophy (LVH). Global LV systolic function is hyperdynamic. The estimated EjectionFraction is 70-75%. [LV Ejection Fraction (MODbp) = 73.1 %]. There is no obvious regional wall motion abnormality. There is noobvious thrombus seen in the left ventricle. Findings indicate normal LV diastolic function. LEFT ATRIUM: Left atrial size is normal. LA Volume Index measures 31.9ml/m^2 (Normal 16 - 34). The atrial septum appears intact. MITRAL VALVE: There is mild thickening of the mitral valve leaflets.There is no evidence for mitral stenosis. There is trace mitral regurgitation. AORTIC VALVE: The aortic valve appears structurally normal. The aorticvalve appears tricuspid. There is no evidence for aortic stenosis. There is no evidence of aortic insufficiency. RIGHT VENTRICLE: Right ventricular size is within normal limits. RVDimension measures 2.6 cm (Normal 2.5 - 4.1). Right ventricular function is within normal limits. TAPSE (tricuspidannular plane systolic excursion) is 3.1 cm (Normal Range 1.7-3.1). RIGHT ATRIUM: Right atrial size is within normal limits. RA Volume Indexmeasures 10.9 ml/m^2 (Normal 18-32). The estimated right atrial pressure (RAP) is 3 mmHg. TRICUSPID VALVE: The tricuspid valve is not well visualized. There is noevidence for tricuspid valve stenosis. There is trace tricuspid valve regurgitation. The estimated RVSP is 8.4 mmHg. PULMONIC VALVE: The pulmonic valve appears to be structurally normal.There is no evidence for pulmonic stenosis. There is trace pulmonic valve regurgitation. GREAT VESSELS: Aortic root dimension is normal. [Aortic Root Dimension =3.4 cm]. Ascending aorta dimension is normal. [Ascending Aorta Dimension = 3.5 cm]. The inferior vena cavadimension is within normal limits. [IVC = 1.3 cm]. IVC collapsibility is > 50%. The pulmonary artery is not well visualized.Pulmonary veins are not well seen individually. Appear to have normal connection to the LA. PERICARDIUM: There is no evidence for pericardial effusion. MMode/2D Measurements & Calculations IVSd: 1.0 cm LVIDd: 4.8 cm Ao Root: 3.4cm Asc Ao: 3.5 cm LVIDs: 3.1 cm LA dimen:3.8 cm LVPWd: 1.2 cm Ao Root Index: 1.5 Asc AoIndex: 1.6 IVC: 1.3 cm LV EF (MOD-bp): 73.1 % LVIDdIndex.: 2.2 LA Vol Index: 31.9 ml/m2 LVEDV Index: 43.3 ml/m2RA Vol. Index: 10.9 ml/m2 RAP syst: 3.0 mmHg RVDd (base): 2.6 cm TAPSE: 3.1cm Doppler Measurements & Calculations MV A: 107.8 cm/sec TR peak zulay: 116.3 cm/secMV E': 7.0 cm/sec RVSP: 8.4 mmHg us Namrata VILLARREAL [facility] ECHO ORDERABLES Final Result * HGB A1C (Glycohemoglobin) (05/09/2016 5:20 AM EST) Glycohemoglobin (Hgb A1C) 5.1 4.1 - 5.6 % 05/09/2016 7:13 AM EST [facility] Estimated Average Glucose 100 mg/dL 05/09/2016 7:13 AM EST [facility] Comment: HbA1c >= 6.5% is diagnostic of diabetes. ??In the absence of unequivocal hyperglycemia, confirm by repeat testing. HbA1c of 5.7-6.4% indicates pre-diabetes. Calculated eAG values < 97 mg/dL may be unreliable and should be used with caution. ??HbA1c and eAG values should be interpreted in context of entire clinical setting and may be invalid in anemia, transfusion, hemoglobinopathy, or chronic renal or liver disease. 05/09/2016 5:20 AM EST 05/09/2016 6:52 AM EST us Michelle VILLARREAL CHEMISTRY ORDERABLES Final Resu lt [facility] [address] [place] [phone] * (ABNORMAL) CBC (05/09/2016 5:20 AM EST) WBC Count 6.5 4.8 - 10.8 10*3/uL 05/09/2016 6:[address] [facility] RBC Count 4.88 4.60 - 6.20 10*6/uL 05/09/2016 6:[address] [facility] Hgb 14.5 14.0 - 18.0 g/dL 05/09/2016 6:[address] [facility] Hct 41.8(L) 42.0 - 52.0 % 05/09/2016 6:[address] [facility] MCV 85.7 80.0 - 100.0 fL 05/09/2016 6:[address] [facility] MCH 29.7 27.0 - 33.0 pg 05/09/2016 6:[address] [facility] MCHC 34.7 32.0 - 36.0 g/dL 05/09/2016 6:[address] [facility] Platelet Count 218 150 - 450 10*3/uL 05/09/2016 6:[address] [facility] RDW 13.6 12.2 - 14.6 % 05/09/2016 6:[address] [facility] 05/09/2016 5:20 AM EST 05/09/2016 6:52 AM EST us Michelle VILLARREAL HEMATOLOGY ORDERABLES Final Res ult [facility] [address] [place] [phone] * Cardiac Profile - Troponin only (05/09/2016 2:05 AM EST) Troponin I <0.01 0.00 - 0.04 ng/mL 05/09/2016 2:58 AM EST [facility] 05/09/2016 2:05 AM EST 05/09/2016 2:30 AM EST Michelle VILLARREAL CHEMISTRY ORDERABLES Final Resu lt Performing Organization Address [facility] Co de Phone Number [facility] [address] [place] [address] * EKG 12-Lead (05/09/2016 2:02 AM EST) Ventricular Rate 76 BPM [facility] Atrial Rate 76 BPM [facility] P-R Interval 164 ms [facility] QRS Duration 84 ms [facility] Q-T Interval 376 ms [facility] QTC Calculation 423 ms [facility]-EKG Calculated P [place] 27 degrees [facility] Calculated R [place] 19 degrees [facility] Calculated T [place] [address] [facility] 05/09/2016 2:02 AM EST 05/09/2016 1:[address] [facility] - 05/09/2016 1:00 PM EST Normal sinus rhythm Normal ECG When compared with ECG of 08-MAY-2016 19:59, (Unconfirmed) T wave inversion no longer evident in Inferior leads Confirmed by Juanito Danielson MD ([id number]) on 05/09/2016 1:00:32 PM us Michelle VILLARREAL ECG ORDERABLES Final Result Performing Organization Address [facility] Co de Phone Number [facility] [address] [place] [address] * (ABNORMAL) Urinalysis with micro, culture and sensitivity if indicated (05/09/2016 12:23 AM EST) Urine Source MIDSTREAM 05/09/2016 12:[address] [facility] Urine Color YELLOW Yellow 05/09/2016 12:59 AM EST [facility] Urine Appearance CLEAR Clear 05/09/2016 12:59 AM [facility] Urine Specific [place] 1.010 1.005 - 1.030 05/09/2016 12:59 AM [facility] Urine Glucose Qual NEGATIVE Negative mg/dL 05/09/2016 12:59 AM [facility] Urine Bilirubin NEGATIVE Negative 6 12:59 AM [facility] Urine Ketone NEGATIVE Negative mg/dL 05/09/2016 12:59 AM [facility] Urine Blood NEGATIVE Negative 05/09/2016 12:59 AM [facility] Urine pH 6.0 5.0 - 8.0 [pH] 05/09/2016 12:59 AM [facility] Urine Protein -Dipstick NEGATIVE Negative mg/dL 05/09/2016 12:59 AM [facility] Comment: Starting 11/25/2015, SSA (Sulfosalicylic Acid) testing is no longer performed. Urine Urobilinogen 1.0(A) 0.2 mg/dL 05/09/2016 12:59 AM [facility] Urine Nitrite NEGATIVE Negative 05/09/2016 12:59 AM [facility] Urine Leukocyte Esterase NEGATIVE Negative 05/09/2016 12:59 AM [facility] Urine Microscopic Performed 05/09/2016 12:59 AM [facility] UrineCulture if Indicated Not Indicated 05/09/2016 12:59 AM [facility] Urine RBC 0-2 0 - 2 [HPF] 05/09/2016 1:06 AM EST [facility] URINARY SYSTEM STRUCTURE / Unknown 05/09/2016 12:23 AM EST 05/09/2016 12:34 AM EST us Michelle VILLARREAL URINALYSIS ORDERABLES Final Res ult [facility] [address] [place] [facility] [place] [phone] * XR CHEST PA AND LATERAL (05/08/2016 8:11 PM EST) Anatomical Region Laterality Modality Chest Computed Radiogr aphy 05/08/2016 8:07 PM EST Impressions 05/08/2016 8:15 PM EST ??No acute abnormality. Dictating Narrative 05/08/2016 8:15 PM EST Radiographs chest PA and lateral 2 views History: Chest pain. Discussion: The lungs and pleural spaces are clear. The heart is not enlarged. A scoliosis of the thoracolumbar junction is noted. Procedure Note Jensen Costello MD - 05/08/2016 Radiographs chest PA and lateral 2 views History: Chest pain. Discussion: The lungs and pleural spaces are clear. The heart is notenlarged. A scoliosis of the thoracolumbar junction is noted. IMPRESSION: No acute abnormality. Dictating Matthew Avery DO [facility] ORDERABLES F inal Result * 12 Lead EKG (05/08/2016 7:59 PM EST) Ventricular Rate 86 BPM [facility] Atrial Rate 86 BPM [facility] P-R Interval 174 ms [facility]-EKG QRS Duration 82 ms [facility] Q-T Interval 362 ms [facility] GENERAL [facility]-EKG QTC Calculation 433 ms [facility]EKG Calculated P [place] 29 degrees [facility] Calculated R [place] 34 degrees [facility]-E[facility] Calculated T [place] 2 degrees [facility] 05/08/2016 7:59 PM EST 05/09/2016 12:53 PM EST Narrative [facility] - 05/09/2016 12:53 PM EST Normal sinus rhythm Cannot rule out Anterior infarct , age undetermined Abnormal ECG When compared with ECG of 06-MAY-2016 18:21, No significant change was found Confirmed by Erum RICHARDS, Juanito ([id number]) on 05/09/2016 12:53:15 PM Matthew Avery DO ECG ORDERABLES Final Result [facility] [address] [facility] [place] [address] * Protime w/INR and PTT (05/08/2016 7:49 PM EST) INR (PT) 1.0 0.9 - 1.2 05/08/2016 8:10 PM EST [facility] PTT 23.5 22.0 - 29.0 s 05/08/2016 8:[address] [facility] 05/08/2016 7:49 PM EST 05/08/2016 7:51 PM EST Matthew Avery DO ANTI-COAG ORDERABLES Final Resul t [facility] [address] [place] [facility] [place] [phone] * CBC with Differential (05/08/2016 7:49 PM EST) WBC Count 6.4 4.8 - 10.8 10*3/uL 05/08/2016 8:00 PM [facility] RBC Count 5.20 4.60 - 6.20 10*6/uL 05/08/2016 8:00 PM [facility] Hgb 15.6 14.0 - 18.0 g/dL 05/08/2016 8:00 PM [facility] Hct 44.3 42.0 - 52.0 % 05/08/2016 8:00 PM [facility] MCV 85.2 80.0 - 100.0 fL 05/08/2016 8:00 PM [facility] MCH 30.0 27.0 - 33.0 pg 05/08/2016 8:00 PM [facility] MCHC 35.2 32.0 - 36.0 g/dL 05/08/2016 8:00 PM [facility] Platelet Count 206 150 - 450 10*3/uL 05/08/2016 8:00 PM [facility] RDW 13.3 12.2 - 14.6 % 05/08/2016 8:00 PM [facility] Neutrophils 54.4 45.0 - 75.0 % 05/08/2016 8:00 PM [facility] Lymphocytes 35.2 19.0 - 46.0 % 05/08/2016 8:00 PM [facility] Monocytes 8.5 2.0 - 12.0 % 05/08/2016 8:[address] [facility] Eosinophils 1.7 0.0 - 4.0 % 05/08/2016 8:[address] [facility] Basophils 0.2 0.0 - 1.5 % 05/08/2016 8:00 PM EST [facility] Immature Granulocytes 0.2 0 - 2 % 05/08/2016 8:00 PM EST [facility] Comment: The IG% includes immature cells indicative [...] cells will be separately enumerated. Neutrophils Absolute 3.48 2.20 - 8.00 10*3/uL 05/08/2016 8:00 PM EST [facility] Lymphocytes Absolute 2.25 0.90 - 5.00 10*3/uL 05/08/2016 8:[address] [facility] Monocytes Absolute 0.54 0.20 - 0.80 10*3/uL 05/08/2016 8:[address] [facility] Eosinophils Absolute 0.11 0.00 - 0.40 10*3/uL 05/08/2016 8:00 PM EST [facility] Basophils Absolute 0.01 0.00 - 0.40 10*3/uL 05/08/2016 8:00 PM EST [facility] Immature Granulocyte Absolute 0.01 10*3/uL 05/08/2016 8:00 PM [facility] 05/08/2016 7:49 PM EST 05/08/2016 7:52 PM EST us Matthew Avery DO HEMATOLOGY ORDERABLES Final Resu lt [facility] [address] [place] [address] * (ABNORMAL) Comprehensive Metabolic Panel (CMP) (05/08/2016 7:49 PM EST) Glucose (serum) 99 65 - 100 mg/dL 05/08/2016 8:18 PM [facility] Blood Urea Nitrogen 9 8 - 22 mg/dL 05/08/2016 8:18 PM [facility] Sodium 137 135 - 145 mmol/L 05/08/2016 8:18 PM [facility] Potassium 4.2 3.4 - 5.3 mmol/L 05/08/2016 8:18 PM [facility] Chloride 103 98 - 107 mmol/L 05/08/2016 8:18 PM [facility] CO2 Venous 28.0 21.0 - 31.0 mmol/L 05/08/2016 8:18 PM [facility] Anion Gap 6 5 - 15 mmol/L 05/08/2016 8:18 PM [facility] Creatinine 0.9 0.7 - 1.2 mg/dL 05/08/2016 8:18 PM [facility] BUN/Creatinine Ratio 10 10 - 20 Ratio 05/08/2016 8:18 PM [facility] Osmolality Calculation (serum) 273(L) 275 - 300 mosm/kg H2O 05/08/2016 8:18 PM [facility] Calcium 9.3 8.6 - 10.3 mg/dL 05/08/2016 8:18 PM [facility] Protein Total Serum 6.4 5.6 - 7.9 g/dL 05/08/2016 8:18 PM [facility] Albumin 4.0 3.5 - 4.9 g/dL 05/08/2016 8:18 PM [facility] Comment:Result reflects use of Bromocresol Green Methodology. Bilirubin Total 0.8 0.2 - 1.2 mg/dL 05/08/2016 8:18 PM [facility] Alkaline Phosphatase 57 34 - 104 U/L 05/08/2016 8:18 PM [facility] AST (SGOT) 18 13 - 40 U/L 05/08/2016 8:18 PM [facility] ALT (SGPT) 29 7 - 52 U/L 05/08/2016 8:18 PM [facility] A/G Ratio 1.7 1.0 - 2.0 Ratio 05/08/2016 8:18 PM [facility] Globulin 2.4 gm/dL 05/08/2016 8:18 PM [facility] GFR >60 mL/min/1.7 3 sqm 05/08/2016 8:18 PM EST [facility] Comment: Notes for GFR: 1. ??Multiply result by 1.21 if patient is black/ ?[place]. 2. ??Chronic kidney disease: <60 mL/min/1.73 sq.m. ?Renal Failure: <15 mL/min/1.73 sq.m. Calcium, Corrected(Adj/Ca lc)Total 9.3 mg/dL 05/08/2016 8:[address] [facility] 05/08/2016 7:49 PM EST 05/08/2016 7:52 PM EST us Matthew Avery DO CHEMISTRY ORDERABLES Final Resul t Performing Organization Address City/[facility]/ZIP Co de Phone Number [facility] [address] [place] [address] * Cardiac Profile (CK, CKMB & Trop) (05/08/2016 7:49 PM EST) Troponin I <0.01 0.00 - 0.04 ng/mL 05/08/2016 8:[address] [facility] 05/08/2016 7:49 PM EST 05/08/2016 7:51 PM EST us Matthew Avery DO CHEMISTRY ORDERABLES Final Resul t Performing Organization Address City/[facility]/ZIP Co de Phone Number [facility] [address] [place] [address] documented in this encounter Visit Diagnoses Diagnosis Syncope and collapse- Primary Syncope and collapse HTN (hypertension) Unspecified essential hypertension Asthma Unspecified asthma BMI 35-39.9 Obesity, unspecified Tubular adenoma of colon. Repeat colonoscopy in APR 2019 Benign neoplasm of colon Nonintractable episodic headache documented in this encounter Administered Medications Inactive Administered Medications - up to 3 most recent administrations Medication Order MAR Action Action Date Dose Rate Site acetaminophen (TYLENOL) tablet 650 mg 650 mg, Oral, EVERY 6 HOURS PRN, Mild Pain (1-3), Temperature greater than 100.4 F, Starting on 11/19/16 at 2327 Given 05/10/2016 8:40 AM EST 650 mg Influenza Virus Vacc Split PF (AFLURIA) injection 0.5 mL 0.5 mL, Intramuscular, WHEN MEDICALLY STABLE, Other, Starting on Tue05/08/16 at 2123, For 1 dose, For use in persons 5 years of age and older NaCl 0.9 % infusion at 125 mL/hr, Intravenous, CONTINUOUS, Starting on Tue05/08/16 at 2345, Fluid Replacement New Bag 05/09/2016 12:05 PM EST 125 mL/hr left forearm Rate/Dose Change 05/09/2016 9:43 AM EST 125 mL/ hr left forearm New Bag 05/09/2016 12:19 AM EST 75 mL/hr l eft forearm NaCl 0.9 % infusion at 125 mL/hr, Intravenous, CONTINUOUS, Starting on Tue05/10/16 at 1100, Fluid Replacement New Bag 05/10/2016 12:06 PM EST 125 mL/hr left forearm NaCl 0.9% bolus 500 mL 500 mL, Intravenous, Administer over 61 Minutes, ONCE, On Tue05/10/16 at 0815, For 1 dose, Fluid Replacement New Bag 05/10/2016 8:38 AM EST 500 mLs 492 mL/hr left forearm documented in this encounter Active and Recently Administered Medications Times are shown in EST. Scheduled Medication Order 05/08/2016 05/09/2016 05/10/2016 NaCl 0.9% bolus 500 mL (COMPLETED) 500 mL, Intravenous, Administer over 61 Minutes, ONCE, On Tue05/10/16 at 0815, For 1 dose, Fluid Replacement 0838 (New Bag - Prov ider: Elisabeth Medrano, FIDENCIO)1010 (Stopped - Provider: Elisabeth Medrano, FIDENCIO) Continuous Medication Order 05/08/2016 05/09/2016 05/10/2016 NaCl 0.9 % infusion (CANCELED) at 125 mL/hr, Intravenous, CONTINUOUS, Starting on Tue05/08/16 at 2345, Fluid Replacement 0019 (New Bag - Provider: Johan Castorena, FIDENCIO)0943 (Rate/Dose Change - Provider: Elisabeth Medrano, RN)1205 (New Bag - Provider: Lesley Gomez RN)1848 (Stopped - Provider: Elisabeth Medrano RN) NaCl 0.9 % infusion at 125 mL/hr, Intravenous, CONTINUOUS, Starting on 05/10/16 at 1100, Fluid Replacement 1206 (New Bag - Provider: Guerita Jay, RN)1801 (Stopped - Provider: Kierra Salinas, FIDENCIO) PRN Medication Order 05/08/2016 05/09/2016 05/10/2016 acetaminophen (TYLENOL) tablet 650 mg 650 mg, Oral, EVERY 6 HOURS PRN, Mild Pain (1-3), Temperature greater than 100.4 F, Starting on 05/08/16 at 2327 0840 (Given - Provid er: Elisabeth Medrano, FIDENCIO) Influenza Virus Vacc Split PF (AFLURIA) injection 0.5 mL 0.5 mL, Intramuscular, WHEN MEDICALLY STABLE, Other, Starting on 05/08/16 at 2123, For 1 dose, For use in persons 5 years of age and older 0732 (Not Given - Pr ovider: Princess Dumnot RN - Reason: Patient refused) NaCl 0.9 % flush 3-10 mL 3-10 mL, Intravenous, PRN, Line Care, Starting on 05/08/16 at 2327 NaCl 0.9% flush bag 10 mL/hr, Intravenous, PRN, Other, Starting on 05/08/16 at 2327, Flush bag for flush documented in this encounter Care Teams Mortarman Relationship Specialty Start Date End Date Sal Wright DO PCP - General 08/28/12 04/11/18 documented as of this encounter
--- OUTSIDE RECORDS SUMMARY | 2024-06-24 04:39 | XMS_ITS | Encounter Summary ---
Author Organization [facility]th [facility] [address] [facility] [address] Care Team Providers Care Transcript Evaluator Name Role Phone Sal Wright DO Primary Care Provider [phone] Kilo Wang MD Unavailable [phone] Juan Haddad MD Unavailable +[phone] Dasha Sheppard PA-C Primary Care Provider Chato Mosquera MD Unavailable Trey Jennings MD Unavailable +[phone] Guerita Elliott-C Unavailable +[phone] Matthew Rushing MD Unavailable +[phone] Matthew Rushing MD Unavailable +[phone] Matthew Rushing MD Unavailable +[phone] Matthew Rushing MD Unavailable +[phone] Matthew Rushing MD Unavailable +[phone] Matthew Rushing MD Unavailable +[phone] Matthew Rushing MD Unavailable +[phone] Matthew Rushing MD Unavailable +[phone] Matthew Rushing MD Unavailable +[phone] Matthew Rushing MD Unavailable +[phone] Matthew Rushing MD Unavailable +[phone] Matthew Rushing MD Unavailable +[phone] Matthew Rushing MD Unavailable +[phone] Matthew Rushing MD Unavailable +[phone] Trey Jennings MD Unavailable +4 -5 Guerita Elliott PA-C Unavailable + -5 Matthew Rushing MD Unavailable +[phone] Guerita Elliott J PA-C Unavailable +4 -5 Matthew Rushing MD Unavailable +[phone] Matthew Rushing MD Unavailable +[phone] Guerita Elliott PA-C Unavailable +4 -5 Guerita Elliott PA-C Unavailable + -5 Matthew Rushing MD Unavailable +[phone] Guerita Elliott J PA-C Unavailable +4 -5 Matthew Rushing MD Unavailable +[phone] Matthew Rushing MD Unavailable +[phone] Guerita Elliott PA-C Unavailable +4 -5 Matthew Rushing MD Unavailable +[phone] Guerita Elliott PA-C Unavailable + -5 Matthew Rushing MD Unavailable +[phone] Guerita Elliott PA-C Unavailable +4 -5 Guerita Elliott PA-C Unavailable +4 -5 Matthew Rushing MD Unavailable +[phone] Guerita Elliott PA-C Unavailable +[phone] Matthew Rushing MD Unavailable +[phone] Guerita Elliott PA-C Unavailable +4 -5 Matthew Rushing MD Unavailable +[phone] Lilli Elliotther Alvarez PA-C Unavailable +4 -5 Matthew Rushing MD Unavailable +[phone] Matthew Rushing MD Unavailable +[phone] Lilli Elliotther Alvarez PA-C Unavailable +4 -5 Matthew Rushing MD Unavailable +[phone] Lilli Elliotther Alvarez PA-C Unavailable +[phone] -[phone] Lilli Elliotther J PA-C Unavailable +4 -5 Matthew Rushing MD Unavailable +[phone] Matthew Rushing MD Unavailable +[phone] Earl Guerita Alvarez PA-C Unavailable +4 -5 Earl Guerita Alvarez PA-C Unavailable +4 -4995 Matthew Rushing MD Unavailable +[phone] Matthew Rushing MD Unavailable +[phone] Earl Guerita Alvarez PA-C Unavailable +4 -5 [place] Guerita Alvarez PA-C Unavailable +4 -4995 Matthew Rushing MD Unavailable +[phone] Matthew Rushing MD Unavailable +[phone] Lilli Elliotther Alvarez PA-C Unavailable +4 -4995 Guerita Elliott PA-C Unavailable +4 -4995 Matthew Rushing MD Unavailable +[phone] Matthew Rushing MD Unavailable +[phone] Guerita Elliott PA-C Unavailable +[phone] Guerita Elliott PA-C Unavailable +4 -5 Matthew Rushing MD Unavailable +[phone] Guerita Elliott PA-C Unavailable +4 -4994 Matthew Rushing MD Unavailable +[phone] Matthew Rushing MD Unavailable +[phone] Earl Guerita Alvarez PA-C Unavailable +4 -5 [place] pion J PA-C Unavailable + -5 Matthew Rushing MD Unavailable +[phone] Matthew Rushing MD Unavailable +[phone] Guerita Elliott J PA-C Unavailable +4 -5 Guerita Elliott PA-C Unavailable +4 -5 Matthew Rushing MD Unavailable +[phone] Matthew Rushing MD Unavailable +[phone] Guerita Elliott PA-C Unavailable + -5 Matthew Rushing MD Unavailable +[phone] Guerita Elliott PA-C Unavailable +4 -5 Matthew Rushing MD Unavailable +[phone] Guerita Elliott PA-C Unavailable +4 -5 Guerita Elliott PA-C Unavailable +4 -5 Matthew Rushing MD Unavailable +[phone] Matthew Rushing MD Unavailable +[phone] Guerita Elliott PA-C Unavailable +4 -5 Guerita Elliott PA-C Unavailable +4 -4995 Matthew Rushing MD Unavailable +[phone] Matthew Rushing MD Unavailable +[phone] Guerita Elliott PA-C Unavailable +4 -5 Matthew Rushing MD Unavailable +[phone] Earl Guerita Alvarez PA-C Unavailable +4 -5 Matthew Rushing MD Unavailable +[phone] Lilli Elliotther J PA-C Unavailable +4 -5 Lilli Elliotther J PA-C Unavailable +4 -5 Matthew Rushing MD Unavailable +[phone] Matthew Rushing MD Unavailable +[phone] Earl Guerita Alvarez PA-C Unavailable +4 -[phone] Earl Guerita J PA-C Unavailable +4 -5 Matthew Rushing MD Unavailable +[phone] Guerita Elliott PA-C Unavailable +4 -5 Matthew Rushing MD Unavailable +[phone] Matthew Rushing MD Unavailable +[phone] Earl Guerita Alvarez PA-C Unavailable +4 -5 Matthew Rushing MD Unavailable +[phone] Earl Guerita Alvarez PA-C Unavailable +4 -5 Matthew Rushing MD Unavailable +[phone] Guerita Elliott PA-C Unavailable +4 -5 Guerita Elliott PA-C Unavailable +4 -5 Matthew Rushing MD Unavailable +[phone] Matthew Rushing MD Unavailable +[phone] Guerita Elliott J PA-C Unavailable +4 -5 Matthew Rushing MD Unavailable +[phone] Guerita Elliott PA-C Unavailable +[phone] Matthew Rushing MD Unavailable +[phone] Guerita Elliott PA-C Unavailable +[phone] Guerita Elliott PA-C Unavailable +4 -4994 Matthew Rushing MD Unavailable +[phone] Guerita Elliott PA-C Unavailable + -[phone] Matthew Rushing MD Unavailable +[phone] Guerita Elliott PA-C Unavailable + -[phone] Matthew Rushing MD Unavailable +[phone] Guerita Elliott PA-C Unavailable +[phone] Matthew Rushing MD Unavailable +[phone] Guerita Elliott PA-C Unavailable + -[phone] Matthew Rushing MD Unavailable +[phone] Guerita Elliott PA-C Unavailable +[phone] Matthew Rushing MD Unavailable +[phone] Txfr Provider Family [facility], Temporary Primary Care Provider Matthew Rushing MD Unavailable +[phone] Guerita Elliott-C Unavailable +[phone] Matthew Rushing MD Unavailable +[phone] Guerita Elliott-C Unavailable +[phone] Matthew Rushing MD Unavailable +[phone] Guerita Elliott PA-C Unavailable +[phone] Guerita Elliott-C Unavailable +[phone] Matthew Rushing MD Unavailable +[phone] Guerita Elliott PA-C Unavailable +[phone] Matthew Rushing MD Unavailable +[phone] Matthew Rushing MD Unavailable +[phone] Guerita Elliott-C Unavailable +4 -5 Matthew Rushing MD Unavailable Guerita Elliott Kim PA-C Unavailable + -5 Guerita Elliott J PA-C Unavailable +4 -5 Matthew Rushing MD Unavailable +[phone] Matthew Rushing MD Unavailable +[phone] Guerita Elliott J PA-C Unavailable +14 -5 Matthew Rushing MD Unavailable +[phone] Guerita Elliott Kim PA-C Unavailable +4 -5 Matthew Rushing MD Unavailable +[phone] [place] pinoher Alvarez PA-C Unavailable +4 -5 Matthew Rushing MD Unavailable +[phone] Guerita Elliott J PA-C Unavailable +4 -4995 Guerita Elliott Kim PA-C Unavailable +4 -4995 Matthew Rushing MD Unavailable +[phone] Matthew Rushing MD Unavailable +[phone] Earl Guerita J PA-C Unavailable +4 -5 Matthew Rushing MD Unavailable +[phone] Guerita Elliott Kim PA-C Unavailable +4 -4995 Matthew Rushing MD Unavailable +[phone] Guerita Elliott Kim PA-C Unavailable +4 -4995 Earl Guerita J PA-C Unavailable +4 -4995 Matthew Rushing MD Unavailable +[phone] Matthew Rushing MD Unavailable +[phone] Guerita Elliott PA-C Unavailable +4 -4995 Guerita Elliott PA-C Unavailable +4 -4995 Matthew Rushing MD Unavailable +[phone] Lilli Elliotther Alvarez PA-C Unavailable +4 -4995 Matthew Rushing MD Unavailable +[phone] Lilli Elliotther Alvarez PA-C Unavailable +4 -4995 Matthew Rushing MD Unavailable +[phone] Matthew Rushing MD Unavailable +[phone] Lilli Elliotther Alvarez PA-C Unavailable +[phone] Matthew Del Toro MD Primary Care Provider [phone] Lilli Elliotther Alvarez PA-C Unavailable +[phone] Matthew Rushing MD Unavailable +[phone] Earl Guerita Alvarez PA-C Unavailable +4 -4995 Matthew Rushing MD Unavailable +[phone] Earl Guerita Alvarez PA-C Unavailable +[phone] Matthew Rushing MD Unavailable +[phone] Earl, Guerita Alvarez PA-C Unavailable +4 -4995 Matthew Rushing MD Unavailable +[phone] Earl, Guerita Alvarez PA-C Unavailable +4 -4995 Matthew Rushing MD Unavailable +[phone] Matthew Rushing MD Unavailable +[phone] Earl, Guerita Alvarez PA-C Unavailable +[phone] Guerita Elliott PA-C Unavailable +4 -4995 Matthew Rushing MD Unavailable +[phone] Matthew Rushing MD Unavailable +[phone] Guerita Elliott PA-C Unavailable +[phone] Matthew Rushing MD Unavailable +[phone] Guerita Elliott Kim PA-C Unavailable +[phone] Lilli Elliotther J PA-C Unavailable +4 -4995 Matthew Rushing MD Unavailable +[phone] Matthew Rushing MD Unavailable +[phone] Guerita Elliott J PA-C Unavailable +[phone] Lilli Elliotther J PA-C Unavailable +[phone] Matthew Rushing MD Unavailable +[phone] Lilli Elliotther J PA-C Unavailable +4 -4995 Matthew Rushing MD Unavailable +[phone] Matthew Rushing MD Unavailable +[phone] Lilli Elliotther Alvarez PA-C Unavailable +4 -4995 Matthew Rushing MD Unavailable +[phone] Guerita Elliott Kim PA-C Unavailable +4 -4995 Matthew Rushing MD Unavailable +[phone] Lilli Elliotther Alvarez PA-C Unavailable +[phone] Earl Guerita Alvarez PA-C Unavailable +[phone] Matthew Rushing MD Unavailable +[phone] [place] PA-C Unavailable +4 -[phone] Matthew Rushing MD Unavailable Earl, Guerita Alvarez PA-C Unavailable +[phone] Matthew Rushing MD Unavailable +[phone] Matthew Rushing MD Unavailable +[phone] Guerita Elliott PA-C Unavailable +[phone] Matthew Rushing MD Unavailable +[phone] Guerita Elliott PA-C Unavailable +[phone] Matthew Rushing MD Unavailable Earl Guerita Alvarez PA-C Unavailable +[phone] EarlGueritaC Unavailable +[phone] Matthew Rushing MD Unavailable Guerita Elliott PA-C Unavailable +[phone] Matthew Rushing MD Unavailable +[phone] Guerita Elliott PA-C Unavailable +[phone] Matthew Rushing MD Unavailable +[phone] EarlGuerita PA-C Unavailable +[phone] Matthew Rushing MD Unavailable +[phone] Guerita Elliott PA-C Unavailable +[phone] Matthew Rushing MD Unavailable [phone] Encounter Details Date Type Department Care Team (Late st Contact Info) Description 08/16/2017 Orders Only [address] [address] Provider, Historical Social History Tobacco Use Types Packs/Day Years [...] Procedure Name Priority Date/Time Associated Diagnosis Comments SCANNED RESULT-LAB 08/16/2017 7: 06 AM EST documented in this encounter Results * SCANNED RESULT-LAB (08/16/2017 7:06 AM EST) 08/16/2017 7:06 AM EST Narrative Tena Jc - 08/16/2017 7:06 AM EST Ordered by an unspecified provider. us Historical Provider Final Result documented in this encounter Visit Diagnoses Not on filedocumented in this encounter Additional Health Concerns Infection Onset Date Last Indicated Resolved Time Symptomatic COVID PUI 06/07/2020 06/07/20202019 5:59 AM EST Asymptomatic COVID PUI 06/07/2020 06/07/202006/10 5:59 AM EST Symptomatic COVID PUI 03/26/2021 03/27/20212020 7:16 PM EDT COVID-19 03/27/2021 03/27/2021 04/17/2021 8:34 PM EDT documented as of this encounter Care Teams Transcript Evaluator Relationship Specialty Start Date End Date Sal Wright DO PCP - General 08/28/12 04/11/18 Dasha Sheppard PA-C [address] [address] PCP - General Family Practice 04/12/18 07/10/23 Txfr Provider Family Medicine [place], Temporary [address] [facility] [address] [place] [address] PCP - General Family Practice 07/11/23 12/11/23 Matthew Del Toro MD [address] [facility] [address] [place] [address] PCP - General Family Practice 12/12/23 Kilo Wang MD Consulting Physician Neurology 08/30/16 12/01/21 Juan Haddad MD [address] [address] Otolaryngology 09/23/17 Chato Mosquera MD [address] [place] [address] [address] [place] [address] Certified Nurse Midwife Endocrinology, Diabetes & Metabolism 12/07/18 12/10/18 Trey Jennings MD [address] [address] Consulting Physician Cardiothoracic Surgery 07/13/21 Guerita Elliott PA-C [address] [place] [address] [facility] Specialist Cardiothoracic Surgery 01/03/22 06/27/22 Matthew Rushing MD [address] [place] [address] [facility] Specialist Cardiology - General 03/07/22 03/28/22 Matthew Rushing MD [address] [place] [address] [facility] Specialist Cardiology - General 04/04/22 04/04/22 Matthew Rushing MD [address] [place] [address] [facility] Specialist Cardiology - General 04/11/22 04/11/22 Matthew Rushing MD [address] [place] [address] [facility] Specialist Cardiology - General 04/18/22 04/18/22 Matthew Rushing MD [address] [place] [address] [facility] Specialist Cardiology - General 04/25/22 04/25/22 Matthew Rushing MD [address] [place] [address] [facility] Specialist Cardiology - General 05/02/22 05/02/22 Matthew Rushing MD [address] [place] [address] [facility] Specialist Cardiology - General 05/09/22 05/09/22 Matthew Rushing MD [address] [place] [address] [facility] Specialist Cardiology - General 05/16/22 05/16/22 Matthew Rushing MD [address] [place] [address] [facility] Specialist Cardiology - General 05/23/22 05/23/22 Matthew Rushing MD [address] [place] [address] [facility] Specialist Cardiology - General 05/30/22 05/30/22 Matthew Rushing MD [address] [place] [address] [facility] Specialist Cardiology - General 06/06/22 06/06/22 Matthew Rushing MD [address] [place] [address] [facility] Specialist Cardiology - General 06/13/22 06/13/22 Matthew Rushing MD [address] [place] [address] [facility] Specialist Cardiology - General 06/20/22 06/20/22 Matthew Rushing MD [address] [place] [address] [facility] Specialist Cardiology - General 06/27/22 06/27/22 Trey Jennings MD [address] [address] [facility] Specialist Cardiothoracic Surgery 06/27/22 Guerita Elliott PA-C [address] [place] [address] [facility] Specialist Cardiothoracic Surgery 07/04/22 3 Matthew Rushing MD [address] [place] [address] [facility] Specialist Cardiology - General 07/04/22 07/04/22 Guerita Elliott PA-C [address] [place] [address] [facility] Specialist Cardiothoracic Surgery 07/11/22 3 Matthew Rushing MD [address] [place] [address] [facility] Specialist Cardiology - General 07/11/22 07/11/22 Matthew Rushing MD [address] [place] [address] [facility] Specialist Cardiology - General 07/18/22 07/18/22 Guerita Elliott PA-C [address] [address] [facility] Specialist Cardiothoracic Surgery 07/18/22 3 Guerita Elliott PA-C [address] [address] [facility] Specialist Cardiothoracic Surgery 07/25/22 07/25/22 Matthew Rushing MD [address] [place] [address] [facility] Specialist Cardiology - General 07/25/22 07/25/22 Guerita Elliott PA-C [address] [address] [facility] Specialist Cardiothoracic Surgery 08/01/22 3 Matthew Rushing MD [address] [place] [address] [facility] Specialist Cardiology - General 08/01/22 08/01/22 Matthew Rushing MD [address] [place] [address] [facility] Specialist Cardiology - General 08/08/22 08/08/22 Guerita Elliott PA-C [address] [address] [facility] Specialist Cardiothoracic Surgery 08/08/22 3 Matthew Rushing MD [address] [place] [address] [facility] Specialist Cardiology - General 08/15/22 08/15/22 Gureita Elliott PA-C [address] [address] [facility] Specialist Cardiothoracic Surgery 08/15/22 3 Matthew Rushing MD [address] [place] [address] [facility] Specialist Cardiology - General 08/22/22 08/22/22 Guerita Elliott PA-C [address] [address] [facility] Specialist Cardiothoracic Surgery 08/22/22 08/22/22 Guerita Elliott PA-C [address] [address] [facility] Specialist Cardiothoracic Surgery 08/29/22 3 Matthew Rushing MD [address] [place] [address] [facility] Specialist Cardiology - General 08/29/22 08/29/22 Guerita Elliott PA-C [address] [address] [facility] Specialist Cardiothoracic Surgery 09/05/22 3 Matthew Rushing MD [address] [place] [address] [facility] Specialist Cardiology - General 09/05/22 09/05/22 Guerita Elliott PA-C [address] [address] [facility] Specialist Cardiothoracic Surgery 09/12/22 Matthew Rushing MD [address] [place] [address] [facility] Specialist Cardiology - General 09/12/22 09/12/22 Guerita Elliott PA-C [address] [address] [facility] Specialist Cardiothoracic Surgery 09/19/22 09/19/22 Matthew Rushing MD [address] [place] [address] [facility] Specialist Cardiology - General 09/19/22 09/19/22 Matthew Rushing MD [address] [place] [address] [facility] Specialist Cardiology - General 09/26/22 09/26/22 Guerita Elliott PA-C [address] [place] [address] [facility] Specialist Cardiothoracic Surgery 09/26/22 09/26/22 Matthew Rushing MD [address] [place] [address] [facility] Specialist Cardiology - General 10/03/22 10/03/22 Guerita Elliott PA-C [address] [address] [facility] Specialist Cardiothoracic Surgery 10/03/22 3 Guerita Elliott PA-C [address] [address] [facility] Specialist Cardiothoracic Surgery 10/10/22 3 Matthew Rushing MD [address] [place] [address] [facility] Specialist Cardiology - General 10/10/22 10/10/22 Matthew Rushing MD [address] [place] [address] [facility] Specialist Cardiology - General 10/17/22 10/17/22 Guerita Elliott PA-C [address] [address] [facility] Specialist Cardiothoracic Surgery 10/17/22 3 Guerita Elliott PA-C [address] [address] [facility] Specialist Cardiothoracic Surgery 10/24/22 10/24/22 Matthew Rushing MD [address] [place] [address] [facility] Specialist Cardiology - General 10/24/22 10/24/22 Matthew Rushing MD [address] [place] [address] [facility] Specialist Cardiology - General 10/31/22 10/31/22 Guerita Elliott PA-C [address] [address] [facility] Specialist Cardiothoracic Surgery 10/31/22 3 Guerita Elloitt PA-C [address] [address] [facility] Specialist Cardiothoracic Surgery 11/07/22 3 Matthew Rushing MD [address] [place] [address] [facility] Specialist Cardiology - General 11/07/22 11/07/22 Matthew Rushing MD [address] [place] [address] [facility] Specialist Cardiology - General 11/14/22 11/14/22 Guerita Elliott PA-C [address] [address] [facility] Specialist Cardiothoracic Surgery 11/14/22 3 Guerita Elliott PA-C [address] [address] [facility] Specialist Cardiothoracic Surgery 11/21/22 11/21/22 Matthew Rushing MD [address] [place] [address] [facility] Specialist Cardiology - General 11/21/22 11/21/22 Matthew Rushing MD [address] [place] [address] [facility] Specialist Cardiology - General 11/28/22 11/28/22 Guerita Elliott PA-C [address] [address] [facility] Specialist Cardiothoracic Surgery 11/28/22 3 Guerita Elliott PA-C [address] [address] [facility] Specialist Cardiothoracic Surgery 12/05/22 3 Matthew Rushing MD [address] [place] [address] [facility] Specialist Cardiology - General 12/05/22 12/05/22 Guerita Elliott PA-C [address] [address] [facility] Specialist Cardiothoracic Surgery 12/12/22 3 Matthew Rushing MD [address] [place] [address] [facility] Specialist Cardiology - General 12/12/22 12/12/22 Matthew Rushing MD [address] [place] [address] [facility] Specialist Cardiology - General 12/19/22 12/19/22 Guerita Elliott PA-C [address] [address] [facility] Specialist Cardiothoracic Surgery 12/19/22 12/19/22 Guerita Elliott PA-C [address] [address] [facility] Specialist Cardiothoracic Surgery 12/26/22 12/26/22 Matthew Rushing MD [address] [place] [address] [facility] Specialist Cardiology - General 12/26/22 12/26/22 Matthew Rushing MD [address] [place] [address] [facility] Specialist Cardiology - General 01/02/23 01/02/23 Guerita Elliott PA-C [address] [address] [facility] Specialist Cardiothoracic Surgery 01/02/23 3 Guerita Elliott PA-C [address] [address] [facility] Specialist Cardiothoracic Surgery 01/09/23 3 Matthew Rushing MD [address] [place] [address] [facility] Specialist Cardiology - General 01/09/23 01/09/23 Matthew Rushing MD [address] [place] [address] [facility] Specialist Cardiology - General 01/16/23 01/16/23 Guerita Elliott PA-C [address] [address] [facility] Specialist Cardiothoracic Surgery 01/16/23 3 Matthew Rushing MD [address] [place] [address] [facility] Specialist Cardiology - General 01/23/23 01/23/23 Guerita Elliott PA-C [address] [address] [facility] Specialist Cardiothoracic Surgery 01/23/23 01/23/23 Matthew Rushing MD [address] [place] [address] [facility] Specialist Cardiology - General 01/30/23 01/30/23 Guerita Elliott PA-C [address] [address] [facility] Specialist Cardiothoracic Surgery 01/30/23 3 Guerita Elliott PA-C [address] [address] [facility] Specialist Cardiothoracic Surgery 02/06/23 3 Matthew Rushing MD [address] [place] [address] [facility] Specialist Cardiology - General 02/06/23 02/06/23 Matthew Rushing MD [address] [place] [address] [facility] Specialist Cardiology - General 02/13/23 02/13/23 Guerita Elliott PA-C [address] [address] [facility] Specialist Cardiothoracic Surgery 02/13/23 Guerita Elliott PA-C [address] [address] [facility] Specialist Cardiothoracic Surgery 02/20/23 02/20/23 Matthew Rushing MD [address] [place] [address] [facility] Specialist Cardiology - General 02/20/23 02/20/23 Matthew Rushing MD [address] [place] [address] [facility] Specialist Cardiology - General 02/27/23 02/27/23 Guerita Elliott PA-C [address] [address] [facility] Specialist Cardiothoracic Surgery 02/27/23 Matthew Rushing MD [address] [place] [address] [facility] Specialist Cardiology - General 03/06/23 03/06/23 Guerita Elliott PA-C [address] [address] [facility] Cardiothoracic Surgery 03/06/23 3 Matthew Rushing MD [address] [place] [address] [facility] Cardiology - General 03/13/23 03/13/23 Guerita Elliott PA-C [address] [address] [facility] Cardiothoracic Surgery 03/13/23 3 Guerita Elliott PA-C [address] [address] [facility] Cardiothoracic Surgery 03/20/23 3 Matthew Rushing MD [address] [place] [address] [facility] Cardiology - General 03/20/23 03/20/23 Matthew Rushing MD [address] [place] [address] [facility] Cardiology - General 03/27/23 03/27/23 Guerita Elliott PA-C [address] [place] [address] [facility] Cardiothoracic Surgery 03/27/23 3 Guerita Elliott PA-C [address] [place] [address] [facility] Cardiothoracic Surgery 04/03/23 Matthew Rushing MD [address] [place] [address] [facility] Cardiology - General 04/03/23 04/03/23 Guerita Elliott PA-C [address] [address] [facility] Cardiothoracic Surgery 04/10/23 Matthew Rushing MD [address] [place] [address] [facility] Cardiology - General 04/10/23 04/10/23 Matthew Rushing MD [address] [place] [address] [facility] Cardiology - General 04/17/23 04/17/23 Guerita Elliott PA-C [address] [place] [address] [facility] Cardiothoracic Surgery 04/17/23 Matthew Rushing MD [address] [place] [address] [facility] Cardiology - General 04/24/23 04/24/23 Guerita Elliott PA-C [address] [address] [facility] Cardiothoracic Surgery 04/24/23 3 Matthew Rushing MD [address] [place] [address] [facility] Cardiology - General 05/01/23 05/01/23 Guerita Elliott PA-C [address] [facility] Cardiothoracic Surgery 05/01/23 Guerita Elliott PA-C [address] [address] [facility] Cardiothoracic Surgery 05/08/23 Matthew Rushing MD [address] [place] [address] [facility] Cardiology - General 05/08/23 05/08/23 Matthew Rushing MD [address] [place] [address] [facility] Cardiology - General 05/15/23 05/15/23 Guerita Elliott PA-C [address] [address] [facility] Cardiothoracic Surgery 05/15/23 Matthew Rushing MD [address] [place] [address] [facility] Cardiology - General 05/22/23 05/22/23 Guerita Elliott PA-C [address] [address] [facility] Cardiothoracic Surgery 05/22/23 3 Matthew Rushing MD [address] [place] [address] [facility] Cardiology - General 05/29/23 05/29/23 Guerita Elliott PA-C [address] [facility] Cardiothoracic Surgery 05/29/23 Guerita Elliott PA-C [address] [address] [facility] Cardiothoracic Surgery 06/05/23 Matthew Rushing MD [address] [place] [address] [facility] Cardiology - General 06/05/23 06/05/23 Guerita Elliott PA-C [address] [facility] Cardiothoracic Surgery 06/12/23 Matthew Rushing MD [address] [place] [address] [facility] Cardiology - General 06/12/23 06/12/23 Guerita Elliott PA-C [address] [address] [facility] Cardiothoracic Surgery 06/19/23 Matthew Rushing MD [address] [place] [address] [facility] Cardiology - General 06/19/23 06/19/23 Guerita Elliott PA-C [address] [facility] Cardiothoracic Surgery 06/26/23 06/26/23 Matthew Rushing MD [address] [place] [address] [facility] Cardiology - General 06/26/23 06/26/23 Guerita Elliott PA-C [address] [address] [facility] Cardiothoracic Surgery 07/03/23 4 Matthew Rushing MD [address] [place] [address] [facility] Cardiology - General 07/03/23 07/03/23 Guerita Elliott PA-C [address] [place] [address] [facility] Cardiothoracic Surgery 07/10/23 4 Matthew Rushing MD [address] [place] [address] [facility] Cardiology - General 07/10/23 07/10/23 Matthew Rushing MD [address] [place] [address] [facility] Cardiology - General 07/17/23 07/17/23 Guerita Elliott PA-C [address] [place] [address] [facility] Cardiothoracic Surgery 07/17/23 4 Matthew Rushing MD [address] [place] [address], [place] [address] [facility] Cardiology - General 07/24/23 07/24/23 Guerita Elliott PA-C [address] [place] [address] [facility] Cardiothoracic Surgery 07/24/23 07/24/23 Matthew Rushing MD [address] [place] [address], [place] [address] [facility] Cardiology - General 07/31/23 07/31/23 Guerita Elliott PA-C [address] [place] [address] [facility] Cardiothoracic Surgery 07/31/23 4 Guerita Elliott PA-C [address] [place] [address] [facility] Cardiothoracic Surgery 08/07/23 4 Matthew Rushing MD [address] [place] [address], [place] [address] [facility] Cardiology - General 08/07/23 08/07/23 Guerita Elliott PA-C [address] [place] [address] [facility] Cardiothoracic Surgery 08/14/23 4 Matthew Rushing MD [address] [place] [address] [facility] Cardiology - General 08/14/23 08/14/23 Matthew Rushing MD [address] [place] [address] [facility] Cardiology - General 08/21/23 08/21/23 Guerita Elliott PA-C [address] [address] [facility] Cardiothoracic Surgery 08/21/23 08/21/23 Matthew Rushing MD [address] [place] [address] [facility] Cardiology - General 08/28/23 08/28/23 Guerita Elliott PA-C [address] [facility] Cardiothoracic Surgery 08/28/23 4 Guerita Elliott PA-C [address] [address] [facility] Cardiothoracic Surgery 09/04/23 4 Matthew Rushing MD [address] [place] [address] [facility] Cardiology - General 09/04/23 09/04/23 Matthew Rushing MD [address] [place] [address] [facility] Cardiology - General 09/11/23 09/11/23 Guerita Elliott PA-C [address] [facility] Cardiothoracic Surgery 09/11/23 4 Matthew Rushing MD [address] [place] [address] [facility] Cardiology - General 09/18/23 09/18/23 Guerita Elliott PA-C [address] [place] [address] [facility] Cardiothoracic Surgery 09/18/23 4 Matthew Rushing MD [address] [place] [address] [facility] Cardiology - General 09/25/23 09/25/23 Guerita Elliott PA-C [address] [address] [facility] Cardiothoracic Surgery 09/25/23 09/25/23 Matthew Rushing MD [address] [place] [address] [facility] Cardiology - General 10/02/23 10/02/23 Guerita Elilott PA-C [address] [address] [facility] Cardiothoracic Surgery 10/02/23 4 Guerita Elliott PA-C [address] [address] [facility] Cardiothoracic Surgery 10/09/23 4 Matthew Rushing MD [address] [place] [address] [facility] Cardiology - General 10/09/23 10/09/23 Matthew Rushing MD [address] [place] [address] [facility] Cardiology - General 10/16/23 10/16/23 Guerita Elliott PA-C [address] [place] [address] [facility] Cardiothoracic Surgery 10/16/23 4 Matthew Rushing MD [address] [place] [address] [facility] Cardiology - General 10/23/23 10/23/23 Guerita Elliott PA-C [address] [place] [address] [facility] Cardiothoracic Surgery 10/23/23 10/23/23 Matthew Rushing MD [address] [place] [address] [facility] Cardiology - General 10/30/23 10/30/23 Guerita Elliott PA-C [address] [place] [address] [facility] Cardiothoracic Surgery 10/30/23 4 Guerita Elliott PA-C [address] [place] [address] [facility] Cardiothoracic Surgery 11/06/23 4 Matthew Rushing MD [address] [place] [address], [place] [address] [facility] Cardiology - General 11/06/23 11/06/23 Matthew Rushing MD [address] [place] [address] [facility] Cardiology - General 11/13/23 11/13/23 Guerita Elliott PA-C [address] [place] [address] [facility] Cardiothoracic Surgery 11/13/23 4 Guerita Elliott PA-C [address] [place] [address] [facility] Cardiothoracic Surgery 11/20/23 11/20/23 Matthew Rushing MD [address] [place] [address] [facility] Cardiology - General 11/20/23 11/20/23 Guerita Elliott PA-C [address] [place] [address] [facility] Cardiothoracic Surgery 11/27/23 11/27/23 Matthew Rushing MD [address] [place] [address] [facility] Cardiology - General 11/27/23 11/27/23 Guerita Elliott PA-C [address] [address] [facility] Cardiothoracic Surgery 12/04/23 4 Matthew Rushing MD [address] [place] [address] [facility] Cardiology - General 12/04/23 12/04/23 Matthew Rushing MD [address] [place] [address] [facility] Cardiology - General 12/11/23 12/11/23 Guerita Elliott PA-C [address] [address] [facility] Cardiothoracic Surgery 12/11/23 4 Guerita Elliott PA-C [address] [address] [facility] Cardiothoracic Surgery 12/18/23 4 Matthew Rushing MD [address] [place] [address] [facility] Cardiology - General 12/18/23 12/18/23 Guerita Elliott PA-C [address] [address] [facility] Cardiothoracic Surgery 12/25/23 12/25/23 Matthew Rushing MD [address] [place] [address] [facility] Cardiology - General 12/25/23 12/25/23 Guerita Elliott PA-C [address] [address] [facility] Cardiothoracic Surgery 01/01/24 4 Matthew Rushing MD [address] [place] [address] [facility] Cardiology - General 01/01/24 01/01/24 Guerita Elliott PA-C [address] [address] [facility] Cardiothoracic Surgery 01/08/24 4 Matthew Rushing MD [address] [place] [address] [facility] Cardiology - General 01/08/24 01/08/24 Guerita Elliott PA-C [address] [address] [facility] Cardiothoracic Surgery 01/15/24 4 Matthew Rushing MD [address] [place] [address] [facility] Cardiology - General 01/15/24 01/15/24 Matthew Rushing MD [address] [place] [address] [facility] Cardiology - General 01/22/24 01/22/24 Guerita Elliott PA-C [address] [address] [facility] Cardiothoracic Surgery 01/22/24 01/22/24 Guerita Elliott PA-C [address] [facility] Cardiothoracic Surgery 01/29/24 4 Matthew Rushing MD [address] [place] [address] [facility] Cardiology - General 01/29/24 01/29/24 Matthew Rushing MD [address] [place] [address] [facility] Cardiology - General 02/05/24 02/05/24 Guerita Elliott PA-C [address] [address] [facility] Cardiothoracic Surgery 02/05/24 4 Mtathew Rushing MD [address] [place] [address] [facility] Cardiology - General 02/12/24 02/12/24 Guerita Elliott PA-C [address] [place] [address] [facility] Cardiothoracic Surgery 02/12/24 4 Guerita Elliott PA-C [address] [address] [facility] Cardiothoracic Surgery 02/19/24 02/19/24 Matthew Rushing MD [address] [place] [address] [facility] Cardiology - General 02/19/24 02/19/24 Matthew Rushing MD [address] [place] [address] [facility] Cardiology - General 02/26/24 02/26/24 Guerita Elliott PA-C [address] [address] [facility] Cardiothoracic Surgery 02/26/24 02/26/24 Guerita Elliott PA-C [address] [facility] Cardiothoracic Surgery 03/04/24 4 Matthew Rushing MD [address] [place] [address] [facility] Cardiology - General 03/04/24 03/04/24 Guerita Elliott PA-C [address] [address] [facility] Cardiothoracic Surgery 03/11/24 4 Matthew Rushing MD [address] [place] [address] [facility] Cardiology - General 03/11/24 03/11/24 Matthew Rushing MD [address] [place] [address] [facility] Cardiology - General 03/18/24 03/18/24 Guerita Elliott PA-C [address] [address] [facility] Cardiothoracic Surgery 03/18/24 4 Matthew Rushing MD [address] [place] [address] [facility] Cardiology - General 03/25/24 03/25/24 Guerita Elliott PA-C [address] [address] [facility] Cardiothoracic Surgery 03/25/24 4 Matthew Rushing MD [address] [place] [address] [facility] Cardiology - General 04/01/24 04/01/24 Guerita Elliott PA-C [address] [address] [facility] Cardiothoracic Surgery 04/01/24 Guerita Elliott PA-C [address] [address] [facility] Cardiothoracic Surgery 04/08/24 Matthew Rushing MD [address] [place] [address] [facility] Cardiology - General 04/08/24 04/08/24 Guerita Elliott PA-C [address] [address] [facility] Cardiothoracic Surgery 04/15/24 Matthew Rushing MD [address] [place] [address] [facility] Cardiology - General 04/15/24 04/15/24 Guerita Elliott PA-C [address] [place] [address] [facility] Cardiothoracic Surgery 04/22/24 4 Matthew Rushing MD [address] [place] [address] [facility] Cardiology - General 04/22/24 04/22/24 Matthew Rushing MD [address] [place] [address] [facility] Cardiology - General 04/29/24 04/29/24 Guerita Elliott PA-C [address] [address] [facility] Cardiothoracic Surgery 04/29/24 Matthew Rushing MD [address] [place] [address] [facility] Cardiology - General 05/06/24 05/06/24 Guerita Elliott PA-C [address] [address] [facility] Cardiothoracic Surgery 05/06/24 Matthew Rushing MD [address] [place] [address] [facility] Cardiology - General 05/13/24 05/13/24 Guerita Elliott PA-C [address] [address] [facility] Cardiothoracic Surgery 05/13/24 Guerita Elliott PA-C [address] [address] [facility] Cardiothoracic Surgery 05/20/24 4 Matthew Rushing MD [address] [place] [address] [facility] Cardiology - General 05/20/24 05/20/24 Guerita Elliott PA-C [address] [address] [facility] Cardiothoracic Surgery 05/27/24 4 Matthew Rushing MD [address] [place] [address] [facility] Cardiology - General 05/27/24 05/27/24 Guerita Elliott PA-C [address] [address] [facility] Cardiothoracic Surgery 06/03/24 Matthew Rushing MD [address] [place] [address] [facility] Cardiology - General 06/03/24 06/03/24 Guerita Elliott PA-C [address] [address] [facility] Cardiothoracic Surgery 06/10/24 Matthew Rushing MD [address] [place] [address] [facility] Cardiology - General 06/10/24 06/10/24 Guerita Elliott PA-C [address] [place] [address] [facility] Cardiothoracic Surgery 06/17/24 Matthew Rushing MD [address] [place] [address] [facility] Cardiology - General 06/17/24 06/17/24 documented as of this encounter
--- OUTSIDE RECORDS SUMMARY | 2024-06-24 04:39 | XMS_ITS | Encounter Summary ---
Author Organization [facility] Address [address] [place] [address] Care Team Providers Care E Commerce Manager Name Role Phone Sal Wright DO Primary Care Provider [phone] Reason for Visit * Reason Comments Cough Encounter Details Date Type Department Care Team (Late st Contact Info) Description 08/28/2012 12:00 PM EDT Office Visit [facility] [address] [phone] Adeline Bhandari, [place] [address] [place] [address] Allergic rhinitis (Primary Dx) Discharge Disposition: Home/Self Care Social History Tobacco Use Types Packs/Day Years Used Date Smoking Tobacco: Never Smokeless Tobacco: Current Tobacco Cessation:Counseling Given: Yes Comments:chew tobacco 1 can a week [...] Sign Reading Time Taken Comments Blood Pressure 130/90 08/28/2012 11:50 AM EDT Pulse 88 08/28/2012 11:50 AM EDT Temperature 36.2 ??C (97.2 ??F) 08/28/2012 11:50 AM E DT Respiratory Rate 18 08/28/2012 11:50 AM EDT Oxygen Saturation - - Inhaled Oxygen Concentration - - Weight - - Height - - Body Mass Index - - documented in this encounter Patient Instructions * Patient Instructions* Adeline Bhandari CRNP - 08/28/2012 11:59 AM EDT Take flonase one spay each nostril once a day and davian or zyrtec once a day or Benadryl at night, if symptoms persist then follow up with your Doctor or if worsen then go to emergency room. Dont take Sudafed or ibuprofen as it will raise your blood pressure, you may take tylenol for headache. documented in this encounter Progress Notes * Adeline Bhandari CRNP - 08/28/2012 12:02 PM EDT Subjective: HPI Robert Alexis is a 47 y.o. male who presents with chief complaint of Cough. 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 Has history of hypertension but no medications as his doctor is just monitoring it, has history of asthma but not using any inhaler for so many years. He said he had allergic to penicillin but he used one dose of amoxicillin from his son's medications who is being treated for sinusitis so he can get some relief but he said he did not feel better because his son only gave him one tab. He did not get any rash after taking the medications. Review of Systems Constitutional: Positive for malaise/fatigue. Negative for fever and chills. HENT: Positive for ear pain and congestion. Negative for sore throat. Respiratory: Positive for cough. Neurological: Positive for headaches. All other systems reviewed and are negative. Future appointments already scheduled: No future appointments. Objective: Vitals: BP 130/90 Pulse 88 Temp(Src) 97.2 ??F (36.2 ??C) (Tympanic) Resp 18 Physical Exam Constitutional: He is oriented to person, place, and time. He appears well-developed. HENT: Bilateral ears: TM visible, no ear wax, no discharge, no redness or tenderness Sinus-pharynx injected, slight brownish nasal discharge, no facial sinus tenderness on palpation Tonsils not enlarged, no exudates Eyes: Pupils are equal, round, and reactive to light. Neck: Normal range of motion. Cardiovascular: Normal rate. Pulmonary/Chest: Effort normal. No respiratory distress. He has no wheezes. He has no rales. He exhibits no tenderness. No coughing noted. Lymphadenopathy: He has no cervical adenopathy. Neurological: He is alert and oriented to person, place, and time. Assessment & Plan: 1. Allergic rhinitis fluticasone (FLONASE) 50 MCG/ACT nasal spray- 1 spray each nostril once a day as needed. Take flonase one spay each nostril once a day and davian or zyrtec once a day or Benadryl at night, if symptoms persist then follow up with your Doctor or if worsen then go to emergency room. Dont take Sudafed or ibuprofen as it will raise your blood pressure, you may take tylenol for headache. documented in this encounter Plan of Treatment Not on file documented as of this encounter Visit Diagnoses Diagnosis Allergic rhinitis- Primary Allergic rhinitis, cause unspecified documented in this encounter Care Teams E Commerce Manager Relationship Specialty Start Date End Date Sal Wright DO PCP - General 08/28/12 04/11/18 documented as of this encounter
--- OUTSIDE RECORDS SUMMARY | 2024-06-24 04:39 | XMS_ITS | Encounter Summary ---
Author Organization [facility] alth Address [address] [place] [address] Care Team Providers Care Hazmat Technician Name Role Phone Sal Wright DO Primary Care Provider Kilo Wang MD Unavailable [phone] Juan Haddad MD Unavailable [phone] Reason for Visit * Reason Comments Flank Pain Encounter Details Date Type Department Care Team ([facility] st Contact Info) Description 10/11/2017 7:44 PM EDT - 10/11/2017 9:22 PM EDT Emergency [facility] Emergency Dept [address] [place] [address] Douglas Noland MD [address] [place] [address] Low back pain Discharge Disposition: Home/Self Care Social [...] Sign Reading Time Taken Comments Blood Pressure 151/89 10/11/2017 9:00 PM EDT Pulse 88 10/11/2017 9:00 PM EDT Temperature 37 ??C (98.6 ??F) 10/11/2017 7:02 PM EDT Respiratory Rate 18 10/11/2017 9:00 PM EDT Oxygen Saturation 94% 10/11/2017 9:00 PM EDT Inhaled Oxygen Concentration - - Weight - - Height - - Body Mass Index - - documented in this encounter Discharge Instructions * Discharge Instructions* Douglas Noland MD - 10/11/2017 9:09 PM EDT Images from the original note were not included. CT scan showed- 1. ??Colonic diverticulosis without associated inflammation. ?? 2. ??LEFT kidney is absent. There is no CT evidence of right-sided obstructive uropathy. Your labs were otherwise generally unremarkable or normal for you. Please follow up closely with your primary doctor within the next week or preferably in the next 1-2 days if advised to do so here in the ER by your ER doctor. Please take Tylenol or Motrin heat gentle stretching for musculoskeletal pain and otherwise resume your other daily medications. You can go to [email or web address] to see your lab work and imaging results should be available in the next few days. This may be especially helpful for follow up with your primary doctor/specialist or as a reminder if there were incidental findings found on your imaging that may need follow-up over the next months to years. Please Return to the emergency room immediately for new/concerning or worsening symptoms Please read any attached discharge instructions. Back Pain: Care Instructions Your Care Instructions Back pain has many possible causes. It is often related to problems with muscles and ligaments of the back. It may also be related to problems with the nerves, discs, or bones of the back. Moving, lifting, standing, sitting, or sleeping in an awkward way can strain the back. Sometimes you don't notice the injury until later. Arthritis is another common cause of back pain. Although it may hurt a lot, back pain usually improves on its own within several weeks. Most peoplerecover in 12 weeks or less. Using good home treatment and being careful not to stress your back can help you feel better sooner. Follow-up care is a zelaya part of your treatment and safety. Be sure to make and go to all appointments, and call your doctor if you are having problems. It's also a good idea to know your test resultsand keep a list of the medicines you take. How can you care for yourself at home? ?? Sit or lie in positions that are most comfortable and reduce your pain. Try one of these positions when you lie down: ?? Lie on your back with your knees bent and supported by large pillows. ?? Lie on the floor with your legs on the seat of a sofa or chair. ?? Lie on your side with your knees and hips bent and a pillow between your legs. ?? Lie on your stomach if it does not make pain worse. ?? Do not sit up in bed, and avoid soft couches and twisted positions. Bed rest can help relieve pain at first, but it delays healing. Avoid bed rest after the first day of back pain. ?? Change positions every 30 minutes. If you must sit for long periods of time, take breaks from sitting. Get up and walk around, or lie in a comfortable position. ?? Try using a heating pad on a low or medium setting for 15 to 20 minutes every 2 or 3 hours. Try a warm shower in place of one session with the heating pad. ?? You can also try an ice pack for 10 to 15 minutes every 2 to 3 hours. Put a thin cloth between the ice pack and your skin. ?? Take pain medicines exactly as directed. ?? If the doctor gave you a prescription medicine for pain, take it as prescribed. ?? If you are not taking a prescription pain medicine, ask your doctor if you can take an qjpb-wss-rnluatx medicine. ?? Take short walks several times a day. You can start with 5 to 10 minutes, 3 or 4 times a day, and work up to longer walks. Walk on level surfaces and avoid hills and stairs until your back is better. ?? Return to work and other activities as soon as you can. Continued rest without activity is usually not good for your back. ?? To prevent future back pain, do exercises to stretch and strengthen your back and stomach. Learnhow to use good posture, safe lifting techniques, and proper body mechanics. When should you call for help? Call your doctor now or seek immediate medical care if: ? ?? You have new or worsening numbness in your legs. ? ?? You have new or worsening weakness in your legs. (This could make it hard to stand up.) ? ?? You lose control of your bladder or bowels. ?Watch closely for changes in your health, and be sure to contact your doctor if: ? ?? Your pain gets worse. ? ?? You are not getting better after 2 weeks. Where can you learn more? Go to www.[employer]/lgh. Enter I594 in the search box to learn more about Back Pain: Care Instructions. Current as of: May 18, 2017 Content Version: 11.6 ?? [id number] [employer]. Care instructions adapted under license by your healthcare professional. If you have questions about a medical condition or this instruction, always ask your healthcare professional. [employer] disclaims any warranty or liability for your use of this information. Learning About Relief for Back Pain What is back tension and strain? Back strain happens when you overstretch, or pull, a muscle in your back. You may hurt your back inan accident or when you exercise or lift something. Most back pain will get better with rest and time. You can take care of yourself at home to help your back heal. What can you do first to relieve back pain? When you first feel back pain, try these steps: ?? Walk. Take a short walk (10 to 20 minutes) on a level surface (no slopes, hills, or stairs) every 2 to 3 hours. Walk only distances you can manage without pain, especially leg pain. ?? Relax. Find a comfortable position for rest. Some people are comfortable on the floor or a medium-firm bed with a small pillow under their head and another under their knees. Some people prefer tolie on their side with a pillow between their knees. Don't stay in one position for too long. ?? Try heat or ice. Try using a heating pad on a low or medium setting, or take a warm shower, for 15 to 20 minutes every 2 to 3 hours. Or you can buy single- use heat wraps that last up to 8 hours. You can also try an ice pack for 10 to 15 minutes every 2 to 3 hours. You can use an ice pack or a bag of frozen vegetables wrapped in a thin towel. There is not strong evidence that either heat or icewill help, but you can try them to see if they help. You may also want to try switching between heat and cold. ?? Take pain medicine exactly as directed. ?? If the doctor gave you a prescription medicine for pain, take it as prescribed. ?? If you are not taking a prescription pain medicine, ask your doctor if you can take an vmmg-oel-ymspffz medicine. What else can you do? ?? Stretch and exercise. Exercises that increase flexibility may relieve your pain and make it easier for your muscles to keep your spine in a good, neutral position. And don't forget to keep walking. ?? Do self-massage. You can use self-massage to unwind after work or school or to energize yourselfin the morning. You can easily massage your feet, hands, or neck. Self-massage works best if you are in comfortable clothes and are sitting or lying in a comfortable position. Use oil or lotion to massage bare skin. ?? Reduce stress. Back pain can lead to a vicious tribe: Distress about the pain tenses the muscles in your back, which in turn causes more pain. Learn how to relax your mind and your muscles to lower your stress. Where can you learn more? Go to www.[employer]net/lgh. Enter Q517 in the search box to learn more about Learning About Relief for Back Pain. Current as of: May 18, 2017 Content Version: 11.6 ?? [id number] [employer]. Care instructions adapted under license by your healthcare professional. If you have questions about a medical condition or this instruction, always ask your healthcare professional. [employer] disclaims any warranty or liability for your use of this information. documented in this encounter Medications at Time of Discharge amoxicillin (AMOXIL) 250 MG CAPS Take 250 mg by mouth every 8 hours. 02/13/2018 azithromycin (ZITHROMAX) 250 MG tablet Take 500 mg by mouth at bedtime. 02/13/2018 cefUROXime (CEFTIN) 250 MG/5ML SUSR 02/13/2018 clarithromycin (BIAXIN) 250 MG TABS 500 mg every 12 hours . 02/13/2018 doxycycline hyclate (VIBRAMYCIN) 100 MG capsule 02/13/2018 nystatin (MYCOSTATIN) cream 02/13/2018 rifAMPin (RIFADIN) 300 MG CAPS 02/13/2018 documented as of this encounter ED Notes * Maggie Singh RN - 10/11/2017 8:15 PM EDT Pt sitting comfortably in liter. Updated on POC. VSS. * Douglas Noland MD - 10/11/2017 7:57 PM EDT Acuity: 3M=Urgent-Main HISTORY: Chief Complaint Patient presents with ??? Flank Pain HPI patient has a history of single right kidney, he is on multiple antibiotics for Lyme disease, he reports approximately 3-4 days of right flank pain. He has some chronic urinary frequency unchanged no hematuria, no change in bowel habits. He denies fevers chills nausea vomiting diaphoresis chestpain shortness of breath. Pain is moderate, aching, is actually reproducible with palpation in the right paraspinal musculature. There is no midline tenderness, no saddle anesthesia no radiation of the pain or numbness or weakness. 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 No past medical history on file. Past Surgical History: Procedure Laterality Date ??? ENDOSCOPY, ESOPHAGUS ??? HX COLONOSCOPY ??? HX CYST REMOVAL No family history on file. Social History Substance Use Topics ??? Smoking status: Never Smoker ??? Smokeless tobacco: Current User Types: Chew Comment: chewing tobacco 2 cans/week ??? Alcohol use No Problem List Diagnosis ??? Anxiety ??? Asthma ??? Occipital neuralgia of right side ??? Bilateral carpal tunnel syndrome ??? Vasovagal syncope ??? Tubular adenoma of colon. Repeat colonoscopy in APR 2019 ??? BMI 35-39.9 ??? Essential hypertension Review of Systems I have reviewed the nursing notes as well as the social history. Review of Systems both pertinent positive and negative findings of the review of systems, has been thoroughly documented in the HPI (above in the chart) and all other systems are negative. PHYSICAL EXAM: Vital Signs Temperature 98.6 ??F (37 ??C) (10/11/17 1902) Pulse/Heart Rate 88 (10/11/172099) Respiration 18 (10/11/172099) BP 151/89 (10/11/172099) MAP 107 MM HG (10/11/172099) SpO2 94 % (10/11/172099) O2 Device room air (10/11/172099) O2 Therapy Flow Pain Rating 7 (10/11/17 1902) Physical Exam Physical Exam Nursing notes and vital signs reviewed by me. Constitutional: Patient is alert and oriented to person and place. Patient appears well-developed in no acute distress. Head: Normocephalic and atraumatic. ENT: Mucus membranes pink and moist. Eyes: Conjunctiva appear normal. Neck: Normal range of motion. Non-tender. Supple Cardiovascular: Heart sounds normal. Normal rate and regular rhythm. Pulmonary/Chest: Chest non-tender. Breath sounds normal. Abdominal: Soft. Bowel sounds are normal. Abdomin non-tender to palpation. Genitourinary: Back: Normal Inspection. Right paraspinal tenderness/reproducible pain. No midline step-off tenderness or deformity. Upper extremity: Warm and well perfused. Normal range of motion. Nontender to palpation, No edema. ?? Lower extremity: Warm and well perfused. Normal range of motion. Nontender to palpation, No edema Neurological: Patient is alert and oriented to person and place. No obvious neurologic deficits. Skin: Skin is warm and dry. Psychiatric: Patient has a normal mood and affect. EKG RHYTHM: EKG INTERPRETATION: OXYGEN SATURATION INTERPRETATION: Vitals: 10/11/17 19410/11/17199910/11/172099 SpO2: 98% 98% 94% LAB INTERPRETATION: Labs Reviewed COMPREHENSIVE METABOLIC PANEL - Abnormal; Notable for the following: Result Value Glucose (serum) 105 (*) All other components within normal limits Narrative: Collection has been rescheduled by BFLEA at 10/11/2017 19:37. Reason: 8 URINALYSIS POC CBC WITH DIFFERENTIAL - LAB Narrative: Collection has been rescheduled by BFLEA at 10/11/2017 19:37. Reason: 8 LIPASE, SERUM Narrative: Collection has been rescheduled by BFLEA at 10/11/2017 19:37. Reason: 8 EXTRA BLUE TOP TUBE EXTRA GREEN LITHIUM TUBE RADIOLOGY INTERPRETATION: CT ABDOMEN PELVIS WO IV AND WO PO CONTRAST Final Result 1. Colonic diverticulosis without associated inflammation. 2. LEFT kidney is absent. There is no CT evidence of right-sided obstructive uropathy. [facility] exams [facility] by [facility] [...] of medical physicists, technologists and radiologists. Dictating Workstation: [employer] PHOTOGRAPHS: ED COURSE: Procedures MDM Impression- reproducible right flank pain. No red flags for back pain. He clinically analgesics. Hehas no UTI symptoms he is neurologically intact. Taking multiple antibiotics prescribed by neck drug For Lyme disease Labs Interpretation I have reviewed and interpreted those labs, which I have ordered, that have resulted at this time. Radiology Interpretation I have reviewed the interpretation of the radiologist of those radiologic studies, which I have ordered, that have resulted at this time. no Significant laboratory imaging findings- we will treat as musculoskeletal pain Pt to be discharged - I discussed discharge instructions and strict return to ED instructions with pt (and family if they are with the pt), they were instructed to see their PCP in the next 24-48 hours for follow up appointment. Will return if new/concerning symptoms or any concerning change in their condition They were informed of all incidental findings on imaging. The pt/family have verbalized understanding and agreement to this plan. The patients condition at the time of Disposition is Improved. Douglas Noland MD 10/12/17 1416 * Maggie Singh RN - 10/11/2017 7:50 PM EDT Pt ambulated to room [facility]. Pt c/o r flank pain since Tuesday. Has been on multiple Abx for Lymes disease. Only has 1 kidney which is on the R side. States he stopped taking the Abx when the pain started. Denies any N/V/D. Denies any hx of kidney stones. * Marybel Castaneda RN - 10/11/2017 7:00 PM EDT Patient reports a 3-4 day history of R flank pain. Patient is currently being treated for Lyme Disease. Patient reports some urinary frequency but states that this is not new. Patient denies bowel complaints. Patient denies hx of kidney stones. Patient reports that he was only born with 1 kidney (rside). documented in this encounter Plan of Treatment Not on file documented as of this encounter Procedures Procedure Name Priority Date/Time Associated Diagnosis Comments CT ABDOMEN PELVIS WO IV AND WO PO CONTRAST STAT 10/11/2017 8:41 PM EDT CBC WITH DIFFERENTIAL - LAB STAT 10/11/2017 7:44 PM EDT LIPASE, SERUM STAT 10/11/2017 7:44 PM EDT COMPREHENSIVE METABOLIC PANEL STAT 10/11/2017 7:44 PM EDT EXTRA GREEN LITHIUM TUBE STAT 10/11/2017 7:42 PM EDT EXTRA BLUE TOP TUBE STAT 10/11/2017 7 :42 PM EDT URINALYSIS POC STAT 10/11/2017 7:15 PM EDT documented in this encounter Results * CT ABDOMEN PELVIS WO IV AND WO PO CONTRAST (10/11/2017 8:41 PM EDT) Anatomical Region Laterality Modality Abdomen Computed Tomogra phy 10/11/2017 8:34 PM EDT Impressions 10/11/2017 8:48 PM EDT 1. ??Colonic diverticulosis without associated inflammation. 2. ??LEFT kidney is absent. There is no CT evidence of right-sided obstructive uropathy. [facility] exams [facility] [...] medical physicists, technologists and radiologists. Dictating Narrative 10/11/2017 8:[address] ABDOMEN AND PELVIS WITHOUT CONTRAST: HISTORY: 3-4 day history of RIGHT flank pain. Technique: CT of the abdomen and pelvis was performed without intravenous contrast. ??Contiguous axial CT images were obtained. ??Reconstructed coronal and sagittal images were made by the scanner. Findings: The lung bases are partially included and unremarkable. There is respiratory motion artifact present. The unenhanced liver, spleen and pancreas are grossly unremarkable. There is no biliary dilatation. There are no densely calcified gallstones. The adrenal glands are normal in appearance. The LEFT kidney is absent. There is no evidence of hydronephrosis or ureteral dilatation. There is a punctate calcification in the RIGHT kidney which is suspected to be parenchymal and this is noted to be unchanged when compared to CT from March 14, 2016. The abdominal aorta is normal in size. Moderate atherosclerotic calcifications are present. Colonic diverticulosis is present without associated pericolonic inflammation. The unenhanced appendix has a grossly normal CT appearance. Multilevel degenerative changes are noted in the visualized spine. There is a mild lumbar scoliosis, convex to the LEFT. Procedure Note Bruno Miller MD - 10/11/2017 CT ABDOMEN AND PELVIS WITHOUT CONTRAST: HISTORY: 3-4 day history of RIGHT flank pain. Technique: CT of the abdomen and pelvis was performed without intravenouscontrast. Contiguous axial CT images were obtained. Reconstructedcoronal and sagittal images were made by the scanner. Findings: The lung bases are partially included and unremarkable. There isrespiratory motion artifact present. The unenhanced liver, spleen and pancreas are grossly unremarkable. Thereis no biliary dilatation. There are no densely calcified gallstones. The adrenal glands are normal in appearance. The LEFT kidney is absent.There is no evidence of hydronephrosis or ureteral dilatation. There is apunctate calcification in the RIGHT kidney which is suspected to beparenchymal and this is noted to be unchanged when compared to CT fromMarch 14, 2016. The abdominal aorta is normal in size. Moderateatherosclerotic calcifications are present. Colonic diverticulosis is present without associated pericolonicinflammation. The unenhanced appendix has a grossly normal CT appearance.Multilevel degenerative changes are noted in the visualized spine. Thereis a mild lumbar scoliosis, convex to the LEFT. IMPRESSION: 1. Colonic diverticulosis without associated inflammation. 2. LEFT kidney is absent. There is no CT evidence of right-sidedobstructive uropathy. All exams performed by [facility] utilize one or more of the following doseoptimization techniques:automated exposure control, adjustment of the mAand/or kV according to patient size and/or the use of iterativereconstruction techniques. Audits are completed at the protocol, deviceand patient level to ensure compliance. All protocols (per device) areperiodically reviewed by a team of medical physicists, technologists andradiologists. Dictating us Douglas Noland MD [facility] CT ORDERABLES Fi nal Result * Lipase, Serum (10/11/2017 7:44 PM EDT) Pathologist [facility] Lipase 44 11 - 82 U/L 10/11/2017 8:28 PM EDT [facility] 10/11/2017 7:44 PM EDT 10/11/2017 7:49 PM EDT [facility] LABORATORY - 10/11/2017 8:28 PM EDT Collection has been rescheduled by BFLEA at 10/11/2017 19:37. Reason: 8 us Douglas Noland MD CHEMISTRY ORDERABLES Fi nal Result [facility] [address] [place] [address] * (ABNORMAL) Comprehensive Metabolic Panel (CMP) (10/11/2017 7:44 PM EDT) Glucose (serum) 105(H) 65 - 100 mg/dL 10/11/2017 8:28 PM EDT [facility] Blood Urea Nitrogen 15 8 - 22 mg/dL 10/11/2017 8:28 PM EDT [facility] Sodium 138 135 - 145 mmol/L 10/11/2017 8:28 PM EDT [facility] Potassium 4.1 3.4 - 5.3 mmol/L 10/11/2017 8:28 PM EDT [facility] Chloride 103 98 - 107 mmol/L 10/11/2017 8:28 PM EDT [facility] CO2 Venous 27.0 21.0 - 31.0 mmol/L 10/11/2017 8:28 PM EDT [facility] Anion Gap 8 5 - 15 mmol/L 10/11/2017 8:28 PM EDT [facility] Creatinine 0.9 0.7 - 1.2 mg/dL 10/11/2017 8:28 PM EDT [facility] BUN/Creatinine Ratio 17 10 - 20 Ratio 10/11/2017 8:28 PM EDT [facility] Osmolality Calculation (serum) 277 275 - 300 mosm/kg H2O 10/11/2017 8:28 PM EDT [facility] Calcium 9.6 8.6 - 10.3 mg/dL 10/11/2017 8:28 PM EDT [facility] Protein Total Serum 6.9 5.6 - 7.9 g/dL 10/11/2017 8:28 PM EDT [facility] Albumin 4.5 3.5 - 4.9 g/dL 10/11/2017 8:28 PM EDT [facility] Comment:Result reflects use of Bromocresol Green Methodology. Bilirubin Total 0.4 0.2 - 1.2 mg/dL 10/11/2017 8:28 PM EDT [facility] Alkaline Phosphatase 51 34 - 104 U/L 10/11/2017 8:28 PM EDT [facility] AST (SGOT) 24 13 - 40 U/L 10/11/2017 8:28 PM EDT [facility] ALT (SGPT) 41 7 - 52 U/L 10/11/2017 8:28 PM EDT [facility] A/G Ratio 1.9 1.0 - 2.0 Ratio 10/11/2017 8:28 PM EDT [facility] Globulin 2.4 gm/dL 10/11/2017 8:28 PM EDT [facility] GFR >60 mL/min/1.7 3 sqm 10/11/2017 8:28 PM EDT [facility] Comment: Notes for GFR: 1. ??Multiply result by 1.21 if patient is black/ ?[place]. 2. ??Chronic kidney disease: <60 mL/min/1.73 sq.m. ?Renal Failure: <15 mL/min/1.73 sq.m. Calcium, Corrected(Adj/Ca lc)Total 9.2 mg/dL 10/11/2017 8:28 PM EDT [facility] 10/11/2017 7:44 PM EDT 10/11/2017 7:49 PM EDT Narrative [facility] - 10/11/2017 8:28 PM EDT Collection has been rescheduled by DOMINIC at 10/11/2017 19:37. Reason: 8 us Douglas Noland MD CHEMISTRY ORDERABLES Fi nal Result [facility] [address] [place] [address] * CBC with Differential (10/11/2017 7:44 PM EDT) WBC Count 6.6 4.8 - 10.8 10*3/uL 10/11/2017 7:59 PM EDT [facility] RBC Count 5.23 4.60 - 6.20 10*6/uL 10/11/2017 7:59 PM EDT [facility] Hgb 16.0 14.0 - 18.0 g/dL 10/11/2017 7:59 PM EDT [facility] Hct 44.6 42.0 - 52.0 % 10/11/2017 7:59 PM EDT [facility] MCV 85.3 80.0 - 100.0 fL 10/11/2017 7:59 PM EDT [facility] MCH 30.6 27.0 - 33.0 pg 10/11/2017 7:59 PM EDT [facility] MCHC 35.9 32.0 - 36.0 g/dL 10/11/2017 7:59 PM EDT [facility] Platelet Count 198 150 - 450 10*3/uL 10/11/2017 7:59 PM EDT [facility] RDW 13.7 12.2 - 14.6 % 10/11/2017 7:59 PM EDT [facility] Neutrophils 50.3 45.0 - 75.0 % 10/11/2017 7:59 PM EDT [facility] Lymphocytes 36.5 19.0 - 46.0 % 10/11/2017 7:59 PM EDT [facility] Monocytes 10.6 2.0 - 12.0 % 10/11/2017 7:59 PM EDT [facility] Eosinophils 2.3 0.0 - 4.0 % 10/11/2017 7:59 PM EDT [facility] Basophils 0.3 0.0 - 1.5 % 10/11/2017 7:59 PM EDT [facility] Immature Granulocytes 0.2 0 - 2 % 10/11/2017 7:59 PM EDT [facility] Neutrophils Absolute 3.32 2.20 - 8.00 10*3/uL 10/11/2017 7:59 PM EDT [facility] Lymphocytes Absolute 2.41 0.90 - 5.00 10*3/uL 10/11/2017 7:59 PM EDT [facility] [facility] Monocytes Absolute 0.70 0.20 - 0.80 10*3/uL 10/11/2017 7:59 PM EDT [facility] Eosinophils Absolute 0.15 0.00 - 0.40 10*3/uL 10/11/2017 7:59 PM EDT [facility] Basophils Absolute 0.02 0.00 - 0.40 10*3/uL 10/11/2017 7:59 PM EDT [facility] Immature Granulocyte Absolute 0.01 10*3/uL 10/11/2017 7:59 PM EDT [facility] 10/11/2017 7:44 PM EDT 10/11/2017 7:51 PM EDT Narrative [facility] - 10/11/2017 7:59 PM EDT Collection has been rescheduled by BFLEA at 10/11/2017 19:37. Reason: 8 us Douglas Noland MD HEMATOLOGY ORDERABLES F inal Result [facility] [address] [place] [address] * Extra Green [place] Tube (10/11/2017 7:42 PM EDT) Hold Green Drawn 10/11/2017 7:42 PM EDT [facility] Douglas Noland MD CHEMISTRY ORDERABLES Fi nal Result Performing Organization Address City/[facility]/ZIP Co de Phone Number [facility] [address] [place] [address] * Extra Blue Top Tube - Lab (10/11/2017 7:42 PM EDT) Hold Blue Drawn 10/11/2017 7:42 PM EDT [facility] Douglas Noland MD HEMATOLOGY ORDERABLES F inal Result Performing Organization Address [facility] Co de Phone Number [facility] [address] [place] [address] * Urinalysis POCT (10/11/2017 7:15 PM EDT) Urine Color YELLOW YELLOW 10/11/2017 7:35 PM EDT [facility] Urine Appearance CLEAR Clear 10/11/2017 7:35 PM EDT [facility] Urine Specific [place] 1.010 1.005 - 1.030 10/11/2017 7:35 PM EDT [facility] Urine Glucose Qual NEGATIVE Negative mg/dL 10/11/2017 7:35 PM EDT [facility] Urine Bilirubin NEGATIVE Negative 8 7:35 PM EDT [facility] Urine Ketone NEGATIVE Negative mg/dL 10/11/2017 7:35 PM EDT [facility] Urine Blood NEGATIVE Negative 10/11/2017 7:35 PM EDT [facility] Urine pH 6.5 [pH] 10/11/2017 7:35 PM EDT [facility] Urine Protein -Dipstick NEGATIVE Negative mg/dL 10/11/2017 7:35 PM EDT [facility] Urine Urobilinogen 0.2 0.2 - 1.0 mg/dL 10/11/2017 7:35 PM EDT [facility] Urine Nitrite NEGATIVE Negative 10/11/2017 7:35 PM EDT [facility] Urine Leukocyte Esterase NEGATIVE Negative 10/11/2017 7:35 PM EDT [facility] Urine Microscopic Not Indicated Not Indicated 10/11/2017 7:35 PM EDT [facility] Urine Source VOIDED 10/11/2017 7:35 PM EDT [facility] 10/11/2017 7:15 PM EDT 10/11/2017 7:15 PM EDT Douglas Noland MD URINE ORDERABLES Final Result Performing Organization Address City/State/ZIP Co md Phone Number [facility] [address] [facility] [place] [phone] documented in this encounter Visit Diagnoses Diagnosis Acute right-sided low back pain without sciatica- Primary documented in this encounter Care Teams Hazmat Technician Relationship Specialty Start Date End Date Sal Wright DO PCP - General 08/28/12 04/11/18 Kilo Wang MD Consulting Physician Neurology 08/30/16 12/01/21 Juan Haddad MD [address] [facility] [place] [address] Otolaryngology 09/23/17 documented as of this encounter
--- OUTSIDE RECORDS SUMMARY | 2024-06-24 04:39 | XMS_ITS | Encounter Summary ---
Author Organization [facility] Address [address] [facility] [place] [address] Care Team Providers Care Sas Developer Analyst Name Role Phone Sal Wright DO Primary Care Provider [phone] Kilo Wang MD Unavailable [phone] Juan Haddad MD Unavailable [phone] Reason for Visit * Auth/Cert Specialty Diagnoses / Procedures Referred By Donald carvajal Referred To Contact Diagnoses Right carpal tunnel syndrome Right carpal tunnel syndrome Procedures NC WRIST ARTHROSCOP,RELEASE XVERS LIG DECOMPRESSION NERVE MEDIAN CARPAL TUNNEL RELEASE: Carpal Tunnel Release Referral ID Status Reason Start Date Expiration Date Visits Re quested Visits Authorized [id number] 1 1 Encounter Details Date Type Department Care Team (Latest Contact Info) Description 03/02/2018 6:24 AM EDT - 03/02/2018 9:37 AM EDT Hospital Encounter [facility] [address] [place] [address] Devante Portillo, DO [address] [place] [address] Bilateral carpal tunnel syndrome Discharge Disposition: Home/Self [...] your surgery please call your surgeon at [phone] If any questions or concerns about your hospital visit and care, please call the Ortho Center at [phone] M-F 8am until 6:30pm IF TAKING PRESCRIPTION [...] period. * Discharge Instr - Other Orders* Kiarra Johnson Pa-C - 03/01/2018 8:[address] Portillo's [...] cyst excision, carpal tunnel release), you maytake czsd-xax-khlnpgn acetaminophen (Tylenol) on a regular basis: acetaminophen (Tylenol) 1000mg every 8 hours In addition to acetaminophen, if it is safe for you to take antiinflammatories (no history of GI ulcers/bleeding, no use of blood thinners), you may also add an zkex-ast-wjvxeej anti-inflammatory. Please choose one of the following: [...] call us before your scheduled appointment. [address] * [place] [address] * * fax [phone] * [place] [address] * * fax [phone] [facility] * [facility] [address] * [place] [address] * * fax [phone] [facility] * [place] [address] * * fax [phone] Dr. Portillo's Post-Op Medication Instructions ?? After [...] ?? Narcotic pain medications such as oxycodone, [place]/Vicodin (hydrocodone/acetaminophen) and codeine are all narcotics. You [...] the narcotics. ?? Tylenol is the recommended vgib-ayc-iuyouzg medication after orthopedic surgery. However, if this [...] with periodic blood tests (PT/INR). Avoid using mxph-roz-xpdgtvj anti-inflammatories while taking blood thinners. ?? If you have any questions about your medications, please contact us. If we cannot answer your questions, we may refer you to your primary care physician or a pharmacist. [address] * [place] [address] * * fax [phone] * [place] [address] * * fax [phone] * [address] * [place] [address] * * fax [phone] [facility] [place] [address] * * fax [phone] documented in this encounter Medications at Time [...] Carpal Tunnel Release Surgeon: Devante Portillo DO Administrative Secretary: none Anesthesia: Local (WALANT) Blood Loss: Minimal [...] the procedure well and was moved to [facility] in satisfactory condition. Intraoperative Findings: The median [...] on Lisa 03/02/18 at 0905, F) Post-Op/Post-Procedure NaCl 0.9 % flush 10 mL 10 [...] 0837 (New Bag - Prov ider: Daphney Isaac RN) HYDROcodone-acetaminophen (NORCO) 5-325 MG per tablet 1-2 tablet 1-2 tablet, Oral, EVERY 4 HOURS PRN, Moderate Pain (4-7), Severe Pain (8-10), Starting on Lisa 03/02/18 at 0905, F) Post-Op/Post-Procedure Lidocaine-EPINEPHrine 1.5 %-[id number] injection (CANCELED) onestep once prn, Starting on [...] Pre-Op/Pre-Procedure documented in this encounter Care Teams Sas Developer Analyst Relationship Specialty Start Date End Date Adriana Sal DO Brad PCP - General 08/28/12 04/11/18 Kilo Wang MD Consulting Physician Neurology 08/30/16 12/01/21 Juan Haddad MD [address] [place] [address] Otolaryngology 09/23/17 documented as of this encounter
--- OUTSIDE RECORDS SUMMARY | 2024-06-24 04:39 | XMS_ITS | Encounter Summary ---
Author Organization [facility] Address [address] [facility] [place] [address] Care Team Providers Care Drawer In Hand Name Role Phone Sal Wright DO Primary Care Provider [phone] Kilo Wang MD Unavailable [phone] Juan Haddad MD Unavailable [phone] Encounter Details Date Type Department Care Team (Latest Contact Info) Description 02/17/2018 6:44 AM EDT - 02/17/2018 11:59 PM EDT Hospital Encounter [address] [phone] Devante Portillo, DO [address] [place] [address] Carpal tunnel syndrome, bilateral upper limbs Discharge Disposition: Home/Self Care Social History Tobacco [...] Daily Amount: 12 tablets 10 tablet 03/02/2018 10/13/201 8 aspirin 81 MG chewabletab Take 81 mg by mouth daily. 8 Cefuroxime Axetil (CEFTIN ORAL) Take by mouth. 01 8 Doxycycline Monohydrate (VIBRAMYCIN ORAL) Take by mouth once a week (pt states unknown dose weekly for Lyme Disease in gradually increasing dose for total 20 weeks as prescribed by Michelle VILLARREAL Jolo). 8 oxyCODONE (ROXICODONE) 5 MG immediate releasetab Take 1-2 tablets by mouth every 4 hours as needed for Pain. Max Daily Amount: 60 mg 30 tablet 03/23/2018 8 documented as of this encounter Plan of Treatment Not on file documented as of this encounter Procedures Procedure Name Priority Date/Time Associated Diagnosis Comments EKG 12-LEAD Routine 02/17/2018 6:50 AM EDT Carpal tunnel syndrome, bilateral Lesion of left ulnar nerve Preop examination documented in this encounter Results * EKG 12-LEAD (02/17/2018 6:50 AM EDT) Ventricular Rate 86 BPM [facility]-EKG Atrial Rate 86 BPM [facility] P-R Interval 184 ms [facility]-EKG QRS Duration 82 ms [facility]-EKG Q-T Interval 362 ms [facility]-EKG QTC Calculation 433 ms [facility] GENER[facility]-EKG Calculated P [place] 48 degrees [facility]-EKG Calculated R [place] 67 degrees [facility] Calculated T [place] 25 degrees [facility] 02/17/2018 6:50 AM EDT 02/17/2018 11:37 AM EDT Narrative [facility] - 02/17/2018 11:37 AM EDT Normal sinus rhythm Left atrial enlargement Borderline ECG When compared with ECG of 07-APR-2017 10:54, No significant change was found Confirmed by Anant Aranda ([id number]) on 02/17/2018 11:37:53 AM Devante Portillo DO ECG ORDERABLES Final Resul t [facility] [address] [facility] [place] [address] documented in this encounter Visit Diagnoses Diagnosis Carpal tunnel syndrome, bilateral Carpal tunnel syndrome Lesion of left ulnar nerve Lesion of ulnar nerve Preop examination Preoperative examination, unspecified documented in this encounter Care Teams Drawer In Hand Relationship Specialty Start Date End Date Sal Wright DO PCP - General 08/28/12 04/11/18 Kilo Wang MD Consulting Physician Neurology 08/30/16 12/01/21 Juan Haddad MD [address] [facility] [place] [address] Otolaryngology 09/23/17 documented as of this encounter
--- OUTSIDE RECORDS SUMMARY | 2024-06-24 04:41 | XMS_ITS | Clinical Summary ---
Author Organization [facility] Address [address] [place] [address] Care Team Providers Care Paper Spooler Name Role Phone Unavailable Primary Care Provider Unavailabl e Social History Tobacco Use Types Packs/Day Years Used Date Smoking Tobacco: Never Assessed Sex and Gender Information Value Date Recorded Sex Assigned at Not on file Legal Sex Male 11:52 AM EST Gender Identity Not on file Sexual Orientation Not on file Plan of Treatment Not on file
--- OUTSIDE RECORDS SUMMARY | 2024-06-24 04:41 | XMS_ITS | Encounter Summary ---
[facility] Address [address] [place] [address] Care Team Providers Care Electricity Trader Name Role Phone Unavailable Primary Care Provider Unavailabl e Encounter Details Date Type Department Care Team (Late st Contact Info) Description 01/01/2018 Historical Results [place] Historical [address] [facility] [place] [address] Carter Stephens MD [address] [place] [address] Social History Tobacco Use Types Packs/Day Years Used Date Smoking Tobacco: Never Assessed Sex and Gender Information Value Date Recorded Sex Assigned at Not on file Legal Sex Male 11:52 AM EST Gender Identity Not on file Sexual Orientation Not on file documented as of this encounter H&P Notes * Carter Stephens MD - 01/01/2018 8:44 PM EDT Patient: CARTER GOMES Age: 52 years Sex: Male : 1965 Associated Diagnoses: History of Lyme disease Author: CARTER STEPHENS MD Basic Information Time seen: Initial Time Seen Time Initially Seen: 12/31/2017 16:00 by CARTER STEPHENS MD . Arrival mode: Walking. Additional information: Chief Complaint from Nursing Triage Note : Chief Complaint 12/31/2017 14:58 EDT Chief Complaint Pt compalining of numbness in the temporal aspect of head on either side. Blurred vision. and LUQ abdominal pain, ongoign X several months . History of Present Illness The patient presents with 52-year-old male complaining of numbness on his occipital scalp. Patient states he was diagnosed with Lyme disease a long time ago, initially had numbness in his scalp. The patient was placed on the multitude of medications by a Lyme disease specialist and numbness resolved. Patient was seen by our infectious disease doctor, Dr. Lomeli and was taken off all of his antibiotics. The patient states that this week but numbness in his scalp return and he wanted to know if he should restart antibiotics. The patient denies fever, cough, chest pain, shortness of breath, abdominal pain, nausea, vomiting, diarrhea, dysuria him a numbness/tingling/weaknesses extremities, vision change.. The onset was This week. The course/duration of symptoms is constant. Location: [place]. The character of symptoms is numbness. The degree at onset was moderate. The degree at present is moderate. Therapy today: none. Associated symptoms: none. Review of Systems Constitutional symptoms: No fever, Skin symptoms: No jaundice, Eye symptoms: Negative except as documented in HPI. ENMT symptoms: Negative except as documented in HPI. Respiratory symptoms: No shortness of breath, no cough, no stridor. Cardiovascular symptoms: No cardiac related symptomology, no chest pain, no syncope, no peripheral edema. Gastrointestinal symptoms: No abdominal pain, no nausea, no vomiting, no diarrhea. Genitourinary symptoms: No dysuria, Musculoskeletal symptoms: No back pain, Neurologic symptoms: Numbness, no recent seizure activitiy, no headache, no altered level of consciousness, no tingling, no weakness. Hematologic/Lymphatic symptoms: Bleeding tendency negative, Additional review of systems information: All other systems reviewed and otherwise negative. Health Status Allergies: Allergic Reactions (Selected) No Known Medication Allergies, allergies reviewed. Medications: medications reviewed . No qualifying data available.. Past Medical/ Family/ Social History Procedure history: Include procedure history No active procedure history items have been selected or recorded., Reviewed as documented in chart. Family history: No family history items have been selected or recorded., Reviewed as documented in chart. Social history: Social & Psychosocial Habits Alcohol 12/08/2017 Use: Current Type: Liquor Frequency: 1-2 times per week Substance Abuse 12/08/2017 Use: Never IV drug use: No Tobacco 12/08/2017 Tobacco use status 30 days prior to admission Smokeless tobacco product Tobacco Use: Current every day smoker Type: Oral Comment: patient uses approximately one quarter can a day - 12/08/2017 22:50 - AVERY LIZAMA MD , Reviewed as documented in chart. Problem list: Lyme disease. Physical Examination Vital Signs Vital Signs 12/31/2017 14:58 EDT ED Temperature 97.9 DegF Temperature Method Oral Respiratory Rate 18 br/min ED Pulse Rate 93 bpm Systolic Blood Pressure 138 mmHg HI Diastolic Blood Pressure 94 mmHg HI Mean Arterial Pressure, Cuff 109 mmHg . Per nurse's notes. Measurements 12/31/2017 14:58 EDT Patient Weight 106.593 kg [place] Body Weight Calculated 77.6 kg Patient Height 182.88 cm . Basic Oxygen Information 12/31/2017 14:58 EDT SpO2 100 % . General: Alert, no acute distress. Skin: Warm, dry, pink, intact. Head: Normocephalic, atraumatic. Neck: Supple, trachea midline, no tenderness. Eye: Pupils are equal, round and reactive to light, extraocular movements are intact, normal conjunctiva. Ears, nose, mouth and throat: Oral mucosa moist, no pharyngeal erythema or exudate. Cardiovascular: Regular rate and rhythm, No murmur, Normal peripheral perfusion, No edema. Respiratory: Lungs are clear to auscultation, respirations are non-labored, breath sounds are equal. Chest wall: No deformity. Back: Nontender. Musculoskeletal: Normal ROM, normal strength. Gastrointestinal: Soft, Nontender, Non distended, Normal bowel sounds. Genitourinary: Exam deferred. Neurological: Alert and oriented to person, place, time, and situation, No focal neurological deficit observed, CN II-XII intact, normal sensory observed, normal motor observed, normal speech observed. Psychiatric: Cooperative, appropriate mood & affect. Reexamination/ Reevaluation Vital signs Basic Oxygen Information 12/31/2017 14:58 EDT SpO2 100 % Impression and Plan Diagnosis History of Lyme disease ([id number] Z86.19, Discharge, Emergency medicine, Medical) Plan Condition: Improved. Disposition: Discharged: Time 12/31/2017 16:27:00, to home. Patient was given the following educational materials: Lyme Disease, Lyme Disease. Follow up with: MAYNOR FERMIN Within 1 to 2 days; LEATHA ARTHUR Within 1 to 2 days Return to the emergency department immediately for worsening symptoms, fever, numbness/tingling/weakness in her extremities, vision change.. Counseled: Patient, Regarding diagnosis, Regarding treatment plan, Patient indicated understanding of instructions. Orders: Discharge Order(12/31/2017 16:29:00 EDT, to Home/Self Care). Electronically Signed on 01/01/2018 20:44 EDT CARTER STEPHENS MD documented in this encounter Plan of Treatment Not on file documented as of this encounter Visit Diagnoses Not on filedocumented in this encounter
--- OUTSIDE RECORDS SUMMARY | 2024-06-24 04:41 | XMS_ITS | Encounter Summary ---
Author Organization [facility] Address [address] [place] [address] Care Team Providers Care Shuttle Buggy Operator Name Role Phone Unavailable Primary Care Provider Unavailabl e Encounter Details Date Type Department Care Team (Late st Contact Info) Description 12/08/2017 Historical Results Judy Historical [address] [facility] [place] [address] Avery Lizama MD [address] [place] [address] Social History Tobacco Use Types Packs/Day Years Used Date Smoking Tobacco: Never Assessed Sex and Gender Information Value Date Recorded Sex Assigned at Not on file Legal Sex Male 11:52 AM EST Gender Identity Not on file Sexual Orientation Not on file documented as of this encounter H&P Notes * Avery Lizama MD - 12/08/2017 10:57 PM EDT Patient: CARTER GOMES Age: 52 years Sex: Male : 1965 Associated Diagnoses: Acute anxiety Author: AVERY LIZAMA MD Basic Information Time seen: Initial Time Seen Time Initially Seen: 12/08/2017 20:24 by AVERY LIZAMA MD . History source: Patient. History limitation: None. Additional information: Chief Complaint from Nursing Triage Note : Chief Complaint 12/08/2017 20:04 EDT Chief Complaint pt states that he is feeling like he is shaking inside, told that he has lyme disease and has an appointment with ID but not unitl the 03 of January. Feeling nauseated . History of Present Illness 52-year-old male with no past medical history who is currently on rifampin, Biaxin, amoxicillin, and doxycycline for management of Lyme disease and BARTONELLA. Patient presents with avague spectrum of symptoms including chest pain, shortness of breath, and shakiness. Questionable nausea. Patient describes greater than 1 month of intermittent symptoms that worsened over the last 2 weeks. Evaluated by PCP with no intervention. Patient scheduled to see infectious disease doctor on 01/03. No treatments prior to arrival. Patient denies any fevers, back pain, dysuria, abdominal pain, vomiting, or lower some edema. Review of Systems Constitutional symptoms: Negative except as documented in HPI, No fever, Skin symptoms: Negative except as documented in HPI, No jaundice, Eye symptoms: Negative except as documented in HPI. ENMT symptoms: Negative except as documented in HPI. Respiratory symptoms: Shortness of breath. Cardiovascular symptoms: Chest pain, No cardiac related symptomology. Gastrointestinal symptoms: Nausea. Genitourinary symptoms: Negative except as documented in HPI. Musculoskeletal symptoms: Negative except as documented in HPI. Neurologic symptoms: Negative except as documented in HPI, no recent seizure activitiy. Psychiatric symptoms: Negative except as documented in HPI. Endocrine symptoms: Negative except as documented in HPI. Hematologic/Lymphatic symptoms: Negative except as documented in HPI, Bleeding tendency negative, Allergy/immunologic symptoms: Negative except as documented in HPI. Additional review of systems information: All other systems reviewed and otherwise negative. Health Status Allergies: Allergic Reactions (Selected) No Known Medication Allergies, allergies reviewed, allergies reviewed. Medications: medications reviewed , medications reviewed . Past Medical/ Family/ Social History Procedure history: Negative. Family history: No family history items have [...] Reviewed as documented in chart. Problem list: All Problems No Chronic Problems / NKP. Physical Examination Vital Signs Vital Signs 12/08/2017 22:06 EDT Heart Rate Monitored 83 bpm Respiratory Rate 22 br/min HI Systolic Blood Pressure 146 mmHg HI Diastolic Blood Pressure 129 mmHg >HHI Mean Arterial Pressure, Cuff 135 mmHg 12/08/2017 20:04 EDT ED Temperature 99.7 DegF HI Temperature Method Oral Respiratory Rate 18 br/min ED Pulse Rate 89 bpm ED Pulse Method Peripheral Pulse Systolic Blood Pressure 155 mmHg HI Diastolic Blood Pressure 105 mmHg HI Mean Arterial Pressure, Cuff 122 mmHg . Per nurse's notes. Measurements 12/08/2017 20:04 EDT Patient Weight 105.232 kg [place] Body Weight Calculated 77.6 kg Patient Height 182.88 cm Height Method Stated Height Weight Method Stated Weight . Basic Oxygen Information 12/08/2017 22:06 EDT Oxygen Therapy Room air SpO2 94 % 12/08/2017 20:04 EDT Oxygen Therapy Room air SpO2 100 % . General: Alert. Skin: Warm, dry. Head: Normocephalic. Neck: Supple, trachea midline, no tenderness, no JVD, no carotid bruit. Eye: Pupils are equal, round and reactive to light, extraocular movements are intact, normal conjunctiva, vision grossly normal. Ears, nose, mouth and throat: Tympanic membranes clear, oral mucosa moist, no pharyngeal erythema or exudate. Cardiovascular: Regular rate and rhythm, No murmur, Normal peripheral perfusion, No edema. Respiratory: Lungs are clear to auscultation, respirations are non-labored, breath sounds are equal, Symmetrical chest wall expansion. Chest wall: No tenderness, No deformity. Back: Nontender, Normal range of motion, Normal alignment, no step-offs. Musculoskeletal: Normal ROM, normal strength, no tenderness, no swelling, no deformity. Gastrointestinal: Soft, Nontender, Non distended, Normal bowel sounds, No organomegaly. Genitourinary: Exam deferred. Neurological: Alert and oriented to person, place, time, and situation, No focal neurological deficit observed, CN II-XII intact, normal sensory observed, normal motor observed, normal speech observed, normal coordination observed. Lymphatics: No lymphadenopathy. Psychiatric: Cooperative, appropriate mood & affect, normal judgment. Medical Decision Making Electrocardiogram: Time 12/08/2017 21:44:00, rate 82, normal sinus rhythm, No ST-T changes, no ectopy, normal AL & QRS intervals. Results review: Lab results : Lab View 12/08/2017 21:36 EDT ISTAT HCT DM 45 % ISTAT Sodium DM 142 mmol/L ISTAT Potassium DM 4.0 mmol/L IS Chloride DM 103 mmol/L ISTAT CO2 DM 27 mmol/L IS AG Calc 17 mmol/L ISTAT Glucose DM 97 mg/dL ISTAT BUN DM 16 mg/dL ISTAT Creatinine DM 1.0 mg/dL ISTAT Calcium Ionized DM 4.8 mg/dL ISTAT Hgb Calc 15.3 g/dL 12/08/2017 21:34 EDT ISTAT cTroponin I DM 0.02 ng/mL 12/08/2017 20:52 EDT WBC 6.8 x10^3/mcL RBC 5.29 x10^6/mcL Hgb 16.2 g/dL HCT 46.5 % MCH 30.6 pg MCHC 34.8 g/dL MCV 87.9 fL Plt Cnt 174 x10^3/mcL MPV 8.3 fL RDW 13.8 % Neutrophils% Auto 56.3 % Lymphocytes% Auto 28.2 % Monocytes% Auto 12.3 % HI Basophils% Auto 0.5 % Eosinophils% Auto 2.7 % Neutrophils# Auto 3.8 x10^3/mcL Lymphocytes# Auto 1.9 x10^3/mcL Monocytes# Auto 0.8 x10^3/mcL Basophils# Auto 0.0 x10^3/mcL Eos# Auto 0.2 x10^3/mcL Ur Color YELLOW Ur Appearance Clear Ur Glucose NEGATIVE Ur Bili NEGATIVE Ur Ketone TRACE Ur Specific Jamison 1.020 Ur Blood NEGATIVE Ur pH 6.5 Ur Protein NEGATIVE Ur Urobilinogen 0.2 Ur Nitrite NEGATIVE Ur Leukocyte Esterase NEGATIVE Dipstick Type? Auto Reflex Microscopic Type? Not Reqd Reflex Urine Culture? No Sodium 138 mmol/L Potassium 3.8 mmol/L Chloride 105 mmol/L Carbon Dioxide 26 mmol/L BUN 16 mg/dL Creatinine 1.08 mg/dL eGFR >60 mL/min/1.73 m2 eGFR Non >60 mL/min/1.73 m2 Glucose 97 mg/dL Calcium 8.8 mg/dL LOW Anion Gap 11 mmol/L BUN/Crea Ratio 15 ratio Albumin 4.3 gm/dL Alkaline Phosphatase 57 unit/L ALT 36 unit/L AST 24 unit/L Bili Total 0.6 mg/dL Prot Total 7.1 gm/dL Globulin 2.8 gm/dL Albumin/Globulin Ratio 1.5 ratio Lipase 33.0 unit/L . Chest X-Ray: * Final Report * Reason For Exam Chest pain REPORT INDICATION: Chest pain. TECHNIQUE: Frontal and lateral chest. COMPARISON: None Available. FINDINGS: Cardiac silhouette is normal in size. No pulmonary edema, pleural effusion, pneumothorax, or consolidation. Impression: No radiographic evidence of acute cardiopulmonary process. Signed by Yadiel Hameed MD Signature Line Final Dictated by: YADIEL HAMEED MD, MD Dictated DT/TM: 12/08/2017 09:50 pm EDT Signed by: YADIEL HAMEED MD, MD Signed (Electronic Signature): 12/08/2017 09:50 pm EDT URL This document has an image Result type: XR Chest [address] Result date: December 08, 2017 21:11 EDT Result status: Auth (Verified) Result title: XR Chest [address] Performed by: YADIEL HAMEED MD, MD on December 08, 2017 21:50 EDT Verified by: YADIEL HAMEED MD, MD on December 08, 2017 21:50 EDT Encounter info: [id number], [place]ER[place] Kim, Emergency Outpatient, 12/08/2017 - . Reexamination/ Reevaluation Vital signs results included from flowsheet : Vital Signs 12/08/2017 20:04 EDT ED Temperature 99.7 DegF HI Temperature Method Oral Respiratory Rate 18 br/min ED Pulse Rate 89 bpm ED Pulse Method Peripheral Pulse Systolic Blood Pressure 155 mmHg HI Diastolic Blood Pressure 105 mmHg HI Mean Arterial Pressure, Cuff 122 mmHg Basic Oxygen Information 12/08/2017 22:06 EDT Oxygen Therapy Room air SpO2 94 % 12/08/2017 20:04 EDT Oxygen Therapy Room air SpO2 100 % Course: resolved. Assessment: exam improved. Notes: 52-year-old male with a very unusual presentation who is currently being managed for Lyme and Bartonella with 4 antibiotics with no apparent symptoms. Patient presents with a vague spectrum of symptoms including chest pain, nausea, shakiness , diffuse paresthesias, shortness of breath. Patient describes greater than 1 month of intermittent symptoms that worsened over the last week. No other associated symptoms. No treatments prior to arrival. Evaluated by PCP with no intervention. Scheduled to see ID. on 01/03.vital signs with temp at 99.7. Mildly elevated blood pressure. Nonfocal physical exam, but patient is quite anxious. EKG with no acute findings. Labs within normal limits including CBC and troponin. Chest x-ray negative. Symptoms resolved with normal saline bolus and Ativan. Suspect side effects from over antibiosis, but I will treat for anxiety. Diagnosis and management discussed with patient understood and is comfortable with discharge plan. DX: Acute anxiety Rx: Ativan 3 times a day when necessary for anxiety. Diagnosis and management discussed with patient who understood and is comfortable with discharge plan.. Impression and Plan Diagnosis Acute anxiety (LFR39-CO F41.9, Discharge, Emergency medicine, Medical) Plan Condition: Improved, Stable. Disposition: Discharged: Time 12/08/2017 22:55:00, to home. Prescriptions: Prescriptions Pharmacy: Ativan 2 mg oral tablet (Prescribe): 1 tab(s), Oral, TID, for 5 day(s), PRN: for anxiety, 15 tab(s), 0 Refill(s). Patient was given the following educational materials: Panic Attacks, Yzjh-[id number], Panic Attacks, [id number]-Tlqf. Limitations: Limited activity. Follow up with: YADIEL FERMIN Within 1 week Ativan as directed for anxiety symptoms including numbness and shakiness. Extra water. Follow-up with primary doctor symptoms persist greater than 1 week. Return to ER if you have fever, vomiting, abdominal pain, or blackouts.. Counseled: Patient, Regarding diagnosis, Regarding diagnostic results, Regarding treatment plan, Regarding prescription, Patient indicated understanding of instructions. Orders: Discharge Order(12/08/2017 22:57:00 EDT, to Home/Self Care). Electronically Signed on 12/08/2017 22:57 EDT AVERY LIZAMA MD Modified by: AVERY LIZAMA MD on 12/08/2017 22:57 EDT documented in this encounter Plan of Treatment Not on file documented as of this encounter Procedures Procedure Name Priority Date/Time Associated Diagnosis Comments I-STAT CHEM8+ Routine 12/08/2017 9:36 PM EDT I-STAT TROPONIN Routine 12/08/2017 9:34 PM EDT XR CHEST PA LATERAL Routine 12/08/2017 9 :10 PM EDT URINALYSIS W/MICRO & REFLEX TO CULTURE Routine 12/08/2017 8:52 PM EDT DIFFERENTIAL Routine 12/08/2017 8:52 PM EDT CBC AND DIFFERENTIAL Routine 12/08/2017 8:52 PM EDT LIPASE Routine 12/08/2017 8:52 PM EDT COMPREHENSIVE METABOLIC PANEL Routine 12/08/2017 8:52 PM EDT documented in this encounter Results * I-STAT CHEM8+ (12/08/2017 9:36 PM EDT) Sodium (I-Stat) 142 136 - 144 mmol/L [facility] Potassium (I-Stat) 4.0 3.5 - 4.9 mmol/L [facility] Chloride (I-STAT) 103 101 - 111 mmol/L [facility] Anion Gap (I-STAT) 17 7 - 23 mmol/L [facility] Glucose (I-STAT) 97 70 - 100 mg/dL [facility] BUN (I-STAT) 16 6 - 26 mg/dL [facility] Hemoglobin (I-Stat) 15.3 12.0 - 17.0 g/dL [facility] Comment:Dive Master Name: Yeimi Hill Hematocrit (I-Stat) 45 39 - 51 % [facility] Calcium, Ion (I-Stat) 4.8 4.5 - 5.3 mg/dL [facility] TCO2 (I-Stat Arterial) 27 24 - 29 mmol/L [facility] Creatinine (I-STAT) 1.0 0.6 - 1.3 mg/dL [facility] 12/08/2017 9:36 PM EDT us Historical Provider POINT OF CARE TEST ORDERA BLES Final Result [facility] [address], [place] [phone] * I-Stat Troponin (12/08/2017 9:34 PM EDT) Troponin (I-STAT) 0.02 0.01 - 0.04 ng/mL [facility] Comment:Dive Master Name: Yeimi Hill 12/08/2017 9:34 PM EDT us Historical Provider POINT OF CARE TEST ORDERA BLES Final Result Performing Organization Address City/[facility]/ZIP Co de Phone Number [facility] [address], [place] [phone] * XR Chest PA Lateral (12/08/2017 9:10 PM EDT) Anatomical Region Laterality Modality Chest Computed Radiogr aphy 12/08/2017 9:10 PM EDT Narrative 12/08/2017 9:51 PM EDT INDICATION: ??Chest pain. TECHNIQUE: ??Frontal and lateral chest. COMPARISON: ??None Available. FINDINGS: Cardiac silhouette is normal in size. ??No pulmonary edema, pleural effusion, pneumothorax, or consolidation. ? Impression: No radiographic evidence of acute cardiopulmonary process. Signed by Yadiel Hameed MD Final Dictated by: ?YADIEL HAMEED MD, MD Dictated DT/TM: 12/08/2017 09:50 pm EDT Signed by: ??YADIEL HAMEED MD, MD Signed (Electronic Signature): ??12/08/2017 09:50 pm EDT Procedure Note System, Provider Not In - 01/17/2019 INDICATION: Chest pain. TECHNIQUE: Frontal and lateral chest. COMPARISON: None Available. FINDINGS: Cardiac silhouette is normal in size. No pulmonary edema, pleuraleffusion, pneumothorax, or consolidation. Impression: No radiographic evidence of acute cardiopulmonary process. Signed by Yadiel Hameed MD Final Dictated by: YADIEL HAMEED MD, MD Dictated DT/TM: 12/08/2017 09:50 pm EDT Signed by: YOSEPH RICHARDS, YADIEL Leon MD Signed (Electronic Signature): 12/08/2017 09:50 pm EDT Avery Lizama MD IMG DIAGNOSTIC IMAGING OR DERABLES Final Result * Lipase (12/08/2017 8:52 PM EDT) [facility] Lipase 33.0 22.0 - 51.0 unit/L [facility] 12/08/2017 8:52 PM EDT Historical Provider LAB BLOOD ORDERABLES Raina l Result Performing Organization Address City/[facility]/ZIP Co de Phone Number [facility] [address], [place] [phone] * Urinalysis w/Micro & Reflex to Culture (12/08/2017 8:52 PM EDT) [facility] Color, UA YELLOW [facility] Appearance (Urine) Clear Clear [facility] Glucose, Qualitative (Urine) NEGATIVE [facility] Bilirubin Urine NEGATIVE [facility] Ketones, UA [facility] Specific [place], Urine 1.020 [facility] Blood, UA NEGATIVE [facility] pH, Urine 6.5 [facility] Protein, Urine NEGATIVE [facility] Urobilinogen, UA 0.2 BRA [facility] Nitrite (Urine) NEGATIVE [facility] Leukocytes, UA NEGATIVE [facility] REFLEXIVE URINE CULTURE No [facility] Dipstick Type? Auto [facility] Reflex Microscopic Type? Not Reqd [facility] 12/08/2017 8:52 PM EDT Historical Provider URINE ORDERABLES Final Re sult Performing Organization Address City/[facility]/ZIP Co de Phone Number [facility] [address], [place] [phone] * (ABNORMAL) Differential (12/08/2017 8:52 PM EDT) [facility] Neutrophil Percent 56.3 45.0 - 75.0 % [facility] Lymphocyte Percent 28.2 15.0 - 41.0 % [facility] Monocyte Percent 12.3(H) 0.0 - 12.0 % [facility] Eosinophil Percent 2.7 0.0 - 8.0 % [facility] Basophil Percent 0.5 0.0 - 2.0 % [facility] Neutrophil Number 3.8 2.1 - 8.0 x10E3/mcL [facility] Lymphocyte Number 1.9 0.7 - 4.4 x10E3/mcL [facility] Monocyte Number 0.8 0.0 - 1.0 x10E3/mcL [facility] Eosinophil Number 0.2 0.0 - 0.5 x10E3/mcL [facility] Basophil Number 0.0 0.0 - 2.0 x10E3/mcL [facility] 12/08/2017 8:52 PM EDT us Historical Provider LAB BLOOD ORDERABLES Raina l Result Performing Organization Address City/State/[facility] Co de Phone Number [facility] [address], [place] [phone] * CBC and Differential (12/08/2017 8:52 PM EDT) [facility] MCH 30.6 27.0 - 31.0 pg [facility] MCHC 34.8 32.0 - 36.0 g/dL [facility] Platelets 174 130 - 450 x10E3/[facility] MPV 8.3 7.4 - 10.4 fL [facility] RDW 13.8 11.5 - 14.5 % [facility] WBC 6.8 4.8 - 10.8 x10E3/mcL [facility] RBC 5.29 4.70 - 6.10 x10E6/mcL [facility] Hemoglobin 16.2 13.0 - 17.0 g/dL [facility] Hematocrit 46.5 39.0 - 51.0 % [facility] MCV 87.9 80.0 - 94.0 fL [facility] 12/08/2017 8:52 PM EDT us Historical Provider LAB BLOOD ORDERABLES Raina chung Result [facility] [address], [place] [phone] * (ABNORMAL) Comprehensive Metabolic Panel (12/08/2017 8:52 PM EDT) eGFR >60 >=60 mL/min/1. 73 m2 [facility] Comment: GFR (GLOMERULAR FILTRATION RATE) IS REPORTED IN ML/MIN/1.73 M2. CALCULATION INCLUDES DATA INPUT OF PLASMA/SERUM CREATININE, AGE, RACE, AND GENDER.THE NKF STATES THE FOLLOWING INTERPRETATION OF GFR: GFR VARIES ACCORDING TO AGE, RACE, GENDER AND BODY SIZE; IN YOUNG ADULTS IT IS APPROXIMATELY 120-130 ML/MIN/1.73M2 AND DECLINES WITH AGE, ONLY VALID BETWEEN 18 & 70 YEARS OF AGE. BELOW 60 ML/MIN/1.73M2 COMPLICATIONS OF CKD MAY BE INCREASED. Glucose 97 70 - 100 mg/dL [facility] Comment: FASTING INTERPRETIVE RANGES: NON-DIABETIC ? < = 100 MG/DL PRE-DIABETIC ? 100 - 125 MG/DL DIABETIC ? > = 126 MG/DL NON-FASTING INTERPRETIVE RANGES: NON-DIABETIC ? < 140 MG/DL PRE-DIABETIC ? 140 - 199 MG/DL DIABETIC ?> = 200 MG/DL BASED ON [employer]AB[employer] (ADA) GUIDELINES Sodium 138 136 - 144 mmol/L [facility] Potassium 3.8 3.5 - 5.0 mmol/L [facility] Chloride 105 101 - 111 mmol/L [facility] CO2 26 23 - 30 mmol/L [facility] Anion Gap 11 7 - 23 mmol/L [facility] Calcium 8.8(L) 8.9 - 10.3 mg/dL [facility] BUN 16 6 - 26 mg/dL [facility] Creatinine 1.08 0.64 - 1.27 mg/dL [facility] BUN/Creatinine Ratio 15 10 - 20 ratio [facility] Total Protein 7.1 6.1 - 8.1 gm/dL [facility] Albumin 4.3 3.5 - 4.8 gm/dL [facility] Globulin 2.8 2.0 - 4.8 gm/dL [facility] Albumin/Globulin Ratio 1.5 0.7 - 1.5 ratio [facility] Total Bilirubin 0.6 0.0 - 1.5 mg/dL [facility] Alkaline Phosphatase 57 44 - 131 unit/L [facility] AST 24 15 - 41 unit/L [facility] ALT 36 17 - 63 unit/L [facility] eGFR Non- >60 >=60 mL/min/1. 73 m2 [facility] Comment: GFR (GLOMERULAR FILTRATION RATE) IS REPORTED IN ML/MIN/1.73 M2. CALCULATION INCLUDES DATA INPUT OF PLASMA/SERUM CREATININE, AGE, RACE, AND GENDER.THE NKF STATES THE FOLLOWING INTERPRETATION OF GFR: GFR VARIES ACCORDING TO AGE, RACE, GENDER AND BODY SIZE; IN YOUNG ADULTS IT IS APPROXIMATELY 120-130 ML/MIN/1.73M2 AND DECLINES WITH AGE, ONLY VALID BETWEEN 18 & 70 YEARS OF AGE. BELOW 60 ML/MIN/1.73M2 COMPLICATIONS OF CKD MAY BE INCREASED. 12/08/2017 8:52 PM EDT us Historical Provider LAB BLOOD ORDERABLES Raina chung Result [facility] [address], [place] [phone] documented in this encounter Visit Diagnoses Not on filedocumented in this encounter
--- OUTSIDE RECORDS SUMMARY | 2024-06-24 04:41 | XMS_ITS | Encounter Summary ---
Author Organization [facility] Address [address] [place] [address] Care Team Providers Care Cooperative Manager Name Role Phone Unavailable Primary Care Provider Unavailabl e Encounter Details Date Type Department Care Team (Late st Contact Info) Description 01/02/2019 Historical Results [facility] [address] [facility] [place] [address] Matthew Brooke MD [address] [place], [place] [id number] Social History Tobacco Use Types Packs/Day Years [...] Procedure Name Priority Date/Time Associated Diagnosis Comments ECG 12-LEAD Routine 12/08/2017 9:52 PM EDT documented in this encounter Results * ECG 12 lead (12/08/2017 9:52 PM EDT) Narrative [facility] - 12/08/2017 9:52 PM EDT ? [facility] ? Test Date: ?2017-12-08 Pat Name: ? CARTER MIREYA ? Department: ?Room: ? Gender: ? Female ? Invoice Clerk: ?? rsd : ?1965 ? Requested By: Order Number: [id number] ? Reading : ?? Jay Tolliver MD ? Measurements Intervals ?[place] ? Rate: ? 82 ? P: ?20 SD: ? 184 ?QRS: ?42 QRSD: ? 82 ? T: ?11 QT: ? 354 ? QTc: ?413 ? Interpretive Statements Normal sinus rhythm Normal ECG Confirmed by Jay Tolliver MD on 12-10-2017 20:46:00 EDT Procedure Note System, Provider Not In - 01/02/2019 [facility] Test Date: 2017-12-08 Pat Name: CARTER GOMES Department: Room: Gender: Female Invoice Clerk: stephanie : 1965 Requested By: Order Number: [id number] Reading MD: Jay Tolliver MD Measurements Intervals [place] Rate: 82 P: 20 SD: 184 QRS: 42 QRSD: 82 T: 11 QT: 354 QTc: 413 Interpretive Statements Normal sinus rhythm Normal ECG Confirmed by Jay Tolliver MD on 12-10-2017 20:46:00 EDT us Matthew Brooke MD ECG ORDERABLES Final Res ult [facility] [address] [place] [address] documented in this encounter Visit Diagnoses Not on filedocumented in this encounter
== END 2024-06-17 09:07 | disposition home or self-care (01) ==
PROVIDERS: Emergency Provider Nurse Practitioner Family
DX: J11.1 Influenza due to unidentified influenza virus with other respiratory manifestations (principal); Z20.822 Contact with and (suspected) exposure to COVID-19
CPT/HCPCS: 87426; 87804; 99203; G0463